=== PATIENT | male | born 1940 | race Caucasian/White ===

== ENCOUNTER 2022-11-09 10:54 | Outpatient (OUT) | payer MEDICARE, OTHER, SELFPAY ==
[2022-11-09 12:16] LABS: Prostate Specific Antigen Scrn 3.53 ng/mL (<=4.00)
== END 2022-11-09 10:55 | disposition home or self-care (01) ==
PROVIDERS: PCP Family Medicine; Visit Provider Family Medicine
DX: R97.20 Elevated prostate specific antigen [PSA] (principal); Z12.5 Encounter for screening for malignant neoplasm of prostate
CPT/HCPCS: 36415; G0103

== ENCOUNTER 2023-11-19 11:34 | Outpatient (OUT) | payer MEDICARE, OTHER, SELFPAY ==
[2023-11-19 12:33] LABS: Anion Gap 10.9; BUN Creatinine Ratio 21.4; Calcium 8.9 mg/dL (8.5-10.1); Carbon Dioxide 28.5 mmol/L (21.0-32.0); Chloride 104 mmol/L (98-107); Estimated GFR (African America >60 (>=60); Estimated GFR (Non-African Ame 55 (>=60); Glucose 99 mg/dL (74-106); Potassium 4.4 mmol/L (3.5-5.1); Sodium 139 mmol/L (136-145)
[2023-11-19 12:52] LABS: Prostate Specific Antigen Scrn 4.94 ng/mL (<=4.00)
== END 2023-11-19 11:35 | disposition home or self-care (01) ==
LOC: LAB 11:37
PROVIDERS: PCP Family Medicine; Visit Provider Family Medicine
DX: Z12.5 Encounter for screening for malignant neoplasm of prostate (principal); I10 Essential (primary) hypertension
CPT/HCPCS: 36415; 80048; G0103

== ENCOUNTER 2024-12-08 10:12 | Outpatient (OUT) | payer MEDICARE, OTHER, SELFPAY ==
--- OUTSIDE RECORDS SUMMARY | 2019-09-27 06:30 | XMS_ITS | Continuity of Care Document ---
Author Organization [facility] Address [address] [place] [address] Phone Care Team Providers Care Paper Control Clerk Name Role Phone Rohan Cross MD Unavailable [...] Procedure Date OCT Retina Offic/outpt E&m [facility] Advance Directives Directive Yes / No Effective Date File Name No Information Encounters Encounter Description Practice Location Reason(s) For Visit Diagnoses Date Provider Providers Copied on Encounter Offic/outpt E&m [facility], [address], [place], [place], [id number], [place] tel:[phone] [facility] blurry vision (chief complaint) Unspecified visual field defectsVisual discomfort, left eyePuckering of macula, right eyeBenign neoplasm of left choroid Tay Madrigal. [address], [place], [address], [place]. tel:[phone] Specialist: Aure Coy OD, [address] [place], [address]. tel:[phone] ring Provider: Rohan Ingram, [address], [place], [address]. tel:[phone] Family History Family Member Type Diagnosis Age At Onset Father Problem (finding) prostate cancer Payers Payer name Insurance type Covered republican ID James vernon(s) Medicare Marissa GARCIAS [id number] Medical [place] [id number] Social History Type Description Quantity Date Captured Comments Alcohol Use Details No Caffeine Use Details No Tobacco Use Status Current non-smoker 20 Smoking Status Never smoker Non-Smoking Tobacco Use Details : No Details Available : No Details Available Sex Male Vital Signs Date / Time: Height Weight [...]
--- OUTSIDE RECORDS SUMMARY | 2024-06-28 12:03 | XMS_ITS ---
Author Organization [facility] [place] Address [address] [place] [address] Care Team Providers Care Certified Registered Nurse Anesthetist Name Role Phone Raegan Walker Primary Care Provider Bladimir Fischer [phone] REASON FOR VISIT SALES REPRESENTATIVES-Appointment Referral Encounters Encounter Location Date Provider Diagnosis Pulmonary Medicine [address] [address] 06/28/2024 Bladimir Carrillo Plan Of Treatment No Information Progress Notes * Troy OLIVARES LDOB:[birth year] (84 yo M)Acc No.[id number]:06/28/2024 Patient: Ida AMINYuriyTroy :1940 A ge:84 Y S ex:Male Address:[address] [address] * true * Date: Generated for Deny pacheco/Zuleika/eTransmitting on: 0 12/08/2024 10:20 AM EDT
--- OUTSIDE RECORDS SUMMARY | 2024-07-12 06:00 | XMS_ITS ---
Author Organization [facility] [place] Address [address] [place] [address] Care Team Providers Care Supervisor Frame Sample And Pattern Name Role Phone Raegan Walker Primary Care Provider Bladimir Fischer Unavailable [phone] Allergies Allergen (clinical drug ingredient) Drug/Non Drug Allergy documented on EMR Reaction Allergy Type Onset Date Status Sulfacet-R unknown Drug Allergy Active indomethacin Indomethacin unknown Drug Allergy A ctive trimethoprim Trimethoprim unknown Drug Allergy A ctive REASON FOR VISIT MULTIPLE COIL WINDER-COUGH Medications Medication SIG (Take, Route, Frequency, Duration) Notes Start Date End Date Status Xarelto 20 MG TAKE 1 TABLET BY UMNA TH DAILY with supper Oral for 90 Days Active FeroSul 325 (65 Fe) MG TAKE 1 TABLET BY MOUTH DAILY with BREAKFAST Oral for 30 Days Active Furosemide 20 MG TAKE 1 TABLET BY MUNA TH DAILY Oral for 90 Days Active Atorvastatin Calcium 10 MG TAKE 1 TABLET BY MOUTH DAILY Oral for 30 Days Active Esomeprazole Magnesium 20 MG 1 capsule 1/2 to 1 hour before morning meal Orally Once a day Active Allopurinol 300 MG Oral for 90 Days Active Clotrimazole-Betamethason e 1-0.05 % APPLY topically TWICE DAILY FOR 7 DAYS External for 7 Days Not-Taking amLODIPine Besylate 2.5 MG Oral for 74 Days Active Latanoprost 0.005 % INSTILL 1 DROP IN [place] TH EYES once a day IN THE EVENING Ophthalmic for 75 Days Not-Taking Cephalexin 500 MG TAKE 1 CAPSULE BY MO UTH TWICE DAILY Oral for 5 Days Not-Taking Albuterol Sulfate (2.5 MG/3ML) 0.083% INHALE 2.5ml's EVERY 4 TO 6 HOURS NEEDED SHORTNESS OF BREATH or FOR WHEEZING Inhalation for 6 Days Not-Taking Albuterol Sulfate HFA 108 (90 Base) MCG/ACT Inhalation for 17 Days Not-Taking Social History Tobacco Use: Social History Observation Description Date Details (start date - stop date) Never Smoker NA - NA Tobacco Control (Standard) Question Answer Notes Tobacco use: Nonsmoker Problems Problem Type SNOMED Code ICD Code Onset Dates Problem Status W/U Status Risk Notes Problem Coronary artery disease (42309711) CAD (coronary artery disease) (I25.10) Active confirmed Problem Gastroesophageal reflux disease (579332833) GERD (gastroesophage al reflux disease) (K21.9) Active confirmed Problem Hiatal hernia (88475806) Hiatal hernia (K44.9) Active confirmed Problem Iron deficiency anemia (07161048) GUS (iron deficiency anemia) (D50.9) Active confirmed Problem Alvares's esophagus (772373027) Alvares's esophagus (K22.70) Active confirmed Problem Chronic atrial fibrillation (962583723) Chronic atrial fibrillation (I48.20) Active confirmed Vital Signs Weight 192.4 lbs 07/12/2024 Height 70 in 07/12/2024 Blood pressure systolic 114 mm Hg 07/13/19 25 Blood pressure diastolic 71 mm Hg 025 Temperature 96.9 degrees Fahrenheit 07/13/19 25 Heart Rate 59 /min 07/12/2024 Respiratory Rate 16 /min 07/12/2024 BMI 27.6 kg/m2 07/12/2024 Oximetry 97 % 07/12/2024 Encounters Encounter Location Date Provider Diagnosis [facility] [address] [place] [address] 07/12/2024 Bladimir Carrillo Chronic cough R05.3 ; Abnormal CXR (chest x-ray) R93.89 ; Hiatal hernia K44.9 ; Chronic atrial fibrillation I48.20 ; GUS (iron deficiency anemia) D50.9 and CAD (coronary artery disease) I25.10 Assessments Encounter Date Diagnosis (ICD Code) Assessment Notes Treatment Notes Treatment Clinical Notes Section Notes 07/12/2024 Chronic cough (ICD-10 - R05.3) Patient complains of a cough off & on for years, mainly during the winter months, which he believes it is exacerbated by sinus congestion and drainage. Has not seen ENT. No allergy testing. Only nasal spray used is saline - denies Flonase or other medications. Explained to patient that there are several possibilities to explain his cough - undiagnosed asthma, allergic rhinitis/upper airway cough syndrome, and GERD/LPR associated with hiatal hernia. I stated further w/up can be done at this point to evaluate for asthma (PFT). He refused this. I also suggested starting a maintenance nasal spray (recommend intranasal steroid such as Flonase), but he refused this too. I noted that allergy testing is another option, and this was refused as well. I brought up the abnormal CT abdomen & CXRs and recommended ordering a dedicated chest CT - this was refused as well. He asked about referral to ENT - I explained this can be done, but more likely than not, they are going to repeat what I said, with exception of additionally performing a nasolaryngoscopy. For now, he may return PRN. 07/12/2024 Abnormal CXR (chest x-ray) (ICD-10 - R93.89) CT abdomen/pelvis 07/12/2022 noted opacities in the RLL, with scarring on CXR 04/02/2024 & 06/23/2024. With chronic cough, recommended ordering a dedicated chest CT for further evaluation, but he refused. 07/12/2024 Hiatal hernia (ICD-10 - K44.9) Large hiatal hernia. GERD/LPR symptoms are controlled, per patient, with Nexium. 07/12/2024 Chronic atrial fibrillation (ICD-10 - I48.20) 07/12/2024 GUS (iron deficiency anemia) (ICD-10 - D50.9) 07/12/2024 CAD (coronary artery disease) (ICD-10 - I25.10) Plan Of Treatment Treatment Notes Assessment Notes Chronic cough Patient complains of a cough off & on for years, mainly during the winter months, which he believes it is exacerbated by sinus congestion and drainage. Has not seen ENT. No allergy testing. Only nasal spray used is saline - denies Flonase or other medications. Explained to patient that there are several possibilities to explain his cough - undiagnosed asthma, allergic rhinitis/upper airway cough syndrome, and GERD/LPR associated with hiatal hernia. I stated further w/up can be done at this point to evaluate for asthma (PFT). He refused this. I also suggested starting a maintenance nasal spray (recommend intranasal steroid such as Flonase), but he refused this too. I noted that allergy testing is another option, and this was refused as well. I brought up the abnormal CT abdomen & CXRs and recommended ordering a dedicated chest CT - this was refused as well. He asked about referral to ENT - I explained this can be done, but more likely than not, they are going to repeat what I said, with exception of additionally performing a nasolaryngoscopy. For now, he may return PRN. Abnormal CXR (chest x-ray) CT abdomen/pelvis 07/12/2022 noted opacities in the RLL, with scarring on CXR 04/02/2024 & 06/23/2024. With chronic cough, recommended ordering a dedicated chest CT for further evaluation, but he refused. Hiatal hernia Large hiatal hernia. GERD/LPR symptoms are controlled, per patient, with Nexium. Next Appt Details Follow Up: PRN, Reason: Progress Notes * Troy OLIVARES LDOB:[birth year] (84 yo M)Acc No.[id number]:07/12/2024 New Patient Patient: Troy LONG Provider: Sabina Carrillo DO :1940 A ge:84 Y S ex:Male Date:07/12/2024 Address:[address] [place], [place] [id number] Pcp:Raegan Walker Check In:09:44 AM ESTCheck O ut:10:22 AM EST Subjective: * Chief Complaints: * N P-COUGH * HPI: G eneral: NEW PATIENT 84yo male presents with history of cough. The referral we received was for a cough ongoing since 02/2024, but the patient states he has had a chronic cough for much longer. He admits to developing a cough about every winter, mostly associated with sinus congestion and postnasal drip.? It can be quite productive, filling up a small jar with sputum at times. He denies any dyspnea, chest tightness, or wheezing. He was prescribed Keflex and Medrol which has significantly helped. His secretions changed from greenish-brown to clear. He does not feel that he has any significant symptoms at this time. Reviewed his history. 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 Admits to having some increased symptoms when taking beans out of the storage bin - he believes it could have been the mold. Cannot recall any other exacerbating factors during his farming days. Never worked in a factory. No history. No pets, never had birds. Main hobby is woodworking. [place] dust particularly aggravates his symptoms - he wears a mask now which pretty much eliminates any symptoms around the dust. He denies ever having allergy testing. He is a lifelong non-smoker. No history of asthma or COPD. He has a large hiatal hernia. This used to aggravate him, but since starting Nexium, he denies any symptoms. He has had imaging in the past. CT abdomen/pelvis 07/12/2022 notes Airspace opacities in the right lower lung. C XR 04/29/2024 noted scarring in the right lung which remained unchanged on F/U CXR 06/23/2024. MA Intake Comments:. Patient is referred from Dr.Marcia Walker for a Cough.Patient reports having the cough for as long as he can remember. Patient states the cough was productive with green mucus. Patient reports the mucus to be clear now. Patient reports taking an ABX to clear up the green mucus. Patient believes this is related to his sinuses. Patient denies hemoptysis, fevers, chills, night sweats or SOB. Patient reports never being seen by Pulmonary in the past. Patient is a non-smoker but reports being a benitez his entire life. Patient is under the care of [facility]. * ROS: G eneral/Constitutional: Fever or sweats d enies. C hange of appetite d enies. C hills d enies. W eight Change d enies. H EENT: Dry mouth d enies. S ore throat d enies. O ral Ulcers d enies. P ost Nasal Drip N ot currently. C ongestion N ot currently. H oarseness D enies. C ardiovascular: Tachycardia d enies. E jing D enies. C hest pain d enies. P alpitations d enies. R espiratory: Chest tightness d enies. P leurisy D enies. D yspnea d enies. C ough F eels he has to clear his throat. H emoptysis d enies. W heezing d enies. G astrointestinal: Acid Reflux/GERD/Heartburn C ontrolled with Nexium. D ysphagia d enies. M usculoskeletal: Arthralgias/joint pain D enies. S kin: Easy bruising d enies. R laine d enies. ? N eurologic: Seizures d enies. T remor d enies. H ematology: Abnormal Bleeding d enies. P sychiatric: Anxiety d enies. * Active Problem List K21.9 GERD (gastroesophage al reflux disease) Modified On:07/12/2024U Status:confirmed I25.10 CAD (coronary artery disease) Modified On:07/12/2024U Status:confirmed K44.9 Hiatal hernia Modified On:07/12/2024U Status:confirmed D50.9 GUS (iron deficiency anemia) Modified On:07/12/2024U Status:confirmed K22.70 Alvares's esophagus Modified On:07/12/2024U Status:confirmed I48.20 Chronic atrial fibri llation Modified On:07/12/2024 Status:confirmed * Medical History: * Surgical History: L eft heart catheterization 4Right wrist 2022Finger 2018Bilateral shoulder arthroscopy 2010Right leg 1965Lumbar fusion 10/14/2020olonoscopy 2022Varicose vein sclerotherapy Tonsillectomy * Hospitalization/Major Diagno stic Procedure: D enies Past Hospitalization * Family History: B rupaler(s): Parkinsons. F ather: diagnosed with Prostate cancer. 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 D rugs/Alcohol: D rugs H ave you used drugs other than those for medical reasons in the past 12 months? N o D oes the Patient have a History of Drug Abuse in the Past? N o Caffeine I ntake: n one Do you drink alcohol?: No. Do you smoke marijuana?: Denies. * Medications: T akingAllopurinol 300 MG Tablet Oral amLODIPine Besylate 2.5 MG Tablet Oral Atorvastatin Calcium 10 MG Tablet TAKE 1 TABLET BY MOUTH DAILY Oral Esomeprazole Magnesium 20 MG Capsule Delayed Release 1 capsule 1/2 to 1 hour before morning meal Orally Once a day FeroSul(Ferrous Sulfate) 325 (65 Fe) MG Tablet TAKE 1 TABLET BY MOUTH DAILY with BREAKFAST Oral Furosemide 20 MG Tablet TAKE 1 TABLET BY MOUTH DAILY Oral Xarelto(Rivaroxaban) 20 MG Tablet TAKE 1 TABLET BY MOUTH DAILY with supper Oral Taking Allopurinol 300 MG Tablet Oral Taking amLODIPine Besylate 2.5 MG Tablet Oral Taking Atorvastatin Calcium 10 MG Tablet TAKE 1 TABLET BY MOUTH DAILY Oral Taking Esomeprazole Magnesium 20 MG Capsule Delayed Release 1 capsule 1/2 to 1 hour before morning meal Orally Once a day Taking FeroSul(Ferrous Sulfate) 325 (65 Fe) MG Tablet TAKE 1 TABLET BY MOUTH DAILY with BREAKFAST Oral Taking Furosemide 20 MG Tablet TAKE 1 TABLET BY MOUTH DAILY Oral Taking Xarelto(Rivaroxaban) 20 MG Tablet TAKE 1 TABLET BY MOUTH DAILY with supper Oral Not-Taking/PRNAlbuterol Sulfate (2.5 MG/3ML) 0.083% Nebulization Solution INHALE 2.5ml's EVERY 4 TO 6 HOURS NEEDED SHORTNESS OF BREATH or FOR WHEEZING Inhalation Albuterol Sulfate HFA 108 (90 Base) MCG/ACT Aerosol Solution Inhalation Cephalexin 500 MG Capsule TAKE 1 CAPSULE BY MOUTH TWICE DAILY Oral Clotrimazole-Betamethasone 1-0.05 % Cream APPLY topically TWICE DAILY FOR 7 DAYS External Latanoprost 0.005 % Solution INSTILL 1 DROP IN BOTH EYES once a day IN THE EVENING Ophthalmic Medication List reviewed and reconciled with the patientNot-Taking/PRN Albuterol Sulfate (2.5 MG/3ML) 0.083% Nebulization Solution INHALE 2.5ml's EVERY 4 TO 6 HOURS NEEDED SHORTNESS OF BREATH or FOR WHEEZING Inhalation Not-Taking/PRN Albuterol Sulfate HFA 108 (90 Base) MCG/ACT Aerosol Solution Inhalation Not-Taking/PRN Cephalexin 500 MG Capsule TAKE 1 CAPSULE BY MOUTH TWICE DAILY Oral Not-Taking/PRN Clotrimazole-Betamethasone 1-0.05 % Cream APPLY topically TWICE DAILY FOR 7 DAYS External Not-Taking/PRN Latanoprost 0.005 % Solution INSTILL 1 DROP IN BOTH EYES once a day IN THE EVENING Ophthalmic Medication List reviewed and reconciled with the patient * Allergies: I ndomethacin: unknown - AllergySulfacet-R: unknown - AllergyTrimethoprim: unknown - Allergyno[Allergies Verified] Objective: * Vitals: W t:192.4lbs, Ht:70in, BP:sittin/71mm Hg, Temp:Forehead:96.9F, HR:59/min, RR:16/min, BMI:27.6Index, Oxygen sat %:Room Air:97%, Ht-cm: 177.8 cm, Wt-k.27 kg. * Examination: E xam: GENERAL APPEARANCE: A ppears stated age. Skin N ormal. Mouth P ink and moist. Oropharynx M allampati Class III. Trachea M idline. Chest N ormal. Respiratory Normal M ovements, E ffort N ormal. Auscultation N o wheezes or rhonchi. Mildly scattered crackles in the right base - not classic dry crackles as heard in fibrosis. Cardiac I rregularly irregular. Gastrointestinal N ormal. Vascular N o edema. Musculoskeletal N ormal posture. Neurological F ocal, intact. Psychiatric A lert and oriented x3. Mentation/Cognition N ormal. Assessment: * Assessment: 1. C hronic cough - R05.3 (Primary) 2 . A bnormal CXR (chest x-ray) - R93.89 3 . H iatal hernia - K44.9 4 . C hronic atrial fibrillation - I48.20 5 . I DA (iron deficiency anemia) - D50.9 6 . C AD (coronary artery disease) - I25.10 Plan: * Treatment: 2. A bnormal CXR (chest x-ray) Notes: CT abdomen/pelvis 07/12/2022 noted opacities in the RLL, with scarring on CXR 04/02/2024 & 06/23/2024. With chronic cough, recommended ordering a dedicated chest CT for further evaluation, but he refused. 3. H iatal hernia Notes: Large hiatal hernia. GERD/LPR symptoms are controlled, per patient, with Nexium. * Procedure Codes: * Preventive Medicine: COVID Vaccination: H as patient had COVID Vaccination? COVID Vaccination Y es 01/04/2021 Immunization Status: P neumovacc p neumovacc -11/27/2015. I nfluenza 0 04/07/2024. Z ostivax 0 04/07/2024. B oostrix 1 . Screenings/Counseling: F ALL RISK SCREENING Fall Risk Assessment: N o falls in the past year Are you afraid of falling? N o T OBACCO ACTION PLAN Exclusion: M edical Reason Non Smoker Type of Medical Reason: N ot indicated B DE ACTION PLAN Above Normal BMI Follow-up D ietary management education, guidance, and counseling * Follow Up: P RN * * Sign off status: Completed Visit Status: C HK (Check Out) true * Provider: Sabina Carrillo DO Date: 0 07/12/2024 Generated for Deny pacheco/Zuleika/eTalmasmitting on: 0 12/08/2024 10:18 AM EDT History and Physical Notes * HPI (History of Present Illness) Category Sub-Category Detail Notes Category Not es General Patient is refe rred from Dr.Marcia Walker for a Cough.Patient reports having the cough for as long as he can remember. Patient states the cough was productive with green mucus. Patient reports the mucus to be clear now. Patient reports taking an ABX to clear up the green mucus. Patient believes this is related to his sinuses. Patient denies hemoptysis, fevers, chills, night sweats or SOB. Patient reports never being seen by Pulmonary in the past. Patient is a non-smoker but reports being a benitez his entire life. Patient is under the care of [facility] Cardiology. Examination Category Sub-Category Detail Notes Category Not es Exam GENERAL APPEARANCE: Appears stated age Skin Normal Mouth [place] and moist Trachea Midline Chest Normal Respiratory Normal Movements, Ef fort Normal Auscultation No wheezes or rhonch i. Mildly scattered crackles in the right base - not classic dry crackles as heard in fibrosis Cardiac Irregularly irregula r Gastrointestinal Normal Vascular No edema Musculoskeletal Normal posture Neurological Focal, intact Psychiatric Alert and oriented x 3 Mentation/Cognition Normal Oropharynx Mallampati Class III
--- OUTSIDE RECORDS SUMMARY | 2024-12-08 10:18 | XMS_ITS | Encounter Summary ---
Author Organization [facility] Address [address] [place] [address] Care Team Providers Care Zone Manager Name Role Phone Raegan Walker MD Primary Care Provider [phone] Source Comments In the event this information is protected by the Federal Confidentiality of Alcohol and Drug AbusePatient Records regulations: The Federal rules restrict any use of the information to criminally investigate or prosecute any alcohol or drug abuse patient.[facility] Encounter Details Date Type Department Care Team (Latest Contact Info) Description 06/26/2021 H&P External-NonCCF Provider, External, PA-C Do not enter address information under generic External Provider. Social History Tobacco Use Types Packs/Day Years Used Date Smoking Tobacco: Never Assessed Sex and Gender Information Value Date Recorded Sex Assigned at Not on file Legal Sex Male 12:50 PM EDT Gender Identity Not on file Sexual Orientation Not on file documented as of this encounter Plan of Treatment Not on file documented as of this encounter Visit Diagnoses Not on filedocumented in this encounter Care Teams Zone Manager Relationship Specialty Start Date End Date Raegan Walker MD [address] [place] [address] PCP - General Family Medicine 06/26/21 documented as of this encounter
--- OUTSIDE RECORDS SUMMARY | 2024-12-08 10:18 | XMS_ITS | Encounter Summary ---
Author Organization [facility] Address [address], [address] [place] [address] Care Team Providers Care Kennel Hand Name Role Phone Raegan Walker MD Primary Care Provider [phone] Encounter Details Date Type Department Care Team (Late st Contact Info) Description 02/16/2024 Orders Only [facility] UROLOGY Part of [address] [place] [address] Provider, MD Gerardo Social History Tobacco Use Types Packs/Day Years Used Date Smoking Tobacco: Never Smokeless Tobacco: Never Alcohol Use Standard Drinks/Week Comments No 0 (1 standard drink = 0.6 oz pur e alcohol) AUDIT-C Answer Date Recorded Q1: How often do you have a drink containing alcohol? Never 03/29/2023 Q2: How many drinks containi ng alcohol do you have on a typical day when you are drinking? Patient does not drink Q3: How often do you have si x or more drinks on one occasion? Never 03/29/2023 Interpersonal Safety Domain Source: IP Abuse Scr eening Answer Date Recorded Read-Only, Retired: Physical Abuse Denies 11/15/2022 Read-Only, Retired: Verbal Abuse Denies 11/15/2022 Read-Only, Retired: Emotional abuse Denies 11/15/2022 Read-Only, Retired: Financial Abuse Denies 11/15/2022 Read-Only, Retired: Sexual abuse Denies 11/15/2022 Sex and Gender Information Value Date Recorded Sex Assigned at Male 03/29/2023 12:10 PM EST Legal Sex Male 9:49 PM EST Gender Identity Male 03/29/2023 12:10 PM EST Sexual Orientation Straight 03/29/2023 12 :10 PM EST documented as of this encounter Plan of Treatment Upcoming Encounters Date Type Department Care Team (Late st Contact Info) Description 04/28/2025 9:30 AM EST Office Visit [facility] Patient Care Technician [address] [place] [address] Miesha Clark, DRUG ENFORCEMENT ADMINISTRATION AGENT - SEWING MACHINE OPERATOR PLASTIC ZIPPER [address] [place] [address] 1 year follow up labs ekg cxr 08/16/2025 10:00 AM EDT Office Visit [facility] UROLOGY Part of [address] [place] [address] Tuyet Obrien, DRUG ENFORCEMENT ADMINISTRATION AGENT - SEWING MACHINE OPERATOR PLASTIC ZIPPER [address] [place] [address] [address] [place] [address] 1 year PSA documented as of this encounter Procedures Procedure Name Priority Date/Time Associated Diagnosis Comments PSA SCREENING Routine 11/09/2022 2:21 PM EDT documented in this encounter Results * PSA Screening (11/09/2022 2:21 PM EDT) Blood BLOOD SPECIMEN / Unknown us Historical Provider CHEMISTRY ORDERABLES Liza l Result documented in this encounter Visit Diagnoses Not on filedocumented in this encounter Additional Health Concerns Assessment Noted Time A Body Mass Index follow-up plan has been documented for the patient 12/06/2021 1:41 PM EDT documented as of this encounter Care Teams Kennel Hand Relationship Specialty Start Date End Date Raegan Walker MD PCP - General Family Medicine 09/18/19 documented as of this encounter
--- OUTSIDE RECORDS SUMMARY | 2024-12-08 10:18 | XMS_ITS | Encounter Summary ---
Author Organization [facility] Address [address] [place], [place] [address] Care Team Providers Care Manager Office Name Role Phone Raegan Walker MD Primary Care Provider [phone] Source Comments In the event this information is protected by the Federal Confidentiality of Alcohol and Drug AbusePatient Records regulations: The Federal rules restrict any use of the information to criminally investigate or prosecute any alcohol or drug abuse patient.[facility] Encounter Details Date Type Department Care Team ([facility] st Contact Info) Description 06/27/2021 Abstract Hematology/Oncology [address] [place] [address] [place] [address] Ketan Manzanares MD [address] [place] [address] Social History Tobacco Use Types Packs/Day Years [...] on filedocumented in this encounter Care Teams Manager Office Relationship Specialty Start Date End Date Raegan Walker MD [address] [place] [address] PCP - General Family Medicine 06/26/21 documented as of this encounter
--- OUTSIDE RECORDS SUMMARY | 2024-12-08 10:18 | XMS_ITS | Encounter Summary ---
Author Organization [facility] Address [address], [address] [place] [address] Care Team Providers Care Entry Level Account Manager Name Role Phone Raegan Walker MD Primary Care Provider [phone] Reason for Referral * Imaging (Routine) - Closed Specialty Diagnoses / Procedures Referred By Contac t Referred To Contact Radiology Diagnoses Cervical pain Procedures MRI CERVICAL SPINE WO CONTRAST Norman Michelle MD [address] [place] [address] Phone: tel: fax: Referral ID Status Reason Start Date Expiration Date Visits Re quested Visits Authorized [id number] Closed 05/15/2023 05/14/2024 1 1 Encounter Details Date Type Department Care Team (Latest Contact Info) Description 05/15/2023 Transcribe Orders [facility] [address] [place], [place] [id number] Norman Michelle MD [address] [place] [address] Cervical pain (Primary Dx) Social History Tobacco Use Types Packs/Day Years [...] Description 04/28/2025 9:30 AM EST Office Visit [facility] Hip Hop Dance Instructor [address] [place] [address] Miesha Clark APRN - GROUP EXERCISE MANAGER [address] [place] [address] 1 year follow up labs ekg cxr 08/16/2025 10:00 AM EDT Office Visit [facility] Part of [address] [place] [address] Tuyet Obrien, WINE PASTEURIZER - GROUP EXERCISE MANAGER [address] [place] [address] [address] [place] [address] 1 year PSA documented as of this encounter Results * MRI CERVICAL SPINE WO CONTRAST (05/26/2023 3:16 PM EST) Anatomical Region Laterality Modality C-spine, T-spine, Neck Magnetic Resonance 05/26/2023 8:44 PM EST Impressions 05/26/2023 8:47 PM EST Multilevel degenerative changes worst at C6-C7. Narrative 05/26/2023 8:47 PM EST EXAMINATION: MRI OF THE CERVICAL SPINE WITHOUT CONTRAST 05/26/2023 3:16 pm TECHNIQUE: Multiplanar multisequence MRI of the cervical spine was performed without the administration of intravenous contrast. COMPARISON: None. HISTORY: ORDERING SYSTEM PROVIDED HISTORY: Cervical pain FINDINGS: BONES/ALIGNMENT: There is normal alignment of the spine. The vertebral body heights are maintained. The bone marrow signal appears unremarkable. Grade 1 retrolisthesis of C6 on C7. SPINAL CORD: No abnormal cord signal is seen. SOFT TISSUES: No paraspinal mass identified. C2-C3: There is no significant disc protrusion, spinal canal stenosis or neural foraminal narrowing. C3-C4: Small central protrusion. Right greater than left facet hypertrophy. Moderate right and mild to moderate left foraminal stenosis. C4-C5: Left greater than right facet hypertrophy. Mild bilateral foraminal stenosis. C5-C6: Eifyi-jybbbnx-lyfk-left facet hypertrophy. Disc osteophyte complex effacing the ventral thecal sac. Mild spinal canal stenosis. Moderate right greater than left foraminal stenosis. C6-C7: Complete loss of disc space height. Disc osteophyte complex flattening the ventral surface of the cord. Mild spinal canal stenosis. Moderate left greater than right foraminal stenosis. C7-T1: There is no significant disc protrusion, spinal canal stenosis or neural foraminal narrowing. Procedure Note Rigoberto Solorzano MD - 05/26/2023 EXAMINATION: MRI OF THE CERVICAL SPINE WITHOUT CONTRAST 05/26/2023 3:16 pm TECHNIQUE: Multiplanar multisequence MRI of the cervical spine was performed withoutthe administration of intravenous contrast. COMPARISON: None. HISTORY: ORDERING SYSTEM PROVIDED HISTORY: Cervical pain FINDINGS: BONES/ALIGNMENT: There is normal alignment of the spine. The vertebralbody heights are maintained. The bone marrow signal appears unremarkable.Grade 1 retrolisthesis of C6 on C7. SPINAL CORD: No abnormal cord signal is seen. SOFT TISSUES: No paraspinal mass identified. C2-C3: There is no significant disc protrusion, spinal canal stenosis or neural foraminal narrowing. C3-C4: Small central protrusion. Right greater than left facethypertrophy. Moderate right and mild to moderate left foraminal stenosis. C4-C5: Left greater than right facet hypertrophy. Mild bilateralforaminal stenosis. C5-C6: Jbftd-ofxhkzg-cpep-left facet hypertrophy. Disc osteophytecomplex effacing the ventral thecal sac. Mild spinal canal stenosis. Moderateright greater than left foraminal stenosis. C6-C7: Complete loss of disc space height. Disc osteophyte complex flattening the ventral surface of the cord. Mild spinal canal stenosis. Moderate left greater than right foraminal stenosis. C7-T1: There is no significant disc protrusion, spinal canal stenosis or neural foraminal narrowing. IMPRESSION: Multilevel degenerative changes worst at C6-C7. us Norman Michelle MD IMG MRI ORDERABLES Final Result documented in this encounter Visit Diagnoses Diagnosis Cervical pain- Primary Cervicalgia Cervical pain Cervicalgia documented in this encounter Additional Health Concerns Assessment Noted Time A Body Mass Index follow-up plan has been documented for the patient 12/06/2021 1:41 PM EDT documented as of this encounter Care Teams Entry Level Account Manager Relationship Specialty Start Date End Date Raegan Walker MD PCP - General Family Medicine 09/18/19 documented as of this encounter
--- OUTSIDE RECORDS SUMMARY | 2024-12-08 10:18 | XMS_ITS | Encounter Summary ---
Author Organization [facility] Address [address], [address] [place] [address] Care Team Providers Care Informatics Educator Name Role Phone Raegan Walker MD Primary Care Provider Encounter Details Date Type Department Care Team (Late st Contact Info) Description 11/24/2024 Telephone QA on Request Clinical Project Leader [address] [place] [address] Wing Miller MD [address] [id number] Social History Tobacco Use Types Packs/Day Years Used Date Smoking Tobacco: Never Smokeless Tobacco: Never Alcohol Use Standard Drinks/Week Comments No 0 (1 standard drink = 0.6 oz pur e alcohol) AUDIT-C Answer Date Recorded Q1: How often do you have a drink containing alcohol? Never 03/14/2024 Q2: How many drinks containi ng alcohol do you have on a typical day when you are drinking? Patient does not drink Q3: How often do you have si x or more drinks on one occasion? Never 03/14/2024 Interpersonal Safety Domain Source: IP Abuse Scr [...] Description 04/28/2025 9:30 AM EST Office Visit [facility] Clinical Project Leader [address] [place] [address] Miesha Clark, CARD TAPE CONVERTER OPERATOR - SERVICE TRAINER [address] [place] [address] 1 year follow up labs ekg cxr 08/16/2025 10:00 AM EDT Office Visit [facility] Part of [address] [place] [address] Tuyet Obrien, CARD TAPE CONVERTER OPERATOR - SERVICE TRAINER [address] [place] [address] [address] [place] [address] 1 year PSA documented as of this encounter Visit Diagnoses Not on filedocumented in this encounter Additional Health Concerns Assessment Noted Time A Body Mass Index follow-up plan has been documented for the patient 12/06/2021 1:41 PM EDT documented as of this encounter Care Teams Informatics Educator Relationship Specialty Start Date End Date Raegan Walker MD PCP - General Family Medicine 09/18/19 documented as of this encounter
--- OUTSIDE RECORDS SUMMARY | 2024-12-08 10:18 | XMS_ITS | Encounter Summary ---
Author Organization [facility] Address [address] [facility] [place] [address] Care Team Providers Care Nailing Machine Operator Automatic Name Role Phone Raegan Walker MD Primary Care Provider [phone] Raegan Walker MD Primary Care Provider [phone] Raegan Walker MD Primary Care Provider [phone] Encounter Details Date Type Department Care Team (Late st Contact Info) Description 10/18/2022 Abstract [facility] [address] [place] [address] Juan C Gusman DPM [address] [place] [address] Social History Tobacco Use Types Packs/Day Years Used Date Smoking Tobacco: Never Smokeless Tobacco: Never Alcohol Use Standard Drinks/Week Comments Never 0 (1 standard drink = 0.6 oz pur e alcohol) Sex and Gender Information Value Date Recorded Sex Assigned at Not on file Legal Sex Male 6:49 PM EDT Gender Identity Not on file Sexual Orientation Not on file documented as of this encounter Plan of Treatment Upcoming Encounters Date Type Department Care Team (Late st Contact Info) Description 01/27/2025 9:15 AM EDT Procedure Visit [facility] [address] [place] [address] Juan C Gusman DPM [address] [place] [address] 03/11/2025 7:50 AM EST Office Visit [facility] [address] [place] [address] Natalie Cox, PA [address] [facility] [address] [place] [address] documented as of this encounter Visit Diagnoses Not on filedocumented in this encounter Care Teams Nailing Machine Operator Automatic Relationship Specialty Start Date End Date Raegan Walker MD PCP - General Family Medicine 10/18/22 07/14/24 Raegan Walker MD PCP - General Family Medicine 07/15/24 07/28/24 Raegan Walker MD [address] [place] [address] PCP - General Family Medicine 07/29/24 documented as of this encounter
--- OUTSIDE RECORDS SUMMARY | 2024-12-08 10:18 | XMS_ITS | Clinical Summary ---
Author Organization [facility] Address [address] [place] [address] Care Team Providers Care Bending Roll Hand Name Role Phone Raegan Walker MD Primary Care Provider Allergies Active Allergy Reactions Criticality Noted Date Comments Sulfamethoxazole-Trimethoprim Unknown 2021 Indomethacin Unknown 06/27/2021 Medications rivaroxaban (XARELTO) 20 mg tablet Take 20 mg by mouth daily with dinner. Active allopurinol (ZYLOPRIM) 300 mg tablet Take 300 mg by mouth once daily. Active meloxicam (MOBIC) 15 mg tablet Take 15 mg by mouth once daily. Active furosemide (LASIX) 20 mg tablet Take 20 mg by mouth once daily. Active fluticasone/umec lidin/vilanter (TRELEGY ELLIPTA INHALATION) Inhale as instructed. Active ferrous sulfate 325 mg (65 mg iron) tablet Take 325 mg by mouth. 12/18/2020 Active Omeprazole Magnesium 20 mg tablet Take 20 mg by mouth. Active spironolactone (ALDACTONE) 25 mg tablet Take 1 tablet by mouth once daily. 12/14/2020 Active CALCIUM ORAL Take by mouth. Active esomeprazole (NEXIUM) 20 mg capsule Take 20 mg by mouth DAILY (6 AM). Active Social History Tobacco Use Types Packs/Day Years Used Date Smoking Tobacco: Never Smokeless Tobacco: Never Alcohol Use Standard Drinks/Week Comments Not Currently 0 (1 standard drink = 0.6 oz pur e alcohol) Sex and Gender Information Value Date Recorded Sex Assigned at Not on file Legal Sex Male 12:50 PM EDT Gender Identity Not on file Sexual Orientation Not on file Last Filed Vital Signs Vital Sign Reading Time Taken Comments Blood Pressure 134/64 07/02/2021 10:53 AM EDT Pulse 65 07/02/2021 10:53 AM EDT Temperature 36.2 C (97.2 F) 07/02/2021 10:53 AM EDT Respiratory Rate 16 07/02/2021 10:5 3 AM EDT Oxygen Saturation 99% 07/02/2021 10: 53 AM EDT Inhaled Oxygen Concentration - - Weight 94.7 kg (208 lb 12.8 oz) 022 10:53 AM EDT Height 190 cm (6' 2.8 ) 07/02/2021 10:5 3 AM EDT Body Mass Index 26.24 07/02/2021 10:53 AM EDT Plan of Treatment Health Maintenance Due Date Last Done Comments Anxiety Screening 1958 Depression Screening 1958 Pneumococcal Vaccine: 50+ (1 of 1 - PCV) 1991 Shingrix Vaccine (1 of 2) 1991 RSV Vaccine (1 - 1-dose 75+ series) 2016 Advance Directive Discussion 03/31/2024 Diabetes Screening 07/02/2024 07/02/2021, 0 12/14/2020, 10/20/2020, Additional history exists Influenza Vaccine (#1) 2024 DTaP,Tdap,Td Vaccine (2 - Td or Tdap) 12/29/2025 12/30/2015 Procedures Procedure Name Priority Date/Time Associated Diagnosis Comments COMPREHENSIVE METABOLIC PANEL Routine 07/02/2021 10:49 AM EDT Normocytic anemia from Last 3 Months or Most Recently Relevant to Health Maintenance Results * (ABNORMAL) COMP METABOLIC PANEL (07/02/2021 10:49 AM EDT) Protein, Total 7.6 6.3 - 8.0 g/dL 07/02/2021 11:27 AM EDT [facility] Albumin 4.5 3.9 - 4.9 g/dL 07/02/2021 11:27 AM EDT [facility] Calcium, Total 9.7 8.5 - 10.2 mg/dL 07/02/2021 11:27 AM EDT [facility] Bilirubin, Total 0.5 0.2 - 1.3 mg/dL 07/02/2021 11:27 AM [facility] Alkaline Phosphatase 130(H) 38 - 113 U/L 07/02/2021 11:27 AM [facility] AST 20 14 - 40 U/L 07/02/2021 11:27 AM [facility] ALT 13 10 - 54 U/L 07/02/2021 11:27 AM [facility] Glucose 107(H) 74 - 99 mg/dL 07/02/2021 11:27 AM [facility] Comment: The [place] Diabetes Association (ADA) provides guidance for cutoff values for fasting glucose and random glucose. The ADA defines fasting as no caloric intake for at least 8 hours. Fasting plasma glucose results between 100 to 125 mg/dL indicate increased risk for diabetes (prediabetes). Fasting plasma glucose results greater than or equal to 126 mg/dL meet the criteria for diagnosis of diabetes. In the absence of unequivocal hyperglycemia, results should be confirmed by repeat testing. In a patient with classic symptoms of hyperglycemia or hyperglycemic crisis, random plasma glucose results greater than or equal to 200 mg/dL meet the criteria for diagnosis of diabetes. Reference: Standards of Medical Care in Diabetes 2016, [place] Diabetes Association. Diabetes Care. 2016.39(Suppl 1). BUN 22 9 - 24 mg/dL 07/02/2021 11:27 AM [facility] Creatinine 1.17 0.73 - 1.22 mg/dL 07/02/2021 11:27 AM [facility] Sodium 138 136 - 144 mmol/L 07/02/2021 11:27 AM [facility] Potassium 4.1 3.7 - 5.1 mmol/L 07/02/2021 11:27 AM [facility] Chloride 102 97 - 105 mmol/L 07/02/2021 11:27 AM [facility] CO2 27 22 - 30 mmol/L 07/02/2021 11:27 AM [facility] Anion Gap 9 9 - 18 mmol/L 07/02/2021 11:27 AM EDT [facility] Estimated Glomerular Filtration Rate 63 >=60 mL/min/1. 73m 07/02/2021 11:27 AM EDT [facility] Comment:Estimated Glomerular Filtration Rate (eGFR) is calculated using the 2020 CKD-EPI creatinine equation. This equation utilizes serum creatinine, sex, and age as parameters. The creatinine assay has traceable calibration to isotope dilution- mass spectrometry. Refer to KDIGO guidelines for clinical interpretation. In patients with unstable renal function, e.g. those with acute kidney injury, the eGFR may not accurately reflect actual GFR. Blood BLOOD SPECIMEN / Unknown Venipuncture / Unknown 07/02/2021 10:49 AM EDT 07/02/2021 10:49 AM EDT Ketan Manzanares MD LABORATORY Final Result [facility] [address] [place] [phone] from Last 3 Months or Most Recently Relevant to Health Maintenance Insurance MEDICARE [id number] [place] [address] MEDICARE SUPPLEMENT Care Teams Bending Roll Hand Relationship Specialty Start Date End Date Raegan Walker MD [address] [place] [address] PCP - General Family Medicine 06/26/21
--- OUTSIDE RECORDS SUMMARY | 2024-12-08 10:19 | XMS_ITS | Encounter Summary ---
Author Organization [facility] Address [address] [place] [address] Care Team Providers Care Fur Sorter Name Role Phone Raegan Walker MD Primary Care Provider [phone] Encounter Details Date Type Department Care Team (Late st Contact Info) Description 01/23/2024 Prep for Surgery [facility] Provider Cardiology [address] [place] [address] Ginnylynsey, Srinivas Pelaez MD [address] [place] [address] Social History Tobacco Use Types Packs/Day Years Used Date Smoking Tobacco: Never Alcohol Use Standard Drinks/Week Comments No 0 (1 standard drink = 0.6 oz pur e alcohol) Sex and Gender Information Value Date Recorded Sex Assigned at Not on file Legal Sex Male 12:52 PM EDT Gender Identity Not on file Sexual Orientation Not on file documented as of this encounter Plan of Treatment Not on file documented as of this encounter Visit Diagnoses Not on filedocumented in this encounter Care Teams Fur Sorter Relationship Specialty Start Date End Date Raegan Walker MD [address] [place] [address] [place] [address] PCP - General Family Medicine 12/30/15 documented as of this encounter
--- OUTSIDE RECORDS SUMMARY | 2024-12-08 10:19 | XMS_ITS | Patient Health Record ---
Author Organization [facility] [place] Address [address] [place] [address] Care Team Providers Care Pari Mutuel Clerk Name Role Phone Raegan Walker Primary Care Provider Bladimir Fischer [phone] Allergies Allergen (clinical drug ingredient) Drug/Non Drug Allergy documented on EMR Reaction Allergy Type Onset Date Status Sulfacet-R unknown Drug Allergy Active indomethacin Indomethacin unknown Drug Allergy A ctive trimethoprim Trimethoprim unknown Drug Allergy A ctive Reason For Referral No Information Medications Medication SIG (Take, Route, Frequency, Duration) Notes Start Date End Date Status Xarelto 20 MG TAKE 1 TABLET BY MUNA TH DAILY with supper Oral for 90 Days Active Albuterol Sulfate (2.5 MG/3ML) 0.083% INHALE 2.5ml's EVERY 4 TO 6 HOURS NEEDED SHORTNESS OF BREATH or FOR WHEEZING Inhalation for 6 Days Not-Taking FeroSul 325 (65 Fe) MG TAKE 1 [...] THE EVENING Ophthalmic for 75 Days Not-Taking Albuterol Sulfate HFA 108 (90 Base) MCG/ACT Inhalation for 17 Days Not-Taking Cephalexin 500 MG TAKE 1 CAPSULE BY [facility] TWICE DAILY Oral for 5 Days Not-Taking Immunizations Vaccine Route Administration Date Status Comme nts Flu, Fluad (43851) 65 yrs + High Dose Seasonal (1651-0143) Unknown 04/07/2024 Administered Pneumococcal (Pneumovax 23) Unknown 11/27/2015 Administ ered SARS-COV-2 (COVID 19 Pfizer 30mcg/0.3mL) Unknown 01/04/2021 Administered Tdap (Boostrix) Unknown 12/30/2015 Administered ZOSTER (SHINGLES) VACCINE (HZV) Unknown 04/07/2024 Admi nistered Social History Tobacco Use: Social History Observation Description Date Details (start date - stop date) Never Smoker NA - NA Tobacco Control (Standard) Question Answer Notes Tobacco use: Nonsmoker Problems Problem Type SNOMED Code ICD Code Onset Dates Problem Status W/U Status Risk Notes Problem Gastroesophageal reflux disease (563512615) GERD (gastroesophage al reflux disease) (K21.9) Active confirmed Problem Coronary artery disease (58714428) CAD (coronary artery disease) (I25.10) Active confirmed Problem Hiatal hernia (04228804) Hiatal hernia (K44.9) Active confirmed Problem Iron deficiency anemia (12326212) GUS (iron deficiency anemia) (D50.9) Active confirmed Problem Alvares's esophagus (973380639) Alvares's esophagus (K22.70) Active confirmed Problem Chronic atrial fibrillation (723433297) Chronic atrial fibrillation (I48.20) Active confirmed Vital Signs Heart Rate 59 /min 07/12/2024 Temperature 96.9 degrees Fahrenheit 07/12/2024 Respiratory Rate 16 /min 07/12/2024 Oximetry 97 % 07/12/2024 Blood pressure diastolic 71 mm Hg 07/12/2024 Height 70 in 07/12/2024 Blood pressure systolic 114 mm Hg 07/12/2024 Weight 192.4 lbs 07/12/2024 BMI 27.6 kg/m2 07/12/2024 Encounters Encounter Location Date Provider Diagnosis [facility] [address] [place] [address] 07/12/2024 Bladimir Carrillo Chronic cough R05.3 ; Abnormal CXR (chest x-ray) R93.89 ; Hiatal hernia K44.9 ; Chronic atrial fibrillation I48.20 ; GUS (iron deficiency anemia) D50.9 and CAD (coronary artery disease) I25.10 [facility] [address] [place] [address] 06/28/2024 Bladimir Carrillo Assessments Encounter Date Diagnosis (ICD Code) Assessment [...] disease) (ICD-10 - I25.10) Plan Of Treatment No Information Insurance Providers Payer Name Payer Address Payer Phone Subscriber Number Group Number Insured Name Patient Relationship to Insured Coverage Start Date Coverage End Date MEDICARE [place] [address] [phone] [id number] MarelyTroy shaw Self - patient is the insured 7 MMO MEDICARE SUPPLEMENT [address] [place] [address] [id number] MarelyTroy shaw Self - patient is the insured Medical (General) History Medical History History ICD Code CAD (coronary artery disease) I25.10 Chronic atrial fibrillation I48.20 HTN (hypertension) I10 Alvares's esophagus K22.70 Hiatal hernia K44.9 GERD (gastroesophageal reflux disease) K 21.9 GUS (iron deficiency anemia) D50.9 Gout M10.9 Bilateral cataracts H26.9 History of skin cancer Z85.828 Surgical History Surgery Date(Month/Year) Left heart catheterization 01/23/2024 Right wrist 2022 Finger 2018 Bilateral shoulder arthroscopy 2009 Right leg 1965 Lumbar fusion 10/14/2020 Colonoscopy 2022 Varicose vein sclerotherapy Tonsillectomy
--- OUTSIDE RECORDS SUMMARY | 2024-12-08 10:19 | XMS_ITS | Clinical Summary ---
Author Organization [facility] Address [facility] [place] [address] Care Team Providers Care Fingerer Name Role Phone Raegan Walker MD Primary Care Provider [phone] Allergies No known active allergies Medications allopurinoL (ZYLOPRIM) 300 MG tablet Take 1 (one) tablet (300 mg total) by mouth daily . Active aspirin 81 mg chewable tablet Chew and Swallow 1 (one) tablet (81 mg total) daily . 01/01/2024 Active cholecalciferol , vitamin D3, 50 mcg (2,000 unit) cap Take 2.5 (two and a half) capsules by mouth daily . 10/23/2021 Active furosemide (LASIX) 20 MG tablet Take 1 (one) tablet (20 mg total) by mouth daily . 10/23/2021 Active omeprazole 20 mg TbEC Take 1 (one) tablet (20 mg total) by mouth daily . Active Xarelto 20 mg Tab Take 1 (one) tablet (20 mg total) by mouth daily with dinner . Active atorvastatin (LIPITOR) 10 MG tablet Take 1 (one) tablet (10 mg total) by mouth daily . 30 tablet 11 01/23/2024 Active amLODIPine (NORVASC) 5 MG tablet Take 0.5 (one-half) tablet (2.5 mg total) by mouth daily . 15 tablet 11 01/23/2024 Active Active Problems No known active problems Encounters Date Type Department Care Team Description 10/05/2024 2:30 PM EDT Clinical Support [facility] Audiology [address] [facility] Office Building, [address]th [place] [address] Lizet Aden AuD Sensorineural hearing loss, bilateral (Primary Dx) 10/05/2024 1:45 PM EDT Office Visit [facility] [address] [place] [address] [place] [address] Sreedhar Zayas MD Sensorineural hearing loss, bilateral (Primary Dx); Impaired auditory discrimination, bilateral 10/05/2024 Travel from Last 3 Months Social History Tobacco Use Types Packs/Day Years [...] Sign Reading Time Taken Comments Blood Pressure 130/66 01/23/2024 12:25 PM EDT Pulse 65 01/23/2024 12:25 PM EDT Temperature 36.7 C (98 F) 10/05/2024 2:04 PM EDT Respiratory Rate 14 01/23/2024 8:28 AM EDT Oxygen Saturation 97% 01/23/2024 11:54 AM EDT Inhaled Oxygen Concentration - - Weight 93 kg (205 lb) 10/05/2024 2:04 PM EDT Height 188 cm (6' 2 ) 01/23/2024 8:28 AM EDT Body Mass Index 26.32 01/23/2024 8:28 AM EDT Plan of Treatment Health Maintenance Due Date Last Done Comments Medicare Wellness Visit 1944 Depression Screening/Follow- Up (PHQ-2/9) 1953 Falls Risk Assessment 2006 Respiratory Syncytial Virus Immunization: Risk, 60-74 Risk, or 75+ (1 - 1-dose 75+ series) 2016 COVID-19 Vaccine (2024-2 6 season) 2024 01/04/2021, 05/25/2020, 05/04/2020 Influenza Vaccine (#1) 2024 , 01/31/2023, 02/04/2022, Additional history exists Tetanus: Every 10yrs 12/29/2025 12/30/2015, 02/02/20 13 Pneumococcal Vaccine: Age 50+ Completed , 02/14/2020, 02/08/2019, Additional history exists Zoster Vaccines Completed 08/02/2024, 04/07/2024 Insurance MEDICARE PART A & B PART A CLAIMS [address] [address] [place] [address] [facility] Advance Directives For more information, please contact: [phone] * Full Code (Latest Code Status on File) Date Activated Date Inactivated Comments 01/23/2024 8:15 AM 01/23/2024 10:43 AM Care Teams Fingerer Relationship Specialty Start Date End Date Raegan Walker MD [facility] [facility] [place] [place] [address] [place] [address] PCP - General Family Medicine 12/30/15
--- OUTSIDE RECORDS SUMMARY | 2024-12-08 10:19 | XMS_ITS | Clinical Summary ---
Author Organization [facility] Healthcare Address [address] [place] [address] Care Team Providers Care First Beater Name Role Phone Raegan Walker MD Primary Care Provider [phone] Allergies Active Allergy Reactions Criticality Noted Date Comments Indomethacin Other 06/27/2021 Other reaction(s): Unknown Sulfa Antibiotics Unknown 10/17/2022 Trimethoprim Other 01/28/2024 Medications allopurinol (Zyloprim) 300 MG tablet 1 (one) time each day at the same time Active furosemide (Lasix) 20 MG tablet 1 (one) time each day at the same time Active esomeprazole (NexIUM) [address] capsule 1 capsule 1 (one) time each day at the same time Active eplerenone (Inspra) 25 MG tablet Take 25 mg by mouth Daily Active latanoprost (Xalatan) 0.005 % ophthalmic solution 3 Active amLODIPine (Norvasc) 2.5 MG tablet Take 1 tablet by mouth Daily Active aspirin 81 MG chewable tablet Chew 81 mg in the morning. 4 Active atorvastatin (Lipitor) 10 MG tablet Take 10 mg by mouth 4 Active Omeprazole 20 MG tablet delayed-release Take 20 mg by mouth in the morning. Active hydrocortisone 2.5 % creamIndications :Other specified dermatitis Apply topically 2 (two) times a day as needed (Rash) Apply thin layer to affected areas on the face bid prn for flares 30 g 1 4 Active Xarelto 20 MG tablet Take 20 mg by mouth in the evening. 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 10/18 Chronic obstructive pulmonary disease, unspecifi ed 12/20/2020 Chronic atrial fibrillation 12/08/2020 Gout 02/24/2019 Encounters Date Type Department Care Team Description 11/18/2024 2:15 PM EDT Office Visit [facility] [address] [place] [phone] Juan C Gusman DPM Corns and callosities (Primary Dx); Idiopathic progressive polyneuropathy; Hammer toe of left foot; Hallux valgus of left foot; Pain of toe of left foot 11/18/2024 Bamboo flowsheet [facility] [address] [place] [address] Juan C Gusman DPM 11/18/2024 Travel 11/10/2024 10:50 AM EDT [facility] [address] [place] [address] Natalie Cox PA Actinic keratosis (Primary Dx); Inflamed seborrheic keratosis 11/10/2024 Bamboo flowsheet [facility] [address] [place] [address] Natalie Cox PA 11/10/2024 Travel 10/21/2024 Telephone [facility] [address] [place] [phone] Isaias Naranjo MA 10/14/2024 Telephone [facility] [address] [place] [phone] Isaias Naranjo MA 09/28/2024 [facility]phone [facility] [address] [place] [address] Jani Skinner DO 09/27/2024 2:00 PM EDT Procedure Visit [facility] [address] [place] [address] Juan C Gusman, EDILBERTO Idiopathic progressive polyneuropathy (Primary Dx); Onychomycosis 09/27/2024 Bamboo flowsheet [facility] [address] [place] [address] Juan C Gusman DPM 09/27/2024 Travel from Last 3 Months Immunizations Immunization Administration Dates Next Due Pneumococcal Polysaccharide PPSV23 01/29/2021 Tdap 12/30/2015 Family History Medical History Relation Name Comments Cancer Father Cancer Father's Brother Cancer Father's Sister Melanoma Neg Hx Relation Name Status Comments Father Father's Brother Father's Sister Mother Social History Tobacco Use Types Packs/Day Years Used Date Smoking Tobacco: Never Passive Smoke Exposure: Never Smokeless Tobacco: Never Alcohol Use Standard Drinks/Week Comments Never 0 (1 standard drink = 0.6 oz pur e alcohol) Sex and Gender Information Value Date Recorded Sex Assigned at Not on file Legal Sex Male 6:49 PM EDT Gender Identity Not on file Sexual Orientation Not on file Last Filed Vital Signs Vital Sign Reading Time Taken Comments Blood Pressure 104/57 11/18/2024 2:15 PM EDT Pulse 63 11/18/2024 2:15 PM EDT Temperature - - Respiratory Rate 18 07/29/2024 2:05 PM EDT Oxygen Saturation - - Inhaled Oxygen Concentration - - Weight 88.5 kg (195 lb) 11/18/2024 2:15 PM EDT Height 182.9 cm (6') 11/18/2024 2:15 PM EDT Body Mass Index 26.45 11/18/2024 2:15 PM EDT Plan of Treatment Upcoming Encounters Date Type Department Care Team (Late st Contact Info) Description 01/27/2025 9:15 AM EDT Procedure Visit [facility] [address] [facility] [place] [address] Juan C Gusman, DPSteffany [address] [facility] [place] [address] 03/11/2025 7:50 AM EST Office Visit [facility] [address] [place] [address] Natalie Cox PA [address] [place] [address] Health Maintenance Due Date Last Done Comments Pneumococcal Vaccine: 65+ Ye ars (2 of 2 - PCV) 01/29/2022 01/29/2021, 11/27/2015 Influenza Vaccine (#1) 2024 04/07/2024, 2022 Procedures Procedure Name Priority Date/Time Associated Diagnosis Comments CRYOTHERAPY SKIN LESION Routine 11/11/19 10:59 AM EDT Inflamed seborrheic keratosis CRYOTHERAPY SKIN LESION Routine 11/11/19 10:58 AM EDT Actinic keratosis from Last 3 Months Results * Cryotherapy, skin lesion (11/10/2024 10:59 AM EDT) Natalie RIOS DERM PROCEDURE ORDERABLES Fin al Result * Cryotherapy, skin lesion (11/10/2024 10:58 AM EDT) Natalie [facility]OS [facility]ERM PROCEDURE ORDERABLES Fin al Result from Last 3 Months Insurance [employer] Care Teams First Beater Relationship Specialty Start Date End Date Raegan Walker MD [address] [place] [address] PCP - General Family Medicine 07/29/24
--- OUTSIDE RECORDS SUMMARY | 2024-12-08 10:19 | XMS_ITS | Clinical Summary ---
Author Organization [facility] Address [address] [facility], [address] [place] [address] Care Team Providers Care Can Solderer Name Role Phone Raegan Walker MD Primary Care Provider [phone] Allergies Active Allergy Reactions Criticality Noted Date Comments Indomethacin 06/27/2021 Other reaction(s): Unknown Sulfa Antibiotics 12/21/2020 Other reaction(s): Unknown Medications Omeprazole 20 MG TBEC Take 1 tablet by mouth daily Active allopurinol (ZYLOPRIM) 300 MG tablet Take 1 tablet by mouth daily Active latanoprost (XALATAN) 0.005 % ophthalmic solution INSTILL 1 DROP IN BOTH EYES once DAILY IN THE EVENING 2 Active Cholecalciferol (VITAMIN D) 50 MCG (2000 UT) CAPS capsule Take 5,000 Units by mouth daily Active aspirin 81 MG EC tablet Take 1 tablet by mouth daily Active amLODIPine (NORVASC) 2.5 MG tablet Take 1 tablet by mouth daily Active atorvastatin (LIPITOR) 10 MG tablet Take 1 tablet by mouth daily 4 Active colchicine (COLCRYS) 0.6 MG tablet Take 1 tablet by mouth daily 30 tablet 3 4 Active Additional Information Patient not taking.Reported on 08/16/2024 ferrous sulfate (IRON 325) 325 (65 Fe) MG tabletIndicatio ns:Iron deficiency anemia, unspecified iron deficiency anemia type Take 1 tablet by mouth daily (with breakfast) 90 tablet 3 5 Active rivaroxaban (XARELTO) 20 MG TABS tablet Take 1 tablet by mouth Daily with supper 90 tablet 3 5 Active furosemide (LASIX) 20 MG tablet Take 1 tablet by mouth 2 times daily 60 tablet 11 5 Active furosemide (LASIX) 20 MG tablet TAKE 1 TABLET BY MOUTH DAILY 90 tablet 3 5 025 Discontin ued(REORD ER) Active Problems Problem Noted Date Diagnosed Date Chronic obstructive pulmonary disease, unspecifi ed 12/20/2020 Chronic atrial fibrillation 12/08/2020 Pulmonary nodule 12/21/2019 Anemia 02/24/2019 Gout 02/24/2019 Encounters Date Type Department Care Team Description 11/24/2024 Telephone [facility] Advertising Intern [address] [place] [phone] Wing Miller MD 11/06/2024 Refill [facility] Advertising Intern [address] [place] [address] Wing Miller MD Medication Refill 10/14/2024 Refill [facility] Advertising Intern [address] [place] [address] Wing Miller MD Medication Refill from Last 3 Months Immunizations Immunization Administration Dates Next Due TDaP, ADACEL (age 10y-64y), BOOSTRIX (age 10y+), IM, 0.5mL 12/30/2015 Social History Tobacco Use Types Packs/Day Years Used Date Smoking Tobacco: Never Smokeless Tobacco: Never Tobacco Cessation:Counseling Given: Not Answered Alcohol Use Standard Drinks/Week Comments No 0 [...] Orientation Straight 03/29/2023 12 :10 PM EST Last Filed Vital Signs Vital Sign Reading Time Taken Comments Blood Pressure 122/68 08/16/2024 10:15 AM EDT Pulse 73 04/29/2024 11:21 AM EST Temperature 36.5 C (97.7 F) 08/16/2024 10:15 AM EDT Respiratory Rate 16 04/29/2024 11:21 AM EST Oxygen Saturation 92% 04/29/2024 11:21 AM EST Inhaled Oxygen Concentration - - Weight 88.5 kg (195 lb) 08/16/2024 10:15 AM EDT Height 188 cm (6' 2 ) 08/16/2024 10:15 AM EDT Body Mass Index 25.04 08/16/2024 10:15 AM EDT Plan of Treatment Upcoming Encounters Date Type Department Care Team (Late st Contact Info) Description 04/28/2025 9:30 AM EST Office Visit [facility] Advertising Intern [address] [place] [phone] Miesha Clark MARKETING RESEARCH ANALYST - GEODESIST [address] [place] [address] 1 year follow up labs ekg cxr 08/16/2025 10:00 AM EDT Office Visit [facility] Part of [address] [place] [address] Tuyet Obrien, MARKETING RESEARCH ANALYST - GEODESIST [address] [place] [address] [address] [place] [address] 1 year PSA Health Maintenance Due Date Last Done Comments Depression Screen 1952 Respiratory Syncytial Virus (RSV) or age 60 yrs+ (1 - 1-dose 75+ series) 2016 Annual Wellness Visit (Medicare) 02/24/2023 Shingles vaccine (2 of 2) 06/02/2024 04/07/2024 Flu vaccine (#1) 10/29/2024 04/07/2024, 05/2022, 02/04/2022, Additional history exists COVID-19 Vaccine ( - season) 2024 01/04/2021, 05/25/2020, 05/04/2020 Lipids 04/26/2025 04/26/2024, 11/30, 08/27/2023, Additional history exists DTaP/Tdap/Td vaccine (2 - Td or Tdap) 12/29/2025 12/30/2015, 12/30/2015, 02/01/2013 Pneumococcal 50+ years Vaccine Completed 01/29/2021, 02/14/2020, 02/08/2019, Additional history exists Hepatitis A vaccine Aged Out No longe r eligible based on patient's age to complete this topic Hepatitis B vaccine Aged Out No longe r eligible based on patient's age to complete this topic Hib vaccine Aged Out No longer eligi ble based on patient's age to complete this topic Meningococcal (ACWY) vaccine Aged Out No longer eligible based on patient's age to complete this topic Meningococcal B vaccine Aged Out No l onger eligible based on patient's age to complete this topic Polio vaccine Aged Out No longer elig ible based on patient's age to complete this topic Procedures Procedure Name Priority Date/Time Associated Diagnosis Comments LIPID PANEL Routine 04/26/2024 10:30 AM EST Atrial flutter, unspecified type (HCC) Vitamin D deficiency Encounter for lipid screening for cardiovascular disease Aortic valve stenosis, etiology of cardiac valve disease unspecified from Last 3 Months or Most Recently Relevant to Health Maintenance Results * Lipid Panel (04/26/2024 10:30 AM EST) Cholesterol, Total 113 0 - 199 mg/dL 04/26/2024 10:30 AM EST [facility] Comment: Cholesterol Guidelines: <200 Desirable 200-240 Borderline >240 Undesirable HDL 48 >40 mg/dL 04/26/2024 10:30 AM EST [facility] Comment: HDL Guidelines: <40 Undesirable 40-59 Borderline >59 Desirable LDL Cholesterol 54 0 - 100 mg/dL 04/26/2024 10:30 AM EST [facility] Comment: LDL Guidelines: <100 Desirable 100-129 Near to/above Desirable 130-159 Borderline >159 Undesirable Direct (measured) LDL and calculated LDL are not interchangeable tests. Chol/HDL Ratio 2.4 04/26/2024 10:30 AM EST [facility] Triglycerides 53 <150 mg/dL 04/26/2024 10:30 AM EST [facility] Comment: Triglyceride Guidelines: <150 Desirable 150-199 Borderline 200-499 High >499 Very high Based on AHA Guidelines for fasting triglyceride, December 2011. VLDL 11 1 - 30 mg/dL 04/26/2024 10:30 AM EST [facility] Blood BLOOD SPECIMEN / Unknown 04/26/2024 10:30 AM EST 04/26/2024 10:31 AM EST Wing Miller MD CHEMISTRY ORDERABLES Final Res ult [facility] [address] [place] [address], [facility] [phone] [facility] [phone] [id number], [facility] [phone] from Last 3 Months or Most Recently Relevant to Health Maintenance Insurance [employer] Care Teams Can Solderer Relationship Specialty Start Date End Date Raegan Walker MD PCP - General Family Medicine 09/18/19
--- OUTSIDE RECORDS SUMMARY | 2024-12-08 10:19 | XMS_ITS | Clinical Summary ---
Author Organization [facility] Address [address] [place] [address] Care Team Providers Care Supervisor Braiding Name Role Phone Unavailable Primary Care Provider Unavailabl e Social History Tobacco Use Types Packs/Day Years Used Date Smoking Tobacco: Never Assessed [place] Safety & Environment Answer Date Rec orded Fear of Current or Ex-Partner Not on file Emotionally Abused Not on file 05/22/2023 Physically Abused Not on file 05/22/2023 Sexually Abused Not on file 05/22/2023 Physically or Sexually Abused Not on file Sex and Gender Information Value Date Recorded Sex Assigned at Not on file Legal Sex Male 12:44 AM EDT Gender Identity Not on file Sexual Orientation Not on file Last Filed Vital Signs Vital Sign Reading Time Taken Comments Blood Pressure - - Pulse - - Temperature - - Respiratory Rate - - Oxygen Saturation - - Inhaled Oxygen Concentration - - Weight 90.7 kg (200 lb) 10/10/2021 1:31 PM EDT Height 189.2 cm (6' 2.5 ) 10/10/2021 1:30 PM EDT Body Mass Index 25.33 10/10/2021 1:30 PM EDT Plan of Treatment Health Maintenance Due Date Last Done Comments Medicare Annual Wellness (AWV) 1940 Depression Screening 1952 Adult Tetanus 1963 Pneumococcal Vaccine: 50+ Ye ars (1 of 1 - PCV) 1991 Zoster Vaccines (1 of 2) 1991 Fall Risk Screening 2006 COVID-19 Vaccine (2023-2 5 season) 2024 Influenza Vaccine (#1) 2024 HIB Vaccines Aged Out No longer eligi ble based on patient's age to complete this topic HPV Vaccines Aged Out No longer eligi ble based on patient's age to complete this topic IPV Vaccines Aged Out No longer eligi ble based on patient's age to complete this topic Meningococcal B Vaccine Aged Out No l onger eligible based on patient's age to complete this topic Meningococcal Vaccine Aged Out No charity arlene eligible based on patient's age to complete this topic Rotavirus Vaccines Aged Out No longer eligible based on patient's age to complete this topic Insurance [employer] [place] MEDICARE [place] [id number]
--- OUTSIDE RECORDS SUMMARY | 2024-12-08 10:20 | XMS_ITS | Encounter Summary ---
Author Organization [facility] Address [address] [facility], [address] [place] [address] Care Team Providers Care Street Commissioner Name Role Phone Raegan Walker MD Primary Care Provider [phone] Reason for Referral * Imaging (Routine) - Closed Specialty Diagnoses / Procedures Referred By Contac t Referred To Contact Radiology Diagnoses Lumbar radiculopathy Procedures MRI lumbar spine without contrast Norman Michelle MD [address] [facility] [place] [address] Phone: tel: Referral ID Status Reason Start Date Expiration Date Visits Re quested Visits Authorized [id number] Closed 06/22/2020 06/22/2021 1 1 Encounter Details Date Type Department Care Team (Latest Contact Info) Description 06/22/2020 Transcribe Orders [facility] [address] [phone] Norman Michelle MD [address] [facility] [address] [place] [address] Lumbar radiculopathy (Primary Dx) Social History Tobacco Use Types [...] Description 04/28/2025 9:30 AM EST Office Visit [facility] E/M Engineer [address] [place] [address] Miesha Clark, SOIL CONSERVATION TEACHER - TOWEL SORTER [address] [place] [address] 1 year follow up labs ekg cxr 08/16/2025 10:00 AM EDT Office Visit [facility] Part of [address] [place] [address] Tuyet Obrien, SOIL CONSERVATION TEACHER - TOWEL SORTER [address] [place] [address] [address] [place] [address] 1 year PSA documented as of this encounter Procedures Procedure Name Priority Date/Time Associated Diagnosis Comments MRI LUMBAR SPINE WO CONTRAST Routine 06/28/2020 10:22 AM EDT Lumbar radiculopathy documented in this encounter Results * MRI lumbar spine without contrast (06/28/2020 10:22 AM EDT) Anatomical Region Laterality Modality T-spine, L-spine, Pelvis Magneti c Resonance 06/28/2020 10:2 6 AM EDT Impressions 06/28/2020 10:32 AM EDT Multilevel degenerative disc disease and multilevel degenerative facet/ligamentous hypertrophy with canal stenosis at L3-4 and L4-5. Bilateral foraminal narrowing throughout the lumbar spine as described above. Lateral recess narrowing at L2-3, L3-4, and L4-5. Narrative 06/28/2020 10:32 AM EDT EXAMINATION: MRI OF THE LUMBAR SPINE WITHOUT CONTRAST, 06/28/2020 10:05 am TECHNIQUE: Multiplanar multisequence MRI of the lumbar spine was performed without the administration of intravenous contrast. COMPARISON: None. HISTORY: ORDERING SYSTEM PROVIDED HISTORY: Lumbar radiculopathy FINDINGS: BONES/ALIGNMENT: There is a minimal dextrocurvature of the lumbar spine. The vertebral body heights are maintained. There is age-appropriate bone marrow signal. There is multilevel degenerative disc disease with loss of disc signal. There is mild disc space narrowing at the L3-4 level. There is no spondylolisthesis. SPINAL CORD: The conus medullaris is normal in caliber and signal and terminates at the T12 level. The cauda equina is unremarkable. SOFT TISSUES: The posterior paraspinal soft tissues are unremarkable. The visualized abdominal structures are unremarkable. L1-L2: There is a circumferential disc bulge with facet hypertrophy. There is no significant canal stenosis or right foraminal narrowing. There is mild left foraminal narrowing. L2-L3: There is a circumferential disc bulge with facet ligamentous hypertrophy. There is no significant canal stenosis or right foraminal narrowing. There is moderate left foraminal narrowing. There is narrowing of the lateral recesses. L3-L4: There is a circumferential disc bulge with facet and ligamentous hypertrophy. There is canal stenosis measuring 8 mm in AP dimension. There is mild bilateral foraminal narrowing. There is narrowing of the lateral recesses. L4-L5: There is a circumferential disc bulge facet and ligamentous hypertrophy. There is canal stenosis measuring 6 mm in AP dimension. There is mild left and severe right foraminal narrowing. There is narrowing of the lateral recesses. L5-S1: There is no disc bulge or herniation. There is no canal stenosis or left foraminal narrowing. There is moderate to severe right foraminal narrowing. Procedure Note Chente Marc MD - 06/28/2020 EXAMINATION: MRI OF THE LUMBAR SPINE WITHOUT CONTRAST, 06/28/2020 10:05 am TECHNIQUE: Multiplanar multisequence MRI of the lumbar spine was performed withoutthe administration of intravenous contrast. COMPARISON: None. HISTORY: ORDERING SYSTEM PROVIDED HISTORY: Lumbar radiculopathy FINDINGS: BONES/ALIGNMENT: There is a minimal dextrocurvature of the lumbar spine.The vertebral body heights are maintained. There is age-appropriate bonemarrow signal. There is multilevel degenerative disc disease with loss of disc signal. There is mild disc space narrowing at the L3-4 level. There isno spondylolisthesis. SPINAL CORD: The conus medullaris is normal in caliber and signal and terminates at the T12 level. The cauda equina is unremarkable. SOFT TISSUES: The posterior paraspinal soft tissues are unremarkable.The visualized abdominal structures are unremarkable. L1-L2: There is a circumferential disc bulge with facet hypertrophy.There is no significant canal stenosis or right foraminal narrowing. There ismild left foraminal narrowing. L2-L3: There is a circumferential disc bulge with facet ligamentous hypertrophy. There is no significant canal stenosis or right foraminal narrowing. There is moderate left foraminal narrowing. There isnarrowing of the lateral recesses. L3-L4: There is a circumferential disc bulge with facet and ligamentous hypertrophy. There is canal stenosis measuring 8 mm in AP dimension.There is mild bilateral foraminal narrowing. There is narrowing of thelateral recesses. L4-L5: There is a circumferential disc bulge facet and ligamentous hypertrophy. There is canal stenosis measuring 6 mm in AP dimension.There is mild left and severe right foraminal narrowing. There is narrowing ofthe lateral recesses. L5-S1: There is no disc bulge or herniation. There is no canal stenosisor left foraminal narrowing. There is moderate to severe right foraminal narrowing. IMPRESSION: Multilevel degenerative disc disease and multilevel degenerative facet/ligamentous hypertrophy with canal stenosis at L3-4 and L4-5. Bilateral foraminal narrowing throughout the lumbar spine as describedabove. Lateral recess narrowing at L2-3, L3-4, and L4-5. Norman Michelle MD [facility] MRI ORDERABLES Final Result documented in this encounter Visit Diagnoses Diagnosis Lumbar radiculopathy- Primary Thoracic or lumbosacral neuritis or radiculitis, unspecified documented in this encounter Additional Health Concerns Infection Onset Date Last Indicated Resolved Time COVID-19 (Rule Out) 08/11/2020 08/11/2020 08/12/19 21 10:42 AM EDT COVID-19 (Rule Out) 07/13/2021 07/13/2021 07/15/19 22 11:57 AM EDT COVID-19 (Rule Out) 12/06/2021 12/06/2021 12/07/19 22 2:01 PM EDT COVID-19 (Rule Out) 12/06/2021 12/06/2021 12/07/19 22 2:17 PM EDT documented as of this encounter Care Teams Street Commissioner Relationship Specialty Start Date End Date Raegan Walker MD PCP - General Family Medicine 09/18/19 documented as of this encounter
--- OUTSIDE RECORDS SUMMARY | 2024-12-08 10:20 | XMS_ITS | Encounter Summary ---
Author Organization [facility] Address [address] [facility], [address] [place] [address] Care Team Providers Care Forest Resource Specialist Name Role Phone Raegan Walker MD Primary Care Provider [phone] Encounter Details Date Type Department Care Team (Late st Contact Info) Description 02/19/2024 Orders Only [facility] Part of [address] [place] [address] Provider, MD Gerardo Social History [...] Description 04/28/2025 9:30 AM EST Office Visit [facility] Liquor Runner [address] [place] [address] Miesha Clark, CREATIVE PERFUMER - COMPLIANCE ENGINEER [address] [place] [address] 1 year follow up labs ekg cxr 08/16/2025 10:00 AM EDT Office Visit [facility] Part of [address] [place] [address] Tuyet Obrien, CREATIVE PERFUMER - COMPLIANCE ENGINEER [address] [place] [address] [address] [place] [address] 1 year PSA documented as of this encounter Procedures Procedure Name Priority Date/Time Associated Diagnosis Comments PSA SCREENING Routine 11/19/2023 8:54 AM EDT documented in this encounter Results * PSA Screening (11/19/2023 8:54 AM EDT) Blood BLOOD SPECIMEN / Unknown us Historical Provider CHEMISTRY ORDERABLES Liza l Result documented in this encounter Visit Diagnoses Not on filedocumented in this encounter Additional Health Concerns Assessment Noted Time A Body Mass Index follow-up plan has been documented for the patient 12/06/2021 1:41 PM EDT documented as of this encounter Care Teams Forest Resource Specialist Relationship Specialty Start Date End Date Raegan Walker MD PCP - General Family Medicine 09/18/19 documented as of this encounter
--- OUTSIDE RECORDS SUMMARY | 2024-12-08 10:22 | XMS_ITS | CCD ---
Author Organization [facility] Care Team Providers Care Filing And Polishing Supervisor Name Role Phone SANDY MURILLO Unavailable Unavailable NITA HERNANDEZ Admitting Unavailable FAIZAN BRAGG Primary Care Unavailable Faizan Bragg Primary Care Provider NITA HERNANDEZ Attending Unavailable NITA HERNANDEZ Referring Unavailable FAIZAN BRAGG Primary Care Unavailable Faizan Bragg Primary Care Provider Faizan Bragg Primary Care Provider Faizan Bragg Primary Care Provider Faizan Bragg Primary Care Provider Faizan Bragg MD Primary Care Provider [phone] Faizan Bragg MD Primary Care Provider [phone] Faizan Bragg MD Primary Care Provider Faizan Bragg MD Primary Care Provider Mik Amaya Unavailable Faizan Bragg MD Primary Care Provider [phone] MD Faizan Bragg Primary Care Provider [phone] MD Mik Amaya Attending Provider [phone] Isrrael Greene Admitting Unavailable FAIZAN BRAGG Referring Unavailable FAIZAN BRAGG Primary Care Unavailable Isrrael Greene Attending Unavailable Faizan Bragg Unavailable DR FAIZAN BRAGG Attending Unavailable KAY, DR NITA Prieto Consulting Unavailable YEMI, DR FAIZAN Hernandez Primary Care Unavailable DR FAIZAN BRAGG Admitting Unavailable DR FAIZAN BRAGG Consulting Unavailable YEMI, DR FAIZAN Hernandez Admitting Unavailable BRAGG, DR FAIZAN Hernandez Attending Unavailable BRAGG, DR FAIZAN Hernandez Consulting Unavailable BRAGG, DR FAIZAN Hernandez Primary Care Unavailable HEGG, ZE Consulting Unavailable BRAGG, DR FAIZAN Hernandez Admitting Unavailable BRAGG, DR FAIZAN Hernandez Attending Unavailable BRAGG, DR FAIZAN Hernandez Consulting Unavailable BARGG, DR FAIZAN Hernandez Primary Care Unavailable BRAGG, DR FAIZAN Hernandez Attending Unavailable ZIEBER, DR NITA Prieto Consulting Unavailable BRAGG, DR FAIZAN Hernandez Primary Care Unavailable BRAGG, DR FAIZAN Hernandez Admitting Unavailable BRAGG, DR FAIZAN Hernandez Consulting Unavailable Le, Arturo Consulting Unavailable BRAGG, DR FAIZAN Hernandez Attending Unavailable BRAGG, DR FAIZAN Hernandez Consulting Unavailable BRAGG, DR FAIZAN Hernandez Primary Care Unavailable BRAGG, DR FAIZAN Hernandez Admitting Unavailable Bragg , Faizan Primary Care Provider Yemi DE LA PAZ, Faizan Primary Care Provider [phone] FAIZAN BRAGG Primary Care Physician Yemi DE LA PAZ, Faizan Primary Care Provider TRES ÁLVAREZ Attending Unavailab le VIGESAA, TRES CLIFFORD Admitting Unavailab le BRAGGFAIZAN Primary Care Unavailable Bragg , Faizan Primary Care Provider BRAGG, FAIZAN Primary Care Unavailable BRAGG, FAIZAN Primary Care Unavailable SHAW, MIESHA S Referring Unavailable BRAGG, FAIZAN Primary Care Unavailable BRAGG, FAIZAN Primary Care Unavailable BRAGG, FAIZAN Primary Care Unavailable VIGESAA, WING S Referring Unavailable BRAGG, FAIZAN Primary Care Unavailable BRAGG, FAIZAN Primary Care Unavailable VIGESAA, WING S Referring Unavailable SHAW, MIESHA S Referring Unavailable BRAGG, FAIZAN Primary Care Unavailable BRAGG, FAIZAN Primary Care Unavailable BRAGG, FAIZAN Primary Care Unavailable BRAGG, FAIZAN Primary Care Unavailable BRAGG, FAIZAN Primary Care Unavailable BRAGG, FAIZAN Primary Care Unavailable BRAGG, FAIZAN Primary Care Unavailable BRAGG, FAIZAN Primary Care Unavailable BRAGG, FAIZAN Primary Care Unavailable BRAGG, FAIZAN Primary Care Unavailable VIGESAA, WING S Attending Unavailable VIGESAA, WING S Referring Unavailable BRAGG, FAIZAN Primary Care Unavailable VIGESAA, WING S Referring Unavailable BRAGG, FAIZAN Primary Care Unavailable VIGESAA, WING S Attending Unavailable VIGESAA, WING S Referring Unavailable BRAGG, FAIZAN Primary Care Unavailable VIGESAA, WING S Attending Unavailable VIGESAA, WING S Referring Unavailable BRAGG, FAIZAN Primary Care Unavailable BRAGG, FAIZAN Primary Care Unavailable BRAGG, FAIZAN Primary Care Unavailable BRAGG, FAIZAN Primary Care Unavailable BRAGG, FAIZAN Primary Care Unavailable BRAGG, FAIZAN Primary Care Unavailable RBAGG, FAIZAN Primary Care Unavailable BRAGG, FAIZAN Primary Care Unavailable BRAGG, FAIZAN Primary Care Unavailable BRAGG, FAIZAN Primary Care Unavailable BRAGG, FAIZAN Primary Care Unavailable BRAGG, FAIZAN Primary Care Unavailable BRAGG, FAIZAN Primary Care Unavailable BRAGG, FAIZAN Primary Care Unavailable BRAGG, FAIZAN Primary Care Unavailable BRAGG, FAIZAN Primary Care Unavailable BRAGG, FAIZAN Primary Care Unavailable VIGESAA, WING S Referring Unavailable BRAGG, FAIZAN Primary Care Unavailable BRAGG, FAIZAN Primary Care Unavailable BRAGG, FAIZAN Primary Care Unavailable BRAGG, FAIZAN Primary Care Unavailable BRAGG, FAIZAN Primary Care Unavailable VIGESAA, WING S Referring Unavailable BRAGG, FAIZAN Primary Care Unavailable VIGESAA, WING S Attending Unavailable VIGESAA, WING S Referring Unavailable BRAGG, FAIZAN Primary Care Unavailable VIGESAA, WING S Referring Unavailable BRAGG, FAIZAN Primary Care Unavailable BRAGG, FAIZAN Primary Care Unavailable VIGESAA, WING S Referring Unavailable BRAGG, FAIZAN Primary Care Unavailable VIGESAA, WING S Attending Unavailable VIGESAA, WING S Referring Unavailable BRAGG, FAIZAN Primary Care Unavailable VIGESAA, WING S Referring Unavailable BRAGG, FAIZAN Primary Care Unavailable BRAGG, FAIZAN Primary Care Unavailable BRAGG, FAIZAN Primary Care Unavailable BRAGG, FAIZAN Primary Care Unavailable WOLF MORRIS Attending Unavailable BRAGG, FAIZAN Primary Care Unavailable SHAW, MIESHA S Referring Unavailable BRAGG, FAIZAN Primary Care Unavailable BRAGG, FAIZAN Primary Care Unavailable SHAW, MIESHA S Referring Unavailable BRAGG, FAIZAN Primary Care Unavailable Yemi DE LA PAZ, Faizan Primary Care Provider Faizan Bragg MD Primary Care Provider [phone] Faizan Bragg MD Primary Care Provider [phone] SHAREE EVANS Referring Unavailable BRAGG, FAIZAN Primary Care Unavailable Faizan Bragg MD E Primary Care Provider BRAGG, FAIZAN E Primary Care Unavailable JEFF ZAYAS Attending Unavailable MECHELLE ADEN Attending Unavailable BRAGG, FAIZAN E Primary Care Unavailable CAROL GUSMAN Attending UnavailNATALIE Scott Attending Unavailable CAROL GUSMAN Attending Unavailabl e CAROL GUSMAN Attending Unavailabl e CAROL GUSMAN Attending UnavailNATALIE Scott Attending Unavailable CAROL GUSMAN Attending UnavailCAROL Horne Attending UnavailNATALIE Scott Attending Unavailable CAROL GUSMAN Attending UnavailDaniel Cantrell Referring Unavailable Daniel Hair Attending Unavailable Daniel Hair Admitting Unavailable Daniel Hair Referring Unavailable Daniel Hair Attending Unavailable Daniel Hair Admitting Unavailable FAIZAN BRAGG Referring Unavailable Daniel Hair Attending Unavailable Daniel Hair Admitting Unavailable Daniel Hair Attending Unavailable NONE, XXXX Referring Unavailable Daniel Hair Attending Unavailable FAIZAN BRAGG Referring Unavailable Daniel Hair Admitting Unavailable Daniel Hair Referring Unavailable Daniel Hair Attending Unavailable Allergies Allergy Classification Reported Allergen(s) Allergy Type Date of Onset Reaction(s) Facility (20 sources) Indomethacin Drug Allergy 06-05-19 14 Unknown, Other [facility] Comment on above: Onset Date: 06/05/19 14 (4 sources) Sulfamethoxazole / Trimethoprim Drug Allergy 06-28-19 22 Unknown [facility] (20 sources) Sulfonamides (Antibiotic) Propensity to adverse reactions to drug 12-22-19 21 Unknown [facility] (4 sources) Sulfamethoxazole / Trimethoprim Drug Allergy 02-10-20 13 Unknown [facility] Other (2 sources) patient allergy list reviewed by nurse or physicia Propensity to adverse reactions 07-28-19 19 Comment:Done [facility] Other (2 sources) Allergies Reconciled Propensity to adverse reactions Unknown [facility] Other (6 sources) Sulfamethoxazole Drug Allergy 11-19-19 24 Unknown Reaction [facility] [place] Comment on above: Onset Date: 02/10/20 13 (20 sources) Trimethoprim Drug Allergy 11-19-19 24 Other [facility] [place] Comment on above: Onset Date: 02/10/20 13 (1 source) No Known Medication Allergies; Translations: [No Known Medication Allergies] Propensity to adverse reactions (disorder) [facility] Medications Current Medications Medication Drug Class(es) Dates Sig (Normalized) Sig (Original) allopurinol 300 mg oral tablet (20 sources) Xanthine Oxidase Inhibitor Start: 06-05-2023 End: 05-07-2024 take 1 tablet by mouth once daily Allopurinol 300 mg tablet Active 300 MG PO Daily May 07, 2024 10:26am Start: 05-29-2023 End: 06-05-2023 take 1 tablet by mouth once daily Allopurinol 300 mg tablet Discontinued 0 .ROUTE .COMPLEX 90 May 29, 2023 3:21pm June 05, 2023 2:12pm TAKE 1 TABLET BY MOUTH DAILY Start: 05-29-2023 End: 06-05-2023 take 1 tablet by mouth once daily Allopurinol Discontinued 0 .ROUTE .COMPLEX 90 May 29, 2023 3:21pm June 05, 2023 2:12pm TAKE 1 TABLET BY MOUTH DAILY Start: 02-23-2019 End: 05-29-2023 take 1 tablet by mouth once daily Allopurinol 300 mg tablet Discontinued 300 MG PO Daily February 23, 2019 1:00am May 29, 2023 3:21pm Comment on above: Take 300 mg by mouth once daily. amitriptyline hydrochloride 25 mg oral tablet (3 sources) Tricyclic Antidepressant Start: take 0.5-1 tablets by mouth once daily at bedtime amitriptyline 25 mg Tab 0.5-1 tab(s), Oral, Once a day (at bedtime), # 30 tab(s), Refills(s) 1, Pharmacy: [facility] #[id number], 188, cm, 08/04/23 8:12:00 EDT, Height/Length Dosing, 88.5, kg, 07/03/23 14:37:00 EDT, Weight Dosing Start Date: 08/11/23 Status: Ordered amLODIPine 5 mg oral tablet (20 sources) Dihydropyridine Calcium Channel [place] Start: take 2.5 mg by mouth once daily Amlodipine 5 mg tablet Active 2.5 MG PO Daily January 28, 2024 12:00am Start: 01-28-2024 take 2.5 mg by mouth once osiel y Amlodipine Active 2.5 MG PO Daily January 28, 2024 12:00am Start: 01-23-2024 take 0.5 tablet by m outh once daily amLODIPine (NORVASC) 5 MG tablet Take 0.5 (one-half) tablet (2.5 mg total) by mouth daily . 15 tablet 11 01/23/2024 Active take 1 tablet by emily th once daily amLODIPine (Norvasc) 2.5 MG tablet Take 1 tablet by mouth Daily Active atorvastatin 10 mg oral tablet (20 sources) HMG-CoA Reductase Inhibitor Start: 01-23-2024 atorvastatin (Lipitor) 10 MG tablet Take 10 mg by mouth 01/23/2024 Active baclofen 5 mg oral tablet (1 source) gamma-Aminobutyric Acid-ergic Agonist Start: 01-22-2024 End: 02-21-2024 baclofen 5 mg oral tablet 5 mg = 1 tab(s), Oral, TID, take at night for first dose to assess response. Then take as needed for muscle spasms/pain, X 30 day(s), # 90 tab(s), Refills(s) 0, Pharmacy: [facility] #[id number], 188, cm, 01/22/24 10:40:00 EDT, Height/Length Dosing, 86.2, kg, 01/22/24 10:40:00 EDT, Weight Dosing Start Date: 01/22/24 Stop Date: 02/21/24 Status: Ordered betamethasone 0.5 mg/ml / clotrimazole 10 mg/ml topical cream (3 sources) Azole Antifungal, Corticosteroid Start: 04-30-2024 Clotrimazole-Beta methasone 1-0.05 % cream Active 1 APPLIC TOPICAL Twice daily 15 April 30, 2024 1:00am cefdinir 300 mg oral capsule (6 sources) Cephalosporin Antibacterial Start: 07-09-2022 Cefdinir 300 MG as directed Orally bid for 7 days Jun, Active cephalexin 500 mg oral capsule (4 sources) Cephalosporin Antibacterial Start: 07-15-2024 End: 07-22-2024 take 1 capsule by mouth in the morning cephalexin (Keflex) 500 MG capsule Indications: Ulcer of right heel and midfoot, limited to breakdown of skin (CMS/HCC) Take 1 capsule (500 mg) by mouth in the morning and 1 capsule (500 mg) before bedtime. Do all this for 7 days. 14 capsule 07/15/2024 07/22/2024 Active Start: 04-30-2024 End: 05-07-2024 take 1 capsule by mouth three times daily Cephalexin 500 mg capsule Discontinued 500 MG PO Three times daily 18 10April 30, 2024 1:00am May 07, 2024 10:06am cholecalciferol 0.05 mg oral capsule (20 sources) Vitamin D Start: 10-23-2021 cholecalcifero l, vitamin D3, 50 mcg (2,000 unit) cap Take 2.5 (two and a half) capsules by mouth daily . 10/23/2021 Active Start: 10-23-2021 take 1 tablet by emily th once daily Cholecalciferol (Vitamin D3) (Vitamin D3) 50 mcg (2,000 unit) Tablet Active 50 MCG PO Daily October 23, 2021 12:00am Cholecalciferol (VITAMIN D) 50 MCG (1999 UT) CAPS capsule Take 5,000 Units by mouth daily Active Cholecalciferol (VITAMIN D) 50 MCG (1999 UT) CAPS capsule Take by mouth Active take 1 capsule by mo uth once daily Cholecalciferol (VITAMIN D3) 50 MCG (2000 UT) CAPS Take 2,000 Units by mouth daily 0 Active colchicine 0.6 mg oral tablet (20 sources) Start: 03-14-2024 take 1 tablet by mouth once daily colchicine (COLCRYS) 0.6 MG tablet Take 1 tablet by mouth daily 30 tablet 3 03/14/2024 Active cyclobenzaprine hydrochloride 5 mg oral tablet (1 source) Muscle Relaxant Start: 12-17-2023 End: 01-16-2024 take 1 tablet by mouth three times daily cyclobenzaprine 5 mg Tab 5 mg = 1 tab(s), Oral, TID, X 30 day(s), # 90 tab(s), Refills(s) 0, Pharmacy: [facility] #[id number], 188, cm, 12/17/23 10:03:00 EDT, Height/Length Dosing, 90, kg, 12/17/23 10:03:00 EDT, Weight Dosing Start Date: 12/17/23 Stop Date: 01/16/24 Status: Ordered doxycycline monohydrate 100 mg oral capsule (1 source) Tetracycline-cl ass Drug Start: 12-06-2021 End: 12-13-2021 take 1 capsule by mouth twice daily doxycycline monohydrate (MONODOX) 100 MG capsule Indications: COPD exacerbation (HCC) Take 1 capsule by mouth 2 times daily for 7 days 14 capsule 0 12/06/2021 12/13/2021 Active esomeprazole 20 mg oral tablet (20 sources) Proton Pump Inhibitor Start: 07-03-2023 take 20 mg by mouth once daily esomeprazole 20 mg, Oral, Daily, Refills(s) 0 Start Date: 07/03/23 Status: Ordered esomeprazole (Ne xIUM) [address] capsule 1 capsule 1 (one) time each day at the same time Active Comment on above: Take 20 mg by mouth DAILY (6 AM). ferrous sulfate 325 mg oral tablet (20 sources) Start: 04-29-2024 take 1 tablet by mouth once daily at breakfast ferrous sulfate (IRON 325) 325 (65 Fe) MG tablet Indications: Iron deficiency anemia, unspecified iron deficiency anemia type Take 1 tablet by mouth daily (with breakfast) 90 tablet 3 04/29/2024 Active Start: 12-18-2020 End: 11-19-2023 take 1 tablet by mouth once daily Ferrous Sulfate (Ferosul) 325 mg (65 mg iron) tablet Discontinued 325 MG PO Daily October 23, 2021 12:00am November 19, 2023 10:51am take 1 tablet by emily th once daily Ferrous Sulfate 325 (65 Fe) MG 1 tablet Orally Once a day Active Comment on above: Take 325 mg by mouth . furosemide 20 mg oral tablet (20 sources) Loop Diuretic Start: 07-20-2021 take 1 tablet by mouth once daily furosemide (LASIX) 20 MG tablet Take 1 (one) tablet (20 mg total) by mouth daily . 10/23/2021 Active Start: 12-14-2020 take 1 tablet by emily th once daily furosemide (LASIX) 20 MG tablet Take 1 tablet by mouth daily 30 tablet 11 12/14/2020 Active Start: 10-20-2020 End: 11-04-2020 take 1 tablet by mouth once daily furosemide (LASIX) 20 MG tablet Take 1 tablet by mouth daily for 15 days 15 tablet 0 10/20/2020 11/04/2020 Active Comment on above: Take 20 mg by mouth once daily. hydrocortisone 25 mg/ml topical cream (20 sources) Corticosteroid Start: 03-08-2024 hydrocortisone 2.5 % cream Indications: Other specified dermatitis Apply topically 2 (two) times a day as needed (Rash) Apply thin layer to affected areas on the face bid prn for flares 30 g 1 03/08/2024 Active latanoprost 0.05 mg/ml ophthalmic solution (20 sources) Prostaglandin Analog Start: 03-16-2024 Latanoprost 0.005 % drops Active DROPS OPHTHALMIC March 16, 2024 1:00am Start: 02-13-2023 latanoprost (X alatan) 0.005 % ophthalmic solution 02/13/2023 Active Start: 09-27-2021 take 1 drop(s) into the eye(s) once daily in the evening latanoprost (XALATAN) 0.005 % ophthalmic solution INSTILL 1 DROP IN BOTH EYES once DAILY IN THE EVENING 09/27/2021 Active montelukast 10 mg oral tablet (20 sources) Leukotriene Receptor Antagonist Start: 12-24-2023 End: 03-16-2024 take 1 tablet by mouth once daily at bedtime Montelukast 10 mg tablet Discontinued 0 .ROUTE .COMPLEX December 24, 2023 1:33pm March 16, 2024 11:15am TAKE 1 TABLET BY MOUTH DAILY AT BEDTIME Start: 11-19-2023 End: 12-24-2023 montelukast (Singulair) 10 M G tablet 12/24/2023 Active Nebulizer Air Tube/Plugs - (11 sources) Start: 04-19-2022 Nebulizer Air Tube/Plugs - as directed qid for 30 days Pt has COVID - needs neb tubing, thank you Mar, Active omeprazole 20 mg delayed release oral capsule (20 sources) Proton Pump Inhibitor Start: 03-03-2024 take 1 capsule by mouth once daily omeprazole 20 mg Cap-DR 20 mg = 1 cap(s), Oral, Daily, Refills(s) 0 Start Date: 03/03/24 Status: Ordered Start: 02-23-2019 take 1 tablet by emily th once daily Omeprazole 20 mg Tablet,Delayed Release (Dr/Ec) Active 20 MG PO Daily October 23, 2021 12:00am take 1 capsule by mo mah every twenty-four hours Omeprazole 20 MG 1 capsule Orally Once a day Active Comment on above: Take 20 mg by mouth. predniSONE 20 mg oral tablet (17 sources) Start: 05-22-2022 take 2 tablets by mouth every twenty-four hours predniSONE 20 MG 2 tablets Orally Once a day for 5 days May, Active Start: 12-06-2021 End: 12-11-2021 take 2 tablets by mouth once daily predniSONE (DELTASONE) 20 MG tablet Indications: COPD exacerbation (HCC) Take 2 tablets by mouth daily for 5 days 10 tablet 0 12/06/2021 12/11/2021 Active Start: 12-14-2020 End: 01-18-2021 predniSONE (DELTASONE) 20 MG tablet Take 1 tablet by mouth See Admin Instructions 38 tablet 0 12/14/2020 01/18/2021 Active Start: 10-20-2020 End: 10-25-2020 take 2 tablets by mouth once daily predniSONE (DELTASONE) 20 MG tablet Take 2 tablets by mouth daily for 5 days 10 tablet 0 10/20/2020 10/25/2020 Active rivaroxaban 20 mg oral tablet (20 sources) Factor Xa Inhibitor Start: 08-18-2020 take 1 tablet by mouth at mealtime Xarelto 20 MG tablet Take 20 mg by mouth in the evening. Take with meals 12/30/2023 Active End: 07-29-2024 rivaroxaban (Xarelto) 2.5 MG tablet 07/29/2024 Discontinued (Duplicate order) Comment on above: Take 20 mg by mouth daily with dinner. spironolactone 25 mg oral tablet (12 sources) Aldosterone Antagonist Start: 12-15-19 take 1 tablet by mouth once daily spironolactone (ALDACTONE) 25 MG tablet Take 1 tablet by mouth daily 90 tablet 1 07/06/2021 Active Comment on above: Take 1 tablet by emily once daily. Vitamin D (7 sources) Start: 09-17-19 Vitamin D Refills(s) 0 Start Date: 09/17/23 Status: Ordered Vitamin D3 5000 intl units (125 mcg) oral tab (1 source) Start: 03-03-20 take 1 tablet by mouth once daily Vitamin D3 5000 intl units (125 mcg) oral tab 125 mcg = 1 tab(s), Oral, Daily, Refills(s) 0 Start Date: 03/03/24 Status: Ordered Completed/Discontinued Medications Medication Drug Class(es) Dates Sig (Normalized) Sig (Original) albuterol 0.83 mg/ml inhalation solution (20 sources) beta2-Adrenergic Agonist Start: 01-28-2024 End: 06-21-2024 take 2.5 mg by inhalation every four to six hours as needed for wheezing Albuterol Sulfate 2.5 mg /3 mL (0.083 %) solution for nebulization Discontinued 2.5 MG INHALATION EVERY 4-6 HOURS as needed for shortness of breath or wheezing January 28, 2024 12:00am June 21, 2024 3:01pm Start: 12-06-2021 End: 12-24-2023 take 2 puff(s) by inhalation every six hours as needed for wheezing albuterol sulfate HFA (PROVENTIL HFA) 108 (90 Base) MCG/ACT inhaler Indications: COPD exacerbation (HCC) Inhale 2 puffs into the lungs every 6 hours as needed for Wheezing 18 g 12/06/2021 12/24/2023 Discontinued (LIST CLEANUP) Albuterol Sulfat e (2.5 MG/3ML) 0.083% 3 mL as needed Inhalation every 6 hrs prn for 10 days Not-Taking/PRN Albuterol Sulfat e (2.5 MG/3ML) 0.083% 3 mL as needed Inhalation every 6 hrs prn for 10 days Not-Taking aspirin 81 mg delayed release oral tablet (20 sources) Platelet Aggregation Inhibitor, Nonsteroidal Anti-inflammatory Drug Start: 01-28-2024 End: 05-26-2024 take 1 tablet by mouth once daily Aspirin 81 mg tablet,delayed release (DR/EC) Discontinued 81 MG PO Daily January 28, 2024 12:00am May 26, 2024 12:26pm Start: 01-01-2024 aspirin 81 MG chewable tablet Chew 81 mg in the morning. 01/01/2024 Active azithromycin 250 mg oral tablet (20 sources) Macrolide Antimicrobial Start: 01-28-2024 End: 05-07-2024 Azithromycin 250 mg tablet Discontinued 0 PO daily 09 02March 16, 2024 1:00am May 07, 2024 10:05am Take 2 on day 1 and then take 1 for the next 4 days (days 2-5) Start: 01-28-2024 Azithromycin A ctive 0 PO daily 09 02January 28, 2024 12:00am Take 2 on day 1 and then take 1 for the next 4 days (days 2-5) Start: 06-05-2023 End: 11-19-2023 take 2 tablets by mouth once daily, then take 1 tablet by mouth once Azithromycin 250 mg tablet Discontinued 250 MG PO daily 6 June 05, 2023 1:00am November 19, 2023 10:51am Take 2 tablets today and then 1 for each additional day for 4 days Start: 07-01-2022 Azithromycin 2 50 MG as directed Orally 2 tabs po today, then 1 tab daily x 4 more days for 5 Jun, Active benzonatate 200 mg oral capsule (16 sources) Non-narcotic Antitussive Start: 01-28-2024 End: 05-07-2024 take 1 capsule by mouth three times daily as needed for cough Benzonatate 200 mg capsule Discontinued 200 MG PO Three times daily as needed for cough 27 01March 16, 2024 1:00am May 07, 2024 10:25am Start: 07-01-2022 take 1 capsule by mo [facility] every eight hours Benzonatate 200 MG 1 capsule Orally Three times a day for 10 day(s) Jun, Active Calcium (4 sources) Phosphate Binder, Calcium CALCIUM ORAL Take by mouth. 0 Active Comment on above: Take by mouth. calcium carbonate 1250 mg oral tablet (20 sources) Start: 10-23-2021 End: 11-19-2023 take 1 tablet by mouth once daily Calcium Carbonate (Calcium 500) 500 mg calcium (1,250 mg) Tablet Discontinued 500 MG PO Daily October 23, 2021 12:00am November 19, 2023 10:51am take 2 tablets by mo [facility] every twenty-four hours Calcium 600 MG 2 tablet with meals Orally Once a day Active take 2 tablets by mo [facility] every twenty-four hours Calcium 600 MG 2 tablet with meals Orally Once a day Active take 1 tablet by mouth once osiel y calcium carbonate (OSCAL) 500 MG TABS tablet Take 1 tablet by mouth daily 0 Active eplerenone 25 mg oral tablet (20 sources) Aldosterone Antagonist Start: 09-11-2021 End: 12-24-2023 take 1 tablet by mouth once daily Eplerenone 25 mg tablet Discontinued 25 MG PO Daily October 23, 2021 12:00am November 19, 2023 10:52am fluticasone/umecli din/vilanter (TRELEGY ELLIPTA INHALATION) (4 sources) fluticasone/umec lid in/vilanter (TRELEGY ELLIPTA INHALATION) Inhale as instructed. 0 Active Comment on above: Inhale as instructed . gadoterate meglumine (DOTAREM) injection 20 mL (1 source) Start: 11-03-2019 End: 11-03-2019 gadoterate meglumine (DOTAREM) injection 20 mL 24 hr isosorbide mononitrate 30 mg extended release oral tablet (20 sources) Nitrate Vasodilator Start: 05-07-2024 End: 05-26-2024 take 1 tablet by mouth once daily, then take 1 tablet by mouth every twenty-four hours Isosorbide Mononitrate 30 mg tablet extended release 24 hr Discontinued 30 MG PO Daily May 07, 2024 1:00am May 26, 2024 12:29pm Start: 12-25-2023 isosorbide mon onitrate ER (Imdur) 30 MG 24 hr tablet 12/25/2023 Active Start: 12-25-2023 isosorbide mon onitrate 30 mg ER Tab Refills(s) 0 Start Date: 12/25/23 Status: Ordered Start: 12-24-2023 take 0.5 tablet by m outh once daily isosorbide mononitrate (IMDUR) 30 MG extended release tablet Take 0.5 tablets by mouth daily 30 tablet 3 12/24/2023 Active meloxicam 15 mg oral tablet (4 sources) Nonsteroidal Anti-inflammatory Drug take 1 tablet by mouth once daily meloxicam (MOBIC) 15 mg tablet Take 15 mg by mouth once daily. 0 Active Comment on above: Take 15 mg by mouth once daily. methylPREDNISolone 4 mg oral tablet (10 sources) Corticosteroid Start : 05-26 End: 06-21 Methylprednisolone 4 mg tablets,dose pack Discontinued 0 PO per package directions May 26, 2024 1:00am June 21, 2024 2:59pm PO PER PKG DIR for 6 days Start: 07-01-2022 methylPREDNISo lone 4 MG as directed Orally for 6 days Jun, Active Start: 10-20-2020 End: 10-20-2020 methylPREDNISolone sodium (S HOMERO-MEDROL) injection 125 mg metoprolol tartrate 25 mg oral tablet (12 sources) beta-Adrenergic [place] Start: 05-07-2024 End: 05-26-2024 Metoprolol Tartrate 25 mg tablet Discontinued 12.5 MG PO Daily May 07, 2024 1:00am May 26, 2024 12:29pm Start: 12-25-2023 take 1 tablet by emily th once daily Lopressor 25 mg oral tablet 25 mg = 1 tab(s), Oral, Daily, Refills(s) 0 Start Date: 12/25/23 Status: Ordered Start: 12-24-2023 take 0.5 tablet by m outh twice daily metoprolol tartrate (LOPRESSOR) 25 MG tablet Take 0.5 tablets by mouth 2 times daily 60 tablet 12/24/2023 Active Omeprazole Magnesium (Prilosec Otc) 20 mg Tablet,Delayed Release (Dr/Ec) (7 sources) Start: 02-23-2019 End: 10-23-2021 take 1 tablet by mouth once daily Omeprazole Magnesium (Prilosec Otc) 20 mg Tablet,Delayed Release (Dr/Ec) Discontinued 1 TAB PO Daily February 23, 2019 12:00am October 23, 2021 10:45am Start: 02-23-2019 End: 10-23-2021 take 1 tablet by mouth once daily Omeprazole Magnesium (Prilosec Otc) 20 mg Tablet,Delayed Release (Dr/Ec) Discontinued 1 TAB PO Daily February 23, 2019 1:00am October 23, 2021 11:45am technetium sestamibi (CARDIOLITE) injection 10 millicurie (1 source) Start: 12-23-2023 End: 12-23-2023 take 1 dose intravenously once 10 millicurie, IntraVENous, IMG ONCE PRN, 1 dose, Starting on Fri12/23/23 at 0706, Until Fri12/23/23 at 0657, Other technetium sestamibi (CARDIOLITE) injection 30 millicurie (1 source) Start: 12-23-2023 End: 12-23-2023 take 1 dose intravenously once 30 millicurie, IntraVENous, IMG ONCE PRN, 1 dose, Starting on Fri12/23/23 at 0706, Until Fri12/23/23 at 0807, Other triamcinolone acetonide 1 mg/ml topical cream (8 sources) Corticosteroid Start: 02-23-2019 End: 10-23-2021 Triamcinolone Acetonide 0.1 % cream Discontinued 1 DOSE TOPICAL As Directed February 23, 2019 1:00am October 23, 2021 11:45am Start: 02-23-2019 End: 10-23-2021 Triamcinolone Acetonide Disc ontinued 1 DOSE TOPICAL As Directed February 23, 2019 1:00am October 23, 2021 11:45am Problems Active Problems Problem Classification Problem Date Documented Da te Episodic/Chronic Abdominal pain (6 sources) Lower abdominal pain, unspecified; Translations: [Generalized abdominal pain] Onset: 3 Episodic Acquired foot deformities (4 sources) Hammer toe; Translations: [Other hammer toe(s) (acquired), left foot] 11-21-2024 Chronic Allergic reactions (3 sources) Eczema; Translations: [Other specified dermatitis] 03-08-2024 Episodic Cardiac and circulatory congenital anomalies (4 sources) Atrioventricular septal defect and common atrioventricular junction; Translations: [Atrioventricular septal defect] Chronic Cardiac dysrhythmias (20 sources) Atrial flutter; Translations: [Unspecified atrial flutter] Onset: 1 Chronic Chronic obstructive pulmonary disease and bronchiectasis (20 sources) Chronic obstructive lung disease; Translations: [Chronic obstructive pulmonary disease, unspecified] Onset: 1 Chronic Chronic obstructive pulmonary disease and bronchiectasis (16 sources) Bronchitis, not specified as acute or chronic; Translations: [Bronchitis] Onset: 3 Episodic Chronic ulcer of skin (3 sources) Non-pressure chronic ulcer of right heel and midfoot limited to breakdown of skin; Translations: [Ulcer of heel and midfoot] 07-15-2024 Chronic Coronary atherosclerosis and other heart disease (2 sources) Angina pectoris, unspecified; Translations: [Angina pectoris, unspecified] Onset: 4 Chronic Deficiency and other anemia (1 source) Normocytic anemia; Translations: [Anemia, unspecified] Episodic Deficiency and other anemia (17 sources) Iron deficiency anemia; Translations: [Iron deficiency anemia, unspecified] 06-05-2023 Episodic Deficiency and other anemia (2 sources) Iron deficiency anemia, unspecified; Translations: [Iron deficiency anemia] Onset: 2 Resolved: 2 Episodic Esophageal disorders (20 sources) Gastroesophageal reflux disease; Translations: [Gastro-esophageal reflux disease without esophagitis] Onset: 2 Resolved: 2 Chronic Comment on above: Problem List clean-u p per request of Phys. EHR Cmte Essential hypertension (20 sources) Essential hypertension; Translations: [Essential (primary) hypertension] Onset: 3 Chronic Gastrointestinal hemorrhage (12 sources) Rectal hemorrhage; Translations: [Hemorrhage of anus and rectum] Episodic Gout and other crystal arthropathies (20 sources) Gout; Translations: [Gout, unspecified] Onset: 4 12-06-2021 Chronic Heart valve disorders (11 sources) Aortic valve stenosis; Translations: [Nonrheumatic aortic (valve) stenosis] Onset: 4 Chronic Immunizations and screening for infectious disease (3 sources) Suspected disease caused by 2019-nCoV; Translations: [Suspected COVID-19 virus infection] Episodic Inflammatory conditions of male genital organs (9 sources) Acute infective balanitis; Translations: [Balanitis] 04-30-2024 Chronic Malaise and fatigue (10 sources) Fatigue; Translations: [Other fatigue] Onset: 4 Episodic Neoplasms of unspecified nature or uncertain behavior (1 source) Monoclonal gammopathy of uncertain significance; Translations: [Monoclonal gammopathy] Chronic Neoplasms of unspecified nature or uncertain behavior (2 sources) Neoplastic disease; Translations: [Neoplasm of unspecified behavior of bone, soft tissue, and skin] 03-08-2024 Episodic Nonmalignant breast conditions (2 sources) Mastodynia; Translations: [Pain of breast] Episodic Nonspecific chest pain (4 sources) Chest pain; Translations: [Chest pain, unspecified] Onset: 4 06-23-2024 Episodic Nutritional deficiencies (12 sources) Vitamin D deficiency; Translations: [Vitamin D deficiency, unspecified] Onset: 4 Chronic Other aftercare (2 sources) Encounter for removal of sutures Episodic Other circulatory disease (1 source) Vasculitis; Translations: [Arteritis, unspecified] Chronic Other circulatory disease (1 source) Nasal discharge; Translations: [Other specified symptoms and signs involving the circulatory and respiratory systems] Episodic Other circulatory disease (1 source) Elevated blood-pressure reading, without diagnosis of hypertension; Translations: [Elevated blood-pressure reading, without diagnosis of hypertension] Episodic Other circulatory disease (1 source) Elevated blood-pressure reading without diagnosis of hypertension; Translations: [Elevated blood-pressure reading, without diagnosis of hypertension] Episodic Other connective tissue disease (12 sources) Trochanteric bursitis; Translations: [Trochanteric bursitis, unspecified hip] Episodic Other connective tissue disease (2 sources) Olecranon bursitis; Translations: [Olecranon bursitis, right elbow] Episodic Other connective tissue disease (2 sources) Trochanteric bursitis of right hip; Translations: [Trochanteric bursitis, right hip] Episodic Other connective tissue disease (2 sources) Pain of toe of left foot; Translations: [Pain in left toe(s)] 11-21-2024 Episodic Other diseases of veins and lymphatics (12 sources) Peripheral venous insufficiency; Translations: [Venous insufficiency (chronic) (peripheral)] Episodic Other ear and sense organ disorders (1 source) Infective otitis externa; Translations: [Unspecified infective otitis externa] Onset: 7 Chronic Other ear and sense organ disorders (4 sources) Sensorineural hearing loss, bilateral; Translations: [Sensorineural hearing loss, bilateral] Onset: 5 10-05-2024 Chronic Other ear and sense organ disorders (1 source) Sensorineural hearing loss, bilateral; Translations: [Sensorineural hearing loss, bilateral] Onset: 5 Chronic Other ear and sense organ disorders (1 source) Impaired auditory discrimination; Translations: [Other abnormal auditory perceptions, bilateral] 10-05-2024 Episodic Other eye disorders (1 source) Unspecified optic atrophy; 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 Other gastrointestinal disorders (4 sources) Constipation; Translations: [Outlet dysfunction constipation] Episodic Other injuries and conditions due to external causes (2 sources) Other injury of other extensor muscle, fascia and tendon at forearm level, right arm, initial encounter; Translations: [Other injury of other extensor muscle, fascia and tendon at forearm level, right arm, initial encounter] Episodic Other lower respiratory disease (1 source) Cough; Translations: [Cough] Episodic Other lower respiratory disease (10 sources) Dyspnea, unspecified; Translations: [Other respiratory abnormalities] Onset: 2 Episodic Other lower respiratory disease (1 source) Solitary pulmonary nodule; Translations: [Solitary pulmonary nodule] Episodic Other lower respiratory disease (1 source) Solitary nodule of lung; Translations: [Solitary pulmonary nodule] Episodic Other lower respiratory disease (7 sources) Dyspnea; Translations: [Shortness of breath] Onset: 5 12-12-2023 Episodic Other lower respiratory disease (2 sources) Shortness of breath; Translations: [Shortness of breath] Onset: 5 Episodic Other nervous system disorders (12 sources) Chronic pain; Translations: [Other chronic pain] Chronic Other nervous system disorders (20 sources) Neuropathy; Translations: [Idiopathic progressive neuropathy] Onset: 3 10-18-2022 Chronic Other nervous system disorders (7 sources) Idiopathic progressive polyneuropathy; Translations: [Idiopathic progressive neuropathy] 03-11-2024 Chronic Other non-traumatic joint disorders (12 sources) Hip pain; Translations: [Pain in unspecified hip] Episodic Other non-traumatic joint disorders (1 source) Pain in left knee Episodic Other non-traumatic joint disorders (2 sources) Arthralgia of the lower leg; Translations: [Pain in right knee] Episodic Other screening for suspected conditions (not mental disorders or infectious disease) (2 sources) Imaging result abnormal; Translations: [Abnormal findings on diagnostic imaging of other specified body structures] Chronic Other screening for suspected conditions (not mental disorders or infectious disease) (20 sources) Electrocardiogram abnormal; Translations: [Abnormal electrocardiogram [ECG] [EKG]] Onset: 3 Episodic Other skin disorders (1 source) Finding of color of limb; Translations: [Disorder of pigmentation, unspecified] Episodic Other skin disorders (1 source) Dyshidrosis [pompholyx]; Translations: [Dyshidrosis [pompholyx]] Episodic Other skin disorders (1 source) Vesicular eczema of hands and/or feet; Translations: [Dyshidrosis [pompholyx]] Episodic Other skin disorders (2 sources) Seborrheic keratosis; Translations: [Other seborrheic keratosis] 03-08-2024 Episodic Other skin disorders (5 sources) Actinic keratosis; Translations: [Actinic keratosis] 03-08-2024 Episodic Other skin disorders (2 sources) Inflamed seborrheic keratosis; Translations: [Inflamed seborrheic keratosis] 11-10-2024 Episodic Other skin disorders (2 sources) Callosity; Translations: [Corns and callosities] 11-21-2024 Episodic Other upper respiratory disease (4 sources) Nasal congestion; Translations: [Nasal congestion] 04-30-2024 Episodic Other upper respiratory disease (7 sources) Nasal congestion; Translations: [Other disease of nasal cavity and sinuses] 04-30-2024 Episodic Other upper respiratory infections (2 sources) Chronic sinusitis, unspecified; Translations: [Chronic sinusitis] Chronic Other upper respiratory infections (11 sources) Acute pharyngitis; Translations: [Acute pharyngitis, unspecified] Onset: 8 11-20-2023 Episodic Residual codes; unclassified (1 source) Peripheral edema; Translations: [Edema, unspecified] Episodic Residual codes; unclassified (1 source) Edema of lower extremity; Translations: [Localized edema] Episodic Residual codes; unclassified (1 source) Tobacco use; Translations: [Tobacco use] Episodic Residual codes; unclassified (2 sources) Localized edema; Translations: [Localized edema] Episodic Residual codes; unclassified (1 source) Tobacco user; Translations: [Tobacco use] Episodic Residual codes; unclassified (3 sources) Uncircumcised penis; Translations: [Other specified health status] 04-30-2024 Episodic Residual codes; unclassified (3 sources) Other specified health status; Translations: [Other specified conditions influencing health status] 04-30-2024 Episodic Skin and subcutaneous tissue infections (2 sources) Cellulitis of left finger; Translations: [Cellulitis of finger of left hand] Episodic Spondylosis; intervertebral disc disorders; other back problems (20 sources) Degeneration of lumbar intervertebral disc; Translations: [Other intervertebral disc degeneration, lumbar region] 06-05-2023 Chronic Spondylosis; intervertebral disc disorders; other back problems (4 sources) Sacrococcygeal disorders, not elsewhere classified; Translations: [Disorder of sacrum] Onset: 9 Episodic Sprains and strains (2 sources) Sprain of knee and leg; Translations: [Sprain and strain of other specified sites of knee and leg] Episodic Superficial injury; contusion (3 sources) Abrasion of foot, infected; Translations: [Abrasion, right foot, initial encounter] 07-18-2024 Episodic Unclassified (1 source) Compression fracture of thoracic vertebra; Translations: [Compression fracture of thoracic vertebra, initial encounter, unspecified thoracic vertebral level (HCC)] Unclassified (1 source) CONTACT W/AND (SUSP) EXPOS COVID-19; Translations: [CONTACT W/AND (SUSP) EXPOS COVID-19] Onset: 2 Unclassified (1 source) Unspecified infective otitis externa; Translations: [Unspecified infective otitis externa] Onset: 7 Unclassified (1 source) Need for prophylactic vaccination and inoculation, Influenza; Translations: [Need for prophylactic vaccination and inoculation, Influenza] Onset: 8 Unclassified (1 source) Body mass index 27.0-27.9, adult; Translations: [Body mass index 27.0-27.9, adult] Onset: 8 Unclassified (1 source) Bacterial infection, unspecified, in conditions classified elsewhere and of unspecified site; Translations: [Bacterial infection, unspecified, in conditions classified elsewhere and of unspecified site] Onset: 8 Unclassified (1 source) Pain in joint, pelvic region and thigh; Translations: [Pain in joint, pelvic region and thigh] Onset: 5 Unclassified (1 source) Special screening for malignant neoplasm of prostate; Translations: [Special screening for malignant neoplasm of prostate] Onset: 5 Varicose veins of lower extremity (12 sources) Venous stasis ulcer of leg; Translations: [Varicose veins of right lower extremity with ulcer of unspecified site] Episodic Past or Other Problems Problem Classification Problem Date Documented Date Episodic/Chronic Bacterial infection; unspecified site (1 source) Bacterial infectious disease; Translations: [Bacterial infection, unspecified, in conditions classified elsewhere and of unspecified site] Onset: 05-07-2017 Episodic Deficiency and other anemia (20 sources) Anemia; Translations: [Anemia, unspecified] Onset: 02-24-2019 12-06-2021 Episodic Mycoses (20 sources) Onychomycosis due to dermatophyte ; Translations: [Tinea unguium] Onset: 10-18-2022 10-18-2022 Episodic Other and unspecified benign neoplasm (2 sources) Benign neoplasm of colon; Translations: [Benign neoplasm of colon] Onset: 02-09-2013 Episodic Other connective tissue disease (1 source) Loss of height; Translations: [Loss of height] Onset: 10-26-2015 Episodic Other connective tissue disease (1 source) Decrease in height; Translations: [Loss of height] Onset: 10-26-2015 Episodic Other ear and sense organ disorders (2 sources) Acute otitis externa; Translations: [Acute swimmers' ear] Onset: 12-24-2016 Episodic Other injuries and conditions due to external causes (1 source) Closed injury of head; Translations: [Closed head injury, initial encounter] Episodic Other lower respiratory disease (20 sources) Nodule of lung; Translations: [Solitary pulmonary nodule] Onset: 12-21-2019 12-06-2021 Episodic Other lower respiratory disease (1 source) Other abnormalities of breathing; Translations: [OTHER ABNORMALITIES OF BREATHING] Onset: 08-24-2021 Episodic Other non-epithelial cancer of skin (20 sources) Basal cell carcinoma of face; Translations: [Basal cell carcinoma of skin of unspecified parts of face] Onset: 10-18-2022 10-18-2022 Episodic Other non-traumatic joint disorders (1 source) Arthralgia of the pelvic region and thigh; Translations: [Pain in joint, pelvic region and thigh] Onset: 09-08-2014 Episodic Other nutritional; endocrine; and metabolic disorders (1 source) Overweight; Translations: [Overweight] Onset: 05-07-2017 Episodic Other nutritional; endocrine; and metabolic disorders (1 source) Overweight; Translations: [Overweight] Onset: 05-07-2017 Episodic Other nutritional; endocrine; and metabolic disorders (1 source) Body mass index 25-29 - overweight; Translations: [Body mass index 27.0-27.9, adult] Onset: 05-07-2017 Episodic Residual codes; unclassified (1 source) Requires influenza virus vaccination; Translations: [Need for prophylactic vaccination and inoculation, Influenza] Onset: 01-26-2018 Episodic Unclassified (20 sources) Onset: 12-06-2021 12-06-2021 Viral infection (2 sources) Herpes zoster without complication; Translations: [Herpes zoster without mention of complication] Onset: 08-29-2014 Episodic Results Test Name Value Interpretation Reference Range Facility Main OR Intraoperative Recor don 12-03-2024 Main OR Intraoperative Record Main OR Intraoperative Record IntraOp Document Type FTPM Summary Primary Physician: Daniel Hair DO Finalized Date/Time: 12/03/24 12:18:41 Pt. Name: BRET YAP Josephine/Sex: 1940 Male Med Rec #: [id number] Physician: Daniel Hair DO Financial #: [id number] Pt. Type: P Room/Bed: / Admit/Disch: 12/03/24 10:52:36 - Institution: Case Times FTPM Entry 1 Patient Times In Room 12/03/24 12:02:00 Out Room 12/03/24 12:19:00 Procedure Times Start 12/03/24 12:05:00 Stop 12/03/24 12:18:00 Anesthesia Times Last Modified By: Pamela Carey RN 12/03/24 12:18:15 Case Attendance FTPM Entry 1 Entry 2 Entry 3 Case Attendee Daniel Hair DO, RN, Valentine Jacobs Role Performed Surgeon - Primary News Anchor - Primary Storage Management Architect Time In 12/03/24 12:02:00 12/03/24 12:02:00 12/03/24 12:02:00 Time Out 12/03/24 12:19:00 12/03/24 12:19:00 12/03/24 12:19:00 Procedure CERVICAL RADIO CERVICAL RADIO CERVICAL RADIO FREQUENCY FREQUENCY FREQUENCY ABLATION(Right) ABLATION(Right) ABLATION(Right) Comments Last Modified By: Pamela Carey RN, RN, Madison A Pritchard RN, Madison A 12/03/24 12:18:16 12/03/24 12:18:16 12/03/24 12:18:16 Entry 4 Case Attendee Anastasia Jose RN Role Performed Scrub - Primary Time In 12/03/24 12:02:00 Time Out 12/03/24 12:19:00 Procedure CERVICAL RADIO FREQUENCY ABLATION(Right) Comments Last Modified By: Pamela Carey RN 12/03/24 12:18:16 Perioperative Protocols FTPM Pre-Care Text: Implements protective measures prior to operative or invasive procedure, confirms identity before the operative or invasive procedure, verifies operative procedure, surgical site, and laterality Entry 1 Procedure(s) CERVICAL RADIO Patient Identity Birthday, ID Band FREQUENCY Verified (select at Check, Patient ABLATION(Right) least 2): Participation Consents / H and P H&P, Surgery/Procedure Operative Site Present Verified Consent Marking Verified Surgical Site Yes Laterality Verified Yes Verified Procedure Verified Yes Correct Patient Yes Position Verified Availability Equipment, Medication, Prep Dry Yes Verified (If X-ray Applicable) PreOp Antibiotic No Time Out Pamela Carey RN, Rebeca PERKINS, Reginaldo Pérez DO, Bradford A., Valentine Miller Time Out Complete 12/03/24 12:04:00 Outcomes Met? Yes Last Modified By: Pamela Carey RN 12/03/24 12:04:49 Post-Care Text: The patient is free from signs and symptoms of injury caused by extraneous objects Allergy Information FTPM Pre-Care Text: Verifies allergies Entry 1 Allergies Reviewed? Yes Allergies Reviewed Self/Patient With Outcomes Met? Yes Last Modified By: Pamela Carey RN 12/03/24 11:59:16 Post-Care Text: The patient received appropriate medication(s) safely administered during the perioperative period Surgical Procedures FTPM Entry 1 Procedure Description Procedure CERVICAL RADIO Modifiers Right FREQUENCY ABLATION Surgeon Description CERVICAL RFA FOR C5/6 AND C6/7 FACET W/FLUORO Primary Procedure Yes Primary Surgeon Daniel Hair DO Start 12/03/24 12:05:00 Stop 12/03/24 12:18:00 Anesthesia Type None Surgical Service Pain Management Wound Class 1 - Clean Last Modified By: Pamela Carey RN 12/03/24 12:18:17 General Case Data FTPM Pre-Care Text: Classifies surgical wound, implements aseptic technique, initiates traffic control Entry 1 Case Information OR Pain Proc Room Case Level Level 2 Wound Class 1 - Clean Specialty Pain Management Preop Diagnosis M47.812 Postop Same As Preop Yes Postop Diagnosis M47.812 Outcomes Met? Yes Last Modified By: Pamela Carey RN 12/03/24 12:04:58 Post-Care Text: The patient is free from signs and symptoms of infection Skin Assessment (Pre Procedure) FTPM Pre-Care Text: Implements protective measures to prevent skin/ tissue injury due to thermal or mechanical sources Evaluates for signs and symptoms of physical injury to skin and tissue Entry 1 Skin Integrity Intact, [place], Warm, & Skin Abnormality No Dry Outcomes Met? Yes Last Modified By: Cherry PERKINS, Pamela Rosenthal 12/03/24 11:59:23 Post-Care Text: The patient is free from signs and symptoms of injury caused by extraneous objects Patient Positioning FTPM Pre-Care Text: Identifies physical alterations that require additional precautions for procedure-specific positioning, verifies presence of prosthetics or corrective devices, positions the patient, evaluates the patient for signs and symptoms of injury as a result of positioning Entry 1 Procedure CERVICAL RADIO Body Position Prone FREQUENCY ABLATION(Right) Feet Uncrossed? Yes Left Arm Position Resting at Side Right Arm Position Resting at Side Left Leg Position Extended Right Leg Position Extended Positioning Device Pillow Under Head Large, Safety Strap, Pillow La (more content not included)... Normal [facility] No Panel Informationon 11-10 [facility] PSA, [employer] 08-06-2024 Prostate specific Ag [Mass/Vol] 3.37 ng/mL 0.00 - 4.00 ng/mL [facility] Comment on above: The [employer] ECLIA as say is used. Results obtained with different assay methods cannot be used interchangeably. [facility] Prostatic Spec. Ag 3.37 ng/mL Normal 0.00-4.00 [facility] Comment on above: Result Comment: The [employer] ECLIA assay is used. Results obtained with different assay methods cannot be used interchangeably. Performed By: #### P SAD #### [facility] [place] [address] Last Ironer: Wilian Calvillo MD XR CHEST (2 VW)on 06-23-2024 XR CHEST (2 VW) EXAM: XR CHEST (2 VW ) HISTORY: Chest pain, unspecified type COMPARISON: 04/29/2024. IMPRESSION: FINDINGS/IMPRESSION: 1. Hiatal hernia unchanged. 2. Mild stable cardiomegaly. 3. No mass or pneumonia. 4. Prominent interstitial markings in the lower lobes, stable. Interpreted by: Lopez Hough Jr., MD Signed by: Lopez Hough Jr., MD 06/23/24 Final result Normal [facility] XR Chest 2 Viewson FINDINGS/IMPRESSION: 1. Hiatal hernia unchanged. 2. Mild stable cardiomegaly. 3. No mass or pneumonia. 4. Prominent interstitial markings in the lower lobes, stable. [facility] RIS CONSOLIDATED EXAM: XR CHEST (2 VW ) HISTORY: Chest pain, unspecified type COMPARISON: 04/29/2024. [facility] RIS CONSOLIDATED Lopez Hough Jr., MD - 06/23/2024 EXAM: XR CHEST (2 VW) HISTORY: Chest pain, unspecified type COMPARISON: 04/29/2024. IMPRESSION: FINDINGS/IMPRESSION: 1. Hiatal hernia unchanged. 2. Mild stable cardiomegaly. 3. No mass or pneumonia. 4. Prominent interstitial markings in the lower lobes, stable. [facility] Radiology Study observation (narrative) [facility] XR Chest 2 ViewsOrdered By: Lopez Hough on 06-23-2024 [facility] Work Phone: Cryotherapy, skin lesionon 0 06-14-2024 [facility] XR CHEST (2 VW)on 04-29-2024 XR CHEST (2 VW) EXAM: XR CHEST (2 VW ) HISTORY: Shortness of breath COMPARISON: Chest 08/27/2023. Abdominal CT 07/12/2022, [place]. IMPRESSION: FINDINGS/IMPRESSION: 1. Scarring and chronic parenchymal densities at the right mid and lower lung field are not significant changed. 2. Moderate-sized hiatal hernia better seen on the CT. 3. Mild stable cardiomegaly. 4. No acute change. Interpreted by: Lopez Hough Jr., MD Signed by: Lopez Hough Jr., MD 04/29/24 Final result Normal [facility] XR Chest 2 Viewson FINDINGS/IMPRESSION: 1. Scarring and chronic parenchymal densities at the right mid and lower lung field are not significant changed. 2. Moderate-sized hiatal hernia better seen on the CT. 3. Mild stable cardiomegaly. 4. No acute change. [facility] RIS CONSOLIDATED EXAM: XR CHEST (2 VW ) HISTORY: Shortness of breath COMPARISON: Chest 08/27/2023. Abdominal CT 07/12/2022, [place]. PN RIS CONSOLIDATED Lopez Hough Jr., MD - 04/29/2024 EXAM: XR CHEST (2 VW) HISTORY: Shortness of breath COMPARISON: Chest 08/27/2023. Abdominal CT 07/12/2022, [place]. IMPRESSION: FINDINGS/IMPRESSION: 1. Scarring and chronic parenchymal densities at the right mid and lower lung field are not significant changed. 2. Moderate-sized hiatal hernia better seen on the CT. 3. Mild stable cardiomegaly. 4. No acute change. [facility] Radiology Study observation (narrative) [facility] 2 ViewsOrdered By: Lopez Hough on 04-29-2024 [facility] Work Phone: CBC with Auto Differentialon 04-26-2024 Basophils (Bld) [#/Vol] 0.04 10*3/uL [facility] Basophils/100 WBC (Bld) 1 % 0 - 2 % [facility] Eosinophils (Bld) [#/Vol] 0.14 10*3/uL [facility] Eosinophils/100 WBC (Bld) 2 % 0 - 5 % [facility] Erythrocyte distribution width (RBC) [Ratio] 14.8 % 12.1 - 15.2 % [facility] Hematocrit (Bld) [Volume fraction] 32.0 % Low 41.0 - 53.0 % [facility] Hemoglobin (Bld) [Mass/Vol] 10.0 g/dL Low 13.5 - 17.5 g/dL [facility] Immature granulocytes (Bld) [#/Vol] 0.01 10*3/uL [facility] Immature granulocytes/100 WBC (Bld) 0 % 0 - 5 % [facility] Interpretation and review of laboratory results Abnormal [facility] Lymphocytes/100 WBC (Bld) 16 % 13 - 44 % [facility] Lymphocytes/100 WBC (Bld) 0.91 % Low [facility] MCH (RBC) [Entitic mass] 28.7 pg 26.0 - 34.0 pg [facility] MCHC (RBC) [Mass/Vol] 31.3 g/dL 31.0 - 37.0 g/dL [facility] MCV (RBC) [Entitic vol] 92.0 fL 80.0 - 100.0 fL [facility] Monocytes/100 WBC (Bld) 15 % High 5 - 9 % [facility] Monocytes/100 WBC (Bld) 0.85 % [facility] Neutrophils/100 WBC (Bld) 66 % 39 - 75 % [facility] Platelet mean volume (Bld) [Entitic vol] 9.9 fL 6.0 - 12.0 fL [facility] Platelets (Bld) [#/Vol] 203 10*3/uL [facility] RBC (Bld) [#/Vol] 3.48 10*6/uL Low 4.50 - 5.9 0 m/uL [facility] Segmented neutrophils/100 WBC (Bld) 3.93 % [facility] WBC other (Bld) [#/Vol] 5.9 [facility] CBC with Diffon 04-26-2024 Abs. Basophil 0.04 k/uL Normal 0.00-0.20 [facility] Comment on above: Performed By: #### DELANO Haq CP, CDP #### [facility] [address] [place] [address] Last Ironer: William Iqbal MD #### AMAYA FRAIRE FT4 #### [facility] [employer] [address] [place], [place] [phone] Last Ironer: Wilian Calvillo MD Abs.Imm.Granulocyte 0.01 k/uL Normal 0.00-0.30 [facility] Comment on above: Performed By: #### LORENA HaqX CP, CDP #### [facility] [address] [place] [address] Last Ironer: William Iqbal MD #### AMAYA FRAIRE, FT4 #### [place] [id number] Last Ironer: Wilian Calvillo MD Abs.Neutrophil (Seg) 3.93 k/uL Normal 2.1-6.5 [facility] Comment on above: Performed By: #### Steffany Schmitt, DELANO, CP, CDP #### [facility] [address] [place] [phone] Last Ironer: William Iqbal MD #### VD25, LIPR, FT4 #### [address] [id number] Last Ironer: Wilian Calvillo MD Basophils/100 WBC (Bld) 1 % Normal 0-2 [facility] Comment on above: Performed By: #### Steffany Schmitt, DELANO, PRITESH, CDP #### [facility] [address] [place] [phone] Last Ironer: William Iqbal MD #### YEE, LIPR, FT4 #### [place] [address] Last Ironer: Wilian Calvillo MD Eosinophils (Bld) [#/Vol] 0.14 10*3/uL Normal 0.00-0.40 [facility] Comment on above: Performed By: #### Steffany Schmitt, TSHIvelisse, CP, CDP #### [facility] [address] [place] [phone] Last Ironer: William Iqbal MD #### YEE, LIPR, FT4 #### [place] [phone] Last Ironer: Wilian Calvillo MD Eosinophils/100 WBC (Bld) 2 % Normal 0-5 [facility] Comment on above: Performed By: #### Steffany Schmitt, TSHIvelisse, CP, CDP #### [facility] [address] [place] [phone] Last Ironer: William Iqbal MD #### YEE, LIPR, FT4 #### [address] [phone] Last Ironer: Wilian Calvillo MD Erythrocyte distribution width (RBC) [Ratio] 14.8 % Normal 12.1-15.2 [facility] Comment on above: Performed By: #### M G, TSHX, CP, CDP #### [facility] [address] [place], [place] [phone] Last Ironer: William Iqbal MD #### VD25, LIPR, FT4 #### [address] [id number] Last Ironer: Wilian Calvillo MD Hematocrit (Bld) [Volume fraction] 32.0 % Low 41.0-53.0 [facility] Comment on above: Performed By: #### M G, TSHX, CP, CDP #### [facility] [address] [place], [place] [phone] Last Ironer: William Iqbal MD #### VD25, LIPR, FT4 #### [address] [phone] Last Ironer: Wilian Calvillo MD Hemoglobin (Bld) [Mass/Vol] 10.0 g/dL Low 13.5-17.5 [facility] Comment on above: Performed By: #### M G, TSHX, CP, CDP #### [facility] [address] [place], [place] [phone] Last Ironer: William Iqbal MD #### VD25, LIPR, FT4 #### [address] [phone] Last Ironer: Wilian Calvillo MD Immature granulocytes/100 WBC (Bld) 0 % Normal 0-5 [facility] Comment on above: Performed By: #### M G, TSHX, CP, CDP #### [facility] [address] [place], [place] [phone] Last Ironer: William Iqbal MD #### VD25, LIPR, FT4 #### [address] [address] Last Ironer: Wilian Calvillo MD Lymphocytes (Bld) [#/Vol] 0.91 10*3/uL Low 1.00-4.80 [facility] Comment on above: Performed By: #### Steffany Schmitt, TSHX, CP, CDP #### [facility] [address] [place] [phone] Last Ironer: William Iqbal MD #### VD25, LIPR, FT4 #### [place] [phone] Last Ironer: Wilian Calvillo MD Lymphocytes/100 WBC (Bld) 16 % Normal 13-44 [facility] Comment on above: Performed By: #### Steffany Schmitt, TSHX, CP, CDP #### [facility] [address] [place] [phone] ( Last Ironer: William Iqbal MD #### YEE, LIPR, FT4 #### [place] [phone] Last Ironer: Wilian Calvillo MD MCH (RBC) [Entitic mass] 28.7 pg Normal 26.0-34.0 [facility] Comment on above: Performed By: #### Steffany Schmitt, TSHX, CP, CDP #### [facility] [address] [place] [address] Last Ironer: William Iqbal MD #### VD25, LIPR, FT4 #### [place] [phone] Last Ironer: Wilian Calvillo MD MCHC (RBC) [Mass/Vol] 31.3 g/dL Normal 31.0-37.0 [facility] Comment on above: Performed By: #### Steffany G, TSHX, CP, CDP #### [facility] [address] [place], [place] [phone] Last Ironer: William Iqbal MD #### VD25, LIPR, FT4 #### [address] [phone] Last Ironer: Wilian Calvillo MD MCV (RBC) [Entitic vol] 92.0 fL Normal 80.0-100.0 [facility] Comment on above: Performed By: #### M G, TSHX, CP, CDP #### [facility] [address] [place], [place] [phone] Last Ironer: William Iqbal MD #### VD25, LIPR, FT4 #### [address] [phone] Last Ironer: Wilian Calvillo MD Monocytes (Bld) [#/Vol] 0.85 10*3/uL Normal 0.00-1.00 [facility] Comment on above: Performed By: #### M G, TSHX, CP, CDP #### [facility] [address] [place], [place] [phone] Last Ironer: William Iqbal MD #### VD25, LIPR, FT4 #### [address] [phone] Last Ironer: Wilian Calvillo MD Monocytes/100 WBC (Bld) 15 % High 5-9 [facility] Comment on above: Performed By: #### M G, TSHX, CP, CDP #### [facility] [address] [place], [place] [phone] Last Ironer: William Iqbal MD #### VD25, LIPR, FT4 #### [address] [address] Last Ironer: Wilian Calvillo MD Neutrophil (Seg) 66 % Normal 39-75 [facility] Comment on above: Performed By: #### M G, TSHX, CP, CDP #### [facility] [address] [place] [address] Last Ironer: William Iqbal MD #### VD25, LIPR, FT4 #### [address] [address] Last Ironer: Wilian Calvillo MD Platelet mean volume (Bld) [Entitic vol] 9.9 fL Normal 6.0-12.0 [facility] Comment on above: Performed By: #### M G, TSHX, CP, CDP #### [facility] [address] [place] [address] Last Ironer: William Iqbal MD #### VD25, LIPR, FT4 #### [address] [address] Last Ironer: Wilian Calvillo MD Platelets (Bld) [#/Vol] 203 10*3/uL Normal 140-450 [facility] Comment on above: Performed By: #### Steffany G, TSHX, CP, CDP #### [facility] [address] [place] [address] Last Ironer: William Iqbal MD #### VD25, LIPR, FT4 #### [address] [address] Last Ironer: Wilian Calvillo MD RBC (Bld) [#/Vol] 3.48 10*6/uL Low 4.50-5.90 [facility] Comment on above: Performed By: #### M G, TSHX, CP, CDP #### [facility] [address] [place] [address] Last Ironer: William Iqbal MD #### VD25, LIPR, FT4 #### [address] [phone] Last Ironer: Wilian Calvillo MD WBC (Bld) [#/Vol] 5.9 10*3/uL Normal 3.5-11.0 [facility] Comment on above: Performed By: #### M G, TSHX, CP, CDP #### [facility] [address] [place] [address] Last Ironer: William Iqbal MD #### VD25, LIPR, FT4 #### [place] [address] [place] [address] Last Ironer: Wilian Calvillo MD Comp Metabolic Profon 2024 Albumin [Mass/Vol] 3.7 g/dL Normal 3.5-5.2 [facility] Comment on above: Performed By: #### M G, TSHX, CP, CDP #### [facility] [address] [place], [place] [phone] Last Ironer: William Iqbal MD #### VD25, LIPR, FT4 #### [address] [address] Last Ironer: Wilian Calvillo MD Alkaline Phos 155 U/L High 40-129 [facility] Comment on above: Performed By: #### M G, TSHX, CP, CDP #### [facility] [address] [place] [address] Last Ironer: William Iqbal MD #### VD25, LIPR, FT4 #### [place] [address] [place] [address] Last Ironer: Wilian Calvillo MD ALT [Catalytic activity/Vol] 15 U/L Normal 5-41 [facility] Comment on above: Performed By: #### M G, TSHX, CP, CDP #### [facility] [address] [place], [place] [phone] Last Ironer: William Iqbal MD #### VD25, LIPR, FT4 #### [place] [address] [place], [place] [phone] Last Ironer: Wilian Calvillo MD Anion gap [Moles/Vol] 4 mmol/L Low 9-17 [facility] Comment on above: Performed By: #### M G, TSHX, CP, CDP #### [facility] [address] [place], [place] [phone] Last Ironer: William Iqbal MD #### VD25, LIPR, FT4 #### [place] [address] [place], [place] [phone] Last Ironer: Wilian Calvillo MD AST [Catalytic activity/Vol] 21 U/L Normal <40 [facility] Comment on above: Performed By: #### M G, TSHX, CP, CDP #### [facility] [address] [place], [place] [phone] Last Ironer: William Iqbal MD #### VD25, LIPR, FT4 #### [address] [phone] Last Ironer: Wilian Calvillo MD Bilirubin [Mass/Vol] 0.5 mg/dL Normal 0.3-1.2 [facility] Comment on above: Performed By: #### M G, TSHX, CP, CDP #### [facility] [address] [place], [place] [phone] Last Ironer: William Iqbal MD #### VD25, LIPR, FT4 #### [address] [phone] Last Ironer: Wilian Calvillo MD BUN/CRE Ratio 20 Normal 9-20 [facility] Comment on above: Performed By: #### M G, TSHX, CP, CDP #### [facility] [address] [place], [place] [phone] Last Ironer: William Iqbal MD #### VD25, LIPR, FT4 #### [place] [address] [place], [place] [phone] Last Ironer: Wilian Calvillo MD Calcium [Mass/Vol] 8.7 mg/dL Normal 8.6-10.4 [facility] Comment on above: Performed By: #### M G, TSHX, CP, CDP #### [facility] [address] [place], [place] [phone] Last Ironer: William Iqbal MD #### VD25, LIPR, FT4 #### [address] [phone] Last Ironer: Wilian Calvillo MD Chloride [Moles/Vol] 104 mmol/L Normal 98-107 [facility] Comment on above: Performed By: #### M G, TSHX, CP, CDP #### [facility] [address] [place] [address] Last Ironer: William Iqbal MD #### VD25, LIPR, FT4 #### [place] [phone] Last Ironer: Wilian Calvillo MD CO2 [Moles/Vol] 30 mmol/L Normal 20-31 [facility] Comment on above: Performed By: #### M G, TSHX, CP, CDP #### [facility] [address] [place] [address] Last Ironer: William Iqbal MD #### VD25, LIPR, FT4 #### [address] [phone] Last Ironer: Wilian Calvillo MD Creatinine [Mass/Vol] 1.1 mg/dL Normal 0.7-1.2 [facility] Comment on above: Performed By: #### M G, TSHX, CP, CDP #### [facility] [address] [place] [address] Last Ironer: William Iqbal MD #### AMAYA FRAIRE FT4 #### [place] [address] [place] [address] Last Ironer: Wilian Calvillo MD GFR/1.73 sq M.predicted among non-blacks MDRD (S/P/Bld) [Vol rate/Area] 67 mL/min/{1.73_m2} Normal >60 [facility] Comment on above: Result Comment: These results are not intended for use in patients <18 years of age. eGFR results are calculated without a race factor using the 2020 CKD-EPI equation. Careful clinical correlation is recommended, particularly when comparing to results calculated using previous equations. The CKD-EPI equation is less accurate in patients with extremes of muscle mass, extra-renal metabolism of creatine, excessive creatine ingestion, or following therapy that affects renal tubular secretion. Performed By: #### Steffany Schmitt, TSHIvelisse, CP, CDP #### [facility] [address] [place] [address] Last Ironer: William Iqbal MD #### AMAYA FRAIRE FT4 #### [address] [address] Last Ironer: Wilian Calvillo MD Glucose [Mass/Vol] 84 mg/dL Normal 70-99 [facility] Comment on above: Performed By: #### Steffany Schmitt, TSHX, CP, CDP #### [facility] [address] [place] [address] Last Ironer: William Iqbal MD #### AMAYA FRAIRE, FT4 #### [address] [address] Last Ironer: Wilian Calvillo MD Potassium [Moles/Vol] 4.1 mmol/L Normal 3.7-5.3 [facility] Comment on above: Performed By: #### Steffany Schmitt, TSHX, CP, CDP #### [facility] [address] [place], [place] 2485590 Last Ironer: William Iqbal MD #### VD25, LIPR, FT4 #### [place] [address] [place], [place] [phone] Last Ironer: Wilian Calvillo MD Protein [Mass/Vol] 6.9 g/dL Normal 6.4-8.3 [facility] Comment on above: Performed By: #### M G, TSHX, CP, CDP #### [facility] [address] [place], [place] [phone] Last Ironer: William Iqbal MD #### YEE, LIPR, FT4 #### [address] [phone] Last Ironer: Wilian Calvillo MD Sodium [Moles/Vol] 138 mmol/L Normal 135-144 [facility] Comment on above: Performed By: #### Steffany Schmitt, TSHX, CP, CDP #### [facility] [address] [place], [place] [phone] Last Ironer: William Iqbal MD #### YEE, LIPR, FT4 #### [address] [phone] Last Ironer: Wilian Calvillo MD Urea nitrogen [Mass/Vol] 22 mg/dL Normal 8-23 [facility] Comment on above: Performed By: #### M Oskar, TSHX, CP, CDP #### [facility] [address] [place], [place] [phone] Last Ironer: William Iqbal MD #### VD25, LIPR, FT4 #### [address] [phone] Last Ironer: Wilian Calvillo MD Comprehensive Metabolic Pane [facility] 04-26-2024 Albumin [Mass/Vol] 3.7 g/dL 3.5 - 5.2 g/dL [facility] ALP [Catalytic activity/Vol] 155 U/L High 40 - 129 U/L [facility] ALT [Catalytic activity/Vol] 15 U/L 5 - 41 U/L [facility] Anion gap [Moles/Vol] 4 mmol/L Low 9 - 17 mmol/L [facility] AST [Catalytic activity/Vol] 21 U/L NINF - 40 U/L [facility] Bilirubin [Mass/Vol] 0.5 mg/dL 0.3 - 1 .2 mg/dL [facility] Calcium [Mass/Vol] 8.7 mg/dL 8.6 - 10. 4 mg/dL [facility] Chloride [Moles/Vol] 104 mmol/L 98 - 10 7 mmol/L [facility] CO2 [Moles/Vol] 30 mmol/L 20 - 31 mmol/L [facility] Creatinine [Mass/Vol] 1.1 mg/dL 0.7 - 1.2 mg/dL [facility] Est, Glom Filt Rate 67 - PINF [facility] Comment on above: These results are not intended for use in patients <18 years of age. eGFR results are calculated without a race factor using the 2020 CKD-EPI equation. Careful clinical correlation is recommended, particularly when comparing to results calculated using previous equations. The CKD-EPI equation is less accurate in patients with extremes of muscle mass, extra-renal metabolism of creatine, excessive creatine ingestion, or following therapy that affects renal tubular secretion. Glucose [Mass/Vol] 84 mg/dL 70 - 99 mg/dL [facility] Interpretation and review of laboratory results Abnormal [facility] Potassium [Moles/Vol] 4.1 mmol/L 3.7 - 5.3 mmol/L [facility] Protein [Mass/Vol] 6.9 g/dL 6.4 - 8.3 g/dL [facility] Sodium [Moles/Vol] 138 mmol/L 135 - 144 mmol/L [facility] Urea nitrogen [Mass/Vol] 22 mg/dL 8 - 23 mg/dL [facility] Urea nitrogen/Creatinine [Mass ratio] 20 mg/mg 9 - 20 [facility] Lipid Panelon 04-26-2024 Cholesterol [Mass/Vol] 113 mg/dL 0 - 1 99 mg/dL [facility] Comment on above: Cholesterol Guidelines: <200 Desirable 200-240 Borderline >240 Undesirable Cholesterol in HDL [Mass/Vol] 48 mg/dL 40 - PINF mg/dL [facility] Comment on above: HDL Guidelines: <40 Undesirable 40-59 Borderline >59 Desirable Cholesterol in LDL [Mass/Vol] 54 mg/dL 0 - 100 mg/dL [facility] Comment on above: LDL Guidelines: <100 Desirable 100-129 Near to/above Desirable 130-159 Borderline >159 Undesirable Direct (measured) LDL and calculated LDL are not interchangeable tests. Cholesterol in VLDL [Mass/Vol] 11 mg/dL 1 - 30 mg/dL [facility] Cholesterol.total/Chol esterol in HDL [Mass ratio] 2.4 {ratio} [facility] Triglyceride [Mass/Vol] 53 mg/dL NINF - 150 mg/dL [facility] Comment on above: Triglyceride Guidelines: <150 Desirable 150-199 Borderline 200-499 High >499 Very high Based on AHA Guidelines for fasting triglyceride, December 2011. [facility] Lipid Profileon 04-26-2024 Cholesterol [Mass/Vol] 113 mg/dL Normal 0-199 [facility] Comment on above: Result Comment: Cholesterol Guidelines: <200 Desirable 200-240 Borderline >240 Undesirable Performed By: #### M G, TSHX, CP, CDP #### [facility] [address] [place] [address] Last Ironer: William Iqbal MD #### VD25, LIPR, FT4 #### [facility] [employer] [address] [place] [address] Last Ironer: Wilian Calvillo MD Cholesterol in HDL [Mass/Vol] 48 mg/dL Normal >40 [facility] Comment on above: Result Comment: HDL Guidelines: <40 Undesirable 40-59 Borderline >59 Desirable Performed By: #### M G, TSHX, CP, CDP #### [facility] [address] [place] [address] Last Ironer: William Iqbal MD #### VD25, LIPR, FT4 #### [facility] [address] [place], [place] [id number] Last Ironer: Wilian Calvillo MD Cholesterol in LDL [Mass/Vol] 54 mg/dL Normal 0-100 [facility] Comment on above: Result Comment: LDL Guidelines: <100 Desirable 100-129 Near to/above Desirable 130-159 Borderline >159 Undesirable Direct (measured) LDL and calculated LDL are not interchangeable tests. Performed By: #### M G, TSHX, CP, CDP #### [facility] [address] [place], [place] [phone] Last Ironer: William Iqbal MD #### VD25, LIPR, FT4 #### [facility] [employer] [address] [place] [address] [phone] Last Ironer: Wilian Calvillo MD Cholesterol in VLDL [Mass/Vol] 11 mg/dL Normal 1-30 [facility] Comment on above: Performed By: #### M G, TSHX, CP, CDP #### [facility] [address] [place], [place] [phone] Last Ironer: William Iqbal MD #### VD25, LIPR, FT4 #### [facility] [employer] [facility] [place], [place] [id number] Last Ironer: Wilian Calvillo MD Cholesterol.total/Chol esterol in HDL [Mass ratio] 2.4 {ratio} Normal [facility] Comment on above: Performed By: #### M G, TSHX, CP, CDP #### [facility] [address] [place], [place] [phone] Last Ironer: William Iqbal MD #### VD25, LIPR, FT4 #### [facility] [employer] [address] [place], [place] [id number] Last Ironer: Wliian Calvillo MD Triglyceride [Mass/Vol] 53 mg/dL Normal <150 [facility] Comment on above: Result Comment: Triglyceride Guidelines: <150 Desirable 150-199 Borderline 200-499 High >499 Very high Based on AHA Guidelines for fasting triglyceride, December 2011. Performed By: #### Steffany Schmitt TSHX, CP, CDP #### [facility] [address] [place] [address] Last Ironer: William Iqbal MD #### VD25, LIPR, FT4 #### [facility] [employer] [address] [place] [address] [id number] Last Ironer: Wilian Calvillo MD Magnesiumon 04-26-2024 Magnesium [Mass/Vol] 2.1 mg/dL 1.6 - 2 .6 mg/dL [facility] Magnesium [Mass/Vol] 2.1 mg/dL Normal 1.6-2.6 [facility] Comment on above: Performed By: #### Steffany Schmitt TSHXPRITESH, CDP #### [facility] [address] [place] [address] Last Ironer: William Iqbal MD #### YEE, LIPR, FT4 #### [facility] [employer] [address] [place] [address] [phone] Last Ironer: Wilian Calvillo MD No Panel Informationon 04-26 [facility] T4, Freeon 04-26-2024 Free T4 [Mass/Vol] 1.2 ng/dL 0.9 - 1.7 ng/dL [facility] TSH w/reflex to FT4on 2024 Thyroid Stim. Horm. 6.05 uIU/mL High 0.30-5.00 [facility] Comment on above: Performed By: #### Steffany Schmitt TSHX, CP, CDP #### [facility] [address] [place] [address] Last Ironer: William Iqbal MD #### VD25, LIPR, FT4 #### [facility] [employer] [address] [place] [address] [phone] Last Ironer: Wilian Calvillo MD TSH with Reflexon 04-26-2024 Interpretation and review of laboratory results Abnormal [facility] TSH Qn 6.05 m[IU]/L High [facility] Thyroxine, Freeon 04-26-2024 Thyroxine, Free 1.2 ng/dL Normal 0.9-1.7 [facility] Comment on above: Performed By: #### M G, TSHX, CP, CDP #### [facility] [address] [place], [place] [phone] Last Ironer: William Iqbal MD #### VD25, LIPR, FT4 #### [employer] [address] [place], [place] [id number] Last Ironer: Wilian Calvillo MD Vitamin D 25 Hydroxyon 04-26 25-hydroxyvitamin D3 [Mass/Vol] 31.9 ng/mL 30.0 - 100.0 ng/mL [facility] Comment on above: Reference Range: Vitamin D status Range Deficiency <20 ng/mL Mild Deficiency 20-30 ng/mL Sufficiency 30-100 ng/mL Toxicity >100 ng/mL [facility] Vitamin D 25 OHon 04-26-2024 Vitamin D 25 OH 31.9 ng/mL Normal 30.0-100.0 [facility] Comment on above: Result Comment: Reference Range: Vitamin D status Range Deficiency <20 ng/mL Mild Deficiency 20-30 ng/mL Sufficiency 30-100 ng/mL Toxicity >100 ng/mL Performed By: #### M G, TSHX, CP, CDP #### [facility] [address] [place] [address] Last Ironer: William Iqbal MD #### VD25, LIPR, FT4 #### [employer] [address] [place] [address], [place] [id number] Last Ironer: Wilian Calvillo MD No Panel Informationon 03-08 Type of biopsy: tangential Informed consent: discussed and consent obtained Informed consent comment: The risks and benefits of the biopsy were discussed. Risks include but are not limited to bleeding, infection, scarring, pain, and nerve damage. An opportunity to ask questions prior to the procedure was permitted and all questions were answered. Patient was prepped and draped in usual sterile fashion: area cleansed with alcohol. Anesthesia: the lesion was anesthetized in a standard fashion Anesthetic: 1% lidocaine w/ epinephrine 1-100,000 buffered w/ 8.4% NaHCO3 Instrument used: DermaBlade Hemostasis achieved with: electrodesiccation Outcome: patient tolerated procedure well Outcome comment: The specimen was placed in a prelabeled formalin container to be sent for pathology Post-procedure details: sterile dressing applied and wound care instructions given Post-procedure details comment: Emphasized need to contact clinic for any signs of infection, uncontrollable bleeding, or complications. Dressing type: bandage Additional details: Photo taken Amount of lidocaine used: 1.0 cc [facility] [employer] [facility] [employer] [facility] [employer] Main OR Intraoperative Recor don 02-24-2024 Main OR Intraoperative Record Main OR Intraoperative Record IntraOp Document Type FTPM Summary Primary Physician: Daniel Hair DO Finalized Date/Time: 02/24/24 13:32:12 Pt. Name: BRET YAP Brian Burton/Sex: 1940 Male Med Rec #: [id number] Physician: Daniel Hair DO Financial #: [id number] Pt. Type: P Room/Bed: / Admit/Disch: 02/24/24 12:18:10 - Institution: Case Times FTPM Entry 1 Patient Times In Room 02/24/24 13:22:00 Out Room 02/24/24 13:30:00 Procedure Times Start 02/24/24 13:25:00 Stop 02/24/24 13:29:00 Anesthesia Times Last Modified By: Carol Whalen RN 02/24/24 13:30:57 Case Attendance FTPM Entry 1 Entry 2 Entry 3 Case Attendee Daniel Hair DO, RN, Carol Carey RN, [facility] Role Performed Surgeon - Primary News Anchor - Primary Scrub - Primary Time In 02/24/24 13:22:00 02/24/24 13:22:00 02/24/24 13:22:00 Time Out 02/24/24 13:30:00 02/24/24 13:30:00 02/24/24 13:30:00 Procedure MEDIAL BRANCH MEDIAL BRANCH MEDIAL BRANCH BLOCK(Right) BLOCK(Right) BLOCK(Right) Comments Last Modified By: Carol Whalen RN, RN, Carol Rosario RN 02/24/24 13:30:58 M 02/24/24 13:30:58 02/24/24 13:30:58 Entry 4 Case Attendee Mitra ANTHONY(R)Blanche Role Performed Storage Management Architect Time In 02/24/24 13:22:00 Time Out 02/24/24 13:30:00 Procedure MEDIAL BRANCH BLOCK(Right) Comments Last Modified By: Carol Whalen RN 02/24/24 13:30:58 Perioperative Protocols FTPM Pre-Care Text: Implements protective measures prior to operative or invasive procedure, confirms identity before the operative or invasive procedure, verifies operative procedure, surgical site, and laterality Entry 1 Procedure(s) MEDIAL BRANCH Patient Identity Birthday, ID Band BLOCK(Right) Verified (select at Check, Patient least 2): Participation Consents / H and P H&P, Surgery/Procedure Operative Site Present Verified Consent Marking Verified Surgical Site Yes Laterality Verified Yes Verified Procedure Verified Yes Correct Patient Yes Position Verified Availability Equipment, Medication, Prep Dry Yes Verified (If X-ray Applicable) PreOp Antibiotic No Time Out Carol Whalen RN, Pritchard RN, Reginaldo Henning DO, Bradford A., Christman RT(R)Blanche Time Out Complete 02/24/24 13:22:00 Outcomes Met? Yes Last Modified By: Carol Whalen RN 02/24/24 13:22:56 Post-Care Text: The patient is free from signs and symptoms of injury caused by extraneous objects Allergy Information FTPM Pre-Care Text: Verifies allergies Entry 1 Allergies Reviewed? Yes Allergies Reviewed Self/Patient With Outcomes Met? Yes Last Modified By: Carol Whalen RN 02/24/24 13:24:01 Post-Care Text: The patient received appropriate medication(s) safely administered during the perioperative period Surgical Procedures FTPM Entry 1 Procedure Description Procedure MEDIAL BRANCH BLOCK Modifiers Right Surgeon Description CERVICAL MBB FOR C5/6 + C6/7 FACETS W/FLUORO Primary Procedure Yes Primary Surgeon Daniel Hair DO Start 02/24/24 13:25:00 Stop 02/24/24 13:29:00 Anesthesia Type None Surgical Service Pain Management Wound Class 1 - Clean Last Modified By: Carol Whalen RN 02/24/24 13:30:59 General Case Data FTPM Pre-Care Text: Classifies surgical wound, implements aseptic technique, initiates traffic control Entry 1 Case Information OR Pain Proc Room Case Level Level 2 Wound Class 1 - Clean Specialty Pain Management Preop Diagnosis M47.812 Postop Same As Preop Yes Postop Diagnosis M47.812 Outcomes Met? Yes Last Modified By: Carol Whalen RN 02/24/24 13:24:22 Post-Care Text: The patient is free from signs and symptoms of infection Skin Assessment (Pre Procedure) FTPM Pre-Care Text: Implements protective measures to prevent skin/ tissue injury due to thermal or mechanical sources Evaluates for signs and symptoms of physical injury to skin and tissue Entry 1 Skin Integrity Intact, Quebrada, Warm, & Skin Abnormality No Dry Outcomes Met? Yes Last Modified By: Carol Whalen RN 02/24/24 13:18:33 Post-Care Text: The patient is free from signs and symptoms of injury caused by extraneous objects Patient Positioning FTPM Pre-Care Text: Identifies physical alterations that require additional precautions for procedure-specific positioning, verifies presence of prosthetics or corrective devices, positions the patient, evaluates the patient for signs and symptoms of injury as a result of positioning Entry 1 Procedure MEDIAL BRANCH Body Position Prone BLOCK(Right) Feet Uncrossed? Yes Left Arm Position Resting at Side Right Arm Position Resting at Side Left Leg Position Extended Right Leg Position Extended Positioning Device Pillow Under Head Large, Safety Strap, Pillow Large Under Knees Press Points Checked Yes By Angus (more content not included)... Normal [facility] Main OR Preoperative Recordo n 02-24-2024 Main OR Preoperative Record Main OR Preoperative Record Holding Area Document Type FTPM Summary Primary Physician: Daniel Hair DO Finalized Date/Time: 02/24/24 14:18:29 Pt. Name: BRET YAP D.O.B./Sex: 1940 Male Med Rec #: [id number] Physician: Daniel Hair DO Financial #: [id number] Pt. Type: P Room/Bed: / Admit/Disch: 02/24/24 12:18:10 - Institution: Case Times Holding FTPM Pre-Care Text: Verifies consent for planned procedure, identifies individual values and wishes concerning care, includes family members in perioperative teaching Secures patient's records' belongings, and valuables, maintains patient's dignity and privacy, and maintains patient confidentiality Entry 1 In Holding 02/24/24 12:28:00 Outcomes Met? Yes Last Modified By: Marilou Esparza RN 02/24/24 12:28:30 Post-Care Text: The patient participates in decisions affecting his or her perioperative plan of care The patient's right to privacy is maintained Surgery Checklist FTPM Entry 1 Patient Birthday, ID Band Procedure History and Physical, Identification: Check, Patient Verification: Surgical Consent, With Participation Patient NPO after Midnight: No Date/Time: 02/24/24 12:28:00 Results Reviewed 0700 shredded wheat Personal Items: Cataract Lens Implant, Comments: Dentures Personal Items Pt. has upper and lower Complaints of Pain: Yes Comment: dentures, and a history of bilateral cataract lens implants. Pain Comment: 11/07 neck pain Operative Site Yes Marking: Marked By: Dr. Hair Location: Right C5-C7 Availability Equipment, X-Ray Verified: Does Patient Smoke No Patient states Yes Comment - Adult -Kadi postop adult Supervision supervision available Case Cancelled in No Holding Area see comments below for reason Last Modified By: Marilou Esparza RN 02/24/24 14:18:27 Finalized By: Marilou Esparza RN Document Signatures Signed By: Marilou Esparza RN 02/24/24 12:32 Marilou Esparza RN 02/24/24 12:31 Marilou Esparza RN 02/24/24 14:18 Normal [facility] H AND Sean 01-23-2024 H AND P Faizan Bragg MD [address] [place] [address] RE: BRET YAP : [address] Bragg: CHIEF COMPLAINT: Shortness of breath with chest discomfort for the last 1-2 months. Abnormal Lexiscan Cardiolite stress test with decreased perfusion anterolaterally with an overall intermediate risk for coronary artery disease with normal LV function, EF is 55%. HISTORY OF PRESENT ILLNESS: I had the pleasure of seeing Bret Yap in our office on December 24, 2023. He is a very pleasant 83-year-old gentleman who has never had a myocardial infarction or cardiac catheterization. He does have a history of atrial flutter discovered on July 27, 2020, on a preoperative EKG for lumbar fusion surgery by Dr. Michelle in [place]. We placed him on Xarelto 20 mg daily, on which he has remained. On September 04, 2021, EKG showed atrial flutter with a controlled ventricular response. He was totally asymptomatic. An echocardiogram on August 08, 2020, showed EF of 55% with moderate to severely dilated left atrium and right atrium. I did not attempt to cardiovert and he has remained in chronic atrial fibrillation. He had been on Aldactone and I switched to Inspra, but he felt his gynecomastia was increasing. Therefore, we stopped Inspra. I last saw him on September 02, 2023. At that time, he was doing well. 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 For the last approximately a month, he has had marked increase in shortness of breath noted most when he is walking. If he walks up steps, he has to stop because of shortness of breath. Outside if he attempts to walk up a slight incline, he will become much more short of breath than he had previously. He has some chest pain, but it remains atypical. He denies any PND, orthopnea, or pedal edema. No syncope or near syncope. He cannot feel his atrial fibrillation. Again, he has never had a myocardial infarction or cardiac catheterization. Because of his increased shortness of breath, we did an echocardiogram on December 12, 2023, that showed an EF of 55% with moderate MR and TR and a PA pressure of 45 mmHg. We also did a Lexiscan stress test that showed anterolateral wall perfusion defect with an overall intermediate risk for coronary artery disease. CARDIAC RISK FACTORS: Hypertension: Negative. Peripheral vascular disease: Negative. Diabetes: Negative. Smoking: Negative. Other family members: Negative. MEDICATIONS: He is on Zyloprim 300 mg daily, aspirin 81 mg daily, vitamin D 2000 units daily, Lasix 20 mg daily, omeprazole 20 mg daily, and Xarelto 20 mg daily. PAST MEDICAL AND SURGICAL HISTORY: Bilateral shoulder arthroscopic surgery in 2010. Right leg surgery in 1965. Finger surgery in 2018. Lumbar disk surgery by Dr. Michelle on October 14, 2020, with a lumbar fusion. Paroxysmal atrial flutter, now in chronic atrial fibrillation, on Xarelto. Right wrist surgery by Dr. Michelle 1 year ago. Cardiac as above. FAMILY HISTORY: No significant heart disease in the family. SOCIAL HISTORY: He is 83 years old, retired [employer], [address] acres. Son, 52, is buying the farm. Grandson, 29, is and helping. Son also sells seeds. Grandson is also into the [employer] business. Mr. Yap also has a son who works at [employer] who is not interested in farming. Another grandson works at [employer]. He does not smoke or drink alcohol. Stays very active until recently when he has had shortness of breath with exertion. REVIEW OF SYSTEMS: Cardiac as above. Other systems reviewed including constitutional, eyes, ears, nose and throat, cardiovascular, respiratory, GI, , musculoskeletal, integumentary, neurologic, psychiatric, endocrine, hematologic and allergic/immunologic, which were all negative except for what is described above. No weight loss or weight gain. No change in bowel habits. No blood in stool. No fevers, sweats, or chills. PHYSICAL EXAMINATION: VITAL SIGNS: Blood pressure is 120/60 with a heart rate of 80 and irregular, respirations are 18, O2 saturation 96%, and weight 201 pounds. GENERAL: He is a very pleasant 83-year-old gentleman. Denies pain. He is oriented to person, place and time. Answers questions appropriately. SKIN: No unusual skin changes. HEENT: The pupils are equally round and reactive to light and accommodation. Extraocular movements are intact. Mucous membranes are dry. NECK: No JVD. Good carotid pulses. No carotid bruits. No lymphadenopathy or thyromegaly. CARDIOVASCULAR: S1 and S2 are normal. No S3 or S4. Soft systolic blowing-type murmur. No diastolic murmur. PMI is normal. No lift, thrust, or pericardial friction rub. LUNGS: Quite clear to auscultation and percussion. ABDOMEN: Soft and nontender. Good bowel sounds. The aorta is not enlarged. No hepatomegaly, splenomegaly. EXTREMITIES: Good femoral pulses. Good pedal pulses. No pedal edema. Skin is warm and dry. No calf tenderness. Nail (more content not included)... Normal [facility] LEFT HEART CATHon 01-23-2024 LEFT HEART CATH This is a summary report. The complete report is available in the patient's medical record. If you cannot access the medical record, please contact the sending organization for a detailed fax or copy. Impression: LV: EF 50% LAD: smooth 50% at LAD and diagonal bifurcation Cx: small with mild plaque disease. RCA: Very large and dominant with 65% proximal lesion. Recommendations: Continue medical therapy Cardiac rehab Coronary Findings Diagnostic Dominance: Right Left Main: Normal Left Anterior Descending: The LAD and Diagonal are large. At the bifurcation site there is a smooth 50% lesion on both the LAD and diagonal. Mid LAD lesion is 50% stenosed. First Diagonal Branch: 1st Diag lesion is 50% stenosed. Left Circumflex: The Cx is small with small OM which have mild plaque disease. Right Coronary Artery: The RCA is extremely large. In the proximal third there is an eccentric 65% lesion. The remainder of the vessel has mild plaque disease. Prox RCA lesion is 65% stenosed. Intervention No interventions have been documented. Left Ventricle Ejection Fraction: 50%%. Normal [facility] Main OR Intraoperative Recor don 01-20-2024 Main OR Intraoperative Record Main OR Intraoperative Record IntraOp Document Type FTPM Summary Primary Physician: Daniel Hair DO Finalized Date/Time: 01/20/24 10:19:15 Pt. Name: BRET YAP/Sex: 1940 Male Med Rec #: [id number] Physician: Daniel Hair DO Financial #: [id number] Pt. Type: P Room/Bed: / Admit/Disch: 01/20/24 09:02:09 - Institution: Case Times FTPM Entry 1 Patient Times In Room 01/20/24 10:10:00 Out Room 01/20/24 10:19:00 Procedure Times Start 01/20/24 10:13:00 Stop 01/20/24 10:18:00 Anesthesia Times Last Modified By: Cherry PERKINS, Pamela Rosenthal 01/20/24 10:19:13 Case Attendance FTPM Entry 1 Entry 2 Entry 3 Case Attendee Daniel Hair DO, RN, Pamela Amato RN, Ninfa Freitas Role Performed Surgeon - Primary News Anchor - Primary Scrub - Primary Time In 01/20/24 10:10:00 01/20/24 10:10:00 01/20/24 10:10:00 Time Out 01/20/24 10:18:00 01/20/24 10:18:00 01/20/24 10:18:00 Procedure MEDIAL BRANCH MEDIAL BRANCH MEDIAL BRANCH BLOCK(Right) BLOCK(Right) BLOCK(Right) Comments Last Modified By: Pamela Carey RN, RN, Madison A Pritchard RN, Madison A 01/20/24 10:18:36 01/20/24 10:18:36 01/20/24 10:18:36 Entry 4 Case Attendee Gina Schreiber Role Performed Storage Management Architect Time In 01/20/24 10:10:00 Time Out 01/20/24 10:18:00 Procedure MEDIAL BRANCH BLOCK(Right) Comments Last Modified By: Pamela Carey RN 01/20/24 10:18:36 Perioperative Protocols FTPM Pre-Care Text: Implements protective measures prior to operative or invasive procedure, confirms identity before the operative or invasive procedure, verifies operative procedure, surgical site, and laterality Entry 1 Procedure(s) MEDIAL BRANCH Patient Identity Birthday, ID Band BLOCK(Right) Verified (select at Check, Patient least 2): Participation Consents / H and P H&P, Surgery/Procedure Operative Site Present Verified Consent Marking Verified Surgical Site Yes Laterality Verified Yes Verified Procedure Verified Yes Correct Patient Yes Position Verified Availability Equipment, Medication, Prep Dry Yes Verified (If X-ray Applicable) PreOp Antibiotic No Time Out Pamela Carey RN, Roderick RN, Reginaldo Holguin DO, Bradford A., Daniel, Alissa M Time Out Complete 01/20/24 10:11:00 Outcomes Met? Yes Last Modified By: Pamela Carey RN 01/20/24 10:11:14 Post-Care Text: The patient is free from signs and symptoms of injury caused by extraneous objects Allergy Information FTPM Pre-Care Text: Verifies allergies Entry 1 Allergies Reviewed? Yes Allergies Reviewed Self/Patient With Outcomes Met? Yes Last Modified By: Pamela Carey RN 01/20/24 10:10:42 Post-Care Text: The patient received appropriate medication(s) safely administered during the perioperative period Surgical Procedures FTPM Entry 1 Procedure Description Procedure MEDIAL BRANCH BLOCK Modifiers Right Surgeon Description R CERVICAL MBB FOR C5/6 +C6/7 Primary Procedure Yes Primary Surgeon Daniel Hair DO Start 01/20/24 10:13:00 Stop 01/20/24 10:19:00 Anesthesia Type None Surgical Service Pain Management Wound Class 1 - Clean Last Modified By: Pamela Carey RN 01/20/24 10:18:37 General Case Data FTPM Pre-Care Text: Classifies surgical wound, implements aseptic technique, initiates traffic control Entry 1 Case Information OR Pain Proc Room Case Level Level 2 Wound Class 1 - Clean Specialty Pain Management Preop Diagnosis M47.812 Postop Same As Preop Yes Postop Diagnosis M47.812 Outcomes Met? Yes Last Modified By: Pamela Carey RN 01/20/24 10:11:40 Post-Care Text: The patient is free from signs and symptoms of infection Skin Assessment (Pre Procedure) FTPM Pre-Care Text: Implements protective measures to prevent skin/ tissue injury due to thermal or mechanical sources Evaluates for signs and symptoms of physical injury to skin and tissue Entry 1 Skin Integrity Intact, Quebrada, Warm, & Skin Abnormality No Dry Outcomes Met? Yes Last Modified By: Pamela Carey RN 01/20/24 10:10:49 Post-Care Text: The patient is free from signs and symptoms of injury caused by extraneous objects Patient Positioning FTPM Pre-Care Text: Identifies physical alterations that require additional precautions for procedure-specific positioning, verifies presence of prosthetics or corrective devices, positions the patient, evaluates the patient for signs and symptoms of injury as a result of positioning Entry 1 Procedure MEDIAL BRANCH Body Position Prone BLOCK(Right) Feet Uncrossed? Yes Left Arm Position Resting at Side Right Arm Position Resting at Side Left Leg Position Extended Right Leg Position Extended Positioning Device Pillow Under Head Large, Safety Strap, Pillow Large Under Knees Press Points Checked Yes By Pamela Carey RN Outcomes Met? Yes Last Mod (more content not included)... Normal [facility] Main OR Preoperative Recordo n 01-20-2024 Main OR Preoperative Record Main OR Preoperative Record Holding Area Document Type FTPM Summary Primary Physician: Daniel Hair DO Finalized Date/Time: 01/20/24 09:39:44 Pt. Name: BRET YAP /Sex: 1940 Male Med Rec #: [id number] Physician: Daniel Hair DO Financial #: [id number] Pt. Type: P Room/Bed: / Admit/Disch: 01/20/24 09:02:09 - Institution: Case Times Holding FTPM Pre-Care Text: Verifies consent for planned procedure, identifies individual values and wishes concerning care, includes family members in perioperative teaching Secures patient's records' belongings, and valuables, maintains patient's dignity and privacy, and maintains patient confidentiality Entry 1 In Holding 01/20/24 09:32:00 Outcomes Met? Yes Last Modified By: Jossie Ma RN 01/20/24 09:32:30 Post-Care Text: The patient participates in decisions affecting his or her perioperative plan of care The patient's right to privacy is maintained Surgery Checklist FTPM Entry 1 Patient Birthday, ID Band Procedure History and Physical, Identification: Check, Patient Verification: Surgical Consent, With Participation Patient NPO after Midnight: No Date/Time: 01/20/24 09:38:00 Results Reviewed 0800 bowl of cereal Personal Items: Cataract Lens Implant Comments: Personal Items Pt. has history of Complaints of Pain: Yes Comment: bialteral cataract lens implants. Pain Comment: 11/07 neck pain Operative Site Yes Marking: Marked By: Dr. Hair Location: right C5-C6 Availability Equipment, X-Ray Verified: Does Patient Smoke No Patient states Yes Comment - Adult -Kadi postop adult Supervision supervision available Case Cancelled in No Holding Area see comments below for reason Last Modified By: Jossie Ma RN 01/20/24 09:39:39 Finalized By: Jossie Ma RN Document Signatures Signed By: Jossie Ma RN 01/20/24 09:39 Normal [facility] No Panel InformationOrdered By: Darrell Jason on 12-23-2023 Nuc Stress EF 64 % BON [employer] Work Phone: Stress Target HR 138 bpm MARYAM SOLOMON Whitt[employer] Work Phone: TID 1.04 MARYAM IVAN Whittl Work Phone: MARYAM IVAN [employer] Work Phone: No Panel Informationon 12-22 Stress Combined Conclusion: The study cannot rule out a small degree of myocardial ischemia. Findings suggest a low risk of cardiac events. Stress Function: Left ventricular function post-stress is normal. Post-stress ejection fraction is 64%. The stress end diastolic cavity size is normal. Perfusion Comments: Prone images were obtained. Prone imaging was helpful in correcting soft tissue attenuation. LV perfusion is equivocal. Perfusion Defect: There is a mild severity left ventricular stress perfusion defect that is small to medium in size present in the inferior segment(s). This defect was visualized during the rest phase of imaging. The defect appears to be probable artifact caused by subdiaphragmatic activity. There is a mild severity left ventricular stress perfusion defect that is small in size present in the apical lateral segment(s). This defect was visualized during the stress phase of imaging. The defect appears to be probable artifact. The possibility of ischemia cannot be excluded. Perfusion Conclusion: There is no evidence of transient ischemic dilation (TID). TID ratio is 1.04. Stress Test: A pharmacological stress test was performed using regadenoson (Lexiscan). The patient reported no symptoms during the stress test. The patient reached the end of the protocol. Equivocal myocardial perfusion study, inferior wall artifact but with inferoapical defect consistent with artifact but cannot rule out a small degree of myocardial ischemia. Overall, these results are most consistent with a low to intermediate risk for significant ischemia. Depending on the patient symptoms and level of clinical suspicion, aggressive medical management vs. additional testing by coronary angiography may be indicated. The sensitivity for detecting ischemia on this test may have been reduced due the patient being on a beta [place] The results of this test were discussed with Dr. Álvarez on 12/23/2023 at 17:15 Stress Findings A pharmacological stress test was performed using regadenoson (Lexiscan). The patient reported no symptoms during the stress test. The patient reached the end of the protocol. Nuclear Study Quality Nuclear Cardiac SPECT rest then gated stress with tomographic imaging/tomography utilized for the myocardial perfusion procedure. Lexiscan was used as the stressing method and agent. (Lexiscan given via a 10 - 20 sec injection). One day myocardial perfusion study (12/23/2023). This Single Photon Emission Computer Tomography (SPECT) study utilized tomographic imaging/tomography for the tomographic myocardial perfusion imaging performed during this study. Perfusion Comments Prone images were obtained. Prone imaging was helpful in correcting soft tissue attenuation. LV perfusion is equivocal. Perfusion Defect There is a mild severity left ventricular stress perfusion defect that is small to medium in size present in the inferior segment(s). This defect was visualized during the rest phase of imaging. The defect appears to be probable artifact caused by subdiaphragmatic activity. There is a mild severity left ventricular stress perfusion defect that is small in size present in the apical lateral segment(s). This defect was visualized during the stress phase of imaging. The defect appears to be probable artifact. The possibility of ischemia cannot be excluded. Perfusion Defect Conclusion There is no evidence of transient ischemic dilation (TID). TID ratio is 1.04. Stress Function Comments Left ventricular function post-stress is normal. Post-stress ejection fraction is 64%. The stress end diastolic cavity size is normal. Stress Combined Conclusion The study cannot rule out a small degree of myocardial ischemia. Findings suggest a low risk of cardiac events. [facility] CV [facility] STRESS Radiology Study observation (narrative) [facility] [employer] CBC with Auto Differentialon 12-22-2023 Basophils (Bld) [#/Vol] 0.06 10*3/uL [email or web address] Basophils/100 WBC (Bld) 1 % 0 - 2 % [email or web address] Eosinophils (Bld) [#/Vol] 0.14 10*3/uL [facility]ALSavedPlus Inc [facility] [employer]otte Eosinophils/100 WBC (Bld) 3 % 0 - 5 % [facility]ITALWinView [facility] Erythrocyte distribution width (RBC) [Ratio] 13.0 % 12.1 - 15.2 % [facility]ITALWinView [facility] Hematocrit (Bld) [Volume fraction] 36.5 % Low 41.0 - 53.0 % [facility]ALSavedPlus Inc [facility] Hemoglobin (Bld) [Mass/Vol] 11.4 g/dL Low 13.5 - 17.5 g/dL [email or web address] Immature granulocytes (Bld) [#/Vol] 0.01 10*3/uL [facility] Immature granulocytes/100 WBC (Bld) 0 % 0 - 5 % [facility] Interpretation and review of laboratory results Abnormal [facility] Lymphocytes/100 WBC (Bld) 20 % 13 - 44 % [facility] Lymphocytes/100 WBC (Bld) 1.13 % [facility] MCH (RBC) [Entitic mass] 29.1 pg 26.0 - 34.0 pg [facility] MCHC (RBC) [Mass/Vol] 31.2 g/dL 31.0 - 37.0 g/dL [facility] MCV (RBC) [Entitic vol] 93.1 fL 80.0 - 100.0 fL [facility] Monocytes/100 WBC (Bld) 13 % High 5 - 9 % [facility] Monocytes/100 WBC (Bld) 0.72 % [facility] Neutrophils/100 WBC (Bld) 63 % 39 - 75 % [facility] Platelet mean volume (Bld) [Entitic vol] 9.6 fL 6.0 - 12.0 fL [facility] Platelets (Bld) [#/Vol] 206 10*3/uL [facility] RBC (Bld) [#/Vol] 3.92 10*6/uL Low 4.50 - 5.9 0 m/uL [facility] Segmented neutrophils/100 WBC (Bld) 3.57 % [facility] WBC other (Bld) [#/Vol] 5.6 [facility] CBC with Diffon 12-22-2023 Abs. Basophil 0.06 k/uL Normal 0.00-0.20 [facility] Comment on above: Performed By: #### C P, MG, TSHX, CDP ####[facility] [address] [place] [address] Lab Director: William Iqbal MD#### VD25, FT4, LIPR ####[facility] [address] [place] [address] Lab Director: Wilian Calvillo MD Abs.Imm.Granulocyte 0.01 k/uL Normal 0.00-0.30 [facility] Comment on above: Performed By: #### C P, MG, TSHX, CDP ####[facility] X[address] [place] [address] Lab Director: William Iqbal MD#### VD25, FT4, LIPR ####[place] [address] Lab Director: Wilian Calvillo MD Abs.Neutrophil (Seg) 3.57 k/uL Normal 2.1-6.5 [facility] Comment on above: Performed By: #### C P, MG, TSHX, CDP ####[facility] [address] [place], [place] [address])[phone] Director: William Iqbal MD#### VD25, FT4, LIPR ####[place] [address] Lab Director: Wilian Calvillo MD Basophils/100 WBC (Bld) 1 % Normal 0-2 [facility] Comment on above: Performed By: #### C P, MG, TSHX, CDP ####[facility] [address] [place], [place] [address])[phone] Director: William Iqbal MD#### VD25, FT4, LIPR ####[place] [address] Lab Director: Wilian Calvillo MD Eosinophils (Bld) [#/Vol] 0.14 10*3/uL Normal 0.00-0.40 [facility] Comment on above: Performed By: #### C P, MG, TSHX, CDP ####[facility] [address] [place] [address] Lab Director: William Iqbal MD#### VD25, FT4, LIPR ####[address] [place] [address] Lab Director: Wilian Calvillo MD Eosinophils/100 WBC (Bld) 3 % Normal 0-5 [facility] Comment on above: Performed By: #### C P, MG, TSHX, CDP ####[facility] [address] [place] [address] Lab Director: William Iqbal MD#### VD25, FT4, LIPR ####[facility] [address] [place] [address] Lab Director: Wilian Calvillo MD Erythrocyte distribution width (RBC) [Ratio] 13.0 % Normal 12.1-15.2 [facility] Comment on above: Performed By: #### C P, MG, TSHX, CDP ####[facility] Szg[address] [place] [address] Lab Director: William Iqbal MD#### VD25, FT4, LIPR ####[address] [address] Lab Director: Wilian Calvillo MD Hematocrit (Bld) [Volume fraction] 36.5 % Low 41.0-53.0 [facility] Comment on above: Performed By: #### C P, MG, TSHX, CDP ####[facility] [address] [place] [address] Lab Director: William Iqbal MD#### VD25, FT4, LIPR ####[address] [place] [address] Lab Director: Wilian Calvillo MD Hemoglobin (Bld) [Mass/Vol] 11.4 g/dL Low 13.5-17.5 [facility] Comment on above: Performed By: #### C P, MG, TSHX, CDP ####[facility] [address] [place], [place] [id number] Lab Director: William Iqbal MD#### VD25, FT4, LIPR ####[facility] [address] [place], [place] 6014208 Lab Director: Wilian Calvillo MD Immature granulocytes/100 WBC (Bld) 0 % Normal 0-5 [facility] Comment on above: Performed By: #### C P, MG, TSHX, CDP ####[facility] Qos[address] [place], [place] [address] Lab Director: William Iqbal MD#### VD25, FT4, LIPR ####[address] [place] [address] Lab Director: Wilian Calvillo MD Lymphocytes (Bld) [#/Vol] 1.13 10*3/uL Normal 1.00-4.80 [facility] Comment on above: Performed By: #### C P, MG, TSHX, CDP ####[facility] [address] [place], [place] [id number] Lab Director: William Iqbal MD#### VD25, FT4, LIPR ####[address] [address] Lab Director: Wilian Calvillo MD Lymphocytes/100 WBC (Bld) 20 % Normal 13-44 [facility] Comment on above: Performed By: #### C P, MG, TSHX, CDP ####[facility] [address] [place], [place] [phone] Lab Director: William Iqbal MD#### VD25, FT4, LIPR ####[address] [address] Lab Director: Wilian Calvillo MD MCH (RBC) [Entitic mass] 29.1 pg Normal 26.0-34.0 [facility] Comment on above: Performed By: #### C P, MG, TSHX, CDP ####[facility] Inq[address] [place] [address] Lab Director: William Iqbal MD#### VD25, FT4, LIPR ####[address] [address] Lab Director: Wilian Calvillo MD MCHC (RBC) [Mass/Vol] 31.2 g/dL Normal 31.0-37.0 [facility] Comment on above: Performed By: #### C P, MG, TSHX, CDP ####[facility] [address] [place], [place] [address])[phone] Director: William Iqbal MD#### VD25, FT4, LIPR ####[place] [address] Lab Director: Wilian Calvillo MD MCV (RBC) [Entitic vol] 93.1 fL Normal 80.0-100.0 [facility] Comment on above: Performed By: #### C P, MG, TSHX, CDP ####[facility] [address] [place], [place] [address])[phone] Director: William Iqbal MD#### VD25, FT4, LIPR ####[place] [address] Lab Director: Wilian Calvillo MD Monocytes (Bld) [#/Vol] 0.72 10*3/uL Normal 0.00-1.00 [facility] Comment on above: Performed By: #### C P, MG, TSHX, CDP ####[facility] Z[address] [place] [address] Lab Director: William Iqbal MD#### VD25, FT4, LIPR ####[address] [place] [address] Lab Director: Wilian Calvillo MD Monocytes/100 WBC (Bld) 13 % High 5-9 [facility] Comment on above: Performed By: #### C P, MG, TSHX, CDP ####[facility] G[address] [place] [address] Lab Director: William Iqbal MD#### VD25, FT4, LIPR ####[facility] [place], [place] 6861708 Lab Director: Wilian Calvillo MD Neutrophil (Seg) 63 % Normal 39-75 [facility] Comment on above: Performed By: #### C P, MG, TSHX, CDP ####[facility] [address] [place], [place] 7460390 Lab Director: William Iqbal MD#### VD25, FT4, LIPR ####[facility] [place] [address] Lab Director: Wilian Calvillo MD Platelet mean volume (Bld) [Entitic vol] 9.6 fL Normal 6.0-12.0 [facility] Comment on above: Performed By: #### C P, MG, TSHX, CDP ####[facility] [address] [place], [place] [id number] Lab Director: William Iqbal MD#### VD25, FT4, LIPR ####[facility] [place] [address] Lab Director: Wilian Calvillo MD Platelets (Bld) [#/Vol] 206 10*3/uL Normal 140-450 [facility] Comment on above: Performed By: #### C P, MG, TSHX, CDP ####[facility] [address] [place] [address] Lab Director: William Iqbal MD#### VD25, FT4, LIPR ####[facility] [address] [place] [address] Lab Director: Wilian Calvillo MD RBC (Bld) [#/Vol] 3.92 10*6/uL Low 4.50-5.90 [facility] Comment on above: Performed By: #### C P, MG, TSHX, CDP ####[facility] [address] [place], [place] [address])[phone] Director: William Iqbal MD#### VD25, FT4, LIPR ####[facility] [address] [place], [place] [address])[phone] Director: Wilian Calvillo MD WBC (Bld) [#/Vol] 5.6 10*3/uL Normal 3.5-11.0 [facility] Comment on above: Performed By: #### C P, MG, TSHX, CDP ####[facility] [address] [place], [place] [address])[phone] Director: William Iqbal MD#### VD25, FT4, LIPR ####[facility] [address] [place], [place] [address])[phone] Director: Wilian Calvillo MD Comp Metabolic Profon 2023 Albumin [Mass/Vol] 3.8 g/dL Normal 3.5-5.2 [facility] Comment on above: Performed By: #### C P, MG, TSHX, CDP ####[facility] [address] [place], [place] [phone])[phone] Director: William Iqbal MD#### VD25, FT4, LIPR ####[facility] [address] [place], [place] [phone] Director: Wilian Calvillo MD Alkaline Phos 130 U/L High 40-129 [facility] Comment on above: Performed By: #### C P, MG, TSHX, CDP ####[facility] Xpj1660 [place] [address] Lab Director: William Iqbal MD#### VD25, FT4, LIPR ####[facility] [address] [place] [address] Lab Director: Wilian Calvillo MD ALT [Catalytic activity/Vol] 14 U/L Normal 5-41 [facility] Comment on above: Performed By: #### C P, MG, TSHX, CDP ####[facility] Afm2777 [place] [address] Lab Director: William Iqbal MD#### VD25, FT4, LIPR ####[address] [place], [place] [id number] Lab Director: Wilian Calvillo MD Anion gap [Moles/Vol] 7 mmol/L Low 9-17 [facility] Comment on above: Performed By: #### C P, MG, TSHX, CDP ####[facility] [address]xa5074 [place] [address] Lab Director: William Iqbal MD#### VD25, FT4, LIPR ####[address] [place] [address] Lab Director: Wilian Calvillo MD AST [Catalytic activity/Vol] 20 U/L Normal <40 [facility] Comment on above: Performed By: #### C P, MG, TSHX, CDP ####[facility] Kjb4148 [facility], [place] [id number] Lab Director: William Iqbal MD#### VD25, FT4, LIPR ####[facility] [place], [place] 3405208 Lab Director: Wilian Calvillo MD Bilirubin [Mass/Vol] 0.5 mg/dL Normal 0.3-1.2 [facility] Comment on above: Performed By: #### C P, MG, TSHX, CDP ####[facility] [address] [place] [address] Lab Director: William Iqbal MD#### VD25, FT4, LIPR ####[address] [place], [place] [phone] Lab Director: Wilian Calvillo MD BUN/CRE Ratio 18 Normal 9-20 [facility] Comment on above: Performed By: #### C P, MG, TSHX, CDP ####[facility] Mvh[address]12 [place], [place] 7574090 Lab Director: William Iqbal MD#### VD25, FT4, LIPR ####[address] [phone] Lab Director: Wilian Calvillo MD Calcium [Mass/Vol] 9.3 mg/dL Normal 8.6-10.4 [facility] Comment on above: Performed By: #### C P, MG, TSHX, CDP ####[facility] [address] [place], [place] 9405690 Lab Director: William Iqbal MD#### VD25, FT4, LIPR ####[address] [address] Lab Director: Wilian Calvillo MD Chloride [Moles/Vol] 106 mmol/L Normal 98-107 [facility] Comment on above: Performed By: #### C P, MG, TSHX, CDP ####[facility] [address]fk[address] [place], [place] 4207790 Lab Director: William Iqbal MD#### VD25, FT4, LIPR ####[address] [place], [place] 6432008 Lab Director: Wilian Calvillo MD CO2 [Moles/Vol] 27 mmol/L Normal 20-31 [facility] Comment on above: Performed By: #### C P, MG, TSHX, CDP ####[facility] [address] [place] [address] Lab Director: William Iqbal MD#### VD25, FT4, LIPR ####[facility] [place], [place] 3511908 Lab Director: Wilian Calvillo MD Creatinine [Mass/Vol] 1.2 mg/dL Normal 0.7-1.2 [facility] Comment on above: Performed By: #### C P, MG, TSHX, CDP ####[facility] Aor[address] [place], [place] 6744090 Lab Director: William Iqbal MD#### VD25, FT4, LIPR ####[address] [phone] Lab Director: Wilian Calvillo MD GFR/1.73 sq M.predicted among non-blacks MDRD (S/P/Bld) [Vol rate/Area] 60 mL/min/{1.73_m2} Low >60 [facility] Comment on above: Result Comment: These results are not intended for use in patients <18 years of age. eGFR results are calculated without a race factor using the 2020 CKD-EPI equation. Careful clinical correlation is recommended, particularly when comparing to results calculated using previous equations. The CKD-EPI equation is less accurate in patients with extremes of muscle mass, extra-renal metabolism of creatine, excessive creatine ingestion, or following therapy that affects renal tubular secretion. Performed By: #### C P, MG, TSHX, CDP ####[facility] [address] [place], [place] 6887990 Lab Director: William Iqbal MD#### VD25, FT4, LIPR ####[facility] [place], [place] 3629208 Lab Director: Wilian Calvillo MD Glucose [Mass/Vol] 92 mg/dL Normal 70-99 [facility] Comment on above: Performed By: #### C P, MG, TSHX, CDP ####[facility] [address] [place] [address] Lab Director: William Iqbal MD#### VD25, FT4, LIPR ####[facility] [address] [place], [place] 1877008 Lab Director: Wilian Calvillo MD Potassium [Moles/Vol] 4.3 mmol/L Normal 3.7-5.3 [facility] Comment on above: Performed By: #### C P, MG, TSHX, CDP ####[facility] [address] [place] [address] Lab Director: William Iqbal MD#### VD25, FT4, LIPR ####[address] [address] Lab Director: Wilian Calvillo MD Protein [Mass/Vol] 7.4 g/dL Normal 6.4-8.3 [facility] Comment on above: Performed By: #### C P, MG, TSHX, CDP ####[facility] [address] [place] [address] Lab Director: William Iqbal MD#### VD25, FT4, LIPR ####[address] [place] [address] Lab Director: Wilian Calvillo MD Sodium [Moles/Vol] 140 mmol/L Normal 135-144 [facility] Comment on above: Performed By: #### C P, MG, TSHX, CDP ####[facility] [address] [place] [address] Lab Director: William Iqbal MD#### VD25, FT4, LIPR ####[address] [place] [address] Lab Director: Wilian Calvillo MD Urea nitrogen [Mass/Vol] 22 mg/dL Normal 11-20 [facility] Comment on above: Performed By: #### C P, MG, TSHX, CDP ####[facility] [address] [place] [address] Lab Director: William Iqbal MD#### VD25, FT4, LIPR ####[facility] [address] [place] [address] lab Director: Wilian Calvillo MD Comprehensive Metabolic Pane [facility] 12-22-2023 Albumin [Mass/Vol] 3.8 g/dL 3.5 - 5.2 g/dL [facility] ALP [Catalytic activity/Vol] 130 U/L High 40 - 129 U/L [facility] ALT [Catalytic activity/Vol] 14 U/L 5 - 41 U/L [facility] Anion gap [Moles/Vol] 7 mmol/L Low 9 - 17 mmol/L [facility] AST [Catalytic activity/Vol] 20 U/L NINF - 40 U/L [facility] Bilirubin [Mass/Vol] 0.5 mg/dL 0.3 - 1 .2 mg/dL [facility] Calcium [Mass/Vol] 9.3 mg/dL 8.6 - 10. 4 mg/dL [facility] Chloride [Moles/Vol] 106 mmol/L 98 - 10 7 mmol/L [facility] CO2 [Moles/Vol] 27 mmol/L 20 - 31 mmol/L [facility] Creatinine [Mass/Vol] 1.2 mg/dL 0.7 - 1.2 mg/dL [facility] Est, Glom Filt Rate 60 Low - PINF [facility] Comment on above: These results are not intended for use in patients <18 years of age. eGFR results are calculated without a race factor using the 2020 CKD-EPI equation. Careful clinical correlation is recommended, particularly when comparing to results calculated using previous equations. The CKD-EPI equation is less accurate in patients with extremes of muscle mass, extra-renal metabolism of creatine, excessive creatine ingestion, or following therapy that affects renal tubular secretion. Glucose [Mass/Vol] 92 mg/dL 70 - 99 mg/dL [facility]ALS[facility] [employer] Interpretation and review of laboratory results Abnormal [facility] Potassium [Moles/Vol] 4.3 mmol/L 3.7 - 5.3 mmol/L [facility] [employer] Protein [Mass/Vol] 7.4 g/dL 6.4 - 8.3 g/dL [facility]ALS[facility] [employer] Sodium [Moles/Vol] 140 mmol/L 135 - 144 mmol/L [facility] Urea nitrogen [Mass/Vol] 22 mg/dL 8 - 23 mg/dL [facility] HOSPITALMeaningo [employer] Urea nitrogen/Creatinine [Mass ratio] 18 mg/mg 9 - 20 [email or web address] Lipid Panelon 12-22-2023 Cholesterol [Mass/Vol] 155 mg/dL 0 - 1 99 mg/dL [email or web address] Comment on above: Cholesterol Guidelines: <200 Desirable 200-240 Borderline >240 Undesirable Cholesterol in HDL [Mass/Vol] 50 mg/dL 40 - PINF mg/dL [email or web address] Comment on above: HDL Guidelines: <40 Undesirable 40-59 Borderline >59 Desirable Cholesterol in LDL [Mass/Vol] 92 mg/dL 0 - 100 mg/dL [email or web address] Comment on above: LDL Guidelines: <100 Desirable 100-129 Near to/above Desirable 130-159 Borderline >159 Undesirable Direct (measured) LDL and calculated LDL are not interchangeable tests. Cholesterol in VLDL [Mass/Vol] 13 mg/dL [email or web address] Cholesterol.total/Chol esterol in HDL [Mass ratio] 3.0 {ratio} [email or web address] Triglyceride [Mass/Vol] 66 mg/dL NINF - 150 mg/dL [email or web address] Comment on above: Triglyceride Guidelines: <150 Desirable 150-199 Borderline 200-499 High >499 Very high Based on AHA Guidelines for fasting triglyceride, December 2011. [facility] [employer] Lipid Profileon 12-22-2023 Cholesterol [Mass/Vol] 155 mg/dL Normal 0-199 [facility] Comment on above: Result Comment: Cholesterol Guidelines: <200 Desirable 200-240 Borderline >240 Undesirable Performed By: #### M Oskar, TSHX, CP, CDP #### [facility] [address] [place], [place] 9937190 Last Ironer: William Iqbal MD #### VD25, LIPR, FT4 #### [facility] [employer] [address] [place], [place] 46524[address] Last Ironer: Wilian Calvillo MD Cholesterol in HDL [Mass/Vol] 50 mg/dL Normal >40 [facility] Comment on above: Result Comment: HDL Guidelines: <40 Undesirable 40-59 Borderline >59 Desirable Performed By: #### M Oskar, TSHX, CP, CDP #### [facility] [address] [place], [place] 6944190 Last Ironer: William Iqbal MD #### VD25, LIPR, FT4 #### [address] [id number] Last Ironer: Wilian Calvillo MD Cholesterol in LDL [Mass/Vol] 92 mg/dL Normal 0-100 [facility] Comment on above: Result Comment: LDL Guidelines: <100 Desirable 100-129 Near to/above Desirable 130-159 Borderline >159 Undesirable Direct (measured) LDL and calculated LDL are not interchangeable tests. Performed By: #### Steffany Schmitt, TSHX, CP, CDP #### [facility] [address] [place], [place] 9017290 Last Ironer: William Iqbal MD #### VD25, LIPR, FT4 #### [facility] [employer] [address] [place], [place] [id number] Last Ironer: Wilian Calvillo MD Cholesterol in VLDL [Mass/Vol] 13 mg/dL Normal [facility] Comment on above: Performed By: #### M G, TSHX, CP, CDP #### [facility] [address] [place], [place] [phone] Last Ironer: William Iqbal MD #### VD25, LIPR, FT4 #### [facility] [employer] [address] [place] [address] Last Ironer: Wilian Calvillo MD Cholesterol.total/Chol esterol in HDL [Mass ratio] 3.0 {ratio} Normal [facility] Comment on above: Performed By: #### M G, TSHX, CP, CDP #### [facility] [address] [place], [place] 7704390 Last Ironer: William Iqbal MD #### VD25, LIPR, FT4 #### [facility] [employer] [address] [place] [address] Last Ironer: Wilian Calvillo MD Triglyceride [Mass/Vol] 66 mg/dL Normal <150 [facility] Comment on above: Result Comment: Triglyceride Guidelines: <150 Desirable 150-199 Borderline 200-499 High >499 Very high Based on AHA Guidelines for fasting triglyceride, December 2011. Performed By: #### M G, TSHX, CP, CDP #### [facility] [address] [place], [place] [phone] Last Ironer: William Iqbal MD #### VD25, LIPR, FT4 #### [facility] [employer] [address] [place] [address] Last Ironer: Wilian Calvillo MD Magnesiumon 12-22-2023 Magnesium [Mass/Vol] 2.2 mg/dL 1.6 - 2 .6 mg/dL [facility] Magnesium [Mass/Vol] 2.2 mg/dL Normal 1.6-2.6 [facility] Comment on above: Performed By: #### C P, MG, TSHX, CDP ####[facility] [address] [place] [id number] Lab Director: William Iqbal MD#### VD25, FT4, LIPR ####[facility] [address] [place] [address] Lab Director: Wilian Calvillo MD No Panel Informationon 12-21 [facility] T4, Freeon 12-22-2023 Free T4 [Mass/Vol] 1.3 ng/dL 0.92 - 1. 68 ng/dL [facility] TSH w/reflex to FT4on 2023 Thyroid Stim. Horm. 5.85 uIU/mL High 0.30-5.00 [facility] Comment on above: Performed By: #### Steffany Schmitt, TSHX, CP, CDP #### [facility] [address] [place] [address] Last Ironer: William Iqbal MD #### VD25, LIPR, FT4 #### [employer] [address] [place] [address] Last Ironer: Wilian Calvillo MD TSH with Reflexon 12-22-2023 Interpretation and review of laboratory results Abnormal [facility] TSH Qn 5.85 m[IU]/L High [facility] Thyroxine, Freeon 12-22-2023 Thyroxine, Free 1.3 ng/dL Normal 0.92-1.68 [facility] Comment on above: Performed By: #### Steffany Schmitt, TSHX, CP, CDP #### [facility] Lab [address] [place] [address] Last Ironer: William Iqbal MD #### VDJovanny, LIPR, FT4 #### [employer] [address] [place] [address] Last Ironer: Wilian Calvillo MD Vitamin D 25 Hydroxyon 12-21 25-hydroxyvitamin D3 [Mass/Vol] 36.2 ng/mL 30.0 - 100.0 ng/mL [facility] Comment on above: Reference Range: Vitamin D status Range Deficiency <20 ng/mL Mild Deficiency 20-30 ng/mL Sufficiency 30-100 ng/mL Toxicity >100 ng/mL [facility] Vitamin D 25 OHon 12-22-2023 Vitamin D 25 OH 36.2 ng/mL Normal 30.0-100.0 [facility] Comment on above: Result Comment: Reference Range: Vitamin D status Range Deficiency <20 ng/mL Mild Deficiency 20-30 ng/mL Sufficiency 30-100 ng/mL Toxicity >100 ng/mL Performed By: #### M G, TSHX, CP, CDP #### [facility] [address] [place] [address] Last Ironer: William Iqbal MD #### VD25, LIPR, FT4 #### [employer] [address] [place], [place] [id number] Last Ironer: Wilian Calvillo MD Cardiac echo study Procedure on 12-14-2023 Aortic Root 3.2 cm [facility] Ascending Aorta 2.8 cm [facility] [employer] AV Area by Peak Velocity 3.1 cm2 [facility] AV Peak Gradient 5 mmHg [facility] [employer] [facility] AV Peak Velocity 1.1 m/s [facility] [employer] [facility] AV Velocity Ratio 0.73 [facility] E/E' Lateral 6.17 [facility] E/E' Ratio (Averaged) 6.45 [facility] [employer] [facility] E/E' Septal 6.73 [facility] [employer] [facility] EF Physician 55 % [facility] [employer] [facility] Est. RA Pressure 8 mmHg [facility] Fractional Shortening 2D 28 % 28 - 44 % [facility] IVSd 0.9 cm 0.6 - 1.0 cm [facility] LA Diameter 4.9 cm [facility] LA/AO Root Ratio 1.53 [facility] LV E' Lateral Velocity 12 cm/s [facility] LV E' Septal Velocity 11 cm/s [facility] LV Mass 2D 142.7 g 88 - 224 g [facility] LV RWT Ratio 0.38 [facility] LVIDd 4.7 cm 4.2 - 5.9 cm [facility] LVIDs 3.4 cm [facility] LVOT Area 4.5 cm2 [facility] LVOT Diameter 2.4 cm [facility] LVOT Mean Gradient 1 mmHg [facility] LVOT Peak Gradient 2 mmHg [facility] LVOT Peak Velocity 0.8 m/s [facility] LVOT SV 85.0 ml [facility] LVOT VTI 18.8 cm [facility] LVPWd 0.9 cm 0.6 - 1.0 cm [facility] MV A Velocity 0.01 m/s [facility]otte MV E Velocity 0.74 m/s [facility] MV E Wave Deceleration Time 268.6 ms [facility] Quotte MV E/A 74.00 [facility] Whittl PV Max Velocity 1.0 m/s [facility] PV Peak Gradient 4 mmHg [facility] Whitt[facility] RVIDd 4.2 cm [facility] Quotte RVSP 45 mmHg [facility] [employer] Quotte TR Max Velocity 3.06 m/s [facility] TR Peak Gradient 38 mmHg [facility] Whittl Left Ventricle: Normal left ventricular systolic function. EF by visual approximation is 55%. Left ventricle size is normal. Moderately increased wall thickness. Right Ventricle: Right ventricle is moderately dilated. Aortic Valve: Mildly thickened cusps. No aortic stenosis Mitral Valve: Mildly thickened leaflets. Moderate regurgitation. Tricuspid Valve: Valve structure is normal. Moderate regurgitation. The estimated RVSP is 45 mmHg. Left Atrium: Left atrium is severely dilated. Right Atrium: Right atrium is severely dilated. Image quality is fair. Normal LV function, EF 55% Moderate MR and TR Moderate pulmonary hypertension with PAP 45 mmHg Repeat echo in 1 year Left Ventricle Normal left ventricular systolic function. EF by visual approximation is 55%. Left ventricle size is normal. Moderately increased wall thickness. Right Ventricle Right ventricle is moderately dilated. Left Atrium Left atrium is severely dilated. Right Atrium Right atrium is severely dilated. Mitral Valve Mildly thickened leaflets. Moderate regurgitation. Tricuspid Valve Valve structure is normal. Moderate regurgitation. The estimated RVSP is 45 mmHg. Aortic Valve Mildly thickened cusps. No aortic stenosis Pulmonic Valve The pulmonic valve was not well visualized. Ascending Aorta Normal sized aorta. Pericardium No pericardial effusion. Study Details Image quality: fair. Color flow Doppler was performed and pulse wave and/or continuous wave Doppler was performed. No contrast was given. [facility] CV CPACS [facility] Cardiac echo study Procedure on 12-12-2023 Radiology Study observation (narrative) [facility] Estimated glomerular filtrat ion rate (GFR) non- Americanon 11-19-2023 GFR/1.73 sq M.predicted among non-blacks MDRD (S/P/Bld) [Vol rate/Area] 55 mL/min/{1.73_m2} Low >=60 [facility] Laboratory - Chemistry and C hemistry - challengeon 11-19-2023 Calcium [Mass/Vol] 8.9 mg/dL 8.5-10.1 [facility] Chloride [Moles/Vol] 104 mmol/L 98-107 [facility] CO2 [Moles/Vol] 28.5 mmol/L 21.0-32.0 [facility] Creatinine [Mass/Vol] 1.26 mg/dL 0.70-1.30 [facility] GFR/1.73 sq M.predicted MDRD (S/P/Bld) [Vol rate/Area] mL/min/{1.73_m2} >=60 [facility] Glucose [Mass/Vol] 99 mg/dL 74-106 [facility] Potassium [Moles/Vol] 4.4 mmol/L 3.5-5.1 [facility] Sodium [Moles/Vol] 139 mmol/L 136-145 [facility] Urea nitrogen [Mass/Vol] 27.0 mg/dL High 7.0-18.0 [facility] Urea nitrogen/Creatinine [Mass ratio] 21.4 mg/mg [facility] No Panel Informationon 11-18 Prostate Specific Antigen Screen 4.94 ng/mL High <=4.00 [facility] Serum or plasma anion gap de terminationon 11-19-2023 Anion gap [Moles/Vol] 10.9 mmol/L [facility] CBC with Diffon 08-27-2023 Abs. Basophil 0.03 k/uL Normal 0.00-0.20 [facility] Comment on above: Performed By: #### V D25, LIPR, FT4 #### [employer] [address] [place], [place] [id number] Last Ironer: Wilian Calvillo MD #### TSHX, CP, CDP, MG #### [facility] [address] [phone] Last Ironer: William Iqbal MD Abs.Imm.Granulocyte 0.01 k/uL Normal 0.00-0.30 [facility] Comment on above: Performed By: #### V D25, LIPR, FT4 #### [address] [id number] Last Ironer: Wilian Calvillo MD #### TSHX, CP, CDP, MG #### [facility] [address] [place] [address] Last Ironer: William Iqbal MD Abs.Neutrophil (Seg) 3.82 k/uL Normal 2.1-6.5 [facility] Comment on above: Performed By: #### V D25, LIPR, FT4 #### [place] [id number] Last Ironer: Wilian Calvillo MD #### TSHX, CP, CDP, MG #### [facility] [address] [phone] Last Ironer: William Iqbal MD Basophils/100 WBC (Bld) 1 % Normal 0-2 [facility] Comment on above: Performed By: #### V D25, LIPR, FT4 #### [address] [phone] Last Ironer: Wilian Calvillo MD #### TSHX, CP, CDP, MG #### [facility] [address] [phone] Last Ironer: William Iqbal MD Eosinophils (Bld) [#/Vol] 0.10 10*3/uL Normal 0.00-0.40 [facility] Comment on above: Performed By: #### V D25, LIPR, FT4 #### [facility] [place], [place] [id number] Last Ironer: Wilian Calvillo MD #### TSHX, CP, CDP, MG #### [facility] [address] [place], [place] [phone] Last Ironer: William Iqbal MD Eosinophils/100 WBC (Bld) 2 % Normal 0-5 [facility] Comment on above: Performed By: #### V D25, LIPR, FT4 #### [address] [phone] Last Ironer: Wilian Calvillo MD #### TSHX, CP, CDP, MG #### [facility] [address] [place], [place] [phone] Last Ironer: William Iqbal MD Erythrocyte distribution width (RBC) [Ratio] 13.5 % Normal 12.1-15.2 [facility] Comment on above: Performed By: #### V D25, LIPR, FT4 #### [address] [id number] Last Ironer: Wilian Calvillo MD #### TSHX, CP, CDP, MG #### [facility] [address] [place], [place] [phone] Last Ironer: William Iqbal MD Hematocrit (Bld) [Volume fraction] 36.5 % Low 41.0-53.0 [facility] Comment on above: Performed By: #### V D25, LIPR, FT4 #### [address] [id number] Last Ironer: Wilian Calvillo MD #### TSHX, CP, CDP, MG #### [facility] [address] [place], [place] [phone] Last Ironer: William Iqbal MD Hemoglobin (Bld) [Mass/Vol] 11.7 g/dL Low 13.5-17.5 [facility] Comment on above: Performed By: #### V D25, LIPR, FT4 #### [address] [phone] Last Ironer: Wilian Calvillo MD #### TSHX, CP, CDP, MG #### [facility] [address] [phone] Last Ironer: William Iqbal MD Immature granulocytes/100 WBC (Bld) 0 % Normal 0-5 [facility] Comment on above: Performed By: #### V D25, LIPR, FT4 #### [address] [phone] Last Ironer: Wilian Calvillo MD #### TSHX, CP, CDP, MG #### [facility] [address] [place] [phone] Last Ironer: William Iqbal MD Lymphocytes (Bld) [#/Vol] 1.06 10*3/uL Normal 1.00-4.80 [facility] Comment on above: Performed By: #### V D25, LIPR, FT4 #### [address] [id number] Last Ironer: Wilian Calvillo MD #### TSHX, CP, CDP, MG #### [facility] [address] [phone] Last Ironer: William Iqbal MD Lymphocytes/100 WBC (Bld) 19 % Normal 13-44 [facility] Comment on above: Performed By: #### V D25, LIPR, FT4 #### [address] [phone] Last Ironer: Wilian Calvillo MD #### TSHX, CP, CDP, MG #### [facility] [address] [phone] Last Ironer: William Iqbal MD MCH (RBC) [Entitic mass] 30.6 pg Normal 26.0-34.0 [facility] Comment on above: Performed By: #### V D25, LIPR, FT4 #### [address] [phone] Last Ironer: Wilian Calvillo MD #### TSHX, CP, CDP, MG #### [facility] [address] [place] [address] Last Ironer: William Iqbal MD MCHC (RBC) [Mass/Vol] 32.1 g/dL Normal 31.0-37.0 [facility] Comment on above: Performed By: #### V D25, LIPR, FT4 #### [place] [id number] Last Ironer: Wilian Calvillo MD #### TSHX, CP, CDP, MG #### [facility] [address] [place] [address] Last Ironer: William Iqbal MD MCV (RBC) [Entitic vol] 95.5 fL Normal 80.0-100.0 [facility] Comment on above: Performed By: #### V D25, LIPR, FT4 #### [place] [id number] Last Ironer: Wilian Calvillo MD #### TSHX, CP, CDP, MG #### [facility] [address] [place] [address] Last Ironer: William Iqbal MD Monocytes (Bld) [#/Vol] 0.66 10*3/uL Normal 0.00-1.00 [facility] Comment on above: Performed By: #### V D25, LIPR, FT4 #### [address] [phone] Last Ironer: Wilian Calvillo MD #### TSHX, CP, CDP, MG #### [facility] [address] [place] [address] Last Ironer: William Iqbal MD Monocytes/100 WBC (Bld) 12 % High 5-9 [facility] Comment on above: Performed By: #### V D25, LIPR, FT4 #### [address] [phone] Last Ironer: Wilian Calvillo MD #### TSHX, CP, CDP, MG #### [facility] [address] [place] [address] Last Ironer: William Iqbal MD Neutrophil (Seg) 66 % Normal 39-75 [facility] Comment on above: Performed By: #### V D25, LIPR, FT4 #### [address] [phone] Last Ironer: Wilian Calvillo MD #### TSHX, CP, CDP, MG #### [facility] [address] [place] [address] Last Ironer: William Iqbal MD Platelet mean volume (Bld) [Entitic vol] 9.3 fL Normal 6.0-12.0 [facility] Comment on above: Performed By: #### V D25, LIPR, FT4 #### [address] [phone] Last Ironer: Wilian Calvillo MD #### TSHX, CP, CDP, MG #### [facility] [address] [phone] Last Ironer: William Iqbal MD Platelets (Bld) [#/Vol] 195 10*3/uL Normal 140-450 [facility] Comment on above: Performed By: #### V D25, LIPR, FT4 #### [address] [place] [address] Last Ironer: Wilian Calvillo MD #### TSHX, CP, CDP, MG #### [facility] [address] [place], [place] [phone] Last Ironer: William Iqbal MD RBC (Bld) [#/Vol] 3.82 10*6/uL Low 4.50-5.90 [facility] Comment on above: Performed By: #### V D25, LIPR, FT4 #### [facility] [address] [place] [address] Last Ironer: Wilian Calvillo MD #### TSHX, CP, CDP, MG #### [facility] [address] [place], [place] [phone] Last Ironer: William Iqbal MD WBC (Bld) [#/Vol] 5.7 10*3/uL Normal 3.5-11.0 [facility] Comment on above: Performed By: #### V D25, LIPR, FT4 #### [address] [address] Last Ironer: Wilian Calvillo MD #### TSHX, CP, CDP, MG #### [facility] [address] [place], [place] [phone] Last Ironer: William Iqbal MD Comp Metabolic Profon 2023 Albumin [Mass/Vol] 3.9 g/dL Normal 3.5-5.2 [facility] Comment on above: Performed By: #### V D25, LIPR, FT4 ####[facility] [address] [place] [address] Lab Director: Wilian Calvillo MD#### TSHX, CP, CDP, MG ####[facility] [address] [place], [place] [id number] Lab Director: William Iqbal MD Alkaline Phos 135 U/L High 40-129 [facility] Comment on above: Performed By: #### V D25, LIPR, FT4 ####[facility] [address] [place] [address] Lab Director: Wilian Calvillo MD#### TSHX, CP, CDP, MG ####[facility] [address] [place] [address] Lab Director: William Iqbal MD ALT [Catalytic activity/Vol] 15 U/L Normal 5-41 [facility] Comment on above: Performed By: #### V D25, LIPR, FT4 ####[address] [place] [address] Lab Director: Wilian Calvillo MD#### TSHX, CP, CDP, MG ####[facility] [address] [place] [address] Lab Director: William Iqbal MD Anion gap [Moles/Vol] 9 mmol/L Normal 9-17 [facility] Comment on above: Performed By: #### V D25, LIPR, FT4 ####[address] [place] [address] Lab Director: Wilian Calvillo MD#### TSHX, CP, CDP, MG ####[facility] [address] [place] [address] Lab Director: William Iqbal MD AST [Catalytic activity/Vol] 20 U/L Normal <40 [facility] Comment on above: Performed By: #### V D25, LIPR, FT4 ####[address] [place] [address] Lab Director: Wilian Calvillo MD#### TSHX, CP, CDP, MG ####[facility] [address] [place] [phone] Director: William Iqbal MD Bilirubin [Mass/Vol] 0.6 mg/dL Normal 0.3-1.2 [facility] Comment on above: Performed By: #### V D25, LIPR, FT4 ####[facility] [address] [place] [address] Lab Director: Wilian Calvillo MD#### TSHX, CP, CDP, MG ####[facility] [address] [place], [place] [id number] lab Director: William Iqbal MD BUN/CRE Ratio 19 Normal 9-20 [facility] Comment on above: Performed By: #### V D25, LIPR, FT4 ####[address] [address] lab Director: Wilian Calvillo MD#### TSHX, CP, CDP, MG ####[facility] [address] [place] [address] lab Director: William Iqbal MD Calcium [Mass/Vol] 8.9 mg/dL Normal 8.6-10.4 [facility] Comment on above: Performed By: #### V D25, LIPR, FT4 ####[address] [address] Lab Director: Wilian Calvillo MD#### TSHX, CP, CDP, MG ####[facility] [address] [place] [address] lab Director: William Iqbal MD Chloride [Moles/Vol] 105 mmol/L Normal 98-107 [facility] Comment on above: Performed By: #### V D25, LIPR, FT4 ####[facility] [place] [address] Lab Director: Wilian Calvillo MD#### TSHX, CP, CDP, MG ####[facility] [address] [place], [place] [id number] lab Director: William Iqbal MD CO2 [Moles/Vol] 26 mmol/L Normal 20-31 [facility] Comment on above: Performed By: #### V D25, LIPR, FT4 ####[facility] [address] [place] [address] Lab Director: Wilian Calvillo MD#### TSHX, CP, CDP, MG ####[facility] [address] [place], [place] [id number] lab Director: William Iqbal MD Creatinine [Mass/Vol] 1.1 mg/dL Normal 0.7-1.2 [facility] Comment on above: Performed By: #### V D25, LIPR, FT4 ####[address] [place] [address] Lab Director: Wilian Calvillo MD#### TSHX, CP, CDP, MG ####[facility] [address] [place], [place] [id number] lab Director: William Iqbal MD GFR/1.73 sq M.predicted among non-blacks MDRD (S/P/Bld) [Vol rate/Area] 67 mL/min/{1.73_m2} Normal >60 [facility] Comment on above: Result Comment: These results are not intended for use in patients <18 years of age. eGFR results are calculated without a race factor using the 2020 CKD-EPI equation. Careful clinical correlation is recommended, particularly when comparing to results calculated using previous equations. The CKD-EPI equation is less accurate in patients with extremes of muscle mass, extra-renal metabolism of creatine, excessive creatine ingestion, or following therapy that affects renal tubular secretion. Performed By: #### V D25, LIPR, FT4 ####[facility] [address] [place], [place] [id number] Lab Director: Wilian Calvillo MD#### TSHX, CP, CDP, MG ####[facility] [address] [place] [address] Lab Director: William Iqbal MD Glucose [Mass/Vol] 96 mg/dL Normal 70-99 [facility] Comment on above: Performed By: #### V D25, LIPR, FT4 ####[facility] [address] [place] [address] Lab Director: Wilian Calvillo MD#### TSHX, CP, CDP, MG ####[facility] [address] [place] [address] Lab Director: William Iqbal MD Potassium [Moles/Vol] 4.6 mmol/L Normal 3.7-5.3 [facility] Comment on above: Performed By: #### V D25, LIPR, FT4 ####[address] [place] [address] Lab Director: Wilian Calvillo MD#### TSHX, CP, CDP, MG ####[facility] [address] [place] [address] Lab Director: William Iqbal MD Protein [Mass/Vol] 7.3 g/dL Normal 6.4-8.3 [facility] Comment on above: Performed By: #### V D25, LIPR, FT4 ####[facility] [address] [place] [address] Lab Director: Wilian Calvillo MD#### TSHX, CP, CDP, MG ####[facility] [address] [place] [address] Lab Director: William Iqbal MD Sodium [Moles/Vol] 140 mmol/L Normal 135-144 [facility] Comment on above: Performed By: #### V D25, LIPR, FT4 ####[facility] [address] [place] [address] Lab Director: Wilian Calvillo MD#### TSHX, CP, CDP, MG ####[facility] [address] [place] [address] lab Director: William Iqbal MD Urea nitrogen [Mass/Vol] 21 mg/dL Normal 8-23 [facility] Comment on above: Performed By: #### V D25, LIPR, FT4 ####[facility] [address] [place] [address] Lab Director: Wilian Calvillo MD#### TSHX, CP, CDP, MG ####[facility] [address] [place] [address] lab Director: William Iqbal MD Lipid Profileon 08-27-2023 Cholesterol [Mass/Vol] 163 mg/dL Normal 0-199 [facility] Comment on above: Result Comment: Cholesterol Guidelines: <200 Desirable 200-240 Borderline >240 Undesirable Performed By: #### V D25, LIPR, FT4 ####[address] [place] [address] Lab Director: Wilian Calvillo MD#### TSHX, CP, CDP, MG ####[facility] [address] [place] [address] Lab Director: William Iqbal MD Cholesterol in HDL [Mass/Vol] 52 mg/dL Normal >40 [facility] Comment on above: Result Comment: HDL Guidelines: <40 Undesirable 40-59 Borderline >59 Desirable Performed By: #### V D25, LIPR, FT4 ####[facility] [address] [place] [address] Lab Director: Wilian Calvillo MD#### TSHX, CP, CDP, MG ####[facility] [address] [place] [address] Lab Director: William Iqbal MD Cholesterol in LDL [Mass/Vol] 96 mg/dL Normal 0-100 [facility] Comment on above: Result Comment: LDL Guidelines: <100 Desirable 100-129 Near to/above Desirable 130-159 Borderline >159 Undesirable Direct (measured) LDL and calculated LDL are not interchangeable tests. Performed By: #### V D25, LIPR, FT4 ####[facility] [address] [place] [address] Lab Director: Wilian Calvillo MD#### TSHX, CP, CDP, MG ####[facility] [address] [place] [address] Lab Director: William Iqbal MD Cholesterol in VLDL [Mass/Vol] 16 mg/dL Normal [facility] Comment on above: Performed By: #### V D25, LIPR, FT4 ####[facility] [address] [place] [address] Lab Director: Wilian Calvillo MD#### TSHX, CP, CDP, MG ####[facility] [address] [place] [address] Lab Director: William Iqbal MD Cholesterol.total/Chol esterol in HDL [Mass ratio] 3.0 {ratio} Normal [facility] Comment on above: Performed By: #### V D25, LIPR, FT4 ####[facility] [address] [place] [address] Lab Director: Wilian Calvillo MD#### TSHX, CP, CDP, MG ####[facility] [address] [place], [place] [id number] Lab Director: William Iqbal MD Triglyceride [Mass/Vol] 78 mg/dL Normal <150 [facility] Comment on above: Result Comment: Triglyceride Guidelines: <150 Desirable 150-199 Borderline 200-499 High >499 Very high Based on AHA Guidelines for fasting triglyceride, December 2011. Performed By: #### V D25, LIPR, FT4 ####[address] [address] lab Director: Wilian Calvillo MD#### TSHX, CP, CDP, MG ####[facility] [address] [place] [address] lab Director: William Iqbal MD Magnesiumon 08-27-2023 Magnesium [Mass/Vol] 2.2 mg/dL Normal 1.6-2.6 [facility] Comment on above: Performed By: #### V D25, LIPR, FT4 ####[address] [address] Lab Director: Wilian Calvillo MD#### TSHX, CP, CDP, MG ####[facility] [address] [place] [address] lab Director: William Iqbal MD TSH w/reflex to FT4on 2023 Thyroid Stim. Horm. 6.58 uIU/mL High 0.30-5.00 [facility] [facility] Comment on above: Performed By: #### V D25, LIPR, FT4 ####[address] [address] Lab Director: Wilian Calvillo MD#### TSHX, CP, CDP, MG ####[facility] [id number] [place] [address] lab Director: William Iqbal MD Thyroxine, Freeon 08-27-2023 Thyroxine, Free 1.3 ng/dL Normal 0.92-1.68 [facility] Comment on above: Performed By: #### V D25, LIPR, FT4 ####[address] [address] Lab Director: Wilian Calvillo MD#### TSHX, CP, CDP, MG ####[facility] [address] [place] [address] lab Director: William Iqbal MD Vitamin D 25 OHon 08-27-2023 Vitamin D 25 [place] 16.3 ng/mL Low 30.0-100.0 [facility] Comment on above: Result Comment: Reference Range: Vitamin D status Range Deficiency <20 ng/mL Mild Deficiency 20-30 ng/mL Sufficiency 30-100 ng/mL Toxicity >100 ng/mL Performed By: #### V D25, LIPR, FT4 ####[facility] [address] [place], [place] [id number] lab Director: Wilian Calvillo MD#### TSHX, CP, CDP, MG ####[facility] [id number] [place] [address] lab Director: William Iqbal MD XR CHEST (2 VW)on 08-27-2023 XR CHEST (2 VW) EXAM: XR CHEST (2 VW ) HISTORY: Atrial flutter, unspecified type (HCC) COMPARISON: 08/30/2022 IMPRESSION: FINDINGS/IMPRESSION: 1. Mild stable cardiomegaly. 2. Scarring in the mid and inferior lung armendariz, bilaterally, without change. 3. No pulmonary edema or pneumonia. Interpreted by: Lopez Hough Jr., MD Signed by: Lopez Hough Jr., MD 08/27/23 Final result Normal [facility] CBC with Auto Differentialon 08-30-2022 Basophils (Bld) [#/Vol] 0.10 10*3/uL [facility] Basophils/100 WBC (Bld) 1 % 0 - 2 % [facility] Differential Type YES [facility] Eosinophils (Bld) [#/Vol] 0.20 10*3/uL [facility] Eosinophils/100 WBC (Bld) 4 % 0 - 5 % [facility] Erythrocyte distribution width (RBC) [Ratio] 14.8 % 12.1 - 15.2 % [facility] Hematocrit (Bld) [Volume fraction] 36.2 % Low 41 - 53 % [facility] Hemoglobin (Bld) [Mass/Vol] 12.1 g/dL Low 13.5 - 17.5 g/dL [facility] Interpretation and review of laboratory results Abnormal [facility] Lymphocytes/100 WBC (Bld) 21 % 13 - 44 % [facility] Lymphocytes/100 WBC (Bld) 1.20 % [facility] MCH (RBC) [Entitic mass] 31.1 pg 26 - 34 pg [facility] MCHC (RBC) [Mass/Vol] 33.4 g/dL 31 - 37 g/dL B ON [facility] MCV (RBC) [Entitic vol] 93.1 fL 80 - 100 fL [facility] Monocytes/100 WBC (Bld) 13 % High 5 - 9 % [facility] Monocytes/100 WBC (Bld) 0.70 % [facility] Neutrophils/100 WBC (Bld) 61 % 39 - 75 % [facility] Platelets (Bld) [#/Vol] 207 10*3/uL [facility] RBC (Bld) [#/Vol] 3.89 10*6/uL Low 4.5 - 5.9 m/uL [facility] Segmented neutrophils/100 WBC (Bld) 3.40 % [facility] WBC other (Bld) [#/Vol] 5.6 [facility] Comprehensive Met[facility] 08-30-2022 Albumin [Mass/Vol] 3.6 g/dL 3.5 - 5.2 g/dL [facility] ALP [Catalytic activity/Vol] 112 U/L 40 - 129 U/L [facility] ALT [Catalytic activity/Vol] 10 U/L 5 - 41 U/L [facility] Anion gap [Moles/Vol] 8 mmol/L Low 9 - 17 mmol/L [facility] AST [Catalytic activity/Vol] 16 U/L NINF - 40 U/L [facility] Bilirubin [Mass/Vol] 0.5 mg/dL 0.3 - 1 .2 mg/dL [facility] Calcium [Mass/Vol] 9.6 mg/dL 8.6 - 10. 4 mg/dL [facility] Chloride [Moles/Vol] 105 mmol/L 98 - 10 7 mmol/L [facility] CO2 [Moles/Vol] 26 mmol/L 20 - 31 mmol/L [facility] Creatinine [Mass/Vol] 1.1 mg/dL 0.70 - 1.20 mg/dL [facility] GFR/1.73 sq M.predicted MDRD (S/P/Bld) [Vol rate/Area] - PINF [facility] Comment on above: These results are not intended for use in patients <18 years of age. eGFR results are calculated without a race factor using the 2020 CKD-EPI equation. Careful clinical correlation is recommended, particularly when comparing to results calculated using previous equations. The CKD-EPI equation is less accurate in patients with extremes of muscle mass, extra-renal metabolism of creatine, excessive creatine ingestion, or following therapy that affects renal tubular secretion. Glucose [Mass/Vol] 89 mg/dL 70 - 99 mg/dL [facility] Interpretation and review of laboratory results Abnormal [facility] Potassium [Moles/Vol] 4.5 mmol/L 3.7 - 5.3 mmol/L [facility] Protein [Mass/Vol] 7.1 g/dL 6.4 - 8.3 g/dL [facility] Sodium [Moles/Vol] 139 mmol/L 135 - 144 mmol/L [facility] Urea nitrogen [Mass/Vol] 22 mg/dL 8 - 23 mg/dL [facility] Urea nitrogen/Creatinine [Mass ratio] 20 mg/mg 9 - 20 [facility] Lipid Panelon 08-30-2022 Cholesterol [Mass/Vol] 164 mg/dL NINF - 200 mg/dL [facility] Comment on above: Cholesterol Guidelines: <200 Desirable 200-240 Borderline >240 Undesirable Cholesterol in HDL [Mass/Vol] 48 mg/dL 40 - PINF mg/dL [facility] Comment on above: HDL Guidelines: <40 Undesirable 40-59 Borderline >59 Desirable Cholesterol in LDL [Mass/Vol] 105 mg/dL 0 - 130 mg/dL [facility] Comment on above: LDL Guidelines: <100 Desirable 100-129 Near to/above Desirable 130-159 Borderline >159 Undesirable Direct (measured) LDL and calculated LDL are not interchangeable tests. Cholesterol.total/Chol esterol in HDL [Mass ratio] 3.4 {ratio} NINF - 5 [facility] Triglyceride [Mass/Vol] 56 mg/dL NINF - 150 mg/dL [facility] Comment on above: Triglyceride Guidelines: <150 Desirable 150-199 Borderline 200-499 High >499 Very high Based on AHA Guidelines for fasting triglyceride, December 2011. [facility] Magnesiumon 08-30-2022 Magnesium [Mass/Vol] 2.1 mg/dL 1.6 - 2 .6 mg/dL [facility] No Panel Informationon 08-30 [facility] Patient Fasting?on Patient Fasting? YES [facility] T4, Freeon 08-30-2022 Free T4 [Mass/Vol] 1.3 ng/dL 0.9 - 1.7 ng/dL [facility] TSH with Reflexon 08-30-2022 Interpretation and review of laboratory results Abnormal [facility] TSH [Mass/Vol] 6.55 High [facility] Vitamin D 25 Hydroxyon 08-30 25-hydroxyvitamin D3 [Mass/Vol] 30.1 ng/mL 29.9 - PINF ng/mL [facility] Comment on above: Reference Range: Vitamin D status Range Deficiency <20 ng/mL Mild Deficiency 20-30 ng/mL Sufficiency 30-100 ng/mL Toxicity >100 ng/mL [facility] XR CHEST (2 VW)on 08-30-2022 FINDINGS/IMPRESSION: 1. Small amount of fluid in one of the major fissures on the lateral view. 2. Slight improvement in airspace opacities at the right lung base. 3. Mild stable cardiomegaly. 4. Chronic mild stranding left mid and lower lung zone. [facility] RIS CONSOLIDATED EXAM: XR CHEST (2 VW ) HISTORY: Reason for exam:->a fib COMPARISON: Chest, [place], 07/09/2022, 08/22/2021, CT abdomen and pelvis 07/12/2022 [facility] RIS CONSOLIDATED Lopez Hough Jr., MD - 08/30/2022 EXAM: XR CHEST (2 VW) HISTORY: Reason for exam:->a fib COMPARISON: Chest, [place], 07/09/2022, 08/22/2021, CT abdomen and pelvis 07/12/2022 IMPRESSION: FINDINGS/IMPRESSION: 1. Small amount of fluid in one of the major fissures on the lateral view. 2. Slight improvement in airspace opacities at the right lung base. 3. Mild stable cardiomegaly. 4. Chronic mild stranding left mid and lower lung zone. [facility] Phone: Radiology Study observation (narrative) [facility] Phone: XR CHEST (2 VW)Ordered By: Joana Hough on 08-30-2022 [facility] Phone: CT ABD/PELV W CONon 07-14-19 CT ABD/PELV W CON EXAM: CT scan of the abdomen and pelvis using 97 mL of IV iodinated contrast. Oral contrast. Dose reduction technique used: Automated exposure control and/or adjustment of the mA and/or kV according to patient size and/or use of iterative reconstruction technique. REASON FOR EXAM: Abdominal colic COMPARISON: CT scan dated 12/21/2019 FINDINGS: Suggestion of focal wall thickening in the mid descending colon with a caliber change in the colon at this level. Enlarged prostate. Small hepatic cyst. Large esophageal hiatal hernia. L2-L5 posterior ana and pedicle screw fusion with laminectomies, hardware is intact. Airspace opacities in the right lower lung. No evidence of appendicitis. No free intraperitoneal air. No free fluid in the abdomen or pelvis. No dilated loops of small bowel or colon. No hydronephrosis or obstructing renal or ureteral calculi. Liver, pancreas, spleen, bilateral kidneys, and bilateral adrenal glands are otherwise unremarkable. No lymphadenopathy in the abdomen or pelvis. Remainder unremarkable. IMPRESSION: 1. Possible focal descending colonic wall thickening and caliber change in the colon at this level, underlying colon cancer cannot be excluded. Consider follow-up evaluation with colonoscopy if not performed recently. 2. Large esophageal hiatal hernia. 3. Right lower lung airspace opacities may be due to scarring or atelectasis although some component of acute airspace opacities is difficult to exclude. Electronically authenticated by: ZE SOTO Date: 2022-07-13 06:59 Normal [facility] CBC AUTO DIFFon 07-11-2022 BASO # 0.1 103/ul Normal 0.0-0.1 [facility] Comment on above: Performed By: #### C BC #### [facility] [address] [address] [address] Carolina Nam Basophils/100 WBC (Bld) 0.4 % Normal 0.2-2.0 [facility] Comment on above: Performed By: #### C BC #### [facility] [address] [address] [address] Carolina Nam EO # 0.2 103/ul Normal 0.0-0.7 [facility] Comment on above: Performed By: #### C BC #### [facility] [address] [address] [address] Carolina Nam Eosinophils/100 WBC (Bld) 1.2 % Normal 0.9-7.0 [facility] Comment on above: Performed By: #### C BC #### [facility] [address] [address] [address] Carolina Nam Erythrocyte distribution width (RBC) [Ratio] 13.7 % Normal 11.0-15.0 [facility] Comment on above: Performed By: #### C BC #### [facility] [address] [address] [address] Carolina Nam Hematocrit (Bld) [Volume fraction] 36.7 % Critically low 42.0-54.0 [facility] Comment on above: Performed By: #### C BC #### [facility] [address] [address] [address] Carolina Nam Hemoglobin (Bld) [Mass/Vol] 11.6 g/dL Critically low 14.0-18.0 [facility] Comment on above: Performed By: #### C BC #### [facility] [address] [place] [address] Dr. Carolina Nam IG # 0.06 10e3/ul Critically high 0.00-0.03 [facility] [place] Comment on above: Performed By: #### C BC #### [facility] [address] [place] [address] Dr. Carolina Nam IG % 0.5 % Normal 0.0-0.5 [facility] Comment on above: Performed By: #### C BC #### [facility] [address] [address] [address] Carolina Nam LYMPH # 1.3 103/ul Normal 1.2-3.8 [facility] Comment on above: Performed By: #### C BC #### [facility] [address] [place] [address] Dr. Carolina Nam Lymphocytes/100 WBC (Bld) 10.8 % Critically low 20.5-60.0 [facility] Comment on above: Performed By: #### C BC #### [facility] [address] [place] [address] Dr. Carolina Nam MANUAL DIFF REQ NO Normal [facility] Comment on above: Performed By: #### C BC #### [facility] [address] [place] [address] Dr. Carolina Nam MCH (RBC) [Entitic mass] 29.9 pg Normal 25.9-34.0 [facility] Comment on above: Performed By: #### C BC #### [facility] [address] [place] [address] Dr. Carolina Nam MCHC (RBC) [Mass/Vol] 31.6 g/dL Normal 29.9-35.2 [facility] Comment on above: Performed By: #### C BC #### [facility] [address] [place] [address] Dr. Carolina Nam MCV (RBC) [Entitic vol] 94.6 fL Critically high 80.0-94.0 [facility] Comment on above: Performed By: #### C BC #### [facility] [address] [place] [address] Dr. Carolina Nam MONO # 1.3 103/ul Critically high 0.3-0.8 [facility] Comment on above: Performed By: #### C BC #### [facility] [address] [address] [address] Carolina Nam Monocytes/100 WBC (Bld) 10.4 % Normal 1.7-12.0 [facility] Comment on above: Performed By: #### C BC #### [facility] [address] [address] [address] Carolina Nam NEUT # 9.4 103/ul Critically high 1.4-6.5 [facility] Comment on above: Performed By: #### C BC #### [facility] [address] [address] [address] Carolina Nam Neutrophils/100 WBC (Bld) 76.7 % Critically high 43.0-75.0 [facility] Comment on above: Performed By: #### C BC #### [facility] [address] [address] [address] Carolina Nam Platelet mean volume (Bld) [Entitic vol] 9.2 fL Critically low 9.5-13.5 [facility] Comment on above: Performed By: #### C BC #### [facility] [address] [address] [address] Carolina Nam PLT 335 103/ul Normal 150-450 [facility] Comment on above: Performed By: #### C BC #### [facility] [address] [address] [address] Carolina Nam RBC 3.88 106/ul Critically low 4.70-6.10 [facility] Comment on above: Performed By: #### C BC #### [facility] [id number] Carolina Nam WBC 12.2 103/ul Critically high 4.0-11.0 [facility] Comment on above: Performed By: #### C BC #### [facility] [address] [address] [address] Carolina Nam PROF 14(COMP METB)on 023 Albumin [Mass/Vol] 2.5 g/dL Critically low 3.4-5.0 [facility] Comment on above: Performed By: #### C MP ####[facility] [address] [address] Marybethmichael Cyril Albumin/Globulin [Mass ratio] 0.5 {ratio} Normal [facility] Comment on above: Performed By: #### C MP ####[facility] [address] [address]Dr[address] Carolina Cyril ALP [Catalytic activity/Vol] 132 U/L Critically high 46-116 [facility] Comment on above: Performed By: #### C MP ####[facility] [address] [address]Dr[address] Carolina Cyril ALT [Catalytic activity/Vol] 29 U/L Normal 16-63 [facility] Comment on above: Performed By: #### C MP ####[facility] [address] [place], [place] [address]Dr. Carolina Nam Anion gap [Moles/Vol] 10.9 mmol/L Normal [facility] Comment on above: Performed By: #### C MP ####[facility] [address] [place], [place] [address]Dr. Carolina Cyril AST [Catalytic activity/Vol] 19 U/L Normal 15-37 [facility] Comment on above: Performed By: #### C MP ####[facility] [address] [place], [place] [address]Dr. Carolina Nam Bilirubin [Mass/Vol] 0.7 mg/dL Normal 0.2-1.0 [facility] Comment on above: Performed By: #### C MP ####[facility] [address] [address]Dr[address] Carolina Nam Calcium [Mass/Vol] 9.7 mg/dL Normal 8.5-10.1 [facility] Comment on above: Performed By: #### C MP ####[facility] [address] [address]Dr[address] Carolina Nam Chloride [Moles/Vol] 99 mmol/L Normal 98-107 [facility] Comment on above: Performed By: #### C MP ####[facility] [address] [id number] Carolina Nam CO2 [Moles/Vol] 28.6 mmol/L Normal 21.0-32.0 [facility] Comment on above: Performed By: #### C MP ####[facility] [address] [id number] Carolina Nam Creatinine [Mass/Vol] 1.34 mg/dL Critically high 0.70-1.30 [facility] Comment on above: Performed By: #### C MP ####[facility] [address] [id number] Carolina Nam EGFR-AF FINNISH >60 Normal >=60 [facility] Comment on above: Performed By: #### C MP ####[facility] [address] [address]Dr[address] Carolina Nam EGFR-NON AF FINNISH 51 mL/min/1.73m2 Critically low >=60 [facility] Comment on above: Performed By: #### C MP ####[facility] [address] [address]Dr. Carolina Nam Globulin (S) [Mass/Vol] 5.2 g/dL Normal [facility] Comment on above: Performed By: #### C MP ####[facility] [address] [address]Dr. Carolina Nam Glucose [Mass/Vol] 110 mg/dL Critically high 74-106 [facility] Comment on above: Performed By: #### C MP ####[facility] [address] [phone] Carolina Nam Potassium [Moles/Vol] 4.5 mmol/L Normal 3.5-5.1 [facility] Comment on above: Performed By: #### C MP ####[facility] [address] [id number] Carolina Nam Protein [Mass/Vol] 7.7 g/dL Normal 6.4-8.2 [facility] Comment on above: Performed By: #### C MP ####[facility] [address] [place], [place] [address]Ed. Carolina Nam Sodium [Moles/Vol] 134 mmol/L Critically low 136-145 [facility] Comment on above: Performed By: #### C MP ####[facility] [address] [place], [place] [address]Kh. Carolina Nam Urea nitrogen [Mass/Vol] 23.0 mg/dL Critically high 7.0-18.0 [facility] Comment on above: Performed By: #### C MP ####[facility] [address] [place], [place] [address]J[address] Carolina Nam Urea nitrogen/Creatinine [Mass ratio] 17.2 mg/mg Normal [facility] Comment on above: Performed By: #### C MP ####[facility] [address] [place], [place] [address]Ra. Carolina Nam XR KUB 1 VIEWon 07-10-2022 XR KUB 1 VIEW EXAMINATION: XR KUB 1 VIEW HISTORY: Lower abdominal pain for one week; recent constipation COMPARISON: CT abdomen 12/21/2019 FINDINGS: BOWEL GAS PATTERN: Air-filled markedly distended loops of bowel within abdomen suspected represent represent the distal colon, with sigmoid colon distended up to 10.1 cm. Large amount of stool within proximal and and mid colon. CALCIFICATIONS: None significant. OTHER: Mechanical fusion and posterior decompression of lumbar spine. IMPRESSION: 1. Markedly distended distal colon; distal obstruction versus chronic dilation. Consider CT abdomen and pelvis with IV and oral contrast for further evaluation. Study placed in the call folder for notification of provider. Electronically authenticated by: NITA VILLANUEVA Date: 2022-07-10 10:33 Normal [facility] XR CHEST 2 Von 07-09-2022 XR CHEST 2 V EXAM: XR CHEST 2 V HISTORY: Bronchitis COMPARISON: 08/22/21 TECHNIQUE: PA and lateral views of the chest. FINDINGS: The cardiomediastinal silhouette is enlarged. Patchy airspace disease. There is no pneumothorax. No pleural effusion is noted. The osseous structures are intact. IMPRESSION: Patchy airspace disease. Electronically authenticated by: ARTURO PETERSON Date: 2022-07-09 13:02 Normal [facility] CBC AUTO DIFFon 02-22-2023 BASO # 0.1 103/ul Normal 0.0-0.1 [facility] Comment on above: Performed By: #### C BC #### [facility] [address] [address] [address] Carolina Nam Basophils/100 WBC (Bld) 0.9 % Normal 0.2-2.0 [facility] Comment on above: Performed By: #### C BC #### [facility] [address] [address] [address] Carolina Nam EO # 0.1 103/ul Normal 0.0-0.7 [facility] Comment on above: Performed By: #### C BC #### [facility] [address] [place] [address] Dr. Carolina Nam Eosinophils/100 WBC (Bld) 1.9 % Normal 0.9-7.0 [facility] Comment on above: Performed By: #### C BC #### [facility] [address] [place] [address] Dr. Carolina Nam Erythrocyte distribution width (RBC) [Ratio] 13.6 % Normal 11.0-15.0 [facility] Comment on above: Performed By: #### C BC #### [facility] [address] [place] [address] Dr. Carolina Nam Hematocrit (Bld) [Volume fraction] 40.1 % Critically low 42.0-54.0 [facility] Comment on above: Performed By: #### C BC #### [facility] [address] [place] [address] Dr. Carolina Nam Hemoglobin (Bld) [Mass/Vol] 12.7 g/dL Critically low 14.0-18.0 [facility] Comment on above: Performed By: #### C BC #### [facility] [address] [place] [address] Dr. Carolina Nam IG # 0.02 10e3/ul Normal 0.00-0.03 [facility] Comment on above: Performed By: #### C BC #### [facility] [address] [place] [address] Dr. Carolina Nam IG % 0.4 % Normal 0.0-0.5 [facility] Comment on above: Performed By: #### C BC #### [facility] [address] [place] [address] Dr. Carolina Nam LYMPH # 1.2 103/ul Normal 1.2-3.8 [facility] Comment on above: Performed By: #### C BC #### [facility] [address] [place] [address] Dr. Carolina Nam Lymphocytes/100 WBC (Bld) 21.5 % Normal 20.5-60.0 [facility] Comment on above: Performed By: #### C BC #### [facility] [address] [place] [address] Dr. Carolina Nam MANUAL DIFF REQ NO Normal [facility] Comment on above: Performed By: #### C BC #### [facility] [address] [place] [address] Dr. Carolina Nam MCH (RBC) [Entitic mass] 30.0 pg Normal 25.9-34.0 [facility] Comment on above: Performed By: #### C BC #### [facility] [address] [place] [address] Dr. Carolina Nam MCHC (RBC) [Mass/Vol] 31.7 g/dL Normal 29.9-35.2 [facility] Comment on above: Performed By: #### C BC #### [facility] [address] [place] [address] Dr. Carolina Nam MCV (RBC) [Entitic vol] 94.6 fL Critically high 80.0-94.0 [facility] Comment on above: Performed By: #### C BC #### [facility] [address] [place] [address] Dr. Carolina Nam MONO # 0.6 103/ul Normal 0.3-0.8 [facility] Comment on above: Performed By: #### C BC #### [facility] [address] [place] [address] Dr. Carolina Nam Monocytes/100 WBC (Bld) 11.3 % Normal 1.7-12.0 [facility] Comment on above: Performed By: #### C BC #### [facility] [address] [place] [address] Dr. Carolina Nam NEUT # 3.6 103/ul Normal 1.4-6.5 [facility] Comment on above: Performed By: #### C BC #### [facility] [address] [place] [address] Dr. Carolina Nam Neutrophils/100 WBC (Bld) 64.0 % Normal 43.0-75.0 [facility] Comment on above: Performed By: #### C BC #### [facility] [address] [place] [address] Dr. Carolina Nam Platelet mean volume (Bld) [Entitic vol] 9.4 fL Critically low 9.5-13.5 [facility] Comment on above: Performed By: #### C BC #### [facility] [address] [place] [address] Dr. Carolina Nam PLT 234 103/ul Normal 150-450 [facility] Comment on above: Performed By: #### C BC #### [facility] [address] [place], [place] [address] Dr. Carolina Nam RBC 4.24 106/ul Critically low 4.70-6.10 [facility] Comment on above: Performed By: #### C BC #### [facility] [address] [place] [address] Dr. Carolina Nam WBC 5.7 103/ul Normal 4.0-11.0 [facility] Comment on above: Performed By: #### C BC #### [facility] [address] [place] [address] Dr. Carolina Nam LIPID PROFILEon 05-22-2022 CHOL-HDL RATIO NORM SEE BELOW Normal [facility] Comment on above: Result Comment: 3.3 - 4.4 LOW RISK 4.4 - 7.1 AVERAGE RISK 7.1 - 11.0 MODERATE RISK >11.0 HIGH RISK Performed By: #### L IPID, CMP #### [facility] [address] [address] [address] Carolina Nam Cholesterol [Mass/Vol] 193 mg/dL Normal <=200 [facility] Comment on above: Performed By: #### L IPID, CMP #### [facility] [address] [address] [address] Carolina Nam Cholesterol in HDL [Mass/Vol] 52 mg/dL Normal 40-60 [facility] Comment on above: Performed By: #### L IPID, CMP #### [facility] [address] [address] [address] Carolina Nam Cholesterol in LDL [Mass/Vol] 126.8 mg/dL Normal [facility] Comment on above: Performed By: #### L IPID, CMP #### [facility] [address] [address] [address] Carolina Nam Cholesterol.total/Chol esterol in HDL [Mass ratio] 3.7 {ratio} Normal [facility] Comment on above: Performed By: #### L IPID, CMP #### [facility] [address] [address] [address] Carolina Nam HDL NORMAL > or = 60 mg/dl - LO W CARDIOVASCULAR RISK <40 mg/dl - HIGH CARDIOVASCULAR RISK Normal [facility] Comment on above: Performed By: #### L IPID, CMP #### [facility] [address] [address] [address] Carolina Nam LDL CALC NORMAL SEE BELOW Normal [facility] Comment on above: Result Comment: <100 mg/dl OPTIMAL 100 - 129 mg/dl NEAR OR ABOVE OPTIMAL 130 - 159 mg/dl BORDERLINE HIGH 160 - 189 mg/dl HIGH >190 mg/dl VERY HIGH Performed By: #### L IPID, CMP #### [facility] [address] [address] [address] Carolina Nam Triglyceride [Mass/Vol] 71 mg/dL Normal <=150 [facility] Comment on above: Performed By: #### L IPID, CMP #### [facility] [address] [address] [address] Carolina Nam VLDL CALC 14.2 mg/dL Normal [facility] Comment on above: Performed By: #### L IPID, CMP #### [facility] [address] [address] [address] Carolina Nam PROF 14(COMP METB)on 023 Albumin [Mass/Vol] 3.6 g/dL Normal 3.4-5.0 [facility] Comment on above: Performed By: #### L IPID, CMP #### [facility] [address] [address] [address] Carolina Nam Albumin/Globulin [Mass ratio] 0.9 {ratio} Normal [facility] Comment on above: Performed By: #### L IPID, CMP #### [facility] [address] [place] [address] Dr. Carolina Nam ALP [Catalytic activity/Vol] 124 U/L Critically high 46-116 [facility] Comment on above: Performed By: #### L IPID, CMP #### [facility] [address] [place] [address] Dr. Carolina Nam ALT [Catalytic activity/Vol] 24 U/L Normal 16-63 [facility] Comment on above: Performed By: #### L IPID, CMP #### [facility] [address] [place] [address] Dr. Carolina Nam Anion gap [Moles/Vol] 9.5 mmol/L Normal [facility] Comment on above: Performed By: #### L IPID, CMP #### [facility] [address] [place] [address] Dr. Carolina Nam AST [Catalytic activity/Vol] 22 U/L Normal 15-37 [facility] Comment on above: Performed By: #### L IPID, CMP #### [facility] [address] [place] [address] Dr. Carolina Nam Bilirubin [Mass/Vol] 0.6 mg/dL Normal 0.2-1.0 [facility] Comment on above: Performed By: #### L IPID, CMP #### [facility] [address] [place] [address] Dr. Carolina Nam Calcium [Mass/Vol] 9.5 mg/dL Normal 8.5-10.1 [facility] Comment on above: Performed By: #### L IPID, CMP #### [facility] [address] [place] [address] Dr. Carolina Nam Chloride [Moles/Vol] 104 mmol/L Normal 98-107 [facility] Comment on above: Performed By: #### L IPID, CMP #### [facility] [address] [address] [address] Carolina Nam CO2 [Moles/Vol] 28.9 mmol/L Normal 21.0-32.0 [facility] Comment on above: Performed By: #### L IPID, CMP #### [facility] [address] [place] [address] Dr. Carolina Nam Creatinine [Mass/Vol] 1.17 mg/dL Normal 0.70-1.30 [facility] Comment on above: Performed By: #### L IPID, CMP #### [facility] [address] [place] [address] Dr. Carolina Nam EGFR-AF FINNISH >60 Normal >=60 [facility] Comment on above: Performed By: #### L IPID, CMP #### [facility] [address] [place] [address] Dr. Carolina Nam EGFR-NON AF FINNISH =60 Normal >=60 [facility] Comment on above: Performed By: #### L IPID, CMP #### [facility] [address] [place] [address] Dr. Carolina Nam Globulin (S) [Mass/Vol] 4.1 g/dL Normal [facility] Comment on above: Performed By: #### L IPID, CMP #### [facility] [address] [place] [address] Dr. Carolina Nam Glucose [Mass/Vol] 92 mg/dL Normal 74-106 [facility] Comment on above: Performed By: #### L IPID, CMP #### [facility] [address] [place] [address] Dr. Carolina Nam Potassium [Moles/Vol] 4.4 mmol/L Normal 3.5-5.1 [facility] Comment on above: Performed By: #### L IPID, CMP #### [facility] [address] [place] [address] Dr. Carolina Nam Protein [Mass/Vol] 7.7 g/dL Normal 6.4-8.2 [facility] Comment on above: Performed By: #### L IPID, CMP #### [facility] [address] [place] [address] Dr. Carolina Nam Sodium [Moles/Vol] 138 mmol/L Normal 136-145 [facility] Comment on above: Performed By: #### L IPID, CMP #### [facility] [address] [place] [address] Dr. Carolina Nam Urea nitrogen [Mass/Vol] 21.0 mg/dL Critically high 7.0-18.0 [facility] Comment on above: Performed By: #### L IPID, CMP #### [facility] [address] [place] [address] Dr. Carolina Nam Urea nitrogen/Creatinine [Mass ratio] 17.9 mg/mg Normal [facility] Comment on above: Performed By: #### L IPID, CMP #### [facility] [address] [place] [address] Dr. Carolina Nam COVID-19, Rapidon 12-06-2021 SARS-CoV-2 (COVID-19) RNA NAY+probe Ql (Unsp spec) Not detected Not Detected [facility] Comment on above: Rapid NAAT: The specimen is NEGATIVE for SARS-CoV-2, the novel coronavirus associated with COVID-19. The ID NOW COVID-19 assay is designed to detect the virus that causes COVID-19 in patients with signs and symptoms of infection who are suspected of COVID-19. An individual without symptoms of COVID-19 and who is not shedding SARS-CoV-2 virus would expect to have a negative (not detected) result in this assay. Negative results should be treated as presumptive and, if inconsistent with clinical signs and symptoms or necessary for patient management, should be tested with an alternative molecular assay. Negative results do not preclude SARS-CoV-2 infection and should not be used as the sole basis for patient management decisions. Fact sheet for Healthcare Providers: https://www.fda.gov/media/151984/download Fact sheet for Patients: https://www.fda.gov/media/084031/download Methodology: Isothermal Nucleic Acid Amplification Specimen Description .NASOPHARYNGEAL SWAB [facility] 10-23-2021 L - -------- Specimen: [id number] Received: 10/23/21 Status: MARIA FERNANDA Sebastian Num: [id number] Spec Type: Surgical Subm Dr: Mik Amaya MD Tissues: A Esophagus Biopsy (ESOPHAGUS) Procedures: HE Stain/2, Gross/Micro L4 -------- Age/ Patient Sex Location Account Attending Physician -------- Bret Yap 81/M [id number] Mik Amaya MD -------- SPEC NUM: [id number] RECD: 10/23/21 STATUS: NORIYuriy KNOWLES NUM: [id number] YEIMI: 10/23/[address] [facility] [address]: Mik Amaya MD ENTERED: 10/23/[address] 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 Entirely submitted in one cassette labeled A1. (LG/JS) Microscopic Description Two glass slides with H E stained material have been examined. The microscopic findings support the above pathologic diagnosis. [id number] -------- -------- Specimen: [id number] Received: 10/23/21 Status: MARIA FERNANDA Knowles Num: [id number] Spec Type: Surgical Subm Dr: Mik Amaya MD Tissues: A Esophagus Biopsy (ESOPHAGUS) Procedures: HE Stain/2, Gross/Micro L4 -------- Patient: Bret Yap [id number] (Continued) -------- Signed (signature on file) Va Daugherty MD 10/24/21 1708 Normal [facility] COVID-19 [facility] SARS-CoV-2 (COVID-19) RNA NAY+probe Ql (Unsp spec) Negative Normal Negative [facility] Comment on above: Order Comment: Healt hcare Worker?: N Result Comment: Testing for SARS-CoV-2 by RT-PCR This test was developed and its performance characteristics determined by [employer] ([facility] [place]) and validated at the [facility]. This test has not been FDA cleared or approved. This test has been authorized by FDA under an Emergency Use Authorization (EUA). This test has been validated in accordance with the FDA's Guidance Document (Policy for Diagnostics Testing in Laboratories Certified to Perform High Complexity Testing under CLIA prior to Emergency Use Authorization for Coronavirus Disease-2019 during the Public Health Emergency) issued on July 01, 2019. This test is only authorized for the duration of time the declaration that circumstances exist justifying the authorization of the emergency use of in vitro diagnostic tests for detection of SARS-CoV-2 virus and/or diagnosis of COVID-19 infection under section 564(b)(1) of the Act, 21 U.S.C. 360bbb-3(b)(1), unless the authorization is terminated or revoked sooner. PERFORMED BY: [address] [place] [id number] PATHOLOGIST PROGRESSIVE ASSEMBLER AND FITTER VA DAUGHERTY M.D. Performed By: #### C OVID 19 [facility] #### [place] [id number] [facility] COVID-19 Positive/NegativeOr dered By: Mik Amaya on 10-19-2021 SARS-CoV-2 (COVID-19) N gene NAY+probe Ql (Resp) Negative Negative [facility] Comment on above: Testing for SARS-CoV -2 by RT-PCR This test was developed and its performance characteristics determined by [employer] ([facility] [place]) and validated at the [facility]. This test has not been FDA cleared or approved. This test has been authorized by FDA under an Emergency Use Authorization (EUA). This test has been validated in accordance with the FDA's Guidance Document (Policy for Diagnostics Testing in Laboratories Certified to Perform High Complexity Testing under CLIA prior to Emergency Use Authorization for Coronavirus Disease-2019 during the Public Health Emergency) issued on July 01, 2019. This test is only authorized for the duration of time the declaration that circumstances exist justifying the authorization of the emergency use of in vitro diagnostic tests for detection of SARS-CoV-2 virus and/or diagnosis of COVID-19 infection under section 564(b)(1) of the Act, 21 U.S.C. 360bbb-3(b)(1), unless the authorization is terminated or revoked sooner. WRIST RIGHT 2 [facility] 10-11-19 22 WRIST RIGHT 2 [facility] Department of Radiology [address] [place] [id number] Patient Name: BRET YAP : 1940 Sex: M Age: Race: White Pt. Location: Patient Status: D Ordered Date: 10/10/2021 2:15:00 PM Completed Date: 10/10/2021 02:19 PM Requesting Provider: ISRRAEL GREENE Attending Provider: ISRRAEL GREENE Report Copy To: Signs & Symptoms: M25.531 Pain in right wrist I10 History: Comments: Evaluate Exam: WRIST RIGHT 2 VWS WRIST RIGHT 2 VWS 10/10/2021 2:19 PM CLINICAL INDICATIONS: M25.531 Pain in right wrist I10 TECHNOLOGIST COMMENTS: right wrist surgery 07/16/21 follow up QUESTION FOR THE RADIOLOGIST: Evaluate PROTOCOL: AP(PA) and Lateral views were obtained. COMPARISON: 08/29/2021 FINDINGS: 2 views of the right wrist. 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 Single screw is seen transfixing the distal radius and ulna with distal right ulnar osteotomy seen and early new bone formation seen at the defect medially. There is severe joint space narrowing in the radiocarpal right wrist joint. There is also degenerative joint space narrowing in the scaphoid/trapezium/tr apezoid joints. 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 Right distal ulnar osteotomy with early periosteal reaction medially and hardware fixation of the distal radioulnar joint. Electronically signed: Mil Thakur. Transcribed by: [email or web address], User Resident: Electronically Signed by: MIL THAUKR @ 10/13/2021 03:52 PM Normal [facility] Comment on above: Order Comment: Evalu ate WRIST RIGHT 2 VWSon 08-30-19 22 WRIST RIGHT 2 S [facility] Department of Radiology [address] [place] [address] Patient Name: BRET YAP : 1940 Sex: M Age: Race: White Pt. Location: Patient Status: D Ordered Date: 08/29/2021 4:10:00 PM Completed Date: 08/29/2021 04:09 PM Requesting Provider: ISRRAEL GREENE Attending Provider: ISRRAEL GREENE Report Copy To: Signs & Symptoms: M25.531 Pain in right wrist I10 History: Lucrecia Comments: Evaluate Exam: WRIST RIGHT 2 [facility] WRIST RIGHT 2 [facility] 08/29/2021 4:09 PM CLINICAL INDICATIONS: M25.531 Pain in right wrist I10 TECHNOLOGIST COMMENTS: Patient complains of right wrist swelling, post op six weeks ago. QUESTION FOR THE RADIOLOGIST: Evaluate PROTOCOL: AP(PA) and Lateral views were obtained. COMPARISON: 07/16/2021, 07/03/2021. FINDINGS: Postsurgical changes of Quinten Kapandji procedure including removal of a portion of distal ulna. Ulnoradial syndesmotic screw without periprosthetic fracture or loosening. Severe radiolunate joint space narrowing with sclerosis. Interval decrease in joint space between the hamate and capitate carpal bones comparison to 07/03/2021. IMPRESSION: Postsurgical changes ofSauve Kapandji procedure with satisfactory gross alignment and no gross hardware failure. There are severe degenerative changes at the radiocarpal joint. Approved by:Herb James08/31/2021 1:31 PM. I, Sally Reddy,have reviewed the image(s) and agree with the findings in this report. Electronically signed: Sally Reddy. Transcribed by: [email or web address], User Resident: SALLY GALLAGHER Electronically Signed by: SALLY REDDY @ 08/31/2021 04:36 PM I personally read this/these film(s) with this resident Normal [facility] Comment on above: Order Comment: Evalu ate Covid-19 PCR (CVDTBH)on 07-30 SARS-CoV-2 (COVID-19) RNA NAY+probe Ql (Unsp spec) Not detected Normal NOT DETECTED [facility] Comment on above: Result Comment: This test is not yet approved or cleared by the [place] FDA. When there are no FDA-approved or cleared tests available, and other criteria are met, FDA can make tests available under an emergency access mechanism called an Emergency Use Authorization (EUA). The EUA for this test is supported by the Food Taster of Health and Human Service's (HHS's) declaration that circumstances exist to justify the emergency use of in vitro diagnostics for the detection and/or diagnosis of the virus that causes COVID-19. This EUA will remain in effect (meaning this test can be used) for the duration of the COVID-19 declaration justifying emergency of IVDs, unless it is terminated or revoked by FDA (after which the test may no longer be used). When diagnostic testing is negative, the possibility of a false negative should be considered in the context of a patient's recent exposures and the presence of clinical signs and symptoms consistent with SARS-CoV-2. Performed By: #### C [facility] #### [facility] [address] [place] [address] Dr. Carolina Nam XR CHEST 2 Von 08-22-2021 XR CHEST 2 V EXAMINATION: XR CHES T 2 V HISTORY: Dyspnea , cough COMPARISON: XR chest 10/20/2020 FINDINGS: LUNGS: Mild haziness and stranding within right lung base. Small dense nodule within the right midlung favoring a chronic granuloma. VASCULATURE: No increased pulmonary vasculature. PLEURA: Blunting of right posterior lateral costophrenic angles. CARDIAC: No cardiomegaly or cardiac silhouette abnormality. MEDIASTINUM: No visible mass or adenopathy. BONES: No fracture or visible bone lesion. OTHER: Negative. IMPRESSION: 1. Suspect small right pleural effusion and mild basilar atelectasis versus infiltrates. Findings not significantly changed compared to 10/20/2020. Electronically authenticated by: NITA VILLANUEVA Date: 2021-08-22 12:35 Normal [facility] Operative Reporton 2 Operative Report MR#: [id number] [facility] Pt. Name: Bret Yap Room #: 0C Discharge Date: Birthdate: 1940 OPERATIVE REPORT DATE OF SURGERY: 07/16/2021 SURGEON: Isrrael Greene M.D. 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 POSTOPERATIVE DIAGNOSIS: 1. 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 2. Suspicious skin lesion, dorsal hand. PROCEDURE: 1. Quinten-Kapandji procedure, right distal radioulnar joint. 2. Tendon transfer of extensor indicis proprius to the extensors of the long, ring, and small fingers. ATTRACTION WORKER: Kush Mccartney M.D. ANESTHESIA: Regional. INDICATION FOR SURGERY: The patient is an 81-year-old gentleman who presented to our [facility] with inability to extend the ring and small fingers of his right hand. 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 I felt that he was a candidate for Quinten-Kapandji procedure to address DRUJ arthritis, and then at that point, I had planned on doing a [id number] transfer of the ring and small tendons over to the extensor of the long. He told me in the preoperative area the following day after we saw all, all of the sudden, he could not extend the long finger. I talked to him about this in the preoperative area, and told him that the way to treat that would be with a transfer of the extensor indicis to those 3 tendons. This would not really change the procedure much at all nor would if affect his recovery or rehabilitation at all. The risks and benefits were explained prior to surgery, and with good understanding, it is agreed to proceed. NARRATION: The patient was brought to the operating room and placed on the table in the supine position. An axillary block had been administered per the Anesthesia Service. A tourniquet was placed around the proximal right arm. He was given preoperative antibiotics, and the right upper extremity was prepped and draped out in a sterile fashion. To begin the procedure, after standard time-out, the arm was exsanguinated with an Esmarch bandage and the tourniquet was inflated to 250 mmHg. Using a #15 blade, I made a curvilinear incision starting on the midline on the dorsum of the hand and wrist and extending ulnarly over the dorsum of the ulnar head as I come across the wrist crease. At this point, we noticed the suspicious lesion on the dorsum of the hand. It looks as though it may be a squamous cell cancer. I thought about incorporating it into our incision and excising, but thought better of that. At the end of the procedure, I did remove this lesion in an elliptical fashion, and send it to pathology just to make sure that it is nothing that needs to be addressed. The skin flaps were sharply elevated up. We immediately saw the ruptured ends of the long and ring extensor tendons. As I came ulnarly, I found the extensor digiti minimi stump. The 2 tendons going to the index finger still looked absolutely normal. There was some synovitis on the extensors on the ulnar side of the wrist that was debrided and cleaned up. Before addressing the tendons, we went over and did the Quinten-Kapandji procedure. We used the ulnar aspect of our proximal skin incision and exposed through what was the fifth extensor compartment, but now without a tendon, the ulnar head and ulnar neck. The bone on the ulnar head is extremely sclerotic. With the rongeur, we removed the articular surface and got down to healthy cancellous bone. With a Hohmann retractor and a Darcy rake, we exposed the sigmoid notch, and the radius and with a 4 mm oval bur, decorticated that as much as we could. We used a small K-wire and made multiple holes in the surface to promote some bleeding there. Next, we went down to the neck of the ulna and exposed that with a couple of wide mini Hohmanns. With an oscillating saw, we resected about a centimeter of bone just below the head of the ulna. There was a lot of cancellous bone, so I took that on the back table and removed all the cancellous bone. We started a guide pin for a 4 mm partially threaded cannulated screw. Before going to cross the DRUJ, we packed our cancellous bone graft into the joint, reduced the joint, and then advanced our guide pin to the other side of the radius. This measured about 44 mm. There was still a gap in the distal radioulnar joint, so I elected to go with a 36 mm screw. I put another 0.062 K-wire across the distal radioulnar joint, just distal to where the screw is going to be to prevent the head from rotating while we put our cannulated screw in. The cannulated screw was advanced. Before seating it fully, I just used a K-wire d (more content not included)... Normal [facility] POC GLUCOSE LABon 07-16-2021 Glucose [Mass/Vol] 93 mg/dL Normal 70-100 [facility] Comment on above: Performed By: #### [id number] #### [facility] [address] [place] POC SARS COV2 IDon 2 SARS-CoV-2 (COVID-19) RNA NAY+probe Ql (Unsp spec) Negative Normal NEGATIVE [facility] Comment on above: Result Comment: ID N OW COVID-19 assay performed on the ID NOW Instrument is a rapid molecular in vitro diagnostic test utilizing an isothermal nucleic acid amplification technology intended for the qualitative detection of nucleic acid from the SARS-CoV-2 virus in direct anterior nasal (nasal), nasopharyngeal or throat swabs from individuals who are suspected of COVID-19 by their healthcare provider within the first seven days of the onset of symptoms. Testing is limited to laboratories certified under the Clinical Laboratory Improvement Amendments of 1988 (CLIA), 42 U.S.C. ???263a,that meet the requirements to perform high, moderate, or waived complexity tests. The ID NOW COVID-19 assay is also authorized for use at the Point of Care (POC), i.e., in patient care settings operating under a CLIA Certificate of Waiver, Certificate of Compliance, or Certificate of Accreditation. Performed By: #### 3 1921 #### [address] WRIST RIGHT 2 [facility] 07-17-19 22 WRIST RIGHT 2 [facility] Department of Radiology [address] [place] [id number] Patient Name: BRET YAP : 1940 Sex: M Age: Race: White Pt. Location: OUTP Patient Status: O Ordered Date: 07/16/2021 8:25:00 AM Completed Date: 07/16/2021 09:10 AM Requesting Provider: ISRRAEL GREENE Attending Provider: ISRRAEL GREENE Report Copy To: Signs & Symptoms: Intra-op fluoro. Right wrist suave kapundji procedure History: Intra-op fluoro. Right wrist suave kapundji procedure Comments: Intra-op fluoro. Right wrist suave kapundji procedure Exam: WRIST RIGHT 2 [facility] WRIST RIGHT 2 S 07/16/2021 9:10 AM CLINICAL INDICATIONS: Intra-op fluoro. Right wrist suave kapundji procedure TECHNOLOGIST COMMENTS: Intra-op fluoro. Right wrist suave kapundji procedure Dr. Greene used 8 seconds of fluoro time dose=0.07 mGy 3 images sent to PACS QUESTION FOR THE RADIOLOGIST: Intra-op fluoro. Right wrist suave kapundji procedure PROTOCOL: AP(PA) and Lateral views were obtained. IMPRESSION: 4 spot images were submitted from the procedure Images show localization of the wrist and distal forearm looks like osteotomy defect in the distal ulna and screws placed at the distal radial ulnar joint with chronic bone remodeling Please refer to the detailed surgical note Electronically signed: Kierra Rosales. Transcribed by: [email or web address], User Resident: Electronically Signed by: KIERRA ROSALES @ 07/16/2021 10:16 AM Normal [facility] Comment on above: Order Comment: Intra -op fluoro. Right wrist suave kapundji procedure Pankaj 07-13-2021 SHIRIN Telephone ([place]) BRET YAP ([id number]) 1940 M Date Time Provider Department 07/13/21 KETAN MANZANARES During your visit today, we recorded the following information about you: Sunshine Riddle RN 07/13/2021 3:16 PM Signed Pt calls and leaves a voicemail stating he isn't able to get in with a local GI doctor until late August and is asking if this is okay. Reviewed previous telephone encounter and Dr Manzanares is ok with this. Pt notified. Sunshine Riddle RN Allergies As of Date: 07/13/2021 Noted Allergy Reaction BACTRIM (SULFAMETHOXAZOLE-TRI METH*06/27/2021 16 - Unknown INDOCIN (INDOMETHACIN) 06/27/2021 16 - Unknown Date Reviewed: 07/02/2021 Reviewed by: Jennifer Tucker - Fully Assessed Reason for Visit: Care Coordination [8991] Cmt: appointment question Prescriptions as of 07/13/2021 - ferrous sulfate 325 mg (65 mg iron) tablet Take 325 mg by mouth. - Omeprazole Magnesium 20 mg tablet Take 20 mg by mouth. - spironolactone (ALDACTONE) 25 mg tablet Take 1 tablet by mouth once daily. - CALCIUM ORAL Take by mouth. - esomeprazole (NEXIUM) 20 mg capsule Take 20 mg by mouth DAILY (6 AM). - rivaroxaban (XARELTO) 20 mg tablet Take 20 mg by mouth daily with dinner. - allopurinol (ZYLOPRIM) 300 mg tablet Take 300 mg by mouth once daily. - meloxicam (MOBIC) 15 mg tablet Take 15 mg by mouth once daily. - furosemide (LASIX) 20 mg tablet Take 20 mg by mouth once daily. - fluticasone/umeclidin /vilanter (TRELEGY ELLIPTA INHALATION) Inhale as instructed. Problem List As Of Date: 07/13/2021 (None) Encounter Status:Closed by SUNSHINE RIDDLE on 07/13/21 [facility] Pankaj 07-06-2021 CNPN Telephone ([place]MASA) BRET YAP ([id number]) 1940 M Date Time Provider Department 07/06/21 RUBEN TELLEZ During your visit today, we recorded the following information about you: Ruben Tellez RN 07/06/2021 1:34 PM Signed Received message from pt wanting to know lab results and if colonoscopy was still needed. SJK: Any message for pt regarding lab results? Proceed with GI referral? GREGORIO Gomez MD 07/06/2021 2:05 PM Signed Please proceed with GI referral for scopes. His other labs for anemia were negative. He has MGUS as well that I discussed with him at last visit. Happy to talk to him again when he comes for a follow up on 07-17-21. Thanks, SJK Ruben Tellez RN 07/06/2021 2:51 PM Signed Returned call to pt. No answer. Left message informing pt of Dr Manzanares's response and to return call if any questions/concerns. GREGORIO Gomez RN 07/06/2021 4:29 PM Signed SJK: Pt is not able to get in to see GI until end august. He would like to know if that's ok or if he needs to try somewhere else. GREGORIO Gomez MD 07/06/2021 4:55 PM Signed August is fine. No worries. Thanks, SJK Ruben Tellez RN 07/09/2021 9:44 AM Signed Informed pt of Dr Manzanares's response. Pt verbalized understanding and states he is having hand surgery on 07/16 so he wants to cancel his f/u appt with SJK on 07/17 and reschedule at a later date. PSS: Please cancel pt's appt on 07/17. Pt will call back to reschedule after his surgery. Thank you. GREGORIO Gomez Sec 07/09/2021 9:46 AM Signed cxed patients appts Allergies As of Date: 07/06/2021 Noted Allergy Reaction BACTRIM (SULFAMETHOXAZOLE-TRI METH*06/27/2021 16 - Unknown INDOCIN (INDOMETHACIN) 06/27/2021 16 - Unknown Date Reviewed: 07/02/2021 Reviewed by: Jenniefr Tucker - Fully Assessed Reason for Visit: Results [95] Prescriptions as of 07/09/2021 - ferrous sulfate 325 mg (65 mg iron) tablet Take 325 mg by mouth. - Omeprazole Magnesium 20 mg tablet Take 20 mg by mouth. - spironolactone (ALDACTONE) 25 mg tablet Take 1 tablet by mouth once daily. - CALCIUM ORAL Take by mouth. - esomeprazole (NEXIUM) 20 mg capsule Take 20 mg by mouth DAILY (6 AM). - rivaroxaban (XARELTO) 20 mg tablet Take 20 mg by mouth daily with dinner. - allopurinol (ZYLOPRIM) 300 mg tablet Take 300 mg by mouth once daily. - meloxicam (MOBIC) 15 mg tablet Take 15 mg by mouth once daily. - furosemide (LASIX) 20 mg tablet Take 20 mg by mouth once daily. - fluticasone/umeclidin /vilanter (TRELEGY ELLIPTA INHALATION) Inhale as instructed. Problem List As Of Date: 07/06/2021 (None) Encounter Status:Closed by RUBEN TELLEZ on 07/06/21 Normal [facility] WRIST RIGHT 2 VWSon 07-04-19 22 WRIST RIGHT 2 V[facility] Department of Radiology [address] [place] [id number] Patient Name: BRET YAP : 1940 Sex: M Age: Race: White Pt. Location: 85 Patient Status: D Ordered Date: 07/03/2021 11:10:00 AM Completed Date: 07/03/2021 11:14 AM Requesting Provider: MELINA GRIGGS Attending Provider: TRES PAZ Report Copy To: SELF, REFERRED Signs & Symptoms: M25.531 Pain in right wrist I10 History: [place] Comments: Exam: WRIST RIGHT 2 S WRIST RIGHT 2 S 07/03/2021 11:14 AM CLINICAL INDICATIONS: M25.531 Pain in right wrist I10 TECHNOLOGIST COMMENTS: Patient states right wrist pain, and decreased range of motion in right fourth and fifth digits. Patient said he reached for staple gun two weeks ago and sudden pain and decreased rom. PROTOCOL: AP(PA) and Lateral views were obtained. COMPARISON: None FINDINGS: Chronic severe distal radioulnar joint space narrowing with chronic remodeling of the joint and impaction of the lateral aspect of distal ulna on the distal radius with surrounding sclerosis and associated slight lateral deviation of the distal ulna. Severe radial carpal joint space narrowing at the radial lunate joint with remodeling and flattening of the proximal lunate. Degenerative change of the triscaphe. No discrete fracture. 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 Electronically signed: Nestor Bonilla. Transcribed by: [email or web address], User Resident: Electronically Signed by: NESTOR BONILLA @ 07/05/2021 09:46 AM Normal [facility] CBC W Auto Differential pane l (Bld)on 07-02-2021 Basophils (Bld) [#/Vol] 0.07 10*3/uL Normal <0.11 [facility] Comment on above: Order Comment: Victorino khan Type: BLOOD SPECIMEN Ordering Facility: [facility] Address: [address] [place] [address] Performed By: #### 1 5061-5 #### [facility] CLIA [id number] [address] [place] [address] [place] Basophils/100 WBC (Bld) 1.0 % Normal [facility] Comment on above: Order Comment: Victorino khan Type: BLOOD SPECIMEN Ordering Facility: [facility] Address: [address] [place] [address] Performed By: #### 1 5061-5 #### [facility] CLIA [id number] [address] [place] [address] [place] Differential cell count method Nom (Bld) Auto Normal [facility] Comment on above: Order Comment: Bucki men Type: BLOOD SPECIMEN Ordering Facility: [facility] Address: [address] [place] [address] Performed By: #### 1 5061-5 #### [facility] CLIA [id number] [address] [place] [address] [place] Eosinophils (Bld) [#/Vol] 0.09 10*3/uL Normal <0.46 [facility] Comment on above: Order Comment: Speci men Type: BLOOD SPECIMEN Ordering Facility: [facility] Address: [address] [place], [place] [id number] Performed By: #### 1 5061-5 #### [facility] CLIA [id number] [address] [place] [address] [place] Eosinophils/100 WBC (Bld) 1.3 % Normal [facility] Comment on above: Order Comment: Speci men Type: BLOOD SPECIMEN Ordering Facility: [facility] Address: [address] [place], [place] [id number] Performed By: #### 1 5061-5 #### [facility] CLIA [id number] [address] [place] [address] [place] Erythrocyte distribution width (RBC) [Ratio] 13.7 % Normal 11.5-15.0 [facility] Comment on above: Order Comment: Speci men Type: BLOOD SPECIMEN Ordering Facility: [facility] Address: [address] [place], [place] [phone] Performed By: #### 1 5061-5 #### [facility] CLIA [id number] [address] [place] [address] [place] Hematocrit (Bld) [Volume fraction] 42.3 % Normal 39.0-51.0 [facility] Comment on above: Order Comment: Speci men Type: BLOOD SPECIMEN Ordering Facility: [facility] Address: [address] [place], [place] [id number] Performed By: #### 1 5061-5 #### [facility] CLIA [id number] [address] [place] [address] [place] Hemoglobin (Bld) [Mass/Vol] 13.1 g/dL Normal 13.0-17.0 [facility] Comment on above: Order Comment: Speci men Type: BLOOD SPECIMEN Ordering Facility: [facility] Address: [address] [place], [place] [id number] Performed By: #### 1 5061-5 #### [facility] CLIA [id number] [address] [place] [address] [place] IMMATURE GRAN % 0.3 % Normal [facility] Comment on above: Order Comment: Speci men Type: BLOOD SPECIMEN Ordering Facility: [facility] Address: [address] [place] [address] Performed By: #### 1 5061-5 #### [facility] CLIA [id number] [address] [place] [address] [place] [facility] IMMATURE GRAN ABS <0.03 Normal <0.10 [facility] Comment on above: Order Comment: Speci men Type: BLOOD SPECIMEN Ordering Facility: [facility] Address: [address] [place] [address] Performed By: #### 1 5061-5 #### [facility] CLIA [id number] [address] [place] [address] [place] Lymphocytes (Bld) [#/Vol] 1.39 10*3/uL Normal 1.00-4.00 [facility] Comment on above: Order Comment: Speci men Type: BLOOD SPECIMEN Ordering Facility: [facility] Address: [address] [place] [address] Performed By: #### 1 5061-5 #### [facility] CLIA [id number] [address] [place] [address] [place] Lymphocytes/100 WBC (Bld) 20.5 % Normal [facility] Comment on above: Order Comment: Speci men Type: BLOOD SPECIMEN Ordering Facility: [facility] Address: [address] [place] [address] Performed By: #### 1 5061-5 #### [facility] CLIA [id number] [address] [place] [address] [place] MCH (RBC) [Entitic mass] 29.8 pg Normal 26.0-34.0 [facility] Comment on above: Order Comment: Speci men Type: BLOOD SPECIMEN Ordering Facility: [facility] Address: [address] [place], [place] [phone] Performed By: #### 1 5061-5 #### [facility] CLIA [id number] [address] [place] [address] [place] MCHC (RBC) [Mass/Vol] 31.0 g/dL Normal 30.5-36.0 [facility] Comment on above: Order Comment: Speci men Type: BLOOD SPECIMEN Ordering Facility: [facility] Address: [address] [place], [place] [phone] Performed By: #### 1 5061-5 #### [facility] CLIA [id number] [address] [place] [address] [place] MCV (RBC) [Entitic vol] 96.4 fL Normal 80.0-100.0 [facility] Comment on above: Order Comment: Speci men Type: BLOOD SPECIMEN Ordering Facility: [facility] Address: [address] [place], [place] [phone] Performed By: #### 1 5061-5 #### [facility] CLIA [id number] [address] [place] [address] [place] Monocytes (Bld) [#/Vol] 0.97 10*3/uL High <0.87 [facility] Comment on above: Order Comment: Speci men Type: BLOOD SPECIMEN Ordering Facility: [facility] Address: [address] [place], [place] [phone] Performed By: #### 1 5061-5 #### [facility] CLIA [id number] [address] [place] [address] [place] Monocytes/100 WBC (Bld) 14.3 % Normal [facility] Comment on above: Order Comment: Speci men Type: BLOOD SPECIMEN Ordering Facility: [facility] Address: [address] [place], [place] [phone] Performed By: #### 1 5061-5 #### [facility] CLIA [id number] [address] [place] [address] [place] Neutrophils (Bld) [#/Vol] 4.23 10*3/uL Normal 1.45-7.50 [facility] Comment on above: Order Comment: Speci men Type: BLOOD SPECIMEN Ordering Facility: [facility] Address: [address] [place] [address] Performed By: #### 1 5061-5 #### [facility] CLIA [id number] [address] [place] [address] [place] Neutrophils/100 WBC (Bld) 62.6 % Normal [facility] Comment on above: Order Comment: Speci men Type: BLOOD SPECIMEN Ordering Facility: [facility] Address: [address] [place], [place] [id number] Performed By: #### 1 5061-5 #### [facility] CLIA [id number] [address] [place] [address] [place] Nucleated RBC (Bld) [#/Vol] 10*3/uL Normal <0.01 [facility] Comment on above: Order Comment: Speci men Type: BLOOD SPECIMEN Ordering Facility: [facility] Address: [address] [place] [address] Performed By: #### 1 5061-5 #### [facility] CLIA [id number] [address] [place] [address] [place] Nucleated RBC/100 WBC (Bld) [Ratio] 0.0 /100 WBC Normal [facility] Comment on above: Order Comment: Speci men Type: BLOOD SPECIMEN Ordering Facility: [facility] Address: [address] [place] [address] Performed By: #### 1 5061-5 #### [facility] CLIA [id number] [address] [place] [address] [place] Platelet mean volume (Bld) [Entitic vol] 9.4 fL Normal 9.0-12.7 [facility] Comment on above: Order Comment: Speci men Type: BLOOD SPECIMEN Ordering Facility: [facility] Address: [address] [place] [address] Performed By: #### 1 5061-5 #### [facility] CLIA [id number] [address] [place] [address] [place] Platelets (Bld) [#/Vol] 232 10*3/uL Normal 150-400 [facility] Comment on above: Order Comment: Speci men Type: BLOOD SPECIMEN Ordering Facility: [facility] Address: [address] [place] [address] Performed By: #### 1 5061-5 #### [facility] CLIA [id number] [address] [place] [address] [place] RBC (Bld) [#/Vol] 4.39 10*6/uL Normal 4.20-6.00 [facility] Comment on above: Order Comment: Speci men Type: BLOOD SPECIMEN Ordering Facility: [facility] Address: [address] [place], [place] [address] Performed By: #### 1 5061-5 #### [facility] CLIA [id number] [address] [place] [address] [place] WBC (Bld) [#/Vol] 6.77 10*3/uL Normal 3.70-11.00 [facility] Comment on above: Order Comment: Speci men Type: BLOOD SPECIMEN Ordering Facility: [facility] Address: [address] [place], [place] [address] Performed By: #### 1 5061-5 #### [facility] CLIA [id number] [address] [place] [address] [place] Abs Immature Gran <0.03 <0.10 k/uL [facility] Basophils (Bld) [#/Vol] 0.07 10*3/uL <0.11 k/uL [facility] Basophils/100 WBC (Bld) 1.0 % [facility] Differential cell count method Nom (Bld) Auto [facility] Eosinophils (Bld) [#/Vol] 0.09 10*3/uL <0.46 k/uL [facility] Eosinophils/100 WBC (Bld) 1.3 % [facility] Erythrocyte distribution width (RBC) [Ratio] 13.7 % 11.5 - 15.0 % [facility] Hematocrit (Bld) [Volume fraction] 42.3 % 39.0 - 51.0 % [facility] Hemoglobin (Bld) [Mass/Vol] 13.1 g/dL 13.0 - 17.0 g/dL [facility] Immature Gran % 0.3 % [facility] Lymphocytes (Bld) [#/Vol] 1.39 10*3/uL 1.00 - 4.00 k/uL [facility] Lymphocytes/100 WBC (Bld) 20.5 % [facility] MCH (RBC) [Entitic mass] 29.8 pg 26.0 - 34.0 pg [facility] MCHC (RBC) [Mass/Vol] 31.0 g/dL 30.5 - 36.0 g/dL [facility] MCV (RBC) [Entitic vol] 96.4 fL 80.0 - 100.0 fL [facility] Monocytes (Bld) [#/Vol] 0.97 10*3/uL High <0.87 k/uL [facility] Monocytes/100 WBC (Bld) 14.3 % [facility] Neutrophils (Bld) [#/Vol] 4.23 10*3/uL 1.45 - 7.50 k/uL [facility] Neutrophils/100 WBC (Bld) 62.6 % [facility] Nucleated RBC (Bld) [#/Vol] 10*3/uL <0.01 k/uL [facility] Nucleated RBC/100 WBC (Bld) [Ratio] 0.0 /100 WBC [facility] Platelet mean volume (Bld) [Entitic vol] 9.4 fL 9.0 - 12.7 fL [facility] Platelets (Bld) [#/Vol] 232 10*3/uL 150 - 400 k/uL [facility] RBC (Bld) [#/Vol] 4.39 10*6/uL 4.20 - 6.0 0 m/uL [facility] WBC (Bld) [#/Vol] 6.77 10*3/uL 3.70 - 11. 00 k/uL [facility] CNOVSPon 07-02-2021 CNOVSP Visit (SP) Office ([place]) BRET YAP ([id number]) 1940 M Date Time Provider Department 07/02/21 11:00 AM KETAN MANZANARES During your visit today, we recorded the following information about you: Temperature Pulse Respiration Blood pressure 97.2 degrees 65/minute 16/minute 134/64 Weight Height 94.7 kg 1.9 m Ketan Manzanares MD 07/02/2021 12:15 PM Signed HEMATOLOGY INITIAL CONSULTATION July 02, 2021 REFERRAL REQUESTED BY: Faizan Bragg PCP and other physicians involved in patient's care: Faizan Bragg (PCP) REASON FOR CONSULTATION: Anemia HEMATOLOGICAL HISTORY: ? No previous hematological evaluation. No previous transfusion history. Family history noncontributory. Previous colonoscopies in 2006, 2011 and 2016 with evidence of polyp that was removed. EGD in 2014 showed Alvares's esophagus. Pertinent medications of interest include meloxicam (historical; took in 2020) , allopurinol and rivaroxaban. ? September 2020, hemoglobin 10.1 g/dL with MCV 90. Ferritin in November 2020 was 40 with low iron saturation. Patient was started on oral iron with normalization of hemoglobin. ? 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 Overall, the patient feels well and is asymptomatic. He does not endorse any complaints today. He has been on oral iron for the last 6 months that was started for iron deficiency anemia . In September 2020, hemoglobin was 10.1 g/dL with normal WBC and platelets. MCV was 90. Nutritional work-up in November 2020 showed normal B12 and folate, ferritin 40, iron 48, TIBC 374, saturation 13%. Sometime around this time, patient was started on oral iron with improvement in hemoglobin. Patient does not recollect being symptomatic secondary to anemia. He denies any side effects with use of oral iron. He denies any evidence of debbie GI or bleeding. No reports of melena. He does have a history of Alvares's esophagus and occasional heartburn for which she takes a PPI. He previously used meloxicam for chronic low back pain in 2020 but cannot recollect when he stopped it. Last colonoscopy in 2016 and EGD in 2014. 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 Patient reports no fevers, chills, night sweats, weight loss or kidney issues. No pathological fractures. He had anemia which is resolving with oral iron supplementation. ROS is negative except that mentioned in HPI PAST MEDICAL SURGICAL FAMILY AND SOCIAL HISTORY: He has a medical history of ?Atrial fibrillation, on rivaroxaban ?Iron deficiency anemia ?Monoclonal gammopathy of undetermined significance ?Eczema ?Alvares's esophagus ?Gout ?Sciatica ?Right hip and right elbow bursitis ?Lung nodule Previous surgeries include right ankle repair, right shoulder repair, low back surgery, tonsillectomy and cataract extraction. Family history not contributory. No substance abuse. He lives with his in [place], [place] MEDICATIONS AND ALLERGIES: Reviewed PHYSICAL EXAM BP 134/64 Pulse 65 Temp 36.2 ?C (97.2 ?F) (Temporal) Resp 16 Ht 190 cm (6' 2.8 ) Wt 94.7 kg (208 lb 12.8 oz) SpO2 99% BMI 26.24 kg/m? Head atraumatic, no pallor, icterus or lymphadenopathy, lungs clear to auscultation, heart sounds regular, abdomen soft without distension or organomegaly, neuro grossly non-focal, skin without rash, extremities without swelling LABORATORY, IMAGING AND PATHOLOGY 10-20-20 CBC with WBC 7.1, hemoglobin 10.1, MCV 90, platelets 259 12-08-20 CBC with WBC 5.6, hemoglobin 10.4, MCV 94, platelets 208 Normal B12 and folate, ferritin 40, iron 48, TIBC 374, saturation 13% (Care Everywhere) IgG lambda MGUS, 0.24 g/dL (Care Everywhere) 05-21-21 CBC with WBC 6.9, hemoglobin 11.7, MCV 97, platelets 235 Creatinine 1.25, LFTs normal 06-12-21 CBC with WBC 5.9, hemoglobin 12.2, MCV 97, platelets 222 Ferritin 70, B12 559 ASSESSMENT AND RECOMMENDATIONS 81 male with iron deficiency anemia and MGUS ? Iron deficiency anemia: This was based on a hemoglobin of 10.1 g/dL in September 2020 and a ferritin of 40 in November 2020. Patient is on oral iron and CBC from today shows resolution of anemia. There is no evidence of debbie GI or bleeding. I recommend the patient to continue oral iron supplementation and see GI for scopes. Patient has a history of a colonic polyp and Alvares's esophagus that will need follow-up. Patient was also on meloxicam in 2020 for chronic low back pain that he does not take anymore. Other labs to complete the anemia work-up are in process. ? MGUS: This was based on IgG lambda clone of 0.24 g/dL notable in the serum from November 2020. No albuminuria. There is no evidence of creatinine elevation, bone pain or systemic symptoms. No clinical suspicion of monoclonal gammopathy of clin (more content not included)... Normal [facility] CNPNon 07-02-2021 CNPN Telephone ([facility]) BRET YAP ([id number]) 1940 M Date Time Provider Department 07/02/21 KETAN MANZANARES [facility] During your visit today, we recorded the following information about you: Jatinder Krause 07/02/2021 11:57 AM Signed See GI for scopes Patient would prefer to stay locally. Dominique/Ty: Can you please refer patient to [facility] Gasto? Thanks! Jatinder [facility] 07/02/2021 12:46 PM Signed Dominique: Information ready for you. Miranda [facility] Prabha [facility] 07/02/2021 1:06 PM Signed Records faxed. [facility] 07/04/2021 10:12 AM Signed Called Lili Swain spoke with Mary. She states she has not yet gone thru all of their faxes at this time and states for me to call back to check on status of this referral. [facility] 07/05/2021 2:13 PM Signed Called Lili Swain spoke with Mary. She states they have received referral and their logistics coordinator will be calling patient soon to schedule. [facility] 07/12/2021 1:49 PM Signed Called Lili Swain spoke with Whit. She states when they spoke with patient they are scheduling out to August and patient refused to schedule an appointment at this time. Whit states patient said he would call around to get in somewhere else. Per Whit their office will be calling patient back tomorrow regarding scheduling an appointment with their office. [facility] 07/16/2021 3:04 PM Signed Called Lili Swain spoke with Mary. She states they have patient scheduled with Dr Amaya on 10/04 @ 1:30. [facility] Allergies As of Date: 07/02/2021 Noted Allergy Reaction BACTRIM (SULFAMETHOXAZOLE-TRI METH*06/27/2021 16 - Unknown INDOCIN (INDOMETHACIN) 06/27/2021 16 - Unknown Date Reviewed: 07/02/2021 Reviewed by: Jennifer Tucker - Fully Assessed Reason for Visit: Referral Information [[id number]] Cmt: GI Prescriptions as of 07/18/2021 - ferrous sulfate 325 mg (65 mg iron) tablet Take 325 mg by mouth. - Omeprazole Magnesium 20 mg tablet Take 20 mg by mouth. - spironolactone (ALDACTONE) 25 mg tablet Take 1 tablet by mouth once daily. - CALCIUM ORAL Take by mouth. - esomeprazole (NEXIUM) 20 mg capsule Take 20 mg by mouth DAILY (6 AM). - rivaroxaban (XARELTO) 20 mg tablet Take 20 mg by mouth daily with dinner. - allopurinol (ZYLOPRIM) 300 mg tablet Take 300 mg by mouth once daily. - meloxicam (MOBIC) 15 mg tablet Take 15 mg by mouth once daily. - furosemide (LASIX) 20 mg tablet Take 20 mg by mouth once daily. - fluticasone/umeclidin /vilanter (TRELEGY ELLIPTA INHALATION) Inhale as instructed. Problem List As Of Date: 07/02/2021 (None) Encounter Status:Closed by JATINDER KRAUSE on 07/18/21 Normal [facility] CRP SerPl-mCncon 07-02-2021 CRP [Mass/Vol] 0.7 mg/dL Normal <0.9 [facility] Comment on above: Order Comment: Speci men Type: BLOOD SPECIMEN Ordering Facility: [facility] Address: [address] [place] [address] Performed By: #### 1 988-5, B12, 4542-7, 3016-3 #### [facility] CLIA [id number] [address] [place] [address] [place] Comprehensive metabolic 2000 panelon 07-02-2021 Albumin [Mass/Vol] 4.5 g/dL Normal 3.9-4.9 [facility] Comment on above: Order Comment: Speci men Type: BLOOD SPECIMEN Ordering Facility: [facility] Address: [address] [place] [address] Performed By: #### 1 5061-5 #### [facility] CLIA [id number] [address] [place] [address] [place] ALP [Catalytic activity/Vol] 130 U/L High 38-113 [facility] Comment on above: Order Comment: Speci men Type: BLOOD SPECIMEN Ordering Facility: [facility] Address: [address] [place], [place] [address] Performed By: #### 1 5061-5 #### [facility] CLIA [id number] [address] [place] [address] [place] ALT [Catalytic activity/Vol] 13 U/L Normal 10-54 [facility] Comment on above: Order Comment: Speci men Type: BLOOD SPECIMEN Ordering Facility: [facility] Address: [address] [place], [place] [address] Performed By: #### 1 5061-5 #### [facility] CLIA [id number] [address] [place] [address] [place] Anion gap [Moles/Vol] 9 mmol/L Normal 9-18 [facility] Comment on above: Order Comment: Speci men Type: BLOOD SPECIMEN Ordering Facility: [facility] Address: [address] [place], [place] [address] Performed By: #### 1 5061-5 #### [facility] CLIA [id number] [address] [place] [address] [place] AST [Catalytic activity/Vol] 20 U/L Normal 14-40 [facility] Comment on above: Order Comment: Speci men Type: BLOOD SPECIMEN Ordering Facility: [facility] Address: [address] [place], [place] [address] Performed By: #### 1 5061-5 #### [facility] CLIA [id number] [address] [place] [address] [place] Bilirubin [Mass/Vol] 0.5 mg/dL Normal 0.2-1.3 [facility] Comment on above: Order Comment: Speci men Type: BLOOD SPECIMEN Ordering Facility: [facility] Address: [address] [place], [place] [address] Performed By: #### 1 5061-5 #### [facility] CLIA [id number] [address] [place] [address] [place] Calcium [Mass/Vol] 9.7 mg/dL Normal 8.5-10.2 [facility] Comment on above: Order Comment: Speci men Type: BLOOD SPECIMEN Ordering Facility: [facility] Address: [address] [place], [place] [address] Performed By: #### 1 5061-5 #### [facility] CLIA [id number] [address] [place] [address] [place] Chloride [Moles/Vol] 102 mmol/L Normal 97-105 [facility] Comment on above: Order Comment: Speci men Type: BLOOD SPECIMEN Ordering Facility: [facility] Address: [address] [place] [address] Performed By: #### 1 5061-5 #### [facility] CLIA [id number] [address] [place] [address] [place] CO2 [Moles/Vol] 27 mmol/L Normal 22-30 [facility] Comment on above: Order Comment: Speci men Type: BLOOD SPECIMEN Ordering Facility: [facility] Address: [address] [place] [address] Performed By: #### 1 5061-5 #### [facility] CLIA [id number] [address] [place] [address] [place] Creatinine [Mass/Vol] 1.17 mg/dL Normal 0.73-1.22 [facility] Comment on above: Order Comment: Speci men Type: BLOOD SPECIMEN Ordering Facility: [facility] Address: [address] [place] [address] Performed By: #### 1 5061-5 #### [facility] CLIA [id number] [address] [place] [address] [place] ESTIMATED GLOMERULAR FILTRATION RATE 63 mL/min/1.73m??? Normal >=60 [facility] Comment on above: Order Comment: Speci men Type: BLOOD SPECIMEN Ordering Facility: [facility] Address: [address] [place] [address] Result Comment: Charlotte mated Glomerular Filtration Rate (eGFR) is calculated using the 2020 CKD-EPI creatinine equation. This equation utilizes serum creatinine, sex, and age as parameters. The creatinine assay has traceable calibration to isotope dilution-mass spectrometry. Refer to KDIGO guidelines for clinical interpretation. In patients with unstable renal function, e.g. those with acute kidney injury, the eGFR may not accurately reflect actual GFR. Performed By: #### 1 5061-5 #### [facility] CLIA [id number] [address] [place] [address] [place] Glucose [Mass/Vol] 107 mg/dL High 74-99 [facility] Comment on above: Order Comment: Victorino khan Type: BLOOD SPECIMEN Ordering Facility: [facility] Address: [address] [place] [address] Result Comment: The [place] Diabetes Association (ADA) provides guidance for cutoff [...] Standards of Medical Care in Diabetes 2016, [place] [employer]. Diabetes Care. 2016.39(Suppl 1). Performed By: #### 1 5061-5 #### [facility] CLIA [id number] [address] [place] [address] [place] Potassium [Moles/Vol] 4.1 mmol/L Normal 3.7-5.1 [facility] Comment on above: Order Comment: Speci men Type: BLOOD SPECIMEN Ordering Facility: [facility] Address: [address] [place] [address] Performed By: #### 1 5061-5 #### [facility] CLIA [id number] [address] [place] [address] [place] Protein [Mass/Vol] 7.6 g/dL Normal 6.3-8.0 [facility] Comment on above: Order Comment: Victorino khan Type: BLOOD SPECIMEN Ordering Facility: [facility] Address: [address] [place] [address] Performed By: #### 1 5061-5 #### [facility] CLIA [id number] [address] [place] [address] [place] Sodium [Moles/Vol] 138 mmol/L Normal 136-144 [facility] Comment on above: Order Comment: Speci men Type: BLOOD SPECIMEN Ordering Facility: [facility] Address: [address] [place] [address] Performed By: #### 1 5061-5 #### [facility] CLIA [id number] [address] [place] [address] [place] Urea nitrogen [Mass/Vol] 22 mg/dL Normal 9-24 [facility] Comment on above: Order Comment: Speci men Type: BLOOD SPECIMEN Ordering Facility: [facility] Address: [address] [place] [address] Performed By: #### 1 5061-5 #### [facility] CLIA [id number] [address] [place] [address] [place] Albumin [Mass/Vol] 4.5 g/dL 3.9 - 4.9 g/dL [facility] ALP [Catalytic activity/Vol] 130 U/L High 38 - 113 U/L [facility] ALT [Catalytic activity/Vol] 13 U/L 10 - 54 U/L [facility] Anion gap [Moles/Vol] 9 mmol/L 9 - 18 mmol/L [facility] AST [Catalytic activity/Vol] 20 U/L 14 - 40 U/L [facility] Bilirubin [Mass/Vol] 0.5 mg/dL 0.2 - 1 .3 mg/dL [facility] Calcium [Mass/Vol] 9.7 mg/dL 8.5 - 10. 2 mg/dL [facility] Chloride [Moles/Vol] 102 mmol/L 97 - 10 5 mmol/L [facility] CO2 [Moles/Vol] 27 mmol/L 22 - 30 mmol/L [facility] Creatinine [Mass/Vol] 1.17 mg/dL 0.73 - 1.22 mg/dL [facility] Estimated Glomerular Filtration Rate 63 mL/min/1.73m >=60 mL/min/1.73m [facility] Glucose [Mass/Vol] 107 mg/dL High 74 - 99 mg/dL [facility] Potassium [Moles/Vol] 4.1 mmol/L 3.7 - 5.1 mmol/L [facility] Protein [Mass/Vol] 7.6 g/dL 6.3 - 8.0 g/dL [facility] Sodium [Moles/Vol] 138 mmol/L 136 - 144 mmol/L [facility] Urea nitrogen [Mass/Vol] 22 mg/dL 9 - 24 mg/dL [facility] EPO SerPl-aCncon 07-02-2021 Erythropoietin (EPO) Qn 14.7 mIU/mL Normal 2.6-18.5 [facility] Comment on above: Order Comment: Speci men Type: BLOOD SPECIMEN Ordering Facility: [facility] Address: [address] [place] [address] Performed By: #### 1 5061-5 #### [facility] CLIA [id number] [address] [place] [address] [place] ESR Westergren method (Bld) [Velocity]on 07-02-2021 ESR (Bld) [Velocity] 29 mm/h High 0-15 [facility] Comment on above: Order Comment: Speci men Type: BLOOD SPECIMEN Ordering Facility: [facility] Address: [address] [place] [address] Performed By: #### 1 5061-5 #### [facility] CLIA [id number] [address] [place] [address] [place] Haptoglob SerPl-mCncon 07-02 Haptoglobin [Mass/Vol] 189 mg/dL Normal 31-238 [facility] Comment on above: Order Comment: Speci men Type: BLOOD SPECIMEN Ordering Facility: [facility] Address: [address] [place] [address] Performed By: #### 1 988-5, B12, 4542-7, 3016-3 #### [facility] CLIA [id number] [address] [place] [address] [place] IMMUNOFIXATION SCREEN, SERUM on 07-02-2021 INTERPRETATION (MPA) Atypical restricted bands are present in the IgG and lambda regions. Consistent with IgG lambda monoclonal gammopathy. Normal [facility] Comment on above: Order Comment: Speci men Type: BLOOD SPECIMEN Ordering Facility: [facility] Address: [address] [place] [address] Performed By: #### 2 885-2, [id number], IFESC #### [facility] CLIA [id number] [address] [place] [address] [place] MPA RESULT M protein is present. Abnormal No M p rotein is identified. [facility] Comment on above: Order Comment: Speci men Type: BLOOD SPECIMEN Ordering Facility: [facility] Address: [address] [place] [address] Performed By: #### 2 885-2, [id number], IFESC #### [facility] CLIA [id number] [address] [place] [address] [place] STAFF REVIEW (MPA) Reviewed by Stuart Cordoba MD, Ph.D ([id number]) Normal [facility] Comment on above: Order Comment: Speci men Type: BLOOD SPECIMEN Ordering Facility: [facility] Address: [address] [place] [address] Performed By: #### 2 885-2, [id number], IFESC #### [facility] CLIA [id number] [address] [place] [address] [place] IMMUNOGLOBULINS GAMon 2021 IgA [Mass/Vol] 213 mg/dL Normal 70-400 [facility] Comment on above: Order Comment: Speci men Type: BLOOD SPECIMEN Ordering Facility: [facility] Address: [address] [place] [address] Performed By: #### S ERIMM #### [facility] CLIA [id number] [address] [place] [address] [place] IgG [Mass/Vol] 1267 mg/dL Normal 700-1,600 [facility] Comment on above: Order Comment: Speci men Type: BLOOD SPECIMEN Ordering Facility: [facility] Address: [address] [place] [address] Performed By: #### S ERIMM #### [facility] CLIA [id number] [address] [place] [address] [place] IgM [Mass/Vol] 87 mg/dL Normal 40-230 [facility] Comment on above: Order Comment: Speci men Type: BLOOD SPECIMEN Ordering Facility: [facility] Address: [address] [place] [address] Performed By: #### S ERIMM #### [facility] CLIA [id number] [address] [place] [address] [place] KAPPA/WADDELL,FREE,SERon 2021 Immunoglobulin light chains.kappa.free (S) [Mass/Vol] 24.6 mg/L High 3.3-19.4 [facility] Comment on above: Order Comment: Speci men Type: BLOOD SPECIMEN Ordering Facility: [facility] Address: [address] [place] [address] Performed By: #### 1 5061-5 #### [facility] CLIA [id number] [address] [place] [address] [place] Immunoglobulin light chains.kappa/Immunoglo bulin light chains.lambda (S) [Mass ratio] 0.16 Low 0.26-1.65 [facility] Comment on above: Order Comment: Speci men Type: BLOOD SPECIMEN Ordering Facility: [facility] Address: [address] [place] [address] Performed By: #### 1 5061-5 #### [facility] CLIA [id number] [address] [place] [address] [place] Immunoglobulin light chains.lambda.free [Mass/Vol] 149.8 mg/L High 5.7-26.3 [facility] Comment on above: Order Comment: Speci men Type: BLOOD SPECIMEN Ordering Facility: [facility] Address: [address] [place] [address] Performed By: #### 1 5061-5 #### [facility] CLIA [id number] [address] [place] [address] [place] LD LACTATE DEHYDROon 022 LDH [Catalytic activity/Vol] 166 U/L 135 - 225 U/L [facility] LDH SerPl-cCncon 07-02-2021 LDH [Catalytic activity/Vol] 166 U/L Normal 135-225 [facility] Comment on above: Order Comment: Speci men Type: BLOOD SPECIMEN Ordering Facility: [facility] Address: [address] [place] [address] Performed By: #### 1 5061-5 #### [facility] CLIA [id number] [address] [place] [address] [place] PROTEIN ELECTROPHORESIS SERU M (P)on 07-02-2021 Albumin [Mass/Vol] 3.99 g/dL Normal 3.37-4.23 [facility] Comment on above: Order Comment: Speci men Type: BLOOD SPECIMEN Ordering Facility: [facility] Address: [address] [place] [address] Performed By: #### 2 885-2, [id number], IFESC #### [facility] CLIA [id number] [address] [place] [address] [place] Alpha 1 globulin Elph [Mass/Vol] 0.27 g/dL Normal 0.18-0.31 [facility] Comment on above: Order Comment: Speci men Type: BLOOD SPECIMEN Ordering Facility: [facility] Address: [address] [place] [address] Performed By: #### 2 885-2, [id number], IFESC #### [facility] CLIA [id number] [address] [place], [place] [address] [place] Alpha 2 globulin Elph [Mass/Vol] 0.79 g/dL Normal 0.52-0.97 [facility] Comment on above: Order Comment: Speci men Type: BLOOD SPECIMEN Ordering Facility: [facility] Address: [address] [place], [place] [address] Performed By: #### 2 885-2, [id number], IFESC #### [facility] CLIA [id number] [address] [place] [address] [place] Beta globulin Elph [Mass/Vol] 1.16 g/dL Normal 0.84-1.36 [facility] Comment on above: Order Comment: Speci men Type: BLOOD SPECIMEN Ordering Facility: [facility] Address: [address] [place] [address] Performed By: #### 2 885-2, [id number], IFESC #### [facility] CLIA [id number] [address] [place] [address] [place] Gamma globulin Elph (Body fld) [Mass fraction] 1.39 g/dL Normal 0.70-1.44 [facility] Comment on above: Order Comment: Speci men Type: BLOOD SPECIMEN Ordering Facility: [facility] Address: [address] [place], [place] [address] Performed By: #### 2 885-2, [id number], IFESC #### [facility] CLIA [id number] [address] [place], [place] [address] [place] INTERPRETATION COMMENT FOR PROTEIN ELECTROPHORESIS See separate immunofixation report for characterization of monoclonal gammopathy. Normal [facility] Comment on above: Order Comment: Speci men Type: BLOOD SPECIMEN Ordering Facility: [facility] Address: [address] [place], [place] [address] Performed By: #### 2 885-2, [id number], IFESC #### [facility] CLIA [id number] [address] [place] [address] [place] M-PROTEIN LOCATION Gamma Fraction 1 Normal [facility] Comment on above: Order Comment: Speci men Type: BLOOD SPECIMEN Ordering Facility: [facility] Address: [address] [place] [address] Performed By: #### 2 885-2, [id number], IFESC #### [facility] CLIA [id number] [address] [place] [address] [place] Protein Fractions [Interp] An M protein is identified on protein electrophoresis. Abnormal No definitive M protein is identified on protein electrophore sis. [facility] Comment on above: Order Comment: Speci men Type: BLOOD SPECIMEN Ordering Facility: [facility] Address: [address] [place] [address] Performed By: #### 2 885-2, [id number], IFESC #### [facility] CLIA [id number] [address] [place] [address] [place] Protein.monoclonal Elph [Mass/Vol] 0.66 g/dL High <=0.00 [facility] Comment on above: Order Comment: Speci men Type: BLOOD SPECIMEN Ordering Facility: [facility] Address: [address] [place], [place] [address] Performed By: #### 2 885-2, [id number], IFESC #### [facility] CLIA [id number] [address] [place] [address] [place] SPE STAFF REVIEW Reviewed by Stuart Cordoba MD, Ph.D ([id number]) Normal [facility] Comment on above: Order Comment: Speci men Type: BLOOD SPECIMEN Ordering Facility: [facility] Address: [address] [place], [place] [address] Performed By: #### 2 885-2, [id number], IFESC #### [facility] CLIA [id number] [address] [place] [address] [place] Prot SerPl-mCncon 07-02-2021 Protein [Mass/Vol] 7.0 g/dL Normal 6.3-8.0 [facility] Comment on above: Order Comment: Speci men Type: BLOOD SPECIMEN Ordering Facility: [facility] Address: [address] [place], [place] [address] [address] Performed By: #### 2 885-2, [id number], IFES #### [facility] CLIA [id number] [address] [place] [address] [place] RETIC COUNTon 07-02-2021 Reticulocytes (Bld) [#/Vol] 0.44838 10*3/uL 0.018 - 0.100 M/uL [facility] Retics #on 07-02-2021 Reticulocytes (Bld) [#/Vol] 0.51343 10*3/uL Normal 0.018-0.100 [facility] Comment on above: Order Comment: Speci men Type: BLOOD SPECIMEN Ordering Facility: [facility] Address: [address] [place], [place] [address]Joana F[address] Performed By: #### 5 7021-8, 13883-2 #### [facility] CLIA [id number] [address] [place] [address] Reticulocytes (Bld) [#/Vol]o n 07-02-2021 Reticulocytes/100 RBC (Bld) 0.8 % Normal 0.4-2.0 [facility] Comment on above: Order Comment: Speci men Type: BLOOD SPECIMEN Ordering Facility: [facility] Address: [address] [place], [place] [address] Performed By: #### 5 7021-8, 13698-5 #### [facility] CLIA [id number] [address] [place] [address] Reticulocytes/100 RBC (Bld) 0.8 % 0.4 - 2.0 % [facility] TSH SerPl-aCncon 07-02-2021 TSH Qn 6.160 m[IU]/L High 0.270-4.200 [facility] Comment on above: Order Comment: Speci men Type: BLOOD SPECIMEN Ordering Facility: [facility] Address: [address] [place] [address] Performed By: #### 1 988-5, B12, 4542-7, 3016-3 #### [facility] CLIA [id number] [address] [place] [address] [place] VITAMIN B12 BLOODon 07-03-19 Cobalamin (Vitamin B12) [Mass/Vol] 663 pg/mL Normal 232-1,245 [facility] Comment on above: Order Comment: Speci men Type: BLOOD SPECIMEN Ordering Facility: [facility] Address: [address] [place] [address] Performed By: #### 1 988-5, B12, 4542-7, 3016-3 #### [facility] CLIA [id number] [address] [place] [address] [place] C-Reactive ProteinOrdered By : Wing Álvarez on 12-14-2020 CRP [Mass/Vol] 7.8 mg/L High 0.0 - 5.0 mg/L [employer] Phone: Interpretation and review of laboratory results Abnormal [employer] Phone: C3 ComplementOrdered By: Lydia Álvarez on 12-14-2020 Complement C3 145 mg/dL 90 - 180 mg/dL [employer] Phone: C4 ComplementOrdered By: Lydia Álvarez on 12-14-2020 Complement C4 31 mg/dL 10 - 40 mg/dL [employer] Phone: Comprehensive Metabolic Pane lOrdered By: Wing Álvarez on 12-14-2020 Albumin [Mass/Vol] 3.8 g/dL 3.5 - 5.2 g/dL [employer] Phone: Albumin/Globulin Ratio NOT REPORTED [employer] Phone: ALP (Bld) [Catalytic activity/Vol] 117 U/L 40 - 129 U/L [employer] Phone: ALT [Catalytic activity/Vol] 12 U/L 5 - 41 U/L [employer] Phone: Anion gap [Moles/Vol] 9 mmol/L 9 - 17 mmol/L [employer] Phone: AST [Catalytic activity/Vol] 17 U/L <40 [employer] Phone: Bilirubin [Mass/Vol] 0.47 mg/dL 0.30 - 1.20 mg/dL [employer] Phone: Calcium [Mass/Vol] 9.3 mg/dL 8.6 - 10. 4 mg/dL [employer] Phone: Chloride [Moles/Vol] 102 mmol/L 98 - 10 7 mmol/L [employer] Phone: CO2 [Moles/Vol] 24 mmol/L 20 - 31 mmol/L [employer] Phone: Creatinine [Mass/Vol] 1.08 mg/dL 0.70 - 1.20 mg/dL [employer] Phone: Free PSA/Total PSA [Mass fraction] 7.0 g/dL 6.4 - 8.3 g/dL [employer] Phone: GFR >60 >60 mL/min [employer] Phone: GFR Non- >60 >60 mL/min [employer] Phone: GFR/1.73 sq M.predicted MDRD (S/P/Bld) [Vol rate/Area] [employer] Phone: Comment on above: Average GFR for 70 o r more years old: 75 mL/min/1.73sq m Chronic Kidney Disease: <60 mL/min/1.73sq m Kidney failure: <15 mL/min/1.73sq m eGFR calculated using average adult body mass. Additional eGFR calculator available at: http://www.[employer]/multiple_crcl_2012.htm GFR/1.73 sq M.predicted MDRD (S/P/Bld) [Vol rate/Area] NOT REPORTED [employer] Phone: Glucose [Mass/Vol] 114 mg/dL High 70 - 99 mg/dL [employer] Phone: Interpretation and review of laboratory results Abnormal [employer] Work Phone: Potassium [Moles/Vol] 3.8 mmol/L 3.7 - 5.3 mmol/L [employer] Phone: Sodium [Moles/Vol] 135 mmol/L 135 - 144 mmol/L [employer] Phone: Urea nitrogen (BldV) [Mass/Vol] 22 mg/dL 8 - 23 mg/dL [employer] Work Phone: Urea nitrogen/Creatinine (Bld) [Mass ratio] 20 [employer] Work Phone: [employer] Phone: FerritinOrdered By: Wing amaya on 12-14-2020 Ferritin 40 ug/L 30 - 400 ug/L [employer] Work Phone: Iron and TIBCOrdered By: Lydia Álvarez on 12-14-2020 Interpretation and review of laboratory results Abnormal [employer] Phone: Iron [Mass/Vol] 48 ug/dL Low 59 - 158 ug/dL [employer] Work Phone: Iron Saturation 13 % Low 20 - 55 % [facility] Work Phone: TIBC 374 ug/dL 250 - 450 ug/dL [employer] Work Phone: UIBC 326 ug/dL 112 - 347 ug/dL [employer] Work Phone: No Panel InformationOrdered By: Wing Álvarez on 12-14-2020 [employer] Work Phone: [facility] Phone: Protein / creatinine ratio, urineOrdered By: Wing Álvarez on 12-14-2020 Creatinine, Ur 22.0 mg/dL Low 39.0 - 259.0 mg/dL [facility] Phone: Interpretation and review of laboratory results Abnormal [facility] Work Phone: Total Protein, Urine <4 mg/dL [facility] Work Phone: Comment on above: No normal range esta blished. Urine Total Protein Creatinine Ratio CANNOT BE CALCULATED [facility] Work Phone: [facility] Work Phone: Sedimentation RateOrdered By : Wing Álvarez on 12-14-2020 Interpretation and review of laboratory results Abnormal [employer] Work Phone: Sed Rate 45 mm High 0 - 20 mm [employer] Work Phone: [facility] Work Phone: Urinalysis Reflex to Culture Ordered By: Wing Álvarez on 12-14-2020 Bilirubin Urine Negative NEGATIVE [facility] Work Phone: Color, UA YELLOW YELLOW [facility] Work Phone: Glucose, Ur Negative NEGATIVE [facility] Work Phone: Ketones Ql (U) Negative NEGATIVE [facility] Work Phone: Leukocyte esterase Test strip Ql (U) Negative NEGATIVE [employer] Work Phone: Nitrite, Urine Negative NEGATIVE [facility] Work Phone: pH, UA 5.0 [facility] Work Phone: Protein, UA Negative NEGATIVE [facility] Work Phone: Specific [place], UA 1.010 [facility] Work Phone: Turbidity UA CLEAR CLEAR [employer] Work Phone: Urinalysis Comments [facility] Work Phone: Urine Hgb Negative NEGATIVE [employer] Phone: Urobilinogen, Urine Normal Normal [employer] Phone: [facility] Work Phone: Vitamin B12 & FolateOrdered By: Wing Álvarez on 12-14-2020 Cobalamin (Vitamin B12) [Mass/Vol] 656 pg/mL 232 - 1245 pg/mL [facility] Work Phone: Folate 13.9 ng/mL >4.8 [facility] Work Phone: [employer] Phone: Brain Natriuretic PeptideOrd ered By: Pamela Montoya on 10-20-2020 BNP Interpretation Pro-BNP Reference Range: [employer] Phone: Comment on above: Rule Out: <300 [place] Zone: Age <50 300-450 Age 50-75 300-900 Age >75 300-1800 Usually represents mild to moderate HF but other cardiopulmonary causes cannot be ruled out. Rule In: Age <50 >450 Age 50-75 >900 Age >75 >1800 Natriuretic peptide B (Bld) [Mass/Vol] 3270 pg/mL High <300 [facility] Work Phone: Comment on above: Pro-BNP results sonya ot be compared to BNP results. CBC Auto DifferentialOrdered By: Pamela Montoya on 10-20-2020 Absolute Eos # 0.20 [facility] Work Phone: Absolute Immature Granulocyte NOT REPORTED [facility] Work Phone: Absolute Lymph # 1.20 [facility] Work Phone: [facility] Atkinson # 0.80 [facility] Work Phone: Basophils (Bld) [#/Vol] 0.00 10*3/uL [employer] Phone: Basophils/100 WBC (Bld) 1 % 0 - 2 % [employer] Phone: Differential Type YES [facility] Phone: Eosinophils/100 WBC (Bld) 3 % 0 - 5 % [employer] Phone: Hematocrit (Bld) [Volume fraction] 31.1 % Low 41 - 53 % [employer] Phone: Hemoglobin.gastrointes tinal spec 1 Ql (Stl) 10.1 g/dL Low 13.5 - 17.5 g/dL [employer] Phone: Immature Granulocytes NOT REPORTED 0 % [employer] Phone: Interpretation and review of laboratory results Abnormal [employer] Phone: Lymphocytes/100 WBC (Bld) 17 % 13 - 44 % [employer] Phone: MCH (RBC) [Entitic mass] 29.6 pg 26 - 34 pg [employer] Phone: MCHC (RBC) [Mass/Vol] 32.6 g/dL 31 - 37 g/dL [employer] Phone: MCV (RBC) [Entitic vol] 90.8 fL 80 - 100 fL [employer] Phone: Monocytes/100 WBC (Bld) 12 % High 5 - 9 % [employer] Phone: NRBC Automated NOT REPORTED per 100 WBC [facility] Phone: Platelet distribution width (Bld) [Ratio] 14.4 % 12.1 - 15.2 % [employer] Phone: Platelet Estimate NOT REPORTED [employer] Phone: Platelet mean volume (Bld) [Entitic vol] NOT REPORTED 6.0 - 12.0 fL [employer] Work Phone: Platelets (Bld) [#/Vol] 259 10*3/uL [employer] Phone: RBC (Bld) [#/Vol] 3.43 10*6/uL Low 4.5 - 5.9 m/uL [employer] Phone: RBC (Bld) [#/Vol] NOT REPORTED [employer] Phone: Segmented neutrophils/100 WBC (Bld) 67 % 39 - 75 % [facility] Work Phone: Segs Absolute 4.80 [employer] Work Phone: WBC (Bld) [#/Vol] 7.1 10*3/uL [employer] Phone: WBC (Bld) [#/Vol] NOT REPORTED [employer] Phone: [facility] Work Phone: Comprehensive Metabolic Pane l w/ Reflex to MGOrdered By: Pamela Montoya on 10-20-2020 Albumin [Mass/Vol] 3.6 g/dL 3.5 - 5.2 g/dL [employer] Phone: Albumin/Globulin Ratio NOT REPORTED [employer] Phone: ALP (Bld) [Catalytic activity/Vol] 131 U/L High 40 - 129 U/L [facility] Work Phone: ALT [Catalytic activity/Vol] 14 U/L 5 - 41 U/L [employer] Phone: Anion gap [Moles/Vol] 8 mmol/L Low 9 - 17 mmol/L [employer] Phone: AST [Catalytic activity/Vol] 19 U/L <40 [employer] Phone: Bilirubin [Mass/Vol] 0.31 mg/dL 0.30 - 1.20 mg/dL [employer] Phone: Calcium [Mass/Vol] 9.1 mg/dL 8.6 - 10. 4 mg/dL [employer] Phone: Chloride [Moles/Vol] 105 mmol/L 98 - 10 7 mmol/L [employer] Phone: CO2 [Moles/Vol] 23 mmol/L 20 - 31 mmol/L [employer] Phone: Creatinine [Mass/Vol] 0.88 mg/dL 0.70 - 1.20 mg/dL [employer] Phone: Free PSA/Total PSA [Mass fraction] 6.9 g/dL 6.4 - 8.3 g/dL [employer] Phone: GFR >60 >60 mL/min [employer] Phone: GFR Non- >60 >60 mL/min [employer] Phone: GFR/1.73 sq M.predicted MDRD (S/P/Bld) [Vol rate/Area] [employer] Phone: Comment on above: Average GFR for 70 o r more years old: 75 mL/min/1.73sq m Chronic Kidney Disease: <60 mL/min/1.73sq m Kidney failure: <15 mL/min/1.73sq m eGFR calculated using average adult body mass. Additional eGFR calculator available at: http://www.[employer]icher/multiple_crcl_2012.htm GFR/1.73 sq M.predicted MDRD (S/P/Bld) [Vol rate/Area] NOT REPORTED [employer] Phone: Glucose [Mass/Vol] 109 mg/dL High 70 - 99 mg/dL [employer] Phone: Potassium [Moles/Vol] 4.1 mmol/L 3.7 - 5.3 mmol/L [employer] Phone: Sodium [Moles/Vol] 136 mmol/L 135 - 144 mmol/L [employer] Phone: Urea nitrogen (BldV) [Mass/Vol] 21 mg/dL 8 - 23 mg/dL [employer] Phone: Urea nitrogen/Creatinine (Bld) [Mass ratio] 24 High [employer] Phone: No Panel InformationOrdered By: Pamela Montoya on 10-20-2020 Interpretation and review of laboratory results Abnormal [employer] Phone: [employer] Phone: Sedimentation RateOrdered By : Pamela Montoya on 10-20-2020 Interpretation and review of laboratory results Abnormal [employer] Phone: Sed Rate 45 mm High 0 - 20 mm [employer] Phone: [employer] Phone: TroponinOrdered By: Pamela Arias on 10-20-2020 Troponin Interp NOT REPORTED [employer] Work Phone: Troponin T NOT REPORTED <0.03 ng/mL [employer] Work Phone: Troponin, High Sensitivity 12 ng/L 0 - 22 ng/L [employer] Phone: Comment on above: High Sensitivity Troponin values cannot be compared with other Troponin methodologies. Patients with high levels of Biotin oral intake (i.e >5mg/day) may have falsely decreased Troponin levels. Samples collected within 8 hours of biotin intake may require additional information for diagnosis. XR CHEST (2 VW)Ordered By: Steffany Montoya on 10-20-2020 1. Borderline cardiomegaly. 2. Moderate hiatal hernia noted. 3. The lungs show chronic changes and findings of COPD. Minimal fluid and atelectasis noted in the lung bases. Mild fluid or atelectasis along the mid and superior aspect of the major fissure most likely on the left. [employer] Work Phone: EXAM: XR CHEST (2 VW ) HISTORY: Reason for exam:->vasculitis COMPARISON: Two-view chest from 07/27/2020. TECHNIQUE: Frontal and lateral films are done of the chest. FINDINGS: Trachea is midline. Mediastinum is not widened. Moderate hiatal hernia noted. Heart size is upper limits of normal. No nodule or pneumothorax is noted. The lungs show hyperaeration with chronic changes. There is minimal fluid and atelectasis suggested in the lung bases. The lateral film there appears to be mild atelectasis or fluid in one of the major fissures most likely in the left. Diaphragm and bony elements are intact. [employer] Phone: Gregorio, [facility] Incoming Radiant Results From [employer] - 10/20/2020 5:39 PM EDT EXAM: XR CHEST (2 VW) HISTORY: Reason for exam:->vasculitis COMPARISON: Two-view chest from 07/27/2020. TECHNIQUE: Frontal and lateral films are done of the chest. FINDINGS: Trachea is midline. Mediastinum is not widened. Moderate hiatal hernia noted. Heart size is upper limits of normal. No nodule or pneumothorax is noted. The lungs show hyperaeration with chronic changes. There is minimal fluid and atelectasis suggested in the lung bases. The lateral film there appears to be mild atelectasis or fluid in one of the major fissures most likely in the left. Diaphragm and bony elements are intact. IMPRESSION: 1. Borderline cardiomegaly. 2. Moderate hiatal hernia noted. 3. The lungs show chronic changes and findings of COPD. Minimal fluid and atelectasis noted in the lung bases. Mild fluid or atelectasis along the mid and superior aspect of the major fissure most likely on the left. [employer] Phone: [employer] Phone: Basic metabolic 2000 panelon 08-17-2020 Calcium [Mass/Vol] 8.9 mg/dL Normal 8.5-10.6 [facility] Chloride [Moles/Vol] 103 mmol/L Normal 98-107 [facility] CO2 [Moles/Vol] 25 mmol/L Normal 21-32 [facility] Creatinine [Mass/Vol] 0.92 mg/dL Normal 0.70-1.30 [facility] Glucose [Mass/Vol] 101 mg/dL High 70-99 [facility] Potassium [Moles/Vol] 3.9 mmol/L Normal 3.5-5.1 [facility] Sodium [Moles/Vol] 137 mmol/L Normal 136-145 [facility] Urea nitrogen (BldV) [Mass/Vol] 13 mg/dL Normal 7.0-18.0 [facility] Urea nitrogen/Creatinine [Mass ratio] 14 mg/mg Normal [facility] Magnesium Levelon 08-17-2020 Magnesium [Mass/Vol] 1.8 mg/dL Normal 1.8-2.4 [facility] Patient Summaryon 08-17-2020 Patient Summary PATIENT DISCHARGE INSTRUCTIONS If you are having an emergency and are not able to reach your physician, CALL 911 or go to the nearest emergency room and take this document with you. [facility] 08/17/20 13:08 [address] [place] [address] PATIENT INFORMATION Name: BRET YAP RONNELL Address: [address] [place] [id number] Age: 80 Years Phone: [phone] : 1940 12:00 MRN: [id number] Sex: Male Race: White Ethnicity: Not Hispan/Lat Admitted From: Clinic or [facility] Medical Service: Orthopedic Surgery Nurse Unit/Bed: (CO) 2N 0216-01 Admit Date: 08/14/2020 08:28 PCP: Yemi DE LA PAZ , Faizan Waite PHYSICIANS INVOLVED WITH CARE ------ Attending Physicians: Viviana DE LA PAZ , Norman Torres - Orthopaedic Surg Admitting Physician: Norman Michelle MD - Orthopaedic Surg Primary Care Physician:Yemi DE LA PAZ , Faizan Waite,[facility], - Consults: Logan DE LA PAZ , Abdifatah - Internal Medicine Kimmie DE LA PAZ , Kamran Ingram - Internal Medicine Josh DE LA PAZ , Torrey Hernandez - Internal Medicine GenLouis, TAMAR - Internal Medicine FOLLOW-UP APPOINTMENTS: Provider: Specialty: Address: Date: Faizan Bragg MD [facility] [address] [facility] [address] (1) Follow-up as needed Provider: Specialty: Address: Date: Norman Michelle MD Orthopaedic Surg [address] [place] [id number] (1) 2 to 3 weeks Comment: Please call to schedule your 2-3 week follow-up appointment. May call sooner with any questions or concerns. ALLERGIES: No Known Medication Allergies No Known Allergies MEASUREMENTS: Last Charted: Weight: 93.40 kg /205 lbs 15 oz ( 08/14/20 09:08:00 ) MEDICATIONS For: BRET YAP This is your list of medication(s). Keep it with you at all times. Your doctor may have changed doses, add, held or stopped some of your medications. Please share this information with your family doctor. Carry this list of medications with you in case of an emergency. Update it when medications are stopped, doses are changed, or new medications (including [id number] products) are added. Ask your doctor if you have any questions. THESE ARE THE MEDICATIONS YOU SHOULD BE TAKING allopurinol (allopurinol 300 mg oral tablet) 1 Tab(s) By Mouth once a day. am. calcium carbonate (OsCal 500) 2 Tab(s) By Mouth once a day. am. Freetext Medication Post-op script -Oxycodone. omeprazole (omeprazole 20 mg oral enteric coated capsule) 1 Capsule By Mouth once a day. am. rivaroxaban (Xarelto 20 mg oral tablet) 20 Milligram By Mouth once a day. MEDICATION CHANGE DETAILS (Not your Final Home Medication List) During the course of your visit, your home medication list was updated with the most current information. The details of those changes are shown below: NEW MEDICATIONS Other Medications Freetext Medication Post-op script -Oxycodone. Comment UPDATED MEDICATIONS None UNCHANGED MEDICATIONS Other Medications allopurinol (allopurinol 300 mg oral tablet) 1 Tab(s) By Mouth once a day. am. Comment calcium carbonate (OsCal 500) 2 Tab(s) By Mouth once a day. am. Comment omeprazole (omeprazole 20 mg oral enteric coated capsule) 1 Capsule By Mouth once a day. am. Comment rivaroxaban (Xarelto 20 mg oral tablet) 20 Milligram By Mouth once a day. Comment STOP TAKING THESE MEDICATIONS None DO NOT TAKE UNTIL YOU TALK TO YOUR DOCTOR None NON-MEDICATION PRESCRIPTION SCHEDULING PHONE NUMBER: SELECTED LAB RESULTS Lab Result Order Date Hemoglobin 11.0 gm/dL 08/16/2020 Hematocrit 33.1 % 08/16/2020 WBC Count 11.4 thou/mcL 08/16/2020 Platelet Count 183 thou/mcL 08/16/2020 Sodium Level 137 mMol/L 08/17/2020 Potassium Level 3.9 mMol/L 08/17/2020 Creatinine 0.92 mg/dL 08/17/2020 BUN 13 mg/dL 08/17/2020 Glucose Level 101 mg/dL 08/17/2020 ADVANCE DIRECTIVE/HEALTH CARE DECISIONS: Advance Directive/Health Care Decisions Executed by Patient: Yes Advance Directive/Health Care Decisions Type: Living Will, Medical Power of Cryptological Technician Copy of Advance Directive/Health Care Decisions on Chart: Patient/Family asked to provide copy SUICIDE HOTLINE: Your mental and emotional well-being are important. If you are in a mental health crisis, or having thoughts of suicide, please call the nationwide suicide hotline, anytime day or night, at 8-255-413-QGGJ. It's easy to sign up for [employer]: 1. Visit [email or web address] 2. Click on [place] for [employer] 3. Verify your identity by entering you (more content not included)... Normal [facility] XR Abdomen 1 Viewon 08-18-19 XR Abdomen Single view EXAMINATION TYPE: XR Abdomen 1 View DATE OF EXAM : 08/17/2020 7:45 AM HISTORY: Abdominal Distention, COMPARISON: August 15, 08/16/2020 FINDINGS: Supine imaging of the abdomen demonstrates relatively stable moderate colonic and mild small bowel gaseous distention. Cecum measures 8 to 9 cm. Gas is again noted in the rectosigmoid colon. No grossly apparent free air. Postoperative changes lumbar spine redemonstrated. IMPRESSION: Stable exam with moderate gaseous distention of bowel most compatible with a persistent ileus. [place] thanks you for the opportunity to care for your patient. Workstation ID: [id number] - [id number] FINAL REPORT Dictated By: Abdoul Hung MD 08/17/2020 07:46 Assigned Physician: Abdoul Hung MD Reviewed and Electronically Signed By: Abdoul Hung MD 08/17/2020 07:47 Transcribed by: SINDI 08/17/2020 07:46 Technologist: [place] Normal [facility] Basic metabolic 2000 panelon 08-16-2020 Calcium [Mass/Vol] 8.7 mg/dL Normal 8.5-10.6 [facility] Chloride [Moles/Vol] 104 mmol/L Normal 98-107 [facility] CO2 [Moles/Vol] 27 mmol/L Normal 21-32 [facility] Creatinine [Mass/Vol] 0.95 mg/dL Normal 0.70-1.30 [facility] Glucose [Mass/Vol] 100 mg/dL High 70-99 [facility] Potassium [Moles/Vol] 3.9 mmol/L Normal 3.5-5.1 [facility] Sodium [Moles/Vol] 138 mmol/L Normal 136-145 [facility] Urea nitrogen (BldV) [Mass/Vol] 21 mg/dL High 7.0-18.0 [facility] Urea nitrogen/Creatinine [Mass ratio] 22 mg/mg Normal [facility] CBC W Auto Differential pane l (Bld)on 08-16-2020 Basophils (Bld) [#/Vol] 0.1 thou/mcL Normal 0.0-0.2 [facility] Basophils/100 WBC (Bld) 0.4 % Normal 0-3 [facility] Differential cell count method Nom (Bld) AUTOMATED DIFFERENTIAL Normal [facility] Eosinophils (Bld) [#/Vol] 0.0 thou/mcL Normal 0.0-0.4 [facility] Eosinophils/100 WBC (Bld) 0.2 % Normal 0-7 [facility] Erythrocyte distribution width (RBC) [Entitic vol] 13.8 % Normal 11.7-15.0 [facility] Hematocrit (Bld) [Volume fraction] 33.1 % Low 34.0-50.0 [facility] Hemoglobin (Bld) [Mass/Vol] 11.0 g/dL Low 11.5-17.0 [facility] Lymphocytes (Bld) [#/Vol] 1.3 thou/mcL Normal 0.7-4.5 [facility] Lymphocytes/100 WBC (Bld) 11.6 % Low 14-46 [facility] MCH (RBC) [Entitic mass] 31.5 Picograms Normal 27.0-34.0 [facility] MCHC (RBC) [Mass/Vol] 33.3 g/dL Normal 32.0-36.0 [facility] MCV (RBC) [Entitic vol] 94.8 fL Normal 80-98 [facility] Monocytes (Bld) [#/Vol] 1.4 thou/mcL High 0.1-1.0 [facility] Monocytes/100 WBC (Bld) 12.3 % Normal 4-13 [facility] Neutrophils (Bld) [#/Vol] 8.6 thou/mcL High 1.5-7.8 [facility] Neutrophils/100 WBC (Bld) 75.5 % High 40-74 [facility] Platelet mean volume (Bld) [Entitic vol] 8.1 fL Normal 7.5-11.2 [facility] Platelets (Bld) [#/Vol] 183 thou/mcL Normal 140-415 [facility] RBC (Bld) [#/Vol] 3.50 x(10)6/mcL Low 3.80-5.[address] [facility] WBC (Bld) [#/Vol] 11.4 thou/mcL High 4.0-10.5 [facility] Magnesium Levelon 08-16-2020 Magnesium [Mass/Vol] 1.9 mg/dL Normal 1.8-2.4 [facility] XR Abdomen 1 Viewon 08-17-19 21 XR Abdomen Single view EXAMINATION TYPE: XR Abdomen 1 View DATE OF SERVICE: 08/16/2020 7:53 AM HISTORY: Abdominal Distention COMPARISON: 08/15/2020 FINDINGS: Gas is enlargement of the transverse colon to diameter 7.5 cm, 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 Cecal diameter is approximately 7 cm. A measurement of 6 cm is obtained from 08/15/2020 images. Gaseous enlargement descending colon has decreased. Greater than usual small bowel gas. Cutaneous mery overlie Abdomen. Fixation devices applied to lumbar spine. 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 [place] thanks you for the opportunity to care for your patient. Workstation ID: [id number] - [id number] FINAL REPORT Dictated By: Gary Calderón MD 08/16/2020 08:13 Assigned Physician: Gary Calderón MD Reviewed and Electronically Signed By: Gary Calderón MD 08/16/2020 08:16 Transcribed by: SINDI 08/16/2020 08:13 Technologist: [place] John [facility] Basic metabolic 2000 panelon 08-15-2020 Calcium [Mass/Vol] 8.9 mg/dL Normal 8.5-10.6 [facility] Chloride [Moles/Vol] 100 mmol/L Normal 98-107 [facility] CO2 [Moles/Vol] 23 mmol/L Normal 21-32 [facility] Creatinine [Mass/Vol] 1.01 mg/dL Normal 0.70-1.30 [facility] Glucose [Mass/Vol] 160 mg/dL High 70-99 [facility] Potassium [Moles/Vol] 4.7 mmol/L Normal 3.5-5.1 [facility] Sodium [Moles/Vol] 132 mmol/L Low 136-145 [facility] Urea nitrogen (BldV) [Mass/Vol] 21 mg/dL High 7.0-18.0 [facility] Urea nitrogen/Creatinine [Mass ratio] 21 mg/mg Normal [facility] CBC W Auto Differential pane l (Bld)on 08-15-2020 Basophils (Bld) [#/Vol] 0.0 thou/mcL Normal 0.0-0.2 [facility] Basophils/100 WBC (Bld) 0.4 % Normal 0-3 [facility] Differential cell count method Nom (Bld) AUTOMATED DIFFERENTIAL Normal [facility] Eosinophils (Bld) [#/Vol] 0.0 thou/mcL Normal 0.0-0.4 [facility] Eosinophils/100 WBC (Bld) 0.0 % Normal 0-7 [facility] Erythrocyte distribution width (RBC) [Entitic vol] 13.2 % Normal 11.7-15.0 [facility] Hematocrit (Bld) [Volume fraction] 37.2 % Normal 34.0-50.0 [facility] Hemoglobin (Bld) [Mass/Vol] 12.5 g/dL Normal 11.5-17.0 [facility] Lymphocytes (Bld) [#/Vol] 0.7 thou/mcL Normal 0.7-4.5 [facility] Lymphocytes/100 WBC (Bld) 6.4 % Low 14-46 [facility] MCH (RBC) [Entitic mass] 31.4 Picograms Normal 27.0-34.0 [facility] MCHC (RBC) [Mass/Vol] 33.5 g/dL Normal 32.0-36.0 [facility] MCV (RBC) [Entitic vol] 93.7 fL Normal 80-98 [facility] Monocytes (Bld) [#/Vol] 0.7 thou/mcL Normal 0.1-1.0 [facility] Monocytes/100 WBC (Bld) 6.6 % Normal 4-13 [facility] Neutrophils (Bld) [#/Vol] 9.8 thou/mcL High 1.5-7.8 [facility] Neutrophils/100 WBC (Bld) 86.6 % High 40-74 [facility] Platelet mean volume (Bld) [Entitic vol] 8.3 fL Normal 7.5-11.2 [facility] Platelets (Bld) [#/Vol] 220 thou/mcL Normal 140-415 [facility] RBC (Bld) [#/Vol] 3.97 x(10)6/mcL Normal 3.80-5.[address] [facility] WBC (Bld) [#/Vol] 11.3 thou/mcL High 4.0-10.5 [facility] OR Nursingon 08-15-2020 OR Nursing CO NA OR Nursing Record Summary Primary Physician: Norman Michelle MD Finalized Date/Time: 08/15/20 08:39:15 Pt. Name: BRET YAP/Sex: 1940 Male Med Rec #: [id number] Physician: Norman Michelle MD Financial #: [id number] Pt. Type: I Room/Bed: [address] [place] [address] Admit/Disch: 08/14/20 08:28:00 - Institution: CO NA OR Case Times Entry 1 Patient Times Patient In Room 08/14/20 11:15:00 Patient Out Room 08/14/20 14:02:00 Surgical Times Start Time 08/14/20 11:43:00 Stop Time 08/14/20 13:57:00 Last Modified By: Geraldo Edmond RN 08/14/20 14:02:12 CO NA OR Case Attendees Entry 1 Entry 2 Entry 3 Case Attendee Viviana DE LA PAZ , Norman Ferraro MD , Asher Tuttel Role Performed Primary Surgeon Anesthesiologist Physician Jewelry Bench Molder Time In 08/14/20 11:40:00 08/14/20 11:15:00 08/14/20 12:01:00 Time Out 08/14/20 13:40:00 08/14/20 14:02:00 08/14/20 14:02:00 Procedure Fusion Lumbar Fusion Lumbar Fusion Lumbar Posterior(Lumbar) Posterior(Lumbar) Posterior(Lumbar) Attendee Comment COVERAGE Relief Reason Last Modified By: Mayito PERKINS , Geraldo Edmond RN , Geraldo Lujan RN 08/14/20 14:02:15 08/14/20 14:02:15 08/14/20 14:02:15 Entry 4 Entry 5 Entry 6 Case Attendee Mayito PERKINS , Adilia Willson Zoran Role Performed armature balancer First Scrub Assistive Personnel Time In 08/14/20 11:15:00 08/14/20 11:15:00 08/14/20 11:15:00 Time Out 08/14/20 14:02:00 08/14/20 14:02:00 08/14/20 14:02:00 Procedure Fusion Lumbar Fusion Lumbar Fusion Lumbar Posterior(Lumbar) Posterior(Lumbar) Posterior(Lumbar) Attendee Comment Relief Reason Last Modified By: Mayito PERKINS , Geraldo Edmond RN , Geraldo Lujan RN 08/14/20 14:02:15 08/14/20 14:02:15 08/14/20 14:02:15 Entry 7 Entry 8 Case Attendee Ruddy Ritchie Melanie Role Performed Storage Management Architect Cell Saver Architectural Representative Time In 08/14/20 11:15:00 08/14/20 11:34:00 Time Out 08/14/20 14:02:00 08/14/20 14:02:00 Procedure Fusion Lumbar Fusion Lumbar Posterior(Lumbar) Posterior(Lumbar) Attendee Comment Relief Reason Last Modified By: Geraldo Edmond RN, RN, Andrew M 08/14/20 14:02:15 08/14/20 14:02:15 CO NA OR General Case Cigar Packer And Grader 1 OR CO NA 03 ASA Class 3 Case Wound Class Clean Specialty Orthopedic Surgery Case Level Spine Complex Diagnosis Preop Diagnosis M48.062 M54.16 Postop Same As Preop Yes Postop Diagnosis M48.062 M54.16 This is a down time No record. Last Modified By: Chema PERKINS , Emily Muhammad 08/15/20 08:37:45 CO NA OR Surgical Procedures Entry 1 Procedure Fusion Lumbar Posterior Primary Procedure Yes Modifiers Lumbar Procedure Wound Clean Class Primary Surgeon Norman Michelle MD Surgical Service Orthopedic Surgery Anesthesia Type General Procedure Performed L3-S1 posterior lumbar laminectomy and fusion with instrumentation Start 08/14/20 11:43:00 Stop 08/14/20 13:57:00 Last Modified By: Geraldo Edmond RN 08/14/20 13:59:42 CO NA OR Catheters, Drains, and Tubes Entry 1 Device Type TRAY OSULLIVAN W/BAG 16FR Present on Arrival? No 5ML BALLOON LUBRI-DIANE LF [id number] Location URETHRA / BLADDER Inserted By Geraldo Edmond RN, DC'joana at End of Case? No Last Modified By: Geraldo Edmond RN 08/14/20 11:46:46 CO NA OR Patient Positioning Entry 1 Abdomen Pre Soft Skin Condition Warm, Dry, Intact Procedure Before Body Position Prone Pressure Points Yes Assessed? Right Arm Position On armboard Left Arm Position On armboard Arm Secured Right, Left Positioning Device Foam, Pillows, Bed Specialty Right Leg Position Straight Left Leg Position Straight Safety Strap Applied Yes Safety Strap Thighs Location Positioned By Xavier Kilpatrick, Positioning Comment POSITIONED PRONE ON Geraldo Edmond RN, JACKSON TABLE WITH Jasmine DE LA PAZ , EARLENE Amato; PRONEVIEW Norman Michelle MD HEADREST WITH PADDING; ARMS ON ARMBOARD WITH FOAM ARM CRADLES; KNEES PADDED WITH FOAM; LEGS SLIGHTLY FLEXED WITH PILLOWS UNDER LOWER LEGS TO ELEVATE TOES Procedure Fusion Lumbar Posterior(Lumbar) Last Modified By: Geraldo Edmond RN 08/14/20 11:18:08 CO NA OR Antithrombolytic Devices Entry 1 IPC Intermittent Right, Left IPC Setting PRE SET Pneumatic Compression IPC Size Knee Bariatric No BARBIE Hose Foot Pump Last Modified By: Geraldo Edmond RN 08/14/20 11:18:16 CO NA OR Skin Prep Entry 1 Hair Removal Method None Skin Prep Prep Agents Chlorhexidine Gluconate Prep Site BACK 2% w Alcohol Prep by Geraldo Edmond RN Procedure Fusion Lumbar Posterior(Lumbar) Last Modified By: Geraldo Edmond RN 08/14/20 11:18:23 CO NA OR Fire Risk Assessment Entry 1 Alcohol Based Prep Yes Solution Dry Time >3 Minutes or According to Manufactures Instructions. No Pooling Observed. (No Alcohol Prep used Select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 nonspecific. Moderate size hiatal hernia. Calcified granulomas involving the mediastinum and right hilar region partially visualized. Right lung calcified granuloma. Trace pleural effusions. IMPRESSION: No acute fracture traumatic malalignment of the cervical spine. Minimal acute superior endplate compression fractures T3 and T5 and indeterminate compression fractures T1-T2 and T4. [place], [place] Vital Signs Date Time Vital Sign Value Performing Clinician Facility 11-18-2024 14:15-0400 Body height 182.9 cm Carol Gusman DPM Work Phone: [facility] 11-18-2024 14:15-0400 Body mass index (BMI) [Ratio] 26.45 kg/m2 Carol Gusman DPM Work Phone: [facility] 11-18-2024 14:15-0400 Body weight 88.45 kg Carol Gusman DPM Work Phone: [facility] 11-18-2024 14:15-0400 Diastolic blood pressure 57 mm[Hg] Carol Gusman DPM Work Phone: [facility] 11-18-2024 14:15-0400 Heart rate 63 /min Carol Gusman DPM Work Phone: [facility] 11-18-2024 14:15-0400 Systolic blood pressure 104 mm[Hg] Carol Gusman DPM Work Phone: [facility] 10-05-2024 14:04-0400 Body mass index (BMI) [Ratio] 26.32 kg/m2 Jeff Zayas MD Work Phone: [facility] 10-05-2024 14:04-0400 Body temperature 98.01 [degF] Jeff Zayas MD Work Phone: [facility] 10-05-2024 14:04-0400 Body weight 92.99 kg Jeff Zayas MD Work Phone: [facility] 09-27-2024 15:33-0400 Diastolic blood pressure 70 mm[Hg] Christopher Bohach DPM Work Phone: [facility] 09-27-2024 15:33-0400 Heart rate 70 /min Christopher Bohach DPM Work Phone: [facility] 09-27-2024 15:33-0400 Systolic blood pressure 131 mm[Hg] Christopher Bohach DPM Work Phone: [facility] 07-29-2024 14:05-0400 Body height 182.9 cm Christopher Bohach DPM Work Phone: [facility] 07-29-2024 14:05-0400 Body mass index (BMI) [Ratio] 26.45 kg/m2 Christopher Bohach DPM Work Phone: [facility] 07-29-2024 14:05-0400 Body weight 88.45 kg Christopher Bohach DPM Work Phone: [facility] 07-29-2024 14:05-0400 Diastolic blood pressure 59 mm[Hg] Christopher Bohach DPM Work Phone: [facility] 07-29-2024 14:05-0400 Heart rate 57 /min Christopher Bohach DPM Work Phone: [facility] 07-29-2024 14:05-0400 Respiratory rate 18 /min Christopher Bohach DPM Work Phone: [facility] 07-29-2024 14:05-0400 Systolic blood pressure 105 mm[Hg] Christopher Bohach DPM Work Phone: [facility] 07-15-2024 10:50-0400 Body height 182.9 cm Christopher Bohach DPM Work Phone: [facility] 07-15-2024 10:50-0400 Body mass index (BMI) [Ratio] 26.45 kg/m2 Christopher Bohach DPM Work Phone: [facility] 07-15-2024 10:50-0400 Body weight 88.45 kg Christopher Bohach DPM Work Phone: [facility] 07-15-2024 10:50-0400 Diastolic blood pressure 67 mm[Hg] Christopher Bohach DPM Work Phone: [facility] 07-15-2024 10:50-0400 Heart rate 77 /min Christopher Bohach DPM Work Phone: [facility] 07-15-2024 10:50-0400 Systolic blood pressure 107 mm[Hg] Christopher Bohach DPM Work Phone: [facility] 06-21-2024 14:43-0400 Body height 177.8 cm [facility] 06-21-2024 14:43-0400 Body mass index (BMI) [Ratio] 27.7 kg/m2 [facility] [place] 06-21-2024 14:43-0400 Body temperature 97.9 [degF] [facility] 06-21-2024 14:43-0400 Body weight 87.77 kg [facility] 06-21-2024 14:43-0400 Diastolic blood pressure 74 mm[Hg] [facility] [place] 06-21-2024 14:43-0400 Heart rate 84 /min [facility] 06-21-2024 14:43-0400 SaO2% (BldA) [Mass fraction] 98 % [facility] [place] 06-21-2024 14:43-0400 Systolic blood pressure 123 mm[Hg] [facility] 05-26-2024 11:20-0500 Body height 177.8 cm [facility] 05-26-2024 11:20-0500 Body mass index (BMI) [Ratio] 29.2 kg/m2 [facility] [place] 05-26-2024 11:20-0500 Body weight 92.53 kg [facility] 05-26-2024 11:20-0500 Diastolic blood pressure 65 mm[Hg] [facility] [place] 05-26-2024 11:20-0500 Heart rate 61 /min [facility] 05-26-2024 11:20-0500 SaO2% (BldA) [Mass fraction] 97 % [facility] [place] 05-26-2024 11:20-0500 Systolic blood pressure 113 mm[Hg] [facility] 05-13-2024 11:11-0500 Body height 182.9 cm Christbuzzer Bohach DPM Work Phone: [facility] 05-13-2024 11:11-0500 Body mass index (BMI) [Ratio] 26.45 kg/m2 Christopher Bohach DPM Work Phone: [facility] 05-13-2024 11:11-0500 Body weight 88.45 kg Christopher Bohach DPM Work Phone: [facility] 05-13-2024 11:11-0500 Diastolic blood pressure 76 mm[Hg] Christopher Bohach DPM Work Phone: [facility] 05-13-2024 11:11-0500 Heart rate 72 /min Christopher Bohach DPM Work Phone: [facility] 05-13-2024 11:11-0500 Systolic blood pressure 156 mm[Hg] Christopher Bohach DPM Work Phone: [facility] 05-07-2024 09:00-0500 Body height 177.8 cm [facility] 05-07-2024 09:00-0500 Body mass index (BMI) [Ratio] 29.1 kg/m2 [facility] [place] 05-07-2024 09:00-0500 Body weight 92.07 kg [facility] 05-07-2024 09:00-0500 Diastolic blood pressure 72 mm[Hg] [facility] [place] 05-07-2024 09:00-0500 Heart rate 73 /min [facility] 05-07-2024 09:00-0500 Systolic blood pressure 121 mm[Hg] [facility] [place] 04-30-2024 10:53-0500 Body height 177.8 cm [facility] 04-30-2024 10:53-0500 Body mass index (BMI) [Ratio] 29 kg/m2 [facility] [place] 04-30-2024 10:53-0500 Body weight 91.85 kg [facility] 04-30-2024 10:53-0500 Diastolic blood pressure 78 mm[Hg] [facility] [place] 04-30-2024 10:53-0500 Heart rate 71 /min [facility] 04-30-2024 10:53-0500 Respiratory rate 12 /min [facility] 04-30-2024 10:53-0500 Systolic blood pressure 133 mm[Hg] [facility] [place] 03-16-2024 10:09-0500 Body height 177.8 cm [facility] 03-16-2024 10:09-0500 Body mass index (BMI) [Ratio] 29.5 kg/m2 [facility] [place] 03-16-2024 10:09-0500 Body temperature 97.4 [degF] [facility] 03-16-2024 10:09-0500 Body weight 93.55 kg [facility] 03-16-2024 10:09-0500 Diastolic blood pressure 70 mm[Hg] [facility] [place] 03-16-2024 10:09-0500 Heart rate 84 /min [facility] 03-16-2024 10:09-0500 SaO2% (BldA) [Mass fraction] 96 % [facility] [place] 03-16-2024 10:09-0500 Systolic blood pressure 124 mm[Hg] [facility] 03-10-2024 11:46-0500 Body height 182.9 cm Carol Gusman DPM Work Phone: [facility] 03-10-2024 11:46-0500 Body mass index (BMI) [Ratio] 26.45 kg/m2 Christopher Bohach DPM Work Phone: [facility] 03-10-2024 11:46-0500 Body weight 88.45 kg Christopher Bohach DPM Work Phone: [facility] 03-10-2024 11:46-0500 Diastolic blood pressure 54 mm[Hg] Christopher Bohach DPM Work Phone: [facility] 03-10-2024 11:46-0500 Heart rate 74 /min Christopher Bohach DPM Work Phone: [facility] 03-10-2024 11:46-0500 Respiratory rate 18 /min Christopher Bohach DPM Work Phone: [facility] 03-10-2024 11:46-0500 Systolic blood pressure 81 mm[Hg] Christopher Bohach DPM Work Phone: [facility] 03-03-2024 13:35-0500 Diastolic blood pressure 69 mm[Hg] [facility] 03-03-2024 13:35-0500 Heart rate 58 /min [facility] 03-03-2024 13:35-0500 Mean blood pressure 86 mm[Hg] [facility] 03-03-2024 13:35-0500 Respiratory rate 14 /min [facility] 03-03-2024 13:35-0500 Systolic blood pressure 120 mm[Hg] [facility] 02-24-2024 13:33-0500 Heart rate 70 /min [facility] 02-24-2024 13:33-0500 SaO2% (BldA) [Mass fraction] 99 % [facility] 02-24-2024 13:33-0500 Diastolic blood pressure 76 mm[Hg] [facility] 02-24-2024 13:33-0500 Mean blood pressure 97 mm[Hg] [facility] 02-24-2024 13:33-0500 Systolic blood pressure 139 mm[Hg] [facility] 02-24-2024 13:32-0500 Respiratory rate 16 /min [facility] 02-24-2024 13:25-0500 Diastolic blood pressure 79 mm[Hg] [facility] 02-24-2024 13:25-0500 Heart rate 57 /min [facility] 02-24-2024 13:25-0500 Respiratory rate 16 /min [facility] 02-24-2024 13:25-0500 SaO2% (BldA) [Mass fraction] 98 % [facility] 02-24-2024 13:25-0500 Systolic blood pressure 131 mm[Hg] [facility] 02-24-2024 12:35-0500 Heart rate 61 /min [facility] 02-24-2024 12:35-0500 SaO2% (BldA) [Mass fraction] 99 % [facility] 02-24-2024 12:34-0500 Body temperature 97.34 [degF] [facility] 02-24-2024 12:32-0500 Diastolic blood pressure 65 mm[Hg] [facility] 02-24-2024 12:32-0500 Mean blood pressure 82 mm[Hg] [facility] 02-24-2024 12:32-0500 Systolic blood pressure 117 mm[Hg] [facility] 02-24-2024 12:28-0500 Respiratory rate 14 /min [facility] 01-28-2024 11:43-0400 Body height 179.07 cm [facility] 01-28-2024 11:43-0400 Body mass index (BMI) [Ratio] 28.4 kg/m2 [facility] [place] 01-28-2024 11:43-0400 Body temperature 98.1 [degF] [facility] 01-28-2024 11:43-0400 Body weight 91.17 kg [facility] 01-28-2024 11:43-0400 Diastolic blood pressure 72 mm[Hg] [facility] 01-28-2024 11:43-0400 Heart rate 68 /min [facility] 01-28-2024 11:43-0400 SaO2% (BldA) [Mass fraction] 94 % [facility] 01-28-2024 11:43-0400 Systolic blood pressure 124 mm[Hg] [facility] 01-22-2024 10:30-0400 Diastolic blood pressure 59 mm[Hg] [facility] 01-22-2024 10:30-0400 Heart rate 89 /min [facility] 01-22-2024 10:30-0400 Mean blood pressure 72 mm[Hg] [facility] 01-22-2024 10:30-0400 Respiratory rate 16 /min [facility] 01-22-2024 10:30-0400 Systolic blood pressure 97 mm[Hg] [facility] 01-20-2024 10:22-0400 Heart rate 51 /min [facility] 01-20-2024 10:22-0400 SaO2% (BldA) [Mass fraction] 99 % [facility] 01-20-2024 10:22-0400 Diastolic blood pressure 67 mm[Hg] [facility] 01-20-2024 10:22-0400 Mean blood pressure 85 mm[Hg] [facility] 01-20-2024 10:22-0400 Systolic blood pressure 123 mm[Hg] [facility] 01-20-2024 10:22-0400 Respiratory rate 16 /min [facility] 01-20-2024 10:13-0400 Diastolic blood pressure 66 mm[Hg] [facility] 01-20-2024 10:13-0400 Heart rate 51 /min [facility] 01-20-2024 10:13-0400 Respiratory rate 16 /min [facility] 01-20-2024 10:13-0400 SaO2% (BldA) [Mass fraction] 99 % [facility] 01-20-2024 10:13-0400 Systolic blood pressure 112 mm[Hg] [facility] 01-20-2024 09:43-0400 Heart rate 54 /min [facility] 01-20-2024 09:43-0400 SaO2% (BldA) [Mass fraction] 98 % [facility] 01-20-2024 09:42-0400 Diastolic blood pressure 66 mm[Hg] [facility] 01-20-2024 09:42-0400 Mean blood pressure 82 mm[Hg] [facility] 01-20-2024 09:42-0400 Systolic blood pressure 113 mm[Hg] [facility] 01-20-2024 09:42-0400 Body temperature 97.7 [degF] [facility] 01-20-2024 09:41-0400 Respiratory rate 16 /min [facility] 12-17-2023 09:52-0400 Diastolic blood pressure 68 mm[Hg] [facility] 12-17-2023 09:52-0400 Heart rate 58 /min [facility] 12-17-2023 09:52-0400 Mean blood pressure 85 mm[Hg] [facility] 12-17-2023 09:52-0400 Respiratory rate 20 /min [facility] 12-17-2023 09:52-0400 Systolic blood pressure 120 mm[Hg] [facility] 12-02-2023 10:13-0400 Body height 182.9 cm Carol Gusman DPM Work Phone: [facility] 12-02-2023 10:13-0400 Body mass index (BMI) [Ratio] 26.45 kg/m2 Carol Gusman DPM Work Phone: [facility] 12-02-2023 10:13-0400 Body weight 88.45 kg Carol Gusman DPM Work Phone: [facility] 12-02-2023 10:13-0400 Diastolic blood pressure 47 mm[Hg] Freddyer Bohach DPM Work Phone: [facility] 12-02-2023 10:13-0400 Heart rate 62 /min Christopher Bohach DPM Work Phone: [facility] 12-02-2023 10:13-0400 Systolic blood pressure 93 mm[Hg] Freddyer Bohach DPM Work Phone: [facility] 11-24-2023 14:22-0400 Heart rate 64 /min [facility] 11-24-2023 14:22-0400 SaO2% (BldA) [Mass fraction] 99 % [facility] 11-24-2023 14:22-0400 Diastolic blood pressure 77 mm[Hg] [facility] 11-24-2023 14:22-0400 Mean blood pressure 97 mm[Hg] [facility] 11-24-2023 14:22-0400 Systolic blood pressure 136 mm[Hg] [facility] 11-24-2023 14:22-0400 Respiratory rate 16 /min [facility] 11-24-2023 14:05-0400 Diastolic blood pressure 69 mm[Hg] [facility] 11-24-2023 14:05-0400 Heart rate 67 /min [facility] 11-24-2023 14:05-0400 Respiratory rate 16 /min [facility] 11-24-2023 14:05-0400 SaO2% (BldA) [Mass fraction] 98 % [facility] 11-24-2023 14:05-0400 Systolic blood pressure 128 mm[Hg] [facility] 11-24-2023 12:41-0400 Heart rate 64 /min [facility] 11-24-2023 12:41-0400 SaO2% (BldA) [Mass fraction] 98 % [facility] 11-24-2023 12:40-0400 Respiratory rate 14 /min [facility] 11-24-2023 12:40-0400 Diastolic blood pressure 71 mm[Hg] [facility] 11-24-2023 12:40-0400 Mean blood pressure 90 mm[Hg] [facility] 11-24-2023 12:40-0400 Systolic blood pressure 129 mm[Hg] [facility] 11-24-2023 12:40-0400 Body temperature 97.88 [degF] [facility] 11-19-2023 10:45-0400 Body height 179.07 cm [facility] 11-19-2023 10:45-0400 Body mass index (BMI) [Ratio] 29.1 kg/m2 [facility] [place] 11-19-2023 10:45-0400 Body weight 93.44 kg [facility] 11-19-2023 10:45-0400 Diastolic blood pressure 55 mm[Hg] [facility] 11-19-2023 10:45-0400 Heart rate 80 /min [facility] 11-19-2023 10:45-0400 Systolic blood pressure 115 mm[Hg] [facility] 10-28-2023 14:02-0400 Heart rate 71 /min [facility] 10-28-2023 14:02-0400 SaO2% (BldA) [Mass fraction] 99 % [facility] 10-28-2023 14:02-0400 Diastolic blood pressure 76 mm[Hg] [facility] 10-28-2023 14:02-0400 Mean blood pressure 96 mm[Hg] [facility] 10-28-2023 14:02-0400 Systolic blood pressure 135 mm[Hg] [facility] 10-28-2023 14:02-0400 Respiratory rate 16 /min [facility] 10-28-2023 13:48-0400 Diastolic blood pressure 73 mm[Hg] [facility] 10-28-2023 13:48-0400 Heart rate 59 /min [facility] 10-28-2023 13:48-0400 SaO2% (BldA) [Mass fraction] 98 % [facility] 10-28-2023 13:48-0400 Systolic blood pressure 115 mm[Hg] [facility] 10-28-2023 12:54-0400 Heart rate 64 /min [facility] 10-28-2023 12:54-0400 SaO2% (BldA) [Mass fraction] 98 % [facility] 10-28-2023 12:54-0400 Diastolic blood pressure 81 mm[Hg] [facility] 10-28-2023 12:54-0400 Mean blood pressure 99 mm[Hg] [facility] 10-28-2023 12:54-0400 Systolic blood pressure 135 mm[Hg] [facility] 10-28-2023 12:53-0400 Respiratory rate 14 /min [facility] 10-28-2023 12:53-0400 Body temperature 98.06 [degF] [facility] 09-17-2023 11:10-0400 Diastolic blood pressure 74 mm[Hg] [facility] 09-17-2023 11:10-0400 Heart rate 60 /min [facility] 09-17-2023 11:10-0400 Mean blood pressure 95 mm[Hg] [facility] 09-17-2023 11:10-0400 Respiratory rate 14 /min [facility] 09-17-2023 11:10-0400 Systolic blood pressure 136 mm[Hg] [facility] 09-08-2023 14:29-0400 Heart rate 55 /min [facility] 09-08-2023 14:29-0400 SaO2% (BldA) [Mass fraction] 100 % [facility] 09-08-2023 14:29-0400 Respiratory rate 16 /min [facility] 09-08-2023 14:28-0400 Diastolic blood pressure 71 mm[Hg] [facility] 09-08-2023 14:28-0400 Mean blood pressure 87 mm[Hg] [facility] 09-08-2023 14:28-0400 Systolic blood pressure 117 mm[Hg] [facility] 09-08-2023 14:12-0400 Diastolic blood pressure 70 mm[Hg] [facility] 09-08-2023 14:12-0400 Heart rate 74 /min [facility] 09-08-2023 14:12-0400 Respiratory rate 14 /min Daniel Hair [facility] 09-08-2023 14:12-0400 SaO2% (BldA) [Mass fraction] 97 % Daniel Hair [facility] 09-08-2023 14:12-0400 Systolic blood pressure 130 mm[Hg] Daniel Hair [facility] 09-08-2023 13:30-0400 Heart rate 76 /min Daniel Hair [facility] 09-08-2023 13:30-0400 SaO2% (BldA) [Mass fraction] 98 % Daniel Hair [facility] 09-08-2023 13:30-0400 Body temperature 97.88 [degF] Daniel Hair [facility] 09-08-2023 13:29-0400 Diastolic blood pressure 65 mm[Hg] Daniel Hair [facility] 09-08-2023 13:29-0400 Mean blood pressure 77 mm[Hg] Sanchez Reginaldo [facility] 09-08-2023 13:29-0400 Systolic blood pressure 101 mm[Hg] Daniel Hair [facility] 09-08-2023 13:24-0400 Respiratory rate 14 /min Daniel Reginaldo [facility] 08-11-2023 08:13-0400 Diastolic blood pressure 70 mm[Hg] Heavenly Mahoney [facility] 08-11-2023 08:13-0400 Heart rate 68 /min Heavenly Mahoney [facility] 08-11-2023 08:13-0400 Mean blood pressure 89 mm[Hg] Heavenly Mahoney [facility] 08-11-2023 08:13-0400 Respiratory rate 14 /min Heavenly Mahoney [facility] 08-11-2023 08:13-0400 Systolic blood pressure 128 mm[Hg] Heavenly Mahoney [facility] 08-04-2023 09:21-0400 Heart rate 53 /min Daniel aHir [facility] 08-04-2023 09:21-0400 SaO2% (BldA) [Mass fraction] 98 % Daniel Hair [facility] 08-04-2023 09:21-0400 Diastolic blood pressure 87 mm[Hg] Daniel Hair [facility] 08-04-2023 09:21-0400 Mean blood pressure 106 mm[Hg] Daniel Hair [facility] 08-04-2023 09:21-0400 Systolic blood pressure 144 mm[Hg] Daniel Hair [facility] 08-04-2023 09:21-0400 Respiratory rate 16 /min Daniel Hair [facility] 08-04-2023 09:07-0400 Diastolic blood pressure 72 mm[Hg] Daniel Hair [facility] 08-04-2023 09:07-0400 Heart rate 69 /min Daniel Hair [facility] 08-04-2023 09:07-0400 SaO2% (BldA) [Mass fraction] 98 % Daniel Hair [facility] 08-04-2023 09:07-0400 Systolic blood pressure 145 mm[Hg] Daniel Hair [facility] 08-04-2023 08:12-0400 Heart rate 56 /min Daniel Hair [facility] 08-04-2023 08:12-0400 SaO2% (BldA) [Mass fraction] 100 % Daniel Hair [facility] 08-04-2023 08:12-0400 Body temperature 97.34 [degF] Daniel Hair [facility] 08-04-2023 08:11-0400 Diastolic blood pressure 74 mm[Hg] Daniel Hair [facility] 08-04-2023 08:11-0400 Mean blood pressure 95 mm[Hg] Daniel Hair [facility] 08-04-2023 08:11-0400 Systolic blood pressure 138 mm[Hg] Daniel Hair [facility] 08-04-2023 08:11-0400 Respiratory rate 18 /min Daniel Hair [facility] 07-03-2023 14:08-0400 Diastolic blood pressure 65 mm[Hg] Daniel Hair [facility] 07-03-2023 14:08-0400 Heart rate 53 /min Daniel Hair [facility] 07-03-2023 14:08-0400 Mean blood pressure 84 mm[Hg] Daniel Hair [facility] 07-03-2023 14:08-0400 Respiratory rate 16 /min Daniel Hair [facility] 07-03-2023 14:08-0400 Systolic blood pressure 121 mm[Hg] Daniel Hair [facility] 04-08-2023 14:00-0500 Body height 179.07 cm Faizan Bragg Other [facility] Other 04-08-2023 14:00-0500 Body mass index (BMI) [Ratio] 29.14 kg/m2 Faizan Bragg Other [facility] Other 04-08-2023 14:00-0500 Body weight 93.44 kg Faizan Bragg Other [facility] Other 04-08-2023 14:00-0500 Diastolic blood pressure 67 mm[Hg] Faizan Bragg Other [facility] Other 04-08-2023 14:00-0500 Systolic blood pressure 116 mm[Hg] Faizan Bragg Other [facility] Other 07-09-2022 11:45-0400 Body height 179.07 cm Faizan Bragg Other [facility] Other 07-09-2022 11:45-0400 Body mass index (BMI) [Ratio] 28.15 kg/m2 Faizan Bragg Other [facility] Other 07-09-2022 11:45-0400 Body temperature 100.2 [degF] Faizan Bragg Other [facility] Other 07-09-2022 11:45-0400 Body weight 90.27 kg Faizan Bragg Other [facility] Other 07-09-2022 11:45-0400 Diastolic blood pressure 70 mm[Hg] Faizan Bragg Other [facility] Other 07-09-2022 11:45-0400 SaO2% (BldA) [Mass fraction] 96 % Faizan Bragg Other [facility] Other 07-09-2022 11:45-0400 Systolic blood pressure 124 mm[Hg] Faizan Bragg Other [facility] Other 05-22-2022 09:30-0500 Body height 179.07 cm Faizan Bragg Other [facility] Other 05-22-2022 09:30-0500 Body mass index (BMI) [Ratio] 28.15 kg/m2 Faizan Bragg Other [facility] Other 05-22-2022 09:30-0500 Body weight 90.27 kg Faizan Bragg Other [facility] Other 05-22-2022 09:30-0500 Diastolic blood pressure 62 mm[Hg] Faizan Bragg Other [facility] Other 05-22-2022 09:30-0500 SaO2% (BldA) [Mass fraction] 97 % Faizan Bragg Other [facility] Other 05-22-2022 09:30-0500 Systolic blood pressure 126 mm[Hg] Faizan Bragg Other [employer] Other 10-23-2021 13:35-0400 Diastolic blood pressure 53 mm[Hg] MD Faizan Bragg Work Phone: [facility] [place] 10-23-2021 13:35-0400 Heart rate 55 /min MD Faizan Bragg Work Phone: [facility] [place] 10-23-2021 13:35-0400 Respiratory rate 18 /min MD Faizan Bragg Work Phone: [facility] [place] 10-23-2021 13:35-0400 SaO2% (BldA) [Mass fraction] 98 % MD Faizan Bragg Work Phone: [facility] [place] 10-23-2021 13:35-0400 Systolic blood pressure 104 mm[Hg] MD Faizan Bragg Work Phone: [facility] [place] 10-23-2021 11:52-0400 Body height 187.96 cm MD Faizan Bragg Work Phone: [facility] [place] 10-23-2021 11:52-0400 Body weight 88.45 kg MD Faizan Bragg Work Phone: [facility] [place] 10-04-2021 14:30-0400 Body height Mik Chandlernaheed Other [facility] Other 10-04-2021 14:30-0400 Body mass index (BMI) [Ratio] 25.68 kg/m2 Mik Paulinadillonnaheed Other [facility] Other 10-04-2021 14:30-0400 Body weight 90.72 kg Mik Paulinadillonnaheed Other [facility] Other 10-04-2021 14:30-0400 Diastolic blood pressure 73 mm[Hg] Mik Paulinakhoi Other [facility] Other 10-04-2021 14:30-0400 Systolic blood pressure 110 mm[Hg] iMk Amaya Other [employer] Other 07-02-2021 10:53-0400 Body height 190 cm Ketan Manzanares MD Work Phone: [facility] 07-02-2021 10:53-0400 Body temperature 97.2 [degF] Ketan Manzanares MD Work Phone: [facility] 07-02-2021 10:53-0400 Body weight 94.71 kg Ketan Manzanares MD Work Phone: [facility] 07-02-2021 10:53-0400 Diastolic blood pressure 64 mm[Hg] Ketan Manzanares MD Work Phone: [facility] 07-02-2021 10:53-0400 Heart rate 65 /min Ketan Manzanares MD Work Phone: [facility] 07-02-2021 10:53-0400 Respiratory rate 16 /min Ketan Manzanares MD Work Phone: [facility] 07-02-2021 10:53-0400 SaO2% (BldA) [Mass fraction] 99 % Ketan Manzanares MD Work Phone: [facility] 07-02-2021 10:53-0400 Systolic blood pressure 134 mm[Hg] Ketan Manzanares MD Work Phone: [facility] 10-20-2020 16:11-0400 Body height 185.4 cm Pamela Montoya MD Work Phone: [employer] Work Phone: 10-20-2020 16:11-0400 Body mass index (BMI) [Ratio] 28.76 kg/m2 Pamela Montoya MD Work Phone: [employer] Work Phone: 10-20-2020 16:11-0400 Body temperature 98.71 [degF] Pamela Montoya MD Work Phone: [employer] Work Phone: 10-20-2020 16:11-0400 Body weight 98.88 kg Pamela Montoya MD Work Phone: [employer] Work Phone: 10-20-2020 16:11-0400 Diastolic blood pressure 74 mm[Hg] Pamela Montoya MD Work Phone: [employer] Work Phone: 10-20-2020 16:11-0400 Heart rate 99 /min Pamela Montoya MD Work Phone: [employer] Work Phone: 10-20-2020 16:11-0400 Respiratory rate 20 /min Pamela Montoya MD Work Phone: [employer] Work Phone: 10-20-2020 16:11-0400 SaO2% (BldA) [Mass fraction] 96 % Pamela Montoya MD Work Phone: [employer] Work Phone: 10-20-2020 16:11-0400 Systolic blood pressure 154 mm[Hg] Pamela Montoya MD Work Phone: [employer] Work Phone: 09-18-2019 17:43-0400 Body Temperature 98.4 [degF] [place] 09-18-2019 17:40-0400 BP Diastolic 99 mm[Hg] [place] [employer] [facility] 09-18-2019 17:40-0400 BP Systolic 146 mm[Hg] [place] [employer] [facility] 09-18-2019 17:40-0400 Pulse (Heart Rate) 89 /min Gurdeep Rev[facility] 09-18-2019 17:40-0400 Pulse Oximetry 97 % [employer] [employer] [place] 09-18-2019 17:40-0400 Respiratory Rate 18 /min [place] [employer] [facility] Encounters Encounter Date Encounter Type Care Provider Facility Start: 12-03-2024 End: 12-03-2024 ambulatory [place] [place]: 11-18-2024 End: 11-18-2024 Office outpatient visit 15 minutes Carol Gusman DPM Work Phone: [facility] Comment on above: Corns and callositie s (Primary Dx); Idiopathic progressive polyneuropathy; Hammer toe of left foot; Hallux valgus of left foot; Pain of toe of left foot Start: 11-18-2024 End: 11-18-2024 ambulatory CAROL GUSMAN Not Available Start: 11-18-2024 End: 11-18-2024 Bamboo flowsheet Carol Gusman DPM Work Phone: [facility] [place] [facility] Start: 11-18-2024 End: 11-18-2024 Bamboo flowsheet Carol Gusman DPM Work Phone: [facility] Start: 11-10-2024 End: 11-10-2024 Bamboo flowsheet Natalie Marks PA Work Phone: [facility] Start: 11-10-2024 End: 11-10-2024 Bamboo flowsheet Natalie Marks PA Work Phone: [facility] Start: 11-10-2024 End: 11-10-2024 Patient encounter procedure Natalie Marks PA Work Phone: [facility] Comment on above: Actinic keratosis (P rimary Dx); Inflamed seborrheic keratosis Start: 11-10-2024 End: 11-10-2024 ambulatory NATALIE MARKS Not Available Start: 10-05-2024 End: 10-05-2024 Clinical Support Mechelle Ferguson Work Phone: [facility] Comment on above: Sensorineural hearin g loss, bilateral (Primary Dx) Start: 10-05-2024 End: 10-05-2024 Office outpatient new 30 minutes Jeff Zayas MD Work Phone: [facility] Comment on above: Sensorineural hearin g loss, bilateral (Primary Dx); Impaired auditory discrimination, bilateral Start: 09-27-2024 End: 09-27-2024 Bamboo flowsheet Carol Gusman DPM Work Phone: [facility] Start: 09-27-2024 End: 09-27-2024 Bamboo flowsheet Carol Gusman DPM Work Phone: [facility] Start: 09-27-2024 End: 09-27-2024 Patient encounter procedure Carol Gusman DPM Work Phone: [facility] Comment on above: Idiopathic progressi ve polyneuropathy (Primary Dx); Onychomycosis Start: 09-27-2024 End: 09-27-2024 ambulatory CAROL GUSMAN Not Available Start: 08-06-2024 End: 08-06-2024 ambulatory SHAREE EVANS [facility] Start: 08-06-2024 End: 08-06-2024 Subsequent hospital visit by physician Faizan Bragg MD Work Phone: [facility] Comment on above: Elevated PSA Start: 07-29-2024 End: 07-29-2024 Office outpatient visit 15 minutes Carol Gusman DPM Work Phone: [facility] Comment on above: Ulcer of right heel and midfoot, limited to breakdown of skin (CMS/HCC) (Primary Dx); Abrasion of right heel with infection Start: 07-29-2024 End: 07-29-2024 ambulatory CAROL GUSMAN Not Available Start: 07-29-2024 End: 07-29-2024 Bamboo flowsheet Carol Gusman DPM Work Phone: [facility] Start: 07-29-2024 End: 07-29-2024 Bamboo flowsheet Carol Gusman DPM Work Phone: [facility] Start: 07-15-2024 End: 07-15-2024 Bamboo flowsheet Carol Gusman DPM Work Phone: [facility] Start: 07-15-2024 End: 07-15-2024 Bamboo flowsheet Carol Gusman DPM Work Phone: [facility] Start: 07-15-2024 End: 07-15-2024 Office outpatient visit 15 minutes Carol Gusman DPM Work Phone: [facility] Comment on above: Ulcer of right heel and midfoot, limited to breakdown of skin (CMS/HCC) (Primary Dx); Idiopathic progressive polyneuropathy; Onychomycosis; Abrasion of right heel with infection Start: 07-15-2024 End: 07-15-2024 ambulatory CAROL GUSMAN Not Available Start: 06-23-2024 End: 06-25-2024 ambulatory MIESHA CLARK [facility] Start: 06-23-2024 End: 06-25-2024 Subsequent hospital visit by physician [facility] Additional Xray At [facility] Comment on above: Chest pain, unspecif ied type; Shortness of breath; Atrial flutter, unspecified type ([facility]); Encounter for lipid screening for cardiovascular disease; Aortic valve stenosis, etiology of cardiac valve disease unspecified; Vitamin D deficiency disease; Other fatigue Start: 06-21-2024 End: 06-21-2024 ambulatory [facility] Work Phone: Start: 06-21-2024 End: 06-21-2024 Patient encounter procedure [facility] Work Phone: Start: 06-14-2024 End: 06-14-2024 Bamboo flowsheet Natalie Marks PA Work Phone: [facility] Start: 06-14-2024 End: 06-14-2024 Bamboo flowsheet Natalie Marks PA Work Phone: [facility] Start: 06-14-2024 End: 06-14-2024 Office outpatient visit 15 minutes Natalie Marks PA Work Phone: [facility] Comment on above: Other specified derm atitis (Primary Dx); Actinic keratosis Start: 06-14-2024 End: 06-14-2024 ambulatory NATALIE MARKS Not Available Start: 05-26-2024 End: 05-26-2024 [facility] Work Phone: Start: 05-26-2024 End: 05-26-2024 Patient encounter procedure [facility] Work Phone: Start: 05-13-2024 End: 05-13-2024 Bamboo flowsheet Carol Gusman DPM Work Phone: [facility] Start: 05-13-2024 End: 05-13-2024 Bamboo flowsheet Carol Gusman DPM Work Phone: [facility] Start: 05-13-2024 End: 05-13-2024 Patient encounter procedure Carol Gusman DPM Work Phone: [facility] Comment on above: Idiopathic progressi ve polyneuropathy (Primary Dx); Onychomycosis Start: 05-13-2024 End: 05-13-2024 ambulatory CAROL GUSMAN Not Available Start: 05-07-2024 End: 05-07-2024 ambulatory [facility] Work Phone: Start: 05-07-2024 End: 05-07-2024 Patient encounter procedure [facility] Work Phone: Start: 05-04-2024 End: 05-04-2024 ambulatory [facility] Start: 05-04-2024 End: 05-04-2024 Subsequent hospital visit by physician [facility] Card Rehab Therapist [facility] Comment on above: Arrived Start: 05-03-2024 End: 05-03-2024 ambulatory [facility] Start: 05-03-2024 End: 05-03-2024 Subsequent hospital visit by physician [facility] Card Rehab Therapist [facility] Comment on above: Arrived Start: 05-03-2024 ambulatory FAIZAN Heller [facility] Start: 04-30-2024 End: 04-30-2024 ambulatory [facility] Work Phone: Start: 04-30-2024 End: 04-30-2024 Patient encounter procedure [facility] Work Phone: Start: 04-29-2024 End: 05-01-2024 ambulatory MIESHA [facility] Start: 04-29-2024 End: 05-01-2024 Subsequent hospital visit by physician [facility] Card Rehab Therapist [facility] Comment on above: Arrived Shortness of breath Start: 04-27-2024 End: 04-27-2024 ambulatory [facility] Start: 04-27-2024 End: 04-27-2024 Subsequent hospital visit by physician [facility] Card Rehab Therapist [facility] Comment on above: Arrived Start: 04-26-2024 End: 04-26-2024 ambulatory [facility] Start: 04-26-2024 End: 04-26-2024 Subsequent hospital visit by physician Faizan Bragg MD Work Phone: [facility] Comment on above: Atrial flutter, unsp ecified type (HCC); Vitamin D deficiency; Encounter for lipid screening for cardiovascular disease; Aortic valve stenosis, etiology of cardiac valve disease unspecified; Fatigue, unspecified type Start: 04-26-2024 End: 04-26-2024 ambulatory [facility] Start: 04-26-2024 End: 04-26-2024 Subsequent hospital visit by physician [facility] Card Rehab Therapist [facility] Comment on above: Arrived Start: 04-22-2024 End: 04-22-2024 ambulatory [facility] Start: 04-22-2024 End: 04-22-2024 Subsequent hospital visit by physician [facility] Card Rehab Therapist [facility] Comment on above: Arrived Start: 04-20-2024 End: 04-20-2024 ambulatory [facility] Start: 04-20-2024 End: 04-20-2024 Subsequent hospital visit by physician [facility] Card Rehab Therapist [facility] Comment on above: Arrived Start: 04-19-2024 End: 04-19-2024 ambulatory [facility] Start: 04-19-2024 End: 04-19-2024 Subsequent hospital visit by physician [facility] Card Rehab Therapist [facility] Comment on above: Arrived Start: 04-15-2024 End: 04-15-2024 ambulatory [facility] Start: 04-15-2024 End: 04-15-2024 Subsequent hospital visit by physician [facility] Card Rehab Therapist [facility] Comment on above: Arrived Start: 04-13-2024 End: 04-13-2024 ambulatory [facility] Start: 04-13-2024 End: 04-13-2024 Subsequent hospital visit by physician [facility] Card Rehab Therapist [facility] Comment on above: Arrived Start: 04-12-2024 End: 04-12-2024 ambulatory [facility] Start: 04-12-2024 End: 04-12-2024 Subsequent hospital visit by physician [facility] Card Rehab Therapist [facility] Comment on above: Arrived Start: 04-08-2024 End: 04-08-2024 ambulatory [facility] Start: 04-08-2024 End: 04-08-2024 Subsequent hospital visit by physician [facility] Card Rehab Therapist [facility] Comment on above: Arrived Start: 04-06-2024 End: 04-06-2024 ambulatory [facility] Start: 04-06-2024 End: 04-06-2024 Subsequent hospital visit by physician [facility] Card Rehab Therapist [facility] Comment on above: Arrived Start: 04-05-2024 End: 04-05-2024 ambulatory [facility] Start: 04-05-2024 End: 04-05-2024 Subsequent hospital visit by physician [facility] Card Rehab Therapist [facility] Comment on above: Arrived Start: 04-01-2024 End: 04-01-2024 ambulatory [facility] Start: 04-01-2024 End: 04-01-2024 Subsequent hospital visit by physician [facility] Card Rehab Therapist [facility] Comment on above: Arrived Start: 04-01-2024 [facility] Start: 03-30-2024 End: 03-30-2024 ambulatory [facility] Start: 03-30-2024 End: 03-30-2024 Subsequent hospital visit by physician Mw Card Rehab Therapist [facility] Comment on above: Arrived Start: 03-29-2024 End: 03-29-2024 ambulatory [facility] Start: 03-29-2024 End: 03-29-2024 Subsequent hospital visit by physician Mw Card Rehab Therapist [facility] Comment on above: Arrived Start: 03-25-2024 End: 03-25-2024 ambulatory [facility] Start: 03-25-2024 End: 03-25-2024 Subsequent hospital visit by physician [facility] Card Rehab Therapist [facility] Comment on above: Arrived Start: 03-23-2024 End: 03-23-2024 ambulatory [facility] Start: 03-23-2024 End: 03-23-2024 Subsequent hospital visit by physician [facility] Card Rehab Therapist [facility] Comment on above: Arrived Start: 03-22-2024 End: 03-22-2024 ambulatory [facility] Start: 03-22-2024 End: 03-22-2024 Subsequent hospital visit by physician [facility] Card Rehab Therapist [facility] Comment on above: Arrived Start: 03-16-2024 End: 03-16-2024 Patient encounter procedure [facility] Work Phone: Start: 03-14-2024 End: 03-14-2024 [facility] Start: 03-11-[facility]24 End: 03-11-2024 ambulatory [facility] Start: 03-11-2024 End: 03-11-2024 Subsequent hospital visit by physician [facility] Card Rehab Therapist [facility] Comment on above: Arrived Start: 03-10-2024 End: 03-10-2024 Niralio silvano Gusman DPM Work Phone: [facility] Start: 03-10-2024 End: 03-10-2024 Bamboo flowslexis Gusman DPM Work Phone: [facility] Start: 03-10-2024 End: 03-10-2024 Patient encounter procedure [facility] Gusman DPM [facility] Comment on above: Idiopathic progressi ve polyneuropathy (Primary Dx); Onychomycosis Start: 03-10-2024 End: 03-10-2024 ambulatory CAROL GUSAMN Not Available Start: 03-09-2024 End: 03-09-2024 ambulatory [facility] Start: 03-09-2024 End: 03-09-2024 Subsequent hospital visit by physician [facility] Card Rehab Therapist [facility] Comment on above: Arrived Start: 03-08-2024 End: 03-08-2024 Bamboo flowsheet Natalie Marks PA Work Phone: [facility] Start: 03-08-2024 End: 03-08-2024 Bamboo flowsheet Natalie Marks PA Work Phone: [facility] Start: 03-08-2024 End: 03-08-2024 ambulatory NATALIE MARKS Not Available Start: 03-08-2024 End: 03-08-2024 Office outpatient visit 15 minutes Natalie Marks PA Work Phone: [facility] Comment on above: Other specified derm atitis (Primary Dx); History of basal cell carcinoma; Personal history of squamous cell carcinoma of skin; Seborrheic keratosis; Actinic keratosis; Neoplasm of unspecified behavior of bone, soft tissue, and skin Start: 03-08-2024 End: 03-08-2024 ambulatory [facility] Start: 03-08-2024 End: 03-08-2024 Subsequent hospital visit by physician [facility] Card Rehab Therapist [facility] Comment on above: Arrived Start: 03-04-2024 End: 03-04-2024 ambulatory [facility] Start: 03-04-2024 End: 03-04-2024 Subsequent hospital visit by physician [facility] Card Rehab Therapist [facility] Comment on above: Arrived Start: 03-03-2024 End: 03-03-2024 ambulatory [place] [place]: 03-03-2024 End: 03-03-2024 Patient encounter procedure Daniel Hair [facility] Start: 03-02-2024 End: 03-02-2024 ambulatory [facility] Start: 03-02-2024 End: 03-02-2024 Subsequent hospital visit by physician [facility] Card Rehab Therapist [facility] Comment on above: Arrived Start: 03-01-2024 End: 03-01-2024 ambulatory [facility] Start: 03-01-2024 End: 03-01-2024 Subsequent hospital visit by physician [facility] Card Rehab Therapist [facility] Comment on above: Arrived Start: 03-01-2024 ambulatory FAIZAN Heller [facility] Start: 02-24-2024 End: 02-24-2024 Pain Management Dnaiel Hair [facility] Start: 02-24-2024 End: 02-24-2024 ambulatory [facility] Start: 02-24-2024 End: 02-24-2024 Subsequent hospital visit by physician [facility] Card Rehab Therapist [facility] Comment on above: Arrived Start: 02-23-2024 End: 02-23-2024 ambulatory [facility] Start: 02-23-2024 End: 02-23-2024 Subsequent hospital visit by physician [facility] Card Rehab Therapist [facility] Comment on above: Arrived Start: 02-19-2024 End: 02-19-2024 ambulatory FAIZAN BRAGG [facility] Start: 02-19-2024 End: 02-19-2024 Subsequent hospital visit by physician [facility] Card Rehab Therapist [facility] Comment on above: Arrived Start: 02-16-2024 End: 02-16-2024 ambulatory [facility] Start: 02-16-2024 End: 02-16-2024 Subsequent hospital visit by physician [facility] Card Rehab Therapist [facility] Comment on above: Arrived Start: 02-12-2024 End: 02-12-2024 ambulatory [facility] [facility] Start: 02-12-2024 End: 02-12-2024 Subsequent hospital visit by physician Mw Card Rehab Therapist 4 [facility] Comment on above: Arrived Start: 02-10-2024 End: 02-10-2024 ambulatory [facility] Start: 02-10-2024 End: 02-10-2024 Subsequent hospital visit by physician Mw Card Rehab Therapist 4 [facility] Comment on above: Arrived Start: 02-09-2024 End: 02-09-2024 ambulatory [facility] Start: 02-09-2024 End: 02-09-2024 Subsequent hospital visit by physician Mw Card Rehab Therapist 3 [facility] Comment on above: Arrived Start: 02-05-2024 End: 02-05-2024 ambulatory [facility] Start: 02-05-2024 End: 02-05-2024 Subsequent hospital visit by physician Mw Card Rehab Therapist 3 [facility] Comment on above: Arrived Start: 02-03-2024 End: 02-03-2024 ambulatory [facility] Start: 02-03-2024 End: 02-03-2024 Subsequent hospital visit by physician [facility] Card Rehab Therapist 1 [facility] Comment on above: Arrived Start: 02-02-2024 End: 02-02-2024 ambulatory [facility] Start: 02-02-2024 End: 02-02-2024 Subsequent hospital visit by physician Mw Card Rehab Therapist 3 [facility] Comment on above: Arrived Start: 01-28-2024 End: 01-28-2024 ambulatory [facility] Work Phone: Start: 01-28-2024 End: 01-28-2024 Patient encounter procedure [facility] Physician [facility] Work Phone: Start: 01-23-2024 End: 01-23-2024 ambulatory TRES ÁLVAREZ [facility] Start: 01-22-2024 End: 01-22-2024 ambulatory Daniel Hair [place] Start: 01-22-2024 End: 01-22-2024 Patient encounter procedure Daniel Hair [facility] Start: 01-20-2024 End: 01-20-2024 ambulatory Daniel Hair [place] Start: 01-20-2024 End: 01-20-2024 Pain Management Daniel Hair [facility] Start: 12-24-2023 End: 12-24-2023 ambulatory FAIZAN BRAGG [facility] Start: 12-23-2023 End: 12-25-2023 Subsequent hospital visit by physician Wing Álvarez MD Work Phone: [facility] Comment on above: Arrived Start: 12-23-2023 End: 12-25-2023 [facility] Start: 12-22-2023 End: 12-22-2023 ambulatory [facility] Start: 12-22-2023 End: 12-22-2023 Subsequent hospital visit by physician Faizan Bragg MD Work Phone: [facility] Comment on above: Atrial flutter, unsp ecified type (HCC); Vitamin D deficiency; Encounter for lipid screening for cardiovascular disease; Fatigue, unspecified type Start: 12-17-2023 End: 12-17-2023 ambulatory Daniel Hair [place] Start: 12-17-2023 End: 12-17-2023 Patient encounter procedure Daniel Hair [facility] Start: 12-12-2023 End: 12-14-2023 ambulatory [facility] Start: 12-12-2023 End: 12-14-2023 Subsequent hospital visit by physician Wing Álvarez MD Work Phone: [facility] Cardiology Comment on above: Shortness of breath Start: 12-02-2023 End: 12-02-2023 Bamboo flowsheet Carol Gusman DPM Work Phone: [facility] Start: 12-02-2023 End: 12-02-2023 Bamboo flowsheet Carol Gusman DPM Work Phone: [facility] Start: 12-02-2023 End: 12-02-2023 Patient encounter procedure Carol Gusman DPM Work Phone: [facility] Comment on above: Idiopathic progressi ve polyneuropathy (Primary Dx); Onychomycosis Start: 12-02-2023 End: 12-02-2023 ambulatory CAROL GUSMAN Not Available Start: 11-24-2023 End: 11-24-2023 Pain Management Daniel Hair [facility] Start: 11-20-2023 Patient encounter procedure [facility] Start: 11-19-2023 End: 11-19-2023 ambulatory [facility] Work Phone: Start: 11-19-2023 End: 11-19-2023 Patient encounter procedure [facility] Work Phone: Start: 10-28-2023 End: 10-28-2023 Pain Management Daniel Hair [facility] Start: 09-17-2023 End: 09-17-2023 Pain Management Heavenly Mahoney [facility] Start: 09-08-2023 End: 09-08-2023 Pain Management Daniel Hair [facility] Start: 08-27-2023 End: 08-29-2023 ambulatory FAIZAN BRAGG [facility] Start: 08-11-2023 End: 08-11-2023 Pain Management Heavenly Denzel [facility] Start: 08-04-2023 End: 08-04-2023 Pain Management Daniel Hair [facility] Start: 07-03-2023 End: 07-03-2023 Patient encounter procedure Daniel Hair [facility] Start: 07-03-2023 End: 07-03-2023 Pain Management Daniel Hair [facility] Start: 04-11-2023 End: 04-11-2023 ambulatory Faizan Bragg Other [employer] Other Start: 04-11-2023 Patient encounter procedure Faizan Yemi [facility] Start: 04-08-2023 End: 04-08-2023 ambulatory Faizan Yemi Other [employer] Other Start: 04-08-2023 Office outpatient vi sit 15 minutes Faizan Bragg [facility] Start: 11-14-2022 End: 11-14-2022 ambulatory Faizan Bragg Other [employer] Other Start: 11-14-2022 Telephone encounter Faizan Yemi [facility] Start: 10-29-2022 End: 10-29-2022 ambulatory Faizan Bragg Other [employer] Other Start: 10-29-2022 Telephone encounter Faizan Yemi [facility] Start: 08-30-2022 End: 09-01-2022 Subsequent hospital visit by physician [facility] Additional [facility] RESPIRATORY THERAPY Comment on above: Atrial flutter, unsp ecified type (HCC); Vitamin D deficiency; Encounter for lipid screening for cardiovascular disease; Aortic valve stenosis, etiology of cardiac valve disease unspecified Atrial flutter, unsp ecified type (HCC); Vitamin D deficiency; Encounter for lipid screening for cardiovascular disease; Aortic valve stenosis, etiology of cardiac valve disease unspecified; Fatigue, unspecified type Atrial flutter, unsp ecified type (HCC); Vitamin D deficiency Start: 07-12-2022 End: 07-13-[address] FAIZAN BRAGG Facility:[facility] Start: 07-11-2022 End: 07-12-[address] FAIZAN BRAGG Facility:[facility] Start: 07-09-2022 Office outpatient vi sit 15 minutes Faizan Bragg [facility] Start: 07-09-2022 Telephone encounter Faizan Bragg [facility] Start: 07-09-2022 End: 07-10-[address] FAIZAN BRAGG [facility] [employer] Other Start: 07-01-2022 (Televisit) Televisit Faizan Bragg [facility] Start: 07-01-2022 End: 07-01-2022 ambulatory Faizan Bragg Other [employer] Other Start: 05-29-2022 End: 05-29-2022 ambulatory Faizan Bragg Other [employer] Other Start: 05-29-2022 Telephone encounter Faizan Bragg [facility] Start: 05-27-2022 End: 05-27-2022 ambulatory Faizan Bragg Other [employer] Other Start: 05-27-2022 Telephone encounter Faizan Bragg [facility] Start: 05-22-2022 Patient encounter procedure Faizan Bragg [facility] Start: 05-22-2022 End: 05-23-[address] FAIZAN BRAGG [facility] [employer] Other Start: 04-19-2022 End: 04-19-2022 ambulatory Faizan Bragg Other [facility] [employer] Other Start: 04-19-2022 Telephone encounter Faizan Bragg [facility] Start: 12-06-2021 End: 12-06-2021 Subsequent hospital visit by physician [facility] Covid19 Pat Screening Schedule [facility] Comment on above: Suspected COVID-19 v irus infection; Cough; Runny nose Start: 11-14-2021 End: 11-14-2021 Subsequent hospital visit by physician Irene BLACK Work Phone: [facility] Comment on above: Arrived Start: 11-12-2021 End: 11-12-2021 Subsequent hospital visit by physician Taya BLACK [facility] Comment on above: Arrived Start: 11-09-2021 End: 11-09-2021 Subsequent hospital visit by physician Nelly Trevizo OT [facility] Comment on above: Arrived Start: 11-07-2021 End: 11-07-2021 Subsequent hospital visit by physician Mary Brizuela OT [facility] Comment on above: Arrived Start: 11-05-2021 End: 11-05-2021 Subsequent hospital visit by physician Mary Brizuela OT [facility] Comment on above: Arrived Start: 11-02-2021 End: 11-02-2021 Subsequent hospital visit by physician Mary Brizuela OT [facility] Comment on above: Arrived Start: 10-30-2021 End: 10-30-2021 Subsequent hospital visit by physician Mary Brizuela OT [facility] Comment on above: Arrived Start: 10-29-2021 End: 10-29-2021 Subsequent hospital visit by physician Mary Brizuela OT [facility] Comment on above: Arrived Start: 10-24-2021 End: 10-24-2021 Subsequent hospital visit by physician Mary Brizuela OT [facility] Comment on above: Arrived Start: 10-23-2021 End: 10-23-2021 Admission to same day surgery center MD Faizan Bragg Work Phone: [facility] Start: 10-22-2021 End: 10-22-2021 Subsequent hospital visit by physician Taya BLACK [facility] Comment on above: Arrived Start: 10-19-2021 End: 10-19-2021 Patient encounter procedure MD Faizan Bragg Work Phone: [facility] Start: 10-19-2021 End: 10-19-2021 Subsequent hospital visit by physician Mary Brizuela OT [facility] Comment on above: Arrived Start: 10-17-2021 End: 10-17-2021 Subsequent hospital visit by physician Mary Brizuela OT [facility] Comment on above: Arrived Start: 10-16-2021 End: 10-16-2021 Subsequent hospital visit by physician Mary Brizuela OT [facility] Comment on above: Arrived Start: 10-12-2021 End: 10-12-2021 Subsequent hospital visit by physician Mary Brizuela OT [facility] Comment on above: Arrived Start: 10-08-2021 End: 10-08-2021 Subsequent hospital visit by physician Irene BLACK Work Phone: [facility] Comment on above: Arrived Start: 10-05-2021 End: 10-05-2021 Subsequent hospital visit by physician Mary Brizuela OT [facility] Comment on above: Arrived Start: 10-04-2021 End: 10-04-2021 ambulatory Mik Amaya Other [place] [employer] Other Start: 10-04-2021 [facility] visit new patient Mik Amaya [facility] Gastroenterology Start: 10-02-2021 End: 10-02-2021 Subsequent hospital visit by physician Mary Brizuela OT [facility] Comment on above: Arrived Start: 09-26-2021 End: 09-26-2021 Subsequent hospital visit by physician Mary Brizuela OT [facility] Comment on above: Arrived Start: 09-25-2021 End: 09-25-2021 Subsequent hospital visit by physician Mary Brizuela OT [facility] Comment on above: Arrived Start: 09-21-2021 End: 09-21-2021 Subsequent hospital visit by physician Mary Brizuela OT [facility] Comment on above: Arrived Start: 09-19-2021 End: 09-19-2021 Subsequent hospital visit by physician Mary Brizuela OT [facility] Comment on above: Arrived Start: 09-14-2021 End: 09-14-2021 Subsequent hospital visit by physician Irene BLACK Work Phone: [facility] Comment on above: Arrived Start: 09-12-2021 End: 09-12-2021 Subsequent hospital visit by physician Mary Brizuela OT [facility] Comment on above: Arrived Start: 09-10-2021 End: 09-10-2021 Subsequent hospital visit by physician Mary Brizuela OT [facility] Comment on above: Arrived Start: 09-07-2021 End: 09-07-2021 Subsequent hospital visit by physician Mary Brizuela OT [facility] Comment on above: Arrived Start: 09-05-2021 End: 09-05-2021 Subsequent hospital visit by physician Mary Brizuela OT [facility] Comment on above: Arrived Start: 09-04-2021 End: 09-04-2021 Subsequent hospital visit by physician Mary Brizuela OT [facility] Comment on above: Arrived Start: 09-03-2021 End: 09-03-2021 Subsequent hospital visit by physician Faizan rBagg MD Work Phone: [facility] Comment on above: Vitamin D deficiency ; Encounter for lipid screening for cardiovascular disease; Atrial flutter, unspecified type (HCC) Start: 08-22-2021 Adult health examination Mignon Bragg Other [employer] Other Start: 08-22-2021 End: 08-23-[address] FAIZAN BRAGG Facility: Start: 07-16-2021 End: 07-17-2021 [facility] Start: 07-13-2021 Telephone encounter Ketan Manzanares MD Work Phone: Hematology/Oncology Comment on above: Care Coordination (a ppointment question) Start: 07-06-2021 Telephone encounter Ruben Tellez RN Hematology/Oncology Comment on above: Results Start: 07-02-2021 Telephone encounter Ketan Manzanares MD Work Phone: [facility] Comment on above: Referral Information (GI) Start: 07-02-2021 End: 07-02-2021 ambulatory Ketan Manzanares MD Work Phone: Hematology/Oncology Comment on above: Normocytic anemia (P rimary Dx); MGUS (monoclonal gammopathy of unknown significance) Start: 07-02-2021 End: 07-02-2021 Patient encounter procedure Ketan Manzanares MD Work Phone: [facility] Start: 12-14-2020 End: 12-14-2020 Subsequent hospital visit by physician Faizan Bragg MD Work Phone: [facility] Comment on above: Fatigue, unspecified type; Leg edema; Discoloration of skin of lower leg Start: 12-14-2020 End: 12-14-2020 Subsequent hospital visit by physician Faizan Bragg MD Work Phone: [facility] Comment on above: Abnormal EKG Start: 10-23-2020 End: 10-23-2020 Subsequent hospital visit by physician Faizan Bragg MD Work Phone: [facility]PIRATORY [facility]ER[facility] Comment on above: Abnormal EKG Start: 10-23-2020 End: 10-23-2020 Subsequent hospital visit by physician Faizan Bragg MD Work Phone: [facility] Comment on above: Atrioventricular sep tammy defect (AVSD); Aortic valve stenosis, etiology of cardiac valve disease unspecified; Atrial flutter, unspecified type (HCC); Abnormal EKG; Encounter for lipid screening for cardiovascular disease; Vitamin D deficiency; Fatigue, unspecified type Start: 10-20-2020 End: 10-20-2020 Emergency department patient visit Pamela Montoya MD Work Phone: [facility] ED Comment on above: Vasculitis (HCC) (Pr imary Dx); Essential hypertension; Peripheral edema; Chronic obstructive pulmonary disease, unspecified COPD type (HCC) Start: 08-11-2020 End: 08-11-2020 Subsequent hospital visit by physician [facility] Covid19 Pat Screening Schedule [facility] PRE ADMIT Comment on above: Arrived Start: 08-08-2020 End: 08-08-2020 Subsequent hospital visit by physician [facility] Echo [facility] ECHO Comment on above: Atrioventricular sep tammy defect (AVSD); Aortic valve stenosis, etiology of cardiac valve disease unspecified Start: 07-27-2020 End: 07-29-2020 Preprocedural examination done [address] Radiology Start: 07-27-2020 End: 07-29-2020 Subsequent hospital visit by physician [place] [id number] [facility] RESPIRATORY THERAPY Comment on above: Atrioventricular sep tammy defect (AVSD); Aortic valve stenosis, etiology of cardiac valve disease unspecified; Atrial flutter, unspecified type (HCC); Abnormal EKG; Encounter for lipid screening for cardiovascular disease; Vitamin D deficiency Abnormal EKG; Pre-op evaluation; Encounter for lipid screening for cardiovascular disease; Fatigue, unspecified type Start: 06-28-2020 End: 06-30-2020 Subsequent hospital visit by physician [facility] M[facility] MRI Comment on above: Arrived Start: 04-25-2020 End: 04-25-2020 Orders Only Abdifatah Banuelos Work Phone: [facility] Start: 12-24-2019 End: 12-24-2019 Subsequent hospital visit by physician Maribel Villegas [facility] Start: 12-22-2019 End: 12-22-2019 Subsequent hospital visit by physician Kate Rivera [facility] Physical Therapy Comment on above: No Show Start: 12-21-2019 End: 12-21-2019 Subsequent hospital visit by physician Gary Mcnamara [facility] Physical Therapy Comment on above: Canceled (Error) Start: 12-16-2019 End: 12-16-2019 Subsequent hospital visit by physician Kate Rivera [facility] Physical Therapy Comment on above: Arrived Start: 12-15-2019 End: 12-15-2019 Subsequent hospital visit by physician Kate Rivera [facility] Physical Therapy Comment on above: Arrived Start: 12-13-2019 End: 12-13-2019 Subsequent hospital visit by physician Gary Mcnamara [facility] Physical Therapy Comment on above: Arrived Start: 12-10-2019 End: 12-10-2019 Subsequent hospital visit by physician [facility] Comment on above: Arrived Start: 12-08-2019 End: 12-08-2019 Subsequent hospital visit by physician Gary [facility] Comment on above: Arrived Start: 12-03-2019 End: 12-03-2019 Subsequent hospital visit by physician Gary [facility] Comment on above: Arrived Start: 12-01-2019 End: 12-01-2019 Subsequent hospital visit by physician Gary [facility] Comment on above: Arrived Start: 11-29-2019 End: 11-29-2019 Subsequent hospital visit by physician Kate [facility] Comment on above: Arrived Start: 11-03-2019 End: 11-04-2019 Patient encounter procedure NITA JEWELL HERNANDEZ [facility] Start: 11-03-2019 End: 11-03-2019 Subsequent hospital visit by physician Nita Hernandez Work Phone: [facility] MRI Comment on above: Bilateral optic atro phy Start: 10-18-2019 End: 10-22-2019 Patient encounter procedure NITA JEWELL HERNANDEZ [facility] Start: 09-18-2019 End: 09-18-2019 Emergency department patient visit Gurdeep Velasquez Work Phone: [facility] ED Comment on above: Compression fracture of thoracic vertebra, initial encounter, unspecified thoracic vertebral level (HCC) (Primary Dx); Closed head injury, initial encounter Start: 04-01-2017 Ambulatory SANDY MURILLO Fac ility:[facility] Procedures Date Procedure Procedure Detail Performing Clinician Start: 11-10-2024 End: 11-10-2024 CRYOTHERAPY SKIN LESION Natalie RIOS Work Phone: Start: 08-06-2024 Assay of prostate specific antigen total Sharee Evans MD Work Phone: Start: 06-23-2024 Radiologic exam chest 2 views Miesha albright SENIOR CLINICAL DATA MANAGER - CRUSHER Work Phone: Start: 06-14-2024 CRYOTHERAPY SKIN LESION Natalie RIOS Work Phone: Start: 04-29-2024 Radiologic exam chest 2 views Miesha albright SENIOR CLINICAL DATA MANAGER - CRUSHER Work Phone: Start: 04-26-2024 Comprehensive metabolic panel Wing amaya MD Work Phone: Start: 04-26-2024 Lipid panel Wing Álvarez MD Work Phone: Start: 03-08-2024 SKIN / NAIL BIOPSY Natalie RIOS Work Phone: Start: 03-08-2024 CRYOTHERAPY SKIN LESION Natalie RIOS Work Phone: Start: 02-24-2024 Injection into facet joint of cervical spine using fluoroscopic guidance Daniel Hair Start: 01-20-2024 Injection of facet joint using fluoroscopic guidance Daniel Hair Comment on above: C5-7 Start: 12-23-2023 Myocardial spect multiple studies Wing Álvarez MD Work Phone: Start: 12-22-2023 Comprehensive metabolic panel Wing amaya MD Work Phone: Start: 12-22-2023 Lipid panel Wing Álvarez MD Work Phone: Start: 12-12-2023 Echo tthrc r-t 2d w/wom-mode compl spec&colr d Wing Álvarez MD Work Phone: Start: 11-24-2023 Radiofrequency ablation of medial branch of cervical nerve using fluoroscopic guidance Daniel Hair Comment on above: 50% relief to current Start: 10-28-2023 Radiofrequency ablation of medial branch of cervical nerve using fluoroscopic guidance Daniel Hair Comment on above: 50% relief to current Start: 09-08-2023 Injection into facet joint of cervical spine using fluoroscopic guidance Heavenly Mahoney Comment on above: 80% relief Start: 08-04-2023 Injection into facet joint of cervical spine using fluoroscopic guidance Heavenly Mahoney Comment on above: 80% relief Start: 08-30-2022 Ecg routine ecg w/least 12 lds w/i&r Wing Álvarez MD Work Phone: Start: 08-30-2022 Radiologic exam chest 2 views Wing amaya MD Work Phone: Start: 08-30-2022 Comprehensive metabolic panel Wing amaya MD Work Phone: Start: 08-30-2022 Lipid panel Wing Álvarez MD Work Phone: Start: 08-30-2022 PATIENT FASTING? Wing Álvarez MD Work Phone: Start: 05-22-[address] FAIZAN BRAGG Comment on above: Performed By: #### [facility]ASC #### [facility] [address] [place] [address] Dr. Carolina Nam Start: 12-06-2021 COVID-19, RAPID Zenia Ida Bauman SENIOR CLINICAL DATA MANAGER - CRUSHER Work Phone: Start: 10-23-2021 Esophagogastroduodenoscopy MD Faizan banks Work Phone: Start: 09-03-2021 Ecg routine ecg w/least 12 lds w/i&r Wing Álvarez MD Work Phone: Start: 12-14-2020 Assay of ferritin Wing Álvarez MD Work Phone: Start: 12-14-2020 C-reactive protein Wing Álvarez MD Work Phone: Start: 12-14-2020 Urnls dip stick/tablet rgnt auto w/o microscopy Wing Álvarez MD Work Phone: Start: 12-14-2020 VITAMIN B12 & FOLATE Wing Álvarez MD Work Phone: Start: 12-14-2020 Ecg routine ecg w/least 12 lds w/i&r Wing Álvarez MD Work Phone: Start: 12-14-2020 Comprehensive metabolic panel Wing amaya MD Work Phone: Start: 10-23-2020 Ecg routine ecg w/least 12 lds w/i&r Wing Álvarez MD Work Phone: Start: 10-20-2020 Radiologic exam chest 2 views Pamela Arias MD Work Phone: Start: 10-20-2020 Ecg routine ecg w/least 12 lds w/i&r Pamela Montoya MD Work Phone: Start: 10-20-2020 Natriuretic peptide Pamela Montoya MD Work Phone: Start: 08-11-2020 COVID-19, RAPID Faizan Bragg MD Work Phone: Start: 07-27-2020 Ecg routine ecg w/least 12 lds w/i&r Wing Álvarez MD Work Phone: Start: 07-27-2020 Radiologic exam chest 2 views Wing amaya MD Work Phone: Start: 07-27-2020 Basic metabolic panel calcium total Torrey Griggs MD Work Phone: Start: 06-28-2020 Mri spinal canal lumbar w/o contrast material Norman Brian Michelle Work Phone: Start: 11-03-2019 Mri brain brain stem w/o w/contrast material iNta Hernandez Work Phone: Start: 09-18-2019 Ct thoracic spine w/o contrast material Gurdeep Ron Work Phone: Start: 09-18-2019 Ct cervical spine w/o contrast material Gurdeep Ron Work Phone: Start: 09-18-2019 Ct head/brain w/o contrast material Gurdeep Ron Work Phone: Start: 06-29-2014 History and physical examination, administrative Faizan Bragg Other Start: 06-29-2014 Screening for malignant neoplasm of prostate Faizan Bragg Other Screening for malign ant neoplasm of prostate Faizan Bragg Other Plan of Treatment Date Care Activity Detail Author Start: 12-29-2025 DTaP/Tdap/Td vaccine (2 - Td or Tdap) DTaP/Tdap/Td vaccine (2 - Td or Tdap) [facility] Start: 12-29-2025 DTaP/Tdap/Td vaccine (2 - Td) DTaP/Tdap/Td vaccine (2 - Td) [place], [place] Start: 12-29-2025 Tetanus vaccination Tetanus: Every 10yrs [facility] Start: 04-28-2025 End: 04-28-2025 Patient encounter procedure 04/28/2025 9:30 AM EST Office Visit [facility] [employer] Supervisor [address] [place] [id number] Miesha Clark, SENIOR CLINICAL DATA MANAGER - CRUSHER [address] [place] [address] 1 year follow up labs ekg cxr [facility] [employer] Supervisor Comment on above: 1 year follow up labs ekg cxr Start: 04-26-2025 Lipid panel Lipids [facility] Start: 03-11-2025 End: 03-11-2025 Patient encounter procedure 03/11/2025 11:30 AM EST Office Visit [facility] [address] [place] [phone] Natalie Marks, PA [address] [facility] [address] [place] [address] [facility] Start: 03-11-2025 End: 03-11-2025 Patient encounter procedure [facility] Start: 01-27-2025 End: 01-27-2025 Patient encounter procedure [facility] Start: 12-21-2024 Lipid panel Lipids [facility] Start: 11-29-2024 Influenza vaccination Influenza Vaccine (#1) [facility] Start: 11-18-2024 End: 11-18-2024 Patient encounter procedure 11/18/2024 2:15 PM EDT Office Visit [facility] [address] [place] [address] Carol Gusman, DPM [address] [facility] [place] [address] Arrived [facility] Comment on above: Arrived Start: 11-10-2024 End: 11-10-2024 Patient encounter procedure 11/10/2024 10:50 AM EDT Office Visit [facility] [address] [place] [id number] Natalie Marks, PA [address] [place] [address] [facility] Comment on above: Arrived Start: 09-27-2024 End: 09-27-2024 Patient encounter procedure [facility] Comment on above: Arrived Start: 08-31-2024 End: 08-31-2024 Patient encounter procedure [facility] [employer] Comment on above: 1 year follow up labs ekg cxr Start: 08-16-2024 End: 08-16-2024 Patient encounter procedure 08/16/2024 9:30 AM EDT Office Visit [address] [place] [id number] Sharee Evans MD [address] [place] [address], [address] [place] [address] 6 month psa [facility] Comment on above: 6 month psa Start: 07-29-2024 End: 07-29-2024 Patient encounter procedure [facility] Comment on above: Arrived Start: 07-15-2024 End: 07-15-2024 Patient encounter procedure [facility] Comment on above: Arrived Start: 07-02-2024 DIABETES SCREEN DIABETES SCREEN [facility] Start: 06-14-2024 End: 06-14-2024 Patient encounter procedure [facility] Comment on above: Arrived Start: 06-02-2024 Shingles vaccine (2 of 2) Shingles vaccine (2 of 2) [facility] Start: 05-17-2024 End: 05-17-2024 Patient encounter procedure 05/17/2024 9:00 AM EST Appointment [facility] [address] [place] [address] [facility] Start: 05-13-2024 End: 05-13-2024 Patient encounter procedure [facility] Comment on above: Arrived Start: 05-11-2024 End: 05-11-2024 Patient encounter procedure 05/11/2024 9:00 AM EST Appointment [facility] [address] [place] [address] [facility] Start: 05-10-2024 End: 05-10-2024 Patient encounter procedure 05/10/2024 9:00 AM EST Appointment [facility] [address] [place] [address] [facility] Start: 05-06-2024 End: 05-06-2024 Patient encounter procedure 05/06/2024 9:00 AM EST Appointment [facility] [address] [place] [address] [facility] Start: 05-04-2024 End: 05-04-2024 Patient encounter procedure 05/04/2024 9:00 AM EST Appointment [facility] [address] [place] [address] [facility] Start: 05-03-2024 End: 05-03-2024 Patient encounter procedure 05/03/2024 9:00 AM EST Appointment [facility] [address] [place] [address] [facility] Start: 04-29-2024 End: 04-29-2024 Patient encounter procedure [facility] [facility] Comment on above: 3 mth follow up labs Start: 04-27-2024 End: 04-27-2024 Patient encounter procedure 04/27/2024 9:00 AM EST Appointment [facility] [address] [place] [address] [facility] Start: 04-26-2024 End: 04-26-2024 Patient encounter procedure 04/26/2024 9:00 AM EST Appointment [facility] [address] [place] [address] [facility] Start: 04-22-2024 End: 04-22-2024 Patient encounter procedure 04/22/2024 9:00 AM EST Appointment [facility] [address] [place] [address] [facility] Start: 04-20-2024 End: 04-20-2024 Patient encounter procedure 04/20/2024 9:00 AM EST Appointment [facility] [address] [place] [address] [facility] Start: 04-19-2024 End: 04-19-2024 Patient encounter procedure 04/19/2024 9:00 AM EST Appointment [facility] [address] [place] [address] [facility] Start: 04-15-2024 End: 04-15-2024 Patient encounter procedure 04/15/2024 9:00 AM EST Appointment [facility] [address] [place] [address] [facility] Start: 04-13-2024 End: 04-13-2024 Patient encounter procedure 04/13/2024 9:00 AM EST Appointment [facility] [address] [place] [address] [facility] Start: 04-12-2024 End: 04-12-2024 Patient encounter procedure 04/12/2024 9:00 AM EST Appointment [facility] [address] [place] [address] [facility] Start: 04-08-2024 End: 04-08-2024 Patient encounter procedure 04/08/2024 9:00 AM EST Appointment [facility] [address] [place] [address] [facility] Start: 04-06-2024 End: 04-06-2024 Patient encounter procedure 04/06/2024 9:00 AM EST Appointment [facility] [address] [place] [address] [facility] Start: 04-05-2024 End: 04-05-2024 Patient encounter procedure 04/05/2024 9:00 AM EST Appointment [facility] [address] [place] [address] [facility] Start: 04-01-2024 End: 04-01-2024 Patient encounter procedure 04/01/2024 9:00 AM EST Appointment [facility] [address] [place] [address] [facility] Start: 03-30-2024 End: 03-30-2024 Patient encounter procedure 03/30/2024 9:00 AM EST Appointment [facility] [address] [place] [address] [facility] Start: 03-29-2024 End: 03-29-2024 Patient encounter procedure 03/29/2024 9:00 AM EST Appointment [facility] [address] [place] [address] [facility] Start: 03-25-2024 End: 03-25-2024 Patient encounter procedure 03/25/2024 9:00 AM EST Appointment [facility] [address] [place] [address] [facility] Start: 03-23-2024 End: 03-23-2024 Patient encounter procedure 03/23/2024 9:00 AM EST Appointment [facility] [address] [place] [address] [facility] Start: 03-22-2024 End: 03-22-2024 Patient encounter procedure 03/22/2024 9:00 AM EST Appointment [facility] [address] [place] [address] [facility] Start: 03-18-2024 End: 03-18-2024 Patient encounter procedure 03/18/2024 9:00 AM EST Appointment [facility] [address] [place] [address] [facility] Start: 03-16-2024 End: 03-16-2024 Patient encounter procedure 03/16/2024 9:00 AM EST Appointment [facility] [address] [place] [address] [facility] Start: 03-15-2024 End: 03-15-2024 Patient encounter procedure 03/15/2024 9:00 AM EST Appointment [facility] [address] [place] [address] [facility] Start: 03-11-2024 End: 03-11-2024 Patient encounter procedure 03/11/2024 9:00 AM EST Appointment [facility] [address] [place] [address] [facility] Start: 03-10-2024 End: 03-10-2024 Patient encounter procedure [facility] Comment on above: Arrived Start: 03-09-2024 End: 03-09-2024 Patient encounter procedure 03/09/2024 9:00 AM EST Appointment [facility] [address] [place] [address] [facility] Start: 03-08-2024 End: 03-08-2024 Patient encounter procedure [facility] Start: 03-04-2024 End: 03-04-2024 Patient encounter procedure 03/04/2024 9:00 AM EST Appointment [facility] [address] [place] [address] [facility] Start: 03-02-2024 End: 03-02-2024 Patient encounter procedure [facility] Start: 03-01-2024 End: 03-01-2024 Patient encounter procedure [facility] Start: 02-24-2024 End: 02-24-2024 Patient encounter procedure 02/24/2024 9:00 AM EST Appointment [facility] [address] [place] [address] [facility] Start: 02-23-2024 End: 02-23-2024 Patient encounter procedure 02/23/2024 9:00 AM EST Appointment [facility] [address] [place] [address] [facility] Start: 02-19-2024 End: 02-19-2024 Patient encounter procedure 02/19/2024 9:00 AM EST Appointment [facility] [address] [facility] [place] [address] [facility] Start: 02-17-2024 End: 02-17-2024 Patient encounter procedure 02/17/2024 9:00 AM EST Appointment [facility] [address] [facility] [place] [address] [facility] Start: 02-16-2024 End: 02-16-2024 Patient encounter procedure [facility] Comment on above: elevated psa Start: 02-12-2024 End: 02-12-2024 Patient encounter procedure 02/12/2024 9:00 AM EST Appointment [facility] [address] [facility] [place] [address] [facility] Start: 02-10-2024 End: 02-10-2024 Patient encounter procedure 02/10/2024 9:00 AM EST Appointment [facility] [address] [facility] [place] [address] [facility] Start: 02-09-2024 End: 02-09-2024 Patient encounter procedure 02/09/2024 9:00 AM EST Appointment [facility] [address] [facility] [place] [address] [facility] Start: 02-05-2024 End: 02-05-2024 Patient encounter procedure 02/05/2024 9:00 AM EST Appointment [facility] [address] [place] [address] [facility] Start: 01-23-2024 End: 01-23-2024 Patient encounter procedure 01/23/2024 10:00 AM EDT Procedure visit [facility] [employer] [facility] [address] [place] [address] Wing Álvarez MD [address] [facility] [place] [address] Left heart cath--Dr. Álvarez @ [facility]--Not scheduled with Kelli--No pre cert needed MEDICARE [facility] [employer] Comment on above: Left heart cath--Dr. Álvarez @ [facility]--Not scheduled with Kelli--No pre cert needed MEDICARE Start: 12-24-2023 End: 12-24-2023 Patient encounter procedure 12/24/2023 10:00 AM EDT Office Visit [facility] [facility] [address] [phone] Wing Álvarez MD [address] [phone] c/o sob this date per dr Heller [employer] Supervisor Comment on above: c/o sob this date per Start: 12-23-2023 Subsequent hospital visit by physician 12/23/2023 8:00 AM EDT Hospital Encounter [facility] Cardiology [address] [place] [address] Wing Álvarez MD [address] [place] [address] [facility] Start: 12-23-2023 End: 12-23-2023 Patient encounter procedure [facility] Nuclear Medicine Comment on above: EPIC // PATIENT Lexiscan....EPIC // PATIENT Start: 12-02-2023 End: 12-02-2023 Patient encounter procedure 12/02/2023 10:15 AM EDT Procedure Visit [facility] [address] [place] [phone] Carol Gusman DPM [address] [place] [address] Arrived [facility] Comment on above: Arrived Start: 11-30-2023 COVID-19 Vaccine () COVID-19 Vaccine () [facility] Start: 11-30-2023 COVID-19 Vaccine ( season) COVID-19 Vaccine ( season) [facility] Start: 11-30-2023 Influenza vaccination Influenza Vaccine (#1) [facility] Start: 10-30-2023 Influenza vaccination Flu vaccine (#1) [facility] Start: 02-24-2023 Annual Wellness Visit (Medicare) Annual Wellness Visit (Medicare) [facility] Start: 11-15-2022 End: 11-15-2022 Admission to same day surgery center 11/15/2022 Surgery IP Unit Janey Rivera I, [address] [place] [address] COLORECTAL CANCER SCREENING, HIGH RISK-DIAGNOSTIC [facility] Comment on above: COLORECTAL CANCER SCREENING, HIGH RISK-D IAGNOSTIC Start: 11-15-2022 End: 11-15-2022 Colonoscopy flx dx w/collj spec when pfrmd COLORECTAL CANCER SCREENING, HIGH RISK Colon wall thickening 11/15/2022 9:00 AM EDT [facility] Start: 11-15-2022 Subsequent hospital visit by physician 11/15/2022 Hospital Encounter IP Unit Janey Rivera I, [address] [place] [address] [facility] Start: 09-03-2022 End: 09-03-2022 Patient encounter procedure 09/03/2022 Office Visit Cardiology Wing Álvarez MD [address] [place] [address] [facility] [employer] Start: 01-29-2022 Pneumococcal 65+ years Vaccine (2 - PCV) Pneumococcal 65+ years Vaccine (2 - PCV) [facility] Start: 01-29-2022 Pneumococcal Vaccine: 65+ Years (2 of 2 - PCV) Pneumococcal Vaccine: 65+ Years (2 of 2 - PCV) [facility] Start: 12-14-2021 Creatinine measurement Creatinine monitoring [facility] Work Phone: Start: 12-14-2021 Potassium monitoring Potassium monitoring [facility] Work Phone: Start: 11-29-2021 Influenza vaccination [facility] Start: 11-22-2021 Subsequent hospital visit by physician 11/22/2021 Hospital Encounter Occupational Therapy Irene Cordero OTA [address] [place] [address] [facility] Start: 11-21-2021 End: 11-21-2021 Patient encounter procedure 11/21/2021 Appointment Occupational Therapy Irene Cordero OTA [address] [place] [address] [facility] Start: 11-19-2021 End: 11-19-2021 Patient encounter procedure 11/19/2021 Appointment Occupational Therapy Irene Cordero OTA [address] [place] [address] [facility] Start: 11-16-2021 End: 11-16-2021 Patient encounter procedure 11/16/2021 Appointment Occupational Therapy Mary Brizuela OT [facility] Start: 11-16-2021 Subsequent hospital visit by physician 11/16/2021 Hospital Encounter Occupational Therapy Irene Cordero OTA [address] [place] [address] [facility] Start: 11-14-2021 End: 11-14-2021 Patient encounter procedure [facility] Start: 11-12-2021 End: 11-12-2021 Patient encounter procedure [facility] Start: 11-09-2021 End: 11-09-2021 Patient encounter procedure 11/09/2021 Appointment Occupational Therapy Mary Brizuela OT [facility] Start: 11-09-2021 Subsequent hospital visit by physician 11/09/2021 Hospital Encounter Occupational Therapy Nelly Trevizo OT [facility] Start: 11-07-2021 End: 11-07-2021 Patient encounter procedure 11/07/2021 Appointment Occupational Therapy Mary Brizuela OT [facility] Start: 11-05-2021 End: 11-05-2021 Patient encounter procedure 11/05/2021 Appointment Occupational Therapy Mary Brizuela OT [facility] Start: 11-02-2021 End: 11-02-2021 Patient encounter procedure 11/02/2021 Appointment Occupational Therapy Mary Brizuela OT [facility] Start: 10-30-2021 End: 10-30-2021 Patient encounter procedure 10/30/2021 Appointment Occupational Therapy Mary Brizuela OT [facility] Start: 10-29-2021 End: 10-29-2021 Patient encounter procedure 10/29/2021 Appointment Occupational Therapy Mary Brizuela OT [facility] Start: 10-26-2021 End: 10-26-2021 Patient encounter procedure 10/26/2021 Appointment Occupational Therapy Irene Cordero OTA [address] [place] [address] [place] [address] [facility] Start: 10-24-2021 End: 10-24-2021 Patient encounter procedure 10/24/2021 Appointment Occupational Therapy Mary Brizuela OT [facility] Start: 10-23-2021 [facility] Work Phone: Start: 10-23-2021 End: 10-23-2021 Patient encounter procedure 10/23/2021 Appointment Occupational Therapy Taya Carnes OTA [facility] Start: 10-22-2021 End: 10-22-2021 Patient encounter procedure 10/22/2021 Appointment Occupational Therapy Taya Carnes OTA [facility] Start: 10-20-2021 Creatinine measurement Creatinine monitoring [facility] Work Phone: Start: 10-20-2021 Potassium monitoring Potassium monitoring [facility] Work Phone: Start: 10-19-2021 End: 10-19-2021 Patient encounter procedure 10/19/2021 Appointment Occupational Therapy Mary Brizuela OT [facility] Start: 10-17-2021 End: 10-17-2021 Patient encounter procedure 10/17/2021 Appointment Occupational Therapy Mary Brizuela OT [facility] Start: 10-16-2021 End: 10-16-2021 Patient encounter procedure 10/16/2021 Appointment Occupational Therapy Mary Brizuela OT [facility] Start: 10-12-2021 End: 10-12-2021 Patient encounter procedure 10/12/2021 Appointment Occupational Therapy Mary Brizuela OT [facility] Start: 10-09-2021 End: 10-09-2021 Patient encounter procedure 10/09/2021 Appointment Occupational Therapy Mary Brizuela OT [facility] Start: 10-08-2021 End: 10-08-2021 Patient encounter procedure 10/08/2021 Appointment Occupational Therapy Irene Cordero OTA [address] [place] [address] [facility] Start: 10-05-2021 End: 10-05-2021 Patient encounter procedure 10/05/2021 Appointment Occupational Therapy Mary Brizuela OT [facility] Start: 10-02-2021 End: 10-02-2021 Patient encounter procedure 10/02/2021 Appointment Occupational Therapy Mary Brizuela OT [facility] Start: 09-28-2021 End: 09-28-2021 Patient encounter procedure 09/28/2021 Appointment Occupational Therapy Irene Cordero OTA [address] [place] [address] [facility] Start: 09-26-2021 End: 09-26-2021 Patient encounter procedure 09/26/2021 Appointment Occupational Therapy Mary Brizuela OT [facility] Start: 09-25-2021 End: 09-25-2021 Patient encounter procedure 09/25/2021 Appointment Occupational Therapy Mary Brizuela OT [facility] Start: 09-21-2021 End: 09-21-2021 Patient encounter procedure 09/21/2021 Appointment Occupational Therapy Mary Brizuela OT [facility] Start: 09-19-2021 End: 09-19-2021 Patient encounter procedure 09/19/2021 Appointment Occupational Therapy Mary Brizuela OT [facility] Start: 09-18-2021 End: 09-18-2021 Patient encounter procedure 09/18/2021 Appointment Occupational Therapy Mary Brizuela OT [facility] Start: 09-14-2021 End: 09-14-2021 Patient encounter procedure [facility] Start: 09-12-2021 End: 09-12-2021 Patient encounter procedure 09/12/2021 Appointment Occupational Therapy Mary Brizuela OT [facility] Start: 09-10-2021 End: 09-10-2021 Patient encounter procedure 09/10/2021 Appointment Occupational Therapy Mary Brizuela OT [facility] Start: 09-07-2021 End: 09-07-2021 Patient encounter procedure 09/07/2021 Appointment Occupational Therapy Mary Brizuela OT [facility] Start: 09-05-2021 End: 09-05-2021 Patient encounter procedure 09/05/2021 Appointment Occupational Therapy Mary Brizuela OT [facility] Start: 09-04-2021 End: 09-04-2021 Patient encounter procedure [facility] Start: 07-02-2021 End: 07-02-2022 C reactive protein [Mass/volume] in Serum or Plasma [facility] Work Phone: Comment on above: Expected: 07/02/2021, Expires: Start: 07-02-2021 End: 07-02-2022 Erythrocyte sedimentation rate [facility] Work Phone: Comment on above: Expected: 07/02/2021, Expires: Start: 07-02-2021 End: 07-02-2022 Erythropoietin (EPO) [Units/volume] in Serum or Plasma [facility] Work Phone: Comment on above: Expected: 07/02/2021, Expires: Start: 07-02-2021 End: 07-02-2022 Haptoglobin [Mass/volume] in Serum or Plasma [facility] Work Phone: Comment on above: Expected: 07/02/2021, Expires: Start: 07-02-2021 End: 07-02-2022 MONOCLONAL PROTEIN, SERUM (BLOOD) [facility] Work Phone: Comment on above: Expected: 07/02/2021, Expires: 3 Start: 07-02-2021 End: 09-01-2021 PROTEIN ELECTROPHORESIS SERUM W/INTERP [facility] Work Phone: Comment on above: Expected: 07/02/2021, Expires: 2 Start: 07-02-2021 End: 09-01-2021 Thyrotropin [Units/volume] in Serum or Plasma [facility] Work Phone: Comment on above: Expected: 07/02/2021, Expires: 2 Start: 07-02-2021 End: 07-02-2022 VITAMIN B12 BLOOD [facility] Work Phone: Comment on above: Expected: 07/02/2021, Expires: 3 Start: 05-07-2021 COVID-19 Vaccine (4 - Booster for Pfizer series) COVID-19 Vaccine (4 - Booster for Pfizer series) [facility] Start: 03-31-2021 ADVANCE DIRECTIVE DISCUSSION ADVANCE DIRECTIVE DISCUSSION [facility] Start: 03-01-2021 COVID-19 Vaccine (4 - Booster for Pfizer series) COVID-19 Vaccine (4 - Booster for Pfizer series) [facility] Start: 02-14-2021 End: 02-14-2021 Patient encounter procedure 02/14/2021 Office Visit Cardiology Wing Álvarez MD [address] [place] [address] [facility] [facility] Start: 12-14-2020 End: 12-14-2020 Patient encounter procedure 12/14/2020 Office Visit Cardiology Wing Álvarez MD [address] [place] [address] [facility] [employer] Start: 11-29-2020 Influenza vaccination [facility] Work Phone: Start: 10-30-2020 End: 10-30-2020 Patient encounter procedure 10/30/2020 Office Visit Cardiology Wing Álvarez MD [address] [place] [address] [phone] [facility] Start: 12-24-2019 End: 12-24-2019 Appointment 12/24/2019 Appointment Physical Therapy Maribel Villegas [employer] [facility] Start: 12-22-2019 End: 12-22-2019 Appointment 12/22/2019 Appointment Physical Therapy Kate Rivera, PT [facility] Start: 12-21-2019 End: 12-21-2019 Appointment 12/21/2019 Appointment Physical Therapy 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 [facility] Start: 12-16-2019 End: 12-16-2019 Appointment 12/16/2019 Appointment Physical Therapy Kate Rivera, PT [facility] Start: 12-15-2019 End: 12-15-2019 Appointment 12/15/2019 Appointment Physical Therapy Kate Rivera PT [facility] Start: 12-13-2019 End: 12-13-2019 Appointment 12/13/2019 Appointment Physical Therapy 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 [facility] Start: 12-10-2019 End: 12-10-2019 Appointment 12/10/2019 Appointment Physical Therapy 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 [facility] Start: 12-08-2019 End: 12-08-2019 Appointment 12/08/2019 Appointment Physical Therapy 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 [facility] Start: 12-03-2019 End: 12-03-2019 Appointment 12/03/2019 Appointment Physical Therapy 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 [facility] Start: 12-01-2019 End: 12-01-2019 Appointment 12/01/2019 Appointment Physical Therapy 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 [facility] Start: 11-30-2019 Influenza vaccination [facility] [place] Start: 11-30-2019 Influenza vaccination given Sequential Influenza Vaccine (#1) [facility] Start: 09-18-2019 Annual Wellness Visit (AWV) Annual Wellness Visit (AWV) [facility] Start: 11-26-2016 Pneumococcal 65+ years Vaccine (2 - PCV) Pneumococcal 65+ years Vaccine (2 - PCV) [facility] Start: 2016 Respiratory Syncytial Virus (RSV) or age 60 yrs+ (1 - 1-dose 75+ series) Respiratory Syncytial Virus (RSV) or age 60 yrs+ (1 - 1-dose 75+ series) [facility] Start: 2016 Respiratory Syncytial Virus Immunization: Risk, 60-74 Risk, or 75+ (1 - 1-dose 75+ series) Respiratory Syncytial Virus Immunization: Risk, 60-74 Risk, or 75+ (1 - 1-dose 75+ series) [facility] Start: 2006 Fall risk assessment Falls Risk Assessment [facility] Start: 2006 Pneumococcal 65+ years Vaccine (1 of 1 - PPSV23) Pneumococcal 65+ years Vaccine (1 of 1 - PPSV23) [place], [place] Start: 2006 Pneumococcal vaccination Pneumococcal Vaccine Age 65+ (1 of 2 - PCV13) [facility] Start: 2006 PNEUMOVAX AGE 65 AND OVER WITH 5YR LOOKBACK (#1) PNEUMOVAX AGE 65 AND OVER WITH 5YR LOOKBACK (#1) [facility] Start: 2001 Respiratory Syncytial Virus (RSV) or age 60 yrs+ (1 - 1-dose 60+ series) Respiratory Syncytial Virus (RSV) or age 60 yrs+ (1 - 1-dose 60+ series) [facility] Start: 1991 Administration of herpes zoster vaccine Zoster Vaccines (1 of 2) [facility] Start: 1991 Shingles Vaccine (1 of 2) Shingles Vaccine (1 of 2) [facility] Start: 1991 SHINGRIX VACCINE (1 of 2) SHINGRIX VACCINE (1 of 2) [facility] Start: 1960 Urine microalbumin profile DTAP,TDAP,TD (1 - Tdap) [facility] Start: 1959 Hepatitis C antibody, confirmatory test Hepatitis C Screening [facility] Start: 1957 COVID-19 Vaccine (1 of 2) COVID-19 Vaccine (1 of 2) [facility] Start: 1953 Adolescent depression screening assessment [facility] Start: 1953 Depression Screen Depression Screen [facility] Start: 1953 Depression screening using PHQ-9 (Patient Health Questionnaire 9) score Depression Screening/Follow-Up (PHQ-2/9) [facility] Start: 1946 COVID-19 VACCINE (1) COVID-19 VACCINE (1) [facility] Start: 1944 History and physical examination, annual for health maintenance Wellness Visit [facility] Start: 1944 Medicare Wellness Visit Medicare Wellness Visit [facility] Start: 1941 Annual Wellness Visit (AWV) Annual Wellness Visit (AWV) [facility] Start: 1941 Fall risk assessment Falls Risk Assessment [facility] Start: 1941 Hepatitis C screening Hepatitis C screen [employer] Phone: End: 12-14-2020 [place] profile [facility] profile Lab Routine Fatigue, unspecified type Leg edema Discoloration of skin of lower leg 1 Occurrences starting 12/14/2020 until 12/14/2020 [employer] Phone: Comment on above: 1 Occurrences starting 12/14/2020 until 12/14/2020 [place] profile [place] profile Lab Routine Fatigue, unspecified type Leg edema Discoloration of skin of lower leg 12/14/2020 9:40 AM EDT [employer] Phone: End: 12-14-2020 Anti-Neutrophilic Cytoplasmic Antibody Anti-Neutrophilic Cytoplasmic Antibody Lab Routine Fatigue, unspecified type Leg edema Discoloration of skin of lower leg 1 Occurrences starting 12/14/2020 until 12/14/2020 [employer] Phone: Comment on above: 1 Occurrences starting 12/14/2020 until 12/14/2020 Anti-Neutrophilic Cytoplasmic Antibody Anti-Neutrophilic Cytoplasmic Antibody Lab Routine Fatigue, unspecified type Leg edema Discoloration of skin of lower leg 12/14/2020 9:40 AM EDT [employer] Phone: End: 10-20-2020 C-reactive protein C-reactive protein Lab Routine One Time for 1 Occurrences starting 10/20/2020 until 10/20/2020 [employer] Phone: Comment on above: One Time for 1 Occurrences starting 09/29 until 10/20/2020 C-reactive protein C-reactive pr otein Lab STAT 10/20/2020 4:43 PM EDT [employer] Phone: End: 02-02-2024 CARDIAC PHASE II CARDIAC PHASE II Card Rehab One Time for 1 Occurrences starting 02/02/2024 until 02/02/2024 Write[employer]my Comment on above: One Time for 1 Occurrences starting 06/2023 until 02/02/2024 End: 02-19-2024 CARDIAC PHASE II CARDIAC PHASE II Card Rehab One Time for 1 Occurrences starting 02/19/2024 until 02/19/2024 Write[employer] Comment on above: One Time for 1 Occurrences starting 01/30 until 02/19/2024 End: 03-04-2024 CARDIAC PHASE II CARDIAC PHASE II Card Rehab One Time for 1 Occurrences starting 03/04/2024 until 03/04/2024 Write.my Comment on above: One Time for 1 Occurrences starting 07/2023 until 03/04/2024 End: 03-23-2024 CARDIAC PHASE II CARDIAC PHASE II Card Rehab One Time for 1 Occurrences starting 03/23/2024 until 03/23/2024 Write.my Comment on above: One Time for 1 Occurrences starting 03/01 until 03/23/2024 End: 03-29-2024 CARDIAC PHASE II CARDIAC PHASE II Card Rehab One Time for 1 Occurrences starting 03/29/2024 until 03/29/2024 Write[employer]my Comment on above: One Time for 1 Occurrences starting 03/02 until 03/29/2024 End: 03-30-2024 CARDIAC PHASE II CARDIAC PHASE II Card Rehab One Time for 1 Occurrences starting 03/30/2024 until 03/30/2024 Write.my Comment on above: One Time for 1 Occurrences starting 03/02 until 03/30/2024 End: 04-08-2024 CARDIAC PHASE II CARDIAC PHASE II Card Rehab One Time for 1 Occurrences starting 04/08/2024 until 04/08/2024 Write[employer]my Comment on above: One Time for 1 Occurrences starting 11/2024 until 04/08/2024 End: 04-22-2024 CARDIAC PHASE II CARDIAC PHASE II Card Rehab One Time for 1 Occurrences starting 04/22/2024 until 04/22/2024 Write[employer]my Comment on above: One Time for 1 Occurrences starting 04/01 until 04/22/2024 Dermatopathology exam Dermatopat hology exam Pathology and Cytology Timed Neoplasm of unspecified behavior of bone, soft tissue, and skin Release Upon Ordering for 1 Occurrences starting 03/08/2024 [employer] Work Phone: Comment on above: Release Upon Ordering for 1 Occurrences starting 03/08/2024 End: 08-08-2020 ECHO Complete 2D W Doppler W Color ECHO Complete 2D W Doppler W Color Echocardiography Routine Atrioventricular septal defect (AVSD) Aortic valve stenosis, etiology of cardiac valve disease unspecified 1 Occurrences starting 08/08/2020 until 08/08/2020 [employer] Phone: Comment on above: 1 Occurrences starting 08/08/2020 until 08/08/2020 EKG 12 Lead [employer] Phone: EKG 12 Lead EKG 12 Lead ECG Routine Vitamin D deficiency Encounter for lipid screening for cardiovascular disease Atrial flutter, unspecified type (HCC) 09/03/2021 7:42 AM EDT [employer] Phone: EKG 12 Lead EKG 12 Lead ECG Routine Atrial flutter, unspecified type (HCC) Vitamin D deficiency Encounter for lipid screening for cardiovascular disease Aortic valve stenosis, etiology of cardiac valve disease unspecified 08/30/2022 9:39 AM EDT [employer] Phone: Electrophoresis Prot ein, Serum without Reflex to Immunofixation Electrophoresis Protein, Serum without Reflex to Immunofixation Lab Routine Fatigue, unspecified type Leg edema Discoloration of skin of lower leg 12/14/2020 9:40 AM EDT [employer] Phone: End: 08-08-2020 Holter monitor 48 hour Holter monitor 48 hour Cardiac Services Routine Atrioventricular septal defect (AVSD) Aortic valve stenosis, etiology of cardiac valve disease unspecified 1 Occurrences starting 08/08/2020 until 08/08/2020 [employer] Work Phone: Comment on above: 1 Occurrences starting 08/08/2020 until 08/08/2020 Patient Education Hiatal Hernia (DC) Alvares's Esophagus (DC) [facility] Work Phone: Protein Electrophore sis, Urine Protein Electrophoresis, Urine Lab Routine Fatigue, unspecified type Leg edema Discoloration of skin of lower leg 12/14/2020 9:40 AM EDT [employer] Work Phone: [facility] Immunizations Immunization Date Immunization Notes Care Provider Fa cility 04-07-2024 influenza virus vaccine, unspecified formulation Carol Gusman DPM Work Phone: [facility] 01-31-2023 influenza virus vaccine, unspecified formulation Carol Gusman DPM Work Phone: [facility] 01-29-2021 pneumococcal polysaccharide vaccine, 23 valent Carol Gusman DPM Work Phone: [facility] 01-04-2021 COVID-19 mRNA, Comirnaty (Pfizer) MD Faizan Bragg Work Phone: [facility] [place] 05-25-2020 COVID-19 mRNA, Comirnaty (Pfizer) MD Faizan Bragg Work Phone: [facility] [place] 05-04-2020 COVID-19 mRNA, Comirnaty (Pfizer) MD Faizan Bragg Work Phone: [facility] [place] 02-14-2020 pneumococcal polysaccharide vaccine, 23 valent Faizan Bragg Other [facility] [place] 12-29-2019 influenza virus vaccine, split virus (incl. purified surface antigen) Faizan Brgag Other [facility] [employer] Other 12-29-2019 influenza virus vaccine, unspecified formulation [facility] [place] 02-08-2019 influenza virus vaccine, split virus (incl. purified surface antigen) Faizan Bragg Other [facility] [employer] Other 02-08-2019 influenza virus vaccine, unspecified formulation [facility] [place] 02-08-2019 pneumococcal conjuga te vaccine, 13 valent Faizan Bragg Other [facility] [place] 01-26-2018 influenza virus vaccine, split virus (incl. purified surface antigen) Faizan Bragg Other [facility] [employer] Other 01-26-2018 influenza virus vaccine, unspecified formulation [facility] [place] 01-09-2017 influenza virus vaccine, split virus (incl. purified surface antigen) Faizan Bragg Other [facility] [employer] Other 01-09-2017 influenza virus vaccine, unspecified formulation [facility] 04-26-2016 influenza, seasonal, injectable Mik Didillony Other [facility] 12-30-2015 diphtheria, tetanus toxoids and acellular pertussis vaccine, unspecified formulation Faizan Bragg Other [facility] [place] 12-30-2015 tetanus toxoid, reduced diphtheria toxoid, and acellular pertussis vaccine, adsorbed Gurdeep Ron [facility] 11-27-2015 pneumococcal polysaccharide vaccine, 23 valent Mik Ditty Other [facility] [place] 02-01-2013 tetanus and diphther ia toxoids, adsorbed, preservative free, for adult use (5 Lf of tetanus toxoid and 2 Lf of diphtheria toxoid) Faizan Bragg Other [facility] NEGATED: Highlighted row has not occurred!11-27-2015 zoster vaccine, live Mik Ditty Other [facility] [employer] Other Payers Date Payer Category Payer Private Health Insurance [employer] [id number] 2021 Unknown [employer] [id number] 2021-Present [address] [place] [address] [id number]. [id number] 2019 Managed Care (unspecified) [employer] [facility] [id number]. [id number] 2019 Unknown [id number] 1.2.840.564546.1.13.385.2. 7.3.921593.315 2018 Unknown [id number] 1.2.840.061631.1.13.385.2. 7.3.240680.315 2006 Medicare [id number] 2006 Medicare xxxxxxxxxxx 1.2.840.107336.1.13.385.2. 7.3.111600.315 2006 Medicare [id number] 1.2.840.447441.1.13.385.2. 7.3.324382.315 2006 Medicare 1.2.840.174869. 1.13.693.2. 7.9.796452.741387.315 2006 Medicare [id number] 1.2.840.465983.1.13.239.2. 7.3.281143.315 1959 Medicare [id number] 1959 Unknown [id number] 1941 Unknown [id number] 2.16.840.1.377583.3.579.2. 900 1941 Unknown [id number] 2.16.840.1.675300.3.579.2. 900 1941 Unknown [id number] 2.16.840.1.131998.3.579.2. 647 1941 Unknown [id number] 2.16.840.1.021347.3.579.2. 593 1941 Unknown [id number] 2.16.840.1.324507.3.579.2. 593 1941 Unknown [id number] 2.16.840.1.344025.3.579.2. 593 1941 Unknown [id number] 2.16.840.1.678675.3.579.2. 593 1941 Unknown [id number] 2.16.840.1.392062.3.579.2. 593 1941 Unknown [id number] 2.16.840.1.644981.3.579.2. 903 1941 Unknown [id number] 2.16.840.1.322286.3.579.2. 174 1941 Unknown [id number] 2.16.840.1.471817.3.579.2. 174 1941 Unknown [id number] 2.16.840.1.715352.3.579.2. 174 1941 Unknown [id number] 2.16.840.1.906497.3.579.2. 174 1941 Unknown [id number] 2.16.840.1.441484.3.579.2. 174 1941 Unknown [id number] 2.16.840.1.835319.3.579.2. 174 1941 Unknown [id number] 2.16.840.1.471062.3.579.2. 174 1941 Unknown [id number] 2.16.840.1.911030.3.579.2. 174 1941 Unknown [id number] 2.16.840.1.516408.3.579.2. 174 1941 Unknown [id number] 2.16.840.1.096332.3.579.2. 174 1941 Unknown [id number] 2.16.840.1.501624.3.579.2. 174 1941 Unknown [id number] 2.16.840.1.224322.3.579.2. 174 1941 Unknown [id number] 2.16.840.1.208603.3.579.2. 174 1941 Unknown [id number] 2.16.840.1.252998.3.579.2. 174 1941 Unknown [id number] 2.16.840.1.835654.3.579.2. 174 1941 Unknown [id number] 2.16.840.1.318269.3.579.2. 174 1941 Unknown [id number] 2.16.840.1.216410.3.579.2. 174 1941 Unknown [id number] 2.16.840.1.648406.3.579.2. 174 1941 Unknown [id number] 2.16.840.1.220928.3.579.2. 174 1941 Unknown [id number] 2.16.840.1.650376.3.579.2. 174 1941 Unknown [id number] 2.16.840.1.513855.3.579.2. 174 1941 Unknown [id number] 2.16.840.1.055162.3.579.2. 174 1941 Unknown [id number] 2.16.840.1.666891.3.579.2. 174 1941 Unknown [id number] 2.16.840.1.419929.3.579.2. 174 1941 Unknown [id number] 2.16.840.1.484943.3.579.2. 174 1941 Unknown [id number] 2.16.840.1.511856.3.579.2. 174 1941 Unknown [id number] 2.16.840.1.470177.3.579.2. 174 1941 Unknown [id number] 2.16.840.1.508350.3.579.2. 174 1941 Unknown [id number] 2.16.840.1.903851.3.579.2. 174 1941 Unknown [id number] 2.16.840.1.309123.3.579.2. 174 1941 Unknown [id number] 2.16.840.1.725150.3.579.2. 174 1941 Unknown [id number] 2.16.840.1.951812.3.579.2. 174 1941 Unknown [id number] 2.16.840.1.301475.3.579.2. 174 1941 Unknown [id number] 2.16.840.1.500782.3.579.2. 174 1941 Unknown [id number] 2.16.840.1.312778.3.579.2. 174 1941 Unknown [id number] 2.16.840.1.400603.3.579.2. 174 1941 Unknown [id number] 2.16.840.1.139169.3.579.2. 174 1941 Unknown [id number] 2.16.840.1.161174.3.579.2. 174 1941 Unknown [id number] 2.16.840.1.962793.3.579.2. 174 1941 Unknown [id number] 2.16.840.1.070560.3.579.2. 174 1941 Unknown [id number] 2.16.840.1.018545.3.579.2. 174 1941 Unknown [id number] 2.16.840.1.044480.3.579.2. 174 1941 Unknown [id number] 2.16.840.1.270035.3.579.2. 174 1941 Unknown [id number] 2.16.840.1.356080.3.579.2. 174 1941 Unknown [id number] 2.16.840.1.833750.3.579.2. 174 1941 Unknown [id number] 2.16.840.1.845357.3.579.2. 174 1941 Unknown [id number] 2.16.840.1.592982.3.579.2. 174 1941 Unknown [id number] 2.16.840.1.661252.3.579.2. 174 1941 Unknown [id number] 2.16.840.1.916490.3.579.2. 174 1941 Unknown [id number] 2.16.840.1.033795.3.579.2. 174 1941 Unknown [id number] 2.16.840.1.871057.3.579.2. 174 1941 Unknown [id number] 2.16.840.1.331974.3.579.2. 174 1941 Unknown [id number] 2.16.840.1.405018.3.579.2. 174 1941 Unknown [id number] 2.16.840.1.015361.3.579.2. 174 1941 Unknown [id number] 2.16.840.1.648580.3.579.2. 174 1941 Unknown [id number] 2.16.840.1.638795.3.579.2. 174 1941 Unknown [id number] 2.16.840.1.500848.3.579.2. 173 1941 Unknown [id number] 2.16.840.1.824717.3.579.2. 1941 Unknown [id number] 2.16.840.1.900296.3.579.2. 90 1941 Unknown [id number] 2.16.840.1.177234.3.579.2. 1258 1941 Unknown [id number] 2.16.840.1.938985.3.579.2. 1258 1941 Unknown [id number] 2.16.840.1.189980.3.579.2. 1258 1941 Unknown [id number] 2.16.840.1.503382.3.579.2. 125 1941 Unknown [id number] 2.16.840.1.211648.3.579.2. 1258 1941 Unknown [id number] 2.16.840.1.923477.3.579.2. 125 1941 Unknown [id number] 2.16.840.1.108017.3.579.2. 125 1941 Unknown [id number] 2.16.840.1.023169.3.579.2. 125 1941 Unknown [id number] 2.16.840.1.861454.3.579.2. 1259 1941 Unknown [id number] 2.16.840.1.385009.3.579.2. 1259 1941 Unknown [id number] 2.16.840.1.141356.3.579.2. 727 1941 Unknown [id number] 2.16.840.1.921165.3.579.2. 727 1941 Unknown [id number] 2.16.840.1.651977.3.579.2. 727 1941 Unknown [id number] 2.16.840.1.411809.3.579.2. 727 1941 Unknown [id number] 2.16.840.1.079693.3.579.2. 727 1941 Unknown [id number] 2.16.840.1.299397.3.579.2. 727 Self-pay Self Pay [id number] [facility] Health Claims [id number] Social History Date Type Detail Facility Start: 12-30-2015 End: 03-06-2023 Tobacco smoking status WIIS Never smoker [facility] Start: 12-30-2015 End: 10-05-2024 Alcohol intake Current non-drinker of alcohol (finding) [facility] [place] Start: 1940 Sex Assigned At [facility] file [facility] [place] Start: 09-18-2019 End: 03-06-2023 Tobacco use and exposure Never used [facility] [place] Exposure to SARS-CoV-2 (event) Unable to assess [facility] [place] Start: 06-22-2021 End: 07-02-2021 Exposure to SARS-CoV-2 (event) Not sure [employer] Work Phone: Start: 07-02-2021 Alcohol intake Ex-drinker (finding) [facility] Start: 03-29-2023 End: 11-18-2024 Sex Assigned At [facility] Start: 1940 Sex Assigned At Male [facility] Tobacco smoking status No Smoking Status Entered [facility] Start: 03-29-2023 End: 11-18-2024 History of Social function RPO How often to you hav e a drink containing alcohol? Never RPO How many standard drinks containing alcohol do you have on a typical day? Patient does not drink [facility] Start: 03-29-2023 Gender identity Identifies as male gender (finding) [facility] Start: 03-29-2023 Sexual orientation Heterosexual (fin ding) [facility] Start: 12-02-2023 End: 11-18-2024 Alcoholic beverage intake Lifetime non-drinker (finding) [facility] Start: 05-10-2012 End: 04-30-2024 Sex Male (finding) [facility] NEGATED: Highlighted rowStart: NINF History of tobacco use Passive smoker [facility] Goals Date Patient Goal Desired Activity /State Functional Status Date Assessment Result Facility 03-03-2024 Functional Status N/A [facility] 02-24-2024 Functional Status N/A [facility] 01-22-2024 Functional Status N/A [facility] 01-20-2024 Functional Status N/A [facility] 12-17-2023 Functional Status N/A [facility] 11-24-2023 Functional Status N/A [facility] 10-28-2023 Functional Status N/A [facility] 09-17-2023 Functional Status N/A [facility] 09-08-2023 Functional Status N/A [facility] 08-11-2023 Functional Status N/A [facility] 08-04-2023 Functional Status N/A [facility] 07-03-2023 Functional Status N/A [facility] Clinical Notes 08-08-2020 to 12-03-2024 Carol Gusman DPM - 11/18/2024 2:15 PM GABRIEL Billings - 11/10/2024 10:50 AM Mechelle Martinez AuD - 10/05/2024 2:17 PM Jeff Vidal MD - 10/05/2024 2:11 PM EDT Note Date & Type Note Facility 12-03-2024 Note Operative Report Diagnosis: 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 Procedure: Right cervical medial branch radiofrequency ablation under fluoroscopic guidance, targeting the cervical medial branches that innervate the C5/6 and C6/7 facet joints Anesthesia: Local Complications: none After informed consent was obtained, the patient was brought to the procedure room and placed in the prone position. The neck area is prepped and draped in usual sterile fashion. Using fluoroscopic guidance skin and subcutaneous tissue overlying needle trajectories to the target sites were anesthetized with 2% lidocaine. 20-gauge radiofrequency needles were advanced under fluoroscopic guidance to the appropriate anatomic landmarks. Needle tip position was confirmed on fluoroscopy and AP and lateral views. Next, stimulation was carried out at 2.0 V with muscular contraction only felt and visualized in the cervical paraspinal musculature and no contraction in the upper extremity noted. Patient also confirmed feeling of sensation only in the cervical paraspinal musculature and nothing into the upper extremity shoulder or scapular region. Next, after negative aspiration, 0.5 mL of 2% lidocaine was injected through each needle tip and appropriate time for the anesthetic to set up was taken. Then, radiofrequency lesioning was carried out for 80 seconds at 80 degrees x 2 with rotation of the needle tips 90 degrees and confirmatory x-rays taken in between repositioning. Next, after negative aspiration, 3.33 mg dexamethasone was injected through each needle tip for a total of 10 mg dexamethasone. The needles were removed. The patient was then transferred to the recovery room in stable condition. Postprocedural evaluation revealed 5/5 bilateral upper extremity strength. Follow-up: The patient agrees to continue currently prescribed/recommended therapies. [facility] Comment on above: Result Comment: Elec tronically Signed By: Daniel Hair DO\Date and Time Signed: 12/03/24 12:19 EDT 11-18-2024 History of Present illness Narrative Bret Yap is a 84 y.o. male presents with chief complaint of Follow-up (Lt toenail pain) HPI: HPI Pt has Lt 2nd toe pain from thickened callus. Pt states its been an ongoing issue for years and seems to be worsening. Pt on his feet often. Little change in last 2 visits. Pads help. Interest in surgery Review of Systems General: Chillsdenies. Feverdenies. Musculoskeletal: muscle weaknessdenies. Bone/joint symptomsdenies. Peripheral Vascular: Edemadenies. Hx of blood clots in legsdenies. Raynaud'sdenies. Rest pain denies. Ulceration of feetdenies. Varicose veinsdenies. Skin: Hyperpigmentationdenies. Nail changesdenies. Rashdenies. Skin lesion(s)denies. Neurologic: Gait abnormalitydenies. Tingling/Numbnessdenies. SUBJECTIVE: MEDICATIONS: Current Outpatient Medications Medication Instructions allopurinol (Zyloprim) 300 MG tablet Every 24 hours amLODIPine (Norvasc) 2.5 MG tablet 1 tablet, Daily aspirin 81 mg, Daily RT atorvastatin (LIPITOR) 10 mg eplerenone (INSPRA) 25 mg, Daily esomeprazole (NexIUM) [address] capsule 1 capsule, Every 24 hours furosemide (Lasix) 20 MG tablet Every 24 hours hydrocortisone 2.5 % cream Topical, 2 times daily PRN, Apply thin layer to affected areas on the face bid prn for flares isosorbide mononitrate ER (Imdur) 30 MG 24 hr tablet latanoprost (Xalatan) 0.005 % ophthalmic solution montelukast (Singulair) 10 MG tablet Omeprazole 20 mg, Daily RT Xarelto 20 mg, Daily with evening meal ALLERGIES: Allergies Allergen Reactions Indomethacin Other Other reaction(s): Unknown Sulfa Antibiotics Unknown Trimethoprim Other REVIEW OF SYMPTOMS: Review of Systems OBJECTIVE: Visit Vitals BP 104/57 Pulse 63 Ht 6' Wt 195 lb BMI 26.45 kg/m Smoking Status Never BSA 2.12 m Physical Exam General Examination: alert, well hydrated, in no distress , awake, aware of surroundings. Dermatologic: NAIL PATHOLOGY:digits 1-5 bilateral are intact. atrophic skin with neg digital hair and hyperpigmentation-. HYPERKERATOSIS-left 2 DIPJ severe with large hemorrhagic center. Left med 1st MPJ minimal Nail Pathology: Left Foot: 1 (great toe)Long, Thick, Crumbly, Deformed, Discolored, Brittle, Dystrophic 5 mm. 2Long, Thick, Crumbly, Deformed, Discolored, Brittle, Dystrophic 5mm. 3Long, Thick, Crumbly, Deformed, Discolored, Brittle, Dystrophic 5 mm. 4Long, Thick, Crumbly, Deformed, Discolored, Brittle, Dystrophic, 3mm. 5Long, Thick, Crumbly, Deformed, Discolored, Brittle, [id number]. Nail Pathology: Right Foot: 1 (great toe)Long, Thick, Crumbly, Deformed, Discolored, Brittle, Dystrophic 5 mm. 2Long, Thick, Crumbly, Deformed, Discolored, Brittle, Dystrophic 4mm. 3Long, Thick, Crumbly, Deformed, Discolored, Brittle, Dystrophic, 4mm. 4Long, Thick, Crumbly, Deformed, Discolored, Brittle, Dystrophic,3mm. 5Long, Thick, Crumbly, Deformed, Discolored, Brittle, [id number]. Modifier: -Q9, Parastesias. Vascular: palp pulses bilat and good color and refill digits. minimal edema. Neurologic: Vibratory sensation, shapr/dull and light touch are decreased to the plantar foot bilateral, all toes involved. Ankle / Foot: Good strength and ROM bilat, no kari or legs tenderness. neg homans sign. 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 shoe changes reviewed including rx shoes. extra depth needed and will use pads until shoe fit improved.. surgical correction also reviewed Bunion/Bunionette: Deformity addressed for potential causes including hereditary and trauma and poor shoe choices. ice, poadding and better shoe fit discussed for conservative management. Surgery may be needed for correction to avaoid activity changes and prevent wounds Surgical correction sugg- olsen/HT 2 left Padding cont Will schedule surgery and visit preop with XRAY documented in this encounter [facility] 11-10-2024 History of Present illness Narrative Lesions: Location: ears, nose, arms Duration: months Quality: itchy Modifying factors: aggravated by picking Associated symptoms: peeling Treatments: none Established patient All pertinent medical history, medications, and allergies were reviewed. General Exam: alert, oriented to person, place, and time, normal affect, well appearing Unaccompanied A focused exam completed based on patient reported problems, see below: Skin Exam 1. ACTINIC KERATOSIS Left Dorsal Hand Erythematous scaly papules Patient was counseled regarding these sun-induced growths that can develop into squamous cell carcinoma if left untreated. Discussed treatment with cryotherapy. It was emphasized that any treated lesions that fail to resolve should be re-evaluated. Cryotherapy performed today; see procedure note Diagnosis: Actinic keratosis Indication: Precancerous Location: see skin exam Consent: Verbal consent was obtained and risks were discussed, including, but not limited to risks of scarring, darker or traffic court magistrate pigmentary changes, recurrence, incomplete removal and infection. Method: Liquid nitrogen was used to treat the lesion(s) with two 5-10 second freeze-thaw cycles. Number of lesions treated: 1 Post-procedure instructions: Instructions were given orally and in writing. The office will be contacted if the lesion fails to resolve despite treatment, or if a side effect develops such as abnormal crusting, scabbing, redness or tenderness Cryotherapy, skin lesion - Left Dorsal Hand 2. INFLAMED SEBORRHEIC KERATOSIS (12) Left Dorsal Hand, Left Forearm - Posterior, Left Hand - Posterior (2), Left Upper Arm - Posterior, Left Zygomatic Area, Mid Supratip of Nose, Right Forearm - Anterior, Right Mid [place], Right Superior [place] (2), Right Zygomatic Area Inflamed seborrheic keratoses: pink and brown stuck on verrucous scaly papule with surrounding erythema and bloody crust. The patient was informed that symptomatic seborrheic keratoses are benign growths that become inflamed, itchy, tender, traumatized, caught on clothing, or bleed. Symptomatic lesions can be treated with cryotherapy or curretage. Thicker lesions treated with cryotherapy may require more than one treatment. The patient was instructed to notify the office if abnormal redness or tenderness develops at the treatment site. Cryotherapy today, see procedure note. Diagnosis: Inflamed seborrheic keratosis Indication: Inflamed Consent: Verbal consent was obtained and risks were discussed, including, but not limited to risks of scarring, darker or traffic court magistrate pigmentary changes, recurrence, incomplete removal and infection. Method: Liquid nitrogen was used to treat the lesion(s) with two 5-10 second freeze-thaw cycles Number of lesions treated: 12 Post-procedure instructions: Instructions were given orally and in writing. The office will be contacted if the lesion fails to resolve despite treatment, or if a side effect develops such as abnormal crusting, scabbing, redness or tenderness Cryotherapy, skin lesion - Left Dorsal Hand, Left Forearm - Posterior, Left Hand - Posterior (2), Left Upper Arm - Posterior, Left Zygomatic Area, Mid Supratip of Nose, Right Forearm - Anterior, Right Mid [place], Right Superior [place] (2), Right Zygomatic Area Next Visit: 4 months documented in this encounter [facility] 10-05-2024 History of Present illness Narrative Images from the original note were not included. [facility] [address] [place] [address] 5th Floor [facility] [address] Name: Bret Yap : 1940 Date: 10/05/24 History & Purpose of Evaluation: Bret Yap was seen today for audiologic assessment at the request of Jeff Zayas MD. Mr Yap's chief auditory complaint was bilateral hearing loss. Onset was several years ago, with gradual progression. Mr Yap denied any sudden or rapid decline of hearing. History includes significant noise exposure. Mr Yap reported that when he is in high levels of noise, such as when he mows his yard, he removes his hearing aids and inserts cotton into his ears for hearing protection. Please see below for other pertinent case history information as reported by Mr Yap. Otologic Symptoms R L Noise Exposure Y N Medical Y N Hearing Loss [x] [x] Occupational-past [x] [] Hypertension [] [x] Tinnitus [] [] Recreational-has hearing protection, does not always use it [x] [] Diabetes [] [x] Otalgia [] [] [] [x] Hypercholesterolemia [] [x] Otorrhea [] [] Heart Disease [x] [] Aural Fullness [] [] Family History [x] [] Stroke [] [x] Meniere s Disease [] [] Cancer [] [x] Y N Sp./Lang. Skills Ear Surgery R L Vertigo [] [x] Appropriate [x] [] PE Tubes [] [] Dizziness [] [x] In Therapy [] [x] Mastoidectomy [] [] Imbalance [x] [] Social Acoustic Neuroma [] [] Vestibular Rehab [] [x] Depression [] [x] Tympanoplasty [] [] Hearing aids: binaural srhchryx-mf-mgn-canal hearing aids from an outside facility Other: Results: Otoscopy: Performed by Dr. Zayas prior to testing. Puretone Air & Bone Conduction Audiometry: Puretone audiometry suggested a bilateral sensorineural hearing loss, mild in the low frequencies through 1000 Hz, sloping to profound in the high frequencies. Hearing was worse in the left ear than the right ear at 2000 Hz and 3000 Hz. Speech Audiometry: Speech recognition thresholds were in good agreement with three-frequency puretone averages. Word recognition was fair (70% in the right ear and 76% in the left ear) when assessed at levels above normal conversational loudness using 50-word lists of recorded male voice. Immittance Audiometry: Tympanometry revealed normal ear canal volume, normal static compliance, and normal resting pressure (Jerger type A) in the left ear. Tympanometry in the right ear revealed normal ear canal volume, low static compliance, and normal resting pressure (Jerger type As). Ipsilateral acoustic reflexes were absent in each ear. Impression: Middle ear testing was consistent with a well-ventilated middle ear system in the left ear, and reduced tympanic membrane mobility in the right ear. Puretone audiometry was consistent with a bilateral sensorineural hearing loss, mild in the low frequencies, sloping to profound in the high frequencies. This hearing loss is expected to interfere with communication, especially in difficult listening situations. Recommendations: Medical follow up with Dr. Zayas. Further testing and/or re-evaluation at Dr. Zayas' discretion. Consistent use of hearing protection (earmuffs or earplugs specifically designed for hearing protection, rather than cotton) when in loud noise. Hearing protection was offered at today's visit but declined. Mr. Yap stated that, although he doesn't always use it, he does have hearing protection at home. Continued use of hearing aids with routine hearing aid care. Electronically Signed by: Phyllis Niño, [facility] 10/05/24 2:17 PM Audiogram: documented in this encounter [facility] 10-05-2024 Note [facility] [address] [place] [address] [place] (11) [facility] [address] [facility] [place] MEDICAL OFFICE [facility] [address] Dept: [phone] Loc: [phone] Jeff Zayas MD Bret Yap 84 y.o. male Patient presents with a chief complaint of Hearing Loss (EAR DRUM PERFORATION) Temp 98 degrees F (36.7 degrees C) (Oral) Wt 93 kg (205 lb) BMI 26.32 kg/m History of Presenting Illness: The patient/caregiver reports a history of complaint with the following features: He presents for evaluation after seeking adjustment of his right hearing aid. He feel that the sound is not adjusted in that aid. He reports women's voices seem distorted. There was noted to be a possible perforation of the right ear drum and medical evaluation was advised. He denies any known tympanic perforation, prior surgery, ear pain, or drainage. Review of systems covering 10 systems is reviewed and pertinent positives and negatives are noted as above. Past Medical History: Diagnosis Date GERD (gastroesophageal reflux disease) Gout Current Medications[1] Allergies[2] Past Surgical History: Procedure Laterality Date TX CATH PLMT L HRT & ARTS W/NJX & ANGIO IMG S&I N/A 01/23/2024 Procedure: Left Heart Cath; Surgeon: Tres Álvarez MD; Location: [facility]; Service: Cardiovascular TX CATH PLMT L HRT & ARTS W/NJX & ANGIO IMG S&I N/A 01/23/2024 Procedure: Coronary Angiogram; Surgeon: Tres Álvarez MD; Location: [facility]; Service: Cardiovascular TX L HRT CATH W/NJX L VENTRICULOGRAPHY IMG S&I N/A 01/23/2024 Procedure: Left Ventriculogram; Surgeon: Tres Álvarez MD; Location: [facility]; Service: Cardiovascular ROTATOR CUFF REPAIR TONSILLECTOMY VASCULAR SURGERY Social History [3] History reviewed. No pertinent family history. PHYSICAL EXAM: The patient was examined today 10/05/2024 with findings as follows: CONSTITUTIONAL: General Appearance: well-appearing, nontoxic, alert, no acute distress Communication: normal voicing, hearing intact to spoken voice HEAD/FACE: Head: atraumatic, normocephalic, no lesions Facial Inspection: no lesions, healthy skin Facial Strength: motor strength normal, symmetric strength, symmetric movement EYES: Pupils: PERRLA, extra-ocular movements intact, no nystagmus, sclera white, no redness of eyes, no watering of eyes EARS: Bilateral External Ears: no pits, no tags Right External Ear: normally formed, no lesions, no mastoid tenderness Left External Ear: normally formed, no lesions, no mastoid tenderness Right External Auditory Canal: normal, healthy skin, no obstructing cerumen, no discharge Left External Auditory Canal: normal, healthy skin, no obstructing cerumen, no discharge Right Tympanic Membrane: normal landmarks, translucent with anterior monomeric site Left Tympanic Membrane: normal landmarks, translucent Hearing: intact to spoken voice NECK: Neck: no masses, trachea midline, normal range of motion, no cysts or pits, no tenderness to palpation LYMPH NODES: Cervical: no palpable lymph node enlargement SKIN: General Appearance: no lesions, warm and dry, normal turgor, no bruising PSYCHIATRIC: Mood and affect: normal mood, normal affect Assessment and Plan: I see no perforation. He does have a monomeric site that my mimic a perforation with low lighting. Audiometric testing is performed today and independently reviewed and interpreted. This shows a steeply sloping profound sensorineural loss bilaterally with fair speech discrimination. Tympanometry shows normal compliance consistent with normally ventilated middle ear spaces. He may benefit from adjustment of the hearing aids with reduced high frequency output given his reported distortion. 1. Sensorineural hearing loss, bilateral Ambulatory referral to Audiology 2. Impaired auditory discrimination, bilateral Return if symptoms worsen or fail to improve. The patient and/or caregiver is to notify the office if no improvement or worsening of symptoms is noted prior to the scheduled follow-up for sooner evaluation. The patient and/or caregiver is able to state an understanding of these recommendations and is agreeable to the treatment plan. --Jeff Zayas MD on 10/05/2024 at 4:40 PM An electronic signature was used to authenticate this note. [1] Current Outpatient Medications: allopurinoL (ZYLOPRIM) 300 MG tablet, Take 1 (one) tablet (300 mg total) by mouth daily ., Disp: , Rfl: amLODIPine (NORVASC) 5 MG tablet, Take 0.5 (one-half) tablet (2.5 mg total) by mouth daily ., Disp: 15 tablet, Rfl: 11 atorvastatin (LIPITOR) 10 MG tablet, Take 1 (one) tablet (10 mg total) by mouth daily ., Disp: 30 tablet, Rfl: 11 cholecalciferol, vitamin D3, 50 mcg (2,000 unit) cap, Take 2.5 (two and a half) capsules by mouth daily ., Disp: , Rfl: furosemide (LASIX) 20 MG tablet, Take 1 (one) tablet (20 mg to (more content not included)... [facility] 10-05-2024 History of Present illness Narrative [facility] [address] [facility] ([address]) [facility] [address] [facility] MEDICAL OFFICE [facility] [address] Dept: [phone] Loc: [phone] Jeff Zayas MD [facility] 84 y.o. male Patient presents with a chief complaint of Hearing Loss (EAR DRUM PERFORATION) Temp 98 F (36.7 C) (Oral) Wt 93 kg (205 lb) BMI 26.32 kg/m History of Presenting Illness: The patient/caregiver reports a history of complaint with the following features: He presents for evaluation after seeking adjustment of his right hearing aid. He feel that the sound is not adjusted in that aid. He reports women's voices seem distorted. There was noted to be a possible perforation of the right ear drum and medical evaluation was advised. He denies any known tympanic perforation, prior surgery, ear pain, or drainage. Review of systems covering 10 systems is reviewed and pertinent positives and negatives are noted as above. Past Medical History: Diagnosis Date GERD (gastroesophageal reflux disease) Gout Current Medications[1] Allergies[2] Past Surgical History: Procedure Laterality Date TX CATH PLMT L HRT & ARTS W/NJX & ANGIO IMG S&I N/A 01/23/2024 Procedure: Left Heart Cath; Surgeon: Tres Álvarez MD; Location: [facility]; Service: Cardiovascular TX CATH PLMT L HRT & ARTS W/NJX & ANGIO IMG S&I N/A 01/23/2024 Procedure: Coronary Angiogram; Surgeon: Tres Álvarez MD; Location: [facility]; Service: Cardiovascular TX L HRT CATH W/NJX L VENTRICULOGRAPHY IMG S&I N/A 01/23/2024 Procedure: Left Ventriculogram; Surgeon: Tres Álvarez MD; Location: [facility]; Service: Cardiovascular ROTATOR CUFF REPAIR TONSILLECTOMY VASCULAR SURGERY Social History [3] History reviewed. No pertinent family history. PHYSICAL EXAM: The patient was examined today 10/05/2024 with findings as follows: CONSTITUTIONAL: General Appearance: well-appearing, nontoxic, alert, no acute distress Communication: normal voicing, hearing intact to spoken voice HEAD/FACE: Head: atraumatic, normocephalic, no lesions Facial Inspection: no lesions, healthy skin Facial Strength: motor strength normal, symmetric strength, symmetric movement EYES: Pupils: PERRLA, extra-ocular movements intact, no nystagmus, sclera white, no redness of eyes, no watering of eyes EARS: Bilateral External Ears: no pits, no tags Right External Ear: normally formed, no lesions, no mastoid tenderness Left External Ear: normally formed, no lesions, no mastoid tenderness Right External Auditory Canal: normal, healthy skin, no obstructing cerumen, no discharge Left External Auditory Canal: normal, healthy skin, no obstructing cerumen, no discharge Right Tympanic Membrane: normal landmarks, translucent with anterior monomeric site Left Tympanic Membrane: normal landmarks, translucent Hearing: intact to spoken voice NECK: Neck: no masses, trachea midline, normal range of motion, no cysts or pits, no tenderness to palpation LYMPH NODES: Cervical: no palpable lymph node enlargement SKIN: General Appearance: no lesions, warm and dry, normal turgor, no bruising PSYCHIATRIC: Mood and affect: normal mood, normal affect Assessment and Plan: I see no perforation. He does have a monomeric site that my mimic a perforation with low lighting. Audiometric testing is performed today and independently reviewed and interpreted. This shows a steeply sloping profound sensorineural loss bilaterally with fair speech discrimination. Tympanometry shows normal compliance consistent with normally ventilated middle ear spaces. He may benefit from adjustment of the hearing aids with reduced high frequency output given his reported distortion. 1. Sensorineural hearing loss, bilateral Ambulatory referral to Audiology 2. Impaired auditory discrimination, bilateral Return if symptoms worsen or fail to improve. The patient and/or caregiver is to notify the office if no improvement or worsening of symptoms is noted prior to the scheduled follow-up for sooner evaluation. The patient and/or caregiver is able to state an understanding of these recommendations and is agreeable to the treatment plan. --Jeff Zayas MD on 10/05/2024 at 4:40 PM An electronic signature was used to authenticate this note. [1] Current Outpatient Medications: allopurinoL (ZYLOPRIM) 300 MG tablet, Take 1 (one) tablet (300 mg total) by mouth daily ., Disp: , Rfl: amLODIPine (NORVASC) 5 MG tablet, Take 0.5 (one-half) tablet (2.5 mg total) by mouth daily ., Disp: 15 tablet, Rfl: 11 atorvastatin (LIPITOR) 10 MG tablet, Take 1 (one) tablet (10 mg total) by mouth daily ., Disp: 30 tablet, Rfl: 11 cholecalciferol, vitamin D3, 50 mcg (2,000 unit) cap, Take 2.5 (two and a half) capsules by mouth daily ., Disp: , Rfl: furosemide (LASIX) 20 MG tablet, Take 1 (one) tablet (20 mg total) by mouth daily ., Disp: , Rfl: omeprazole 20 mg TbEC, Take 1 (one) tablet (20 mg total) by mouth daily ., Disp: , Rfl: Xarelto 20 mg Tab, Take 1 (one) tablet (20 mg total) by mouth daily with dinner ., Disp: , Rfl: aspirin 81 mg chewable tablet, Chew and Swallow 1 (one) tablet (81 mg total) daily . (Patient not taking: Reported on 10/05/2024 .), Disp: , Rfl: [2] No Known Allergies [3] Social History Socioeconomic History Marital status: Tobacco Use Smoking status: Never Substance and Sexual Activity Alcohol use: No Drug use: No Review of Systems Constitutional: Negative. HENT: Positive for hearing loss. Eyes: Negative. Respiratory: Negative. Cardiovascular: Negative. Gastrointestinal: Negative. Endocrine: Negative. Genitourinary: Negative. Musculoskeletal: Positive for neck pain. Skin: Positive for wound (left knee cut - scabbed). Allergic/Immunologic: Negative. Neurological: Negative. Hematological: Bruises/bleeds easily. Psychiatric/Behavioral: Negative. documented in this encounter [facility] 09-27-2024 History of Present illness Narrative Subjective Patient ID: Bret Yap is a 84 y.o. male who presents for toenail care. Last seen date: 09/09/2024 Last seen diagnosing provider: Faizan Bragg MD Nail care Location nails on bilateral feet Severity of symptoms mild Onset gradual Status no change Context hard to trim, hard to reach Nails thickened, discolored, pain Relieved by debridement, filing down nails, clipping nails History of ulcers/wounds no Aggravated by shoe gear, pressure Callus left 2nd toe incr pain and darkness, thicker. Admits skechers may be old ROS General: Chillsdenies. Feverdenies. Musculoskeletal: muscle weaknessdenies. Bone/joint symptomsdenies. Peripheral Vascular: Edemadenies. Hx of blood clots in legsdenies. Raynaud'sdenies. Rest pain denies. Ulceration of feetdenies. Varicose veinsdenies. Skin: Hyperpigmentationdenies. Nail changesdenies. Rashdenies. Skin lesion(s)denies. Neurologic: Gait abnormalitydenies. Tingling/Numbnessdenies. Current Medications Current Outpatient Medications: allopurinol (Zyloprim) 300 MG tablet, 1 (one) time each day at the same time, Disp: , Rfl: amLODIPine (Norvasc) 2.5 MG tablet, Take 1 tablet by mouth Daily, Disp: , Rfl: aspirin 81 MG chewable tablet, Chew 81 mg in the morning., Disp: , Rfl: atorvastatin (Lipitor) 10 MG tablet, Take 10 mg by mouth, Disp: , Rfl: eplerenone (Inspra) 25 MG tablet, Take 25 mg by mouth Daily, Disp: , Rfl: esomeprazole (NexIUM) [address] capsule, 1 capsule 1 (one) time each day at the same time, Disp: , Rfl: furosemide (Lasix) 20 MG tablet, 1 (one) time each day at the same time, Disp: , Rfl: hydrocortisone 2.5 % cream, Apply topically 2 (two) times a day as needed (Rash) Apply thin layer to affected areas on the face bid prn for flares, Disp: 30 g, Rfl: 1 isosorbide mononitrate ER (Imdur) 30 MG 24 hr tablet, , Disp: , Rfl: latanoprost (Xalatan) 0.005 % ophthalmic solution, , Disp: , Rfl: montelukast (Singulair) 10 MG tablet, , Disp: , Rfl: Omeprazole 20 MG tablet delayed-release, Take 20 mg by mouth in the morning., Disp: , Rfl: Xarelto 20 MG tablet, Take 20 mg by mouth in the evening. Take with meals, Disp: , Rfl: Allergies Indomethacin, Sulfa antibiotics, and Trimethoprim Medical Histories Past Medical History: Diagnosis Date A-fib (HCC) Actinic keratosis Basal cell carcinoma chin GERD (gastroesophageal reflux disease) Gout HTN (hypertension) Squamous cell skin cancer left cheek, left arm Surgical Histories Past Surgical History: Procedure Laterality Date ARTHROSCOPY SHOULDER / OPEN SHOULDER Bilateral 2012 BACK SURGERY 2020 Dr Michelle LEG SURGERY Right vascular ORIF TIBIA & FIBULA FRACTURES Right TONSILLECTOMY Hospitalizations Family History Family History Problem Relation Name Age of Onset Cancer Father Cancer Father's Sister Cancer Father's Brother Melanoma Neg Hx Objective Foot Exam General Examination: alert, well hydrated, in no distress , awake, aware of surroundings. Dermatologic: NAIL PATHOLOGY:digits 1-5 bilateral are intact. atrophic skin with neg digital hair and hyperpigmentation-. HYPERKERATOSIS-left 2 DIPJ severe with large hemorrhagic center. Left med 1st MPJ minimal Nail Pathology: Left Foot: 1 (great toe)Long, Thick, Crumbly, Deformed, Discolored, Brittle, Dystrophic 5 mm. 2Long, Thick, Crumbly, Deformed, Discolored, Brittle, Dystrophic 5mm. 3Long, Thick, Crumbly, Deformed, Discolored, Brittle, Dystrophic 5 mm. 4Long, Thick, Crumbly, Deformed, Discolored, Brittle, Dystrophic, 3mm. 5Long, Thick, Crumbly, Deformed, Discolored, Brittle, [id number]. Nail Pathology: Right Foot: 1 (great toe)Long, Thick, Crumbly, Deformed, Discolored, Brittle, Dystrophic 5 mm. 2Long, Thick, Crumbly, Deformed, Discolored, Brittle, Dystrophic 4mm. 3Long, Thick, Crumbly, Deformed, Discolored, Brittle, Dystrophic, 4mm. 4Long, Thick, Crumbly, Deformed, Discolored, Brittle, Dystrophic,3mm. 5Long, Thick, Crumbly, Deformed, Discolored, Brittle, [id number]. Modifier: -Q9, Parastesias. Vascular: palp pulses bilat and good color and refill digits. minimal edema. Neurologic: Vibratory sensation, shapr/dull and light touch are decreased to the plantar foot bilateral, all toes involved. Ankle / Foot: Good strength and ROM bilat, no kari or legs tenderness. neg homans sign. 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 any new problems with appt sugg. pain can b treated with topical or oral measures, many were offered. pain can b managed with topcial or oral methods and offered today Lesion debrided left 2- padding applied and disp Shoes for improvement and xray with sx consult if slow progress documented in this encounter [facility] 07-29-2024 History of Present illness Narrative Subjective Patient ID: Bret Yap is a 84 y.o. male who presents for Foot Ulcer (R) and Follow-up (Rgt heel Ulcer). HPI Rgt Heel wound healed. Been closed 4-5 day. Denies pain. Unsure of complete healing, found shoes with protruding heel counter ROS General: Chillsdenies. Feverdenies. Musculoskeletal: muscle weaknessdenies. Bone/joint symptomsdenies. Peripheral Vascular: Edemadenies. Hx of blood clots in legsdenies. Raynaud'sdenies. Rest pain denies. Ulceration of feetdenies. Varicose veinsdenies. Skin: Hyperpigmentationdenies. Nail changesdenies. Rashdenies. Skin lesion(s)denies. Neurologic: Gait abnormalitydenies. Tingling/Numbnessdenies. Current Medications Current Outpatient Medications: allopurinol (Zyloprim) 300 MG tablet, 1 (one) time each day at the same time, Disp: , Rfl: amLODIPine (Norvasc) 2.5 MG tablet, Take 1 tablet by mouth Daily, Disp: , Rfl: aspirin 81 MG chewable tablet, Chew 81 mg in the morning., Disp: , Rfl: atorvastatin (Lipitor) 10 MG tablet, Take 10 mg by mouth, Disp: , Rfl: eplerenone (Inspra) 25 MG tablet, Take 25 mg by mouth Daily, Disp: , Rfl: esomeprazole (NexIUM) [address] capsule, 1 capsule 1 (one) time each day at the same time, Disp: , Rfl: furosemide (Lasix) 20 MG tablet, 1 (one) time each day at the same time, Disp: , Rfl: hydrocortisone 2.5 % cream, Apply topically 2 (two) times a day as needed (Rash) Apply thin layer to affected areas on the face bid prn for flares, Disp: 30 g, Rfl: 1 isosorbide mononitrate ER (Imdur) 30 MG 24 hr tablet, , Disp: , Rfl: latanoprost (Xalatan) 0.005 % ophthalmic solution, , Disp: , Rfl: montelukast (Singulair) 10 MG tablet, , Disp: , Rfl: Omeprazole 20 MG tablet delayed-release, Take 20 mg by mouth in the morning., Disp: , Rfl: Xarelto 20 MG tablet, Take 20 mg by mouth in the evening. Take with meals, Disp: , Rfl: Allergies Indomethacin, Sulfa antibiotics, and Trimethoprim Medical Histories Past Medical History: Diagnosis Date A-fib (CMS/HCC) Actinic keratosis Basal cell carcinoma chin GERD (gastroesophageal reflux disease) Gout HTN (hypertension) (CMS/HCC) Squamous cell skin cancer left cheek, left arm Surgical Histories Past Surgical History: Procedure Laterality Date ARTHROSCOPY SHOULDER / OPEN SHOULDER Bilateral 2011 [address] Michelle LEG SURGERY Right vascular ORIF TIBIA & FIBULA FRACTURES Right TONSILLECTOMY Hospitalizations Family History Family History Problem Relation Name Age of Onset Cancer Father Cancer Father's Sister Cancer Father's Brother Melanoma Neg Hx Objective Foot Exam General Examination: alert, well hydrated, in no distress , awake, aware of surroundings. Dermatologic: post heel 4mm eschar, dry , no redness NAIL PATHOLOGY:digits 1-5 bilateral are intact. atrophic skin with neg digital hair and hyperpigmentation-. HYPERKERATOSIS-left 2 DIPJ thick and dark. Left med 1st MPJ thick and cracking Nail Pathology: Left Foot: 1 (great toe)Long, Thick, Crumbly, Deformed, Discolored, Brittle, Dystrophic 5 mm. 2Long, Thick, Crumbly, Deformed, Discolored, Brittle, Dystrophic 6mm. 3Long, Thick, Crumbly, Deformed, Discolored, Brittle, Dystrophic 5 mm. 4Long, Thick, Crumbly, Deformed, Discolored, Brittle, Dystrophic, 4mm. 5Long, Thick, Crumbly, Deformed, Discolored, Brittle, [id number]. Nail Pathology: Right Foot: 1 (great toe)Long, Thick, Crumbly, Deformed, Discolored, Brittle, Dystrophic 5 mm. 2Long, Thick, Crumbly, Deformed, Discolored, Brittle, Dystrophic 5mm. 3Long, Thick, Crumbly, Deformed, Discolored, Brittle, Dystrophic, 4mm. 4Long, Thick, Crumbly, Deformed, Discolored, Brittle, Dystrophic,3mm. 5Long, Thick, Crumbly, Deformed, Discolored, Brittle, [id number]. Modifier: -Q9, Parastesias. Vascular: palp pulses bilat and good color and refill digits. minimal edema. Neurologic: Vibratory sensation, shapr/dull and light touch are decreased to the plantar foot bilateral, all toes involved. Ankle / Foot: Good strength and ROM bilat, no kari or legs tenderness. neg homans sign. 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 any new problems with appt sugg. pain can b treated with topical or oral measures, many were offered. pain can b managed with topcial or oral methods and offered today Daily cleanse and AB ointment planned every day x 1wk documented in this encounter [facility] 07-15-2024 History of Present illness Narrative Subjective Patient ID: Bret Yap is a 84 y.o. male who presents for Follow-up (Nailcare). Last seen date: 06-21-24 Last seen diagnosing provider: Faizan Bragg MD Nail care Location nails on bilateral feet Severity of symptoms mild Onset gradual Status no change Context hard to trim, hard to reach Nails thickened, discolored, pain Relieved by debridement, filing down nails, clipping nails History of ulcers/wounds no Aggravated by shoe gear, pressure Callus left sub1 minimal Red wound r post heel 1wk. Pain at times Dark left 2 corn ROS General: Chillsdenies. Feverdenies. Musculoskeletal: muscle weaknessdenies. Bone/joint symptomsdenies. Peripheral Vascular: Edemadenies. Hx of blood clots in legsdenies. Raynaud'sdenies. Rest pain denies. Ulceration of feetdenies. Varicose veinsdenies. Skin: Hyperpigmentationdenies. Nail changesdenies. Rashdenies. Skin lesion(s)denies. Neurologic: Gait abnormalitydenies. Tingling/Numbnessdenies. Current Medications Current Outpatient Medications: allopurinol (Zyloprim) 300 MG tablet, 1 (one) time each day at the same time, Disp: , Rfl: amLODIPine (Norvasc) 2.5 MG tablet, Take 1 tablet by mouth Daily, Disp: , Rfl: aspirin 81 MG chewable tablet, Chew 81 mg in the morning., Disp: , Rfl: atorvastatin (Lipitor) 10 MG tablet, Take 10 mg by mouth, Disp: , Rfl: eplerenone (Inspra) 25 MG tablet, Take 25 mg by mouth Daily, Disp: , Rfl: esomeprazole (NexIUM) [address] capsule, 1 capsule 1 (one) time each day at the same time, Disp: , Rfl: furosemide (Lasix) 20 MG tablet, 1 (one) time each day at the same time, Disp: , Rfl: hydrocortisone 2.5 % cream, Apply topically 2 (two) times a day as needed (Rash) Apply thin layer to affected areas on the face bid prn for flares, Disp: 30 g, Rfl: 1 isosorbide mononitrate ER (Imdur) 30 MG 24 hr tablet, , Disp: , Rfl: latanoprost (Xalatan) 0.005 % ophthalmic solution, , Disp: , Rfl: montelukast (Singulair) 10 MG tablet, , Disp: , Rfl: Omeprazole 20 MG tablet delayed-release, Take 20 mg by mouth in the morning., Disp: , Rfl: rivaroxaban (Xarelto) 2.5 MG tablet, , Disp: , Rfl: Xarelto 20 MG tablet, Take 20 mg by mouth in the evening. Take with meals, Disp: , Rfl: Allergies Indomethacin, Sulfa antibiotics, and Trimethoprim Medical Histories Past Medical History: Diagnosis Date A-fib (CMS/HCC) Actinic keratosis Basal cell carcinoma chin GERD (gastroesophageal reflux disease) Gout HTN (hypertension) (CMS/HCC) Squamous cell skin cancer left cheek, left arm Surgical Histories Past Surgical History: Procedure Laterality Date ARTHROSCOPY SHOULDER / OPEN SHOULDER Bilateral [address] Michelle LEG SURGERY Right vascular ORIF TIBIA & FIBULA FRACTURES Right TONSILLECTOMY Hospitalizations Family History Family History Problem Relation Name Age of Onset Cancer Father Cancer Father's Sister Cancer Father's Brother Melanoma Neg Hx Objective Foot Exam General Examination: alert, well hydrated, in no distress , awake, aware of surroundings. Dermatologic: post heel 1.5 cm superficial wound, red and mild serous fluid NAIL PATHOLOGY:digits 1-5 bilateral are intact. atrophic skin with neg digital hair and hyperpigmentation-. HYPERKERATOSIS-left 2 DIPJ hick and dark. Left med 1st MPJ thick and cracking Nail Pathology: Left Foot: 1 (great toe)Long, Thick, Crumbly, Deformed, Discolored, Brittle, Dystrophic 5 mm. 2Long, Thick, Crumbly, Deformed, Discolored, Brittle, Dystrophic 6mm. 3Long, Thick, Crumbly, Deformed, Discolored, Brittle, Dystrophic 5 mm. 4Long, Thick, Crumbly, Deformed, Discolored, Brittle, Dystrophic, 4mm. 5Long, Thick, Crumbly, Deformed, Discolored, Brittle, [id number]. Nail Pathology: Right Foot: 1 (great toe)Long, Thick, Crumbly, Deformed, Discolored, Brittle, Dystrophic 5 mm. 2Long, Thick, Crumbly, Deformed, Discolored, Brittle, Dystrophic 5mm. 3Long, Thick, Crumbly, Deformed, Discolored, Brittle, Dystrophic, 4mm. 4Long, Thick, Crumbly, Deformed, Discolored, Brittle, Dystrophic,3mm. 5Long, Thick, Crumbly, Deformed, Discolored, Brittle, [id number]. Modifier: -Q9, Parastesias. Vascular: palp pulses bilat and good color and refill digits. minimal edema. Neurologic: Vibratory sensation, shapr/dull and light touch are decreased to the plantar foot bilateral, all toes involved. Ankle / Foot: Good strength and ROM bilat, no kari or legs tenderness. neg homans sign. 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 New wound from old shoes post rt heel Nails: all thick and dystrophic nails debrided of all affected and loose material Neuropathy: caution for wounds and regular inspections. any new problems with appt sugg. pain can b treated with topical or oral measures, many were offered. pain can b managed with topcial or oral methods and offered today Lesion debrided left 2, Callus: all hyperkeratotic tissue debrided to all areas described above sharply with a #15 blade Daily cleanse and AB drsg planned. Call if any incr redness, swelling, pain or drainage. Risk of infection entering deep tissues or bone leading to amputation reviewed documented in this encounter [facility] 06-14-2024 History of Present illness Narrative Follow up Diagnosis: Eczematous Dermatitis Location: face Last visit: 3 months ago Symptoms: less scaly and dry on the forehead; has other spots on the temples Status: improved Current treatment: Hydrocortisone 2.5% cream; Recommend patient wash with Cetaphil soap All pertinent medical history, medications, and allergies were reviewed. General Exam: alert, oriented to person, place, and time, normal affect, well appearing A focused exam completed based on patient reported problems, see below: 1. Other specified dermatitis Head - Anterior (Face) Less scaly erythematous patches. Nearly clear, Improved today. At this time as patient is improved but not at treatment goal, plan to continue current treatment. Instructed patient to use the Hydrocortisone cream bid when flared and hold when clear. No refills needed today. Plan to follow up in as scheduled Related Medications hydrocortisone 2.5 % cream Apply topically 2 (two) times a day as needed (Rash) Apply thin layer to affected areas on the face bid prn for flares 2. Actinic keratosis (2) Left Zygomatic Area, Right Zygomatic Area Erythematous scaly papules Patient was counseled regarding these sun-induced growths that can develop into squamous cell carcinoma if left untreated. Discussed treatment with cryotherapy. It was emphasized that any treated lesions that fail to resolve should be re-evaluated. Cryotherapy performed today; see procedure note Diagnosis: Actinic keratosis Indication: Precancerous Location: see skin exam Consent: Verbal consent was obtained and risks were discussed, including, but not limited to risks of scarring, darker or traffic court magistrate pigmentary changes, recurrence, incomplete removal and infection. Method: Liquid nitrogen was used to treat the lesion(s) with two 5-10 second freeze-thaw cycles. Number of lesions treated: 2 Post-procedure instructions: Instructions were given orally and in writing. The office will be contacted if the lesion fails to resolve despite treatment, or if a side effect develops such as abnormal crusting, scabbing, redness or tenderness Cryotherapy, skin lesion - Left Zygomatic Area, Right Zygomatic Area Next Visit: as scheduled documented in this encounter [facility] 05-13-2024 History of Present illness Narrative Subjective Patient ID: Bret Yap is a 84 y.o. male who presents for Follow-up (Nailcare). Last seen date: 11-19-23 Last seen diagnosing provider: Faizan Bragg MD Nail care Location nails on bilateral feet Severity of symptoms mild Onset gradual Status no change Context hard to trim, hard to reach Nails thickened, discolored, pain Relieved by debridement, filing down nails, clipping nails History of ulcers/wounds no Aggravated by shoe gear, pressure Callus left sub1 minimal ROS General: Chillsdenies. Feverdenies. Musculoskeletal: muscle weaknessdenies. Bone/joint symptomsdenies. Peripheral Vascular: Edemadenies. Hx of blood clots in legsdenies. Raynaud'sdenies. Rest pain denies. Ulceration of feetdenies. Varicose veinsdenies. Skin: Hyperpigmentationdenies. Nail changesdenies. Rashdenies. Skin lesion(s)denies. Neurologic: Gait abnormalitydenies. Tingling/Numbnessdenies. Current Medications Current Outpatient Medications: allopurinol (Zyloprim) 300 MG tablet, 1 (one) time each day at the same time., Disp: , Rfl: amLODIPine (Norvasc) 2.5 MG tablet, Take 1 tablet by mouth Daily, Disp: , Rfl: aspirin 81 MG chewable tablet, Chew 81 mg in the morning., Disp: , Rfl: atorvastatin (Lipitor) 10 MG tablet, Take 10 mg by mouth, Disp: , Rfl: eplerenone (Inspra) 25 MG tablet, Take 25 mg by mouth in the morning., Disp: , Rfl: esomeprazole (NexIUM) [address] capsule, 1 capsule 1 (one) time each day at the same time., Disp: , Rfl: furosemide (Lasix) 20 MG tablet, 1 (one) time each day at the same time., Disp: , Rfl: hydrocortisone 2.5 % cream, Apply topically 2 (two) times a day as needed (Rash) Apply thin layer to affected areas on the face bid prn for flares, Disp: 30 g, Rfl: 1 isosorbide mononitrate ER (Imdur) 30 MG 24 hr tablet, Refills(s) 0, Disp: , Rfl: latanoprost (Xalatan) 0.005 % ophthalmic solution, instill 1 (ONE) drop IN BOTH EYES once daily in the evening, Disp: , Rfl: montelukast (Singulair) 10 MG tablet, .COMPLEX, Disp: , Rfl: Omeprazole 20 MG tablet delayed-release, Take 20 mg by mouth in the morning., Disp: , Rfl: rivaroxaban (Xarelto) 2.5 MG tablet, 1 tablet with food orally, Disp: , Rfl: Xarelto 20 MG tablet, Take 20 mg by mouth in the evening. Take with meals, Disp: , Rfl: Allergies Indomethacin, Sulfa antibiotics, and Trimethoprim Medical Histories Past Medical History: Diagnosis Date A-fib (CMS/HCC) Actinic keratosis Basal cell carcinoma chin GERD (gastroesophageal reflux disease) Gout HTN (hypertension) (CMS/HCC) Squamous cell skin cancer left cheek, left arm Surgical Histories Past Surgical History: Procedure Laterality Date ARTHROSCOPY SHOULDER / OPEN SHOULDER Bilateral [address] Michelle LEG SURGERY Right vascular ORIF TIBIA & FIBULA FRACTURES Right TONSILLECTOMY Hospitalizations Family History Family History Problem Relation Name Age of Onset Cancer Father Cancer Father's Sister Cancer Father's Brother Melanoma Neg Hx Objective Foot Exam General Examination: alert, well hydrated, in no distress , awake, aware of surroundings. Dermatologic: NAIL PATHOLOGY:digits 1-5 bilateral are intact. atrophic skin with neg digital hair and hyperpigmentation-. HYPERKERATOSIS-left 2 DIPJ minimal. Left med 1st MPJ minimal Nail Pathology: Left Foot: 1 (great toe)Long, Thick, Crumbly, Deformed, Discolored, Brittle, Dystrophic 5 mm. 2Long, Thick, Crumbly, Deformed, Discolored, Brittle, Dystrophic 6mm. 3Long, Thick, Crumbly, Deformed, Discolored, Brittle, Dystrophic 5 mm. 4Long, Thick, Crumbly, Deformed, Discolored, Brittle, Dystrophic, 4mm. 5Long, Thick, Crumbly, Deformed, Discolored, Brittle, [id number]. Nail Pathology: Right Foot: 1 (great toe)Long, Thick, Crumbly, Deformed, Discolored, Brittle, Dystrophic 5 mm. 2Long, Thick, Crumbly, Deformed, Discolored, Brittle, Dystrophic 5mm. 3Long, Thick, Crumbly, Deformed, Discolored, Brittle, Dystrophic, 4mm. 4Long, Thick, Crumbly, Deformed, Discolored, Brittle, Dystrophic,3mm. 5Long, Thick, Crumbly, Deformed, Discolored, Brittle, [id number]. Modifier: -Q9, Parastesias. Vascular: palp pulses bilat and good color and refill digits. minimal edema. Neurologic: Vibratory sensation, shapr/dull and light touch are decreased to the plantar foot bilateral, all toes involved. Ankle / Foot: Good strength and ROM bilat, no kari or legs tenderness. neg homans sign. 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 any new problems with appt sugg. pain can b treated with topical or oral measures, many were offered. pain can b managed with topcial or oral methods and offered today Lesion debrided left 2 documented in this encounter [facility] 05-04-2024 History of Present illness Narrative 05/04/24 1307 Treatment Diagnosis Treatment Diagnosis 1 Angina Angina Date 01/23/24 Referral Date 01/26/24 Significant Cardiovascular History Chronic atrial fibrillation Individual Treatment Plan ITP Visit Type Discharge, completed program Visit #/Total Visits 36/36 EF% 50 % Risk Stratification High Supplemental Oxygen Oxygen Use No Exercise Assessment Stages of Change Action Assisted Devices None Test Exercise tolerance test Data Measured Before Test Heart Rate 67 Resting Blood Pressure 118/50 O2 Device Room air Data Measured During Test Indicate Mode of RPE 6 minutes/submax Modality Treadmill Treadmill Speed 2.3 mph Treadmill Grade 12 % METS 6.4 Symptoms Fatigue Problems While Exercising NONE Blood Pressure 136/48 SpO2 96 % RPE 15 RPD 5 Data Measured at Peak Peak Heart Rate 120 Peak Blood Pressure 136/48 Peak RPE 15 SpO2 96 Data Measured at 5 Minutes After Test Heart Rate 64 Blood Pressure 118/72 Comments PT DENIES PAIN OR OTHER DIFFICULTY POST-TEST Exercise Intervention/Prescription Mode Treadmill;Bike;Stepper;Ergometer;Ro wer;Resistance training Frequency per week 3 D/WK Duration Per Session 40-60 MIN Intensity METS avg 5.1 mets RPE 12-16 Progression >0.5-1.0 METS / MONTH Symptoms with Exercise Shortness of breath Target Heart Rate 90-102 Resistance Training Yes Exercise Activity at Home Type WALKING Frequency >/= 3 DAYS / WK Duration 30-60 MIN. Resistance Training Yes Exercise Education Education Attended class (pt educated on exercise basics and home exercise) Exercise Goals Patient Target Goals Individual exercise RX;Maintain exercise and activity at a moderate intensity;Aerobic activity 30 + minutes/day 5 days/week Patient Treatment Goal Pt will be able to increase aerobic functional capacity >0.5 mets with less shortness of breath in the next 30 days. Goal Status Met Progress Towards Goal avg mets increased from 2.8 to 5.1 over the program Psychosocial Assessment Stages of Change Action (PHQ-6 SCORE 3 / PABLO-7 SCORE 0) Psychosocial Intervention Interventions No intervention indicated Stress Management Techniques Uses guided meditation;Practices deep breathing;Maintains physical exercise and healthy nutrition;Manages social media time;Connects with others Currently Taking Psychotropic Meds No Medication Changes No Psychosocial Education Education Relaxation techniques (pt educated on mind body connection and being stress sarmiento) Psychosocial Goals Patient Target Goals Assess presence or absence of depression using a valid screening tool (PHQ-9 INIITAL SCORE = 3) Patient Treatment Goal Pt will be able to learn diaphragmatic breathing & PMR and accurately demonstrate within the next 30 days Goal Status Met Progress Towards Goal completed and pt engaging Other Core Component - Tobacco Cessation History of Tobacco Use No Nutrition Assessment Stages of Change Action Nutrition Assessment Tool Other (comment) (REAPS NUTRITION SCORE=32 making many healthy choices ) Current Diet Pt report eating a healthy variety but could do better Barriers to Heart Healthy Diet NONE Alcohol No Height 1.88 m (6' 2 ) Weight 92.5 kg (204 lb) BMI 26.25 Waist Circumference (In) 44 Other Core Component - Weight Management BMI <18.5 or > 24.9, Managed as Core Component No Other Core Component - Diabetes Diabetes No Not Managed as a Core Component HgbA1c n/a Other Core Component - Lipid Management Lipids Managed as Core Component Yes Lipid Management Assessment Stages of Change Maintenance Date Lipids Drawn 04/26/24 Total 133 HDL 48 LDL 54 Triglycerides 53 Lipid Management Interventions Lipid Med(s) N/A Lipid Med Change(s) No Demonstrates Medication Compliance Yes Medication Schedule Provided Yes Lipid Management Education Resource Information Provided Yes Staff/Patient Discussion Yes Lipid Management Goals Patient Target Goals LDL-C less than 70 and non-HDL-C <100 for those with ASCVD;Triglycerides <150 Patient Treatment Goal Pt will maintain a mostly healthy lipid profile, except improve lowering LDL 10-20 pts at the next lipid drawn TBD. Goal Status Met Progress Towards Goal pt not only maintained a healthy lipid profile but actually exceeded in doing so. his total cho, LDL, and Trig. all lowered based on his last fasting labs and significantly improved throughout his program. Nutrition Intervention Dietitian Consult No Staff/Patient Discussion Yes Supplemental Nutrition N/A Diabetes Education Referral No Lipid Clinic Referral No Nutrition Education Resource Information Provided Yes Education (pt educated on reducing heart disease risk, healthy nutrition 1, advanced nutrition) Nutrition Goals Patient Target Goals LDL-C less than 70 and non-HDL-C <100 for those with ASCVD;Waist less than 40 inches males, 35 for females;Weight loss of 5-10% Patient Treatment Goal Patient will learn and implement the Mediterranean nutrition plan in the next 30 days. Goal Status Met Progress Towards Goal pt continuing to try to eat med. diet and make healtier choices altogether Education Learning Barrier Ready to learn Education Schedule Given Yes (CARDIAC KNOWLEDGE TEST SC. = 90%) Other Core Component - Hypertension Hypertension No Is BP WDL Yes Hypertension Managed as Core Component No Hypertension Management Assessment Stages of Change Action Resting BP 118/50 Post BP 118/72 Is BP WDL Yes Symptoms NONE REP'D Hypertension Management Interventions BP Medications METOPROLOL ONLY Demonstrates Medication Compliance Yes Recent Medication Changes No Patient Monitoring BP at Home No Physician Notified No Hypertension Management Education Resource Information Provided Yes Staff/Patient Discussion Yes Hypertension Management Goals Patient Target Goals Resting BP within ACC/AHA BP guidelines;Verbalize factors that can elevate BP;Medication Compliance;Understands importance of self-monitoring Patient Treatment Goal Pt will begin home BP self-monitoring QD and tracking within the next 30 days Goal Status Met Progress Towards Goal goal partially met, pt occ. checks Medications Resource Information Provided Yes Med(s) Change No BP Meds n/a DOUGLAS/ARB/ARNI Prescribed No BB Prescribed Yes BB Adherent Yes Antiplatelet/Anticoagulant Prescribed Yes Antiplatelet/Anticoagulant Adherent Yes Statins/Anti-hyperlipidemic Prescribed No Other Core Component - Medication Compliance Medication Compliance Managed as Core Component Yes Medication Compliance Assessment Stages of Change Maintenance Barriers to Medication Compliance none Medication Compliance Interventions Staff/Patient Discussion Yes Medications Reviewed with Patient Yes Medication Compliance Education Resource Information Provided Yes Education Program book Medication Compliance Goals Patient Target Goals Demonstrates medication compliance;Verbalizes correct medication method;Verbalizes understanding of medication purposes Patient Treatment Goal Patient will maintain 100% continued medication compliance the next 30 days. Goal Status Met Progress Towards Goal goal met / pt documented in this encounter [facility] 04-30-2024 Evaluation note Diagnosis Onset Date Resolution Acute balanitis due to infection acute April 30 10:38am Chronic nasal congestion acute April 30, 2024 10:38am Dyspnea acute April 30, 2024 10:38am Uncircumcised male acute Januar 2024 10:38am Acute balanitis due to infection acute May 07 8:52am Chronic nasal congestion acute May 07, 2024 8:52am Dyspnea acute May 07, 2024 8:52am Elevated PSA acute May 8:52am Chronic atrial fibrillation chronic May 07 8:52am Nasal congestion acute May 26, 2024 11:03am Post-nasal drip acute May 26, 2024 11:03am [facility] Work Phone: [phone]) 876-477101-27-2025 History of Present illness Narrative* Randi Gunn, PT - 04/26/2024 7:50 AM EST 04/26/24 0742 Treatment Diagnosis Treatment Diagnosis 1 Angina Angina Date 01/23/24 Referral Date 01/26/24 Significant Cardiovascular History Chronic atrial fibrillation Individual Treatment Plan ITP Visit Type Re-assessment ITP Next Review Date 05/24/24 Visit #/Total Visits 31/36 EF% 50 % Risk Stratification High Supplemental Oxygen Oxygen Use No Exercise Assessment Stages of Change Action Assisted Devices None Test Stress test Data Measured Before Test Heart Rate 59 Resting Blood Pressure 132/64 O2 Device Room air Data Measured During Test RPD 4 Data Measured at Peak Peak Heart Rate 107 Peak Blood Pressure 134/68 Peak RPE 13 Data Measured at 5 Minutes After Test Heart Rate 63 Blood Pressure 128/68 Comments PT DENIES PAIN OR OTHER DIFFICULTY POST-TEST Exercise Intervention/Prescription Mode Treadmill;Bike;Stepper;Ergometer;Rower;Resistance training Frequency per week 3 D/WK Duration Per Session 40-60 MIN Intensity METS 3.5-4.5 RPE 12-16 Progression >0.5-1.0 METS / MONTH Symptoms with Exercise Shortness of breath Target Heart Rate 90-102 Resistance Training Yes Exercise Activity at Home Type WALKING Frequency >/= 3 DAYS / WK Duration 30-60 MIN. Resistance Training Yes Exercise Education Education (pt educated on exercise basics and home exercise) Exercise Goals Patient Target Goals Individual exercise RX;Maintain exercise and activity at a moderate intensity;Aerobic activity 30 + minutes/day 5 days/week Patient Treatment Goal Pt will be able to increase aerobic functional capacity >0.5 mets with less shortness of breath in the next 30 days. Goal Status In progress Progress Towards Goal avg mets increased from 4.0 to 4.5 in the past 30 days, pt meeting goal and tolerating exercise well Psychosocial Assessment Stages of Change Action (PHQ-6 SCORE 3 / PABLO-7 SCORE 0) Psychosocial Intervention Interventions No intervention indicated Stress Management Techniques Uses guided meditation;Practices deep breathing;Maintains physical exercise and healthy nutrition;Manages social media time;Connects with others Currently Taking Psychotropic Meds No Medication Changes No Psychosocial Education Education Relaxation techniques (pt educated on mind body connection and being stress sarmiento) Psychosocial Goals Patient Target Goals Assess presence or absence of depression using a valid screening tool (PHQ-9 INIITAL SCORE = 3) Patient Treatment Goal Pt will be able to learn diaphragmatic breathing & PMR and accurately demonstrate within the next 30 days Goal Status Met Progress Towards Goal introduced and completed Other Core Component - Tobacco Cessation History of Tobacco Use No Nutrition Assessment Stages of Change Action Nutrition Assessment Tool Other (comment) (REAPS NUTRITION SCORE=32 making many healthy choices ) Current Diet Pt report eating a healthy variety but could do better Barriers to Heart Healthy Diet NONE Alcohol No Height 1.88 m (6' 2 ) Weight 92.5 kg (204 lb) BMI 26.25 Waist Circumference (In) 43 IN Other Core Component - Weight Management BMI <18.5 or > 24.9, Managed as Core Component No Other Core Component - Diabetes Diabetes No Not Managed as a Core Component HgbA1c n/a Other Core Component - Lipid Management Lipids Managed as Core Component Yes Lipid Management Assessment Stages of Change Action Date Lipids Drawn 12/22/23 Total 155 HDL 50 LDL 92 Triglycerides 66 Lipid Management Interventions Lipid Med(s) N/A Lipid Med Change(s) No Demonstrates Medication Compliance Yes Medication Schedule Provided Yes Lipid Management Education Resource Information Provided Yes Staff/Patient Discussion Yes Lipid Management Goals Patient Target Goals LDL-C less than 70 and non-HDL-C <100 for those with ASCVD;Triglycerides <150 Patient Treatment Goal Pt will maintain a mostly healthy lipid profile, except improve lowering [id number] pts at the next lipid drawn TBD. Goal Status In progress Progress Towards Goal pt continuing exrx, no new labs Nutrition Intervention Dietitian Consult No Staff/Patient Discussion Yes Supplemental Nutrition N/A Diabetes Education Referral No Lipid Clinic Referral No Nutrition Education Resource Information Provided Yes Education Signs/symptoms/treatment of hypo/hyperglycemia;Low saturated fat diet;Low sodium diet;Limit added sugars;Overall healthy eating pattern that emphasizes vegetables, fruits, wholegrains, healthy proteins and non-tropical oils;Reduced calorie/portion controlled diet (pt educated on reducing heart disease risk, healthy nutrition 1, advanced nutrition) Nutrition Goals Patient Target Goals LDL-C less than 70 and non-HDL-C <100 for those with ASCVD;Waist less than 40 inches males, 35 for females;Weight loss of 5-10% Patient Treatment Goal Patient will learn and implement the Mediterranean nutrition plan in the next 30 days. Goal Status In progress Progress Towards Goal pt continues regular exercise, no update / pt on med. diet being incorporated Education Learning Barrier Ready to learn Education Schedule Given Yes (CARDIAC KNOWLEDGE TEST SC. = 90%) Other Core Component - Hypertension Hypertension No Is BP WDL Yes Hypertension Managed as Core Component No Hypertension Management Assessment Stages of Change Action Resting BP 132/64 Post BP 128/68 Is BP WDL Yes Symptoms NONE REP'D Hypertension Management Interventions BP Medications METOPROLOL ONLY Demonstrates Medication Compliance Yes Recent Medication Changes No Patient Monitoring BP at Home No Physician Notified No Hypertension Management Education Resource Information Provided Yes Staff/Patient Discussion Yes Hypertension Management Goals Patient Target Goals Resting BP within ACC/AHA BP guidelines;Verbalize factors that can elevate BP;Medication Compliance;Understands importance of self-monitoring Patient Treatment Goal Pt will begin home BP self-monitoring QD and tracking within the next 30 days Goal Status In progress Progress Towards Goal pt occ checks Medications Resource Information Provided Yes Med(s) Change No BP Meds n/a DOUGLAS/ARB/ARNI Prescribed No BB Prescribed Yes BB Adherent Yes Antiplatelet/Anticoagulant Prescribed Yes Antiplatelet/Anticoagulant Adherent Yes Statins/Anti-hyperlipidemic Prescribed No Other Core Component - Medication Compliance Medication Compliance Managed as Core Component Yes Medication Compliance Assessment Stages of Change Action;Maintenance Barriers to Medication Compliance none Medication Compliance Interventions Staff/Patient Discussion Yes Medications Reviewed with Patient Yes Medication Compliance Education Resource Information Provided Yes Education Program book Medication Compliance Goals Patient Target Goals Demonstrates medication compliance;Verbalizes correct medication method;Verbalizes understanding of medication purposes Patient Treatment Goal Patient will maintain 100% continued medication compliance the next 30 days. Goal Status In progress Progress Towards Goal meeting / [facility] of Present illness Narrative* Andrew Hubbard, [facility] - 03/29/2024 10:18 AM EST 03/29/24 1013 Treatment Diagnosis Treatment Diagnosis 1 Angina Referral Date 01/26/24 Significant Cardiovascular History Chronic atrial fibrillation Individual Treatment Plan ITP Visit Type Re-assessment ITP Next Review Date 04/26/24 Visit #/Total Visits 20/ EF% 50 % Risk Stratification High Supplemental Oxygen Oxygen Use No Exercise Assessment Stages of Change Action Assisted Devices None Test Stress test Data Measured Before Test Heart Rate 64 Resting Blood Pressure 126/66 Data Measured During Test RPD 4 Data Measured at Peak Peak Heart Rate 106 Peak Blood Pressure 136/52 Peak RPE 13 Data Measured at 5 Minutes After Test Heart Rate 60 Blood Pressure 122/74 Comments PT DENIES PAIN OR OTHER DIFFICULTY POST-TEST Exercise Intervention/Prescription Mode Treadmill;Bike;Stepper;Ergometer;Rower;Resistance training Frequency per week 3 D/WK Duration Per Session 40-60 MIN Intensity METS 3.5-4.5 RPE 12-16 Progression >0.5-1.0 METS / MONTH Symptoms with Exercise Shortness of breath Target Heart Rate 90-102 Resistance Training Yes Exercise Activity at Home Type WALKING Frequency >/= 3 DAYS / WK Duration 30-60 MIN. Resistance Training Yes Exercise Education Education Self pulse;Exercise safety;Signs/symptoms to report;RPE scale;Equipment orientation;Warm up/cool down;Physically active Exercise Goals Patient Target Goals Individual exercise RX;Maintain exercise and activity at a moderate intensity;Aerobic activity 30 + minutes/day 5 days/week Patient Treatment Goal Pt will be able to increase aerobic functional capacity >0.5 mets with less shortness of breath in the next 30 days. Goal Status In progress Progress Towards Goal avg mets increased to approx 4.0 mets Psychosocial Assessment Stages of Change Action (PHQ-6 SCORE 3 / PABLO-7 SCORE 0) Psychosocial Intervention Interventions No intervention indicated Stress Management Techniques Uses guided meditation;Practices deep breathing;Maintains physical exercise and healthy nutrition;Manages social media time;Connects with others Currently Taking Psychotropic Meds No Medication Changes No Psychosocial Education Education Benefits of CPR completion;Cardiac meds;Coping techniques;Environmental triggers;Impact self care behaviors on health;Relaxation techniques;Signs/symptoms of depression;Stress management cla ss Psychosocial Goals Patient Target Goals Assess presence or absence of depression using a valid screening tool (PHQ-9 INIITAL SCORE = 3) Patient Treatment Goal Pt will be able to learn diaphragmatic breathing & PMR and accurately demonstrate within the next 30 days Goal Status Initial Progress Towards Goal class cycle has not reached mental health portion yet. to be completed Other Core Component - Tobacco Cessation History of Tobacco Use No Nutrition Assessment Stages of Change Preparation;Action Nutrition Assessment Tool Other (comment) (REAPS NUTRITION SCORE=32 making many healthy choices ) Current Diet Pt report eating a healthy variety but could do better Barriers to Heart Healthy Diet NONE Alcohol No Height 1.88 m (6' 2 ) Weight 91.4 kg (201 lb 6.4 oz) BMI 25.91 Waist Circumference (In) 43 IN Other Core Component - Weight Management BMI <18.5 or > 24.9, Managed as Core Component No Other Core Component - Diabetes Diabetes No Not Managed as a Core Component HgbA1c n/a Other Core Component - Lipid Management Lipids Managed as Core Component Yes Lipid Management Assessment Stages of Change Action Date Lipids Drawn 12/22/23 Total 155 HDL 50 LDL 92 Triglycerides 66 Lipid Management Interventions Lipid Med(s) N/A Lipid Med Change(s) No Demonstrates Medication Compliance Yes Medication Schedule Provided Yes Lipid Management Education Resource Information Provided Yes Staff/Patient Discussion Yes Lipid Management Goals Patient Target Goals LDL-C less than 70 and non-HDL-C <100 for those with ASCVD;Triglycerides <150 Patient Treatment Goal Pt will maintain a mostly healthy lipid profile, except improve lowering [id number] pts at the next lipid drawn TBD. Goal Status In progress Progress Towards Goal NO labs set to be drawn, pt exercising in rehab to help with lowering LDL Nutrition Intervention Dietitian Consult No Staff/Patient Discussion Yes Supplemental Nutrition N/A Diabetes Education Referral No Lipid Clinic Referral No Nutrition Education Resource Information Provided Yes Education Signs/symptoms/treatment of hypo/hyperglycemia;Low saturated fat diet;Low sodium diet;Limit added sugars;Overall healthy eating pattern that emphasizes vegetables, fruits, wholegrains, healthy proteins and non-tropical oils;Reduced calorie/portion controlled diet Nutrition Goals Patient Target Goals LDL-C less than 70 and non-HDL-C <100 for those with ASCVD;Waist less than 40 inches males, 35 for females;Weight loss of 5-10% Patient Treatment Goal Patient will learn and implement the Mediterranean nutrition plan in the next 30 days. Goal Status In progress Progress Towards Goal Pt participating in rehab to help lower measurements to achieve goals listed above Education Learning Barrier Ready to learn Education Schedule Given Yes (CARDIAC KNOWLEDGE TEST SC. = 90%) Other Core Component - Hypertension Hypertension No Is BP WDL Yes Hypertension Managed as Core Component No Hypertension Management Assessment Stages of Change Action Resting BP 126/66 Post BP 136/52 Is BP WDL Yes Symptoms NONE REP'D Hypertension Management Interventions BP Medications METOPROLOL ONLY Demonstrates Medication Compliance Yes Recent Medication Changes No Patient Monitoring BP at Home No Physician Notified No Hypertension Management Education Resource Information Provided Yes Staff/Patient Discussion Yes Hypertension Management Goals Patient Target Goals Resting BP within ACC/AHA BP guidelines;Verbalize factors that can elevate BP;Medication Compliance;Understands importance of self-monitoring Patient Treatment Goal Pt will begin home BP self-monitoring QD and tracking within the next 30 days Goal Status In progress Progress Towards Goal patient occasionally checks at home, not consistently Medications Resource Information Provided Yes Med(s) Change No BP Meds n/a DOUGLAS/ARB/ARNI Prescribed No BB Prescribed Yes BB Adherent Yes Antiplatelet/Anticoagulant Prescribed Yes Antiplatelet/Anticoagulant Adherent Yes Statins/Anti-hyperlipidemic Prescribed No Other Core Component - Medication Compliance Medication Compliance Managed as Core Component Yes Medication Compliance Assessment Stages of Change Action;Maintenance Barriers to Medication Compliance none Medication Compliance Interventions Staff/Patient Discussion Yes Medications Reviewed with Patient Yes Medication Compliance Education Resource Information Provided Yes Education Program book Medication Compliance Goals Patient Target Goals Demonstrates medication compliance;Verbalizes correct medication method;Verbalizes understanding of medication purposes Patient Treatment Goal Patient will maintain 100% continued medication compliance the next 30 days. Goal Status In progress Progress Towards Goal meeting per pt [facility]* Diagnosis Onset Date Resolution Status Admit Date Bronchitis acute March 16, 2024 10:05am [facility] Work Phone: 1(519) 933-791712-17-2024 Evaluation note* Diagnosis Onset Date Resolution Status Admit Date Bronchitis acute March 16, 2024 10:05am Acute balanitis due to infection acute April 30 10:38am Chronic nasal congestion acute April 30, 2024 10:38am Dyspnea acute April 30, 2024 10:38am Uncircumcised male acute Januar y 2024 10:38am Acute balanitis due to infection acute May 07 8:52am Chronic nasal congestion acute May 07, 2024 8:52am Dyspnea acute May 07, 2024 8:52am Elevated PSA acute May 8:52am Chronic atrial fibrillation chronic May 07, 2024 8:52am [facility] Work Phone: 1(791) 169-338712-11-2024 History of Present illness Narrative* Carol Gusman DPM - 03/10/2024 11:30 AM EST Subjective Patient ID: Bret Yap is a 83 y.o. male who presents for Toenail Care. Last seen date: 11-19-23 Last seen diagnosing provider: Faizan Bragg MD Nail care Location nails on bilateral feet Severity of symptoms mild Onset gradual Status no change Context hard to trim, hard to reach Nails thickened, discolored, pain Relieved by debridement, filing down nails, clipping nails History of ulcers/wounds no Aggravated by shoe gear, pressure Callus left sub1 minimal ROS General: Chillsdenies. Feverdenies. Musculoskeletal: muscle weaknessdenies. Bone/joint symptomsdenies. Peripheral Vascular: Edemadenies. Hx of blood clots in legsdenies. Raynaud'sdenies. Rest pain denies. Ulceration of feetdenies. Varicose veinsdenies. Skin: Hyperpigmentationdenies. Nail changesdenies. Rashdenies. Skin lesion(s)denies. Neurologic: Gait abnormalitydenies. Tingling/Numbnessdenies. Current Medications Current Outpatient Medications: allopurinol (Zyloprim) 300 MG tablet, 1 (one) time each day at the same time., Disp: , Rfl: amLODIPine (Norvasc) 2.5 MG tablet, Take 1 tablet by mouth Daily, Disp: , Rfl: aspirin 81 MG chewable tablet, Chew 81 mg in the morning., Disp: , Rfl: atorvastatin (Lipitor) 10 MG tablet, Take 10 mg by mouth, Disp: , Rfl: eplerenone (Inspra) 25 MG tablet, Take 25 mg by mouth in the morning., Disp: , Rfl: esomeprazole (NexIUM) [address] capsule, 1 capsule 1 (one) time each day at the same time., Disp: , Rfl: furosemide (Lasix) 20 MG tablet, 1 (one) time each day at the same time., Disp: , Rfl: hydrocortisone 2.5 % cream, Apply topically 2 (two) times a day as needed (Rash) Apply thin layer to affected areas on the face bid prn for flares, Disp: 30 g, Rfl: 1 latanoprost (Xalatan) 0.005 % ophthalmic solution, instill 1 (ONE) drop IN BOTH EYES once daily in the evening, Disp: , Rfl: Omeprazole 20 MG tablet delayed-release, Take 20 mg by mouth in the morning., Disp: , Rfl: rivaroxaban (Xarelto) 2.5 MG tablet, 1 tablet with food orally, Disp: , Rfl: Allergies Indomethacin, Sulfa antibiotics, and Trimethoprim Medical Histories Past Medical History: Diagnosis Date A-fib ([facility]/HCC) Actinic keratosis Basal cell carcinoma chin GERD (gastroesophageal reflux disease) Gout HTN (hypertension) (CMS/HCC) Squamous cell skin cancer left cheek, left arm Surgical Histories Past Surgical History: Procedure Laterality Date ARTHROSCOPY SHOULDER / OPEN SHOULDER Bilateral [address] Michelle LEG SURGERY Right vascular ORIF TIBIA & FIBULA FRACTURES Right TONSILLECTOMY Hospitalizations Family History Family History Problem Relation Name Age of Onset Cancer Father Cancer Father's Sister Cancer Father's Brother Melanoma Neg Hx Objective Foot Exam General Examination: alert, well hydrated, in no distress , awake, aware of surroundings. Dermatologic: NAIL PATHOLOGY:digits 1-5 bilateral are intact. atrophic skin with neg digital hair and hyperpigmentation-. HYPERKERATOSIS-left 2 DIPJ minimal. Left med 1st MPJ minimal Nail Pathology: Left Foot: 1 (great toe)Long, Thick, Crumbly, Deformed, Discolored, Brittle, Dystrophic 5 mm. 2Long, Thick, Crumbly, Deformed, Discolored, Brittle, Dystrophic 6mm. 3Long, Thick, Crumbly, Deformed, Discolored, Brittle, Dystrophic 5 mm. 4Long, Thick, Crumbly, Deformed, Discolored, Brittle, Dystrophic, 4mm. 5Long, Thick, Crumbly, Deformed, Discolored, Brittle, [id number]. Nail Pathology: Right Foot: 1 (great toe)Long, Thick, Crumbly, Deformed, Discolored, Brittle, Dystrophic 5 mm. 2Long, Thick, Crumbly, Deformed, Discolored, Brittle, Dystrophic 5mm. 3Long, Thick, Crumbly, Deformed, Discolored, Brittle, Dystrophic, 4mm. 4Long, Thick, Crumbly, Deformed, Discolored, Brittle, Dystrophic,3mm. 5Long, Thick, Crumbly, Deformed, Discolored, Brittle, [id number]. Modifier: -Q9, Parastesias. Vascular: palp pulses bilat and good color and refill digits. minimal edema. Neurologic: Vibratory sensation, shapr/dull and light touch are decreased to the plantar foot bilateral, all toes involved. Ankle / Foot: Good strength and ROM bilat, no kari or legs tenderness. neg homans sign. 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 any new problems with appt sugg. pain can b treated with topical or oral measures, many were offered. pain can b managed with topcial or oral methods and offered today documented in this encounterParkland Health [id number] History of Present illness Narrative* GABRIEL Ricketts - 03/08/2024 10:50 AM EST Images from the original note were not included. Skin Check Location: Patient requests a skin examination from the waist up Dermatologic history: history of Actinic Keratosis, history of Basal Cell Carcinoma (chin), historyof Squamous Cell Carcinoma (left cheek, left arm) Last visit: 1 year ago Lesions: Location: forehead, temples, cheeks Duration: months Quality: itchy Associated symptoms: red, dry, scaly Treatments: none Established patient of Anastasia Ritter MD All pertinent medical history, medications, and allergies were reviewed. General Exam: alert, oriented to person, place, and time, normal affect, well appearing A complete skin exam was offered, pt declined. Areas not examined despite medical recommendation: From the waist down Scalp, Examined Head, Face Examined Neck Examined Chest Examined Back Examined Abdomen Examined Right arm Examined Left arm Examined Hands Examined Digits,nails: Examined Lymphatics: Not examined 1. Other specified dermatitis Head - Anterior (Face) Scaly erythematous patches with dyspigmentation, lichenification, excoriations. Flaring today Discussed that atopic dermatitis is a chronic condition that can be controlled but not cured. StartHydrocortisone 2.5% cream bid prn when flared, hold if smooth/asymptomatic. Encouraged daily moisturizing and gentle cleansers to prevent flares. Recommend patient wash with Cetaphil soap rather than Dial soap. Sample given. hydrocortisone 2.5 % cream - Head - Anterior (Face) Apply topically 2 (two) times a day as needed (Rash) Apply thin layer to affected areas on the facebid prn for flares 2. History of basal cell carcinoma Chin No evidence of recurrence at BCC scar. The patient was counseled that scars from excisional sites of nonmelanoma skin cancers should be monitored closely for recurrence. The patient was instructed to contact the office for any new, changing, or symptomatic moles. The patient was also instructed to contact the office for any new lesions that develop within or around the previous surgery scar. 3. Personal history of squamous cell carcinoma of skin (2) Left Arm, Left Cheek No evidence of recurrence at SCC scar. The patient was counseled that scars from excisional sites of nonmelanoma skin cancers should be monitored closely for recurrence. The patient was instructed to contact the office for any new, changing, or symptomatic moles. The patient was also instructed to contact the office for any new lesions that develop within or around the previous surgery scar. 4. Seborrheic keratosis (4) Dorsum of Nose, Generalized, Left Arm, Right Arm Stuck on verrucous, variably pigmented papules and plaques. Patient was counseled regarding these benign growths. Removal is normally not necessary, but they may be removed if they are symptomatic or for cosmetic reasons. 5. Actinic keratosis (3) Right Dorsal Hand, Right Ear (2) Erythematous scaly papules Patient was counseled regarding these sun-induced growths that can develop into squamous cell carcinoma if left untreated. Discussed treatment with cryotherapy. It was emphasized that any treated lesions that fail to resolve should be re- evaluated. Cryotherapy performed today; see procedure note Diagnosis: Actinic keratosis Indication: Precancerous Location: see skin exam Consent: Verbal consent was obtained and risks were discussed, including, but not limited to risks of scarring, darker or traffic court magistrate pigmentary changes, recurrence, incomplete removal and infection. Method: Liquid nitrogen was used to treat the lesion(s) with two 5-10 second freeze-thaw cycles. Number of lesions treated: 3 Post-procedure instructions: Instructions were given orally and in writing. The office will be contacted if the lesion fails to resolve despite treatment, or if a side effect develops such as abnormal crusting, scabbing, redness or tenderness Cryotherapy, skin lesion - Right Dorsal Hand, Right Ear (2) 6. Neoplasm of unspecified behavior of bone, soft tissue, and skin Right Dorsal Hand Hyperkeratotic papule Lesion biopsy Type of biopsy: tangential Informed consent: discussed and consent obtained Informed consent comment: The risks and benefits of the biopsy were discussed. Risks include but are not limited to bleeding, infection, scarring, pain, and nerve damage. An opportunity to ask questions prior to the procedure was permitted and all questions were answered. Patient was prepped and draped in usual sterile fashion: area cleansed with alcohol. Anesthesia: the lesion was anesthetized in a standard fashion Anesthetic: 1% lidocaine w/ epinephrine 1-100,000 buffered w/ 8.4% NaHCO3 Instrument used: DermaBlade Hemostasis achieved with: electrodesiccation Outcome: patient tolerated procedure well Outcome comment: The specimen was placed in a prelabeled formalin container to be sent for pathology Post-procedure details: sterile dressing applied and wound care instructions given Post-procedure details comment: Emphasized need to contact clinic for any signs of infection, uncontrollable bleeding, or complications. Dressing type: bandage Additional details: Photo taken Amount of lidocaine used: 1.0 cc Specimen A - Dermatopathology exam Differential Diagnosis: SCC Check Margins: No Size of lesion: 1.1 x 1.0 cm Next Visit: 3 months eczema follow up; 1 year skin check documented in this encounterPark[facility] [id number] NoteConsultation Note Patient is presenting with complaints of persistent cervical spondyloarthropathy as well as myofascial pain. We have been treating his lower cervical facets. On 02/24/2024 he underwent right cervicalmedial branch block targeting the C5/6 and C6/7 for the second time. This provided 80% relief for about 6 hours. Unfortunately his pain was returned to the exact same nature and character as before. His pain is localized to the right side of his neck worse with twisting turning bending he has associated stiffness in the morning. He rates his pain a 0/10 as best but 10/10 at its worst. He also hassome stiffness in his neck with spasticity in the musculature. TON Score: 22% PHQ-2: 0 Patient denies any symptoms of progressively worsening upper/lower extremity weakness, progressively worsening gait abnormality, new onset bowel/bladder incontinence/ urinary retention, or saddle anesthesia. No new or worsening symptoms of fever, chills, night sweats. 14 Point Review of systems negative unless otherwise noted. General: No acute distress. Patient appears well-nourished. HEENT: Head is normocephalic and external ears are normal in appearance. Cardiovascular: No signs of poor perfusion and no peripheral edema Pulmonary: Nonlabored breathing, symmetric chest movement. GI: Abdomen nondistended Integumentary: No lesions Neurologic: Alert, oriented x3. 5/5 strength grossly in the bilateral upper extremities. Sensation intact to light touch in the bilateral upper extremities. 5/5 strength grossly in the bilateral lower extremities. Sensation intact to light touch in the bilateral lower extremities. MSK/Special Testing: Negative Inderjit sign bilaterally, cervical facet loading did reproduce cervical spine pain bilaterally. Tenderness palpation hypertonicity in the cervical paraspinal musculature. History, physical examination, and personal review of pertinent imaging results indicate a diagnosis of: -Cervical spondyloarthropathy -Myofascial pain Plan: -Will schedule patient for right cervical medial branch radiofrequency ablation targeting the C5/6 and C6-7 facet joints under fluoroscopic guidance -Follow-up 1 month post RFA Patient was counseled on the above diagnosis and treatment, all questions were answered and patientagrees to adhere to the plan above. Risk and benefits of appropriate procedures and medications were reviewed as well with patient, who voiced understanding and agreeance. Patient was counseled on appropriate use of opioids if prescribed or renewed today and naloxone was offered to patient if opioids were prescribed or maintained at this visit. PHQ-2 scoring reviewed with patient and discussed seeking treatment for depression or mood disorder as appropriate. Patient was counseled on smoking cessation and/or continuing to abstain from nicotine/tobacco products as appropriate based on history; as smoking/nicotine can contribute to increased pain overall and decreased wound healing. Patient counseled on maintaining a healthy BMI as part of the total treatment of their pain and to reduce stress/strain on joints. Patient invited to return or call with any questions or concerns that arise.[facility] CenterComment on above:Result Comment: Electronically Signed By: Daniel Hair DO\.br\Date and Time Signed: 03/03/24 14:13 [id number] Evaluation + Plan noteExtracted from: Title:Chronic pain Author:Daniel Hair DO Date:03/03/24 Patient is presenting with c omplaints of persistent cervical spondyloarthropathy as well as myofascial pain. We have been treating his lower cervical facets. On 02/24/2024 he underwent right cervical medial branch block targeting the C5/6 and C6/7 for the second time. This provided 80% relief for about 6 hours. Unfortunately his pain was returned to the exact same nature and character as before. His pain is localized to the right side of his neck worse with twisting turning bending he has associated stiffness in the morning. He rates his pain a 0/10 as best but 10/10 at its worst. He also has some stiffness in his neck with spasticity in the musculature. TON Score: 22% PHQ-2: 0 Patient denies any symptoms of progressively worsening upper/lower extremity weakness, progressively worsening gait abnormality, new onset bowel/bladder incontinence/ urinary retention, or saddle anesthesia. No new or worsening symptoms of fever, chills, night sweats. 14 Point Review of systems negative unless otherwise noted. General: No acute distress. Patient appears well-nourished. HEENT: Head is normocephalic and external ears are normal in appearance. Cardiovascular: No signs of poor perfusion and no peripheral edema Pulmonary: Nonlabored breathing, symmetric chest movement. GI: Abdomen nondistended Integumentary: No lesions Neurologic: Alert, oriented x3. 5/5 strength grossly in the bilateral upper extremities. Sensation intact to light touch in the bilateral upper extremities. 5/5 strength grossly in the bilateral lower extremities. Sensation intact to light touch in the bilateral lower extremities. MSK/Special Testing: Negative Inderjit sign bilaterally, cervical facet loading did reproduce cervical spine pain bilaterally. Tenderness palpation hypertonicity in the cervical paraspinal musculature. History, physical examination, and personal review of pertinent imaging results indicate a diagnosis of: -Cervical spondyloarthropathy -Myofascial pain Plan: -Will schedule patient for right cervical medial branch radiofrequency ablation targeting the C5/6 and C6-7 facet joints under fluoroscopic guidance -Follow-up 1 month post RFA Patient was counseled on the above diagnosis and treatment, all questions were answered and patient agrees to adhere to the plan above. Risk and benefits of appropriate procedures and medications were reviewed as well with patient, who voiced understanding and agreeance. Patient was counseled on appropriate use of opioids if prescribed or renewed today and naloxone was offered to patient if opioids were prescribed or maintained at this visit. PHQ-2 scoring reviewed with patient and discussed seeking treatment for depression or mood disorder as appropriate. Patient was counseled on smoking cessation and/or continuing to abstain from nicotine/tobacco products as appropriate based on history; as smoking/nicotine can contribute to increased pain overall and decreased wound healing. Patient counseled on maintaining a healthy BMI as part of the total treatment of their pain and to reduce stress/strain on joints. Patient invited to return or call with any questions or concerns that arise. [facility] 12-02-2024 History of Present illness Narrative* Stevie Fentressnaheed AvilaKierra, [place] - 03/01/2024 12:40 PM EST 03/01/24 0935 Treatment Diagnosis Treatment Diagnosis 1 Angina Angina Date 01/23/24 Referral Date 01/26/24 Significant Cardiovascular History Chronic atrial fibrillation Individual Treatment Plan ITP Visit Type Re-assessment ITP Next Review Date 03/01/24 Visit #/Total Visits EF% 50 % Risk Stratification High Supplemental Oxygen Oxygen Use No Exercise Assessment Stages of Change Action Assisted Devices None Test Stress test Data Measured Before Test Heart Rate 73 Resting Blood Pressure 116/74 Data Measured During Test RPD 4 Data Measured at Peak Peak Heart Rate 102 Peak Blood Pressure 134/62 Peak RPE 13 Data Measured at 5 Minutes After Test Heart Rate 69 Blood Pressure 136/74 Comments PT DENIES PAIN OR OTHER DIFFICULTY POST-TEST Exercise Intervention/Prescription Mode Treadmill;Bike;Stepper;Ergometer;Rower;Resistance training Frequency per week 3 D/WK Duration Per Session 40-60 MIN Intensity METS 3-4 METS RPE 12-16 Progression >0.5-1.0 METS / MONTH Symptoms with Exercise Shortness of breath Target Heart Rate 84-96 Resistance Training Yes Exercise Activity at Home Type WALKING Frequency >/= 3 DAYS / WK Duration 30-60 MIN. Resistance Training Yes Exercise Education Education Self pulse;Exercise safety;Signs/symptoms to report;RPE scale;Equipment orientation;Warm up/cool down;Physically active Exercise Goals Patient Target Goals Individual exercise RX;Maintain exercise and activity at a moderate intensity;Aerobic activity 30 + minutes/day 5 days/week Patient Treatment Goal Pt will be able to increase aerobic functional capacity >0.5 mets with less shortness of breath in the next 30 days. Goal Status In progress Progress Towards Goal Avg mets increased from 2.8-3.5-4.0 mets Psychosocial Assessment Stages of Change Action (PHQ-6 SCORE 3 / PABLO-7 SCORE 0) Psychosocial Intervention Interventions No intervention indicated Stress Management Techniques Uses guided meditation;Practices deep breathing;Maintains physical exercise and healthy nutrition;Manages social media time;Connects with others Currently Taking Psychotropic Meds No Medication Changes No Psychosocial Education Education Benefits of CPR completion;Cardiac meds;Coping techniques;Environmental triggers;Impact self care behaviors on health;Relaxation techniques;Signs/symptoms of depression;Stress management cla ss Psychosocial Goals Patient Target Goals Assess presence or absence of depression using a valid screening tool (PHQ-9 INIITAL SCORE = 3) Patient Treatment Goal Pt will be able to learn diaphragmatic breathing & PMR and accurately demonstrate within the next 30 days Goal Status Initial Progress Towards Goal class not yet completed Other Core Component - Tobacco Cessation History of Tobacco Use No Nutrition Assessment Stages of Change Preparation;Action Nutrition Assessment Tool Other (comment) (REAPS NUTRITION SCORE=32 making many healthy choices ) Current Diet Pt report eating a healthy variety but could do better Barriers to Heart Healthy Diet NONE Alcohol No Height 1.88 m (6' 2 ) Weight 92.1 kg (203 lb) BMI 26.12 Waist Circumference (In) 43 IN Other Core Component - Weight Management BMI <18.5 or > 24.9, Managed as Core Component No Other Core Component - Diabetes Diabetes No Not Managed as a Core Component HgbA1c n/a Other Core Component - Lipid Management Lipids Managed as Core Component Yes Lipid Management Assessment Stages of Change Action Date Lipids Drawn 12/22/23 Total 155 HDL 50 LDL 92 Triglycerides 66 Lipid Management Interventions Lipid Med(s) N/A Lipid Med Change(s) No Demonstrates Medication Compliance Yes Medication Schedule Provided Yes Lipid Management Education Resource Information Provided Yes Staff/Patient Discussion Yes Lipid Management Goals Patient Target Goals LDL-C less than 70 and non-HDL-C <100 for those with ASCVD;Triglycerides <150 Patient Treatment Goal Pt will maintain a mostly healthy lipid profile, except improve lowering [id number] pts at the next lipid drawn TBD. Goal Status In progress Progress Towards Goal NO labs set to be drawn, pt exercising in rehab to help with lowering LDL Nutrition Intervention Dietitian Consult No Staff/Patient Discussion Yes Supplemental Nutrition N/A Diabetes Education Referral No Lipid Clinic Referral No Nutrition Education Resource Information Provided Yes Education Signs/symptoms/treatment of hypo/hyperglycemia;Low saturated fat diet;Low sodium diet;Limit added sugars;Overall healthy eating pattern that emphasizes vegetables, fruits, wholegrains, healthy proteins and non-tropical oils;Reduced calorie/portion controlled diet Nutrition Goals Patient Target Goals LDL-C less than 70 and non-HDL-C <100 for those with ASCVD;Waist less than 40 inches males, 35 for females;Weight loss of 5-10% Patient Treatment Goal Patient will learn and implement the Mediterranean nutrition plan in the next 30 days. Goal Status In progress Progress Towards Goal Pt participating in rehab to help lower measurements to achieve goals listed above Education Learning Barrier Ready to learn Education Schedule Given Yes (CARDIAC KNOWLEDGE TEST SC. = 90%) Other Core Component - Hypertension Hypertension No Is BP WDL Yes Hypertension Managed as Core Component No Hypertension Management Assessment Stages of Change Action Resting BP 116/74 Post BP 136/74 Is BP WDL Yes Symptoms NONE REP'D Hypertension Management Interventions BP Medications METOPROLOL ONLY Demonstrates Medication Compliance Yes Recent Medication Changes No Patient Monitoring BP at Home No Physician Notified No Hypertension Management Education Resource Information Provided Yes Staff/Patient Discussion Yes Hypertension Management Goals Patient Target Goals Resting BP within ACC/AHA BP guidelines;Verbalize factors that can elevate BP;Medication Compliance;Understands importance of self-monitoring Patient Treatment Goal Pt will begin home BP self-monitoring QD and tracking within the next 30 days Medications Resource Information Provided Yes Med(s) Change No BP Meds n/a DOUGLAS/ARB/ARNI Prescribed No BB Prescribed Yes BB Adherent Yes Antiplatelet/Anticoagulant Prescribed Yes Antiplatelet/Anticoagulant Adherent Yes Statins/Anti-hyperlipidemic Prescribed No Other Core Component - Medication Compliance Medication Compliance Managed as Core Component Yes Medication Compliance Assessment Stages of Change Action;Maintenance Barriers to Medication Compliance none Medication Compliance Interventions Staff/Patient Discussion Yes Medications Reviewed with Patient Yes Medication Compliance Education Resource Information Provided Yes Education Program book Medication Compliance Goals Patient Target Goals Demonstrates medication compliance;Verbalizes correct medication method;Verbalizes understanding of medication purposes Patient Treatment Goal Patient will maintain 100% continued medication compliance the next 30 days. Goal Status In progress Progress Towards Goal meeting per pt discussion [facility] NoteOperative Report Diagnosis: 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 Procedure: Right diagnostic cervical medial branch blocks under fluoroscopic guidance, targeting the C5/6 and C6/7 facet joints Anesthesia: Local Complications: none After informed consent was obtained, the patient was brought to the procedure room and placed in the prone position. The neck area is prepped and draped in usual sterile fashion. Using fluoroscopic guidance skin and subcutaneous tissue overlying needle trajectories to the target sites were anesthetized with 2% lidocaine. 22-gauge needles were advanced under fluoroscopic guidance to the appropriate anatomic landmarks. Needle tip position was confirmed on both sides. Injection of small amount of contrast each needle tip revealed appropriate spread without vascular take. Subsequently, 0.3 mL of 0.5% bupivacaine was injected at each needle tip. The needles were removed. The patient was then márquez sferred to the recovery room in stable condition. Follow-up: Should the patient have pain relief, the patient may be a candidate for radiofrequency lesioning. The patient agrees to continue currently prescribed/recommended therapies.[facility] CenterComment on above: Result Comment: Electronically Signed By: Daniel Hair DO\.br\Date and Time Signed: 02/24/24 13:31 [id number] History of Present illness Narrative* Benigno Wallace, GREGORIO - 02/02/2024 9:00 AM EST Cardiac Rehab Initial History and Assessment Bret Yap 1940 [id number] 02/02/2024 Pre-cert Verification: STD MCR W/ MED. MUTUAL 2ND / PT VERBALIZES UNDERSTANDING & ACCEPTANCE OFOWN FINANCIAL RESPONSIBILITY FOR OOP NOT COVERED Primary Diagnosis: STABLE ANGINA Onset: 01/23/24 Living Will: [x] Yes [] No On File: [] Yes [x] No [] N/A Durable Power of Cryptological Technician: [x] Yes [] No Medical History Past Medical History: Diagnosis Date Atrial fibrillation (HCC) CAD (coronary artery disease) Complicated varicose veins COPD (chronic obstructive pulmonary disease) (HCC) GERD (gastroesophageal reflux disease) Gout Past Surgical History: Procedure Laterality Date COLONOSCOPY COLONOSCOPY N/A 11/15/2022 COLORECTAL CANCER SCREENING, HIGH RISK-DIAGNOSTIC performed by Janey Rivera DO at [facility] OR LEG SURGERY ROTATOR CUFF REPAIR Bilateral TONSILLECTOMY UPPER GASTROINTESTINAL ENDOSCOPY Family History PT DENIES FAM. HX OF HEART DISEASE Symptoms: 1. Angina [] None [x] Loss of Energy / Fatigue [] Tightness [x] Shortness of Breath [] Pressure [] Nausea [] Sharp, Stabbing [] Pallor [] Indigestion, Heartburn [] Sweaty Where was discomfort located? PT DENIES Precipitating Factors? S/S W/ WALKING Relieved by? MED. MGT 2. Arrhythmia [] None [] Heart Racing [] Irregular Beats (skips) [] Pacer [x] Atrial Fibrillation / FLUTTER-CHRONIC SINCE 2020 [] AICD On any Antiarrhythmia Medications? METOPROLOL 12.5 MG, BID 3. Congestive Heart Failure [] None [] Distended Abdomen [x] Pedal Edema [] Unusual weight gain [] SOB with mild exertion [] Fatigue [] Extra Pillows (Number?): 4. Vascular [x] None [] Carotid Narrowing [] R [] L [] Peripheral claudication [] R [] L 5. Musculoskeletal [] None [x] Back Pain Where?Limitations: CHRONIC-INTERMITTENT SEVERE LBP ACHE WHEN WALKING CHRONIC-CONSTANT NECK SORE (PAIN MGT RFAs) [] Joint discomfort Where? [] Other Where? 6. Limitations to Home or Work Activities: [x] Yes [] No If yes, what?:Limitations: CHRONIC-INTERMITTENT SEVERE LBP ACHE WHEN WALKING CHRONIC-CONSTANT NECK SORE (PAIN MGT RFAs Current Exercise [x] Yes - type/frequency/intensity/duration: SOME WALKING [] No 6. Neurological [] None [x] Numbness / Tingling Where? 1ST THREE DIGITS OF LEFT HAND R/T REMOTE LACERATIONS [] Peripheral Neuropathy Where? [] Stroke / TIA Deficit / Where? Nutrition Assessment Diet / Special Diet: HEART-HEALTHY Appetite: [] Too Good [x] Good [] Fair [] Poor Eating Out or Takeout 1 times/wk [] Dietary Supplement: [] Yes [x] No If yes, what? Diet Medications (if applicable) Willing to complete a food diary?: [] Yes [] No [x] Maybe Weight Loss / Gain: [x] Maintain Current Weight [] Loss [] Gain REAPS NUTRITION SURVEY: 32 Alcohol Consumption: [] Yes [x] No Caffeine: [] Yes [x] No Water / Other Fluids: [] Cups [] Glasses [x] Bottles /day DRINK A LOT OF WATER Vitamins/Natural herbal products: [] Yes [] No If so, what? VIT D & MELATONIN DIABETES / PREDIABETES: [] Yes [x] No Fall Risk Assessment: History of falls with or without injury [] Yes [x] No Use of ambulatory aid [] Yes [x] No Difficulty walking/impaired gait [] Yes [x] No Numbness in feet [] Yes [x] No Vision changes [] Yes [x] No Dizziness [] Yes [x] No Shortness of breath [x] Yes [] No Medications [x] Anticoagulant [x] Betablocker /DOUGLAS/ARB [] Antidepressant [] Seizure medication [] NA Risk of fall [x] Low (0 - 3 of above + Consider Recent Fall Hx to Determine Higher Risk) [] Medium (4 above + Consider Recent Fall Hx to Determine Higher Risk) [] High (5 or more above) Medication Compliance (stated): [x] 100% [] 75% [] 50% [] 25% [] 0% Tobacco Use Social History Tobacco Use Smoking Status Never Smokeless Tobacco Never Psychological [] Depression [] Tearful [] Fearful [x] Cheerful [] Anxious [x] Motivated [] Overwhelmed Treatment: N/A Stress Source: PT DENIES Relaxation techniques: NONE / PT Hobbies: NONE / PT Depression Screening: PHQ-9 SCORE: 3 PABLO-7 ANXIETY SCORE 0 Socio-Economic Marital Status: Family Concerns: PT DENIES Level of Education [] 8th Grade [] Associates [] Masters [x] High School [] Bachelor [] Other: Cardiovascular Knowledge Assessment Score: 90% Education Needs: STD CR CURRICULUM Physical Findings Weight:203 LB Height: 74 IN (3.53 M2) BMI: 26.1 Waist Circumference: 43.0 IN. Cardiovascular- No edema, S1-S2 and apically regular to auscultation, strong bilateral upper and lower extremity pulses at +2, no carotid bruits. Monitor rhythm-AFIB RATE-CONTROLLED VR- 67 TX- INDET. QRS- 0.06 QT- 0.42 Ejection Fraction- 50% Pulmonary- Clear to auscultation bilaterally through out. Neurological- CHRONIC NUMBNESS TIPS OF FIRST 3 DIGITS R/T REMOTE LACERATIONS Psycho-social- No deficit noted or reported. Peripheral Vascular- No deficit noted or reported. Muscular Skeletal- Limitations: CHRONIC-INTERMITTENT SEVERE LBP ACHE WHEN WALKING CHRONIC-CONSTANT NECK SORE (PAIN MGT RFAs Pain Assessment- Pain Level Tolerable <4+/10 on 10 point Likert scale Location/ radiation/ Frequency/ Duration- NECK / NO RADIATION / CONSTANT / SORE Endocrine- No deficit noted or reported. Gastrointestinal- No deficit noted or reported. Genitourinary- No deficit noted or reported. Physical limitations- only as per above Goals: Overall Personal Program Goal: TO IMPROVE MY SHORTNESS OF BREATH [x] Initial Goal [] Progressing to Goal [] Not Meeting--Needs Reinforcement [] Goal Met [] Goal Not Met To increase stamina, strength, and flexibility by exercising 31-50 total minutes by engaging in aerobic, resistance, and flexibility workout modalities with the goal of progressively achieving at least 0.5 to 1.0 metabolic equivalant improvement in the next 30 days as evidenced by daily session reports / [x] Initial Goal [] Progressing to Goal [] Not Meeting--Needs Reinforcement [] Goal Met [] Goal Not Met To achieve and progress prescribed exercise frequency, intensity, time, and type in the next 30 days based upon initial evaluation and submaximal graded exercise results as evidenced by the attainingand maintaining the prescribed target heart rate range, a [place] rating of perceived exertion [id number] and 16, duration of >30 - 50 minutes using multiple exercise modes for at least 3 - 5 days per week to accumulate a minimum total of 2.5 hours per week of moderate aerobic intensity exercise, as tolerated, evidenced by daily session reports and home workout log / [x] Initial Goal [] Progressing to Goal [] Not Meeting--Needs Reinforcement [] Goal Met [] Goal Not Met To gradually and progressively lose 2 - 4 lb of body weight in the next 30 days through moderating nutrional intake and performing regular aerobic and strength training exercises as prescribed with improvement evidenced by daily session report comparison / [x] Initial Goal [] Progressing to Goal []Not Meeting--Needs Reinforcement [] Goal Met [] Goal Not Met To decrease waist circumference by 5% by program completion if waist measurement is > or = 40 inches (male) / > or = 35 inches (female) as evidence by the Accomplishment Worksheet / [x] InitialGoal [] Progressing to Goal [] Not Meeting--Needs Reinforcement [] Goal Met [] Goal Not Met To introduce and progress 8-10 different bilateral UE and LE progressive resistance exercises focused on major muscle groups using 1-3 sets each per lift, on 2-3 non-consecutive days implementing free and machine weights and < therabands, as appropriate, with a resistance of 40-60% 1-repetition maximum or 10 -15 repetitions to progressive overload and increasing resistance once repetitions have progressed to 15 reps and feel fairly light on 2 prior occasions in the next 30 days / [x] InitialGoal [] Progressing to Goal [] Not Meeting--Needs Reinforcement [] Goal Met [] Goal Not Met To achieve and maintain an optimal average resting blood pressure of <130 / 80 mmHg, or as indicated by this patient's referring provider, in the next 30 days / [x] Initial Goal [] Progressing to Goal [] Not Meeting--Needs Reinforcement [] Goal Met [] Goal Not Met To strive for blood lipid optimization with an LDL-C of <100 mg/dL or LDL 70 mg/dL, an HDL-C of > or = 40 mg/dL for men and > or = 50 mg/dL for women, and a triglyceride level of <150 mg/dL via lifestyle education, behavioral modification, and medication compliance / [x] Initial Goal []Progressing to Goal [] Not Meeting--Needs Reinforcement [] Goal Met [] Goal Not Met -To develop regular home aerobic exercise program for 20 - 60 minutes at least 2 non-rehab days perweek, excluding 5 - 10 minutes warm-up and cool-down periods, within the next 30 days, being tracked on home workout log / [x] Initial Goal [] Progressing to Goal [] Not Meeting--Needs Reinforcement [] Goal Met [] Goal Not Met To MAINTAIN REDUCED self-reported psycho-social feelings of stress in the next 30 days as evidencedby pre- and post- surveys and by routine rounding with patient to ascertain subjective improvements/ [x] Initial Goal [] Progressing to Goal [] Not Meeting--Needs Reinforcement [] Goal Met [] Goal Not Met In the next 30-days, to eat on average at least 2 servings of fruit per day and 4-5 servings of vegetables per day as evidenced by pre- and post-program nutriton survey and routine rounding with patient to ascertain progression toward goal per patient's self report, food diary, and Mllk-pitw-Aarps screening survey / [x] Initial Goal [] Progressing to Goal [] Not Meeting--Needs Reinforcement [] Goal Met [] Goal Not Met To strive to eat < or = 30% of daily caloric intake of total fat and <10% of daily caloric saturated fat tracked by patient's self-report, food diary, and [id number] screening survey / [x]Initial Goal [] Progressing to Goal [] Not Meeting--Needs Reinforcement [] Goal Met [] Goal Not Met To have patient demonstrate knowledge about risk factor reduction, lifestyle modification, and heart health strategies with > / = 80% accuracy via pre- and post-program Test your Heart Health Knowledge screening tool / [x] Initial Goal [] Progressing to Goal [] Not Meeting--Needs Reinforcement [] Goal Met [] Goal Not Met * Benigno Wallace RN - 02/02/2024 9:00 AM EST Cardiac Rehabilitation Physician Order Form Bret Yap 1940 [id number] 02/02/2024 [x] Phase 2 ECG Monitored Cardiac Rehabilitation [] MS [] Percutaneous Coronary Intervention [] Other: [] CABG [] Heart Valve Repair/Replaced [x] Stable Angina [] Heart Failure: Onset Date: 01/23/24 Cardiac Education Goals: (see individualized treatment plan for specific goals, progression & compliance) [x] Hypertension [x] Physical Inactivity [x] Cardiac A&P [] Heart Failure [x] Medications [] Coping w/ Anxiety / Depression [] Diabetes [x] Weight Management [x] Angina [x] Hyperlipidemia [x] Home Exercise [x] Stress Reduction and Relaxation [x] Medications [] Smoking Cessation Prescribed Exercise Plan: Target Hr: 84-96 Duration: 31 - 60 Minutes Frequency: 3 Days per week Initial Met Level: 3.--4.0 METS Limitations: CHRONIC-INTERMITTENT SEVERE LBP ACHE WHEN WALKING CHRONIC-CONSTANT NECK SORE (PAIN MGT RFAs Modalities: [x]Treadmill [x] UBE [x] Seated Stepper [x] Rowing Machine [x] Weights/therabands [] Total Body Ergometer Aerobic exercise to total 31-60 minutes. Progressing by 1-2 minutes per week and/or 1-2 levels per week per patient tolerance using various modalities; according to [place] Scale 12-16 and THR Introduce 8-12 bilateral UE and LE progressive resistance exercises at 1-3 sets per lift, on 2-3 non-consecutive days using weights/ GREEN therabands AND WTS TO 8-24 # for 8-15 reps to progressive overload by increasing resistance once reps progressed to at least 15 reps on at least 2 occasions Per patient symptoms use: Appropriate ACLS Algorhythm for Cardiac Events. Nitroglycerine 0.4mg SLq 5mins X 3 for angina pain. 12 lead EKG for c/o chest pain or change in rhythm. Nasal O2 for SaO2 <90% or symptoms warranted. Blood sugar monitoring for Hyper/Hypoglycemia symptoms. [facility] Rehab [facility] + Plan noteExtracted from: Title:chronic pain Author:Daniel Hair DO. Date:01/22/24 Patient is presenting as a f ollow-up visit for cervical spondyloarthropathy as well as myofascial pain. On 01/20/2024 he underwent right sided cervical medial branch blocks to target the C5/6 and C6/7 facet joints under fluoroscopic guidance. He admits 85% relief for several hours. Unfortunately his pain returned in the exact same nature and character as before rated as an 8/10 severity localized to the right side lower portion of his cervical spine that is nonradiating in nature and worse with twisting turning and bending as well as knotting motions. He describes a dull ache that can be sharp/stabbing in nature when acutely exacerbated. He also has some muscle hypertonicity in this region we had prescribed him Flexeril at his last visit. Unfortunately Flexeril is provided minimal relief for his myofascial pain we discussed switching his muscle relaxant for this. He would like to proceed with the second cervical medial branch blocks on the right as he felt that the first 1 was very beneficial. TON Score: 9% PHQ-2: 0 Patient denies any symptoms of progressively worsening upper/lower extremity weakness, progressively worsening gait abnormality, new onset bowel/bladder incontinence/ urinary retention, or saddle anesthesia. No new or worsening symptoms of fever, chills, night sweats. 14 Point Review of systems negative unless otherwise noted. General: No acute distress. Patient appears well-nourished. HEENT: Head is normocephalic and external ears are normal in appearance. Cardiovascular: No signs of poor perfusion and no peripheral edema Pulmonary: Nonlabored breathing, symmetric chest movement. GI: Abdomen nondistended Integumentary: No lesions Neurologic: Alert, oriented x3. 5/5 strength grossly in the bilateral upper extremities. Sensation intact to light touch in the bilateral upper extremities. 5/5 strength grossly in the bilateral lower extremities. Sensation intact to light touch in the bilateral lower extremities. MSK/Special Testing: Tenderness palpation and hypertonicity in the cervical paraspinal muscular with cervical facet loading reproducing right-sided cervical pain only. Negative Inderjit sign bilaterally. History, physical examination, and personal review of pertinent imaging results indicate a diagnosis of: -Cervical spondyloarthropathy -Myofascial pain Plan: -Will schedule him for the second cervical medial branch block to target the right-sided C5/6 and C6/7 facet joints under fluoroscopic guidance in anticipation of radiofrequency ablation if effective -For his myofascial pain we will discontinue Flexeril and start baclofen 5 mg 3 times daily to be taken as needed, we instructed him to take the first dose at night to assess with his response and monitor her for side effects of this medication when taking -Follow-up as soon as able postinjection or sooner if any issues arise Patient was counseled on the above diagnosis and treatment, all questions were answered and patient agrees to adhere to the plan above. Risk and benefits of appropriate procedures and medications were reviewed as well with patient, who voiced understanding and agreeance. Patient was counseled on appropriate use of opioids if prescribed or renewed today and naloxone was offered to patient if opioids were prescribed or maintained at this visit. PHQ-2 scoring reviewed with patient and discussed seeking treatment for depression or mood disorder as appropriate. Patient was counseled on smoking cessation and/or continuing to abstain from nicotine/tobacco products as appropriate based on history; as smoking/nicotine can contribute to increased pain overall and decreased wound healing. Patient counseled on maintaining a healthy BMI as part of the total treatment of their pain and to reduce stress/strain on joints. Patient invited to return or call with any questions or concerns that arise. [facility] 10-24-2024 NoteConsultation Note Patient is presenting as a follow-up visit for cervical spondyloarthropathy as well as myofascial pain. On 01/20/2024 he underwent right sided cervical medial branch blocks to target the C5/6 and C6/7 facet joints under fluoroscopic guidance. He admits 85% relief for several hours. Unfortunately his pain returned in the exact same nature and character as before rated as an 8/10 severity localizedto the right side lower portion of his cervical spine that is nonradiating in nature and worse withtwisting turning and bending as well as knotting motions. He describes a dull ache that can be sharp/stabbing in nature when acutely exacerbated. He also has some muscle hypertonicity in this region w e had prescribed him Flexeril at his last visit. Unfortunately Flexeril is provided minimal relief for his myofascial pain we discussed switching his muscle relaxant for this. He would like to proceed with the second cervical medial branch blocks on the right as he felt that the first 1 was very cynthia eficial. TON Score: 9% PHQ-2: 0 Patient denies any symptoms of progressively worsening upper/lower extremity weakness, progressively worsening gait abnormality, new onset bowel/bladder incontinence/ urinary retention, or saddle anesthesia. No new or worsening symptoms of fever, chills, night sweats. 14 Point Review of systems negative unless otherwise noted. General: No acute distress. Patient appears well-nourished. HEENT: Head is normocephalic and external ears are normal in appearance. Cardiovascular: No signs of poor perfusion and no peripheral edema Pulmonary: Nonlabored breathing, symmetric chest movement. GI: Abdomen nondistended Integumentary: No lesions Neurologic: Alert, oriented x3. 5/5 strength grossly in the bilateral upper extremities. Sensation intact to light touch in the bilateral upper extremities. 5/5 strength grossly in the bilateral lower extremities. Sensation intact to light touch in the bilateral lower extremities. MSK/Special Testing: Tenderness palpation and hypertonicity in the cervical paraspinal muscular with cervical facet loading reproducing right-sided cervical pain only. Negative Inderjit sign bilaterally. History, physical examination, and personal review of pertinent imaging results indicate a diagnosis of: -Cervical spondyloarthropathy -Myofascial pain Plan: -Will schedule him for the second cervical medial branch block to target the right-sided C5/6 and C6/7 facet joints under fluoroscopic guidance in anticipation of radiofrequency ablation if effective -For his myofascial pain we will discontinue Flexeril and start baclofen 5 mg 3 times daily to be taken as needed, we instructed him to take the first dose at night to assess with his response and monitor her for side effects of this medication when taking -Follow-up as soon as able postinjection or sooner if any issues arise Patient was counseled on the above diagnosis and treatment, all questions were answered and patientagrees to adhere to the plan above. Risk and benefits of appropriate procedures and medications were reviewed as well with patient, who voiced understanding and agreeance. Patient was counseled on appropriate use of opioids if prescribed or renewed today and naloxone was offered to patient if opioids were prescribed or maintained at this visit. PHQ-2 scoring reviewed with patient and discussed seeking treatment for depression or mood disorder as appropriate. Patient was counseled on smoking cessation and/or continuing to abstain from nicotine/tobacco products as appropriate based on history; as smoking/nicotine can contribute to increased pain overall and decreased wound healing. Patient counseled on maintaining a healthy BMI as part of the total treatment of their pain and to reduce stress/strain on joints. Patient invited to return or call with any questions or concerns that arise.[facility] CenterComment [facility]:Result Comment: Electronically Signed By: Daniel Hair DO.sam\Date and Time Signed: 01/22/24 11:16 [id number] NoteOperative Report Diagnosis: 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 Procedure: Right diagnostic cervical medial branch blocks under fluoroscopic guidance, targeting the C5/6 and C6/7 facet joints Anesthesia: Local Complications: none After informed consent was obtained, the patient was brought to the procedure room and placed in the prone position. The neck area is prepped and draped in usual sterile fashion. Using fluoroscopic guidance skin and subcutaneous tissue overlying needle trajectories to the target sites were anesthetized with 2% lidocaine. 22-gauge needles were advanced under fluoroscopic guidance to the appropriate anatomic landmarks. Needle tip position was confirmed on both sides. Injection of small amount of contrast each needle tip revealed appropriate spread without vascular take. Subsequently, 0.3 mL of 0.5% bupivacaine was injected at each needle tip. The needles were removed. The patient was then márquez sferred to the recovery room in stable condition. Follow-up: Should the patient have pain relief, the patient may be a candidate for radiofrequency lesioning. The patient agrees to continue currently prescribed/recommended therapies.[facility] CenterComment on above: Result Comment: Electronically Signed By: Daniel Hair DO\.br\Date and Time Signed: 01/20/24 10:19 [id number] Evaluation + Plan noteExtracted from: Title:chronic pain Author:Daniel Hair DO Date:12/17/23 Patient is presenting with h istory of cervical spine stenosis, myofascial pain, lumbar postlaminectomy pain syndrome and cervical spondyloarthropathy. He underwent left then right cervical radiofrequency ablations to target the C3/4 and C4/5 facet joints he admits 50% relief to present and states that the pain in his upper neck is feeling better. Unfortunately he has right-sided pain and when he points to the region this appears to be slightly lower than the facets that were treated and this is an lower cervical facet region on the right. This is still worse with twisting turning and bending. He has 0 pain on his left side and he has this right sided pain that is 5/10 presently but an 8/10 with activity nonradiating in nature worse with twisting turning and bending. He also has associated muscle hypertonicity on the right side of his cervical paraspinals. We discussed that this is most likely coming from his lower cervical sets as it does have a referral pattern to the top of her shoulder that is similar nature and character but a slightly lower location to his previously treated facet mediated pain. TON Score: 22% PHQ-2: 0 Patient denies any symptoms of progressively worsening upper/lower extremity weakness, progressively worsening gait abnormality, new onset bowel/bladder incontinence/ urinary retention, or saddle anesthesia. No new or worsening symptoms of fever, chills, night sweats. 14 Point Review of systems negative unless otherwise noted. General: No acute distress. Patient appears well-nourished. HEENT: Head is normocephalic and external ears are normal in appearance. Cardiovascular: No signs of poor perfusion and no peripheral edema Pulmonary: Nonlabored breathing, symmetric chest movement. GI: Abdomen nondistended Integumentary: No lesions Neurologic: Alert, oriented x3. 5/5 strength grossly in the bilateral upper extremities. Sensation intact to light touch in the bilateral upper extremities. 5/5 strength grossly in the bilateral lower extremities. Sensation intact to light touch in the bilateral lower extremities. MSK/Special Testing: Negative Inderjit sign bilaterally, seated straight leg raise test not reproduce radicular symptoms bilaterally. Cervical facet loading did reproduce axial pain on the right only in the lower cervical facet region. History, physical examination, and personal review of pertinent imaging results indicate a diagnosis of: -Cervical spondyloarthropathy -Cervical spine stenosis, myofascial pain syndrome -Lumbar postlaminectomy pain syndrome Plan: -Will schedule the patient for right-sided cervical medial branch blocks to target the C5/6 and C6/7 facet joints under fluoroscopic guidance in anticipation of radiofrequency ablation if effective, we discussed that the lower facet joints appear to be symptomatic for him and the upper joints seem to be doing better after the ablation. -For the myofascial component of his pain we will prescribe him Flexeril 5 mg to 3 times daily to be taken as needed, we also encouraged him to evaluate whether a home traction device for his cervical pathology will be helpful -Will follow-up with him soon as able postinjection or sooner if any issues arise Patient was counseled on the above diagnosis and treatment, all questions were answered and patient agrees to adhere to the plan above. Risk and benefits of appropriate procedures and medications were reviewed as well with patient, who voiced understanding and agreeance. Patient was counseled on appropriate use of opioids if prescribed or renewed today and naloxone was offered to patient if opioids were prescribed or maintained at this visit. PHQ-2 scoring reviewed with patient and discussed seeking treatment for depression or mood disorder as appropriate. Patient was counseled on smoking cessation and/or continuing to abstain from nicotine/tobacco products as appropriate based on history; as smoking/nicotine can contribute to increased pain overall and decreased wound healing. Patient counseled on maintaining a healthy BMI as part of the total treatment of their pain and to reduce stress/strain on joints. Patient invited to return or call with any questions or concerns that arise. [facility] 09-18-2024 NoteConsultation Note Patient is presenting with history of cervical spine stenosis, myofascial pain, lumbar postlaminectomy pain syndrome and cervical spondyloarthropathy. He underwent left then right cervical radiofrequency ablations to target the C3/4 and C4/5 facet joints he admits 50% relief to present and states that the pain in his upper neck is feeling better. Unfortunately he has right-sided pain and when he points to the region this appears to be slightly lower than the facets that were treated and this isan lower cervical facet region on the right. This is still worse with twisting turning and bending.He has 0 pain on his left side and he has this right sided pain that is 5/10 presently but an 8/10 with activity nonradiating in nature worse with twisting turning and bending. He also has associatedmuscle hypertonicity on the right side of his cervical paraspinals. We discussed that this is most likely coming from his lower cervical sets as it does have a referral pattern to the top of her shoulder that is similar nature and character but a slightly lower location to his previously treated facet mediated pain. TON Score: 22% PHQ-2: 0 Patient denies any symptoms of progressively worsening upper/lower extremity weakness, progressively worsening gait abnormality, new onset bowel/bladder incontinence/ urinary retention, or saddle anesthesia. No new or worsening symptoms of fever, chills, night sweats. 14 Point Review of systems negative unless otherwise noted. General: No acute distress. Patient appears well-nourished. HEENT: Head is normocephalic and external ears are normal in appearance. Cardiovascular: No signs of poor perfusion and no peripheral edema Pulmonary: Nonlabored breathing, symmetric chest movement. GI: Abdomen nondistended Integumentary: No lesions Neurologic: Alert, oriented x3. 5/5 strength grossly in the bilateral upper extremities. Sensation intact to light touch in the bilateral upper extremities. 5/5 strength grossly in the bilateral lower extremities. Sensation intact to light touch in the bilateral lower extremities. MSK/Special Testing: Negative Inderjit sign bilaterally, seated straight leg raise test not reproduce radicular symptoms bilaterally. Cervical facet loading did reproduce axial pain on the right onlyin the lower cervical facet region. History, physical examination, and personal review of pertinent imaging results indicate a diagnosis of: -Cervical spondyloarthropathy -Cervical spine stenosis, myofascial pain syndrome -Lumbar postlaminectomy pain syndrome Plan: -Will schedule the patient for right-sided cervical medial branch blocks to target the C5/6 and C6/7 facet joints under fluoroscopic guidance in anticipation of radiofrequency ablation if effective, we discussed that the lower facet joints appear to be symptomatic for him and the upper joints seem to be doing better after the ablation. -For the myofascial component of his pain we will prescribe him Flexeril 5 mg to 3 times daily to be taken as needed, we also encouraged him to evaluate whether a home traction device for his cervical pathology will be helpful -Will follow-up with him soon as able postinjection or sooner if any issues arise Patient was counseled on the above diagnosis and treatment, all questions were answered and patientagrees to adhere to the plan above. Risk and benefits of appropriate procedures and medications were reviewed as well with patient, who voiced understanding and agreeance. Patient was counseled on appropriate use of opioids if prescribed or renewed today and naloxone was offered to patient if opioids were prescribed or maintained at this visit. PHQ-2 scoring reviewed with patient and discussed seeking treatment for depression or mood disorder as appropriate. Patient was counseled on smoking cessation and/or continuing to abstain from nicotine/tobacco products as appropriate based on history; as smoking/nicotine can contribute to increased pain overall and decreased wound healing. Patient counseled on maintaining a healthy BMI as part of the total treatment of their pain and to reduce stress/strain on joints. Patient invited to return or call with any questions or concerns that arise.[facility] CenterComment on above:Result Comment: Electronically Signed By: Daniel Hair DO.br\Date and Time Signed: 12/17/23 10:52 [id number] History of Present illness Narrative* Carol Gusman DPM - 12/02/2023 10:15 AM EDT Subjective Patient ID: Bret Yap is a 83 y.o. male who presents for Follow-up ([facility]). Last seen date: 11-19-23 Last seen diagnosing provider: Faizan Bragg [facility] Location nails on bilateral feet Severity of symptoms mild Onset gradual Status no change Context hard to trim, hard to reach Nails thickened, discolored, pain Relieved by debridement, filing down nails, clipping nails History of ulcers/wounds no Aggravated by shoe gear, pressure Callus left sub1 minimal ROS General: Chillsdenies. Feverdenies. Musculoskeletal: muscle weaknessdenies. Bone/joint symptomsdenies. Peripheral Vascular: Edemadenies. Hx of blood clots in legsdenies. Raynaud'sdenies. Rest pain denies. Ulceration of feetdenies. Varicose veinsdenies. Skin: Hyperpigmentationdenies. Nail changesdenies. Rashdenies. Skin lesion(s)denies. Neurologic: Gait abnormalitydenies. Tingling/Numbnessdenies. Current Medications Current Outpatient Medications: allopurinol (Zyloprim) 300 MG tablet, 1 (one) time each day at the same time., Disp: , Rfl: eplerenone (Inspra) 25 MG tablet, Take 25 mg by mouth in the morning., Disp: , Rfl: esomeprazole (NexIUM) [address] capsule, 1 capsule 1 (one) time each day at the same time., Disp: , Rfl: furosemide (Lasix) 20 MG tablet, 1 (one) time each day at the same time., Disp: , Rfl: latanoprost (Xalatan) 0.005 % ophthalmic solution, instill 1 (ONE) drop IN BOTH EYES once daily in the evening, Disp: , Rfl: rivaroxaban (Xarelto) 2.5 MG tablet, 1 tablet with food orally, Disp: , Rfl: Allergies Indomethacin and Sulfa antibiotics Medical Histories Past Medical History: Diagnosis Date A-fib ([facility]) GERD (gastroesophageal reflux disease) Gout HTN (hypertension) ([facility]) Surgical Histories Past Surgical History: Procedure Laterality Date ARTHROSCOPY SHOULDER / OPEN SHOULDER Bilateral [address] Michelle LEG SURGERY Right vascular ORIF TIBIA & FIBULA FRACTURES Right TONSILLECTOMY Hospitalizations Family History Family History Problem Relation Name Age of Onset Cancer Father Cancer Father's Sister Cancer Father's Brother Melanoma Neg Hx Objective Foot Exam General Examination: alert, well hydrated, in no distress , awake, aware of surroundings. Dermatologic: NAIL PATHOLOGY:digits 1-5 bilateral are intact. atrophic skin with neg digital hair and hyperpigmentation-. HYPERKERATOSIS-left 2 DIPJ minimal. Left med 1st MPJ minimal Nail Pathology: Left Foot: 1 (great toe)Long, Thick, Crumbly, Deformed, Discolored, Brittle, Dystrophic 5 mm. 2Long, Thick, Crumbly, Deformed, Discolored, Brittle, Dystrophic 6mm. 3Long, Thick, Crumbly, Deformed, Discolored, Brittle, Dystrophic 5 mm. 4Long, Thick, Crumbly, Deformed, Discolored, Brittle, Dystrophic, 4mm. 5Long, Thick, Crumbly, Deformed, Discolored, Brittle, [id number]. Nail Pathology: Right Foot: 1 (great toe)Long, Thick, Crumbly, Deformed, Discolored, Brittle, Dystrophic 5 mm. 2Long, Thick, Crumbly, Deformed, Discolored, Brittle, Dystrophic 5mm. 3Long, Thick, Crumbly, Deformed, Discolored, Brittle, Dystrophic, 4mm. 4Long, Thick, Crumbly, Deformed, Discolored, Brittle, Dystrophic,3mm. 5Long, Thick, Crumbly, Deformed, Discolored, Brittle, [id number]. Modifier: -Q9, Parastesias. Vascular: palp pulses bilat and good color and refill digits. minimal edema. Neurologic: Vibratory sensation, shapr/dull and light touch are decreased to the plantar foot bilateral, all toes involved. Ankle / Foot: Good strength and ROM bilat, no kari or legs tenderness. neg homans sign. 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 Date:11/24/23 Diagnosis: 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 Procedure: Left cervical medial branch radiofrequency ablation under fluoroscopic guidance, targeting the cervical medial branches that innervate the C3/4 and C4/5 facet joints Anesthesia: Local Complications: none After informed consent was obtained, the patient was brought to the procedure room and placed in the prone position. The neck area is prepped and draped in usual sterile fashion. Using fluoroscopic guidance skin and subcutaneous tissue overlying needle trajectories to the target sites were anesthetized with 2% lidocaine. 20- gauge radiofrequency needles were advanced under fluoroscopic guidance to the appropriate anatomic landmarks. Needle tip position was confirmed on fluoroscopy and AP and lateral views. Next, stimulation was carried out at 2.0 V with muscular contraction only felt and visualized in the cervical paraspinal musculature and no contraction in the upper extremity noted. Patient also confirmed feeling of sensation only in the cervical paraspinal musculature and nothing into the upper extremity shoulder or scapular region. Next, 0.5 mL of 2% lidocaine was injected through each needle tip and appropriate time for the anesthetic to set up was taken. Then, radiofrequency lesioning was carried out for 80 seconds at 80 degrees x 2 with rotation of the needle tips 90 degrees and confirmatory x-rays taken in between repositioning. The needles were removed. The patient was then transferred to the recovery room in stable condition. Postprocedural evaluation revealed 5/5 bilateral upper extremity strength. Follow-up: The patient agrees to continue currently prescribed/recommended therapies. Additionally, the patient has new onset right-sided pain that is the same character as previous to his right sided radiofrequency ablation. However, he states that this pain is lower and refers to the top of his shoulder and upper shoulder blade in this area. We discussed his imaging inclusive of his MRI report from his cervical spine and this does appear to be secondary to cervical spondyloarthropathy M47.812. We discussed that this is most likely coming from the lumbar facet joints of C5-7. If this pain persists at the office visit we can consider addressing this with medial branch blocks to target the specific region. Future Appointments Appointment Date:12/17/2023 09:45:00 AM Scheduled Provider:Daniel Hair DO Location:.[facility] Appointment Type:Pain Management - Follow Up (FT) [facility] 06-19-2024 Evaluation + Plan noteExtracted from: Title:Pain Managment Follow up Author:Heavenly Jimenez Date:09/17/23 Impression and Plan Patient is an 83-year-old male with a past medical history significant for significant for cervical spondylosis, neck pain and cervical stenosis. He presents today for follow-up after undergoing his second bilateral medial branch block. This is covering the C3-4 and C4-5 facet joints. It was done on 09/08/2023 and gave him 80% relief for at least 4 hours. He has overall been very pleased with how much relief the medial branch blocks have given him. At this time, based on his imaging findings, his pain pattern and the significant amount to get from the previous injections I recommended pursuing right-sided medial branch RFA covering the C3-5 facet joints followed by the left side being done 2 weeks after. Procedure was discussed previous and benefits were discussed. Patient will follow-up 3 weeks after both sides are done. He is requesting Valium for the procedure due to the uncomfortable nature. We will accommodate this. TON score: 31%. [facility]06-07-2024 Evaluation + Plan noteExtracted from: Title:Right cervical medial branch block to target the C5/6 and C6/7 facets #2 Author:Daniel Hair DO Date:02/24/24 Diagnosis: 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 Procedure: Right diagnostic cervical medial branch blocks under fluoroscopic guidance, targeting the C5/6 and C6/7 facet joints Anesthesia: Local Complications: none After informed consent was obtained, the patient was brought to the procedure room and placed in the prone position. The neck area is prepped and draped in usual sterile fashion. Using fluoroscopic guidance skin and subcutaneous tissue overlying needle trajectories to the target sites were anesthetized with 2% lidocaine. 22- gauge needles were advanced under fluoroscopic guidance to the appropriate anatomic landmarks. Needle tip position was confirmed on both sides. Injection of small amount of contrast each needle tip revealed appropriate spread without vascular take. Subsequently, 0.3 mL of 0.5% bupivacaine was injected at each needle tip. The needles were removed. The patient was then transferred to the recovery room in stable condition. Follow-up: Should the patient have pain relief, the patient may be a candidate for radiofrequency lesioning. The patient agrees to continue currently prescribed/recommended therapies. Future Appointments Appointment Date:03/03/2024 01:30:00 PM Scheduled Provider:Daniel Hair DO Location:.[facility] Appointment Type:Pain Management - Follow Up (FT) [facility] [id number] Evaluation + Plan noteExtracted from: Title:Pain Managment Follow up Author:Heavenly Jimenez Date:08/11/23 Impression and Plan Patient is an 83-year-old male with a past medical history significant for cervical spondylosis, neck pain and cervical stenosis. He underwent recent bilateral C3-4 and C4-5 medial branch block with significant relief. Since he did well with the medial branch block we discussed once again pursuing bilateral C3-4 and C4-5 medial branch block targeting the C3-4 and C4-5 facet joints once again for diagnostic purposes. This be done under fluoroscopy. If patient once again get significant short-term relief he may be future candidate for RFA. Procedure was discussed. Risk and benefits were discussed. Patient will follow-up within a week of the injection for reevaluation. Call clinic sooner if necessary. In the meantime, he never picked up the prescription last time for amitriptyline. I will send this to his pharmacy. He will take 12.5 to 25 mg nightly to see if we can also give him some relief as he does a lot of difficulty sleeping. Patient will follow-up as above-mentioned. OARRS reviewed TON score: 42& [facility]05-06-2024 Evaluation + Plan noteExtracted from: Title:Bilateral C3-5 medial branch block #1 Auth or:Daniel Hair DO Date:08/04/23 Diagnosis: 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 Procedure: Bilateral diagnostic cervical medial branch blocks under fluoroscopic guidance, targeting the C3, C4, and C5 medial branches that innervate the C3/4 and C4/5 facet joints Anesthesia: Local Complications: none After informed consent was obtained, the patient was brought to the procedure room and placed in the prone position. The neck area is prepped and draped in usual sterile fashion. Using fluoroscopic guidance skin and subcutaneous tissue overlying needle trajectories to the target sites were anesthetized with 2% lidocaine. 22- gauge needles were advanced under fluoroscopic guidance to the appropriate anatomic landmarks. Needle tip position was confirmed on both sides. Injection of small amount of Omnipaque contrast each needle tip revealed appropriate spread without vascular take. Subsequently, 0.2 mL of 0.5% bupivacaine was injected at each needle tip. The needles were removed. The patient was then transferred to the recovery room in stable condition. Follow-up: Should the patient have pain relief, the patient may be a candidate for radiofrequency lesioning. The patient agrees to continue currently prescribed/recommended therapies. Future Appointments Appointment Date:08/11/2023 08:00:00 AM Scheduled Provider:Heavenly Mahoney PA-C Location:FT.Pain [facility] Appointment Type:Pain Management - Follow Up (FT) [facility]05-06-2024 Evaluation + Plan noteExtracted from: Title:Right cervical medial branch to target the C5/6 and C6/7 facets #1 Author:Daniel Hair DO Date:01/20/24 Diagnosis: 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 Procedure: Right diagnostic cervical medial branch blocks under fluoroscopic guidance, targeting the C5/6 and C6/7 facet joints Anesthesia: Local Complications: none After informed consent was obtained, the patient was brought to the procedure room and placed in the prone position. The neck area is prepped and draped in usual sterile fashion. Using fluoroscopic guidance skin and subcutaneous tissue overlying needle trajectories to the target sites were anesthetized with 2% lidocaine. 22- gauge needles were advanced under fluoroscopic guidance to the appropriate anatomic landmarks. Needle tip position was confirmed on both sides. Injection of small amount of contrast each needle tip revealed appropriate spread without vascular take. Subsequently, 0.3 mL of 0.5% bupivacaine was injected at each needle tip. The needles were removed. The patient was then transferred to the recovery room in stable condition. Follow-up: Should the patient have pain relief, the patient may be a candidate for radiofrequency lesioning. The patient agrees to continue currently prescribed/recommended therapies. Future Appointments Appointment Date:01/22/2024 10:15:00 AM Scheduled Provider:Daniel Hair DO Location:FT.Pain [facility] Appointment Type:Pain Management - Follow Up (FT) [facility] 04-04-2024 Evaluation + Plan noteExtracted from: Title:chronic pain Author:Daniel Hair DO Date:07/03/23 Patient is presenting with c omplaints of axial neck pain worse on the right than left. This pain is a 1/10 at baseline described as a dull ache but can be a 10/10 particularly looking up and turning his head. He has not been radiating symptoms and he does not have any weakness or changes in strength in his bilateral upper extremities. We did review his cervical spine MRI and discussed that he has mild central canal stenosis at several levels as well as foraminal stenosis however he has a significant amount of degenerative changes as well. We did note that he has C6-7 retrolisthesis and we could further evaluate this with x-rays. Based on his symptoms it does appear that his pain is secondary to spondylarthritis in nature. He has had minimal relief from a full course of physical therapy with 30 visits or more he has not had any significant relief from acetaminophen, NSAIDs he is unable to take due to history of Xarelto. He is also seen a chiropractor in the past that did not provide significant lasting relief and they were hesitant to provide any further care due to the retrolisthesis at C6-7. This pain has been going on for months to years without any lasting relief from the above therapies. He would like to know what else we can do at this time. TON Score: 31% PHQ-2: 0 Patient denies any symptoms of progressively worsening upper/lower extremity weakness, progressively worsening gait abnormality, new onset bowel/bladder incontinence/ urinary retention, or saddle anesthesia. No new or worsening symptoms of fever, chills, night sweats. 14 Point Review of systems negative unless otherwise noted. General: No acute distress. Patient appears well-nourished. HEENT: Head is normocephalic and external ears are normal in appearance. Cardiovascular: No signs of poor perfusion and no peripheral edema Pulmonary: Nonlabored breathing, symmetric chest movement. GI: Abdomen nondistended Integumentary: No lesions Musculoskeletal: Tender to palpation cervical paraspinal musculature. Neurologic: Alert, oriented x3. 5/5 strength grossly in the bilateral upper extremities. Sensation intact to light touch in the bilateral upper extremities. 5/5 strength grossly in the bilateral lower extremities. Sensation intact to light touch in the bilateral lower extremities. Special Testing: Negative Inderjit sign bilaterally, Spurling's did not reproduce radicular symptoms bilaterally, cervical facet loading did reproduce axial pain only. 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 However he does not have any symptoms of radiculopathy or central canal stenosis this is purely spondyloarthrosis in nature -We will schedule him for bilateral C3-5 medial branch blocks to target the C3/4 and C4/5 facet joints under fluoroscopic guidance -Will start him on amitriptyline 12.5 to 25 mg at bedtime -Will order a cervical spine x-ray with flexion-extension views to further evaluate the retrolisthesis at C6-7 and ensure that this is not a unstable region -Will follow-up 1 to 2 weeks post medial branches or sooner if needed Patient was counseled on the above diagnosis and treatment, all questions were answered and patient agrees to adhere to the plan above. Risk and benefits of appropriate procedures and medications were reviewed as well with patient, who voiced understanding and agreeance. Patient was counseled on appropriate use of opioids if prescribed or renewed today and naloxone was offered to patient if opioids were prescribed or maintained at this visit. PHQ-2 scoring reviewed with patient and discussed seeking treatment for depression or mood disorder as appropriate. Patient was counseled on smoking cessation and/or continuing to abstain from nicotine/tobacco products as appropriate based on history; as smoking/nicotine can contribute to increased pain overall and decreased wound healing. Patient counseled on maintaining a healthy BMI as part of the total treatment of their pain and to reduce stress/strain on joints. Patient invited to return or call with any questions or concerns that arise. [facility]03-04-2024 Evaluation + Plan noteExtracted from: Title:Bilateral cervical med ial branch block for C3/4 and C4/5 facets #2 Author:Daniel Hair DO. Date:09/08/23 Diagnosis: 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 Procedure: Bilateral diagnostic cervical medial branch blocks under fluoroscopic guidance, targeting the C3, C4, and C5 medial branches that innervate the C3/4 and C4/5 facet joints Anesthesia: Local Complications: none After informed consent was obtained, the patient was brought to the procedure room and placed in the prone position. The neck area is prepped and draped in usual sterile fashion. Using fluoroscopic guidance skin and subcutaneous tissue overlying needle trajectories to the target sites were anesthetized with 2% lidocaine. 22- gauge needles were advanced under fluoroscopic guidance to the appropriate anatomic landmarks. Needle tip position was confirmed on both sides. Injection of small amount of Omnipaque contrast each needle tip revealed appropriate spread without vascular take. Subsequently, 0.2 mL of 0.5% bupivacaine was injected at each needle tip. The needles were removed. The patient was then transferred to the recovery room in stable condition. Follow-up: Should the patient have pain relief, the patient may be a candidate for radiofrequency lesioning. The patient agrees to continue currently prescribed/recommended therapies. Future Appointments Appointment Date:09/17/2023 11:00:00 AM Scheduled Provider:Heavenly Mahoney PA-C Location:.[facility] [place] Appointment Type:Pain Management - Follow Up (FT) [facility]03-04-2024 Evaluation + Plan noteExtracted from: Title:Right lumbar medial br anch RFA to target the C3/4 and C4/5 facets Author:Daniel Hair DO Date:10/28/23 Diagnosis: M47.812, cervical spondyloarthropathy, predominantly right-sided Procedure: Right cervical medial branch radiofrequency ablation to target the innervation of C3/4 and C4/5 facet joints Anesthesia: Local Complications: None After informed consent was obtained, the patient was brought to the procedure room and placed in the prone position. The back area is prepped and draped in usual sterile fashion. The patient was placed on monitors via the anesthesia team. Using fluoroscopic guidance skin and subcutaneous tissue overlying needle trajectories to the target sites were anesthetized with 2% lidocaine. 20-gauge radiofrequency needles were advanced under fluoroscopic guidance to the appropriate anatomic landmarks. Needle tip position was confirmed on both sides in both the AP and lateral views. Next, all levels were stimulated at 2Hz for motor stimulation at 2.0V with no upper extremity motor contractions. Next 0.5mL of 2.0% lidocaine was injected through each needle tip. Thereafter, radiofrequency lesioning was carried out at 80 degrees for 80 seconds twice. Next 0.5mL of 2.0% lidocaine was injected through each needle tip. Thereafter, radiofrequency lesioning was carried out at 80 degrees for 80 seconds twice. The needles were removed. The patient was then transferred to the recovery room in stable condition. Postprocedure upper and lower extremity strength 5/5 bilaterally. Follow-up: Discharge instructions provided. The patient agrees to continue currently prescribed/recommended therapies. [facility] 01-12-2024 Evaluation note* Encounter Date Diagnosis Assessment Notes Treatment Notes Treatment Clinical Notes Mar, Visit for suture removal (ICD-10 - Z48.02) no charge, remainder of sutures removed. area cleaned w H202 and steristrips reapplied. [facility] Other 01-09-2024 Evaluation note* Encounter Date Diagnosis Assessment Notes Treatment Notes Treatment Clinical Notes Mar, Visit for suture removal (ICD-10 - Z48.02) Removed 3/4 of sutures from L 2nd and 3rd fingers. Steristrips applied to encourage complete closure of lacerations. Pt will return on 04/11 for remainder of sutures removed. [facility] Other 08-01-2023 Evaluation note* Encounter Date Diagnosis Assessment Notes Treatment Notes Treatment Clinical Notes Oct, PSA elevation (ICD-10 - R97.20) [facility] Other 04-11-2023 Evaluation note* Encounter Date Diagnosis Assessment Notes Treatment Notes Treatment Clinical Notes Jun, Bronchitis (ICD-10 - J40) Do not hold in a cough that brings up mucus. This type of cough helps clear mucus from your bronchial tree. If you smoke, you should quit. It will help your bronchial tree heal faster. Jun, Lower abdominal pain (ICD-10 - R10.30) Assess degree of constipation with KUB. Patient states he has been told in the past to take laxative or prunes juice for improvement. [facility] Other 04-03-2023 Evaluation note* Encounter Date Diagnosis Assessment Notes Treatment Notes Treatment Clinical Notes Jun, Bronchitis (ICD-10 - J40) Take medications as directed. Rest and increase fluid intake. Take meds with food to prevent stomach upset. Discussed CXR if symptoms do not improve. [facility] Other 02-22-2023 Evaluation note* Encounter Date Diagnosis Assessment Notes Treatment Notes Treatment Clinical Notes May, Medicare annual wellness visit, subsequent (ICD-10 - Z00.00) Personalized health advice was given to the beneficiary including a written plan for screenings discussed and provided. Advanced care planning reviewed and/or information given as requested. Additional counseling was provided here today in regards to, [ ]. The above visit was performed by [ ], under direct supervision of [ ]. Document reviewed and amended by provider signed below. May, Left anterior knee pain (ICD-10 - M25.562) gave form for PT. He agrees to try steroids first May, Screening for prostate cancer (ICD-10 - Z12.5) requests screening blood test May, Essential (primary) hypertension (ICD-10 - I10) Due for labs on present meds. states he is fasting now. [facility] Other 08-17-2022 History of Present illness Narrative* SOFIA Calhoun - 11/14/2021 9:00 AM EDT Images from the original note were not included. [facility] Outpatient Occupational Therapy Daily Note Date: 11/14/2021 Patient Name: Bret Yap : 1940 Physician: Isrrael Greene MD Insurance: Medicare- 36 visits approved Diagnosis: Rupture of extensor tendon of R ring & little finger Onset Date: 09/04/2021 Next Appt: no further follow ups Visit# / total visits: Cancels/No Shows: 0 Subjective: Patient reports this date that he has seen an 85% improvement since the beginning of therapy. Continues to report difficulty with making a full fist and extending all digits. Reports he continues to wear compression glove all the time at home. Pre Treatment Pain: [] Yes [x] No Location: N/A Pain Rating: (0-10 scale) 0/10 Post Treatment Pain: [x] Yes [] No Location: ringer and middle finger on R hand Pain Rating: (0-10 scale) 1/10 Objective: Patient reports he was anticipating discharge from OT services at the start of today's session. Following today's session reports he would like to keep attending OT until he leaves for a trip on November 23. Continued with STM, PROM, resistive supervisor special education exercises, and FMC this sessionw/ good tolerance. Will continue to address goals and progress patient as able Modalities: Date Initiated Tx Modality [] Electrical Stim: x __ mins [] Biphasic [] [place] Ramp: [] 2.0 [] 1.5 [] 1.0 [] 0.5 Cont/Rest: [] Cont [] [] 01/27 [] 01/07 Location: [] Ultrasound: ___ W/cm2 x ___ mins Duty factor: [] 100% [] 50% [] 20% [] 10% MHz: __1mHz __3mHz Location: [] Paraffin: [x] Hot Pack: Applied to R wrist and hand [] Cold Pack: Exercises: EXERCISE REPS/ TIME WEIGHT/ LEVEL COMMENTS PROM R wrist and fingers Place and hold R hand FMC In hand manipulation w/ jacks Brown Gripper 2x10 2nd setting Pt education Wrist flex/ext stretches and blue therapy sponge Assessment: [x] Progressing toward goals [] No change [] Other [x] Patient would continue to benefit from skilled occupational therapy services in order to: improve R wrist and finger ROM Pt. Education: [x] Yes [] No [] Reviewed Prior HEP/Education Method of Education: [x] Verbal [] Demo [] Written Re: Stretches for wrist flexion and extension and blue resistive sponge exercises Comprehension of Education: [x] Verbalizes understanding [x] Demonstrates understanding [] Needs review [] Demonstrates/verbalizes HEP/education previously given Goals Short Term Goals Time Frame for Short term goals: STG=LTG Snf Goals Time Frame for computer terminal operator goals : 18 visits (11/30/21) Boardinghouse Keeper Goal 1: Pt to increase R wrist extension to 45 degrees or more in order to engage in functional self care tasks LTG 1 Current Status:: 38 degrees extension (improved 2 degrees) LTG Goal 1 Status:: In progress Boardinghouse Keeper Goal 2: Pt to increase R RD to 20 degrees or more to engage in functional self care tasks LTG 2 Current Status:: RD 0-20 LTG Goal 2 Status:: Met Snf Goal 3: Pt to increase index MCP to 75 degrees or more to engage in functional self care tasks LTG 3 Current Status:: Index MCP 75 LTG Goal 3 Status:: Met Snf Goal 4: Pt to touch all digits to DPC of R hand in order to make a fist LTG 4 Current Status:: unable to touch DPC (ring finger 2.4cm; middle finger 3cm; pinky 1cm & index 1cm from DPC) LTG Goal 4 Status:: In progress Snf Goal 5: Pt to reduce R handed MCP edema to 10cm or less in order to make fist LTG 5 Current Status:: 20.6 cm at MCPs LTG Goal 5 Status:: In progress Plan: [x] Continue per current plan of care [] Hold therapy due to: [] Specific Instructions for future sessions: [] Other: Time In: 904 Time Out: 949 Timed Coded Minutes: 40 Total Treatment Time: 45 HUGO Calhoun Date: 11/14/2021 documented in this encounterBON [facility]Mean[facility] [place] Phone: [phone] History of Present illness Narrative* SOFIA Byrne - 11/12/2021 9:00 AM EDT Images from the original note were not included. [facility] Outpatient Occupational Therapy Daily Note Date: 11/12/2021 Patient Name: Bret Yap : 1940 Physician: Isrrael Greene MD Insurance: Medicare- 36 visits approved Diagnosis: Rupture of extensor tendon of R ring & little finger Onset Date: 09/04/2021 Next Appt: no further follow ups Visit# / total visits: Cancels/No Shows: 0 Subjective: Pt reports ~75% improvement since beginning therapy but states I've noticed its kind of at a stand still the last week or so. Pre Treatment Pain: [] Yes [x] No Location: N/A Pain Rating: (0-10 scale) 0/10 Post Treatment Pain: [] Yes [x] No Location: N/A Pain Rating: (0-10 scale) 0/10 Objective: Modalities: Tx Modality [x] Electrical Stim: x 10 mins @ 45 int [] Biphasic [] [place] Ramp: [] 2.0 [] 1.5 [x] 1.0 [] 0.5 Cont/Rest: [] Cont [] [x] 30 [] 01/07 Location: 2 pads placed on dorsum of forearm (1st pad placed more laterally on forearm) [] Ultrasound: ___ W/cm2 x ___ mins Duty factor: [] 100% [] 50% [] 20% [] 10% MHz: __1mHz __3mHz Location: [x] Paraffin: wrapped in coban in fist x 5 min [] Hot Pack: [] Cold Pack: Exercises: EXERCISE REPS/ TIME WEIGHT/ LEVEL COMMENTS PROM R wrist and fingers Place and hold 3x10 sec R hand FMC In-hand manipulation with marbles Brown gripper 1x10 1st setting Increase resistance next session Blue/green Handmaster ball 2x10 R Wrist Extension 0-70: 0-24 R Wrist Radial Deviation 0-20: 0-14 R Index MCP 0-90: 0-70 Unable to touch DPC Edema: 21.6 cm at MCPs Assessment: Re-assessed goals this session with decrease noted in ROM and increase in edema. [x] Progressing toward goals [] No change [] Other [x] Patient would continue to benefit from skilled occupational therapy services in order to: improve active finger extension and ROM of R wrist and hand. Pt. 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 for computer terminal operator goals : 18 visits (11/30/21) Snf Goal 1: Pt to increase R wrist extension to 45 degrees or more in order to engage in functional self care tasks LTG 1 Current Status:: 38 degrees extension (improved 2 degrees) Boardinghouse Keeper Goal 2: Pt to increase R RD to 20 degrees or more to engage in functional self care tasks LTG 2 Current Status:: RD 0-20 LTG Goal 2 Status:: Met Boardinghouse Keeper Goal 3: Pt to increase index MCP to 75 degrees or more to engage in functional self care tasks LTG 3 Current Status:: Index MCP 75 LTG Goal 3 Status:: Met Snf Goal 4: Pt to touch all digits to DPC of R hand in order to make a fist LTG 4 Current Status:: unable to touch DPC (ring finger 2.4cm; middle finger 3cm; pinky 1cm & index 1cm from DPC) LTG Goal 4 Status:: In progress Boardinghouse Keeper Goal 5: Pt to reduce R handed MCP edema to 10cm or less in order to make fist LTG 5 Current Status:: 20.6 cm at MCPs Plan: [x] Continue per current plan of care [] Hold therapy due to: [x] Specific Instructions for future sessions: Pt wishes to continue OT x1 additional visit with OTR prior to d/c from OT services. [] Other: Time In: 904 Time Out: 954 Timed Coded Minutes: 45 Total Treatment Time: 50 HUGO Byrne Date: 11/12/2021 documented in this encounterBON [facility] [place] Phone: [phone]) [phone] History of Present illness Narrative* Nelly Trevizo OT - 11/09/2021 9:00 AM EDT Images from the original note were not included. [facility] Outpatient Occupational Therapy Daily Note Date: 11/09/2021 Patient Name: Bret Yap : 1940 Physician: Isrrael Greene MD Insurance: Medicare- 36 visits approved Diagnosis: Rupture of extensor tendon of R ring & little finger Onset Date: 09/04/2021 Next Appt: no further follow ups Visit# / total visits: Cancels/No Shows: 0 Subjective: Denied any new concerns/changes since the last OT session. Arrived to this session approximately 4 minutes late. Reported that the paraffin heat has been beneficial stating, I'm able to make a better fist. Pre Treatment Pain: [] Yes [x] No Location: N/A Pain Rating: (0-10 scale) 0/10 Post Treatment Pain: [] Yes [x] No Location: N/A Pain Rating: (0-10 scale) 0/10 Objective: Modalities: Tx Modality [x] Electrical Stim: x 10 mins @ 45 intensity [] Biphasic [x] [place] Ramp: [] 2.0 [] 1.5 [x] 1.0 [] 0.5 Cont/Rest: [] Cont [] [x] 1030 [] 1010 Location: 2 pads placed on dorsum of forearm (1st pad placed more laterally on forearm) [] Ultrasound: ___ W/cm2 x ___ mins Duty factor: [] 100% [] 50% [] 20% [] 10% MHz: __1mHz __3mHz Location: [x] Paraffin: wrapped in coban while in fist [] Hot Pack: [] Cold Pack: Exercises: EXERCISE REPS/ TIME WEIGHT/ LEVEL COMMENTS PROM of R wrist/digits Not completed Place & holds 1x10 Not completed Active finger extension (individual) 1x10 Not completed Extending all fingers simultaneously 1x10 Not completed Wrist jux 1x10 Completed to address right wrist extension and RD AROM - reported fatigue in wrist joint after completion Stanton pickling grader/hold/in-hand translation 3x10 Completed to address right index MCP flexion AROM and ability to touch all digits to right hand DPC - no drops Groove pegboard Not completed Velcro checkers (alternating fingers) 2 series (on/off) Initiated to address MCP/DIP/PIP flexion AROM in each right digit - good tolerance Assessment: [x] Progressing toward goals [] No change [] Other [x] Patient would continue to benefit from skilled occupational therapy services in order to: continue to improve active finger extension, ability to form tight fist to prevent dropping of small items & overall function of R hand. Pt. Education: [] Yes [x] No [] Reviewed Prior HEP/Education Method of Education: [] Verbal [] Demo [] Written Comprehension of Education: [] Verbalizes understanding [] Demonstrates understanding [] Needs review [] Demonstrates/verbalizes HEP/education previously given Goals: Short Term Goals Time Frame for Short term goals: STG=LTG Boardinghouse Keeper Goals Time Frame for FPC goals : 18 visits (11/30/21) Boardinghouse Keeper Goal 1: Pt to increase R wrist extension to 45 degrees or more in order to engage in functional self care tasks LTG 1 Current Status:: 38 degrees extension (improved 2 degrees) Boardinghouse Keeper Goal 2: Pt to increase R RD to 20 degrees or more to engage in functional self care tasks LTG 2 Current Status:: RD 0-20 LTG Goal 2 Status:: Met Boardinghouse Keeper Goal 3: Pt to increase index MCP to 75 degrees or more to engage in functional self care tasks LTG 3 Current Status:: Index MCP 75 LTG Goal 3 Status:: Met Boardinghouse Keeper Goal 4: Pt to touch all digits to DPC of R hand in order to make a fist LTG 4 Current Status:: unable to touch DPC (ring finger 2.4cm; middle finger 3cm; pinky 1cm & index 1cm from DPC) LTG Goal 4 Status:: In progress Snf Goal 5: Pt to reduce R handed MCP edema to 10cm or less in order to make fist LTG 5 Current Status:: 20.6 cm at MCPs Plan: [x] Continue per current plan of care [] Hold therapy due to: [] Specific Instructions for future sessions: Patient is agreeable to discharge next week. [] Other: Time In: 903 Time Out: 944 Timed Coded Minutes: 41 Total Treatment Time: 41 NAHUN Cruz/Brian Date: 11/09/2021 documented in this encounterBON [facility] [place] Work Phone: [phone] History of Present illness Narrative* Mary Brizuela OT - 11/07/2021 9:00 AM EDT Images from the original note were not included. [facility] Outpatient Occupational Therapy Daily Note Date: 11/07/2021 Patient Name: Bret Yap : 1940 Physician: Isrrael Greene MD Insurance: Medicare- 36 visits approved Diagnosis: Rupture of extensor tendon of R ring & little finger Onset Date: 09/04/2021 Next Appt: no further follow ups Visit# / total visits: Cancels/No Shows: 0 Subjective: Pt states It's going pretty good. It's getting better, theres's no doubt about it. Just going slowly for a fernie who's anxious about it. Pt relays that it is much easier to do things around the home now. Pre Treatment Pain: [] Yes [x] No Location: N/A Pain Rating: (0-10 scale) 0/10 Post Treatment Pain: [] Yes [x] No Location: N/A Pain Rating: (0-10 scale) 0/10 Objective: Modalities: Tx Modality [x] Electrical Stim: x 10 mins @ 39 intensity [] Biphasic [x] [place]ian Ramp: [] 2.0 [] 1.5 [x] 1.0 [] 0.5 Cont/Rest: [] Cont [] [x] 01/27 [] 01/07 Location: 2 pads placed on dorsum of forearm (1st pad placed more laterally on forearm) [] Ultrasound: ___ W/cm2 x ___ mins Duty factor: [] 100% [] 50% [] 20% [] 10% MHz: __1mHz __3mHz Location: [x] Paraffin: wrapped in coban while in fist [] Hot Pack: [] Cold Pack: Exercises: EXERCISE REPS/ TIME WEIGHT/ LEVEL COMMENTS PROM of R wrist/digits Place & holds 1x10 Improvement w/ holding ring finger & pinky to DPC but only for a few seconds Active finger extension (individual) 1x10 Only able to demo active extension for index finger. AA needed for remaining digits Extending all fingers simultaneously 1x10 AA needed to extend all at once Wrist jux 1x10 Stanton pickling grader X10 beads 3x 1 drop, 0 drops & 0 drops- noted improvement with holding beads in palm Groove pegboard Initiated this session Assessment: [x] Progressing toward goals [] No change [] Other [x] Patient would continue to benefit from skilled occupational therapy services in order to: continue to improve active finger extension, ability to form tight fist to prevent dropping of small items & overall function of R hand. spoke with pt regarding need for continued outpt OT for R hand. Pt & therapist feel that pt'smobility & functional use of R hand may have reached optimal function at this time. Discussed potential D/C OT next week with possibility of d/c sooner based on pt's preference. Pt. Education: [] Yes [x] No [] Reviewed Prior HEP/Education Method of Education: [] Verbal [] Demo [] Written Comprehension of Education: [] Verbalizes understanding [] Demonstrates understanding [] Needs review [] Demonstrates/verbalizes HEP/education previously given Goals Short Term Goals Time Frame for Short term goals: STG=LTG Boardinghouse Keeper Goals Time Frame for FPC goals : 18 visits (11/30/21) Snf Goal 1: Pt to increase R wrist extension to 45 degrees or more in order to engage in functional self care tasks LTG 1 Current Status:: 38 degrees extension (improved 2 degrees) Boardinghouse Keeper Goal 2: Pt to increase R RD to 20 degrees or more to engage in functional self care tasks LTG 2 Current Status:: RD 0-20 LTG Goal 2 Status:: Met Boardinghouse Keeper Goal 3: Pt to increase index MCP to 75 degrees or more to engage in functional self care tasks LTG 3 Current Status:: Index MCP 75 LTG Goal 3 Status:: Met Boardinghouse Keeper Goal 4: Pt to touch all digits to DPC of R hand in order to make a fist LTG 4 Current Status:: unable to touch DPC (ring finger 2.4cm; middle finger 3cm; pinky 1cm & index 1cm from DPC) LTG Goal 4 Status:: In progress Snf Goal 5: Pt to reduce R handed MCP edema to 10cm or less in order to make fist LTG 5 Current Status:: 20.6 cm at MCPs Plan: [x] Continue per current plan of care [] Hold therapy due to: [] Specific Instructions for future sessions: [] Other: Time In: 900 Time Out: 945 Timed Coded Minutes: 45 Total Treatment Time: 45 SUKHJINDER Randhawa, OTR/L Date: 11/07/2021 documented in this encounterBON [employer] Phone: [phone]) [phone] History of Present illness Narrative* Mary Brizuela OT - 11/05/2021 9:00 AM EDT Images from the original note were not included. [facility] Outpatient Occupational Therapy Daily Note Date: 11/05/2021 Patient: Bret Yap : 1940 Referring Provider (secondary): Isrrael Greene MD Diagnosis: Rupture of extensor tendon of R ring & little finger OT Insurance Information: Medicare- 36 visits approved; will just need an updated POC after [id number] visits completed. Total # of Visits Approved: 36 Per Physician Order Total # of Visits to Date: 24 Canceled Appointment: 0 Canceled Appointment: 0 Comments: strain of extensor muscle, fascia & tendon of R middle, ring & little finger at wrist & hand level- Per physician's order *Active passive ROM, edema control & modalities as appropriate* Pre-Treament Pain: 0 Subjective: Pt states he worked his hand out all weekend but forgot to wear the compression glove last night & states his hand seems more swollen & stiffer this morning. Objective R Wrist Extension 0-70: 0-38 R Wrist Radial Deviation 0-20: 0-20 R Index MCP 0-90: 0-75 Unable to touch DPC (ring finger 2.4cm; middle finger 3cm; pinky 1cm & index 1cm from DPC) Edema: 20.6 cm at MCPs Assessment Assessment: Re-assessed goals this date. Pt has made improvements & has met 2 LTGs this date. Continued w/ e-stim for muscle re-ed regarding active finger extension. Continued with AROM/PROM and dexterity activities with good tolerates. Noted improvement with ability to hold small items in palmwithout dropping (10 small sized marbles). Will continue to progress as pt tolerates. Prognosis: Fair Post Treatment Pain: 0 Goals Short Term Goals Time Frame for Short term goals: STG=LTG Boardinghouse Keeper Goals Time Frame for FPC goals : 18 visits (11/30/21) Boardinghouse Keeper Goal 1: Pt to increase R wrist extension to 45 degrees or more in order to engage in functional self care tasks LTG 1 Current Status:: 38 degrees extension (improved 2 degrees) LTG Goal 1 Status:: In progress Boardinghouse Keeper Goal 2: Pt to increase R RD to 20 degrees or more to engage in functional self care tasks LTG 2 Current Status:: RD 0-20 LTG Goal 2 Status:: Met Snf Goal 3: Pt to increase index MCP to 75 degrees or more to engage in functional self care tasks LTG 3 Current Status:: Index MCP 75 LTG Goal 3 Status:: Met Boardinghouse Keeper Goal 4: Pt to touch all digits to DPC of R hand in order to make a fist LTG 4 Current Status:: unable to touch DPC (ring finger 2.4cm; middle finger 3cm; pinky 1cm & index 1cm from DPC) LTG Goal 4 Status:: In progress Snf Goal 5: Pt to reduce R handed MCP edema to 10cm or less in order to make fist LTG 5 Current Status:: 20.6 cm at MCPs LTG Goal 5 Status:: In progress Time In: 900 Time Out: 945 Timed Coded Minutes: 45 Total Treatment Time: 45 SUKHJINDER Randhawa, OTR/L Date: 11/05/2021 documented in this encounterBON [facility] Phone: [phone]) [phone] History of Present illness Narrative* Mary Brizuela OT - 11/02/2021 9:15 AM EDT Images from the original note were not included. [facility] Outpatient Occupational Therapy Daily Note Date: 11/02/2021 Patient: Bret Yap : 1940 Referring Provider (secondary): Isrrael Greene MD Diagnosis: Rupture of extensor tendon of R ring & little finger Onset Date: 09/04/21 OT Insurance Information: Medicare- 36 visits approved; will just need an updated POC after [id number] visits completed. Total # of Visits Approved: 36 Per Physician Order Total # of Visits to Date: 23 No Show: 0 Canceled Appointment: 0 Canceled Appointment: 0 Pre-Treament Pain: 0 Subjective: Continues to report little to no pain in R hand. Notable improvements with swelling at dorsum of R hand at MCPs. Pt states he has also noticed an improvement with swelling Assessment Assessment: Continued w/ e-stim for muscle re-education. Noted improved extension contraction of RMF this date w/ wrist extension noted as well. Tolerates AROM/PROM and dexterity activities well. Denies pain at end of session but states forearm & hand feel quite fatigued. Will continue to progress as pt tolerates. Prognosis: Fair Post Treatment Pain: 0 Goals Short Term Goals Time Frame for Short term goals: STG=LTG Boardinghouse Keeper Goals Time Frame for FPC goals : 18 visits (11/30/21) Boardinghouse Keeper Goal 1: Pt to increase R wrist extension to 45 degrees or more in order to engage in functional self care tasks LTG 1 Current Status:: extension 36 degrees (improved 1 degree since 10.09.21) LTG Goal 1 Status:: In progress Snf Goal 2: Pt to increase R RD to 20 degrees or more to engage in functional self care tasks LTG 2 Current Status:: RD 0-10 LTG Goal 2 Status:: In progress Boardinghouse Keeper Goal 3: Pt to increase index MCP to 75 degrees or more to engage in functional self care tasks LTG 3 Current Status:: Index MCP 74 LTG Goal 3 Status:: In progress Boardinghouse Keeper Goal 4: Pt to touch all digits to DPC of R hand in order to make a fist LTG 4 Current Status:: unable to touch DPC LTG Goal 4 Status:: In progress Boardinghouse Keeper Goal 5: Pt to reduce R handed MCP edema to 10cm or less in order to make fist LTG 5 Current Status:: 21.5 cm at MCPs LTG Goal 5 Status:: In progress Time In: 915 Time Out: 1000 Timed Coded Minutes: 45 Total Treatment Time: 45 SUKHJINDER Randhawa, OTR/L Date: 11/02/2021 documented in this encounterBON [facility]ENTER[facility] Phone: 1(361) 519-118508-02-2022 History of Present illness Narrative* Mary Brizuela OT - 10/30/2021 9:45 AM EDT Images from the original note were not included. [facility] Outpatient Occupational Therapy Daily Note Date: 10/30/2021 Patient: Bret Yap : 1940 Onset Date: 09/04/21 OT Insurance Information: Medicare- 36 visits approved; will just need an updated POC after [id number] visits completed. Per Physician Order Total # of Visits to Date: 22 No Show: 0 Canceled Appointment: 0 Canceled Appointment: 0 Comments: strain of extensor muscle, fascia & tendon of R middle, ring & little finger at wrist & hand level- Per physician's order *Active passive ROM, edema control & modalities as appropriate* Pre-Treament Pain: 0 Subjective: Continues to report little to no pain in R hand, noted improvement with swelling as pt requests smaller compression glove. Pt given X-small glove this date. Assessment Assessment: Continued w/ e-stim to extensor muscles of R forearm, STM, paraffin & PROM/AROM exercises. Completed light strengthening tasks this date w/ good tolerance. Provided with x-small compression glove this date as pt states his current glove does not provide compression anymore. Noted improvements with AROM of digits to form full fist and ability to isolate index finger. C/o tiredness after session, no pain. Will continue to progress as pt tolerates. Prognosis: Fair Post Treatment Pain: 0 Goals Short Term Goals Time Frame for Short term goals: STG=LTG Snf Goals Time Frame for FPC goals : 18 visits (11/30/21) Boardinghouse Keeper Goal 1: Pt to increase R wrist extension to 45 degrees or more in order to engage in functional self care tasks LTG 1 Current Status:: extension 36 degrees (improved 1 degree since 10.09.21) LTG Goal 1 Status:: In progress Snf Goal 2: Pt to increase R RD to 20 degrees or more to engage in functional self care tasks LTG 2 Current Status:: RD 0-10 LTG Goal 2 Status:: In progress Boardinghouse Keeper Goal 3: Pt to increase index MCP to 75 degrees or more to engage in functional self care tasks LTG 3 Current Status:: Index MCP 74 LTG Goal 3 Status:: In progress Snf Goal 4: Pt to touch all digits to DPC of R hand in order to make a fist LTG 4 Current Status:: unable to touch DPC LTG Goal 4 Status:: In progress Snf Goal 5: Pt to reduce R handed MCP edema to 10cm or less in order to make fist LTG 5 Current Status:: 21.5 cm at MCPs LTG Goal 5 Status:: In progress Time In: 945 Time Out: 1030 Timed Coded Minutes: 45 Total Treatment Time: 45 SUKHJINDER Randhawa, OTR/L Date: 10/30/2021 documented in this encounterBON [facility] Phone: [phone] History of Present illness Narrative* Mary Brizuela OT - 10/29/2021 9:15 AM EDT Images from the original note were not included. [facility] Outpatient Occupational Therapy Daily Note Date: 10/29/2021 Patient: Bret Yap : 1940 Referring Provider (secondary): Isrrael Greene MD Diagnosis: Rupture of extensor tendon of R ring & little finger Onset Date: 09/04/21 OT Insurance Information: Medicare- 36 visits approved; will just need an updated POC after visits completed. Total # of Visits Approved: 36 Per Physician Order Canceled Appointment: 0 Canceled Appointment: 0 Comments: strain of extensor muscle, fascia & tendon of R middle, ring & little finger at wrist & hand level- Per physician's order *Active passive ROM, edema control & modalities as appropriate* Pre-Treament Pain: 0 Subjective: Pt states no new complaints. States that in the evenings he can almost touch digits to DPC with assist from L hand but in the mornings he states the digits are very stiff. Assessment Assessment: Continued w/ e-stim to extensor muscles of R forearm, STM, paraffin & PROM/AROM exercises. Continue to note extensor lag at MCPs. Completed light strengthening tasks this date w/ goodtolerance. Pt states no follow up with ortho anymore. Will continue to progress as pt tolerates. 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 terminal operator goals : 18 visits (11/30/21) Boardinghouse Keeper Goal 1: Pt to increase R wrist extension to 45 degrees or more in order to engage in functional self care tasks LTG 1 Current Status:: extension 36 degrees (improved 1 degree since 10.09.21) LTG Goal 1 Status:: In progress Snf Goal 2: Pt to increase R RD to 20 degrees or more to engage in functional self care tasks LTG 2 Current Status:: RD 0-10 LTG Goal 2 Status:: In progress Snf Goal 3: Pt to increase index MCP to 75 degrees or more to engage in functional self care tasks LTG 3 Current Status:: Index MCP 74 LTG Goal 3 Status:: In progress Snf Goal 4: Pt to touch all digits to DPC of R hand in order to make a fist LTG 4 Current Status:: unable to touch DPC LTG Goal 4 Status:: In progress Snf Goal 5: Pt to reduce R handed MCP edema to 10cm or less in order to make fist LTG 5 Current Status:: 21.5 cm at MCPs LTG Goal 5 Status:: In progress Time In: 915 Time Out: 1000 Timed Coded Minutes: 45 Total Treatment Time: 45 SUKHJINDER Randhawa, OTR/L Date: 10/29/2021 [facility] Work Phone: [phone]) 349-295507-27-2022 History of Present illness Narrative* Nelly Trevizo OT - 10/24/2021 2:30 PM EDT Images from the original note were not included. [facility] [facility] Daily Note Date: 10/24/2021 Patient: Bret Yap : 1940 Referring Provider (secondary): Isrrael Greene MD Diagnosis: Rupture of extensor tendon of R ring & little finger Onset Date: 09/04/21 Total # of Visits Approved: 36 Per Physician Order Total # of Visits to Date: 20 Canceled Appointment: 0 Canceled Appointment: 0 Pre-Treament Pain: 0/10 Subjective: Reported that he had an EGD done today. Denied any upcoming doctor appointments. Reported that he is able to hold onto the steering wheel better now with right hand. Exercises/Modalities: See DocFlow Sheet Assessment Assessment: Continued with e-stim and paraffin this date. Trialed different pad placements (2 vs. 4) and ramp settings (2.0 vs. 1.0) and had better success producing muscle contraction with lower ramp and less pads. Good tolerance with PROM to right wrist/digits with increased flexion noted in digits. Reviewed tendon glide exercises and instructed patient to complete HEP 3x/day. Will continue to progress patient as tolerated. 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 for FPC goals : 18 visits (11/30/21) Boardinghouse Keeper Goal 1: Pt to increase R wrist extension to 45 degrees or more in order to engage in functional self care tasks LTG 1 Current Status:: extension 36 degrees (improved 1 degree since 10.09.21) LTG Goal 1 Status:: In progress Snf Goal 2: Pt to increase R RD to 20 degrees or more to engage in functional self care tasks LTG 2 Current Status:: RD 0-10 LTG Goal 2 Status:: In progress Boardinghouse Keeper Goal 3: Pt to increase index MCP to 75 degrees or more to engage in functional self care tasks LTG 3 Current Status:: Index MCP 74 LTG Goal 3 Status:: In progress Snf Goal 4: Pt to touch all digits to DPC of R hand in order to make a fist LTG 4 Current Status:: unable to touch DPC LTG Goal 4 Status:: In progress Boardinghouse Keeper Goal 5: Pt to reduce R handed MCP edema to 10cm or less in order to make fist LTG 5 Current Status:: 21.5 cm at MCPs LTG Goal 5 Status:: In progress Time In: 1430 Time Out: 1515 Timed Coded Minutes: 45 Total Treatment Time: 45 NAHUN Cruz/L Date: 10/24/2021 documented in this encounterBON [facility] Phone: [phone] 570-130307-26-2022 [facility] [place] History of Present illness Narrative* Nelly Trevizo OT - 10/19/2021 9:15 AM EDT Images from the original note were not included. [facility] Daily Note Date: 10/19/2021 Patient: Bret Yap : 1940 Referring Provider (secondary): Isrrael Greene MD Diagnosis: Rupture of extensor tendon of R ring & little finger Onset Date: 09/04/21 OT Insurance Information: Medicare- 36 visits approved; will just need an updated POC after [id number] visits completed. Total # of Visits Approved: 18 Per Physician Order Total # of Visits to Date: 18 Canceled Appointment: 0 Canceled Appointment: 0 Comments: strain of extensor muscle, fascia & tendon of R middle, ring & little finger at wrist & hand level- Per physician's order *Active passive ROM, edema control & modalities as appropriate* Pre-Treament Pain: 0/10 Subjective: Patient denied any new concerns this date. R Wrist Extension 0-70: 0-36 (improved 1 degree since 10.09.21) R Wrist Radial Deviation 0-20: 0-10 (lost 5 degrees since 10.09.21) R Wrist Ulnar Deviation 0-45: 0-25 (increase of 5 degrees since 10.09.21) Right Hand AROM (degrees) R Index MCP 0-90: 0-74 (increase of 7 degrees since 10.09.21) Assessment Assessment: Reassessed goals this date. Completed paraffin to right hand to facilitate increased ROM. Tolerated increased intensity on E-stim this date, but was noted to experience increased fatigue after approximately 8 minutes. Tolerated PROM to right wrist/digits/forearm. Denied any pain at the end of session, but reported soreness. Will continue to progress patient as able. 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 for computer terminal operator goals : 4 visits 10/19/2021) Snf Goal 1: Pt to increase R wrist extension to 45 degrees or more in order to engage in functional self care tasks LTG 1 Current Status:: extension 36 degrees (improved 1 degree since 10.09.21) LTG Goal 1 Status:: Not Met Boardinghouse Keeper Goal 2: Pt to increase R RD to 20 degrees & R UD to 25 degrees or more to engage in functional self care tasks LTG 2 Current Status:: RD 0-10 and UD 0-25 (met UD goal) LTG Goal 2 Status:: Partially met Snf Goal 3: Pt to increase index MCP to 75 degrees or more to engage in functional self care tasks LTG 3 Current Status:: Index MCP 74 LTG Goal 3 Status:: Not Met Boardinghouse Keeper Goal 4: Pt to touch all digits to DPC of R hand in order to make a fist LTG 4 Current Status:: unable to touch DPC LTG Goal 4 Status:: Not Met Snf Goal 5: Pt to reduce R handed MCP edema to 10cm or less in order to make fist LTG 5 Current Status:: 21.5 cm at MCPs LTG Goal 5 Status:: Not Met Time In: 0915 Time Out: 1000 Timed Coded Minutes: 45 Total Treatment Time: 45 Nelly Trevizo OTR/L Date: 10/19/2021 documented in [facility] encounterB[facility] [place] [facility] Phone: [phone]) 549-699407-20-2022 History of Present illness Narrative* Nelly Trevizo OT - 10/17/2021 9:15 AM EDT Images from the original note were not included. [facility] Daily Note Date: 10/17/2021 Patient: Bret Yap : 1940 Referring Provider (secondary): Isrrael Greene MD Diagnosis: Rupture of extensor tendon of R ring & little finger Onset Date: 09/04/21 OT Insurance Information: Medicare- 36 visits approved; will just need an updated POC after visits completed. Total # of Visits Approved: 18 Per Physician Order Total # of Visits to Date: 17 No Show: 0 Canceled Appointment: 0 Canceled Appointment: 0 Comments: strain of extensor muscle, fascia & tendon of R middle, ring & little finger at wrist & hand level- Per physician's order *Active passive ROM, edema control & modalities as appropriate* Pre-Treament Pain: 0/10 Subjective: Reported that he has been wearing his right compression glove as instructed. Denied anypain post activity, but reported soreness in right wrist. Exercises/Modalities: See DocFlow Sheet Assessment Assessment: Completed E-stim, paraffin, STM and PROM to right digits/wrist. 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 Discussed edema reduction strategies such as elevating right hand above heart level and completing hand pumping exercises as able. Will continue to progress patient as able. Prognosis: Fair Post Treatment Pain: 0/10 Goals Short Term Goals Time Frame for Short term goals: STG=LTG LTG 2 Current Status:: RD 0-15 & UD 0-20(lost 4 degrees of UD in 2 weeks) LTG Goal 2 Status:: Updated LTG 3 Current Status:: Index MCP 67 LTG Goal 3 Status:: Updated Boardinghouse Keeper Goals Time Frame for computer terminal operator goals : 4 visits 10/19/2021) Snf Goal 1: Pt to increase R wrist extension to 45 degrees or more in order to engage in functional self care tasks LTG 1 Current Status:: extension 35 degrees LTG Goal 1 Status:: Updated Boardinghouse Keeper Goal 2: Pt to increase R RD to 20 degrees & R UD to 25 degrees or more to engage in functional self care tasks LTG 2 Current Status:: RD 0-15 & UD 0-20(lost 4 degrees of UD in 2 weeks) LTG Goal 2 Status:: Updated Boardinghouse Keeper Goal 3: Pt to increase index MCP to 75 degrees or more to engage in functional self care tasks LTG 3 Current Status:: Index MCP 67 LTG Goal 3 Status:: Updated Snf Goal 4: Pt to touch all digits to DPC of R hand in order to make a fist LTG 4 Current Status:: unable to touch DPC LTG Goal 4 Status:: Updated Snf Goal 5: Pt to reduce R handed MCP edema to 10cm or less in order to make fist LTG 5 Current Status:: 21.2cm at MCPs LTG Goal 5 Status:: Updated Time In: 914 Time Out: 1000 Timed Coded Minutes: 45 Total Treatment Time: 45 NAHUN Cruz/Brian Date: 10/17/2021 documented in this encounterBON [facility] [employer] [place] Phone: [phone] History of Present illness Narrative* Mary Brizuela OT - 10/16/2021 9:45 AM EDT Images from the original note were not included. [facility] Daily Note Date: 10/16/2021 Patient: Bret Yap : 1940 Referring Provider (secondary): Isrrael Greene MD Diagnosis: Rupture of extensor tendon of R ring & little finger Onset Date: 09/04/21 OT Insurance Information: Medicare- 36 visits approved; will just need an updated POC after [id number] visits completed. Total # of Visits Approved: 18 Per Physician Order Total # of Visits to Date: 16 Canceled Appointment: 0 Comments: strain of extensor muscle, fascia & tendon of R middle, ring & little finger at wrist & hand level- Per physician's order *Active passive ROM, edema control & modalities as appropriate* Pre-Treament Pain: 0 Subjective: Pt states he continues to use R hand in daily tasks. States nothing new to report Assessment Assessment: Continued w/ current treatment regimen w/ good tolerance. Pt continues to demo slow progression of extension of fingers at MCPs. Pt's POC expires 10/19/2021 w/ pt using 18/18 initial prescribed sessions using 18/36 approved visits for year. Plan to update POC for 12 additional visits, will determine whether or not to continue with last 6 approved visits at that time pending pt's progress. Provided pt w/ size small compression glove this date as he states the medium glove no longer provides adequate compression to relieve swelling. Post Treatment Pain: 0 states no pain, just fatigue in hand Goals Short Term Goals Time Frame for Short term goals: STG=LTG Snf Goals Time Frame for computer terminal operator goals : 4 visits 10/19/2021) Boardinghouse Keeper Goal 1: Pt to increase R wrist extension to 45 degrees or more in order to engage in functional self care tasks LTG 1 Current Status:: extension 35 degrees LTG Goal 1 Status:: Updated Snf Goal 2: Pt to increase R RD to 20 degrees & R UD to 25 degrees or more to engage in functional self care tasks LTG 2 Current Status:: RD 0-15 & UD 0-20(lost 4 degrees of UD in 2 weeks) LTG Goal 2 Status:: Updated Boardinghouse Keeper Goal 3: Pt to increase index MCP to 75 degrees or more to engage in functional self care tasks LTG 3 Current Status:: Index MCP 67 LTG Goal 3 Status:: Updated Snf Goal 4: Pt to touch all digits to DPC of R hand in order to make a fist LTG 4 Current Status:: unable to touch DPC LTG Goal 4 Status:: Updated Boardinghouse Keeper Goal 5: Pt to reduce R handed MCP edema to 10cm or less in order to make fist LTG 5 Current Status:: 21.2cm at MCPs LTG Goal 5 Status:: Updated Time In: 945 Time Out: 1030 Timed Coded Minutes: 45 Total Treatment Time: 45 SUKHJINDER Randhawa, OTR/l Date: 10/16/2021 documented in this encounterB[facility] [place] [facility] Phone: [phone] 994-303507-15-2022 History of Present illness Narrative* Mary Brizuela OT - 10/12/2021 9:15 AM EDT Images from the original note were not included. [facility] Daily Note Date: 10/12/2021 Patient: Bret Yap : 1940 Referring Provider (secondary): Isrrael Greene MD Diagnosis: Rupture of extensor tendon of R ring & little finger OT Insurance Information: Medicare- 36 visits approved; will just need an updated POC after [id number] visits completed. Total # of Visits Approved: 18 Per Physician Order Total # of Visits to Date: 15 No Show: 0 Canceled Appointment: 0 Canceled Appointment: 0 Comments: strain of extensor muscle, fascia & tendon of R middle, ring & little finger at wrist & hand level- Per physician's order *Active passive ROM, edema control & modalities as appropriate* Pre-Treament Pain: 0 Subjective: Pt reports that physician states he has no restrictions at this time & that we are to continue per POC. Per pt, physician states not to worry much about wrist ROM Assessment Assessment: Continued w/ e-stim to extensor muscles of R forearm, STM, paraffin & PROM/AROM exercises. Continue to note extensor lag at MCPs. Pt states he is unable to isolate index finger to point at something. Plan to introduce slight strengthening activities in future sessions once AROM improves. Pt encouraged to continue to complete HEP and to use hand as much as possible at home. Pt V/U. Will continue per POC as pt tolerates. Post Treatment Pain: 0 Goals Short Term Goals Time Frame for Short term goals: STG=LTG Boardinghouse Keeper Goals Time Frame for computer terminal operator goals : 4 visits 10/19/2021) Boardinghouse Keeper Goal 1: Pt to increase R wrist extension to 45 degrees or more in order to engage in functional self care tasks LTG 1 Current Status:: extension 35 degrees LTG Goal 1 Status:: Updated Boardinghouse Keeper Goal 2: Pt to increase R RD to 20 degrees & R UD to 25 degrees or more to engage in functional self care tasks LTG 2 Current Status:: RD 0-15 & UD 0-20(lost 4 degrees of UD in 2 weeks) LTG Goal 2 Status:: Updated Snf Goal 3: Pt to increase index MCP to 75 degrees or more to engage in functional self care tasks LTG 3 Current Status:: Index MCP 67 LTG Goal 3 Status:: Updated Boardinghouse Keeper Goal 4: Pt to touch all digits to DPC of R hand in order to make a fist LTG 4 Current Status:: unable to touch DPC LTG Goal 4 Status:: Updated Snf Goal 5: Pt to reduce R handed MCP edema to 10cm or less in order to make fist LTG 5 Current Status:: 21.2cm at MCPs LTG Goal 5 Status:: Updated Time In: 918 Time Out: 1000 Timed Coded Minutes: 42 Total Treatment Time: 42 Mary Brizuela MOT, OTR/L documented in this encounterBON [facility] [place] [employer] Phone: [phone] History of Present illness Narrative* Mary Brizuela OT - 10/05/2021 3:00 PM EDT Images from the original note were not included. [facility] Daily Note Date: 10/05/2021 Patient: Bret Yap : 1940 Referring Provider (secondary): Isrrael Greene MD Diagnosis: Rupture of extensor tendon of R ring & little finger Onset Date: 09/04/21 OT Insurance Information: Medicare- 36 visits approved; will just need an updated POC after [id number] visits completed. Total # of Visits Approved: 18 Per Physician Order Total # of Visits to Date: 12 No Show: 0 Canceled Appointment: 0 Comments: strain of extensor muscle, fascia & tendon of R middle, ring & little finger at wrist & hand level- Per physician's order *Active passive ROM, edema control & modalities as appropriate* Pre-Treament Pain: 0 Subjective: Pt continues to c/o stiffness in wrist & fingers Assessment Assessment: Tolerates STM/scar massage, ROM, paraffin & e-stim to extensors of forearm. Plan toreassess goals within the next two sessions prior to pt's ortho follow up on the .Continue per POC as pt tolerates Prognosis: Fair Post Treatment Pain: 0 Goals Short Term Goals Time Frame for Short term goals: 3 weeks Short Term Goal 1: Pt to be compliant w/ compression glove wear schedule STG Goal 1 Status:: Met Short Term Goal 2: Pt to be independent with HEP STG Goal 2 Status:: Met Short Term Goal 3: Pt to reduce R handed MCP edema to 10cm or less in order to make fist STG Goal 3 Status:: In progress Short Term Goal 4: Pt to touch all digits to DPC of R hand in order to make a fist STG Goal 4 Status:: Not Met Snf Goals Time Frame for computer terminal operator goals : 6 weeks (10/09/2021) Snf Goal 1: Pt to increase R wrist flexion to 25 degrees or more & R wrist extension to 45 degrees or more in order to engage in functional self care tasks LTG 1 Current Status:: flexion 0-28 & extenion 0-30- flexion met LTG Goal 1 Status:: Partially met Boardinghouse Keeper Goal 2: Pt to increase R RD to 20 degrees & R UD to 25 degrees or more to engage in functional self care tasks LTG 2 Current Status:: RD 0-15 & UD 0-24 LTG Goal 2 Status:: In progress Boardinghouse Keeper Goal 3: Pt to increase R supination to 70 degrees or more & pronation to 75 degrees or more to engage in functional self care tasks LTG 3 Current Status:: sup 0-85 & pronation 0-90 LTG Goal 3 Status:: Met Snf Goal 4: Pt to increase index MCP to 75 degrees or more; middle MCP to 65 degrees or more;Ring MCP to 45 degrees or more; & pinky MCP to 45 degrees or more to engage in functional self care tasks LTG 4 Current Status:: index MCP 65; middle MCP 60; ring MCP 55; pinky MCP 50- ring & pinky MCP met LTG Goal 4 Status:: Partially met Boardinghouse Keeper Goal 5: Pt to increase index PIP to 65 degrees or more; middle PIP to 60 degrees or more;ring PIP to 70 degrees or more & pinky PIP to 55 degrees or more to engage in functional self care tasks LTG 5 Current Status:: index PIP 80; middle PIP 70; ring PIP 65; pinky PIP 60- all met except ring PIP LTG Goal 5 Status:: Partially met Snf Goal 6: Pt to increase index DIP to 30 degrees or more; middle DIP to 35 degrees or more;ring DIP to 35 degrees or more & pinky DIP to 35 degrees or more to engage in functional self care tasks Snf Goal 7: Pt to complete R hand 9 hole peg test in 30 seconds or less to engage in functional fine motor tasks Time In: 1505 Time Out: 1545 Timed Coded Minutes: 40 Total Treatment Time: 40 SUKHJINDER Randhawa, Date: 10/05/2021 documented in this encounterBON [facility] Phone: [phone] Evaluation note* Encounter Date Diagnosis Assessment Notes Treatment Notes Treatment Clinical Notes Sep, Iron deficiency anemia (ICD-10 - D50.9) Sep, Barretts esophagus (ICD-10 - K22.70) Sep, GERD (gastroesophageal reflux disease) (ICD-10 - K21.9) [facility] Other 07-05-2022 History of Present illness Narrative* Mary Brizuela OT - 10/02/2021 2:45 PM EDT Images from the original note were not included. [facility] Daily Note Date: 10/02/2021 Patient: Bret Yap : 1940 Referring Provider (secondary): Isrrael Greene MD Diagnosis: Rupture of extensor tendon of R ring & little finger Onset Date: 09/04/21 OT Insurance Information: Medicare- 36 visits approved; will just need an updated POC after [id number] visits completed. Total # of Visits Approved: 18 Per Physician Order Total # of Visits to Date: 11 No Show: 0 Canceled Appointment: 0 Comments: strain of extensor muscle, fascia & tendon of R middle, ring & little finger at wrist & hand level- Per physician's order *Active passive ROM, edema control & modalities as appropriate* Pre-Treament Pain: 0 Subjective: Pt states his hand was stiff this date. Assessment Assessment: Pt not wearing compression glove this date. States he thinks his swelling has improved but this morning his hand was sore & stiff. Tolerates STM/scar massage, ROM, paraffin & e-stim to extensors of forearm. Tolerates e- stim well but pt states he doesnt see the extension this date that he saw last session. Pt has follow up with ortho on October 10. Will reassess goals within thenext few sessions. Plan to continue per POC as pt tolerates Prognosis: Fair Post Treatment Pain: 0 Goals Short Term Goals Time Frame for Short term goals: 3 weeks Short Term Goal 1: Pt to be compliant w/ compression glove wear schedule STG Goal 1 Status:: Met Short Term Goal 2: Pt to be independent with HEP STG Goal 2 Status:: MET Short Term Goal 3: Pt to reduce R handed MCP edema to 10cm or less in order to make fist STG Goal 3 Status:: Not Met Short Term Goal 4: Pt to touch all digits to DPC of R hand in order to make a fist STG Goal 4 Status:: Not Met Snf Goals Time Frame for FPC goals : 6 weeks (10/09/2021) Boardinghouse Keeper Goal 1: Pt to increase R wrist flexion to 25 degrees or more & R wrist extension to 45 degrees or more in order to engage in functional self care tasks LTG 1 Current Status:: flexion 0-28 & extenion 0-30- flexion met LTG Goal 1 Status:: Partially met Boardinghouse Keeper Goal 2: Pt to increase R RD to 20 degrees & R UD to 25 degrees or more to engage in functional self care tasks LTG 2 Current Status:: RD 0-15 & UD 0-24 LTG Goal 2 Status:: In progress Snf Goal 3: Pt to increase R supination to 70 degrees or more & pronation to 75 degrees or more to engage in functional self care tasks LTG 3 Current Status:: sup 0-85 & pronation 0-90 LTG Goal 3 Status:: Met Snf Goal 4: Pt to increase index MCP to 75 degrees or more; middle MCP to 65 degrees or more;Ring MCP to 45 degrees or more; & pinky MCP to 45 degrees or more to engage in functional self care tasks LTG 4 Current Status:: index MCP 65; middle MCP 60; ring MCP 55; pinky MCP 50- ring & pinky MCP met LTG Goal 4 Status:: Partially met Boardinghouse Keeper Goal 5: Pt to increase index PIP to 65 degrees or more; middle PIP to 60 degrees or more;ring PIP to 70 degrees or more & pinky PIP to 55 degrees or more to engage in functional self care tasks LTG 5 Current Status:: index PIP 80; middle PIP 70; ring PIP 65; pinky PIP 60- all met except ring PIP LTG Goal 5 Status:: Partially met Boardinghouse Keeper Goal 6: Pt to increase index DIP to 30 degrees or more; middle DIP to 35 degrees or more;ring DIP to 35 degrees or more & pinky DIP to 35 degrees or more to engage in functional self care tasks Time In: 1450 Time Out: 1530 Timed Coded Minutes: 40 Total Treatment Time: 40 SUKHJINDER Randhawa, OTR/L Date: 10/02/2021 documented in this encounterBON [facility] Phone: [phone]) [phone] History of Present illness Narrative* Mary Brizuela OT - 09/26/2021 2:45 PM EDT Images from the original note were not included. [facility] Daily Note Date: 09/26/2021 Patient: Bret Yap : 1940 Referring Provider (secondary): Isrrael Greene MD Diagnosis: Rupture of extensor tendon of R ring & little finger Onset Date: 09/04/21 OT Insurance Information: Medicare- 36 visits approved; will just need an updated POC after [id number] visits completed. Total # of Visits Approved: 18 Per Physician Order Canceled Appointment: 0 Comments: strain of extensor muscle, fascia & tendon of R middle, ring & little finger at wrist & hand level- Per physician's order *Active passive ROM, edema control & modalities as appropriate* Pre-Treament Pain: 0 Subjective: Pt states he worked his hand pretty good today. 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 Assessment Assessment: Continued w/ paraffin/STM/scar massage, and all ROM exercises. Initiated e-stim to extensors of forearm this date to stimulate active contraction of extensors for active finger extension as pt currently unable to lift fingers off table d/t extension lag. Tolerates well. Will continue per POC as pt tolerates. Prognosis: Fair Post Treatment Pain: 0 Goals Short Term Goals Time Frame for Short term goals: 3 weeks Short Term Goal 1: Pt to be compliant w/ compression glove wear schedule STG Goal 1 Status:: Met Short Term Goal 2: Pt to be independent with HEP LTG 2 Current Status:: RD 0-15 & UD 0-24 LTG Goal 2 Status:: In progress Short Term Goal 3: Pt to reduce R handed MCP edema to 10cm or less in order to make fist LTG 3 Current Status:: sup 0-85 & pronation 0-90 LTG Goal 3 Status:: Met Short Term Goal 4: Pt to touch all digits to DPC of R hand in order to make a fist STG Goal 4 Status:: Not Met Snf Goals Time Frame for FPC goals : 6 weeks (10/09/2021) Snf Goal 1: Pt to increase R wrist flexion to 25 degrees or more & R wrist extension to 45 degrees or more in order to engage in functional self care tasks LTG 1 Current Status:: flexion 0-28 & extenion 0-30- flexion met LTG Goal 1 Status:: Partially met Boardinghouse Keeper Goal 2: Pt to increase R RD to 20 degrees & R UD to 25 degrees or more to engage in functional self care tasks LTG 2 Current Status:: RD 0-15 & UD 0-24 LTG Goal 2 Status:: In progress Snf Goal 3: Pt to increase R supination to 70 degrees or more & pronation to 75 degrees or more to engage in functional self care tasks LTG 3 Current Status:: sup 0-85 & pronation 0-90 LTG Goal 3 Status:: Met LTG 4 Current Status:: index MCP 65; middle MCP 60; ring MCP 55; pinky MCP 50- ring & pinky MCP met LTG Goal 4 Status:: Partially met Boardinghouse Keeper Goal 5: Pt to increase index PIP to 65 degrees or more; middle PIP to 60 degrees or more;ring PIP to 70 degrees or more & pinky PIP to 55 degrees or more to engage in functional self care tasks LTG 5 Current Status:: index PIP 80; middle PIP 70; ring PIP 65; pinky PIP 60- all met except ring PIP LTG Goal 5 Status:: Partially met Boardinghouse Keeper Goal 6: Pt to increase index DIP to 30 degrees or more; middle DIP to 35 degrees or more;ring DIP to 35 degrees or more & pinky DIP to 35 degrees or more to engage in functional self care tasks Boardinghouse Keeper Goal 7: Pt to complete R hand 9 hole peg test in 30 seconds or less to engage in functional fine motor tasks Time In: 1445 Time Out: 1530 Timed Coded Minutes: 45 Total Treatment Time: 45 SUKHJINDER Randhawa, OTR/L Date: 09/26/2021 documented in this encounterBON [facility]ENTERMeaningo [place] Phone: [phone] History of Present illness Narrative* Mary Brizuela OT - 09/25/2021 9:15 AM EDT Images from the original note were not included. [facility] Outpatient Occupational Therapy Daily Note Date: 09/25/2021 Patient: Bret Yap : 1940 Referring Provider (secondary): Isrrael Greene MD Diagnosis: Rupture of extensor tendon of R ring & little finger Onset Date: 09/04/21 OT Insurance Information: Medicare- 36 visits approved; will just need an updated POC after [id number] visits completed. Total # of Visits Approved: 18 Per Physician Order Total # of Visits to Date: 8 Canceled Appointment: 0 Comments: strain of extensor muscle, fascia & tendon of R middle, ring & little finger at wrist & hand level- Per physician's order *Active passive ROM, edema control & modalities as appropriate* Pre-Treament Pain: 0 Objective Fine Motor Skills Right 9 Hole Peg Test Time (secs): 29.3seconds RUE AROM (degrees) R Forearm Pron 0-90: 0-90 R Forearm Supination 0-90: 0-85 R Wrist Flexion 0-80: 0-28 R Wrist Extension 0-70: 0-30 R Wrist Radial Deviation 0-20: 0-15 R Wrist Ulnar Deviation 0-45: 0-24 Right Hand AROM (degrees) R Index MCP 0-90: 0-65 R Index PIP 0-100: 0-80 R Index DIP 0-70: 0-40 R Long MCP 0-90: 0-60 R Long PIP 0-100: 0-70 R Long DIP 0-70: 0-35 R Ring MCP 0-90: 0-55 R Ring PIP 0-100: 0-65 R Ring DIP 0-70: 0-35 R Little MCP 0-90: 0-50 R Little PIP 0-100: 0-60 R Little DIP 0-70: 0-40 Assessment Assessment: Continued w/ paraffin/STM/scar massage, and all ROM exercises. Reassessed goals this date as indicated above. Pt making good progress with ROM of digits. Will continue per POC as pt tolerates. Prognosis: Fair Post Treatment Pain: 0 Goals Short Term Goals Time Frame for Short term goals: 3 weeks Short Term Goal 1: Pt to be compliant w/ compression glove wear schedule STG Goal 1 Status:: Met Short Term Goal 2: Pt to be independent with HEP STG Goal 2 Status:: Met Short Term Goal 3: Pt to reduce R handed MCP edema to 10cm or less in order to make fist STG Goal 3 Status:: Not Met Short Term Goal 4: Pt to touch all digits to DPC of R hand in order to make a fist STG Goal 4 Status:: Not Met Boardinghouse Keeper Goals Time Frame for FPC goals : 6 weeks (10/09/2021) Snf Goal 1: Pt to increase R wrist flexion to 25 degrees or more & R wrist extension to 45 degrees or more in order to engage in functional self care tasks LTG 1 Current Status:: flexion 0-28 & extenion 0-30- flexion met LTG Goal 1 Status:: Partially met Boardinghouse Keeper Goal 2: Pt to increase R RD to 20 degrees & R UD to 25 degrees or more to engage in functional self care tasks LTG 2 Current Status:: RD 0-15 & UD 0-24 LTG Goal 2 Status:: In progress Boardinghouse Keeper Goal 3: Pt to increase R supination to 70 degrees or more & pronation to 75 degrees or more to engage in functional self care tasks LTG 3 Current Status:: sup 0-85 & pronation 0-90 LTG Goal 3 Status:: Met Boardinghouse Keeper Goal 4: Pt to increase index MCP to 75 degrees or more; middle MCP to 65 degrees or more;Ring MCP to 45 degrees or more; & pinky MCP to 45 degrees or more to engage in functional self care tasks LTG 4 Current Status:: index MCP 65; middle MCP 60; ring MCP 55; pinky MCP 50- ring & pinky MCP met LTG Goal 4 Status:: Partially met Boardinghouse Keeper Goal 5: Pt to increase index PIP to 65 degrees or more; middle PIP to 60 degrees or more;ring PIP to 70 degrees or more & pinky PIP to 55 degrees or more to engage in functional self care tasks LTG 5 Current Status:: index PIP 80; middle PIP 70; ring PIP 65; pinky PIP 60- all met except ring PIP LTG Goal 5 Status:: Partially met Snf Goal 6: Pt to increase index DIP to 30 degrees or more; middle DIP to 35 degrees or more;ring DIP to 35 degrees or more & pinky DIP to 35 degrees or more to engage in functional self care tasks Boardinghouse Keeper Goal 7: Pt to complete R hand 9 hole peg test in 30 seconds or less to engage in functional fine motor tasks Time In: 920 Time Out: 1000 Timed Coded Minutes: 40 Total Treatment Time: 40 SUKHJINDER Randhawa, OTR/L Date: 09/25/2021 documented in this encounterBON [facility]ENTERMean[facility] [place] Phone: [phone] History of Present illness Narrative* Mary Brizuela OT - 09/21/2021 8:30 AM EDT Images from the original note were not included. [facility] Outpatient Occupational Therapy Daily Note Date: 09/21/2021 Patient: Bret Yap : 1940 Referring Provider (secondary): Isrrael Greene MD Diagnosis: Rupture of extensor tendon of R ring & little finger Onset Date: 09/04/21 OT Insurance Information: Medicare- 36 visits approved; will just need an updated POC after [id number] visits completed. Total # of Visits Approved: 18 Per Physician Order Canceled Appointment: 0 Comments: strain of extensor muscle, fascia & tendon of R middle, ring & little finger at wrist & hand level- Per physician's order *Active passive ROM, edema control & modalities as appropriate* Pre-Treament Pain:0 Subjective: Pt states he feels the hand is making progress regarding making a fist but states he still continues to struggle with active extension of middle finger through pinky. Assessment Assessment: Continued w/ paraffin/STM/scar massage, and all ROM exercises. Plan to reassess ROM goals next week. Will continue to address goals and progress patient as tolerated. Prognosis: Fair Post Treatment Pain: 1 Goals Short Term Goals Time Frame for Short term goals: 3 weeks Short Term Goal 1: Pt to be compliant w/ compression glove wear schedule STG Goal 1 Status:: Met Short Term Goal 2: Pt to be independent with HEP Short Term Goal 3: Pt to reduce R handed MCP edema to 10cm or less in order to make fist Short Term Goal 4: Pt to touch all digits to DPC of R hand in order to make a fist STG Goal 4 Status:: In progress Boardinghouse Keeper Goals Time Frame for computer terminal operator goals : 6 weeks (10/09/2021) Boardinghouse Keeper Goal 1: Pt to increase R wrist flexion to 25 degrees or more & R wrist extension to 45 degrees or more in order to engage in functional self care tasks Boardinghouse Keeper Goal 2: Pt to increase R RD to 20 degrees & R UD to 25 degrees or more to engage in functional self care tasks Snf Goal 3: Pt to increase R supination to 70 degrees or more & pronation to 75 degrees or more to engage in functional self care tasks Boardinghouse Keeper Goal 4: Pt to increase index MCP to 75 degrees or more; middle MCP to 65 degrees or more;Ring MCP to 45 degrees or more; & pinky MCP to 45 degrees or more to engage in functional self care tasks Boardinghouse Keeper Goal 5: Pt to increase index PIP to 65 degrees or more; middle PIP to 60 degrees or more;ring PIP to 70 degrees or more & pinky PIP to 55 degrees or more to engage in functional self care tasks Boardinghouse Keeper Goal 6: Pt to increase index DIP to 30 degrees or more; middle DIP to 35 degrees or more;ring DIP to 35 degrees or more & pinky DIP to 35 degrees or more to engage in functional self care tasks Boardinghouse Keeper Goal 7: Pt to complete R hand 9 hole peg test in 30 seconds or less to engage in functional fine motor tasks Time In: 835 Time Out: 915 Timed Coded Minutes: 40 Total Treatment Time: 40 SUKHJINDER Randhawa, OTR/L Date: 09/21/2021 documented in this encounterBON [facility] ESTRELLA MEDICAL CENTERAlea Phone: [phone] History of Present illness Narrative* Mary Brizuela OT - 09/19/2021 9:00 AM EDT Images from the original note were not included. [facility] Outpatient Occupational Therapy Daily Note Date: 09/19/2021 Patient: Bret Yap : 1940 Onset Date: 09/04/21 Total # of Visits Approved: 18 Per Physician Order Total # of Visits to Date: 6 No Show: 0 Canceled Appointment: 0 Pre-Treament Pain: 0 Subjective: Pt states he can now brush his teeth & eat better with his R hand. States he has follow up w/ doctor on October 10 Assessment Assessment: Initiated paraffin bath this date & continued w/ STM/scar massage, and all ROM exercises well. Continues to tolerate A/PROM exercises well. Assessed edema at MCPs, pt currently at 20.8cm of edema which is a decrease from initial evaluation. Will continue to address goals and progress patient as tolerated. Prognosis: Fair Post Treatment Pain: 0 Goals Short Term Goals Time Frame for Short term goals: 3 weeks Short Term Goal 1: Pt to be compliant w/ compression glove wear schedule Short Term Goal 2: Pt to be independent with HEP Short Term Goal 3: Pt to reduce R handed MCP edema to 10cm or less in order to make fist Short Term Goal 4: Pt to touch all digits to DPC of R hand in order to make a fist STG Goal 4 Status:: In progress Snf Goals Time Frame for FPC goals : 6 weeks (10/09/2021) Snf Goal 1: Pt to increase R wrist flexion to 25 degrees or more & R wrist extension to 45 degrees or more in order to engage in functional self care tasks Snf Goal 2: Pt to increase R RD to 20 degrees & R UD to 25 degrees or more to engage in functional self care tasks Boardinghouse Keeper Goal 3: Pt to increase R supination to 70 degrees or more & pronation to 75 degrees or more to engage in functional self care tasks Snf Goal 4: Pt to increase index MCP to 75 degrees or more; middle MCP to 65 degrees or more;Ring MCP to 45 degrees or more; & pinky MCP to 45 degrees or more to engage in functional self care tasks Snf Goal 5: Pt to increase index PIP to 65 degrees or more; middle PIP to 60 degrees or more;ring PIP to 70 degrees or more & pinky PIP to 55 degrees or more to engage in functional self care tasks Snf Goal 6: Pt to increase index DIP to 30 degrees or more; middle DIP to 35 degrees or more;ring DIP to 35 degrees or more & pinky DIP to 35 degrees or more to engage in functional self care tasks Boardinghouse Keeper Goal 7: Pt to complete R hand 9 hole peg test in 30 seconds or less to engage in functional fine motor tasks Time In: 900 Time Out: 945 Timed Coded Minutes: 45 Total Treatment Time: 45 SUKHJINDER Randhawa, OTR/L Date: 09/19/2021 documented in this encounterB[facility] [place] Phone: [phone] History of Present illness Narrative* Mary Brizuela OT - 09/12/2021 2:00 PM EDT Images from the original note were not included. [facility] Outpatient Occupational Therapy Daily Note Date: 09/12/2021 Patient: Bret Yap : 1940 Referring Provider (secondary): Isrrael Greene MD Diagnosis: Rupture of extensor tendon of R ring & little finger Onset Date: 09/04/21 OT Insurance Information: Medicare- 36 visits approved; will just need an updated POC after visits completed. Total # of Visits Approved: 18 Per Physician Order Canceled Appointment: 0 Comments: strain of extensor muscle, fascia & tendon of R middle, ring & little finger at wrist & hand level- Per physician's order *Active passive ROM, edema control & modalities as appropriate* Pre-Treament Pain: 0 Subjective: Pt states he continues to do HEP but states I dont know if I'm gaining anything . Pt states he thinks he returns to see his ortho on October 04. Assessment Assessment: Tolerates heat, STM/scar massage & ROM exercises well. Note that pt unable to actively extend fingers to lift off table surface. Requires AAROM to complete exercise. Will continue to address this in future sessions. Plan to continue per POC as pt tolerates. Post Treatment Pain: 0-states it feels tired Goals Short Term Goals Time Frame for Short term goals: 3 weeks (09/18/2021) Short Term Goal 1: Pt to be compliant w/ compression glove wear schedule STG Goal 1 Status:: Met Short Term Goal 2: Pt to be independent with HEP STG Goal 2 Status:: Met Short Term Goal 3: Pt to reduce R handed MCP edema to 10cm or less in order to make fist STG Goal 3 Status:: Met Short Term Goal 4: Pt to touch all digits to DPC of R hand in order to make a fist STG Goal 4 Status:: In progress Snf Goals Time Frame for FPC goals : 6 weeks (10/09/2021) Snf Goal 1: Pt to increase R wrist flexion to 25 degrees or more & R wrist extension to 45 degrees or more in order to engage in functional self care tasks Snf Goal 2: Pt to increase R RD to 20 degrees & R UD to 25 degrees or more to engage in functional self care tasks Boardinghouse Keeper Goal 3: Pt to increase R supination to 70 degrees or more & pronation to 75 degrees or more to engage in functional self care tasks Boardinghouse Keeper Goal 4: Pt to increase index MCP to 75 degrees or more; middle MCP to 65 degrees or more;Ring MCP to 45 degrees or more; & pinky MCP to 45 degrees or more to engage in functional self care tasks Snf Goal 5: Pt to increase index PIP to 65 degrees or more; middle PIP to 60 degrees or more;ring PIP to 70 degrees or more & pinky PIP to 55 degrees or more to engage in functional self care tasks Boardinghouse Keeper Goal 6: Pt to increase index DIP to 30 degrees or more; middle DIP to 35 degrees or more;ring DIP to 35 degrees or more & pinky DIP to 35 degrees or more to engage in functional self care tasks Snf Goal 7: Pt to complete R hand 9 hole peg test in 30 seconds or less to engage in functional fine motor tasks Time In: 1400 Time Out: 1445 Timed Coded Minutes: 40 Total Treatment Time: 45 SUKHJINDER Randhawa, OTR/L Date: 09/12/2021 documented in this encounterBON [facility]RELL[facility] CENTERSaved[facility] [place] Phone: [phone] History of Present illness Narrative* Mary Brizuela OT - 09/10/2021 9:15 AM EDT Images from the original note were not included. [facility] Outpatient Occupational Therapy Daily Note Date: 09/10/2021 Patient: Bret Yap : 1940 Referring Provider (secondary): Isrrael Greene MD Diagnosis: Rupture of extensor tendon of R ring & little finger OT Insurance Information: Medicare- 36 visits approved; will just need an updated POC after [id number] visits completed. Total # of Visits Approved: 18 Per Physician Order Total # of Visits to Date: 4 No Show: 0 Canceled Appointment: 0 Comments: strain of extensor muscle, fascia & tendon of R middle, ring & little finger at wrist & hand level- Per physician's order *Active passive ROM, edema control & modalities as appropriate* Pre-Treament Pain: 0 Subjective: Pt states if he doesn't move the hand it feels fine. Also states he feels it is gettingbetter. Assessment Assessment: Tolerates heat, STM/scar massage & PROM to R wrist & digits this date. States his HEP is going well. Plan to continue per POC as pt tolerates. Prognosis: Fair 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 for FPC goals : 6 weeks (10/09/2021) Boardinghouse Keeper Goal 1: Pt to increase R wrist flexion to 25 degrees or more & R wrist extension to 45 degrees or more in order to engage in functional self care tasks Snf Goal 2: Pt to increase R RD to 20 degrees & R UD to 25 degrees or more to engage in functional self care tasks Boardinghouse Keeper Goal 3: Pt to increase R supination to 70 degrees or more & pronation to 75 degrees or more to engage in functional self care tasks Snf Goal 4: Pt to increase index MCP to 75 degrees or more; middle MCP to 65 degrees or more;Ring MCP to 45 degrees or more; & pinky MCP to 45 degrees or more to engage in functional self care tasks Boardinghouse Keeper Goal 5: Pt to increase index PIP to 65 degrees or more; middle PIP to 60 degrees or more;ring PIP to 70 degrees or more & pinky PIP to 55 degrees or more to engage in functional self care tasks Snf Goal 6: Pt to increase index DIP to 30 degrees or more; middle DIP to 35 degrees or more;ring DIP to 35 degrees or more & pinky DIP to 35 degrees or more to engage in functional self care tasks Snf Goal 7: Pt to complete R hand 9 hole peg test in 30 seconds or less to engage in functional fine motor tasks Time In: 915 Time Out: 1000 Timed Coded Minutes: 40 Total Treatment Time: 45 SUKHJINDER Randhawa, OTR/L Date: 09/10/2021 documented in this encounterBON BANNER ESTRELLA MEDICAL CENTERAlea Phone: [phone] History of Present illness Narrative* Mary Brizuela OT - 09/05/2021 10:15 AM EDT Images from the original note were not included. [facility] Outpatient Occupational Therapy Daily Note Date: 09/05/2021 Patient: Bret Yap : 1940 Referring Provider (secondary): Isrrael Greene MD Diagnosis: Rupture of extensor tendon of R ring & little finger Onset Date: 09/04/21 OT Insurance Information: Medicare- 36 visits approved; will just need an updated POC after visits completed. Total # of Visits Approved: 18 Per Physician Order Total # of Visits to Date: 2 No Show: 0 Canceled Appointment: 0 Pre-Treament Pain: 0 Subjective: Pt states the hand feels comfortable and the compression glove is fitting well. Assessment Assessment: Initiated heat, STM/scar massage & PROM to R wrist & digits this date. Pt tolerated well. Provided pt with HEP for reduction of edema & improvement of ROM at digits & wrist. Plan to continue per POC as pt tolerates. 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 for computer terminal operator goals : 6 weeks (10/09/2021) Snf Goal 1: Pt to increase R wrist flexion to 25 degrees or more & R wrist extension to 45 degrees or more in order to engage in functional self care tasks Snf Goal 2: Pt to increase R RD to 20 degrees & R UD to 25 degrees or more to engage in functional self care tasks Boardinghouse Keeper Goal 3: Pt to increase R supination to 70 degrees or more & pronation to 75 degrees or more to engage in functional self care tasks Boardinghouse Keeper Goal 4: Pt to increase index MCP to 75 degrees or more; middle MCP to 65 degrees or more;Ring MCP to 45 degrees or more; & pinky MCP to 45 degrees or more to engage in functional self care tasks Snf Goal 5: Pt to increase index PIP to 65 degrees or more; middle PIP to 60 degrees or more;ring PIP to 70 degrees or more & pinky PIP to 55 degrees or more to engage in functional self care tasks Snf Goal 6: Pt to increase index DIP to 30 degrees or more; middle DIP to 35 degrees or more;ring DIP to 35 degrees or more & pinky DIP to 35 degrees or more to engage in functional self care tasks Snf Goal 7: Pt to complete R hand 9 hole peg test in 30 seconds or less to engage in functional fine motor tasks Time In: 1015 Time Out: 1100 Timed Coded Minutes: 40 Total Treatment Time: 45 SUKHJINDER Randhawa, OTR/L Date: 09/05/2021 documented in this encounterBON [facility] Phone: [phone] History of Present illness Narrative* Mary Brizuela OT - 09/04/2021 9:30 AM EDT Images from the original note were not included. [facility] Outpatient Occupational Therapy Evaluation Date: 09/04/2021 Patient: Bret Yap : 1940 Referring Provider (secondary): Isrrael Greene MD Diagnosis: Rupture of extensor tendon of R ring & little finger Additional Pertinent Hx: Pt had rupture of extensor tendon of R middle, ring & little finger. Pt had surgery to fix ruptured tendons of R hand, approx 7 weeks ago. Pt states now he has a lot of swelling and stiffness at wrist & digits of R hand. States surgeon took a tendon from R index finger and reattached it to RMF. States priro to surgery he was unable to raise/extend RMF, RRF, & RLF. Treatment Diagnosis: Tendon repair surgery of R middle, ring & pinky finger Onset Date: 09/04/21 OT Insurance Information: Medicare- 36 visits approved; will just need an updated POC after visits completed. Total # of Visits Approved: 18 Per Physician Order Total # of Visits to Date: 1 No Show: 0 Canceled Appointment: 0 Subjective Hand Dominance: Right Comments: strain of extensor muscle, fascia & tendon of R middle, ring & little finger at wrist & hand level- Per physician's order *Active passive ROM, edema control & modalities as appropriate* Pain Assessment Pain Level: 0 Patient's Stated Pain Goal: 0 - No pain Pain Location: Wrist Pain Orientation: Right Learning Does the patient/guardian have any barriers to learning?: No barriers Will there be a co-learner?: No What is the preferred language of the patient/guardian?: [place] Is an export traffic department manager required?: No How does the patient/guardian prefer to learn new concepts?: Listening,Demonstration Objective Fine Motor Skills Left 9-Hole Peg Test: Functional Left 9 Hole Peg Test Time (secs): 30.1 Right 9 Hole Peg Test Time (secs): 38.9 LUE Edema - Circumference (cm) LUE Edema Present?: Yes Metacarpals: 21.7 cm of edema at MCPs RUE Edema - Circumference (cm) RUE Edema Present?: Yes (21.7cm at MCPs) LUE AROM (degrees) L Forearm Pron 0-90: WFL L Forearm Supination 0-90: WFL L Wrist Flexion 0-80: 0-55 L Wrist Extension 0-70: 0-65 L Wrist Radial Deviation 0-20: 0-20 L Wrist Ulnar Deviation 0-45: 0-35 Left Hand AROM (degrees) Left Hand General AROM: Pt can make complete fist with all digits touching DPC; can complete thumb opposition to all digits L Index MCP 0-90: 0-75 L Index PIP 0-100: 0-90 L Index DIP 0-70: 0-30 L Long MCP 0-90: 0-85 L Long PIP 0-100: 0-85 L Long DIP 0-70: 0-55 L Ring MCP 0-90: 0-90 L Ring PIP 0-100: 0-87 L Ring DIP 0-70: 0-45 L Little MCP 0-90: 0-85 L Little PIP 0-100: 0-85 L Little DIP 0-70: 0-50 RUE AROM (degrees) R Forearm Pron 0-90: 0-65 R Forearm Supination 0-90: 0-60 R Wrist Flexion 0-80: 0-15 (pain w/ mvmt) R Wrist Extension 0-70: 0-30 (pain w/ mvmt) R Wrist Radial Deviation 0-20: 0-10 (pain w/ mvmt) R Wrist Ulnar Deviation 0-45: 0-10 (pain with mvmt) Right Hand AROM (degrees) Right Hand General AROM: all digits approx 6cm from touching DPC (unable to make full fist); can complete thumb opposition to all digits R Index MCP 0-90: 0-60 R Index PIP 0-100: 0-55 R Index DIP 0-70: 0-15 R Long MCP 0-90: 0-55 R Long PIP 0-100: 0-50 R Long DIP 0-70: 0-25 R Ring MCP 0-90: 0-35 R Ring PIP 0-100: 0-60 R Ring DIP 0-70: 0-25 R Little MCP 0-90: 0-35 R Little PIP 0-100: 0-45 R Little DIP 0-70: 0-23 Left Hand Strength - Single End Sewer (lbs) Handle Setting 2: 53, 54, 59= 55.3lbs average L lateral pinch: 18.17lbs L esparza pinch: 15.83lbs L tip pinch: 13.67lbs ADL Feeding: Increased time to complete,Setup UE Bathing: Setup UE Bathing Skilled Clinical Factors: uses L hand more frequently than R hand now UE Dressing: Independent LE Dressing: Independent Toileting: Independent Assessment Performance deficits / Impairments: Decreased functional mobility ,Decreased coordination,DecreasedROM,Decreased strength,Decreased high-level IADLs,Decreased fine motor control Assessment: Pt referred to outpt OT s/p tendon repair surgery on R middle, ring & pinky fingers. Pt presents with significant edema at MCPs of R hand & substantial ROM deficits at digits & wrist of R hand. Pt provided w/ compression glove to manage edema. Pt would benefit from OT intervention to address the above mentioned deficits. 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 terminal operator goals : 6 weeks (10/09/2021) Boardinghouse Keeper Goal 1: Pt to increase R wrist flexion to 25 degrees or more & R wrist extension to 45 degrees or more in order to engage in functional self care tasks Snf Goal 2: Pt to increase R RD to 20 degrees & R UD to 25 degrees or more to engage in functional self care tasks Boardinghouse Keeper Goal 3: Pt to increase R supination to 70 degrees or more & pronation to 75 degrees or more to engage in functional self care tasks Snf Goal 4: Pt to increase index MCP to 75 degrees or more; middle MCP to 65 degrees or more;Ring MCP to 45 degrees or more; & pinky MCP to 45 degrees or more to engage in functional self care tasks Snf Goal 5: Pt to increase index PIP to 65 degrees or more; middle PIP to 60 degrees or more;ring PIP to 70 degrees or more & pinky PIP to 55 degrees or more to engage in functional self care tasks Snf Goal 6: Pt to increase index DIP to 30 degrees or more; middle DIP to 35 degrees or more;ring DIP to 35 degrees or more & pinky DIP to 35 degrees or more to engage in functional self care tasks Boardinghouse Keeper Goal 7: Pt to complete R hand 9 hole peg test in 30 seconds or less to engage in functional fine motor tasks Time In: 937 Time Out: 1037 Timed Coded Minutes: 0 Total Treatment Time: 60 SUKHJINDER Randhawa, OTR/Brian 09/04/2021 documented in this encounterBON BAN[facility] CENTERAlea Phone: [phone] 330-115804-18-2022 Miscellaneous Notes* Telephone Encounter - Miranda Holland Pss - 07/16/2021 3:03 PM EDT Called Lili Swain spoke with Mary. She states they have patient scheduled with Dr Amaya on 10/04 @1:30. Miranda Holland Pss * Telephone Encounter - Miranda Holland Pss - 07/12/2021 1:38 PM EDT Called Lili Swain spoke with Whit. She states when they spoke with patient they are scheduling out to August and patient refused to schedule an appointment at this time. Whit states patient said he would call around to get in somewhere else. Per Whit their office will be calling patient back tomorrow regarding scheduling an appointment with their office. Miranda Carson * Telephone Encounter - Miranda Carson - 07/05/2021 2:12 PM EDT Called Lili Swain spoke with Mary. She states they have received referral and their logistics coordinator will be calling patient soon to schedule. Miranda Carson * Telephone Encounter - Miranda Carson - 07/04/2021 10:11 AM EDT Called Lili Swain spoke with Mary. She states she has not yet gone thru all of their faxes at this time and states for me to call back to check on status of this referral. Miranda Carson * Telephone Encounter - Prabha [facility] - 07/02/2021 1:06 PM EDT Records faxed. * Telephone Encounter - Miranda Holland [facility] - 07/02/2021 12:46 PM EDT Dominique: Information ready for you. Miranda Carson * Telephone Encounter - Jatinder Krause - 07/02/2021 11:55 AM EDT See GI for scopes Patient would prefer to stay locally. Dominique/Ty: Can you please refer patient to [facility]? Thanks! Jatinder Krause documented in this encounterProtestant Hospital04-15-2022 Miscellaneous Notes* Telephone Encounter - Sunshine Riddle RN - 07/13/2021 3:12 PM EDT Pt calls and leaves a voicemail stating he isn't able to get in with a local GI doctor until late August and is asking if this is okay. Reviewed previous telephone encounter and Dr Manzanares is ok with this. Pt notified. Sunshine Riddle RN documented in this encounterProtestant Hospital04-08-2022 Miscellaneous Notes* Telephone Encounter - Ketan Manzanares MD - 07/06/2021 4:55 PM EDT End of August is fine. No worries. JESSICA Saha * Telephone Encounter - Ruben Tellez RN - 07/06/2021 4:28 PM EDT SJK: Pt is not able to get in to see GI until end of August. He would like to know if that's ok or ifhe needs to try somewhere else. Ruben Tellez RN * Telephone Encounter - Ruben Tellez RN - 07/06/2021 2:49 PM EDT Returned call to pt. No answer. Left message informing pt of Dr Manzanares's response and to return callif any questions/concerns. Ruben Tellez RN * Telephone Encounter - Ketan Manzanares MD - 07/06/2021 2:05 PM EDT Please proceed with GI referral for scopes. His other labs for anemia were negative. He has MGUS aswell that I discussed with him at last visit. Happy to talk to him again when he comes for a followup on 07-17-21. Thanks, LIORK * Telephone Encounter - Ruben Tellez RN - 07/06/2021 1:33 PM EDT Received message from pt wanting to know lab results and if colonoscopy was still needed. SJK: Any message for pt regarding lab results? Proceed with GI referral? Ruben Tellez RN documented in this encounterProtestant Hospital04-04-2022 NoteHNO ID: [id number] Author: Ketan Manzanares MD Service: ? Author Type: Physician Type: Progress Notes Filed: 07/02/2021 12:15 PM Note Text: HEMATOLOGY INITIAL CONSULTATION July 02, 2021 REFERRAL REQUESTED BY: Faizan Bragg PCP and other physicians involved in patient's care: Faizan Bragg (PCP) REASON FOR CONSULTATION: Anemia HEMATOLOGICAL HISTORY: ? No previous hematological evaluation. No previous transfusion history. Family history noncontributory. Previous colonoscopies in 2006, 2011 and 2016 with evidence of polyp that was removed. EGD in 2014 showed Alvares's esophagus. Pertinent medications of interest include meloxicam (historical; took in 2020) , allopurinol and rivaroxaban. ? September 2020, hemoglobin 10.1 g/dL with MCV 90. Ferritin in November 2020 was 40 with low iron saturation. Patient was started on oral iron with normalization of hemoglobin. ? 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 Overall, the patient feels well and is asymptomatic. He does not endorse any complaints today. He has been on oral iron for the last 6 months that was started for iron deficiency anemia . In September 2020, hemoglobin was 10.1 g/dL with normal WBC and platelets. MCV was 90. Nutritional work-up in November 2020 showed normal B12 and folate, ferritin 40, iron 48, TIBC 374, saturation 13%. Sometime around this time, patient was started on oral iron with improvement in hemoglobin. Patient does not recollect being symptomatic secondary to anemia. He denies any side effects with use of oral iron. He denies any evidence of debbie GI or bleeding. No reports of melena. He does have a history of Alvares's esophagus and occasional heartburn for which she takes a PPI. He previously used meloxicam for chronic low back pain in 2020 but cannot recollect when he stopped it. Last colonoscopy in 2016 and EGD in 2014. 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 Patient reports no fevers, chills, night sweats, weight loss or kidney issues. No pathological fractures. He had anemia which is resolving with oral iron supplementation. ROS is negative except that mentioned in HPI PAST MEDICAL SURGICAL FAMILY AND SOCIAL HISTORY: He has a medical history of ?Atrial fibrillation, on rivaroxaban ?Iron deficiency anemia ?Monoclonal gammopathy of undetermined significance ?Eczema ?Alvares's esophagus ?Gout ?Sciatica ?Right hip and right elbow bursitis ?Lung nodule Previous surgeries include right ankle repair, right shoulder repair, low back surgery, tonsillectomy and cataract extraction. Family history not contributory. No substance abuse. He lives with his in [place], [place] MEDICATIONS AND ALLERGIES: Reviewed PHYSICAL EXAM BP 134/64 Pulse 65 Temp 36.2 ?C (97.2 ?F) (Temporal) Resp 16 Ht 190 cm (6' 2.8 ) Wt 94.7 kg (208 lb 12.8 oz) SpO2 99% BMI 26.24 kg/m? Head atraumatic, no pallor, icterus or lymphadenopathy, lungs clear to auscultation, heart sounds regular, abdomen soft without distension or organomegaly, neuro grossly non-focal, skin without rash, extremities without swelling LABORATORY, IMAGING AND PATHOLOGY 10-20-20 CBC with WBC 7.1, hemoglobin 10.1, MCV 90, platelets 259 12-08-20 CBC with WBC 5.6, hemoglobin 10.4, MCV 94, platelets 208 Normal B12 and folate, ferritin 40, iron 48, TIBC 374, saturation 13% (Care Everywhere) IgG lambda MGUS, 0.24 g/dL (Care Everywhere) 05-21-21 CBC with WBC 6.9, hemoglobin 11.7, MCV 97, platelets 235 Creatinine 1.25, LFTs normal 06-12-21 CBC with WBC 5.9, hemoglobin 12.2, MCV 97, platelets 222 Ferritin 70, B12 559 ASSESSMENT AND RECOMMENDATIONS 81 male with iron deficiency anemia and MGUS ? Iron deficiency anemia: This was based on a hemoglobin of 10.1 g/dL in September 2020 and a ferritin of 40 in November 2020. Patient is on oral iron and CBC from today shows resolution of anemia. There is no evidence of debbie GI or bleeding. I recommend the patient to continue oral iron supplementation and see GI for scopes. Patient has a history of a colonic polyp and Alvares's esophagus that will need follow-up. Patient was also on meloxicam in 2020 for chronic low back pain that he does not take anymore. Other labs to complete the anemia work-up are in process. ? MGUS: This was based on IgG lambda clone of 0.24 g/dL notable in the serum from November 2020. No albuminuria. There is no evidence of creatinine elevation, bone pain or systemic symptoms. No clinical suspicion of monoclonal gammopathy of clinical significance. I will repeat check SPEP and SIFE today. Further recommendations will be dependent on the results. Hold off on bone marrow biopsy for now. Ketan Manzanares MD I spent a total of 65 minutes on the date of the service which included preparing to see the patient, [id number] patient care, co (more content not included)...[facility]04-04-2022 History of Present illness Narrative* Ketan Manzanares MD - 07/02/2021 11:00 AM EDT HEMATOLOGY INITIAL CONSULTATION July 02, 2021 REFERRAL REQUESTED BY: Faizan Bragg PCP and other physicians involved in patient's care: Faizan Bragg (PCP) REASON FOR CONSULTATION: Anemia HEMATOLOGICAL HISTORY: No previous hematological evaluation. No previous transfusion history. Family history noncontributory. Previous colonoscopies in 2007, 2011 and 2016 with evidence of polyp that was removed. EGD in 2014 showed Alvares's esophagus. Pertinent medications of interest include meloxicam (historical; tookin 2020) , allopurinol and rivaroxaban. September 2020, hemoglobin 10.1 g/dL with MCV 90. Ferritin in November 2020 was 40 with low iron saturation. Patient was started on oral iron with normalization of hemoglobin. 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 Overall, the patient feels well and is asymptomatic. He does not endorse any complaints today. He has been on oral iron for the last 6 months that was started for iron deficiency anemia . In September 2020, hemoglobin was 10.1 g/dL with normal WBC and platelets. MCV was 90. Nutritional work-up in November 2020 showed normal B12 and folate, ferritin 40, iron 48, TIBC 374, saturation 13%. Sometime around this time, patient was started on oral iron with improvement in hemoglobin. Patient does not recollect being symptomatic secondary to anemia. He denies any side effects with use of oral iron.He denies any evidence of debbie GI or bleeding. No reports of melena. He does have a history of Alvares's esophagus and occasional heartburn for which she takes a PPI. He previously used meloxicamfor chronic low back pain in 2020 but cannot recollect when he stopped it. Last colonoscopy in 2016and EGD in 2014. 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 Patient reports no fevers, chills, night sweats, weight loss or kidney issues. No pathological fractures. He had anemia which is resolving with oral iron supplementation. ROS is negative except that mentioned in HPI PAST MEDICAL SURGICAL FAMILY AND SOCIAL HISTORY: He has a medical history of Atrial fibrillation, on rivaroxaban Iron deficiency anemia Monoclonal gammopathy of undetermined significance Eczema Alvares's esophagus Gout Sciatica Right hip and right elbow bursitis Lung nodule Previous surgeries include right ankle repair, right shoulder repair, low back surgery, tonsillectomy and cataract extraction. Family history not contributory. No substance abuse. He lives with his in [place], [place] MEDICATIONS AND ALLERGIES: Reviewed PHYSICAL EXAM BP 134/64 Pulse 65 Temp 36.2 C (97.2 F) (Temporal) Resp 16 Ht 190 cm (6' 2.8 ) Wt 94.7 kg(208 lb 12.8 oz) SpO2 99% BMI 26.24 kg/m Head atraumatic, no pallor, icterus or lymphadenopathy, lungs clear to auscultation, heart sounds regular, abdomen soft without distension or organomegaly, neuro grossly non-focal, skin without rash, extremities without swelling LABORATORY, IMAGING AND PATHOLOGY 10-20-20 CBC with WBC 7.1, hemoglobin 10.1, MCV 90, platelets 259 12-08-20 CBC with WBC 5.6, hemoglobin 10.4, MCV 94, platelets 208 Normal B12 and folate, ferritin 40, iron 48, TIBC 374, saturation 13% (Care Everywhere) IgG lambda MGUS, 0.24 g/dL (Care Everywhere) 05-21-21 CBC with WBC 6.9, hemoglobin 11.7, MCV 97, platelets 235 Creatinine 1.25, LFTs normal 06-12-21 CBC with WBC 5.9, hemoglobin 12.2, MCV 97, platelets 222 Ferritin 70, B12 559 ASSESSMENT AND RECOMMENDATIONS 81 male with iron deficiency anemia and MGUS Iron deficiency anemia: This was based on a hemoglobin of 10.1 g/dL in September 2020 and a ferritin of 40 in November 2020. Patient is on oral iron and CBC from today shows resolution of anemia. There is no evidence of debbie GI or bleeding. I recommend the patient to continue oral iron supplementation and see GI for scopes. Patient has a history of a colonic polyp and Alvares's esophagus that will need follow-up. Patient was also on meloxicam in 2020 for chronic low back pain that he does not take anymore. Other labs to complete the anemia work- up are in process. MGUS: This was based on IgG lambda clone of 0.24 g/dL notable in the serum from November 2020. No albuminuria. There is no evidence of creatinine elevation, bone pain or systemic symptoms. No clinical suspicion of monoclonal gammopathy of clinical significance. I will repeat check SPEP and SIFE today. Further recommendations will be dependent on the results. Hold off on bone marrow biopsy for now. Ketan Manzanares MD I spent a total of 65 minutes on the date of the service which included preparing to see the patient, [id number] patient care, completing clinical documentation, obtaining and/or reviewing separately obtained history, performing a medically appropriate examination, counseling and educating the pat ient/family/caregiver, ordering medications, tests, or procedures, independently interpreting results (not separately reported) and communicating results to the patient/family/caregiver. documented in this encounterProtestant Hospital05-20-2021 Physician Hospital Discharge summaryCLINICAL SUMMARY Please take this summary document to your follow up appointments. [facility] 08/17/20 13:08 [address] [place]. [address] PATIENT INFORMATION Name: BRET YAP Address: [address] [address] Age: 80 Years Phone: [phone] : 1940 12:[birth year] MRN: [id number] Sex: Male Race: White Ethnicity: Not Hispan/Lat Admitted From: Clinic or [facility] Medical Service: Orthopedic Surgery Nurse Unit/Bed: (CT) 2N 0216-01 Admit Date: 08/14/2020 08:28 PCP: Yemi DE LA PAZ , Faizan Waite PHYSICIANS INVOLVED WITH CARE Attending Physicians: Norman Michelle MD - Orthopaedic Surg Admitting Physician: Norman Michelle MD Orthopaedic Surg Primary Care Physician:Yemi DE LA PAZ , Fiazan Watie,[facility], - Consults: Logan DE LA PAZ , Abdifatah - Internal Medicine Kimmie DE LA PAZ , Kamran S - Internal Medicine Josh DE LA PAZ , Torrey E - Internal Medicine [facility], [facility] - Internal Medicine Problems Active Gout GERD - Gastro-esophageal reflux disease Abnormal EKG Allergies No Known Medication Allergies NKA Procedures Primary posterior fusion of lumbar spine (08/14/2020) MEASUREMENTS: Last Charted: Weight: 93.40 kg /205 lbs 15 oz ( 08/14/20 09:08:00 ) VITAL SIGNS: Last Charted: Pulse Rate: 92 BPM (08/17 08:28) Blood Pressure: 121/75 mm Hg (08/17 08:28) Pain Score: 0(08/17 11:36) CODE STATUS: Full Resuscitation Comment: Provide all therapy to prevent/treat cardiac or respiratory arrest. Last Bowel Movement: Date/Time: 08/17 11:37 Formed Stool X: 1 MENTAL STATUS: Level of Conciousness: Alert (08/17 11:30) Orientation: Oriented x 4 (08/17 11:30) MEDICATIONS ORDERED / RECOMMENDED TO BE CONTINUED for: BRET YAP allopurinol (allopurinol 300 mg oral tablet) 1 Tab(s) By Mouth once a day. am. calcium carbonate (OsCal 500) 2 Tab(s) By Mouth once a day. am. Freetext Medication Post-op script -Oxycodone. omeprazole (omeprazole 20 mg oral enteric coated capsule) 1 Capsule By Mouth once a day. am. rivaroxaban (Xarelto 20 mg oral tablet) 20 Milligram By Mouth once a day. MEDICATION CHANGE DETAILS NEW MEDICATIONS Other Medications Freetext Medication Post-op script -Oxycodone. Comment UPDATED MEDICATIONS None UNCHANGED MEDICATIONS Other Medications allopurinol (allopurinol 300 mg oral tablet) 1 Tab(s) By Mouth once a day. am. Comment calcium carbonate (OsCal 500) 2 Tab(s) By Mouth once a day. am. Comment omeprazole (omeprazole 20 mg oral enteric coated capsule) 1 Capsule By Mouth once a day. am. Comment rivaroxaban (Xarelto 20 mg oral tablet) 20 Milligram By Mouth once a day. Comment STOP TAKING THESE MEDICATIONS None DO NOT TAKE UNTIL YOU TALK TO YOUR DOCTOR None Inpatient Medication History (active at the time of summary): Do not administer these medications until re-evaluated by a provider at the next level of care. Rivaroxaban 10 mg Tab (Xarelto GEq) (Xarelto) 20 mg = 2 Tab, PO, Tab, w/dinner, x 30 Day(s), 08/16/20 17:00:00 EDT, Atrial Fibrillation Last Dose: 08/16/20 17:37:00 COMMENTS and SPECIAL INSTRUCTIONS: Initial dose should be taken at least 6 to 10 hours after surgery once hemostasis has been established. An epidural catheter should not be removed earlier than 18 hours after the last administration. The next dose is not to be administered earlier than 6 hours after the removal of the catheter. If traumatic puncture occurs, the administration is to be delayed for 24 hours. Rivaroxaban is not recommended while a patient is receiving neuraxial anesthesia. Stop rivaroxaban 3 days prior to epidural catheter insertion, 4 days if CRCL less than 30 ml/min. Wait 6 hours [24 hrs for traumatic puncture] after catheter removal to administer rivaroxaban. Bisacodyl 10 mg Suppos (Dulcolax GEq) (Dulcolax) 10 mg = 1 Suppos, Rectal, Suppos, Q12h,, x 30 Day(s), 08/15/20 16:01:00 EDT Last Dose: 08/17/20 09:16:00 Neostigmine 1 mg/mL Vial 10 mL (Prostigmin GEq) (neostigmine) 0.5 mg = 0.5 mL, Subcut, Inject, Q6h, x 30 Day(s), 08/15/20 16:01:00 EDT Last Dose: 08/17/20 11:23:00 Allopurinol 100 mg Tab (Zyloprim GEq) (allopurinol) 300 mg = 3 Tab, PO, Tab, Daily,, x 30 Day(s), 08/14/20 14:39:00 EDT Last Dose: 08/17/20 09:16:00 Pantoprazole 40 mg Tab EC (Protonix GEq) (pantoprazole) 40 mg = 1 Tab, PO, Tab EC, ac bkfst,, x 30 Day(s), 08/14/20 14:39:00 EDT Last Dose: 08/17/20 06:00:00 COMMENTS and SPECIAL INSTRUCTIONS: Do Not Chew, Crush Or Cut Tablet Docusate/Senna 50 mg/8.6 mg Tab (Senokot-S (more content not included)...[facility]05-20-2021 Hospital Progress notePatient: BRET YAP MRN: [id number] Age: 80 years Sex: Male : 1940 Associated Diagnoses: None Author: Kamran Burks MD Assessment Assessment Diagnosis: DDD (degenerative disc disease), lumbar ([id number] M51.36, Working, Medical). Plan DDD, s/p PLIF L3-S1 DVT prophylaxis per primary surgical SVC, Encourage Venous return exercises Home medications have been reviewed and continued post surgery. Pain Control - reports reasonably controlled at this point. States he is try to stay away some from use of oxycodone. States he last hadhis oxycodone yesterday. Continues on Tylenol. Continue current postop protocol BMI 28. Patient noted to be low risk for sleep apnea based upon sleep apnea assessment. Wean off oxygen as tolerated, stable respiratory status since surgery GERD - (K21.9) Chronic condition and present on admission. Controlled with home prescription medications, which have been reordered. Continue PPI/or H2 [place]. Denies any heartburn this morning. Osteopenia - (M61.0) -diagnosed via previous bone scan. On no specific pharmacologic medication. May resume calcium vitamin D upon discharge from hospital Cardiac arrhythmia. More recent diagnosis of atrial flutter. Underwent recent cardiology evaluation. Prior use of Xarelto which was held 5 days prior to surgery. Cardiology notation reviewed on paperchart record. Resume Xarelto post surgery when okay from the surgical standpoint. Again reviewed monitor overnight remains in sinus rhythm. Gout (M10.9) - Chronic condition and controlled on home prescription medications which have been reordered, Clinically quiescent. No recent flares reported. No acute symptoms reported Acute Blood loss with surgery - 750 EBL reported at the time of surgery. Acute Post Hemorrhagic Anemia (D62) on 07/2018. No labs today. Consistent with acute blood loss at the time of surgery based on review of current Hgb, preoperative Hgb, and surgical EBL. Tolerating well. No dizziness. Hemodynamically stable. No indication for transfusion. .Abdominal distention/ileus. Clinically still has not had bowel movement as of early this morning. Does have some bowel sounds but still little temp and headache. Continue with current regime including Dulcolax, neostigmine and full liquid diet. Yesterday had reported significant amount of gas but overnight states he is not had much. Denies abdominal pain this morning. Abdominal exam seems to be a little more distended this morning. KUB pending. Discussed with patient on ways of improving go motility including mobility such as walking as well as using oral chewing gum that may help improve gastric and GI motility. Discharge on hold until ileus resolves. Supervising Physician Comments Documentation By: Consulting Physician. Chief Complaint Postoperative Medical Care Postoperative Information Postoperative Follow Up Postoperative Follow Up: Day 3. Anesthesia Sheet Reviewed - Gen EBL -750 mL Dexamethasone given -10 mg noted Health Status Allergies Allergic Reactions (Selected) NKA No Known Medication Allergies Subjective Patient is resting in bed in NAD. Reports pain is reasonable today No c/o CP, SOB. Reports abdominal distention but states has not passed much in the way of gas overnight. Still no BM reported Denies N/V, otherwise, ROS has been reviewed and is stated below. Rates pain mild currently rating 3-4 Flatus: Some but not as much as yesterday morning Voiding: -Yes Family -none Ambulation -again 300 feet yesterday Review of Systems Constitutional: denies fever, chills no further dizziness Head/Neck: denies headache, neck pain Eye: denies eye pain, diplopia Ear/Nose/Mouth/Throat: denies sore throat, hearing issues Neurologic: no focal, denies new weakness Cardiovascular: denies chest pain, palpitations Respiratory: denies dyspnea, or cough Gastrointestinal: denies Nausea/Vomiting, reports abdomen little distended Genitourinary: denies Dysuria, frequency Skin: denies itching or rash. Objective Last Charted Vital Signs Temperature: 98.6 (08/17 05:38) Pulse: 93 (08/17 05:38) Respiration: 16 (08/17 05:38) BP: 101/65 (08/17 05:38) Activity: Awake (08/17 05:38) Pulse Ox: 95 (08/17 05:38) Oxygen Delivery: Nasal cannula (08/17 05:38) O2 Device Flow: 2 L/min Pain Score: 3 (08/17 02:20) EXAM: General - No Apparent Distress Skin - No Rash, Normal Turgor Eyes - Pupils Equal, No Scleral Icterus ENT - External Ears Normal, Oropharynx Clear Neck - Trachea Midline, No Goiter Cardiovascular - Regular Rate and Rhythm, No Peripheral Edema Respiratory - Clear to Auscultation, Normal Respiratory Effort GI appears little more distended today. Has somewhat higher pitched and phonetic bowel sounds but few normal bowel sounds intermixed. No tenderness to palpation. Musculoskeletal - No Cyanosis or Digital Clubbing No Calf Tenderness Neuro/Psych - A (more content not included)...[facility] 08-17-2020 Hospital Progress notePatient: BRET YAP MRN: (COL)- [id number] Age: 80 years Sex: Male : 1940 Associated Diagnoses: None Author: Kamran Burks MD Comments Was contacted by nursing staff that patient's spouse was in the room and would like to discuss situation. Upon arrival patient had just gotten back from the bathroom and according to the staff and patient he had a large formed bowel movement in addition to passing a large amount of gas. I had the opportunity to review the situation with patient and spouse at bedside. He did develop an ileus aftersurgery that has now responded to the appropriate treatment. He is feeling much better at this timeand denies any nausea vomiting or abdominal discomfort. Abdominal exam now appears to be soft without distention. Belly is doughy soft and he has now normal active sounding bowel sounds. Discussed with nurse at bedside as well and will advance his diet to regular. He should be able to be dischargedlittle later on today.. Patient states he is taking very little in the way of pain medication at this time. Last took oxycodone yesterday and would like to stick with Tylenol for now. He ambulated very well this morning on the hallway on a couple of occasions.[facility]05-19-2021 Hospital Progress notePatient: BRET YAP MRN: (COL)-[id number] Age: 80 years Sex: Male : 1940 Associated Diagnoses: None Author: Burks MD , Kamran S Comments Reviewed KUB from today. Does have findings suggestive of ileus with cecal diameter 7.5 cm however.Interestingly today's radiologist read no different compared to yesterday's KUB. However yesterday's KUB interpreted by the radiologist showed interpreted as severe colonic dilatation. However clinically patient is making headway passing large amount of flatus this morning with pretty benign abdominal exam with much less distention. We will continue on neostigmine, suppositories and clear liquid diet until actual formed [facility]05-19-2021 Hospital Progress notePatient: BRET YAP MRN: ([id number] Age: 80 years Sex: Male : 1940 Associated Diagnoses: None Author: Kamran Burks MD Assessment Assessment Diagnosis: DDD (degenerative disc disease), lumbar ([id number] M51.36, Working, Medical). Plan DDD, s/p PLIF L3-S1 DVT prophylaxis per primary surgical SVC, Encourage Venous return exercises Home medications have been reviewed and continued post surgery. Pain Control - continues to improve.Reports reasonable pain control this morning. BMI 28. Patient noted to be low risk for sleep apnea based upon sleep apnea assessment. Wean off O2this morning GERD - (K21.9) Chronic condition and present on admission. Controlled with home prescription medications, which have been reordered. Continue PPI/or H2 mad[place]. Denies reflux symptoms. Osteopenia - (M61.0) -diagnosed via previous bone scan. On no specific pharmacologic medication. May resume calcium vitamin D upon discharge from hospital Cardiac arrhythmia. More recent diagnosis of atrial flutter. Underwent recent cardiology evaluation. Prior use of Xarelto which was held 5 days prior to surgery. Resume post procedure when okay from the surgical standpoint. Cardiology notation reviewed on paper chart record. Resume Xarelto post surgery when okay from the surgical standpoint. Monitor reviewed overnight remains in sinus rhythm. Gout (M10.9) - Chronic condition and controlled on home prescription medications which have been reordered, Clinically quiescent. No recent flares reported. Postoperatively and will monitor while in hospital. Acute Blood loss with surgery - 750 EBL reported -tolerating okay this morning. Did have some issues with dizziness day of surgery with first PT.- Will follow clinically with supportive IV fluids andmonitor BP and u/o for now and monitor HBG serial as needed hemoglobin this morning is 11 postop day 2. Did receive 540 of Cell Saver and return Acute Post Hemorrhagic Anemia (D62) -hemoglobin 11 today. Consistent with acute blood loss at the time of surgery based on review of current Hgb, preoperative Hgb, and surgical EBL. Patient currentlywithout indications for transfusion but will require ongoing management while hospitalized including lab monitoring, intravenous fluids, and pulse oximetry with supplemental oxygen for RASaO2 less than 90%. .Abdominal distention postop day 1. KUB ordered findings consistent with ileus. Patient was placed on Dulcolax, neostigmine and clear liquid diet.. Patient reports significantly improving after passing lots of gas overnight. Denies abdominal pain this morning. Abdominal exam somewhat less distended, appears benign improved bowel sounds we will check follow-up KUB. Have added magnesium to labs Hold discharge for now due to ileus Supervising Physician Comments Documentation By: Consulting Physician. Chief Complaint Postoperative Medical Care Postoperative Information Postoperative Follow Up Postoperative Follow Up: Day 2. Anesthesia Sheet Reviewed - Gen EBL -750 mL Dexamethasone given -10 mg noted Health Status Allergies Allergic Reactions (Selected) NKA No Known Medication Allergies Subjective Patient is resting in bed in NAD. Reports pain is being controlled. No c/o CP, SOB. Reports abdominal distention improved this morning. I am passing a lot of gas Denies N/V, otherwise, ROS has been reviewed and is stated below. Rates pain -v rates 4 Flatus: yes Voiding: -Yes Family -none Ambulation - did well yesterday 300 feet Review of Systems Constitutional: denies fever, chills no further dizziness Head/Neck: denies headache, neck pain Eye: denies eye pain, diplopia Ear/Nose/Mouth/Throat: denies sore throat, hearing issues Neurologic: no focal, denies new weakness Cardiovascular: denies chest pain, palpitations Respiratory: denies dyspnea, or cough Gastrointestinal: denies Nausea/Vomiting, Genitourinary: denies Dysuria, frequency Skin: denies itching or rash. Objective Last Charted Vital Signs Temperature: 97.8 (08/16 05:41) Pulse: 88 (08/16 05:41) Respiration: 12 (08/16 05:41) BP: 109/69 (08/16 05:41) Activity: Awake (08/16 05:41) Pulse Ox: 98 (08/16 05:41) Oxygen Delivery: Room air (08/16 03:37) Pain Score: 3 (08/16 03:37) EXAM: General - No Apparent Distress, conversant looks great Skin - No Rash, Normal Turgor Eyes - Pupils Equal, No Scleral Icterus ENT - External Ears Normal, Oropharynx Clear Neck - Trachea Midline, No Goiter Cardiovascular - Regular Rate and Rhythm, No Peripheral Edema Respiratory - Clear to Auscultation, Normal Respiratory Effort GI -less distention, soft Nontender, fairly decent bowel sounds are present throughout. Musculoskeletal - No Cyanosis or Digital Clubbing No Calf Tenderness Neuro/Psych - A and Ox3, Appropriate mood and Affect Intake and Output (Previous 24Hrs) I and O Summary Begin date: 08/15 06:47 (more content not included)...[facility]05-18-2021 [facility] Progress notePatient: BRET YAP MRN: ([facility])-[id number] Age: 80 years Sex: Male : 1940 Associated Diagnoses: None Author: Kamran Burks MD Comments Notified by nursing staff the patient is somewhat of a firm distended abdomen and still reported noflatus. He did have a suppository and MOM and senna earlier. He refused MiraLAX as previously ordered day of surgery last evening. Will check KUB and [facility] Progress notePatient: BRET YAP MRN: ([facility])-[id number] Age: 80 years Sex: Male : 1940 Associated Diagnoses: None Author: Kamran Burks MD Assessment Assessment Diagnosis: DDD (degenerative disc disease), lumbar ([id number] M51.36, Working, Medical). Plan DDD, s/p PLIF L3-S1 DVT prophylaxis per primary surgical SVC, Encourage Venous return exercises Home medications have been reviewed and continued post surgery. Pain Control - reasonable and controlled on Meds Continue postop protocol. BMI 28. Patient noted to be low risk for sleep apnea based upon sleep apnea assessment. Wean off O2this morning GERD - (K21.9) Chronic condition and present on admission. Controlled with home prescription medications, which have been reordered. Continue PPI/or H2 [place]. Denies GI signs or symptoms this morning Osteopenia - (M61.0) -diagnosed via previous bone scan. On no specific pharmacologic medication. May resume calcium vitamin D upon discharge from hospital Cardiac arrhythmia. More recent diagnosis of atrial flutter. Underwent recent cardiology evaluation. Prior use of Xarelto which was held 5 days prior to surgery. Resume post procedure when okay from the surgical standpoint. Cardiology notation reviewed on paper chart record. Resume Xarelto post surgery when okay from the surgical standpoint. Stable on monitor overnight. Gout (M10.9) - Chronic condition and controlled on home prescription medications which have been reordered, Clinically quiescent. This patient is at risk for development of acute flare postoperatively and will monitor while in hospital. Acute Blood loss with surgery - 750 EBL reported -tolerating okay this morning. Did have some issues with dizziness day of surgery with first PT.- Will follow clinically with supportive IV fluids andmonitor BP and u/o for now and monitor HBG serial as needed hemoglobin this morning is 12 Did receive 540 of Cell Saver and return Disposition per primary surgical service. Possible discharge today if criteria met. Supervising Physician Comments Documentation By: Consulting Physician. Chief Complaint Postoperative Medical Care Postoperative Information Postoperative Follow Up Postoperative Follow Up: Day 1. Anesthesia Sheet Reviewed - Gen EBL -750 mL Dexamethasone given -10 mg noted Health Status Allergies Allergic Reactions (Selected) NKA No Known Medication Allergies Subjective Patient is resting in bed in NAD. Reports pain is being controlled. No c/o CP, SOB. Denies N/V, or abdominal pain, otherwise, ROS has been reviewed and is stated below. Rates pain -very mild currently rating to Flatus: yes Voiding: -Osullivan in place adequate urine output noted Family -none Ambulation -30 feet but had issues with dizziness day of surgery Review of Systems Constitutional: denies fever, chills Head/Neck: denies headache, neck pain Eye: denies eye pain, diplopia Ear/Nose/Mouth/Throat: denies sore throat, hearing issues Neurologic: no focal, denies new weakness Cardiovascular: denies chest pain, palpitations Respiratory: denies dyspnea, or cough Gastrointestinal: denies Nausea/Vomiting, abdominal pain. Genitourinary: denies Dysuria, frequency Skin: denies itching or rash. Objective Last Charted Vital Signs Temperature: 97.2 (08/15 04:33) Pulse: 77 (08/15 04:33) Respiration: 16 (08/15 04:33) BP: 127/77 (08/15 04:33) Activity: Awake (08/15 04:33) Pulse Ox: 99 (08/15 04:33) Oxygen Delivery: Nasal cannula (08/16 03:33) O2 Device Flow: 2 L/min Pain Score: 7 (08/16 03:17) EXAM: General - No Apparent Distress Skin - No Rash, Normal Turgor Eyes - Pupils Equal, No Scleral Icterus ENT - External Ears Normal, Oropharynx Clear Neck - Trachea Midline, No Goiter Cardiovascular - Regular Rate and Rhythm, No Peripheral Edema Respiratory - Clear to Auscultation, Normal Respiratory Effort GI - Soft Nontender, + BS, No Masses Palpated Musculoskeletal - No Cyanosis or Digital Clubbing No Calf Tenderness Neuro/Psych - A and Ox3, Appropriate mood and Affect Intake and Output (Previous 24Hrs) I and O Summary Begin date: 08/14 06:32 End date: 08/15 06:32 24 Hour Intake: 781.67 Output: 2515.00 Balance: -1733.33 Last BM: No BM Charted Results Review DATA SECTION Hbg: Labs - Last 36 hours (Max 2 / lab test) CHEMISTRY Sodium 132 (08/15 04:30) 139 (08/14 09:42) Potassium 4.7 (08/15 04:30) 4.2 (08/14 09:42) Chloride 100 (08/15 04:30) 104 (08/14 09:42) CO2 23 (08/15 04:30) 26 (08/14 09:42) Glucose 160 (08/15 04:30) 87 (08/14 09:42) Glucose POCT No result BUN 21 (08/15 04:30) 24 (08/14 09:42) Creatinine 1.01 (08/15 04:30) 1.03 (08/14 09:42) Calcium Total 8.9 (08/15 04:30) 9.7 (08/14 09:42) Magnesium No result HEMATOLOGY (more content not included)...[facility]05-17-2021 Hospital Progress notePatient: BRET YAP MRN: ([id number] Age: 80 years Sex: Male : 1940 Associated Diagnoses: None Author: Kimmie DE LA PAZ , Kamran Ingram Assessment Assessment Diagnosis: DDD (degenerative disc disease), lumbar (IAM19-SE M51.36, Working, Medical). Plan DDD, s/p PLIF L3-S1 DVT prophylaxis per primary surgical SVC, Encourage Venous return exercises Home medications have been reviewed and continued post surgery. Pain Control - reasonable and controlled on multimodality therapy including parenteral opioids. Continue postop protocol. BMI 28. Patient noted to be low risk for sleep apnea based upon sleep apnea assessment. GERD - (K21.9) Chronic condition and present on admission. Controlled with home prescription medications, which have been reordered. Continuation of PPI/or H2 madison to reduce risk of aspiration related complications. Osteopenia - (M61.0) -diagnosed via previous bone scan. On no specific pharmacologic medication. May resume calcium vitamin D upon discharge from hospital Cardiac arrhythmia. More recent diagnosis of atrial flutter. Underwent recent cardiology evaluation. Prior use of Xarelto which was held 5 days prior to surgery. Resume post procedure when okay from the surgical standpoint. Will monitor on telemetry post procedure. Cardiology notation reviewed on paper chart record. Resume Xarelto post surgery when okay from the surgical standpoint. Gout (M10.9) - Chronic condition and controlled on home prescription medications which have been reordered, Clinically quiescent. This patient is at risk for development of acute flare postoperatively and will monitor while in hospital. Acute Blood loss with surgery - 750 EBL reported - tolerating well early PACU - Will follow clinically with supportive IV fluids and monitor BP and u/o for now and monitor HBG serial as needed Did receive 540 of Cell Saver and return Supervising Physician Comments Documentation By: Consulting Physician. Chief Complaint Postoperative Medical Care Postoperative Information Postoperative Follow Up Postoperative Follow Up: Day 0. Anesthesia Sheet Reviewed - Gen SBP to upper 70s IVF -3 L U/O-Osullivan -250 mL EBL -750 mL Dexamethasone given -10 mg noted Telemetry in PACU - SR Discussed with BRIAR CUTTER Health Status Allergies Allergic Reactions (Selected) NKA No Known Medication Allergies Subjective Patient denies nausea, vomiting or abdominal pain. Denies Chest pain or sob in pacu. ROS negative otherwise as below Rates pain -9/10 high early PACU Flatus: N/A Voiding: Osullivan in place urine output noted Family - None, seen in PACU Ambulation - N/A seen in PACU Review of Systems Limited d/t GETT/pain medications- seen in PACU Neurologic: denies new focal weakness. Cardiovascular: denies chest pain. Respiratory: denies dyspnea. Gastrointestinal: denies abdominal pain. Objective Last Charted Vital Signs Temperature: 97.6 (08/14 09:00) Pulse: 67 (08/14 09:00) Respiration: 16 (08/14 09:00) BP: 123/66 (08/14 09:00) Pulse Ox: 98 (08/14 09:00) Oxygen Delivery: Room air (08/14 09:00) Pain Score: 6 (08/14 14:26) General - No Apparent Distress, appears uncomfortable, somnolent but arouses easily Skin - No Rash, Normal Turgor Eyes - Pupils Equal, Conjunctiva Clear ENT - External Ears Normal, Hearing Normal Neck - Trachea Midline, No TMG Cardiovascular - Regular Rate and Rhythm, No Murmurs, Gallops, or Rubs, No Peripheral Edema Respiratory - CTA, Normal Resp. Effort GI - Soft Nontender, Hypoactive early bowel Sounds, No Hepatosplenomegaly Musculoskeletal - Good DF/PF Bilaterally, No Calf Tenderness Neuro/Psych - Somnolent but arouses easily, and follows simple commands, Appropriate Mood and Affect Intake and Output (Previous 24Hrs) I and O Summary Begin date: 08/13 14:35 End date: 08/14 14:35 24 Hour Intake: 590.00 Output: 950.00 Balance: -360.00 Last BM: No BM Charted Results Review DATA SECTION Hbg: Labs - Last 36 hours (Max 2 / lab test) CHEMISTRY Sodium 139 (08/14 09:42) Potassium 4.2 (08/14 09:42) Chloride 104 (08/14 09:42) CO2 26 (08/14 09:42) Glucose 87 (08/14 09:42) Glucose POCT No result BUN 24 (08/14 09:42) Creatinine 1.03 (08/14 09:42) Calcium Total 9.7 (08/14 09:42) Magnesium No result HEMATOLOGY WBC No result RBC No result Hb No result Hematocrit No result Platelets No result MCV No result MCH No result RDW No result MCHC No result Neutrophil Ab No result Monocyte Ab No result Eosinophil Ab No result Basophil Ab No result Lymphocyte Ab No result OTHER LABS Est CrCl IBW (mL/min)-RX 67.61 mL/min (08/14 09:42) (more content not included)...[facility]05-17-2021 Anesthesiology Preoperative evaluation and management notePatient: BRET YAP MRN: (COL)- [id number] Age: 80 years Sex: Male : 1940 Associated Diagnoses: None Author: Jasmine DE LA PAZ , Chente Duque Comments no GI or cardiopulmonary sx. has been off xarelto for instructed period of time. Aflutter - sinus rhythm today. echo reviewed/cardiac clearance reviewed. labs/ekg reviewed. PONV risk factors: 1. Female ( ) 2. Hx of PONV ( ) 3. Hx of motion sickness ( ) 4. Non smoker ( x) 5. Opioids for post op pain ( x ) Preoperative Information Active Diagnosis Encounter for other preprocedural examination Planned Procedure L3-S1 posterior lumbar laminectomy and fusion with instrumentation Histories Past Medical History: Past Medical Hx No active or resolved past medical history items have been selected or recorded., Active Abnormal EKG - sent to Dr Vergara in [place], [place]. doctor told patient he is ok for surgery GERD - Gastro-esophageal reflux disease Gout , Cardiovascular, Respiratory, Renal, Endocrine, Neurological, Musculoskeletal, Gastrointestinal, Hematology Social History: Smoking Status: Never smoked How Often Do You Drink ..: Never (0) E-Cig/Vaped Last 90 Day..: No Surgical/Procedure History: Surgical/Procedure Hx No procedure history items have been selected or recorded. Anesthesia History: No previous anesthetic complications Review of Systems Ear/Nose/Mouth/Throat Respiratory: Negative. Cardiovascular: Negative. Gastrointestinal: Negative. Hematology/Lymphatics Endocrine Musculoskeletal Neurologic: Alert and oriented X4, lumbar back pain with intermittent pain radiating down right leginto right foot with occasional numbness of foot and crampy pain. Medications Allergies No Known Medication Allergies NKA All Medications Admission Med Reconciliation: Complete 08/11/20 06:24:04 by Prudencio PERKINS , Sarai Jeter Home Medications: omeprazole 20 mg = 1 Cap, PO, Daily,, am,, Each Last Dose: 08/14/20 05:30 Still taking, as prescribed calcium carbonate 2 Tab, PO, Daily,, am,, Each Last Dose: 08/13/20 00:00 Still taking, as prescribed allopurinol 300 mg = 1 Tab, PO, Daily,, Last Dose: 08/13/20 00:00 Still taking, as prescribed Inpatient Medications: Lidocaine 1% Inj 2 mL PF (Xylocaine GEq) 2 mg = 0.2 mL, IntraDermal, Inject, Pre-Procedure x 30 Day(s) , Comment: For IV Insertion Last Dose: Not Given Current IV Orders: Tranexamic Acid 100 mg/mL Vial 10 mL (Cyklokapron GEq) 1,000 mg = 10 mL, IV Push, Inject, Pre-Procedure x 30 Day(s) Last Dose: Not Given Comment: Anesthesia to administer upon induction if patient not able to receive oral dose CeFAZolin (RTU) 2 Gm, IVPB, Pre-Procedure x 30 Day(s) Last Dose: Not Given Lactated Ringers 1,000 mL 1,000 mL, 1,000 mL, 20 mL/hr, IV, Infusion, 90.88 kg, 2.17, m2 Last Dose: 08/14/20 09:51:00 Comment: Run at KVO Rate Physical Examination VS/Measurements: Last Charted Vital Signs Temperature: 97.6 (08/14 09:00) Pulse: 67 (08/14 09:00) Respiration: 16 (08/14 09:00) BP: 123/66 (08/14 09:00) Pulse Ox: 98 (08/14 09:00) Oxygen Delivery: Room air (08/14 09:00) Pain Score: 0 (08/14 09:32) , Measurements Height: 187.96 cm /74.00 in (Pt reported) (08/14/2020 09:08:00) Weight: 93.4 kg/ 205 lbs 14.6 oz (Actual) (08/14/2020 09:08:00) Body Surface Area: 2.21 m2 Body Mass Index: 26.44 . Mouth/Airway: Dental (from Forms) No dental information charted . Mallampati: Class 2. Dental status: partial upper. Neck: Full range of movement. Mouth: Mouth opening unrestricted. Jaw: Normal jaw. Respiratory: Right lung: Clear to auscultation. Left lung: Clear to auscultation. Cardiovascular: Rhythm: Regular. Results Review General results Laboratory Last 90 Days Chemistry 08/14/20 09:42, Sodium = 139 mMol/L 08/14/20 09:42, Potassium = 4.2 mMol/L 08/14/20 09:42, Chloride = 104 mMol/L 08/14/20 09:42, CO2 = 26 mMol/L 08/14/20 09:42, Glucose = 87 mg/dL 08/14/20 09:42, BUN = 24 mg/dL H 08/14/20 09:42, Creatinine = 1.03 mg/dL 08/14/20 09:42, Calcium Total = 9.7 mg/dL Hematology 07/25/20 11:29, WBC = 6.8 thou/mcL 07/25/20 11:29, RBC = 4.16 X(10)6/mcL 07/25/20 11:29, Hb = 13.2 gm/dL 07/25/20 11:29, Hematocrit = 39.5 % 07/25/20 11:29, Platelets = 261 thou/mcL 07/25/20 11:29, MCV = 94.8 FL 07/25/20 11:29, MCH = 31.6 Picograms 07/25/20 11:29, RDW = 13.9 % 07/25/20 11:29, MCHC = 33.3 gm/dL 07/25/20 11:29, Neutrophil Ab = 4.6 thou/mcL 07/25/20 11:29, Monocyte Ab = 0.8 thou/mcL 07/25/20 11:29, Eosinophil Ab = 0.1 thou/mcL 07/25/20 11:29, Basophil Ab = 0.1 thou/mcL 07/25/20 11:29, Lymphocyte Ab = 1.2 thou/mcL Other Labs 07/25/20 11:29, Diff Method = AUTOMATED DIFFERENTIAL 07/25/20 11:29, Neutrophil Percent = 67.6 % 07/25/20 11:29, Lymphocyte Percent = 17.6 % 07/25/20 11:29, Monocyte Percent = 12.4 % 07/25/20 11:29, Eosinophil Percent = 1.3 % 07/25/20 11:29, Basophil (more content not included)...[facility]05-11-2021 History of Present illness Narrative* Divina Garcia, [facility] - 08/08/2020 9:30 AM EDT The patient was educated on the use of a holter monitor. The patient's comprehension was high. The patient was able to verbalize recall. The patient was instructed on how and when to return the monitor. documented in this encounter[employer] Phone: evaluation note* Diagnosis Atrioventricular septal defect (AVSD) Ventricular septal defect Aortic valve stenosis, etiology of cardiac valve disease unspecified Atrial flutter, unspecified type (HCC) Abnormal EKG Nonspecific abnormal electrocardiogram (ECG) (EKG) Encounter for lipid screening for cardiovascular disease Vitamin D deficiency Unspecified vitamin D deficiency documented in this encounter [employer] Phone: evaluation note* Diagnosis Abnormal EKG Nonspecific abnormal electrocardiogram (ECG) (EKG) Pre-op evaluation Preoperative examination, unspecified Encounter for lipid screening for cardiovascular disease Fatigue, unspecified type documented in this encounter [employer] Phone: evaluation note* Diagnosis Atrioventricular septal defect (AVSD) Ventricular septal defect Aortic valve stenosis, etiology of cardiac valve disease unspecified documented in this encounter [employer] Phone: evaluation note* Diagnosis Vasculitis (HCC)- Primary Arteritis, unspecified Essential hypertension Unspecified essential hypertension Peripheral edema Edema Chronic obstructive pulmonary disease, unspecified COPD type (HCC) documented in this encounter [employer] Phone: evaluation note* Diagnosis Atrioventricular septal defect (AVSD) Ventricular septal defect Aortic valve stenosis, etiology of cardiac valve disease unspecified Atrial flutter, unspecified type (HCC) Abnormal EKG Nonspecific abnormal electrocardiogram (ECG) (EKG) Encounter for lipid screening for cardiovascular disease Vitamin D deficiency Unspecified vitamin D deficiency Fatigue, unspecified type documented in this encounter [employer] Phone: evaluation note* Diagnosis Abnormal EKG Nonspecific abnormal electrocardiogram (ECG) (EKG) documented in this encounter [employer] Phone: evaluation note* Diagnosis Abnormal EKG Nonspecific abnormal electrocardiogram (ECG) (EKG) documented in this encounter [employer] Phone: evaluation note* Diagnosis Fatigue, unspecified type Leg edema Edema Discoloration of skin of lower leg Other symptoms involving skin and integumentary tissues documented in this encounter [employer] Phone: [email or web address] note* Diagnosis Normocytic anemia- Primary Anemia, unspecified MGUS (monoclonal gammopathy of unknown significance) Monoclonal paraproteinemia [facility] Vitamin D deficiency Unspecified vitamin D deficiency Encounter for lipid screening for cardiovascular disease Atrial flutter, unspecified type (HCC) documented in this encounter [facility] [employer] Work Phone: evaluation noteNo assessment information [facility] Work Phone: Evaluation note* Diagnosis Suspected COVID-19 virus infection Cough Runny nose Other diseases of nasal cavity and sinuses documented in this encounter [facility] [employer] Work Phone: [email or web address] noteNo InformationN[facility] [employer] Other Evaluation note* Diagnosis Atrial flutter, unspecified type (HCC) Vitamin D deficiency Unspecified vitamin D deficiency Encounter for lipid screening for cardiovascular disease Aortic valve stenosis, etiology of cardiac valve disease unspecified Colon wall thickening Other specified disorder of intestines documented in this encounter [employer] Work Phone: [email or web address] note* Diagnosis Atrial flutter, unspecified type (HCC) Vitamin D deficiency Unspecified vitamin D deficiency Encounter for lipid screening for cardiovascular disease Aortic valve stenosis, etiology of cardiac valve disease unspecified Fatigue, unspecified type Colon wall thickening Other specified disorder of intestines documented in this encounter [facility] [employer] Work Phone: [email or web address] note* Diagnosis Atrial flutter, unspecified type (HCC) Vitamin D deficiency Unspecified vitamin D deficiency Colon wall thickening Other specified disorder of intestines documented in this encounter [facility] [employer] Work Phone: [email or web address] note* Diagnosis Onset Date Resolution Status Essential (primary) hypertension acute Screening PSA (prostate specific antigen) [facility] Work Phone: Evaluation note* Diagnosis Shortness of breath documented in this encounter [facility]* Diagnosis Atrial flutter, unspecified type (HCC) Vitamin D deficiency Unspecified vitamin D deficiency Encounter for lipid screening for cardiovascular disease Fatigue, unspecified type documented in this encounter [facility] [employer] HEALTHEvaluation note* Diagnosis Onset Date Resolution Status Essential (primary) hypertension acute Medicare annual wellness visit, subsequent acute Post-nasal drip acute Screening PSA (prostate specific antigen) acute Bronchitis acute [facility] Work Phone: Evaluation note* Diagnosis Other specified dermatitis- Primary History of basal cell carcinoma Personal history of other malignant neoplasm of skin Personal history of squamous cell carcinoma of skin Personal history of other malignant neoplasm of skin Seborrheic keratosis Actinic keratosis Neoplasm of unspecified behavior of bone, soft tissue, and skin documented [facility]* Diagnosis Idiopathic progressive polyneuropathy- Primary Onychomycosis Dermatophytosis of nail documented in this encounter [facility]* Diagnosis Idiopathic progressive polyneuropathy- Primary Onychomycosis Dermatophytosis of nail documented in this encounter [facility] note* Diagnosis Atrial flutter, unspecified type ([facility]) Vitamin D deficiency Unspecified vitamin D deficiency Encounter for lipid screening for cardiovascular disease Aortic valve stenosis, etiology of cardiac valve disease unspecified Fatigue, unspecified type [facility]* Diagnosis Shortness of breath [facility]* Diagnosis Other specified dermatitis- Primary Actinic keratosis documented in this encounter [facility] note* Diagnosis Chest pain, unspecified type Shortness of breath Atrial flutter, unspecified type ([facility]) Encounter for lipid screening for cardiovascular disease Aortic valve stenosis, etiology of cardiac valve disease unspecified Vitamin D deficiency disease Unspecified vitamin D deficiency Other fatigue [facility]* Diagnosis Ulcer of right heel and midfoot, limited to breakdown of skin (CMS/HCC)- Primary Idiopathic progressive polyneuropathy Onychomycosis Dermatophytosis of nail Abrasion of right heel with infection documented in this encounter [facility]* Diagnosis Ulcer of right heel and midfoot, limited to breakdown of skin (CMS/HCC)- Primary Abrasion of right heel with infection documented in this encounter [facility]* Diagnosis Elevated PSA Elevated prostate specific antigen (PSA) documented [facility]* Diagnosis Idiopathic progressive polyneuropathy- Primary Onychomycosis Dermatophytosis of nail documented in this encounter [facility] note* Diagnosis Sensorineural hearing loss, bilateral- Primary [facility] Diagnosis Sensorineural hearing loss, bilateral- Primary Impaired auditory discrimination, bilateral [facility] Diagnosis Actinic keratosis- Primary Inflamed seborrheic keratosis documented in this encounter [facility]* Diagnosis Corns and callosities- Primary Idiopathic progressive polyneuropathy Hammer toe of left foot Hallux valgus of left foot Pain of toe of left foot documented in this encounter [facility] HealthcareHistory and physical note Author Mik Amaya [facility] October 23, 2021 12:49pm Note Date/Time October 23, 2021 12:4 9pm [facility] [address] [place] [address] Gastroenterology H&P Signed Patient: Bret Yap MR#: [id number] : 1940 Acct:[id number] Age/Sex: 81 / M Adm Date: 2 Loc: Room: Type: PSYCHIATRIC Attending Dr: Mik Amaya MD Copies to: MD Faizan Orr MD~ Date of Service: 10/23/2021 HISTORY & PHYSICAL: Patient's history with special attention to the cardiovascular, pulmonary systems and the current problem was reviewed with the patient immediately prior to the procedure. Present medications and doses reviewed in the EMR. Allergies and pertinent laboratory tests were also reviewed at this time in the EMR. The physical examination, as below, was then performed. Indication, assessment and HPI: 81-year-old male presents for EGD to evaluate history of Alvares's esophagus, iron deficiency anemia Family history of GI malignancy? No PHYSICAL EXAMINATION Mouth and Pharynx : Moist mucus membranes, normal dentition Cardiac: Regular rate, regular rhythm Pulmonary: Clear to auscultation bilaterally, no wheezing Neurological: Alert and oriented x3, no focal deficits noted Abdomen: Abdomen soft, non-tender REVIEW OF SYSTEMS Constitutional: Denies malaise, fevers Cardiovascular: Denies chest pain, palpitations Respiratory: Denies shortness of breath, wheezing Gastrointestinal: Per HPI Genitourinary: Denies dysuria, polyuria Musculoskeletal: Denies joint swelling, joint stiffness Neurological: Denies numbness, tingling Integumentary: Denies rashes, skin lesions Endocrine: Denies fatigue, weight loss Written informed consent obtained from the patient. Risks (including but not limited to perforation, infection, bloating, bleeding, need for emergent surgeryand loss of life), benefits and alternatives explained and questions answered. The patient verbalized understanding. Based on history patient is an appropriate candidate for the procedure. Mik Amaya MD Documented By: Mik Amaya MD 10/23/21 1248 Signed By: <Electronically signed by Mik Amaya MD> 10/23/21 1249 [facility] Work Phone: History general Narrative - Reported* Type Description Date Medical History venous insufficiency Surgical History rotator cuff tear repair bilate ral Surgical History vein stripping and SEPS procedu re Surgical History EVLT Left LE 2006 Surgical History Sclerotherapy Bilat LE 2007 Surgical History Sclerotherapy Right LE 03/2010 Surgical History Sclerotherapy Right LE 03/2010 Surgical History EVLT right leg 01/05/2016 Surgical History EVLT-LT LE 05/24/2016 Hospitalization History [facility] Other [facility]otjn general Narrative - Reported* Type Description Date Medical History venous insufficiency Surgical History rotator cuff tear repair bilate ral Surgical History vein stripping and SEPS procedu re Surgical History EVLT Left LE 2007 Surgical History Sclerotherapy Bilat LE 2008 Surgical History Sclerotherapy Right LE 03/2010 Surgical History Sclerotherapy Right LE 03/2010 Surgical History EVLT right leg 01/05/2016 Surgical History EVLT-LT LE 05/24/2016 Surgical History Right hand surgery tendon repai r 07/2021 Hospitalization History see [facility] Other Hospital course Narrative No data available for this section [facility] Attachments The following attachments cannot be sent through Care Everywhere. * Edema: Leg and Ankle (Egyptian) * Vasculitis: General Info (Egyptian) * Hypertension: General Info (Egyptian) * COPD: General Info (Egyptian) documented in this [facility] Work Phone: Hospital Discharge instructions No data available for this section [facility] No data available for this section [facility] HospitalReason for visit NarrativePATIENT HERE AT THE REQUEST OF DR SEVILLA FOR EVALUATION & TREATMENT OF NORMOCYTIC ANEMIALittle [facility] [employer] Other Reason for visit Narrative* (Routine) - Open Specialty Diagnoses / Procedures Referred By Contac t Referred To Contact Diagnoses Chest pain, unspecified type Procedures Nuclear stress test with myocardial perfusion Wing Álvarez MD [address] [place] [id number] Referral ID Status Reason Start Date Expiration Date Visits Re quested Visits Authorized [id number] Open 12/09/2023 12/08/2024 3 3 [facility] Summary Purpose Family History No Family History Records Found Relationship Condition Age at Onset Recorded Date/T loraine father Malignant neoplasm Unknown Not Specified Perforation of intestine Unknown brother Parkinson's disease Unknown Relationship Condition Age at Onset Recorded Date/T loraine father Malignant neoplasm Unknown mother Perforation of intestine Unknown brother Parkinson's disease Unknown brother Unknown Parkinson's disease Unknown father Unknown mother Unknown Advance Directives No Advanced Directives Records FoundDocuments on File Type Date Recorded 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 Advance Directives and Livin g Will 11/03/2019 8:51 AM Documents on File Type Date Recorded 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 ACP-Advance Directive ACP-Power of Cryptological Technician Documents on File Type Date Recorded 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 Advance Directives and Livin g Will 11/03/2019 8:51 AM Documents on File Type Date Recorded 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 Advance Directives and Living Will Power of Cryptological Technician Documents on File Type Date Recorded 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 ACP-Advance Directive ACP-Power of Cryptological Technician Advance Directive Response Recorded Date/ Time Advance Directives No January 11:35am Advance Directive Response Recorded Date/ Time Advance Directives No January 10:35am Date Activated Date Inactivated Comments 01/23/2024 8:15 AM 01/23/2024 10:43 AM Date Activated Date Inactivated Comments 01/23/2024 8:15 AM 01/23/2024 10:43 AM Reason for Referral Status Reason Specialty Diagnoses / Procedures Referre d By Contact Referred To Contact Closed Radiology Diagnoses Bilateral optic atrophy Procedures MR Brain/Orbit With And Without Contrast Nita Hernandez MD [address] [facility] [address] [place] [address] Status Reason Specialty Diagnoses / Procedures Re ferred By Contact Referred To Contact Pending Review Cardiology Diagnoses Atrioventricular septal defect (AVSD) Aortic valve stenosis, etiology of cardiac valve disease unspecified Atrial flutter, unspecified type (HCC) Abnormal EKG Encounter for lipid screening for cardiovascular disease Vitamin D deficiency Procedures EKG 12 Lead Wing Álvarez MD [address] [place] [id number] Status Reason Specialty Diagnoses / Procedures Referre d By Contact Referred To Contact Closed Cardiology Diagnoses Atrioventricular septal defect (AVSD) Aortic valve stenosis, etiology of cardiac valve disease unspecified Procedures ECHO Complete 2D W Doppler W Color Wing Álvarez MD [address] [place] [phone] Status Reason Specialty Diagnoses / Procedures Referre d By Contact Referred To Contact Closed Diagnoses Atrioventricular septal defect (AVSD) Aortic valve stenosis, etiology of cardiac valve disease unspecified Procedures Holter monitor 48 hour Wing Álvarez MD [address] [place] [phone] Status Reason Specialty Diagnoses / Procedures Referre d By Contact Referred To Contact Open Cardiology Diagnoses Abnormal EKG Procedures EKG 12 Lead Wing Álvarez MD [address] [place] [phone] Specialty Diagnoses / Procedures Referred By Contac t Referred To Contact Gastroenterology Diagnoses Normocytic anemia Procedures CONSULT TO GASTROENTEROLOGY OFFICE/OUTPATIENT [facility] 60-74 MINUTES Ketan Manzanares MD [address] [place] [address] [place] [address] Referral ID Status Reason Start Date Expiration Date Visits Requested Visits Authorized [id number] Pending Review PCP Requested Referral 07/02/2021 07/02/2022 1 1 Specialty Diagnoses / Procedures Referred By Contac t Referred To Contact Cardiology Diagnoses Vitamin D deficiency Encounter for lipid screening for cardiovascular disease Atrial flutter, unspecified type (HCC) Procedures EKG 12 Lead Wing Álvarez MD [address] [place] [phone] Referral ID Status Reason Start Date Expiration Date Visits Re quested Visits Authorized [id number] Open 08/14/2021 08/14/2022 1 1 Specialty Diagnoses / Procedures Referred By Contac t Referred To Contact Cardiology Diagnoses Atrial flutter, unspecified type (HCC) Vitamin D deficiency Encounter for lipid screening for cardiovascular disease Aortic valve stenosis, etiology of cardiac valve disease unspecified Procedures EKG 12 Lead Wing Álvarez MD [address] [place] [phone] Referral ID Status Reason Start Date Expiration Date Visits Re quested Visits Authorized [id number] Open 09/04/2022 09/04/2023 1 1 Specialty Diagnoses / Procedures Referred By Contac t Referred To Contact Diagnoses Shortness of breath Procedures Echo (TTE) complete (PRN contrast/bubble/strain/3D) TX ECHO TTHRC R-T 2D W/WOM-MODE COMPL SPEC&COLR D TX TTE W OR WO FOL WCON,DOPPLER Wing Álvarez MD [address] [place] [phone] Referral ID Status Reason Start Date Expiration Date V isits Requested Visits Authorized [id number] Not Required - RTA 12/09/2023 12/08/2024 1 1 Assessments Diagnosis Bilateral optic atrophy Unspecified optic atrophy Diagnosis Compression fracture of thoracic vertebra, initial encounter, unspecified thoracic vertebral level (HCC) Closed head injury, initial encounter History of Present Illness * Kate Rivera, PT - 11/29/2019 2:00 PM EDT [facility] Outpatient Physical Therapy Evaluation Date: 11/29/2019 Patient: Bret Yap : 1940 Referring Practitioner: Dr. Asher Wilde Referral Date : 11/22/19 Diagnosis: M16.11; Right hip primary osteoarthritis Treatment Diagnosis: Back Pain Onset Date: 11/22/19(Referral) PT Insurance Information: [facility], [place] Total # of Visits Approved: 12 Per Physician Order Total # of Visits to Date: 1 Subjective Additional Pertinent Hx: Patient c/o pain that is intermittent in right low back and radiating to right buttock. Main c/o pain with standing and walking are limited by severe pain. Sitting and layingreleive pain. 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 Hx- Right leg fx twice with plate screwed into tibia, Bilateral shld rotator cuff surgery, fx L humerus, gout. Meds- Meloxicam. Had lumbar injection inpast, but it doesn't last. Xray of hips- negative. 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 Type of occupation: [employer] Objective Spine Lumbar: forward flexion limited 50%, Bilateral rotation limited 25% Joint Mobility Spine: decrease mobility throughout spine Strength RLE Strength RLE: WFL AROM RLE (degrees) RLE AROM: WFL Strength LLE Strength LLE: WFL AROM LLE (degrees) LLE AROM : WFL AROM RLE (degrees) RLE AROM: WFL AROM LLE (degrees) LLE AROM : WFL PROM LLE (degrees) LLE PROM: WFL PROM RLE (degrees) RLE PROM: WFL Additional Measures Special Tests: SLR negative Ambulation 1 Quality of Gait: antalgic with intermittent limp, limited distance by pain Assessment Body structures, Functions, Activity limitations: Decreased functional mobility , Increased pain, Decreased posture Assessment: Patient present with symptoms of right lumbar stenosis. Completed therex and manual therapy per Doc Flow. Educated patient on and issued HEP handout and G t-band. Plan for therex, manual therapy, education on HEP and back education. Prognosis: Good Decision Making: Low Complexity History: as above Exam: Oswestry score 12/45 Clinical Presentation: Evolving The Following Comorbities will impact the patient s progression and Plan of Care: Previous Orthopedic Injury/Surgery Education: On POC and HEP Goals Short term goals Time Frame for Short term goals: 6 Short term goal 1: Patient to be independent with HEP for core strengthening exercises Short term goal 2: Patient to demonstrate correct body mechanics with lifting following education FPC goals Time Frame for FPC goals : 12 computer terminal operator goal 1: Decrease pain right buttock 2/10 at worst x 3days FPC goal 2: Patient to walk and stand for 30 minutes or longer without pain interfering computer terminal operator goal 3: Improve functional activities with Oswestry score <8/45 Patient's Goal: Be able to stand and walk without right buttock pain interfering Timed Code Treatment Minutes: 15 Minutes Total Treatment Time: 45 Time In: 14:05 Time Out: 14:50 Kate Rivera, PT Date: 11/29/2019 documented in this encounter* Gary Mcnamara, EAR[employer]MOVING PLANT OPERATOR - 12/08/2019 8:00 AM EDT [facility] Outpatient Physical Therapy Daily Note Date: 12/08/2019 Patient Name: Bret Yap : 1940 (79 y.o.) Referring Practitioner: Dr. Asher Wilde Referral Date : 11/22/19 Diagnosis: M16.11; Right hip primary osteoarthritis Treatment Diagnosis: Back Pain Onset Date: 11/22/19(Referral) PT Insurance Information: [facility], [place] Total # of Visits Approved: 12 Per Physician Order Total # of Visits to Date: 4 Plan of Care/Certification Expiration Date: 12/29/19 Pre-Treatment Pain: 0/10 Assessment Assessment: Patient reports he isn't having pain at the moment, but notes when holding his great granddaughter over the weekend he had a little bit of pain. Since beginning therapy patient has noticed sme improvement regarding pain when he stands or walks for longer periods of time. Added resisted hip ext exercise this morning for glut strength. Concluded session with manual and afterwards patient reports some soreness, but notes it usually goes away within 1-2 hours after leaving. Chart Reviewed: Yes Plan Plan: Continue with current plan Exercises/Modalities/Manual: See DocFlow Sheet Education: Goals (Total # of Visits to Date: 4) Short Term Goals - Time Frame for Short term goals: 6 Short term goal 1: Patient to be independent with HEP for core strengthening exercises - MET Short term goal 2: Patient to demonstrate correct body mechanics with lifting following education -MET Boardinghouse Keeper Goals - Time Frame for FPC goals : 12 computer terminal operator goal 1: Decrease pain right buttock 2/10 at worst x 3days FPC goal 2: Patient to walk and stand for 30 minutes or longer without pain interfering computer terminal operator goal 3: Improve functional activities with Oswestry score <8/45 Post Treatment Pain: 04/09 Time In: 0800 Time Out : 0836 Timed Code Treatment Minutes: 36 Minutes Total Treatment Time: 36 Minutes Gary Mcnamara PTA Date: 12/08/2019 documented in this encounter* Gary Mcnamara PTA - 12/10/2019 8:15 AM EDT [facility] Outpatient Physical Therapy Daily Note Date: 12/10/2019 Patient Name: Bret Yap : 1940 (79 y.o.) Referring Practitioner: Dr. Asher Wilde Referral Date : 11/22/19 Diagnosis: M16.11; Right hip primary osteoarthritis Treatment Diagnosis: Back Pain Onset Date: 11/22/19(Referral) PT Insurance Information: [facility], [employer] Total # of Visits Approved: 12 Per Physician Order Total # of Visits to Date: 5 Plan of Care/Certification Expiration Date: 12/29/19 Pre-Treatment Pain: 0/10 Assessment Assessment: Patient denies pain this morning. He notes he is gradually improving as he is able to stand/walk for approx. 20-25 mintues whereas it was only 5-10 before. Completed exercises and manual as outlined with good tolerance from patient. Following session patient reports no pain. Chart Reviewed: Yes Plan Plan: Continue with current plan Exercises/Modalities/Manual: See DocFlow Sheet Education: Goals (Total # of Visits to Date: 5) Short Term Goals - Time Frame for Short term goals: 6 Short term goal 1: Patient to be independent with HEP for core strengthening exercises - MET Short term goal 2: Patient to demonstrate correct body mechanics with lifting following education -MET Snf Goals - Time Frame for FPC goals : 12 FPC goal 1: Decrease pain right buttock 2/10 at worst x 3days FPC goal 2: Patient to walk and stand for 30 minutes or longer without pain interfering computer terminal operator goal 3: Improve functional activities with Oswestry score <8/45 Post Treatment Pain: 0/10 Time In: 0817 Time Out : 0857 Timed Code Treatment Minutes: 40 Minutes Total Treatment Time: 40 Minutes Gary Mcnamara PTA Date: 12/10/2019 documented in this encounter* Gayr Mcnamara PTA - 12/13/2019 8:45 AM EDT [facility] Outpatient Physical Therapy Daily Note Date: 12/13/2019 Patient Name: Bret Yap : 1940 (79 y.o.) Referring Practitioner: Dr. Asher Wilde Referral Date : 11/22/19 Diagnosis: M16.11; Right hip primary osteoarthritis Treatment Diagnosis: Back Pain Onset Date: 11/22/19(Referral) PT Insurance Information: [facility], [place] Total # of Visits Approved: 12 Per Physician Order Total # of Visits to Date: 6 Plan of Care/Certification Expiration Date: 12/29/19 Pre-Treatment Pain: 0/10 Assessment Assessment: Patient denies back pain this morning. He states he was able to test out his back a little bit over the weekend as he did a little more walking. He states after about 15-20 mintues beforehe started noticing some discomfort. He notes this discomfort was no where near as painful as it was prior to therapy. Continued with exercises and manual as outlined with good tolerance from patient. Following session patient denies pain. Since beginning therapy patient has noticed a 60% improvement in symptoms. Chart Reviewed: Yes Plan Plan: Continue with current plan Exercises/Modalities/Manual: See DocFlow Sheet Education: Goals (Total # of Visits to Date: 6) Short Term Goals - Time Frame for Short term goals: 6 Short term goal 1: Patient to be independent with HEP for core strengthening exercises - MET Short term goal 2: Patient to demonstrate correct body mechanics with lifting following education -MET Boardinghouse Keeper Goals - Time Frame for computer terminal operator goals : 12 FPC goal 1: Decrease pain right buttock 2/10 at worst x 3days computer terminal operator goal 2: Patient to walk and stand for 30 minutes or longer without pain interfering FPC goal 3: Improve functional activities with Oswestry score <8/45 Post Treatment Pain: 0/10 Time In: 0845 Time Out : 0925 Timed Code Treatment Minutes: 40 Minutes Total Treatment Time: 40 Minutes Gary Mcnamara PTA Date: 12/13/2019 documented in this encounter* Kate Rivera, PT - 12/16/2019 1:45 PM EDT [facility] Outpatient Physical Therapy Daily Note Date: 12/16/2019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 PERTAINING TO PATIENTS WHO ARE OR HAVE BEEN ENROLLED IN A CHEMICAL DEPENDENCY/SUBSTANCEABUSE PROGRAM, SOME INFORMATION MAY BE OMITTED. This clinical summary was aggregated from multiple sources. Caution should be exercised in using it in the provision of clinical care. This summary normalizes information from multiple sources, and as a consequence, information in this document may materially change the coding, format and clinical context of patient data. In addition, data may be omitted in some cases. CLINICAL DECISIONS SHOULD BE BASED ON THE PRIMARY CLINICAL RECORDS. [facility] [employer] [facility]. provides no warranty or guarantee of the accuracy or completeness of information in this document.
[2024-12-08 10:52] LABS: Hematocrit 35.3 % (42.0-54.0); Hemoglobin 11.5 g/dL (14.0-18.0); Immature Granulocytes Abs Auto 0.01 10^3/uL (0.00-0.03); Immature Granulocytes Pct Auto 0.2 % (0.0-0.5); Lymphocytes Absolute Auto 0.9 10^3/uL (1.2-3.8); Mean Corpuscular HGB Conc 32.6 g/dL (29.9-35.2); Mean Corpuscular Hemoglobin 31.8 pg (25.9-34.0); Mean Corpuscular Volume 97.5 fL (80.0-94.0); Platelet Count 215 10^3/uL (150-450); Red Blood Count 3.62 10^6/uL (4.70-6.10); White Blood Count 5.8 10^3/uL (4.0-11.0)
[2024-12-08 11:14] LABS: Alanine Aminotransferase 28 U/L (16-63); Albumin Globulin Ratio 0.9; Albumin Level 3.4 g/dL (3.4-5.0); Alkaline Phosphatase 124 U/L (46-116); Anion Gap 9.9; Aspartate Amino Transferase 21 U/L (15-37); Blood Urea Nitrogen 22.0 mg/dL (7.0-18.0); Calcium 8.7 mg/dL (8.5-10.1); Carbon Dioxide 29.5 mmol/L (21.0-32.0); Chloride 103 mmol/L (98-107); Cholesterol 117 mg/dL (<=200); Estimated GFR (African America >60 (>=60 mL/min/1.73m^2); Estimated GFR (Non-African Ame 55 (>=60 mL/min/1.73m^2); Globulin 4.0 g/dL; Glucose 91 mg/dL (74-106); HDL Cholesterol 58 mg/dL (40-60); Potassium 4.4 mmol/L (3.5-5.1); Sodium 138 mmol/L (136-145); Total Protein 7.4 g/dL (6.4-8.2); Triglycerides 31 mg/dL (<=150); Uric Acid 5.5 mg/dL (3.5-7.2); VLDL CHOLESTEROL 6.2 mg/dL
[2024-12-08 11:37] LABS: Ferritin 98.0 ng/mL (26.0-388.0)
== END 2024-12-08 10:13 | disposition home or self-care (01) ==
LOC: LAB 10:13
PROVIDERS: PCP Family Medicine; Visit Provider Family Medicine
DX: E78.5 Hyperlipidemia, unspecified (principal); D50.9 Iron deficiency anemia, unspecified; I10 Essential (primary) hypertension
CPT/HCPCS: 36415; 80053; 80061; 82043; 82570; 82728; 84550; 85025

== ENCOUNTER 2025-02-08 13:48 | Outpatient (OUT) | payer MEDICARE, OTHER, SELFPAY ==
--- OUTSIDE RECORDS SUMMARY | 2019-09-27 05:30 | XMS_ITS | Continuity of Care Document ---
Author Organization [facility] Address [address] [place] [address] Phone Care Team Providers Care Machine Engineer Name Role Phone Rohan Cross MD Unavailable Unavailable Allergies, Adverse Reactions, Alerts Substance Reaction Status Criticality No Known Allergies Active No Inform ation Medications Medication Instructions Dosage Effective Dates (start - stop) Status Comments Prilosec OTC 20 mg tablet,delayed release - Active allopurinol 100 mg tablet - Active Prilosec OTC 20 mg tablet,delayed release take 2 tablet by oral route every day 2 tablet - No Longer Active Procedures Procedure Date OCT Retina Offic/outpt E&m [facility] Advance Directives Directive Yes / No Effective Date File Name No Information Encounters Encounter Description Practice Location Reason(s) For Visit Diagnoses Date Provider Providers Copied on Encounter Offic/outpt E&m [facility], [address], [place], [place], [id number], [place] tel:[phone] [facility] blurry vision (chief complaint) Unspecified visual field defectsVisual discomfort, left eyePuckering of macula, right eyeBenign neoplasm of left choroid Tay Madrigal. [address], [place], [address], [place]. tel:[phone] Specialist: Aure Coy OD, [address] [place], [address]. tel:[phone] ring Provider: Rohan Ingram, [address], [place], [address]. tel:[phone] Family History Family Member Type Diagnosis Age At Onset Father Problem (finding) prostate cancer Payers Payer name Insurance type Covered republican ID James vernon(s) Medicare Marissa GARCIAS [id number] Medical [place] [id number] Social History Type Description Quantity Date Captured Comments Alcohol Use Details No Caffeine Use Details No Tobacco Use Status Current non-smoker 20 Smoking Status Never smoker Non-Smoking Tobacco Use Details : No Details Available : No Details Available [id number] SexMale Vital Signs Date / Time: Height Weight BMI Pulse Rate Blood Pressure Temperature Respiratory Rate Body Surface Area Head Circumference Head Circ. Percentile Wt./[place]. Percentile BMI percentile Pulse Ox Inhaled Ox 10:48 AM 72 /min 139/83 mm[Hg] Chief Complaint And Reason For Visit From encounter dated '09/27/2019 10:30'. blurry vision (chief complaint). Description: Patient is here for a new patient visit. Patient states that his right eye has been experience some blurry vision since his cataract surgery in September 2018. States that in bright light he sees a spot in his right eye where things are kind of clear centrally but around it is like looking through a dirty window . States that artifical tears does not make it any better. It gets better when there is less light. States that his side visionis also blurry. Denies flashes, floaters, and eye pain.The 79 years old male presents for evaluation of blurry vision in the right > left. The onset was gradual onset. It affects OD >OS. The symptom is constant. It occurs with no pattern. The condition is not any better. The condition is described as blurring. Reason For Referral Reason For Referral No Information Plan Of Treatment Date Type Action Status Patient Education Prilosec OTC 20 mg tabl et,delayed rel~ completed History Of Present Illness Encounter Date Complaint History Of Prese nt Illness blurry vision Patient is here for a new patient visit. Patient states that his right eye has been experience some blurry vision since his cataract surgery in September 2018. States that in bright light he sees a spot in his right eye where things are kind of clear centrally but around it is like looking through a dirty window . States that artifical tears does not make it any better. It gets better when there is less light. States that his side vision is also blurry. Denies flashes, floaters, and eye pain.The 79 years old male presents for evaluation of blurry vision in the right > left. The onset was gradual onset. It affects OD > OS. The symptom is constant. It occurs with no pattern. The condition is not any better. The condition is described as blurring. Functional Status Date Functional Assessmen t No Information Medications Administered Medication Instructions Dosage Effective Dates (start - stop) Status Comments Prilosec OTC 20 mg tablet,delayed release take 2 tablet by oral route every day 2 tablet - No Longer Active Instructions Date Instruction Additional Infor shelbyesteban - Discussed the puck er is very mild and this is not causing his problems. On exam the retina looks unremarkable and healthy. His symptoms are not related to the macular pucker. He needs to be checked when he is not dilated. Discussed this could be related to the pupil size and the artificial lens. Should have a visual field test and if has loss then should see neuro-ophthalmology. Call if VA worsens. Related to Visual field lossVisual discomfort of left eyeEpiretinal membrane, right eyeChoroidal nevus, left eye - Return in PRN Related to Visua l field lossVisual discomfort of left eyeEpiretinal membrane, right eyeChoroidal nevus, left eye Assessments Type Assessment Date assessment Visual field loss assessment Visual discomfort of left eye Ju n assessment Epiretinal membrane, right eye J assessment Choroidal nevus, left eye Patient Care Teams Name Effective Dates (start - stop) Status Members No Information
--- OUTSIDE RECORDS SUMMARY | 2025-01-26 08:30 | XMS_ITS | Encounter Summary ---
Author Organization [facility] 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 2 months, right is the worst. History of varicose veins with sclerotherapy on right leg. Possible vein stripping in left leg. Wears co mpression. * Eval and Treat (Routine) - ClosedSpecialtyDiagnoses / ProceduresReferred By ContactReferred To ContactVascular Medicine / Vascular Surgery Diagnoses Edema of right lower leg Acute right ankle pain Miesha Clark APRN - OPER[employer] MANAGER [address] [place] [address] Phone: tel: fax: [facility] Part [address] [place] [address] Phone: tel: fax: Referral IDStatJessica DateExpiration DateVisits RequestedVisits [id number] Specialty Services Required Encounter Details DateTypeDepartmentCare Team (Latest Contact Info)Wjulupmjfpg47/29/2025 9:30 AM EDTOffice Visit [facility] Part [address] [place] [address] Agapito Felder MD [address] [place] [address] [address] [place] [address] 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) (Primary Dx); Varicose veins of bilateral lower extremities with pain Social History Tobacco UseTypesPacks/DayYears UsedDateSmoking Tobacco: NeverSmokeless Tobacco: NeverAlcohol UseStandard Drinks/WeekCommentsNo0 (1 standard drink = 0.6 oz pure alcohol)AUDIT-CAnswerDate RecordedQ1: How often do you have a drink containing alcohol?Never03/14/2024Q2: How many drinks containing alcohol do you have on a typical day when you are drinking?Patient does not drink03/14/2024Q3: How often do you have six or more drinks on one occasion?Never03/14/2024Interpersonal Safety Domain Source: IP Abuse ScreeningAnswerDate RecordedRead-Only, Retired: Physical DlucwPzufjm16/18/2023Read-Only, Retired: Verbal EhxgdWupqph93/18/2023 Read-Only, Retired: Emotional ddnuzNfkkxz28/18/2023Read-Only, Retired: Financial QraagAwulpz18/18/2023Read-Only, Retired: Sexual igdyoUyiejr56/18/2023Sex and Gender InformationValueDate RecordedSex Assigned at LeldkGrzo65/30/2023 12:10 PM ESTLegal FlhNxlw6605/10/2012 9:49 PM ESTGender OuwwlpjuRxur35/30/2023 12:10 PM EST Sexual UpyebopuovzYbwidkpf41/30/2023 12:10 PM ESTdocumented as of this encounter Last Filed Vital Signs Vital SignReadingTime TakenCommentsBlood Eoosznrv241/5501/26/2025 9:31 AM EDT Fhwzn923001/26/2025 9:31 AM VMIVntcparrbva73.7 ??C (96.2 ??F)01/26/2025 9:31 AM EDTRespiratory Nmws8045 9:31 AM EDTOxygen Saturation--Inhaled Oxygen Concentration--Qfsnpk75.4 kg (201 lb 8 oz)01/26/2025 9:31 AM QFYPzogyv546 cm (6' 2 )01/26/2025 9:31 AM EDTBody Mass Index25.8701/26/2025 9:31 AM EDTdocumented in this encounter Patient Instructions * Patient Instructions* Shima Mercedes MA - 01/26/2025 9:27 AM EDT SURVEY: Thank you for allowing us to care for you today. You may be receiving a survey from [facility] regarding your visit today- electronically or via mail. Please help us by completing the survey as this will provide the needed feedback to ensure we are providing the very best care for you and your family. If you cannot score us a very good on any question, please call the office to discuss how we could have made your experience a very good one. Thank you. HEALTH INFORMATION SPECIALIST STAFF: Elly Gray, Roseann GARCIA CLINICAL STAFF: Fidelina MENDOZA, Prabha GARCIA, Shima GARCIA, Michell MENDOZA documented in this encounter Progress Notes * Agapito Felder MD - 01/26/2025 9:40 AM EDT Troy Yap was seen on 01/26/2025 for Chief Complaint Patient presents with Leg Pain Patient reports bilateral lower leg pain and swelling for approx. 2 months, right is the worst. History of varicose veins with sclerotherapy on right leg. Possible vein stripping in left leg. Wears compression. .01/26/25 1st [facility] Vascular visit. About 30 yrs ago had vein stripping, which he thinks was on the left. Then he had ulcer left medial ankle that looked like hamburger . Treated veins with sclerotherapy injection. Ulcer healed and pain went away. Went [place] this summer afterwhich both legs swelled up. Right below knee, left ankle and foot. Both painful. Lasix helped with swelling but pain has persisted. Even before the cruise he had moderately severe pain right lower leg, worsened with standing. Left not as bad. Walking seems worse. No calf claudication. Cramps when dehydrated. Interferes with sleep. 01/19/25 DUS [place] neg for DVT, SVT. Right leg vv with edema. No hx of blood clot. Son has varicose veins. 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 Has worn compression.continuously Cr 1.5 gfr 46 AF on Xarelto. Follows with Dr Miller. Echo 01/17/25 ef 47, RVSP 64 Mod-severe TR, Severe NIESHA. Metal plate right lower leg volleyball injury. 6'2 63 years Social History Socioeconomic History Marital status: Spouse name: Not on file Number of children: Not on file Years of education: Not on file Highest education level: Not on file Occupational History Not on file Tobacco Use Smoking status: Never Smokeless tobacco: Never Vaping Use Vaping status: Never Used Substance and Sexual Activity Alcohol use: No Drug use: No Sexual activity: Not on file Other Topics Concern Not on file Social History Narrative Not on file Social Drivers of Health Financial Resource Strain: Not on file Food Insecurity: Not on file Transportation Needs: Not on file Physical Activity: Not on file Stress: Not on file Social Connections: Not on file Intimate Partner Violence: Unknown (05/22/2023) Received from [facility] Safety & Environment Fear of Current or Ex-Partner: Not on file Emotionally Abused: Not on file Physically Abused: Not on file Sexually Abused: Not on file Physically or Sexually Abused: Not on file Housing Stability: Not on file Family History Problem Relation Age of Onset Cancer Mother Other (Varicose veins) Son Past Medical History: Diagnosis Date Atrial fibrillation (HCC) CAD (coronary artery disease) Complicated varicose veins COPD (chronic obstructive pulmonary disease) ([facility]) GERD (gastroesophageal reflux disease) Glaucoma Gout Current Outpatient Medications Medication Sig Dispense Refill furosemide (LASIX) 20 MG tablet Take 1 tablet by mouth daily 30 tablet 11 eplerenone (INSPRA) 25 MG tablet Take 1 tablet by mouth daily 30 tablet 3 atorvastatin (LIPITOR) 10 MG tablet Take 1 tablet by mouth daily 90 tablet 3 rivaroxaban (XARELTO) 20 MG TABS tablet Take 1 tablet by mouth Daily with supper 90 tablet 3 ferrous sulfate (IRON 325) 325 (65 Fe) MG tablet Take 1 tablet by mouth daily (with breakfast) 90 tablet 3 amLODIPine (NORVASC) 2.5 MG tablet Take 1 tablet by mouth daily Cholecalciferol (VITAMIN D) 50 MCG (2000 UT) CAPS capsule Take 5,000 Units by mouth daily latanoprost (XALATAN) 0.005 % ophthalmic solution INSTILL 1 DROP IN BOTH EYES once DAILY IN THE EVENING Omeprazole 20 MG TBEC Take 1 tablet by mouth daily allopurinol (ZYLOPRIM) 300 MG tablet Take 1 tablet by mouth daily colchicine (COLCRYS) 0.6 MG tablet Take 1 tablet by mouth daily (Patient not taking: Reported on 01/26/2025) 30 tablet 3 aspirin 81 MG EC tablet Take 1 tablet by mouth daily (Patient not taking: Reported on 01/26/2025) No current facility-administered medications for this visit. Physical findings: General- no acute distress, oriented HEENT - no xanthelasma, external ears normal Neck- Supple, no thyromegaly. Prominent V wave Carotids - no carotid bruits Lungs - Clear to auscultation. CV- Regular rate, no murmurs rubs or gallops Abdomen - Non tender, non distended, no bruits Skin- warm, dry, no skin breakdown or gangrene Extremities - edema brawny both legs, stemmers + bilat, early tissue breakdown right lateral ankle,threatened skin both medial ankles, ropey varicose veins left medial thigh Pulses Right - Posterior tibial: 2+ Dorsalis pedis: 2+ Pulses Left - Posterior tibial: 2+ Dorsalis pedis: 2+ Assessment: 1. 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 * Shima Mercedes MA - 01/26/2025 9:39 AM EDT Troy Yap was seen on 01/26/2025 for Chief Complaint Patient presents with Leg Pain Patient reports bilateral lower leg pain and swelling for approx. 2 months, right is the worst. History of varicose veins with sclerotherapy on right leg. Possible vein stripping in left leg. Wears compression. . REVIEW OF SYSTEMS Constitutional Weight: absent, A, Fatigue: absent Fever: absent HEENT Ears: normal,Visual disturbance: absent Sore throat: absent, Respiratory Shortness of breath: absent, Cough: absent;, Snoring: absent Cardivascular Chest pain: absent, Leg pain: present,Leg swelling:present, Non- healing wound:absent GI Diarrhea: absent, Abdominal Pain: absent Urinary frequency: absent, Urinary incontinence: absent Musculoskeletal Neck pain: absent, Back pain: absent, Restless Leg:absent Dermatological Hair loss: absent, Skin changes: present Neurological Sudden Loss of Vision in one eye:absent, Slurred Speech:absent, Weakness on one side of body: absent,Headache: absent Psychiatric Anxiety: absent, Depression: absent Hematologic Abnormal bleeding: absent, documented in this encounter Plan of Treatment DateTypeDepartmentCare Team (Latest Contact Info)Facwmancnus98/29/2026 9:30 AM ESTOffice Visit [facility] [address] [place] [phone] Miesha Clark, POTAT[employer] SPOTTER - OPER[employer]CHO[employer] MANAGER [address] [place] [address] 1 year follow up labs ekg cxr08/03/2025 9:30 AM EDTOffice Visit [facility] Part of [address] [place] [address] Agapito Felder MD [address] [place] [address] [address] [place] [id number] 6 mth f/u008/16/2025 10:00 AM EDTOffice Visit [facility] Part of [address] [place] [address] Chente Lyons, PAEdwinaC [address] [place] [address] [address] [place] [address] 1 year PSAdocumented as of this encounter Results * Vascular duplex reflux venous insufficiency study bilateral (01/27/2025 2:27 PM EDT)ComponentValueRef RangeTest MethodAnalysis TimePerformed AtPathologist SignatureRight GSV Junc Diam5.5mmBSMH CV CPACSLeft GSV Junc Diam4.9mmBSMH CV CPACSRight GSV Junc Rfx0.0sBSMH CV CPACSRight SSV Prox Diam1.90mmBSMH CV CPACS Right SSV Prox Rfx2.4sBSMH CV CPACSRight SSV Mid Diam2.00mmBSMH CV CPACSRight SSV Mid Rfx3.2sBSMH CV CPACSRight CFV Rfx1.2sBSMH CV CPACSRight FV Prox reflux 3.9sBSMH CV CPACSRight FV Mid reflux3.7sBSMH CV CPACSRight Pop Rfx2.5sBSMH CV CPACSRight AASV proximal diameter2.30mmBSMH CV CPACSRight AASV Prox reflux0.0s BSMH CV CPACSLeft GSV Junc Rfx3.4sBSMH CV CPACSLeft SSV Prox Diam2.48mmBSMH CV CPACSLeft SSV Prox Rfx2.3sBSMH CV CPACSLeft SSV Mid Diam2.40mmBSMH CV CPACS Left SSV Mid Rfx4.8sBSMH CV CPACSLeft FV Mid reflux1.8sBSMH CV CPACSLeft Pop Rfx1.2sBSMH CV CPACSAnatomical RegionLateralityModalityVascular Ultrasound Specimen (Source)Anatomical Location / LateralityCollection Method / Volume Collection TimeReceived Time Narrative 01/27/2025 4:44 PM EDT Deep venous insufficiency (>1.0 sec) noted in the right common femoral, femoral and popliteal veins. Superficial venous insufficiency (>0.5 sec) noted in the right small saphenous vein. Deep venous insufficiency (>1.0 sec) noted in the left femoral and popliteal veins. Superficial venous insufficiency (>0.5 sec) noted in the left small saphenous and saphenofemoral junction veins. ?No evidence of acute deep vein thrombosis in the right lower extremity. Vessels demonstrate normal compressibility, color filling, and phasic and spontaneous flow. ?No evidence of acute deep vein thrombosis in the left lower extremity. Vessels demonstrate normal compressibility, color filling, and phasic and spontaneous flow. Right Lower Venous No evidence of acute deep vein thrombosis. The common femoral, saphenofemoral junction, profunda femoral, femoral, and popliteal veins were imaged in the transverse view and showed normal compressibility. The common femoral, popliteal, and middle femoral veins were imaged in the longitudinal view and showed normal color filling and normal phasic and spontaneous flow. Greater Saphenous Vein: Thigh not visualized, calf not visualized and ankle not visualized. Reflux study patient position: reverse Trendelenburg. Deep venous insufficiency (>1.0 sec) notedin the common femoral, femoral and popliteal veins. Superficial venous insufficiency (>0.5 sec) noted in the small saphenous vein. Anterior accessory and saphenofemoral junction veins are competent. The GSV is not visualized, patient reports history of prior vein stripping. There is a varicose vein of unknown origin noted in the proximal calf with no reflux noted. The patient has three ulcers on his ankle, one in the medial aspect and two located on the lateral aspect of the bottom foot under the ankle bone. Varicose veins of unknown origin are noted surrounding these ulcers, some with reflux noted. Measurements are as follows: Medial Ankle proximal to ulcer: 1.1 mm, 0 seconds Medial Ankle distal to ulcer: 0.9 mm, 2.89 seconds Medial Ankle lateral to ulcer: 1.8 mm, 0 seconds Lateral Ulcer under ankle closest to heel: 1.9 mm, 0 seconds Between Ulcers: 1.7 mm, 0 seconds Left Lower Venous No evidence of acute deep vein thrombosis. The common femoral, saphenofemoral junction, profunda femoral, femoral, and popliteal veins were imaged in the transverse view and showed normal compressibility. The common femoral, popliteal, and middle femoral veins were imaged in the longitudinal view and showed normal color filling and normal phasic and spontaneous flow. Greater Saphenous Vein: Thigh not visualized, calf not visualized and ankle not visualized. Reflux study patient position: reverse Trendelenburg. Deep venous insufficiency (>1.0 sec) notedin the femoral and popliteal veins. Superficial venous insufficiency (>0.5 sec) noted in the small saphenous and saphenofemoral junction veins. Common femoral vein are competent. The GSV is not visualized, patient reports history of prior vein stripping. There are multiple varicose veins of unknown origin noted in the groin, unable to adequately identify the GSV or AASV. There is a varicose vein of unknown origin noted in the proximal thigh, this vein can be followed to the distal anterior calf with reflux noted. Measurements are as follows: Proximal thigh: 3.4 mm, 3.51 seconds Mid thigh: 3.0 mm, 5.81 seconds Distal thigh: 2.7 mm, 3.56 seconds Proximal anterior calf: 1.8 mm, 6.46 seconds Mid anterior calf: 2.4 mm, 2.19 seconds Distal anterior calf: 2.3 mm, 0 seconds There is a patent searcher noted in the distal calf with no reflux noted. 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
--- OUTSIDE RECORDS SUMMARY | 2025-01-27 08:15 | XMS_ITS | Encounter Summary ---
Author Organization [facility] Address [address] [place] [address] Care Team Providers Care Bed Rubber Name Role Phone Raegan Walker MD Primary Care Provider [phone] Reason for Visit * ReasonCommentsToenail Care Encounter Details DateTypeDepartmentCare Team (Latest Contact Info)Vlhljkezbyn22/30/2025 9:15 AM EDTProcedure Visit [facility] [address] [place] [address] Juan C Gusman, DPM [address] [place] [address] Idiopathic progressive polyneuropathy (Primary Dx); Onychomycosis; Pain of toe of left foot; Hammer toe of left foot; Ulcer of left foot, limited to breakdown of skin (HCC) Social History Tobacco UseTypesPacks/DayYears UsedDateSmoking Tobacco: NeverPassive Smoke Exposure: NeverSmokeless Tobacco: NeverAlcohol UseStandard Drinks/WeekComments Never0 (1 standard drink = 0.6 oz pure alcohol)Sex and Gender InformationValue Date RecordedSex Assigned at BirthNot on fileLegal DecGyzw4706/12/2022 6:49 PM EDT Gender IdentityNot on fileSexual OrientationNot on filedocumented as of this encounter Last Filed Vital Signs Vital SignReadingTime TakenCommentsBlood Hrxookqz614/6010 8:53 AM EDT Vvjet7156 8:53 AM EDTTemperature--Respiratory Rate--Oxygen Saturation-- Inhaled Oxygen Concentration--Tdywnp60.5 kg (195 lb)01/27/2025 8:53 AM EDTHeight 182.9 cm (6')01/27/2025 8:53 AM EDTBody Mass Index26.451 8:53 AM EDT documented in this encounter Progress Notes * Juan C Gusman, EDILBERTO - 01/27/2025 9:15 AM EDT Images from the original note were not included. Troy Yap is a 84 y.o. male presents with chief complaint of Toenail Care HPI: HPI SUBJECTIVE: Diabetic/Routine Nail Care: Location: nails on bilateral feet. Severity of symptoms: mild numb/tingle. Onset:gradual. Status:no change. Context: hard to trim, hard to reach. NAILS-thickened, discolored, pain. Relieved by debridement, filing down nails, clipping nails. History of ulcers/wounds: no. PCP Dr Raegan Walker Date of Last visit 09-09-24 Aggravated by shoe gear, pressure Admits left 2 pain, but not as much as rt leg- veinous sx planned next mo per Dr Felder MEDICATIONS: Current Outpatient Medications Medication Instructions allopurinol [...] 20 mg, Daily with evening meal ALLERGIES: Allergies[1] REVIEW OF SYMPTOMS: Review of Systems Constitutional: Negative for chills and fever. Respiratory: Negative for shortness of breath. Cardiovascular: Negative for chest pain. Gastrointestinal: Negative for abdominal pain. Neurological: Negative for dizziness. Psychiatric/Behavioral: Negative for confusion. OBJECTIVE: Visit Vitals BP 126/60 Pulse 62 Ht 6' Wt 195 lb BMI 26.45 kg/m?? Smoking Status Never BSA 2.12 m?? Physical Exam General Examination: alert, well hydrated, in no distress , awake, aware of surroundings. Dermatologic: NAIL PATHOLOGY:digits 1-5 bilateral are intact. atrophic skin with neg digital hair and hyperpigmentation-. HYPERKERATOSIS-left 2 DIPJ severe with large hemorrhagic center.dried blood, 3mm partial thickness wound, no redness or odor. Minimal serous fluid Left med 1st MPJ minimal Nail Pathology: Left Foot: 1 (great toe)Long, Thick, Crumbly, Deformed, Discolored, Brittle, Dystrophic 5 mm. 2Long, Thick, Crumbly, Deformed, Discolored, Brittle, Dystrophic 5mm. 3Long, Thick, Crumbly, Deformed, Discolored, Brittle, Dystrophic 5 mm. 4Long, Thick, Crumbly, Deformed, Discolored, Brittle, Dystrophic, 3mm. 5Long, Thick, Crumbly, Deformed, Discolored, Brittle, Medafugnok5ht. Nail Pathology: Right Foot: 1 (great toe)Long, Thick, Crumbly, Deformed, Discolored, Brittle, Dystrophic 5 mm. 2Long, Thick, Crumbly, Deformed, Discolored, Brittle, Dystrophic 4mm. 3Long, Thick, Crumbly, Deformed, Discolored, Brittle, Dystrophic, 4mm. 4Long, Thick, Crumbly, Deformed, Discolored, Brittle, Dystrophic,3mm. 5Long, Thick, Crumbly, Deformed, Discolored, Brittle, Vxfmluebim3vb. Modifier: -Q9, Parastesias. Vascular: palp pulses bilat [...] right #2 semi-reducible - med DIPJ 2 ulceration and lack of frontal plane stability ASSESSMENT AND PLAN: Assessment/Plan Neuropathy, mycotic nails bilat. HT 2-5 bilat with ulcer left 2 Nails: all thick and dystrophic nails debrided of all affected and loose material Wound Debride: Sterile sharp debridement of wound including loose and necrotic tissue down to healthy viable tissue was performed. Topical lidocaine was used for pain mngmt. Hemostasis was maintainedby pressure and the wound was cleansed and DSD applied. Procedure was tolerated well Daily cleanse and AB drsg planned. Call if any incr redness, swelling, pain or drainage. Risk of infection entering deep tissues or bone leading to amputation reviewed Left 2 correction sugg and to be planned after rt leg sx [1] Allergies Allergen Reactions Indomethacin Other Other reaction(s): Unknown Sulfa Antibiotics Unknown Trimethoprim Other documented in this encounter Plan of Treatment DateTypeDepartmentCare Team (Latest Contact Info)Prcsolmrbwq06/01/2025 10:30 AM ESTOffice Visit [facility] [address] [place] [address] Juan C Gusman DPM [address] [place] [address] 03/11/2025 7:50 AM ESTOffice Visit [facility] [address] [place] [address] Natalie Cox, GABRIEL [address] [place] [address] 04/04/2025 9:45 AM ESTProcedure Visit [facility] [address] [place] [address] Juan C Gusman DPM [address] [place] [address] documented as of this encounter Visit Diagnoses Diagnosis Idiopathic progressive polyneuropathy- Primary Onychomycosis Dermatophytosis of nail Pain of toe of left foot Hammer toe of left foot Ulcer of left foot, limited to breakdown of skin (HCC) documented in this encounter Care Teams Team MemberRelationshipSpecialtyStart DateEnd Date Raegan Walker MD [address] [place] [address] PCP - GeneralFamily Medicine07/29/24documented as of this encounter
--- OUTSIDE RECORDS SUMMARY | 2025-01-27 11:43 | XMS_ITS | Encounter Summary ---
Author Organization [facility] 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) Varicose veins of bilateral lower extremities with pain Procedures Vascular duplex reflux venous insufficiency study bilateral Agapito Felder MD [address] [place] [address] Phone: tel: fax: Referral IDStatusReasonStart DateExpiration DateVisits RequestedVisits [id number] Required - RTA Reason for Visit * Other (Routine) - Not Required - RTASpecialtyDiagnoses / ProceduresReferred By ContactReferred To ContactCardiology Diagnoses 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) Varicose veins of bilateral lower extremities with pain Procedures Vascular duplex reflux venous insufficiency study bilateral Agapito Felder MD [address] [place] [address] Phone: tel: fax: Referral IDStatusReasonStart DateExpiration DateVisits RequestedVisits [id number] Required - RTA51 Encounter Details DateTypeDepartmentCare Team (Latest Contact Info)Xhbzwsszead80/30/2025 12:43 PM EDT - 01/29/2025 11:59 PM EDTHospital Encounter [facility] [address] [place] [address] Agapito Felder MD [address] [place] [address] 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); Varicose veins of bilateral lower extremities with pain Discharge Disposition: Home or Self Care Social History Tobacco UseTypesPacks/DayYears UsedDateSmoking Tobacco: NeverSmokeless [...] Source: IP Abuse ScreeningAnswerDate RecordedRead-Only, Retired: Physical FgfttZbqxzo49/18/2023Read-Only, Retired: Verbal KtnlmLpmupr95/18/2023 Read-Only, Retired: Emotional jksobQqromn33/18/2023Read-Only, Retired: Financial LmcrtVibxlm91/18/2023Read-Only, Retired: Sexual wflsaAzqwrq74/18/2023Sex and Gender InformationValueDate RecordedSex Assigned at TslwvBxer41/30/2023 12:10 PM ESTLegal QycCzxj6205/10/2012 9:49 PM ESTGender CyiuflqfNocu59/30/2023 12:10 PM EST Sexual XecmnletmuaOqepjpuq54/30/2023 12:10 PM ESTdocumented as of this encounter Medications at Time of Discharge MedicationSigDispense QuantityRefillsLast FilledStart DateEnd Date furosemide (LASIX) 20 MG tablet Indications:Shortness of breath,Edema of right lower leg,Edema of left footTake 1 tablet by mouth daily 30 tablet eplerenone (INSPRA) 25 MG tablet Indications:Shortness of breath,Edema of right lower leg,Edema of left footTake 1 tablet by mouth daily 30 tablet atorvastatin (LIPITOR) 10 MG tablet Take 1 tablet by mouth daily 90 tablet rivaroxaban (XARELTO) 20 MG TABS tablet Take 1 tablet by mouth Daily with supper 90 tablet colchicine (COLCRYS) 0.6 MG tablet Take 1 tablet by mouth daily 30 tablet amLODIPine (NORVASC) 2.5 MG tablet Take 1 tablet by mouth daily aspirin 81 MG EC tablet Take 1 tablet by mouth daily Cholecalciferol (VITAMIN D) 50 MCG (2000 UT) CAPS capsule Take 5,000 Units by mouth daily latanoprost (XALATAN) 0.005 % ophthalmic solution INSTILL 1 DROP IN BOTH EYES once DAILY IN THE QPVXQFN8609/27/2021 Omeprazole 20 MG TBEC Take 1 tablet by mouth daily allopurinol (ZYLOPRIM) 300 MG tablet Take 1 tablet by mouth daily ferrous sulfate (IRON 325) 325 (65 Fe) MG tablet Indications:Iron deficiency anemia, unspecified iron deficiency anemia typeTake 1 tablet by mouth daily (with breakfast) 90 tablet documented as of this encounter Plan of Treatment DateTypeDepartmentCare Team (Latest Contact Info)Acsuulfjgao32/29/2026 9:30 AM ESTOffice Visit [facility] Cell [facility] [address] [place] [phone] Miesha Clark, HONEY PROCESSOR - RISK INVESTIGATOR [address] [place] [address] 1 year follow up labs ekg cxr08/03/2025 9:30 AM EDTOffice Visit [facility] VASCULAR Part of [address] [place] [address] Agapito Felder MD [address] [place] [address] [address] [place] [address] 6 mth f/u008/16/2025 10:00 AM EDTOffice Visit [facility] UROLOG[facility] Part of [address] [facility] [place] [address] Chente Lyons PAEdwinaC [address] [place] [address] 1 year PSAdocumented as of this encounter Procedures Procedure NamePriorityDate/TimeAssociated DiagnosisCommentsVAS REFLUX VENOUS INSUFFICIENCY STUDY LPBEQIQIXFxaobst59/30/2025 2:27 PM EDT 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
--- OUTSIDE RECORDS SUMMARY | 2025-02-02 15:00 | XMS_ITS | Encounter Summary ---
Author Organization [facility] 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 Non-[facility]/Non-Partner Specialty My clinical question is: Right ankle ulcer with pain Comments The patient can be scheduled with any member of the group, including the provider with the first available appointments. ____ Vascular studies completed Reason for Visit * ReasonCommentsLeg PainPatient reports increased leg pain and oozing from ulcer. Continued swelling in bilateral lower legs. Completed reflux study. 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) (Primary Dx) Social History Tobacco UseTypesPacks/DayYears UsedDateSmoking Tobacco: NeverSmokeless [...] Source: IP Abuse ScreeningAnswerDate RecordedRead-Only, Retired: Physical XlclbHjkwnn97/18/2023Read-Only, Retired: Verbal QyfvfYhtqzh89/18/2023 Read-Only, Retired: Emotional tekdpOgnmkb70/18/2023Read-Only, Retired: Financial ZpgebEhuwpw75/18/2023Read-Only, Retired: Sexual bnbyaKkrspd30/18/2023Sex and Gender InformationValueDate RecordedSex Assigned at UaajzHydb03/30/2023 12:10 PM ESTLegal AxjGpug2305/10/2012 9:49 PM ESTGender QdjsfnaeIeil48/30/2023 12:10 PM EST Sexual CapdypualuaKnmlhwhw83/30/2023 12:10 PM ESTdocumented as of this encounter Last Filed Vital Signs Vital SignReadingTime TakenCommentsBlood Yxmlatji465/7011 3:04 PM EST Mxvjj212902/02/2025 3:04 PM HXJYopultcoxru80.9 ??C (96.7 ??F)02/02/2025 3:04 PM ESTRespiratory Segg8161 3:04 PM ESTOxygen Saturation--Inhaled Oxygen Concentration--Poltnx88.2 kg (201 lb)02/02/2025 3:04 PM GLHJdufqo540 cm (6' 2 ) 02/02/2025 3:04 PM ESTBody Mass Index25.8102/02/2025 3:04 PM ESTdocumented in this encounter Patient Instructions * Patient Instructions* Shima Mercedes MA - 02/02/2025 2:47 PM EST SURVEY: Thank you for allowing us to care for you today. You may be receiving a survey from [facility] regarding your visit today- electronically or [...] experience a very good one. Thank you. OFFICE SPEC STAFF: Elly Gray, Roseann GARCIA CLINICAL STAFF: Fidelina MENDOZA, Prabha GARCIA, Shima GARCIA, Michell MENDOZA documented in this encounter Progress Notes * Shima Mercedes MA - 02/02/2025 4:[address] Felder requested for us to find the closest wound care clinic since Dr. Fernando is retiring andno longer accepting new patients. Patient requested [place] location. I found a wound care clinic in [place] and spoke with the office, staff stated they are accepting new patients and see head to toe wounds. She did provide information on additional wound care offices as well, depending on wherepatient wound prefer, stated [facility] also have wound care. I spoke with patient'sheilafe and she requested [facility]. I placed the wound care referral for Dr. Felder and faxed it to their office with clinical information. I provided with the office number for [place]. I advised her to have patient call us if any questions. * Agapito Felder MD - 02/02/2025 3:07 PM EST Troy Yap was seen on 02/02/2025 for Chief Complaint Patient presents with Leg Pain Patient reports increased leg pain and oozing from ulcer. Continued swelling in bilateral lower legs. Completed reflux study. . 01/26/25 1st [facility] Vascular visit. About 30 yrs ago had vein stripping, which he thinks was on the left. Then he had ulcer left medial ankle that looked like hamburger . Treated veins with sclerotherapy injection. Ulcer healed and pain went away. Went on a [place] [employer] [place] cruise this summer after which both legs swelled up. Right below knee, left ankle and foot. Both painful. Lasix helped with swelling but pain has persisted. Even before the cruise he had moderately severe pain right lower leg, worsened with standing. Left not as bad. Walking seems worse. No calf claudication. Cramps when dehydrated. Interferes with sleep. 01/19/25 [facility] [place] neg for DVT, SVT. Right leg vv with edema. No hx of blood clot. Son has varicose veins. 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 Has worn compression.continuously Cr 1.5 gfr 46 AF on Xarelto. Follows with Dr Miller. Echo 01/17/25 ef 47, RVSP 64 Mod-severe TR, Severe NIESHA. Metal plate right lower leg volleyball injury. 6'2 63 years UPDATE 02/02/25 He has been having severe pain in the right medial ankle where he now has skin breakdown. Two scabbed areas lateral ankle also very painful but not oozing. His compression is 15-20. Higher compression makes it hurt more. Reflux study only showed < 1 mm refluxing vein with 2.9 sec reflux. He has right fem, pop reflux. Left also has deep reflux. Social History Socioeconomic History Marital status: Spouse [...] Partner Violence: Unknown (05/22/2023) [facility] from [facility] Environment Fear of Current [...] pulmonary disease) (HCC) GERD (gastroesophageal reflux disease) Glaucoma Gout Current Outpatient Medications Medication Sig Dispense Refill FEROSUL 325 (65 Fe) MG tablet TAKE 1 TABLET BY MOUTH DAILY with BREAKFAST 90 tablet 3 furosemide (LASIX) 20 MG tablet Take 1 tablet by mouth daily 30 tablet 11 eplerenone (INSPRA) 25 MG tablet Take 1 tablet by mouth daily 30 tablet 3 atorvastatin (LIPITOR) 10 MG tablet Take 1 tablet by mouth daily 90 tablet 3 rivaroxaban (XARELTO) 20 MG TABS tablet Take 1 tablet by mouth Daily with supper 90 tablet 3 amLODIPine (NORVASC) 2.5 MG tablet Take 1 tablet by mouth daily Cholecalciferol (VITAMIN D) 50 MCG (1999 UT) [...] mouth daily (Patient not taking: Reported on 02/02/2025) 30 tablet 3 aspirin 81 MG EC tablet Take 1 tablet by mouth daily (Patient not taking: Reported on 02/02/2025) No current facility-administered medications for this visit. Physical findings: General- no acute distress, oriented HEENT - no xanthelasma, external ears normal Neck- Supple, no thyromegaly Carotids - no carotid bruits Lungs - Clear to auscultation. CV- Regular rate and rythym, no murmurs rubs or gallops Abdomen - Non tender, non distended, no bruits Skin- warm, dry, no skin breakdown or gangrene Extremities - no edema. Now has medial skin breakdown right ankle. Pulses Right - Posterior tibial: 2+ Pulses Left -Posterior tibial: 2+ Assessment: 1. 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 Troy Yap was seen on 02/02/2025 for Chief Complaint Patient presents with Leg Pain Patient reports increased leg pain and oozing from ulcer. Continued swelling in bilateral lower legs. Completed reflux study. REVIEW OF SYSTEMS Constitutional Weight: absent, A, Fatigue: absent Fever: absent HEENT Ears: normal,Visual disturbance: absent Sore throat: absent, Respiratory Shortness of breath: absent, Cough: absent;, Snoring: absent Cardivascular Chest pain: absent, Leg pain: present,Leg swelling:present, Non- healing wound:present GI Diarrhea: absent, Abdominal Pain: absent Urinary [...] Plan of Treatment DateTypeDepartmentCare Team (Latest Contact Info)Bxhvowbnhcn40/29/2026 9:30 AM ESTOffice Visit [facility] Escalator Installer [address] [place] [address] Miesha Clark, PIPE BOWLS PAINT TRIMMER - WIDE AREA NETWORK ENGINEER [address] [place] [address] 1 year follow up labs ekg cxr08/03/2025 9:30 AM EDTOffice Visit [facility] VASCULAR Part of [address] [place] [address] Agapito Felder MD [address] [place] [address] [address] [place] [address] 6 mth f/u008/16/2025 10:00 AM EDTOffice Visit [facility] UROLOGY Part of [address] [place] [address] Chente Lyons PA-C [address] [place] [address] [address] [place] [address] 1 year PSANameTypePriorityAssociated DiagnosesOrder ScheduleExternal Referral To Wound ClinicOutpatient ReferralRoutine 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
--- OUTSIDE RECORDS SUMMARY | 2025-02-07 10:41 | XMS_ITS | Continuity of Care Document ---
Author Organization [facility] Address [address] [place] [address] Phone Care Team Providers Care Milling Machinist Name Role Phone Raegan Walker MD Primary Care Provider Raegan Walker MD Attending Provider [phone] Prabha Marmolejo APRN Attending Provider Rigoberto Mckinney MD Attending Provider [phone] Care Teams Patient Care Team Team Status: Active Member Role/Relationship Status Dates Raegan Walker MD Primary Care Provider Active Visit Care Team Team Status: Inactive Member Role/Relationship Status Dates Raegan Walker MD Primary Care Provider Active Start: December 08, 2024 End: December 08, 2024Robert Goins ProviderActiveStart: December 08, 2024 End: December 08, 2024 Visit Care Team Team Status: Inactive Member Role/Relationship Status Dates Raegan Walker MD Primary Care Provider Active Start: December 22, 2024 End: December 22, 2024Prabha Marmolejo APRN BUFFING WHEEL INSPECTOR-CAttending ProviderActive Start: December 22, 2024 End: December 22, 2024 Patient Care Team Team Status: Inactive Member Role/Relationship Status Dates Raegan Walker MD Primary Care Provider Active Start: February 07, 2025 End: February 07, 2025Yusef Boyerending ProviderActiveStart: February 07, 2025 End: February 07, 2025 Chief Complaint and Reason for Visit Chief Complaint Admit Date Wellness December 08, 2024 9:25am Right foot pain December 22, 2024 10:27am Reason for Visit Admit Date Dyslipidemia December 08, 2024 9:25am Encounter for immunization November 9:25am Essential (primary) hypertension Septemb 2024 9:25am Iron deficiency anemia December 08 9:25am Medicare annual wellness visit, subseque nt December 08, 2024 9:25am Chronic atrial fibrillation December 082024 9:25am Cellulitis of right foot December 22, 2024 10:27am Ulcer of extremity due to chronic venous insufficiency February 07, 2025 2:12pm Allergies, Adverse Reactions, Alerts Allergen Type Severity Reaction Last Updated Verified Status Comments indomethacin Allergy Unknown Unknown Reaction February 07, 2025 2:23pm Yes Active Onset Date: 06/04/2013 sulfamethoxazole Allergy Unknown Unknown Reaction February 07, 2025 2:23pm Yes Active Onset Date: 02/09/2013 trimethoprim Allergy Unknown Unknown Reaction February 07, 2025 2:23pm Yes Active Onset Date: 02/09/2013 Social History Smoking Status Status Start Date End Date Date of Observa tion Never smoked tobacco (finding) June 05, 2023 1:06pm Observation Status Observation Response Date of Response Legal Sex Male (finding) [facility] 1940 Family History Relationship Condition Age at Onset Recorded Date/T loraine father Malignant neoplasm Unknown motherPerforation of intestineUnknownbrotherParkinson's diseaseUnknownbrother DeceasedUnknownParkinson's diseaseUnknownfatherDeceasedUnknownmotherDeceased Unknown Problems Active Problems Problem Diagnosis/Recorded Date Onset Date Status C omments Elevated PSA January 20, 2024 9:13am Unknown Active Medicare annual wellness visit, subsequentAugust 2023 8:50amUnknownActive Ulcer of extremity due to chronic venous insufficiencyFebruary 07, 2025 3:26pm UnknownActiveScreening PSA (prostate specific antigen)November 19, 2023 10:26am UnknownActiveEncounter for immunizationSeptember 2024 9:47amUnknownActive Perforation of right tympanic membraneJune 2024 9:16amUnknownActiveAnkle woundNovember 2024 8:39amUnknownActivePost-nasal dripAugust 2023 8:53amUnknownActiveDyslipidemiaSeptember 2024 8:59amUnknownActive Uncircumcised maleJanuary 2024 11:36amUnknownActiveDyspneaJanuary 2024 11:37amUnknownActiveDegenerative disc disease, lumbarMarch 2023 7:26am UnknownActiveEssential (primary) hypertensionMarch 2023 7:26amUnknownActive Chronic atrial fibrillationFebruary 2024 10:24amUnknownActiveIron deficiency anemiaMar 2023 7:26amUnknownActiveChronic nasal congestion April 30, 2024 11:37amUnknownActiveAcute balanitis due to infectionJanuary 2024 11:36amUnknownActiveBarretts esophagusMar 2023 7:26amUnknown ActiveBronchitisMarch 2023 1:31pmUnknownActiveCellulitis of right foot December 22, 2024 9:48amUnknownActiveInactive/Resolved Problems Problem Diagnosis/Recorded Date Onset Date Status C omments Chronic cough June 23, 2024 11:58am Unknown [facility] 20[facility] 1:13pmUnknownResolvedBarretts esophagusNovember 2018 7:33amUnknownResolvedProblem List clean-up per request of Phys. EHR Cmte Medications Medication Status Dose Units Route Directions Qty Days Refills S tart Date Stop Date End Date Reason(s) Instructions Adherence Allopurinol 300 mg tablet Discontinued 0 .ROUTE.NOTSYGZ185Udwrxupa 2023 2:21pmMarch 2023 1:12pmTAKE 1 TABLET BY MOUTH DAILYMontelukast 10 mg tabletDiscontinued0.ROUTE.RRUUCOW778Xrawxiwad 2023 12:33pmDecember 2023 10:15amTAKE 1 TABLET BY MOUTH DAILY AT BEDTIMECephalexin 500 mg tskpyalTfkzlylcnxod669PCTXIoytz lqrly284Dhgpc 2024 11:00pmSept2024 8:28amAllopurinol 300 mg xldptlJjmmuhahgnwx508OGHH Tnram886Acf 2024 1:03pmAugust 2024 8:33amAllopurinol 300 mg tablet Zlyxztcwjkfn849RGDZMkpge382Pvtaiu 11th, 2025 8:33amNovember 2024 4:31pm Allopurinol 300 mg zxswjyTdkzws229EZIWVojci170Nvbmcajn 3rd, 2025 4:31pmComplies with drug therapyTriamcinolone Acetonide 0.1 % mkicmGgbwnyrgrzaz8HLWEMHRGKTCJz [facility] 2018 12:00amJuly 2021 10:45amAllopurinol 300 mg letfxnIcuradvglwso958NGGNPftvtBwkkzrti 26th, 2019 12:00amFebruary 2023 2:21pmOmeprazole Magnesium (Prilosec Otc) 20 mg Tablet,Delayed Release (Dr/Ec) Nyhyocmzxisp7QRLVGErusiWirbiizu 26th, 2019 12:00amJuly 2021 10:45amCalcium Carbonate (Calcium 500) 500 mg calcium (1,250 mg) WfcxpnQuixbsgdgbhj250EKBEZtmqt El[place] 2021 11:00pmAugust 2023 9:51amFerrous Sulfate (Ferosul) 325 mg (65 mg iron) ppntzhFpdznbdgifei045JBMJHttkaJlwg 25th, 2022 11:00pmAugust 2023 9:51amFurosemide 20 mg eoojrfNlbkbp35IXLWYlbmeFlur 2021 11:00pm Complies with drug therapyEplerenone 25 mg tsmegyGidtoudcdrbx80YMIAYwtriOqga 25th, 2022 11:00pmAugust 2023 9:52amOmeprazole 20 mg Tablet,Delayed Release (Dr/Ec)Cihtavfvityu61CCNCGsfebKrkt 2021 11:00pmSept2024 8:33amCholecalciferol (Vitamin D3) (Vitamin D3) 50 mcg (2,000 unit) Tablet Zaihlj72BLLUQBbaaqBztx 2021 11:00pmComplies with drug therapyRivaroxaban (Xarelto) 20 mg MehijlFizycoumghip14RHPAKtjhkGlqq 2021 11:00pmSeptember 2024 9:34ammust administer with evening mealRivaroxaban (Xarelto) 20 mg nrrvugPkgipc35WYYPDrzfnIvwdgspsf 2024 9:33ammust administer with evening mealComplies with drug therapyAllopurinol 300 mg kceavyNwugqcouizda916MXBDRHVAWZ DailySamaritan Hospital 2023 1:12pmFebruary 2024 9:26amAzithromycin 250 mg tablet Lxctugbtajrb999CBSEyifhk843Ekqik 2023 12:00amAugust 2023 9:51am Bronchitis Bronchitis, not specified as acute or chronicTake 2 tablets today and then 1 for each additional day for 4 daysMontelukast (Singulair) 10 mg mbnhzvSmycnpuwdgcg14 MGPODaily at ioyccuk850Iuxtcy 2023 11:00pmSeptember 2023 12:33pm Cephalexin 500 mg fdtnzybMcqunhxtsvke636URITRgvth times heseg7528Tmwjwir 2024 12:00amFebruary 2024 9:06amClotrimazole-Betamethasone 1-0.05 % cream Ojhlhpdpxhlu9FBJUNIHJOBZXTBwfpu xuugk6608Tvbojug 2024 12:00amSeptember 2024 8:29amCephalexin 500 mg yzfbzorVfqfzmawzzoa775QAMTIhfki times daily30 100March 2024 2:03pmSeptember 2024 8:28amAlbuterol Sulfate 90 mcg/actuation HFA aerosol qjqdyndKtgrhcimiacn4VNQAVYCMUVGHBZLEYRM 4-6 HOURS as needed for bronchospasm8.50March 2024 11:00pmSeptember 2024 8:33am Cephalexin 500 mg oxvngndIdiuqhgwxnpo871MJDMQcwug ldqqf73981Kygkykjfv 2024 11:00pmNovember 2024 2:24pmCellulitis of right foot Cellulitis of right lower limbAmlodipine 5 mg tabletActive2.5MGPODailyOct2023 11:00pmComplies with drug therapyAspirin 81 mg tablet,delayed release (DR/EC)Vgrlpnomrarf76RSZFMegjuRogxppa 29th, 2024 11:00pmFebruary 2024 11:26amAtorvastatin 10 mg ipcgwgKweoua73LMWHYoqawPfxojyn 29th, 2024 11:00pm Complies with drug therapyAzithromycin 250 mg hffarcTtfvefcnhcln2ROgpntx045 January 27, 2024 11:00pmDeceer 2023 10:14amBronchitis Bronchitis, not specified as acute or chronicTake 2 on day 1 and then take 1 for the next 4 days (days 2-5)Benzonatate 200 mg mjgnzznSvzxvhrhfszd549WOEYMuywf times daily as needed for klofw29627Yqsaahs 29th, 2024 11:00pmDecember 2023 10:14amBronchitis Bronchitis, not specified as acute or chronicAlbuterol Sulfate 2.5 mg /3 mL (0.083 %) solution for nebulizationDiscontinued2.5MGINHALATIONEVERY 4-6 HOURS as needed for shortness of breath or ckamvpzl517Jeqxsws 2023 11:00pmMarch 2024 2:01pmBronchitis Bronchitis, not specified as acute or chronicLatanoprost 0.005 % drops DiscontinuedDROPSOPHTHALMICAdventist Health [facility]2023 12:00amSeptember 2024 8:33amBenzonatate 200 mg tkmhejcLfnlarnoolld208GDEQUxlsh times daily as needed for orblv70342Nhxbfbvh 17th, 2024 12:00amFebruary 2024 9:25amBronchitis Bronchitis, not specified as acute or chronicAzithromycin 250 mg tablet Xkttvmfdhnvx0BBbrwii981Dnotsfcq 17th, 2024 12:00amFebruary 2024 9:05am Bronchitis Bronchitis, not specified as acute or chronicTake 2 on day 1 and then take 1 for the next 4 days (days 2-5)Allopurinol 300 mg vtxisuKtvjaspvrobv255ICTSEjxsj May 07, 2024 9:26amMay 2024 1:03pmMetoprolol Tartrate 25 mg tablet Sczlpmpquvsd07.5MGPODailyFebruary 2024 12:00amFebruary 2024 11:29am Isosorbide Mononitrate 30 mg tablet extended release 24 zjClixxjaixaeu78HJYT DailyFebruary 2024 12:00amFebruary 2024 11:29amMethylprednisolone 4 mg tablets,dose amdwEjnfeapfmnet7BPyfo package kmyfyfaxnj304Egqffycw 2024 12:00amMarch 2024 1:59pmPO PER PKG DIR for 6 daysFerrous Sulfate (Ferosul) 325 mg (65 mg iron) srlzljKvcsbi440GNAXBpwhcRejrwtlha 2024 11:00pmComplies with drug therapyEsomeprazole Magnesium 40 mg capsule,delayed release(DR/EC) Erroyq91GIAJOhykdKlsglcxbj 2024 11:00pmComplies with drug therapy Immunizations Immunization Event Date Not Given Reason Dose Number 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[employer] Processing Lot Number Reason(s) Given Vaccine Information Statement (VIS) Detail Administration Location COVID-19 mRNA, [facility] May 04, 2020 COVID-19 mRNA, [facility]May 25OVID-19 mRNA [facility] ([place])January 04Tap, unspecifiedOctober 2015Fluzone TIV High-Dose 65YR+December 08, [id number] [facility] HospitalFl[facility] TIV High-Dose 65YR+April 07, [id number] QIV High-Dose 65YR+February 09, 2021 CM191RGFcitjht QIV High-Dose 65YR+February 04, 2022UJ919AAFluzone QIV High-Dose 65YR+January 31, [id number], trivalentOctober [id number] influenza, unspecified formulationOctober 2016influenza, unspecified formulationOctober 2017influenza, unspecified formulationNovember 2018influenza, unspecified formulationSeptember 2019Pneumococcal Conjugate Vaccine, 13 valentNovember 2018Pneumococcal Polysacc. Vaccine, 23 valent November 27, 2015Pneumococcal Polysacc. Vaccine, 23 valentNovember 2019 Zoster Vaccine Recombinant, AdjuvantedJanuary [id number] Vaccine Recombinant, AdjuvantedMay [id number], Diphtheria adult, 5 Lf pres free absNovember 2012Tetanus, Diphtheria, Pertussis (Tdap)December 30, 2015 [id number] Influenza VaccineJanuary 2016 Relevant Diagnostic Tests and/or Laboratory Data Laboratory Results Test Collection Date/Time Result Date/Time Result Interpretation Reference Range Result Comment Performing Site Ferritin December 08, 2024 9:42am December 08 9:42am 98.0 ng/mL 26.0-388.0Cholesterol/HDL RatioSept2024 9:42amSept2024 9:42am2.03.3 - 4.4 LOW RISK4.4 - 7.1 AVERAGE RISK7.1 - 11.0 MODERATE RISK>11.0 HIGH RISKUric AcidSept2024 9:42amSept2024 9:42am5.5 mg/dL3.5-7.2Anion GapSept2024 9:42amSept2024 9:42am9.9 Basophils # (Auto)December 08, 2024 9:42amSept2024 9:42am0.1 10 3/uL0.0-0.1Urine Random CreatinineSept2024 9:45amSept2024 9:45am<13.00 mg/dLBelow low .00-300.00Cholesterol LevelSept2024 9:42amSept2024 9:44ez184 mg/dL<=200Albumin/Globulin Ratio December 08, 2024 9:42amSept2024 9:42am0.9Basophils (%) (Auto) December 08, 2024 9:42amSept2024 9:42am1.0 %0.2-2.0Urine Random MicroalbuminSept2024 9:45amSept2024 9:45am<1.3 mg/dL <=30.0HDL CholesterolSept2024 9:42amSept2024 9:42am58 mg/dL40-60> or =60 mg/dl - LOW CARDIOVASCULAR RISK<40 mg/dl - HIGH CARDIOVASCULAR RISKAlbuminSept2024 9:42amSept2024 9:42am 3.4 g/dL3.4-5.0Eosinophils # (Auto)December 08, 2024 9:42amSept2024 9:42am0.1 10 3/uL0.0-0.7LDL Cholesterol, CalculatedSept2024 9:42amSept2024 9:42am52.8 mg/dL<100 mg/dl LDGRXDW295-946 mg/dl NEAR OR ABOVE YVZEHPW309-142 mg/dl BORDERLINE XJBA941-002 mg/dl HIGH>190 mg/dl VERY HIGHAlkaline PhosphataseSept2024 9:42amSept2024 9:42am 124 U/LAbove high wigqaf65-968Sqeepvdoacz (%) (Auto)December 08, 2024 9:42am December 08, 2024 9:42am1.9 %0.9-7.0Triglycerides LevelSept2024 9:42amSept2024 9:42am31 mg/dL<=150Alanine Aminotransferase (ALT/SGPT)December 08, 2024 9:42amSept2024 9:42am28 U/L16-63 HematocritSept2024 9:42amSept2024 9:42am35.3 %Below low ggmoyn82.0-54.0VLDL CholesterolSept2024 9:42amSept2024 9:42am6.2 mg/dLAspartate Amino Transf (AST/SGOT)December 08, 2024 9:42am December 08, 2024 9:42am21 U/G42-55SomplpmriaQktudgjmx 10th, 2025 9:42am December 08, 2024 9:42am11.5 g/dLBelow low soqsra52.0-18.0BUN/Creatinine RatioS2024 9:42amSept2024 9:42am17.5Immature Granulocyte # (Auto)December 08, 2024 9:42amSept2024 9:42am0.01 10 3/uL0.00-0.03Blood Urea NitrogenSept2024 9:42amSept2024 9:42am22.0 mg/dLAbove high normal7.0-18.0Immature Granulocyte % (Auto) December 08, 2024 9:42amSept2024 9:42am0.2 %0.0-0.5Calcium Level December 08, 2024 9:42amSept2024 9:42am8.7 mg/dL8.5-10.1 Lymphocytes # (Auto)December 08, 2024 9:42amSept2024 9:42am0.9 10 3/uLBelow low normal1.2-3.8Chloride LevelSept2024 9:42amSept2024 9:97md891 mmol/A41-028Jcvozowxkav (%) (Auto)December 08, 2024 9:42amSept2024 9:42am15.8 %Below low jfejou54.5-60.0Carbon Dioxide LevelSept2024 9:42amSept2024 9:42am29.5 mmol/L21.0-32.0 Mean Corpuscular HemoglobinSept2024 9:42amSept2024 9:42am31.8 pg25.9-34.0CreatinineSept2024 9:42amSept2024 9:42am1.26 mg/dL0.70-1.30Mean Corpuscular Hemoglobin ConcentSept2024 9:42amSept2024 9:42am32.6 g/dL29.9-35.2Estimated GFR ()December 08, 2024 9:42amSept2024 9:42am>60>=60 mL/min/1.73m 2Mean Corpuscular VolumeSept2024 9:42amSept2024 9:42am97.5 fLAbove high lyqtsq29.0-94.0Estimated GFR (Non- December 08, 2024 9:42amSept2024 9:22sa88Etayf low normal>=60 mL/min/1.73m 2Monocytes # (Auto)December 08, 2024 9:42amSept2024 9:42am0.8 10 3/uL0.3-0.8GlobulinSept2024 9:42amSept2024 9:42am4.0 g/dLMonocytes (%) (Auto)December 08, 2024 9:42amSept2024 9:42am13.7 %Above high normal1.7-12.0Glucose LevelSept2024 9:42amSept2024 9:42am91 mg/jI78-671Erng Platelet VolumeS2024 9:42amSept2024 9:42am9.5 fL9.5-13.5Potassium Level December 08, 2024 9:42amSept2024 9:42am4.4 mmol/L3.5-5.1 Neutrophils # (Auto)December 08, 2024 9:42amSept2024 9:42am3.9 10 3/uL1.4-6.5Sodium LevelSept2024 9:42amSept2024 9:15xi816 mmol/O349-972Tejbjivmwfq (%) (Auto)December 08, 2024 9:42amSept2024 9:42am67.4 %43.0-75.0Total BilirubinSept2024 9:42amSept2024 9:42am1.1 mg/dLAbove high normal0.2-1.0Platelet CountS2024 9:42amSept2024 9:17on110 10 3/lF885-671Cagnc ProteinSept2024 9:42amSept2024 9:42am7.4 g/dL6.4-8.2Red Blood Count December 08, 2024 9:42amSept2024 9:42am3.62 10 6/uLBelow low normal4.70-6.10Red Cell Distribution WidthSept2024 9:42amSept2024 9:42am13.4 %11.0-15.0Corrected White Blood CountSept2024 9:42amSept2024 9:42am5.8 10 3/uL4.0-11.0 Vital Signs Vital Reading Result Reference Range Collection Date/Time Height 70 [in_i] December 08, 2024 8:63rkRdzrrk64.64 kgSept2024 8:28amHeart Rate61 /wtu62-777IqzhtkoilDecember 08, 2024 8:28amRespiratory rate12 /guw19-99Hbvkjuurf2024 8:28amOxygen saturation by Pulse vrfqxuck74 %95-2024 8:28amBP Nhozkwqw385 mm[Hg]100-140December 08, 2024 8:28amBP Ehoolciqi72 mm[Hg]60-100December 08, 2024 8:28amBMI (Body Mass Index)29.2 kg/h8Avghnmonj2024 8:69azKhsnie08 [in_i]December 22, 2024 9:09ukFdypat39.53 kg December 22, 2024 9:28amBody Uigklhbuyxm03.5 [degF]97.6-99.0December 22, 2024 9:28amHeart Rate71 /pnm54-358VwjuqrrzzDecember 22, 2024 9:28amOxygen saturation by Pulse %95-100December 22, 2024 9:28amBP Xmjqplae659 mm[Hg] 100-140December 22, 2024 9:28amBP Qeqzfzskj04 mm[Hg]60-100December 22, 2024 9:28amBMI (Body Mass Index)29.2 kg/a6Nufiitidg2024 9:92joGiqaki12 [in_i]February 07, 2025 3:58toEhsjvq780.80 kgFebruary 07, 2025 3:01pmBody Warvzskxlxx49.3 [degF]97.6-99.0February 07, 2025 3:01pmHeart Rate76 /aml37-657 February 07, 2025 3:01pmOxygen saturation by Pulse ucuyrfpk79 %95-100February 07, 2025 3:01pmBP Rrwlwyjd567 mm[Hg]100-140February 07, 2025 3:01pmBP Ijfudntmj77 mm[Hg]60-100February 07, 2025 3:01pmBMI (Body Mass Index)37.8 kg/g2EtnrnbpwFebruary 07, 2025 3:01pm Advance Directives Advance Directive Response Recorded Date/ Time Advance Directives No January 10:35am Insurance Providers Guarantor Troy Yap Address [address] [facility] [address]Sxpaupw Info.Home Phone: Coverage Status Update:2024 Payer Group Member ID Coverage Type Subscriber Relationship to Subscriber Effective Date Expiration Date MMO Id: [id number] L Reichert Id: [id number] [address] Home Phone: Email: [email or web address] Medical Centeredicare [id number] L Reichert Id: [id number] [facility] [address] Home Phone: Email: [email or web address] Health Claims [id number] L Reichert Id: [id number] [facility] [address] [facility] [address] Home Phone: Email: [email or web address] Encounter Location(s) Arrival/Admit Date Discharge/Departure Date Discharge/Departure Disposition Provider(s) Departed Physician/ Provider Office Visit -[facility] December 08, 2024 9:25am December 08, 2024 10:40am Discharged to home care or self care (routine discharge) Raegan Walker MD Departed Physician/ Provider Office Visit -[facility] December 22, 2024 10:27am December 22, 2024 10:53am Discharged to home care or self care (routine discharge) Prabha Marmolejo APRN INFORMATION SECURITY MANAGER Departed Physician/ Provider Office Visit -[facility] [place] February 07, 2025 2:12pm February 07, 2025 3:40pm Discharged to home care or self care (routine discharge) Rigoberto Mckinney MD Recent Diagnosis Onset Date Admit Date Dyslipidemia Unknown December 08, 2024 9:25am Encounter for immunization Unknown 2024 9:25am Essential (primary) hypertension Unknown December 08, 2024 9:25am Iron deficiency anemia Unknown December 08, 2024 9:25am Medicare annual wellness visit, subsequent Unkno wn December 08, 2024 9:25am Chronic atrial fibrillation Unknown Nov 9:25am Cellulitis of right foot Unknown er 2024 10:27am Ulcer of extremity due to ch ronic venous insufficiency Unknown February 07, 2025 2:12pm Assessments Diagnosis Onset Date Resolution Status Admit Date Dyslipidemia acuteSe2024 9:25amEncounter for immunizationacuteDecember 08, 2024 9:25amEssential (primary) hypertensionacuteDecember 08, 2024 9:25amIron deficiency anemiaacuteSe2024 9:25amMedicare annual wellness visit, subsequentacuteSe2024 9:25amChronic atrial fibrillationchronic December 08, 2024 9:25amCellulitis of right footacuteSept2024 10:27amUlcer of extremity due to chronic venous insufficiencyacuteNov2024 2:12pm Plan of Treatment Author Prabha Marmolejo [facility]September [facility] 1:29pm Take antibiotic as directed, and complete full course even if symptoms are no longer present. Take ibuprofen/Tylenol as needed for pain and discomfort. Encouraged patient to use moist warm compresses on area to help facilitate draining. Wash area with warm soapy water twice daily, and pat dry. Cover area with bandage if potential exposure to dirty environment and while working. May leave area open to air when at home. Patient instructed to monitor symptoms closely. Patient should follow up with PCP or return to [facility] if symptoms persist or worsen despite treatment, or if pt begins to develop fluctuant abscess that may need I&D. Patient verbalized understanding and agreement with treatment plan. Author Rigoberto Mckinney [facility] HospitalAutredNov2024 3:27pmIt has been several years since he has been to see us and he has now a recurrent venous ulcer. We will proceed with a full functional venous duplex examination to look for targets for potential intervention. I advised him to begin using his graded compression stocking again and to treat the small open area with Aquaphor covered with some Telfa. I will see him back once his ultrasound is complete and we will assess the findings together. If there are no areas of reflux for intervention he may benefit from sclerotherapy under the wound bed. Author [facility] 9:47amReviewed notes from Dr. Vergara. His LE have resolved w the furosemide. Continue present meds and check renal function. stable - continue lipitor, check labs. check ferritin w CBC. Personalized health advice was given to the beneficiary to health education of preventative counseling services or programs aimed at reducing identified risk factors and improving self-management or community-based lifestyle interventions to reduce health risks and promote self-management and wellness, including physical activity and nutrition. Continue present medications and followup w Dr. Vergara. Future Tests Future scheduled test information is unavailable Pending Tests Test Name Ordered Date Scheduled Date US venous duplex LE RT February 07, 2025 3:37p m Comprehensive Metabolic PanelSept2024 8:57am Future Visits Future appointment information is unavailable Future Procedures Procedure Name Ordered Date Scheduled Date Uric Acid December 08, 2024 8:57am Future Medications Future medication information is unavailable Patient Instructions Patient instructions are unavailable
--- OUTSIDE RECORDS SUMMARY | 2025-02-08 13:52 | XMS_ITS | Encounter Summary ---
Author Organization [facility] Address [address], [address] [place] [address] Care Team Providers Care Terminal Superintendent Name Role Phone Raegan Walker MD Primary Care Provider Reason for Visit * ReasonCommentsMedication Refill Encounter Details DateTypeDepartmentCare Team (Latest Contact Info)Ddprvifxkch33/03/2025Refill [facility] [address] [place] [address] Miesha Clark, COOPERATIVE EXTENSION AGENT - HIGH PRESSURE CLEANER [address] [place] [id number] Medication Refill Social History Tobacco UseTypesPacks/DayYears UsedDateSmoking Tobacco: NeverSmokeless [...] Source: IP Abuse ScreeningAnswerDate RecordedRead-Only, Retired: Physical TkwgxXxdqep03/18/2023Read-Only, Retired: Verbal KpcptZewpta83/18/2023 Read-Only, Retired: Emotional wvbvkBkjiyg59/18/2023Read-Only, Retired: Financial EqfncEfwwyh73/18/2023Read-Only, Retired: Sexual nuywmSavwbt49/18/2023Sex and Gender InformationValueDate RecordedSex Assigned at QilxpKaqn12/30/2023 12:10 PM ESTLegal NnuWxqc1105/10/2012 9:49 PM ESTGender LrefdepfFfeu82/30/2023 12:10 PM EST Sexual VugtzgzcupuSolnfidu63/30/2023 12:10 PM ESTdocumented as of this encounter Plan of Treatment DateTypeDepartmentCare Team (Latest Contact Info)Wzshzrxwcys65/29/2026 9:30 AM ESTOffice Visit [facility] [address] [place] [phone] Miesha Clark, COOPERATIVE EXTENSION AGENT - HIGH PRESSURE CLEANER [address] [place] [address] 1 year follow up labs ekg cxr08/03/2025 9:30 AM EDTOffice Visit [facility] VASCULAR Part of [address] [place] [address] Agapito Felder MD [address] [place] [address] [address] [place] [address] 6 mth f/u008/16/2025 10:00 AM EDTOffice Visit [facility] UROLOGY Part of [address] [place] [address] Chente Lyons PA-C [address] [place] [address] [address] [place] [address] 1 year PSAdocumented as of this encounter Visit Diagnoses Diagnosis Iron deficiency anemia, unspecified iron deficiency anemia type documented in this encounter Additional Health Concerns AssessmentNoted TimeA fall risk assessment has been completed for the patient 01/26/2025 9:38 AM EDTA Body Mass Index follow-up plan has been documented for the ditjgje5412/06/2021 1:41 PM EDTdocumented as of this encounter Care Teams Team MemberRelationshipSpecialtyStart DateEnd Date Raegan Walker MD PCP - GeneralFamily Medicine09/18/19documented as of this encounter
--- OUTSIDE RECORDS SUMMARY | 2025-02-08 13:52 | XMS_ITS | Encounter Summary ---
Author Organization [facility] Address [address] [place] [address] Care Team Providers Care Manager Terminal Name Role Phone Raegan Walker MD Primary Care Provider [phone] Encounter Details DateTypeDepartmentCare Team (Latest Contact Info)Nuotajpgemz79/30/2025amboo flowsheet [facility] [address] [place] [address] Juan C Gusman, DPM [address] [place] [address] Social History Tobacco UseTypesPacks/DayYears UsedDateSmoking Tobacco: NeverPassive Smoke Exposure: NeverSmokeless Tobacco: NeverAlcohol UseStandard Drinks/WeekComments Never0 (1 standard drink = 0.6 oz pure alcohol)Sex and Gender InformationValue Date RecordedSex Assigned at BirthNot on fileLegal SnkFlzv2306/12/2022 6:49 PM EDT Gender IdentityNot on fileSexual OrientationNot on filedocumented as of this encounter Plan of Treatment DateTypeDepartmentCare Team (Latest Contact Info)Kpvogbyneqs51/01/2025 10:30 AM ESTOffice Visit [facility] [address] [place] [address] Juan C Gusman, DPM [address] [place] [address] 03/11/2025 7:50 AM ESTOffice Visit [facility] [address] [place] [address] Natalie Cox, GABRIEL [address] [place] [address] 04/04/2025 9:45 AM ESTProcedure Visit [facility] [address] [place] [address] Juan C Gusman DPSteffany [address] [place], [place] [phone] documented as of this encounter Visit Diagnoses Not on filedocumented in this encounter Care Teams Team MemberRelationshipSpecialtyStart DateEnd Date Raegan Walker MD [address] [facility] [place] [address] PCP - GeneralFamily Medicine07/29/24documented as of this encounter
--- OUTSIDE RECORDS SUMMARY | 2025-02-08 13:52 | XMS_ITS | Clinical Summary ---
Author Organization [facility] Address [facility] [place] [address] Care Team Providers Care Casino Games Dealer Name Role Phone Raegan Walker MD Primary Care Provider [phone] Allergies No known active allergies Medications MedicationSigDispense QuantityRefillsLast FilledStart DateEnd DateStatus allopurinoL (ZYLOPRIM) 300 MG tablet Take 1 (one) tablet (300 mg total) by mouth daily .Active aspirin 81 mg chewable tablet Chew and Swallow 1 (one) tablet (81 mg total) daily .01/01/2024ctive cholecalciferol, vitamin D3, 50 mcg (2,000 unit) cap Take 2.5 (two and a half) capsules by mouth daily .10/23/2021ctive furosemide (LASIX) 20 MG tablet Take 1 (one) tablet (20 mg total) by mouth daily .10/23/2021ctive omeprazole 20 mg TbEC Take 1 (one) tablet (20 mg total) by mouth daily .Active Xarelto 20 mg Tab Take 1 (one) tablet (20 mg total) by mouth daily with dinner .Active atorvastatin (LIPITOR) 10 MG tablet Take 1 (one) tablet (10 mg total) by mouth daily . 30 tablet ctive amLODIPine (NORVASC) 5 MG tablet Take 0.5 (one-half) tablet (2.5 mg total) by mouth daily . 15 tablet ctive Active Problems No known active problems Social History Tobacco UseTypesPacks/DayYears UsedDateSmoking Tobacco: NeverAlcohol UseStandard Drinks/WeekCommentsNo0 (1 standard drink = 0.6 oz pure alcohol)Sex and Gender InformationValueDate RecordedSex Assigned at BirthNot on fileLegal SexMale 12/30/2015 12:52 PM EDTGender IdentityNot on fileSexual OrientationNot on file Last Filed Vital Signs Vital SignReadingTime TakenCommentsBlood Goixfmsb982/6601/23/2024 12:25 PM EDT Daxkx061201/23/2024 12:25 PM CLKUcgkbjytavp74.7 ??C (98 ??F)10/05/2024 2:04 PM EDT Respiratory Jbyz8167 8:28 AM EDTOxygen Vbyjmozwcj05%01/23/2024 11:54 AM EDTInhaled Oxygen Concentration--Liqzbj21 kg (205 lb)10/05/2024 2:04 PM EDT Iqxzun046 cm (6' 2 )01/23/2024 8:28 AM EDTBody Mass Index26.321 8:28 AM EDT Plan of Treatment Health MaintenanceDue DateLast DoneCommentsMedicare Wellness Visit1944 Depression Screening/Follow-Up (PHQ-2/9)1953Falls Risk Assessment 2006RSV Vaccines (1 - 1-dose 75+ series)2016COVID-19 Vaccine ( season), 05/25/2020, 05/04/2020Influenza Vaccine (#1)5004/07/2024, 01/31/2023, 02/04/2022, Additional history exists Tetanus/Diphtheria/Pertussis (3 - Td or Tdap)61, 12/30/2015, 02/01/2013Pneumococcal Vaccine: 50+ UsjmpXkkzduuge11/01/2021, 02/14/2020, 02/08/2019, Additional history existsZoster XisvabqqGgjmtqcik91/05/2025, 04/07/2024HIB VaccinesAged OutNo longer eligible based on patient's age to complete this topicHPV VaccinesAged OutNo longer eligible based on patient's age to complete this topicHepatitis A VaccinesAged OutNo longer eligible based on patient's age to complete this topicHepatitis B VaccinesAged OutNo longer eligible based on patient's age to complete this topicIPV VaccinesAged OutNo longer eligible based on patient's age to complete this topicMeningococcal ACWY VaccineAged OutNo longer eligible based on patient's age to complete this topic Meningococcal B VaccineAged OutNo longer eligible based on patient's age to complete this topicRotavirus VaccinesAged OutNo longer eligible based on patient's age to complete this topic Insurance * Guarantor: Troy YapAccount TypeRelation to PatientDate of BirthPhone Billing AddressPersonal/VfztleYbdv87/[birth year][address] [address] Advance Directives For more information, please contact: [phone] * Full Code (Latest Code Status on File) Date ActivatedDate TvdbdbkqxdaNiblaujf39/25/2024 8:15 AM01/23/2024 10:43 AM Care Teams Team MemberRelationshipSpecialtyStart DateEnd Date Raegan Walker MD [address] [place] [address] [place] [address] PCP - GeneralFamily Awzjbuvl04/1/16
--- OUTSIDE RECORDS SUMMARY | 2025-02-08 13:52 | XMS_ITS | Patient Health Record ---
Author Organization [facility] [place] Address [address] [place] [address] Care Team Providers Care Truck Trailer Mechanic Name Role Phone Raegan Walker Primary Care Provider Bladimir Fischer [phone] Allergies Allergen (clinical drug ingredient) Drug/Non Drug Allergy documented on EMR Reaction Allergy Type Onset Date Status Sulfacet-RunknownDrug AllergyActiveindomethacinIndomethacinunknownDrug Allergy ActivetrimethoprimTrimethoprimunknownDrug AllergyActive Reason For Referral No Information Medications Medication SIG (Take, Route, Frequency, Duration) Notes Start Date End Date Status Xarelto 20 MG TAKE 1 TABLET BY MOUTH DAILY wit h supper Oral; Duration: 90 Days ActiveAlbuterol Sulfate (2.5 MG/3ML) 0.083%INHALE 2.5ml's EVERY 4 TO 6 HOURS NEEDED SHORTNESS OF BREATH or FOR WHEEZING Inhalation; Duration: 6 Days Not-TakingFeroSul 325 (65 Fe) MGTAKE 1 TABLET BY MOUTH DAILY with BREAKFAST Oral; Duration: 30 DaysActiveFurosemide 20 MGTAKE 1 TABLET BY MOUTH DAILY Oral; Duration: 90 DaysActiveAtorvastatin Calcium 10 MGTAKE 1 TABLET BY MOUTH DAILY Oral; Duration: 30 DaysActiveEsomeprazole Magnesium 20 MG1 capsule 1/2 to 1 hour before morning meal Orally Once a dayActiveAllopurinol 300 MGOral; Duration: 90 DaysActiveClotrimazole-Betamethasone 1-0.05 %APPLY topically TWICE DAILY FOR 7 DAYS External; Duration: 7 DaysNot-TakingamLODIPine Besylate 2.5 MGOral; Duration: 74 DaysActiveLatanoprost 0.005 %INSTILL 1 DROP IN BOTH EYES once a day IN THE EVENING Ophthalmic; Duration: 75 DaysNot-TakingAlbuterol Sulfate HFA 108 (90 Base) MCG/ACTInhalation; Duration: 17 DaysNot-TakingCephalexin 500 MGTAKE 1 CAPSULE BY MOUTH TWICE DAILY Oral; Duration: 5 DaysNot-Taking Immunizations Vaccine Route Administration Date Status Comme nts Flu, Fluad (64358) 65 yrs + High Dose Seasonal (9033-5437) Unknown 04/07/2024 Administered Pneumococcal (Pneumovax 23)Obxbrvw2911/27/20154828DubduwtnnubqQXIU-TTB-1 (COVID 19 Pfizer 30mcg/0.3mL)Tkgxere5901/04/2021dministeredTdap (Boostrix)Voxeltm0112/30/2015 AdministeredZOSTER (SHINGLES) VACCINE (HZV)Cuacbdm2404/07/2024dministered Social History Tobacco Use: Social History Observation Description Date Details (start date - stop date) Never Smoker NA - NA Tobacco Control (Standard) Question Answer Notes Tobacco use: Nonsmoker Problems Problem Type SNOMED Code ICD Code Onset Dates Problem Status W/U Status Risk Notes Problem Gastroesophageal ref lux disease (990406992) GERD (gastroesophageal reflux disease) (K21.9) ActiveconfirmedProblemCoronary artery disease (77901981)CAD (coronary artery disease) (I25.10)ActiveconfirmedProblemHiatal hernia (27409521)Hiatal hernia (K44.9)ActiveconfirmedProblemIron deficiency anemia (91648658)GUS (iron deficiency anemia) (D50.9)ActiveconfirmedProblemBarrett's esophagus (046896585) Alvares's esophagus (K22.70)ActiveconfirmedProblemChronic atrial fibrillation (946735365)Chronic atrial fibrillation (I48.20)Activeconfirmed Vital Signs Heart Rate 59 /min 07/12/2024 Qqjrthrpbyk92.9 degrees Mgjfohbtdv57/14/2025Respiratory Rate16 /min07/12/2024 Blood pressure mm Hg07/12/20249649Yjmbaerc88 %07/12/20248539Qcfasi68 in 07/12/2024lood pressure eassxhsd700 mm Hg07/12/20247041Lxrabm040.4 lbs07/12/2024MI 27.6 kg/m207/12/2024 Encounters Encounter Location Date Provider Diagnosis [facility] [address] [place] [address] 07/12/2024 Bladimir Carrillo Chronic cough R05.3 ; Abnormal CXR (chest x-ray) R93.89 ; Hiatal hernia K44.9 ; Chronic atrial fibrillation I48.20 ; GUS (iron deficiency anemia) D50.9 and CAD (coronary artery disease) I25.10 [facility] [address] [place] [address] 06/28/2024 Bladimir Carrillo Assessments Encounter Date Diagnosis (ICD Code) Assessment Notes Treatment Notes Treatment Clinical Notes Section Notes 07/12/2024 Abnormal CXR (chest x-ray) (ICD- 10 - R93.89) CT abdomen/pelvis 07/12/2022 noted opacities in the RLL, with scarring on CXR 04/02/2024 & 06/23/2024. With chronic cough, recommended ordering a dedicated chest CT for further evaluation, but he refused. 07/12/2024hronic cough (ICD-10 - R05.3) Patient complains of [...] and this was refused as well. I broughtup the abnormal CT abdomen & CXRs and recommended ordering a dedicated chest CT - this was refused as well. He asked about referral to ENT - I explained this can be done, but more likely than not, they are going to repeat what I said, with exception of additionally performing a nasolaryngoscopy. For now, he may return PRN. 07/12/2024Hiatal hernia (ICD-10 - K44.9) Large hiatal hernia. GERD/LPR symptoms are controlled, per patient, with Nexium. 5Chronic atrial fibrillation (ICD-10 - I48.20)07/12/2024IDA (iron deficiency anemia) (ICD-10 - D50.9)5CAD (coronary artery disease) (ICD- 10 - I25.10) Plan Of Treatment No Information Insurance Providers Payer Name Payer Address Payer Phone Subscriber Number Group Number Insured Name Patient Relationship to Insured Coverage Start Date Coverage End Date [place]IC[place] [address] [place] [address] [id number] Ant Yapf - patient is the [id number] 2006MMO MEDICARE SUPPLEMENT [address] [place] [id number], [place] Self - patient is the insured Medical (General) History Medical History History ICD Code CAD (coronary artery disease) I25.10 Chronic atrial fibrillation I48.20 HTN (hypertension) I10 Alvares's esophagus K22.70 Hiatal hernia K44.9 GERD (gastroesophageal reflux disease) K 21.9 GUS (iron deficiency anemia) D50.9 Gout M10.9 Bilateral cataracts H26.9 History of skin cancer Z85.828 Surgical History Surgery Date(Month/Year) Tonsillectomy Varicose vein xkfdfbyfajqznHngcnorrgrn7135Mbmyrg fusion1Right fsj7551 Bilateral shoulder nwcswsmiacn3584Sdasmv8061Blrpj nwshq9840Fspd heart hfikmitritrghrp45/25/2024
--- OUTSIDE RECORDS SUMMARY | 2025-02-08 13:52 | XMS_ITS | Clinical Summary ---
Author Organization [facility] Address [address] [place] [address] Care Team Providers Care Flask Pusher Name Role Phone Unavailable Primary Care Provider Unavailabl e Social History Tobacco UseTypesPacks/DayYears UsedDateSmoking Tobacco: Never AssessedUT Safety & EnvironmentAnswerDate RecordedFear of Current or Ex-PartnerNot on file 05/22/2023Emotionally AbusedNot on file05/22/2023hysically AbusedNot on file 05/22/2023Sexually AbusedNot on file05/22/2023hysically or Sexually AbusedNot on file05/22/2023Sex and Gender InformationValueDate RecordedSex Assigned at BirthNot on fileLegal EplZtvk4809/27/2021 12:44 AM EDTGender IdentityNot on file Sexual OrientationNot on file Last Filed Vital Signs Vital SignReadingTime TakenCommentsBlood Pressure--Pulse--Temperature-- Respiratory Rate--Oxygen Saturation--Inhaled Oxygen Concentration--Gbphol66.7 kg (200 lb)10/10/2021 1:31 PM HUXEbuptc975.2 cm (6' 2.5 )10/10/2021 1:30 PM EDTBody Mass Index25.3307 1:30 PM EDT Plan of Treatment Health MaintenanceDue DateLast DoneCommentsMedicare Annual Wellness (AWV) 2Depression Ywbubyhdr87[birth year]09/1953Adult Vdcvshv6405/09/1963Pneumococcal Vaccine: 50+ Years (1 of 1 - PCV)1991Zoster Vaccines (1 of 2)1991 Fall Risk Wvcnumzyh43/09/2007COVID-19 Vaccine (1 - 2024- season)2024 Influenza Vaccine (#1)2024HIB VaccinesAged OutNo longer eligible based on patient's age to complete this topicHPV VaccinesAged OutNo longer eligible based on patient's age to complete this topicIPV VaccinesAged OutNo longer eligible based on patient's age to complete this topicMeningococcal B VaccineAged OutNo longer eligible based on patient's age to complete this topicMeningococcal VaccineAged OutNo longer eligible based on patient's age to complete this topic Rotavirus VaccinesAged OutNo longer eligible based on patient's age to complete this topic Insurance * Guarantor: Troy YapAccokalpana TypeRelation to PatientDate of BirthPhone Billing AddressPersonal/GtiwqvAavm39/[birth year][id number] [address]
--- OUTSIDE RECORDS SUMMARY | 2025-02-08 13:52 | XMS_ITS | Encounter Summary ---
Author [facility] Address [address], [address] [place] [address] Care Team Providers Care Certified Corporate Travel Executive Name Role Phone Raegan Walker MD Primary Care Provider [phone] Reason for Visit * ReasonOnset DateCommentsincreased pain01/31/2025 Encounter Details DateTypeDepartmentCare Team (Latest Contact Info)Trqhdjntpud42/03/2025Telephone [facility] VASCULAR Part of [address] [place] [address] Agapito Felder MD [address] [place] [address] [address] [place] [address] increased pain Social History Tobacco UseTypesPacks/DayYears UsedDateSmoking Tobacco: [...] Source: IP Abuse ScreeningAnswerDate RecordedRead-Only, Retired: Physical HxlmdEagqlp84/18/2023Read-Only, Retired: Verbal SkacuSjlfse22/18/2023 Read-Only, Retired: Emotional pwkxxVmxuds10/18/2023Read-Only, Retired: Financial DnjrqAfsemk86/18/2023Read-Only, Retired: Sexual ayrndJewoyo81/18/2023Sex and Gender InformationValueDate RecordedSex Assigned at RfdhbAfoq01/30/2023 12:10 PM ESTLegal BbvBfhx7705/10/2012 9:49 PM ESTGender TzandqmjWyax12/30/2023 12:10 PM EST Sexual HcrguwqccopUjefvrmo93/30/2023 12:10 PM ESTdocumented as of this encounter Plan of Treatment DateTypeDepartmentCare Team (Latest Contact Info)Breymxntrnb70/29/2026 9:30 AM ESTOffice [facility] [address] [place] [address] Miesha Clark, DRIER HELPER - METHODS SPECIALIST ENGINEER [address] [place] [address] 1 year follow up labs ekg cxr08/03/2025 9:30 AM EDTOffice Visit [facility] VASCULAR Part of [address] [place] [address] Agapito Felder MD [address] [place] [address] [address] [place] [address] 6 mth f/u008/16/2025 10:00 AM EDTOffice Visit [facility] UROLOGY Part of [address] [place] [address] Chente Lyons PAEdwinaC [address] [place] [address] [address] [place] [address] 1 year PSAdocumented as of this encounter Visit Diagnoses Not on filedocumented in this encounter Additional Health Concerns AssessmentNoted TimeA fall risk assessment has been completed for the patient 01/26/2025 9:38 AM EDTA Body Mass Index follow-up plan has been documented for the alxmrdl91/10/2021 1:41 PM EDTdocumented as of this encounter Care Teams Team MemberRelationshipSpecialtyStart DateEnd Date Raegan Walker MD PCP - GeneralFamily Medicine09/18/19documented as of this encounter
--- OUTSIDE RECORDS SUMMARY | 2025-02-08 13:52 | XMS_ITS | Clinical Summary ---
Author Organization [facility] Address [address] [place] [address] Care Team Providers Care Signal Person Name Role Phone Raegan Walker MD Primary Care Provider [phone] Allergies Active AllergyReactionsCriticalityNoted DateComments Sulfamethoxazole-QatnoedfuvkfHojwayr46/30/1854RzajqztmzvcaBptsdih90/30/2022 Medications MedicationSigDispense QuantityRefillsLast FilledStart DateEnd DateStatus rivaroxaban (XARELTO) 20 mg tablet Take 20 mg by mouth daily with dinner.Active allopurinol (ZYLOPRIM) 300 mg tablet Take 300 mg by mouth once daily.Active meloxicam (MOBIC) 15 mg tablet Take 15 mg by mouth once daily.Active furosemide (LASIX) 20 mg tablet Take 20 mg by mouth once daily.Active fluticasone/umeclidin/vilanter (TRELEGY ELLIPTA INHALATION) Inhale as instructed.Active ferrous sulfate 325 mg (65 mg iron) tablet Take 325 mg by mouth.12/18/2020ctive Omeprazole Magnesium 20 mg tablet Take 20 mg by mouth.Active spironolactone (ALDACTONE) 25 mg tablet Take 1 tablet by mouth once daily.12/14/2020ctive CALCIUM ORAL Take by mouth.Active esomeprazole (NEXIUM) 20 mg capsule Take 20 mg by mouth DAILY (6 AM).Active Social History Tobacco UseTypesPacks/DayYears UsedDateSmoking Tobacco: NeverSmokeless Tobacco: NeverAlcohol UseStandard Drinks/WeekCommentsNot Currently0 (1 standard drink = 0.6 oz pure alcohol)Sex and Gender InformationValueDate RecordedSex Assigned at BirthNot on fileLegal OjxWiby7806/26/2021 12:50 PM EDTGender IdentityNot on file Sexual OrientationNot on file Last Filed Vital Signs Vital SignReadingTime TakenCommentsBlood Qlzizleg713/6404 10:53 AM EDT Touzn765407/02/2021 10:53 AM KJXKvtixrdpymm56.2 ??C (97.2 ??F)07/02/2021 10:53 AM EDTRespiratory Ypaq174307/02/2021 10:53 AM EDTOxygen Fdhrkwurvr91%07/02/2021 10:53 AM EDTInhaled Oxygen Concentration--Prhmnv01.7 kg (208 lb 12.8 oz)07/02/2021 10:53 AM CRGJmijvi687 cm (6' 2.8 )07/02/2021 10:53 AM EDTBody Mass Index26.24 07/02/2021 10:53 AM EDT Plan of Treatment Health MaintenanceDue DateLast DoneCommentsAnxiety Znmnjtrra49/09/1960Depression Qrgyfcgrp22/09/1960Pneumococcal Vaccine: 50+ (1 of 1 - PCV)1991Shingrix Vaccine (1 of 2)1991RSV Vaccine (1 - 1-dose 75+ series)2016Advance Directive Ccnsqbxyxb02/01/2025Diabetes Uwchqvcre90/04/676591/06/2021, 12/14/2020, 10/20/2020, Additional history existsCovid-19 Vaccine (1 - 2024- season)2024Influenza Vaccine (#1)2024DTaP,Tdap,Td Vaccine (2 - Td or Tdap)/03/2015 Procedures Procedure NamePriorityDate/TimeAssociated DiagnosisCommentsCOMPREHENSIVE METABOLIC WWEZYImklafg65/04/2022 10:49 AM EDT Normocytic anemia from Last 3 Months or Most Recently Relevant to Health Maintenance Results * (ABNORMAL) COMP METABOLIC PANEL (07/02/2021 10:49 AM EDT)ComponentValueRef RangeTest MethodAnalysis TimePerformed AtPathologist SignatureProtein, Total 7.66.3 - 8.0 g/dL07/02/2021 11:27 AM [facility] Albumin4.53.9 - 4.9 g/dL07/02/2021 11:27 AM [facility] LABCalcium, Total9.78.5 - 10.2 mg/dL07/02/2021 11:27 AM [facility] LABBilirubin, Total0.50.2 - 1.3 mg/dL07/02/2021 11:27 AM [facility] LABAlkaline Sjwacyeflwv165(H)38 - 113 U/L07/02/2021 11:27 AM [facility] PRQESN7108 - 40 U/L07/02/2021 11:27 AM [facility] JHQPEY8956 - 54 U/L07/02/2021 11:27 AM [facility] SHUKwyihxh964(H)74 - 99 mg/dL07/02/2021 11:27 AM [facility] LABComment: The [place] Diabetes Association (ADA) provides guidance for cutoff values for fasting glucose andrandom glucose. The ADA defines fasting as no [...] Standards of Medical Care in Diabetes 2016, [place] [employer]. Diabetes Care. 2016.39(Suppl 1). HDR611 - 24 mg/dL07/02/2021 11:27 AM [facility] Creatinine1.170.73 - 1.22 mg/dL07/02/2021 11:27 AM [facility] VKCHbyvum196642 - 144 mmol/L07/02/2021 11:27 AM [facility] LABPotassium4.13.7 - 5.1 mmol/L07/02/2021 11:27 AM [facility] NXIBermzzhj29854 - 105 mmol/L07/02/2021 11:27 AM EDT [facility] OOWEA24766 - 30 mmol/L07/02/2021 11:27 AM EDT [facility] LABAnion Gap99 - 18 mmol/L07/02/2021 11:27 AM [facility] LABEstimated Glomerular Filtration Rate63 >=60 mL/min/1.73m 07/02/2021 11:27 AM [facility] LABComment:Estimated Glomerular Filtration Rate (eGFR) is calculated using the 2020 CKD-EPI creatinine equation. This equation utilizes serum creatinine, sex, and age as parameters. The creatinine assay has traceable calibration to isotope dilution- mass spectrometry. Refer to KDIGO guidelines for clinical interpretation. In patients with unstable renal function, e.g. those with acute kidney injury, the eGFRmay not accurately reflect actual GFR.Specimen (Source)Anatomical Location / LateralityCollection Method / VolumeCollection TimeReceived TimeBloodBLOOD SPECIMEN / UnknownVenipuncture / Cadzpxw2107/02/2021 10:49 AM EDT07/02/2021 10:49 AM EDT Narrative Authorizing ProviderResult TypeResult StatusSiddxiomy Manzanares MDLABORATORYFinal ResultPerforming OrganizationAddressCity/State/ZIP CodePhone Number [facility] [address] [place] [address] from Last 3 Months or Most Recently Relevant to Health Maintenance Insurance Care Teams Team MemberRelationshipSpecialtyStart DateEnd Date Raegan Walker MD [address] [place] [phone] PCP - GeneralFamily Medicine06/26/21
--- OUTSIDE RECORDS SUMMARY | 2025-02-08 13:52 | XMS_ITS | Clinical Summary ---
Author Organization [facility] Address [address] [facility] [place] [address] Care Team Providers Care Healthcare Advisory Services Manager Name Role Phone Raegan Walker MD Primary Care Provider [phone] Allergies Active AllergyReactionsCriticalityNoted KwnbJguadoupCmxiwctdnizdXrxbc48/30/2022 Other reaction(s): Unknown Sulfa HokbnsgunoiQlwpllq27/20/1337PkfcnabvamzrGnhmn85/30/2024 Medications MedicationSigDispense QuantityRefillsLast FilledStart DateEnd DateStatus allopurinol (Zyloprim) 300 MG tablet 1 (one) time each day at the same timeActive furosemide (Lasix) 20 MG tablet 1 (one) time each day at the same timeActive esomeprazole (NexIUM) [address] capsule 1 capsule 1 (one) time each day at the same timeActive eplerenone (Inspra) 25 MG tablet Take 25 mg by mouth DailyActive latanoprost (Xalatan) 0.005 % ophthalmic solution 02/13/2023ctive amLODIPine (Norvasc) 2.5 MG tablet Take 1 tablet by mouth DailyActive aspirin 81 MG chewable tablet Chew 81 mg in the morning.01/01/2024ctive atorvastatin (Lipitor) 10 MG tablet Take 10 mg by mouth01/23/2024ctive Omeprazole 20 MG tablet delayed-release Take 20 mg by mouth in the morning.Active hydrocortisone 2.5 % cream Indications:Other specified dermatitisApply topically 2 (two) times a day as needed (Rash) Apply thin layer to affected areas on the facebid prn for flares 30 g ctive Xarelto 20 MG tablet Take 20 mg by mouth in the evening. Take with meals12/30/2023ctive montelukast (Singulair) 10 MG tablet 12/24/2023ctive isosorbide mononitrate ER (Imdur) 30 MG 24 hr tablet 12/25/2023ctive Active Problems ProblemNoted DateDiagnosed DateBasal cell carcinoma of face10/18/2022Idiopathic progressive fbzplccamb80/21/2023Onychomycosis due to xhtpconnzcka23/21/2023 Squamous cell cancer of skin of left cheek10/18/2022hronic obstructive pulmonary disease, unrpmiebtyd92/22/2021hronic atrial qyteuhfeqdfu61/10/2021 Gout02/24/2019 Encounters DateTypeDepartmentCare KqnrIjbhixftles48/30/2025 9:15 AM EDTProcedure Visit [facility] [address] [place] [phone] Juan C Gusman DPM Idiopathic progressive polyneuropathy (Primary Dx); Onychomycosis; Pain of toe of left foot; Hammer toe of left foot; Ulcer of left foot, limited to breakdown of skin (HCC)01/27/2025amb flowsheet [facility] [address] [place] [phone] Juan C Gusman DPM 01/27/20255815Mzfpbl69/21/2025 2:15 PM EDTOffice Visit [facility] [address] [place] [phone] Juan C Gusman DPM Corns and callosities (Primary Dx); Idiopathic progressive polyneuropathy; Hammer toe of left foot; Hallux valgus of left foot; Pain of toe of left foot11/18/2024amb flowsheet [facility] [address] [place] [phone] Juan C Gusman DPM 11/18/20240301Bpfsfs93/13/2025 10:50 AM EDTOffice Visit [facility] [address] [place] [address] Natalie Cox PA Actinic keratosis (Primary Dx); Inflamed seborrheic efkdacxvk12/13/2025amboo flowsheet [facility] [address] [place] [phone] Natalie Cox PA 11/10/2024Travelfrom Last 3 Months Immunizations ImmunizationAdministration DatesNext DuePneumococcal Polysaccharide PPSV23 01/29/2021Tdap1 Family History Medical HistoryRelationNameCommentsCancerFatherCancerFather's BrotherCancer Father's SisterMelanomaNeg HxRelationNameStatusCommentsFatherDeceasedFather's BrotherFather's SisterMotherDeceased Social History Tobacco UseTypesPacks/DayYears UsedDateSmoking Tobacco: NeverPassive Smoke Exposure: NeverSmokeless Tobacco: NeverAlcohol UseStandard Drinks/WeekComments Never0 (1 standard drink = 0.6 oz pure alcohol)Sex and Gender InformationValue Date RecordedSex Assigned at BirthNot on fileLegal BitMpag0706/12/2022 6:49 PM EDT Gender IdentityNot on fileSexual OrientationNot on file Last Filed Vital Signs Vital SignReadingTime TakenCommentsBlood Dfnfnsuo121/6010 8:53 AM EDT Engxj647901/27/2025 8:53 AM EDTTemperature--Respiratory Ysld596307/29/2024 2:05 PM EDTOxygen Saturation--Inhaled Oxygen Concentration--Vtsngl56.5 kg (195 lb) 01/27/2025 8:53 AM KAKBhjhix329.9 cm (6')01/27/2025 8:53 AM EDTBody Mass Index 26.451 8:53 AM EDT Plan of Treatment DateTypeDepartmentCare Team (Latest Contact Info)Exycuuinvjm85/01/2025 10:30 AM ESTOffice Visit [facility] [address] [place] [address] Juan C Gusman, DPSteffany [address] [place] [address] 03/11/2025 7:50 AM ESTOffice Visit [facility] [address] [place] [phone] Natalie Cox, GABRIEL [address] [place] [address] 04/04/2025 9:45 AM ESTProcedure Visit [facility] [address] [place] [address] Juan C Gusman, DPSteffany [address] [place] [address] Health MaintenanceDue DateLast DoneCommentsCOVID-19 Vaccine ( season) 51, 05/25/2020, 1Pneumococcal Vaccine: 65+ Years Fplzesjhi71/01/2021, 02/14/2020, 02/08/2019, Additional history existsInfluenza DosqrqyPfielnfda95/10/2025, 04/07/2024, 01/31/2023, Additional history exists Procedures Procedure NamePriorityDate/TimeAssociated DiagnosisCommentsCRYOTHERAPY SKIN PKPZSBGbdcyqj49/13/2025 10:59 AM EDT Inflamed seborrheic keratosis CRYOTHERAPY SKIN SRBEVCWyrfryq53/13/2025 10:58 AM EDT Actinic keratosis from Last 3 Months Results * Cryotherapy, skin lesion (11/10/2024 10:59 AM EDT) Narrative Authorizing ProviderResult TypeResult StatusAlison L Brooke PADERM PROCEDURE ORDERABLESFinal Result * Cryotherapy, skin lesion (11/10/2024 10:58 AM EDT) Narrative Authorizing ProviderResult TypeResult StatusAlison L Brooke PADERM PROCEDURE ORDERABLESFinal Result from Last 3 Months Insurance * Guarantor: Troy Yap TypeRelation to PatientDate of PhoneBilling AddressPersonal/IghabsAnfw93/09/[address] [phone] Care Teams Team MemberRelationshipSpecialtyStart DateEnd Raegan Hernández MD [address] [facility] [place] [phone] PCP - GeneralFamily Medicine07/29/24
--- OUTSIDE RECORDS SUMMARY | 2025-02-08 13:52 | XMS_ITS | Encounter Summary ---
Author Organization [facility] Address [address] [place] [address] Care Team Providers Care Resin Mixer Name Role Phone Raegan Walker MD Primary Care Provider [phone] Encounter Details DateTypeDepartmentCare Team (Latest Contact Info)Utygztyaawp59/30/2025Travel Social History Tobacco UseTypesPacks/DayYears UsedDateSmoking Tobacco: NeverPassive Smoke Exposure: NeverSmokeless Tobacco: NeverAlcohol UseStandard Drinks/WeekComments Never0 (1 standard drink = 0.6 oz pure alcohol)Sex and Gender InformationValue Date RecordedSex Assigned at BirthNot on fileLegal SalWjav1406/12/2022 6:49 PM EDT Gender IdentityNot on fileSexual OrientationNot on filedocumented as of this encounter Plan of Treatment DateTypeDepartmentCare Team (Latest Contact Info)Jhazhhipscn27/01/2025 10:30 AM ESTOffice Visit [facility] [address] [place] [address] Juan C Gusman DPSteffany [address] [place] [address] 03/11/2025 7:50 AM ESTOffice Visit [facility] [address] [place] [address] Natalie Cox, PA [address] [facility] [address] [place] [address] 04/04/2025 9:45 AM ESTProcedure Visit [facility] [address] [place] [address] Juan C Gusman, DPM [address] [place] [address] documented as of this encounter Visit Diagnoses Not on filedocumented in this encounter Care Teams Team MemberRelationshipSpecialtyStart DateEnd Date Raegan Walker MD [address] [place] [phone] PCP - GeneralFamily Medicine07/29/24documented as of this encounter
--- OUTSIDE RECORDS SUMMARY | 2025-02-08 13:52 | XMS_ITS | Clinical Summary ---
Author Organization [facility] Address [address], [address] [place] [address] Care Team Providers Care Sales Performance Manager Name Role Phone Raegan Walker MD Primary Care Provider [phone] Allergies Active AllergyReactionsCriticalityNoted WalbZiqityhgAikwqcjpcxsf25/30/2022 Other reaction(s): Unknown Sulfa Ifzzkeouxme80/23/2021 Other reaction(s): Unknown TrimethoprimOther (See Comments)11/19/2023 Onset Date: 02/09/2013 Medications MedicationSigDispense QuantityRefillsLast FilledStart DateEnd DateStatus Omeprazole 20 MG TBEC Take 1 tablet by mouth dailyActive allopurinol (ZYLOPRIM) 300 MG tablet Take 1 tablet by mouth dailyActive latanoprost (XALATAN) 0.005 % ophthalmic solution INSTILL 1 DROP IN BOTH EYES once DAILY IN THE QWCJYAU5609/27/2021ctive Cholecalciferol (VITAMIN D) 50 MCG (1999) CAPS capsule Take 5,000 Units by mouth dailyActive aspirin 81 MG EC tablet Take 1 tablet by mouth dailyActive amLODIPine (NORVASC) 2.5 MG tablet Take 1 tablet by mouth dailyActive colchicine (COLCRYS) 0.6 MG tablet Take 1 tablet by mouth daily 30 tablet 4Active Additional Information Patient not taking.Reported on 02/02/2025 rivaroxaban (XARELTO) 20 MG TABS tablet Take 1 tablet by mouth Daily with supper 90 tablet 5Active eplerenone (INSPRA) 25 MG tablet Indications:Shortness of breath,Edema of right lower leg,Edema of left footTake 1 tablet by mouth daily 30 tablet 310/5Active atorvastatin (LIPITOR) 10 MG tablet Take 1 tablet by mouth daily 90 tablet 3105Active furosemide (LASIX) 20 MG tablet Indications:Shortness of breath,Edema of right lower leg,Edema of left footTake 1 tablet by mouth daily 30 tablet 1110/5Active FEROSUL 325 (65 Fe) MG tablet Indications:Iron deficiency anemia, unspecified iron deficiency anemia typeTAKE 1 TABLET BY MOUTH DAILY with BREAKFAST 90 tablet 3115Active atorvastatin (LIPITOR) 10 MG tablet Take 1 tablet by mouth daily01/22//Discontinued(REORDER) ferrous sulfate (IRON 325) 325 (65 Fe) MG tablet Indications:Iron deficiency anemia, unspecified iron deficiency anemia typeTake 1 tablet by mouth daily (with breakfast) 90 tablet 301//844891/05/2024Discontinued furosemide (LASIX) 20 MG tablet Take 1 tablet by mouth 2 times daily 60 tablet 11011/25/499256/Discontinued(DOSE ADJUSTMENT) furosemide (LASIX) 20 MG tablet Take 1 tablet by mouth daily 60 tablet 1110/720969/Discontinued Active Problems ProblemNoted DateDiagnosed DateChronic obstructive pulmonary disease, ddopgumbagu08/22/2021hronic atrial lznpemksysmz97/10/2021ulmonary nodule 12/21/20193482Ioxlwp54/27/9635Rkgl12/27/2019 Encounters DateTypeDepartmentCare QkzfGdyixuiprwa50/05/2025 3:00 PM ESTOffice Visit [facility] Part [address] [place] [address] Agapito Felder MD 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) (Primary Dx) 01/31/2025Telephone [facility] Part [address] [place] [address] Agapito Felder MD increased pain01/31/2025Refill [facility] Stock Raiser [address] [place] [address] [place] [address] Miesha Clark, BANK NOTE DESIGNER - COTTON CLEANER Medication Tybjpi5401/27/2025 12:43 PM EDT - 01/29/2025 11:59 PM EDTHospital Encounter [facility] [address] [place] [address] Agapito Felder MD 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); Varicose veins of bilateral lower extremities with pain Discharge Disposition: Home or Self Care01/26/2025 9:30 AM EDTOffice Visit [facility] Part of [address] [place] [address] Agapito Felder MD 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) (Primary Dx); Varicose veins of bilateral lower extremities with pain01/20/2025Results Follow-Up [facility] Stock Raiser [address] [place] [address] Miesha Clark, BANK NOTE DESIGNER - COTTON CLEANER 01/19/2025 2:43 PM EDT - 01/21/2025 11:59 PM EDTHospital Encounter [facility] [address] [place] [address] Shortness of breath; Edema of right lower leg; Edema of left foot Discharge Disposition: Home or Self Care01/19/2025 2:35 PM EDT - 01/19/2025 2:42 PM EDTHospital Encounter [facility] [address] [place] [address] Shortness of breath; Edema of right lower leg; Edema of left foot Discharge Disposition: Home or Self Care01/19/2025 9:00 AM EDTOffice Visit [facility] Stock [facility]aiser [address] [place] [address] Miesha Clark, BANK NOTE DESIGNER - COTTON CLEANER Edema of right lower leg (Primary Dx); Acute right ankle pain; Edema of left foot; Shortness of ectceb5001/19/2025Telephone [facility] Stock [facility]aiser [address] [place] [address] Miesha Clark, BANK NOTE DESIGNER - COTTON CLEANER Discuss Qufagwunpto84/21/2025Results Follow-Up [facility]aiser [address] [place] [address] Miesha Clark APRN - CNP 01/17/2025 2:52 PM EDT - 01/19/2025 11:59 PM EDTHospital Encounter [facility]iology [address] [place] [address] Chronic atrial fibrillation (HCC) Discharge Disposition: Home or Self Care01/05/2025Orders Only [facility] Stock [facility]aiser [address] [place] [address] Miesha Clark APRN - CNP Chronic atrial fibrillation (HCC) (Primary Dx)01/05/2025Telephone [facility]aiser [address] [facility] [place] [address] Wing Miller MD Leg Zcypqybu67/27/2025Telephone [facility] [address] [facility] [place] [address] Wing Miller MD from Last 3 Months Immunizations ImmunizationAdministration DatesNext DueTDaP, ADACEL (age 10y-64y), BOOSTRIX (age 10y+), IM, 0.5mL12/30/2015 Family History Medical HistoryRelationNameCommentsCancerMotherVaricose veinsSonRelationName StatusCommentsMotherSonAlive Social History Tobacco UseTypesPacks/DayYears UsedDateSmoking Tobacco: NeverSmokeless Tobacco: Never Tobacco Cessation:Counseling Given: Not Answered Alcohol UseStandard Drinks/WeekCommentsNo0 (1 standard drink = 0.6 oz pure alcohol)AUDIT-CAnswerDate RecordedQ1: How often do you have a drink containing alcohol?Never03/14/2024Q2: How many drinks containing alcohol do you have on a typical day when you are drinking?Patient does not drink03/14/2024Q3: How often do you have six or more drinks on one occasion?Never03/14/2024Interpersonal Safety Domain Source: IP Abuse ScreeningAnswerDate RecordedRead-Only, Retired: Physical BjnomVrjmiu58/18/2023Read-Only, Retired: Verbal BpdyjSiwtoq33/18/2023 Read-Only, Retired: Emotional bglkgFxjpbs58/18/2023Read-Only, Retired: Financial JgaydZllbnr75/18/2023Read-Only, Retired: Sexual rueleAodrec66/18/2023Sex and Gender InformationValueDate RecordedSex Assigned at OnxleJlkj76/30/2023 12:10 PM ESTLegal CaxActx2705/10/2012 9:49 PM ESTGender GuyfhgbqIfdc76/30/2023 12:10 PM EST Sexual HiqnzvceiccMslrqrdr23/30/2023 12:10 PM EST Last Filed Vital Signs Vital SignReadingTime TakenCommentsBlood Mhymejtk764/7002/02/2025 3:04 PM EST Wqagu852802/02/2025 3:04 PM ZWSRxdlshqzdwm89.9 ??C (96.7 ??F)02/02/2025 3:04 PM ESTRespiratory Rzaq617604/04/2024 3:04 PM ESTOxygen Ixbpbkmfgk42%01/19/2025 8:58 AM EDTInhaled Oxygen Concentration--Nkwaip30.2 kg (201 lb)02/02/2025 3:04 PM EST Zvbgcv415 cm (6' 2 )02/02/2025 3:04 PM ESTBody Mass Index25.8102/02/2025 3:04 PM EST Plan of Treatment DateTypeDepartmentCare Team (Latest Contact Info)Xayxkscnvdg50/29/2026 9:30 AM ESTOffice Visit [facility] [address] [place] [phone] Miesha Clark, BANK NOTE DESIGNER - COTTON CLEANER [address] [place] [address] 1 year follow up labs ekg cxr08/03/2025 9:30 AM EDTOffice Visit [facility] Part of [address] [place] [address] Agapito Felder MD [address] [place] [address] [address] [place] [address] 6 mth f/u008/16/2025 10:00 AM EDTOffice Visit [facility] Part of [address] [place] [address] Chente Lyons PA-C [address] [place] [address] 1 year PSAHealth MaintenanceDue DateLast DoneCommentsDepression Qazkvq3205/09/1953 Respiratory Syncytial Virus (RSV) or age 60 yrs+ (1 - 1-dose 75+ series)2016Annual Wellness Visit (Medicare)02/24/2023OVID-19 Vaccine (2024- season), 05/25/2020, 3812Zlfntn77/27/2026 04/26/2024, 12/22/2023, 08/27/2023, Additional history existsDTaP/Tdap/Td vaccine (2 - Td or Tdap)61, 12/30/2015, 02/01/2013Pneumococcal 50+ years GzeiqmaRiaajxcty65/01/2021, 02/14/2020, 02/08/2019, Additional history existsShingles ogwmbvhTthogerlr35/05/2025, 04/07/2024Flu vaccineCompleted 12/08/2024, 04/07/2024, 01/31/2023, Additional history existsHepatitis A vaccine Aged OutNo longer eligible based on patient's age to complete this topic Hepatitis B vaccineAged OutNo longer eligible based on patient's age to complete this topicHib vaccineAged OutNo longer eligible based on patient's age to complete this topicMeningococcal (ACWY) vaccineAged OutNo longer eligible based on patient's age to complete this topicMeningococcal B vaccineAged OutNo longer eligible based on patient's age to complete this topicPolio vaccineAged OutNo longer eligible based on patient's age to complete this topic Procedures Procedure NamePriorityDate/TimeAssociated DiagnosisCommentsVAS REFLUX VENOUS INSUFFICIENCY STUDY AZOKBRYATCkblbru32/30/2025 2:27 PM EDT 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) Varicose veins of bilateral lower extremities with pain VAS DUP LOWER EXTREMITY VENOUS JJHXKKSVTUPJQ80/22/2025 3:33 PM EDT Shortness of breath Edema of right lower leg Edema of left foot BASIC METABOLIC ZIKNVYqgqibz27/22/2025 2:49 PM EDT Shortness of breath Edema of right lower leg Edema of left foot ECHO (TTE) COMPLETE W/ GPBKFIOCKygfnhc23/20/2025 4:18 PM EDT Chronic atrial fibrillation (HCC) LIPID RMSFDDfxmult60/27/2025 10:30 AM EST Atrial flutter, unspecified type (HCC) Vitamin D deficiency Encounter for lipid screening for cardiovascular disease Aortic valve stenosis, etiology of cardiac valve disease unspecified from Last 3 Months or Most Recently Relevant to Health Maintenance Results * Vascular duplex reflux venous insufficiency [...] 2.3 mm, 0 seconds There is a openstack developer noted in the distal calf with no reflux noted. Authorizing ProviderResult TypeResult StatusMark W Bradford [facility] ORDERABLESFinal Result * Vascular duplex lower extremity venous bilateral (01/19/2025 3:33 PM EDT) Anatomical RegionLateralityModalityVascular UltrasoundSpecimen (Source) Anatomical Location / LateralityCollection Method / VolumeCollection Time Received Time01/19/2025 3:33 PM EDT Impressions 01/19/2025 5:09 PM EDT Negative for right lower extremity DVT/SVT. There are a few visualized varices the right lower extremity and subcutaneous edema. Narrative 01/19/2025 5:09 PM EDT EXAM: VAS DUP LOWER EXTREMITY VENOUS BILATERAL HISTORY: Edema right calf COMPARISON: None. TECHNIQUE: Grayscale, color Doppler and spectral waveform analysis of the right lower extremity venous vasculature FINDINGS: Segmentally visualized right lower extremity venous vasculature is patent on grayscale imaging with normal compressibility and flow on color Doppler imaging. There is normal augmentation during spectral waveform analysis. There are a few superficial varices visualized and lower extremity subcutaneous edema. Left external iliac vein and common femoral vein are patent. Right Lower Venous No evidence of acute deep vein or superficial vein thrombosis. The common femoral, saphenofemoral junction, profunda femoral, femoral, popliteal, greater saphenous, and small saphenous veins were imaged in the transverse view and showed normal compressibility. The common femoral, popliteal, and middle femoral veins were imaged in the longitudinal view and showed normal color filling and normal phasic and spontaneous flow. Posterior Tibial Vein: Patent, compressible. Peroneal Vein: Patent, compressible. Left Lower Venous No evidence of acute deep vein or superficial vein thrombosis. The common femoral, saphenofemoral junction, profunda femoral, femoral, popliteal, greater saphenous, and small saphenous veins were imaged in the transverse view and showed normal compressibility. The common femoral, popliteal, and middle femoral veins were imaged in the longitudinal view and showed normal color filling and normal phasic and spontaneous flow. Posterior Tibial Vein: Patent, compressible. Peroneal Vein: Patent, compressible. House Wirer Helper Details A wright scale, color Doppler imaging and spectral Doppler analysis ultrasound was performed. During the study longitudinal and transverse views were obtained. Pulsed wave doppler was performed. Overall the study quality was good. Procedure Note Albert Burnham DO - 01/19/2025 EXAM: VAS DUP LOWER EXTREMITY VENOUS BILATERAL HISTORY: Edema right calf COMPARISON: None. TECHNIQUE: Grayscale, color Doppler and spectral waveform analysis of theright lower extremity venous vasculature FINDINGS: Segmentally visualized right lower extremity venous vasculature is patenton grayscale imaging with normal compressibility and flow on color Doppler imaging. There is normal augmentation during spectral waveform analysis.There are a few superficial varices visualized and lower extremity subcutaneous edema. Left external iliac vein and common femoral vein are patent. IMPRESSION: Negative for right lower extremity DVT/SVT. There are a few visualized varices the right lower extremity andsubcutaneous edema. Authorizing ProviderResult TypeResult StatusParobert Clark BANK NOTE DESIGNER - CNPCV VASCULAR ORDERABLESFinal Result * (ABNORMAL) Basic Metabolic Panel (01/19/2025 2:49 PM EDT)ComponentValueRef RangeTest MethodAnalysis TimePerformed AtPathologist OxciwxugiUrjevt394828 - 144 mmol/L1 2:49 PM EDIPexpert MANNY LABPotassium3.73.7 - 5.3 mmol/L1 2:49 PM EDIPexpert MANNY ZZGRgeohqpj37669 - 107 mmol/L 01/19/2025 2:49 PM EDIPexpert MANNY PFNAM37115 - 31 mmol/L1 2:49 PM EDIPexpert MANNY LABAnion Gap7(L)9 - 17 mmol/L1 2:49 PM EDIPexpert MANNY VJZLpopjmf942(H)70 - 99 mg/dL01/19/2025 2:49 PM EDT [employer] MANNY RBMNMH54(H)8 - 23 mg/dL01/19/2025 2:49 PM EDIPexpert MANNY LABCreatinine1.5(H)0.7 - 1.2 mg/dL01/19/2025 2:49 PM EDIPexpert MANNY LABEst, Glom Filt Rate46(L)>60 mL/min/1.63c33401/19/2025 2:49 PM EDT [employer] MANNY LABComment: ? These results are not intended for use in patients <18 years of age. ? eGFR results are calculated without a race factor using the 2020 CKD-EPI equation. Careful clinical correlation is recommended, particularly when comparing to results calculated using previous equations. The CKD-EPI equation is less accurate in patients with extremes of muscle mass, extra-renal metabolism of creatine, excessive creatine ingestion, or following therapy that affects renal tubular secretion. Calcium9.78.6 - 10.4 mg/dL01/19/2025 2:49 PM EDFOST[facility] MANNY LABSpecimen (Source)Anatomical Location / LateralityCollection Method / VolumeCollection TimeReceived TimeBloodBLOOD SPECIMEN / Kckdfiw3701/19/2025 2:49 PM EDT1 2:50 PM EDT Narrative Authorizing ProviderResult TypeResult StatusParobert Clark BANK NOTE DESIGNER - CNPCHEMISTRY ORDERABLESFinal ResultPerforming OrganizationAddressCity/State/ZIP CodePhone Number [facility] MANNY LAB [address] [place] [address], [facility] [phone] * (ABNORMAL) ECHO (TTE) COMPLETE W/ CONTRAST (01/17/2025 4:18 PM EDT)Component ValueRef RangeTest MethodAnalysis TimePerformed AtPathologist SignatureIVSd0.8 0.6 - 1.0 cmBSMH CV CPACSLVIDd4.74.2 - 5.9 cmBSMH CV CPACSLVIDs3.5cmBSMH CV CPACSLVOT Diameter2.0cmBSMH CV CPACSLVPWd0.90.6 - 1.0 cmBSMH CV CPACSEF BP44 (A)55 - 100 %BS[facility] CV CPACSLV Ejection Fraction A2C47%[facility] CV CPACSLV Ejection Fraction A4C46%[facility] CV CPACSLV EDV K3I968zMMVSH CV CPACSLV EDV O1W701rERJLD CV CPACSLV EDV PP16863 - 155 mLBSMH CV CPACSLV ESV H4O07oMAOWU CV CPACSLV ESV A4C 64mLBSMH CV CPACSLV ESV BP67(A)22 - 58 mLBSMH CV CPACSLVOT Peak Bdcsrqyw9pmPe BSMH CV CPACSLVOT Mean Flobtsla4qvQrOCCH CV CPACSLVOT SV63.4mlBSMH CV CPACS LVOT Peak Velocity1.0m/sBSMH CV CPACSLVOT VTI20.2cmBSMH CV CPACSRV Mid Dimension3.5cmBSMH CV CPACSRV Basal Dimension4.5cmBSMH CV CPACSGlobal longitudinal strain-18.5%[facility] CV CPACSTAPSE1.1(A)>=1.7 cmBSMH CV CPACSLA Diameter4.8cmBSMH CV CPACSLA Volume A/Z002mULXJF CV CPACSLA Volume A-L A4C89 (A)18 - 58 mLBSMH CV CPACSLA Volume A-L M5R111(A)18 - 58 mLBSMH CV CPACSLA Volume MOD A2C89(A)18 - 58 mLBSMH CV CPACSLA Volume MOD L5R646(A)18 - 58 mL BSMH CV CPACSLA Volume BP104(A)18 - 58 mLBSMH CV CPACSRA Hetsyd117jvRKNP CV CPACSAV Area by Peak Velocity2.4oi3FTNA CV CPACSAV Area by VTI2.7mr3PDDB CV CPACSAV Peak Xbeqtosk5mpWbCYBD CV CPACSAV Mean Dydfzpdp6rjMtDZXM CV CPACSAV Peak Velocity1.3m/sBSMH CV CPACSAV Mean Velocity0.9m/sBSMH CV CPACSAV VTI30.0 cmBSMH CV CPACSMV A Velocity0.26m/sBSMH CV CPACSMV E Wave Deceleration Time 197.7msBSMH CV CPACSMV E Velocity0.72m/sBSMH CV CPACSLV E' Lateral Velocity 6.59cm/sBSMH CV CPACSLV E' Septal Velocity5.78cm/sBSMH CV CPACSPulmonary Artery JGT79lvNlOJYZ CV CPACSPR Max Velocity1.6m/sBSMH CV CPACSPV Peak Hcptdwqh8kuStSOMC CV CPACSPV Max Velocity1.0m/sBSMH CV CPACSTR Peak Pkjdgjrk71 mmHgBSMH CV CPACSTR Max Velocity3.49m/sBSMH CV CPACSAscending Aorta3.3cmBSMH CV CPACSAortic Root3.4cmBSMH CV CPACSFractional Shortening 2J3841 - 44 %BSMH CV CPACSLV RWT Ratio0.38BSMH CV CPACSLV Mass 2D132.388 - 224 gBSMH CV CPACSMV E/A2.77BSMH CV CPACSE/E' Ratio (Averaged)11.69BSMH CV CPACSE/E' Uwmqggh75.93 B[facility] CV CPACSE/E' Tkyfgv98.46BSMH CV CPACSLVOT Area3.2ft3BSOH CV CPACSLA/AO Root Ratio1.41BSMH CV CPACSAV Velocity Ratio0.77BSMH CV CPACSLVOT:AV VTI Index 0.67BSMH CV CPACSEst. RA Nbblbqvc34xuHvJVOM CV YEPAXTGSN23pwVhDTSN CV CPACSLV ESV Index BP31mL/m2BSMH CV CPACSLV EDV Index BP55mL/m2BSMH CV CPACSLV ESV Index Q8Z73fD/m2BSMH CV CPACSLV EDV Index Q7H35jE/m2BS[facility] CV CPACSLV ESV Index W7R67gG/m2BS[facility] CV CPACSLV EDV Index Z3E12xM/m2BS[facility] CV CPACSLVIDd Index2.19 cm/m2BS[facility] CV CPACSLVIDs Index1.63cm/m2BS[facility] CV CPACSLV Mass 2D Index61.549 - 115 g/m2BSMH CV CPACSLA Volume Index KX5377 - 34 ml/m2BS[facility] CV CPACSLA Volume Index A/L5016 - 34 mL/m2[facility] CV CPACSLVOT Stroke Volume Index29.5mL/m2BS[facility] CV CPACSLA Volume Index A-L L8Z8682 - 34 mL/m2[facility] CV CPACSLA Volume Index A-L L9F6326 - 34 mL/m2[facility] CV CPACSLA Volume Index MOD Q6K5619 - 34 ml/m2BS[facility] CV CPACSLA Volume Index MOD R2V0796 - 34 ml/m2[facility] CV CPACSLA Size Index2.23cm/m2 [facility] CV CPACSRA Volume Index X5F04kP/m2BSMH CV CPACSAo Root Index1.58cm/m2BS[facility] CV CPACSAscending Aorta Index1.53cm/m2[facility] CV CPACSAVA/BSA VTI1.0cm2/m2[facility] CV CPACSAVA/BSA Peak Velocity1.1cm2/m2[facility] CV CPACSEF Vjxznqbpp98%BS[facility] CV CPACS Anatomical RegionLateralityModalityEchocardiographySpecimen (Source)Anatomical Location / LateralityCollection Method / VolumeCollection TimeReceived Time Narrative 01/18/2025 8:01 AM EDT Left Ventricle: Mildly reduced left ventricular systolic function. EF by visual approximation is 47%. EF by 2D Simpsons Biplane is 44%. Left ventricle size is normal. Normal wall thickness. Ventricular mass is normal. Global hypokinesis present. ?Right??Ventricle: Right ventricle is mildly dilated. ??RV Mid Dimension is 3.5 cm. Moderately reduced systolic function. TAPSE is abnormal. RV free wall strain is abnormal. ?Aortic??Valve: Mild sclerosis of the aortic valve cusps. ?Mitral??Valve: Mild regurgitation. ?Tricuspid??Valve: Moderate to severe regurgitation with an eccentrically directed jet and may underestimate severity. Moderately elevated RVSP, consistent with moderate pulmonary hypertension. ??RVSP is 64 mmHg. ?Left??Atrium: Left atrium is moderately dilated. Left atrial volume index is moderately increased (42-48 mL/m2) mL/m2. ?Right??Atrium: Right atrium is severely dilated. ?Image quality is fair. Contrast used: Lumason. Technically difficult study. Mild left ventricular systolic function with estimate ejection fraction 45-50% Mild to moderate RV hypokinesis Mild mitral regurgitation Moderate to severe tricuspid regurgitation Moderately elevated RVSP for age at 64 mmHg consistent with moderate pulm hypertension Moderate left atrial enlargement Severe right atrial enlargement Left Ventricle Mildly reduced left ventricular systolic function. EF by visual approximation is 47%. EF by 2D Simpsons Biplane is 44%. Left ventricle size is normal. Normal wall thickness. Ventricular mass is normal. Global hypokinesis present. Diastolic function indeterminate in the setting of atrial fibrillation. Right Ventricle Right ventricle is mildly dilated. RV Mid Dimension is 3.5 cm. Moderately reduced systolic function. TAPSE is abnormal. RV free wall strain is abnormal. Left Atrium Left atrium is moderately dilated. Left atrial volume index is moderately increased (42-48 mL/m2) mL/m2. Right Atrium Right atrium is severely dilated. IVC/SVC IVC diameter is dilated and decreases less than 50% during inspiration; therefore the estimated right atrial pressure is elevated (~15 mmHg). Mitral Valve Valve structure is normal. Mild regurgitation. No stenosis noted. Tricuspid Valve Valve structure is normal. Moderate to severe regurgitation with an eccentrically directed jet and may underestimate severity. No stenosis noted. Moderately elevated RVSP, consistent with moderate pulmonary hypertension. RVSP is 64 mmHg. Aortic Valve Mild sclerosis of the aortic valve cusps. No regurgitation. No stenosis. Pulmonic Valve The pulmonic valve visualization is suboptimal but appears to be functioning normally. Mild regurgitation. No stenosis noted. Ascending Aorta Normal sized aortic root and ascending aorta. Pericardium No pericardial effusion. Septum No interatrial shunt visualized with color Doppler. Study Details Image quality: fair. Technically difficult study, color flow Doppler was performed and pulse wave and/or continuous wave Doppler was performed. Lumason contrast was given to enhance imaging. Authorizing ProviderResult TypeResult StatusRemykailash Clark BANK NOTE DESIGNER - CNPCV ECHO ORDERABLESFinal Result * Lipid Panel (04/26/2024 10:30 AM EST)ComponentValueRef RangeTest Method Analysis TimePerformed AtPathologist SignatureCholesterol, Bfkgl1860 - 199 mg/dL04/26/2024 10:30 AM ESTArradiance LABORATORIESComment: Cholesterol Guidelines: <200 Desirable 200-240 ??Borderline >240 Undesirable HDL48>40 mg/dL04/26/2024 10:30 AM [facility] LABORATORIESComment: HDL Guidelines: <40 Undesirable 40-59 ?Borderline >59 Desirable LDL Ycukdqnvcit312 - 100 mg/dL04/26/2024 10:30 AM ESTArradiance LABORATORIESComment: LDL Guidelines: <100 Desirable 100-129 ?? Near to/above Desirable 130-159 ?? Borderline >159 Undesirable Direct (measured) LDL and calculated LDL are not interchangeable tests. Chol/HDL Ratio2. 10:30 AM ESTArradiance VARTCHJZPITKIsbckqytcyriv53<150 mg/dL04/26/2024 10:30 AM [facility] LABORATORIESComment: Triglyceride Guidelines: <150 Desirable 150-199 ??Borderline 200-499 ??High >499 Very high Based on AHA Guidelines for fasting triglyceride, December 2011. CJLW633 - 30 mg/dL04/26/2024 10:30 AM [facility] LABORATORIESSpecimen (Source) Anatomical Location / LateralityCollection Method / VolumeCollection Time Received TimeBloodBLOOD SPECIMEN / Xnliogd2804/26/2024 10:30 AM EST04/26/2024 10:31 AM EST Narrative Authorizing ProviderResult TypeResult StatusWing Miller MDCHEMISTRY ORDERABLESFinal ResultPerforming OrganizationAddressCity/State/ZIP CodePhone Number [facility] [address] [place] [address], [facility] [phone] [employer] [address] [id number], [facility] [phone] from Last 3 Months or Most Recently Relevant to Health Maintenance Insurance Care Teams Team MemberRelationshipSpecialtyStart DateEnd Date Raegan Walker MD PCP - GeneralFamily Medicine09/18/19
--- OUTSIDE RECORDS SUMMARY | 2025-02-08 14:04 | XMS_ITS | CCD ---
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 Inspector Name Role Phone SANDY MURILLO Unavailable Unavailable NITA HERNANDEZ Admitting Unavailable FAIZAN BRAGG Primary Care Unavailable Faizan Bragg Primary Care Provider [phone] NITA HERNANDEZ Attending Unavailable NITA HERNANDEZ Referring Unavailable FAIZAN BRAGG Primary Care Unavailable Faizan Bragg Primary Care Provider Faizan Bargg Primary Care Provider Faizan Bragg Primary Care Provider Faizan Bragg Primary Care Provider [phone] Faizan Bragg MD Primary Care Provider Faizan Bragg MD Primary Care Provider Faizan Bragg MD Primary Care Provider Aaron DE LA PAZ, Faizan Primary Care Provider Mik Amaya Unavailable Faizan Bragg MD Primary Care Provider MD Faizan Bragg Primary Care Provider MD Mik Amaya Attending Provider Isrrael Greene Admitting Unavailable FAIZAN BRAGG Referring Unavailable FAIZAN BRAGG Primary Care Unavailable Isrrael Greene Attending Unavailable Faizan Bragg Unavailable DR FAIZAN BRAGG Attending Unavailable KAY, DR NITA Prieto Consulting Unavailable AARON, DR FAIZAN Hernandez Primary Care Unavailable AARON, DR FAIZAN Hernandez Admitting Unavailable AARON, DR FAIZAN Hernandez Consulting Unavailable AARON, DR FAIZAN Hernandez Admitting Unavailable BRAGG, DR FAIZAN Hernandez Attending Unavailable AARON, DR FAIZAN Hernandez Consulting Unavailable AARON, DR FAIZAN Hernandez Primary Care Unavailable ZE SOTO Consulting Unavailable AARON, DR FAIZAN Hernandez Admitting Unavailable BRAGG, DR FAIZAN Hernandez Attending Unavailable BRAGG, DR FAIZAN Hernandez Consulting Unavailable BRAGG, DR FAIZAN Hernandez Primary Care Unavailable BRAGG, DR FAIZAN Hernandez Attending Unavailable ZICHET, DR NITA Prieto Consulting Unavailable BRAGG, DR FAIZAN Hernandez Primary Care Unavailable BRAGG, DR FAIZAN Hernandez Admitting Unavailable BRAGG, DR FAIZAN Hernandez Consulting Unavailable Le, Arturo Consulting Unavailable BRAGG, DR FAIZAN Hernandez Attending Unavailable BRAGG, DR FAIZAN Hernandez Consulting Unavailable BRAGG, DR FAIZAN Hernandez Primary Care Unavailable BRAGG, DR FAIZAN Hernandez Admitting Unavailable Faizan Bragg MD Primary Care Provider Faizan Bragg MD Primary Care Provider FAIZAN BRAGG Primary Care Physician Aaron DE LA PAZ, Faizan Primary Care Provider TRES ÁLVAREZ Attending Unavailab TRES Cool Admitting Unavailab le FAIZAN BRAGG Primary Care Unavailable Faizan Bragg MD Primary Care Provider Faizan Bragg MD Primary Care Provider Faizan Bragg MD Primary Care Provider Faizan Bragg MD Primary Care Provider Faizan Bragg MD Primary Care Provider FAIZAN BRAGG Primary Care Unavailable SREEDHAR ZAYAS Attending Unavailable MECHELLE ADEN Attending Unavailable FAIZAN BRAGG Primary Care Unavailable Faizan Bragg MD Primary Care Provider Faizan Bragg MD Attending Provider Faizan Bragg MD Primary Care Provider Faizan Bragg MD Attending Provider Prabha Marmolejo APRN Attending Provider Daniel Hair Attending Unavailable Daniel Hair Referring Unavailable Daniel Hair Attending Unavailable Daniel Hair Referring Unavailable Daniel Hair Admitting Unavailable Daniel Hair Attending Unavailable FAIZAN BRAGG Referring Unavailable Daniel Hair Admitting Unavailable FAIZAN BRAGG Referring Unavailable Daniel Hair Attending Unavailable Daniel Hair Admitting Unavailable NONE, XXXX Referring Unavailable Daniel Hair Attending Unavailable Daniel Hair Admitting Unavailable Daniel Hair Attending Unavailable Daniel Hair Referring Unavailable BRAGG, FAIZAN Primary Care Unavailable [...] Referring Unavailable BRAGG, FAIZAN Primary Care Unavailable SHAW, MIESHA S Referring Unavailable BRAGG, FAIZAN Primary Care Unavailable SHAW, [...] Attending Unavailable BRAGG, FAIZAN Primary Care Unavailable BRAGG, FAIZAN Primary Care Unavailable BRAGG, FAIZAN Primary Care Unavailable SHAW, MIESHA S Referring Unavailable BRAGG, FAIZAN Primary Care Unavailable SHAW, MIESHA S Referring Unavailable BRAGG, FAIZAN Primary Care Unavailable BRAGG, FAIZAN Primary Care Unavailable BRAGG, FAIZAN Primary Care Unavailable Bragg , Faizan Primary Care Provider CAROL GUSMAN Attending Unavailabl frankie GUSMAN, CAROL Freitas Attending Unavailabl CAROL Campa Attending Unavailabl e CAROL GUSMAN Attending CAROL Joyner Attending CAROL Joyner Attending UnavailNATALIE Scott Attending Unavailable CAROL GUSMAN Attending NATALIE Adamson Attending Unavailable ANTALIE MARKS Attending Unavailable SHAREE EVANS Referring Unavailable FAIZAN BRAGG Primary Care Unavailable ARTURO PALMA Attending Unavailable ARTURO PALMA Referring Unavailable FAIZAN BRAGG Primary Care Unavailable Allergies Allergy ClassificationReported Allergen(s)Allergy TypeDate of OnsetReaction(s) Facility (20 sources)IndomethacinDrug Lnqganb80-03-5039Klgjcsw, [facility] Comment on above:Onset Date: 06/04/2013 (4 sources)Sulfamethoxazole / TrimethoprimDrug Cvelrxa12-92-6862JfjeidqShaenemgm Clinic (20 sources)Sulfonamides (Antibiotic)Propensity to adverse reactions to drug 30-83-1918FojeunpBAWInova [facility] Hospital (4 sources)Sulfamethoxazole / TrimethoprimDrug Bbnlhwg31-30-6914UxaxuqkDlenaFXTrip Other (2 sources)patient allergy list reviewed by nurse or physiciaPropensity to adverse wsqacgdht56-05-9932Foilzod:[facility] Other (2 sources)Allergies ReconciledPropensity to adverse reactionsOilAndGasRecruiter Other (9 sources)SulfamethoxazoleDrug Lehsrtq83-29-6946YioljvtUniversity Hospitals Lake West Medical CenterComment on above:Onset Date: 02/09/2013 (20 sources)TrimethoprimDrug Sswxzys23-16-0059Vbdyo, Other (See Comments) [facility]:Onset Date: 02/09/2013 (1 source)No Known Medication Allergies; Translations: [No Known Medication Allergies]Propensity to adverse reactions (disorder)[facility] Medications Current Medications MedicationDrug Class(es)DatesSig (Normalized)Sig (Original)amitriptyline hydrochloride 25 mg oral tablet (3 sources)Tricyclic AntidepressantStart: 24-86-2248eqop 0.5-1 tablets by mouth once daily at bedtimeamitriptyline 25 mg Tab 0.5-1 tab(s), Oral, Once a day (at bedtime), # 30 tab(s), Refills(s) 1, Pharmacy: [id number], 188, cm, 08/04/23 8:12:00 EDT, Height/Length Dosing, 88.5, kg, 07/03/23 14:37:00 EDT, Weight Dosing Start Date: 08/11/23 Status: OrderedamLODIPine 5 mg oral tablet (20 sources)Dihydropyridine Calcium Channel BlockerStart: 97-25-6198xhkx 2.5 mg by mouth once dailyAmlodipine 5 mg tablet Active 2.5 MG PO Daily January 28, 2024 12:00am Complies with drug therapyStart: 40-97-5628exxa 2.5 mg by mouth once dailyAmlodipine Active 2.5 MG PO Daily January 28, 2024 12:00amStart: 41-80-7328kifw 0.5 tablet by mouth once dailyamLODIPine (NORVASC) 5 MG tablet Take 0.5 (one-half) tablet (2.5 mg total) by mouth daily . 15 tablet 11 01/23/2024 Activetake 1 tablet by mouth once dailyamLODIPine (NORVASC) 2.5 MG tablet Take 1 tablet by mouth daily Activeatorvastatin 10 mg oral tablet (20 sources)HMG-CoA Reductase InhibitorStart: 01-23-2024 End: 62-08-2346ypny 1 tablet by mouth once dailyatorvastatin (LIPITOR) 10 MG tablet Take 1 tablet by mouth daily 90 tablet 3 01/19/2025 Activebaclofen 5 mg oral tablet (1 source)gamma-Aminobutyric Acid-ergic AgonistStart: 01-22-2024 End: 49-55-1006lxlwuujn 5 mg oral tablet 5 mg = 1 tab(s), Oral, TID, take at night for first dose to assess response. Then take as needed for muscle spasms/pain, X 30 day(s), # 90 tab(s), Refills(s) 0, Pharmacy: [id number], 188, cm, 01/22/24 10:40:00 EDT, Height/Length Dosing, 86.2, kg, 01/22/24 10:40:00 EDT, Weight Dosing Start Date: 01/22/24 Stop Date: 02/21/24 Status: Orderedcefdinir 300 mg oral capsule (6 sources)Cephalosporin AntibacterialStart: 39-11-4905Dntbhlok 300 MG as directed Orally bid for 7 days Jun, Activecephalexin 500 mg oral capsule (14 sources)Cephalosporin AntibacterialStart: 21-93-2036neet 1 capsule by mouth twice dailyCephalexin 500 mg capsule Active 500 MG PO Twice daily 17 01December 22, 2024 12:00am Complies with drug therapyStart: 07-02-2024 End: 93-87-5477rmke 1 capsule by mouth twice dailyCephalexin 500 mg capsule Discontinued 500 MG PO Twice daily July 02, 2024 12:00am December 08, 2024 9:28amStart: 06-21-2024 End: 34-70-7878rmrj 1 capsule by mouth three times dailyCephalexin 500 mg capsule Discontinued 500 MG PO Three times daily 27 01June 21, 2024 3:03pm December 08, 2024 9:28amStart: 04-30-2024 End: 64-55-8511zbvq 1 capsule by mouth three times dailyCephalexin 500 mg capsule Discontinued 500 MG PO Three times daily 18 10April 30, 2024 1:00am May 07, 2024 10:06amcholecalciferol 0.05 mg oral capsule (20 sources)Vitamin DStart: 18-29-5976zkvvwxcjmfwzoev, vitamin D3, 50 mcg (2,000 unit) cap Take 2.5 (two and a half) capsules by mouth daily . 10/23/2021 Active Start: 81-57-9578krtw 1 tablet by mouth once dailyCholecalciferol (Vitamin D3) (Vitamin D3) 50 mcg (2,000 unit) Tablet Active 50 MCG PO Daily October 23, 2021 12:00am Complies with drug therapyCholecalciferol (VITAMIN D) 50 MCG (2000 UT) CAPS capsule Take 5,000 Units by mouth daily ActiveCholecalciferol (VITAMIN D) 50 MCG (2000 UT) CAPS capsule Take by mouth Activetake 1 capsule by mouth once dailyCholecalciferol (VITAMIN D3) 50 MCG (2000 UT) CAPS Take 2,000 Units by mouth daily 0 Activecolchicine 0.6 mg oral tablet (20 sources)Start: 03-18-0339uglu 1 tablet by mouth once dailycolchicine (COLCRYS) 0.6 MG tablet Take 1 tablet by mouth daily 30 tablet 3 03/14/2024 Activecyclobenzaprine hydrochloride 5 mg oral tablet (1 source)Muscle RelaxantStart: 12-17-2023 End: 21-19-5333nuzi 1 tablet by mouth three times dailycyclobenzaprine 5 mg Tab 5 mg = 1 tab(s), Oral, TID, X 30 day(s), # 90 tab(s), Refills(s) 0, Pharmacy: [id number], 188, cm, 12/17/23 10:03:00 EDT, Height/Length Dosing, 90, kg, 12/17/23 10:03:00 EDT, Weight Dosing Start Date: 12/17/23 Stop Date: 01/16/24 Status: Ordereddoxycycline monohydrate 100 mg oral capsule (1 source)Tetracycline-class DrugStart: 12-06-2021 End: 66-33-3247pfft 1 capsule by mouth twice dailydoxycycline monohydrate (MONODOX) 100 MG capsule Indications: COPD exacerbation (HCC) Take 1 capsule by mouth 2 times daily for 7 days 14 capsule 0 12/06/2021 12/13/2021 Active eplerenone 25 mg oral tablet (20 sources)Aldosterone AntagonistStart: 64-98-8622gune 1 tablet by mouth once dailyeplerenone (INSPRA) 25 MG tablet Indications: Shortness of breath , Edema of right lower leg , Edema of left foot Take 1 tablet by mouth daily 30 tablet 3 01/19/2025 ActiveStart: 09-11-2021 End: 51-60-8129rbqm 1 tablet by mouth once dailyEplerenone 25 mg tablet Discontinued 25 MG PO Daily October 23, 2021 12:00am November 19, 2023 10:52am esomeprazole 40 mg delayed release oral capsule (20 sources)Proton Pump InhibitorStart: 79-10-0201dehc 1 capsule by mouth once dailyEsomeprazole Magnesium 40 mg capsule,delayed release(DR/EC) Active 40 MG PO Daily December 08, 2024 12:00am Complies with drug therapyStart: 07-03-2023 take 20 mg by mouth once dailyesomeprazole 20 mg, Oral, Daily, Refills(s) 0 Start Date: 07/03/23 Status: Orderedesomeprazole (NexIUM) [address] capsule 1 capsule 1 (one) time each day at the same time ActiveComment on above:Take 20 mg by mouth DAILY (6 AM).ferrous sulfate 325 mg oral tablet (20 sources)Start: 74-25-7362nfxd 1 tablet by mouth once daily at breakfast ferrous sulfate (IRON 325) 325 (65 Fe) MG tablet Indications: Iron deficiency anemia, unspecified iron deficiency anemia type Take 1 tablet by mouth daily (with breakfast) 90 tablet 3 04/29/2024 ActiveStart: 12-18-2020 End: 19-15-7224pjpp 1 tablet by mouth once dailyFerrous Sulfate (Ferosul) 325 mg (65 mg iron) tablet Discontinued 325 MG PO Daily October 23, 2021 12:00am November 19, 2023 10:51amtake 1 tablet by mouth once dailyFerrous Sulfate 325 (65 Fe) MG 1 tablet Orally Once a day ActiveComment on above:Take 325 mg by mouth. furosemide 20 mg oral tablet (20 sources)Loop DiureticStart: 94-45-2353hedu 1 tablet by mouth once daily furosemide (LASIX) 20 MG tablet Indications: Shortness of breath , Edema of right lower leg , Edemaof left foot Take 1 tablet by mouth daily 30 tablet 11 01/20/2025 ActiveStart: 24-47-0913lfkk 1 tablet by mouth twice dailyfurosemide (LASIX) 20 MG tablet Take 1 tablet by mouth 2 times daily 60 tablet 11 11/25/2024 ActiveStart: 75-75-2139qnvi 1 tablet by mouth once dailyFurosemide 20 mg tablet Active 20 MG PO Daily October 23, 2021 12:00am Complies with drug therapyStart: 03-83-5591krqi 1 tablet by mouth once dailyfurosemide (LASIX) 20 MG tablet Take 1 tablet by mouth daily 30 tablet 11 12/14/2020 ActiveStart: 10-20-2020 End: 99-88-3809mntg 1 tablet by mouth once dailyfurosemide (LASIX) 20 MG tablet Take 1 tablet by mouth daily for 15 days 15 tablet 0 10/20/2020 11/04/2020 ActiveComment on above:Take 20 mg by mouth once daily.hydrocortisone 25 mg/ml topical cream (20 sources)CorticosteroidStart: 90-31-2295qeztjtzjkjfpba 2.5 % cream Indications: Other specified dermatitis Apply topically 2 (two) times a day as needed (Rash) Apply thin layer to affected areas on the face bid prn for flares 30 g 1 03/08/2024 Activemontelukast 10 mg oral tablet (20 sources)Leukotriene Receptor AntagonistStart: 12-24-2023 End: 73-34-5037fwip 1 tablet by mouth once daily at bedtimeMontelukast 10 mg tablet Discontinued 0 .ROUTE .COMPLEX December 24, 2023 1:33pm March 16, 2024 11:15am TAKE 1 TABLET BY MOUTH DAILY AT BEDTIMEStart: 11-19-2023 End: 62-22-6265bbggrnohqml (Singulair) 10 MG tablet 12/24/2023 ActiveNebulizer Air Tube/Plugs - (11 sources)Start: 14-66-9934Qffmkmboe Air Tube/Plugs - as directed qid for 30 days Pt has COVID - needs neb tubing, thank you Mar, Activeomeprazole 20 mg delayed release oral capsule (20 sources)Proton Pump InhibitorStart: 61-73-8585jnwv 1 capsule by mouth once dailyomeprazole 20 mg Cap-DR 20 mg = 1 cap(s), Oral, Daily, Refills(s) 0 Start Date: 03/03/24 Status: OrderedStart: 02-23-2019 End: 15-67-3352rrlg 1 tablet by mouth once dailyOmeprazole 20 mg Tablet,Delayed Release (Dr/Ec) Discontinued 20 MG PO Daily October 23, 2021 12:00amSept2024 9:33amtake 1 capsule by mouth every twenty-four hoursOmeprazole 20 MG 1 capsule Orally Once a day ActiveComment on above:Take 20 mg by mouth. predniSONE 20 mg oral tablet (17 sources)Start: 55-27-9943pdzy 2 tablets by mouth every twenty-four hours predniSONE 20 MG 2 tablets Orally Once a day for 5 days May, Active Start: 12-06-2021 End: 00-71-6202hryr 2 tablets by mouth once dailypredniSONE (DELTASONE) 20 MG tablet Indications: COPD exacerbation (HCC) Take 2 tablets by mouth daily for 5 days 10 tablet 0 12/06/2021 12/11/2021 ActiveStart: 12-14-2020 End: 98-84-9577tgqzceGWMK (DELTASONE) 20 MG tablet Take 1 tablet by mouth See Admin Instructions 38 tablet 0 12/14/2020 01/18/2021 ActiveStart: 10-20-2020 End: 40-99-8229rtns 2 tablets by mouth once dailypredniSONE (DELTASONE) 20 MG tablet Take 2 tablets by mouth daily for 5 days 10 tablet 0 Activerivaroxaban 20 mg oral tablet (20 sources)Factor Xa InhibitorStart: 36-08-6996tdaj 2 tablets by mouth once daily at dinnerRivaroxaban (Xarelto) 20 mg tablet Active 40 MG PO Daily December 22, 2024 10:33am must administer with evening meal Complies with drug therapyStart: 08-18-2020 End: 42-54-5453uuik 1 tablet by mouth once dailyrivaroxaban (XARELTO) 20 MG TABS tablet Take 1 tablet by mouth Daily with supper 90 tablet 3 10/14/2024 Active End: 08-48-2712tevvekrtpqn (Xarelto) 2.5 MG tablet 07/29/2024 Discontinued (Duplicate order)Comment on above:Take 20 mg by mouth daily with dinner. spironolactone 25 mg oral tablet (12 sources)Aldosterone AntagonistStart: 78-67-2504qnzv 1 tablet by mouth once dailyspironolactone (ALDACTONE) 25 MG tablet Take 1 tablet by mouth daily 90 tablet 1 07/06/2021 ActiveComment on above:Take 1 tablet by mouth once daily. Vitamin D (7 sources)Start: 93-28-0587Oathqlo D Refills(s) 0 Start Date: 09/17/23 Status: OrderedVitamin D3 5000 intl units (125 mcg) oral tab (1 source)Start: 10-71-0535mwhb 1 tablet by mouth once dailyVitamin D3 5000 intl units (125 mcg) oral tab 125 mcg = 1 tab(s), Oral, Daily, Refills(s) 0 Start Da te: 03/03/24 Status: Ordered Completed/Discontinued Medications MedicationDrug Class(es)DatesSig (Normalized)Sig (Original)[id number] 200 actuat albuterol 0.09 mg/actuat metered dose inhaler (20 sources)beta2-Adrenergic AgonistStart: 06-21-2024 End: 25-41-1852erqq 1 puff(s) by inhalation every four to six hours as needed Albuterol Sulfate 90 mcg/actuation HFA aerosol inhaler Discontinued 2 PUFF INHALATION EVERY 4-6 HOURS as needed for bronchospasm 8.5 June 21, 2024 12:00am December 08, 2024 9:33amStart: 01-28-2024 End: 74-49-5193crzl 2.5 mg by inhalation every four to six hours as needed for wheezingAlbuterol Sulfate 2.5 mg /3 mL (0.083 %) solution for nebulization Discontinued 2.5 MG INHALATION EVERY 4-6 HOURS as needed for shortness of breath or wheezing January 28, 2024 12:00am June 21, 2024 3:01pmStart: 12-06-2021 End: 20-40-7620kpbj 2 puff(s) by inhalation every six hours as needed for wheezingalbuterol sulfate HFA (PROVENTIL HFA) 108 (90 Base) MCG/ACT inhaler Indications: COPD exacerbation (HCC) Inhale 2 puffs into the lungs every 6 hours as needed for Wheezing 18 g 12/06/2021 12/24/2023 Discontinued (LIST CLEANUP) Albuterol Sulfate (2.5 MG/3ML) 0.083% 3 mL as needed Inhalation every 6 hrs prn for 10 days Not-Taking/PRNAlbuterol Sulfate (2.5 MG/3ML) 0.083% 3 mL as needed Inhalation every 6 hrs prn for 10 days Not-Takingallopurinol 300 mg oral tablet (20 sources)Xanthine Oxidase InhibitorStart: 06-05-2023 End: 58-62-2382asni 1 tablet by mouth once dailyAllopurinol 300 mg tablet Discontinued 300 MG PO Daily May 07, 2024 10:26am August 12, 2024 2:03pm Start: 05-29-2023 End: 25-70-3664gcqd 1 tablet by mouth once dailyAllopurinol 300 mg tablet Discontinued 0 .ROUTE .COMPLEX 90 May 29, 2023 3:21pm June 05, 2023 2:12pm TAKE 1 TABLET BY MOUTH DAILYStart: 05-29-2023 End: 13-02-2711daii 1 tablet by mouth once dailyAllopurinol Discontinued 0 .ROUTE .COMPLEX 90 May 29, 2023 3:21pm June 05, 2023 2:12pm TAKE 1 TABLET BY MOUTH DAILYStart: 02-23-2019 End: 24-77-6334ciyg 1 tablet by mouth once dailyAllopurinol 300 mg tablet Discontinued 300 MG PO Daily February 23, 2019 1:00am May 29, 2023 3:21pmComment on above:Take 300 mg by mouth once daily.aspirin 81 mg delayed release oral tablet (20 sources)Platelet Aggregation Inhibitor, Nonsteroidal Anti-inflammatory Drug Start: 01-28-2024 End: 84-63-8812kldo 1 tablet by mouth once dailyAspirin 81 mg tablet,delayed release (DR/EC) Discontinued 81 MG PO Daily January 28, 2024 12:00amFebruary 2024 12:26pmStart: 21-86-4401zgjyqed 81 MG chewable tablet Chew 81 mg in the morning. 01/01/2024 Activeazithromycin 250 mg oral tablet (20 sources)Macrolide AntimicrobialStart: 01-28-2024 End: 63-28-1021Hcuuklrhknya 250 mg tablet Discontinued 0 PO daily 09 02March 16, 2024 1:00am May 07, 2024 10:05am Take 2 on day 1 and then take 1 for the next 4 days (days 2-5)Start: 79-57-6373Wedphxesbart Active 0 PO daily 09 02January 28, 2024 12:00am Take 2 on day 1 and then take 1 for the next 4 days (days 2-5)Start: 06-05-2023 End: 89-91-6655qmyu 2 tablets by mouth once daily, then take 1 tablet by mouth onceAzithromycin 250 mg tablet Discontinued 250 MG PO daily 09 02June 05, 2023 1:00am November 19, 2023 10:51am Take 2 tablets today and then 1 for each additional day for 4 daysStart: 24-68-7390Cnzdrswuobip 250 MG as directed Orally 2 tabs po today, then 1 tab daily x 4 more days for 5 Jun, Active benzonatate 200 mg oral capsule (20 sources)Non-narcotic AntitussiveStart: 01-28-2024 End: 08-65-4508gkba 1 capsule by mouth three times daily as needed for cough Benzonatate 200 mg capsule Discontinued 200 MG PO Three times daily as needed for cough 30 March 16, 2024 1:00am May 07, 2024 10:25amStart: 55-98-2622hlpc 1 capsule by mouth every eight hoursBenzonatate 200 MG 1 capsule Orally Three times a day for 10 day(s) Jun, Activebetamethasone 0.5 mg/ml / clotrimazole 10 mg/ml topical cream (6 sources)Azole Antifungal, CorticosteroidStart: 04-30-2024 End: 10-29-6856Cljdehbkkhoo-Betamethasone 1-0.05 % cream Discontinued 1 APPLIC TOPICAL Twice daily 15 April 30, 2024 1:00am December 08, 2024 9:29am Calcium (4 sources)Phosphate Binder, CalciumCALCIUM ORAL Take by mouth. 0 ActiveComment on above:Take by mouth.calcium carbonate 1250 mg oral tablet (20 sources)Start: 10-23-2021 End: 07-76-2031vkay 1 tablet by mouth once dailyCalcium Carbonate (Calcium 500) 500 mg calcium (1,250 mg) Tablet Discontinued 500 MG PO Daily October 23, 2021 12:00am November 19, 2023 10:51amtake 2 tablets by mouth every twenty-four hours Calcium 600 MG 2 tablet with meals Orally Once a day Activetake 2 tablets by mouth every twenty-four hoursCalcium 600 MG 2 tablet with meals Orally Once a day Activetake 1 tablet by mouth once dailycalcium carbonate (OSCAL) 500 MG TABS tablet Take 1 tablet by mouth daily 0 Activefluticasone/umeclidin/vilanter (TRELEGY ELLIPTA INHALATION) (4 sources)fluticasone/umeclidin/vilanter (TRELEGY ELLIPTA INHALATION) Inhale as instructed. 0 ActiveComment on above:Inhale as instructed.gadoterate meglumine (DOTAREM) injection 20 mL (1 source)Start: 11-03-2019 End: 83-36-9843hzdwmycbqd meglumine (DOTAREM) injection 20 mL24 hr isosorbide mononitrate 30 mg extended release oral tablet (20 sources)Nitrate VasodilatorStart: 05-07-2024 End: 05-28-6989cwfz 1 tablet by mouth once daily, then take 1 tablet by mouth every twenty-four hoursIsosorbide Mononitrate 30 mg tablet extended release 24 hr Discontinued 30 MG PO Daily May 07, 2024 1:00am May 26, 2024 12:29pmStart: 96-98-9255tpasmbixem mononitrate ER (Imdur) 30 MG 24 hr tablet 12/25/2023 ActiveStart: 03-43-3128fdpbguoqnh mononitrate 30 mg ER Tab Refills(s) 0 Start Date: 12/25/23 Status: OrderedStart: 78-43-0057denq 0.5 tablet by mouth once dailyisosorbide mononitrate (IMDUR) 30 MG extended release tablet Take 0.5 tablets by mouth daily 30 tablet 3 12/24/2023 Activelatanoprost 0.05 mg/ml ophthalmic solution (20 sources)Prostaglandin AnalogStart: 03-16-2024 End: 09-12-8728Fuknzudoybe 0.005 % drops Discontinued DROPS OPHTHALMIC March 16, 2024 1:00am December 08, 2024 9:33amStart: 55-49-8782cuhpuddrzwo (Xalatan) 0.005 % ophthalmic solution 02/13/2023 ActiveStart: 95-07-2967smar 1 drop(s) into the eye(s) once daily in the eveninglatanoprost (XALATAN) 0.005 % ophthalmic solution INSTILL 1 DROP IN BOTH EYES once DAILY IN THE EVENING 09/27/2021 Activemeloxicam 15 mg oral tablet (4 sources)Nonsteroidal Anti-inflammatory Drugtake 1 tablet by mouth once daily meloxicam (MOBIC) 15 mg tablet Take 15 mg by mouth once daily. 0 ActiveComment on above:Take 15 mg by mouth once daily.methylPREDNISolone 4 mg oral tablet (13 sources)CorticosteroidStart: 05-26-2024 End: 01-30-1448Bclvcmaudfmjbojkwn 4 mg tablets,dose pack Discontinued 0 PO per package directions May 26, 2024 1:00am June 21, 2024 2:59pm PO PER PKG DIR for 6 daysStart: 40-33-0420zcqyiiGSCCJLHtqqma 4 MG as directed Orally for 6 days Jun, ActiveStart: 10-20-2020 End: 73-10-3241qybfpuAMWRTROaofcp sodium (SOLU-MEDROL) injection 125 mg metoprolol tartrate 25 mg oral tablet (15 sources)beta-Adrenergic BlockerStart: 05-07-2024 End: 55-32-5946Txnogemnid Tartrate 25 mg tablet Discontinued 12.5 MG PO Daily May 07, 2024 1:00am May 26, 2024 12:29pmStart: 71-90-1104sqau 1 tablet by mouth once dailyLopressor 25 mg oral tablet 25 mg = 1 tab(s), Oral, Daily, Refills(s) 0 Start Date: 12/25/23 Status:OrderedStart: 45-11-4356buie 0.5 tablet by mouth twice dailymetoprolol tartrate (LOPRESSOR) 25 MG tablet Take 0.5 tablets by mouth 2 times daily 60 tablet 12/24/2023 ActiveOmeprazole Magnesium (Prilosec Otc) 20 mg Tablet,Delayed Release (Dr/Ec) (7 sources)Start: 02-23-2019 End: 56-65-9472hnyc 1 tablet by mouth once dailyOmeprazole Magnesium (Prilosec Otc) 20 mg Tablet,Delayed Release (Dr/Ec) Discontinued 1 TAB PO Daily February 23, 2019 12:00am October 23, 2021 10:45amStart: 02-23-2019 End: 35-80-2238srwx 1 tablet by mouth once dailyOmeprazole Magnesium (Prilosec Otc) 20 mg Tablet,Delayed Release (Dr/Ec) Discontinued 1 TAB PO Daily February 23, 2019 1:00am October 23, 2021 11:45amsulfur hexafluoride microspheres (LUMASON) 60.7-25 MG injection 2 mL (1 source)Start: 01-17-2025 End: 50-63-0080qnjo 1 dose intravenously once2 mL, IntraVENous, IMG ONCE PRN, 1 dose, Starting on 01/17/25 at 1602, Until Fri01/17/25 at 1602, Other technetium sestamibi (CARDIOLITE) injection 10 millicurie (1 source)Start: 12-23-2023 End: 18-55-2399kgaj 1 dose intravenously once10 millicurie, IntraVENous, IMG ONCE PRN, 1 dose, Starting on Fri12/23/23 at 0706, Until Fri12/23/23 at 0657, Othertechnetium sestamibi (CARDIOLITE) injection 30 millicurie (1 source)Start: 12-23-2023 End: 22-87-4027uofn 1 dose intravenously once30 millicurie, IntraVENous, IMG ONCE PRN, 1 dose, Starting on Fri12/23/23 at 0706, Until Fri12/23/23 at 0807, Othertriamcinolone acetonide 1 mg/ml topical cream (11 sources)CorticosteroidStart: 02-23-2019 End: 73-96-1940Kpvboibjahhye Acetonide 0.1 % cream Discontinued 1 DOSE TOPICAL As Directed February 23, 2019 1:00am October 23, 2021 11:45amStart: 02-23-2019 End: 56-92-7812Xymbcmuomnkxm Acetonide Discontinued 1 DOSE TOPICAL As Directed February 23, 2019 1:00am October 23, 2021 11:45am Problems Active Problems Problem ClassificationProblemDateDocumented DateEpisodic/ChronicAbdominal pain (6 sources)Lower abdominal pain, unspecified; Translations: [Generalized abdominal pain]Onset: 69-41-3403NbzkalncAjycicdr foot deformities (5 sources)Hammer toe; Translations: [Other hammer toe(s) (acquired), left foot] 38-79-2027TnochtvIcqxpkuf reactions (3 sources)Eczema; Translations: [Other specified dermatitis]24-77-6776Frdlwrwu Cardiac and circulatory congenital anomalies (4 sources)Atrioventricular septal defect and common atrioventricular junction; Translations: [Atrioventricular septal defect]ChronicCardiac dysrhythmias (20 sources)Atrial flutter; Translations: [Unspecified atrial flutter]Onset: 56-23-5606NvqmwqqIzbejgv obstructive pulmonary disease and bronchiectasis (20 sources)Chronic obstructive lung disease; Translations: [Chronic obstructive pulmonary disease, unspecified]Onset: 11-51-7350TbhtsuuVbpspkl obstructive pulmonary disease and bronchiectasis (19 sources)Bronchitis, not specified as acute or chronic; Translations: [Bronchitis]Onset: 76-02-8373NhixtjivVphxuqg ulcer of skin (4 sources)Non-pressure chronic ulcer of right heel and midfoot limited to breakdown of skin; Translations: [Ulcer of heel and midfoot]68-53-1964Hluodyl Coronary atherosclerosis and other heart disease (2 sources)Angina pectoris, unspecified; Translations: [Angina pectoris, unspecified]Onset: 41-03-3019KpkwhzsFnictxwfsc and other anemia (1 source)Normocytic anemia; Translations: [Anemia, unspecified]Episodic Deficiency and other anemia (20 sources)Iron deficiency anemia; Translations: [Iron deficiency anemia, unspecified]77-71-6192TvmelocaLrpaptfzyg and other anemia (2 sources)Iron deficiency anemia, unspecified; Translations: [Iron deficiency anemia]Onset: 10-04-2021 Resolved: 64-66-8632ImpmtjeaGuvqebecc of lipid metabolism (6 sources)Dyslipidemia; Translations: [Hyperlipidemia, unspecified]12-08-2024 ChronicEsophageal disorders (20 sources)Gastroesophageal reflux disease; Translations: [Gastro-esophageal reflux disease without esophagitis]Onset: 10-04-2021 Resolved: 23-82-8960XrnohgiOevguam on above:Problem List clean-up per request of Phys. EHR CmteEssential hypertension (20 sources)Essential hypertension; Translations: [Essential (primary) hypertension]Onset: 11-83-7111EkgcjzeGuifnwfojegxoeep hemorrhage (12 sources)Rectal hemorrhage; Translations: [Hemorrhage of anus and rectum] EpisodicGout and other crystal arthropathies (20 sources)Gout; Translations: [Gout, unspecified]Onset: ChronicHeart valve disorders (11 sources)Aortic valve stenosis; Translations: [Nonrheumatic aortic (valve) stenosis]Onset: 08-91-9290JbyioooCatjxmbmwlwbz and screening for infectious disease (5 sources)Suspected disease caused by 2019-nCoV; Translations: [Suspected COVID-19 virus infection]EpisodicInflammatory conditions of male genital organs (12 sources)Acute infective balanitis; Translations: [Balanitis]04-30-2024 ChronicMycoses (20 sources)Onychomycosis due to dermatophyte ; Translations: [Tinea unguium] Onset: 243218-95-7237LyovwvyrEanqnccze of unspecified nature or uncertain behavior (1 source)Monoclonal gammopathy of uncertain significance; Translations: [Monoclonal gammopathy]ChronicNeoplasms of unspecified nature or uncertain behavior (2 sources)Neoplastic disease; Translations: [Neoplasm of unspecified behavior of bone, soft tissue, and skin]22-93-8409EuzhrcjeSwsmczmsgrmi breast conditions (2 sources)Mastodynia; Translations: [Pain of breast]EpisodicNutritional deficiencies (12 sources)Vitamin D deficiency; Translations: [Vitamin D deficiency, unspecified]Onset: 65-46-2514PsqqjbyLawyl aftercare (2 sources)Encounter for removal of suturesEpisodicOther circulatory disease (1 source)Vasculitis; Translations: [Arteritis, unspecified]ChronicOther circulatory disease (1 source)Nasal discharge; Translations: [Other specified symptoms and signs involving the circulatory and respiratory systems]EpisodicOther circulatory disease (1 source)Elevated blood-pressure reading, without diagnosis of hypertension; Translations: [Elevated blood-pressure reading, without diagnosis of hypertension]EpisodicOther circulatory disease (1 source)Elevated blood-pressure reading without diagnosis of hypertension; Translations: [Elevated blood-pressure reading, without diagnosis of hypertension]EpisodicOther connective tissue disease (12 sources)Trochanteric bursitis; Translations: [Trochanteric bursitis, unspecified hip]EpisodicOther connective tissue disease (2 sources)Olecranon bursitis; Translations: [Olecranon bursitis, right elbow] EpisodicOther connective tissue disease (2 sources)Trochanteric bursitis of right hip; Translations: [Trochanteric bursitis, right hip]EpisodicOther connective tissue disease (3 sources)Pain of toe of left foot; Translations: [Pain in left toe(s)] 85-20-2795DspehylvRohph diseases of veins and lymphatics (12 sources)Peripheral venous insufficiency; Translations: [Venous insufficiency (chronic) (peripheral)]EpisodicOther ear and sense organ disorders (1 source)Infective otitis externa; Translations: [Unspecified infective otitis externa]Onset: 72-75-7280RbfadbxJhcpb ear and sense organ disorders (4 sources)Sensorineural hearing loss, bilateral; Translations: [Sensorineural hearing loss, bilateral]Onset: 378624-49-0142FdvjxxuEfqdg ear and sense organ disorders (1 source)Sensorineural hearing loss, bilateral; Translations: [Sensorineural hearing loss, bilateral]Onset: 05-06-2980WaqcgtsYxswx ear and sense organ disorders (1 source)Impaired auditory discrimination; Translations: [Other abnormal auditory perceptions, bilateral]80-13-2518CxlmgumyTfjax eye disorders (1 source)Unspecified optic atrophy; 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Other gastrointestinal disorders (4 sources)Constipation; Translations: [Outlet dysfunction constipation]Episodic Other injuries and conditions due to external causes (2 sources)Other injury of other extensor muscle, fascia and tendon at forearm level, right arm, initial encounter; Translations: [Other injury of other extensor muscle, fascia and tendon at forearm level, right arm, initial encounter]EpisodicOther lower respiratory disease (1 source)Cough; Translations: [Cough]EpisodicOther lower respiratory disease (10 sources)Dyspnea, unspecified; Translations: [Other respiratory abnormalities]Onset: 65-70-3758OxlfmnmfNzpsr lower respiratory disease (1 source)Solitary pulmonary nodule; Translations: [Solitary pulmonary nodule] EpisodicOther lower respiratory disease (1 source)Solitary nodule of lung; Translations: [Solitary pulmonary nodule] EpisodicOther lower respiratory disease (3 sources)Chronic cough; Translations: [Chronic cough]28-42-5881EfkysfvsPrufq lower respiratory disease (2 sources)Shortness of breath; Translations: [Shortness of breath]Onset: 65-03-3262GdeyqanfUhlkx nervous system disorders (12 sources)Chronic pain; Translations: [Other chronic pain]ChronicOther nervous system disorders (20 sources)Neuropathy; Translations: [Idiopathic progressive neuropathy]Onset: 515174-05-4184YtnpwsoUvjnf nervous system disorders (8 sources)Idiopathic progressive polyneuropathy; Translations: [Idiopathic progressive neuropathy]35-82-3964SbdosfkPgfzw non-traumatic joint disorders (12 sources)Hip pain; Translations: [Pain in unspecified hip]EpisodicOther non- traumatic joint disorders (1 source)Pain in left kneeEpisodicOther non-traumatic joint disorders (2 sources)Arthralgia of the lower leg; Translations: [Pain in right knee] EpisodicOther screening for suspected conditions (not mental disorders or infectious disease) (2 sources)Imaging result abnormal; Translations: [Abnormal findings on diagnostic imaging of other specified body structures]ChronicOther skin disorders (1 source)Finding of color of limb; Translations: [Disorder of pigmentation, unspecified]EpisodicOther skin disorders (1 source)Dyshidrosis [pompholyx]; Translations: [Dyshidrosis [pompholyx]] EpisodicOther skin disorders (1 source)Vesicular eczema of hands and/or feet; Translations: [Dyshidrosis [pompholyx]]EpisodicOther skin disorders (2 sources)Seborrheic keratosis; Translations: [Other seborrheic keratosis] 64-91-9383QlaoilbwFusom skin disorders (5 sources)Actinic keratosis; Translations: [Actinic keratosis]03-08-2024 EpisodicOther skin disorders (2 sources)Inflamed seborrheic keratosis; Translations: [Inflamed seborrheic keratosis]51-71-7168KcbrddbkFskny skin disorders (2 sources)Callosity; Translations: [Corns and callosities]26-25-2024Fpufrwzz Other upper respiratory disease (10 sources)Nasal congestion; Translations: [Nasal congestion]73-70-0530Qnrwqqsl Other upper respiratory disease (7 sources)Nasal congestion; Translations: [Other disease of nasal cavity and sinuses]31-65-5576EarlrxqaDappe upper respiratory infections (2 sources)Chronic sinusitis, unspecified; Translations: [Chronic sinusitis] ChronicOther upper respiratory infections (14 sources)Acute pharyngitis; Translations: [Acute pharyngitis, unspecified] Onset: 169598-39-1746ScnkygwxDrvthp media and related conditions (5 sources)Perforation of right tympanic membrane; Translations: [Unspecified perforation of tympanic membrane, right ear]62-13-2131RnpvspcrEfsmtbgp codes; unclassified (1 source)Peripheral edema; Translations: [Edema, unspecified]EpisodicResidual codes; unclassified (1 source)Edema of lower extremity; Translations: [Localized edema]Episodic Residual codes; unclassified (1 source)Tobacco use; Translations: [Tobacco use]EpisodicResidual codes; unclassified (3 sources)Localized edema; Translations: [Localized edema]Onset: 01-19-2025 EpisodicResidual codes; unclassified (1 source)Tobacco user; Translations: [Tobacco use]EpisodicResidual codes; unclassified (6 sources)Uncircumcised penis; Translations: [Other specified health status] 07-09-2703RhljkoeySoxvnewf codes; unclassified (3 sources)Other specified health status; Translations: [Other specified conditions influencing health status]81-84-8249RgzvkijwYiyzyioj codes; unclassified (3 sources)Edema of right lower leg; Translations: [Localized edema]01-19-2025 EpisodicResidual codes; unclassified (3 sources)Edema of foot; Translations: [Localized edema]39-13-0824LhsogasyZogr and subcutaneous tissue infections (4 sources)Cellulitis of left finger; Translations: [Cellulitis of finger of left hand]08-09-4927TzuogunqAawrjbrponv; intervertebral disc disorders; other back problems (20 sources)Degeneration of lumbar intervertebral disc; Translations: [Other intervertebral disc degeneration, lumbar region]91-17-1502SamqzshObekexyhdfy; intervertebral disc disorders; other back problems (4 sources)Sacrococcygeal disorders, not elsewhere classified; Translations: [Disorder of sacrum]Onset: 90-18-9980DzwvdyorZrljfgg and strains (2 sources)Sprain of knee and leg; Translations: [Sprain and strain of other specified sites of knee and leg]EpisodicSuperficial injury; contusion (3 sources)Abrasion of foot, infected; Translations: [Abrasion, right foot, initial encounter]88-04-1847QmnpuzusApkcksufynbq (1 source)Compression fracture of thoracic vertebra; Translations: [Compression fracture of thoracic vertebra, initial encounter, unspecified thoracic vertebral level (HCC)]Unclassified (1 source)CONTACT W/AND (SUSP) EXPOS COVID-19; Translations: [CONTACT W/AND (SUSP) EXPOS COVID-19]Onset: 57-79-0525Zlhbcgmaayhf (1 source)Unspecified infective otitis externa; Translations: [Unspecified infective otitis externa]Onset: 92-37-3905Uwqozrbvrncq (1 source)Need for prophylactic vaccination and inoculation, Influenza; Translations: [Need for prophylactic vaccination and inoculation, Influenza] Onset: 56-70-2312Wijishicqfuu (1 source)Body mass index 27.0-27.9, adult; Translations: [Body mass index 27.0- 27.9, adult]Onset: 01-81-8663Iqqzocjrjezy (1 source)Bacterial infection, unspecified, in conditions classified elsewhere and of unspecified site; Translations: [Bacterial infection, unspecified, in conditions classified elsewhere and of unspecified site]Onset: 05-07-2017 Unclassified (1 source)Pain in joint, pelvic region and thigh; Translations: [Pain in joint, pelvic region and thigh]Onset: 79-81-2043Idlnagenpjwm (1 source)Special screening for malignant neoplasm of prostate; Translations: [Special screening for malignant neoplasm of prostate]Onset: 06-29-2014 Unclassified (1 source)Chronic atrial fibrillation, unspecified; Translations: [Chronic atrial fibrillation, unspecified (HCC)]Onset: 51-61-7333Egolandr veins of lower extremity (18 sources)Venous stasis ulcer of leg; Translations: [Varicose veins of right lower extremity with ulcer of unspecified site]Onset: Episodic Past or Other Problems Problem ClassificationProblemDateDocumented DateEpisodic/ChronicBacterial infection; unspecified site (1 source)Bacterial infectious disease; Translations: [Bacterial infection, unspecified, in conditions classified elsewhere and of unspecified site]Onset: 35-13-0642BjkfiqnwCmnrugzppy and other anemia (20 sources)Anemia; Translations: [Anemia, unspecified]Onset: 02-24-2019 77-48-2992PgsspoqeFypiifg and fatigue (10 sources)Fatigue; Translations: [Other fatigue]Onset: 22-85-2230Hgmzjhwo Nonspecific chest pain (4 sources)Chest pain; Translations: [Chest pain, unspecified]Onset: 06-23-2024 84-62-2755GfjyohqlMcpuv and unspecified benign neoplasm (2 sources)Benign neoplasm of colon; Translations: [Benign neoplasm of colon] Onset: 02-33-4673RgfbfewuFowmc connective tissue disease (1 source)Loss of height; Translations: [Loss of height]Onset: 10-26-2015 EpisodicOther connective tissue disease (1 source)Decrease in height; Translations: [Loss of height]Onset: 10-26-2015 EpisodicOther ear and sense organ disorders (2 sources)Acute otitis externa; Translations: [Acute swimmers' ear]Onset: 49-26-7174IigdgxhdHnhos injuries and conditions due to external causes (1 source)Closed injury of head; Translations: [Closed head injury, initial encounter]EpisodicOther lower respiratory disease (20 sources)Nodule of lung; Translations: [Solitary pulmonary nodule]Onset: 106253-64-3874YzpvzchrUidrf lower respiratory disease (1 source)Other abnormalities of breathing; Translations: [OTHER ABNORMALITIES OF BREATHING]Onset: 36-35-0528KlugtpqtLthfi lower respiratory disease (13 sources)Dyspnea; Translations: [Shortness of breath]Onset: 04-29-2024 96-16-9935GkeuazvxSasrv non-epithelial cancer of skin (20 sources)Basal cell carcinoma of face; Translations: [Basal cell carcinoma of skin of unspecified parts of face]Onset: 098447-34-1113KcpymqpxZbwel non- traumatic joint disorders (1 source)Arthralgia of the pelvic region and thigh; Translations: [Pain in joint, pelvic region and thigh]Onset: 16-29-1970BnfhwiahHfxfr nutritional; endocrine; and metabolic disorders (1 source)Overweight; Translations: [Overweight]Onset: 20-10-7762SnsapyyyBhfgv nutritional; endocrine; and metabolic disorders (1 source)Overweight; Translations: [Overweight]Onset: 33-60-8376PzilcbrbFhjin nutritional; endocrine; and metabolic disorders (1 source)Body mass index 25-29 - overweight; Translations: [Body mass index 27.0-27.9, adult]Onset: 23-96-3195YohjlmuhMkhth screening for suspected conditions (not mental disorders or infectious disease) (20 sources)Electrocardiogram abnormal; Translations: [Abnormal electrocardiogram [ECG] [EKG]]Onset: 92-45-6516KdjrxqemZimisdan codes; unclassified (1 source)Requires influenza virus vaccination; Translations: [Need for prophylactic vaccination and inoculation, Influenza]Onset: 87-53-2664Wfiblpvv Unclassified (20 sources)Onset: 12-06-2021 Resolved: Viral infection (2 sources)Herpes zoster without complication; Translations: [Herpes zoster without mention of complication]Onset: 88-98-7777Wjcryzfg Results Test NameValueInterpretationReference RangeFacilityVascular duplex reflux venous insufficiency study bilateralOrdered By: William Heath on 71-32-3884Phfj FV Mid reflux1.8 sBon [facility] Work Phone: Left GSV Junc Diam4.9 mmBon [employer] Work Phone: Left GSV Junc Rfx3.4 sBon [employer] Work Phone: Left Pop Rfx1.2 sBon [employer] Work Phone: Left SSV Mid Diam2.40 mmBon [facility] Work Phone: Left SSV Mid Rfx4.8 sBon [employer] Work Phone: Left SSV Prox Diam2.48 mmBon [employer] Work Phone: Left SSV Prox Rfx2.3 sBon [employer] Work Phone: Right AASV Prox reflux0.0 sBon [facility] Work Phone: Right AASV proximal diameter2.30 mmBon [facility] Work Phone: Right CFV Rfx1.2 sBon [employer] Work Phone: Right FV Mid reflux3.7 sBon [facility] Work Phone: Right FV Prox reflux3.9 sBon [facility] Work Phone: Right GSV Junc Diam5.5 mmBon [employer] Work Phone: Right GSV Junc Rfx0.0 sBon [facility] Work Phone: Right Pop Rfx2.5 sBon [employer] Work Phone: Right SSV Mid Diam2.00 mmBon [employer] Work Phone: Right SSV Mid Rfx3.2 sBon [employer] Work Phone: Right SSV Prox Diam1.90 mmBon [employer] Work Phone: Right SSV Prox Rfx2.4 sBon [employer] Work Phone: [phone] [employer] Work Phone: Vascular duplex reflux venous insufficiency study bilateralon 93-69-5390Ilny venous insufficiency (>1.0 sec) noted in the right common femoral, femoral and popliteal veins. Superficial venous insufficiency (>0.5 sec) noted in the right small saphenous vein. Deep venous insufficiency (>1.0 sec) noted in the left femoral and popliteal veins. Superficial venous insufficiency (>0.5 sec) noted in the left small saphenous and saphenofemoral junction veins. No evidence of acute deep vein thrombosis in the right lower extremity. Vessels demonstrate normal compressibility, color filling, and phasic and spontaneous flow. No evidence of acute deep vein thrombosis in [...] 2.3 mm, 0 seconds There is a testing machine operator noted in the distal calf with no reflux noted.[facility] CV CPACSRadiology Study observation (narrative)Bon [facility] Av[facility]aleCollabRx [facility] CenterBasic Metabolic Panelon 80-68-3116Fwhnu gap [Moles/Vol]7 mmol/LLow9 - 17 mmol/LBon [facility] HealthCalcium [Mass/Vol]9.7 mg/dL8.6 - 10.4 mg/dLBon [facility] HospitalChloride [Moles/Vol]103 mmol/L98 - 107 mmol/LBon [facility] HospitalCO2 [Moles/Vol]29 mmol/L20 - 31 mmol/LBon [facility] HospitalCreatinine [Mass/Vol] 1.5 mg/dLHigh0.7 - 1.2 mg/dLBon [facility]itan HospitalEst, Glom Filt Gsdw04Lfb- PINFBon Good Samaritan HospitalComment on above: These results are not intended [...] therapy that affects renal tubular secretion. Glucose [Mass/Vol]100 mg/sQKydv94 - 99 mg/dLBon [facility] Interpretation and review of laboratory resultsAbnormalStonesprings Hospital Center Potassium [Moles/Vol]3.7 mmol/L3.7 - 5.3 mmol/LBon [facility] HospitalSodium [Moles/Vol]139 mmol/L135 - 144 mmol/LBon [facility] HospitalUrea nitrogen [Mass/Vol]30 mg/dLHigh8 - 23 mg/dLBon [facility] CenterBasic Metabolic Profon 28-64-4305Hqmna gap [Moles/Vol]7 mmol/LLow9-17Paul[facility] County HospitalComment on above:Performed By: #### BMP #### [facility] [address] [place] [address] Tooth Clerk: KIMANI Sawyeralcium [Mass/Vol]9.7 mg/dLNormal8.6-10.4Paul[facility] County HospitalComwalter p. [facility] on above:Performed By: #### BMP #### [facility] [address] [place] [address] Tooth Clerk: KIMANI Sawyerhloride [Moles/Vol]103 mmol/HSiznpc52-342UlvkePaulding County HospitalComment on above:Performed By: #### BMP #### [facility] [address] [place] [address] Tooth Clerk: KIMANI SawyerO2 [Moles/Vol]29 mmol/UGnolmu24-84TdhccPaulding County HospitalComment on above:Performed By: #### BMP #### [facility] [address] [id number] Tooth Clerk: KIMANI Sawyerreatinine [Mass/Vol]1.5 mg/dLHigh0.7-1.2MCleveland Clinic Lutheran HospitalComment on above:Performed By: #### BMP #### [facility] [address] [place] [address] Tooth Clerk: William Iqbal MDGFR/1.73 sq M.predicted among non-blacks MDRD (S/P/Bld) [Vol rate/Area]46 mL/min/{1.73_m2}Low>60Paulding County HospitalComment on above:Result Comment: These results are not intended for [...] or following therapy that affects renal tubular secretion.Performed By: #### BMP #### [facility] [address] [place] [address] Tooth Clerk: William Iqbal MDGlucose [Mass/Vol]100 mg/sEMyfx45-50QmjcdCleveland Clinic Lutheran HospitalComment on above:Performed By: #### BMP #### [facility] [address] [place] [address] Tooth Clerk: VALENTINO Sawyerotassium [Moles/Vol]3.7 mmol/LNormal3.7-5.3[facility] River GulfportComment on above:Performed By: #### BMP #### [facility] [address] [place], [place] [id number] Tooth Clerk: BRICE Sawyerodium [Moles/Vol]139 mmol/NJkmtlt728-678ZksbnPaulding County HospitalComment on above:Performed By: #### BMP #### [facility] [address] [place], [place] [id number] Tooth Clerk: William Iqbal MDUrea nitrogen [Mass/Vol]30 mg/dLHigh8-23Paulding County HospitalComment on above:Performed By: #### BMP #### [facility] [address] [place] [address] Tooth Clerk: William Iqbal MDVascular duplex lower extremity venous bilateralon 01-19-2025 Negative for right lower extremity DVT/SVT. There are a few visualized varices the right lower extremity and subcutaneous edema. [facility] RIS CONSOLIDATEDEXAM: VAS DUP LOWER EXTREMITY VENOUS BILATERAL HISTORY: [...] Vein: Patent, compressible. Peroneal Vein: Patent, compressible. Kaitara Taraka Details A wright scale, color Doppler imaging and spectral Doppler analysis ultrasound was performed. During the study longitudinal and transverse views were obtained. Pulsed wave doppler was performed. Overall the study quality was good.[facility] Albert Jefferson, DO - 01/19/2025 EXAM: VAS DUP LOWER [...] the right lower extremity and subcutaneous edema. [facility]CareRadiology Study observation (narrative)[facility] duplex lower extremity venous bilateralOrdered By: Albert Burnham on 04-98-7388[facility] [employer] Phone: Cardiac echo study ProcedureOrdered By: Asher Ugarte on 28-02-6141Ul Root Index1.58 cm/m2[facility] Phone: Aortic Root3.4 cmSt. [facility]'S Hospital [facility] Phone: Ascending Aorta3.3 cmBon [employer] Phone: Ascending Aorta Index1.53 cm/m2[facility] Phone: AV Area by Peak Velocity2.[address] Phone: AV Area by VTI2.2 cm2Bon [employer] Phone: AV Mean Vgxlensg2ycNdBgd [employer] Work Phone: [phone] Mean Velocity0.9 m/sBon [facility] Work Phone: [phone] Peak Wglzxksi5vuFnFvj [employer] Work Phone: [phone] Peak Velocity1.3 m/sBon [facility] Work Phone: [phone] Velocity Ratio0.77[facility] Work Phone: [phone] VTI30.0 cmBon [employer] Work Phone: [phone]/BSA Peak Velocity1.1 cm2/m2Bon [employer] Work Phone: [phone]/BSA VTI1.0 cm2/m2Bon [employer] Work Phone: [phone]/E' Aamzfme81.93Bon [employer] Work Phone: [phone]/E' Ratio (Averaged)11.69Bon [employer] Work Phone: [phone]/E' Wcovyf07.46Bon [employer] Work Phone: [phone] BP44 %Vtrpdlzb26 - 100 %[facility] Work Phone: [phone] Ykcejbigw48 %[facility] Work Phone: [phone]. RA Todutppx90riYpVjy [employer] Work Phone: [phone] Shortening 2D26 %28 - 44 %[facility] Work Phone: [phone] longitudinal strain-18.5 %[facility] Work Phone: [phone] and review of laboratory results AbnormalBon [employer] Work Phone: [phone] cm0.6 - 1.0 cmBon [employer] Work Phone: [phone] Diameter4.8 cmBon [employer] Work Phone: LA Size Index2.23 cm/m2Bon [facility] Work Phone: [phone] Volume A-L A4C89 xNYghmasit24 - 58 mLBon [facility] Work Phone: [phone] Volume A-L E3M099 sRXlqyajwm08 - 58 mLBon [employer] Work Phone: [phone] Volume A/L107 mLBon [employer] Work Phone: LA Volume BP104 xGZwmnzkye93 - 58 mLBon [employer] Work Phone: [phone] Volume Index A-L A2C41 mL/m216 - 34 mL/m2Bon [facility] Work Phone: LA Volume Index A-L A4C57 mL/m216 - 34 mL/m2Bon [employer] Work Phone: LA Volume Index A/L50 mL/m216 - 34 mL/m2Bon [employer] Work Phone: [phone] Volume Index BP48 ml/m216 - 34 ml/m2Bon [employer] Work Phone: LA Volume Index MOD A2C41 ml/m216 - 34 ml/m2Bon [employer] Work Phone: LA Volume Index MOD A4C55 ml/m216 - 34 ml/m2Bon [employer] Work Phone: LA Volume MOD A2C89 tPSoyzigji30 - 58 mLBon [facility] Work Phone: [phone] Volume MOD F5E936 jXUhxrwebf85 - 58 mLBon [facility] Work Phone: LA/AO Root Ratio1.41Bon [facility] Work Phone: LV E' Lateral Velocity6.59 cm/sBon [facility] Work Phone: [phone] E' Septal Velocity5.78 cm/sBon [facility] Work Phone: [phone] EDV Q8R959 mLBon [employer] Work Phone: [phone] EDV X3K864 mLPinnacleCare Work Phone: [phone] EDV BP119 mL67 - 155 mLBon [facility] Work Phone: [phone] EDV Index A2C56 mL/m2Bon [facility] Work Phone: [phone] EDV Index A4C54 mL/m2Bon [employer] Work Phone: [phone] EDV Index BP55 mL/m2Bon [employer] Work Phone: [phone] Ejection Fraction A2C47 %[facility] Work Phone: [phone] Ejection Fraction A4C46 %[facility] Work Phone: [phone] ESV A2C64 mLPinnacleCare Work Phone: [phone] ESV A4C64 mLPinnacle[facility] Work Phone: [phone] ESV BP67 kGQdycjwqq95 - 58 mLPinnacleCare Work Phone: [phone] ESV Index A2C30 mL/m2Bon [employer] Work Phone: [phone] ESV Index A4C30 mL/m2Bon [employer] Work Phone: [phone] ESV Index BP31 mL/m2Bon [employer] Work Phone: [phone] Mass 2D132.3 g88 - 224 gBon [facility] Work Phone: LV Mass 2D Index61.5 g/m249 - 115 g/m2Bon [employer] Work Phone: LV RWT Ratio0.38Bon [employer] Work Phone: [phone] cm4.2 - 5.9 cmBon [employer] Work Phone: [phone] Index2.19 cm/m2Bon [employer] Work Phone: [phone] cmBon [facility] Work Phone: LVIDs Index1.63 cm/m2Bon [facility] Work Phone: [phone] Area3.1 cm2Bon [employer] Work Phone: [phone] Diameter2.0 cmBon [employer] Work Phone: [phone] Mean Ucenxqmu6dpRcYloPinnacleCare Work Phone: LVOT Peak Egpizzif4pwZmCdrPinnacleCare Work Phone: [phone] Peak Velocity1.0 m/sBon [employer] Work Phone: [phone] Stroke Volume Index29.5 mL/m2Bon [employer] Work Phone: LVOT SV63.4 mlBon [employer] Work Phone: [phone] VTI20.2 cmPinnacleCare Work Phone: [phone]:AV VTI Index0.67Bon [employer] Work Phone: [phone] cm0.6 - 1.0 cmPinnacleCare Work Phone: [phone] A Velocity0.26 m/sBon [employer] Work Phone: [phone] E Velocity0.72 m/sBon [employer] Work Phone: [phone] E Wave Deceleration Jvyu113.7 msPinnacleCare Work Phone: [phone] E/A2.77Bon [employer] Work Phone: [phone] Max Velocity1.6 m/sBon [facility] Work Phone: [phone] Artery PLN68xiQyAsd [facility] Phone: PV Max Velocity1.0 m/sBon [employer] Phone: [phone] Peak Sdrnoowl3vpJfNeh [employer] Phone: [phone] Lkppqq998 mlBon [employer] Phone: [phone] Volume Index A4C67 mL/m2Bon [employer] Phone: [phone] Basal Dimension4.5 cmBon [employer] Phone: [phone] Mid Dimension3.5 cmBon [employer] Phone: [phone] [employer] Phone: IVFUA5.1 cmAbnormal1.7 cmBon [employer] Phone: [phone] Max Velocity3.49 m/sBon [employer] Phone: [phone] Peak Njrxjjxw55isWiMbr [employer] Phone: Bon [employer] Phone: Cardiac echo study Procedureon 09-64-9928Bvpf Ventricle: Mildly reduced left ventricular systolic function. EF by visual approximation is 47%. EF by 2D Simpsons Biplane is 44%. Left ventricle size is normal. Normal wall thickness. Ventricular mass is normal. Global hypokinesis present. Right Ventricle: Right ventricle is mildly dilated. RV Mid Dimension is 3.5 cm. Moderately reduced systolic function. TAPSE is abnormal. RV free wall strain is abnormal. Aortic Valve: Mild sclerosis of the aortic valve cusps. Mitral Valve: Mild regurgitation. Tricuspid Valve: Moderate to severe regurgitation with an eccentrically directed jet and may underestimate severity. Moderately elevated RVSP, consistent with moderate pulmonary hypertension. RVSP is 64 mmHg. Left Atrium: Left atrium is moderately dilated. Left atrial volume index is moderately increased (42-48 mL/m2) mL/m2. Right Atrium: Right atrium is severely dilated. Image quality is fair. Contrast used: Lumason. Technically [...] performed. Lumason contrast was given to enhance imaging.[facility] CV CPACSCardiac echo study Procedure on 41-63-1148Onqwzmjxa Study observation (narrative)[facility] Basophils Auto (Bld) [#/Vol]Ordered By: Faizan Bragg on 93-80-0628Ycnbycniw (Bld) [#/Vol]0.1 10 3/uL0.0-0.1FGrand Lake Joint Township District Memorial HospitalBasophils/100 WBC Auto (Bld)Ordered By: Faizan Bragg on 08-23-7521Inohipcvm/100 WBC (Bld)1.0 % 0.2-2.0[facility] HospitalCholesterol in LDL Calc [Mass/Vol] Ordered By: Faizan Bragg on 65-94-8099Gmfncwbpxdm in LDL [Mass/Vol]52.8 mg/dL [facility] HospitalComment on above:<100 mg/dl LCVWLCB178-254 mg/dl NEAR OR ABOVE ANOTLBW591-914 mg/dl BORDERLINE YWTO028-804 mg/dl HIGH>190 mg/dl VERY HIGHCholesterol in VLDL Calc [Mass/Vol]Ordered By: Faizan Bragg on 10-86-4720Furrncgvcbb in VLDL [Mass/Vol]6.2 mg/dLMiddletown HospitalEosinophils/100 WBC Auto (Bld)Ordered By: Faizan Bragg on 12-08-2024 Eosinophils/100 WBC (Bld)1.9 %0.9-7.0[facility] Erythrocyte distribution width Auto (RBC) [Ratio]Ordered By: Faizan Bragg on 83-37-4114Jvglpwnqyfe distribution width (RBC) [Ratio]13.4 %11.0-15.0[facility] HospitalGlobulin Calc (S) [Mass/Vol]Ordered By: Faizan Bragg on 06-60-2477Riwxympu (S) [Mass/Vol]4.0 g/dLMiddletown Hospital Glomerular filtration rate (GFR) estimation in non- AmericanOrdered By: Faizan Bragg on 96-18-4819LAE/1.73 sq M.predicted among non-blacks MDRD (S/P/Bld) [Vol rate/Area]55 mL/min/{1.73_m2}Low>=60 mL/min/1.73m 2FGrand Lake Joint Township District Memorial HospitalHematocrit Auto (Bld) [Volume fraction]Ordered By: Faizan Bragg on 05-30-6905Ykkcuwazpj (Bld) [Volume fraction]35.3 %Low42.0-54.0[facility] HospitalHemoglobin [Mass/volume] in BloodOrdered By: Faizan Bragg on 66-06-4445Cernizsirm (Bld) [Mass/Vol]11.5 g/dLLow14.0-18.0[facility] HospitalLaboratory - Chemistry and Chemistry - challengeOrdered By: Faizan Bragg on 57-08-7605Pypwrbt [Mass/Vol]3.4 g/dL3.4-5.0[facility] HospitalALP [Catalytic activity/Vol]124 U/SShoj57-744YdzesfriuMiddletown HospitalALT [Catalytic activity/Vol]28 U/V74-27RojtbfdlhMiddletown HospitalAST [Catalytic activity/Vol]21 U/T58-80XdsjafhjaMiddletown Hospital Bilirubin [Mass/Vol]1.1 mg/dLHigh0.2-1.0[facility] HospitalCalcium [Mass/Vol]8.7 mg/dL8.5-10.1FGrand Lake Joint Township District Memorial HospitalChloride [Moles/Vol]103 mmol/D87-536XueiniwyuMiddletown HospitalCholesterol [Mass/Vol]117 mg/dL<=200M[facility] HospitalCholesterol in HDL [Mass/Vol]58 mg/pO76-99PrsxsqzgmMiddletown HospitalComment on above:> or =60 mg/dl - LOW CARDIOVASCULAR RISK<40 mg/dl - HIGH CARDIOVASCULAR RISKCO2 [Moles/Vol]29.5 mmol/L21.0-32.0[facility] HospitalCreatinine [Mass/Vol]1.26 mg/dL0.70-1.30M[facility] HospitalFerritin [Mass/Vol]98.0 ng/mL26.0-388.0[facility] HospitalGFR/1.73 sq M.predicted MDRD (S/P/Bld) [Vol rate/Area]mL/min/{1.73_m2}>=60 mL/min/1.73m 2 [facility] HospitalGlucose [Mass/Vol]91 mg/aS83-383KmmnuoitoMiddletown HospitalPotassium [Moles/Vol]4.4 mmol/L3.5-5.1FGrand Lake Joint Township District Memorial HospitalProtein [Mass/Vol]7.4 g/dL6.4-8.2FGrand Lake Joint Township District Memorial Hospital Sodium [Moles/Vol]138 mmol/J844-790EjiginqsmMiddletown HospitalTriglyceride [Mass/Vol]31 mg/dL<=150M[facility] HospitalUrate [Mass/Vol]5.5 mg/dL3.5-7.2FGrand Lake Joint Township District Memorial HospitalUrea nitrogen [Mass/Vol]22.0 mg/dL High7.0-18.0[facility] HospitalUrea nitrogen/Creatinine [Mass ratio]17.5 mg/mgMiddletown HospitalLaboratory - Hematology and Cell countsOrdered By: Faizan Bragg on 69-92-3078Xcjgjxbi granulocytes/100 WBC (Bld)0.2 %0.0-0.5FGrand Lake Joint Township District Memorial HospitalLeukocytes [#/volume] corrected for nucleated erythrocytes in Blood by Automated counOrdered By: Faizan Bragg on 19-95-3931DCB corrected for nucl RBC Auto (Bld) [#/Vol]5.8 10 3/uL4.0-11.0[facility] HospitalLymphocytes Auto (Bld) [#/Vol] Ordered By: Faizan Bragg on 34-44-3530Hxsipbhymkp (Bld) [#/Vol]0.9 10 3/uLLow 1.2-3.8M[facility] HospitalLymphocytes/100 WBC Auto (Bld)Ordered By: Faizan Bragg on 52-82-7803Kkpsamslsav/100 WBC (Bld)15.8 %Low20.5-60.0 [facility] Auto (RBC) [Entitic mass]Ordered By: Faizan Bragg on 99-71-3559NPG (RBC) [Entitic mass]31.8 pg25.9-34.0[facility] HospitalHC Auto (RBC) [Mass/Vol]Ordered By: Faizan Bragg on 12-08-2024 MCHC (RBC) [Mass/Vol]32.6 g/dL29.9-35.2FGrand Lake Joint Township District Memorial HospitalMCV Auto (RBC) [Entitic vol]Ordered By: Faizan Bragg on 48-49-2888OTZ (RBC) [Entitic vol]97.5 yDCspp28.0-94.0[facility] HospitalMicroalbumin [Mass/volume] in UrineOrdered By: Faizan Bragg on 51-14-6712Gwszvdd DL <= 20 mg/L (U) [Mass/Vol]mg/dL<=30.0M[facility] HospitalMonocytes Auto (Bld) [#/Vol]Ordered By: Faizan Bragg on 44-35-6490Phosyxfvx (Bld) [#/Vol]0.8 10 3/uL0.3-0.8[facility] HospitalMonocytes/100 WBC Auto (Bld)Ordered By: Faizan Bragg on 53-96-6835Mvrvwotbt/100 WBC (Bld)13.7 %High1.7-12.0 [facility] HospitalNeutrophils Auto (Bld) [#/Vol]Ordered By: Faizan Bragg on 88-30-2169Zdmiloldukm (Bld) [#/Vol]3.9 10 3/uL1.4-6.5FGrand Lake Joint Township District Memorial HospitalNeutrophils/100 WBC Auto (Bld)Ordered By: Faizan Bragg on 22-74-2161Zvikdcckzjz/100 WBC (Bld)67.4 %43.0-75.0[facility] HospitalNo Panel InformationOrdered By: Faizan Bragg on 59-22-0807Rxyzb Random Creatinine<13.00 mg/dLLow20.00-300.00[facility] Eosinophils # (Auto)0.1 10 3/uL0.0-0.7FGrand Lake Joint Township District Memorial HospitalImmature Granulocyte # (Auto)0.01 10 3/uL0.00-0.03[facility] Platelet mean volume Auto (Bld) [Entitic vol]Ordered By: Faizan Bragg on 30-58-9055Oyttjvpd mean volume (Bld) [Entitic vol]9.5 fL9.5-13.5FGrand Lake Joint Township District Memorial HospitalPlatelets Auto (Bld) [#/Vol]Ordered By: Faizan Bragg on 81-82-4878Htciytkxi (Bld) [#/Vol]215 10 3/vN660-645GomdznnetMiddletown HospitalRBC Auto (Bld) [#/Vol]Ordered By: Faizan Bragg on 93-32-6459HUN (Bld) [#/Vol]3.62 10 6/uLLow4.70-6.10[facility] Medical Centererum or plasma albumin/globulin mass ratioOrdered By: Faizan Bragg on 12-08-2024 Albumin/Globulin [Mass ratio]0.9 {ratio}[facility] Medical Centererum or plasma anion gap determinationOrdered By: Faizan Bragg on 37-44-8145Xopnr gap [Moles/Vol]9.9 mmol/LFWilson Street Hospitalerum or plasma total cholesterol/high density lipoprotein (HDL) cholesterol mass ratOrdered By: Faizan Bragg on 47-54-3393Aadfcdxgpdw.total/Cholesterol in HDL [Mass ratio]2.0 {ratio}[facility] HospitalComment on above:3.3 - 4.4 LOW RISK4.4 - 7.1 AVERAGE RISK7.1 - 11.0 MODERATE RISK>11.0 HIGH RISKMain OR Intraoperative Recordon 29-01-1656Gbzm OR Intraoperative RecordMain OR Intraoperative Record IntraOp Document Type FTPM Summary Primary Physician: Daniel Hair DO Finalized Date/Time: 12/03/24 12:18:41 Pt. Name: BRET YAP Brian Burton/Sex: 1940 Male Med Rec #: [id number] Physician: Daniel Hair DO Financial #: [id number] Pt. Type: P Room/Bed: / Admit/Disch: 12/03/24 [...] Valentine Jacobs Role Performed Surgeon - Primary Antique Clocks Repairer - Primary Bagging Machine Operator Time In 12/03/24 12:02:00 12/03/24 12:02:00 12/03/24 12:02:00 Time Out 12/03/24 12:19:00 12/03/24 12:19:00 12/03/24 12:19:00 Procedure CERVICAL RADIO CERVICAL RADIO CERVICAL RADIO FREQUENCY FREQUENCY FREQUENCY ABLATION(Right) ABLATION(Right) ABLATION(Right) Comments Last Modified By: Cherry PERKINS, Pameal A Cherry Pamela PERKINS RN, Madison A 12/03/24 12:18:16 12/03/24 12:18:16 [...] Antibiotic No Time Out Pamela Carey RN, Myers RN, Emily C, Jones DO, Bradford A., Valentine Miller Time Out [...] and tissue Entry 1 Skin Integrity Intact, [place], Warm, & Skin Abnormality No Dry Outcomes Met? Yes Last Modified By: Pamela Carey RN 12/03/24 11:59:23 Post-Care Text: The patient is [...] Safety Strap, Pillow La (more content not included)...NormalUnc Health Blue Ridge - Morgantoner [facility] CenterNo Panel Informationon 79-30-8856FNVIAgnesian HealthCarePSA, Diagnosticon 11-53-9099Ydsumsuo specific Ag [Mass/Vol]3.37 ng/mL0.00 - 4.00 ng/mLBon [facility] on above:The Placido ECLIA assay is used. Results obtained with different assay methods cannot be used interchangeably. Bon [facility]itan HospitalProstatic Spec. Ag3.37 ng/mLNormal0.00-4.00[facility] on above:Result Comment: The Placido ECLIA assay is used. Results obtained with different assay methods cannot be used interchangeably.Performed By: #### PSAD #### [employer] [address] [id number] Tooth Clerk: Wilian Calvillo, MDXR CHEST (2 VW)on 83-15-1420PF CHEST (2 VW)EXAM: XR CHEST (2 VW) HISTORY: Chest pain, unspecified type COMPARISON: 04/29/2024. IMPRESSION: FINDINGS/IMPRESSION: 1. Hiatal hernia unchanged. 2. Mild stable cardiomegaly. 3. No mass or pneumonia. 4. Prominent interstitial markings in the lower lobes, stable. Interpreted by: Lopez Hough Jr., MD Signed by: Lopez Hough Jr., MD 06/23/24 Final resultNoAultman HospitalXR Chest 2 Viewson 06-23-2024 FINDINGS/IMPRESSION: 1. Hiatal hernia unchanged. 2. Mild stable cardiomegaly. 3. No mass or pneumonia. 4. Prominent interstitial markings in the lower lobes, stable. PN RIS CONSOLIDATEDEXAM: XR CHEST (2 VW) HISTORY: Chest pain, unspecified type COMPARISON: 04/29/2024. MHPN RIS CONSOLIDATEDTraLopez prabhakar Jr., MD - 06/23/2024 EXAM: XR CHEST (2 VW) HISTORY: Chest pain, unspecified type COMPARISON: 04/29/2024. IMPRESSION: FINDINGS/IMPRESSION: 1. Hiatal hernia unchanged. 2. Mild stable cardiomegaly. 3. No mass or pneumonia. 4. Prominent interstitial markings in the lower lobes, stable. [facility] CenterRadiology Study observation (narrative)[facility] CenterXR Chest 2 ViewsOrdered By: Lopez Hough on 21-57-4703G[facility] Work Phone: Cryotherapy, skin lesionon 26-30-5725IYYT HealthcareXR CHEST (2 VW)on 14-92-9831GL CHEST (2 VW)EXAM: XR CHEST (2 VW) HISTORY: Shortness of [...] by: Lopez Hough Jr., MD 04/29/24 Final resultNoAultman HospitalXR Chest 2 Viewson 04-29-2024 FINDINGS/IMPRESSION: 1. Scarring and chronic parenchymal densities at the right mid and lower lung field are not significant changed. 2. Moderate-sized hiatal hernia better seen on the CT. 3. Mild stable cardiomegaly. 4. No acute change. [facility] RIS CONSOLIDATEDEXAM: XR CHEST (2 VW) HISTORY: Shortness of breath COMPARISON: Chest 08/27/2023. Abdominal CT 07/12/2022, [place]. [facility] Lopez Desai Jr., MD - 04/29/2024 EXAM: XR CHEST (2 VW) HISTORY: Shortness of breath COMPARISON: Chest 08/27/2023. Abdominal CT 07/12/2022, [place]. IMPRESSION: FINDINGS/IMPRESSION: 1. Scarring and chronic parenchymal densities at the right mid and lower lung field are not significant changed. 2. Moderate-sized hiatal hernia better seen on the CT. 3. Mild stable cardiomegaly. 4. No acute change. [facility] CenterRadiology Study observation (narrative)[facility] [employer] [facility] CenterXR Chest 2 ViewsOrdered By: Lopez Hough on 54-88-8590[facility] HospitalThe [employer] Work Phone: cbc with Auto Differentialon 83-03-0104Vpckdlybo (Bld) [#/Vol]0.04 10*3/uLBon [facility]itan HospitalBasophils/100 WBC (Bld)1 %0 - 2 %[facility] CenterEosinophils (Bld) [#/Vol]0.14 10*3/uLBon [facility] Hospital Of AvondaleInstagram [facility]itt[facility] Medical CenterEosinophils/100 WBC (Bld)2 %0 - 5 %[facility] FrugalMechanicErythrocyte distribution width (RBC) [Ratio]14.8 %12.1 - 15.2 %[facility] [employer] Hematocrit (Bld) [Volume fraction]32.0 %Low41.0 - 53.0 %[facility] Hemoglobin (Bld) [Mass/Vol]10.0 g/dLLow13.5 - 17.5 g/dLBon [facility] Immature granulocytes (Bld) [#/Vol]0.01 10*3/uLBon [facility]itan HospitalImmature granulocytes/100 WBC (Bld)0 %0 - 5 %[facility] CenterInterpretation and review of laboratory resultsAbnormalBon [facility]aritan HospitalLymphocytes/100 WBC (Bld)16 %13 - 44 %[facility] CenterLymphocytes/100 WBC (Bld)0.91 %LowBon Genesis HospitalH (RBC) [Entitic mass]28.7 pg26.0 - 34.0 pgBon Genesis HospitalHC (RBC) [Mass/Vol]31.3 g/dL31.0 - 37.0 g/dLBon Genesis HospitalV (RBC) [Entitic vol]92.0 fL80.0 - 100.0 fLStonesprings Hospital Center Monocytes/100 WBC (Bld)15 %High5 - 9 %[facility] CenterMonocytes/100 WBC (Bld)0.85 %[facility] CenterNeutrophils/100 WBC (Bld)66 %39 - 75 %[facility] CenterPlatelet mean volume (Bld) [Entitic vol]9.9 fL6.0 - 12.0 fL [facility] CenterPlatelets (Bld) [#/Vol]203 10*3/uLBon [facility] Samaritan HospitalRBC (Bld) [#/Vol]3.48 10*6/uLLow4.50 - 5.90 m/uLStonesprings Hospital Center Segmented neutrophils/100 WBC (Bld)3.93 %[facility] CenterWBC other (Bld) [#/Vol]5.9Bon SecGundersen Lutheran Medical CenterCBC with Diffon 74-96-1085Vbz. Basophil0.04 k/uLNormal0.00-0.20Paulding County HospitalComment on above:Performed By: #### CDP, CP, MG, TSHX #### [facility] [address] [id number] Tooth Clerk: William Iqbal MD #### LIPR, VD25, FT4 #### [address] [id number] Tooth Clerk: Sumanth Ng.Imm.Granulocyte0.01 k/uLNormal0.00-0.30[facility] on above:Performed By: #### CDP, CP, MG, TSHX #### [facility] [address] [phone] Tooth Clerk: William Iqbal MD #### AMAYA, VD25, FT4 #### [address] [id number] Tooth Clerk: Sumanth Ng.Neutrophil (Seg)3.93 k/uLNormal2.1-6.5Paul[facility] County HospitalComment on above:Performed By: #### CDP, CP, MG, TSHX #### [facility] [address] [place] [address] Tooth Clerk: William Iqbal MD #### AMAYA, VD25, FT4 #### [place] [address] Tooth Clerk: Wilian Calvillo MDBasophils/100 WBC (Bld)1 %Normal0-2MCleveland Clinic Lutheran HospitalComment on above:Performed By: #### CDP, CP, MG, TSHX #### [facility] [address] [phone] Tooth Clerk: William Iqbal MD #### AMAYA, VD25, FT4 #### [place] [address] Tooth Clerk: Wilian Calvillo MDEosinophils (Bld) [#/Vol]0.14 10*3/uLNormal 0.00-0.40[facility] on above:Performed By: #### CDP, CP, MG, TSHX #### [facility] [address] [phone] Tooth Clerk: William Iqbal MD #### LIPR, VD25, FT4 #### [address] [id number] Tooth Clerk: Wilian Calvillo MDEosinophils/100 WBC (Bld)2 %Normal0-5[facility] on above:Performed By: #### CDP, CP, MG, TSHX #### [facility] [address] [phone] Tooth Clerk: William Iqbal MD #### LIPR, VD25, FT4 #### [address] [id number] Tooth Clerk: Wilian Calvillo MDErythrocyte distribution width (RBC) [Ratio]14.8 %Asstdj02.1-15.2MRegency Hospital Cleveland West on above:Performed By: #### CDP, CP, MG, TSHX #### [facility] [address] [phone] Tooth Clerk: William Iqbal MD #### LIPIda, VD25, FT4 #### [address] [id number] Tooth Clerk: Wilian Calvillo MDHematocrit (Bld) [Volume fraction]32.0 %Low 41.0-53.0[facility] on above:Performed By: #### CDP, CP, MG, TSHX #### [facility] [address] [place] [address] Tooth Clerk: William Iqbal MD #### LIPR, VD25, FT4 #### [address] [id number] Tooth Clerk: Wilian Calvillo MDHemoglobin (Bld) [Mass/Vol]10.0 g/dLLow13.5-17.5 [facility] on above:Performed By: #### CDP, CP, MG, TSHX #### [facility] [address] [phone] Tooth Clerk: William Iqbal MD #### LIPR, VD25, FT4 #### [address] [id number] Tooth Clerk: Wilian Calvillo MDImmature granulocytes/100 WBC (Bld)0 %Normal0-5 [facility] on above:Performed By: #### CDP, CP, MG, TSHX #### [facility] [address] [place] [address] Tooth Clerk: William Iqbal MD #### LIPR, VD25, FT4 #### [place] [address] Tooth Clerk: Wilian Calvillo MDLymphocytes (Bld) [#/Vol]0.91 10*3/uLLow 1.00-4.80[facility] on above:Performed By: #### CDP, CP, MG, TSHX #### [facility] [address] [phone] Tooth Clerk: William Iqbal MD #### LIPR, VD25, FT4 #### [address] [id number] Tooth Clerk: Wilian Calvillo MDLymphocytes/100 WBC (Bld)16 %Fcheid68-90EmogkSumma Health Wadsworth - Rittman Medical Center on above:Performed By: #### CDP, CP, MG, TSHX #### [facility] [address] [phone] Tooth Clerk: William Iqbal MD #### LIPR, VD25, FT4 #### [facility] [address] [place] [address] [id number] Tooth Clerk: SANTA NgCH (RBC) [Entitic mass]28.7 bvVkrpdo42.0-34.0 [facility]:Performed By: #### CDP, CP, MG, TSHX #### [facility] [address] [id number] Tooth Clerk: William Iqbal MD #### LIPR, VD25, FT4 #### [address] [id number] Tooth Clerk: CORBY NgC (RBC) [Mass/Vol]31.3 g/gZBpatlf90.0-37.0 [facility]:Performed By: #### CDP, CP, MG, TSHX #### [facility] [address] [id number] Tooth Clerk: William Iqbal MD #### LIPR, VD25, FT4 #### [place] [address] Tooth Clerk: DIGNA Ng (RBC) [Entitic vol]92.0 sMUcmjcs35.0-100.0 [facility]:Performed By: #### CDP, CP, MG, TSHX #### [facility] [address] [id number] Tooth Clerk: William Iqbal MD #### LIPR, VD25, FT4 #### [address] [id number] Tooth Clerk: SANTA Ngonocytes (Bld) [#/Vol]0.85 10*3/uLNormal 0.00-1.00[facility] HospitalComment on above:Performed By: #### CDP, CP, MG, TSHX #### [facility] [address] [place], [place] [id number] Tooth Clerk: William Iqbal MD #### LIPR, VD25, FT4 #### [address] [id number] Tooth Clerk: SANTA Ngonocytes/100 WBC (Bld)15 %High5-9[facility] on above:Performed By: #### CDP, CP, MG, TSHX #### [facility] [address] [place], [place] [id number] Tooth Clerk: William Iqbal MD #### LIPIda, VD25, FT4 #### [address] [id number] Tooth Clerk: Wilian Calvillo MDNeutrophil (Seg)66 %Thetpe71-44YzlcqSumma Health [facility] on above:Performed By: #### CDP, CP, MG, TSHX #### [facility] [facility] [address] [place], [place] [id number] Tooth Clerk: William Iqbal MD #### LIPIda, VD25, FT4 #### [address] [phone] Tooth Clerk: Gino Ngtefrancine mean volume (Bld) [Entitic vol]9.9 fL Normal6.0-12.0[facility] on above:Performed By: #### CDP, CP, MG, TSHX #### [facility] [address] [place], [place] [phone] Tooth Clerk: William Iqbal MD #### LIPR, VD25, FT4 #### [address] [id number] Tooth Clerk: Gino Ngtelets (Bld) [#/Vol]203 10*3/pJXqbchg051-683 [facility] on above:Performed By: #### CDP, CP, MG, TSHX #### [facility] [address] [place] [address] Tooth Clerk: William Iqbal MD #### LIPR, VD25, FT4 #### [address] [phone] Tooth Clerk: Wilian Calvillo [facility] (Bld) [#/Vol]3.48 10*6/uLLow4.50-5.90Paulding County HospitalComment on above:Performed By: #### CDP, CP, MG, TSHX #### [facility] [address] [place] [address] Tooth Clerk: William Iqbal MD #### LIPR, VD25, FT4 #### [place] [address] Tooth Clerk: Wilian Calvillo MDSTONY [facility] (d) [#/Vol]5.9 10*3/uLNormal3.5-11.0[facility] on above:Performed By: #### CDP, CP, MG, TSHX #### [facility] [address] [place] [address] Tooth Clerk: William Iqbal MD #### LIPR, VD25, FT4 #### [place] [address] Tooth Clerk: Wilian Calvillo [facility] Metabolic Profon [id number] [Mass/Vol]3.7 g/dLNormal3.5-5.2MC[facility] Luther[facility] HospitalComwal[facility] p[facility] on above:Performed By: #### CDP, CP, MG, TSHX #### [facility] [address] [place] [phone] Tooth Clerk: William Iqbal MD #### LIPR, VD25, FT4 #### [facility] [address] [place] [address] [phone] Tooth Clerk: Amaury Ng Tqeh852 U/TCyow90-666ZvvbaSumma Health W[facility] - [facility] on above:Performed By: #### CDP, CP, MG, TSHX #### [facility] [address] [place], [place] [phone] Tooth Clerk: William Iqbal MD #### LIPR, VD25, FT4 #### [facility] [address] [place] [address] [phone] Tooth Clerk: Wilian Calvillo MDALT [Catalytic activity/Vol]15 U/LNormal5-41 [facility] on above:Performed By: #### CDP, CP, MG, TSHX #### [facility] [address] [place] [address] Tooth Clerk: William Iqbal MD #### LIPR, VD25, FT4 #### [address] [phone] Tooth Clerk: José Luis Ng gap [Moles/Vol]4 mmol/LLow9-17[facility] on above:Performed By: #### CDP, CP, MG, TSHX #### [facility] [address] [place] [phone] Tooth Clerk: William Iqbal MD #### LIPR, VD25, FT4 #### [address] [phone] Tooth Clerk: Wilian Calvillo MDAST [Catalytic activity/Vol]21 U/LNormal<40[facility] on above:Performed By: #### CDP, CP, MG, TSHX #### [facility] [address] [place] [address] Tooth Clerk: William Iqbal MD #### LIPR, VD25, FT4 #### [place] [id number] Tooth Clerk: Wilian Calvillo MDBilirubin [Mass/Vol]0.5 mg/dLNormal0.3-1.2MCleveland Clinic Lutheran HospitalComment on above:Performed By: #### CDP, CP, MG, TSHX #### [facility] [address] [place] [address] Tooth Clerk: William Iqbal MD #### LIPR, VD25, FT4 #### [place] [id number] Tooth Clerk: Wilian Calvillo MDBUN/CRE Huzor86Xbjgfy2-49Szgdo [facility] Comment on above:Performed By: #### CDP, CP, MG, TSHX #### [facility] [address] [place] [address] Tooth Clerk: William Iqbal MD #### LIPR, VD25, FT4 #### [place] [id number] Tooth Clerk: KIMANI Ngalcium [Mass/Vol]8.7 mg/dLNormal8.6-10.4Paulding County HospitalComment on above:Performed By: #### CDP, CP, MG, TSHX #### [facility] [address] [place] [address] Tooth Clerk: William Iqbal MD #### LIPR, VD25, FT4 #### [place] [id number] Tooth Clerk: KIMANI Nghloride [Moles/Vol]104 mmol/ABgetaq43-661EtotlPaulding County HospitalComment on above:Performed By: #### CDP, CP, MG, TSHX #### [facility] [address] [place] [address] Tooth Clerk: William Iqbal MD #### LIPIda, VD25, FT4 #### [address] [phone] Tooth Clerk: KIMANI NgO2 [Moles/Vol]30 mmol/TGqpubj31-44PpjopPaulding County HospitalComment on above:Performed By: #### CDP, CP, MG, TSHX #### [facility] [address] [place], [place] [phone] Tooth Clerk: William Iqbal MD #### AMAYA VD25, FT4 #### [address] [phone] Tooth Clerk: KIMANI Ngreatinine [Mass/Vol]1.1 mg/dLNormal0.7-1.2MCleveland Clinic Lutheran HospitalComment on above:Performed By: #### CDP, CP, MG, TSHX #### [facility] [address] [place] [address] Tooth Clerk: William Iqbal MD #### AMAYA VD25, FT4 #### [address] [phone] Tooth Clerk: Wilian Calvillo MDGFR/1.73 sq M.predicted among non-blacks MDRD (S/P/Bld) [Vol rate/Area]67 mL/min/{1.73_m2}Normal>60[facility] Comment on above:Result Comment: These results are not intended for [...] or following therapy that affects renal tubular secretion.Performed By: #### CDP, CP, MG, TSHX #### [facility] [address] [place], [place] 1074590 Tooth Clerk: William Iqbal MD #### LIPIda, VD25, FT4 #### [address] [phone] Tooth Clerk: Wilian Calvillo MDGlucose [Mass/Vol]84 mg/yLFzaaem17-20QwqitCleveland Clinic Lutheran HospitalComment on above:Performed By: #### CDP, CP, MG, TSHX #### [facility] [address] [place] [phone] Tooth Clerk: William Iqbal MD #### AMAYA VD25, FT4 #### [place] [id number] Tooth Clerk: Wilian Calvillo MDPotassium [Moles/Vol]4.1 mmol/LNormal3.7-5.3 [facility] County HospitalComment on above:Performed By: #### CDP, CP, MG, TSHX #### [facility] [address] [place] [phone] Tooth Clerk: William Iqbal MD #### AMAYA VD25, FT4 #### [address] [phone] Tooth Clerk: Wilian Calvillo MDProtein [Mass/Vol]6.9 g/dLNormal6.4-8.3MCleveland Clinic Lutheran HospitalComment on above:Performed By: #### CDP, CP, MG, TSHX #### [facility] [address] [place] [address] Tooth Clerk: William Iqbal MD #### AMAYA, VD25, FT4 #### [address] [phone] Tooth Clerk: Wilian Calvillo MDSodium [Moles/Vol]138 mmol/RIeyidl799-962NtjyxPaulding County HospitalComment on above:Performed By: #### CDP, CP, MG, TSHX #### [facility] [address] [place] [address] Tooth Clerk: William Iqbal MD #### LIPR, VD25, FT4 #### [facility] [address] [place], [place] [phone] Tooth Clerk: Wilian Calvillo MDUrea nitrogen [Mass/Vol]22 mg/dLNormal8-23Paulding County HospitalComment on above:Performed By: #### CDP, CP, MG, TSHX #### [facility] [address] [place] [address] Tooth Clerk: William Iqbal MD #### LIPR, VD25, FT4 #### [facility] [address] [place] [address] Tooth Clerk: KIMANI Ngomprehensive Metabolic Panelon 04-26-2024 Albumin [Mass/Vol]3.7 g/dL3.5 - 5.2 g/dLBon [facility] HealthALP [Catalytic activity/Vol]155 U/LHigh40 - 129 U/LBon SecSt. Bernard Parish Hospital HealthALT [Catalytic activity/Vol]15 U/L5 - 41 U/LBon Sec[facility] HealthAnion gap [Moles/Vol]4 mmol/LLow9 - 17 mmol/LBon SecSt. Bernard Parish Hospital HealthAST [Catalytic activity/Vol]21 U/L NINF - 40 U/LBon [facility]ours [facility] HealthBilirubin [Mass/Vol]0.5 mg/dL0.3 - 1.2 mg/dLBon [facility] HealthCalcium [Mass/Vol]8.7 mg/dL8.6 - 10.4 mg/dLBon [facility] HealthChloride [Moles/Vol]104 mmol/L98 - 107 mmol/LBon [facility] HealthCO2 [Moles/Vol]30 mmol/L20 - 31 mmol/LBon [facility] Health Creatinine [Mass/Vol]1.1 mg/dL0.7 - 1.2 mg/dLBon [facility] Hospital Of AvondaleGinxEstJem Rate67- PINFBon Cle[facility] Hospital Of AvondaleGinxComment on above: These results are not intended [...] therapy that affects renal tubular secretion. Glucose [Mass/Vol]84 mg/dL70 - 99 mg/dLBon Lekiosque.frInterpretation and review of laboratory resultsAbnormalSentara Obici HospitalGinxPotassium [Moles/Vol]4.1 mmol/L3.7 - 5.3 mmol/LBon [facility] Of AvondaleGinxProtein [Mass/Vol] 6.9 g/dL6.4 - 8.3 g/dLBon [facility] Of AvondaleGinxSodium [Moles/Vol]138 mmol/L135 - 144 mmol/LBon [facility] Of AvondaleGinxUrea nitrogen [Mass/Vol]22 mg/dL8 - 23 mg/dL [facility] Ob[facility] HospitalGinxUrea nitrogen/Creatinine [Mass ratio]20 mg/mg9 - 20Bon Lekiosque.frLipid Panelon [id number] [Mass/Vol]113 mg/dL0 - 199 mg/dLBon Lekiosque.frComment on above: Cholesterol Guidelines: <200 Desirable 200-240 Borderline >240 Undesirable Cholesterol in HDL [Mass/Vol]48 mg/dL40 - PINF mg/dLBon Lekiosque.fr Comment on above: HDL Guidelines: <40 Undesirable 40-59 Borderline >59 Desirable Cholesterol in LDL [Mass/Vol]54 mg/dL0 - 100 mg/dLBon [facility].fr Comment on above: LDL Guidelines: <100 Desirable 100-129 Near to/above Desirable 130-159 Borderline >159 Undesirable Direct (measured) LDL and calculated LDL are not interchangeable tests. Cholesterol in VLDL [Mass/Vol]11 mg/dL1 - 30 mg/dLBon Lekiosque.fr Cholesterol.total/Cholesterol in HDL [Mass ratio]2.4 {ratio}[facility] Lekiosque.frTriglyceride [Mass/Vol]53 mg/dLNINF - 150 mg/dLBon [facility] Comment on above: Triglyceride Guidelines: <150 Desirable 150-199 Borderline 200-499 High >499 Very high Based on AHA Guidelines for fasting triglyceride, December 2011. [facility] Samaritan HospitalLipid Profileon [id number] [Mass/Vol]113 mg/dLNormal0-199[facility] on above:Result Comment: Cholesterol Guidelines: <200 Desirable 200-240 Borderline >240 UndesirablePerformed By: #### CDP, CP, MG, TSHX #### [facility] [address] [place], [place] [phone] Tooth Clerk: William Iqbal MD #### LIPR, VD25, FT4 #### [facility] [address] [place] [address] [phone] Tooth Clerk: KIMANI Ngholesterol in HDL [Mass/Vol]48 mg/dLNormal>40 [facility] on above:Result Comment: HDL Guidelines: <40 Undesirable 40-59 Borderline >59 DesirablePerformed By: #### CDP, CP, MG, TSHX #### [facility] [address] [place], [place] [phone] Tooth Clerk: William Iqbal MD #### LIPR, VD25, FT4 #### [facility] [address] [place] [address] Tooth Clerk: KIMANI Ngholesterol in LDL [Mass/Vol]54 mg/dLNormal0-100 [facility] on above:Result Comment: LDL Guidelines: <100 Desirable 100-129 Near to/above Desirable 130-159 Borderline >159 Undesirable Direct (measured) LDL and calculated LDL are not interchangeable tests.Performed By: #### CDP, CP, MG, TSHX #### [facility] [address] [place], [place] [phone] Tooth Clerk: William Iqbal MD #### LIPR, VD25, FT4 #### [employer] [address] [place] [address] Tooth Clerk: KIMANI Ngholesterol in VLDL [Mass/Vol]11 mg/dLNormal1-30 [facility] on above:Performed By: #### CDP, CP, MG, TSHX #### [facility] [address] [place], [place] [phone] Tooth Clerk: William Iqbal MD #### LIPR, VD25, FT4 #### [facility] [address] [place] [address] [phone] Tooth Clerk: KIMANI Ngholesterol.total/Cholesterol in HDL [Mass ratio]2.4 {ratio}NormalSumma Health [facility] on above:Performed By: #### CDP, CP, MG, TSHX #### [facility] [address] [place], [place] [phone] Tooth Clerk: William Iqbal MD #### AMAYA, VD25, FT4 #### [facility] [address] [place] [address] [phone] Tooth Clerk: Wilian Calvillo MDTriglyceride [Mass/Vol]53 mg/dLNormal<150[facility] on above:Result Comment: Triglyceride Guidelines: <150 Desirable 150-199 Borderline 200-499 High >499 Very high Based on AHA Guidelines for fasting triglyceride, December 2011.Performed By: #### CDP, CP, MG, TSHX #### [facility] [address] [place] [phone] Tooth Clerk: William Iqbal MD #### LIPR, VD25, FT4 #### [facility] [address] [place] [address] Tooth Clerk: Wilian Calvillo MDMagnesiumon [id number] [Mass/Vol]2.1 mg/dL1.6 - 2.6 mg/dLBon SecBlanchard Valley Health System Bluffton HospitalMagnesium [Mass/Vol]2.1 mg/dLNormal 1.6-2.6MCleveland Clinic Lutheran HospitalComment on above:Performed By: #### CDP, CP, MG, TSHX #### [facility] [address] [place] [address] Tooth Clerk: William Iqbal MD #### LIPR, VD25, FT4 #### [facility] [address] [place] [address] Tooth Clerk: Wilian Calvillo MDNo Panel Informationon [id number] Good Samaritan HospitalT4, Freeon [id number] T4 [Mass/Vol]1.2 ng/dL0.9 - 1.7 ng/dLBon [facility] w/reflex to FT4on 04-26-2024 Thyroid Stim. Horm.6.05 uIU/mLHigh0.30-5.00Paulding County HospitalComment on above:Performed By: #### CDP, CP, MG, TSHX #### [facility] [address] [place] [phone] Tooth Clerk: William Iqbal MD #### AMAYA, VD25, FT4 #### [facility] [address] [place] [address] Tooth Clerk: Wilian Calvillo MDMADIGAN ARMY MEDICAL CENTER with Reflexon [id number] and review of laboratory resultsAbnormalRetreat Doctors' Hospital Qn6.05 m[IU]/L HighBon [facility]deen Medical CenterThyroxine, Freeon 04-26-2024 Thyroxine, Free1.2 ng/dLNormal0.9-1.7Paul[facility] County HospitalComwalter p. reuther psychiatric hospital on above: Performed By: #### CDP, CP, MG, TSHX #### [facility] [address] [place] [address] Tooth Clerk: William Iqbal MD #### LIPR, VD25, FT4 #### [facility] [address] [place], [place] [phone] Tooth Clerk: Wilian Calvillo MDVitamin D 25 Hydroxyon [id number]- hydroxyvitamin D3 [Mass/Vol]31.9 ng/mL30.0 - 100.0 ng/mLBon [facility] Comment on above: Reference Range: Vitamin D status Range Deficiency <20 ng/mL Mild Deficiency 20-30 ng/mL Sufficiency 30-100 ng/mL Toxicity >100 ng/mL Bon [facility] Samaritan HospitalVitamin D 25 OHon [id number] D 25 OH31.9 ng/mL Denxpr41.0-100.0Paulding County HospitalComment on above:Result Comment: Reference Range: Vitamin D status Range Deficiency <20 ng/mL Mild Deficiency 20-30 ng/mL Sufficiency 30-100 ng/mL Toxicity >100 ng/mLPerformed By: #### CDP, CP, MG, TSHX #### [facility] [address] [place] [address] Tooth Clerk: William Iqbal MD #### LIPR, VD25, FT4 #### [facility] [address] [place], [place] [phone] Tooth Clerk: Wilian Calvillo MDNo Panel Informationon [id number] of biopsy: tangential Informed consent: discussed and [...] Photo taken Amount of lidocaine used: 1.0 [facility] Main OR Intraoperative Recordon [id number] OR Intraoperative RecordMain OR Intraoperative Record IntraOp Document Type FTPM Summary Primary Physician: Daniel Hair DO Finalized Date/Time: 02/24/24 13:32:12 Pt. Name: BRET YAP Brian Burton/Sex: 1940 Male Med Rec #: [id number] Physician: Daniel Hair DO Financial #: [id number] Pt. Type: P Room/Bed: / Admit/Disch: 02/24/24 12:18:10 - Institution: Case Times FTPM Entry 1 Patient Times In Room 02/24/24 13:22:00 Out Room 02/24/24 13:30:00 Procedure Times Start 02/24/24 13:25:00 Stop 02/24/24 13:29:00 Anesthesia Times Last Modified By: Carol Whalen RN 02/24/24 13:30:57 Case Attendance FTPM Entry 1 Entry 2 Entry 3 Case Attendee Daniel Hair DO, RN, Carol Carey RN, Pamela Rosenthal Role Performed Surgeon - Primary Antique Clocks Repairer - Primary Scrub - Primary Time In 02/24/24 13:22:00 02/24/24 13:22:00 02/24/24 13:22:00 Time Out 02/24/24 13:30:00 02/24/24 13:30:00 02/24/24 13:30:00 Procedure MEDIAL BRANCH MEDIAL BRANCH MEDIAL BRANCH BLOCK(Right) BLOCK(Right) BLOCK(Right) Comments Last Modified By: Koby PERKINS, Carol Whalen RN, Carol Rosario RN 02/24/24 13:30:58 M 02/24/24 13:30:58 M 02/24/24 13:30:58 Entry 4 Case Attendee Blanche Centeno (R) Role Performed Bagging Machine Operator Time In 02/24/24 13:22:00 Time Out 02/24/24 [...] Antibiotic No Time Out Carol Whalen RN, Cherry PERKINS, Reginaldo Henning DO, Bradford A., Mitra RT(R), Blanche Time Out Complete 02/24/24 13:22:00 Outcomes Met? [...] and tissue Entry 1 Skin Integrity Intact, [place], Warm, & Skin Abnormality No Dry Outcomes [...] Checked Yes By Angus (more content not included)...[facility] Preoperative Recordon [id number] OR Preoperative RecordMain OR Preoperative Record Holding Area Document Type FTPM Summary Primary Physician: Daniel Hair DO Finalized Date/Time: 02/24/24 14:18:29 Pt. Name: BRET YAP/Sex: 1940 Male Med Rec #: [id number] Physician: Daniel Hair DO Financial #: [id number] Pt. Type: P Room/Bed: / Admit/Disch: 02/24/24 [...] or her perioperative plan of care The patient'sright to privacy is maintained Surgery Checklist FTPM [...] RN 02/24/24 12:31 Marilou Esparza RN 02/24/[address] [facility] 01-23-2024H AND Demetra Bragg MD [address] [place] [phone] RE: BRET YAP Brian : [address] Bragg: CHIEF COMPLAINT: [...] lumbar fusion surgery by Dr. Michelle in [place]. 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 Grandson is also into the [employer] business. Mr. Yap also has a son who works at [employer] who is not interested in farming. Another grandson works at [employer]. He does not smoke or drink alcohol. [...] No calf tenderness. Nail (more content not included)...Normal [facility] HEART CATHon [id number] HEART CATHThis is a summary report. The complete report [...] have been documented. Left Ventricle Ejection Fraction: 50%%.[facility]Main OR Intraoperative Recordon [address]Ieiu OR Intraoperative RecordMain OR Intraoperative Record IntraOp Document Type FTPM Summary Primary Physician: Daniel Hair DO Finalized Date/Time: 01/20/24 10:19:15 Pt. Name: BRET YAP Brian Garzon./Sex: 1940 Male Med Rec #: [id number] Physician: Daniel Hair DO Financial #: [id number] Pt. Type: P Room/Bed: / Admit/Disch: 01/20/24 09:02:09 - Institution: Case Times FTPM Entry 1 Patient Times In Room 01/20/24 10:10:00 Out Room 01/20/24 10:19:00 Procedure Times Start 01/20/24 10:13:00 Stop 01/20/24 10:18:00 Anesthesia Times Last Modified By: Pamela Carey RN 01/20/24 10:19:13 Case Attendance FTPM Entry 1 Entry 2 Entry 3 Case Attendee Daniel Hair DO, RN, Pamela Amato RN, Ninfa Freitas Role Performed Surgeon - Primary Antique Clocks Repairer - Primary Scrub - Primary Time In 01/20/24 10:10:00 01/20/24 10:10:00 01/20/24 10:10:00 Time Out 01/20/24 10:18:00 01/20/24 10:18:00 01/20/24 10:18:00 Procedure MEDIAL BRANCH MEDIAL BRANCH MEDIAL BRANCH BLOCK(Right) BLOCK(Right) BLOCK(Right) Comments Last Modified By: Cherry PERKINS, Pamela Carey RN, Pamela Torres RN 01/20/24 10:18:36 01/20/24 10:18:36 01/20/24 10:18:36 Entry 4 Case Attendee Gina Schreiber Role Performed Bagging Machine Operator Time In 01/20/24 10:10:00 Time Out 01/20/24 [...] Roderick RN, Reginaldo Holguin DO, Bradford A., Gina Schreiber Time Out Complete 01/20/24 10:11:00 Outcomes Met? [...] and tissue Entry 1 Skin Integrity Intact, [place], Warm, & Skin Abnormality No Dry Outcomes [...] Met? Yes Last Mod (more content not included)...[facility] OR Preoperative Recordon [id number] OR Preoperative RecordMain OR Preoperative Record Holding Area Document Type FTPM Summary Primary Physician: Daniel Hair DO Finalized Date/Time: 01/20/24 09:39:44 Pt. Name: BRET YAP/Sex: 1940 Male Med Rec #: [id number] Physician: Daniel Hair DO Financial #: [id number] Pt. Type: P Room/Bed: / Admit/Disch: 01/20/24 [...] or her perioperative plan of care The patient'sright to privacy is maintained Surgery Checklist FTPM [...] Signatures Signed By: Jossie Ma RN 01/20/24 09:39NoSelect Medical Specialty Hospital - TrumbullNo Panel InformationOrdered By: Darrell Jason on [id number] Stress EF64 %BON Bountii Phone: Stress Target [id number] Bountii Phone: TID1.04BON Bountii Phone: BON Bountii Phone: No Panel Informationon [id number] Combined Conclusion: The study cannot rule out [...] Findings suggest a low risk of cardiac events.[facility] STRESSRadiology Study observation (narrative)[facility] SECADVI[facility] TRIHEALTHCBC with Auto Differentialon [id number] (Bld) [#/Vol]0.06 10*3/uLBON [facility] HEALTH Basophils/100 WBC (Bld)1 %0 - 2 %[facility] HEALTHEosinophils (Bld) [#/Vol]0.14 10*3/uLBON SECOURS MERCY HEALTHEosinophils/100 WBC (Bld)3 %0 - 5 % [facility] HEALTHErythrocyte distribution width (RBC) [Ratio]13.0 %12.1 - 15.2 %[facility] HEALTHHematocrit (Bld) [Volume fraction]36.5 %Low41.0 - 53.0 %[facility] HEALTHHemoglobin (Bld) [Mass/Vol]11.4 g/dLLow13.5 - 17.5 g/dLBON SECOURS MERCY TRIHEALTHImmature granulocytes (Bld) [#/Vol]0.01 10*3/uLBON SECOURS MERCY HEALTHImmature granulocytes/100 WBC (Bld)0 %0 - 5 %[facility] HEALTHInterpretation and review of laboratory resultsAbnormalBON SECOU[facility] MERCY HEALTHLymphocytes/100 WBC (Bld)20 %13 - 44 %[facility]ALTH Lymphocytes/100 WBC (Bld)1.13 %[facility]OSPITALH (RBC) [Entitic mass] 29.1 pg26.0 - 34.0 pgBON SECOURS MARY RUTAN HOSPITALY CHERRINGTON HOSPITALHC (RBC) [Mass/Vol]31.2 g/dL31.0 - 37.0 g/dLBON SECUNIVERSAL HEALTH SERVICESY HEALTHMCV (RBC) [Entitic vol]93.1 fL80.0 - 100.0 fL [facility]ITALY HEALTHMonocytes/100 WBC (Bld)13 %High5 - 9 %[facility]ITALY HEALTHMonocytes/100 WBC (Bld)0.72 %[facility] HEALTHNeutrophils/100 WBC (Bld)63 %39 - 75 %[facility]OSPITALY HEALTHPlatelet mean volume (Bld) [Entitic vol]9.6 fL6.0 - 12.0 fLBON SECOURS MARY RUTAN HOSPITALY HEALTHPlatelets (Bld) [#/Vol]206 10*3/uLBON SECOURS MARY RUTAN HOSPITALY HEALTHRBC (Bld) [#/Vol]3.92 10*6/uLLow4.50 - 5.90 m/uL [facility] HEALTHSegmented neutrophils/100 WBC (Bld)3.57 %[facility] HEALTHWBC other (Bld) [#/Vol]5.6B[facility] HEALTHB[facility] HEALTHComprehensive Metabolic Panelon [id number] [Mass/Vol]3.8 g/dL3.5 - 5.2 g/dLBON SECOURS MARY RUTAN HOSPITALY HEALTHALP [Catalytic activity/Vol]130 U/LHigh40 - 129 U/LBON [facility] M[facility]UT[facility] HOSPITALY HEALTHALT [Catalytic activity/Vol]14 U/L5 - 41 U/LBON [facility] M[facility]OSPITALY HEALTHAnion gap [Moles/Vol]7 mmol/LLow9 - 17 mmol/LBON SEC[facility]RS M[facility] RUT[facility] HOSPITALY HEALTHAST [Catalytic activity/Vol]20 U/LNINF - 40 U/LBON [facility]ITALY HEALTHBilirubin [Mass/Vol]0.5 mg/dL0.3 - 1.2 mg/dLBON SECOURS M[facility]UT[facility]OS[facility]ITALY HEALTH Calcium [Mass/Vol]9.3 mg/dL8.6 - 10.4 mg/dLBON SECOURS MERCY HEALTHChloride [Moles/Vol]106 mmol/L98 - 107 mmol/LBON SECOURS MARY RUTAN HOSPITALY HEALTHCO2 [Moles/Vol]27 mmol/L20 - 31 mmol/LBON SECOURS MARY RUT[facility] HOSPITALY HEALTHCreatinine [Mass/Vol]1.2 mg/dL0.7 - 1.2 mg/dLBON HDmessagingEst, Glom Filt Xctj59Pzg- PINFBON [facility]ATION [facility] PHOENIXYlopoComment on above: These results are not intended [...] therapy that affects renal tubular secretion. Glucose [Mass/Vol]92 mg/dL70 - 99 mg/dLBON HDmessagingInterpretation and review of laboratory resultsAbnormalBON [facility] PHOENIXYlopoPotassium [Moles/Vol]4.3 mmol/L3.7 - 5.3 mmol/LBON [facility] PHOENIXYlopoProtein [Mass/Vol] 7.4 g/dL6.4 - 8.3 g/dLBON [facility] PHOENIXYlopoSodium [Moles/Vol]140 mmol/L135 - 144 mmol/LBON [facility]ALTH [facility]ATION [facility] PHOENIXYlopoUrea nitrogen [Mass/Vol]22 mg/dL8 - 23 mg/dL [facility] HOSPITALYlopoUrea nitrogen/Creatinine [Mass ratio]18 mg/mg9 - 20BON HDmessagingLipid Panelon [id number] [Mass/Vol]155 mg/dL0 - 199 mg/dLBON HDmessagingComment on above: Cholesterol Guidelines: <200 Desirable 200-240 Borderline >240 Undesirable Cholesterol in HDL [Mass/Vol]50 mg/dL40 - PINF mg/dLBON HDmessaging Comment on above: HDL Guidelines: <40 Undesirable 40-59 Borderline >59 Desirable Cholesterol in LDL [Mass/Vol]92 mg/dL0 - 100 mg/dLBON HDmessaging Comment on above: LDL Guidelines: <100 Desirable 100-129 Near to/above Desirable 130-159 Borderline >159 Undesirable Direct (measured) LDL and calculated LDL are not interchangeable tests. Cholesterol in VLDL [Mass/Vol]13 mg/dLBON HDmessaging Cholesterol.total/Cholesterol in HDL [Mass ratio]3.0 {ratio}BON HDmessagingTriglyceride [Mass/Vol]66 mg/dLNINF - 150 mg/dLBON HDmessaging Comment on above: Triglyceride Guidelines: <150 Desirable 150-199 Borderline 200-499 High >499 Very high Based on AHA Guidelines for fasting triglyceride, December 2011. [facility] [employer] HEALTHMagnesiumon 97-00-1708Kxkeoshsw [Mass/Vol]2.2 mg/dL1.6 - 2.6 mg/dLBON [facility] PHOENIXADVIZE HEALTHNo Panel Informationon [id number] [facility] PHOENIXYlopoT4, Freeon 68-61-9701Gahz T4 [Mass/Vol]1.3 ng/dL0.92 - 1.68 ng/dLBON [facility] PHOENIXYlopoSYMMES HOSPITALADVIZE TRIHEALTHTSH with Reflexon 12-22-2023 Interpretation and review of laboratory resultsAbnormalBON [facility] PHOENIXYlopo TSH Qn5.85 m[IU]/LHighBON [facility] PHOENIXYlopoSYMMES HOSPITALYlopoVitamin D 25 Hydroxyon [id number]-qkmsfsrjffhvlg D3 [Mass/Vol]36.2 ng/mL30.0 - 100.0 ng/mLTUCSON HEART H[facility]PITAL HDmessagingComment on above: Reference Range: Vitamin D status Range Deficiency <20 ng/mL Mild Deficiency 20-30 ng/mL Sufficiency 30-100 ng/mL Toxicity >100 ng/mL Hatsize HEALTHCardiac echo study Procedureon [id number] Root3.2 cmBON SECOURS ethorityY HEALTHAscending Aorta2.8 cmBON SECOURS ethorityY HEALTHAV Area by Peak Velocity3.1 cm2BON [facility] ethorityY HEALTHAV Peak Yhhpxkfp0fiOpLYU SECOURS ethorityY HEALTHAV Peak Velocity1.1 m/sBON SECOURS ethorityY HEALTHAV Velocity Ratio0.73 [facility]ALTHE/E' Lateral6.17[facility]ALTHE/E' Ratio (Averaged)6.45[facility]ALTHE/E' Septal6.73[facility] ethorityY HEALTHEF Pkjmjrhok73 %[facility] ethorityY HEALTHEst. RA Ucduagdt5ipKfZGN SECOURS ethorityY HEALTHFractional Shortening 2D28 %28 - 44 %[facility] ethorityY HEALTHIVSd0.9 cm0.6 - 1.0 cmBON SECOURS MERCY HEALTHLA Diameter4.9 cmBON SECOURS MERCY HEALTHLA/AO Root Ratio1.53[facility] HEALTHLV E' Lateral Uqqdpihl84 cm/sBON SECOURS MERCY HEALTHLV E' Septal Ktgikfmi46 cm/sBON SECOURS MERCY HEALTHLV Mass 2D142.7 g88 - 224 gBON SECOURS MERCY HEALTHLV RWT Ratio0.38[facility] HEALTHLVIDd 4.7 cm4.2 - 5.9 cmBON SECOURS MERCY HEALTHLVIDs3.4 cmB[facility]RS [facility] HEALTH LVOT Area4.5 cm2BON [facility] HEALTHLVOT Diameter2.4 cmBON SECOURS MERCY HEALTHLVOT Mean Dpwpufwj3dnNcTMD SECOURS MERCY HEALTHLVOT Peak Daontccy4xbIlWIP [facility] HEALTHLVOT Peak Velocity0.8 m/sBON SECOURS MERCY HEALTHLVOT SV85.0 mlBON SECOURS MERCY HEALTHLVOT VTI18.8 cmBON SECMARIKA MERCY HEALTHLVPWd0.9 cm0.6 - 1.0 cmBON SECOURS MERCY HEALTHMV A Velocity0.01 m/sBON [facility]RS MERCY HEALTHMV E Velocity0.74 m/sBON [facility]RS MERCY HEALTHMV E Wave Deceleration Lxcy159.6 ms [facility] HEALTHMV E/A74.00[facility] HEALTHPV Max Velocity1.0 m/sBON [facility]RS MERCY HEALTHPV Peak Dliimorl3jtHfRQU SECOURS [facility]CY HEALTHRVIDd4.2 cmBON SECOURS MERCY OYWCAJEALT71awQmOPR SECOURS MERCY HEALTHTR Max Velocity3.06 m/sBON SECOURS MERCY HEALTHTR Peak Uafkonsl56rlRyLOC [facility] HEALTHLeft Ventricle: Normal left ventricular systolic function. EF [...] performed and pulse wave and/or continuous wave Dopplerwas performed. No contrast was given.[facility] CV CPACSBON POMERENE HOSPITALCardiac echo study Procedureon [id number] Study observation (narrative)[facility]ICAL CENTEREstimated glomerular filtration rate (GFR) non- Americanon 07-37-1947XPS/1.73 sq M.predicted among non- blacks MDRD (S/P/Bld) [Vol rate/Area]55 mL/min/{1.73_m2}Low>=60[facility] HospitalLaboratory - Chemistry and Chemistry - challengeon 34-86-4115Ksewciq [Mass/Vol]8.9 mg/dL8.5-10.1FGrand Lake Joint Township District Memorial Hospital Chloride [Moles/Vol]104 mmol/N13-691LfrbcxxhuMiddletown HospitalCO2 [Moles/Vol]28.5 mmol/L21.0-32.0[facility] HospitalCreatinine [Mass/Vol]1.26 mg/dL0.70-1.30M[facility] HospitalGFR/1.73 sq M.predicted MDRD (S/P/Bld) [Vol rate/Area]mL/min/{1.73_m2}>=60M[facility] HospitalGlucose [Mass/Vol]99 mg/vR10-436VgppwjhvtMiddletown Hospital Potassium [Moles/Vol]4.4 mmol/L3.5-5.1FWilson [address] Hospitalodium [Moles/Vol]139 mmol/T216-001EkiueqstqMiddletown HospitalUrea nitrogen [Mass/Vol]27.0 mg/dLHigh7.0-18.0M[place] HospitalUrea nitrogen/Creatinine [Mass ratio]21.4 mg/mgMiddletown HospitalNo Panel Informationon [id number] Specific Antigen Screen4.94 ng/mLHigh <=4.00[facility] Medical Centererum or plasma anion gap determinationon 17-56-1364Ahpnh gap [Moles/Vol]10.9 mmol/LFGrand Lake Joint Township District Memorial HospitalCBC with Auto Differentialon 31-18-6960Qxtenuxay (Bld) [#/Vol]0.10 10*3/uLBON SECOURS [facility]SW[facility] HOSPITALBasophils/100 WBC (Bld)1 %0 - 2 %[facility] HEALTH Differential TypeYESBON SECOURS WADSWORTH-RITTMAN HOSPITALEosinophils (Bld) [#/Vol]0.20 10*3/uLBON SECOURS WADSWORTH-RITTMAN HOSPITALEosinophils/100 WBC (Bld)4 %0 - 5 %BON SEC[facility]UTAN HOSPITALY HEALTHErythrocyte distribution width (RBC) [Ratio]14.8 %12.1 - 15.2 %BON SECGLENBEIGH HOSPITALHematocrit (Bld) [Volume fraction]36.2 %Low41 - 53 %BON SEC[facility]RS M[facility]AN HOSPITALY TRIHEALTHHemoglobin (Bld) [Mass/Vol]12.1 g/dLLow13.5 - 17.5 g/dLBON [facility]AC[facility] HEALTHInterpretation and review of laboratory resultsAbnormalBON SECOURS M[facility] HOSPITALY HEALTHLymphocytes/100 WBC (Bld)21 %13 - 44 %B[facility]SW[facility]-RITTMAN HOSPITALLymphocytes/100 WBC (Bld)1.20 %BON SECFLOWER HOSPITALH (RBC) [Entitic mass]31.1 pg26 - [address] ANTHONY[facility] HOSPITALHC (RBC) [Mass/Vol]33.4 g/dL31 - 37 g/dLBON SECFLOWER HOSPITALV (RBC) [Entitic vol]93.1 fL80 - 100 fLBON SECOURS MERCY HEALTHMonocytes/100 WBC (Bld)13 %High5 - 9 %B[facility]OSPITALY HEALTHMonocytes/100 WBC (Bld)0.70 %[facility]-RITTM[facility] HOSPITALNeutrophils/100 WBC (Bld)61 %39 - 75 %[facility] HEALTHPlatelets (Bld) [#/Vol]207 10*3/uLBON POMERENE HOSPITALRBC (Bld) [#/Vol]3.89 10*6/uLLow4.5 - 5.9 m/uLBON POMERENE HOSPITALSegmented neutrophils/100 WBC (Bld)3.40 %BON POMERENE HOSPITALWBC other (Bld) [#/Vol]5.6BON SECGLENBEIGH HOSPITALBON [facility] Comprehensive Metabolic Panelon 10-35-2409Tunhdur [Mass/Vol]3.6 g/dL3.5 - 5.2 g/dLBON POMERENE HOSPITALALP [Catalytic activity/Vol]112 U/L40 - 129 U/LBON [facility] HEALTHALT [Catalytic activity/Vol]10 U/L5 - 41 U/LBON POMERENE HOSPITALAnion gap [Moles/Vol]8 mmol/LLow9 - 17 mmol/LBON POMERENE HOSPITALAST [Catalytic activity/Vol]16 U/LNINF - 40 U/LB[facility] Bilirubin [Mass/Vol]0.5 mg/dL0.3 - 1.2 mg/dLBON POMERENE HOSPITALCalcium [Mass/Vol]9.6 mg/dL8.6 - 10.4 mg/dLBON POMERENE HOSPITALChloride [Moles/Vol] 105 mmol/L98 - 107 mmol/LBON POMERENE HOSPITALCO2 [Moles/Vol]26 mmol/L20 - 31 mmol/LBON POMERENE HOSPITALCreatinine [Mass/Vol]1.1 mg/dL0.70 - 1.20 mg/dL [facility]ICAL CENTERGFR/1.73 sq M.predicted MDRD (S/P/Bld) [Vol rate/Area]- PINFBON POMERENE HOSPITALComment on above: These results are not intended [...] therapy that affects renal tubular secretion. Glucose [Mass/Vol]89 mg/dL70 - 99 mg/dLBON [facility] PHOENIXYlopoInterpretation and review of laboratory resultsAbnormalBON [facility] PHOENIXYlopoPotassium [Moles/Vol]4.5 mmol/L3.7 - 5.3 mmol/LBON [facility] SAN FRANCISCOBritely TRIHEALTHProtein [Mass/Vol] 7.1 g/dL6.4 - 8.3 g/dLBON ALMSHOUSE SAN FRANCISCOBritely TRIHEALTHSodium [Moles/Vol]139 mmol/L135 - 144 mmol/LBON ALMSHOUSE SAN FRANCISCOSkylabsUrea nitrogen [Mass/Vol]22 mg/dL8 - 23 mg/dL [facility] iBioUrea nitrogen/Creatinine [Mass ratio]20 mg/mg9 - 20B[facility] PHOENIXYlopoLipid Panelon [id number] [Mass/Vol]164 mg/dLNINF - 200 mg/dLBON [facility] PHOENIXYlopoComment on above: Cholesterol Guidelines: <200 Desirable 200-240 Borderline >240 Undesirable Cholesterol in HDL [Mass/Vol]48 mg/dL40 - PINF mg/dLBCANNON MEMORIAL HOSPITALYlopo Comment on above: HDL Guidelines: <40 Undesirable 40-59 Borderline >59 Desirable Cholesterol in LDL [Mass/Vol]105 mg/dL0 - 130 mg/dLBON [facility] PHOENIXYlopo Comment on above: LDL Guidelines: <100 Desirable 100-129 Near to/above Desirable 130-159 Borderline >159 Undesirable Direct (measured) LDL and calculated LDL are not interchangeable tests. Cholesterol.total/Cholesterol in HDL [Mass ratio]3.4 {ratio}NINF - 5BON [facility]MSHOU[facility] SAN FRANCISCOSkylabsTriglyceride [Mass/Vol]56 mg/dLNINF - 150 mg/dLBON [facility] PHOENIXYlopoComment on above: Triglyceride Guidelines: <150 Desirable 150-199 Borderline 200-499 High >499 Very high Based on AHA Guidelines for fasting triglyceride, December 2011. BON HDmessagingMagnesiumon 73-80-7684Iedxsvcyf [Mass/Vol]2.1 mg/dL1.6 - 2.6 mg/dLBON [facility] PHOENIXYlopoNo Panel Informationon [id number] [facility] PHOENIXYlopoPatient Fasting?on 26-99-1788Especgb Fasting?YESBON POMERENE HOSPITALBON [facility] PHOENIXIsothermal Systems Research M[facility]UTAN HOSPITALBritely TRIHEALTHT4, Freeon 78-80-9107Pgvh T4 [Mass/Vol]1.3 ng/dL 0.9 - 1.7 ng/dLBON [facility] HEALTHTS with Reflexon 77-31-1471Ahccvljkgnuxvi and review of laboratory resultsAbnormalNORTON COMMUNITY [facility]ITAL [Mass/Vol]6.55HighSENTARA PRINCESS ANNE HOSPITALVitamin D 25 Hydroxyon [id number]-patiywxzkoyumd D3 [Mass/Vol]30.1 ng/mL 29.9 - PINF ng/mLSENTARA WILLIAMSBURG REGIONAL MEDICAL CENTERComment on above: Reference Range: Vitamin D status Range Deficiency <20 ng/mL Mild Deficiency 20-30 ng/mL Sufficiency 30-100 ng/mL Toxicity >100 ng/mL [facility] iBioXR CHEST (2 VW)on [id number]/IMPRESSION: 1. Small amount of fluid in one of the major fissures on the lateral view. 2. Slight improvement in airspace opacities at the right lung base. 3. Mild stable cardiomegaly. 4. Chronic mild stranding left mid and lower lung zone. [facility] RIS CONSOLIDATEDEXAM: XR CHEST (2 VW) HISTORY: Reason for exam:->a fib COMPARISON: Chest, [place], 07/09/2022, 08/22/2021, CT abdomen and pelvis 07/12/2022 [facility] RIS CONSOLIDATEDTrago, Lopez Vega Jr., MD - 08/30/2022 EXAM: XR CHEST [...] stranding left mid and lower lung zone. [facility]MMES HOSPITALYlopo Work Phone: radiology Study observation (narrative)[facility] Bountii Phone: XR CHEST (2 VW)Ordered By: Lopez Hough on 08-30-2022 MARYAM IVAN [employer] Work Phone: ct ABD/PELV W CONon [id number] ABD/PELV W CONEXAM: CT scan of the abdomen and pelvis [...] Electronically authenticated by: ZE SOTO Date: 2022-07-13 06:59NoMercy Health Springfield Regional Medical CenterCB AUTO DIFFon [id number] #0.1 103/ulNormal0.0-0.1The Metrohealth SystemComment on above:Performed By: #### CBC #### [facility] [address] [address] [address] Carolina Rosassophils/100 WBC (Bld)0.4 %Normal0.2-2.0The [facility] Comment on above:Performed By: #### CBC #### [facility] [address] [address] [address] Carolina Zhou #0.2 103/ulNormal0.0-0.7The [facility] CenterComment on above: Performed By: #### CBC #### [facility] [address] [place] [address] Dr. Carolina Robleroosinophils/100 WBC (Bld)1.2 %Normal0.9-7.0The [facility] Comment on above:Performed By: #### CBC #### [facility] [address] [place] [address] Dr. Carolina Roblerorythrocyte distribution width (RBC) [Ratio]13.7 %Gyzyql68.0-15.0 The [facility] CenterComment on above:Performed By: #### CBC #### [facility] [address] [place] [address] Dr. Carolina NamHematocrit (Bld) [Volume fraction]36.7 %Critically low42.0-54.0 The [facility] CenterComment on above:Performed By: #### CBC #### [facility] [address] [place] [address] Dr. Carolina NamHemoglobin (Bld) [Mass/Vol]11.6 g/dLCritically low14.0-18.0The [facility] SystemComment on above:Performed By: #### CBC #### [facility] [address] [place] [address] Dr. Carolina Og #0.06 10e3/ulCritically high0.00-0.03The [facility] Comment on above:Performed By: #### CBC #### [facility] [address] [place] [address] Dr. Carolina Og %0.5 %Normal0.0-0.5The [facility] CenterComment on above: Performed By: #### CBC #### [facility] [address] [place] [address] Dr. Carolina Aguilar #1.3 103/ulNormal1.2-3.8The [facility] CenterComment on above:Performed By: #### CBC #### [facility] [address] [address] [address] Carolina Valentinmphocytes/100 WBC (Bld)10.8 %Critically low20.5-60.0The [facility] CenterComment on above:Performed By: #### CBC #### [facility] [address] [place] [address] Dr. Carolina Lopez DIFF REQNONormalThe [facility] CenterComment on above: Performed By: #### CBC #### [facility] [address] [place] [address] Dr. Carolina Martinez (RBC) [Entitic mass]29.9 roGchkrr93.9-34.0The [facility] CenterComment on above:Performed By: #### CBC #### [facility] [address] [place] [address] Dr. Carolina Martinez (RBC) [Mass/Vol]31.6 g/xVFegzbm30.9-35.2The [facility] CenterComment on above:Performed By: #### CBC #### [facility] [address] [place] [address] Dr. Carolina Martinez (RBC) [Entitic vol]94.6 fLCritically high80.0-94.0The [facility]health SystemComment on above:Performed By: #### CBC #### [facility] [address] [place] [address] Dr. Carolina Joya #1.3 103/ulCritically high0.3-0.8ThChillicothe VA Medical Center Comment on above:Performed By: #### CBC #### [facility] [address] [place] [address] Dr. Carolina Roseocytes/100 WBC (Bld)10.4 %Normal1.7-12.0The [facility] Comment on above:Performed By: #### CBC #### [facility] [address] [place] [address] Dr. Carolina De #9.4 103/ulCritically high1.4-6.5ThChillicothe VA Medical Center Comment on above:Performed By: #### CBC #### [facility] [address] [address] [address] Carolina NamNeutrophils/100 WBC (Bld)76.7 %Critically high43.0-75.0The [facility] CenterComment on above:Performed By: #### CBC #### [facility] [address] [address] [address] Carolina NamPlatelet mean volume (Bld) [Entitic vol]9.2 fLCritically low 9.5-13.5The [facility] CenterComment on above:Performed By: #### CBC #### [facility] [address] [address] [address] Carolina NamPLT335 103/oySekjba990-556Jbk [facility] CenterComment on above: Performed By: #### CBC #### [facility] [address] [address] [address] Carolina NamRBC3.88 106/ulCritically low4.70-6.10The [facility] CenterComment on above:Performed By: #### CBC #### [facility] [address] [address] [address] Carolina NamWBC12.2 103/ulCritically high4.0-11.0The [facility] CenterComment on above:Performed By: #### CBC #### [facility] [address] [address] [address] Carolina NamPROF 14(COMP METB)on 72-40-3011Ermgmig [Mass/Vol]2.5 g/dL Critically low3.4-5.0The [facility] CenterComment on above:Performed By: #### CMP ####[facility] [address] [address]Dr. Caorlina NamAlbumin/Globulin [Mass ratio]0.5 {ratio}NormalThe [facility] Comment on above:Performed By: #### CMP ####[facility] [address] [address]Dr.Yilan NamALP [Catalytic activity/Vol] 132 U/LCritically ggoc86-747Ieh [facility] CenterComment on above:Performed By: #### CMP ####[facility] [address] [address]Dr.Yilan ChangALT [Catalytic activity/Vol]29 U/QSjxztg07-43Mep [facility] CenterComment on above:Performed By: #### CMP ####[facility] [address] [address]Dr.Yilan ChangAnion gap [Moles/Vol]10.9 mmol/LNormalThe [facility] CenterComment on above:Performed By: #### CMP ####[facility] [address] [place], [place] [address]Dr.Yilan ChangAST [Catalytic activity/Vol]19 U/IMxyjqb72-56Ddv [facility] CenterComment on above:Performed By: #### CMP ####[facility] Ludjunbdea[address] [place], [place] [address]Dr.Yilan ChangBilirubin [Mass/Vol]0.7 mg/dLNormal0.2-1.0The [facility] CenterComment on above:Performed By: #### CMP ####[facility] Geaizszyxp[address] [place], [place] [address]Dr.Yilan ChangCalcium [Mass/Vol]9.7 mg/dLNormal8.5-10.1The [facility] CenterComment on above:Performed By: #### CMP ####[facility] Segnwmqaml[address] [place], [place] [address]Dr.Yilan ChangChloride [Moles/Vol]99 mmol/EVfftiv97-006Jfo [facility] CenterComment on above:Performed By: #### CMP ####[facility] Z[address]isw[address] [place], [place] [address]Dr.Yilan ChangCO2 [Moles/Vol]28.6 mmol/ISbiylm86.0-32.0The [facility] CenterComment on above:Performed By: #### CMP ####[facility] [address] [place], [place] [address]Dr.Yilan ChangCreatinine [Mass/Vol]1.34 mg/dLCritically high0.70-1.30The [facility] CenterComment on above:Performed By: #### CMP ####[facility] Cxubivslzt[address] [place], [place] [address]Dr.Yilan ChangEGFR-AF GREEK>60Normal>=60The [facility] CenterComment on above:Performed By: #### CMP ####[facility] [address] [place], [place] [address]Dr.Yilan ChangEGFR-NON AF PNJVYKBQ70 mL/min/1.28i2Dvjhtzbcwf low>=60The [facility] CenterComment on above: Performed By: #### CMP ####[facility] [address]xkmwpbyjv[address] [place], [place] [address]Dr.Carolina NamGlobulin (S) [Mass/Vol]5.2 g/dLNormalThe [facility] CenterComwalter [facility] on above:Performed By: #### CMP ####[facility] X[address] [place], [place] [address]Dr.Carolina CyrilGlucose [Mass/Vol]110 mg/dLCritically dzrc55-520Lqs [facility] CenterComment on above: Performed By: #### CMP ####[facility] [address]laa[address] [place], [place] [address]Dr.Carolina NamPotassium [Moles/Vol]4.5 mmol/LNormal 3.5-5.1The [facility] CenterComwalter p. [facility]uther [facility] on above:Performed By: #### CMP ####[facility] Pnltjcmcar[address] [place], [place] [address]Dr.Marybethmichael Nam Protein [Mass/Vol]7.7 g/dLNormal6.4-8.2The [facility] CenterComment on above: Performed By: #### CMP ####[facility] Z[address]ibzwf[address] [place], [place] [address]Dr.Marybethmichael CyrilSodium [Moles/Vol]134 mmol/LCritically fwy760-426Ojp [facility] CenterComment on above:Performed By: #### CMP ####[facility] Xxcwpchogm[address] [place], [place] [address]Dr. Carolina NamUrea nitrogen [Mass/Vol]23.0 mg/dLCritically high7.0-18.0The [facility] CenterComment on above:Performed By: #### CMP ####[facility] [address] [place], [place] [address]DnDr.Yilan NamUrea nitrogen/Creatinine [Mass ratio]17.2 mg/mgNoMercy Health Springfield Regional Medical CenterComment on above:Performed By: #### CMP ####[facility] [address] [place], [place] [address]DxDr.Yilan NamXR KUB 1 VIEWon 90-90-5524YC KUB 1 VIEW EXAMINATION: XR KUB 1 [...] Electronically authenticated by: NITA VILLANUEVA Date: 2022-07-10 10:33[facility] CenterXR CHEST 2 Von [id number] CHEST 2 VEXAM: XR CHEST 2 V HISTORY: Bronchitis COMPARISON: 08/22/21 TECHNIQUE: PA and lateral views of the chest. FINDINGS: The cardiomediastinal silhouette is enlarged. Patchy airspace disease. There is no pneumothorax. No pleural effusion is noted. The osseous structures are intact. IMPRESSION: Patchy airspace disease. Electronically authenticated by: ARTURO PETERSON Date: 2022-07-09 13:02[facility] Medical CenterCB AUTO DIFFon 10-08-4550NVUY #0.1 103/ulNormal0.0-0.1The [facility] CenterComment on above:Performed By: #### CBC #### [facility] [address] [place], [place] [address] Dr. Carolina NamBasophils/100 WBC (Bld)0.9 %Normal0.2-2.0The [facility] Comment on above:Performed By: #### CBC #### [facility] [address] [place] [address] Dr. Carolina Zhou #0.1 103/ulNormal0.0-0.7The [facility] Mary Hospitalment on above: Performed By: #### CBC #### [facility] [address] [place] [address] Dr. Carolina Robleroosinophils/100 WBC (Bld)1.9 %Normal0.9-7.0The [facility] Comment on above:Performed By: #### CBC #### [facility] [address] [place] [address] Dr. Carolina Roblerorythrocyte distribution width (RBC) [Ratio]13.6 %Wezkpo52.0-15.[address] [facility] Hospitalment on above:Performed By: #### CBC #### [facility] [address] [place] [address] Dr. Carolina NamHematocrit (Bld) [Volume fraction]40.1 %Critically low42.0-54.0 The [facility] SystemComment on above:Performed By: #### CBC #### [facility] [address] [place] [address] Dr. Carolina NamHemoglobin (Bld) [Mass/Vol]12.7 g/dLCritically low14.0-18.0The [facility] Hospitalment on above:Performed By: #### CBC #### [facility] [address] [place] [address] Dr. Carolina Og #0.02 10e3/ulNormal0.00-0.03The [facility] CenterComment on above:Performed By: #### CBC #### [facility] [address] [place] [address] Dr. Carolina Og %0.4 %Normal0.0-0.5The [facility] on above: Performed By: #### CBC #### [facility] [address] [place] [address] Dr. Carolina Aguilar #1.2 103/ulNormal1.2-3.8[facility] HospitalComment on above:Performed By: #### CBC #### [facility] [address] [address] [address] Carolina Valentinmphocytes/100 WBC (Bld)21.5 %Ncphld13.5-60.0The [facility] CenterComment on above:Performed By: #### CBC #### [facility] Laboratory [address] [place] [address] Dr. Carolina Lopez DIFF REQNONormalThe Syracuse HospitalComment on above: Performed By: #### CBC #### [facility] [address] [place] [address] Dr. Carolina Martinez (RBC) [Entitic mass]30.0 pcHojhxw43.9-34.0The [facility] CenterComment on above:Performed By: #### CBC #### [facility] Laboratory [address] [place] [address] Dr. Carolina Martinez (RBC) [Mass/Vol]31.7 g/yFVbwbji78.9-35.2The [facility] CenterComment on above:Performed By: #### CBC #### [facility] Laboratory [address] [place] [address] Dr. Carolina Yip (RBC) [Entitic vol]94.6 fLCritically high80.0-94.0The [facility] CenterComment on above:Performed By: #### CBC #### [facility] Laboratory [address] [place] [address] Dr. Carolina Joya #0.6 103/ulNormal0.3-0.8The [facility] CenterComment on above:Performed By: #### CBC #### [facility] Laboratory [address] [place] [address] Dr. Carolina Roseocytes/100 WBC (Bld)11.3 %Normal1.7-12.0The [facility] Comment on above:Performed By: #### CBC #### [facility] Laboratory [address] [place] [address] Dr. Carolina De #3.6 103/ulNormal1.4-6.5The [facility] CenterComment on above:Performed By: #### CBC #### [facility] Laboratory [address] [place] [address] Dr. Carolina Priceutrophils/100 WBC (Bld)64.0 %Gmtpjp76.0-75.0The [facility] CenterComment on above:Performed By: #### CBC #### [facility] Laboratory [address] [place] [address] Dr. Carolina NamPlatelet mean volume (Bld) [Entitic vol]9.4 fLCritically low 9.5-13.5The [facility] CenterComment on above:Performed By: #### CBC #### [facility] Laboratory [address] [place] [address] Dr. Carolina NamPLT234 103/xfOuuprp153-612Gfa [facility] CenterComment on above: Performed By: #### CBC #### [facility] Laboratory [address] [place] [address] Dr. Carolina NamRBC4.24 106/ulCritically low4.70-6.10The [facility] CenterComment on above:Performed By: #### CBC #### [facility] Laboratory [address] [place] [address] Dr. Carolina NamWBC5.7 103/ulNormal4.0-11.0The Metrohealth SystemComment on above: Performed By: #### CBC #### [facility] Laboratory [address] [place] [address] Dr. Carolina NamLIPID PROFILEon 90-75-7221QVIO-HDL RATIO [facility] HospitalComment on above:Result Comment: 3.3 - 4.4 LOW RISK 4.4 - 7.1 AVERAGE RISK 7.1 - 11.0 MODERATE RISK >11.0 HIGH RISKPerformed By: #### LIPID, CMP #### [facility] Laboratory [address] [place] [address] Dr. Carolina NamCholesterol [Mass/Vol]193 mg/dLNormal<=200The [facility] Comment on above:Performed By: #### LIPID, CMP #### [facility] Laboratory [address] [address] [address] Carolina NamCholesterol in HDL [Mass/Vol]52 mg/xZJpbzap68-48Qcp [facility] on above:Performed By: #### LIPID, CMP #### [facility] [address] [address] [address] Carolina NamCholesterol in LDL [Mass/Vol]126.8 mg/dLNoMercy Health Springfield Regional Medical CenterComment on above:Performed By: #### LIPID, CMP #### [facility] [address] [address] [address] Carolina Oliviaesterlawrence.total/Cholesterol in HDL [Mass ratio]3.7 {ratio} NormalThe [facility] CenterComment on above:Performed By: #### LIPID, CMP #### [facility] Laboratory [address] [place] [address] Dr. Carolina Montero NORMAL> or = 60 mg/dl - LOW CARDIOVASCULAR RISK <40 mg/dl - HIGH CARDIOVASCULAR RISKNoMercy Health Springfield Regional Medical CenterComment on above:Performed By: #### LIPID, CMP #### [facility] [address] [address] [address] Carolina Jenkins CALC NORMALSEE BELOWUniversity Hospitals Geauga Medical CenterComment on above:Result Comment: <100 mg/dl OPTIMAL 100 - 129 mg/dl NEAR OR ABOVE OPTIMAL 130 - 159 mg/dl BORDERLINE HIGH 160 - 189 mg/dl HIGH >190 mg/dl VERY HIGH Performed By: #### LIPID, CMP #### [facility] [address] [place] [address] Dr. Carolina NamTriglyceride [Mass/Vol]71 mg/dLNormal<=150The [facility] Comment on above:Performed By: #### LIPID, CMP #### [facility] Laboratory [address] [place] [address] Dr. Carolina BoyleLDL CALC14.2 mg/dLNoMercy Health Springfield Regional Medical CenterComment on above: Performed By: #### LIPID, CMP #### [facility] [address] [place] [address] Dr. Carolina Beckford 14(COMP METB)on 05-12-3327Vtilweo [Mass/Vol]3.6 g/dLNormal 3.4-5.0The [facility] CenterComment on above:Performed By: #### LIPID, CMP #### [facility] [address] [address] [address] Carolina NamAlbumin/Globulin [Mass ratio]0.9 {ratio}NormalThe [facility] CenterComment on above:Performed By: #### LIPID, CMP #### [facility] [address] [address] [address] Carolina BunnP [Catalytic activity/Vol]124 U/LCritically zgtz70-236Bad [facility] CenterComment on above:Performed By: #### LIPID, CMP #### [facility] [address] [address] [address] Carolina BunnT [Catalytic activity/Vol]24 U/HHumbhv24-46Sza [facility] CenterComment on above:Performed By: #### LIPID, CMP #### [facility] [address] [address] [address] Carolina Hicks gap [Moles/Vol]9.5 mmol/LNormalThe [facility] CenterComment on above:Performed By: #### LIPID, CMP #### [facility] [address] [address] [address] Carolina NamAST [Catalytic activity/Vol]22 U/UHviyrm93-16Rmt [facility] CenterComment on above:Performed By: #### LIPID, CMP #### [facility] Laboratory [address] [place] [address] Dr. Carolina NamBilirubin [Mass/Vol]0.6 mg/dLNormal0.2-1.0The [facility] Comment on above:Performed By: #### LIPID, CMP #### [facility] Laboratory [address] [address] [address] Carolina NamCalcium [Mass/Vol]9.5 mg/dLNormal8.5-10.1The [facility] Comment on above:Performed By: #### LIPID, CMP #### [facility] Laboratory [address] [address] [address] Carolina NamChloride [Moles/Vol]104 mmol/UArwfyp05-939Ssd [facility] Comment on above:Performed By: #### LIPID, CMP #### [facility] [address] [address] [address] Carolina NamCO2 [Moles/Vol]28.9 mmol/EZygqzu03.0-32.0The [facility] Comment on above:Performed By: #### LIPID, CMP #### [facility] [address] [address] [address] Carolina NamCreatinine [Mass/Vol]1.17 mg/dLNormal0.70-1.30The [facility] CenterComment on above:Performed By: #### LIPID, CMP #### [facility] Laboratory [address] [place] [address] Dr. Figueroa ChangEGFR-AF GREEK>60Normal>=60The [facility] CenterComment on above:Performed By: #### LIPID, CMP #### [facility] [address] [address] [address] Carolina RobleroGFR-NON AF GREEK=60Normal>=60The [facility] CenterComment on above:Performed By: #### LIPID, CMP #### [facility] [address] [address] [address] Carolina NamGlobulin (S) [Mass/Vol]4.1 g/dLNormalThe [facility] CenterComment on above:Performed By: #### LIPID, CMP #### [facility] [address] [address] [address] Carolina NamGlucose [Mass/Vol]92 mg/hIYfzioa36-465XrsThe [facility] Comment on above:Performed By: #### LIPID, CMP #### [facility] Laboratory [address] [address] [address] Carolina NamPotassium [Moles/Vol]4.4 mmol/LNormal3.5-5.1The [facility] Comment on above:Performed By: #### LIPID, CMP #### [facility] [address] [address] [address] Carolina NamProtein [Mass/Vol]7.7 g/dLNormal6.4-8.2The [facility] Comment on above:Performed By: #### LIPID, CMP #### [facility] [address] [address] [address] Carolina NamSodium [Moles/Vol]138 mmol/PDatzcv907-039Dlf [facility] Comment on above:Performed By: #### LIPID, CMP #### [facility] [address] [address] [address] Carolina NamUrea nitrogen [Mass/Vol]21.0 mg/dLCritically high7.0-18.0The [facility] CenterComment on above:Performed By: #### LIPID, CMP #### [facility] Laboratory [address] [place] [address] Dr. Carolina Delong nitrogen/Creatinine [Mass ratio]17.9 mg/mgNormalThe [facility] CenterComment on above:Performed By: #### LIPID, CMP #### [facility] Laboratory [address] [place] [address] Dr. Carolina Quesada-19, Rapidon 96-63-8803QTZH-CoV-2 (COVID-19) RNA NAY+probe Ql (Unsp spec)Not detectedNot [facility] Memorial HospitalComment on above: Rapid NAAT: The specimen is [...] management decisions. Fact sheet for Healthcare Providers: https://www.fda.gov/media/468832/download Fact sheet for Patients: https://www.fda.gov/media/994926/download Methodology: Isothermal Nucleic Acid Amplification Specimen Description.NASOPHARYNGEAL SWABBON SECMARIKA MARY RUTAN HOSPITALNaheed TRIHEALTHBON MARZENA CRAVENradha 10-23-2021 Specimen: [id number] Received: 10/23/21 Status: MARIA FERNANDA Piersonclint Num: [id number] Spec Type: Surgical Subm Dr: Mik Amaya MD Tissues: A Esophagus Biopsy (ESOPHAGUS) Procedures: HE Stain/2, Gross/Micro L4 Age/ Patient Sex Location Account Attending Physician Bret Yap 81/M [id number] Mik Amaya MD SPEC NUM: [id number] RECD: 10/23/21 STATUS: MARIA FERNANDA KNOWLES NUM: [id number] YEIMI: 10/23/[address] [facility] [address]: Mik Amaya MD ENTERED: 10/23/21 [facility] [address]: SPEC TYPE: Surgical DEPT: S ENTERED BY: [id number] RECV BY: [id number] ORDERED: HE Stain/2, Gross/Micro L4 ORDERED: HE [...] microscopic findings support the above pathologic diagnosis. [id number] Specimen: [id number] Received: 10/23/21 Status: MARIA FERNANDA Piersonclint Num: [id number] Spec Type: Surgical Subm Dr: Mik Amaya MD Tissues: A Esophagus Biopsy (ESOPHAGUS) Procedures: HE Stain/2, Gross/Micro L4 Patient: Bret Yap [id number] (Continued) Signed (signature on file) Va Daugherty MD 10/24/21 1708 [facility] HospitalCOVID-19 [facility]EEon 26-35-2382UNSI-CoV-2 (COVID-19) RNA NAY+probe Ql (Unsp spec)NegativeNormalNegativeMiddletown HospitalComment on above:Order Comment: Healthcare Worker?: NResult Comment: Testing for SARS-CoV-2 by RT-PCR This test was developed and its performance characteristics determined by [employer]) and validated at the [facility]. This test has not been FDA cleared [...] is terminated or revoked sooner. PERFORMED BY: [facility] [address] [place] [address] PATHOLOGIST CLIENT PROGRAM MANAGER VA DAUGHERTY M.D.Performed By: #### COVID 19 [facility] #### [facility] [address] [facility] [place] [place] [address] USACOVID-19 Positive/NegativeOrdered By: Mik Amaya on 21-05-5280TCMU-CoV-2 (COVID-19) N gene NAY+probe Ql (Resp)NegativeNegative [facility]own HospitalComment on above:Testing for SARS-CoV-2 by RT-PCR This test was developed and its performance characteristics determined by [employer] ([employer]) and validated at the [facility]. This test has not been FDA cleared [...] unless the authorization is terminated or revoked sooner.WRIST RIGHT 2 VWSon [id number] RIGHT 2 VWSUniversity of [facility] Department of Radiology [address] [place] [address] Patient Name: BRET YAP : 1940 Sex: M Age: Race: White Pt. Location: 84 Patient Status: D Ordered Date: 10/10/2021 2:15:00 [...] also degenerative joint space narrowing in the scaphoid/trapezium/trapezoid joints. 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 Right distal ulnar osteotomy with early periosteal reaction medially and hardware fixation of the distal radioulnar joint. Electronically signed: Sofia Thakur. Transcribed by: [email or web address], User Resident: Electronically Signed by: SOFIA THAKUR @ 10/13/2021 03:52 [facility] HospitalComment on above:Order Comment: EvaluateWRIST RIGHT 2 Son [id number] RIGHT 2 SUniSuburban [facility] & [facility] Department of Radiology [address] [place], [place] [address] Patient Name: BRET YAP : 1940 Sex: M Age: Race: White Pt. Location: Patient Status: D Ordered Date: 08/29/2021 4:10:00 PM Completed Date: 08/29/2021 04:09 PM Requesting Provider: ISRRAEL GREENE Attending Provider: ISRRAEL GREENE Report Copy To: Signs & Symptoms: M25.531 Pain in right wrist I10 History: Lucrecia Comments: Evaluate Exam: WRIST RIGHT 2 VWS WRIST RIGHT 2 VWS 08/29/2021 4:09 PM CLINICAL INDICATIONS: M25.531 Pain [...] changes at the radiocarpal joint. Approved by:Herb James6/05/2021 1:31 PM. I, Sally Reddy,have reviewed the image(s) and agree with the findings in this report. Electronically signed: Sally Reddy. Transcribed by: [email or web address], User Resident: SALLY GALLAGHER Electronically Signed by: SALLY REDDY @ 08/31/2021 04:36 PM I personally read this/these film(s) with this residentAvita Health System Ontario HospitalComment on above:Order Comment: EvaluateCovid-19 PCR (CVDTBH)on 72-81-2107FSVW-CoV-2 (COVID-19) RNA NAY+probe Ql (Unsp spec)Not detectedNormalNOT DETECTEDThe [facility] CenterComment on above:Result Comment: This test is not yet approved or cleared by the [place] FDA. When there are no FDA-approved or cleared tests available, and other criteria are met, FDA can make tests available under an emergency access mechanism called an Emergency Use Authorization (EUA). The EUA for this test is supported by the Setup Technician of Health and Human Service's (HHS's) declaration [...] of clinical signs and symptoms consistent with SARS-CoV-2.Performed By: #### CVDTBH #### [facility] Laboratory [address] [place] [address] Dr. Carolina NamXR CHEST 2 Von [id number] CHEST 2 VEXAMINATION: XR CHEST 2 V HISTORY: Dyspnea , cough COMPARISON: [...] Electronically authenticated by: NITA VILLANUEVA Date: 2021-08-22 12:35[facility] Medical CenterOperative Reporton [id number] ReportMR#: [id number] S [facility] Pt. Name: Bret Yap Room #: 0C [...] of the long, ring, and small fingers. BEACH EXPERT: Kush Mccartney M.D. ANESTHESIA: Regional. INDICATION FOR [...] point, I had planned on doing a rlwt-ht-peiz transfer of the ring and small tendons [...] used a K-wire d (more content not included)...NormalThe [facility] GLUCOSE LABon 20-80-4721Ianxsqa [Mass/Vol]93 mg/kBYonpnb64-277 The [facility] - DublinComment on above:Performed By: #### [id number] #### [facility] [address] [place] [address], [facility] SARS COV2 IDon 95-46-3752IXXG-CoV-2 (COVID-19) RNA NAY+probe Ql (Unsp spec)NegativeNormalNEGATIVEThe [facility] - DublinComment on above:Result Comment: ID NOW COVID-19 assay performed on the ID NOW [...] Waiver, Certificate of Compliance, or Certificate of Accreditation.Performed By: #### [id number] #### [address] [place] [address], USAWRIST RIGHT 2 [facility] [id number] RIGHT 2 [facility]Sub[facility] Department of Radiology [address] [place] [phone] Patient Name: BRET YAP : 1940 [...] suave kapundji procedure Exam: WRIST RIGHT 2 S WRIST RIGHT 2 S 07/16/2021 9:10 AM [...] note Electronically signed: Kierra Rosales. Transcribed by: [email or web address], User Resident: Electronically Signed by: KIERRA ROSALES @ 07/16/2021 10:16 [facility] HospitalComment on above:Order Comment: Intra-op fluoro. Right wrist suave kapundji procedureCNPNon 86-19-8763QKFGXxanewzrv (HEMASA) BRET YAP ([id number]) 1940 M Date Time Provider Department 07/13/21 KETAN MANZANARES During your visit today, we recorded the following information about you: Aure Riddle RN 07/13/2021 3:16 PM Signed Pt calls and leaves a voicemail stating he isn't able to get in with a local GI doctor until late August and is asking if this is okay. Reviewed previous telephone encounter and Dr Manzanares is ok with this. Pt notified. Aure Riddle RN Allergies As of Date: 07/13/2021 Noted Allergy Reaction BACTRIM (SULFAMETHOXAZOLE-TRIMETH*06/27/2021 16 - Unknown INDOCIN (INDOMETHACIN) 06/27/2021 16 - Unknown Date Reviewed: 07/02/2021 Reviewed by: Jennifer Tucker - Fully Assessed Reason for Visit: Care Coordination [9961] Cmt: appointment question Prescriptions as of 07/13/2021 [...] 20 mg by mouth once daily. - fluticasone/umeclidin/vilanter (TRELEGY ELLIPTA INHALATION) Inhale as instructed. Problem List As Of Date: 07/13/2021 (None) Encounter Status:Closed by AURE RIDDLE on 07/13/21NoMorrow County HospitalMo 92-08-2475IYXOUizttgvdd (HEMASA) BRET YAP ([id number]) 1940 M Date Time Provider Department 07/06/21 [...] of Date: 07/06/2021 Noted Allergy Reaction BACTRIM (SULFAMETHOXAZOLE-TRIMETH*06/27/2021 16 - Unknown INDOCIN (INDOMETHACIN) 06/27/2021 16 - Unknown Date Reviewed: 07/02/2021 Reviewed by: Jennifer Tuckre - Fully Assessed Reason for Visit: Results [...] 20 mg by mouth once daily. - fluticasone/umeclidin/vilanter (TRELEGY ELLIPTA INHALATION) Inhale as instructed. Problem List As Of Date: 07/06/2021 (None) Encounter Status:Closed by RUBEN TELLEZ on 07/06/21Sal[facility] HospitalWRIST RIGHT 2 VWSon [id number] RIGHT 2 [facility]Un[facility]Sub[facility] Department of Radiology [address] [place] [id number] Patient Name: BRET YAP : 1940 Sex: M Age: Race: White Pt. Location: Patient Status: D Ordered Date: 07/03/2021 11:10:00 AM Completed Date: 07/03/2021 11:14 AM Requesting Provider: MELINA GRIGGS Attending Provider: TRES PAZ Report Copy To: SELF, REFERRED Signs & Symptoms: M25.531 Pain in right wrist I10 History: Lucrecia Comments: Exam: WRIST RIGHT 2 VWS WRIST RIGHT 2 VWS 07/03/2021 11:14 AM CLINICAL INDICATIONS: M25.531 Pain [...] above. Electronically signed: Nestor Bonilla. Transcribed by: [email or web address], User Resident: Electronically Signed by: NESTOR BONILLA @ 07/05/2021 09:46 AMNormalLima City Hospital W Auto Differential panel (Bld)on 24-43-6114Xdgpfxdsl (Bld) [#/Vol]0.07 10*3/uLNormal<0.11CK[facility]tering Health Hamilton on above:Order Comment: Specimen Type: BLOOD SPECIMEN [facility] Address: [address] [place], [place] [address]Performed By: #### 55585-2 #### [facility] CLIA [id number] [address] [place] [address] [place] OF AMERICABasophils/100 WBC (Bld)1.0 % NormalCleveland Clinic [facility] on above:Order Comment: Specimen Type: BLOOD SPECIMEN [facility] Address: [address] [place], [place] [address]Performed By: #### 09370-1 #### [facility] CLIA [id number] [address] [place] [address] [place] AMERICADifferential cell count method Nom (Bld)AutoNormalCKettering Health Hamilton on above:Order Comment: Specimen Type: BLOOD SPECIMEN [facility] Address: [address] [place], [place] [address]Performed By: #### 48634-9 #### [facility] CLIA [id number] [address] [place] [address] [place] AMERICAEosinophils (Bld) [#/Vol] 0.09 10*3/uLNormal<0.46[facility] on above:Order Comment: Specimen Type: BLOOD SPECIMEN [facility] Address: [address] [place], [place] [address]Performed By: #### 38780-2 #### [facility] CLIA [id number] [address] [place] [address] [place] AMERICAEosinophils/100 WBC (Bld)1.3 %NormalCleveland Clinic Marymount Hospital on above:Order Comment: Specimen Type: BLOOD SPECIMEN [facility] Address: [address] [place], [place] [address]Performed By: #### 60161-4 #### [facility] CLIA [id number] [address] [place] [address] [place] OF AMERICAErythrocyte distribution width (RBC) [Ratio]13.7 %Yegoxa39.5-15.0[facility] on above:Order Comment: Specimen Type: BLOOD SPECIMEN [facility] Address: [address] [place], [place] [address]Performed By: #### 83937-7 #### [facility] CLIA [id number] [address] [place] [address] [place] OF AMERICAHematocrit (Bld) [Volume fraction]42.3 %Ybwpoq22.0-51.0[facility] on above:Order Comment: Specimen Type: BLOOD SPECIMEN [facility] Address: [address] [place], [place] [address]Performed By: #### 97318-6 #### [facility] CLIA [id number] [address] [place] [address] [place] AMERICAHemoglobin (Bld) [Mass/Vol] 13.1 g/nFJcyxof61.0-17.0[facility] on above:Order Comment: Specimen Type: BLOOD SPECIMEN [facility] Address: [address] [place] [address], [place] [address]Blwprjgbr By: #### 87167-5 #### [facility] CLIA [id number] [address] [place], [place] [id number] [place] OF AMERICAIMMATURE GRAN %0.3 %Normal [facility] on above:Order Comment: Specimen Type: BLOOD SPECIMEN [facility] Address: [address] [place] [address]Performed By: #### 86544-5 #### [facility] CLIA [id number] [address] [place] [address] [place] AMERICAIMMATURE GRAN ABS<0.03Normal <0.10[facility] on above:Order Comment: Specimen Type: BLOOD SPECIMEN [facility] Address: [address] [place], [place] [address]Performed By: #### 31985-0 #### [facility] CLIA [id number] [address] [place] [address] [place] OF AMERICALymphocytes (Bld) [#/Vol] 1.39 10*3/uLNormal1.00-4.00[facility] on above:Order Comment: Specimen Type: BLOOD SPECIMEN [facility] Address: [address] [place] [address]Ktxhmpiuu By: #### 79914-1 #### [facility] CLIA [id number] [address] [place], [place] [id number] [place] OF AMERICALymphocytes/100 WBC (Bld) 20.5 %NormalCleveland Clinic Marymount Hospital on above:Order Comment: Specimen Type: BLOOD SPECIMEN [facility] Address: [address] [place] [address]Performed By: #### 36205-9 #### [facility] CLIA [id number] [address] (RBC) [Entitic mass]29.8 pcLtbnid95.0-34.0[facility] on above:Order Comment: Specimen Type: BLOOD SPECIMEN [facility] Address: [address] [place], [place] [address]Performed By: #### 63796-1 #### [facility] CLIA [id number] [address] [place] [address] (RBC) [Mass/Vol]31.0 g/zGKtoxph43.5-36.0[facility] on above:Order Comment: Specimen Type: BLOOD SPECIMEN [facility] Address: [address] [place], [place] [address]Performed By: #### 21422-5 #### [facility] CLIA [id number] [address] [place] [address] (RBC) [Entitic vol]96.4 cGAjpywf90.0-100.0[facility] on above:Order Comment: Specimen Type: BLOOD SPECIMEN [facility] Address: [address] [place], [place] [address]Performed By: #### 19954-1 #### [facility] CLIA [id number] [address] [place] [address] [place] AMERICAMonocytes (Bld) [#/Vol]0.97 10*3/uLHigh<0.87[facility] on above:Order Comment: Specimen Type: BLOOD SPECIMEN [facility] Address: [address] [place], [place] [address]Performed By: #### 03704-0 #### [facility] CLIA [id number] [address] [place] [address] [place] AMERICAMonocytes/100 WBC (Bld)14.3 %NormalCleveland Clinic Marymount Hospital on above:Order Comment: Specimen Type: BLOOD SPECIMEN [facility] Address: [address] [place], [place] [address]Performed By: #### 24947-8 #### [facility] CLIA [id number] [address] [place] [address] [place] AMERICANeutrophils (Bld) [#/Vol] 4.23 10*3/uLNormal1.45-7.50[facility] on above:Order Comment: Specimen Type: BLOOD SPECIMEN [facility] Address: [address] [place], [place] [address]Performed By: #### 73034-0 #### [facility] CLIA [id number] [address] [place] [address] [place] AMERICANeutrophils/100 WBC (Bld) 62.6 %NormalCleveland Clinic Marymount Hospital on above:Order Comment: Specimen Type: BLOOD SPECIMEN [facility] Address: [address] [place], [place] [address]Performed By: #### 51747-7 #### [facility] CLIA [id number] [address] [place] [address] [place] AMERICANucleated RBC (Bld) [#/Vol] 10*3/uLNormal<0.01[facility] on above:Order Comment: Specimen Type: BLOOD SPECIMEN [facility] Address: [address] [place], [place] [address]Performed By: #### 71624-7 #### [facility] CLIA [id number] [address] [place] [address] [place] AMERICANucleated RBC/100 WBC (Bld) [Ratio]0.0 /100 WBCNormalCKettering Health Hamilton on above:Order Comment: Specimen Type: BLOOD SPECIMEN [facility] Address: [address] [place] [address]Performed By: #### 24752-2 #### [facility] CLIA [id number] [address] [place], [place] [address] [place] AMERICAPlatelet mean volume (Bld) [Entitic vol]9.4 fLNormal9.0-12.7CKettering Health Hamilton on above: Order Comment: Specimen Type: BLOOD SPECIMEN [facility] Address: [address] [place], [place] [address]Performed By: #### 29797-7 #### [facility] CLIA [id number] [address] [place], [place] [address] [place] AMERICAPlatelets (Bld) [#/Vol]232 10*3/qCAslvtz304-888YrkvjurnzCleveland Clinic [facility] on above:Order Comment: Specimen Type: BLOOD SPECIMEN [facility] Address: [address] [place] [address]Performed By: #### 04887-8 #### [facility] CLIA [id number] [address] [place], [place] [address] [place] AMERICARBC (Bld) [#/Vol]4.39 10*6/uLNormal4.20-6.00[facility] on above:Order Comment: Specimen Type: BLOOD SPECIMEN [facility] Address: [address] [place] [phone] By: #### 97903-2 #### [facility] CLIA [id number] [address] [place] [address] [place] AMERICAWBC (Bld) [#/Vol]6.77 10*3/uLNormal3.70-11.00[facility] on above:Order Comment: Specimen Type: BLOOD SPECIMEN [facility] Address: [address] [place] [phone] By: #### 75712-8 #### [facility] CLIA [id number] [address] [place] [id number] [place] AMERICAAbs Immature Gran<0.03<0.10 k/uLGlenbeigh HospitalBasophils (Bld) [#/Vol]0.07 10*3/uL<0.11 k/uLGlenbeigh HospitalBasophils/100 WBC (Bld)1.0 %Glenbeigh HospitalDifferential cell count method Nom (Bld)AutoCleveland ClinicEosinophils (Bld) [#/Vol]0.09 10*3/uL<0.46 k/uL [facility]beigh HospitalEosinophils/100 WBC (Bld)1.3 %[facility]beigh HospitalErythrocyte distribution width (RBC) [Ratio]13.7 %11.5 - 15.0 %[facility]beigh HospitalHematocrit (Bld) [Volume fraction]42.3 %39.0 - 51.0 %[facility]igh HospitalHemoglobin (Bld) [Mass/Vol]13.1 g/dL13.0 - 17.0 g/dLGlenbeigh HospitalImmature Gran %0.3 %[facility]beigh HospitalLymphocytes (Bld) [#/Vol]1.39 10*3/uL1.00 - 4.00 k/uLGlenbeigh Hospital Lymphocytes/100 WBC (Bld)20.5 %[facility] HospitalH (RBC) [Entitic mass]29.8 pg 26.0 - 34.0 pgClevelMercy Hospital of Coon RapidsHC (RBC) [Mass/Vol]31.0 g/dL30.5 - 36.0 g/dL [facility] HospitalV (RBC) [Entitic vol]96.4 fL80.0 - 100.0 fLCBerger Hospital Monocytes (Bld) [#/Vol]0.97 10*3/uLHigh<0.87 k/uLGlenbeigh HospitalMonocytes/100 WBC (Bld)14.3 %[facility]beigh HospitalNeutrophils (Bld) [#/Vol]4.23 10*3/uL1.45 - 7.50 k/uLGlenbeigh HospitalNeutrophils/100 WBC (Bld)62.6 %[facility]lenbeigh HospitalNucleated RBC (Bld) [#/Vol]10*3/uL<0.01 k/uLGlenbeigh HospitalNucleated RBC/100 WBC (Bld) [Ratio]0.0 /100 WBCHart ClinicPlatelet mean volume (Bld) [Entitic vol]9.4 fL9.0 - 12.7 fLCtrumbull regional medical center ClinicPlatelets (Bld) [#/Vol]232 10*3/uL150 - 400 k/uL [facility]beigh HospitalRBC (Bld) [#/Vol]4.39 10*6/uL4.20 - 6.00 m/[facility] HospitalWBC (Bld) [#/Vol]6.77 10*3/uL3.70 - 11.00 k/[facility] HospitalCNOVSPon 07-02-2021 CNOVSPVisit (SP) Office ([facility]MAS[facility]) BRET YAP ([id number]) 1940 M Date Time Provider Department 07/02/21 [...] substance abuse. He lives with his in [place], [place] MEDICATIONS AND ALLERGIES: Reviewed PHYSICAL EXAM [...] monoclonal gammopathy of clin (more content not included)...NormalUniversity Hospitals Parma Medical CenterCNPNon [id number] ([facility]) BRET YAP ([id number]) 1940 M Date Time Provider Department 07/02/21 [facility]AN [facility]ARES [facility] During your visit today, we recorded the following information about you: Jatinder Krause 07/02/2021 11:57 AM Signed See GI for scopes Patient would prefer to stay locally. Dominique/Ty: Can you please refer patient to [facility] Gasto? Thanks! Jatinder [facility] 07/02/2021 12:46 PM Signed Dominique: Information ready for you. Miranda [facility] Prabha L Harsha [facility] 07/02/2021 1:06 PM Signed Records faxed. Miranda [facility] 07/04/2021 10:12 AM Signed Called [employer] spoke with Mary. She states she has not yet gone thru all of their faxes at this time and states for me to call back to check on status of this referral. [facility] 07/05/2021 2:13 PM Signed Called [facility] spoke with Mary. She states they have received referral and their event promotions coordinator will be calling patient soon to schedule. [facility] 07/12/2021 1:49 PM Signed Called [...] scheduling an appointment with their office. [facility] 07/16/2021 3:04 PM Signed Called [facility] spoke with Mary. She states they have patient scheduled with Dr Amaya on 10/04 @ 1:30. [facility] Allergies As of Date: 07/02/2021 Noted Allergy Reaction BACTRIM (SULFAMETHOXAZOLE-TRIMETH*06/27/2021 16 - Unknown INDOCIN (INDOMETHACIN) 06/27/2021 16 - Unknown Date Reviewed: 07/02/2021 Reviewed by: Jennifer Tucker - Fully Assessed Reason for Visit: Referral Information [3698] Cmt: GI Prescriptions as of 07/18/2021 - [...] 20 mg by mouth once daily. - fluticasone/umeclidin/vilanter (TRELEGY ELLIPTA INHALATION) Inhale as instructed. Problem List As Of Date: 07/02/2021 (None) Encounter Status:Closed by JATINDER KRAUSE on 07/18/21NormalCSt. Charles Hospital SerPl-mCncon 72-85-3865QZI [Mass/Vol]0.7 mg/dLNormal<0.9ClevelTuscarawas Hospital on above:Order Comment: Specimen Type: BLOOD SPECIMEN [facility] Address: [address] [place], [place] [address]Performed By: #### 1988-5, B12, 4542-7, 3016-3 #### [facility] CLIA [id number] [address] [place] [address] [place] AMERICAComprehensive metabolic 2000 panelon 75-19-8449Jfkygea [Mass/Vol]4.5 g/dLNormal3.9-4.9CKettering Health Hamilton on above:Order Comment: Specimen Type: BLOOD SPECIMEN [facility] Address: [address] [place], [place] [address]Performed By: #### 51165-5 #### [facility] CLIA [id number] [address] [place] [address] [place] AMERICAALP [Catalytic activity/Vol] 130 U/DMzxp39-257LlzkvwmjvCleveland Clinic [facility] on above:Order Comment: Specimen Type: BLOOD SPECIMEN [facility] Address: [address] [place], [place] [address]Performed By: #### 25067-0 #### [facility] CLIA [id number] [address] [place] [address] [place] AMERICAALT [Catalytic activity/Vol] 13 U/IKbfvwb63-81YtztfyszvCleveland Clinic [facility] Hospital on above:Order Comment: Specimen Type: BLOOD SPECIMEN [facility] Address: [address] [place], [place] [address]Performed By: #### 72113-5 #### [facility] CLIA [id number] [address] [place] [address] [place] AMERICAAnion gap [Moles/Vol]9 mmol/LNormal9-18[facility] on above:Order Comment: Specimen Type: BLOOD SPECIMEN [facility] Address: [address] [place], [place] [address]Performed By: #### 99787-8 #### [facility] CLIA [id number] [address] [place] [address] [place] AMERICAAST [Catalytic activity/Vol] 20 U/YSlqllz21-33HnqsuiucyCleveland Clinic [facility] Hospital on above:Order Comment: Specimen Type: BLOOD SPECIMEN [facility] Address: [address] [place], [place] [address]Performed By: #### 06407-4 #### [facility] CLIA [id number] [address] [place] [address] [place] AMERICABilirubin [Mass/Vol]0.5 mg/dLNormal0.2-1.3CKettering Health Hamilton on above:Order Comment: Specimen Type: BLOOD SPECIMEN [facility] Address: [address] [place] [address]Performed By: #### 20695-2 #### [facility] CLIA [id number] [address] [place] [address] [place] AMERICACalcium [Mass/Vol]9.7 mg/dL Normal8.5-10.2CKettering Health Hamilton on above:Order Comment: Specimen Type: BLOOD SPECIMEN [facility] Address: [address] [place] [address]Performed By: #### 47580-7 #### [facility] CLIA [id number] [address] [place], [place] [address] [place] AMERICAChloride [Moles/Vol]102 mmol/YAafvfk88-843HjwplslzxCleveland Clinic [facility] Hospital on above:Order Comment: Specimen Type: BLOOD SPECIMEN [facility] Address: [address] [place], [place] [address]Performed By: #### 46207-3 #### [facility] CLIA [id number] [address] [place] [address] [place] AMERICACO2 [Moles/Vol]27 mmol/L Tjjzcc38-80YtjgexkyoC[facility] Clinic [facility] Hospital on above:Order Comment: Specimen Type: BLOOD SPECIMEN [facility] Address: [address] [place] [phone] By: #### 93881-4 #### [facility] CLIA [id number] [address] [place] [address] [place] AMERICACreatinine [Mass/Vol]1.17 mg/dLNormal0.73-1.22[facility] on above:Order Comment: Specimen Type: BLOOD SPECIMEN [facility] Address: [address] [place] [phone] By: #### 48615-3 #### [facility] CLIA [id number] [address] [place], [place] [address] [place] AMERICAESTIMATED GLOMERULAR FILTRATION RATE63 mL/min/1.73m???Normal>=60[facility] on above:Order Comment: Specimen Type: BLOOD SPECIMEN [facility] Address: [address] [place] [phone] Comment: Estimated Glomerular Filtration Rate (eGFR) is calculated using the 2020 CKD-EPI cre atinine equation. This equation utilizes serum creatinine, sex, and age as parameters. The creatinine assay has traceable calibration to isotope dilution- mass spectrometry. Refer to KDIGO guidelines for clinical interpretation. In patients with unstable renal function, e.g. those with acute kidney injury, the eGFR may not accurately reflect actual GFR.Performed By: #### 40737-5 #### [facility] [place] [id number] [address] [place] [address] [place] AMERICAGlucose [Mass/Vol]107 mg/dL Jzri76-27LvmpbegluCleveland Clinic Marymount Hospital on above:Order Comment: Specimen Type: BLOOD SPECIMEN [facility] Address: [address] [place] [address]Result Comment: The [place] Diabetes Association (ADA) provides guidance for cutoff [...] Standards of Medical Care in Diabetes 2016, [place] [employer]. Diabetes Care. 2016.39(Suppl 1).Performed By: #### 22732-0 #### [facility] [place] [id number] [address] [place] [address] [place] AMERICAPotassium [Moles/Vol]4.1 mmol/LNormal3.7-5.1CKettering Health Hamilton on above:Order Comment: Specimen Type: BLOOD SPECIMEN [facility] Address: [address] [place], [place] [address]Performed By: #### 01878-3 #### [facility] [place] [id number] [address] [place] [address] [place] AMERICAProtein [Mass/Vol]7.6 g/dL Normal6.3-8.0[facility] on above:Order Comment: Specimen Type: BLOOD SPECIMEN [facility] Address: [address] [place], [place] [address]Performed By: #### 03107-9 #### [facility] CLIA [id number] [address] [place] [address] [place] AMERICASodium [Moles/Vol]138 mmol/L Kcatux340-018IzbgttntaCleveland Clinic [facility]mount Hospital on above:Order Comment: Specimen Type: BLOOD SPECIMEN [facility] Address: [address] [place], [place] [address]Performed By: #### 35698-9 #### [facility] CLIA [id number] [address] [place] [address] [place] AMERICAUrea nitrogen [Mass/Vol]22 mg/dLNormal9-24[facility] on above:Order Comment: Specimen Type: BLOOD SPECIMEN [facility] Address: [address] [place], [place] [address]Performed By: #### 98221-0 #### [facility] CLIA [id number] [address] [place] [address] [place] AMERICAAlbumin [Mass/Vol]4.5 g/dL 3.9 - 4.9 g/dLHart ClinicALP [Catalytic activity/Vol]130 U/LHigh38 - 113 U/LCleveland ClinicALT [Catalytic activity/Vol]13 U/L10 - 54 U/LC[facility] Clinic Anion gap [Moles/Vol]9 mmol/L9 - 18 mmol/LCleveland ClinicAST [Catalytic activity/Vol]20 U/L14 - 40 U/LCleveland ClinicBilirubin [Mass/Vol]0.5 mg/dL0.2 - 1.3 mg/dLHart ClinicCalcium [Mass/Vol]9.7 mg/dL8.5 - 10.2 mg/dLGlenbeigh HospitalChloride [Moles/Vol]102 mmol/L97 - 105 mmol/LCleveland ClinicCO2 [Moles/Vol]27 mmol/L22 - 30 mmol/LCleveland [facility]msted Medical CenterCreatinine [Mass/Vol]1.17 mg/dL0.73 - 1.22 mg/dLGlenbeigh HospitalEstimated Glomerular Filtration Rate63 mL/min/1.73m>=60 mL/min/1.73mCleveland Olmsted Medical CenterGlucose [Mass/Vol]107 mg/wLFwcw77 - 99 mg/dLGlenbeigh HospitalPotassium [Moles/Vol]4.1 mmol/L3.7 - 5.1 mmol/L Glenbeigh HospitalProtein [Mass/Vol]7.6 g/dL6.3 - 8.0 g/dLWright-Patterson Medical Centerodium [Moles/Vol]138 mmol/L136 - 144 mmol/LCleveland Olmsted Medical CenterUrea nitrogen [Mass/Vol]22 mg/dL9 - 24 mg/dLGlenbeigh HospitalEPO SerPl-aCncon 35-70-5788Qrlnnbmiasokby (EPO) Qn14.7 mIU/mLNormal2.6-18.5CKettering Health Hamilton on above:Order Comment: Specimen Type: BLOOD SPECIMEN [facility] Address: [address] [place], [place] [address]Performed By: #### 59949-0 #### [facility] CLIA [id number] [address] [place] [address] [place] AMERICAESR Westergren method (Bld) [Velocity]on 45-47-1874LYO (Bld) [Velocity]29 mm/hHigh0-15[facility] on above:Order Comment: Specimen Type: BLOOD SPECIMEN [facility] Address: [address] [place], [place] [address]Performed By: #### 64688-9 #### [facility] CLIA [id number] [address] [place] [address] [place] AMERICAHaptoglob SerPl-mCncon 09-81-9934Pgukjfzgeju [Mass/Vol]189 mg/yPRuglar78-540Rbblwbimj [facility] Comment on above:Order Comment: Specimen Type: BLOOD SPECIMEN [facility] Address: [address] [place], [place] [address]Performed By: #### 1988-5, B12, 4542-7, 3016-3 #### [facility] CLIA [id number] [address] [place] [address] [place] AMERICAIMMUNOFIXATION SCREEN, SERUM on 18-51-9914TICYFWBAZSCXQL (MPA)Atypical restricted bands are present in the IgG and lambda regions. Consistent with IgG lambda monoclonal gammopathy.Normal [facility] on above:Order Comment: Specimen Type: BLOOD SPECIMEN [facility] Address: [address] [place], [place] [address]Performed By: #### 2885-2, [id number], IFESC #### [facility] CLIA [id number] [address] [place] [address] [place] AMERICAMPA RESULTM protein is present.AbnormalNo M protein is identified.[facility] on above:Order Comment: Specimen Type: BLOOD SPECIMEN [facility] Address: [address] [place], [place] [address]Performed By: #### 2885-2, [id number], IFESC #### [facility] CLIA [id number] [address] [place] [address] [place] AMERICASTAFF REVIEW (MPA)Reviewed by Stuart Cordoba MD, Ph.D ([id number])NormalC[facility] Clinic [facility] on above:Order Comment: Specimen Type: BLOOD SPECIMEN [facility] Address: [address] [place], [place] [address]Performed By: #### 2885-2, [id number], IFESC #### [facility] CLIA [id number] [address] [place] [address] [place] AMERICAIMMUNOGLOBULINS GAMon 64-10-6138XrF [Mass/Vol]213 mg/pQQzqmwp71-639LggoheubzC[facility] Clinic [facility] on above:Order Comment: Specimen Type: BLOOD SPECIMEN [facility] Address: [address] [place], [place] [address]Performed By: #### SERIMM #### [facility] CLIA [id number] [address] [place] [address] [place] AMERICAIgG [Mass/Vol]1267 mg/dL Ctrocr999-8,600[facility] on above:Order Comment: Specimen Type: BLOOD SPECIMEN [facility] Address: [address] [place], [place] [address]Performed By: #### SERIMM #### [facility] CLIA [id number] [address] [place] [address] [place] AMERICAIgM [Mass/Vol]87 mg/dLNormal 40-230[facility] on above:Order Comment: Specimen Type: BLOOD SPECIMEN [facility] Address: [address] [place], [place] [address]Performed By: #### SERIMM #### [facility] CLIA [id number] [address] [place] [address] [place] AMERICAKAPPA/WADDELL,FREE,SERon 59-04-7157Oricngxaqtrmzc light chains.kappa.free (S) [Mass/Vol]24.6 mg/LHigh 3.3-19.4CKettering Health Hamilton on above:Order Comment: Specimen Type: BLOOD SPECIMEN [facility] Address: [address] [place], [place] [address]Performed By: #### 96474-5 #### [facility] CLIA [id number] [address] [place] [address] [place] AMERICAImmunoglobulin light chains.kappa/Immunoglobulin light chains.lambda (S) [Mass ratio]0.16Low0.26-1.65 [facility] on above:Order Comment: Specimen Type: BLOOD SPECIMEN [facility] Address: [address] [place], [place] [address]Performed By: #### 14477-2 #### [facility] CLIA [id number] [address] [place] [address] [place] AMERICAImmunoglobulin light chains.lambda.free [Mass/Vol]149.8 mg/LHigh5.7-26.3CSal[facility] Comment on above:Order Comment: Specimen Type: BLOOD SPECIMEN [facility] Address: [address] [place], [place] [address]Performed By: #### 82371-1 #### [facility] CLIA [id number] [address] [place] [address] [place] OF AMERICALD LACTATE DEHYDROon 87-91-1022WRG [Catalytic activity/Vol]166 U/L135 - 225 U/LCleveland ClinicLDH SerPl-cCncon 66-13-0630AYR [Catalytic activity/Vol]166 U/LQubkgo858-113DjzmyvtweC[facility] Clinic [facility] on above:Order Comment: Specimen Type: BLOOD SPECIMEN [facility] Address: [address] [place], [place] [address]Performed By: #### 17972-7 #### [facility] CLIA [id number] [address] [place] [address] [place] AMERICAPROTEIN ELECTROPHORESIS SERUM (P)on 72-34-0685Zizyqkc [Mass/Vol]3.99 g/dLNormal3.37-4.23[facility] on above:Order Comment: Specimen Type: BLOOD SPECIMEN [facility] Address: [address] [place], [place] [address]Performed By: #### 2885-2, [id number], IFESC #### [facility] CLIA [id number] [address] [place] [address] [place] AMERICAAlpha 1 globulin Elph [Mass/Vol]0.27 g/dLNormal0.18-0.31[facility] on above: Order Comment: Specimen Type: BLOOD SPECIMEN [facility] Address: [address] [place], [place] [address]Performed By: #### 2885-2, [id number], IFESC #### [facility] CLIA [id number] [address] [place] [address] [place] AMERICAAlpha 2 globulin Elph [Mass/Vol]0.79 g/dLNormal0.52-0.97[facility] on above: Order Comment: Specimen Type: BLOOD SPECIMEN [facility] Address: [address] [place], [place] [address]Performed By: #### 2885-2, [id number], IFESC #### [facility] CLIA [id number] [address] [place] [address] [place] AMERICABeta globulin Elph [Mass/Vol]1.16 g/dLNormal0.84-1.36[facility] on above: Order Comment: Specimen Type: BLOOD SPECIMEN [facility] Address: [address] [place], [place] [address]Performed By: #### 2885-2, [id number], IFESC #### [facility] CLIA [id number] [address] [place] [address] [place] AMERICAGamma globulin Elph (Body fld) [Mass fraction]1.39 g/dLNormal0.70-1.44[facility] on above:Order Comment: Specimen Type: BLOOD SPECIMEN [facility] Address: [address] [place], [place] [address]Performed By: #### 2885-2, [id number], IFESC #### [facility] CLIA [id number] [address] [place] [address] [place] AMERICAINTERPRETATION COMMENT FOR PROTEIN ELECTROPHORESISSee separate immunofixation report for characterization of monoclonal gammopathy.NormalCleveland Clinic Marymount Hospital on above:Order Comment: Specimen Type: BLOOD SPECIMEN [facility] Address: [address] [place] [address]Performed By: #### 2885-2, [id number], IFESC #### [facility] CLIA [id number] [address] [place] [address] [place] AMERICAM-PROTEIN LOCATIONGamma Fraction 1NormalCleveland Clinic [facility] on above:Order Comment: Specimen Type: BLOOD SPECIMEN [facility] Address: [address] [place], [place] [address]Performed By: #### 2885-2, [id number], IFESC #### [facility] CLIA [id number] [address] [place] [address] [place] AMERICAProtein Fractions [Interp]An M protein is identified on protein electrophoresis.AbnormalNo definitive M protein is identified on protein electrophoresis.[facility] Comment on above:Order Comment: Specimen Type: BLOOD SPECIMEN [facility] Address: [address] [place], [place] [address]Performed By: #### 2885-2, [id number], IFESC #### [facility] CLIA [id number] [address] [place] [address] [place] AMERICAProtein.monoclonal Elph [Mass/Vol]0.66 g/dLHigh<=0.00[facility] on above:Order Comment: Specimen Type: BLOOD SPECIMEN Ordering Facility: [facility] Address: [address] [place] [address]Performed By: #### 2885-2, [id number], IFESC #### [facility] CLIA [id number] [address] [place] [address] [place] OF AMERICASPE STAFF REVIEWReviewed by Stuart Cordoba MD, Ph.D ([id number])[facility] on above:Order Comment: Specimen Type: BLOOD SPECIMEN [facility] Address: [address] [place], [place] [address]Performed By: #### 2885-2, [id number], IFESC #### [facility] CLIA [id number] [address] [place] [address] [place] OF AMERICAProt SerPl-mCncon 07-02-2021 Protein [Mass/Vol]7.0 g/dLNormal6.3-8.0[facility] on above:Order Comment: Specimen Type: BLOOD SPECIMEN [facility] Address: [address] [place], [place] [address]Performed By: #### 2885-2, [id number], IFESC #### [facility] CLIA [id number] [address] [place] [address] STATES OF AMERICARETIC COUNTon 07-02-2021 Reticulocytes (Bld) [#/Vol]0.07190 10*3/uL0.018 - 0.100 M/uLGlenbeigh Hospital Retics #on 70-43-2663Hnvioepclavzy (Bld) [#/Vol]0.53499 10*3/uLNormal0.018-0.100 [facility] on above:Order Comment: Specimen Type: BLOOD SPECIMEN [facility] Address: [address] [place], [place] [address]Performed By: #### 34148-7, 81975-1 #### [facility] CLIA [id number] [address] [place] [address] 21919Yroestigzbizk (Bld) [#/Vol]on 88-60-4375Augryvoseylbf/100 RBC (Bld)0.8 %Normal0.4-2.0[facility] on above:Order Comment: Specimen Type: BLOOD SPECIMEN [facility] Address: [address] [place] [address] [place] [id number] By: #### 29171-6, 12999-6 #### [facility] CLIA [id number] [address] [place] [address] 37846Cgyzcxxdgrred/100 RBC (Bld)0.8 %0.4 - 2.0 %[place] SerPl-aCncon 79-60-0450RPN Qn6.160 m[IU]/LHigh0.270-4.200[facility] on above:Order Comment: Specimen Type: BLOOD SPECIMEN [facility] Address: [address] [place], [place] [address]Performed By: #### 1987-5, B12, 4542-7, 3016-3 #### [facility] CLIA [id number] [address] [place] [address] [place] OF AMERICAVITAMIN B12 BLOODon 22-27-8543Bzrvpphnw (Vitamin B12) [Mass/Vol]663 pg/wDPzqhkz171-5,245[facility] on above:Order Comment: Specimen Type: BLOOD SPECIMEN [facility] Address: [address] [place], [place] [address] [address]Performed By: #### 1986-, B12, 45427, 3016-3 #### [facility] CLIA [id number] [address] [place] [address] [place] OF AMERICAC-Reactive ProteinOrdered By: Wing Álvarez on 29-88-4473TWE [Mass/Vol]7.8 mg/LHigh0.0 - 5.0 mg/LMercy [employer] Work Phone: Interpretation and review of laboratory results AbnormalDelaware County HospitalSmartLink Radio Networks Work Phone: c3 ComplementOrdered By: Wing Álvarez on 12-14-2020 Complement C3145 mg/dL90 - 180 mg/dLDelaware County HospitalSmartLink Radio Networks Work Phone: c4 ComplementOrdered By: Wing Álvarez on 12-14-2020 Complement C431 mg/dL10 - 40 mg/dLDelaware County HospitalSmartLink Radio Networks Work Phone: comprehensive Metabolic PanelOrdered By: Wing Álvarez on 60-15-4063Vltovyx [Mass/Vol]3.8 g/dL3.5 - 5.2 g/dLMagruder Hospital [employer] Work Phone: Slbumin/Globulin RatioNOT REPORTEDMer [employer] Work Phone: OLP (Bld) [Catalytic activity/Vol]117 U/L40 - 129 U/L [facility] [employer] Work Phone: OLT [Catalytic activity/Vol]12 U/L5 - 41 U/LMaultman alliance community hospital [employer] Work Phone: Inion gap [Moles/Vol]9 mmol/L9 - 17 mmol/LMselect medical ohiohealth rehabilitation hospitaly [employer] Work Phone: DST [Catalytic activity/Vol]17 U/L<40Mer [employer] Work Phone: Pilirubin [Mass/Vol]0.47 mg/dL0.30 - 1.20 mg/dLMagruder Hospital [employer] Work Phone: calcium [Mass/Vol]9.3 mg/dL8.6 - 10.4 mg/dLDelaware County HospitalEventup Phone: Chloride [Moles/Vol]102 mmol/L98 - 107 mmol/LMercy [employer] Work Phone: KO2 [Moles/Vol]24 mmol/L20 - 31 mmol/LMercy [employer] Work Phone: Zreatinine [Mass/Vol]1.08 mg/dL0.70 - 1.20 mg/dLDelaware County HospitalSmartLink Radio Networks Work Phone: Free PSA/Total PSA [Mass fraction]7.0 g/dL6.4 - 8.3 g/dLMagruder Hospital [employer] Work Phone: GFR >60>60 mL/minDelaware County HospitalSmartLink Radio Networks Work Phone: GFR Non->60>60 mL/minDelaware County HospitalEventup Phone: GFR/1.73 sq M.predicted MDRD (S/P/Bld) [Vol rate/Area] Here@ Networks Phone: comment on above:Average GFR for 70 or more years old: 75 mL/min/1.73sq m Chronic Kidney Disease: <60 mL/min/1.73sq m Kidney failure: <15 mL/min/1.73sq m eGFR calculated using average adult body mass. Additional eGFR calculator available at: http://www.Climeworks/multiple_crcl_2012.htm GFR/1.73 sq M.predicted MDRD (S/P/Bld) [Vol rate/Area]NOT REPORTEDDelaware County HospitalEventup Phone: Glucose [Mass/Vol]114 mg/ySVjdb45 - 99 mg/dLDelaware County HospitalEventup Phone: Interpretation and review of laboratory results AbnormalDelaware County HospitalEventup Phone: potassium [Moles/Vol]3.8 mmol/L3.7 - 5.3 mmol/LMselect medical ohiohealth rehabilitation hospitaly [employer] Phone: sodium [Moles/Vol]135 mmol/L135 - 144 mmol/LMselect medical ohiohealth rehabilitation hospitaly [employer] Phone: Urea nitrogen (BldV) [Mass/Vol]22 mg/dL8 - 23 mg/dL [facility] HospitalGlobaTrek Phone: Urea nitrogen/Creatinine (Bld) [Mass ratio]20Del[facility] HospitalEventup Phone: [facility] HospitalEventup Phone: FerritinOrdered By: Wing Álvarez on 22-10-7104Vhuzdsxv 40 ug/L30 - 400 ug/LMOYE! Phone: Iron and TIBCOrdered By: Wing Álvarez on 12-14-2020 Interpretation and review of laboratory resultsAbnormalDelaware County HospitalEventup Phone: Iron [Mass/Vol]48 ug/dLLow59 - 158 ug/dLMagruder Hospital [facility].[employer] Phone: Iron Zefsrybbms01 %Low20 - 55 %[facility] [employer] Work Phone: TIBC374 ug/dL250 - 450 ug/dLMagruder Hospital [employer] Work Phone: UIBC326 ug/dL112 - 347 ug/dLMagruder Hospital [employer] Work Phone: No Panel InformationOrdered By: Wing Álvarez on 05-77-1161Qsokb [facility] Phone: [facility] Phone: protein / creatinine ratio, urineOrdered By: Wing Álvarez on 17-41-2572Uommenmwzy, Ur22.0 mg/dLLow39.0 - 259.0 mg/dLMagruder Hospital [employer] Phone: Interpretation and review of laboratory results AbnormalMagruder Hospital [employer] Phone: Total Protein, Urine<4mg/dLMagruder Hospital [employer] Phone: comment on above:No normal range established.Urine Total Protein Creatinine RatioCANNOT BE CALCULATEDDelaware County HospitalEventup Phone: [facility] Phone: sedimentation RateOrdered By: Wing Álvarez on 59-66-5552Gkjphpozyplkfk and review of laboratory resultsAbnormalMagruder Hospital [employer] Phone: sed Rate45 mmHigh0 - 20 mmMagruder Hospital [facility] Phone: [facility] Phone: Urinalysis Reflex to CultureOrdered By: Wing Álvarez on 90-60-7469Jizltbbto UrineNegativeNEGATIVEDelaware County HospitalEventup Phone: color, UAYELLOWYELLOWMagruder Hospital Well.[employer] Phone: Glucose, UrNegativeNEGATIVEMagruder Hospital Health Work Phone: Ketones Ql (U)NegativeNEGATIVEMagruder Hospital Health Work Phone: leukocyte esterase Test strip Ql (U)NegativeNEGATIVE [facility] [employer] Work Phone: Nitrite, UrineNegativeNEGATIVEMagruder Hospital Health Work Phone: pH, UA5.0[facility] Work Phone: protein, UANegativeNEGATIVEMagruder Hospital Health Work Phone: specific [place], UA1.010[facility] Work Phone: Turbidity UACLEARCLEARMer Health Work Phone: Urinalysis CommentsMagruder Hospital Health Work Phone: Urine HgbNegativeNEGATIVEMagruder Hospital Health Work Phone: Urobilinogen, UrineNormalNormalMagruder Hospital [facility] Work Phone: [facility] Work Phone: Vitamin B12 & FolateOrdered By: Wing Álvarez on 30-39-3383Awhavrhlk (Vitamin B12) [Mass/Vol]656 pg/mL232 - 1245 pg/mLMagruder Hospital [employer] Work Phone: Folate13.9 ng/mL>4.8[facility] Work Phone: [facility] Work Phone: brain Natriuretic PeptideOrdered By: Pamela Montoya on 78-23-7367WLV InterpretationPro-BNP Reference Range:[facility] [employer] Work Phone: comment on above: Rule Out: <300 [place] Zone: Age <50 300-450 Age 50-75 300-900 Age >75 300-1800 Usually represents mild to moderate HF but other cardiopulmonary causes cannot be ruled out. Rule In: Age <50 >450 Age 50-75 >900 Age >75 >1800 Natriuretic peptide B (Bld) [Mass/Vol]3270 pg/mLHigh<300Del[facility] HospitalEventup Phone: comment on above:Pro-BNP results cannot be compared to BNP results.CBC Auto DifferentialOrdered By: Pamela Montoya on 15-60-3476Sgzzsltk Eos #0.20[facility] HospitalEvent[facility] Phone: absolute Immature GranulocyteNOT REPORTEDDelaware County HospitalEventup Phone: absolute Lymph #1.20[facility] HospitalEvent[facility] Phone: absolute [place] #0.80[facility] HospitalEvent[facility] Phone: basophils (Bld) [#/Vol]0.00 10*3/uLDelaware County HospitalEventup Phone: basophils/100 WBC (Bld)1 %0 - 2 %Here@ Networks Phone: differential TypeYESMercGlobaTrek Phone: eosinophils/100 WBC (Bld)3 %0 - 5 %Here@ Networks Phone: Hematocrit (Bld) [Volume fraction]31.1 %Low41 - 53 % Here@ Networks Phone: Hemoglobin.gastrointestinal spec 1 Ql (Stl)10.1 g/dL Low13.5 - 17.5 g/dLDelaware County HospitalEventup Phone: Immature GranulocytesNOT REPORTED0 %Here@ Networks Phone: Interpretation and review of laboratory results AbnormalDelaware County HospitalEventup Phone: lymphocytes/100 WBC (Bld)17 %13 - 44 %Here@ Networks Phone: MCH (RBC) [Entitic mass]29.6 pg26 - 34 pgDelaware County HospitalEventup Phone: MCHC (RBC) [Mass/Vol]32.6 g/dL31 - 37 g/dLDelaware County HospitalEventup Phone: MCV (RBC) [Entitic vol]90.8 fL80 - 100 [employer] Phone: Monocytes/100 WBC (Bld)12 %High5 - 9 %Here@ Networks Phone: NRBC AutomatedNOT REPORTEDper 100 WBCHere@ Networks Phone: platelet distribution width (Bld) [Ratio]14.4 %12.1 - 15.2 %Here@ Networks Phone: platelet EstimateNOT REPORTEDHere@ Networks Phone: platelet mean volume (Bld) [Entitic vol]NOT REPORTED 6.0 - 12.0 [employer] Phone: Platelets (Bld) [#/Vol]259 10*3/[employer] Phone: RBC (Bld) [#/Vol]3.43 10*6/uLLow4.5 - 5.9 m/[employer] Phone: RBC (Bld) [#/Vol]NOT REPORTEDDelaware County HospitalEventup Phone: segmented neutrophils/100 WBC (Bld)67 %39 - 75 %Here@ Networks Phone: segs Absolute4.80Del[facility] HospitalEventup Phone: WBC (Bld) [#/Vol]7.1 10*3/[employer] Phone: WBC (Bld) [#/Vol]NOT REPORTEDDelaware County HospitalEventup Phone: [facility] HospitalEventup Phone: comprehensive Metabolic Panel w/ Reflex to MGOrdered By: Pamela Montoya on 21-79-7307Zvohlhj [Mass/Vol]3.6 g/dL3.5 - 5.2 g/dLHere@ Networks Phone: Albumin/Globulin RatioNOT REPORTEDMerSmartLink Radio Networks Work Phone: FLP (Bld) [Catalytic activity/Vol]131 U/LHigh40 - 129 U/LMeNeura Therapeuticsy [employer] Work Phone: OLT [Catalytic activity/Vol]14 U/L5 - 41 U/LMeNeura Therapeuticsy [employer] Work Phone: Gnion gap [Moles/Vol]8 mmol/LLow9 - 17 mmol/LMeNeura Therapeuticsy [employer] Work Phone: TST [Catalytic activity/Vol]19 U/L<40[facility] HospitalEvent[facility] Phone: Zilirubin [Mass/Vol]0.31 mg/dL0.30 - 1.20 mg/dLDelaware County HospitalEventup Phone: Dalcium [Mass/Vol]9.1 mg/dL8.6 - 10.4 mg/dLDelaware County HospitalEventup Phone: Vhloride [Moles/Vol]105 mmol/L98 - 107 mmol/LMeNeura Therapeuticsy [employer] Work Phone: EO2 [Moles/Vol]23 mmol/L20 - 31 mmol/LMeNeura Therapeuticsy [employer] Work Phone: creatinine [Mass/Vol]0.88 mg/dL0.70 - 1.20 mg/dLDelaware County HospitalEventup Phone: Free PSA/Total PSA [Mass fraction]6.9 g/dL6.4 - 8.3 g/dLDelaware County HospitalEventup Phone: GFR >60>60 mL/minDelaware County HospitalEventup Phone: GFR Non->60>60 mL/minDelaware County HospitalEventup Phone: GFR/1.73 sq M.predicted MDRD (S/P/Bld) [Vol rate/Area] [facility] HospitalGlobaTrek Phone: comment on above:Average GFR for 70 or more years old: 75 mL/min/1.73sq m Chronic Kidney Disease: <60 mL/min/1.73sq m Kidney failure: <15 mL/min/1.73sq m eGFR calculated using average adult body mass. Additional eGFR calculator available at: http://www.Climeworks/multiple_crcl_2012.htm GFR/1.73 sq M.predicted MDRD (S/P/Bld) [Vol rate/Area]NOT REPORTEDMagruder Hospital Well.ca Phone: Glucose [Mass/Vol]109 mg/xZYhel48 - 99 mg/dLMagruder Hospital [facility] Phone: potassium [Moles/Vol]4.1 mmol/L3.7 - 5.3 mmol/LMaultman alliance community hospital [employer] Work Phone: sodium [Moles/Vol]136 mmol/L135 - 144 mmol/LMselect medical ohiohealth rehabilitation hospitaly [employer] Phone: Urea nitrogen (BldV) [Mass/Vol]21 mg/dL8 - 23 mg/dL [facility] [employer] Work Phone: Urea nitrogen/Creatinine (Bld) [Mass ratio]24HighMagruder Hospital Well.[employer] Phone: No Panel InformationOrdered By: Pamela Montoya on 75-86-4784Pggdqfyypiaasf and review of laboratory resultsAbnoSelect Specialty Hospital Well.[employer] Phone: [facility] Phone: sedimentation RateOrdered By: Pamela Montoya on 64-23-3182Kfuznbznkameux and review of laboratory resultsAbnormAtrium Health University City Well.ca Phone: sed Rate45 mmHigh0 - 20 mmMagruder Hospital Well.ca Phone: [facility] Phone: TroponinOrdered By: Pamela Montoya on 96-90-4121Rkyujjev InterpNOT REPORTEDMagruder Hospital [employer] Work Phone: Troponin TNOT REPORTED<0.03 ng/mLMerEventup Phone: Troponin, High Jprofcazifn14 ng/L0 - 22 ng/LMaultman alliance community hospital Well.ca Phone: comment on above: High Sensitivity Troponin values cannot be compared with other Troponin methodologies. Patients with high levels of Biotin oral intake (i.e >5mg/day) may have falsely decreased Troponin levels. Samples collected within 8 hours of biotin intake may require additional information for diagnosis. XR CHEST (2 VW)Ordered By: Pamela Montoya on . Borderline cardiomegaly. 2. Moderate hiatal hernia noted. 3. The lungs show chronic changes and findings of COPD. Minimal fluid and atelectasis noted in the lung bases. Mild fluid or atelectasis along the mid and superior aspect of the major fissure most likely on the left.Here@ Networks Phone: eXAM: XR CHEST (2 VW) HISTORY: Reason for exam:- >vasculitis COMPARISON: Two-view chest from 07/27/2020. TECHNIQUE: Frontal [...] the left. Diaphragm and bony elements are inta ct.Here@ Networks Phone: edi, [facility] Incoming Radiant Results From [employer] - 10/20/2020 5:39 PM EDT EXAM: XR [...] major fissure most likely on the left. [employer] Work Phone: [facility] HospitalEvent[facility] Phone: basic metabolic 2000 panelon 06-91-5040Apjtdkq [Mass/Vol]8.9 mg/dLNormal8.5-10.6Mount [facility] CenterChloride [Moles/Vol] 103 mmol/SVonjam51-320Dcjog [facility] CenterCO2 [Moles/Vol]25 mmol/LNormal 21-32Mount [facility] CenterCreatinine [Mass/Vol]0.92 mg/dLNormal0.70-1.30 [facility] HospitalGlucose [Mass/Vol]101 mg/oKNvia40-53Rioen [facility] CenterPotassium [Moles/Vol]3.9 mmol/LNormal3.5-5.1[facility] Foundationodium [Moles/Vol]137 mmol/UWvrqmr229-593Zrsrc [facility] CenterUrea nitrogen (BldV) [Mass/Vol]13 mg/dLNormal7.0-18.0Mount [facility] CenterUrea nitrogen/Creatinine [Mass ratio]14 mg/mgNormalMount [facility] Magnesium Levelon 94-28-4469Qgdoueotn [Mass/Vol]1.8 mg/dLNormal1.8-2.4Mount [facility] CenterPatient Summaryon 15-61-1640Dcjcfaj SummaryPATIENT DISCHARGE INSTRUCTIONS If you are having an emergency and are not able to reach your physician, CALL 911 or go to the nearest emergency room and take this document with you. [facility] 08/17/20 13:08 [address] [place]. [address] PATIENT INFORMATION Name: MARELY, BRET REYNAGA Address: [address] [address] Age: 80 Years Phone: [phone] : 1940 12:00 MRN: [facility])-[id number] Sex: Male Race: White Ethnicity: Not Hispan/Lat Admitted From: Clinic or [facility] Medical Service: Orthopedic Surgery Nurse Unit/Bed: (CO) 2N 0216-01 Admit Date: 08/14/2020 08:28 PCP: Aaron DE LA PAZ , Faizan Waite PHYSICIANS INVOLVED WITH CARE Attending Physicians: Norman Michelle MD - Orthopaedic Surg Admitting Physician: Norman Michelle MD - Orthopaedic Surg Primary Care Physician:Aaron DE LA PAZ , Faizan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 effusions.[facility], Lakshmi, leslee Incoming Radiant Results From pickrset/Tagstr - 09/18/2019 6:42 PM EDT EXAMINATION: CT [...] and indeterminate compression fractures T1-T2 and T4. [place], [place] Vital Signs Date TimeVital SignValuePerforming YqzfesuhjFhnryqgx80-42-7462 08:53-0400Body kvvvaj759.9 cmChriststeffanie Gusman DPM Work Phone: [phone] CenterFhctnylhhm26-11-3149 08:53-0400Body mass index (BMI) [Ratio]26.45 kg/q8Mwkexhhofwi Bohach DPM Work Phone: [phone] CenterPngrsqsqje43-71-2247 08:53-0400Body icvqmx28.45 kgChristopher Gusmna DPM Work Phone: [phone]-[facility] ClinicsK[facility] Medical CenterRachpowvmb47-22-4823 08:53-0400Diastolic blood mdaxaxko03 mm[Hg]Carol Gusman DPM Work Phone: [phone] CenterAzetlicvzx80-02-4528 08:53-0400Heart rate62 /min Carol Gusman DPM Work Phone: [facility] CenterJoucrzyuff90-05-3758 08:53-0400Systolic blood tbofwqaj873 mm[Hg]Carol Gusman DPM Work Phone: [phone] [place], [place] [address]Bkjkrxdsjd14-87-1070 16:34-0400Body liglcg877 cm [address]10-20-2025 16:34-0400Body mass index (BMI) [Ratio] 25.04 kg/m[address]10-20-2025 16:34-0400Body .45 kg [address]09-24-2025 10:28-0400Body sygtpq615.8 cmFaizan Bragg MD Work Phone: [phone]09-24-2025 10:28-0400 Body mass index (BMI) [Ratio]29.2 kg/p8PbdlefFaizan Bragg MD Work Phone: [phone]09-24-2025 10:28-0400 Body yasrtlixbms80.5 [degF]Faizan Bragg MD Work Phone: [phone]09-24-2025 10:28-0400 Body awylfh55.53 kgFaizan Bragg MD Work Phone: [phone]09-24-2025 10:28-0400 Diastolic blood kisqottx47 mm[Hg]Faizan Bragg MD Work Phone: [phone]09-24-2025 10:28-0400 Heart rate71 /minFaizan Bragg MD Work Phone: [phone]09-24-2025 10:28-0400 SaO2% (BldA) [Mass fraction]94 %Faizan Bragg MD Work Phone: [phone] [place], [place] 2586509-24-2025 10:28-0400 Systolic blood ojhgyvzj590 mm[Hg]Faizan Bragg MD Work Phone: [phone]09-10-2025 09:28-0400 Body .8 cmFaizan Bragg MD Work Phone: [phone]09-10-2025 09:28-0400 Body mass index (BMI) [Ratio]29.2 kg/a5XjlornFaizan Bragg MD Work Phone: [facility]09-10-2025 09:28-0400 Body xduzlf93.64 kgFaizan Bragg MD Work Phone: [facility]09-10-2025 09:28-0400 Diastolic blood mfqoqhlk60 mm[Hg]Faizan Bragg MD Work Phone: [phone] [place], [place] 2586509-10-2025 09:28-0400 Heart rate61 /Isabela Bragg MD Work Phone: [phone]09-10-2025 09:28-0400 Respiratory rate12 /Isabela Bragg MD Work Phone: [phone]09-10-2025 09:28-0400 SaO2% (BldA) [Mass fraction]97 %Faizan Bragg MD Work Phone: [phone]09-10-2025 09:28-0400 Systolic blood yydhytvz104 mm[Hg]Faizan Bragg MD Work Phone: [phone]08-21-2025 14:15-0400 Body cjbjuv832.9 cmChriststeffanie Gusman DPM Work Phone: [facility] CenterYazpuivvln64-88-6425 14:15-0400Body mass index (BMI) [Ratio]26.45 kg/h2Xoopvjwymis Clausach DPM Work Phone: [facility] CenterIbembskaje71-68-3434 14:15-0400Body vrolqw57.45 kgChtravis Gusman DPM Work Phone: [place] [address]Wweqjwkscx23-38-7016 14:15-0400Diastolic blood mm[Hg]Carol Gusman DPM Work Phone: [facility] CenterNdkrlmnakp95-90-5067 14:15-0400Heart rate63 /min Carol Gusman DPM Work Phone: [facility] CenterHccwgjjjln99-67-2593 14:15-0400Systolic blood qzktfebo271 mm[Hg]Carol Gusman DPM Work Phone: [facility] CenterEkvdtieauv27-49-3819 14:04-0400Body mass index (BMI) [Ratio]26.32 kg/m2Sreedhar Zayas MD Work Phone: [phone]vjpyk74-70-1857 14:04-0400Body xkgfmckituz62.01 [degF]Sreedhar Zayas MD Work Phone: [phone]jhjqj67-10-2982 14:04-0400Body vdaima64.99 kgSreedhar Zayas MD Work Phone: [phone]) [phone]disdd80-12-9088 15:33-0400Diastolic blood klotrpik70 mm[Hg]Carol Gusman DPM Work Phone: [facility] CenterYgkyrdjntn99-67-8678 15:33-0400Heart rate70 /min Carol Gusman DPM Work Phone: [facility] CenterPqvtqfdvsm38-65-4522 15:33-0400Systolic blood clstxerp379 mm[Hg]Carol Gusman DPM Work Phone: [facility] CenterOowyijvjsq46-41-6938 09:54-0400Body .8 cmFaizan Bragg MD Work Phone: [facility]06-12-2025 09:54-0400 Body mass index (BMI) [Ratio]28.2 kg/y5YihafjFaizan Bragg MD Work Phone: [facility]06-12-2025 09:54-0400 Body .13 kgFaizan Bragg MD Work Phone: [phone]06-12-2025 09:54-0400 Diastolic blood gfqroqnw56 mm[Hg]Faizan Bragg MD Work Phone: [phone]06-12-2025 09:54-0400 Heart rate53 /minFaizan Bragg MD Work Phone: [facility]06-12-2025 09:54-0400 Systolic blood spxrofuo006 mm[Hg]Faizan Bragg MD Work Phone: [facility]05-01-2025 14:05-0400 Body khojtd234.9 cmChristopher Bohach DPM Work Phone: [phone]-[facility] CenterPvmqdffrso78-25-7466 14:05-0400Body mass index (BMI) [Ratio]26.45 kg/s6Ighcfcemexb Bohach DPM Work Phone: [phone])537-[address] [place], [place] [address]Zkwmgmlvak50-57-9579 14:05-0400Body kkmyxn08.45 kgChristopher Bohach DPM Work Phone: [phone])[address]05-01-2025 14:05-0400Diastolic blood htfvoako18 mm[Hg]Christsteffanie Gusman DPM Work Phone: [phone])601-[address] [place], [place] [address]Cqbwsomgxy44-52-1125 14:05-0400Heart rate57 /min Mohsenophana Gusman DPM Work Phone: [phone] [place], [place] 2293105-01-2025 14:05-0400Respiratory rate18 /minChristop Bohach DPM Work Phone: [phone] [place], [place] [address]Rnjgnbeigr38-10-1324 14:05-0400Systolic blood mm[Hg]Carol Gusman DPM Work Phone: [phone]-[facility] CenterBhpwmkwrnb84-52-5366 10:50-0400Body wcygky011.9 Cariistophana Bohach DPM Work Phone: 1(395)3-[address] [place], [place] [address]Daojynxogl31-14-3583 10:50-0400Body mass index (BMI) [Ratio]26.45 kg/t9Ltxxavqlrim Bohach DPM Work Phone: [phone])770-[address] [place] [address]-17-2025 10:50-0400Body lihflr27.45 kgChristopher Bohach DPM Work Phone: [phone])238-[facility] CenterYsvkeajnew20-07-8650 10:50-0400Diastolic blood ekhspfzw26 mm[Hg]Carol Gusman DPM Work Phone: [facility] CenterEpjgbzqwlf99-85-8760 10:50-0400Heart rate77 /min Mohsensteffanie Naseem DPM Work Phone: [facility] CenterCycupzqdxp69-92-4645 10:50-0400Systolic blood zmocybyx803 mm[Hg]Mohsensteffanie Naesem DPM Work Phone: [facility] CenterWjklpdstsy60-58-9299 14:43-0400Body jokvyt188.8 [facility]03[facility]-20[facility] 14:43-0400Body mass index (BMI) [Ratio]27.7 kg/j4XetjcatshMiddletown Hospital03-24-2025 14:43-0400Body dpelzmqmpyo31.9 [degF][facility]03-24-2025 14:43-0400Body dcwmio08.77 kgM[facility]03-24-2025 14:43-0400Diastolic blood tlshouxo34 mm[Hg][facility]03-24-2025 14:43-0400 Heart rate84 /[facility]03-24-2025 14:43-6727BeN7% (BldA) [Mass fraction]98 %[facility]03-24-2025 14:43-0400 Systolic blood qmudpusa798 mm[Hg][facility]02-26-2025 11:20-0500Body pwtpbe459.8 cmM[facility]02-26-2025 11:20-0500Body mass index (BMI) [Ratio]29.2 kg/c0SkxltuhdeMiddletown Hospital02-26-2025 11:20-0500Body spbuvz39.53 kgM[facility] 05-26-2024 11:20-0500Diastolic blood ndpuwpuq24 mm[Hg][facility]02-26-2025 11:20-0500Heart rate61 /[facility] 05-26-2024 11:20-7206IvJ7% (BldA) [Mass fraction]97 %[facility]02-26-2025 11:20-0500Systolic blood dnqqwoom234 mm[Hg][facility]02-13-2025 11:11-0500Body craiyh668.9 cmChrnishsteffanie Gusman DPM Work Phone: 1([phone])268-[address] [place], [place] [address]Ydeptrnnsv95-83-5549 11:11-0500Body mass index (BMI) [Ratio]26.45 kg/s6Fmmertfnsqmtravis Gusman DPM Work Phone: [facility] CenterEdnfkybqzt52-07-8288 11:11-0500Body skesxs63.45 kgChtravis Gusman DPM Work Phone: 1(683)028-[address] [place], [place] [address]Gbqlwntchs16-57-4979 11:11-0500Diastolic blood jnevkvzu84 mm[Hg]Carol Gusman DPM Work Phone: 1(143)1-[address] [place], [place] [address]Ryqphjatat14-70-2686 11:11-0500Heart rate72 /min Carol Gusman DPM Work Phone: 1(888)203-[address] [place], [place] [address]Dydsdgblax59-39-9340 11:11-0500Systolic blood bntmukte769 mm[Hg]Mohsensteffanie Gusman DPM Work Phone: [phone])216-[address] [place], [place] [address]Veaamcskmg63-27-6056 09:00-0500Body .8 cmM[facility]02-07-2025 09:00-0500Body mass index (BMI) [Ratio]29.1 kg/j7MlfpezyccMiddletown Hospital02-07-2025 09:00-0500Body omkfgo05.07 [facility]02-07-2025 09:00-0500Diastolic blood ufcuazzw06 mm[Hg][facility]02-07-2025 09:00-0500 Heart rate73 /minM[facility]letown Hospital02-07-2025 09:00-0500Systolic blood nezkapvq681 mm[Hg][facility]01-31-2025 10:53-0500 Body fapnkn413.8 cmMiddletown Hospital01-31-2025 10:53-0500Body mass index (BMI) [Ratio]29 kg/n1GlbmhggklMiddletown Hospital01-31-2025 10:53-0500Body .85 kgMiddletown Hospital01-31-2025 10:53-0500Diastolic blood ebrkoolr96 mm[Hg][facility] 04-30-2024 10:53-0500Heart rate71 /[facility] 04-30-2024 10:53-0500Respiratory rate12 /[facility] 04-30-2024 10:53-0500Systolic blood mhcjcses112 mm[Hg][facility]12-17-2024 10:09-0500Body oafttt827.8 cmM[facility] 03-16-2024 10:09-0500Body mass index (BMI) [Ratio]29.5 kg/z3WdwgsyistMiddletown Hospital12-17-2024 10:09-0500Body abrrzcjrfpc03.4 [degF][facility]12-17-2024 10:09-0500Body .55 kgMiddletown Hospital12-17-2024 10:09-0500Diastolic blood mm[Hg][facility]12-17-2024 10:09-0500Heart rate84 /[facility]12-17-2024 10:09-2736WoM2% (BldA) [Mass fraction]96 %[facility]12-17-2024 10:09-0500Systolic blood fohxxpbc512 mm[Hg] [facility]12-11-2024 11:46-0500Body .9 cm Carol Gusman DPM Work Phone: [facility] CenterBgsjbdufdw11-45-7077 11:46-0500Body mass index (BMI) [Ratio]26.45 kg/o2Omxxklzfdup Bohach DPM Work Phone: [facility] CenterZurbjrkyhy28-00-1418 11:46-0500Body yzlgys83.45 kgChkoffitopher Devlinach DPM Work Phone: [facility] CenterWsrdyhkmiv48-79-8165 11:46-0500Diastolic blood riecbxwd55 mm[Hg]Carol Gusman DPM Work Phone: [facility] CenterKwcshaairr36-46-5332 11:46-0500Heart rate74 /min Carol Gusman DPM Work Phone: [facility] CenterCdgmmngnrc42-51-1652 11:46-0500Respiratory rate18 /minChristopher Devlinglo DPM Work Phone: [facility] CenterTeyxluaeqp84-58-8725 11:46-0500Systolic blood tpnazuvs31 mm[Hg]Mohsenbuzzana Devlinglo DPM Work Phone: [facility] CenterNkxsgjljag38-13-5611 13:35-0500Diastolic blood xkesyirs92 mm[Hg]Daniel Hair [facility]12-04-2024 13:35-0500Heart rate58 /minDaniel Hair [facility]12-04-2024 13:35-0500Mean blood mm[Hg]Daniel Hair [facility]12-04-2024 13:35-0500 Respiratory rate14 /minBrapatricia Hair [address] [place], [place] [address]12-04-2024 13:35-0500 Systolic blood xnzakpwe809 mm[Hg]Daniel Hair [facility]11-26-2024 13:33-0500Heart rate70 /minDaniel Hair [address] [place], [place] [address]11-26-2024 13:33-5659MoA5% (BldA) [Mass fraction]99 %Daniel Hair [facility]11-26-2024 13:33-0500 Diastolic blood gszgdcba66 mm[Hg]Daniel Hair [facility]11-26-2024 13:33-0500Mean blood sizguptr74 mm[Hg]Daniel Hair [facility]11-26-2024 13:33-0500 Systolic blood ozrmgmwx137 mm[Hg]Daniel Hair [address] [place], [place] [address]11-26-2024 13:32-0500 Respiratory rate16 /minBrapatricia Reginaldo [facility]11-26-2024 13:25-0500 Diastolic blood iduixebf16 mm[Hg]Daniel Hair [facility]11-26-2024 13:25-0500Heart rate57 /minBrapatricia Hair [facility]11-26-2024 13:25-0500 Respiratory rate16 /minBradfmando Reginaldo [address] [place], [place] [address]11-26-2024 13:25-0065KdU3% (BldA) [Mass fraction]98 %Daniel Hair [facility]11-26-2024 13:25-0500 Systolic blood cbpayrfk954 mm[Hg]Daniel Hair [facility]11-26-2024 12:35-0500Heart rate61 /minBrapatricia Hair [address] [place], [place] [address]11-26-2024 12:35-2352FgQ6% (BldA) [Mass fraction]99 %Daniel Hair [address] [place], [place] [address]11-26-2024 12:34-0500Body qcepyopmwcg78.34 [degF]Daniel Hair [address] [place], [place] [address]11-26-2024 12:32-0500 Diastolic blood tkvuvqax15 mm[Hg]Daniel Hair [facility]11-26-2024 12:32-0500Mean blood kmuzsbsk80 mm[Hg]Daniel Hair [facility]11-26-2024 12:32-0500 Systolic blood nedjxbho096 mm[Hg]Daniel Hair [facility]11-26-2024 12:28-0500 Respiratory rate14 /minBrapatricia Hair [facility]10-30-2024 11:43-0400Body mpcsdy330.07 cmM[facility]10-30-2024 11:43-0400Body mass index (BMI) [Ratio]28.4 kg/u4LhyziubziMiddletown Hospital10-30-2024 11:43-0400Body gboqboqscle61.1 [degF][facility]10-30-2024 11:43-0400Body ekqhyd63.17 kgMiddletown Hospital10-30-2024 11:43-0400Diastolic blood oyzreqqg43 mm[Hg][facility] 01-28-2024 11:43-0400Heart rate68 /minM[facility] 01-28-2024 11:43-4804VmF7% (BldA) [Mass fraction]94 %[facility]10-30-2024 11:43-0400Systolic blood qrrrifge120 mm[Hg][facility]10-24-2024 10:30-0400Diastolic blood dkccyuqo31 mm[Hg]Daniel Hair [facility]10-24-2024 10:30-0400Heart rate89 /minBrapatricia Hair [facility]10-24-2024 10:30-0400Mean blood gmhdtoqc01 mm[Hg]Daniel Hair [facility]10-24-2024 10:30-0400 Respiratory rate16 /minBrapatricia Hair [facility]10-24-2024 10:30-0400 Systolic blood pkqtnheo74 mm[Hg]Daniel Hair [facility]10-22-2024 10:22-0400Heart rate51 /minBrapatricia Hair [facility]10-22-2024 10:22-4528KqC7% (BldA) [Mass fraction]99 %Daniel Hair [facility]10-22-2024 10:22-0400 Diastolic blood mgsltlde97 mm[Hg]Daniel Hair [facility]10-22-2024 10:22-0400Mean blood pqulamff03 mm[Hg]Daniel Hair [facility]10-22-2024 10:22-0400 Systolic blood mm[Hg]Daniel Hair [facility]10-22-2024 10:22-0400 Respiratory rate16 /minBradford Reginaldo [facility]10-22-2024 10:13-0400 Diastolic blood mm[Hg]Daniel Hair [facility]10-22-2024 10:13-0400Heart rate51 /minBradford Reginaldo [facility]10-22-2024 10:13-0400 Respiratory rate16 /minBradfmando Reginaldo [facility]10-22-2024 10:13-4588BlK7% (BldA) [Mass fraction]99 %Daniel Hair [facility]10-22-2024 10:13-0400 Systolic blood rdmoylse056 mm[Hg]Daniel Hair [facility]10-22-2024 09:43-0400Heart rate54 /minBradford Reginaldo [facility]10-22-2024 09:43-7885OzI9% (BldA) [Mass fraction]98 %Daniel Reginaldo [facility]10-22-2024 09:42-0400 Diastolic blood zfnqpkne62 mm[Hg]Daniel Hair [facility]10-22-2024 09:42-0400Mean blood winrudkw64 mm[Hg]Daniel Hair [facility]10-22-2024 09:42-0400 Systolic blood jffglhzo602 mm[Hg]Daniel Hair [facility]10-22-2024 09:42-0400Body rlrjfsaxaaj76.7 [degF]Daniel Hair [facility]10-22-2024 09:41-0400 Respiratory rate16 /minBradfmando Reginaldo [facility]09-18-2024 09:52-0400 Diastolic blood sbaqqviw38 mm[Hg]Daniel Hair [facility]09-18-2024 09:52-0400Heart rate58 /minBrapatricia Reginaldo [facility]09-18-2024 09:52-0400Mean blood mm[Hg]Daniel Hair [facility]09-18-2024 09:52-0400 Respiratory rate20 /minBradfmando Reginaldo [facility]09-18-2024 09:52-0400 Systolic blood bidiftrz104 mm[Hg]Daniel Hair [facility]09-03-2024 10:13-0400Body bopgte399.9 Vasyl Gusman DPM Work Phone: [facility] CenterRhecjinmyp84-51-2435 10:13-0400Body mass index (BMI) [Ratio]26.45 kg/h7Dwlwxzqcagrtravis Gusman DPM Work Phone: noN[facility] NetworkKvqygcdoug38-27-4961 10:130400Body lqmlyv18.45 kgChtravis Gusman DPM Work Phone: [facility] CenterFiwwcnzkqy90-10-6942 10:13-0400Diastolic blood tujhapzo14 mm[Hg]Carol Gusman DPM Work Phone: [facility] CenterIcredurnmq65-73-1159 10:13-0400Heart rate62 /min Carol Gusman DPM Work Phone: [facility] CenterMzjjqcguhw68-55-4863 10:13-0400Systolic blood anysawxt86 mm[Hg]Carol Gusman DPM Work Phone: noN[facility] NetworkEnfktvddex20-52-2407 14:22-0400Heart rate64 /min Sanchez Reginaldo [facility]08-26-2024 14:22-7543BkF7% (BldA) [Mass fraction]99 %Daniel Hair [facility]08-26-2024 14:22-0400 Diastolic blood mm[Hg]Daniel Hair [facility]08-26-2024 14:22-0400Mean blood ozkbjvxf85 mm[Hg]Daniel Reginaldo [facility]08-26-2024 14:22-0400 Systolic blood dvlnwvki788 mm[Hg]Daniel Hair [facility]08-26-2024 14:22-0400 Respiratory rate16 /minBrapatricia Hair [facility]08-26-2024 14:05-0400 Diastolic blood uozbfrrg16 mm[Hg]Daniel Hair [facility]08-26-2024 14:05-0400Heart rate67 /minBrapatricia Hair [facility]08-26-2024 14:05-0400 Respiratory rate16 /minBrapatricia Hair [facility]08-26-2024 14:05-5562JqZ6% (BldA) [Mass fraction]98 %Daniel Hair [facility]08-26-2024 14:05-0400 Systolic blood ogdcasab446 mm[Hg]Daniel Reginaldo [facility]08-26-2024 12:41-0400Heart rate64 /minBrapatricia Reginaldo [facility]08-26-2024 12:41-8825FhX3% (BldA) [Mass fraction]98 %Daniel Reginaldo [facility]08-26-2024 12:40-0400 Respiratory rate14 /minBrapatricia Reginaldo [facility]08-26-2024 12:40-0400 Diastolic blood xczoduvf44 mm[Hg]Daniel Hair [facility]08-26-2024 12:40-0400Mean blood mtjxfryt72 mm[Hg]Daniel Hair [facility]08-26-2024 12:40-0400 Systolic blood aqrvsuhn467 mm[Hg]Daniel Reginaldo [facility]08-26-2024 12:40-0400Body ahzmcydccse51.88 [degF]Daniel Reginaldo [facility]08-21-2024 10:45-0400Body jzorat505.07 cmM[facility]08-21-2024 10:45-0400Body mass index (BMI) [Ratio]29.1 kg/j3XkoftfgvwMiddletown Hospital08-21-2024 10:45-0400Body ilcpfo82.44 kgMiddletown Hospital08-21-2024 10:45-0400Diastolic blood pmuswbfo04 mm[Hg][facility] 11-19-2023 10:45-0400Heart rate80 /minM[facility]letown Hospital 11-19-2023 10:45-0400Systolic blood eauwxaam052 mm[Hg][facility]07-30-2024 14:02-0400Heart rate71 /minDaniel Hair [facility]07-30-2024 14:02-6917PuC0% (BldA) [Mass fraction]99 %Daniel Hair [facility]07-30-2024 14:02-0400 Diastolic blood dvulabqu46 mm[Hg]Daniel Hair [facility]07-30-2024 14:02-0400Mean blood ncrojszb54 mm[Hg]Daniel Hair [facility]07-30-2024 14:02-0400 Systolic blood htrsjikw710 mm[Hg]Daniel Hair [facility]07-30-2024 14:02-0400 Respiratory rate16 /minDaniel Reginaldo [facility]07-30-2024 13:48-0400 Diastolic blood ubgkxvlq32 mm[Hg]Daniel Hair [facility]07-30-2024 13:48-0400Heart rate59 /minDaniel Reginaldo [facility]07-30-2024 13:48-8485GcB0% (BldA) [Mass fraction]98 %Daniel Hair [facility]07-30-2024 13:48-0400 Systolic blood gjbshbov244 mm[Hg]Daniel Hair [facility]07-30-2024 12:54-0400Heart rate64 /minDaniel Hair [facility]07-30-2024 12:54-6699CqV6% (BldA) [Mass fraction]98 %Sanchez Reginaldo [facility]07-30-2024 12:54-0400 Diastolic blood bscpqtyi82 mm[Hg]Daniel Hair [address] [place], [place] 0808507-30-2024 12:54-0400Mean blood gajjxaab76 mm[Hg]Daniel Hair [facility]07-30-2024 12:54-0400 Systolic blood afervddu109 mm[Hg]Daniel Hair [facility]07-30-2024 12:53-0400 Respiratory rate14 /minBrapatricia Hair [facility]07-30-2024 12:53-0400Body hssxwxhhmfy99.06 [degF]Daniel Hair [facility]06-19-2024 11:10-0400 Diastolic blood xydjgtet84 mm[Hg]Heavenly Mahoney [facility]06-19-2024 11:10-0400Heart rate60 /minAmanda Mahoney [facility]06-19-2024 11:10-0400Mean blood mm[Hg]Heavenly Mahoney [facility]06-19-2024 11:10-0400 Respiratory rate14 /minAmanda Mahoney [facility]06-19-2024 11:10-0400 Systolic blood clidqksm277 mm[Hg]Heavenly Mahoney [facility]06-10-2024 14:29-0400Heart rate55 /minBradfmando Hair [facility]06-10-2024 14:29-2946VuK9% (BldA) [Mass fraction]100 %Daniel Hair [facility]06-10-2024 14:29-0400 Respiratory rate16 /minBrapatricia Hair [facility]06-10-2024 14:28-0400 Diastolic blood vaiadyin26 mm[Hg]Daniel Hair [facility]06-10-2024 14:28-0400Mean blood habchjet51 mm[Hg]Daniel Hair [facility]06-10-2024 14:28-0400 Systolic blood kbwkirgu457 mm[Hg]Daniel Hair [facility]06-10-2024 14:12-0400 Diastolic blood lbjetjkf17 mm[Hg]Daniel Hair [facility]06-10-2024 14:12-0400Heart rate74 /minBradford Reginaldo [facility]06-10-2024 14:12-0400 Respiratory rate14 /minBradford Reginaldo [facility]06-10-2024 14:12-7903NaH1% (BldA) [Mass fraction]97 %Daniel Hair [facility]06-10-2024 14:12-0400 Systolic blood lbtaebug995 mm[Hg]Daniel Hair [facility]06-10-2024 13:30-0400Heart rate76 /minBradford Reginaldo [facility]06-10-2024 13:30-4042ZwX7% (BldA) [Mass fraction]98 %Sanchez Reginaldo [facility]06-10-2024 13:30-0400Body fwtbrkpxvef39.88 [degF]Daniel Hair [facility]06-10-2024 13:29-0400 Diastolic blood zbyrqfdi31 mm[Hg]Daniel Hair [facility]06-10-2024 13:29-0400Mean blood vikacntc42 mm[Hg]Daniel Hair [facility]06-10-2024 13:29-0400 Systolic blood asxtrdhn602 mm[Hg]Daniel Hair [facility]06-10-2024 13:24-0400 Respiratory rate14 /minBrapatricia Hair [facility]05-13-2024 08:13-0400 Diastolic blood ptubytmb64 mm[Hg]Heavenly Mahoney [address] [place], [place] 0808505-13-2024 08:13-0400Heart rate68 /minAmanda Mahoney [facility]05-13-2024 08:13-0400Mean blood jvfigtfa55 mm[Hg]Heavenly Mahoney [address] [place], [place] 0808505-13-2024 08:13-0400 Respiratory rate14 /minAmanda Mahoney [facility]05-13-2024 08:13-0400 Systolic blood yglcjbbp885 mm[Hg]Heavenly Mahoney [address] [place], [place] 0808505-06-2024 09:21-0400Heart rate53 /minBrapatricia Reginaldo [address] [place], [place] 0808505-06-2024 09:21-8152SqN4% (BldA) [Mass fraction]98 %Daniel Hair [facility]05-06-2024 09:21-0400 Diastolic blood lkkxaenj03 mm[Hg]Daniel Hair [facility]05-06-2024 09:21-0400Mean blood enqsrfgw654 mm[Hg]Daniel Hair [facility]05-06-2024 09:21-0400 Systolic blood paxmidqn509 mm[Hg]Daniel Hair [facility]05-06-2024 09:21-0400 Respiratory rate16 /minBrapatricia Hair [address]05-06-2024 09:07-0400 Diastolic blood eddcqwku78 mm[Hg]Daniel Hair [address] [place], [place] 0808505-06-2024 09:07-0400Heart rate69 /minBrapatricia Hair [address] [place], [place] 0808505-06-2024 09:07-0544YfO5% (BldA) [Mass fraction]98 %Daniel Hair [address] [place], [place] 0808505-06-2024 09:07-0400 Systolic blood cqtrezri966 mm[Hg]Daniel Hair [address]05-06-2024 08:12-0400Heart rate56 /minBrapatricia Hair [address] [place], [place] 0808505-06-2024 08:12-7497MsD4% (BldA) [Mass fraction]100 %Daniel Hair [address] [place], [place] 0808505-06-2024 08:12-0400Body lbhrijlgygb37.34 [degF]Daniel Hair [address]05-06-2024 08:11-0400 Diastolic blood uzqnalcp53 mm[Hg]Daniel Hair [address] [place], [place] 0808505-06-2024 08:11-0400Mean blood dojfibgn76 mm[Hg]Daniel Hair [address] [place], [place] 0808505-06-2024 08:11-0400 Systolic blood ajmkugbs151 mm[Hg]Daniel aHir [address] [place], [place] 0808505-06-2024 08:11-0400 Respiratory rate18 /minBrapatricia Hair [address] [place], [place] 4535604-04-2024 14:08-0400 Diastolic blood mm[Hg]Daniel Hair [address] [place], [place] 0808504-04-2024 14:08-0400Heart rate53 /minBradford Hair [facility]04-04-2024 14:08-0400Mean blood hqjyysen92 mm[Hg]Daniel Hair [facility]04-04-2024 14:08-0400 Respiratory rate16 /minDaniel Hair [facility]04-04-2024 14:08-0400 Systolic blood oggqichf603 mm[Hg]Daniel Hair [facility]01-09-2024 14:00-0500Body cigrdz067.07 cmFaizan Bragg Other [employer] Other 01-09-2024 14:00-0500Body mass index (BMI) [Ratio] 29.14 kg/q2PamgtcFaizan Bragg Other [employer] Other 01-09-2024 14:00-0500Body fquoeh55.44 kgFaizan Bragg Other [employer] Other 01-09-2024 14:00-0500Diastolic blood zjnavggp34 mm[Hg] Faizan Bragg Other [employer] Other 01-09-2024 14:00-0500Systolic blood lixfscmd789 mm[Hg] Faizan Bragg Other [employer] Other 04-11-2023 11:45-0400Body bifymo852.07 cmFaizan Bragg Other [employer] Other 04-11-2023 11:45-0400Body mass index (BMI) [Ratio] 28.15 kg/a3JwczjtFaizan Bragg Other [employer] Other 04-11-2023 11:45-0400Body qjkxffibtwa968.2 [degF] Faizan Bragg Other [employer] Other 04-11-2023 11:45-0400Body .27 kgMignongalo Bragg Other [employer] Other 04-11-2023 11:45-0400Diastolic blood nmodbtrg14 mm[Hg] Faizan Bragg Other [employer] Other 04-11-2023 11:45-3826YyH9% (BldA) [Mass fraction]96 % Faizan Bragg Other [employer] Other 04-11-2023 11:45-0400Systolic blood ijdiijks305 mm[Hg] Faizan Bragg Other [employer] Other 02-22-2023 09:30-0500Body lywoyq609.07 cmFaizan rBagg Other [employer] Other 02-22-2023 09:30-0500Body mass index (BMI) [Ratio] 28.15 kg/u7VaxrjpFaizan Bragg Other [employer] Other 02-22-2023 09:30-0500Body yrqimz58.27 kgFaizan Bragg Other [employer] Other 02-22-2023 09:30-0500Diastolic blood sqgknfgo29 mm[Hg] Faizan Bragg Other [employer] Other 02-22-2023 09:30-6485UeA6% (BldA) [Mass fraction]97 % Faizan Bragg Other [employer] Other 02-22-2023 09:30-0500Systolic blood mm[Hg] Faizan Bragg Other [facility] Other 07-26-2022 13:35-0400Diastolic blood jaucwwfr80 mm[Hg] MD Faizan Bragg Work Phone: [facility]07-26-2022 13:35-0400 Heart rate55 /minMD Faizan Bragg Work Phone: [facility]07-26-2022 13:35-0400 Respiratory rate18 /minMD Faizan Bragg Work Phone: [facility]07-26-2022 13:35-0400 SaO2% (BldA) [Mass fraction]98 %MD Faizan Bragg Work Phone: [facility]07-26-2022 13:35-0400 Systolic blood ahclcuag081 mm[Hg]MD Faizan Bragg Work Phone: [facility]07-26-2022 11:52-0400 Body jpjvuk287.96 cmMD Faizan Bragg Work Phone: [facility]07-26-2022 11:52-0400 Body gdxxye68.45 kgMD Faizan Bragg Work Phone: [facility]07-07-2022 14:30-0400 Body heightCameroradha Geraldinenaheed Other [facility] Other 07-07-2022 14:30-0400Body mass index (BMI) [Ratio] 25.68 kg/f0Vkmztcq Jose Luis Other [facility] Other 07-07-2022 14:30-0400Body butdid78.72 kgCameroradha GallardoCrowdSYNCy Other [facility] Other 07-07-2022 14:30-0400Diastolic blood mm[Hg] Mik Amaya Other [facility] Other 07-07-2022 14:30-0400Systolic blood gzaasckj775 mm[Hg] [facility] 04-04-2022 10:53-0400Body ruycsb937 cmSkaterine Manzanares MD Work Phone: [facility]04-04-2022 10:53-0400Body temperature 97.2 [degF]Ketan Manzanares MD Work Phone: [facility]04-04-2022 10:53-0400Body fptoqv29.71 kgSitaylor Manzanares MD Work Phone: [facility]04-04-2022 10:53-0400Diastolic blood upljazyp97 mm[Hg]Ketan Manzanares MD Work Phone: [facility]04-04-2022 10:53-0400Heart rate65 /min Ketan Manzanares MD Work Phone: [facility]04-04-2022 10:53-0400Respiratory rate 16 /minSkaterine Manzanares MD Work Phone: [facility]04-04-2022 10:53-7244LxA6% (BldA) [Mass fraction]99 %Ketan Manzanares MD Work Phone: [facility]04-04-2022 10:53-0400Systolic blood pwkrvboy783 mm[Hg]Ketan Manzanares MD Work Phone: [facility]07-23-2021 16:11-0400Body zncakw380.4 cmPamela Montoya MD Work Phone: [facility] Work Phone: 1(448) 514-686307-23-2021 16:11-0400Body mass index (BMI) [Ratio] 28.76 kg/a3KxdgqPamela Montoya MD Work Phone: [employer] Work Phone: [phone] 16:11-0400Body nonfzamfwvg61.71 [degF]Pamela Montoya MD Work Phone: [phone] Work Phone: 1(852) [phone] 16:11-0400Body .88 kgPamela Montoya MD Work Phone: [facility] [employer] Work Phone: 1(127) [phone] 16:11-0400Diastolic blood muhbkcuo96 mm[Hg] Pamela Montoya MD Work Phone: [phone] Work Phone: 1(279) [phone] 16:11-0400Heart rate99 /Don Montoya MD Work Phone: [facility] [employer] Work Phone: 1(449) 295-460907-23-2021 16:11-0400Respiratory rate20 /Don Montoya MD Work Phone: [facility] [employer] Work Phone: 1(148) [phone] 16:11-9673HkY0% (BldA) [Mass fraction]96 % Pamela Montoya MD Work Phone: [facility] [employer] Work Phone: 1([phone]) [phone] 16:11-0400Systolic blood nfambaqq644 mm[Hg] Pamela Montoya MD Work Phone: [phone] Work Phone: 1([phone]) 372-265406-20-2020 17:43-0400Body Zlvzucdolqr06.4 [degF][place] LumetricsSelect [facility], [facility], [id number] 17:40-0400BP Upgzaflsm35 mm[Hg][place] RonThe [facility], AS65-65-1346 17:40-0400BP Ytpwarir363 mm[Hg][facility], ZQ28-25-7080 17:40-0400Pulse (Heart Rate)89 /minGurdeep [facility], WR31-03-0684 17:40-0400Pulse Vlirjypv74 %Gurdeep [facility], MN78-00-0420 17:40-0400Respiratory Rate18 /minTyler [facility], [place] Encounters Encounter DateEncounter TypeCare ProviderFacilityStart: 01-27-2025 End: 84-69-0104Pvepun flowsGregg Gusman DPM Work Phone: noms Manny PodiatryStart: 01-27-2025 End: 76-30-7821Devwnn Brittney Gusman DPM Work Phone: noms Manny PodiatryStart: 01-27-2025 End: 63-53-3055prqjskkqlxDGMELeila Paez [facility] HospitalStart: 01-27-2025 End: 39-12-9892Xiltxewsbo hospital visit by physicianArturo Palma MD Work Phone: 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); Varicose veins of bilateral lower extremities with painStart: 01-27-2025 End: 89-64-7341Cecwpz outpatient visit 15 minutesChtravis HOUSTONM Work Phone: noms Manny PodiatryComment on above:Idiopathic progressive polyneuropathy (Primary Dx); Onychomycosis; Pain of toe of left foot; Hammer toe of left foot; Ulcer of left foot, limited to breakdown of skin (HCC)Start: 01-27-2025 End: 41-22-3563udwaokimmgYUUMERYCUBX J BOHACHNot AvailableStart: 01-19-2025 End: 95-67-6346sxetfxuptvBUXUFF [facility] HospitalStart: 01-19-2025 End: 53-70-6485Earnhzrtoz hospital visit by physicianKaren Laboratory Schedule MWHZ LaboratoryComment on above:Shortness of breath; Edema of right lower leg; Edema of left footStart: 01-17-2025 End: 16-82-6278rfdqgtgegnGGNBCB BRAUNOhiohealth [facility]ady [facility] Hospital HospitalStart: 01-17-2025 End: 62-99-1907Yvekdwasji hospital visit by physician[address] Non-Invasive CardiologyComment on above:Chronic atrial fibrillation (HCC)Start: 01-06-2025 End: 25-56-8693wdsewvttwcQerpuveu A. JonesFacility:FTMCStart: 12-22-2024 End: 10-01-0582kzguddkbxwArfqnq E Braun MD Work Phone: [facility] Work Phone: Start: 12-22-2024 End: 75-07-5993Frwvnyf encounter Anne Marmolejo APRN [facility] Work Phone: Start: 12-08-2024 End: 35-80-7712fuphmbodkfUtfvdw E Braun MD Work Phone: [facility] Work Phone: Start: 12-08-2024 End: 74-05-5971Khjmtxp encounter procedureFaizan Bragg MD-[facility] Work Phone: Start: 12-03-2024 End: 64-80-2310idfntbsgqnPmkwlwee A. JonesFacility:FTMCStart: 11-18-2024 End: 32-56-8014Rewqsw outpatient visit 15 minutesChtravis Gusman DPSteffany Work Phone: noParadise Valley Hospital PodiatryComment on above:Corns and callosities (Primary Dx); Idiopathic progressive polyneuropathy; Hammer toe of left foot; Hallux valgus of left foot; Pain of toe of left footStart: 11-18-2024 End: 55-68-6371tuaffvmoupGOSJIYRFMWV J BOHACHNot AvailableStart: 11-18-2024 End: 00-91-6330Ydxngu flowsheetChtravis Gusman DPM Work Phone: noms Erin PodiatryStart: 11-18-2024 End: 38-13-6245Xydjdv flowsheetChristopher J Bohach DPM Work Phone: noms Manny PodiatryStart: 11-10-2024 End: 17-63-4200Kuolcj flowsheetAlison Brian Marks PA Work Phone: noms [facility] DermatologyStart: 11-10-2024 End: 77-29-9145Ekcgwx flowsheetAlison L Brooke PA Work Phone: noms [facility] DermatologyStart: 11-10-2024 End: 10-32-2889Lwhldkj encounter procedureAlison Brian Marks PA Work Phone: noms [facility] DermatologyComment on above:Actinic keratosis (Primary Dx); Inflamed seborrheic keratosisStart: 11-10-2024 End: 93-76-8364hhlrplblcdJOFYIU Brian MARKSNot AvailableStart: 10-05-2024 End: 07-70-3858Faclakkb SupportMechelle Ferguson Work Phone: [facility] AudiologyComment on above: Sensorineural hearing loss, bilateral (Primary Dx)Start: 10-05-2024 End: 11-80-8697Tnrplm outpatient new 30 minutesEric Joaquin Zayas MD Work Phone: [facility] Ear, Nose and Throat PhysiciansComment on above:Sensorineural hearing loss, bilateral (Primary Dx); Impaired auditory discrimination, bilateralStart: 09-27-2024 End: 56-45-5173Kmmteo flowsheetChristopher J Bohglo DPM Work Phone: noms WWW PODIATRYStart: 09-27-2024 End: 91-39-4304Hqmmby flowsheetChristopher J Bohach DPM Work Phone: noms WWW PODIATRYStart: 09-27-2024 End: 33-01-2229Oxsifgx encounter procedureChristopher J Bohach DPM Work Phone: noms WWW PODIATRYComment on above:Idiopathic progressive polyneuropathy (Primary Dx); OnychomycosisStart: 09-27-2024 End: 31-62-2804tsqzoydzxxGDZZRDSOHJC J BOHACHNot AvailableStart: 09-09-2024 End: 11-07-1641Cdzojie encounter procedureFaizan Bragg [facility] Work Phone: Start: 08-06-2024 End: 54-80-9733ttdvrjkdqsIJRTOA [facility] HospitalStart: 08-06-2024 End: 57-51-1449Quxemjuxpx hospital visit by physicianFaizan Bragg MD Work Phone: [facility] LABComment on above:Elevated PSA Start: 07-29-2024 End: 09-20-9936Uejmzg outpatient visit 15 minutesChristopher Fortino Gusman DPM Work Phone: noms WWW PODIATRYComment on above:Ulcer of right heel and midfoot, limited to breakdown of skin (CMS/HCC) (Primary Dx); Abrasion of right heel with infectionStart: 07-29-2024 End: 53-11-9465opdtrrxfslMWKPJHZSOKI J BOHACHNot AvailableStart: 07-29-2024 End: 50-26-7846Kbzbom flowsheetChristopher Fortino Devlinach DPM Work Phone: noms WWW PODIATRYStart: 07-29-2024 End: 69-55-8370Kqeaey flowsheetChristopher Freitas Bohach DPM Work Phone: noms WWW PODIATRYStart: 07-15-2024 End: 73-70-8110Epyziy flowsheetChristopher J Bohach DPM Work Phone: noms WWW PODIATRYStart: 07-15-2024 End: 84-71-2389Yiueiq flowsheetChristopher Freitas Bohach DPM Work Phone: noms WWW PODIATRYStart: 07-15-2024 End: 54-50-3592Oaxjiu outpatient visit 15 minutesChristopher Fortino Gusman DPM Work Phone: noms [employer] PODIATRYComment on above:Ulcer of right heel and midfoot, limited to breakdown of skin (CMS/HCC) (Primary Dx); Idiopathic progressive polyneuropathy; Onychomycosis; Abrasion of right heel with infectionStart: 07-15-2024 End: 97-57-2648cipdlxjcvhPCPDCXXRWKI J BOHACHNot AvailableStart: 06-23-2024 End: 20-12-2730qzltxhizmsDWUGJH BRAUNTogus VA Medical Centertart: 06-23-2024 End: 75-27-4098Yyppqbfibo hospital visit by physicianMwh Additional X[facility] At [facility] RadiologyComment on above:Chest pain, unspecified type; Shortness of breath; Atrial flutter, unspecified type (HCC); Encounter for lipid screening for cardiovascular disease; Aortic valve stenosis, etiology of cardiac valve disease unspecified; Vitamin D deficiency disease; Other fatigueStart: 06-21-2024 End: 22-43-9352iffrlwleezNatetsjevMercy Health St. [facility] Work Phone: Start: 06-21-2024 End: 00-27-7822Wyqvkin encounter procedureUnc Health [facility] Work Phone: Start: 06-14-2024 End: 29-45-9881Fuypbv flowsheetAlison Brian Marks PA Work Phone: noms TSR DERMStart: 06-14-2024 End: 45-73-8679Wojivb flowsheetAlison L Brooke PA Work Phone: noms TSR DERMStart: 06-14-2024 End: 76-85-9469Hkzhjw outpatient visit 15 minutesAlison Brian Marks PA Work Phone: noms TSR DERMComment on above:Other specified dermatitis (Primary Dx); Actinic keratosisStart: 06-14-2024 End: 99-89-6981azkvkhziygVEERXI Brian Garcia AvailableStart: 05-26-2024 End: 22-17-4104nmblhsbwhcEqygjnqsmMercy Health St. [facility] Hospital Work Phone: Start: 05-26-2024 End: 54-31-5789Xjkjbex encounter procedureYosef Physician GroupCleveland Clinic [facility] Work Phone: Start: 05-13-2024 End: 69-09-0926Xvzanb flowsGregg Gusman DPM Work Phone: noms WWW PODIATRYStart: 05-13-2024 End: 58-56-1476Qleigk flowsheetChtravis Gusman DPM Work Phone: noms WWW PODIATRYStart: 05-13-2024 End: 51-58-9422Fceaohv encounter procedureChtravis Gusman DPM Work Phone: noms WWW PODIATRYComment on above:Idiopathic progressive polyneuropathy (Primary Dx); OnychomycosisStart: 05-13-2024 End: 89-78-6914sllsrqohzjTEWOXSTVVYQ J BOHACHNot AvailableStart: 05-07-2024 End: 10-37-3814ayxrxgghxmAnpmwfmpjCleveland Clinic [facility] Work Phone: Start: 05-07-2024 End: 88-52-3828Yxlhxtc encounter procedureYosef Physician GroupCleveland Clinic [facility] Work Phone: Start: 05-04-2024 End: 89-45-2715dlybyanbwsCARGVEMercy Health Clermont Hospitaltart: 05-04-2024 End: 65-40-1569Novmoyzrbc hospital [facility] by physician[facility] Therapist 4 M[facility]Z CARDIAC REHABComment on above:ArrivedStart: 05-03-2024 End: 00-13-9633huddsvwoepSFJJGLMercy Health Clermont Hospitaltart: 05-03-2024 End: 89-05-8988Ptmotuybop hospital visit by physicianUnited [facility] Card Rehab Therapist 4 M[facility]Z CARDIAC REHABComment on above:ArrivedStart: 11-88-3007muidcirhrfTAYBTSMercy Health Clermont Hospitaltart: 04-30-2024 End: 36-67-9702hwvvribverWjpuoeejwCleveland Clinic [facility] Hospital Work Phone: Start: 04-30-2024 End: 96-68-2714Earohxy encounter procedureUnc Health Wayne Physician GroupCleveland Clinic [facility] Work Phone: Start: 04-29-2024 End: 44-85-9155xzramfihnbWZXXZX BRAUNMercy Erin HospitalStart: 04-29-2024 End: 85-30-8777Fsldtjsxsj hospital visit by physicianUnited [facility] Card Rehab Therapist 4 M[facility]Z CARDIAC REHABComment on above:ArrivedShortness of breathStart: 04-27-2024 End: 94-69-3096adkahqexxrKFCOZA [facility] HospitalStart: 04-27-2024 End: 48-98-2135Xwiprvrwvv hospital visit by physicianUnited [facility] Card Rehab Therapist 4 MWHZ CARDIAC REHABComment on above:ArrivedStart: 04-26-2024 End: 17-95-8650xechgygxrqJPOTRK [facility] Valleyroger Erin HospitalStart: 04-26-2024 End: 24-58-2781Kgxbshnofj hospital visit by Bernardo Bragg MD Work Phone: mWHZ LaboratoryComment on above:Atrial flutter, unspecified type (HCC); Vitamin D deficiency; Encounter for lipid screening for cardiovascular disease; Aortic valve stenosis, etiology of cardiac valve disease unspecified; Fatigue, unspecified typeStart: 04-26-2024 End: 17-52-4584orkympzelhJGENSX BRAUNMercy Erin HospitalStart: 04-26-2024 End: 05-63-5761Dnrqxpujax hospital visit by physicianUnited [facility] Card Rehab Therapist 4 MWHZ CARDIAC REHABComment on above:ArrivedStart: 04-22-2024 End: 28-11-0473nbyjmkbpvzWFDFFR BRAUNMercy Erin HospitalStart: 04-22-2024 End: 53-49-6969Agtmdtbwzf hospital visit by physicianUnited [facility] Card Rehab Therapist 4 MWHZ CARDIAC REHABComment on above:ArrivedStart: 04-20-2024 End: 87-71-3223ixergicxxfPNWUEZ BRAUNMercy Erin HospitalStart: 04-20-2024 End: 80-83-4294Xjodotmrel hospital visit by physicianUnited [facility] Card Rehab Therapist 4 MWHZ CARDIAC REHABComment on above:ArrivedStart: 04-19-2024 End: 22-80-1276jkfsmbmhnkJVCFXE BRAUNDelaware County Hospitalroger Erin HospitalStart: 04-19-2024 End: 27-16-3523Xoasnstslv hospital visit by physicianUnited [facility] Card Rehab Therapist 4 MWHZ CARDIAC REHABComment on above:ArrivedStart: 04-15-2024 End: 80-57-3990mbpcpxbbvtURTXPF BRAUNMercy Willard HospitalStart: 04-15-2024 End: 32-20-2559Ynrikwseqc hospital visit by physician[facility] Card Rehab Therapist 4 M[facility]Z CARDIAC REHABComment on above:ArrivedStart: 04-13-2024 End: 02-72-6188blvmegloeiQDWELB BRAUNMercy Willard HospitalStart: 04-13-2024 End: 43-69-1331Bnkrqlnqbb hospital visit by physicianUnited [facility] Card Re[facility] Therapist 4 M[facility]Z CARDIAC REHABComment on above:ArrivedStart: 04-12-2024 End: 32-13-4399dwtivsunmpJUPHHY [facility] HospitalStart: 04-12-2024 End: 65-85-6517Rqaiofdmmv hospital visit by physician[facility] Card Rehab Therapist 4 MWHZ CARDIAC REHABComment on above:ArrivedStart: 04-08-2024 End: 01-51-0811smxbxaqhjxYYAPNQ BRAUNMercy Willard HospitalStart: 04-08-2024 End: 71-41-4634Onuwsqzjjy hospital visit by physician[facility] Card Rehab Therapist 4 MWHZ CARDIAC REHABComment on above:ArrivedStart: 04-06-2024 End: 06-38-8264sxbowapdvhSVKEMX BRAUNMercy Willard HospitalStart: 04-06-2024 End: 35-24-2908Mscqymvicg hospital visit by physicianUnited [facility] Card Rehab Therapist 4 MWHZ CARDIAC REHABComment on above:ArrivedStart: 04-05-2024 End: 33-94-2342pszssqzilwUQGOZG BRAUNMercy Willard HospitalStart: 04-05-2024 End: 38-44-7587Ehzgiswomg hospital visit by physicianwh Card Rehab Therapist 4 MWHZ CARDIAC REHABComment on above:ArrivedStart: 04-01-2024 End: 20-06-8133coyelfvkzqRVZIUXCommunity Hospital [facility] HospitalStart: 04-01-2024 End: 57-36-3404Jwvrpbzepf hospital visit by physicianUnited [facility] Card Rehab Therapist 4 M[facility]Z CARDIAC REHABComment on above:ArrivedStart: 90-80-3766vzvlksctnhCKFULISt. [facility] Rehabilitation Hospital/[facility] HospitalStart: 03-30-2024 End: 91-10-6482vpapuhewueEMEFJYSt. John Rehabilitation Hospital/[facility] HospitalStart: 03-30-2024 End: 10-27-4006Bbqwinypky hospital visit by physicianUnited [facility] Card Rehab Therapist 4 M[facility]Z CARDIAC REHABComment on above:ArrivedStart: 03-29-2024 End: 11-95-0960czixwnrkzkAXZLCMMercy Health Clermont Hospitaltart: 03-29-2024 End: 39-84-4897Larlxxissm hospital visit by physicianUnited [facility] Card Rehab Therapist 4 M[facility]Z CARDIAC REHABComment on above:ArrivedStart: 03-25-2024 End: 83-96-6861sfsnpnmemcFLABWGMercy Health Clermont Hospitaltart: 03-25-2024 End: 86-90-3918Bbeoffodpx hospital visit by physicianUnited [facility] Card Rehab Therapist 3 M[facility]Z CARDIAC REHABComment on above:ArrivedStart: 03-23-2024 End: 25-29-0863jykjbbrmiqWNASWHSt. John Rehabilitation Hospital/[facility] HospitalStart: 03-23-2024 End: 00-28-4117Bsoybrwash hospital visit by physicianUnited [facility] Card Rehab Therapist 4 M[facility]Z CARDIAC REHABComment on above:ArrivedStart: 03-22-2024 End: 66-56-1466scolycwtxlXXWGHYClinton Memorial Hospitaltart: 03-22-2024 End: 12-89-6860Akuoyqsyub hospital visit by physicianUnited [facility] Card Rehab Therapist 4 M[facility]Z CARDIAC REHABComment on above:ArrivedStart: 03-16-2024 End: 65-02-1396Khjangy encounter procedureFirelands Physician Group-[facility] Work Phone: Start: 03-14-2024 End: 63-30-2108Zytlbsurp department patient visitArkansas State Psychiatric Hospital HospitalStart: 03-11-2024 End: 85-31-5186rothmtbgyfRZLSPTMercy Health Clermont Hospitaltart: 03-11-2024 End: 70-88-6266Dmhbqnvhxz hospital visit by physicianUnited [facility] Card Rehab Therapist 4 M[facility]Z CARDIAC REHABComment on above:ArrivedStart: 03-10-2024 End: 14-87-1755Miwenf flowsheetChristopher Fortino Gusman DPM Work Phone: noms WWW PODIATRYStart: 03-10-2024 End: 74-70-2755Rxvvnl flowsheetChristopher Fortino Gusman DPM Work Phone: noms WWW PODIATRYStart: 03-10-2024 End: 83-99-9146Bfwjinj encounter procedureChrisjarrod Gusman DPM Work Phone: noms WWW PODIATRYComment on above:Idiopathic progressive polyneuropathy (Primary Dx); OnychomycosisStart: 03-10-2024 End: 56-81-9457lhxadnxzksNEVSSQKUOUP J BOHACHNot AvailableStart: 03-09-2024 End: 26-03-9209gkijhvzdwhKBUTDNMercy Health Clermont Hospitaltart: 03-09-2024 End: 97-01-0546Lvxlyjuwfn hospital visit by physicianUnited [facility] Card Rehab Therapist 4 M[facility]Z CARDIAC REHABComment on above:ArrivedStart: 03-08-2024 End: 72-83-9683Zatfkw flowsheetAlison Brian RIOS Work Phone: noMS TSR DERMStart: 03-08-2024 End: 33-30-9948Attiug flowsheetAlison L Brooke RIOS Work Phone: noms TSR DERMStart: 03-08-2024 End: 69-34-7421vwzhypgviaVGNOHX Brian Garcia AvailableStart: 03-08-2024 End: 05-47-1800Fugsid outpatient visit 15 minutesNatalie RIOS Work Phone: NOMP TSR DERMComment on above:Other specified dermatitis (Primary Dx); History of basal cell carcinoma; Personal history of squamous cell carcinoma of skin; Seborrheic keratosis; Actinic keratosis; Neoplasm of unspecified behavior of bone, soft tissue, and skinStart: 03-08-2024 End: 45-08-3723vogliowltgDXUBXHSt. John Rehabilitation Hospital/[facility] HospitalStart: 03-08-2024 End: 70-06-3407Epymkjrcxe hospital visit by physicianUnited [facility] Card Rehab Therapist 4 M[facility]Z CARDIAC REHABComment on above:ArrivedStart: 03-04-2024 End: 14-17-6493hrfzdgnxymTAHEZLMercy Health Clermont Hospitaltart: 03-04-2024 End: 10-58-9860Gkkajjnaue hospital visit by physicianUnited [facility] Card Rehab Therapist 4 M[facility]Z CARDIAC REHABComment on above:ArrivedStart: 03-03-2024 End: 06-29-4752yhirolneupIkjtmpml A. JonesFacility:FTMCStart: 03-03-2024 End: 07-05-8290Dgsekxt encounter procedureDaniel Hair [facility] Start: 03-02-2024 End: 67-40-6079xcfolbvicsJZHYKQ [facility] Administrationtart: 03-02-2024 End: 50-10-3078Hagbmwzaoz hospital visit by physicianUnited [facility] Card Rehab Therapist 4 M[facility]Z CARDIAC REHABComment on above:ArrivedStart: 03-01-2024 End: 88-43-3318ptfawtxelnKTAIXOMercy Health Clermont Hospitaltart: 03-01-2024 End: 57-46-0725Lqmjzfpdlv hospital visit by physicianUnited [facility] Card Rehab Therapist 4 M[facility]Z CARDIAC REHABComment on above:ArrivedStart: 74-89-9183kgxueuvpacDIAOFCMercy Health Clermont Hospitaltart: 02-24-2024 End: 91-05-5595Ipyn Maria Fernanda Hair [facility] Start: 02-24-2024 End: 16-60-2901kdrxbqixicHzqgktha A. JonesFacility:FTMCStart: 02-24-2024 End: 07-93-8007Pjygkxdidw hospital visit by physicianMwh Card Rehab Therapist 4 M[facility]Z CARDIAC REHABComment on above:ArrivedStart: 02-23-2024 End: 43-30-9017qsxdrdjtxfIHQTYG BRAUNMercy Willard HospitalStart: 02-23-2024 End: 31-07-0690Hfbkeubnak hospital visit by physicianMwh Card Rehab Therapist 4 M[facility]Z CARDIAC REHABComment on above:ArrivedStart: 02-19-2024 End: 13-04-1001detjjrnnzxNFPPGSSt. John Rehabilitation Hospital/[facility] HospitalStart: 02-19-2024 End: 13-48-1520Nkaccatrwp hospital visit by physicianMwh Card Rehab Therapist 4 M[facility]Z CARDIAC REHABComment on above:ArrivedStart: 02-16-2024 End: 43-08-9503znrewkacuoHHGHSGSt. John Rehabilitation Hospital/[facility] HospitalStart: 02-16-2024 End: 66-87-7147Zqzmgukoww hospital visit by physicianMwh Card Rehab Therapist 4 M[facility]Z CARDIAC REHABComment on above:ArrivedStart: 02-12-2024 End: 24-60-2311twiryxwqgrEKLYWF BRAUNMercy Willard HospitalStart: 02-12-2024 End: 36-43-4286Ozhhdbeqls hospital visit by physicianMwh Card Rehab Therapist 4 M[facility]Z CARDIAC REHABComment on above:ArrivedStart: 02-10-2024 End: 09-04-2614jsyuonkpnlUYMPWV BRAUNMercy Willard HospitalStart: 02-10-2024 End: 30-94-0539Pmbpskhmly hospital visit by physicianMwh Card Rehab Therapist 4 M[facility]Z CARDIAC REHABComment on above:ArrivedStart: 02-09-2024 End: 45-18-4458wouqdvoegmSEXHMNSt. John Rehabilitation Hospital/[facility] HospitalStart: 02-09-2024 End: 33-44-5731Anyvuxsavc hospital visit by physicianMwh Card Rehab Therapist 3 M[facility]Z CARDIAC REHABComment on above:ArrivedStart: 02-05-2024 End: 53-15-5062xdvowxomtvEBADHWSt. John Rehabilitation [facility] HospitalStart: 02-05-2024 End: 97-49-9466Dgklhzblsq hospital visit by physicianM Card Rehab Therapist 3 M[facility]Z CARDIAC REHABComment on above:ArrivedStart: 02-03-2024 End: 03-20-4741ygmlmociitSPWMGESt. John Rehabilitation Hospital/[facility] HospitalStart: 02-03-2024 End: 94-00-9306Zvnnlgonjm hospital visit by physicianUnited [facility] Card Rehab Therapist 1 M[facility]Z CARDIAC REHABComment on above:ArrivedStart: 02-02-2024 End: 44-74-8257mnxvfunkegTADSYGSt. John Rehabilitation Hospital/[facility] HospitalStart: 02-02-2024 End: 18-20-5437Ydpnibntyg hospital visit by physicianUnited [facility] Card Rehab Therapist 3 M[facility]Z CARDIAC REHABComment on above:ArrivedStart: 01-28-2024 End: 73-64-0603kbburssrgbIwkzatwolCleveland Clinic [facility]cre[facility] Hospital Work Phone: Start: 01-28-2024 End: 42-23-4765Jviavyp encounter procedureUnc Health Wayne Physician GroupC[facility] Work Phone: Start: 01-23-2024 End: 32-79-5457tseinrxsuiSZMVJVATrumbull Memorial Hospitaltart: 01-22-2024 End: 73-80-4390bpmvqhgyjgClvcbkcn A. JonesFacility:FTMCStart: 01-22-2024 End: 11-34-3961Dmkalur encounter procedureDaniel Hair [facility] Start: 01-20-2024 End: 58-40-4595gjibqljgisZlleexyq A. JonesFacility:FTMCStart: 01-20-2024 End: 65-37-9525Rcgk ManagementDaniel Hair [facility] Start: 12-23-2023 End: 82-33-2720Ggwdoullkv hospital visit by physicianWing Álvarez MD Work Phone: [facility] Nuclear MedicineComment on above: ArrivedStart: 12-22-2023 End: 30-22-9188Znvaouflrg hospital visit by Bernardo Bragg MD Work Phone: mwhz LaboratoryComment on above:Atrial flutter, unspecified type (HCC); Vitamin D deficiency; Encounter for lipid screening for cardiovascular disease; Fatigue, unspecified typeStart: 12-17-2023 End: 55-61-7443Ilvpyul encounter procedureBrapatricia Hair [facility] Start: 12-12-2023 End: 21-95-8051Elsuggqnma hospital visit by physicianWing Álvarez MD Work Phone: [facility] Non-Invasive CardiologyComment on above:Shortness of breathStart: 12-02-2023 End: 17-30-3133Cqbzkj flowsheetChristopher Fortino Gusman DPM Work Phone: noms WWW PODIATRYStart: 12-02-2023 End: 01-57-1465Cvmtqi flowsheetChristopher J Bohach DPM Work Phone: noMS WWW PODIATRYStart: 12-02-2023 End: 69-16-8259Oxgmczg encounter procedureChristopher J Bohach DPM Work Phone: noms WWW PODIATRYComment on above:Idiopathic progressive polyneuropathy (Primary Dx); OnychomycosisStart: 11-24-2023 End: 83-29-1286Hwym ManagementDaniel Hair [facility] Start: 28-49-3673Tyfonzi encounter procedureMetroHealth Main Campus Medical Centertart: 11-19-2023 End: 55-69-7823wjaemxgpkeVgxabobqiCleveland Clinic Hill[facility] Hospital Work Phone: Start: 11-19-2023 End: 52-20-0992Ueuunvt encounter procedureUnc Health Wayne Physician GroupCleveland Clinic [facility] Work Phone: Start: 10-28-2023 End: 20-52-2114Fwmh ManagementDaniel Hair [facility] Start: 09-17-2023 End: 15-63-1575Btoz ManagementHeavenly Mahoney [facility] Start: 09-08-2023 End: 58-02-5586Knva ManagementDaniel Hair [facility] Start: 08-11-2023 End: 18-24-8268Lifv ManagementHeavenly Mahoney [facility] Start: 08-04-2023 End: 33-86-0433Bcoe ManagementDaniel Hair [facility] Start: 07-03-2023 End: 13-92-2767Quzxwuk encounter Whit Hair [facility] Start: 07-03-2023 End: 03-56-9061Ahdu ManagementDaniel Hair [facility] Start: 04-11-2023 End: 98-25-4219ejugpjhwllUkmrmh Braun Other [place] [employer] Other Start: 59-56-3460Fiyzzzk encounter procedureFaizan [facility] ClinicStart: 04-08-2023 End: 36-86-3947apecyfoiehLorxjz Bragg Other [employer] Other Start: 76-14-9569Sqkcqg outpatient visit 15 minutes Faizan [facility] ClinicStart: 11-14-2022 End: 05-41-7629hgmvekndfcQdrtbi Bragg Other [employer] Other Start: 18-22-1723Oalfkkcsd encounterMarnancy [facility] ClinicStart: 10-29-2022 End: 22-87-5337dwvbakypxyQdgvnd Bragg Other [employer] Other Start: 41-15-0439Nsqnhivls encounterMarnancy [facility] ClinicStart: 08-30-2022 End: 20-09-2610Drhrccgaks hospital visit by physicianMwh Additional Xray At Mw MWHZ RESPIRATORY THERAPYComment on above:Atrial flutter, unspecified type (HCC); Vitamin D deficiency; Encounter for lipid screening for cardiovascular disease; Aortic valve stenosis, etiology of cardiac valve disease unspecifiedAtrial flutter, unspecified type (HCC); Vitamin D deficiency; Encounter for lipid screening for cardiovascular disease; Aortic valve stenosis, etiology of cardiac valve disease unspecified; Fatigue, unspecified typeAtrial flutter, unspecified type (HCC); Vitamin D deficiencyStart: 07-12-2022 End: 44-45-4910bufjsnraotDHTamia BRAGGFacility:T0Xvhkp: 07-11-2022 End: 50-54-9409bpjgqlhwycPCTamia Sandracility:X4Vuoxy: 12-01-8510Pxfzhh outpatient visit 15 minutesMarnancy [facility] ClinicStart: 07-09-2022 Telephone encounterMarnancy [facility] ClinicStart: 07-09-2022 End: 68-37-2052twcalbqbizUS FAIZAN E [employer] Other Start: 07-01-2022(Televisit) TelevisitMarcigalo BraggTUBA CITY REG[facility] Ted [facility] Hospitaltart: 07-01-2022 End: 48-17-8148dhzgyszminHtvgxd Bragg Other [employer] Other Start: 05-29-2022 End: 39-00-2640pealhnbkjbHrgcsj Bragg Other [employer] Other Start: 05-48-9664Stzaxbcad encounterMarcia [facility] Ted [facility]art: 05-27-2022 End: 31-22-5120ojlqtdzyslRlksrq Bragg Other [employer] Other Start: 01-84-4899Ormogxkff encounterMarcia [facility] ClinicStart: 50-73-3261Nrsmrgu encounter procedureMarcia [facility] Centertart: 05-22-2022 End: 26-70-8867llvdaxgyqnKE MARCIA E [employer] Other Start: 04-19-2022 End: 54-15-3046futllznmdfEfboos Bragg Other [employer] Other Start: 95-22-7306Ctemrigeu encounterMarcia [facility] ClinicStart: 12-06-2021 End: 33-51-4363Xfdhcnbwrr hospital visit by physicianMshahid Covid19 Pat Screening ScheduleMWHZ PRE ADMITComment on above:Suspected COVID-19 virus infection; Cough; Runny noseStart: 11-14-2021 End: 42-24-4149Xsxmawvgoj hospital visit by Dominic BLACK Work Phone: mWHZ Occupational TherapyComment on above:Arrived Start: 11-12-2021 End: 75-45-7247Obggwekvfs hospital visit by Joann BRODY Occupational TherapyComment on above:ArrivedStart: 11-09-2021 End: 01-44-2597Blhfmwzwur hospital visit by Raya OTERO Occupational TherapyComment on above:ArrivedStart: 11-07-2021 End: 93-34-0546Erdppfzzxw hospital visit by Shara OTERO Occupational TherapyComment on above:ArrivedStart: 11-05-2021 End: 88-78-0553Srhccnfubg hospital visit by Shara OTERO Occupational TherapyComment on above:ArrivedStart: 11-02-2021 End: 70-13-4864Ncqmqtsjvg hospital visit by Shara OTERO Occupational TherapyComment on above:ArrivedStart: 10-30-2021 End: 88-94-9248Zrdrupmgpj hospital visit by Shara OTERO Occupational TherapyComment on above:ArrivedStart: 10-29-2021 End: 41-17-8109Secpfzkuge hospital visit by Shara OTERO Occupational TherapyComment on above:ArrivedStart: 10-24-2021 End: 87-12-4848Ztmlsfqbpf hospital visit by Shara OTERO Occupational TherapyComment on above:ArrivedStart: 10-23-2021 End: 85-88-4317Phkiimboq to same day surgery centerMD Faizan Bragg Work Phone: [facility] Ctr-Digestive HealthStart: 10-22-2021 End: 01-77-4765Qsjpcgsaua hospital visit by Joann BRODY Occupational TherapyComment on above:ArrivedStart: 10-19-2021 End: 75-94-5776Kwarefh encounter procedureMD Faizan Bragg Work Phone: [facility] Emj-Mif-Jiwiwdrm Testing Start: 10-19-2021 End: 49-46-7154Rsciwmxwxv hospital visit by Shara OTERO Occupational TherapyComment on above:ArrivedStart: 10-17-2021 End: 43-10-0028Jjhcnrieuw hospital visit by Shara OTERO Occupational TherapyComment on above:ArrivedStart: 10-16-2021 End: 39-50-5315Gxtxprvrks hospital visit by Shara OTERO Occupational TherapyComment on above:ArrivedStart: 10-12-2021 End: 49-46-1844Hxmtylnkaa hospital visit by Shara OTERO Occupational TherapyComment on above:ArrivedStart: 10-08-2021 End: 38-42-2240Dmsdhxfugi hospital visit by Dominic BLACK Work Phone: mWHZ Occupational TherapyComment on above:Arrived Start: 10-05-2021 End: 76-99-9711Iwubscgnlj hospital visit by Shara OTERO Occupational TherapyComment on above:ArrivedStart: 10-04-2021 End: 67-85-2638nqinemhdeqTawgvgt Ditty Other [employer] Other Start: 58-43-3478VHYL visit new patientRealmelba Amaya [facility] GastroenterologyStart: 10-02-2021 End: 43-29-2852Pnwzqmtmjv hospital visit by Shara OTERO Occupational TherapyComment on above:ArrivedStart: 09-26-2021 End: 98-04-6878Qnlfqmdrdo hospital visit by Shara OTERO Occupational TherapyComment on above:ArrivedStart: 09-25-2021 End: 49-59-2899Vbqunvslpw hospital visit by Shara OTERO Occupational TherapyComment on above:ArrivedStart: 09-21-2021 End: 89-14-8580Fhkuyaahgf hospital visit by Shara OTERO Occupational TherapyComment on above:ArrivedStart: 09-19-2021 End: 27-20-1612Bwwzwrqgoo hospital visit by Shara OTERO Occupational TherapyComment on above:ArrivedStart: 09-14-2021 End: 74-66-7311Ppjlcoqjan hospital visit by Dominic BLACK Work Phone: mwhz Occupational TherapyComment on above:Arrived Start: 09-12-2021 End: 74-01-7582Dsanmugzon hospital visit by Shara Brizuela [facility]ITALL[facility]orio Occupational TherapyComment on above:ArrivedStart: 09-10-2021 End: 38-39-6568Zggcyhzzyg hospital visit by Shara Brizuela [facility] Occupational TherapyComment on above:ArrivedStart: 09-07-2021 End: 16-62-4993Ebioofraza hospital visit by Shara Brizuela [facility] Occupational TherapyComment on above:ArrivedStart: 09-05-2021 End: 70-45-1451Wgjniltebu hospital visit by Shara Brizuela [facility]ITALLiborio Occupational TherapyComment on above:ArrivedStart: 09-04-2021 End: 27-54-2351Ufypxoucay hospital visit by Shara Brizuela [facility]IT[facility]iborio Occupational TherapyComment on above:ArrivedStart: 09-03-2021 End: 82-72-3686Sdzpzhlljb hospital visit by Bernardo Bragg MD Work Phone: mwhz RESPIRATORY THERAPYComment on above:Vitamin D deficiency; Encounter for lipid screening for cardiovascular disease; Atrial flutter, unspecified type (HCC)Start: 10-40-0258Zimno health examination Faizan Bragg Other [employer] Other Start: 08-22-2021 End: 05-40-2266hdjluiiwmyNR FAIZAN BRAGGFacility:G1Iqdfb: 07-16-2021 End: 68-24-6847uuuhhhtpbiQcmfdo SkieFacility:UTMCStart: 93-74-9557Jvliuhooc Dhara Manzanares MD Work Phone: Hematology/OncologyComment on above:Care Coordination (appointment question)Start: 02-03-8512Szmjvqxej Gita Tellez RN Hematology/OncologyComment on above:ResultsStart: 91-06-5913Yqhrjpfxh encounter Ketan Manzanares MD Work Phone: Cancer Appts MCComment on above:Referral Information (GI)Start: 07-02-2021 End: 75-33-6314ppcndvtepqAnwkxsdhy Kunte MD Work Phone: Hematology/OncologyComment on above:Normocytic anemia (Primary Dx); MGUS (monoclonal gammopathy of unknown significance)Start: 07-02-2021 End: 00-55-6112Wqghwmx encounter procedureSkaterine Manzanares MD Work Phone: SANDUSKYStart: 12-14-2020 End: 42-85-9827Cxkzpxjzcl hospital visit by Bernardo Bragg MD Work Phone: mwhz LaboratoryComment on above:Fatigue, unspecified type; Leg edema; Discoloration of skin of lower legStart: 12-14-2020 End: 46-49-6081Nspihgnaqt hospital visit by Bernardo Bragg MD Work Phone: mwhz LaboratoryComment on above:Abnormal EKGStart: 10-23-2020 End: 89-31-8191Ukzpsifpky hospital visit by Bernardo Bragg MD Work Phone: mwhz RESPIRATORY THERAPYComment on above:Abnormal EKG Start: 10-23-2020 End: 73-16-4209Oqwgjfnoav hospital visit by Bernardo Bragg MD Work Phone: mwhz LaboratoryComment on above:Atrioventricular septal defect (AVSD); Aortic valve stenosis, etiology of cardiac valve disease unspecified; Atrial flutter, unspecified type (HCC); Abnormal EKG; Encounter for lipid screening for cardiovascular disease; Vitamin D deficiency; Fatigue, unspecified typeStart: 10-20-2020 End: 06-38-7628Lavxwkyos department patient visitPamela Montoya MD Work Phone: [facility] EDComment on above:Vasculitis (HCC) (Primary Dx); Essential hypertension; Peripheral edema; Chronic obstructive pulmonary disease, unspecified COPD type (HCC)Start: 08-11-2020 End: 50-56-2154Oxkhfzeklr hospital visit by physicianZulma Medina19 Pat Screening ScheduleMZ PRE ADMITComment on above:ArrivedStart: 08-08-2020 End: 71-70-1829Ppleniboxz hospital visit by physicianshahid [facility]naheed [facility] M[facility]Z ECHOComment on above:Atrioventricular septal defect (AVSD); Aortic valve stenosis, etiology of cardiac valve disease unspecifiedStart: 07-27-2020 End: 67-30-3743Kssyxplepdyoz examination done[address] Radiology Start: 07-27-2020 End: 30-84-8890Kokkuufnzy hospital visit by physicianshahid Zimmerman 1MWHZ RESPIRATORY THERAPYComment on above:Atrioventricular septal defect (AVSD); Aortic valve stenosis, etiology of cardiac valve disease unspecified; Atrial flutter, unspecified type (HCC); Abnormal EKG; Encounter for lipid screening for cardiovascular disease; Vitamin D deficiencyAbnormal EKG; Pre-op evaluation; Encounter for lipid screening for cardiovascular disease; Fatigue, unspecified typeStart: 06-28-2020 End: 60-76-4163Pslaalyrsv hospital visit by [facility] MRIComment on above:ArrivedStart: 04-25-2020 End: 97-78-8835JgmnijChidi Banuelos Work Phone: [facility] JUSTIN [facility] Start: 12-24-2019 End: 48-34-1727Ufpmtmdjdg hospital visit by Soniya Fisher Physical TherapyStart: 12-22-2019 End: 94-08-7478Hdywqgimrn hospital visit by Kathleen Choi Physical TherapyComment on above:No ShowStart: 12-21-2019 End: 74-07-0576Vseroambvq hospital visit by Wero North Physical TherapyComment on above:Canceled (Error)Start: 12-16-2019 End: 11-53-2066Yconxyccma hospital visit by Kathleen Choi Physical TherapyComment on above:ArrivedStart: 12-15-2019 End: 68-67-5335Rwuhlyidac hospital visit by Kathleen Choi Physical TherapyComment on above:ArrivedStart: 12-13-2019 End: 33-28-0863Cyeygyriww hospital visit by Wero North Physical TherapyComment on above:ArrivedStart: 12-10-2019 End: 02-87-9047Jfwqivomxs hospital visit by physicianGary North Physical TherapyComment on above:ArrivedStart: 12-08-2019 End: 39-46-4978Djxrjpzkdd hospital visit by physicianGary North Physical TherapyComment on above:ArrivedStart: 12-03-2019 End: 71-94-0453Gpxahtwwno hospital visit by physicianGary North Physical TherapyComment on above:ArrivedStart: 12-01-2019 End: 60-87-1407Nsrdrmppsh hospital visit by Wero North Physical TherapyComment on above:ArrivedStart: 11-29-2019 End: 51-86-1579Grrktjifxg hospital visit by Kathleen Choi Physical TherapyComment on above:ArrivedStart: 11-03-2019 End: 97-22-5674Mzrqftc encounter procedureSMERCY [facility] MATI Arizmendi [facility] HospitalStart: 11-03-2019 End: 64-29-7711Mztcsmoleg hospital visit by Tato Hernandez Work Phone: [facility] MRIComment on above: Bilateral optic atrophyStart: 10-18-2019 End: 34-88-4487Gnisplz encounter procedureSMERCY HEALTH [facility] MATI Garcia [facility] HospitalStart: 09-18-2019 End: 93-74-9879Tjktchzoc department patient visitGurdeep Ron Work Phone: [facility] EDComment on above:Compression fracture of thoracic vertebra, initial encounter, unspecified thoracic vertebral level (HCC) (Primary Dx); Closed head injury, initial encounterStart: 33-84-7715AfogrgjrxaCOLXXREbony MCFARLANDTFacility:[facility] Procedures DateProcedureProcedure DetailPerforming ClinicianStart: 15-92-5027Scd-scan xtr veins complete bilateral studyArturo Palma MD Work Phone: start: 76-99-9357Gww-scan xtr veins complete bilateral studyMiesha Clark NURSE LIAISON - WEB SITE MANAGER Work Phone: Start: 77-10-9792Loqej metabolic panel calcium total Miesha Clark NURSE LIAISON - WEB SITE MANAGER Work Phone: Start: 91-58-7461QKZ w or wo fol wcon,DopplerMiesha Clark NURSE LIAISON - WEB SITE MANAGER Work Phone: Start: 11-10-2024 End: 22-51-0608WGVFZZXSAUD SKIN LESIONAlison L Brooke PA Work Phone: Start: 06-27-6363Ixfkt of prostate specific antigen totalThomas Nathan DE LA PAZ Work Phone: Start: 44-06-9429Ggyivtqdzy exam chest 2 viewsMiesha Clark NURSE LIAISON - WEB SITE MANAGER Work Phone: Start: 02-53-7729ECUDANIQGDY SKIN LESIONAlison L Brooke PA Work Phone: Start: 61-67-8653Znhqtjpjxm exam chest 2 Paul Clark NURSE LIAISON - WEB SITE MANAGER Work Phone: Start: 27-78-5764Cwzyavquzrdgn metabolic panelGreg Juan Jose Álvarez MD Work Phone: Start: 54-28-2066Gcocv panelGreg Juan Jose Álvarez MD Work Phone: Start: 81-40-1476FNZJ / NAIL BIOPSYAlison L Brooke PA Work Phone: Start: 38-74-0193JDKXSUXLBKP SKIN LESIONAlison L Brooke PA Work Phone: Start: 30-45-5731Zxaqpkbnh into facet joint of cervical spine using fluoroscopic guidanceDaniel Hair start: 97-59-5165Zkxuhiffb of facet joint using fluoroscopic guidanceDaniel Hair comment on above:C5-7Start: 27-77-8216Mecdmurtop spect multiple studiesGreg Juan Jose Álvarez MD Work Phone: Start: 14-46-4223Ayvcdvqotxuxm metabolic panelGreg Juan Jose Álvarez MD Work Phone: Start: 89-03-1947Clofn panelGreg Juan Jose Álvarez MD Work Phone: Start: 76-74-9876Qjrw tthrc r-t 2d w/wom-mode compl spec&colr dGreg Juan Jose Álvarez MD Work Phone: Start: 43-31-5543Kbipcodptfqawy ablation of medial branch of cervical nerve using fluoroscopic guidanceDaniel Hair comment on above:50% relief to currentStart: 10-28-2023 Radiofrequency ablation of medial branch of cervical nerve using fluoroscopic guidanceDaniel Hair comment on above:50% relief to currentStart: 09-08-2023 Injection into facet joint of cervical spine using fluoroscopic guidanceInspira Medical Center VinelandForward Health Group comment on above:80% reliefStart: 39-98-9405Mdeqgmqxs into facet joint of cervical spine using fluoroscopic guidanceInspira Medical Center VinelandForward Health Group comment on above:80% reliefStart: 63-72-8478Ese routine ecg w/least 12 lds w/i&rGreg Juan Jose Álvarez MD Work Phone: Start: 62-42-9989Oriaxgtwuv exam chest 2 viewsGreg Juan Jose Álvarez MD Work Phone: Start: 59-34-2697Mioyaomnfrrkc metabolic panelGreg Juan Jose Álvarez MD Work Phone: Start: 08-50-0854Imptr panelGreg Juan Jose Álvarez MD Work Phone: Start: 06-66-5400ICVQJJD FASTING?Wing Juan Jose Álvarez MD Work Phone: Start: 68-40-8870NWY screeningDR FAIZAN BRAGGComment on above:Performed By: #### PSASC #### [facility] [address] [place] [address] Dr. Carolina NamStart: 16-89-6489PMMKN-19, Samanta Bauman NURSE LIAISON - WEB SITE MANAGER Work Phone: Start: 55-85-1993LworutymhyzgsdrevgujdchogjHT Faizan Bragg Work Phone: Start: 51-95-4983Gbk routine ecg w/least 12 lds w/i&r Wing Álvarez MD Work Phone: Start: 30-92-1454Oqwqq of ferritinGreg Juan Jose Álvarez MD Work Phone: Start: 54-01-7914E-reactive proteinGreg Juan Jose Álvarez MD Work Phone: Start: 82-86-9048Ateln dip stick/tablet rgnt auto w/o microscopyGreg Juan Jose Álvarez MD Work Phone: Start: 32-46-1791INMYDKP B12 & FOLATEGreg Juan Jose Álvarez MD Work Phone: Start: 97-76-2884Xwb routine ecg w/least 12 lds w/i&r Wing Álvarez MD Work Phone: Start: 17-53-2427Dmhezohpnedum metabolic panelWing Álvarez MD Work Phone: Start: 99-79-6774Upq routine ecg w/least 12 lds w/i&r Wing Álvarez MD Work Phone: Start: 83-08-8780Yexaqglzqd exam chest 2 Percy Montoya MD Work Phone: Start: 25-48-3371Csa routine ecg w/least 12 lds w/i&r Pamela Montoya MD Work Phone: Start: 84-26-7865Dyahwhuntza peptidePamela Montoya MD Work Phone: Start: 43-86-0154ENOEN-19, RAPIDFaizan Bragg MD Work Phone: Start: 80-81-1851Kol routine ecg w/least 12 lds w/i&r Wing Álvarez MD Work Phone: Start: 69-02-6051Zvcxpnybni exam chest 2 viewsWing Álvarez MD Work Phone: Start: 53-59-0967Pnyyo metabolic panel calcium total Torrey Griggs MD Work Phone: Start: 32-05-9560Jwc spinal canal lumbar w/o contrast materialDerek L [place] Work Phone: start: 91-43-8561Jkf brain brain stem w/o w/contrast materialSteven Mati Hernandez Work Phone: start: 17-93-8039Qd thoracic spine w/o contrast materialTyler Ron Work Phone: Start: 12-50-5315Ea cervical spine w/o contrast materialTyler Ron Work Phone: Start: 64-37-2845Mt head/brain w/o contrast material Gurdeep Ron Work Phone: Start: 90-31-1485Yharppb and physical examination, administrativeGillianlawandaa Aaron Other Start: 52-54-7689Bnzqejduq for malignant neoplasm of prostateMarcia Aaron Other Screening for malignant neoplasm of prostateGilliancia Aaron Other Plan of Treatment DateCare ActivityDetailAuthorStart: 47-63-7677VTnC/Tdap/Td vaccine (2 - Td or Tdap)DTaP/Tdap/Td vaccine (2 - Td or Tdap)[facility]Start: 58-46-5880FQtP/Tdap/Td vaccine (2 - Td)DTaP/Tdap/Td vaccine (2 - Td)[place], [place]Start: 50-96-6839Oahaeeh vaccinationTetanus: Every 10yrsOhioHealth Start: 08-16-2025 End: 75-95-8566Wwgiaro encounter /19/2026 10:00 AM EDT Office Visit [facility] UROLOGY Part [facility] [address] [facility] [place] [address] Chente Lyons PAEdwinaC [address] [facility] [address] [place] [address] 1 year [facility] UR[facility] Part [facility] CenterComment on above:1 year PSAStart: 04-28-2025 End: 29-69-3544Yrienvn encounter xevclodck56/29/2026 9:30 AM EST Office Visit [facility] Cost Estim[facility] [address] [place] [address] Miesha Clark, NURSE LIAISON - WEB SITE MANAGER [address] [place] [address] 1 year follow up labs ekg cxrMercy Cardiology SpecialistComment on above:1 year follow up labs ekg cxrStart: 73-37-8739Wdqya panelLipidsBon Secours [facility]itt[facility] Medical CenterStart: 04-04-2025 End: 99-00-5494Pgxeorn encounter tbolqxaeq96/05/2026 9:45 AM EST Procedure Visit [facility] [address] [place] [address] Carol Gusman DPM [address] [place] [address] [facility] PodiatryStart: 03-11-2025 End: 11-88-3711Xqnbhzt encounter expszebuk53/12/2025 11:30 AM EST Office Visit [facility] [address] [place] [address] Natalie Marks PA [address] [facility] [address] [place] [address] FOUZIA TSR DERMStart: 03-11-2025 End: 56-61-3528Rxpvlsu encounter procedureNO TSR DERMStart: 02-28-2025 End: 06-82-3400Coleyvd encounter dxafbabxu52/01/2025 10:30 AM EST Office Visit [facility] [address] [place] [address] Carol Gusman, DPM [address] [place] [address] NOMJuan Jose Bryant PodiatryStart: 02-16-2025 End: 98-85-3609Whyeptj encounter gqbxaceva69/19/2025 1:45 PM EST Office Visit [address] [place] [address] Arturo Palma MD [address] [place] [address] [address] [place] [address] 3 week follow up after Vascular studyUniversity Hospitals Lake West Medical CenterComment on above:3 week follow up after Vascular studyStart: 02-09-2025 End: 76-63-8632Hbkjmle encounter jjhbyuasr86/12/2025 9:45 AM EST Office Visit [address] [place] [address] Arturo Palma MD [address] [place] [address] [address] [place] [address] Edema of right lower legUniversity Hospitals Lake West Medical CenterComment on above:Edema of right lower legStart: 02-02-2025 End: 21-95-3548Egmmpqe encounter luqsgazwj77/05/2025 10:30 AM EST Office Visit [facility] Cost Estimator [address] [place] [address] Miesha Clark, NURSE LIAISON - WEB SITE MANAGER [address] [place] [address] 2 week follow up bmpMercy Cardiology SpecialistComment on above:2 week follow up bmpStart: 01-27-2025 End: 39-56-0802Gcqexvf encounter procedureNOMS WWW PODIATRYComment on above: ArrivedStart: 90-14-0197Xmcoh panelLipidsBon [facility]itan HospitalStart: 84-81-8843VCEFD-19 Vaccine ( season)COVID-19 Vaccine ( season)[facility] HospitalStart: 61-68-9210Nfnsmiqhp vaccinationInfluenza Vaccine (#1)[facility]achusettsHealthStart: 11-18-2024 End: 63-07-2764Mqjcijb encounter kkrdlktyd94/21/2025 2:15 PM EDT Office Visit [facility] [address] [place] [address] Carol Gusman, DPSteffany [address] [place] [address] ArrivedFOUZIA Bryant PodiatryComment on above:Arrived Start: 11-10-2024 End: 34-66-8739Ltmldqp encounter jztzfgeqr14/13/2025 10:50 AM EDT Office Visit [facility] [address] [place] [address] Natalie Marks, GABRIEL [address] [facility] [address] [place] [address] Dale Umaña DermatologyComment on above:ArrivedStart: 09-27-2024 End: 69-90-9834Rxybwiu encounter procedureNOMS WWW PODIATRYComment on above: ArrivedStart: 08-31-2024 End: 33-77-8657Krtruyk encounter procedureMer Cardiology SpecialistComment on above:1 year follow up labs ekg cxrStart: 08-16-2024 End: 22-42-8608Oobzyws encounter cvdcqfxxo77/19/2025 9:30 AM EDT Office Visit [facility] UROLOGY Part of [facility] [address] [place] [address] Sharee Evans MD [address] [place] [address] [facility] UROLOGY Part [facility] CenterComment on above:6 month psaStart: 07-29-2024 End: 96-16-2117Noisnsj encounter procedureNOMS WWW PODIATRYComment on above: ArrivedStart: 07-15-2024 End: 62-30-7106Tpgsjvm encounter procedureNOMS WWW PODIATRYComment on above: ArrivedStart: 54-22-4415YSSPASUZ SCREENDIABETES SCREENHart ClinicStart: 06-14-2024 End: 14-78-9136Taufslv encounter procedureNOMS TSR DERMComment on above:Arrived Start: 41-79-6284Tftjemix vaccine (2 of 2)Shingles vaccine (2 of 2)[facility] CenterStart: 05-17-2024 End: 22-49-3492Fwkvwzo encounter ynkketfsa27/17/2025 9:00 AM EST Appointment [facility] [address] [place] [address] BPVM CARDIAC REHABStart: 05-13-2024 End: 91-65-1625Kgchdol encounter procedureMWHZ CARDIAC REHABComment on above: ArrivedStart: 05-11-2024 End: 08-47-5868Qqrlrye encounter aixsovktw90/11/2025 9:00 AM EST Appointment [facility] [address] [place] [address] WDYA CARDIAC REHABStart: 05-10-2024 End: 31-97-7255Aegsiri encounter sunvheiil65/10/2025 9:00 AM EST Appointment [facility] [address] [place] [address] DFEV CARDIAC REHABStart: 05-06-2024 End: 88-58-0741Zmuywyh encounter fsqdeybls67/06/2025 9:00 AM EST Appointment [facility] [address] [place] [address] WLJJ CARDIAC REHABStart: 05-04-2024 End: 96-96-0628Asidsnq encounter siawppdek95/04/2025 9:00 AM EST Appointment [facility] [address] [place] [address] GRKI CARDIAC REHABStart: 05-03-2024 End: 20-90-9925Srthbxr encounter yrjuzyrul22/03/2025 9:00 AM EST Appointment [facility] [address] [place] [address] CWHD CARDIAC REHABStart: 04-29-2024 End: 53-74-7894Bjbgoya encounter procedureMagruder Hospital Cardiology SpecialistComment on above:3 mth follow up labsStart: 04-27-2024 End: 82-95-5809Ozjlhpk encounter fitukosjp60/28/2025 9:00 AM EST Appointment [facility] [address] [place] [address] VUUL CARDIAC REHABStart: 04-26-2024 End: 12-69-4063Rmyfkrs encounter /27/2025 9:00 AM EST Appointment [facility] [address] [place] [address] XEYK CARDIAC REHABStart: 04-22-2024 End: 80-11-5615Fkaarkh encounter dybwiwlni15/23/2025 9:00 AM EST Appointment [facility] [address] ErinSAND [place] [address] JYPG CARDIAC REHABStart: 04-20-2024 End: 23-78-9128Witnudt encounter ssejnktgn82/21/2025 9:00 AM EST Appointment [facility] [address] [place] [address] MMOY CARDIAC REHABStart: 04-19-2024 End: 53-49-2017Zkpuemi encounter txlnmplby27/20/2025 9:00 AM EST Appointment [facility] [address] [place] [address] DYQT CARDIAC REHABStart: 04-15-2024 End: 34-25-7703Fmbugqe encounter cevqbnztr82/16/2025 9:00 AM EST Appointment [facility] [address] [facility] [place] [address] TYWP CARDIAC REHABStart: 04-13-2024 End: 78-69-8799Qhlmpkh encounter aytwbllhg84/14/2025 9:00 AM EST Appointment [facility] [address] [facility] [place] [address] IBQP CARDIAC REHABStart: 04-12-2024 End: 28-95-8165Lmlnunt encounter vpapqgotr66/13/2025 9:00 AM EST Appointment [facility] [address] [facility] [place] [address] DLRU CARDIAC REHABStart: 04-08-2024 End: 82-71-4018Hutmzud encounter kvtvibqtc96/09/2025 9:00 AM EST Appointment [facility] [address] [facility] [place] [address] FRJB CARDIAC REHABStart: 04-06-2024 End: 35-38-9961Pdcgdie encounter ripukowxg39/07/2025 9:00 AM EST Appointment [facility] [address] [facility] [place] [address] VWZL CARDIAC REHABStart: 04-05-2024 End: 96-23-0367Vfvsvzj encounter cvwfxfsny49/06/2025 9:00 AM EST Appointment [facility] [address] [facility] [place] [address] MBCY CARDIAC REHABStart: 04-01-2024 End: 34-33-4214Jnsmzdo encounter whgxgiqhw77/02/2025 9:00 AM EST Appointment [facility] [address] [facility] [place] [address] PECA CARDIAC REHABStart: 03-30-2024 End: 57-96-0663Yztospx encounter xcnhcwoph73/31/2024 9:00 AM EST Appointment [facility] [address] [facility] [place] [address] DEEG CARDIAC REHABStart: 03-29-2024 End: 52-78-7745Ynogais encounter /30/2024 9:00 AM EST Appointment [facility] [address] [place] [address] LDSF CARDIAC REHABStart: 03-25-2024 End: 00-51-1992Jraztcf encounter aljcbphzi38/26/2024 9:00 AM EST Appointment [facility] [address] [place] [address] UUQS CARDIAC REHABStart: 03-23-2024 End: 97-91-6709Peheehr encounter ubhaelxaf86/24/2024 9:00 AM EST Appointment [facility] [address] [address] ENJG CARDIAC REHABStart: 03-22-2024 End: 11-72-1438Kjhtdxt encounter /23/2024 9:00 AM EST Appointment [facility] [address] [place] [address] JAVE CARDIAC REHABStart: 03-18-2024 End: 13-99-8571Fgdiqsq encounter daqpdtons88/19/2024 9:00 AM EST Appointment [facility] [address] [address] YFQI CARDIAC REHABStart: 03-16-2024 End: 28-20-2298Kscruwy encounter iivwwwfan72/17/2024 9:00 AM EST Appointment [facility] [address] [place] [address] ZLNJ CARDIAC REHABStart: 03-15-2024 End: 00-43-2325Wsxdrfo encounter /16/2024 9:00 AM EST Appointment [facility] [address] [facility] [place] [address] ZVJO CARDIAC REHABStart: 03-11-2024 End: 67-84-6056Cznupzc encounter bniknkevx33/12/2024 9:00 AM EST Appointment [facility] [address] [facility] [place] [address] KXSP CARDIAC REHABStart: 03-10-2024 End: 03-62-2751Tzylxwu encounter procedureNOMS [facility] PODIATRYComment on above: ArrivedStart: 03-09-2024 End: 26-56-6017Lihuphn encounter pqelclwew11/10/2024 9:00 AM EST Appointment [facility] [address] [facility] [place] [address] ONGZ CARDIAC REHABStart: 03-08-2024 End: 24-51-6081Liggvqm encounter procedureMWHZ CARDIAC REHABStart: 03-04-2024 End: 08-83-7275Wvecrvk encounter wytfknsqq31/05/2024 9:00 AM EST Appointment [facility] [address] [facility] [place] [address] BGNG CARDIAC REHABStart: 03-02-2024 End: 77-24-9986Ckpoflm encounter procedureMWHLiborio CARDIAC REHABStart: 03-01-2024 End: 80-87-6760Qgrjrez encounter procedureMWHZ CARDIAC REHABStart: 02-24-2024 End: 56-96-3428Petbwhu encounter iampakygg03/26/2024 9:00 AM EST Appointment MW [facility] [address] [facility] [place] [address] JJLP CARDIAC REHABStart: 02-23-2024 End: 35-62-9518Kwghafn encounter yzowtihpy79/25/2024 9:00 AM EST Appointment [facility] [address] [facility] [place] [address] QOTK CARDIAC REHABStart: 02-19-2024 End: 91-03-9626Nmlhayg encounter ybcguzuin42/21/2024 9:00 AM EST Appointment [facility] [address] [facility] [place] [address] RYBZ CARDIAC REHABStart: 02-17-2024 End: 94-68-8102Bgnnmzz encounter bjisuyauk08/19/2024 9:00 AM EST Appointment [facility] [address] [facility] [place] [address] QEIU CARDIAC REHABStart: 02-16-2024 End: 22-35-0922Khsuuba encounter procedureUNIV[facility]OLOG[facility] Part of Waterbury HospitalComment on above:elevated psaStart: 02-12-2024 End: 29-98-5741Bmfrhdz encounter dysenlhhm38/14/2024 9:00 AM EST Appointment [facility] [address] [place] [address] DECA CARDIAC REHABStart: 02-10-2024 End: 35-50-5563Uafpzhg encounter tzhshisuu59/12/2024 9:00 AM EST Appointment [facility] [address] [place] [address] DHUI CARDIAC REHABStart: 02-09-2024 End: 85-54-4716Idvjrnh encounter ecuatiths04/11/2024 9:00 AM EST Appointment [facility] [address] [facility] [place] [address] LKRH CARDIAC REHABStart: 02-05-2024 End: 47-13-3521Vhqgdwb encounter wivwfnlvd98/07/2024 9:00 AM EST Appointment [facility] [address] [place] [address] CGNN CARDIAC REHABStart: 01-23-2024 End: 93-97-8395Pkldmzh encounter jemarbliq21/25/2024 10:00 AM EDT [facility] [address] [facility] [place] [address] Wing Álvarez MD [address] [place] [address] Left heart cath--Dr. Álvarez @ [facility]--Not scheduled with Kelli--No pre cert needed MEDICAREMagruder Hospital Cardiology SpecialistComment on above:Left heart cath--Dr. Álvarez @ [facility]--Not scheduled with Kelli--No pre cert needed MEDICAREStart: 12-24-2023 End: 81-12-9162Ucuepdn encounter mbvgkytad06/25/2024 10:00 AM EDT Office Visit [facility] Acquisition Cost Estimator [address] [facility] [place] [address] Wing Álvarez MD [address] [place] [address] c/o sob this date per [facility] Cardiology SpecialistComment on above:c/o sob this date per drStart: 88-60-9411Rlrjxtbjvx hospital visit by xcpuyltbt08/24/2024 8:00 AM EDT Hospital Encounter [facility] Non-Invasive Cardiology [address] [place] [address] Wing Álvarez MD [address] [place] [address] [facility] Non-Invasive CardiologyStart: 12-23-2023 End: 01-55-2189Zqbjinf encounter [facility]Ge[facility] Comment on above:EPIC // PATIENTLexiscan....EPIC // PATIENTStart: 12-02-2023 End: 88-24-4245Njtislv encounter nmwwxdvoy11/03/2024 10:15 AM EDT Procedure Visit [facility] [address] [place] [address] Carol Gusman DPSteffany [address] [place] [address] ArrivedNOMS WWW PODIATRYComment on above: ArrivedStart: 09-26-0624YHBRL-19 Vaccine ( season)COVID-19 Vaccine ( season)[facility]Start: 15-22-5300INEIS-19 Vaccine ( season)COVID-19 Vaccine ( season)[facility] Start: 76-42-1317Bjokfacyi vaccinationInfluenza Vaccine (#1)[facility] Start: 30-77-2975Tksiikqnl vaccinationFlu vaccine (#1)[facility] Start: 33-96-6304Zcsjxd Wellness Visit (Medicare)Annual Wellness Visit (Medicare)[facility]Start: 11-15-2022 End: 23-10-4122Fkwveuzxe to same day surgery checkx7811/15/2022 Surgery IP Unit Nazemi, Janey I, DO [address] [facility] [address] [place] [address] COLORECTAL CANCER SCREENING, HIGH RISK-DIAGNOSTICSCHZ ORComment on above:COLORECTAL CANCER SCREENING, HIGH RISK-DIAGNOSTICStart: 11-15-2022 End: 82-13-0034Dsrplrxowsg flx dx w/collj spec when pfrmdCOLORECTAL CANCER SCREENING, HIGH RISK Colon wall thickening 11/15/2022 9:00 [facility]: 59-01-9100Xzuacizeqy hospital visit by zshyvyvjk13/18/2023 Hospital Encounter IP Unit Janey Rivera I, DO [address] [facility] [address] [place] [address] MTHZ ORStart: 09-03-2022 End: 68-88-8852Rbguqyh encounter eoqfdsxnd34/06/2023 Office Visit Cardiology Wing Álvarez MD [address] [place] [address] [facility] Cardiology SpecialistStart: 51-92-4691Tafxdotpbaox 65+ years Vaccine (2 - PCV)Pneumococcal 65+ years Vaccine (2 - PCV)[facility]Start: 23-20-4930Fnoguijbiolu Vaccine: 65+ Years (2 of 2 - PCV) Pneumococcal Vaccine: 65+ Years (2 of 2 - PCV)[facility] HealthcareStart: 12-14-2021 Creatinine measurementCreatinine monitoringMercy Health Work Phone: start: 11-87-5632Dfqmliuyb monitoringPotassium monitoringMercy Health Work Phone: start: 53-74-7114Cisdirevj vaccinationGlenbeigh Hospital Start: 03-39-1323Xrxoysvfkl hospital visit by kymsbgjny79/25/2022 Hospital Encounter Occupational Therapy Irene Cordero OTA [address] [facility] [place], [facility] [address] [facility] Occupational TherapyStart: 11-21-2021 End: 00-82-9090Zodmogh encounter xxkeuokpg39/24/2022 Appointment Occupational Therapy Irene Cordero OTA [address] [place] [address] MW Occupational TherapyStart: 11-19-2021 End: 55-78-0684Fwrmumm encounter /22/2022 Appointment Occupational Therapy Irene Cordero OTA [address] [place] [address] MW Occupational TherapyStart: 11-16-2021 End: 96-91-1099Mppdukq encounter sdflvawir15/19/2022 Appointment Occupational Therapy Mary Brizuela OTMWHZ Occupational TherapyStart: 11-16-2021 Subsequent hospital visit by rjauiokrl68/19/2022 Hospital Encounter Occupational Therapy Irene Cordero OTA [address] [place] [address] MW Occupational TherapyStart: 11-14-2021 End: 07-10-1751Xcupioi encounter procedureMBHARAT Occupational TherapyStart: 11-12-2021 End: 73-56-2851Chkwmeh encounter procedureMBHARAT Occupational TherapyStart: 11-09-2021 End: 15-36-1834Vngfhxq encounter /12/2022 Appointment Occupational Therapy Mary Brizuela OTMWHZ Occupational TherapyStart: 11-09-2021 Subsequent hospital visit by /12/2022 Hospital Encounter Occupational Therapy Nelly Trevizo OTMWHZ Occupational TherapyStart: 11-07-2021 End: 54-50-4971Cppnoxv encounter mxzfbonfh91/10/2022 Appointment Occupational Therapy Mary Brizuela OTMWHZ Occupational TherapyStart: 11-05-2021 End: 44-66-3116Qizxwmu encounter lesiglarw27/08/2022 Appointment Occupational Therapy Mary Brizuela OTMWHZ Occupational TherapyStart: 11-02-2021 End: 14-76-0057Elubqek encounter larpfafjn29/05/2022 Appointment Occupational Therapy Mary Brizuela OTMWHZ Occupational TherapyStart: 10-30-2021 End: 86-41-4550Wtukbuz encounter bufnsdecv13/02/2022 Appointment Occupational Therapy Mary Brizuela OTMWHZ Occupational TherapyStart: 10-29-2021 End: 40-22-9916Stfheyu encounter iddoqwjli36/01/2022 Appointment Occupational Therapy Mary Brizuela OTMWHZ Occupational TherapyStart: 10-26-2021 End: 49-20-6819Aczskyp encounter gngemneov54/29/2022 Appointment Occupational Therapy Irene Cordero OTA [address] [place] [address] [facility] Occupational TherapyStart: 10-24-2021 End: 21-38-3980Vlshblz encounter uabnrkguj95/27/2022 Appointment Occupational Therapy Mary Brizuela OTMWHZ Occupational TherapyStart: 51-47-1761BpxcdypfrThe Surgical Hospital At [facility] Work Phone: Start: 10-23-2021 End: 11-58-5092Fkfezbh encounter irooyxhpa90/26/2022 Appointment Occupational Therapy Taya Carnes OTAMWHZ Occupational TherapyStart: 10-22-2021 End: 79-34-6661Ekfhwad encounter froresixw17/25/2022 Appointment Occupational Therapy Taya Carnes OTAMWHZ Occupational TherapyStart: 10-20-2021 Creatinine measurementCreatinine monitoringMercy Health Work Phone: start: 87-76-8124Jeyimnbal monitoringPotassium monitoringMercy Health Work Phone: start: 10-19-2021 End: 23-67-7664Atsgwpn encounter /22/2022 Appointment Occupational Therapy Mary Brizuela OTMWHZ Occupational TherapyStart: 10-17-2021 End: 74-50-5547Avhrhbu encounter epwojnaed59/20/2022 Appointment Occupational Therapy Mary Brizuela OTMWHZ Occupational TherapyStart: 10-16-2021 End: 13-06-0066Jmfnqqu encounter abvtdznsy09/19/2022 Appointment Occupational Therapy Mary Brizuela OTMWHZ Occupational TherapyStart: 10-12-2021 End: 26-75-1174Pisazrp encounter znfayrpio84/15/2022 Appointment Occupational Therapy Mary Brizuela OTMWHZ Occupational TherapyStart: 10-09-2021 End: 58-00-6779Ckxqqfa encounter egqrjjspp49/12/2022 Appointment Occupational Therapy Mary Brizuela OTMWHZ Occupational TherapyStart: 10-08-2021 End: 23-47-6551Ksqrgqy encounter ipkbkrsxs42/11/2022 Appointment Occupational Therapy Irene Cordero OTA [address] [place] [address] [facility] Occupational TherapyStart: 10-05-2021 End: 47-97-5704Ntwartc encounter /08/2022 Appointment Occupational Therapy Mary Brizuela OTMWHZ Occupational TherapyStart: 10-02-2021 End: 15-96-0546Liffadr encounter hyyyxkobt79/05/2022 Appointment Occupational Therapy Mary Brizuela OTMWHZ Occupational TherapyStart: 09-28-2021 End: 53-83-4210Mczbskx encounter /01/2022 Appointment Occupational Therapy Irene Cordero OTA [address] [place] [address] [facility] Occupational TherapyStart: 09-26-2021 End: 61-40-2805Oqugbrh encounter pxslvdidz96/29/2022 Appointment Occupational Therapy Mary Brizuela OTMWHZ Occupational TherapyStart: 09-25-2021 End: 80-54-1266Naypdty encounter jyoqkvfws10/28/2022 Appointment Occupational Therapy Mary Brizuela OTMWHZ Occupational TherapyStart: 09-21-2021 End: 90-22-4264Sdbshzm encounter /24/2022 Appointment Occupational Therapy Mary Brizuela OTMWHZ Occupational TherapyStart: 09-19-2021 End: 04-37-2863Esgbfsw encounter obbpuhldw99/22/2022 Appointment Occupational Therapy Mary Brizuela OTMWHZ Occupational TherapyStart: 09-18-2021 End: 57-51-1473Tbsmgap encounter /21/2022 Appointment Occupational Therapy Mary Brizuela OTMWHZ Occupational TherapyStart: 09-14-2021 End: 47-44-5431Xvoazkv encounter procedureMLiborio Occupational TherapyStart: 09-12-2021 End: 37-99-6265Vrmabge encounter mzfyrwapf07/15/2022 Appointment Occupational Therapy Mary Brizuela OTMWHZ Occupational TherapyStart: 09-10-2021 End: 32-44-2415Hvfxevi encounter acinuvekh44/13/2022 Appointment Occupational Therapy Mary Brizuela OTMWHZ Occupational TherapyStart: 09-07-2021 End: 35-45-3950Avazgao encounter issybbiuf12/10/2022 Appointment Occupational Therapy Mary Brizuela OTMWHZ Occupational TherapyStart: 09-05-2021 End: 47-70-9584Zogmmbr encounter unkgnyvgi29/08/2022 Appointment Occupational Therapy Mary Brizuela OTMWHZ Occupational TherapyStart: 09-04-2021 End: 26-36-4412Gcugkuf encounter procedureMercy Cardiology SpecialistStart: 07-02-2021 End: 07-02-2022 reactive protein [Mass/volume] in Serum or PlasmaAvita Health [facility] Work Phone: Comment on above:Expected: 07/02/2021, Expires: 07/02/2022Start: 07-02-2021 End: 81-05-4299Dmxrnfbzsys sedimentation rateAvita Health System [facility] Hospital Work Phone: Comment on above:Expected: 07/02/2021, Expires: 07/02/2022Start: 07-02-2021 End: 20-98-7756Gboqsuwjqioqow (EPO) [Units/volume] in Serum or PlasmaAvita Health System [facility] Work Phone: Comment on above:Expected: 07/02/2021, Expires: 07/02/2022Start: 07-02-2021 End: 20-33-5676Awlchopbqpc [Mass/volume] in Serum or PlasmaAvita Health System [facility] Work Phone: Comment on above:Expected: 07/02/2021, Expires: 07/02/2022Start: 07-02-2021 End: 92-07-1197GJAPPMAVBC PROTEIN, SERUM (BLOOD)[facility] Work Phone: Comment on above:Expected: 07/02/2021, Expires: 07/02/2022Start: 07-02-2021 End: 18-74-8881UYMFTDE ELECTROPHORESIS SERUM W/INTERPCOhioHealth [facility] Work Phone: Comment on above:Expected: 07/02/2021, Expires: 09/01/2021tart: 07-02-2021 End: 25-05-7434Mgrfuekfydt [Units/volume] in Serum or PlasmaAvita Health System [facility] Work Phone: Comment on above:Expected: 07/02/2021, Expires: 09/01/2021tart: 07-02-2021 End: 46-10-7969BEXRFTQ B12 BLOODAvita Health System [facility] Hospital Work Phone: Comment on above:Expected: 07/02/2021, Expires: 07/02/2022Start: 96-56-7820KNSQU-19 Vaccine (4 - Booster for Pfizer series) COVID-19 Vaccine (4 - Booster for Pfizer series)[facility]ENTERStart: 36-22-1598KQOMYJN DIRECTIVE DISCUSSIONADVANCE DIRECTIVE [facility] Centertart: 24-89-3180ZGBYM-19 Vaccine (4 - Booster for Pfizer series)COVID-19 Vaccine (4 - Booster for Pfizer series)[facility]ENTERStart: 02-14-2021 End: 97-25-7110Agldhse encounter iujjgocie73/17/2021 Office Visit Cardiology Wing Álvarez MD [address] [place] [address] [facility] Cardiology SpecialistStart: 12-14-2020 End: 26-61-4816Qawnxeb encounter wyqnzzufv67/16/2021 Office Visit Cardiology Wing Álvarez MD [address] [place] [address] [facility] Cardiology SpecialistStart: 30-12-0493AkbjfoyygFlorida Medical Center [employer] Work Phone: start: 10-30-2020 End: 47-77-9995Fipeukv encounter ljmabbwuy75/02/2021 Office Visit Cardiology Wing Álvarez MD [address] [place], [place] [address] [phone] [facility] Cardiology SpecialistStart: 12-24-2019 End: 04-21-6786Knvgteafgaj11/25/2020 Appointment Physical Therapy Maribel Villegas PTAMWHZ Physical TherapyStart: 12-22-2019 End: 59-79-3839Nnocykqanuw72/23/2020 Appointment Physical Therapy Kate Rivera PTMWHZ Physical TherapyStart: 12-21-2019 End: 29-87-6458Knbwmyiysem43/22/2020 Appointment Physical Therapy Gary Mcnamara PTAMWHZ Physical TherapyStart: 12-16-2019 End: 05-72-5763Ldkvkeljklf72/17/2020 Appointment Physical Therapy Kate Rivera PTMWHZ Physical TherapyStart: 12-15-2019 End: 49-49-0441Ndlehefpsiq66/16/2020 Appointment Physical Therapy Kate Rivera PTMWHZ Physical TherapyStart: 12-13-2019 End: 91-78-0087Ykvsdsvhpil14/14/2020 Appointment Physical Therapy Gary Mcnamara PTAMWHZ Physical TherapyStart: 12-10-2019 End: 49-60-3047Rnljyzxvtzn91/11/2020 Appointment Physical Therapy Gary Mcnamara PTAMWHZ Physical TherapyStart: 12-08-2019 End: 10-48-3385Oxqcvmgvtjk62/09/2020 Appointment Physical Therapy Gary Mcnamara PTAMWHZ Physical TherapyStart: 12-03-2019 End: 30-08-8056Ovvuojjnmro12/04/2020 Appointment Physical Therapy Gary Mcnamara PTAMWHZ Physical TherapyStart: 12-01-2019 End: 55-53-2793Zjtvulldpqc98/02/2020 Appointment Physical Therapy Gary Mcnamara PTAMWHZ Physical TherapyStart: 56-26-4736[facility]becgbkL[facility], [facility]: 07-52-7245Oknhpkvgc vaccination givenSequential Influenza Vaccine (#1) [facility] Hospital[facility]: 61-88-4570Foqrhe Wellness Visit (AWV)Annual Wellness Visit (AWV)[facility]: 36-05-3583Ubrnlcklwrun 65+ years Vaccine (2 - PCV)Pneumococcal 65+ years Vaccine (2 - PCV)[facility]: 08-51-3414Yawvmhrgzrk Syncytial Virus (RSV) or age 60 yrs+ (1 - 1-dose 75+ series)Respiratory Syncytial Virus (RSV) or age 60 yrs+ (1 - 1-dose 75+ series)[facility]: 93-69-7356Evwzgnqormv Syncytial Virus Immunization: Risk, 60-74 Risk, or 75+ (1 - 1-dose 75+ series) Respiratory Syncytial Virus Immunization: Risk, 60-74 Risk, or 75+ (1 - 1-dose 75+ series)[facility] HospitalSt[facility]: 81-94-9275CIxA/Tdap/Td Vaccines (2 - Td or Tdap)DTaP/Tdap/Td Vaccines (2 - Td or Tdap)[facility] HealthcareStart: 88-19-7457Hqxb risk assessmentFalls Risk AssessmentIdioHealthStart: 72-87-3898Hxruskzxsbkr 65+ years Vaccine (1 of 1 - PPSV23)Pneumococcal 65+ years Vaccine (1 of 1 - PPSV23) [facility]: 03-03-5790Rxjqneisdamg vaccinationPneumococcal Vaccine Age 65+ (1 of 2 - PCV13)[facility] HospitalStart: 48-78-3232HNFWBYJMY AGE 65 AND OVER WITH 5YR LOOKBACK (#1)PNEUMOVAX AGE 65 AND OVER WITH 5YR LOOKBACK (#1) [facility]: 94-41-5309Joykkcoiwbn Syncytial Virus (RSV) or age 60 yrs+ (1 - 1-dose 60+ series)Respiratory Syncytial Virus (RSV) or age 60 yrs+ (1 - 1-dose 60+ series)[facility]: 1991 Administration of herpes zoster vaccineZoster Vaccines (1 of 2)[facility] HospitalStart: 98-69-6451Vducthab Vaccine (1 of 2)Shingles Vaccine (1 of 2)[facility]: 58-05-5193PAUDMTNX VACCINE (1 of 2)SHINGRIX VACCINE (1 of 2) [facility] Centertart: 81-21-4348Slgda microalbumin profileDTAP,TDAP,TD (1 - Tdap)[facility] Cent[facility]art: 33-41-6363Bqcqufyoo C antibody, confirmatory test Hepatitis C ScreeningOhioHealthStart: 24-90-8605IZZDI-19 Vaccine (1 of 2)COVID- 19 Vaccine (1 of 2)[facility] HospitalStart: 71-23-6261Qatpfzyokg depression screening assessmentKeenan Private Hospitalrt: 43-19-8141Epbhmkbjmq ScreenDepression ScreenBON [facility] Hospitalart: 07-14-8895Nnlkhrnmmu screening using PHQ-9 (Patient Health Questionnaire 9) scoreDepression Screening/Follow-Up (PHQ-2/9)[facility] Start: 08-39-2385UDWFX-19 VACCINE (1)COVID-19 VACCINE (1)[facility]art: 11-96-3989Rlweafy and physical examination, annual for health maintenance Wellness VisitOhioHealthStart: 02-09-1945Medicare Wellness VisitMedicare Wellness VisitOhioHealthStart: 27-60-9328Oqnoib Wellness Visit (AWV)Annual Wellness Visit (AWV)[facility] Hospitalart: 22-21-6536Iaxr risk assessmentFalls Risk AssessmentOhHealthStart: 62-83-5031Adltadzpj C screening Hepatitis C screenMagruder Hospital Well.ca Phone: End: 19-93-2682QKW profileANA profile Lab Routine Fatigue, unspecified type Leg edema Discoloration of skin of lower leg 1 Occurrences starting 12/14/2020 until 12/14/2020[facility] Phone: comment on above:1 Occurrences starting 12/14/2020 until 12/14/2020NA profileANA profile Lab Routine Fatigue, unspecified type Leg edema Discoloration of skin of lower leg 12/14/2020 9:40 AM EDTMOYE! Phone: End: 34-84-8139Bigd-Neutrophilic Cytoplasmic AntibodyAnti-Neutrophilic Cytoplasmic Antibody Lab Routine Fatigue, unspecified type Leg edema Discoloration of skin of lower leg 1 Occurrences starting 12/14/2020 until 12/14/2020Here@ [employer] Phone: comment on above:1 Occurrences starting 12/14/2020 until 12/14/2020nti-Neutrophilic Cytoplasmic AntibodyAnti-Neutrophilic Cytoplasmic Antibody Lab Routine Fatigue, unspecified type Leg edema Discoloration of skin of lower leg 12/14/2020 9:40 AM [employer] Phone: End: 83-45-2449Q-reactive proteinC-reactive protein Lab Routine One Time for 1 Occurrences starting 10/20/2020 until 10/20/2020Here@ [employer] Phone: comment on above:One Time for 1 Occurrences starting 10/20/2020 until 1C-reactive proteinC-reactive protein Lab STAT 10/20/2020 4:43 PM [employer] Phone: End: [phone] PHASE IICARDIAC PHASE II Card Rehab One Time for 1 Occurrences starting 02/02/2024 until 02/02/2024[facility]:One Time for 1 Occurrences starting 02/02/2024 until 02/02/2024 End: [id number] PHASE IICARDIAC PHASE II Card Rehab One Time for 1 Occurrences starting 02/19/2024 until 02/19/2024[facility] above:One Time for 1 Occurrences starting 02/19/2024 until 02/19/2024 End: [id number] PHASE IICARDIAC PHASE II Card Rehab One Time for 1 Occurrences starting 03/04/2024 until 03/04/2024[facility] above:One Time for 1 Occurrences starting 03/04/2024 until 03/04/2024 End: [id number] PHASE IICARDIAC PHASE II Card Rehab One Time for 1 Occurrences starting 03/23/2024 until 03/23/2024on [facility] HealthComment on above:One Time for 1 Occurrences starting 03/23/2024 until 03/23/2024 End: 87-82-8214YCDYRWE PHASE IICARDIAC PHASE II Card Rehab One Time for 1 Occurrences starting 03/29/2024 until 03/29/2024on SecInstagram Mercy HealthComment on above:One Time for 1 Occurrences starting 03/29/2024 until 03/29/2024 End: 94-85-2548WQSSUSP PHASE IICARDIAC PHASE II Card Rehab One Time for 1 Occurrences starting 03/30/2024 until 03/30/2024on Secours Mercy HealthComment on above:One Time for 1 Occurrences starting 03/30/2024 until 03/30/2024 End: 19-90-2391IZYGLUD PHASE IICARDIAC PHASE II Card Rehab One Time for 1 Occurrences starting 04/08/2024 until 04/08/2024on SecInstagram [facility]cy HealthComment on above:One Time for 1 Occurrences starting 04/08/2024 until 04/08/2024 End: 19-49-7530XBJMTAN PHASE IICARDIAC PHASE II Card Rehab One Time for 1 Occurrences starting 04/22/2024 until 04/22/2024on SecInstagram [facility]cy HealthComment on above:One Time for 1 Occurrences starting 04/22/2024 until 04/22/2024 Comprehensive metabolic 2000 panel - Serum or PlasmaMiddletown HospitalDermatopathology examDermatopathology exam Pathology and Cytology Timed Neoplasm of unspecified behavior of bone, soft tissue, and skin Release Upon Ordering for 1 Occurrences starting 03/08/2024[facility] Work Phone: comment on above:Release Upon Ordering for 1 Occurrences starting 03/08/2024 End: 07-50-3771EEUZ Complete 2D W Doppler W ColorECHO Complete 2D W Doppler W Color Echocardiography Routine Atrioventricular septal defect (AVSD) Aortic valve stenosis, etiology of cardiac valve disease unspecified 1 Occurrences starting 08/08/2020 until 08/08/2020[facility] Work Phone: comment on above:1 Occurrences starting 08/08/2020 until 08/08/2020KG 12 [employer] Work Phone: ekg 12 LeadEKG 12 Lead ECG Routine Vitamin D deficiency Encounter for lipid screening for cardiovascular disease Atrial flutter, unspecified type (HCC) 09/03/2021 7:42 AM [employer] Work Phone: ekg 12 LeadEKG 12 Lead ECG Routine Atrial flutter, unspecified type (HCC) Vitamin D deficiency Encounter for lipid screening for cardiovascular disease Aortic valve stenosis, etiology of cardiac valve disease unspecified 08/30/2022 9:39 AM [employer] Work Phone: electrophoresis Protein, Serum without Reflex to ImmunofixationElectrophoresis Protein, Serum without Reflex to Immunofixation Lab Routine Fatigue, unspecified type Leg edema Discoloration of skin of lower leg 12/14/2020 9:40 AM [employer] Work Phone: End: 89-16-6501Nwavik monitor 48 hourHolter monitor 48 hour Cardiac Services Routine Atrioventricular septal defect (AVSD) Aortic valve stenosis, etiology of cardiac valve disease unspecified 1 Occurrences starting 08/08/2020 until 08/08[facility] Work Phone: comment on above:1 Occurrences starting 08/08/2020 until 08/08/2020atient EducationHiatal Hernia (DC) Alvares's Esophagus (DC) [facility] Work Phone: Protein Electrophoresis, UrineProtein Electrophoresis, Urine Lab Routine Fatigue, unspecified type Leg edema Discoloration of skin of lower leg 12/14/2020 9:40 AM [employer] Work Phone: [facility] Immunizations Immunization DateImmunizationNotesCare GzdfxfckGpxiwrwx71-35-0794fvazroovt, high dose seasonal, preservative-freeFaizan Bragg MD Work Phone: [facility]05-05-2025zoster vaccine recombinantFaizan Bragg MD Work Phone: [facility]01-08-2025influenza, high dose seasonal, preservative-freeFaizan Bragg MD Work Phone: [facility]01-08-2025zoster vaccine recombinantFaizan Bragg MD Work Phone: [phone]01-08-2025influenza virus vaccine, unspecified formulationChristopher Bohach DPM Work Phone: [facility] CenterLkbccehfxs02-89-7179Kikkwou QIV High-Dose 65YR+ Faizan Bragg MD Work Phone: [facility]11-03-2023influenza virus vaccine, unspecified formulationChristopher Bohach DPM Work Phone: [facility] CenterAkdeydisne50-77-2930Kuvymfq QIV High-Dose 65YR+ Faizan Bragg MD Work Phone: [facility]11-12-2021Fluzone QIV High-Dose 65YR+Faizan Bragg MD Work Phone: [facility]11-01-2021 pneumococcal polysaccharide vaccine, 23 valentChristopher Bohach DPM Work Phone: [facility] CenterSplhtypufb38-01-7080LJQZJ-40 mRNA, Comirnaty (Pfizer)MD Faizan Bragg Work Phone: [facility]02-25-2021COVID-19 mRNA, Comirnatnaheed (Pfizer)MD Faizan Bragg Work Phone: [facility]02-04-2021COVID-19 mRNA, Comirnatnaheed (Pfizer)MD Faizan Bragg Work Phone: [facility]11-16-2020 pneumococcal polysaccharide vaccine, 23 valentGilliancia Bragg Other [facility]09-30-2020influenza virus vaccine, split virus (incl. purified surface antigen)Faizan Bragg Other [place] [employer] Other [id number] virus vaccine, unspecified formulationMiddletown Hospital11-11-2019influenza virus vaccine, split virus (incl. purified surface antigen)Faizan Bragg Other [employer] Other 292738-41-6903ipnlgctvr virus vaccine, unspecified formulationMiddletown Hospital11-11-2019pneumococcal conjugate vaccine, 13 valentMarcia Aaron Other [facility]10-29-2018influenza virus vaccine, split virus (incl. purified surface antigen)Faizan Bragg Other [facility] Other 671105-87-6165tbclkqsqm virus vaccine, unspecified formulationMiddletown Hospital10-29-2018Seasonal trivalent influenza vaccine, adjuvanted, preservative freeFaizan Bragg MD Work Phone: [facility]10-12-2017influenza virus vaccine, split virus (incl. purified surface antigen)Faizan Bragg Other [employer] Other 586404-23-6575gutfwnfil virus vaccine, unspecified formulationM[facility]let[facility] Hospital01-27-2017influenza, seasonal, injectableCameron Ditty Other [facility]10-01-2016diphtheria, tetanus toxoids and acellular pertussis vaccine, unspecified formulationFaizan Bragg Other [facility]10-01-2016tetanus toxoid, reduced diphtheria toxoid, and acellular pertussis vaccine, adsorbed [facility]08-29-2016pneumococcal polysaccharide vaccine, 23 valentCameron Ditty Other [facility]11-04-2013tetanus and diphtheria toxoids, adsorbed, preservative free, for adult use (5 Lf of tetanus toxoid and 2 Lf of diphtheria toxoid)Faizan Aaron Other [facility] HospitalNEGATED: Highlighted row has not occurred!92-09-2307sbjpqi vaccine, liveCameron Geraldiney Other [facility] Other Payers DatePayer CategoryPayerPolicy [id number] Health InsuranceMEDICAL MUTUAL [id number] [employer] [id number] 2021-Present [address] [place] [address].2.840.199367.1.13.693.2.7.3.534810.08765-65-7282Kdbdwar Care (unspecified)[facility]ICAL [facility] 1.2.840.384130.1.13.385.2.7.9.095677.485.59305-21-7236Ukvqvudgyngoimv2257 1.2.840.682143.1.13.385.2.7.3.382547.55200-56-4626Wivbnxxykmyahhlzjgs 1.2.840.332760.1.13.385.2.7.3.581966.315 [id number] Medicarexxxxxxxxxxx 1.2.840.286535.1.13.385.2.7.3.900603.315 2007Medicare [id number] 1.2.840.617487.1.13.385.2.7.3.989141.315 2007Medicare 1.2.840.904683.1.13.693.2.7.9.315611.567695.315 [id number] 1.2.840.444044.1.13.239.2.7.3.290655.315 [id number] 1960 [id number] 2.16.840.1.328636.3.[id number] 2..840.1.965130.3.579.2.87979-78-7232Ikhjqey77411541 2.16.840.1.296817.3.579.2.71867-87-4822Rspwraq5122722 2.16.840.1.895429.3.579.2.55036-42-5739Nbprhvg7045102 2.16.840.1.587594.3.579.2.08627-88-4028Aizayyp6945798 2.16.840.1.944550.3.579.2.04455-45-7322Ztkckyu1647945 2.16.840.1.023983.3.579.2.27292-51-4622Dumazxg4341917 2.16.840.1.105102.3.579.2.35118-20-4452Axinugw491023084 2.16.840.1.721902.3.579.2.89085-93-6252Nfovihu229816661 2.16.840.1.113430.3.579.2.88560-70-7229Ddiduth209544020 2.16.840.1.163733.3.579.2.46967-79-7847Xnruhpk91461878 2.16.840.1.130587.3.579.2.87771-37-6400Ewjaamg39041173 2.16840.1.680556.3.579.2.95190-12-9246Vnpjeof48512623 2.16840.1.963616.3.579.2.59489-54-9501Amhbngl58454838 2.16840.1.102827.3.579.2.19572-24-1074Qawstgt19033740 2.16840.1.178879.3.579.2.55644-42-0071Blrzrld41987258 2.16840.1.980496.3.579.2.25829-11-7855Eguvhnb15121684 2.16840.1.634413.3.579.2.17855-77-5300Gvzmovy51985994 2.16840.1.671942.3.579.2.17835-48-5286Ovtepgm25910632 2.16840.1.898739.3.579.2.48795-61-1331Scdcarz55440254 2.16.840.1.773814.3.579.2.55634-62-7467Emysiur56265008 2.16840.1.145204.3.579.2.03248-63-8954Xnwbrke17538637 2.16.840.1.389045.3.579.2.42824-20-7993Uneuhlb51926151 2.16.840.1.495248.3.579.2.22025-59-9297Omajdhc73289009 2..840.1.728421.3.579.2.32201-93-5068Atofwuj81672750 2.16.840.1.571534.3.579.2.95734-48-9153Gcajegp58560857 2.840.1.887094.3.579.2.32880-29-2455Cpugnti10118361 2.840.1.880428.3.579.2.94518-50-7877Ecjophy93355555 2.840.1.337566.3.579.2.71196-39-2297Idzjcal16285231 2.840.1.661367.3.579.2.10344-41-5113Gscutib86863703 2.840.1.883384.3.579.2.83365-25-4835Ghomica74018210 2.840.1.839344.3.579.2.00138-37-4745Ztzqynn98517692 2.840.1.323687.3.579.2.95812-14-2317Cnksmdf16827730 2.840.1.939426.3.579.2.54349-88-2737Poeteaz16984232 2.840.1.996692.3.579.2.52839-01-4653Oalcmoa17955744 2.840.1.171500.3.579.2.86621-57-0671Ophthgb25525917 2.16.840.1.976204.3.579.2.51764-22-2005Kbueass83833095 2.16.840.1.635493.3.579.2.49112-06-1147Iqmexuq09896685 2.16.840.1.770838.3.579.2.09160-47-7871Kxtoxdl41867963 2.16.840.1.917029.3.579.2.69676-97-1105Nuyxspm60094790 2.16.840.1.303765.3.579.2.40481-86-1906Yptmzxa03354324 2.16.840.1.502456.3.579.2.38480-86-6394Gcomutu50747628 2.16.840.1.318975.3.579.2.35258-20-7258Dipnnos81279644 2.16.840.1.133999.3.579.2.51743-61-3147Uiwexof12311436 2.16.840.1.892586.3.579.2.84331-37-3478Imfxhus65089443 2.16.840.1.123306.3.579.2.66911-87-4003Csdotcu00965270 2.16.840.1.276433.3.579.2.17530-42-1714Iweelpb03775533 2.16.840.1.816868.3.579.2.66657-84-9839Nmthbfc02274867 2.16.840.1.125446.3.579.2.97530-42-9417Xktrhrs84764829 2.16.840.1.920751.3.579.2.04249-09-6765Wpzkubz33946389 2.16.840.1.265663.3.579.2.11673-07-9507Kvfpvwv69050563 2.16.840.1.062745.3.579.2.58211-85-4026Rccsktu49666126 2.16.840.1.755890.3.579.2.98396-15-1438Afeenay58236719 2..840.1.373402.3.579.2.46201-03-4746Wqogmfe78654375 2.16.840.1.877111.3.579.2.11898-94-5567Fjainxe01910133 2..840.1.391835.3.579.2.76876-25-8084Ojasuui52019439 2.0.1.540609.3.579.2.88058-42-1902Wyexasj30104942 2.840.1.791873.3.579.2.90101-27-8286Opzgryb42495790 2..840.1.706447.3.579.2.64221-50-4834Puiprcs52348597 2..840.1.387941.3.579.2.74155-94-2945Vlsulwb29118698 2.840.1.628096.3.579.2.20950-37-7304Rvumsbk60579289 2.840.1.374443.3.579.2.73079-57-9878Pxppgnk41201589 2..840.1.237701.3.579.2.25359-70-6106Tcscwqw63431618 2..840.1.918008.3.579.2.52898-39-4868Ioaxsve74724867 2.840.1.879521.3.579.2.15082-41-4156Vorurve69868199 2.16.840.1.423442.3.579.2.801686-74-7093Kvukxmb58556686 2.16.840.1.496370.3.579.2.187998-99-1834Mcsmrhr11401893 2.16.840.1.047116.3.579.2.538856-40-0033Tokuvfy24293873 2.16.840.1.498320.3.579.2.889010-31-5789Agnmrvt9037605 2.16.840.1.747911.3.579.2.014276-18-8953Lcayxkz2592892 2.16.840.1.119052.3.579.2.723451-91-3448Tvcavjp3625438 2..840.1.695714.3.579.2.049034-89-2708Yfipaqg3793255 2.16.840.1.640919.3.579.2.399164-04-3246Vtktgpy2800480 2.16.840.1.156471.3.579.2.401454-70-8280Vgxhnzf4175694 2.16.840.1.515327.3.579.2.843884-07-9747Pnwtdpq50471225 2.0.1.400480.3.579.2.91947-72-5253Mhrvuix96843930 2.16.840.1.909646.3.579.2.173Self-paySelf Pay [id number] Health [id number] Social History DateTypeDetailFacilityStart: 12-30-2015 End: 56-50-8208Zfzaskm smoking status NHISNever smokerWright-Patterson Medical Centertart: 12-30-2015 End: 05-52-8664Yiumqsz intakeCurrent non-drinker of alcohol (finding)[place], [place]Start: 43-91-7369Dyh Assigned At [facility] DurhamNot on fileTriHealth Bethesda North Hospital, [place]Start: 09-18-2019 End: 24-11-7639Sgtnfzm use and exposureNever usedFrank[place], KYExposure to SARS-CoV-2 (event)Unable to assessFrank[place], [place]Start: 06-22-2021 End: 56-53-6331Aauxhtoe to SARS-CoV-2 (event)Not sureMagruder Hospital [employer] Work Phone: start: 57-62-3200Rqnppvt intakeEx-drinker (finding) [facility] Centertart: 11-15-2022 End: 36-80-6166Bzx Assigned At [facility] Centertart: 21-85-2533Kgj Assigned At [facility] HospitalTobacco smoking statusNo Smoking Status [facility] Hospitaltart: 11-15-2022 End: 52-63-5543Ktnbnyt of Social functionSYMMES HOSPITALIsothermal Systems Research [facility] HOSPITALHow often to you have a drink containing alcohol?NeverBON POMERENE HOSPITALStart: 96-79-7422Ygy many standard drinks containing alcohol do you have on a typical day?Patient does not drinkBON VETERANS HEALTH [facility] PHOENIXIsothermal Systems Research [facility]OSPITALStart: 25-38-7047Bfkfro identityIdentifies as male gender (finding)[facility]MM[facility] HOSPITALIsothermal Systems Research [facility]OSPITALStart: 88-01-0023Jvtuul orientationHeterosexual (finding)SYMMES HOSPITALIsothermal Systems Research [facility]OSPITALStart: 12-02-2023 End: 34-06-6978Iwtrqixgm beverage intakeLifetime non-drinker (finding)[facility] CenterStart: 05-10-2012 End: 10-73-9528EzdKrit (finding)[facility] HospitalNEGATED: Highlighted rowStart: NINFHistory of tobacco usePassive smokerNOMS Healthcare Goals DatePatient GoalDesired Activity/State Functional Status GvhcWjbscxgtefTgikxiJfboqrgy04-08-5937Hmtwmadpce StatusN/[facility]11-26-2024Functional StatusN/[facility]10-24-2024 Functional StatusN/[facility]10-22-2024Functional StatusN/[facility]09-18-2024Functional StatusN/[facility]08-26-2024Functional StatusN/[facility] 87-88-9472Qmvgksavbm StatusN/[facility]06-19-2024Functional StatusN/[facility]06-10-2024Functional StatusN/[facility]05-13-2024Functional StatusN/[facility] 98-79-8800Rnigyjtfpr StatusN/[facility]04-04-2024Functional StatusN/[facility] Clinical Notes 08-08-2020 to 01-27-2025 Note Date & YvotRdzkLjukpkpx56-50-4895 History of Present illness Narrative* Carol Gusman DPM - 01/27/2025 9:15 AM EDT Images from the original note were not included. Bret Yap is a 84 y.o. male presents with chief complaint of Toenail Care HPI: HPI SUBJECTIVE: Diabetic/Routine Nail Care: Location: nails on bilateral feet. Severity of symptoms: mild numb/tingle. Onset:gradual. Status:no change. Context: hard to trim, hard to reach. NAILS-thickened, discolored, pain. Relieved by debridement, filing down nails, clipping nails. History of ulcers/wounds: no. PCP Dr Faizan Bragg Date of Last visit 09-09-24 Aggravated by shoe gear, pressure Admits left 2 pain, but not as much as rt leg- veinous sx planned next mo per Dr Palma MEDICATIONS: Current Outpatient Medications Medication Instructions allopurinol [...] 3mm. 5Long, Thick, Crumbly, Deformed, Discolored, Brittle, Wdaeapgyxx7pg. Nail Pathology: Right Foot: 1 (great toe)Long, Thick, Crumbly, Deformed, Discolored, Brittle, Dystrophic 5 mm. 2Long, Thick, Crumbly, Deformed, Discolored, Brittle, Dystrophic 4mm. 3Long, Thick, Crumbly, Deformed, Discolored, Brittle, Dystrophic, 4mm. 4Long, Thick, Crumbly, Deformed, Discolored, Brittle, Dystrophic,3mm. 5Long, Thick, Crumbly, Deformed, Discolored, Brittle, Davrmjwalc5zw. Modifier: -Q9, Parastesias. Vascular: palp pulses bilat [...] Antibiotics Unknown Trimethoprim Other documented in this encounterKansas City [facility] Medical CenterOxkhwcodoo60-39-7053 NoteConsultation Note Patient is presenting with complaints of persistent cervical spondyloarthropathy as well as myofascial pain. We have been treating his lower cervical facets. On 12/03/2024 he underwent right cervical medial branch radiofrequency ablation targeting C5/6 and C6/7 facet joints under fluoroscopic guidance. He admits 90% improvement. He states he has 0/10 pain today. He only has right-sided stiffness inthe muscular region without any significant pain. He feels that this is a significant improvement and he is doing well. TON Score: 6% PHQ-2: 0 Patient denies any symptoms of [...] lower extremities. MSK/Special Testing: Negative Inderjit sign bilaterally. History, physical examination, and personal review of pertinent imaging results indicate a diagnosis of: -Cervical spondyloarthropathy -Myofascial pain Plan: - As needed right C5/6 and C6/7 facet joints under fluoroscopic guidance - 1 year follow-up Patient was counseled on the above diagnosis [...] call with any questions or concerns that arise.[facility] HospitalComment on above:Result Comment: Electronically Signed By: Daniel Hair DO.sam\Date and Time Signed: 01/06/25 08:36 [id number] Evaluation note* Diagnosis Onset Date Resolution Status Admit Date Dyslipidemia acuteSeptember 2024 9:25amEncounter for immunizationacuteSeptember 2024 9:25amEssential (primary) hypertensionacuteSeptember 2024 9:25amIron deficiency anemiaacuteSept2024 9:25amMedicare annual wellness visit, subsequentacuteDecember 08, 2024 9:25amChronic atrial fibrillationchronic December 08, 2024 9:25amCellulitis of right footacuteSept2024 10:27am [facility] Work Phone: 1(625) 153-804309-05-2025 NoteOperative Report Diagnosis: 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 Procedure: [...] radiofrequency needles were advanced under fluoroscopic guidance tothe appropriate anatomic landmarks. Needle tip position was [...] transferred to the recovery room in stable c ondition. Postprocedural evaluation revealed 5/5 bilateral upper extremity strength. Follow-up: The patient agrees to continue currently prescribed/recommended therapies.[facility] HospitalComment on above:Result Comment: Electronically Signed By: Daniel Hair DO\Date and Time Signed: 12/03/24 12:19 HBY07-03-6423 History of Present illness Narrative* CELSO EscamillaM - 11/18/2024 2:15 PM EDT Bret Yap is a 84 y.o. male presents with chief complaint of Follow-up (Lt toenail pain) HPI: HPI Pt has Lt 2nd toe pain from thickened callus. Pt states its been an ongoing issue for years andseems to be worsening. Pt on his feet often. Little change in last 2 visits. Pads help. Interest insurgery Review of Systems General: Chillsdenies. Feverdenies. Musculoskeletal: [...] 3mm. 5Long, Thick, Crumbly, Deformed, Discolored, Brittle, Slnbgmcpjo4ek. Nail Pathology: Right Foot: 1 (great toe)Long, Thick, Crumbly, Deformed, Discolored, Brittle, Dystrophic 5 mm. 2Long, Thick, Crumbly, Deformed, Discolored, Brittle, Dystrophic 4mm. 3Long, Thick, Crumbly, Deformed, Discolored, Brittle, Dystrophic, 4mm. 4Long, Thick, Crumbly, Deformed, Discolored, Brittle, Dystrophic,3mm. 5Long, Thick, Crumbly, Deformed, Discolored, Brittle, Uetvbjlafx1xm. Modifier: -Q9, Parastesias. 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 [...] Nose, Right Forearm - Anterior, Right Mid [place], Right SuperiorHelix (2), Right Zygomatic Area Inflamed seborrheic keratoses: [...] office if abnormal redness or tenderness develops atthe treatment site. Cryotherapy today, see procedure note. 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 [...] Nose, Right Forearm - Anterior, Right Mid [place], Right Superior [place] (2), Right Zygomatic Area Next Visit: 4 months documented in this encounterKansas City VA Medical CenterMamazyhiqv04-78-1602 History of Present illness Narrative* Mechelle Aden AuD - 10/05/2024 2:17 PM EDT Images from the original note were not included. [facility] [address] [place] [address] 5th Floor [facility] [address] Name: Bret Yap : 1940 Date: 10/05/24 History & Purpose of Evaluation: Bret Yap was seen today for audiologic assessment at the request of Sreedhar Zayas MD. Mr Yap's chief auditory complaint [...] [x] Tympanoplasty [] [] Hearing aids: binaural umzuevvg-sl-yyg-canal hearing aids from an outside facility Other: [...] to interfere with communication, especially in difficult listeningsituations. Recommendations: Medical follow up with Dr. Zayas. Further testing and/or re-evaluation at Dr. Zayas' discretion. Consistent use of hearing protection (earmuffs or earplugs specifically designed for hearing protection, rather than cotton) when in loud noise. Hearing protection was offered at today's visit but declined. Mr. Yap stated that, although he doesn't always use it, he does have hearing protectionat home. Continued use of hearing aids with routine hearing aid care. Electronically Signed by: Phyllis Niño [facility] 10/05/24 2:17 PM Audiogram: documented in this qrmpspxdkSnukBxtslo53-75-4137 NoteOPG [address] [facility] () [facility] [address] [facility] MEDICAL OFFICE [facility] [address] Dept: [phone] Loc: [phone] Sreedhar Zayas MD Bret Yap 84 y.o. male [...] Allergies[2] Past Surgical History: Procedure Laterality Date NV CATH PLMT L HRT & ARTS W/NJX & ANGIO IMG S&I N/A 01/23/2024 Procedure: Left Heart Cath; Surgeon: Tres Álvarez MD; Location: [facility]; Service: Cardiovascular NV CATH PLMT L HRT & ARTS W/NJX & ANGIO IMG S&I N/A 01/23/2024 Procedure: Coronary Angiogram; Surgeon: Tres Álvarez MD; Location: [facility]; Service: Cardiovascular NV L HRT CATH W/NJX L VENTRICULOGRAPHY IMG S&I N/A 01/23/2024 Procedure: Left Ventriculogram; Surgeon: Tres Álvarez MD; Location: [facility]; Service: Cardiovascular ROTATOR CUFF REPAIR TONSILLECTOMY VASCULAR [...] and is agreeable to the treatment plan. --Sreedhar Zayas MD on 10/05/2024 at 4:40 PM [...] tablet (20 mg to (more content not included)...[facility] Zbgigzpnkc87-77-5079 History of Present illness Narrative* Sreedhar Zayas MD - 10/05/2024 2:11 PM EDT [facility] [address] [facility] (11) [facility] [address] [facility] MEDICAL OFFICE [facility] [id number] Dept: [phone] Loc: [phone] Sreedhar Zayas MD Bret Carringtonert 84 y.o. male Patient presents with a [...] Allergies[2] Past Surgical History: Procedure Laterality Date NV CATH PLMT L HRT & ARTS W/NJX & ANGIO IMG S&I N/A 01/23/2024 Procedure: Left Heart Cath; Surgeon: Tres Álvarez MD; Location: [facility]; Service: Cardiovascular NV CATH PLMT L HRT & ARTS W/NJX & ANGIO IMG S&I N/A 01/23/2024 Procedure: Coronary Angiogram; Surgeon: Tres Álvarez MD; Location: [facility]; Service: Cardiovascular NV L HRT CATH W/NJX L VENTRICULOGRAPHY IMG S&I N/A 01/23/2024 Procedure: Left Ventriculogram; Surgeon: Tres Álvarez MD; Location: [facility]; Service: Cardiovascular ROTATOR CUFF REPAIR TONSILLECTOMY VASCULAR [...] and is agreeable to the treatment plan. --Sreedhar Zayas MD on 10/05/2024 at 4:40 PM An electronic signature was used to authenticate this note. [1] Current Outpatient Medications: allopurinoL (ZYLOPRIM) 300 MG tablet, Take 1 (one) tablet (300 mg total) by mouth daily ., Disp: , Rfl: amLODIPine (NORVASC) 5 MG tablet, Take 0.5 (one-half) tablet (2.5 mg total) by mouth daily ., Disp:15 tablet, Rfl: 11 atorvastatin (LIPITOR) 10 MG [...] Activity Alcohol use: No Drug use: No * Domenica Prince, GREGORIO - 10/05/2024 2:02 PM EDT Review of Systems Constitutional: Negative. HENT: Positive for hearing loss. Eyes: Negative. Respiratory: Negative. Cardiovascular: Negative. Gastrointestinal: Negative. Endocrine: Negative. Genitourinary: Negative. Musculoskeletal: Positive for neck pain. Skin: Positive for wound (left knee cut - scabbed). Allergic/Immunologic: Negative. Neurological: Negative. Hematological: Bruises/bleeds easily. Psychiatric/Behavioral: Negative. documented in this [id number] History of Present illness Narrative* Carol Gusman DPM - 09/27/2024 2:00 PM EDT Subjective Patient ID: Bret Yap is [...] 3mm. 5Long, Thick, Crumbly, Deformed, Discolored, Brittle, [id number]. Nail Pathology: Right Foot: 1 (great toe)Long, Thick, Crumbly, Deformed, Discolored, Brittle, Dystrophic 5 mm. 2Long, Thick, Crumbly, Deformed, Discolored, Brittle, Dystrophic 4mm. 3Long, Thick, Crumbly, Deformed, Discolored, Brittle, Dystrophic, 4mm. 4Long, Thick, Crumbly, Deformed, Discolored, Brittle, Dystrophic,3mm. 5Long, Thick, Crumbly, Deformed, Discolored, Brittle, [id number]. Modifier: -Q9, Parastesias. Vascular: palp pulses bilat [...] consult if slow progress documented in this encounterKansas City VA Medical CenterRcuctwtekw92-08-3811 Chief complaint+Reason for visit Narrative* Chief Complaint Admit Date ear concerns, ENT referral? September 09 9:47am Wellness December 08, 2024 9:25am Reason for Visit Admit Date Perforation of right tympanic membrane J une 2024 9:47am Dyslipidemia December 08, 2024 9:25am Essential (primary) hypertension Septemb er 2024 9:25am Iron deficiency anemia December 08 9:25am [facility] Work Phone: 1(817) 958-612106-12-2025 Evaluation note* Diagnosis Onset Date Resolution Status Admit Date Perforation of right tympanic membrane acuteJune 2024 9:47amDyslipidemiaacuteSept2024 9:25amEssential (primary) hypertensionacuteSept2024 9:25amIron deficiency anemia acuteSept2024 9:25am [facility] Work Phone: 1(218) 515-586005-01-2025 History of Present illness Narrative* Carol Gusman DPM - 07/29/2024 2:15 PM EDT Subjective Patient ID: Bret Yap is a 84 y.o. male who presents for Foot Ulcer (R) and Follow-up (Rgtheel Ulcer). HPI Rgt Heel wound healed. Been [...] 4mm. 5Long, Thick, Crumbly, Deformed, Discolored, Brittle, [id number]. Nail Pathology: Right Foot: 1 (great toe)Long, Thick, Crumbly, Deformed, Discolored, Brittle, Dystrophic 5 mm. 2Long, Thick, Crumbly, Deformed, Discolored, Brittle, Dystrophic 5mm. 3Long, Thick, Crumbly, Deformed, Discolored, Brittle, Dystrophic, 4mm. 4Long, Thick, Crumbly, Deformed, Discolored, Brittle, Dystrophic,3mm. 5Long, Thick, Crumbly, Deformed, Discolored, Brittle, [id number]. Modifier: -Q9, Parastesias. Vascular: palp pulses bilat [...] every day x 1wk documented in this encounterKansas City VA Medical CenterEnfrhjwpaa36-21-6786 History of Present illness Narrative* Carol Gusman DPM - 07/15/2024 11:00 AM EDT Subjective Patient ID: Bret Yap [...] 4mm. 5Long, Thick, Crumbly, Deformed, Discolored, Brittle, [id number]. Nail Pathology: Right Foot: 1 (great toe)Long, Thick, Crumbly, Deformed, Discolored, Brittle, Dystrophic 5 mm. 2Long, Thick, Crumbly, Deformed, Discolored, Brittle, Dystrophic 5mm. 3Long, Thick, Crumbly, Deformed, Discolored, Brittle, Dystrophic, 4mm. 4Long, Thick, Crumbly, Deformed, Discolored, Brittle, Dystrophic,3mm. 5Long, Thick, Crumbly, Deformed, Discolored, Brittle, [id number]. Modifier: -Q9, Parastesias. Vascular: palp pulses bilat [...] leading to amputation reviewed documented in this encounterKansas City VA Medical CenterXynkgjmezc77-54-2290 History of Present illness Narrative* GABRIEL Ricketts - 06/14/2024 10:20 AM EDT Follow up Diagnosis: Eczematous Dermatitis Location: face [...] on the facebid prn for flares 2. 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 [...] Next Visit: as scheduled documented in this encounterKansas City VA Medical CenterFitwlpxcjt63-48-2805 History of Present illness Narrative* Carol Gusman, DPM - 05/13/2024 11:15 AM EST Subjective Patient ID: Bret Yap [...] 4mm. 5Long, Thick, Crumbly, Deformed, Discolored, Brittle, [id number]. Nail Pathology: Right Foot: 1 (great toe)Long, Thick, Crumbly, Deformed, Discolored, Brittle, Dystrophic 5 mm. 2Long, Thick, Crumbly, Deformed, Discolored, Brittle, Dystrophic 5mm. 3Long, Thick, Crumbly, Deformed, Discolored, Brittle, Dystrophic, 4mm. 4Long, Thick, Crumbly, Deformed, Discolored, Brittle, Dystrophic,3mm. 5Long, Thick, Crumbly, Deformed, Discolored, Brittle, [id number]. Modifier: -Q9, Parastesias. Vascular: palp pulses bilat [...] Lesion debrided left 2 documented in this encounterKansas City VA Medical CenterTxdahuqjll94-51-5844 History of Present illness Narrative* Randi Gunn, PT - 05/04/2024 1:18 PM EST 05/04/24 1307 Treatment Diagnosis Treatment Diagnosis 1 [...] mostly healthy lipid profile, except improve lowering SPD61-40 pts at the next lipid drawn TBD. Goal Status Met Progress Towards Goal pt not only maintained a healthy lipid profile but actually exceeded in doingso. his total cho, LDL, and Trig. all [...] goal met / pt documented in this encounterBon [facility]* Diagnosis Onset Date Resolution Status Admit Date Acute balanitis due to infection acuteJanuary 2024 10:38amChronic nasal congestionacuteJanuary 2024 10:38amDyspneaacuteJanuary 2024 10:38amUncircumcised maleacuteJanuary 2024 10:38amAcute balanitis due to infectionacuteFebruary 2024 8:52am Chronic nasal congestionacuteFebruary 2024 8:52amDyspneaacuteFebruary 2024 8:52amElevated PSAacuteFebruary 2024 8:52amChronic atrial fibrillation chronicFebruary 2024 8:52amNasal congestionacuteFebruary 2024 11:03am Post-nasal dripacuteFebruary 2024 11:03am [facility] Work Phone: 1(896) 594-400601-27-2025 History of Present illness Narrative* Randi Gunn, [...] mostly healthy lipid profile, except improve lowering SFQ09-96 pts at the next lipid drawn TBD. [...] meeting / pt documented in this encounterBon [facility]12-30-2024 History of Present illness Narrative* Andrew Hubbard RCP - 03/29/2024 10:18 AM EST 03/29/24 1013 Treatment Diagnosis Treatment Diagnosis 1 Angina Referral Date 01/26/24 Significant Cardiovascular History Chronic atrial fibrillation Individual Treatment Plan ITP Visit Type Re-assessment ITP Next Review Date 04/26/24 Visit #/Total Visits 20/36 EF% 50 % Risk Stratification High Supplemental [...] mostly healthy lipid profile, except improve lowering ARL01-30 pts at the next lipid drawn TBD. [...] meeting per pt documented in this encounterBon [facility]12-17-2024 Evaluation note* Diagnosis Onset Date Resolution Status Admit Date Bronchitis acuteDeceer 2023 10:05am [facility] Work Phone: [phone]) 167-109312-17-2024 Evaluation note* Diagnosis Onset Date Resolution Status Admit Date Bronchitis acuteDeceer 2023 10:05amAcute balanitis due to infectionacuteJanuary 2024 10:38amChronic nasal congestionacuteJanuary 2024 10:38amDyspnea acuteJanuary 2024 10:38amUncircumcised maleacuteJanuary 2024 10:38am Acute balanitis due to infectionacuteFebruary 2024 8:52amChronic nasal congestionacuteFebruary 2024 8:52amDyspneaacuteFebruary 2024 8:52am Elevated PSAacuteFebruary 2024 8:52amChronic atrial fibrillationchronic May 07, 2024 8:52am [facility] Work Phone: [phone]) 677-181912-11-2024 History of Present illness Narrative* Carol Gusman [...] 4mm. 5Long, Thick, Crumbly, Deformed, Discolored, Brittle, [id number]. Nail Pathology: Right Foot: 1 (great toe)Long, Thick, Crumbly, Deformed, Discolored, Brittle, Dystrophic 5 mm. 2Long, Thick, Crumbly, Deformed, Discolored, Brittle, Dystrophic 5mm. 3Long, Thick, Crumbly, Deformed, Discolored, Brittle, Dystrophic, 4mm. 4Long, Thick, Crumbly, Deformed, Discolored, Brittle, Dystrophic,3mm. 5Long, Thick, Crumbly, Deformed, Discolored, Brittle, [id number]. Modifier: -Q9, Parastesias. 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 [...] 1 year skin check documented in this encounterKansas City [facility] Medical CenterCsslxlvetj54-06-5235 NoteConsultation Note Patient is presenting with complaints [...] call with any questions or concerns that arise.[facility] HospitalComment on above:Result Comment: Electronically Signed By: Daniel Hair DO.sam\Date and Time Signed: 03/03/24 14:13 [id number] Evaluation + Plan noteExtracted from:Title:Chronic painAuthor:Daniel Hair DO.Date: 03/03/24 Patient is presenting with c omplaints of [...] questions or concerns that arise.[facility] 12-02-2024 History of Present illness Narrative* Andrew Hubbard RCP - 03/01/2024 12:40 PM EST 03/01/24 0935 [...] mostly healthy lipid profile, except improve lowering RMW62-01 pts at the next lipid drawn TBD. 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 MUTUAL 2ND / PT VERBALIZES UNDERSTANDING & ACCEPTANCE OFOWN FINANCIAL RESPONSIBILITY FOR OOP NOT COVERED Primary Diagnosis: STABLE ANGINA Onset: 01/23/24 Living Will: [x] Yes [] No On File: [] Yes [x] No [] N/A Durable Power of Clinical Psychologist: [x] Yes [] No Medical History Past Medical History: Diagnosis Date Atrial fibrillation (HCC) CAD (coronary artery disease) Complicated varicose veins COPD (chronic obstructive pulmonary disease) (HCC) GERD (gastroesophageal reflux disease) Gout Past Surgical History: Procedure Laterality Date COLONOSCOPY COLONOSCOPY N/A 11/15/2022 COLORECTAL CANCER SCREENING, HIGH RISK-DIAGNOSTIC performed by Janey Rivera DO at [facility] OR LEG SURGERY ROTATOR CUFF REPAIR Bilateral [...] carotid bruits. Monitor rhythm-AFIB RATE-CONTROLLED VR- 67 NV- INDET. QRS- 0.06 QT- 0.42 Ejection Fraction- [...] range, a [place] rating of perceived exertion and 16, duration of >30 - 50 [...] per patient's self report, food diary, and Aplb-ssrs-Ochmj screening survey / [x] Initial Goal [] Progressing to Goal [] Not Meeting--Needs Reinforcement [] Goal Met [] Goal Not Met To strive to eat < or = 30% of daily caloric intake of total fat and <10% of daily caloric saturated fat tracked by patient's self-report, food diary, and Tvpx-enqu-Nesod screening survey / [x]Initial Goal [] Progressing [...] Rehabilitation Physician Order Form Bret Yap 1940 [id number] 02/02/2024 [x] Phase 2 ECG Monitored Cardiac Rehabilitation [] PR [] Percutaneous Coronary Intervention [] Other: [] [...] Cardiac Rehab Staff documented in this encounterBon [facility]10-24-2024 Evaluation + Plan noteExtracted from:Title:chronic painAuthor:Daniel Hair DO.Date:01/22/24 Patient is presenting as a f ollow-up [...] questions or concerns that arise.[facility] 10-24-2024 NoteConsultation Note Patient is presenting as [...] call with any questions or concerns that arise.[facility] HospitalComment on above:Result Comment: Electronically Signed By: Daniel Hair DO.sam\Date and Time Signed: 01/22/24 11:16 [id number] NoteOperative Report Diagnosis: 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 Procedure: [...] The patient agrees to continue currently prescribed/recommended therapies.[facility] HospitalComment on above: Result Comment: Electronically Signed By: Daniel Hair DO\.br\Date and Time Signed: 01/20/24 10:19 [id number] Evaluation + Plan noteExtracted from: Title:chronic painAuthor:Daniel Hair DODate:12/17/23 Patient is presenting with h istory of [...] questions or concerns that arise.[facility] 09-03-2024 History of Present illness Narrative* Mohsensteffanie Fortino Gusman, DPM - 12/02/2023 10:15 AM EDT Subjective [...] Past Medical History: Diagnosis Date A-fib (CMS/HCC) GERD (gastroesophageal reflux disease) Gout HTN (hypertension) (CMS/HCC) Surgical Histories Past Surgical History: Procedure Laterality [...] 4mm. 5Long, Thick, Crumbly, Deformed, Discolored, Brittle, [id number]. Nail Pathology: Right Foot: 1 (great toe)Long, Thick, Crumbly, Deformed, Discolored, Brittle, Dystrophic 5 mm. 2Long, Thick, Crumbly, Deformed, Discolored, Brittle, Dystrophic 5mm. 3Long, Thick, Crumbly, Deformed, Discolored, Brittle, Dystrophic, 4mm. 4Long, Thick, Crumbly, Deformed, Discolored, Brittle, Dystrophic,3mm. 5Long, Thick, Crumbly, Deformed, Discolored, Brittle, [id number]. Modifier: -Q9, Parastesias. 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 Needle tip position was [...] Date:12/17/2023 09:45:00 AM Scheduled Provider:Daniel Hair DO Location:.[facility] Appointment Type:Pain Management - Follow Up (FT) [facility] [id number] Evaluation + Plan noteExtracted from:Title: Pain Managment Follow upAuthor:Denzel PACKER, AmandaDate:09/17/23 Impression and Plan Patient is an 83-year-old male with a past medical history significant for significant for cervicalspondylosis, neck pain and cervical stenosis. He presents [...] get from the previous injections I recommended pursuingright-sided medial branch RFA covering the C3-5 facet joints followed by the left side being done 2 weeks after. Procedure was discussed previous and benefits were discussed. Patient will follow-up 3weeks after both sides are done. He is requesting Valium for the procedure due to the uncomfortablenature. We will accommodate this. 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 Patient will follow- up within a week of the injection for reevaluation. Call clinic sooner if nec essary. In the meantime, he never picked up the prescription last time for amitriptyline. I will send this to his pharmacy. He will take 12.5 to 25 mg nightly to see if we can also give him some relief as hedoes a lot of difficulty sleeping. Patient will follow-up as above-mentioned. 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 Procedure: Bilateral diagnostic [...] Date:08/11/2023 08:00:00 AM Scheduled Provider:Heavenly Mahoney PA-C Location[facility] Appointment Type:Pain Management - Follow Up (FT) [facility]05-06-2024 Evaluation + Plan noteExtracted from: Title:Right cervical medial branch to target the C5/6 and C6/7 facets #1Author: Daniel Hair DODate:01/20/24 Diagnosis: 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 Procedure: Right diagnostic [...] Date:01/22/2024 10:15:00 AM Scheduled Provider:Daniel Hair DO Location:.[facility] Appointment Type:Pain Management - Follow Up (FT) [facility] 04-04-2024 Evaluation + Plan noteExtracted from:Title: chronic painAuthor:Daniel Hair DODate:07/03/23 Patient is presenting with c omplaints of [...] pain is purely axial in nature and isrelated to his cervical spondyloarthropathy, he has multilevel [...] questions or concerns that arise.[facility]03-04-2024 Evaluation + Plan noteExtracted from:Title:Bilateral cervical medial branch block for C3/4 and C4/5 facets #2Author:Daniel Hair DODate:09/08/23 Diagnosis: 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 Next, all levels werestimulated at 2Hz for motor stimulation at 2.0V with no upper extremity motor contractions. Next 0.5mL of 2.0% lidocaine was injected through each needle tip. Thereafter, radiofrequency lesioning wascarried out at 80 degrees for 80 seconds [...] to continue currently prescribed/recommended therapies.[facility] 01-12-2024 Evaluation note* Encounter Date Diagnosis Assessment Notes Treatment Notes Treatment Clinical Notes Mar, Visit for suture removal (ICD-10 - Z48.02) no charge, remainder of sutures removed. area cleaned w H202 and steristrips reapplied. [facility] Other 01-09-2024 Evaluation note* Encounter Date Diagnosis Assessment Notes Treatment Notes Treatment Clinical Notes Mar, Visit for suture removal (ICD-10 - Z48.02) Removed 3/4 of sutures from L 2nd and 3rd fingers. Steristrips applied to encourage complete closure of lacerations. Pt will return on 04/11 for remainder of sutures removed. [facility] Other 08-01-2023 Evaluation note* Encounter Date Diagnosis Assessment Notes Treatment Notes Treatment Clinical Notes Oct, PSA elevation (ICD-10 - R97.20) [facility] Other 04-11-2023 Evaluation note* Encounter Date Diagnosis Assessment Notes Treatment Notes Treatment Clinical Notes Jun, Bronchitis (ICD-10 - J40) Do not hold in a cough that brings up mucus. This type of cough helps clear mucus from your bronchial tree. If you smoke, you should quit. It will help your bronchial tree heal faster. Jun,Lower abdominal pain (ICD-10 - R10.30)Assess degree of constipation with KUB. Patient states he has been told in the past to take laxative or prunes juice for improvement. [facility] Other 04-03-2023 Evaluation note* Encounter Date Diagnosis Assessment Notes Treatment Notes Treatment Clinical Notes Jun, Bronchitis (ICD-10 - J40) Take medications as directed. Rest and increase fluid intake. Take meds with food to prevent stomach upset. Discussed CXR if symptoms do not improve. [facility] Other 02-22-2023 Evaluation note* Encounter Date Diagnosis [...] reviewed and amended by provider signed below. May,Left anterior knee pain (ICD-10 - M25.562)gave form for PT. He agrees to try steroids first May,Screening for prostate cancer (ICD-10 - Z12.5)requests screening blood test May,Essential (primary) hypertension (ICD-10 - I10)Due for labs on present meds. states he is fasting now. [facility] Other 08-17-2022 History of Present illness Narrative* SOFIA Calhoun - 11/14/2021 9:00 AM EDT Images from the original note were not included. [facility] Outpatient Occupational Therapy Daily Note Date: 11/14/2021 [...] on R hand Pain Rating: (0-10 scale) 110 Objective: Patient reports he was anticipating discharge from OT services at the start of today's session. Following today's session reports he would like to keep attending OT until he leaves for a trip on November 23. 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 Will continue to address goals and progress patient as able Modalities: Date Initiated Tx Modality [] Electrical Stim: x __ mins [] Biphasic [] Liberian Ramp: [] 2.0 [] 1.5 [] 1.0 [...] Time Frame for Short term goals: STG=LTG [employer]er Goals Time Frame for salvage determiner goals : 18 visits (11/30/21) Longterm Goal 1: Pt to increase R wrist extension to 45 degrees or more in order to engage in functional self care tasks LTG 1 Current Status:: 38 degrees extension (improved 2 degrees) LTG Goal 1 Status:: In progress [employer] As[employer]er Goal 2: Pt to increase R RD to 20 degrees or more to engage in functional self care tasks LTG 2 Current Status:: RD 0-20 LTG Goal 2 Status:: Met [employer] Goal 3: Pt to increase index MCP to 75 degrees or more to engage in functional self care tasks LTG 3 Current Status:: Index MCP 75 LTG Goal 3 Status:: Met [employer] Goal 4: Pt to touch all digits to DPC of R hand in order to make a fist LTG 4 Current Status:: unable to touch DPC (ring finger 2.4cm; middle finger 3cm; pinky 1cm & index 1cm from DPC) LTG Goal 4 Status:: In progress Longterm Goal 5: Pt to reduce R handed [...] Calhoun Date: 11/14/2021 documented in this encounterBON [place] Phone: 1(698) 906-892508-15-2022 History of Present illness Narrative* SOFIA Byrne - 11/12/2021 9:00 AM EDT Images from the original note were not included. [facility] Outpatient Occupational Therapy Daily Note Date: 11/12/2021 [...] mins @ 45 int [] Biphasic [] Liberian Ramp: [] 2.0 [] 1.5 [x] 1.0 [] 0.5 Cont/Rest: [] Cont [] 10/50 [x] 10/30 [] 10/10 Location: 2 pads placed on dorsum of [...] Time Frame for Short term goals: STG=LTG [employer] Goals Time Frame for correction goals : 18 visits (11/30/21) Longterm Goal 1: Pt to increase R wrist extension to 45 degrees or more in order to engage in functional self care tasks LTG 1 Current Status:: 38 degrees extension (improved 2 degrees) [employer]er Goal 2: Pt to increase R RD to 20 degrees or more to engage in functional self care tasks LTG 2 Current Status:: RD 0-20 LTG Goal 2 Status:: Met [employer]er Goal 3: Pt to increase index MCP to 75 degrees or more to engage in functional self care tasks LTG 3 Current Status:: Index MCP 75 LTG Goal 3 Status:: Met [employer] Goal 4: Pt to touch all digits to DPC of R hand in order to make a fist LTG 4 Current Status:: unable to touch DPC (ring finger 2.4cm; middle finger 3cm; pinky 1cm & index 1cm from DPC) LTG Goal 4 Status:: In progress Longterm Goal 5: Pt to reduce R handed [...] Byrne Date: 11/12/2021 documented in this encounterBON [facility] Work Phone: 1(523) 792-559708-12-2022 History of Present illness Narrative* Nelly Trevizo, OT - 11/09/2021 9:00 AM EDT Images from the original note were not included. 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 3x10 Completed to address right index [...] Time Frame for Short term goals: STG=LTG Longterm Goals Time Frame for correction goals : 18 visits (11/30/21) Longterm Goal 1: Pt to increase R wrist extension to 45 degrees or more in order to engage in functional self care tasks LTG 1 Current Status:: 38 degrees extension (improved 2 degrees) [employer] Goal 2: Pt to increase R RD to 20 degrees or more to engage in functional self care tasks LTG 2 Current Status:: RD 0-20 LTG Goal 2 Status:: Met [employer] Goal 3: Pt to increase index MCP to 75 degrees or more to engage in functional self care tasks LTG 3 Current Status:: Index MCP 75 LTG Goal 3 Status:: Met Longterm Goal 4: Pt to touch all digits to DPC of R hand in order to make a fist LTG 4 Current Status:: unable to touch DPC (ring finger 2.4cm; middle finger 3cm; pinky 1cm & index 1cm from DPC) LTG Goal 4 Status:: In progress [employer] Goal 5: Pt to reduce R handed [...] Cruz/Brian Date: 11/09/2021 documented in this [facility] Phone: [phone] 841-846608-10-2022 History of Present illness Narrative* Mary Brizuela OT - 11/07/2021 9:00 AM EDT Images from the original note were not included. 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 X10 beads 3x 1 drop, 0 drops [...] Time Frame for Short term goals: STG=LTG [employer] Goals Time Frame for salvage determiner goals : 18 visits (11/30/21) Longterm Goal 1: Pt to increase R wrist extension to 45 degrees or more in order to engage in functional self care tasks LTG 1 Current Status:: 38 degrees extension (improved 2 degrees) [employer] Goal 2: Pt to increase R RD to 20 degrees or more to engage in functional self care tasks LTG 2 Current Status:: RD 0-20 LTG Goal 2 Status:: Met [employer] Goal 3: Pt to increase index MCP to 75 degrees or more to engage in functional self care tasks LTG 3 Current Status:: Index MCP 75 LTG Goal 3 Status:: Met [employer] Goal 4: Pt to touch all digits to DPC of R hand in order to make a fist LTG 4 Current Status:: unable to touch DPC (ring finger 2.4cm; middle finger 3cm; pinky 1cm & index 1cm from DPC) LTG Goal 4 Status:: In progress Longterm Goal 5: Pt to reduce R handed [...] OTR/L Date: 11/07/2021 documented in this encounterBON [facility] Phone: [phone] History of Present illness Narrative* Mary Brizuela OT - 11/05/2021 9:00 AM EDT Images from the original note were not included. [facility] Outpatient Occupational Therapy Daily Note Date: 11/05/2021 Patient: Bret Yap : 1940 Referring Provider (secondary): Isrrael Greene MD Diagnosis: Rupture of extensor tendon of R ring & little finger OT Insurance Information: Medicare- 36 visits approved; will just need an updated POC after [id number] visits completed. Total # of Visits Approved: [...] Time Frame for Short term goals: STG=LTG Longterm Goals Time Frame for correction goals : 18 visits (11/30/21) Longterm Goal 1: Pt to increase R wrist extension to 45 degrees or more in order to engage in functional self care tasks LTG 1 Current Status:: 38 degrees extension (improved 2 degrees) LTG Goal 1 Status:: In progress Longterm Goal 2: Pt to increase R RD to 20 degrees or more to engage in functional self care tasks LTG 2 Current Status:: RD 0-20 LTG Goal 2 Status:: Met Longterm Goal 3: Pt to increase index MCP to 75 degrees or more to engage in functional self care tasks LTG 3 Current Status:: Index MCP 75 LTG Goal 3 Status:: Met [employer] Goal 4: Pt to touch all digits to DPC of R hand in order to make a fist LTG 4 Current Status:: unable to touch DPC (ring finger 2.4cm; middle finger 3cm; pinky 1cm & index 1cm from DPC) LTG Goal 4 Status:: In progress Longterm Goal 5: Pt to reduce R handed MCP edema to 10cm or less in order to make fist LTG 5 Current Status:: 20.6 cm at MCPs LTG Goal 5 Status:: In progress Time In: 900 Time Out: 945 Timed Coded Minutes: 45 Total Treatment Time: 45 SUKHJINDER Randhawa, OTR/L Date: 11/05/2021 [facility] Phone: [phone] History of Present illness Narrative* Mary Brizuela, OT - 11/02/2021 9:15 AM EDT Images from the original note were not included. [facility] Occupational Therapy Daily Note Date: 11/02/2021 Patient: Bret Yap : 1940 Referring Provider (secondary): Isrrael Greene MD Diagnosis: Rupture of extensor tendon of R ring & little finger Onset Date: 09/04/21 OT Insurance Information: Medicare- 36 visits approved; will just need an updated POC after [id number] visits completed. Total # of Visits Approved: [...] Time Frame for Short term goals: STG=LTG [employer] Goals Time Frame for correction goals : 18 visits (11/30/21) Longterm Goal 1: Pt to increase R wrist extension to 45 degrees or more in order to engage in functional self care tasks LTG 1 Current Status:: extension 36 degrees (improved 1 degree since 10.09.21) LTG Goal 1 Status:: In progress [employer] Goal 2: Pt to increase R RD to 20 degrees or more to engage in functional self care tasks LTG 2 Current Status:: RD 0-10 LTG Goal 2 Status:: In progress Longterm Goal 3: Pt to increase index MCP to 75 degrees or more to engage in functional self care tasks LTG 3 Current Status:: Index MCP 74 LTG Goal 3 Status:: In progress [employer] Goal 4: Pt to touch all digits to DPC of R hand in order to make a fist LTG 4 Current Status:: unable to touch DPC LTG Goal 4 Status:: In progress Longterm Goal 5: Pt to reduce R handed MCP edema to 10cm or less in order to make fist LTG 5 Current Status:: 21.5 cm at MCPs LTG Goal 5 Status:: In progress Time In: 915 Time Out: 1000 Timed Coded Minutes: 45 Total Treatment Time: 45 SUKHJINDER Randhawa, OTR/L Date: 11/02/2021 [facility] [employer] Phone: [phone] 311-290108-02-2022 History of Present illness Narrative* Mary Brizuela OT - 10/30/2021 9:45 AM EDT Images from the original note were not included. [facility] Outpatient Occupational Therapy Daily Note Date: 10/30/2021 Patient: Bret Yap : 1940 Onset Date: 09/04/21 OT Insurance Information: Medicare- 36 visits approved; will just need an updated POC after [id number] visits completed. Per Physician Order Total # [...] Time Frame for Short term goals: STG=LTG Longterm Goals Time Frame for salvage determiner goals : 18 visits (11/30/21) [employer] Goal 1: Pt to increase R wrist extension to 45 degrees or more in order to engage in functional self care tasks LTG 1 Current Status:: extension 36 degrees (improved 1 degree since 10.09.21) LTG Goal 1 Status:: In progress Longterm Goal 2: Pt to increase R RD to 20 degrees or more to engage in functional self care tasks LTG 2 Current Status:: RD 0-10 LTG Goal 2 Status:: In progress Longterm Goal 3: Pt to increase index MCP to 75 degrees or more to engage in functional self care tasks LTG 3 Current Status:: Index MCP 74 LTG Goal 3 Status:: In progress Longterm Goal 4: Pt to touch all digits to DPC of R hand in order to make a fist LTG 4 Current Status:: unable to touch DPC LTG Goal 4 Status:: In progress [employer] Goal 5: Pt to reduce R handed MCP edema to 10cm or less in order to make fist LTG 5 Current Status:: 21.5 cm at MCPs LTG Goal 5 Status:: In progress Time In: 945 Time Out: 1030 Timed Coded Minutes: 45 Total Treatment Time: 45 SUKHJINDER Randhawa, OTR/L Date: 10/30/2021 documented in [facility] [employer] Phone: [phone] History of Present illness Narrative* Mary Brizuela OT - 10/29/2021 9:15 AM EDT Images from the original note were not included. [facility] Occupational Therapy Daily Note Date: 10/29/2021 [...] Pain: 0 Goals Short Term Goals STG=LTG Longterm Goals Time Frame for correction goals : 18 visits (11/30/21) Longterm Goal 1: Pt to increase R wrist extension to 45 degrees or more in order to engage in functional self care tasks LTG 1 Current Status:: extension 36 degrees (improved 1 degree since 10.09.21) LTG Goal 1 Status:: In progress [employer] Goal 2: Pt to increase R RD to 20 degrees or more to engage in functional self care tasks LTG 2 Current Status:: RD 0-10 LTG Goal 2 Status:: In progress [employer] Goal 3: Pt to increase index MCP to 75 degrees or more to engage in functional self care tasks LTG 3 Current Status:: Index MCP 74 LTG Goal 3 Status:: In progress Longterm Goal 4: Pt to touch all digits to DPC of R hand in order to make a fist LTG 4 Current Status:: unable to touch DPC LTG Goal 4 Status:: In progress [employer] Goal 5: Pt to reduce R handed MCP edema to 10cm or less in order to make fist LTG 5 Current Status:: 21.5 cm at MCPs LTG Goal 5 Status:: In progress Time In: 915 Time Out: 1000 Timed Coded Minutes: 45 Total Treatment Time: 45 SUKHJINDER Randhawa, OTR/L Date: 10/29/2021 documented in this encounterBON [facility] Phone: [phone] History of Present illness Narrative* Nelly Trevizo OT - 10/24/2021 2:30 PM EDT Images from the original note were not included. [facility] Out[facility] Occupational Therapy Daily Note Date: 10/24/2021 [...] Time Frame for Short term goals: STG=LTG Longterm Goals Time Frame for salvage determiner goals : 18 visits (11/30/21) [employer] Goal 1: Pt to increase R wrist extension to 45 degrees or more in order to engage in functional self care tasks LTG 1 Current Status:: extension 36 degrees (improved 1 degree since 10.09.21) LTG Goal 1 Status:: In progress Longterm Goal 2: Pt to increase R RD to 20 degrees or more to engage in functional self care tasks LTG 2 Current Status:: RD 0-10 LTG Goal 2 Status:: In progress [employer] Goal 3: Pt to increase index MCP to 75 degrees or more to engage in functional self care tasks LTG 3 Current Status:: Index MCP 74 LTG Goal 3 Status:: In progress Longterm Goal 4: Pt to touch all digits to DPC of R hand in order to make a fist LTG 4 Current Status:: unable to touch DPC LTG Goal 4 Status:: In progress [employer] Goal 5: Pt to reduce R handed MCP edema to 10cm or less in order to make fist LTG 5 Current Status:: 21.5 cm at MCPs LTG Goal 5 Status:: In progress Time In: 1430 Time Out: 1515 Timed Coded Minutes: 45 Total Treatment Time: 45 NAHUN Cruz/Brian Date: 10/24/2021 documented in this encounterBON [facility] Phone: [phone] [facility] History of Present illness Narrative* Nelly Trevizo OT - 10/19/2021 9:15 AM EDT Images from the original note were not included. [facility] Outpatient Occupational Therapy Daily Note Date: 10/19/2021 Patient: Bret Yap : 1940 Referring Provider (secondary): Isrrael Greene MD Diagnosis: Rupture of extensor tendon of R ring & little finger Onset Date: 09/04/21 OT Insurance Information: Medicare- 36 visits approved; will just need an updated POC after [id number] visits completed. Total # of Visits Approved: [...] Time Frame for Short term goals: STG=LTG Longterm Goals Time Frame for correction goals : 4 visits 10/19/2021) [employer] Goal 1: Pt to increase R wrist extension to 45 degrees or more in order to engage in functional self care tasks LTG 1 Current Status:: extension 36 degrees (improved 1 degree since 10.09.21) LTG Goal 1 Status:: Not Met [employer] Goal 2: Pt to increase R RD to 20 degrees & R UD to 25 degrees or more to engage in functional self care tasks LTG 2 Current Status:: RD 0-10 and UD 0-25 (met UD goal) LTG Goal 2 Status:: Partially met Longterm Goal 3: Pt to increase index MCP to 75 degrees or more to engage in functional self care tasks LTG 3 Current Status:: Index MCP 74 LTG Goal 3 Status:: Not Met [employer] Goal 4: Pt to touch all digits to DPC of R hand in order to make a fist LTG 4 Current Status:: unable to touch DPC LTG Goal 4 Status:: Not Met [employer] Goal 5: Pt to reduce R handed MCP edema to 10cm or less in order to make fist LTG 5 Current Status:: 21.5 cm at MCPs LTG Goal 5 Status:: Not Met Time In: 914 Time Out: 1000 Timed Coded Minutes: 45 Total Treatment Time: 45 NAHUN Cruz/Brian Date: 10/19/2021 documented in this encounterBON [facility] Phone: [phone] History of Present illness Narrative* Nelly Trevizo OT - 10/17/2021 9:15 AM EDT Images from the original note were not included. [facility] Occupational Therapy Daily Note Date: 10/17/2021 Patient: Bret Yap : 1940 Referring Provider (secondary): Isrrael Greene MD Diagnosis: Rupture of extensor tendon of R ring & little finger Onset Date: 09/04/21 OT Insurance Information: Medicare- 36 visits approved; will just need an updated POC after [id number] visits completed. Total # of Visits Approved: [...] PROM to right digits/wrist. 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 and was able [...] MCP 67 LTG Goal 3 Status:: Updated [employer] Goals Time Frame for salvage determiner goals : 4 visits 10/19/2021) Longterm Goal 1: Pt to increase R wrist extension to 45 degrees or more in order to engage in functional self care tasks LTG 1 Current Status:: extension 35 degrees LTG Goal 1 Status:: Updated Longterm Goal 2: Pt to increase R RD to 20 degrees & R UD to 25 degrees or more to engage in functional self care tasks LTG 2 Current Status:: RD 0-15 & UD 0-20(lost 4 degrees of UD in 2 weeks) LTG Goal 2 Status:: Updated [employer] Goal 3: Pt to increase index MCP to 75 degrees or more to engage in functional self care tasks LTG 3 Current Status:: Index MCP 67 LTG Goal 3 Status:: Updated Longterm Goal 4: Pt to touch all digits to DPC of R hand in order to make a fist LTG 4 Current Status:: unable to touch DPC LTG Goal 4 Status:: Updated [employer] Goal 5: Pt to reduce R handed MCP edema to 10cm or less in order to make fist LTG 5 Current Status:: 21.2cm at MCPs LTG Goal 5 Status:: Updated Time In: 914 Time Out: 1000 Timed Coded Minutes: 45 Total Treatment Time: 45 NAHUN Cruz/Brian Date: 10/17/2021 [facility] Work Phone: [phone] History of Present illness Narrative* Mary Brizuela OT - 10/16/2021 9:45 AM EDT Images from the original note were not included. [facility] Occupational Therapy Daily Note Date: 10/16/2021 Patient: Bret Yap : 1940 Referring Provider (secondary): Isrrael Greene MD Diagnosis: Rupture of extensor tendon of R ring & little finger Onset Date: 09/04/21 OT Insurance Information: Medicare- 36 visits approved; will just need an updated POC after [id number] visits completed. Total # of Visits Approved: [...] pt using 18/18 initial prescribed sessions using [id number] approved visits for year. Plan to update [...] Time Frame for Short term goals: STG=LTG [employer] Goals Time Frame for correction goals : 4 visits 10/19/2021) Longterm Goal 1: Pt to increase R wrist extension to 45 degrees or more in order to engage in functional self care tasks LTG 1 Current Status:: extension 35 degrees LTG Goal 1 Status:: Updated Longterm Goal 2: Pt to increase R RD to 20 degrees & R UD to 25 degrees or more to engage in functional self care tasks LTG 2 Current Status:: RD 0-15 & UD 0-20(lost 4 degrees of UD in 2 weeks) LTG Goal 2 Status:: Updated Longterm Goal 3: Pt to increase index MCP to 75 degrees or more to engage in functional self care tasks LTG 3 Current Status:: Index MCP 67 LTG Goal 3 Status:: Updated Longterm Goal 4: Pt to touch all digits to DPC of R hand in order to make a fist LTG 4 Current Status:: unable to touch DPC LTG Goal 4 Status:: Updated Longterm Goal 5: Pt to reduce R handed MCP edema to 10cm or less in order to make fist LTG 5 Current Status:: 21.2cm at MCPs LTG Goal 5 Status:: Updated Time In: 945 Time Out: 1030 Timed Coded Minutes: 45 Total Treatment Time: 45 SUKHJINDER Randhawa, OTR/l Date: 10/16/2021 documented in this encounterBON [facility] [employer] Phone: [phone] History of Present illness Narrative* Mary Brizuela OT - 10/12/2021 9:15 AM EDT Images from the original note were not included. [facility] Out[facility] Occupational Therapy Daily Note Date: 10/12/2021 Patient: Bret Yap : 1940 Referring Provider (secondary): Isrrael Greene MD Diagnosis: Rupture of extensor tendon of R ring & little finger OT Insurance Information: Medicare- 36 visits approved; will just need an updated POC after [id number] visits completed. Total # of Visits Approved: [...] Time Frame for Short term goals: STG=LTG [employer] Goals Time Frame for salvage determiner goals : 4 visits 10/19/2021) [employer] Goal 1: Pt to increase R wrist extension to 45 degrees or more in order to engage in functional self care tasks LTG 1 Current Status:: extension 35 degrees LTG Goal 1 Status:: Updated Longterm Goal 2: Pt to increase R RD to 20 degrees & R UD to 25 degrees or more to engage in functional self care tasks LTG 2 Current Status:: RD 0-15 & UD 0-20(lost 4 degrees of UD in 2 weeks) LTG Goal 2 Status:: Updated [employer] Goal 3: Pt to increase index MCP to 75 degrees or more to engage in functional self care tasks LTG 3 Current Status:: Index MCP 67 LTG Goal 3 Status:: Updated Longterm Goal 4: Pt to touch all digits to DPC of R hand in order to make a fist LTG 4 Current Status:: unable to touch DPC LTG Goal 4 Status:: Updated Longterm Goal 5: Pt to reduce R handed MCP edema to 10cm or less in order to make fist LTG 5 Current Status:: 21.2cm at MCPs LTG Goal 5 Status:: Updated Time In: 918 Time Out: 1000 Timed Coded Minutes: 42 Total Treatment Time: 42 SUKHJINDER Kirkpatrick, OTR/L documented [facility] [employer] Phone: [phone] History of Present illness Narrative* Mary Brizuela OT - 10/05/2021 3:00 PM EDT Images from the original note were not included. [facility] Occupational Therapy Daily Note Date: 10/05/2021 [...] fist STG Goal 4 Status:: Not Met [employer] Goals Time Frame for correction goals : 6 weeks (10/09/2021) Longterm Goal 1: Pt to increase R wrist flexion to 25 degrees or more & R wrist extension to 45 degrees or more in order to engage in functional self care tasks LTG 1 Current Status:: flexion 0-28 & extenion 0-30- flexion met LTG Goal 1 Status:: Partially met Longterm Goal 2: Pt to increase R RD to 20 degrees & R UD to 25 degrees or more to engage in functional self care tasks LTG 2 Current Status:: RD 0-15 & UD 0-24 LTG Goal 2 Status:: In progress [employer] Goal 3: Pt to increase R supination to 70 degrees or more & pronation to 75 degrees or more to engage in functional self care tasks LTG 3 Current Status:: sup 0-85 & pronation 0-90 LTG Goal 3 Status:: Met [employer] Goal 4: Pt to increase index MCP [...] met LTG Goal 4 Status:: Partially met Longterm Goal 5: Pt to increase index PIP [...] PIP LTG Goal 5 Status:: Partially met [employer] Goal 6: Pt to increase index DIP to 30 degrees or more; middle DIP to 35 degrees or more;ring DIP to 35 degrees or more & pinky DIP to 35 degrees or more to engage in functional self care tasks Longterm Goal 7: Pt to complete R hand 9 hole peg test in 30 seconds or less to engage in functional fine motor tasks Time In: 1505 Time Out: 1545 Timed Coded Minutes: 40 Total Treatment Time: 40 SUKHJINDER Randhawa, Date: 10/05/2021 documented in [facility] [employer] Phone: [phone] Evaluation note* Encounter Date Diagnosis Assessment Notes Treatment Notes Treatment Clinical Notes Sep, Iron deficiency anemia (ICD-10 - D50.9) Sep,arretts esophagus (ICD-10 - K22.70) Sep,GERD (gastroesophageal reflux disease) (ICD-10 - K21.9) [employer] Other 07-05-2022 History of Present illness Narrative* Mary Brizuela OT - 10/02/2021 2:45 PM EDT Images from the original note were not included. [facility] Occupational Therapy Daily Note Date: 10/02/2021 [...] fist STG Goal 4 Status:: Not Met Longterm Goals Time Frame for salvage determiner goals : 6 weeks (10/09/2021) Longterm Goal 1: Pt to increase R wrist flexion to 25 degrees or more & R wrist extension to 45 degrees or more in order to engage in functional self care tasks LTG 1 Current Status:: flexion 0-28 & extenion 0-30- flexion met LTG Goal 1 Status:: Partially met [employer] Goal 2: Pt to increase R RD to 20 degrees & R UD to 25 degrees or more to engage in functional self care tasks LTG 2 Current Status:: RD 0-15 & UD 0-24 LTG Goal 2 Status:: In progress Longterm Goal 3: Pt to increase R supination to 70 degrees or more & pronation to 75 degrees or more to engage in functional self care tasks LTG 3 Current Status:: sup 0-85 & pronation 0-90 LTG Goal 3 Status:: Met [employer] Goal 4: Pt to increase index MCP [...] met LTG Goal 4 Status:: Partially met [employer] Goal 5: Pt to increase index PIP [...] PIP LTG Goal 5 Status:: Partially met Longterm Goal 6: Pt to increase index DIP to 30 degrees or more; middle DIP to 35 degrees or more;ring DIP to 35 degrees or more & pinky DIP to 35 degrees or more to engage in functional self care tasks Time In: 1450 Time Out: 1530 Timed Coded Minutes: 40 Total Treatment Time: 40 SUKHJINDER Randhawa, OTR/L Date: 10/02/2021 documented [facility] [employer] Phone: [phone] History of Present illness Narrative* Mary Brizuela OT - 09/26/2021 2:45 PM EDT Images from the original note were not included. 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 Assessment Assessment: Continued w/ paraffin/STM/scar [...] fist STG Goal 4 Status:: Not Met Longterm Goals Time Frame for salvage determiner goals : 6 weeks (10/09/2021) Longterm Goal 1: Pt to increase R wrist flexion to 25 degrees or more & R wrist extension to 45 degrees or more in order to engage in functional self care tasks LTG 1 Current Status:: flexion 0-28 & extenion 0-30- flexion met LTG Goal 1 Status:: Partially met [employer] Goal 2: Pt to increase R RD to 20 degrees & R UD to 25 degrees or more to engage in functional self care tasks LTG 2 Current Status:: RD 0-15 & UD 0-24 LTG Goal 2 Status:: In progress [employer] Goal 3: Pt to increase R supination [...] met LTG Goal 4 Status:: Partially met [employer] Goal 5: Pt to increase index PIP [...] PIP LTG Goal 5 Status:: Partially met Longterm Goal 6: Pt to increase index DIP to 30 degrees or more; middle DIP to 35 degrees or more;ring DIP to 35 degrees or more & pinky DIP to 35 degrees or more to engage in functional self care tasks Longterm Goal 7: Pt to complete R hand 9 hole peg test in 30 seconds or less to engage in functional fine motor tasks Time In: 1445 Time Out: 1530 Timed Coded Minutes: 45 Total Treatment Time: 45 SUKHJINDER Randhawa, OTR/L Date: 09/26/2021 documented [facility] [employer] Phone: [phone] History of Present illness Narrative* Mary Brizuela OT - 09/25/2021 9:15 AM EDT Images from the original note were not included. [facility]ational Therapy Daily Note Date: 09/25/2021 Patient: Bret Yap : 1940 Referring Provider (secondary): Isrrael Greene MD Diagnosis: Rupture of extensor tendon of R ring & little finger Onset Date: 09/04/21 OT Insurance Information: Medicare- 36 visits approved; will just need an updated POC after [id number] visits completed. Total # of Visits Approved: [...] fist STG Goal 4 Status:: Not Met Longterm Goals Time Frame for salvage determiner goals : 6 weeks (10/09/2021) Longterm Goal 1: Pt to increase R wrist flexion to 25 degrees or more & R wrist extension to 45 degrees or more in order to engage in functional self care tasks LTG 1 Current Status:: flexion 0-28 & extenion 0-30- flexion met LTG Goal 1 Status:: Partially met Longterm Goal 2: Pt to increase R RD to 20 degrees & R UD to 25 degrees or more to engage in functional self care tasks LTG 2 Current Status:: RD 0-15 & UD 0-24 LTG Goal 2 Status:: In progress [employer] Goal 3: Pt to increase R supination to 70 degrees or more & pronation to 75 degrees or more to engage in functional self care tasks LTG 3 Current Status:: sup 0-85 & pronation 0-90 LTG Goal 3 Status:: Met [employer] Goal 4: Pt to increase index MCP [...] met LTG Goal 4 Status:: Partially met [employer] Goal 5: Pt to increase index PIP [...] PIP LTG Goal 5 Status:: Partially met Longterm Goal 6: Pt to increase index DIP to 30 degrees or more; middle DIP to 35 degrees or more;ring DIP to 35 degrees or more & pinky DIP to 35 degrees or more to engage in functional self care tasks Longterm Goal 7: Pt to complete R hand 9 hole peg test in 30 seconds or less to engage in functional fine motor tasks Time In: 920 Time Out: 1000 Timed Coded Minutes: 40 Total Treatment Time: 40 SUKHJINDER Randhawa, OTR/L Date: 09/25/2021 documented in [facility] [employer] Work Phone: [phone]) 253-786306-24-2022 History of Present illness Narrative* Mary Brizuela, OT - 09/21/2021 8:30 AM EDT Images from the original note were not included. [facility] Outpatient Occupational Therapy Daily Note Date: 09/21/2021 Patient: Bret Yap : 1940 Referring Provider (secondary): Isrrael Greene MD Diagnosis: Rupture of extensor tendon of R ring & little finger Onset Date: 09/04/21 OT Insurance Information: Medicare- 36 visits approved; will just need an updated POC after [id number] visits completed. Total # of Visits Approved: [...] fist STG Goal 4 Status:: In progress Longterm Goals Time Frame for salvage determiner goals : 6 weeks (10/09/2021) [employer] Goal 1: Pt to increase R wrist flexion to 25 degrees or more & R wrist extension to 45 degrees or more in order to engage in functional self care tasks Longterm Goal 2: Pt to increase R RD to 20 degrees & R UD to 25 degrees or more to engage in functional self care tasks [employer] Goal 3: Pt to increase R supination to 70 degrees or more & pronation to 75 degrees or more to engage in functional self care tasks [employer] Goal 4: Pt to increase index MCP to 75 degrees or more; middle MCP to 65 degrees or more;Ring MCP to 45 degrees or more; & pinky MCP to 45 degrees or more to engage in functional self care tasks [employer] Goal 5: Pt to increase index PIP to 65 degrees or more; middle PIP to 60 degrees or more;ring PIP to 70 degrees or more & pinky PIP to 55 degrees or more to engage in functional self care tasks Longterm Goal 6: Pt to increase index DIP to 30 degrees or more; middle DIP to 35 degrees or more;ring DIP to 35 degrees or more & pinky DIP to 35 degrees or more to engage in functional self care tasks Longterm Goal 7: Pt to complete R hand 9 hole peg test in 30 seconds or less to engage in functional fine motor tasks Time In: 835 Time Out: 915 Timed Coded Minutes: 40 Total Treatment Time: 40 SUKHJINDER Randhawa, OTR/L Date: 09/21/2021 [facility] [employer] Phone: [phone]) 532-584906-22-2022 History of Present illness Narrative* Mary Brizuela OT - 09/19/2021 9:00 AM EDT Images from the original note were not included. [facility] Outpatient Occupational Therapy Daily Note Date: 09/19/2021 [...] fist STG Goal 4 Status:: In progress [employer] Goals Time Frame for salvage determiner goals : 6 weeks (10/09/2021) Longterm Goal 1: Pt to increase R wrist flexion to 25 degrees or more & R wrist extension to 45 degrees or more in order to engage in functional self care tasks Longterm Goal 2: Pt to increase R RD to 20 degrees & R UD to 25 degrees or more to engage in functional self care tasks [employer] Goal 3: Pt to increase R supination to 70 degrees or more & pronation to 75 degrees or more to engage in functional self care tasks [employer] Goal 4: Pt to increase index MCP to 75 degrees or more; middle MCP to 65 degrees or more;Ring MCP to 45 degrees or more; & pinky MCP to 45 degrees or more to engage in functional self care tasks [employer] Goal 5: Pt to increase index PIP to 65 degrees or more; middle PIP to 60 degrees or more;ring PIP to 70 degrees or more & pinky PIP to 55 degrees or more to engage in functional self care tasks Longterm Goal 6: Pt to increase index DIP to 30 degrees or more; middle DIP to 35 degrees or more;ring DIP to 35 degrees or more & pinky DIP to 35 degrees or more to engage in functional self care tasks Longterm Goal 7: Pt to complete R hand 9 hole peg test in 30 seconds or less to engage in functional fine motor tasks Time In: 900 Time Out: 945 Timed Coded Minutes: 45 Total Treatment Time: 45 SUKHJINDER Randhawa, OTR/L Date: 09/19/2021 documented in this encounterB[facility] Phone: [phone] History of Present illness Narrative* Mary Brizuela OT - 09/12/2021 2:00 PM EDT Images from the original note were not included. [facility] Outpatient Occupational Therapy Daily Note Date: 09/12/2021 [...] fist STG Goal 4 Status:: In progress [employer] Goals Time Frame for correction goals : 6 weeks (10/09/2021) Longterm Goal 1: Pt to increase R wrist flexion to 25 degrees or more & R wrist extension to 45 degrees or more in order to engage in functional self care tasks [employer] Goal 2: Pt to increase R RD to 20 degrees & R UD to 25 degrees or more to engage in functional self care tasks [employer] Goal 3: Pt to increase R supination to 70 degrees or more & pronation to 75 degrees or more to engage in functional self care tasks [employer] Goal 4: Pt to increase index MCP to 75 degrees or more; middle MCP to 65 degrees or more;Ring MCP to 45 degrees or more; & pinky MCP to 45 degrees or more to engage in functional self care tasks [employer] Goal 5: Pt to increase index PIP to 65 degrees or more; middle PIP to 60 degrees or more;ring PIP to 70 degrees or more & pinky PIP to 55 degrees or more to engage in functional self care tasks Longterm Goal 6: Pt to increase index DIP to 30 degrees or more; middle DIP to 35 degrees or more;ring DIP to 35 degrees or more & pinky DIP to 35 degrees or more to engage in functional self care tasks Longterm Goal 7: Pt to complete R hand 9 hole peg test in 30 seconds or less to engage in functional fine motor tasks Time In: 1400 Time Out: 1445 Timed Coded Minutes: 40 Total Treatment Time: 45 SUKHJINDER Randhawa, OTR/L Date: 09/12/2021 documented in [facility] [employer] Phone: [phone] 747-911906-13-2022 History of Present illness Narrative* Mary Brizuela OT - 09/10/2021 9:15 AM EDT Images from the original note were not included. [facility] Outpatient Occupational Therapy Daily Note Date: 09/10/2021 Patient: Bret Yap : 1940 Referring Provider (secondary): Isrrael Greene MD Diagnosis: Rupture of extensor tendon of R ring & little finger OT Insurance Information: Medicare- 36 visits approved; will just need an updated POC after [id number] visits completed. 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 : 6 weeks (10/09/2021) [employer] Goal 1: Pt to increase R wrist flexion to 25 degrees or more & R wrist extension to 45 degrees or more in order to engage in functional self care tasks [employer] Goal 2: Pt to increase R RD to 20 degrees & R UD to 25 degrees or more to engage in functional self care tasks [employer] Goal 3: Pt to increase R supination to 70 degrees or more & pronation to 75 degrees or more to engage in functional self care tasks [employer] Goal 4: Pt to increase index MCP to 75 degrees or more; middle MCP to 65 degrees or more;Ring MCP to 45 degrees or more; & pinky MCP to 45 degrees or more to engage in functional self care tasks Longterm Goal 5: Pt to increase index PIP to 65 degrees or more; middle PIP to 60 degrees or more;ring PIP to 70 degrees or more & pinky PIP to 55 degrees or more to engage in functional self care tasks Longterm Goal 6: Pt to increase index DIP to 30 degrees or more; middle DIP to 35 degrees or more;ring DIP to 35 degrees or more & pinky DIP to 35 degrees or more to engage in functional self care tasks [employer] Goal 7: Pt to complete R hand 9 hole peg test in 30 seconds or less to engage in functional fine motor tasks Time In: 915 Time Out: 1000 Timed Coded Minutes: 40 Total Treatment Time: 45 SUKHJINDER Randhawa, OTR/L Date: 09/10/2021 documented [facility] [employer] Phone: [phone] 587-288306-08-2022 History of Present illness Narrative* Mary Brizuela OT - 09/05/2021 10:15 AM EDT Images from the original note were not included. [facility] Outpatient Occupational Therapy Daily Note Date: 09/05/2021 Patient: Bret Yap : 1940 Referring Provider (secondary): Isrrael Greene MD Diagnosis: Rupture of extensor tendon of R ring & little finger Onset Date: 09/04/21 OT Insurance Information: Medicare- 36 visits approved; will just need an updated POC after [id number] visits completed. 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 : 6 weeks (10/09/2021) Longterm Goal 1: Pt to increase R wrist flexion to 25 degrees or more & R wrist extension to 45 degrees or more in order to engage in functional self care tasks [employer] Goal 2: Pt to increase R RD to 20 degrees & R UD to 25 degrees or more to engage in functional self care tasks Longterm Goal 3: Pt to increase R supination to 70 degrees or more & pronation to 75 degrees or more to engage in functional self care tasks [employer] Goal 4: Pt to increase index MCP to 75 degrees or more; middle MCP to 65 degrees or more;Ring MCP to 45 degrees or more; & pinky MCP to 45 degrees or more to engage in functional self care tasks Longterm Goal 5: Pt to increase index PIP to 65 degrees or more; middle PIP to 60 degrees or more;ring PIP to 70 degrees or more & pinky PIP to 55 degrees or more to engage in functional self care tasks [employer] Goal 6: Pt to increase index DIP to 30 degrees or more; middle DIP to 35 degrees or more;ring DIP to 35 degrees or more & pinky DIP to 35 degrees or more to engage in functional self care tasks Longterm Goal 7: Pt to complete R hand 9 hole peg test in 30 seconds or less to engage in functional fine motor tasks Time In: 1015 Time Out: 1100 Timed Coded Minutes: 40 Total Treatment Time: 45 SUKHJINDER Randhawa, OTR/L Date: 09/05/2021 documented [facility] [employer] [facility] Phone: [phone] History of Present illness Narrative* Mary Brizuela OT - 09/04/2021 9:30 AM EDT Images from the original note were not included. 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 How does the patient/guardian prefer [...] DIP 0-70: 0-23 Left Hand Strength - Cap Parts Cutter (lbs) Handle Setting 2: 53, 54, 59= [...] hand in order to make a fist [employer] Goals Time Frame for correction goals : 6 weeks (10/09/2021) [employer] Goal 1: Pt to increase R wrist flexion to 25 degrees or more & R wrist extension to 45 degrees or more in order to engage in functional self care tasks Longterm Goal 2: Pt to increase R RD to 20 degrees & R UD to 25 degrees or more to engage in functional self care tasks Longterm Goal 3: Pt to increase R supination to 70 degrees or more & pronation to 75 degrees or more to engage in functional self care tasks Longterm Goal 4: Pt to increase index MCP to 75 degrees or more; middle MCP to 65 degrees or more;Ring MCP to 45 degrees or more; & pinky MCP to 45 degrees or more to engage in functional self care tasks [employer] Goal 5: Pt to increase index PIP to 65 degrees or more; middle PIP to 60 degrees or more;ring PIP to 70 degrees or more & pinky PIP to 55 degrees or more to engage in functional self care tasks Longterm Goal 6: Pt to increase index DIP to 30 degrees or more; middle DIP to 35 degrees or more;ring DIP to 35 degrees or more & pinky DIP to 35 degrees or more to engage in functional self care tasks Longterm Goal 7: Pt to complete R hand 9 hole peg test in 30 seconds or less to engage in functional fine motor tasks Time In: 937 Time Out: 1037 Timed Coded Minutes: 0 Total Treatment Time: 60 SUKHJINDER Randhawa, OTR/L 09/04/2021 documented in this encounterB[facility] Phone: [phone] Miscellaneous Notes* Telephone Encounter - Miranda Holland [...] scheduling an appointment with their office. Miranda Holland Pss * Telephone Encounter - Miranda Holland Pss - 07/05/2021 2:12 PM EDT Called [facility]ain spoke with Mary. She states they have received referral and their event promotions coordinator will be calling patient soon to schedule. Miranda Holland Pss * Telephone Encounter - Miranda Holland Pss - 07/04/2021 10:11 AM EDT Called [facility]ili Swain spoke with Mary. She states she has not yet gone thru all of their faxes at this time and states for me to call back to check on status of this referral. Miranda Holland Pss * Telephone Encounter - Prabha [facility] - 07/02/2021 1:06 PM EDT Records faxed. * Telephone Encounter - Miranda Amalia Pss - 07/02/2021 12:46 PM EDT Dominique: Information ready for you. Miranda Holland Pss * Telephone Encounter - Jatinder Nelida - 07/02/2021 11:55 AM EDT See GI for scopes Patient would prefer to stay locally. Dominique/Ty: Can you please refer patient to [facility]? Thanks! Jatinder Krause documented in [facility] encounterG[facility]04-[facility]22 Miscellaneous Notes* Telephone Encounter - Aure Riddle RN - 07/13/2021 3:12 PM EDT Pt calls and leaves a voicemail stating he isn't able to get in with a local GI doctor until late August and is asking if this is okay. Reviewed previous telephone encounter and Dr Manzanares is ok with this. Pt notified. Aure Riddle RN documented in this encounterGlen[facility]igh Hospital04-08-2022 Miscellaneous Notes* Telephone Encounter - Ketan Manzanares MD - 07/06/2021 4:55 PM EDT End of August is fine. No worries. Thanks, JESSICA * Telephone Encounter - Ruben Tellez RN - 07/06/2021 4:28 PM EDT JESSICA: Pt is not able to get in [...] he comes for a followup on 07-17-21. ThanksJESSICA * Telephone Encounter - Ruben Tellez RN - 07/06/2021 1:33 PM EDT Received message from pt wanting to know lab results and if colonoscopy was still needed. SJK: Any message for pt regarding lab results? Proceed with GI referral? Ruben Tellez RN documented in this encounterGlenbeigh Hospital04-04-2022 NoteHNO ID: [id number] Author: Ketan Manzanares MD Service: ? Author [...] substance abuse. He lives with his in [place], [place] MEDICATIONS AND ALLERGIES: Reviewed PHYSICAL EXAM [...] which included preparing to see the patient, [id number] patient care, co (more content not included)...[facility]04-04-2022 History of Present illness Narrative* Ketan Manzanares [...] substance abuse. He lives with his in [place], [place] MEDICATIONS AND ALLERGIES: Reviewed PHYSICAL EXAM [...] which included preparing to see the patient, [id number] patient care, completing clinical documentation, obtaining and/or reviewing separately obtained history, performing a medically appropriate examination, counseling and educating the pat ient/family/caregiver, ordering medications, tests, or procedures, independently interpreting results (not separately reported) and communicating results to the patient/family/caregiver. documented in this encounterGlenbeigh Hospital05-20-2021 Physician Hospital Discharge summaryCLINICAL SUMMARY Please take this summary document to your follow up appointments. [facility] 08/17/20 13:08 [address] [place]. [address] PATIENT INFORMATION Name: BRET YAP Address: [address] [address] Age: 80 Years Phone: [phone] : 1940 12:00 MRN: [id number] Sex: Male Race: White Ethnicity: Not Hispan/Lat Admitted From: Clinic or [facility] Medical Service: Orthopedic Surgery Nurse Unit/Bed: (CO) 2NAN 0216-01 Admit Date: 08/14/2020 08:28 PCP: Faizan Bragg MD PHYSICIANS INVOLVED WITH CARE Attending Physicians: Norman Michelle MD Orthopaedic Surg Admitting Physician: Viviana DE LA PAZ , Norman Torres - Orthopaedic Surg Primary Care Physician:Aaron DE LA PAZ , Faizan Waite,[facility], - Consults: Logan DE LA PAZ , Abdifatah - Internal Medicine Kimmie DE LA PAZ , Kamran Ingram - Internal Medicine Josh DE LA PAZ , Torrey E - Internal Medicine GenLouis, [facility] - Internal Medicine Problems Active Gout GERD [...] mg/8.6 mg Tab (Senokot-S (more content not included)...[facility]05-20-2021 Hospital Progress notePatient: BRET YAP MRN: ([id number] Age: 80 years Sex: Male : 1940 Associated Diagnoses: None Author: Kamran Burks MD Assessment Assessment Diagnosis: DDD (degenerative disc disease), lumbar ([id number] M51.36, Working, Medical). Plan DDD, s/p PLIF [...] Tenderness Neuro/Psych - A (more content not included)...[facility] 08-17-2020 Hospital Progress notePatient: BRET YAP MRN: ([id number])- [id number] Age: 80 years Sex: Male : 1940 [...] on the hallway on a couple of occasions.[facility]05-19-2021 [facility] Progress notePatient: BRET YAP MRN: [id number] Age: 80 years Sex: Male : 1940 Associated Diagnoses: None Author: Kamran Burks MD Comments Reviewed KUB from today. Does have [...] and clear liquid diet until actual formed [facility]05-19-2021 [facility] Progress notePatient: BRET YAP MRN: ([id number] Age: 80 years Sex: Male : 1940 Associated Diagnoses: None Author: Kamran Burks MD Assessment Assessment Diagnosis: DDD (degenerative disc disease), lumbar ([id number] M51.36, Working, Medical). Plan DDD, s/p PLIF [...] Begin date: 08/15 06:47 (more content not included)...[facility]05-18-[facility] Hospital Progress notePatient: BRET YAP MRN: ([id number] Age: 80 years Sex: Male : 1940 Associated Diagnoses: None Author: Kimmie DE LA PAZ , Kamran Ingram Comments Notified by nursing staff the patient is somewhat of a firm distended abdomen and still reported noflatus. He did have a suppository and MOM and senna earlier. He refused MiraLAX as previously ordered day of surgery last evening. Will check KUB and initiate neostigmineMount [facility] Progress notePatient: BRET YAP Age: 80 years Sex: Male : 1940 Associated Diagnoses: None Author: Kamran Burks MD Assessment Assessment Diagnosis: DDD (degenerative disc disease), lumbar ([id number] M51.36, Working, Medical). Plan DDD, s/p PLIF [...] 2 L/min Pain Score: 7 (08/15 04:17) EXAM: General - No Apparent Distress Skin [...] Magnesium No result HEMATOLOGY (more content not included)...[facility]05-17-[facility] Hospital Progress notePatient: BRET YAP MRN: ([id number] Age: 80 years Sex: Male : 1940 Associated Diagnoses: None Author: Kimmie DE LA PAZ , Kamran Ingram Assessment Assessment Diagnosis: DDD (degenerative disc disease), lumbar ([id number] M51.36, Working, Medical). Plan DDD, s/p PLIF [...] Telemetry in PACU - SR Discussed with TIRE BUILDER Health Status Allergies Allergic Reactions (Selected) NKA [...] 67.61 mL/min (08/14 09:42) (more content not included)...[facility]05-17-2021 Anesthesiology Preoperative evaluation and management notePatient: BRET YAP MRN: [id number] Age: 80 years Sex: Male : 1940 [...] EKG - sent to Dr Vergara in [place], [place]. doctor told patient he is ok [...] % 07/25/20 11:29, Basophil (more content not included)...[facility]05-11-2021 History of Present illness Narrative* Divina Garcia RCP - 08/08/2020 9:30 AM EDT The patient was educated on the use of a holter monitor. The patient's comprehension was high. The patient was able to verbalize recall. The patient was instructed on how and when to return the monitor. documented in this encounterHere@ Networks Phone: [email or web address] note* Diagnosis Atrioventricular septal defect (AVSD) Ventricular septal defect Aortic valve stenosis, etiology of cardiac valve disease unspecified Atrial flutter, unspecified type (HCC) Abnormal EKG Nonspecific abnormal electrocardiogram (ECG) (EKG) Encounter for lipid screening for cardiovascular disease Vitamin D deficiency Unspecified vitamin D deficiency documented in this encounter [employer] Phone: [email or web address] note* Diagnosis Abnormal EKG Nonspecific abnormal electrocardiogram (ECG) (EKG) Pre-op evaluation Preoperative examination, unspecified Encounter for lipid screening for cardiovascular disease Fatigue, unspecified type documented in this encounter [employer] Phone: evaluation note* Diagnosis Atrioventricular septal defect (AVSD) Ventricular septal defect Aortic valve stenosis, etiology of cardiac valve disease unspecified documented in this encounter [employer] Phone: [email or web address] note* Diagnosis Vasculitis (HCC)- Primary Arteritis, unspecified Essential hypertension Unspecified essential hypertension Peripheral edema Edema Chronic obstructive pulmonary disease, unspecified COPD type (HCC) documented in this encounter [employer] Phone: [email or web address] note* Diagnosis Atrioventricular septal defect (AVSD) Ventricular septal defect Aortic valve stenosis, etiology of cardiac valve disease unspecified Atrial flutter, unspecified type (HCC) Abnormal EKG Nonspecific abnormal electrocardiogram (ECG) (EKG) Encounter for lipid screening for cardiovascular disease Vitamin D deficiency Unspecified vitamin D deficiency Fatigue, unspecified type documented in this encounter [employer] Phone: [email or web address] note* Diagnosis Abnormal EKG Nonspecific abnormal electrocardiogram (ECG) (EKG) documented in this encounter [employer] Phone: [email or web address] note* Diagnosis Abnormal EKG Nonspecific abnormal electrocardiogram (ECG) (EKG) documented in this encounter [employer] Phone: [email or web address] note* Diagnosis Fatigue, unspecified type Leg edema Edema Discoloration of skin of lower leg Other symptoms involving skin and integumentary tissues documented in this encounter [employer] Phone: [email or web address] note* Diagnosis Normocytic anemia- Primary Anemia, unspecified MGUS (monoclonal gammopathy of unknown significance) Monoclonal paraproteinemia documented [facility] encounter [facility]* Diagnosis Vitamin D deficiency Unspecified vitamin D deficiency Encounter for lipid screening for cardiovascular disease Atrial flutter, unspecified type (HCC) documented in this encounter [employer] Phone: [email or web address] noteNo assessment information [facility] Work Phone: Evaluation note* Diagnosis Suspected COVID-19 virus infection Cough Runny nose Other diseases of nasal cavity and sinuses documented in this encounter [employer] Phone: [email or web address] noteNo InformationNoCoatesville [facility] Md[facility] Other Evaluation note* Diagnosis Atrial flutter, unspecified type (HCC) Vitamin D deficiency Unspecified vitamin D deficiency Encounter for lipid screening for cardiovascular disease Aortic valve stenosis, etiology of cardiac valve disease unspecified Colon wall thickening Other specified disorder of intestines documented in this encounter [employer] Phone: evaluation note* Diagnosis Atrial flutter, unspecified type (HCC) Vitamin D deficiency Unspecified vitamin D deficiency Encounter for lipid screening for cardiovascular disease Aortic valve stenosis, etiology of cardiac valve disease unspecified Fatigue, unspecified type Colon wall thickening Other specified disorder of intestines documented in this encounter [employer] Phone: evaluation note* Diagnosis Atrial flutter, unspecified type (HCC) Vitamin D deficiency Unspecified vitamin D deficiency Colon wall thickening Other specified disorder of intestines documented in this encounter [employer] Phone: evaluation note* Diagnosis Onset Date Resolution Status Essential (primary) hypertension acuteScreening PSA (prostate specific antigen)acute [facility] Work Phone: Evaluation note* Diagnosis Shortness of breath documented in this encounter [employer]* Diagnosis Atrial flutter, unspecified type (HCC) Vitamin D deficiency Unspecified vitamin D deficiency Encounter for lipid screening for cardiovascular disease Fatigue, unspecified type documented in this encounter [employer] [facility]* Diagnosis Onset Date Resolution Status Essential (primary) hypertension acuteMedicare annual wellness visit, subsequentacutePost-nasal dripacute Screening PSA (prostate specific antigen)acuteBronchitisacute [facility] Work Phone: Evaluation note* Diagnosis Other specified dermatitis- Primary History of basal cell carcinoma Personal history of other malignant neoplasm of skin Personal history of squamous cell carcinoma of skin Personal history of other malignant neoplasm of skin Seborrheic keratosis Actinic keratosis Neoplasm of unspecified behavior of bone, soft tissue, and skin documented in this encounter [facility]Evaluation [facility]* Diagnosis Idiopathic progressive polyneuropathy- Primary Onychomycosis Dermatophytosis of nail documented in this encounter [facility]* Diagnosis Idiopathic progressive polyneuropathy- Primary Onychomycosis Dermatophytosis of nail documented in this encounter [facility] HealthcareEvaluation note* Diagnosis Atrial flutter, unspecified type (HCC) Vitamin D deficiency Unspecified vitamin D deficiency Encounter for lipid screening for cardiovascular disease Aortic valve stenosis, etiology of cardiac valve disease unspecified Fatigue, unspecified type documented in this encounter [employer] [facility]* Diagnosis Shortness of breath [facility]* Diagnosis Other specified dermatitis- Primary Actinic keratosis documented in this encounter [facility] HealthcareEvaluation note* Diagnosis Chest pain, unspecified type Shortness of breath Atrial flutter, unspecified type ([facility]) Encounter for lipid screening for cardiovascular disease Aortic valve stenosis, etiology of cardiac valve disease unspecified Vitamin D deficiency disease Unspecified vitamin D deficiency Other fatigue documented in this encounter [facility] HealthEvaluation note* Diagnosis Ulcer of right heel and midfoot, limited to breakdown of skin ([facility]/HCC)- Primary Idiopathic progressive polyneuropathy Onychomycosis Dermatophytosis of nail Abrasion of right heel with infection documented in this encounter [facility] HealthcareEvaluation note* Diagnosis Ulcer of right heel and midfoot, limited to breakdown of skin ([facility])- Primary Abrasion of right heel with infection documented in this encounter [facility] HealthcareEvaluation note* Diagnosis Elevated PSA Elevated prostate specific antigen (PSA) documented in this encounter [facility]Evaluation note* Diagnosis Idiopathic progressive polyneuropathy- Primary Onychomycosis Dermatophytosis of nail documented in this encounter [facility] HealthcareEvaluation note* Diagnosis Sensorineural hearing loss, bilateral- Primary [facility] Diagnosis Sensorineural hearing loss, bilateral- Primary Impaired auditory discrimination, bilateral [facility]* Diagnosis Actinic keratosis- Primary Inflamed seborrheic keratosis documented in this encounter [facility] HealthcareEvaluation note* Diagnosis Corns and callosities- Primary Idiopathic progressive polyneuropathy Hammer toe of left foot Hallux valgus of left foot Pain of toe of left foot documented in this encounter [facility] HealthcareEvaluation note* Diagnosis Shortness of breath Edema of right lower leg Edema of left foot documented in this encounter [facility] HealthEvaluation note* Diagnosis Chronic atrial fibrillation (HCC) Atrial fibrillation documented in this encounter [facility] HealthEvaluation note* Diagnosis Shortness of breath Edema of right lower leg Edema of left foot documented in this encounter [facility] HealthEvaluation note* Diagnosis Idiopathic progressive polyneuropathy- Primary Onychomycosis Dermatophytosis of nail Pain of toe of left foot Hammer toe of left foot Ulcer of left foot, limited to breakdown of skin ([facility]) documented in this encounter [facility] HealthcareEvaluation note* Diagnosis 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) Varicose veins of bilateral lower extremities with pain documented in this encounter [facility]am [facility]ccon[facility] HealthHistory and physical note Author Mik Amaya [facility] October 23, 2021 12:49pmNote Date/TimeJuly 2021 12:[place] [address] Gastroenterology H&P Signed Patient: Bret Yap MR#: [id number] : 1940 Acct:[id number] Age/Sex: 81 / M Adm Date: 2 Loc: Room: Type: [facility] Attending Dr: Mik Amaya MD Copies to: [...] signed by Mik Amaya MD> 10/23/21 1249 [facility] Work Phone: History general Narrative - Reported* Type Description Date Medical History venous insufficiency Surgical Historyrotator cuff tear repair bilateralSurgical Historyvein stripping and SEPS procedureSurgical HistoryEVLT Left [id number] HistorySclerotherapy Bilat [id number] HistorySclerotherapy Right LE/2010Surgical History Sclerotherapy Right LE03/2010Surgical HistoryEVLT right leg01/05/2016Surgical HistoryEVLT-LT LE05/24/2016Hospitalization [employer] Other Hisltfg general Narrative - Reported* Type Description Date Medical History venous insufficiency Surgical Historyrotator cuff tear repair bilateralSurgical Historyvein stripping and SEPS procedureSurgical HistoryEVLT Left [id number] HistorySclerotherapy Bilat [id number] HistorySclerotherapy Right LE/2010Surgical History Sclerotherapy Right LE/2010Surgical HistoryEVLT right leg01/05/2016Surgical HistoryEVLT-LT LE05/24/2016Surgical HistoryRight hand surgery tendon repair 07/2021Hospitalization [facility] Other Hospital course Narrative No data available for this section [facility]* Attachments The following attachments cannot be sent through Care Everywhere. * Edema: Leg and Ankle (Greenlandic) * Vasculitis: General Info (Greenlandic) * Hypertension: General Info (Greenlandic) * COPD: General Info ([place]ic) documented in this [facility] Work Phone: Hospital Discharge instructions No data available for this section [facility] No data available for this section [facility] CenterReason for referral (narrative)No reason for referral information availableZ[facility] Work Phone: Reason for visit NarrativePATIENT HERE AT THE REQUEST OF DR SEVILLA FOR EVALUATION & TREATMENT OF NORMOCYTIC ANEMIABay [facility] Other reason for visit Narrative* (Routine) - OpenSpecialty Diagnoses / ProceduresReferred By ContactReferred To Contact Diagnoses Chest pain, unspecified type Procedures Nuclear stress test with myocardial perfusion Wing Álvarez MD [address] [place] [address] Referral IDStatusReasonStknoxville DateExpiration DateVisits RequestedVisits [id number]/10/20249/ [facility] for visit Narrative* Cardiology (Routine) - Not Required - RTASpecialtyDiagnoses / ProceduresReferred By ContactReferred To ContactCardiology Diagnoses Chronic atrial fibrillation (HCC) Procedures Echo (TTE) complete (PRN contrast/bubble/strain/3D) NV ECHO TTHRC R-T 2D W/WOM-MODE COMPL SPEC&COLR D NV TTE W OR WO FOL WCON,DOPPLER Miesha Clark APRN - LIYA [address] [place] [address] Phone: tel: fax: Referral IDStatusKennaasonStknoxville DateExpiration DateVisits RequestedVisits [id number] Required - RTA [facility] for visit Narrative* Imaging (Emergency) - Not Required - RTASpecialtyDiagnoses / ProceduresReferred By ContactReferred To ContactCardiology Diagnoses Shortness of breath Edema of right lower leg Edema of left foot Procedures Vascular duplex lower extremity venous bilateral Vascular duplex lower extremity venous bilateral Miesha Clark APRN - CNP [address] [place] [id number] Phone: tel: fax: Referral IDStatusKennaasonStart DateExpiration DateVisits RequestedVisits [id number] Required - RTA [facility] Center[facility] Narrative* Other (Routine) - Not Required - RTASpecialtyDiagnoses / ProceduresReferred By ContactReferred To ContactCardiology Diagnoses 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) Varicose veins of bilateral lower extremities with pain Procedures Vascular duplex reflux venous insufficiency study bilateral Arturo Palma MD [address] [place] [address] [address] [place] [address] Phone: tel: fax: Referral IDStatusReasonStart DateExpiration DateVisits RequestedVisits [id number] Required - RTA [facility] Summary Purpose Family History No Family History Records Found Relationship Condition Age at Onset Recorded Date/T loraine father Malignant neoplasm Unknown Not SpecifiedPerforation of intestineUnknownbrotherParkinson's diseaseUnknown Relationship Condition Age at Onset Recorded Date/T loraine father Malignant neoplasm Unknown motherPerforation of intestineUnknownbrotherParkinson's diseaseUnknownbrother DeceasedUnknownParkinson's diseaseUnknownfatherDeceasedUnknownmotherDeceased Unknown Advance Directives No Advanced Directives Records FoundDocuments on File TypeDate RecordedPatient RepresentativeExplanationAdvance Directives and Living Will11/03/2019 8:51 AMTypeDate RecordedPatient RepresentativeExplanationACP- Advance DirectiveACP-Power of AttorneyTypeDate RecordedPatient Ed Educational Aide ExplanationAdvance Directives and Living Will11/03/2019 8:51 AMTypeDate Recorded Patient RepresentativeExplanationAdvance Directives and Living WillPower of AttorneyTypeDate RecordedPatient RepresentativeExplanationACP-Advance Directive ACP-Power of Clinical Psychologist Advance Directive Response Recorded Date/ Time Advance Directives No January 11:35am Advance Directive Response Recorded Date/ Time Advance Directives No January 10:35am Date ActivatedDate CymwyexbraxEaxoelnf57/25/2024 8:15 AM01/23/2024 10:43 AMDate ActivatedDate YpbgheuvmulVqdxmxog19/25/2024 8:15 AM10/ 10:43 AM Reason for Referral StatusReasonSpecialtyDiagnoses / ProceduresReferred By ContactReferred To ContactClosedRadiology Diagnoses Bilateral optic atrophy Procedures MR Brain/Orbit With And Without Contrast Nita Hernandez MD [address] [facility] [address] [place] [address] StatusReasonSpecialtyDiagnoses / ProceduresReferred By ContactReferred To ContactPending ReviewCardiology Diagnoses Atrioventricular septal defect (AVSD) Aortic valve stenosis, etiology of cardiac valve disease unspecified Atrial flutter, unspecified type (HCC) Abnormal EKG Encounter for lipid screening for cardiovascular disease Vitamin D deficiency Procedures EKG 12 Lead Wing Álvarez MD [address] [place] [address] StatusReasonSpecialtyDiagnoses / ProceduresReferred By ContactReferred To ContactClosedCardiology Diagnoses Atrioventricular septal defect (AVSD) Aortic valve stenosis, etiology of cardiac valve disease unspecified Procedures ECHO Complete 2D W Doppler W Color Wing Álvarez MD [address] [place] [address] StatusReasonSpecialtyDiagnoses / ProceduresReferred By ContactReferred To ContactClosed Diagnoses Atrioventricular septal defect (AVSD) Aortic valve stenosis, etiology of cardiac valve disease unspecified Procedures Holter monitor 48 hour Wing Álvarez MD [address] [place] [address] StatusReasonSpecialtyDiagnoses / ProceduresReferred By ContactReferred To ContactOpenCardiology Diagnoses Abnormal EKG Procedures EKG 12 Lead Wing Álvarez MD [address] [place] [address] SpecialtyDiagnoses / ProceduresReferred By ContactReferred To Contact Gastroenterology Diagnoses Normocytic anemia Procedures CONSULT TO GASTROENTEROLOGY OFFICE/OUTPATIENT [facility] 60-74 MINUTES Ketan Manzanares MD [address] [place], [place] [address] Referral IDStatusReasonStart DateExpiration DateVisits RequestedVisits [id number] Review PCP Requested Referral /[id number] / ProceduresReferred By ContactReferred To ContactCardiology Diagnoses Vitamin D deficiency Encounter for lipid screening for cardiovascular disease Atrial flutter, unspecified type (HCC) Procedures EKG 12 Lead Wing Álvarez MD [address] [place] [address] Referral IDStatusReasonStart DateExpiration DateVisits RequestedVisits [id number]/17/20225/[id number] / Procedures Referred By ContactReferred To ContactCardiology Diagnoses Atrial flutter, unspecified type (HCC) Vitamin D deficiency Encounter for lipid screening for cardiovascular disease Aortic valve stenosis, etiology of cardiac valve disease unspecified Procedures EKG 12 Lead Wing Álvarez MD [address] [place] [address] Referral IDStatusReasonStart DateExpiration DateVisits RequestedVisits [id number]/7/[id number] / ProceduresReferred By ContactReferred To Contact Diagnoses Shortness of breath Procedures Echo (TTE) complete (PRN contrast/bubble/strain/3D) NV ECHO TTHRC R-T 2D W/WOM-MODE COMPL SPEC&COLR D NV TTE W OR WO FOL WCON,DOPPLER Wing Álvarez MD [address] [place] [address] Referral IDStatusReasonStknoxville DateExpiration DateVisits RequestedVisits [id number] Required - RTA9// Assessments Diagnosis Bilateral optic atrophy Unspecified optic atrophy Diagnosis Compression fracture of thoracic vertebra, initial encounter, unspecified thoracic vertebral level (HCC) Closed head injury, initial encounter History of Present Illness * Georgeana Kate Brian, PT - 11/29/2019 2:00 PM EDT [facility] Evaluation Date: 11/29/2019 Patient: Bret Yap : 1940 Referring Practitioner: Dr. Asher Wilde Referral Date : 11/22/19 Diagnosis: M16.11; Right hip primary osteoarthritis Treatment Diagnosis: Back Pain Onset Date: 11/22/19(Referral) PT Insurance Information: [employer], [place] Total # of Visits Approved: 12 Per Physician Order Total # of Visits to Date: 1 Subjective Additional Pertinent Hx: Patient c/o pain that is intermittent in right low back and radiating to right buttock. Main c/o pain with standing and walking are limited by severe pain. Sitting and layingreleive pain. 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 Objective Spine Lumbar: forward flexion limited 50%, [...] correct body mechanics with lifting following education correction goals Time Frame for correction goals : 12 salvage determiner goal 1: Decrease pain right buttock 2/10 at worst x 3days salvage determiner goal 2: Patient to walk and stand for 30 minutes or longer without pain interfering correction goal 3: Improve functional activities with Oswestry score <8/45 Patient's Goal: Be able to stand and walk without right buttock pain interfering Timed Code Treatment Minutes: 15 Minutes Total Treatment Time: 45 Time In: 14:05 Time Out: 14:50 Kate Rivera, WARD Date: 11/29/2019 documented in this encounter* Gary Mcnamara PTA - 12/08/2019 8:00 AM EDT [facility] Daily Note Date: 12/08/2019 Patient Name: Bret Yap : 1940 (79 y.o.) Referring Practitioner: Dr. 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 Goals - Time Frame for salvage determiner goals : 12 salvage determiner goal 1: Decrease pain right buttock 2/10 at worst x 3days salvage determiner goal 2: Patient to walk and stand for 30 minutes or longer without pain interfering salvage determiner goal 3: Improve functional activities with Oswestry score <8/45 Post Treatment Pain: 1/10 Time In: 0800 Time Out : 0836 Timed Code Treatment Minutes: 36 Minutes Total Treatment Time: 36 Minutes Gary Mcnamara PTA Date: 12/08/2019 documented in this encounter* Gary Mcnamara PTA - 12/10/2019 8:15 AM EDT [facility] Daily Note Date: 12/10/2019 Patient Name: Bret Yap : 1940 (79 y.o.) Referring Practitioner: Dr. 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 Goals - Time Frame for salvage determiner goals : 12 salvage determiner goal 1: Decrease pain right buttock 2/10 at worst x 3days correction goal 2: Patient to walk and stand for 30 minutes or longer without pain interfering correction goal 3: Improve functional activities with Oswestry score <8/45 Post Treatment Pain: 0/10 Time In: 0817 Time Out : 0857 Timed Code Treatment Minutes: 40 Minutes Total Treatment Time: 40 Minutes Gary Mcnamara PTA Date: 12/10/2019 documented in this encounter* Gary Mcnamara PTA - 12/13/2019 8:45 AM EDT [facility] Daily Note Date: 12/13/2019 Patient Name: Bret Yap : 1940 (79 y.o.) Referring Practitioner: Dr. 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 Goals - Time Frame for salvage determiner goals : 12 salvage determiner goal 1: Decrease pain right buttock 2/10 at worst x 3days salvage determiner goal 2: Patient to walk and stand for 30 minutes or longer without pain interfering salvage determiner goal 3: Improve functional activities with Oswestry score <8/45 Post Treatment Pain: 0/10 Time In: 0845 Time Out : 0925 Timed Code Treatment Minutes: 40 Minutes Total Treatment Time: 40 Minutes Gary Mcnamara PTA Date: 12/13/2019 documented in this encounter* Kate Rivera, PT - 12/16/2019 1:45 PM EDT [facility] Daily Note Date: 12/16/2019 Patient Name: Bret Yap : 1940 (79 y.o.) Referring Practitioner: Dr. Asher Wilde Referral Date : 11/22/19 Diagnosis: M16.11; Right hip primary osteoarthritis Treatment Diagnosis: Back Pain Onset Date: 11/22/19(Referral) PT Insurance Information: [employer], [employer] Total # of Visits Approved: 12 Per [...] body mechanics with lifting following education -MET Longterm Goals - Time Frame for correction goals : 12 correction goal 1: Decrease pain right buttock 2/10 at worst x 3days salvage determiner goal 2: Patient to walk and stand for 30 minutes or longer without pain interfering salvage determiner goal 3: Improve functional activities with Oswestry score <8/45 Post Treatment Pain: 2/10 Time In: 13:45 Time Out : 14:30 Timed Code Treatment Minutes: 45 Minutes Total Treatment Time: 45 Minutes Kate Rivera, PT Date: 12/16/2019 documented in this encounter* Altagracia Cohen - 12/22/2019 1:00 PM EDT [facility] Date: 12/22/2019 Patient Name: Bret Yap : 1940 Pt Cancelled Appt due to pain, patient states he just went to chiropractor and wants to see how treatment from chiropractor does before continuing therapy. Altagracia Cohen Date: 12/22/2019 documented in this encounter* Kate Rivera PT - 12/15/2019 8:00 AM EDT [facility] Daily Note Date: 12/15/2019 Patient Name: Bret Yap : 1940 (79 y.o.) Referring Practitioner: Dr. Asher Wilde Referral Date : 11/22/19 Diagnosis: M16.11; Right hip primary osteoarthritis Treatment Diagnosis: Back Pain Onset Date: 11/22/19(Referral) PT Insurance Information: [facility], [place] Total # of Visits Approved: 12 Per [...] body mechanics with lifting following education -MET Longterm Goals - Time Frame for salvage determiner goals : 12 salvage determiner goal 1: Decrease pain right buttock 2/10 at worst x 3days correction goal 2: Patient to walk and stand for 30 minutes or longer without pain interfering salvage determiner goal 3: Improve functional activities with Oswestry score <8/45 Post Treatment Pain: 2/10 Time In: 8:00 Time Out : 8:45 Timed Code Treatment Minutes: 45 Minutes Total Treatment Time: 45 Minutes Kate Rivera, PT Date: 12/15/2019 documented in this encounter Discharge Instructions * Attachments The following attachments cannot be sent through Care Everywhere. * Compression Fracture: Spine (Greenlandic) * Head Injury: Closed: General Info (Greenlandic) documented in this encounter Procedure Findings Note Patient: BRET YAP MRN: [id number] Age: 80 years Sex: Male : 1940 Associated Diagnoses: None Author: Chente Ferraro MD Supervising Physician Comments Documentation By: Consulting Physician. [...] (prostate specific antigen) Chief Complaint Medicare wellness Cough/FlemReason for VisitEssential (primary) hypertension Medicare annual wellness visit, subsequent [...] 1 0:38am Acute balanitis due to infection ua2024 8:52am Chronic nasal congestion May 07 8:52am [...] 11:03am Post-nasal drip May 26, 2024 11:03am Chief Complaint Admit Date Wellness December 08, [...] of right foot December 22, 2024 10:27am Additional Source Comments (unrecognized sect ion and content) No Status Records FoundNo Status Records FoundNo Status Records FoundNo Status Records FoundNo Status Records FoundNo Status Records FoundNo Status Records FoundNo Status Records FoundNo Status Records FoundNo Status Records FoundNo Status Records FoundNo Status Records FoundNo Status Records FoundNo Status Records Found INFORMATION SOURCE (unrecogn ized section and content) DATE CREATED AUTHOR 09/23/2017 [facility] DATE CREATED AUTHOR AUTHOR'S ORGANIZ ATION 10/23/2019 [facility] DATE CREATED AUTHOR AUTHOR'S ORGANIZ ATION 11/04/2019 [facility] DATE CREATED AUTHOR AUTHOR'S ORGANIZ ATION 08/21/2020 [facility] DATE CREATED AUTHOR AUTHOR'S ORGANIZ ATION 07/20/2021 [facility] DATE CREATED AUTHOR AUTHOR'S ORGANIZ ATION 10/20/2021 [facility] DATE CREATED AUTHOR AUTHOR'S ORGANIZ ATION 10/27/2021 [facility] DATE CREATED AUTHOR AUTHOR'S ORGANIZ ATION 07/26/2022 [facility] DATE CREATED AUTHOR AUTHOR'S ORGANIZ ATION 01/24/2024 [facility] DATE CREATED AUTHOR AUTHOR'S ORGANIZ ATION 10/09/2024 [facility] DATE CREATED AUTHOR AUTHOR'S ORGANIZ ATION 01/12/2025 [facility] DATE CREATED AUTHOR AUTHOR'S ORGANIZ ATION 01/23/2025 [facility] DATE CREATED AUTHOR AUTHOR'S ORGANIZ ATION 01/28/2025 [facility] DATE CREATED AUTHOR AUTHOR'S ORGANIZ ATION 01/30/2025 [facility] Reason for Visit (unrecogniz ed section and content) StatusReasonSpecialtyDiagnoses / ProceduresReferred By ContactReferred To ContactClosedRadiology Diagnoses Bilateral optic atrophy Procedures MR Brain/Orbit With And Without Contrast Nita Hernandez MD [address] [place] [address] ReasonCommentsHead Injurypt drove lawn tractor in a whole hitting head on knobs on control panel, abrasion on headNeck PainStatusReasonSpecialtyDiagnoses / ProceduresReferred By ContactReferred To ContactClosedRadiology Diagnoses Lumbar radiculopathy Procedures MRI lumbar spine without contrast Norman Michelle MD [address] [place] [address] StatusReasonSpecialtyDiagnoses / ProceduresReferred By ContactReferred To ContactClosedCardiology Diagnoses Atrioventricular septal defect (AVSD) Aortic valve stenosis, etiology of cardiac valve disease unspecified Procedures ECHO Complete 2D W Doppler W Color Wing Álvarez MD [address] [place] [address] StatusReasonSpecialtyDiagnoses / ProceduresReferred By ContactReferred To ContactClosed Diagnoses Atrioventricular septal defect (AVSD) Aortic valve stenosis, etiology of cardiac valve disease unspecified Procedures Holter monitor 48 hour Wing Álvarez MD [address] [place] [address] ReasonCommentsLeg SwellingStates has swelling to both feet and red spots. States left is worse than right.ReasonCommentsAnemianew patient consultationReason CommentsResultsReasonCommentsCare Coordinationappointment questionReasonComments Referral InformationGISpecialtyDiagnoses / ProceduresReferred By ContactReferred To ContactOccupational Therapy Diagnoses Extensor Tendon Repair Procedures Eval and treat Isrrael Greene MD [address] [place] [phone] [facility] [address] [place] [address] Referral IDStatusReasonStart DateExpiration DateVisits RequestedVisits [id number] / ProceduresReferred By ContactReferred To Contact Diagnoses Shortness of breath Procedures Echo (TTE) complete (PRN contrast/bubble/strain/3D) NV ECHO TTHRC R-T 2D W/WOM-MODE COMPL SPEC&COLR D NV TTE W OR WO FOL WCON,DOPPLER Wing Álvarez MD [address] [place] [address] Referral IDStatusReasonStart DateExpiration DateVisits RequestedVisits [id number] Required - [id number] Check ReasonCommentsToenail SomdIgzuloLxvaypflFpzacy-uzDrzkucztVhmyciWmdnffeoMdifra-he ReasonCommentsFoot UlcerRFollow-upRgt heel UlcerReasonCommentsHearing LossEAR DRUM PERFORATIONReasonCommentsSuspicious Skin LesionReasonCommentsFollow-upLt toenail pain Ordered Prescriptions (unrec ognized section and content) PrescriptionSigDispensedRefillsStart DateEnd Date furosemide (LASIX) 20 MG tablet Take 1 tablet by mouth daily for 15 days 15 tablet //09/2020 predniSONE (DELTASONE) 20 MG tablet Take 2 tablets by mouth daily for 5 days 10 tablet // Scheduled Active and Recently Administ ered Medications (unrecognized section and content) Medication Order10/18//// methylPREDNISolone sodium (SOLU-MEDROL) injection 125 mg (COMPLETED) 125 mg, Intravenous, ONCE, On Fri10/20/20 at 1715, For 1 dose * 1714 (Given - Provider: Marjan Nina RN) Source Comments (unrecognize d section and content) In the event this informatio n is protected by the Federal Confidentiality of Alcohol and Drug Abuse Patient Records regulations: The Federal rules restrict any use of the information to criminally investigate or prosecute any alcohol or drug abuse patient.[facility] HospitalIn the event this information is protected by the Federal Confidentiality of Alcohol and Drug Abuse Patient Records regulations: The Federal rules restrict any use of the information to criminally investigate or prosecute any alcohol or drug abuse patient.[facility] HospitalIn the event this information is protected by the Federal Confidentiality of Alcohol and Drug Abuse Patient Records regulations: The Federal rules restrict any use of the information to criminally investigate or prosecute any alcohol or drug abuse patient.[facility] HospitalIn the event this information is protected by the Federal Confidentiality of Alcohol and Drug Abuse Patient Records regulations: The Federal rules restrict any use of the information to criminally investigate or prosecute any alcohol or drug abuse patient.[facility] Care Teams (unrecognized sec tion and content) Team Status: Active Member Role Status Dates Faizan Bragg MD Primary Care Provider Active Team Status: Inactive Member Role Status Dates Faizan Bragg MD Primary Care Provide r, Attending Provider Active Start: November 19, 2023 End: November 19, 2023Team MemberRelationshipSpecialtyStart DateEnd Date Faizan Bragg MD [address] [place] [address] PCP - GeneralFamily Practice06/26/21Team MemberRelationshipSpecialtyStart DateEnd Date Faizan Bragg MD [address] [place] [address] PCP - GeneralFamily Practice06/26/21Team MemberRelationshipSpecialtyStart DateEnd Date Faizan Bragg MD [address] [place] [address] PCP - GeneralFamily Practice06/26/21Team MemberRelationshipSpecialtyStart DateEnd Date Faizan Bragg MD PCP - GeneralFamily Medicine09/18/19Team MemberRelationshipSpecialtyStart DateEnd Date Faizan Bragg MD PCP - GeneralFamily Medicine09/18/19Team MemberRelationshipSpecialtyStart DateEnd Date Faizan Bragg MD PCP - GeneralFamily Medicine09/18/19Team MemberRelationshipSpecialtyStart DateEnd Date Faizan Bragg MD PCP - GeneralFamily Medicine09/18/19Team MemberRelationshipSpecialtyStart DateEnd Date Faizan Bragg MD PCP - GeneralFamily Medicine09/18/19Team MemberRelationshipSpecialtyStart DateEnd Date Faizan Bragg MD PCP - GeneralFamily Medicine09/18/19Team MemberRelationshipSpecialtyStart DateEnd Date Faizan Bragg MD PCP - GeneralFamily Medicine09/18/19Team MemberRelationshipSpecialtyStart DateEnd Date Faizan Bragg MD PCP - GeneralFamily Medicine09/18/19Team MemberRelationshipSpecialtyStart DateEnd Date Faizan Bragg MD PCP - GeneralFamily Medicine09/18/19 Team Status: Inactive Member Role Status Dates Faizan Bragg MD Primary Care Provider Active [facility] ProviderActiveTeam MemberRelationshipSpecialty Start DateEnd Date Faizan Bragg MD PCP - GeneralFamily Medicine09/18/19Team MemberRelationshipSpecialtyStart DateEnd Date Faizan Bragg MD PCP - GeneralFamily Medicine09/18/19Team MemberRelationshipSpecialtyStart DateEnd Date Faizan Bragg MD PCP - GeneralFamily Medicine09/18/19Team MemberRelationshipSpecialtyStart DateEnd Date Faizan Bragg MD PCP - GeneralFamily Medicine09/18/19Team MemberRelationshipSpecialtyStart DateEnd Date Faizan Bragg MD PCP - GeneralFamily Medicine09/18/19Team MemberRelationshipSpecialtyStart DateEnd Date Faizan Bragg MD PCP - GeneralFamily Medicine09/18/19Team MemberRelationshipSpecialtyStart DateEnd Date Faizan Bragg MD PCP - GeneralFamily Medicine09/18/19Team MemberRelationshipSpecialtyStart DateEnd Date Faizan Bragg MD PCP - GeneralFamily Medicine09/18/19Team MemberRelationshipSpecialtyStart DateEnd Date Faizan Bragg MD PCP - GeneralFamily Medicine09/18/19Team MemberRelationshipSpecialtyStart DateEnd Date Faizan Bragg MD PCP - GeneralFamily Medicine09/18/19 Team Status: Inactive Member Role Status Dates Faizan Bragg MD Primary Care Provider Active Start: January 28, 2024 End: January 28, 2024Prabha Marmolejo APRN AEROBICS TEACHER-CAttending ProviderActive Start: January 28, 2024 End: January 28, 2024Team MemberRelationshipSpecialtyStart DateEnd Date Faizan Bragg MD PCP - [facility] Medicine09/18/19Team MemberRelationshipSpecialtyStart DateEnd Date Faizan Bragg MD PCP - [facility] Medicine09/18/19Team MemberRelationshipSpecialtyStart DateEnd Date Faizan Bragg MD PCP - [facility]09/18/19Team MemberRelationshipSpecialtyStart DateEnd Date Faizan Bragg MD PCP - [facility] Medicine09/18/19Team MemberRelationshipSpecialtyStart DateEnd Date Faizan Bragg MD PCP - [facility] Medicine09/18/19Team MemberRelationshipSpecialtyStart DateEnd Date Faizan Bragg MD PCP - [facility] Medicine09/18/19Team MemberRelationshipSpecialtyStart DateEnd Date Faizan Bragg [facility]/19Team MemberRelationshipSpecialtyStart DateEnd Date Faizan Bragg MD [facility]/18/19Team MemberRelationshipSpecialtyStart DateEnd Date Faizan Bragg MD PCP - GeneralFamily Medicine6Team MemberRelationshipSpecialtyStart DateEnd Date Faizan Bragg MD PCP - GeneralFamily Medicine09/18/19Team MemberRelationshipSpecialtyStart DateEnd Date Faizan Bragg MD PCP - GeneralFamily Medicine09/18/19Team MemberRelationshipSpecialtyStart DateEnd Date Faizan Bragg MD [address] [place] [facility] [address] PCP - GeneralFamily Medicine10/18/22Team MemberRelationshipSpecialtyStart DateEnd Date Faizan Bragg MD [address] [place] [facility] [phone] PCP - GeneralFamily Medicine10/18/22Team MemberRelationshipSpecialtyStart DateEnd Date Faizan Bragg MD PCP - GeneralFamily Medicine09/18/19Team MemberRelationshipSpecialtyStart DateEnd Date Faizan Bragg MD PCP - GeneralFamily Medicine09/18/19Team MemberRelationshipSpecialtyStart DateEnd Date Faizan Bragg MD [address] [place] [facility] [place] [phone] PCP - GeneralFamily Medicine10/18/22Team MemberRelationshipSpecialtyStart DateEnd Date Faizan Bragg MD [address] [place] [facility] [place] [address] PCP - GeneralFamily Medicine10/18/22Team MemberRelationshipSpecialtyStart DateEnd Date aFizan Bragg MD PCP - GeneralFamily Medicine09/18/19Team MemberRelationshipSpecialtyStart DateEnd Date Faizan Bragg MD [address] [place] [facility] [place] [address] PCP - GeneralFamily Medicine10/18/22Team MemberRelationshipSpecialtyStart DateEnd Date Faizan Bragg MD [address] [place] [facility] [place] [address] PCP - GeneralFamily Medicine10/18/22Team MemberRelationshipSpecialtyStart DateEnd Date Faizan Bragg MD PCP - GeneralFamily Medicine09/18/19Team MemberRelationshipSpecialtyStart DateEnd Date Faizan Bragg MD PCP - GeneralFamily Medicine09/18/19Team MemberRelationshipSpecialtyStart DateEnd Date Faizan Bragg MD PCP - GeneralFamily Medicine09/18/19Team MemberRelationshipSpecialtyStart DateEnd Date Faizan Bragg MD PCP - GeneralFamily Medicine09/18/19Team MemberRelationshipSpecialtyStart DateEnd Date Faizan Bragg MD PCP - GeneralFamily Medicine09/18/19Team MemberRelationshipSpecialtyStart DateEnd Date Faizan Bragg MD PCP - GeneralFamily Medicine09/18/19Team MemberRelationshipSpecialtyStart DateEnd Date Faizan Bragg MD PCP - GeneralFamily Medicine09/18/19Team MemberRelationshipSpecialtyStart DateEnd Date Faizan Bragg MD PCP - GeneralFamily Medicine09/18/19Team MemberRelationshipSpecialtyStart DateEnd Date Faizan Bragg MD PCP - GeneralFamily Medicine09/18/19Team MemberRelationshipSpecialtyStart DateEnd Date Faizan Bragg MD PCP - GeneralFamily Medicine09/18/19Team MemberRelationshipSpecialtyStart DateEnd Date Faizan Bragg MD PCP - GeneralFamily Medicine09/18/19Team MemberRelationshipSpecialtyStart DateEnd Date Faizan Bragg MD PCP - GeneralFamily Medicine09/18/19Team MemberRelationshipSpecialtyStart DateEnd Date Faizan Bragg MD PCP - GeneralFamily Medicine6/20/20Team MemberRelationshipSpecialtyStart DateEnd Date Faizan Bragg MD PCP - [facility]09/18/19Team MemberRelationshipSpecialtyStart DateEnd Date Faizan Bragg MD PCP - [facility]09/18/19 Team Status: Inactive Member Role Status Dates Faizan Bragg MD Primary Care Provider Active Start: March 16, 2024 End: March 16, 2024Prabha Marmolejo APRN AEROBICS TEACHER-CAttending ProviderActive Start: March 16, 2024 End: March 16, 2024 Team Status: Inactive Member Role Status Dates Faizan Bragg MD Primary Care Provider Active Start: April 30, 2024 End: April 30Solomon Rosales ProviderActiveStart: April 30, 2024 End: April 30, 2024 Team Status: Inactive Member Role Status Dates Faizan Bragg MD Primary Care Provide r, Attending Provider Active Start: May 07, 2024 End: May 07, 2024Team MemberRelationshipSpecialtyStart DateEnd Date Faizan Bragg MD [address] [place] [phone] PCP - [facility]10/18/22 Team Status: Inactive Member Role Status Dates Faizan Bragg MD Primary Care Provide r, Attending Provider Active Start: May 26, 2024 End: May 26, 2024 Team Status: Inactive Member Role Status Dates Faizan Bragg MD Primary Care Provide r, Attending Provider Active Start: June 21, 2024 End: June 21, 2024Team MemberRelationshipSpecialtyStart DateEnd Date Faizan Bragg MD PCP - [facility]09/18/19Team MemberRelationshipSpecialtyStart DateEnd Date Faizan Bragg MD [address] [place] [address] PCP - GeneralFamily Medicine07/15/24Team MemberRelationshipSpecialtyStart DateEnd Date Faizan Bragg MD [address] [place] [address] PCP - GeneralFamily Medicine07/15/24Team MemberRelationshipSpecialtyStart DateEnd Date Faizan Bragg MD PCP - GeneralFamily Medicine07/15/24Team MemberRelationshipSpecialtyStart DateEnd Date Faizan Bragg MD [address] [place] [facility] [place] [phone] PCP - GeneralFamily Medicine07/29/24Team MemberRelationshipSpecialtyStart DateEnd Date Faizan Bragg MD [address] [place] [facility] [place] [phone] PCP - GeneralFamily Medicine07/29/24Team MemberRelationshipSpecialtyStart DateEnd Date Faizan Bragg MD [address] [place] [facility] [place] [address] PCP - GeneralFamily Medicine07/29/24Team MemberRelationshipSpecialtyStart DateEnd Date Faizan Bragg MD [address] [facility] [place] [address] PCP - GeneralFamily Octahadv99/1/16Team MemberRelationshipSpecialtyStart DateEnd Date Faizan Bragg MD [address] [facility] [place] [address] PCP - GeneralFamily Kcftvezg29/1/16Team MemberRelationshipSpecialtyStart DateEnd Date Faizan Bragg MD [address] [place] [facility] [place] [phone] [facility] - [facility]07/29/24Team MemberRelationshipSpecialtyStart DateEnd Date Faizan Bragg MD [address] [place] [facility] [address] [facility]07/29/24 Team Status: Inactive Member Role Status Dates Faizan Bragg MD Primary Care Provider Active Start: September 09, 2024 End: September 09, 2024Robert Goins ProviderActiveStart: September 09, 2024 End: September 09, 2024 Team Status: Inactive Member Role Status Dates Faizan Bragg MD Primary Care Provider Active Start: December 08, 2024 End: December 08, 2024Robert Goins ProviderActiveStart: December 08, 2024 End: December 08, 2024 Team Status: Inactive Member Role Status Dates Faizan Bragg MD Primary Care Provider Active Start: December 22, 2024 End: December 22, 2024Prabha Marmolejo APRN AEROBICS TEACHER-CAttending ProviderActive Start: December 22, 2024 End: December 22, 2024Team MemberRelationshipSpecialtyStart DateEnd Date Faizan Bragg MD PCP - [facility]09/18/19Team MemberRelationshipSpecialtyStart DateEnd Date Faizan Bragg MD [facility] - [facility]/18/19Team MemberRelationshipSpecialtyStart DateEnd Date Faizan Bragg MD [address] [place] [facility] [place] [address] [facility] - [facility]07/29/24Team MemberRelationshipSpecialtyStart DateEnd Date Faizan Bragg MD [address] [place] [facility] [address] [facility]/24Team MemberRelationshipSpecialtyStart DateEnd Date Faizan Bragg MD [facility] - [facility]09/18/19 Goals (unrecognized section and content) Goals may [...] BE BASED ON THE PRIMARY CLINICAL RECORDS. [facility] [employer] [facility]. provides no warranty or guarantee of the accuracy or completeness of information in this document.
== END 2025-02-08 13:49 | disposition home or self-care (01) ==
LOC: WC 13:50
PROVIDERS: PCP Family Medicine; Visit Provider Physician Assistant
DX: I87.311 Chronic venous hypertension (idiopathic) with ulcer of right lower extremity (principal); L97.312 Non-pressure chronic ulcer of right ankle with fat layer exposed
CPT/HCPCS: G0463

== ENCOUNTER 2025-03-09 09:45 | Outpatient (OUT) | payer MEDICARE, OTHER, SELFPAY ==
--- OUTSIDE RECORDS SUMMARY | 2025-03-08 20:02 | XMS_ITS | Continuity of Care Document ---
Author Organization [facility] Address [address] [place] [address] Phone Care Team Providers Care Residential Nurse Name Role Phone Ragean Walker MD Primary Care Provider Prabha Marmolejo APRN Attending Provider Rigoberto Mckinney MD Attending Provider [phone] Raegan Walker MD Attending Provider [phone] Oanh Babcock CMA Attending Provider Unav[facility] Care Teams Patient Care Team Team Status: Active Member Role/Relationship Status Dates Raegan Walker MD Primary Care Provider Active Visit Care Team Team Status: Inactive Member Role/Relationship Status Dates Raegan Walker MD Primary Care Provider Active Start: December 22, 2024 End: December 22, 2024Prabha Marmolejo APRN SECURITY COMPLIANCE SPECIALIST-CAttending ProviderActive Start: December 22, 2024 End: December 22, 2024 Visit Care Team Team Status: Inactive Member Role/Relationship Status Dates Raegan Walker MD Primary Care Provider Active Start: February 07, 2025 End: February 07, 2025Robert Boyer ProviderActiveStart: February 07, 2025 End: February 07, 2025 Visit Care Team Team Status: Inactive Member Role/Relationship Status Dates Raegan Walker MD Primary Care Provider Active Start: February 09, 2025 End: February 09, 2025Yusef Goinsending ProviderActiveStart: February 09, 2025 End: February 09, 2025 Visit Care Team Team Status: Inactive Member Role/Relationship Status Dates Raegan Walker MD Primary Care Provider Active Start: February 14, 2025 End: February 14, 2025Robert Goins ProviderActiveStart: February 14, 2025 End: February 14, 2025 Visit Care Team Team Status: Active Member Role/Relationship Status Dates Raegan Walker MD Primary Care Provider Active Start: March 07, 2025 Oanh RADHA BabcockAttluh ProviderActiveStart: March 07, 2025 Visit Care Team Team Status: Inactive Member Role/Relationship Status Dates Raegan Walker MD Primary Care Provider Active Start: March 08, 2025 End: March 08, 2025Robert Boyer ProviderActiveStart: March 08, 2025 End: March 08, 2025 Visit Care Team Team Status: Inactive Member Role/Relationship Status Dates Raegan Walker MD Primary Care Provider Active Start: March 08, 2025 End: March 08, 2025Robert Boyer ProviderActiveStart: March 08, 2025 End: March 08, 2025 Chief Complaint and Reason for Visit Chief Complaint Admit Date Right foot pain December 22, 2024 10:27am Cough/Cold February 09, 2025 10:25am hamstring still hurts February 14 10:40am Amb Documentation March 07, 2025 1 0:34am go over rt leg ff March 08, 2025 1 1:22am L98.499 I87.2 I83.811 March 08, 2025 11:23am Reason for Visit Admit Date Cellulitis of right foot December 22, 2024 10:27am Ulcer of extremity due to chronic venous insufficiency February 07, 2025 2:12pm Left hamstring injury February 09 10:25am Sinusitis, acute maxillary January 10:25am Left hamstring injury February 14 10:40am Ulcer of extremity due to chronic venous insufficiency March 08, 2025 11:22am Allergies, Adverse Reactions, Alerts Allergen Type Severity Reaction Last Updated Verified Status Comments indomethacin Allergy Unknown Unknown Reaction March 08, 2025 12:11pm Yes Active Onset Date: 06/04/2013 sulfamethoxazole Allergy Unknown Unknown Reaction March 08, 2025 12:11pm Yes Active Onset Date: 02/09/2013 trimethoprim Allergy Unknown Unknown Reaction March 08, 2025 12:11pm Yes Active Onset Date: 02/09/2013 Social History Smoking Status Status Start Date End Date Date of Observa tion Never smoked tobacco (finding) June 05, 2023 1:06pm Observation Status Observation Response Date of Response Legal Sex [facility] (finding) [facility] 1940 Family History Relationship Condition Age at Onset Recorded Date/T loraine father Malignant neoplasm Unknown motherPerforation of intestineUnknownbrotherParkinson's diseaseUnknownbrother DeceasedUnknownParkinson's diseaseUnknownfatherDeceasedUnknownmotherDeceased Unknown Problems Active Problems Problem Diagnosis/Recorded Date Onset Date Status C omments Elevated PSA January 20, 2024 9:13am Unknown Active Medicare annual wellness visit, subsequentAugust 2023 8:50amUnknownActive Ulcer of extremity due to chronic venous insufficiencyNovember 2024 3:26pm UnknownActiveScreening PSA (prostate specific antigen)November 19, 2023 10:26am UnknownActiveEncounter for immunizationSeptember 2024 9:47amUnknownActive Perforation of right tympanic membraneJune 2024 9:16amUnknownActiveAnkle woundNovember 2024 8:39amUnknownActiveSinusitis, acute maxillaryJanember 2024 3:27pmUnknownActivePost-nasal dripAugust 2023 8:53amUnknown ActiveDyslipidemiaSeptember 2024 8:59amUnknownActiveUncircumcised male April 30, 2024 11:36amUnknownActiveLeft hamstring injuryNovember 2024 11:26amUnknownActiveDyspneaJanuary 2024 11:37amUnknownActiveDegenerative disc disease, lumbarMarch 2023 7:26amUnknownActiveEssential (primary) hypertensionMarch 2023 7:26amUnknownActiveChronic atrial fibrillation May 07, 2024 10:24amUnknownActiveIron deficiency anemiaMarch 2023 7:26amUnknownActiveChronic nasal congestionJanuary 2024 11:37amUnknown ActiveAcute balanitis due to infectionJanuary 2024 11:36amUnknownActive Barretts esophagusMarch 2023 7:26amUnknownActiveBronchitisMarch 2023 1:31pmUnknownActiveCellulitis of right footSeptember 2024 9:48amUnknown ActiveInactive/Resolved Problems Problem Diagnosis/Recorded Date Onset Date Status C omments Chronic cough June 23, 2024 11:58am Unknown Resolved Nasal congestionMarch 2024 1:13pmUnknownResolvedBarretts esophagusNovember 2018 7:33amUnknownResolvedProblem List clean-up per request of Phys. EHR Cmte Medications Medication Status Dose Units Route Directions Qty Days Refills S tart Date Stop Date End Date Reason(s) Instructions Adherence Allopurinol 300 mg tablet Discontinued 0 .ROUTE.WJFYCSC626Yanmvmnf 2023 2:21pmMarch 2023 1:12pmTAKE 1 TABLET BY MOUTH DAILYMontelukast 10 mg tabletDiscontinued0.ROUTE.ACMDNHR977Cdybfpwnu 2023 12:33pmDecember 2023 10:15amTAKE 1 TABLET BY MOUTH DAILY AT BEDTIMECephalexin 500 mg gfsvzypCxbrioprwwst903QJAKCbzot nlcxx385Anxxr 2024 11:00pmSeptember 2024 8:28amAllopurinol 300 mg axwmmkTxghrwraxzwc306TYCG Rdodd820Ihx 2024 1:03pmAugust 2024 8:33amAllopurinol 300 mg tablet Jkvcfmmptpxz387ATGZTsqyf833Qweixn 2024 8:33amNovember 2024 4:31pm Allopurinol 300 mg eenxavZrjhcx440EBTIMkcrw593Ajxvppqp 2024 4:31pmUnknown Triamcinolone Acetonide 0.1 % xfxoqGrvyvtuzdkyw1HOHLMBLWZSKDe DirectedAtrium Health Stanly2018 12:00amJuly 2021 10:45amAllopurinol 300 mg tabletDiscontinued 300MGPODailyUofl Health - [facility] 2018 12:00amFebruary 2023 2:21pmOmeprazole Magnesium (Prilosec Otc) 20 mg Tablet,Delayed Release (Dr/Ec)Skgvsntonted4TIFVL DailyFebruary 23, 2019 12:00amJuly 2021 10:45amCalcium Carbonate (Calcium 500) 500 mg calcium (1,250 mg) CoiqegWifatvtuxxdp840JMOFJrflsApiv 2021 11:00pmAugust 2023 9:51amFerrous Sulfate (Ferosul) 325 mg (65 mg iron) zpcctqRrbmhhabbrcy396XWFSFwqhoXpuq 2021 11:00pmAugust 2023 9:51amFurosemide 20 mg fnyfbsGqprqc50PWKLSlzxdWjdy 2021 11:00pmUnknown Eplerenone 25 mg yfmrisTriqjwlqiywi16XOIKYyfcpYnpr 2021 11:00pmAugust 2023 9:52amOmeprazole 20 mg Tablet,Delayed Release (Dr/Ec)Jdntknczkdrn49KJ PODailyJuly 2021 11:00pmSept2024 8:33amCholecalciferol (Vitamin D3) (Vitamin D3) 50 mcg (2,000 unit) AjxtqbAltfkl43PVFYXAprscMlge 2021 11:00pmUnknownRivaroxaban (Xarelto) 20 mg XcumrxBctqhqyayaps17AACBAligdLlwd 2021 11:00pmSeptember 2024 9:34ammust administer with evening meal Rivaroxaban (Xarelto) 20 mg caxupvHeilss92DMSOOwzdmAasegocbk 24th, 2025 9:33am must administer with evening mealUnknownAllopurinol 300 mg vlalveHazicewwydyi053 MGFEEDTUBEDailyMagruder Hospital 2023 1:12pmFebruary 2024 9:26amAzithromycin 250 mg bzzvrzAmcrsqtnfyky342GUTNmkgfc841Jhwwj 2023 12:00amAugust 2023 9:51amBronchitis Bronchitis, not specified as acute or chronicTake 2 tablets today and then 1 for each additional day for 4 daysMontelukast (Singulair) 10 mg nofcqiFgwexydrxhgq46 MGPODaily at hqrvjjg704Ewflrt 2023 11:00pmSeptember 2023 12:33pm Cephalexin 500 mg tzfzfiyTkuwssmikrur285JYLQQdnwz times amhgl2593Wnpgxkb 2024 12:00amFebruary 2024 9:06amClotrimazole-Betamethasone 1-0.05 % cream Npgjttdfdxtv6AGQVUUZPTANOTYttox sjtii2820Nyqjgew 2024 12:00amSeptember 2024 8:29amCephalexin 500 mg ckijoyvAgvncmvzgryt801OECZOgiwo times daily30 100March 2024 2:03pmSeptember 2024 8:28amAlbuterol Sulfate 90 mcg/actuation HFA aerosol xtonjrkOryrsgpttlpw7DPPAQBKCGUMUMLMAHLY 4-6 HOURS as needed for bronchospasm8.50March 2024 11:00pmSeptember 2024 8:33am Cephalexin 500 mg silzfzrAlijryrdvqjc384UTEEDtswv sshag16119Eqmqynvew 2024 11:00pmNovphoenix children's hospital 2024 2:24pmCellulitis of right foot Cellulitis of right lower limbEplerenone 25 mg brkxseQjguet39UFCYGarljUudkluia 12th, 2025 12:00amUnknownCefdinir 300 mg telhmssKdmhpq705MFLETqjqb gwzxa148 February 09, 2025 12:00amUnknownAmlodipine 5 mg tabletActive2.5MGPODaily January 27, 2024 11:00pmUnknownAspirin 81 mg tablet,delayed release (DR/EC) Nyeqrfpwllkv65FGDFUgbmpEmbqmkm 2023 11:00pmFebruary 2024 11:26am Atorvastatin 10 mg kswcfxEzhisn73HPRHQjhzxTmudizj 2023 11:00pmUnknown Azithromycin 250 mg odxmbgLywbhnvhozal8DFpxqzc906Ztecukd 2023 11:00pm March 16, 2024 10:14amBronchitis Bronchitis, not specified as acute or chronicTake 2 on day 1 and then take 1 for the next 4 days (days 2-5)Benzonatate 200 mg wkxljlgRxwhnislartg040WGZQSkycz times daily as needed for fsaqj10147Zfxrntl 2023 11:00pmDecember 2023 10:14amBronchitis Bronchitis, not specified as acute or chronicAlbuterol Sulfate 2.5 mg /3 mL (0.083 %) solution for nebulizationDiscontinued2.5MGINHALATIONEVERY 4-6 HOURS as needed for shortness of breath or bkhzpvaq549Khbilsc 2023 11:00pmMarch 2024 2:01pmBronchitis Bronchitis, not specified as acute or chronicLatanoprost 0.005 % drops DiscontinuedDROPSOPHTHALMICJefferson Abington Hospital 2023 12:00amSeptember 2024 8:33amBenzonatate 200 mg hyyphvoFyfounqbvzwx160PEHOXyufp times daily as needed for loktf83094Rdkevwlg 2023 12:00amFebruary 2024 9:25amBronchitis Bronchitis, not specified as acute or chronicAzithromycin 250 mg tablet Xccrynpugwqp8TCklixj812Hpmefjsm 2023 12:00amFebruary 2024 9:05am Bronchitis Bronchitis, not specified as acute or chronicTake 2 on day 1 and then take 1 for the next 4 days (days 2-5)Allopurinol 300 mg jehgzfXtyqwxwyoewk307XNPGRkrxh May 07, 2024 9:26amMay 2024 1:03pmMetoprolol Tartrate 25 mg tablet Njbviiwsgyti66.5MGPODailyFebruary 2024 12:00amFebruary 2024 11:29am Isosorbide Mononitrate 30 mg tablet extended release 24 ilMcmgelyqgroy95SRPV DailyFebruary 2024 12:00amFebruary 2024 11:29amMethylprednisolone 4 mg tablets,dose inizKnrzhttzpdqf7ZUqyj package alpcpthczv906Xaaxqpwq 2024 12:00amMarch 2024 1:59pmPO PER PKG DIR for 6 daysFerrous Sulfate (Ferosul) 325 mg (65 mg iron) nnoqwbUhzbeu157PCXGZhqmxThztvudla 9th, 2025 11:00pmUnknown Esomeprazole Magnesium 40 mg capsule,delayed release(DR/EC)Zkztcp23DIBBIctag December 07, 2024 11:00pmUnknownTramadol 50 mg ijycnwRvobfk64HLHXUqqbl 8 hours as needed for dibk6111Ltiurhxt 2024 12:00amLeft hamstring injuryUnknown Immunizations Immunization Event Date Not Given Reason Dose Number Auto Design Checker Lot Number Reason(s) Given Vaccine Information Statement (VIS) Detail Administration Location COVID-19 mRNA, Comirnaty ([employer]) May 04, 2020 COVID-19 mRNA, Comirnaty ([employer])May 25OVID-19 mRNA, Comirnaty ([employer])January 04Tap, unspecifiedOct2015Fluzone TIV High-Dose 65YR+December 08, [id number] [facility] HospitalFluzone TIV High-Dose 65YR+April 07, [id number] QIV High-Dose 65YR+February 09, 2021 UY606ANJnnnarp QIV High-Dose 65YR+February 04, 2022UJ919AAFluzone QIV High-Dose 65YR+January 31, [id number], trivalentOctober [id number] influenza, unspecified formulationOctober 2016influenza, unspecified formulationOctober 2017influenza, unspecified formulationNovember 2018influenza, unspecified formulationSept2019Pneumococcal Conjugate Vaccine, 13 valentNov2018Pneumococcal Polysacc. Vaccine, 23 valent November 27, 2015Pneumococcal Polysacc. Vaccine, 23 valentNovember 2019 Zoster Vaccine Recombinant, AdjuvantedJanuary [id number] Vaccine Recombinant, AdjuvantedMay 9878R4EP4Ndkruiw, Diphtheria adult, 5 Lf pres free absNovember 2012Tetanus, Diphtheria, Pertussis (Tdap)December 30, 2015 L1CY4Bvmzxopkk Influenza VaccineJanuary 2016 Procedures Procedure Date Performed Status US venous duplex LE RT March 08, 2025 11:40a m completed Relevant Diagnostic Tests and/or Laboratory Data Diagnostic Imaging Reports Author Rigoberto Mckinney [facility] HospitalReport Date/TimeDecember 2024 12:27pm [facility] [address] [place] [address] Ultrasound Report Signed Patient: Troy Olivares MR#: [id number] : 1940 Acct:[id number] Age/Sex: 84 / M ADM Date: 5 Loc: [facility] Room: Type: [facility] Attending Dr: Rigoberto Mckinney MD Ordering Provider: Rigoberto Mckinney MD Date of Service: 03/08/25 US/US venous duplex LE RT: L98.499 - Non-pressure chronic ulcer of skin of other sit... Copies to: Rigoberto Mckinney MD~ Right lower extremity full functional venous duplex examination Indication for study: Venous ulceration PROCEDURE: Color-flow duplex scanning is used to interrogate the venous anatomy of the right leg. There is no evidence for deep vein thrombosis. The right common femoral vein, femoral vein, and popliteal vein show good compressibility,color-flow, and augmentation. At the right common femoral vein there is greaterthan 5 seconds of reflux. The greater saphenous vein is been successfully ablated. Atthe right popliteal vein 5 seconds of reflux is noted in the lessersaphenous veins been successfully ablated. There are minimal varicosities arising from the saphenous vein but there are varicositiesthat are 2 mm arisingfrom the lesser saphenous vein. Scattered varicosities are also noted at the wound that level up to 3 mm in diameter. US/US venous duplex LE RT IMPRESSION: No evidence for deep vein thrombosis in the right leg. Successful closure both the greater and lesser saphenous veins. There are secondary varicosities and varicosities are noted around and beneath the ulcer bed. Impression dictated by: Rigoberto Mckinney M.D. 03/08/2025 12:27 PM Dictation Location: [place] [address] Tech: Randi Quinteros Transcribed By: ADAN 03/08/25 1227 Dictated By: Rigoberto Mckinney MD 03/08/25 1225 Signed By: <Electronically signed by MD Rigoberto Mckinney in OV> 03/08/25 1227 Vital Signs Vital Reading Result Reference Range Collection Date/Time Height 70 [in_i] December 22, 2024 9:78uzDkybcj95.53 kgSept2024 9:28amBody Fufmulpevum40.5 [degF]97.6-99.0Sept2024 9:28amHeart Rate71 /min 60-100December 22, 2024 9:28amOxygen saturation by Pulse irayuqai44 %95-100 December 22, 2024 9:28amBP Tdjgwifi803 mm[Hg]100-140Sept2024 9:28amBP Wzwtqmpdf57 mm[Hg]60-100Sept2024 9:28amBMI (Body Mass Index)29.2 kg/r4Ikfjalqbh2024 9:99ivUwlcmw24 [in_i]February 07, 2025 3:09rhIwsxez117.80 kgFebruary 07, 2025 3:01pmBody Vfodgkhdxkh93.3 [degF] 97.6-99.0February 07, 2025 3:01pmHeart Rate76 /uwk72-832OebaulueFebruary 07, 2025 3:01pmOxygen saturation by Pulse cnebbsdr79 %95-100February 07, 2025 3:01pmBP Asvlaqhy228 mm[Hg]100-140February 07, 2025 3:01pmBP Tpyarimje55 mm[Hg]60-100 February 07, 2025 3:01pmBMI (Body Mass Index)37.8 kg/w4XxlhdfnxFebruary 07, 2025 3:55dgHsbocg17 [in_i]February 09, 2025 10:15otJsxeoe52.07 kgFebruary 09, 2025 10:31amBody Ztzkwntaqtn52.1 [degF]97.6-99.0February 09, 2025 10:31amHeart Rate70 /hov82-286Rstgbsfy 12th, 2025 10:31amOxygen saturation by Pulse oximetry 95 %95-100February 09, 2025 10:31amBP Kxbomzoy033 mm[Hg]100-140February 09, 2025 10:31amBP Opgjjwjco34 mm[Hg]60-100Nov2024 10:31amBMI (Body Mass Index)26.0 kg/p1IfwaaisiFebruary 09, 2025 10:29voRpqugf94 [in_i]February 14, 2025 10:94tnMlqbza32.07 kgFebruary 14, 2025 10:55amHeart Rate69 /ial01-161UxriuhdlFebruary 14, 2025 10:55amBP Emzkfgtw576 mm[Hg]100-140February 14, 2025 10:55amBP Kceuwljwi85 mm[Hg]60-100February 14, 2025 10:55amBMI (Body Mass Index)26.0 kg/r5HinzpwphFebruary 14, 2025 10:82vzQcplnz39 [in_i]March 08, 2025 12:12pmWeight 91.62 kgDecember 2024 12:12pmBody Iyyekytycbk93.8 [degF]97.6-99.0December 2024 12:12pmHeart Rate64 /ytr56-536Lazlgkcb 9th, 2025 12:12pmRespiratory rate16 /non23-06Xdjwbonh 2024 12:12pmOxygen saturation by Pulse %95-100Decemb2024 12:12pmBP Zyynimkq268 mm[Hg]100-140December 2024 12:12pmBP Nviybkvwb26 mm[Hg]60-100December 2024 12:12pmBMI (Body Mass Index)25.2 kg/t8Fhmwsrjw 2024 12:12pm Advance Directives Advance Directive Response Recorded Date/ Time Advance Directives No January 10:35am Insurance Providers Guarantor Troy Olivares Address [address] [address] Info.Home Phone: Coverage Status Update:2024 Payer Group Member ID Coverage Type Subscriber Relationship to Subscriber Effective Date Expiration Date MMO Id: [id number] L Reichert Id: [id number] [address] Home Phone: Email: [email or web address] L Reichert Id: [id number] [address] [address] Home Phone: Email: [email or web address] Encounter Location(s) Arrival/Admit Date Discharge/Departure Date Discharge/Departure Disposition Provider(s) Departed Physician/ Provider Office Visit -[facility] December 22, 2024 10:27am December 22, 2024 10:53am Discharged to home care or self care (routine discharge) Prabha Marmolejo APRN CNP Departed Physician/ Provider Office Visit -[facility] Vascular Surgery [place] February 07, 2025 2:12pm February 07, 2025 3:40pm Discharged to home care or self care (routine discharge) Rigoberto Mckinney MD Departed Physician/ Provider Office Visit -[facility] February 09, 2025 10:25am February 09, 2025 10:55am Discharged to home care or self care (routine discharge) Raegan Walker MD Departed Physician/ Provider Office Visit -[facility] February 14, 2025 10:40am February 14, 2025 11:34am Discharged to home care or self care (routine discharge) Raegan Walker MD Non-patient / Non-visit -[facility] Dece2024 10:34am Oanh Babcock CMADeparted Physician/Provider [facility]:22[facility] 2024 12:31pmDischarged to home care or self care (routine discharge)JAE Bermudezeparted Clinical-[facility]am[facility] 20[facility] 11:24amDischarged to home care or self care (routine discharge)Rigoberto Mckinney MD Recent Diagnosis Onset Date Admit Date Cellulitis of right foot Unknown er 2024 10:27am Ulcer of extremity due to ch ronic venous insufficiency Unknown February 07, 2025 2:12pm Left hamstring injury Unknown January 292024 10:25am Sinusitis, acute maxillary Unknown 2024 10:25am Left hamstring injury Unknown January 292024 10:40am Ulcer of extremity due to ch ronic venous insufficiency Unknown March 08, 2025 11:22am Assessments Diagnosis Onset Date Resolution Status Admit Date Cellulitis of right foot acuteSeptember 2024 10:27amUlcer of extremity due to chronic venous insufficiencyacuteNovember 2024 2:12pmLeft hamstring injuryacuteNovember 2024 10:25amSinusitis, acute maxillaryacuteNovember 2024 10:25amLeft hamstring injuryacuteNovember 2024 10:40amUlcer of extremity due to chronic venous insufficiencyacuteDeceer 2024 11:22am Plan of Treatment Author Prabha Marmolejo [facility]AutSchool[facility] Hospitalptember 2024 1:29pm Take antibiotic as directed, and [...] follow up with PCP or return to if symptoms persist or worsen despite treatment, or if pt begins to develop fluctuant abscess that may need I&D. Patient verbalized understanding and agreement with treatment plan. Author Rigoberto Mckinney [facility] 2024 3:27pmIt has been several years since he [...] under the wound bed. Author Raegan Walker [facility] 2024 3:28pmDiscussed diagnosis with patient. Instructed to take ATB as directed and complete entire course even if asymptomatic. OTC Tylenol or ibuprofen for discomfort. Saline nasal spray prn congestion. Flonase nasal spray prn congestion. OTC cough medication prn cough. Push fluids and rest. Cool mist humidifier. Immediate evaluation if worsening symptoms. Patient to notify office should symptoms persist or not improve. Pt verbalizes understanding and agrees with tx plan. Reassurance provided. Is on xarelto. Use heat and elevate leg. Author Rigoberto Mckinney [facility] 2024 12:33pmHe is making fairly good progress although he is disappointed it is not healed to date. Given the tissue quality in the wound bed I think this is as expected. On ultrasound examination he has successful closure of both the greater and lesser saphenous veins. He does have varicose vein targets that we could inject arising primarily from the lesser saphenous vein and also some in the area of the wound bed itself. For now given the very shallow and small nature of the wound and its forward progress I think we should hold off on any additional intervention. He will go on to complete closure in the near future. I will see him back in a month and reassess him. If he has not made expected progress we will go ahead with additional sclerotherapy. Author Raegan Walker [facility] 2024 11:47amCalled [facility] ortho and left a message. MRI order faxed to [facility]. Tramadol prescribed for short term use. OARRS reviewed. Has history of DVT. Recently saw Vascular and is on Xarelto. Future Tests Future scheduled test information is unavailable Pending Tests Test Name Ordered Date Scheduled Date MR lower leg LT wo con February 14, 2025 11:24 am Future Visits Future appointment information is unavailable Future Procedures Future procedure information is unavailable Future Medications Future medication information is unavailable Patient Instructions Patient instructions are unavailable
--- OUTSIDE RECORDS SUMMARY | 2025-03-09 10:01 | XMS_ITS | CCD ---
Author Organization [facility] CliniSywa Care Team Providers Care Medical Affairs Leader Name Role Phone SANDY MURILLO Unavailable Unavailable NITA HERNANDEZ Admitting Unavailable FAIZAN BRAGG Primary Care Unavailable Faizan Bragg Primary Care Provider NITA HERNANDEZ Attending Unavailable NITA HERNANDEZ Referring Unavailable FAIZAN BRAGG Primary Care Unavailable Faizan Bragg Primary Care Provider Faizan Bragg Primary Care Provider Faizan Bragg Primary Care Provider Faizan Bragg Primary Care Provider Faizan Bragg MD Primary Care Provider [phone] Faizan Bragg MD Primary Care Provider [phone] Faizan Bragg MD Primary Care Provider [phone] Aaron DE LA PAZ, Faizan Primary Care Provider Mik Amaya Unavailable Faizan Bragg MD Primary Care Provider MD Faizan Bragg Primary Care Provider MD Mik Amaya Attending Provider [phone] Isrrael Greene Admitting Unavailable FAIZAN BRAGG Referring Unavailable FAIZAN BRAGG Primary Care Unavailable Isrrael Greene Attending Unavailable Faizan Bragg Unavailable DR FAIZAN BRAGG Attending Unavailable KAY, DR NITA Prieto Consulting Unavailable AARON, DR FAIZAN Hernandez Primary Care Unavailable AARON, DR FAIZAN Hernandez Admitting Unavailable AARON, DR FAIZAN Hernandez Consulting Unavailable AARON, DR FAIZAN Hernandez Admitting Unavailable AARON, DR FAIZAN Hernandez Attending Unavailable AARON, DR FAIZAN Hernandez Consulting Unavailable BRAGG, DR FAIZAN Hernandez Primary Care Unavailable ZE [...] Care Provider FAIZAN BRAGG Primary Care Physician [phone] Aaron DE LA PAZ, Faizan Primary Care Provider TRES ÁLVAREZ Attending Unavailab TRES Cool Admitting Unavailab le FAIZAN BRAGG Primary Care Unavailable Faizan Bragg MD Primary Care Provider Faizan Bragg MD Primary Care Provider Faizan Bragg MD Primary Care Provider Faizan Bragg MD Primary Care Provider [phone] Faizan Bragg MD Primary Care Provider FAIZAN [...] Unavailable BRAGG, FAIZAN Primary Care Unavailable Bragg Faizan DE LA PAZ Primary Care Provider CAROL GUSMAN Attending Unavailabl e NASEEM, CAROL Freitas Attending Unavailabl e CAROL GUSMAN Attending Unavailabl e NASEEM, CAROL Freitas Attending UnavailCAROL Horne Attending Unavailbraden e NASEEM, CAROL Freitas Attending Unavailabl e NATALIE MARKS Attending Unavailable NASEEM, CAROL Freitas Attending UnavailNATALIE Scott Attending Unavailable NATALIE MARKS Attending Unavailable SHAREE EVANS Referring Unavailable FAIZAN BRAGG Primary Care Unavailable ARTURO PALMA Attending Unavailable ARTURO PALMA Referring Unavailable FAIZAN BRAGG Primary Care Unavailable Aaron DE LA PAZ, Faizan Hernandez Primary Care Provider Faizan Bragg MD Attending Provider Prabha Marmolejo APRN Attending Provider Rigoberto Mckinney MD Attending Provider Allergies Allergy ClassificationReported Allergen(s)Allergy TypeDate of OnsetReaction(s) Facility (20 sources)IndomethacinDrug Wiyvzze00-98-0908Wmpcmif, [facility] Comment on above:Onset Date: 06/04/2013 (4 sources)Sulfamethoxazole / TrimethoprimDrug Vpsrdio41-07-4994YwbzerwIrkspyots Clinic (20 sources)Sulfonamides (Antibiotic)Propensity to adverse reactions to drug 44-47-2878HuagelkDBZSentara Princess [facility] (4 sources)Sulfamethoxazole / TrimethoprimDrug Wfpacpb23-42-3852LthfkiwDiokpRenRen [employer] Other (2 sources)patient allergy list reviewed by nurse or physiciaPropensity to adverse jiucnaprm18-12-5584Cnglyhj:[employer] Other (2 sources)Allergies ReconciledPropensity to adverse reactionsSt. Vincent Pediatric Rehabilitation CenterRenRen [facility] Other (10 sources)SulfamethoxazoleDrug Wyebirb79-24-6249Nnkoxur ReactionOhiohealth Mansfield HospitalComment on above:Onset Date: 02/09/2013 (20 sources)TrimethoprimDrug Weplrkw04-28-6004Mclwz, Other (See Comments) [facility] HospitalComment on above:Onset Date: 02/09/2013 (1 source)No Known Medication Allergies; Translations: [No Known Medication Allergies]Propensity to adverse reactions (disorder)[facility] Medications Current Medications MedicationDrug Class(es)DatesSig (Normalized)Sig (Original)amitriptyline hydrochloride 25 mg oral tablet (3 sources)Tricyclic AntidepressantStart: 39-22-5198pqfk 0.5-1 tablets by mouth once daily at bedtimeamitriptyline 25 mg Tab 0.5-1 tab(s), Oral, Once a day (at bedtime), # 30 tab(s), Refills(s) 1, Pharmacy: [id number], 188, cm, 08/04/23 8:12:00 EDT, Height/Length Dosing, 88.5, kg, 07/03/23 14:37:00 EDT, Weight Dosing Start Date: 08/11/23 Status: OrderedamLODIPine 5 mg oral tablet (20 sources)Dihydropyridine Calcium Channel BlockerStart: 98-34-6081dzfp 2.5 mg by mouth once dailyAmlodipine 5 mg tablet Active 2.5 MG PO Daily January 27, 2024 11:00pm Complies with drug therapyStart: 48-08-0343vroh 2.5 mg by mouth once dailyAmlodipine Active 2.5 MG PO Daily January 28, 2024 12:00amStart: 86-77-1908qlkl 0.5 tablet by mouth once dailyamLODIPine (NORVASC) 5 MG tablet Take 0.5 (one-half) tablet (2.5 mg total) by mouth daily . 15 tablet 11 01/23/2024 Activetake 1 tablet by mouth once dailyamLODIPine (NORVASC) 2.5 MG tablet Take 1 tablet by mouth daily Activeatorvastatin 10 mg oral tablet (20 sources)HMG-CoA Reductase InhibitorStart: 01-23-2024 End: 10-34-8932iqhh 1 tablet by mouth once dailyAtorvastatin 10 mg tablet Active 10 MG PO Daily January 27, 2024 11:00pm Complies with drug therapybaclofen 5 mg oral tablet (1 source)gamma-Aminobutyric Acid-ergic AgonistStart: 01-22-2024 End: 96-41-5356covstrcm 5 mg oral tablet 5 mg = 1 tab(s), Oral, TID, take at night for first dose to assess response. Then take as needed for muscle spasms/pain, X 30 day(s), # 90 tab(s), Refills(s) 0, Pharmacy: [id number], 188, cm, 01/22/24 10:40:00 EDT, Height/Length Dosing, 86.2, kg, 01/22/24 10:40:00 EDT, Weight Dosing Start Date: 01/22/24 Stop Date: 02/21/24 Status: Orderedcefdinir 300 mg oral capsule (6 sources)Cephalosporin AntibacterialStart: 59-92-0572Dsukmete 300 MG as directed Orally bid for 7 days Jun, Activecholecalciferol 0.05 mg oral capsule (20 sources)Vitamin DStart: 34-27-4860glbjkggyohilfwb, vitamin D3, 50 mcg (2,000 unit) cap Take 2.5 (two and a half) capsules by mouth daily . 10/23/2021 Active Start: 66-53-3851bqir 1 tablet by mouth once dailyCholecalciferol (Vitamin D3) (Vitamin D3) 50 mcg (2,000 unit) Tablet Active 50 MCG PO Daily October 22, 2021 11:00pm Complies with drug therapyCholecalciferol (VITAMIN D) 50 MCG (2000 UT) CAPS capsule Take 5,000 Units by mouth daily ActiveCholecalciferol (VITAMIN D) 50 MCG (2000 UT) CAPS capsule Take by mouth Activetake 1 capsule by mouth once dailyCholecalciferol (VITAMIN D3) 50 MCG (2000 UT) CAPS Take 2,000 Units by mouth daily 0 Activecolchicine 0.6 mg oral tablet (20 sources)Start: 27-23-4246xpmc 1 tablet by mouth once dailycolchicine (COLCRYS) 0.6 MG tablet Take 1 tablet by mouth daily 30 tablet 3 03/14/2024 Activecyclobenzaprine hydrochloride 5 mg oral tablet (1 source)Muscle RelaxantStart: 12-17-2023 End: 14-33-2430wfcm 1 tablet by mouth three times dailycyclobenzaprine 5 mg Tab 5 mg = 1 tab(s), Oral, TID, X 30 day(s), # 90 tab(s), Refills(s) 0, Pharmacy: [id number], 188, cm, 12/17/23 10:03:00 EDT, Height/Length Dosing, 90, kg, 12/17/23 10:03:00 EDT, Weight Dosing Start Date: 12/17/23 Stop Date: 01/16/24 Status: Ordereddoxycycline monohydrate 100 mg oral capsule (1 source)Tetracycline-class DrugStart: 12-06-2021 End: 41-91-0870hagb 1 capsule by mouth twice dailydoxycycline monohydrate (MONODOX) 100 MG capsule Indications: COPD exacerbation (HCC) Take 1 capsule by mouth 2 times daily for 7 days 14 capsule 0 12/06/2021 12/13/2021 Active eplerenone 25 mg oral tablet (20 sources)Aldosterone AntagonistStart: 72-07-2468wdbo 1 tablet by mouth once dailyeplerenone (INSPRA) 25 MG tablet Indications: Shortness of breath , Edema of right lower leg , Edema of left foot Take 1 tablet by mouth daily 30 tablet 3 01/19/2025 ActiveStart: 09-11-2021 End: 73-49-7657wywi 1 tablet by mouth once dailyEplerenone 25 mg tablet Discontinued 25 MG PO Daily October 22, 2021 11:00pm November 19, 2023 9:52am esomeprazole 40 mg delayed release oral capsule (20 sources)Proton Pump InhibitorStart: 47-33-7584zldg 1 capsule by mouth once dailyEsomeprazole Magnesium 40 mg capsule,delayed release(DR/EC) Active 40 MG PO Daily December 07, 2024 11:00pm Complies with drug therapyStart: 07-03-2023 take 20 mg by mouth once dailyesomeprazole 20 mg, Oral, Daily, Refills(s) 0 Start Date: 07/03/23 Status: Orderedesomeprazole (NexIUM) [address] capsule 1 capsule 1 (one) time each day at the same time ActiveComment on above:Take 20 mg by mouth DAILY (6 AM).ferrous sulfate 325 mg oral tablet (20 sources)Start: 71-76-8321gqir 1 tablet by mouth once dailyFerrous Sulfate (Ferosul) 325 mg (65 mg iron) tablet Active 325 MG PO Daily December 07, 2024 11:00pm Complies with drug therapyStart: 12-18-2020 End: 56-53-1332vvee 1 tablet by mouth once dailyFerrous Sulfate (Ferosul) 325 mg (65 mg iron) tablet Discontinued 325 MG PO Daily October 22, 2021 11:00pm November 19, 2023 9:51amtake 1 tablet by mouth once dailyFerrous Sulfate 325 (65 Fe) MG 1 tablet Orally Once a day ActiveComment on above:Take 325 mg by mouth. furosemide 20 mg oral tablet (20 sources)Loop DiureticStart: 80-81-3110mmjy 1 tablet by mouth twice daily furosemide (LASIX) 20 MG tablet Take 1 tablet by mouth 2 times daily 60 tablet 11 11/25/2024 ActiveStart: 88-24-9491rpxs 1 tablet by mouth once dailyfurosemide (LASIX) 20 MG tablet Indications: Shortness of breath , Edema of right lower leg , Edemaof left foot Take 1 tablet by mouth daily 30 tablet 11 01/20/2025 Active Start: 89-29-1596uodt 1 tablet by mouth once dailyfurosemide (LASIX) 20 MG tablet Take 1 tablet by mouth daily 30 tablet 11 12/14/2020 ActiveStart: 10-20-2020 End: 59-58-5839azmr 1 tablet by mouth once dailyfurosemide (LASIX) 20 MG tablet Take 1 tablet by mouth daily for 15 days 15 tablet 0 10/20/2020 11/04/2020 ActiveComment on above:Take 20 mg by mouth once daily.hydrocortisone 25 mg/ml topical cream (20 sources)CorticosteroidStart: 05-43-4117usemflwvstgcyt 2.5 % cream Indications: Other specified dermatitis Apply topically 2 (two) times a day as needed (Rash) Apply thin layer to affected areas on the face bid prn for flares 30 g 1 03/08/2024 ActiveNebulizer Air Tube/Plugs - (11 sources)Start: 22-51-5073Fustfklcq Air Tube/Plugs - as directed qid for 30 days Pt has COVID - needs neb tubing, thank you Mar, Activeomeprazole 20 mg delayed release oral capsule (20 sources)Proton Pump InhibitorStart: 66-35-9640axqs 1 capsule by mouth once dailyomeprazole 20 mg Cap-DR 20 mg = 1 cap(s), Oral, Daily, Refills(s) 0 Start Date: 03/03/24 Status: OrderedStart: 02-23-2019 End: 78-35-9261vqpd 1 tablet by mouth once dailyOmeprazole 20 mg Tablet,Delayed Release (Dr/Ec) Discontinued 20 MG PO Daily October 22, 2021 11:00pmSept2024 8:33amtake 1 capsule by mouth every twenty-four hoursOmeprazole 20 MG 1 capsule Orally Once a day ActiveComment on above:Take 20 mg by mouth. predniSONE 20 mg oral tablet (17 sources)Start: 82-14-2301lzuc 2 tablets by mouth every twenty-four hours predniSONE 20 MG 2 tablets Orally Once a day for 5 days May, Active Start: 12-06-2021 End: 61-26-1043ajoa 2 tablets by mouth once dailypredniSONE (DELTASONE) 20 MG tablet Indications: COPD exacerbation (HCC) Take 2 tablets by mouth daily for 5 days 10 tablet 0 12/06/2021 12/11/2021 ActiveStart: 12-14-2020 End: 18-61-5966teavaqTIRY (DELTASONE) 20 MG tablet Take 1 tablet by mouth See Admin Instructions 38 tablet 0 12/14/2020 01/18/2021 ActiveStart: 10-20-2020 End: 25-88-5062jblb 2 tablets by mouth once dailypredniSONE (DELTASONE) 20 MG tablet Take 2 tablets by mouth daily for 5 days 10 tablet 0 Activerivaroxaban 20 mg oral tablet (20 sources)Factor Xa InhibitorStart: 15-18-6353ekfo 2 tablets by mouth once daily at dinnerRivaroxaban (Xarelto) 20 mg tablet Active 40 MG PO Daily December 22, 2024 9:33am must administer with evening meal Complies with drug therapyStart: 08-18-2020 End: 01-46-1931epbf 1 tablet by mouth once daily at dinnerRivaroxaban (Xarelto) 20 mg Tablet Discontinued 20 MG PO Daily October 22, 2021 11:00pm December 22, 2024 9:34am must administer with evening meal End: 06-25-9160bnxwczqffib (Xarelto) 2.5 MG tablet 07/29/2024 Discontinued (Duplicate order)Comment on above:Take 20 mg by mouth daily with dinner. spironolactone 25 mg oral tablet (12 sources)Aldosterone AntagonistStart: 89-77-6302klzo 1 tablet by mouth once dailyspironolactone (ALDACTONE) 25 MG tablet Take 1 tablet by mouth daily 90 tablet 1 07/06/2021 ActiveComment on above:Take 1 tablet by mouth once daily. Vitamin D (7 sources)Start: 00-69-3861Fkmftvq D Refills(s) 0 Start Date: 09/17/23 Status: OrderedVitamin D3 5000 intl units (125 mcg) oral tab (1 source)Start: 83-58-6707qpcx 1 tablet by mouth once dailyVitamin D3 5000 intl units (125 mcg) oral tab 125 mcg = 1 tab(s), Oral, Daily, Refills(s) 0 Start Da te: 03/03/24 Status: Ordered Completed/Discontinued Medications MedicationDrug Class(es)DatesSig (Normalized)Sig (Original)[id number] 200 actuat albuterol 0.09 mg/actuat metered dose inhaler (20 sources)beta2-Adrenergic AgonistStart: 06-21-2024 End: 60-27-3117gvxx 1 puff(s) by inhalation every four to six hours as needed Albuterol Sulfate 90 mcg/actuation HFA aerosol inhaler Discontinued 2 PUFF INHALATION EVERY 4-6 HOURS as needed for bronchospasm 8.5 0 June 20, 2024 11:00pm December 08, 2024 8:33amStart: 01-28-2024 End: 99-71-4635gvhc 2.5 mg by inhalation every four to six hours as needed for wheezingAlbuterol Sulfate 2.5 mg /3 mL (0.083 %) solution for nebulization Discontinued 2.5 MG INHALATION EVERY 4-6 HOURS as needed for shortness of breath or wheezing 90 0 January 27, 2024 11:00pm June 21, 2024 2:01pm Bronchitis Bronchitis, not specified as acute or chronicStart: 12-06-2021 End: 35-05-1097bhqj 2 puff(s) by inhalation every six hours [...] tablet (20 sources)Xanthine Oxidase InhibitorStart: 06-05-2023 End: 07-57-7017lkss 1 tablet by mouth once dailyAllopurinol 300 mg tablet Discontinued 300 MG PO Daily May 07, 2024 9:26am August 12, 2024 1:03pm Start: 05-29-2023 End: 45-19-4759frkl 1 tablet by mouth once dailyAllopurinol 300 mg tablet Discontinued 0 .ROUTE .COMPLEX 90 3 May 29, 2023 2:21pm May 1:12pm TAKE 1 TABLET BY MOUTH DAILYStart: 05-29-2023 End: 34-99-3740cqgb 1 tablet by mouth once dailyAllopurinol Discontinued 0 .ROUTE .COMPLEX 90 May 29, 2023 3:21pm June 05, 2023 2:12pm TAKE 1 TABLET BY MOUTH DAILYStart: 02-23-2019 End: 13-22-3464wije 1 tablet by mouth once dailyAllopurinol 300 mg tablet Discontinued 300 MG PO Daily February 23, 2019 12:00am May 29, 2023 2:21pmComment on above:Take 300 mg by mouth once daily.aspirin 81 mg delayed release oral tablet (20 sources)Platelet Aggregation Inhibitor, Nonsteroidal Anti-inflammatory Drug Start: 01-28-2024 End: 25-08-2629cllg 1 tablet by mouth once dailyAspirin 81 mg tablet,delayed release (DR/EC) Discontinued 81 MG PO Daily January 27, 2024 11:00pmFebruary 2024 11:26amStart: 15-46-2532cgqfkpm 81 MG chewable tablet Chew 81 mg in the morning. 01/01/2024 Activeazithromycin 250 mg oral tablet (20 sources)Macrolide AntimicrobialStart: 01-28-2024 End: 05-19-9739Tdchvjqkdmed 250 mg tablet Discontinued 0 PO daily 6 5 0 Nabor 17th, 2024 12:00am May 07, 2024 9:05am Bronchitis Bronchitis, not specified as acute or chronic Take 2 on day 1 and then take 1for the next 4 days (days 2-5)Start: 40-44-8916Rdarfttaxqmg Active 0 PO daily 6 5 January 28, 2024 12:00am Take 2 on day 1 and then take 1 for the next 4 days (days 2-5)Start: 06-05-2023 End: 32-92-7415iwqm 2 tablets by mouth once daily, then take 1 tablet by mouth onceAzithromycin 250 mg tablet Discontinued 250 MG PO daily 6 5 June 05, 2023 12:00am November 19, 2023 9:51am Bronchitis Bronchitis, not specified as acute or chronic Take 2 tablets today and then 1for each additional day for 4 daysStart: 79-30-9857Ggatpgmulcwe 250 MG as directed Orally 2 tabs po today, then 1 tab daily x 4 more days for 5 Jun, Activebenzonatate 200 mg oral capsule (20 sources)Non-narcotic AntitussiveStart: 01-28-2024 End: 66-41-8923izdp 1 capsule by mouth three times daily as needed for cough Benzonatate 200 mg capsule Discontinued 200 MG PO Three times daily as needed for cough 30 10 March 16, 2024 12:00am May 07, 2024 9:25am Bronchitis Bronchitis, not specified as acute or chronicStart: 30-16-8747tymv 1 capsule by mouth every eight hoursBenzonatate 200 MG 1 capsule Orally Three times a day for 10 day(s) Jun, Activebetamethasone 0.5 mg/ml / clotrimazole 10 mg/ml topical cream (7 sources)Azole Antifungal, CorticosteroidStart: 04-30-2024 End: 59-40-6680Xyvckdyiaibs-Betamethasone 1-0.05 % cream Discontinued 1 APPLIC TOPICAL Twice daily 15 7 April 30, 2024 12:00am December 08, 2024 8:29amCalcium (4 sources)Phosphate Binder, CalciumCALCIUM ORAL Take by mouth. 0 ActiveComment on above:Take by mouth.calcium carbonate 1250 mg oral tablet (20 sources)Start: 10-23-2021 End: 79-92-5224ngrl 1 tablet by mouth once dailyCalcium Carbonate (Calcium 500) 500 mg calcium (1,250 mg) Tablet Discontinued 500 MG PO Daily October 22, 2021 11:00pm November 19, 2023 9:51amtake 2 tablets by mouth every twenty-four hours Calcium 600 MG 2 tablet with meals Orally Once a day Activetake 2 tablets by mouth every twenty-four hoursCalcium 600 MG 2 tablet with meals Orally Once a day Activetake 1 tablet by mouth once dailycalcium carbonate (OSCAL) 500 MG TABS tablet Take 1 tablet by mouth daily 0 Activecephalexin 500 mg oral capsule (18 sources)Cephalosporin AntibacterialStart: 12-22-2024 End: 06-95-0944vwim 1 capsule by mouth twice dailyCephalexin 500 mg capsule Discontinued 500 MG PO Twice daily 20 10 0 December 21, 2024 11:00pm February 07, 2025 2:24pm Cellulitis of right foot Cellulitis of right lower limbStart: 07-02-2024 End: 53-95-0343dzjc 1 capsule by mouth twice dailyCephalexin 500 mg capsule Discontinued 500 MG PO Twice daily 10 July 01, 2024 11:00pm 2024 8:28amStart: 06-21-2024 End: 59-24-8690xssk 1 capsule by mouth three times dailyCephalexin 500 mg capsule Discontinued 500 MG PO Three times daily 30 10 June 21, 2024 2:03pm December 08, 2024 8:28amStart: 04-30-2024 End: 16-88-0958nbul 1 capsule by mouth three times dailyCephalexin 500 mg capsule Discontinued 500 MG PO Three times daily 7 0 April 30, 2024 12:00am May 07, 2024 9:06amfluticasone/umeclidin/vilanter (TRELEGY ELLIPTA INHALATION) (4 sources)fluticasone/umeclidin/vilanter (TRELEGY ELLIPTA INHALATION) Inhale as instructed. 0 ActiveComment on above:Inhale as instructed.gadoterate meglumine (DOTAREM) injection 20 mL (1 source)Start: 11-03-2019 End: 56-59-6100clpnxaaiww meglumine (DOTAREM) injection 20 mL24 hr isosorbide mononitrate 30 mg extended release oral tablet (20 sources)Nitrate VasodilatorStart: 05-07-2024 End: 38-33-0587heli 1 tablet by mouth once daily, then take 1 tablet by mouth every twenty-four hoursIsosorbide Mononitrate 30 mg tablet extended release 24 hr Discontinued 30 MG PO Daily May 07, 2024 12:00am May 26, 2024 11:29amStart: 15-51-4327ujeycmmmoy mononitrate ER (Imdur) 30 MG 24 hr tablet 12/25/2023 ActiveStart: 07-73-3185jxywfdqylx mononitrate 30 mg ER Tab Refills(s) 0 Start Date: 12/25/23 Status: OrderedStart: 51-88-2922trlq 0.5 tablet by mouth once dailyisosorbide mononitrate (IMDUR) 30 MG extended release tablet Take 0.5 tablets by mouth daily 30 tablet 3 12/24/2023 Activelatanoprost 0.05 mg/ml ophthalmic solution (20 sources)Prostaglandin AnalogStart: 03-16-2024 End: 89-06-5302Wybkpwxxpqy 0.005 % drops Discontinued DROPS OPHTHALMIC March 16, 2024 12:00am November 8:33amStart: 85-62-2710avhpqfbtzdi (Xalatan) 0.005 % ophthalmic solution 02/13/2023 ActiveStart: 60-81-6677agiv 1 drop(s) into the eye(s) once daily [...] mouth once daily.methylPREDNISolone 4 mg oral tablet (14 sources)CorticosteroidStart: 05-26-2024 End: 59-27-1994Royzowqincukiicrwe 4 mg tablets,dose pack Discontinued 0 PO per package directions 21 0 May 26, 2024 12:00am June 21, 2024 1:59pm PO PER PKG DIR for 6 daysStart: 12-18-5932blddndWKFSASHhwevg 4 MG as directed Orally for 6 days Jun, ActiveStart: 10-20-2020 End: 08-61-0069xfvfrmQAACOZVudkza sodium (SOLU-MEDROL) injection 125 mg metoprolol tartrate 25 mg oral tablet (16 sources)beta-Adrenergic BlockerStart: 05-07-2024 End: 36-54-0235Cniajesjul Tartrate 25 mg tablet Discontinued 12.5 MG PO Daily May 07, 2024 12:00am May 26, 2024 11:29amStart: 04-01-9531jjcr 1 tablet by mouth once dailyLopressor 25 mg oral tablet 25 mg = 1 tab(s), Oral, Daily, Refills(s) 0 Start Date: 12/25/23 Status:OrderedStart: 19-92-8683eguk 0.5 tablet by mouth twice dailymetoprolol tartrate (LOPRESSOR) 25 MG tablet Take 0.5 tablets by mouth 2 times daily 60 tablet 12/24/2023 Activemontelukast 10 mg oral tablet (20 sources)Leukotriene Receptor AntagonistStart: 12-24-2023 End: 40-14-1750nftx 1 tablet by mouth once daily at bedtimeMontelukast 10 mg tablet Discontinued 0 .ROUTE .COMPLEX 30 0 December 24, 2023 12:33pm March 16, 2024 10:15am TAKE 1 TABLET BY MOUTH DAILY AT BEDTIMEStart: 11-19-2023 End: 07-31-8589czzk 1 tablet by mouth once daily at bedtimeMontelukast (Singulair) 10 mg tablet Discontinued 10 MG PO Daily at bedtime 30 0 November 18, 2023 11:00pm December 24, 2023 12:33pmOmeprazole Magnesium (Prilosec Otc) 20 mg Tablet,Delayed Release (Dr/Ec) (7 sources)Start: 02-23-2019 End: 24-52-0792jzkq 1 tablet by mouth once dailyOmeprazole Magnesium (Prilosec Otc) 20 mg Tablet,Delayed Release (Dr/Ec) Discontinued 1 TAB PO Daily February 23, 2019 12:00am October 23, 2021 10:45amStart: 02-23-2019 End: 61-54-7472ipkh 1 tablet by mouth once dailyOmeprazole Magnesium (Prilosec Otc) 20 mg Tablet,Delayed Release (Dr/Ec) Discontinued 1 TAB PO Daily February 23, 2019 1:00am October 23, 2021 11:45amsulfur hexafluoride microspheres (LUMASON) 60.7-25 MG injection 2 mL (1 source)Start: 01-17-2025 End: 89-29-9884jokj 1 dose intravenously once2 mL, IntraVENous, IMG ONCE PRN, 1 dose, Starting on Fri01/17/25 at 1602, Until Fri01/17/25 at 1602, Other technetium sestamibi (CARDIOLITE) injection 10 millicurie (1 source)Start: 12-23-2023 End: 68-53-5417akpo 1 dose intravenously once10 millicurie, IntraVENous, IMG ONCE PRN, 1 dose, Starting on Fri12/23/23 at 0706, Until Fri12/23/23 at 0657, Othertechnetium sestamibi (CARDIOLITE) injection 30 millicurie (1 source)Start: 12-23-2023 End: 97-71-3500tvre 1 dose intravenously once30 millicurie, IntraVENous, IMG ONCE PRN, 1 dose, Starting on Fri12/23/23 at 0706, Until Fri12/23/23 at 0807, Othertriamcinolone acetonide 1 mg/ml topical cream (12 sources)CorticosteroidStart: 02-23-2019 End: 67-74-3906Swdohherzrcdw Acetonide 0.1 % cream Discontinued 1 DOSE TOPICAL As Directed February 23, 2019 12:00am October 23, 2021 10:45amStart: 02-23-2019 End: 93-73-4222Khdpjqihltxqr Acetonide Discontinued 1 DOSE TOPICAL As Directed February 23, 2019 1:00am October 23, 2021 11:45am Problems Active Problems Problem ClassificationProblemDateDocumented DateEpisodic/ChronicAbdominal pain (6 sources)Lower abdominal pain, unspecified; Translations: [Generalized abdominal pain]Onset: 19-24-9294DpaefeihGdmqrtst foot deformities (5 sources)Hammer toe; Translations: [Other hammer toe(s) (acquired), left foot] 89-40-0752TyqzhizCppmpgkb reactions (3 sources)Eczema; Translations: [Other specified dermatitis]67-74-6522Njlufpas Cardiac and circulatory congenital anomalies (4 sources)Atrioventricular septal defect and common atrioventricular junction; Translations: [Atrioventricular septal defect]ChronicCardiac dysrhythmias (20 sources)Atrial flutter; Translations: [Unspecified atrial flutter]Onset: 37-36-9094YdcczyeXizdgdk obstructive pulmonary disease and bronchiectasis (20 sources)Chronic obstructive lung disease; Translations: [Chronic obstructive pulmonary disease, unspecified]Onset: 17-37-5791HhfwuxuStjgwna obstructive pulmonary disease and bronchiectasis (20 sources)Bronchitis, not specified as acute or chronic; Translations: [Bronchitis]Onset: 19-28-8192JxuwxbvlPugthah ulcer of skin (6 sources)Non-pressure chronic ulcer of right heel and midfoot limited to breakdown of skin; Translations: [Ulcer of heel and midfoot]08-14-3480Wfydcma Coronary atherosclerosis and other heart disease (2 sources)Angina pectoris, unspecified; Translations: [Angina pectoris, unspecified]Onset: 20-64-1815DanvnpuBwravevwom and other anemia (1 source)Normocytic anemia; Translations: [Anemia, unspecified]Episodic Deficiency and other anemia (20 sources)Iron deficiency anemia; Translations: [Iron deficiency anemia, unspecified]13-32-5057OnfowundCknekqwwkl and other anemia (2 sources)Iron deficiency anemia, unspecified; Translations: [Iron deficiency anemia]Onset: 10-04-2021 Resolved: 86-21-0005GwfdverjOfilguuew of lipid metabolism (8 sources)Dyslipidemia; Translations: [Hyperlipidemia, unspecified]12-08-2024 ChronicEsophageal disorders (20 sources)Gastroesophageal reflux disease; Translations: [Gastro-esophageal reflux disease without esophagitis]Onset: 10-04-2021 Resolved: 40-09-6344AmsynpiObsuoqm on above:Problem List clean-up per request of Phys. EHR CmteEssential hypertension (20 sources)Essential hypertension; Translations: [Essential (primary) hypertension]Onset: 61-04-8159BsowbwfJjycfowutiiftuyz hemorrhage (12 sources)Rectal hemorrhage; Translations: [Hemorrhage of anus and rectum] EpisodicGout and other crystal arthropathies (20 sources)Gout; Translations: [Gout, unspecified]Onset: ChronicHeart valve disorders (11 sources)Aortic valve stenosis; Translations: [Nonrheumatic aortic (valve) stenosis]Onset: 26-90-2986WljwdazXikckdnkfcobn and screening for infectious disease (7 sources)Suspected disease caused by 2019-nCoV; Translations: [Suspected COVID-19 virus infection]EpisodicInflammatory conditions of male genital organs (13 sources)Acute infective balanitis; Translations: [Balanitis]04-30-2024 ChronicMycoses (20 sources)Onychomycosis due to dermatophyte ; Translations: [Tinea unguium] Onset: 739127-84-0142RecdnjauSgmesfdnz of unspecified nature or uncertain behavior (1 source)Monoclonal gammopathy of uncertain significance; Translations: [Monoclonal gammopathy]ChronicNeoplasms of unspecified nature or uncertain behavior (2 sources)Neoplastic disease; Translations: [Neoplasm of unspecified behavior of bone, soft tissue, and skin]96-30-5249UhyvpuyoCvksqcwtmwwj breast conditions (2 sources)Mastodynia; Translations: [Pain of breast]EpisodicNutritional deficiencies (12 sources)Vitamin D deficiency; Translations: [Vitamin D deficiency, unspecified]Onset: 31-15-8219JxfaghfSpvy wounds of extremities (1 source)Injury of ankle; Translations: [Unspecified open wound, unspecified ankle, initial encounter]60-61-7526BdivbjivEcvjc aftercare (2 sources)Encounter for removal of suturesEpisodicOther [...] left foot; Translations: [Pain in left toe(s)] 06-09-4681VrtwregiKtdzz diseases of veins and lymphatics (12 sources)Peripheral venous insufficiency; Translations: [Venous insufficiency (chronic) (peripheral)]EpisodicOther ear and sense organ disorders (1 source)Infective otitis externa; Translations: [Unspecified infective otitis externa]Onset: 97-05-1989OgqzxdiHagxu ear and sense organ disorders (4 sources)Sensorineural hearing loss, bilateral; Translations: [Sensorineural hearing loss, bilateral]Onset: 570383-22-1026IlnyrvjLrtlc ear and sense organ disorders (1 source)Sensorineural hearing loss, bilateral; Translations: [Sensorineural hearing loss, bilateral]Onset: 12-77-2900WiedtenAdaya ear and sense organ disorders (1 source)Impaired auditory discrimination; Translations: [Other abnormal auditory perceptions, bilateral]56-13-1850BbmqfgpuWlkxr eye disorders (1 source)Unspecified optic atrophy; Translations: [...] (10 sources)Dyspnea, unspecified; Translations: [Other respiratory abnormalities]Onset: 96-60-8853GehxjpzoMvfkg lower respiratory disease (1 source)Solitary pulmonary nodule; Translations: [Solitary pulmonary nodule] EpisodicOther lower respiratory disease (1 source)Solitary nodule of lung; Translations: [Solitary pulmonary nodule] EpisodicOther lower respiratory disease (14 sources)Dyspnea; Translations: [Shortness of breath]Onset: 04-29-2024 15-99-9437VosnwkptBakih lower respiratory disease (4 sources)Chronic cough; Translations: [Chronic cough]27-50-4653CkrtojzgSdqfn lower respiratory disease (2 sources)Shortness of breath; Translations: [Shortness of breath]Onset: 86-19-4524BdjngqypPzcdy nervous system disorders (12 sources)Chronic pain; Translations: [Other chronic pain]ChronicOther nervous system disorders (20 sources)Neuropathy; Translations: [Idiopathic progressive neuropathy]Onset: 356482-05-1992RfolvgkYqjbc nervous system disorders (8 sources)Idiopathic progressive polyneuropathy; Translations: [Idiopathic progressive neuropathy]67-08-6137JndtexhZpbuk non-traumatic joint disorders (12 sources)Hip pain; Translations: [Pain in unspecified hip]EpisodicOther non- traumatic joint disorders (1 source)Pain in left kneeEpisodicOther non-traumatic joint disorders (2 sources)Arthralgia of the lower leg; Translations: [Pain in right knee] EpisodicOther screening for suspected conditions (not mental disorders or infectious disease) (2 sources)Imaging result abnormal; Translations: [Abnormal findings on diagnostic imaging of other specified body structures]ChronicOther screening for suspected conditions (not mental disorders or infectious disease) (20 sources)Electrocardiogram abnormal; Translations: [Abnormal electrocardiogram [ECG] [EKG]]Onset: 46-22-5212VlobpwdcColbn skin disorders (1 source)Finding of color of limb; Translations: [Disorder of pigmentation, unspecified]EpisodicOther skin disorders (1 source)Dyshidrosis [pompholyx]; Translations: [Dyshidrosis [pompholyx]] EpisodicOther skin disorders (1 source)Vesicular eczema of hands and/or feet; Translations: [Dyshidrosis [pompholyx]]EpisodicOther skin disorders (2 sources)Seborrheic keratosis; Translations: [Other seborrheic keratosis] 98-84-5183YfkxezmvNtctq skin disorders (5 sources)Actinic keratosis; Translations: [Actinic keratosis]03-08-2024 EpisodicOther skin disorders (2 sources)Inflamed seborrheic keratosis; Translations: [Inflamed seborrheic keratosis]26-56-3401VlmozvgeRxuzh skin disorders (2 sources)Callosity; Translations: [Corns and callosities]98-02-8764Qwpmlmeh Other upper respiratory disease (12 sources)Nasal congestion; Translations: [Nasal congestion]35-27-2810Leyjjexr Other upper respiratory disease (7 sources)Nasal congestion; Translations: [Other disease of nasal cavity and sinuses]93-31-2281VkjdjqizJaagp upper respiratory infections (2 sources)Chronic sinusitis, unspecified; Translations: [Chronic sinusitis] ChronicOther upper respiratory infections (15 sources)Acute pharyngitis; Translations: [Acute pharyngitis, unspecified] Onset: 096868-16-5977LksnjafnBdsqvf media and related conditions (6 sources)Perforation of right tympanic membrane; Translations: [Unspecified perforation of tympanic membrane, right ear]13-18-2510WqndfujcHrowzmno codes; unclassified (1 source)Peripheral edema; Translations: [Edema, unspecified]EpisodicResidual codes; unclassified (1 source)Edema of lower extremity; Translations: [Localized edema]Episodic Residual codes; unclassified (1 source)Tobacco use; Translations: [Tobacco use]EpisodicResidual codes; unclassified (3 sources)Localized edema; Translations: [Localized edema]Onset: 01-19-2025 EpisodicResidual codes; unclassified (1 source)Tobacco user; Translations: [Tobacco use]EpisodicResidual codes; unclassified (7 sources)Uncircumcised penis; Translations: [Other specified health status] 22-37-6937PbmclsluPthmlsag codes; unclassified (3 sources)Other specified health status; Translations: [Other specified conditions influencing health status]83-14-2497GsdmblcbUatyxwzo codes; unclassified (3 sources)Edema of right lower leg; Translations: [Localized edema]01-19-2025 EpisodicResidual codes; unclassified (3 sources)Edema of foot; Translations: [Localized edema]68-33-0218CjnuscctDpco and subcutaneous tissue infections (6 sources)Cellulitis of left finger; Translations: [Cellulitis of finger of left hand]86-43-6327BhjtiyuaDuzglmhsdkr; intervertebral disc disorders; other back problems (20 sources)Degeneration of lumbar intervertebral disc; Translations: [Other intervertebral disc degeneration, lumbar region]11-43-5407EtlwjodQupeaopnfov; intervertebral disc disorders; other back problems (4 sources)Sacrococcygeal disorders, not elsewhere classified; Translations: [Disorder of sacrum]Onset: 75-36-5716TxhdbwamPbcmhzj and strains (2 sources)Sprain of knee and leg; Translations: [Sprain and strain of other specified sites of knee and leg]EpisodicSuperficial injury; contusion (3 sources)Abrasion of foot, infected; Translations: [Abrasion, right foot, initial encounter]00-48-0234AdxwyuztMjcanifuxcti (1 source)Compression fracture of thoracic vertebra; Translations: [Compression fracture of thoracic vertebra, initial encounter, unspecified thoracic vertebral level (HCC)]Unclassified (1 source)CONTACT W/AND (SUSP) EXPOS COVID-19; Translations: [CONTACT W/AND (SUSP) EXPOS COVID-19]Onset: 91-81-6764Tsaklgmtcdag (1 source)Unspecified infective otitis externa; Translations: [Unspecified infective otitis externa]Onset: 59-41-1230Ehtrmkboxqbi (1 source)Need for prophylactic vaccination and inoculation, Influenza; Translations: [Need for prophylactic vaccination and inoculation, Influenza] Onset: 64-67-0509Zwrwkywvbvrg (1 source)Body mass index 27.0-27.9, adult; Translations: [Body mass index 27.0- 27.9, adult]Onset: 21-37-6406Fxkvflflznus (1 source)Bacterial infection, unspecified, in conditions classified elsewhere and of unspecified site; Translations: [Bacterial infection, unspecified, in conditions classified elsewhere and of unspecified site]Onset: 05-07-2017 Unclassified (1 source)Pain in joint, pelvic region and thigh; Translations: [Pain in joint, pelvic region and thigh]Onset: 89-68-6827Dlixxefcrzef (1 source)Special screening for malignant neoplasm of prostate; Translations: [Special screening for malignant neoplasm of prostate]Onset: 06-29-2014 Unclassified (1 source)Chronic atrial fibrillation, unspecified; Translations: [Chronic atrial fibrillation, unspecified (HCC)]Onset: 65-91-3819Beqhkpdu veins of lower extremity (18 sources)Venous stasis ulcer of leg; Translations: [Varicose veins of right lower extremity with ulcer of unspecified site]Onset: Episodic Past or Other Problems Problem ClassificationProblemDateDocumented DateEpisodic/ChronicBacterial infection; unspecified site (1 source)Bacterial infectious disease; Translations: [Bacterial infection, unspecified, in conditions classified elsewhere and of unspecified site]Onset: 22-19-8181DztfvlxbYrjsqckmrx and other anemia (20 sources)Anemia; Translations: [Anemia, unspecified]Onset: 02-24-2019 07-04-1611ZirivvqtDkebtgi and fatigue (10 sources)Fatigue; Translations: [Other fatigue]Onset: 13-05-2857Ggnhmumu Nonspecific chest pain (4 sources)Chest pain; Translations: [Chest pain, unspecified]Onset: 06-23-2024 09-47-2813MbxmzbwlAhtsz and unspecified benign neoplasm (2 sources)Benign neoplasm of colon; Translations: [Benign neoplasm of colon] Onset: 17-51-8610NbvzcskkZnggx connective tissue disease (1 source)Loss of height; Translations: [Loss of height]Onset: 10-26-2015 EpisodicOther connective tissue disease (1 source)Decrease in height; Translations: [Loss of height]Onset: 10-26-2015 EpisodicOther ear and sense organ disorders (2 sources)Acute otitis externa; Translations: [Acute swimmers' ear]Onset: 45-51-5167RjfwnszrFlugy injuries and conditions due to external causes (1 source)Closed injury of head; Translations: [Closed head injury, initial encounter]EpisodicOther lower respiratory disease (20 sources)Nodule of lung; Translations: [Solitary pulmonary nodule]Onset: 379623-04-5846MgpggziwWiwsi lower respiratory disease (1 source)Other abnormalities of breathing; Translations: [OTHER ABNORMALITIES OF BREATHING]Onset: 81-26-0307SeqovgmsVgtsv non-epithelial cancer of skin (20 sources)Basal cell carcinoma of face; Translations: [Basal cell carcinoma of skin of unspecified parts of face]Onset: 975225-43-0434GismbpajQozab non- traumatic joint disorders (1 source)Arthralgia of the pelvic region and thigh; Translations: [Pain in joint, pelvic region and thigh]Onset: 35-89-2425SiappjfcVvgbr nutritional; endocrine; and metabolic disorders (1 source)Overweight; Translations: [Overweight]Onset: 49-17-1168XusfgfzrKbrgj nutritional; endocrine; and metabolic disorders (1 source)Overweight; Translations: [Overweight]Onset: 52-21-5130SbmlltrlQkrmg nutritional; endocrine; and metabolic disorders (1 source)Body mass index 25-29 - overweight; Translations: [Body mass index 27.0-27.9, adult]Onset: 76-96-6915SusosxpiVwtlxgjo codes; unclassified (1 source)Requires influenza virus vaccination; Translations: [Need for prophylactic vaccination and inoculation, Influenza]Onset: 29-36-3037Mwfktmgs Unclassified (20 sources)Onset: 12-06-2021 Resolved: Viral infection (2 sources)Herpes zoster without complication; Translations: [Herpes zoster without mention of complication]Onset: 85-03-8815Gjzeodts Results Test NameValueInterpretationReference RangeFacilityVascular duplex reflux venous insufficiency study bilateralOrdered By: William Heath on 76-98-2321Soti FV Mid reflux1.8 s[address] Work Phone: [phone] GSV Junc Diam4.9 mmBon [address] Work Phone: [phone] GSV Junc Rfx3.4 s[address] Work Phone: Left Pop Rfx1.2 s[address] Work Phone: Left SSV Mid Diam2.40 mmBon [employer] Work Phone: Left SSV Mid Rfx4.8 s[address] Work Phone: [phone] SSV Prox Diam2.48 mmBon [address] Work Phone: [phone] SSV Prox Rfx2.3 s[address] Work Phone: Right AASV Prox reflux0.0 s[address] Work Phone: Right AASV proximal diameter2.30 mmBon [employer] Work Phone: Right CFV Rfx1.2 s[address] Work Phone: Right FV Mid reflux3.7 s[address] Work Phone: Right FV Prox reflux3.9 s[address] Work Phone: Right GSV Junc Diam5.5 mmBon [employer] Work Phone: Right GSV Junc Rfx0.0 s[address] Work Phone: Right Pop Rfx2.5 s[address] Work Phone: Right SSV Mid Diam2.00 mmBon [address] Work Phone: Right SSV Mid Rfx3.2 s[address] Work Phone: Right SSV Prox Diam1.90 mmBon [address] Work Phone: Right SSV Prox Rfx2.4 s[address] Work Phone: [address] Work Phone: [phone] duplex reflux venous insufficiency study bilateralon 22-89-1478Ipfy venous insufficiency (>1.0 sec) noted in the [...] 2.3 mm, 0 seconds There is a underwriting service representative noted in the distal calf with no reflux noted.[facility] CV CPACSRadiology Study observation (narrative)Bon [address] DavisBasic Metabolic Panelon 87-16-5881Ovipd gap [Moles/Vol]7 mmol/LLow9 - 17 mmol/LBon [facility] HospitalServioCalcium [Mass/Vol]9.7 mg/dL8.6 - 10.4 mg/dLBon [facility] HospitalServioChloride [Moles/Vol]103 mmol/L98 - 107 mmol/LBon [facility] HospitalServioCO2 [Moles/Vol]29 mmol/L20 - 31 mmol/LBon [facility] HospitalServioCreatinine [Mass/Vol] 1.5 mg/dLHigh0.7 - 1.2 mg/dLBon [address]Est, Glom Filt Ufcv67Sbl- PINFBon [facility] HospitalServioComment on above: These results are not intended [...] that affects renal tubular secretion. Glucose [Mass/Vol]100 mg/mVQptt36 - 99 mg/dLBon [address] Interpretation and review of laboratory resultsAbnormalBon [facility] HospitalServio Potassium [Moles/Vol]3.7 mmol/L3.7 - 5.3 mmol/LBon [facility] HospitalServioSodium [Moles/Vol]139 mmol/L135 - 144 mmol/LBon [facility] HospitalServioUrea nitrogen [Mass/Vol]30 mg/dLHigh8 - 23 mg/dLBon [facility]Bon [facility] CenterBasic Metabolic Profon 23-68-9425Mogfb gap [Moles/Vol]7 mmol/LLow9-17[facility] HospitalComment on above:Performed By: #### BMP #### [facility] [address] [id number] Senior Network Administrator: KIMANI Sawyeralcium [Mass/Vol]9.7 mg/dLNormal8.6-10.4[facility] HospitalComment on above:Performed By: #### BMP #### [facility] [address] [place] [address] Senior Network Administrator: KIMANI Sawyerhloride [Moles/Vol]103 mmol/BHtdpgf48-319CadnrWvumedicine Barnesville HospitalComment on above:Performed By: #### BMP #### [facility] [address] [place] [address] Senior Network Administrator: KIMANI SawyerO2 [Moles/Vol]29 mmol/GPcbjsx44-19HdhjiWvumedicine Barnesville HospitalComment on above:Performed By: #### BMP #### [facility] [address] [id number] Senior Network Administrator: KIMANI Sawyerreatinine [Mass/Vol]1.5 mg/dLHigh0.7-1.2MNationwide Children's HospitalComment on above:Performed By: #### BMP #### [facility] [address] [id number] Senior Network Administrator: William Iqbal MDGFR/1.73 sq M.predicted among non-blacks MDRD (S/P/Bld) [Vol rate/Area]46 mL/min/{1.73_m2}Low>60[facility] HospitalComment on above:Result Comment: These results are [...] renal tubular secretion.Performed By: #### BMP #### [facility] [address] [place] [address] Senior Network Administrator: William Iqbal MDGlucose [Mass/Vol]100 mg/oEOwkt70-67Cghiu [facility] HospitalComment on above:Performed By: #### BMP #### [facility] [address] [place] [address] Senior Network Administrator: VALENTINO Sawyerotassium [Moles/Vol]3.7 mmol/LNormal3.7-5.3Mmansfield hospitaly [facility] HospitalComment on above:Performed By: #### BMP #### [facility] [address] [place] [address] Senior Network Administrator: BRICE Sawyerodium [Moles/Vol]139 mmol/STqcsvc333-914EdxxuWvumedicine Barnesville HospitalComment on above:Performed By: #### BMP #### [facility] [address] [place] [address] Senior Network Administrator: William Iqbal MDUrea nitrogen [Mass/Vol]30 mg/dLHigh8-23[facility] HospitalComment on above:Performed By: #### BMP #### [facility] [address] [place] [address] Senior Network Administrator: William Iqbal MDVascular duplex lower extremity venous [...] Vein: Patent, compressible. Peroneal Vein: Patent, compressible. Supervisor Estimator And Drafter Details A wright scale, color Doppler imaging and spectral Doppler analysis ultrasound was performed. During the study longitudinal and transverse views were obtained. Pulsed wave doppler was performed. Overall the study quality was good.[facility] Albert Jefferson, - 01/19/2025 EXAM: VAS DUP LOWER EXTREMITY [...] the right lower extremity and subcutaneous edema. [facility] CenterRadiology Study observation (narrative)[facility] CenterVascular duplex lower extremity venous bilateralOrdered By: Albert Burnham on 44-47-6247[facility] [employer] Work Phone: Cardiac echo study ProcedureOrdered By: Asher Ugarte on 23-48-2726Py Root Index1.58 cm/m2Bon [employer] Work Phone: [phone] Root3.4 cmBon [employer] Work Phone: [phone] Aorta3.3 cmBon [employer] Work Phone: [phone] Aorta Index1.53 cm/m2Bon [employer] Work Phone: AV Area by Peak Velocity2.4 cm2Bon [employer] Work Phone: [phone] Area by VTI2.2 cm2[address] Work Phone: [phone] Mean Hsfdpzgw6szChMcp [employer] Work Phone: [phone] Mean Velocity0.9 m/sBon [employer] Work Phone: [phone] Peak Dxzaztet5naTsMks [employer] Work Phone: AV Peak Velocity1.3 m/sBon [employer] Work Phone: [phone] Velocity Ratio0.77Bon [employer] Work Phone: AV VTI30.0 cmBon [employer] Work Phone: AVA/BSA Peak Velocity1.1 cm2/m2Bon [employer] Work Phone: [phone]/BSA VTI1.0 cm2/m2Bon [employer] Work Phone: E/E' Otarbrt59.93Bon [employer] Work Phone: E/E' Ratio (Averaged)11.69Bon [employer] Work Phone: E/E' Egsrll74.46Bon [employer] Work Phone: [phone] BP44 %Yiijxkvl27 - 100 %[employer] Work Phone: [phone] Dnofoyaku81 %[employer] Work Phone: Est. RA Dfdzotvl76cfUeXci [address] Work Phone: Fractional Shortening 2D26 %28 - 44 %[employer] Work Phone: Global longitudinal strain-18.5 %[employer] Phone: Interpretation and review of laboratory results AbnormalRe[employer]Tech [place] [employer] Phone: MLTi0.8 cm0.6 - 1.0 cmRe[employer] [place] [employer] Phone: [phone] Diameter4.8 cmRe[employer] [place] [employer] Phone: LA Size Index2.23 cm/m2[employer] Phone: LA Volume A-L A4C89 qLNxvtsbdv92 - 58 mLData[employer] Work Phone: LA Volume A-L W2P900 eBSqeqaopj73 - 58 [employer] Work Phone: LA Volume A/L107 [employer] Work Phone: LA Volume BP104 qSZpwogvow74 - 58 mLRe[employer] [place] [employer] Phone: [phone] Volume Index A-L A2C41 mL/m216 - 34 mL/m2[employer] Work Phone: LA Volume Index A-L A4C57 mL/m216 - 34 mL/m2[employer] Work Phone: LA Volume Index A/L50 mL/m216 - 34 mL/m2[employer] Work Phone: LA Volume Index BP48 ml/m216 - 34 ml/m2[employer] Work Phone: [phone] Volume Index MOD A2C41 ml/m216 - 34 ml/m2[employer] Work Phone: [phone] Volume Index MOD A4C55 ml/m216 - 34 ml/m2Bon [facility] Work Phone: [phone] Volume MOD A2C89 dYCmfattjw69 - 58 mLBon [facility] Work Phone: LA Volume MOD S4B481 mYGiuylswn64 - 58 mLBon [facility] Work Phone: [phone]/AO Root Ratio1.41Bon [employer] Work Phone: [phone] E' Lateral Velocity6.59 cm/sBon [employer] Work Phone: [phone] E' Septal Velocity5.78 cm/sBon [employer] Work Phone: [phone] EDV A4A857 [employer] Work Phone: [phone] EDV L7B426 [employer] Work Phone: [phone] EDV BP119 mL67 - 155 [employer] Work Phone: [phone] EDV Index A2C56 mL/m2Bon [employer] Work Phone: [phone] EDV Index A4C54 mL/m2[employer] Work Phone: [phone] EDV Index BP55 mL/m2Bon [employer] Work Phone: [phone] Ejection Fraction A2C47 %[employer] Work Phone: [phone] Ejection Fraction A4C46 %[employer] Work Phone: [phone] ESV A2C64 [employer] Work Phone: [phone] ESV A4C64 [employer] Work Phone: [phone] ESV BP67 zPBimxwdox60 - 58 [employer] Work Phone: LV ESV Index A2C30 mL/m2Bon [address] Work Phone: LV ESV Index A4C30 mL/m2Bon [employer] Work Phone: LV ESV Index BP31 mL/m2Bon [employer] Work Phone: [phone] Mass 2D132.3 g88 - 224 gBon [employer] Work Phone: [phone] Mass 2D Index61.5 g/m249 - 115 g/m2Bon [employer] Work Phone: [phone] RWT Ratio0.38Bon [employer] Work Phone: [phone] cm4.2 - 5.9 cmBon [employer] Work Phone: [phone] Index2.19 cm/m2Bon [address] Work Phone: [phone] cmBon [employer] Work Phone: LVIDs Index1.63 cm/m2Bon [address] Work Phone: [phone] Area3.1 cm2Bon [address] Work Phone: [phone] Diameter2.0 cmBon [address] Work Phone: [phone] Mean Kfybzshs4hjVbUxw [address] Work Phone: LVOT Peak Vztbgbok9nlLdPal [address] Work Phone: LVOT Peak Velocity1.0 m/sBon [employer] Work Phone: LVOT Stroke Volume Index29.5 mL/m2Bon [employer] Work Phone: [phone] SV63.4 mlBon [address] Work Phone: LVOT VTI20.2 cmBon [employer] Work Phone: [phone]:AV VTI Index0.67[address] Work Phone: [phone] cm0.6 - 1.0 cmBon [employer] Phone: MV A Velocity0.26 m/sBon [address] Work Phone: MV E Velocity0.72 m/sBon [address] Work Phone: MV E Wave Deceleration Ujqr875.7 msBon [employer] Phone: [phone] E/A2.77Bon [employer] Phone: [phone] Max Velocity1.6 m/sBon [address] Work Phone: [phone] Artery OMK44frJhPfbReformTech [place] [employer] Phone: [phone] Max Velocity1.0 m/sBon [employer] Phone: [phone] Peak Jnjmjygu7lwOqRpwRe[employer]Tech [place] [employer] Phone: [phone] Vtzyoy901 mlBon [employer] Phone: [phone] Volume Index A4C67 mL/m2Bon [employer] Phone: [phone] Basal Dimension4.5 cmRe[employer] [place] [employer] Phone: [phone] Mid Dimension3.5 cmRe[employer] [place] [employer] Phone: [phone] [place] [employer] Phone: [phone] cmAbnormal1.7 cmRe[employer] [place] [employer] Phone: [phone] Max Velocity3.49 m/sBon [employer] Phone: [phone] Peak Ppnkresj50wkOdHcyReformTech [place] [employer] Phone: [phone] [employer] Phone: [phone] echo study Procedureon 50-38-1816Ybnn Ventricle: Mildly reduced left ventricular systolic function. [...] performed. Lumason contrast was given to enhance imaging.[facility] CV CPACSCardiac echo study Procedure on 00-52-3760Awcmzptjg Study observation (narrative)[facility] Basophils Auto (Bld) [#/Vol]Ordered By: Faizan Bragg on 23-23-5903Bvgznkwkz (Bld) [#/Vol]0.1 10 3/uL0.0-0.1FThe Jewish HospitalBasophils/100 WBC Auto (Bld)Ordered By: Faizan Bragg on 48-72-8816Qjueimsze/100 WBC (Bld)1.0 % 0.2-2.0[facility] HospitalCholesterol in LDL Calc [Mass/Vol] Ordered By: Faizan Bragg on 63-11-0884Gxcaeufqtea in LDL [Mass/Vol]52.8 mg/dL [facility] HospitalComment on above:<100 mg/dl NNABZSS375-624 mg/dl NEAR OR ABOVE GDZVDSK844-966 mg/dl BORDERLINE BXBN147-659 mg/dl HIGH>190 mg/dl VERY HIGHCholesterol in VLDL Calc [Mass/Vol]Ordered By: Faizan Bragg on 54-21-4992Qsocsjgavyt in VLDL [Mass/Vol]6.2 mg/dLOhiohealth Mansfield HospitalEosinophils/100 WBC Auto (Bld)Ordered By: Faizan Bragg on 12-08-2024 Eosinophils/100 WBC (Bld)1.9 %0.9-7.0[facility] Erythrocyte distribution width Auto (RBC) [Ratio]Ordered By: Faizan Bragg on 81-17-2676Oigbboxygzd distribution width (RBC) [Ratio]13.4 %11.0-15.0[facility] HospitalGlobulin Calc (S) [Mass/Vol]Ordered By: Faizan Bragg on 91-87-9966Amsjgeor (S) [Mass/Vol]4.0 g/dLOhiohealth Mansfield Hospital Glomerular filtration rate (GFR) estimation in non- AmericanOrdered By: Faizan Bragg on 44-97-4056DAW/1.73 sq M.predicted among non-blacks MDRD (S/P/Bld) [Vol rate/Area]55 mL/min/{1.73_m2}Low>=60 mL/min/1.73m 2FThe Jewish HospitalHematocrit Auto (Bld) [Volume fraction]Ordered By: Faizan Bragg on 05-40-2107Pablyrpbgk (Bld) [Volume fraction]35.3 %Low42.0-54.0[facility] HospitalHemoglobin [Mass/volume] in BloodOrdered By: Faizan Bragg on 55-14-3945Edjisbkflz (Bld) [Mass/Vol]11.5 g/dLLow14.0-18.0[facility] HospitalLaboratory - Chemistry and Chemistry - challengeOrdered By: Faizan Bragg on 84-44-5406Vriylev [Mass/Vol]3.4 g/dL3.4-5.0[facility] HospitalALP [Catalytic activity/Vol]124 U/HCkhz92-298UiqabpxobOhiohealth Mansfield HospitalALT [Catalytic activity/Vol]28 U/T50-94VkbuiimzcOhiohealth Mansfield HospitalAST [Catalytic activity/Vol]21 U/Y43-62VjovpspbvOhiohealth Mansfield Hospital Bilirubin [Mass/Vol]1.1 mg/dLHigh0.2-1.0[facility] HospitalCalcium [Mass/Vol]8.7 mg/dL8.5-10.1FThe Jewish HospitalChloride [Moles/Vol]103 mmol/E41-772DbrxooilcOhiohealth Mansfield HospitalCholesterol [Mass/Vol]117 mg/dL<=200Ohio[facility] HospitalCholesterol in HDL [Mass/Vol]58 mg/cI12-93UwxwrnwwsOhiohealth Mansfield HospitalComment on above:> or =60 mg/dl - LOW CARDIOVASCULAR RISK<40 mg/dl - HIGH CARDIOVASCULAR RISKCO2 [Moles/Vol]29.5 mmol/L21.0-32.0[facility] HospitalCreatinine [Mass/Vol]1.26 mg/dL0.70-1.30[facility] HospitalFerritin [Mass/Vol]98.0 ng/mL26.0-388.0[facility] HospitalGFR/1.73 sq M.predicted MDRD (S/P/Bld) [Vol rate/Area]mL/min/{1.73_m2}>=60 mL/min/1.73m 2 [facility] HospitalGlucose [Mass/Vol]91 mg/zE67-280TwnnjiqwbOhiohealth Mansfield HospitalPotassium [Moles/Vol]4.4 mmol/L3.5-5.1FThe Jewish HospitalProtein [Mass/Vol]7.4 g/dL6.4-8.2FThe Jewish Hospital Sodium [Moles/Vol]138 mmol/G178-473LnytymtwkOhiohealth Mansfield HospitalTriglyceride [Mass/Vol]31 mg/dL<=150Ohio[facility] HospitalUrate [Mass/Vol]5.5 mg/dL3.5-7.2FThe Jewish HospitalUrea nitrogen [Mass/Vol]22.0 mg/dL High7.0-18.0[facility] HospitalUrea nitrogen/Creatinine [Mass ratio]17.5 mg/mgOhiohealth Mansfield HospitalLaboratory - Hematology and Cell countsOrdered By: Faizan Bragg on 46-58-9831Jvrmmdpa granulocytes/100 WBC (Bld)0.2 %0.0-0.5FThe Jewish HospitalLeukocytes [#/volume] corrected for nucleated erythrocytes in Blood by Automated counOrdered By: Faizan Bragg on 23-78-7604QTH corrected for nucl RBC Auto (Bld) [#/Vol]5.8 10 3/uL4.0-11.0[facility] HospitalLymphocytes Auto (Bld) [#/Vol] Ordered By: Faizan Bragg on 87-39-5891Takkecisrqo (Bld) [#/Vol]0.9 10 3/uLLow 1.2-3.8[facility] HospitalLymphocytes/100 WBC Auto (Bld)Ordered By: Faizan Bragg on 60-31-0439Zlstsrnkvij/100 WBC (Bld)15.8 %Low20.5-60.0 [facility] HospitalMCH Auto (RBC) [Entitic mass]Ordered By: Faizan Bragg on 32-67-1186GZB (RBC) [Entitic mass]31.8 pg25.9-34.0[facility] HospitalMCHC Auto (RBC) [Mass/Vol]Ordered By: Faizan Bragg on 12-08-2024 MCHC (RBC) [Mass/Vol]32.6 g/dL29.9-35.2FThe Jewish HospitalMCV Auto (RBC) [Entitic vol]Ordered By: Faizan Bragg on 45-54-9932YAY (RBC) [Entitic vol]97.5 zEYxcb89.0-94.0[facility] HospitalMicroalbumin [Mass/volume] in UrineOrdered By: Faizan Bragg on 24-96-7295Xgvxmst DL <= 20 mg/L (U) [Mass/Vol]mg/dL<=30.0[facility] HospitalMonocytes Auto (Bld) [#/Vol]Ordered By: Faizan Bragg on 91-40-2478Buassysob (Bld) [#/Vol]0.8 10 3/uL0.3-0.8[facility] HospitalMonocytes/100 WBC Auto (Bld)Ordered By: Faizan Bragg on 88-18-8962Zeasbcolg/100 WBC (Bld)13.7 %High1.7-12.0 [facility] HospitalNeutrophils Auto (Bld) [#/Vol]Ordered By: Faizan Bragg on 63-63-5012Felbjkeavsl (Bld) [#/Vol]3.9 10 3/uL1.4-6.5FThe Jewish HospitalNeutrophils/100 WBC Auto (Bld)Ordered By: Faizan Bragg on 03-80-8373Dsmkkyxwqrl/100 WBC (Bld)67.4 %43.0-75.0[facility] HospitalNo Panel InformationOrdered By: Faizan Bragg on 27-62-2839Edfzg Random Creatinine<13.00 mg/dLLow20.00-300.00[facility] Eosinophils # (Auto)0.1 10 3/uL0.0-0.7FThe Jewish HospitalImmature Granulocyte # (Auto)0.01 10 3/uL0.00-0.03[facility] Platelet mean volume Auto (Bld) [Entitic vol]Ordered By: Faizan Brgag on 02-79-3578Rcghqsot mean volume (Bld) [Entitic vol]9.5 fL9.5-13.5FThe Jewish HospitalPlatelets Auto (Bld) [#/Vol]Ordered By: Faizan Bragg on 92-95-7331Brjflqcvv (Bld) [#/Vol]215 10 3/mL051-251PdtldynodOhiohealth Mansfield HospitalRBC Auto (Bld) [#/Vol]Ordered By: Faizan Bragg on 45-69-8554XJP (Bld) [#/Vol]3.62 10 6/uLLow4.70-6.10[facility] Northerum or plasma albumin/globulin mass ratioOrdered By: Faizan Bragg on 12-08-2024 Albumin/Globulin [Mass ratio]0.9 {ratio}[facility] Northerum or plasma anion gap determinationOrdered By: Faizan Bragg on 59-79-0005Bvqqy gap [Moles/Vol]9.9 mmol/LFKettering Health Hamiltonerum or plasma total cholesterol/high density lipoprotein (HDL) cholesterol mass ratOrdered By: Faizan Bragg on 74-12-2057Bgergpwvvwz.total/Cholesterol in HDL [Mass ratio]2.0 {ratio}[facility] HospitalComment on above:3.3 - 4.4 LOW RISK4.4 - 7.1 AVERAGE RISK7.1 - 11.0 MODERATE RISK>11.0 HIGH RISKMain OR Intraoperative Recordon [id number] OR Intraoperative RecordMain OR Intraoperative Record IntraOp Document Type FTPM Summary Primary Physician: Daniel Hair DO Finalized Date/Time: 12/03/24 12:18:41 Pt. Name: BRET YAP/Sex: 1940 Male Med Rec #: [id number] Physician: Daniel Hair DO Financial #: [id number] Pt. Type: P Room/Bed: / Admit/Disch: 12/03/24 [...] Valentine Jacobs Role Performed Surgeon - Primary Bus Inspector - Primary Accountant Tax Time In 12/03/24 12:02:00 12/03/24 12:02:00 12/03/24 [...] RN, Emily C, Jones DO, Bradford A., Ott, Amy Time Out Complete 12/03/24 12:04:00 Outcomes Met? [...] and tissue Entry 1 Skin Integrity Intact, [place], Warm, & Skin Abnormality No Dry Outcomes [...] Safety Strap, Pillow La (more content not included)...[facility] HospitalNo Panel Informationon [id number] Health Johnston ClaytonPSA, Diagnosticon [id number] specific Ag [Mass/Vol]3.37 ng/mL0.00 - 4.00 ng/mLCumberland Hospital on above:The Placido ECLIA assay is used. Results obtained with different assay methods cannot be used interchangeably. [facility] CenterProstatic Spec. Ag3.37 ng/mLNormal0.00-4.00[facility] on above:Result Comment: The Plaicdo ECLIA assay is used. Results obtained with different assay methods cannot be used interchangeably.Performed By: #### PSAD #### [facility] [place] [address] Senior Network Administrator: Wilian Calvillo MDXR CHEST (2 VW)on 33-39-1271HX CHEST (2 VW)EXAM: XR CHEST (2 VW) HISTORY: Chest pain, unspecified type COMPARISON: 04/29/2024. IMPRESSION: FINDINGS/IMPRESSION: 1. Hiatal hernia unchanged. 2. Mild stable cardiomegaly. 3. No mass or pneumonia. 4. Prominent interstitial markings in the lower lobes, stable. Interpreted by: Lopez Hough Jr., MD Signed by: Lopez Hough Jr., MD 06/23/24 Final resultNormalWvumedicine Barnesville HospitalXR Chest 2 Viewson 06-23-2024 FINDINGS/IMPRESSION: 1. Hiatal hernia unchanged. 2. Mild stable cardiomegaly. 3. No mass or pneumonia. 4. Prominent interstitial markings in the lower lobes, stable. [facility] RIS CONSOLIDATEDEXAM: XR CHEST (2 VW) HISTORY: Chest pain, unspecified type COMPARISON: 04/29/2024. [facility] RIS Lopez Burns Jr., MD - 06/23/2024 EXAM: XR CHEST (2 VW) HISTORY: Chest pain, unspecified type COMPARISON: 04/29/2024. IMPRESSION: FINDINGS/IMPRESSION: 1. Hiatal hernia unchanged. 2. Mild stable cardiomegaly. 3. No mass or pneumonia. 4. Prominent interstitial markings in the lower lobes, stable. [facility] CenterRadiology Study observation (narrative)[facility] HospitalXR Chest 2 ViewsOrdered By: Lopez Hough on 75-59-2069Aaa [address] Work Phone: Cryotherapy, skin lesionon [id number] University Medical CenterXR CHEST (2 VW)on [id number] CHEST (2 VW)EXAM: XR CHEST (2 VW) [...] by: Lopez Hough Jr., MD 04/29/24 Final resultNoUC Medical CenterXR Chest 2 Viewson 04-29-2024 FINDINGS/IMPRESSION: 1. Scarring and chronic parenchymal densities at the right mid and lower lung field are not significant changed. 2. Moderate-sized hiatal hernia better seen on the CT. 3. Mild stable cardiomegaly. 4. No acute change. [facility] RIS CONSOLIDATEDEXAM: XR CHEST (2 VW) HISTORY: Shortness of breath COMPARISON: Chest 08/27/2023. Abdominal CT 07/12/2022, [place]. [facility] RIS CONSOLIDATEDTraLopez prabhakar Jr., MD - 04/29/2024 EXAM: XR CHEST (2 VW) HISTORY: Shortness of breath COMPARISON: Chest 08/27/2023. Abdominal CT 07/12/2022, [place]. IMPRESSION: FINDINGS/IMPRESSION: 1. Scarring and chronic parenchymal densities at the right mid and lower lung field are not significant changed. 2. Moderate-sized hiatal hernia better seen on the CT. 3. Mild stable cardiomegaly. 4. No acute change. [facility] CenterRadiology Study observation (narrative)[facility] HospitalHexago [facility] HospitalThe Author Hub Cher[facility] HospitalXR Chest 2 ViewsOrdered By: Lopez Hough on 96-21-2866Tqd [facility] HospitalCool Earth Solar Phone: CBC with Auto Differentialon [id number] (Bld) [#/Vol]0.04 10*3/uLBon Secours Keenan Private HospitalBasophils/100 WBC (Bld)1 %0 - 2 %[facility] SecSt. Elizabeth HospitalEosinophils (Bld) [#/Vol]0.14 10*3/uLBon Secours Keenan Private HospitalEosinophils/100 WBC (Bld)2 %0 - 5 %[facility] SecSt. Elizabeth HospitalErythrocyte distribution width (RBC) [Ratio]14.8 %12.1 - 15.2 %[facility] Hematocrit (Bld) [Volume fraction]32.0 %Low41.0 - 53.0 %[facility] Hemoglobin (Bld) [Mass/Vol]10.0 g/dLLow13.5 - 17.5 g/dLBon SecSt. Elizabeth Hospital Immature granulocytes (Bld) [#/Vol]0.01 10*3/uLBon Secours Keenan Private HospitalImmature granulocytes/100 WBC (Bld)0 %0 - 5 %[facility] CenterInterpretation and review of laboratory resultsAbnormalBon SecSt. Elizabeth HospitalLymphocytes/100 WBC (Bld)16 %13 - 44 %[facility] SecSt. Elizabeth HospitalLymphocytes/100 WBC (Bld)0.91 %LowBon SecKettering Health Washington TownshipH (RBC) [Entitic mass]28.7 pg26.0 - 34.0 pgBon Secours Trinity Health System West CampusHC (RBC) [Mass/Vol]31.3 g/dL31.0 - 37.0 g/dLBon SecKettering Health Washington TownshipV (RBC) [Entitic vol]92.0 fL80.0 - 100.0 fLBon SecSt. Elizabeth Hospital Monocytes/100 WBC (Bld)15 %High5 - 9 %[facility] SecSt. Elizabeth HospitalMonocytes/100 WBC (Bld)0.85 %[facility] SecSt. Elizabeth HospitalNeutrophils/100 WBC (Bld)66 %39 - 75 %Bon SecSt. Elizabeth HospitalPlatelet mean volume (Bld) [Entitic vol]9.9 fL6.0 - 12.0 fL [facility] SecOur Lady of the Sea Hospital HealthPlatelets (Bld) [#/Vol]203 10*3/uLBon [facility]ner Medical CenterRBC (Bld) [#/Vol]3.48 10*6/uLLow4.50 - 5.90 m/[facility] Segmented neutrophils/100 WBC (Bld)3.93 %Bon [facility] Medical CenterWBC other (Bld) [#/Vol]5.9Bon [facility] CenterCB with Diffon [id number]. Basophil0.04 k/uLNormal0.00-0.20[facility]ville HospitalComment on above:Performed By: #### CDP, CP, MG, TSHX #### [facility] [address] [place] [address] Senior Network Administrator: William Iqbal MD #### BENITEZ25, FT4 #### [facility] Bill.Forward [address] [place], [place] [phone] Senior Network Administrator: Sumanth Ng.Imm.Granulocyte0.01 k/uLNormal0.00-0.30[facility] Barnesville HospitalComment on above:Performed By: #### CDP, CP, MG, TSHX #### [facility] [address] [place] [address] Senior Network Administrator: William Iqbal MD #### BENITEZ25, FT4 #### [facility] [employer] [address] [place] [address] Senior Network Administrator: Sumanth Ng.Neutrophil (Seg)3.93 k/uLNormal2.1-6.5Wvumedicine Barnesville HospitalComment on above:Performed By: #### CDP, CP, MG, TSHX #### [facility] [address] [place] [phone] Senior Network Administrator: William Iqbal MD #### AMAYA, VD25, FT4 #### [facility] [employer] [address] [place], [place] [phone] Senior Network Administrator: Wilian Calvillo MDBasophils/100 WBC (Bld)1 %Normal0-2MNationwide Children's HospitalCommemorial healthcare on above:Performed By: #### CDP, CP, MG, TSHX #### [facility] [address] [place], [place] [phone] Senior Network Administrator: William Iqbal MD #### LIPR, VD25, FT4 #### [address] [phone] Senior Network Administrator: Wilian Calvillo MDEosinophils (Bld) [#/Vol]0.14 10*3/uLNormal 0.00-0.40[facility] on above:Performed By: #### CDP, CP, MG, TSHX #### [facility] [address] [place] [phone] Senior Network Administrator: William Iqbal MD #### LIPIda, VD25, FT4 #### [place] [phone] Senior Network Administrator: Wilian Calvillo MDEosinophils/100 WBC (Bld)2 %Normal0-5[facility] on above:Performed By: #### CDP, CP, MG, TSHX #### [facility] [address] [place] [phone] Senior Network Administrator: William Iqbal MD #### LIPIda, VD25, FT4 #### [place] [phone] Senior Network Administrator: Wilian Calvillo MDErythrocyte distribution width (RBC) [Ratio]14.8 %Wxojjn63.1-15.2MNationwide Children's HospitalCommemorial healthcare on above:Performed By: #### CDP, CP, MG, TSHX #### [facility] [address] [place] [phone] Senior Network Administrator: William Iqbal MD #### LIPR, VD25, FT4 #### [place] [phone] Senior Network Administrator: Wilian Calvillo MDHematocrit (Bld) [Volume fraction]32.0 %Low 41.0-53.0[facility] on above:Performed By: #### CDP, CP, MG, TSHX #### [facility] [address] [place] [address] Senior Network Administrator: William Iqbal MD #### LIPR, VD25, FT4 #### [place] [address] Senior Network Administrator: Wilian Calvillo MDHemoglobin (Bld) [Mass/Vol]10.0 g/dLLow13.5-17.5 [facility] on above:Performed By: #### CDP, CP, MG, TSHX #### [facility] [address] [place] [phone] Senior Network Administrator: William Iqbal MD #### AMAYA, VD25, FT4 #### [place] [address] Senior Network Administrator: Wilian Calvillo MDImmature granulocytes/100 WBC (Bld)0 %Normal0-5 [facility] on above:Performed By: #### CDP, CP, MG, TSHX #### [facility] [address] [place] [phone] Senior Network Administrator: William Iqbal MD #### LIPR, VD25, FT4 #### [place] [address] Senior Network Administrator: Wilian Calvillo MDLymphocytes (Bld) [#/Vol]0.91 10*3/uLLow 1.00-4.80[facility] on above:Performed By: #### CDP, CP, MG, TSHX #### [facility] [address] [place], [place] [phone] Senior Network Administrator: William Iqbal MD #### LIPR, VD25, FT4 #### [address] [phone] Senior Network Administrator: Wilian Calvillo MDLymphocytes/100 WBC (Bld)16 %Zvwlcm09-12GbdqeAultman Hospital on above:Performed By: #### CDP, CP, MG, TSHX #### [facility] [address] [place] [address] Senior Network Administrator: William Iqbal MD #### LIPR, VD25, FT4 #### [address] [phone] Senior Network Administrator: CORBY Ng (RBC) [Entitic mass]28.7 ssHyvgjf24.0-34.0 [facility] on above:Performed By: #### CDP, CP, MG, TSHX #### [facility] [address] [place], [place] [phone] Senior Network Administrator: William Iqbal MD #### LIPR, VD25, FT4 #### [address] [phone] Senior Network Administrator: CORBY NgC (RBC) [Mass/Vol]31.3 g/tHAshwrq04.0-37.0 [facility] on above:Performed By: #### CDP, CP, MG, TSHX #### [facility] [address] [place] [address] Senior Network Administrator: William Iqbal MD #### LIPR, VD25, FT4 #### [address] [phone] Senior Network Administrator: DIGNA Ng (RBC) [Entitic vol]92.0 zJKbodbr61.0-100.0 [facility] HospitalCommemorial healthcare on above:Performed By: #### CDP, CP, MG, TSHX #### [facility] [address] [place] [address] Senior Network Administrator: William Iqbal MD #### LIPR, VD25, FT4 #### [address] [phone] Senior Network Administrator: Wilian Calvillo, MDMonocytes (Bld) [#/Vol]0.85 10*3/uLNormal 0.00-1.00[facility] HospitalComment on above:Performed By: #### CDP, CP, MG, TSHX #### [facility] [address] [place] [address] Senior Network Administrator: William Iqbal MD #### LIPR, VD25, FT4 #### [address] [address] Senior Network Administrator: iWlian Calvillo, MDMonocytes/100 WBC (Bld)15 %High5-9[facility] HospitalComment on above:Performed By: #### CDP, CP, MG, TSHX #### [facility] [address] [place] [address] Senior Network Administrator: William Iqbal MD #### LIPR, VD25, FT4 #### [address] [address] Senior Network Administrator: Wilian Calvillo MDNeutrophil (Seg)66 %Cacjsg77-92HpgamWvumedicine Barnesville HospitalComment on above:Performed By: #### CDP, CP, MG, TSHX #### [facility] [address] [place] [address] Senior Network Administrator: William Iqbal MD #### LIPR, VD25, FT4 #### [address] [phone] Senior Network Administrator: Ana Ng mean volume (Bld) [Entitic vol]9.9 fL Normal6.0-12.0[facility] HospitalComment on above:Performed By: #### CDP, CP, MG, TSHX #### [facility] [address] [place], [place] [phone] Senior Network Administrator: William Iqbal MD #### LIPR, VD25, FT4 #### [facility] [place], [place] [phone] Senior Network Administrator: Yuly Ng (Bld) [#/Vol]203 10*3/uHLggmgv388-270 [facility] HospitalComment on above:Performed By: #### CDP, CP, MG, TSHX #### [facility] [address] [place] [phone] Senior Network Administrator: William Iqbal MD #### LIPR, VD25, FT4 #### [address] [address] Senior Network Administrator: KRISH Ng (Bld) [#/Vol]3.48 10*6/uLLow4.50-5.90[facility] HospitalComment on above:Performed By: #### CDP, CP, MG, TSHX #### [facility] [address] [place], [place] [phone] Senior Network Administrator: William Iqbal MD #### LIPR, VD25, FT4 #### [address] [address] Senior Network Administrator: ERIC Ng (Bld) [#/Vol]5.9 10*3/uLNormal3.5-11.0[facility] HospitalComment on above:Performed By: #### CDP, CP, MG, TSHX #### [facility] [address] [place], [place] [phone] Senior Network Administrator: William Iqbal MD #### LIPR, VD25, FT4 #### [address] [phone] Senior Network Administrator: KIMANI Ngomp Metabolic Profon 38-95-8387Rbrqwfl [Mass/Vol]3.7 g/dLNormal3.5-5.2Mmansfield hospitaly [facility] on above:Performed By: #### CDP, CP, MG, TSHX #### [facility] [address] [place] [address] Senior Network Administrator: William Iqbal MD #### AMAYA, VD25, FT4 #### [address] [phone] Senior Network Administrator: Amaury Ng Xkmt335 U/UFlbl93-572NteitAultman Hospital on above:Performed By: #### CDP, CP, MG, TSHX #### [facility] [address] [place] [address] Senior Network Administrator: William Iqbal MD #### AMAYA, VD25, FT4 #### [address] [phone] Senior Network Administrator: Wilian Calvillo MDALT [Catalytic activity/Vol]15 U/LNormal5-41 [facility] on above:Performed By: #### CDP, CP, MG, TSHX #### [facility] [address] [place] [address] Senior Network Administrator: William Iqbal MD #### LIPIda, VD25, FT4 #### [address] [phone] Senior Network Administrator: José Luis Ng gap [Moles/Vol]4 mmol/LLow9-17[facility] HospitalComment on above:Performed By: #### CDP, CP, MG, TSHX #### [facility] [address] [place], [place] [phone] Senior Network Administrator: William Iqbal MD #### LIPR, VD25, FT4 #### [address] [phone] Senior Network Administrator: Wilian Calvillo MDAST [Catalytic activity/Vol]21 U/LNormal<40[facility] HospitalComment on above:Performed By: #### CDP, CP, MG, TSHX #### [facility] [address] [place] [phone] Senior Network Administrator: William Iqbal MD #### LIPR, VD25, FT4 #### [address] [phone] Senior Network Administrator: Wilian Calvillo MDBilirubin [Mass/Vol]0.5 mg/dLNormal0.3-1.2MNationwide Children's HospitalComment on above:Performed By: #### CDP, CP, MG, TSHX #### [facility] [address] [place] [phone] Senior Network Administrator: William Iqbal MD #### LIPR, VD25, FT4 #### [address] [phone] Senior Network Administrator: Wilian Calvillo MDBUN/CRE Vpfcy28Omiqtj2-92Ffgnb [facility] Comment on above:Performed By: #### CDP, CP, MG, TSHX #### [facility] [address] [place] [phone] Senior Network Administrator: William Iqbal MD #### LIPR, VD25, FT4 #### [address] [phone] Senior Network Administrator: KIMANI Ngalcium [Mass/Vol]8.7 mg/dLNormal8.6-10.4[facility] HospitalComment on above:Performed By: #### CDP, CP, MG, TSHX #### [facility] [address] [place] [address] Senior Network Administrator: William Iqbal MD #### LIPR, VD25, FT4 #### [place] [phone] Senior Network Administrator: KIMANI Nghloride [Moles/Vol]104 mmol/DCpuzbf32-974MycjnWvumedicine Barnesville HospitalComment on above:Performed By: #### CDP, CP, MG, TSHX #### [facility] [address] [place] [address] Senior Network Administrator: William Iqbal MD #### LIPR, VD25, FT4 #### [place] [phone] Senior Network Administrator: KIMANI NgO2 [Moles/Vol]30 mmol/UCyoodm79-65ArehjWvumedicine Barnesville HospitalComment on above:Performed By: #### CDP, CP, MG, TSHX #### [facility] [address] [place] [address] Senior Network Administrator: William Iqbal MD #### LIPR, VD25, FT4 #### [place] [phone] Senior Network Administrator: KIMANI Ngreatinine [Mass/Vol]1.1 mg/dLNormal0.7-1.2MNationwide Children's HospitalComment on above:Performed By: #### CDP, CP, MG, TSHX #### [facility] [address] [place] [phone] Senior Network Administrator: William Iqbal MD #### LIPR, VD25, FT4 #### [place] [phone] Senior Network Administrator: Wiilan Calvillo MDGFR/1.73 sq M.predicted among non-blacks MDRD (S/P/Bld) [Vol rate/Area]67 mL/min/{1.73_m2}Normal>60[facility] Comment on above:Result Comment: These results [...] By: #### CDP, CP, MG, TSHX #### [facility] [address] [place] [address] Senior Network Administrator: William Iqbal MD #### AMAYA VD25, FT4 #### [address] [phone] Senior Network Administrator: Wilian Calvillo MDGlucose [Mass/Vol]84 mg/rSMcudhd59-43BtthjNationwide Children's HospitalComment on above:Performed By: #### CDP, CP, MG, TSHX #### [facility] [address] [place] [address] Senior Network Administrator: William Iqbal MD #### AMAYA VD25, FT4 #### [address] [phone] Senior Network Administrator: VALENTINO Ngotassium [Moles/Vol]4.1 mmol/LNormal3.7-5.3 [facility] HospitalComment on above:Performed By: #### CDP, CP, MG, TSHX #### [facility] [address] [place] [address] Senior Network Administrator: William Iqbal MD #### AMAYA VD25, FT4 #### [address] [phone] Senior Network Administrator: Wilian Calvillo MDProtein [Mass/Vol]6.9 g/dLNormal6.4-8.3MNationwide Children's HospitalCommemorial healthcare on above:Performed By: #### CDP, CP, MG, TSHX #### [facility] [address] [place], [place] [phone] Senior Network Administrator: William Iqbal MD #### LIPIda, VD25, FT4 #### [facility] [place], [place] [phone] Senior Network Administrator: BRICE Ngodium [Moles/Vol]138 mmol/BJldxfp744-101AnfvrWvumedicine Barnesville HospitalComment on above:Performed By: #### CDP, CP, MG, TSHX #### [facility] [address] [place], [place] [phone] Senior Network Administrator: William Iqbal MD #### YEE CONDE, FT4 #### [address] [phone] Senior Network Administrator: Wilian Calvillo MDUrea nitrogen [Mass/Vol]22 mg/dLNormal8-23[facility] HospitalComment on above:Performed By: #### CDP, CP, MG, TSHX #### [facility] [address] [place], [place] [phone] Senior Network Administrator: William Iqbal MD #### BENITEZ25, FT4 #### [address] [phone] Senior Network Administrator: KIMANI Ngomprehensive Metabolic Panelon 04-26-2024 Albumin [Mass/Vol]3.7 g/dL3.5 - 5.2 g/dLBon [facility] HealthALP [Catalytic activity/Vol]155 U/LHigh40 - 129 U/LBon [facility] CenterALT [Catalytic activity/Vol]15 U/L5 - 41 U/LBon [facility] CenterAnion gap [Moles/Vol]4 mmol/LLow9 - 17 mmol/LBon [facility] HealthAST [Catalytic activity/Vol]21 U/L NINF - 40 U/LBon SecOur [facility] HealthBilirubin [Mass/Vol]0.5 mg/dL0.3 - 1.2 mg/dLBon SecOur Lady of the Sea [facility] HealthCalcium [Mass/Vol]8.7 mg/dL8.6 - 10.4 mg/dLBon [facility] HealthChloride [Moles/Vol]104 mmol/L98 - 107 mmol/LBon [facility] HealthCO2 [Moles/Vol]30 mmol/L20 - 31 mmol/LBon [facility] Health Creatinine [Mass/Vol]1.1 mg/dL0.7 - 1.2 mg/dLBon [facility] CenterEst, Glom Filt Rate67- PINFBon [facility] CenterComment on above: These results are not intended [...] secretion. Glucose [Mass/Vol]84 mg/dL70 - 99 mg/dLBon [facility] CenterInterpretation and review of laboratory resultsAbnormalBon [facility] HealthPotassium [Moles/Vol]4.1 mmol/L3.7 - 5.3 mmol/LBon [facility] HealthProtein [Mass/Vol] 6.9 g/dL6.4 - 8.3 g/dLBon [facility] CenterSodium [Moles/Vol]138 mmol/L135 - 144 mmol/LBon [facility] HealthUrea nitrogen [Mass/Vol]22 mg/dL8 - 23 mg/dL [facility] CenterUrea nitrogen/Creatinine [Mass ratio]20 mg/mg9 - 20Bon [facility] CenterLipid Panelon [id number] [Mass/Vol]113 mg/dL0 - 199 mg/dLBon [facility] CenterComment on above: Cholesterol Guidelines: <200 Desirable 200-240 Borderline >240 Undesirable Cholesterol in HDL [Mass/Vol]48 mg/dL40 - PINF mg/dLBon [facility] Comment on above: HDL Guidelines: <40 Undesirable 40-59 Borderline >59 Desirable Cholesterol in LDL [Mass/Vol]54 mg/dL0 - 100 mg/dLBon [facility] Comment on above: LDL Guidelines: <100 Desirable 100-129 Near to/above Desirable 130-159 Borderline >159 Undesirable Direct (measured) LDL and calculated LDL are not interchangeable tests. Cholesterol in VLDL [Mass/Vol]11 mg/dL1 - 30 mg/dLBon [facility] Cholesterol.total/Cholesterol in HDL [Mass ratio]2.4 {ratio}[facility] CenterTriglyceride [Mass/Vol]53 mg/dLNINF - 150 mg/dLBon [facility] Comment on above: Triglyceride Guidelines: <150 Desirable 150-199 Borderline 200-499 High >499 Very high Based on AHA Guidelines for fasting triglyceride, December 2011. [facility] CenterLipid Profileon [id number] [Mass/Vol]113 mg/dLNormal0-199[facility]ville HospitalComment on above:Result Comment: Cholesterol Guidelines: <200 Desirable 200-240 Borderline >240 UndesirablePerformed By: #### CDP, CP, MG, TSHX #### [facility] [address] [place] [address] Senior Network Administrator: William Iqbal MD #### AMAYA VD25, FT4 #### [facility] HospitalInge Watertechnologies [address] [place] [phone] Senior Network Administrator: KIMANI Ngholesterol in HDL [Mass/Vol]48 mg/dLNormal>40 [facility] HospitalComment on above:Result Comment: HDL Guidelines: <40 Undesirable 40-59 Borderline >59 DesirablePerformed By: #### CDP, CP, MG, TSHX #### [facility] [address] [place], [place] [phone] Senior Network Administrator: William Iqbal MD #### LIPR, VD25, FT4 #### [facility] [employer] [address] [place] [address] [phone] Senior Network Administrator: KIMANI Ngholesterol in LDL [Mass/Vol]54 mg/dLNormal0-100 [facility] on above:Result Comment: LDL Guidelines: <100 Desirable 100-129 Near to/above Desirable 130-159 Borderline >159 Undesirable Direct (measured) LDL and calculated LDL are not interchangeable tests.Performed By: #### CDP, CP, MG, TSHX #### [facility] [address] [place], [place] [phone] Senior Network Administrator: William Iqbal MD #### LIPR, VD25, FT4 #### [facility] [employer] [address] [place] [address] [phone] Senior Network Administrator: KIMANI Ngholesterol in VLDL [Mass/Vol]11 mg/dLNormal1-30 [facility] on above:Performed By: #### CDP, CP, MG, TSHX #### [facility] [address] [place], [place] [phone] Senior Network Administrator: William Iqbal MD #### LIPIda, VD25, FT4 #### [facility] [employer] [address] [place] [address] [phone] Senior Network Administrator: KIMANI Ngholesterobrian.total/Cholesterol in HDL [Mass ratio]2.4 {ratio}NormalAultman Hospital on above:Performed By: #### CDP, CP, MG, TSHX #### [facility] [address] [place], [place] [phone] Senior Network Administrator: William Iqbal MD #### LIPR, VD25, FT4 #### [facility] [employer] [address] [place] [address] [phone] Senior Network Administrator: Wilian Calvillo MDTriglyceride [Mass/Vol]53 mg/dLNormal<150[facility] on above:Result Comment: Triglyceride Guidelines: <150 Desirable 150-199 Borderline 200-499 High >499 Very high Based on AHA Guidelines for fasting triglyceride, December 2011.Performed By: #### CDP, CP, MG, TSHX #### [facility] [address] [place] [address] Senior Network Administrator: William Iqbal MD #### LIPR, VD25, FT4 #### [facility] [employer] [address] [place] [phone] Senior Network Administrator: Severino Nggnesiumon [id number] [Mass/Vol]2.1 mg/dL1.6 - 2.6 mg/dLBon [facility] Medical CenterMagnesium [Mass/Vol]2.1 mg/dLNormal 1.6-2.6[facility]oving[facility] County HospitalComment on above:Performed By: #### BRITTANY, CP, MG, TSHX #### [facility] [address] [place] [address] Senior Network Administrator: William Iqbal MD #### AMAYA, VD25, FT4 #### [facility] [employer] [address] [place] [phone] Senior Network Administrator: Wilian Calvillo MDNo Panel Informationon [id number] [facility] CenterT4, Freeon [id number] T4 [Mass/Vol]1.2 ng/dL0.9 - 1.7 ng/dLBon [facility] CenterBon [facility] CenterTS w/reflex to FT4on 04-26-2024 Thyroid Stim. Horm.6.05 uIU/mLHigh0.30-5.00[facility] HospitalComment on above:Performed By: #### CDP, CP, MG, TSHX #### [facility] [address] [place] [address] Senior Network Administrator: William Iqbal MD #### LIPR, VD25, FT4 #### [facility] [employer] [address] [place] [phone] Senior Network Administrator: Wilian Calvillo MDPEACEHEALTH UNITED GENERAL [facility] with Reflexon [id number] and review of laboratory resultsAbnormalWinchester Medical CenterTS Qn6.05 m[IU]/L HighValley HealthThyroxine, Freeon 04-26-2024 Thyroxine, Free1.2 ng/dLNormal0.9-1.7[facility] HospitalComment on above: Performed By: #### CDP, CP, MG, TSHX #### [facility] [address] [place] [address] Senior Network Administrator: William Iqbal MD #### LIPR, VD25, FT4 #### [employer] [facility] [place] [address] Senior Network Administrator: Wilian Calvillo MDVitamin D 25 Hydroxyon [id number]- hydroxyvitamin D3 [Mass/Vol]31.9 ng/mL30.0 - 100.0 ng/mLW[facility]ster Medical Center Comment on above: Reference Range: Vitamin D status Range Deficiency <20 ng/mL Mild Deficiency 20-30 ng/mL Sufficiency 30-100 ng/mL Toxicity >100 ng/mL [facility] Medical CenterVitamin D 25 OHon 12-42-0595Xpsundt D 25 OH31.9 ng/mL Uvwlmx15.0-100.0[facility] HospitalComment on above:Result Comment: Reference Range: Vitamin D status Range Deficiency <20 ng/mL Mild Deficiency 20-30 ng/mL Sufficiency 30-100 ng/mL Toxicity >100 ng/mLPerformed By: #### CDP, CP, MG, TSHX #### [facility] [address] [place] [address] Senior Network Administrator: William Iqbal MD #### LIPR, VD25, FT4 #### [employer] [address] [place] [phone] Senior Network Administrator: Wilian Calvillo MDNo Panel Informationon [id number] of biopsy: tangential Informed consent: discussed and [...] Photo taken Amount of lidocaine used: 1.0 [facility] Main OR Intraoperative Recordon [id number] OR Intraoperative RecordMain OR Intraoperative Record IntraOp Document Type FTPM Summary Primary Physician: Daniel Hair DO Finalized Date/Time: 02/24/24 13:32:12 Pt. Name: MARELY BRET Burton/Sex: 1940 Male Med Rec #: [id number] Physician: Daniel Hair DO Financial #: [id number] Pt. Type: P Room/Bed: / Admit/Disch: 02/24/24 12:18:10 - Institution: Case Times FTPM Entry 1 Patient Times In Room 02/24/24 13:22:00 Out Room 02/24/24 13:30:00 Procedure Times Start 02/24/24 13:25:00 Stop 02/24/24 13:29:00 Anesthesia Times Last Modified By: Carol Whalen RN 02/24/24 13:30:57 Case Attendance FTPM Entry 1 Entry 2 Entry 3 Case Attendee Daniel Hair DO, RN, Carol Carey RN, [facility] Role Performed Surgeon - Primary Bus Inspector - Primary Scrub - Primary Time In 02/24/24 13:22:00 02/24/24 13:22:00 02/24/24 13:22:00 Time Out 02/24/24 13:30:00 02/24/24 13:30:00 02/24/24 13:30:00 Procedure MEDIAL BRANCH MEDIAL BRANCH MEDIAL BRANCH BLOCK(Right) BLOCK(Right) BLOCK(Right) Comments Last Modified By: Carol Whalen RN, RN, Christopher Harvey RN, Christopher M 02/24/24 13:30:58 M 02/24/24 13:30:58 02/24/24 13:30:58 Entry 4 Case Attendee Mitra ANTHONY(Ida)Blanche Role Performed Accountant Tax Time In 02/24/24 13:22:00 Time Out 02/24/24 [...] RN, Reginaldo Henning DO, Bradford A., Christman RT, Carrie (R) Time Out Complete 02/24/24 13:22:00 Outcomes Met? [...] and tissue Entry 1 Skin Integrity Intact, [place], Warm, & Skin Abnormality No Dry Outcomes [...] Checked Yes By Angus (more content not included)...[facility] Preoperative Recordon [id number] OR Preoperative RecordMain OR Preoperative Record Holding Area Document Type FTPM Summary Primary Physician: Daniel Hair DO Finalized Date/Time: 02/24/24 14:18:29 Pt. Name: BRET YAP/Sex: 1940 Male Med Rec #: [id number] Physician: Daniel Hair DO Financial #: [id number] Pt. Type: P Room/Bed: / Admit/Disch: 02/24/24 [...] RN 02/24/24 12:31 Marilou Esparza RN 02/24/24 14:18[facility] 01-23-2024 AND Demetra Bragg MD [address] [place] [address] RE: BRET YAP : [address] [...] lumbar fusion surgery by Dr. Michelle in [place]. 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 Mr. Yap also has a son who works at [employer] who is not interested in farming. Another grandson works at [employer]. He does not smoke or drink alcohol. [...] calf tenderness. Nail (more content not included)...Normal [facility] HEART CATHon [id number] HEART CATHThis is a summary report. The [...] have been documented. Left Ventricle Ejection Fraction: 50%%.[facility] HospitalMain OR Intraoperative Recordon [id number] OR Intraoperative RecordMain OR Intraoperative Record IntraOp Document Type FT Summary Primary Physician: Daniel Hair DO Finalized Date/Time: 01/20/24 10:19:15 Pt. Name: BRET YAP/Sex: 1940 Male Med Rec #: [id number] Physician: Daniel Hair DO Financial #: [id number] Pt. Type: P Room/Bed: / Admit/Disch: 01/20/24 09:02:09 - Institution: Case Times FTPM Entry 1 Patient Times In Room 01/20/24 10:10:00 Out Room 01/20/24 10:19:00 Procedure Times Start 01/20/24 10:13:00 Stop 01/20/24 10:18:00 Anesthesia Times Last Modified By: Pamela Carey RN 01/20/24 10:19:13 Case Attendance FTPM Entry 1 Entry 2 Entry 3 Case Attendee Reginaldo DOS SANTOS, Daniel Carey RN, Pamela Amato RN, Ninfa Freitas Role Performed Surgeon - Primary Bus Inspector - Primary Scrub - Primary Time In 01/20/24 10:10:00 01/20/24 10:10:00 01/20/24 10:10:00 Time Out 01/20/24 10:18:00 01/20/24 10:18:00 01/20/24 10:18:00 Procedure MEDIAL BRANCH MEDIAL BRANCH MEDIAL BRANCH BLOCK(Right) BLOCK(Right) BLOCK(Right) Comments Last Modified By: Cherry PERKINS, Pamela Carey RN, Pamela Torres RN 01/20/24 10:18:36 01/20/24 10:18:36 01/20/24 10:18:36 Entry 4 Case Attendee Gina Schreiber Role Performed Accountant Tax Time In 01/20/24 10:10:00 Time Out 01/20/24 [...] Time Out Pamela Carey RN, Roderick RN, Ninfa Freitas, Daniel Hair DO, Daniel, Alissa M Time Out Complete 01/20/24 [...] and tissue Entry 1 Skin Integrity Intact, [place], Warm, & Skin Abnormality No Dry Outcomes [...] Met? Yes Last Mod (more content not included)...NormalFisher Appling Medical CenterMain OR Preoperative Recordon [id number] OR Preoperative RecordMain OR Preoperative Record Holding Area Document Type FTPM Summary Primary Physician: Daniel Hair DO Finalized Date/Time: 01/20/24 09:39:44 Pt. Name: BRET YAP /Sex: 1940 Male Med Rec #: [id number] Physician: Daniel Hair DO Financial #: [id number] Pt. Type: P Room/Bed: / Admit/Disch: 01/20/24 [...] Signatures Signed By: Jossie Ma RN 01/20/24 09:39NoBlanchard Valley Health System Bl[facility] Valley HospitalNo Panel InformationOrdered By: Darrell Jason on 33-53-0116Wcv Stress EF64 %BON [employer] Phone: Stress Target [id number] [employer] Work Phone: TID1.04BON [employer] Work Phone: BON [employer] Work Phone: No Panel Informationon [id number] Combined Conclusion: The study cannot rule out [...] Findings suggest a low risk of cardiac events.[facility] CV RPACS STRESSRadiology Study observation (narrative)LinekongCBC with Auto Differentialon [id number] (Bld) [#/Vol]0.06 10*3/uLBON WikiYou Basophils/100 WBC (Bld)1 %0 - 2 %Sazze SECAicent HEALTHEosinophils (Bld) [#/Vol]0.14 10*3/uLBON SECOURS AvubaEosinophils/100 WBC (Bld)3 %0 - 5 % LinekongErythrocyte distribution width (RBC) [Ratio]13.0 %12.1 - 15.2 %LinekongHematocrit (Bld) [Volume fraction]36.5 %Low41.0 - 53.0 %LinekongHemoglobin (Bld) [Mass/Vol]11.4 g/dLLow13.5 - 17.5 g/dLBON SECBASTROP REHABILITATION HOSPITAL HEALTHImmature granulocytes (Bld) [#/Vol]0.01 10*3/uLBON SECOURS MAIN CAMPUS MEDICAL CENTERImmature granulocytes/100 WBC (Bld)0 %0 - 5 %[facility]APPAHANNOCK [facility] HEALTHInterpretation and review of laboratory resultsAbnormalBON SECFIRELANDS REGIONAL MEDICAL CENTERLymphocytes/100 WBC (Bld)20 %13 - 44 %[facility]APPAHANNOCK [facility] HEALTH Lymphocytes/100 WBC (Bld)1.13 %BON [facility]ST HOSPITALH (RBC) [Entitic mass] 29.1 pg26.0 - 34.0 pgBON THE CHRIST HOSPITALHC (RBC) [Mass/Vol]31.2 g/dL31.0 - 37.0 g/dLBON SECKETTERING HEALTH MIAMISBURGV (RBC) [Entitic vol]93.1 fL80.0 - 100.0 fL [facility] SECBASTROP REHABILITATION HOSPITAL HEALTHMonocytes/100 WBC (Bld)13 %High5 - 9 %RAPPAHANNOCK [facility] HEALTHMonocytes/100 WBC (Bld)0.72 %[facility]ICAL CENTERNeutrophils/100 WBC (Bld)63 %39 - 75 %[facility] MEDICAL CENTERPlatelet mean volume (Bld) [Entitic vol]9.6 fL6.0 - 12.0 fLBON [facility] HEALTHPlatelets (Bld) [#/Vol]206 10*3/uLBON SECBASTROP REHABILITATION HOSPITAL HEALTHRBC (Bld) [#/Vol]3.92 10*6/uLLow4.50 - 5.90 m/uL [facility] MEDICAL CENTERSegmented neutrophils/100 WBC (Bld)3.57 %[facility] MEDICAL CENTERWBC other (Bld) [#/Vol]5.6BON SECPRESENTATION MEDICAL CENTER HEALTHComprehensive Metabolic Panelon [id number] [Mass/Vol]3.8 g/dL3.5 - 5.2 g/dLBON SECBASTROP REHABILITATION HOSPITAL HEALTHALP [Catalytic activity/Vol]130 U/LHigh40 - 129 U/LBON [facility]OURS [facility] HEALTHALT [Catalytic activity/Vol]14 U/L5 - 41 U/LBON WHITE HOSPITALAnion gap [Moles/Vol]7 mmol/LLow9 - 17 mmol/LBON [facility]OURS [facility] HEALTHAST [Catalytic activity/Vol]20 U/LNINF - 40 U/LBON [facility] HEALTHBilirubin [Mass/Vol]0.5 mg/dL0.3 - 1.2 mg/dLBON [facility] HEALTH Calcium [Mass/Vol]9.3 mg/dL8.6 - 10.4 mg/dLBON [facility] HEALTHChloride [Moles/Vol]106 mmol/L98 - 107 mmol/LBON [facility] HEALTHCO2 [Moles/Vol]27 mmol/L20 - 31 mmol/LBON [facility] HEALTHCreatinine [Mass/Vol]1.2 mg/dL0.7 - 1.2 mg/dLBON WHITE HOSPITALEst, Glom Filt Wndy61Zfs- PINFBON WHITE HOSPITALComment on above: These results are not [...] secretion. Glucose [Mass/Vol]92 mg/dL70 - 99 mg/dLBON WHITE HOSPITALInterpretation and review of laboratory resultsAbnormalBON [facility] HEALTHPotassium [Moles/Vol]4.3 mmol/L3.7 - 5.3 mmol/LBON [facility] HEALTHProtein [Mass/Vol] 7.4 g/dL6.4 - 8.3 g/dLBON WHITE HOSPITALSodium [Moles/Vol]140 mmol/L135 - 144 mmol/LBON [facility] HEALTHUrea nitrogen [Mass/Vol]22 mg/dL8 - 23 mg/dL BON WHITE HOSPITALUrea nitrogen/Creatinine [Mass ratio]18 mg/mg9 - 20BON [facility] HEALTHLipid Panelon [id number] [Mass/Vol]155 mg/dL0 - 199 mg/dLBON WHITE HOSPITALComment on above: Cholesterol Guidelines: <200 Desirable 200-240 Borderline >240 Undesirable Cholesterol in HDL [Mass/Vol]50 mg/dL40 - PINF mg/dLBON [facility] [employer] Comment on above: HDL Guidelines: <40 Undesirable 40-59 Borderline >59 Desirable Cholesterol in LDL [Mass/Vol]92 mg/dL0 - 100 mg/dLBON [facility] [employer] Comment on above: LDL Guidelines: <100 Desirable 100-129 Near to/above Desirable 130-159 Borderline >159 Undesirable Direct (measured) LDL and calculated LDL are not interchangeable tests. Cholesterol in VLDL [Mass/Vol]13 mg/dLBON [facility] [employer] Cholesterol.total/Cholesterol in HDL [Mass ratio]3.0 {ratio}[facility] Interface21 [employer] BrandsTriglyceride [Mass/Vol]66 mg/dLNINF - 150 mg/dLBON [facility] [employer] Comment on above: Triglyceride Guidelines: <150 Desirable 150-199 Borderline 200-499 High >499 Very high Based on AHA Guidelines for fasting triglyceride, December 2011. [facility] CENTERMagnesiumon [id number] [Mass/Vol]2.2 mg/dL1.6 - 2.6 mg/dLBON WHITE HOSPITALNo Panel Informationon [id number] WHITE HOSPITALT4, Freeon [id number] T4 [Mass/Vol]1.3 ng/dL0.92 - 1.68 ng/dLBON AV[facility] W[facility] MEDICAL CENTERTS with Reflexon 12-22-2023 Interpretation and review of laboratory resultsAbnormalCLINCH VALLEY [facility]ICAL [facility]ENTER TSH Qn5.85 m[IU]/LHighSHENANDOAH MEMORIAL HOSPITALVitamin D 25 Hydroxyon [id number] D3 [Mass/Vol]36.2 ng/mL30.0 - 100.0 ng/mLChildren[facility] on above: Reference Range: Vitamin D status Range Deficiency <20 ng/mL Mild Deficiency 20-30 ng/mL Sufficiency 30-100 ng/mL Toxicity >100 ng/mL [facility] BABIESPrintToPeer Island Club BrandsCardiac echo study Procedureon [id number] Root3.2 cmBOSTON NURSERY FOR BLIND BABIESEnovex MERCY HEALTHAscending Aorta2.8 cmBON SECOURS MERCY HEALTHAV Area by Peak Velocity3.1 cm2BON SECOURS MERCY HEALTHAV Peak Xqzorgyi5qdYwFXX SECOURS MERCY HEALTHAV Peak Velocity1.1 m/sBON SECOURS MERCY HEALTHAV Velocity Ratio0.73 [facility] HEALTHE/E' Lateral6.17B[facility] HEALTHE/E' Ratio (Averaged)6.45B[facility] HEALTHE/E' Septal6.73B[facility] MERCY HEALTHEF Yutywxmkz65 %[facility] HEALTHEst. RA Vpmvucgq4cxHxQHY SECOURS [facility]CY HEALTHFractional Shortening 2D28 %28 - 44 %[facility] HEALTHIVSd0.9 cm0.6 - 1.0 cmBON SECOURS MERCY HEALTHLA Diameter4.9 cmBON SECOURS MERCY HEALTHLA/AO Root Ratio1.53B[facility] MERCY HEALTHLV E' Lateral Jeqojsyn60 cm/sBON SECOURS MERCY HEALTHLV E' Septal Qskekutz00 cm/sBON SECOURS MERCY HEALTHLV Mass 2D142.7 g88 - 224 gBON SECOURS MERCY HEALTHLV RWT Ratio0.38B[facility] HEALTHLVIDd 4.7 cm4.2 - 5.9 cmBON SECOURS MERCY HEALTHLVIDs3.4 cmBON [facility]RS MERCY HEALTH LVOT Area4.5 cm2BON SEC[facility]RS MERCY HEALTHLVOT Diameter2.4 cmBON SECOURS MERCY HEALTHLVOT Mean Owxyinrw0oeLnLYX SECOURS MERCY HEALTHLVOT Peak Khrygchv1xnGdDCI SEC[facility]RS MERCY HEALTHLVOT Peak Velocity0.8 m/sBON SECOURS MERCY HEALTHLVOT SV85.0 mlBON SECOURS MERCY HEALTHLVOT VTI18.8 cmBON SEC[facility]RS MERCY HEALTHLVPWd0.9 cm0.6 - 1.0 cmBON SECOURS MERCY HEALTHMV A Velocity0.01 m/sBON SECOURS MERCY HEALTHMV E Velocity0.74 m/sBON SECOURS MERCY HEALTHMV E Wave Deceleration Czco085.6 ms B[facility] MERCY HEALTHMV E/A74.00BON [facility] MERCY HEALTHPV Max Velocity1.0 m/sBON SECOURS MERCY HEALTHPV Peak Lzprgwaq4odCdXZW SECOURS MERCY HEALTHRVIDd4.2 cmBON SECOURS MERCY YYIVUGIVNG20obByWWWCLINCH VALLEY MEDICAL CENTERTR Max Velocity3.06 m/sBON WHITE HOSPITALTR Peak Vkuugbry30keBiKBPCLINCH VALLEY MEDICAL CENTERLeft Ventricle: Normal left ventricular systolic function. EF [...] continuous wave Dopplerwas performed. No contrast was given.[facility] CV CPACSCLINCH VALLEY MEDICAL CENTERCardiac echo study Procedureon [id number] Study observation (narrative)[facility] MEDICAL CENTEREstimated glomerular filtration rate (GFR) non- Americanon [id number]/1.73 sq M.predicted among non- blacks MDRD (S/P/Bld) [Vol rate/Area]55 mL/min/{1.73_m2}Low>=60Ohio[facility] HospitalLaboratory - Chemistry and Chemistry - challengeon [id number] [Mass/Vol]8.9 mg/dL8.5-10.1FThe [facility] Hospital Chloride [Moles/Vol]104 mmol/K88-722NglbxyqtnOhiohealth Mansfield HospitalCO2 [Moles/Vol]28.5 mmol/L21.0-32.0Ohio[facility] HospitalCreatinine [Mass/Vol]1.26 mg/dL0.70-1.30Ohio[facility] Mansfield HospitalGFR/1.73 sq M.predicted MDRD (S/P/Bld) [Vol rate/Area]mL/min/{1.73_m2}>=60[facility] HospitalGlucose [Mass/Vol]99 mg/iH34-412RuujbwvndOhiohealth Mansfield Hospital Potassium [Moles/Vol]4.4 mmol/L3.5-5.1FKettering Health Hamiltonodium [Moles/Vol]139 mmol/C011-306OojpjztcwOhiohealth Mansfield HospitalUrea nitrogen [Mass/Vol]27.0 mg/dLHigh7.0-18.0Ohio[facility] Mansfield HospitalUrea nitrogen/Creatinine [Mass ratio]21.4 mg/mgOhiohealth Mansfield HospitalNo Panel Informationon [id number] Specific Antigen Screen4.94 ng/mLHigh <=4.00[facility] Northerum or plasma anion gap determinationon 99-69-3659Hrszi gap [Moles/Vol]10.9 mmol/LFThe Jewish HospitalCBC with Auto Differentialon [id number] (Bld) [#/Vol]0.10 10*3/uLBON SECOURS MERCY HEALTHBasophils/100 WBC (Bld)1 %0 - 2 %[facility] Differential TypeYESBON SECOURS MERCY HEALTHEosinophils (Bld) [#/Vol]0.20 10*3/uLBON SECOURS MERCY HEALTHEosinophils/100 WBC (Bld)4 %0 - 5 %[facility] HEALTHErythrocyte distribution width (RBC) [Ratio]14.8 %12.1 - 15.2 %[facility] HEALTHHematocrit (Bld) [Volume fraction]36.2 %Low41 - 53 %[facility] HEALTHHemoglobin (Bld) [Mass/Vol]12.1 g/dLLow13.5 - 17.5 g/dLBON SECOURS MERCY HEALTHInterpretation and review of laboratory resultsAbnormalBON SECOURS MERCY HEALTHLymphocytes/100 WBC (Bld)21 %13 - 44 %[facility] HEALTHLymphocytes/100 WBC (Bld)1.20 %[facility] (RBC) [Entitic mass]31.1 pg26 - 34 pgBON SECOURS [facility]ITALHC (RBC) [Mass/Vol]33.4 g/dL31 - 37 g/dLBON SECKETTERING HEALTH MIAMISBURGV (RBC) [Entitic vol]93.1 fL80 - 100 fLBON SECOURS [facility] HEALTHMonocytes/100 WBC (Bld)13 %High5 - 9 %[facility] HEALTHMonocytes/100 WBC (Bld)0.70 %[facility] CENTERNeutrophils/100 WBC (Bld)61 %39 - 75 %[facility] HEALTHPlatelets (Bld) [#/Vol]207 10*3/uLBON SECOURS [facility] HEALTHRBC (Bld) [#/Vol]3.89 10*6/uLLow4.5 - 5.9 m/uLBON SECFIRELANDS REGIONAL MEDICAL CENTERSegmented neutrophils/100 WBC (Bld)3.40 %[facility] SECFIRELANDS REGIONAL MEDICAL CENTERWBC other (Bld) [#/Vol]5.6[facility] Comprehensive Metabolic Panelon [id number] [Mass/Vol]3.6 g/dL3.5 - 5.2 g/dLBON SECBASTROP REHABILITATION HOSPITAL HEALTHALP [Catalytic activity/Vol]112 U/L40 - 129 U/LBON SECBASTR[facility] HEALTHALT [Catalytic activity/Vol]10 U/L5 - 41 U/LBON [facility]RS [facility] HEALTHAnion gap [Moles/Vol]8 mmol/LLow9 - 17 mmol/LB[facility] HEALTHAST [Catalytic activity/Vol]16 U/LNINF - 40 U/LB[facility] HEALTH Bilirubin [Mass/Vol]0.5 mg/dL0.3 - 1.2 mg/dLBON SECBASTROP [facility] HEALTHCalcium [Mass/Vol]9.6 mg/dL8.6 - 10.4 mg/dLBON SECBASTROP [facility]IL[facility] HEALTHChloride [Moles/Vol] 105 mmol/L98 - 107 mmol/LBON [facility] HEALTHCO2 [Moles/Vol]26 mmol/L20 - 31 mmol/LBON ABRA[facility]OTT[facility]ALE CAMPUSBadSeedCreatinine [Mass/Vol]1.1 mg/dL0.70 - 1.20 mg/dL [facility] FOR BLIND BABIESBadSeedGFR/1.73 sq M.predicted MDRD (S/P/Bld) [Vol rate/Area]- PINFBON ABRAZO SCOTTSDALE CAMPUSPrintToPeerAdams County Regional Medical Centerment on above: These results are not intended [...] secretion. Glucose [Mass/Vol]89 mg/dL70 - 99 mg/dLBON ABRA[facility]OTT[facility] CAMPUSBadSeedInterpretation and review of laboratory resultsAbnormalBON ABRAZO SCOTTSDALE CAMPUSAicent [facility] HOSPITALPotassium [Moles/Vol]4.5 mmol/L3.7 - 5.3 mmol/LBON [facility]OTTSD[facility] CAMPUSAicent J.[facility] RU[facility] MEMORIAL HOSPITALProtein [Mass/Vol] 7.1 g/dL6.4 - 8.3 g/dLBON ABRAZO SCOTTSDALE CAMPUSAicent J.W. RUBY MEMORIAL HOSPITALSodium [Moles/Vol]139 mmol/L135 - 144 mmol/LBON [facility]AMPUSBadSeedUrea nitrogen [Mass/Vol]22 mg/dL8 - 23 mg/dL [facility]IESBadSeedUrea nitrogen/Creatinine [Mass ratio]20 mg/mg9 - 20BON [facility] CAMPUSBadSeedLipid Panelon [id number] [Mass/Vol]164 mg/dLNINF - 200 mg/dLBON ABRAZO SCOTTSDALE CAMPUSBadSeedComment on above: Cholesterol Guidelines: <200 Desirable 200-240 Borderline >240 Undesirable Cholesterol in HDL [Mass/Vol]48 mg/dL40 - PINF mg/dLBON ABRA[facility] SCOTTSDALE CAMPUSBadSeed Comment on above: HDL Guidelines: <40 Undesirable 40-59 Borderline >59 Desirable Cholesterol in LDL [Mass/Vol]105 mg/dL0 - 130 mg/dLBON WikiYou Comment on above: LDL Guidelines: <100 Desirable 100-129 Near to/above Desirable 130-159 Borderline >159 Undesirable Direct (measured) LDL and calculated LDL are not interchangeable tests. Cholesterol.total/Cholesterol in HDL [Mass ratio]3.4 {ratio}NINF - 5BON WHITE HOSPITALTriglyceride [Mass/Vol]56 mg/dLNINF - 150 mg/dLBON WHITE HOSPITALComment on above: Triglyceride Guidelines: <150 Desirable 150-199 Borderline 200-499 High >499 Very high Based on AHA Guidelines for fasting triglyceride, December 2011. [facility] CENTERMagnesiumon [id number] [Mass/Vol]2.1 mg/dL1.6 - 2.6 mg/dLBON WHITE HOSPITALNo Panel Informationon [id number] WHITE HOSPITALPatient Fasting?on 95-19-4910Vwlzzpr Fasting?YESBON AVER[facility] WES[facility] MEM[facility] MEDICAL CENTERT4, Freeon [id number] T4 [Mass/Vol]1.3 ng/dL 0.9 - 1.7 ng/dLBON [facility] with Reflexon [id number] and review of laboratory resultsAbnormalBON [facility]ICAL CENTERH [Mass/Vol]6.55HighBON AVERA WESKOTA MEMORIAL MEDICAL CENTERVitamin D 25 Hydroxyon [id number]-kjfamjebagjzyi D3 [Mass/Vol]30.1 ng/mL 29.9 - PINF ng/mLInova Fair Oaks Hospitalment on above: Reference Range: Vitamin D status Range Deficiency <20 ng/mL Mild Deficiency 20-30 ng/mL Sufficiency 30-100 ng/mL Toxicity >100 ng/mL [facility] CENTERXR CHEST (2 VW)on [id number]/IMPRESSION: 1. Small amount of fluid in one of the major fissures on the lateral view. 2. Slight improvement in airspace opacities at the right lung base. 3. Mild stable cardiomegaly. 4. Chronic mild stranding left mid and lower lung zone. MHPN RIS CONSOLIDATEDEXAM: XR CHEST (2 VW) HISTORY: Reason for exam:->a fib COMPARISON: Chest, Stambaugh, 07/09/2022, 08/22/2021, CT abdomen and pelvis 07/12/2022 MHPN RIS CONSOLIDATEDTrago, Lopez Vega Jr., MD - 08/30/2022 EXAM: XR CHEST (2 VW) HISTORY: Reason for exam:->a fib COMPARISON: Chest, Stambaugh, 07/09/2022, 08/22/2021, CT abdomen and pelvis 07/12/2022 IMPRESSION: FINDINGS/IMPRESSION: 1. Small amount of fluid in one of the major fissures on the lateral view. 2. Slight improvement in airspace opacities at the right lung base. 3. Mild stable cardiomegaly. 4. Chronic mild stranding left mid and lower lung zone. [employer] Phone: radiology Study observation (narrative)[employer] Phone: XR CHEST (2 VW)Ordered By: Lopez Hough on 08-30-2022 [employer] Phone: ct ABD/PELV W CONon [id number] ABD/PELV W CONEXAM: CT scan of the [...] Electronically authenticated by: ZE SOTO Date: 2022-07-13 06:59NormalThMagruder Hospital AUTO DIFFon [id number] #0.1 103/ulNormal0.0-0.1Memorial HospitalComment on above:Performed By: #### CBC #### [facility] [address] [place] [address] Dr. Carloina NamBasophils/100 WBC (Bld)0.4 %Normal0.2-2.0[facility] Comment on above:Performed By: #### CBC #### [facility] [address] [place] [address] Dr. Carolina Zhou #0.2 103/ulNormal0.0-0.7The [facility] HospitalComment on above: Performed By: #### CBC #### [facility] [address] [place] [address] Dr. Carolina Robleroosinophils/100 WBC (Bld)1.2 %Normal0.9-7.0[facility] Comment on above:Performed By: #### CBC #### [facility] [address] [place] [address] Dr. Carolina Roblerorythrocyte distribution width (RBC) [Ratio]13.7 %Gffyxe17.0-15.0 Memorial HospitalComment on above:Performed By: #### CBC #### [facility] [address] [place] [address] Dr. Carolina NamHematocrit (Bld) [Volume fraction]36.7 %Critically low42.0-54.0 Memorial HospitalComment on above:Performed By: #### CBC #### [facility] [address] [place] [address] Dr. Carolina NamHemoglobin (Bld) [Mass/Vol]11.6 g/dLCritically low14.0-18.0Memorial HospitalComment on above:Performed By: #### CBC #### [facility] [address] [place], [place] [id number] Dr. Carolina Og #0.06 10e3/ulCritically high0.00-0.03The [facility] Comment on above:Performed By: #### CBC #### [facility] [address] [place] [address] Dr. Carolina Og %0.5 %Normal0.0-0.5The [facility] HospitalComment on above: Performed By: #### CBC #### [facility] [address] [place] [address] Dr. Carolina Aguilar #1.3 103/ulNormal1.2-3.8The [facility] HospitalComment on above:Performed By: #### CBC #### [facility] [address] [place] [address] Dr. Carolina Barryhocytes/100 WBC (Bld)10.8 %Critically low20.5-60.0The [facility] HospitalComment on above:Performed By: #### CBC #### [facility] [address] [place] [address] Dr. Carolina CaliUAL DIFF REQNONormalThe [facility] HospitalComment on above: Performed By: #### CBC #### [facility] [address] [place] [address] Dr. Carolina Martinez (RBC) [Entitic mass]29.9 ukHjchuu04.9-34.0The [facility] HospitalComment on above:Performed By: #### CBC #### [facility] [address] [place] [address] Dr. Carolina Martinez (RBC) [Mass/Vol]31.6 g/nGPjpbjx50.9-35.2The [facility] HospitalComment on above:Performed By: #### CBC #### [facility] [address] [place] [address] Dr. Carolina Martinez (RBC) [Entitic vol]94.6 fLCritically high80.0-94.0The [facility] HospitalComment on above:Performed By: #### CBC #### [facility] [address] [address] [address] Carolina Joya #1.3 103/ulCritically high0.3-0.8The [facility] Comment on above:Performed By: #### CBC #### [facility] [address] [address] [address] Carolina Roseocytes/100 WBC (Bld)10.4 %Normal1.7-12.0[facility] Comment on above:Performed By: #### CBC #### [facility] [address] [place] [address] Dr. Carolina De #9.4 103/ulCritically high1.4-6.5The [facility] Comment on above:Performed By: #### CBC #### [facility] [address] [place] [address] Dr. Carolina Priceutrophils/100 WBC (Bld)76.7 %Critically high43.0-75.0The [facility] HospitalComment on above:Performed By: #### CBC #### [facility] [address] [place] [address] Dr. Carolina Gilbertlet mean volume (Bld) [Entitic vol]9.2 fLCritically low 9.5-13.5The [facility] HospitalComment on above:Performed By: #### CBC #### [facility] [address] [place] [address] Dr. Carolina NamPLT335 103/zjAjwfzm883-303Mnl [facility] HospitalComment on above: Performed By: #### CBC #### [facility] [address] [place] [address] Dr. Carolina NamRBC3.88 106/ulCritically low4.70-6.10The [facility] HospitalComment on above:Performed By: #### CBC #### [facility] [address] [place] [address] Dr. Carolina NamWBC12.2 103/ulCritically high4.0-11.0The [facility] HospitalComment on above:Performed By: #### CBC #### [facility] [address] [place] [address] Dr. Carolina Beckford 14(COMP METB)on 69-28-9338Kwfzxyk [Mass/Vol]2.5 g/dL Critically low3.4-5.0The [facility] HospitalComment on above:Performed By: #### CMP ####[facility] [address] [address]Dr. Carolina ChangAlbumin/Globulin [Mass ratio]0.5 {ratio}NormalThe [facility] Comment on above:Performed By: #### CMP ####[facility] O[address]ob[address] [place], [place] [address]Dr.Carolina ChangALP [Catalytic activity/Vol] 132 U/LCritically yxhs90-804Cov [facility] HospitalComment on above:Performed By: #### CMP ####[facility] [address] [address]Dr.Carolina ChangALT [Catalytic activity/Vol]29 U/VFaesdt47-29Vuu [facility] HospitalComment on above:Performed By: #### CMP ####[facility] M[address] [place], [place] [address]Dr.Carolina ChangAnion gap [Moles/Vol]10.9 mmol/LNormalThe [facility] HospitalComment on above:Performed By: #### CMP ####[facility] E[address] [place], [place] [address]Dr.Carolina ChangAST [Catalytic activity/Vol]19 U/HBflhwq45-34Qpu [facility] HospitalComment on above:Performed By: #### CMP ####[facility] [address] [place], [place] [address]Dr.Carolina ChangBilirubin [Mass/Vol]0.7 mg/dLNormal0.2-1.0The [facility] HospitalComment on above:Performed By: #### CMP ####[facility] Z[address] [place], [place] [address]Dr.Carolina ChangCalcium [Mass/Vol]9.7 mg/dLNormal8.5-10.1The [facility] HospitalComment on above:Performed By: #### CMP ####[facility] [address] [address]Dr.Yilan ChangChloride [Moles/Vol]99 mmol/ZXfqoxy35-624Zrn [facility] HospitalCommemorial healthcare on above:Performed By: #### CMP ####[facility] [address]hrxxcputv[address] [place], [place] [address]Dr.Yilan ChangCO2 [Moles/Vol]28.6 mmol/MVjylui90.0-32.0The [facility] HospitalComment on above:Performed By: #### CMP ####[facility] Lrsvjcrbg[address] [place], [place] [address]Dr.Yilan ChangCreatinine [Mass/Vol]1.34 mg/dLCritically high0.70-1.30The [facility] HospitalCommemorial healthcare on above:Performed By: #### CMP ####[facility] Cyavwiqf[address] [place], [place] [address]Dr.Yilan ChangEGFR-AF CYMRO>60Normal>=60The [facility] on above:Performed By: #### CMP ####[facility] Ntdluqpk[address] [place], [place] [address]Dr.Yilan ChangEGFR-NON AF EGOCEDWS65 mL/min/1.28k4Pymaezvynp low>=60The [facility] on above: Performed By: #### CMP ####[facility] [address]zel[address] [place], [place] [address]Dr.Yilan ChangGlobulin (S) [Mass/Vol]5.2 g/dLNormalThe [facility] HospitalComment on above:Performed By: #### CMP ####[facility] [address] [place], [place] [address]Dr.Yilan ChangGlucose [Mass/Vol]110 mg/dLCritically ueqs19-515Knd [facility] on above: Performed By: #### CMP ####[facility] [address]px[address] [place], [place] [address]Dr.Yilan ChangPotassium [Moles/Vol]4.5 mmol/LNormal 3.5-5.1The [facility] HospitalComment on above:Performed By: #### CMP ####[facility] [address] [place], [place] [address]Ji.Carolina Nam Protein [Mass/Vol]7.7 g/dLNormal6.4-8.2The [facility] on above: Performed By: #### CMP ####[facility] [address] [place], [place] [address]Ga.Yilan ChangSodium [Moles/Vol]134 mmol/LCritically xdy189-893Tnt [facility] on above:Performed By: #### CMP ####[facility] [address] [place], [place] [address]Nl. Yilan ChangUrea nitrogen [Mass/Vol]23.0 mg/dLCritically high7.0-18.0The [facility] on above:Performed By: #### CMP ####[facility] [address] [place], [place] [address]Ux.Yilan ChangUrea nitrogen/Creatinine [Mass ratio]17.2 mg/mgNoOhioHealth O'Bleness HospitalCommemorial healthcare on above:Performed By: #### CMP ####[facility] [address] [place], [place] [address]Hu.Yilan ChangXR KUB 1 VIEWon 18-30-0066PM KUB 1 VIEW EXAMINATION: XR KUB 1 [...] Electronically authenticated by: NITA VILLANUEVA Date: 2022-07-10 10:33NoOhioHealth O'Bleness HospitalXR CHEST 2 Von [id number] CHEST 2 VEXAM: XR CHEST 2 V HISTORY: Bronchitis COMPARISON: 08/22/21 TECHNIQUE: PA and lateral views of the chest. FINDINGS: The cardiomediastinal silhouette is enlarged. Patchy airspace disease. There is no pneumothorax. No pleural effusion is noted. The osseous structures are intact. IMPRESSION: Patchy airspace disease. Electronically authenticated by: ARTURO PETERSON Date: 2022-07-09 13:02[facility] AUTO DIFFon [id number] #0.1 103/ulNormal0.0-0.1The [facility] HospitalComment on above:Performed By: #### CBC #### [facility] [address] [address] [address] Carolina NamBasophils/100 WBC (Bld)0.9 %Normal0.2-2.0[facility] Comment on above:Performed By: #### CBC #### [facility] [address] [address] [address] Carolina Zhou #0.1 103/ulNormal0.0-0.7The [facility] HospitalComment on above: Performed By: #### CBC #### [facility] [address] [address] [address] Carolina Robleroosinophils/100 WBC (Bld)1.9 %Normal0.9-7.0The [facility] Comment on above:Performed By: #### CBC #### [facility] [address] [address] [address] Carolina Roblerorythrocyte distribution width (RBC) [Ratio]13.6 %Gtwajn80.0-15.0 Memorial HospitalComment on above:Performed By: #### CBC #### [facility] [address] [address] [address] Carolina NamHematocrit (Bld) [Volume fraction]40.1 %Critically low42.0-54.0 Memorial HospitalComment on above:Performed By: #### CBC #### [facility] [address] [address] [address] Carolina NamHemoglobin (Bld) [Mass/Vol]12.7 g/dLCritically low14.0-18.0The [facility] Hospitalment on above:Performed By: #### CBC #### [facility] [address] [address] [address] Carolina Og #0.02 10e3/ulNormal0.00-0.03The [facility] HospitalComment on above:Performed By: #### CBC #### [facility] [address] [place] [address] Dr. Carolina Og %0.4 %Normal0.0-0.5The [facility] HospitalCommemorial healthcare on above: Performed By: #### CBC #### [facility] [address] [place] [address] Dr. Carolina Aguilar #1.2 103/ulNormal1.2-3.8The [facility] HospitalCommemorial healthcare on above:Performed By: #### CBC #### [facility] [address] [place] [address] Dr. Carolina Barryhocytes/100 WBC (Bld)21.5 %Tputzv82.5-60.0The [facility] on above:Performed By: #### CBC #### [facility] [address] [place] [address] Dr. Carolina CaliUAL DIFF REQNONormalThe [facility] on above: Performed By: #### CBC #### [facility] [address] [place] [address] Dr. Carolina Martinez (RBC) [Entitic mass]30.0 sgGvgnxn89.9-34.0The [facility] Memorial Hospitalment on above:Performed By: #### CBC #### [facility] [address] [place] [address] Dr. Carolina Martinez (RBC) [Mass/Vol]31.7 g/oRZyicry04.9-35.2The [facility] on above:Performed By: #### CBC #### [facility] [address] [place] [address] Dr. Carolina Martinez (RBC) [Entitic vol]94.6 fLCritically high80.0-94.0The [facility] HospitalComment on above:Performed By: #### CBC #### [facility] [address] [address] [address] Carolina Joya #0.6 103/ulNormal0.3-0.8The [facility] HospitalComment on above:Performed By: #### CBC #### [facility] [address] [address] [address] Carolina Roseocytes/100 WBC (Bld)11.3 %Normal1.7-12.0The [facility] Comment on above:Performed By: #### CBC #### [facility] [address] [place] [address] Dr. Carolina De #3.6 103/ulNormal1.4-6.5The [facility] HospitalComment on above:Performed By: #### CBC #### [facility] [address] [place] [address] Dr. Carolina Priceutrophils/100 WBC (Bld)64.0 %Qstibn19.0-75.0The [facility] HospitalComment on above:Performed By: #### CBC #### [facility] [address] [place] [address] Dr. Carolina Gruber mean volume (Bld) [Entitic vol]9.4 fLCritically low 9.5-13.5The [facility] HospitalComment on above:Performed By: #### CBC #### [facility] [address] [place] [address] Dr. Carolina NamPLT234 103/azIazjek889-517Bza [facility] HospitalComment on above: Performed By: #### CBC #### [facility] [address] [place] [address] Dr. Carolina NamRBC4.24 106/ulCritically low4.70-6.10The [facility] HospitalComment on above:Performed By: #### CBC #### [facility] [address] [place] [address] Dr. Carolina NamWBC5.7 103/ulNormal4.0-11.0The [facility] HospitalComment on above: Performed By: #### CBC #### [facility] [address] [address] [address] Carolina BurtonID PROFILEon [id number]-HDL RATIO NORMSMercy Health St. Anne HospitalComment on above:Result Comment: 3.3 - 4.4 LOW RISK 4.4 - 7.1 AVERAGE RISK 7.1 - 11.0 MODERATE RISK >11.0 HIGH RISKPerformed By: #### LIPID, CMP #### [facility] [address] [address] [address] Carolina NamCholesterol [Mass/Vol]193 mg/dLNormal<=200The [facility] Comment on above:Performed By: #### LIPID, CMP #### [facility] [address] [address] [address] Carolina NamCholesterol in HDL [Mass/Vol]52 mg/dQXqxula34-32Cez [facility] HospitalComment on above:Performed By: #### LIPID, CMP #### [facility] [address] [address] [address] Carolina NamCholesterol in LDL [Mass/Vol]126.8 mg/dLMercy Health Defiance HospitalCommemorial healthcare on above:Performed By: #### LIPID, CMP #### [facility] [address] [address] [address] Carolina NamCholesterlawrence.total/Cholesterol in HDL [Mass ratio]3.7 {ratio} NormalMemorial HospitalComment on above:Performed By: #### LIPID, CMP #### [facility] [address] [address] [address] Carolina NamHDL NORMAL> or = 60 mg/dl - LOW CARDIOVASCULAR RISK <40 mg/dl - HIGH CARDIOVASCULAR RISKMercy Health Defiance HospitalCommemorial healthcare on above:Performed By: #### LIPID, CMP #### [facility] [address] [address] [address] Carolina NamLDL CALC NORMALSEE [facility] HospitalComment on above:Result Comment: <100 mg/dl OPTIMAL 100 - 129 mg/dl NEAR OR ABOVE OPTIMAL 130 - 159 mg/dl BORDERLINE HIGH 160 - 189 mg/dl HIGH >190 mg/dl VERY HIGH Performed By: #### LIPID, CMP #### [facility] [address] [place] [address] Dr. Carolina NamTriglyceride [Mass/Vol]71 mg/dLNormal<=150The [facility] Comment on above:Performed By: #### LIPID, CMP #### [facility] [address] [place] [address] Dr. Carolina NamVLDL CALC14.2 mg/dLNormalThe [facility] HospitalComment on above: Performed By: #### LIPID, CMP #### [facility] [address] [place] [address] Dr. Carolina NamPROF 14(COMP METB)on 99-78-6912Fcfchuq [Mass/Vol]3.6 g/dLNormal 3.4-5.0The [facility] HospitalComment on above:Performed By: #### LIPID, CMP #### [facility] [address] [place] [address] Dr. Carolina NamAlbumin/Globulin [Mass ratio]0.9 {ratio}NormalThe [facility] HospitalComment on above:Performed By: #### LIPID, CMP #### [facility] [address] [place] [address] Dr. Carolina Awan [Catalytic activity/Vol]124 U/LCritically qlsp27-959Ayx [facility] HospitalComment on above:Performed By: #### LIPID, CMP #### [facility] [address] [place] [address] Dr. Carolina Velazquez [Catalytic activity/Vol]24 U/BQmzwqt26-23Qnd [facility] HospitalComment on above:Performed By: #### LIPID, CMP #### [facility] [address] [place] [address] Dr. Carolina Hicks gap [Moles/Vol]9.5 mmol/LNormalThe [facility] HospitalComment on above:Performed By: #### LIPID, CMP #### [facility] [address] [place] [address] Dr. Carolina NamAST [Catalytic activity/Vol]22 U/CYgqxxb72-41Jbo [facility] Memorial Hospitalment on above:Performed By: #### LIPID, CMP #### [facility] [address] [address] [address] Carolina NamBilirubin [Mass/Vol]0.6 mg/dLNormal0.2-1.0The [facility] Comment on above:Performed By: #### LIPID, CMP #### [facility] [address] [address] [address] Carolina NamCalcium [Mass/Vol]9.5 mg/dLNormal8.5-10.1The [facility] Comment on above:Performed By: #### LIPID, CMP #### [facility] [facility] [address] [place] [address] Dr. Carolina NamChloride [Moles/Vol]104 mmol/KRwqpio94-125Wts [facility] Comment on above:Performed By: #### LIPID, CMP #### [facility] [address] [place] [address] Dr. Carolina NamCO2 [Moles/Vol]28.9 mmol/YZdghuj92.0-32.0The [facility] Comment on above:Performed By: #### LIPID, CMP #### [facility] [address] [place] [address] Dr. Carolina NamCreatinine [Mass/Vol]1.17 mg/dLNormal0.70-1.30The [facility] HospitalComment on above:Performed By: #### LIPID, CMP #### [facility] [address] [place] [address] Dr. Carolina RobleroGFR-AF CYMRO>60Normal>=60The [facility] HospitalComment on above:Performed By: #### LIPID, CMP #### [facility] [address] [place] [address] Dr. Carolina RobleroGFR-NON AF CYMRO=60Normal>=60The [facility] HospitalComment on above:Performed By: #### LIPID, CMP #### [facility] [address] [place] [address] Dr. Carolina NamGlobulin (S) [Mass/Vol]4.1 g/dLNormAdena Fayette Medical CenterComment on above:Performed By: #### LIPID, CMP #### [facility] [address] [address] [address] Carolina NamGlucose [Mass/Vol]92 mg/cYEscqyt32-870[facility] Comment on above:Performed By: #### LIPID, CMP #### [facility] [address] [address] [address] Carolina NamPotassium [Moles/Vol]4.4 mmol/LNormal3.5-5.1The [facility] Comment on above:Performed By: #### LIPID, CMP #### [facility] [address] [address] [address] Carolina NamProtein [Mass/Vol]7.7 g/dLNormal6.4-8.2The [facility] Comment on above:Performed By: #### LIPID, CMP #### [facility] [address] [address] [address] Carolina NamSodium [Moles/Vol]138 mmol/AAnmffo515-890[facility]yc[facility] Comment on above:Performed By: #### LIPID, CMP #### [facility] [address] [address] [address] Carolina NamUrea nitrogen [Mass/Vol]21.0 mg/dLCritically high7.0-18.0The [facility] HospitalComment on above:Performed By: #### LIPID, CMP #### [facility] [address] [place] [address] Dr. Carolina NamUrea nitrogen/Creatinine [Mass ratio]17.9 mg/mgNoOhioHealth O'Bleness HospitalComment on above:Performed By: #### LIPID, CMP #### [facility] [address] [place] [address] Dr. Carolina NamCOVID-19, Rapidon 73-05-7912BYTN-CoV-2 (COVID-19) RNA NAY+probe Ql (Unsp spec)Not detectedNot [facility] on above: Rapid NAAT: The specimen is [...] management decisions. Fact sheet for Healthcare Providers: https://www.fda.gov/media/893143/download Fact sheet for Patients: https://www.fda.gov/media/123834/download Methodology: Isothermal Nucleic Acid Amplification Specimen Description.NASOPHARYNGEAL SWABRivers[facility] Specimen: [id number] Received: 10/23/21 Status: MARIA FERNANDA Cortes Num: [id number] Spec Type: Surgical Subm Dr: Mik Amaya MD Tissues: A Esophagus Biopsy (ESOPHAGUS) Procedures: HE Stain/2, Gross/Micro L4 Age/ Patient Sex Location Account Attending Physician Bret Yap 81/M [id number] Mik Amaya MD SPEC NUM: [id number] RECD: 10/23/21 STATUS: MARIA FERNANDA ELENI NUM: [id number] YEIMI: 10/23/[address] [facility] [address]: Mik Amaya MD ENTERED: 10/23/[address] [facility] DR: TIA TYPE: Surgical DEPT: S ENTERED BY: [id number] RECV BY: [id number] ORDERED: HE Stain/2, Gross/Micro L4 ORDERED: HE [...] microscopic findings support the above pathologic diagnosis. [id number] Specimen: [id number] Received: 10/23/21 Status: MARIA FERNANDA Cortes Num: [id number] Spec Type: Surgical Subm Dr: Mik Amaya MD Tissues: A Esophagus Biopsy (ESOPHAGUS) Procedures: HE Stain/2, Gross/Micro L4 Patient: Bret Yap [id number] (Continued) Signed (signature on file) Va Daugherty MD 10/24/21 7138 [facility] HealthCOVID[facility]19 [facility]MANon [id number]-CoV-2 (COVID-19) RNA NAY+probe Ql (Unsp spec)NegativeNormalNegativeOhiohealth Mansfield HospitalComment on above:Order Comment: Healthcare Worker?: NResult Comment: Testing for SARS-CoV-2 by RT-PCR This test was developed and its performance characteristics determined by [employer] ([place]) and validated at the [facility]. This test has not been FDA [...] is terminated or revoked sooner. PERFORMED BY: [place] [address] PATHOLOGIST CRITICAL CARE NURSE VA DAUGHERTY M.D.Performed By: #### COVID 19 [facility] #### [place] [address] USACOVID-19 Positive/NegativeOrdered By: Mik Amaya on 87-58-0037KNWD-CoV-2 (COVID-19) N gene NAY+probe Ql (Resp)NegativeNegative [facility] HospitalComment on above:Testing for SARS-CoV-2 by RT-PCR This test was developed and its performance characteristics determined by [employer] ([employer]) and validated at the [facility]. This test has not been FDA [...] terminated or revoked sooner.WRIST RIGHT 2 VWSon [id number] RIGHT 2 VWSUniversBrown Memorial Hospital Department of Radiology [address] [place] [address] Patient Name: BRET YAP : [...] joint. Electronically signed: Sofia Thakur. Transcribed by: [email or web address], User Resident: Electronically Signed by: SOFIA THAKUR @ 10/13/2021 03:52 [facility] Hospital - YoungstownComment on above:Order Comment: EvaluateWRIST RIGHT 2 VWSon [id number] RIGHT 2 SUniMount Carmel Health System Department of Radiology [address] [place] [address] Patient Name: BRET YAP : 1940 [...] report. Electronically signed: Sally Reddy. Transcribed by: [email or web address], User Resident: SALLY GALLAGHER Electronically Signed by: SALLY REDDY @ 08/31/2021 04:36 PM I personally read this/these film(s) with this [facility] Memorial HospitalComment on above:Order Comment: EvaluateCovid-19 PCR (CVDTB)on 53-75-5831MEXQ-CoV-2 (COVID-19) RNA NAY+probe Ql (Unsp spec)Not detectedNormalNOT DETECTEDThe [facility] HospitalComment on above:Result Comment: This test is not yet approved or cleared by the [place] FDA. When there are no FDA-approved or cleared tests available, and other criteria are met, FDA can make tests available under an emergency access mechanism called an Emergency Use Authorization (EUA). The EUA for this test is supported by the Head Of Acquisitions of Health and Human Service's (HHS's) declaration [...] consistent with SARS-CoV-2.Performed By: #### CVDTBH #### [facility] [id number] Carolina NamXR CHEST 2 Von 55-83-3023NG CHEST 2 VEXAMINATION: XR CHEST 2 V [...] Electronically authenticated by: NITA VILLANUEVA Date: 2021-08-22 12:35[facility] HospitalOperative Reporton [id number] ReportMR#: [id number] S [facility] Pt. Name: Bret Yap Room #: [...] of the long, ring, and small fingers. CAUSTIC PREPARER: Kush Mccartney M.D. ANESTHESIA: Regional. INDICATION FOR [...] point, I had planned on doing a tvwj-re-cpdk transfer of the ring and small tendons [...] a K-wire d (more content not included)...NormalThe [facility] GLUCOSE LABon 16-33-7978Txjqsih [Mass/Vol]93 mg/zCMqbwvm83-746 The [facility] Regional HospitalComment on above:Performed By: #### [id number] #### [facility] [address] [place] [address], [facility] SARS COV2 IDon [id number]-CoV-2 (COVID-19) RNA NAY+probe Ql (Unsp spec)NegativeNormalNEGATIVEThe [facility] HospitalComment on above:Result Comment: MANFRED NOW COVID-19 assay performed on the ID [...] Compliance, or Certificate of Accreditation.Performed By: #### [id number] #### [address] [place] [address], [facility] TREATMENT CENTERWRIST RIGHT 2 [facility] [id number] RIGHT 2 SUniversBrown Memorial Hospital Department of Radiology [address] [place] [address] Patient Name: BRET YAP : 1940 [...] suave kapundji procedure Exam: WRIST RIGHT 2 VWS WRIST RIGHT 2 VWS 07/16/2021 9:10 AM CLINICAL INDICATIONS: Intra-op fluoro. [...] note Electronically signed: Kierra Rosales. Transcribed by: [email or web address], User Resident: Electronically Signed by: KIERRA ROSALES @ 07/16/2021 10:16 [facility] HospitalComment on above:Order Comment: Intra-op fluoro. Right wrist suave kapundji procedureCNPNon 63-12-3530XRFUHnstzjpqt (HEMASA) BRET YAP ([id number]) 1940 M Date Time Provider Department 07/13/21 [...] Fully Assessed Reason for Visit: Care Coordination [7667] Cmt: appointment question Prescriptions as of 07/13/2021 [...] (None) Encounter Status:Closed by AURE RIDDLE on 07/13/21Corey HospitalPankaj [id number] ([place]MASA) BRET YAP ([id number]) 1940 M Date Time Provider Department 07/06/21 RUBEN TELLEZ During your visit today, we recorded the following information about you: Ruben Tellez RN 07/06/2021 1:34 PM Signed Received message from pt wanting to know lab results and if colonoscopy was still needed. LIORK: Any message for pt regarding lab results? Proceed with GI referral? GREGORIO Gomez MD 07/06/2021 2:05 PM Signed Please proceed with GI referral for scopes. His other labs for anemia were negative. He has MGUS as well that I discussed with him at last visit. Happy to talk to him again when he comes for a follow up on 07-17-21. Thanks, JESSICA Tellez RN 07/06/2021 2:51 PM Signed Returned [...] GREGORIO Gomez MD 07/06/2021 4:55 PM Signed End of August is fine. No worries. Thanks, JESSICA Tellez RN 07/09/2021 9:44 AM Signed Informed [...] (None) Encounter Status:Closed by RUBEN TELLEZ on 07/06/21Corey HospitalWRIST RIGHT 2 Son [id number] RIGHT 2 [facility] Department of Radiology [address] [place] [phone] Patient Name: BRET YAP : 1940 [...] above. Electronically signed: Nestor Bonilla. Transcribed by: [email or web address], User Resident: Electronically Signed by: NESTOR BONILLA @ 07/05/2021 09:[address] Auto Differential panel (Bld)on 72-57-6743Yjqgogtwx (Bld) [#/Vol]0.07 10*3/uLNormal<0.11CBethesda North Hospital on above:Order Comment: Specimen Type: BLOOD SPECIMEN Ordering Facility: [facility] Address: [address] [place], [place] [address]Performed By: #### 38699-5 #### [facility] CLIA [id number] [address] [place] [address] [place] [address] [place] OF AMERICABasophils/100 WBC (Bld)1.0 % NormalCherrington Hospital on above:Order Comment: Specimen Type: BLOOD SPECIMEN Ordering Facility: [facility] Address: [address] [place], [place] [address]Performed By: #### 60162-0 #### [facility] CLIA [id number] [address] [place] [address] [place] OF AMERICADifferential cell count method Nom (Bld)AutoNormalCBethesda North Hospital on above:Order Comment: Specimen Type: BLOOD SPECIMEN Ordering Facility: [facility] Address: [address] [place], [place] [address]Performed By: #### 00687-4 #### [facility] CLIA [id number] [address] [place] [address] [place] OF AMERICAEosinophils (Bld) [#/Vol] 0.09 10*3/uLNormal<0.46[facility] on above:Order Comment: Specimen Type: BLOOD SPECIMEN Ordering Facility: [facility] Address: [address] [place], [place] [address]Performed By: #### 22954-5 #### [facility] [place] [id number] [address] [place] [address] [place] OF AMERICAEosinophils/100 WBC (Bld)1.3 %NormalCherrington Hospital on above:Order Comment: Specimen Type: BLOOD SPECIMEN Ordering Facility: [facility] Address: [address] [place], [place] [address]Performed By: #### 60758-5 #### [facility] [place] [id number] [address] [place] [address] [place] OF AMERICAErythrocyte distribution width (RBC) [Ratio]13.7 %Yqhvtf20.5-15.0[facility] on above:Order Comment: Specimen Type: BLOOD SPECIMEN Ordering Facility: [facility] Address: [address] [place], [place] [address]Performed By: #### 24468-5 #### [facility] [place] [id number] [address] [place] [address] [place] OF AMERICAHematocrit (Bld) [Volume fraction]42.3 %Wgletu37.0-51.0[facility] on above:Order Comment: Specimen Type: BLOOD SPECIMEN Ordering Facility: [facility] Address: [address] [place], [place] [address]Performed By: #### 64471-4 #### [facility] CLIA [id number] [address] [place] [address] [place] OF AMERICAHemoglobin (Bld) [Mass/Vol] 13.1 g/yKQzogzx30.0-17.0[facility] on above:Order Comment: Specimen Type: BLOOD SPECIMEN Ordering Facility: [facility] Address: [address] [place], [place] [address]Performed By: #### 90183-5 #### [facility] CLIA [id number] [address] [place] [address] [place] OF AMERICAIMMATURE GRAN %0.3 %Normal [facility] on above:Order Comment: Specimen Type: BLOOD SPECIMEN Ordering Facility: [facility] Address: [address] [place], [place] [address]Performed By: #### 82604-6 #### [facility] CLIA [id number] [address] [place] [address] [place] OF AMERICAIMMATURE GRAN ABS<0.03Normal <0.10[facility] on above:Order Comment: Specimen Type: BLOOD SPECIMEN Ordering Facility: [facility] Address: [address] [place], [place] [address]Performed By: #### 41555-7 #### [facility] CLIA [id number] [address] [place] [address] [place] OF AMERICALymphocytes (Bld) [#/Vol] 1.39 10*3/uLNormal1.00-4.00[facility] on above:Order Comment: Specimen Type: BLOOD SPECIMEN Ordering Facility: [facility] Address: [address] [place], [place] [address]Performed By: #### 48350-2 #### [facility] CLIA [id number] [address] [place] [address] [place] [facility] MEDICAL CENTERLymphocytes/100 WBC (Bld) 20.5 %NormalCherrington Hospital on above:Order Comment: Specimen Type: BLOOD SPECIMEN Ordering Facility: [facility] Address: [address] [place], [place] [address]Performed By: #### 89776-3 #### [facility] CLIA [id number] [address] [place] [address] STATES [facility] (RBC) [Entitic mass]29.8 zlNocgwd95.0-34.0[facility] on above:Order Comment: Specimen Type: BLOOD SPECIMEN Ordering Facility: [facility] Address: [address] [place], [place] [address]Performed By: #### 40671-9 #### [facility] CLIA [id number] [address] [place] [address] [place] [facility] CENTERHC (RBC) [Mass/Vol]31.0 g/lLMhuppb52.5-36.0[facility] on above:Order Comment: Specimen Type: BLOOD SPECIMEN Ordering Facility: [facility] Address: [address] [place] [address]Performed By: #### 92797-4 #### [facility] CLIA [id number] [address] [place] [address] [place] [facility] (RBC) [Entitic vol]96.4 jHFifolr17.0-100.0[facility] on above:Order Comment: Specimen Type: BLOOD SPECIMEN Ordering Facility: [facility] Address: [address] [place] [address]Performed By: #### 08293-8 #### [facility] CLIA [id number] [address] [place] [address] [place] OF AMERICAMonocytes (Bld) [#/Vol]0.97 10*3/uLHigh<0.87[facility] on above:Order Comment: Specimen Type: BLOOD SPECIMEN Ordering Facility: [facility] Address: [address] [place], [place] [address]Performed By: #### 98873-4 #### [facility] CLIA [id number] [address] [place] [address] [place] AMERICAMonocytes/100 WBC (Bld)14.3 %NormalCherrington Hospital on above:Order Comment: Specimen Type: BLOOD SPECIMEN Ordering Facility: [facility] Address: [address] [place], [place] [address]Performed By: #### 90009-0 #### [facility] CLIA [id number] [address] [place] [address] [place] OF AMERICANeutrophils (Bld) [#/Vol] 4.23 10*3/uLNormal1.45-7.50[facility] on above:Order Comment: Specimen Type: BLOOD SPECIMEN Ordering Facility: [facility] Address: [address] [place], [place] [address]Performed By: #### 96319-8 #### [facility] CLIA [id number] [address] [place] [address] [place] OF AMERICANeutrophils/100 WBC (Bld) 62.6 %NormalCherrington Hospital on above:Order Comment: Specimen Type: BLOOD SPECIMEN Ordering Facility: [facility] Address: [address] [place], [place] [address]Performed By: #### 11129-3 #### [facility] CLIA [id number] [address] [place] [address] [place] OF AMERICANucleated RBC (Bld) [#/Vol] 10*3/uLNormal<0.01[facility] on above:Order Comment: Specimen Type: BLOOD SPECIMEN Ordering Facility: [facility] Address: [address] [place] [phone] By: #### 19910-1 #### [facility] CLIA [id number] [address] [place] [address] [place] OF AMERICANucleated RBC/100 WBC (Bld) [Ratio]0.0 /100 WBCNormalCBethesda North Hospital on above:Order Comment: Specimen Type: BLOOD SPECIMEN Ordering Facility: [facility] Address: [address] [place], [place] [address]Performed By: #### 11347-1 #### [facility] CLIA [id number] [address] [place] [address] [place] OF AMERICAPlatelet mean volume (Bld) [Entitic vol]9.4 fLNormal9.0-12.7CBethesda North Hospital on above: Order Comment: Specimen Type: BLOOD SPECIMEN Ordering Facility: [facility] Address: [address] [place] [phone] By: #### 06362-7 #### [facility] CLIA [id number] [address] [place] [address] [place] OF AMERICAPlatelets (Bld) [#/Vol]232 10*3/wVNthavz276-357MockgqpohCherrington Hospital on above:Order Comment: Specimen Type: BLOOD SPECIMEN Ordering Facility: [facility] Address: [address] [place] [phone] By: #### 84996-1 #### [facility] CLIA [id number] [address] [place], [place] [address] [place] OF AMERICARBC (Bld) [#/Vol]4.39 10*6/uLNormal4.20-6.00[facility] on above:Order Comment: Specimen Type: BLOOD SPECIMEN Ordering Facility: [facility] Address: [address] [place], [place] [address]Performed By: #### 57225-1 #### [facility] CLIA [id number] [address] [place] [address] STATES OF AMERICAWBC (Bld) [#/Vol]6.77 10*3/uLNormal3.70-11.00St. Charles HospitalvelandComment on above:Order Comment: Specimen Type: BLOOD SPECIMEN Ordering Facility: [facility] Address: [address] [place], [place] [address]Performed By: #### 14355-0 #### [facility] CLIA [id number] [address] [place] [address] STATES OF AMERICAAbs Immature Gran<0.03<0.10 k/uLWood County HospitalBasophils (Bld) [#/Vol]0.07 10*3/uL<0.11 k/uLWood County HospitalBasophils/100 WBC (Bld)1.0 %[facility] County HospitalDifferential cell count method Nom (Bld)AutoCleveland ClinicEosinophils (Bld) [#/Vol]0.09 10*3/uL<0.46 k/uL [facility] HospitalEosinophils/100 WBC (Bld)1.3 %[facility] County HospitalErythrocyte distribution width (RBC) [Ratio]13.7 %11.5 - 15.0 %[facility] County HospitalHematocrit (Bld) [Volume fraction]42.3 %39.0 - 51.0 %[facility] County HospitalHemoglobin (Bld) [Mass/Vol]13.1 g/dL13.0 - 17.0 g/dLWood County HospitalImmature Gran %0.3 %[facility] County HospitalLymphocytes (Bld) [#/Vol]1.39 10*3/uL1.00 - 4.00 k/uLWood County Hospital Lymphocytes/100 WBC (Bld)20.5 %[facility] NorthH (RBC) [Entitic mass]29.8 pg 26.0 - 34.0 pgCleveland Ely-Bloomenson Community HospitalMCHC (RBC) [Mass/Vol]31.0 g/dL30.5 - 36.0 g/dL [facility] County HospitalMCV (RBC) [Entitic vol]96.4 fL80.0 - 100.0 fLCSycamore Medical Center Monocytes (Bld) [#/Vol]0.97 10*3/uLHigh<0.87 k/uLWood County HospitalMonocytes/100 WBC (Bld)14.3 %[facility] County HospitalNeutrophils (Bld) [#/Vol]4.23 10*3/uL1.45 - 7.50 k/uLWood County HospitalNeutrophils/100 WBC (Bld)62.6 %[facility] County HospitalNucleated RBC (Bld) [#/Vol]10*3/uL<0.01 k/uLWood County HospitalNucleated RBC/100 WBC (Bld) [Ratio]0.0 /100 WBCWood County HospitalPlatelet mean volume (Bld) [Entitic vol]9.4 fL9.0 - 12.7 fLCmercy health ClinicPlatelets (Bld) [#/Vol]232 10*3/uL150 - 400 k/uL [facility] County HospitalRBC (Bld) [#/Vol]4.39 10*6/uL4.20 - 6.00 m/[facility] HospitalWBC (Bld) [#/Vol]6.77 10*3/uL3.70 - 11.00 k/[facility] HospitalCNOVSPon 07-02-2021 CNOVSPVisit (SP) Office (HEMAS[place]) BRET YAP ([id number]) 1940 M Date Time Provider Department 07/02/21 [...] substance abuse. He lives with his in [place], [place] MEDICATIONS AND ALLERGIES: Reviewed PHYSICAL EXAM [...] monoclonal gammopathy of clin (more content not included)...NormalAvita Health SystemCNPNon 69-67-1156RKXXZggjbttss ([facility]) MARELYBRET ([id number]) 1940 M Date Time Provider Department 07/02/21 KETAN MANZANARES [facility] During your visit today, we recorded the following information about you: Jatinder Krause 07/02/2021 11:57 AM Signed See GI for scopes Patient would prefer to stay locally. Dominique/Ty: Can you please refer patient to [facility]? Thanks! Jatinder [facility] 07/02/2021 12:46 PM Signed Dominique: Information ready for you. Miranda [facility] Prabha [facility] 07/02/2021 1:06 PM Signed Records faxed. Miranda Holland [facility] 07/04/2021 10:12 AM Signed Called Lili Swain spoke with Mary. She states she has not yet gone thru all of their faxes at this time and states for me to call back to check on status of this referral. Miranda [facility] Miranda Holland [facility] 07/05/2021 2:13 PM Signed Called Lili Swain spoke with Mary. She states they have received referral and their community service officer coordinator will be calling patient soon to schedule. Miranda [facility] Miranda Holland [facility] 07/12/2021 1:49 PM Signed Called Lili Swain [...] an appointment with their office. Miranda Holland [facility] Miranda Holland [facility] 07/16/2021 3:04 PM Signed Called Lili Swain spoke with Mary. She states they have patient scheduled with Dr Amaya on 10/04 @ 1:30. Miranda Holland [facility] Allergies As of Date: 07/02/2021 Noted Allergy Reaction BACTRIM (SULFAMETHOXAZOLE-TRIMETH*06/27/2021 16 - Unknown INDOCIN (INDOMETHACIN) 06/27/2021 16 - Unknown Date Reviewed: 07/02/2021 Reviewed by: Jennifer Tucker - Fully Assessed Reason for Visit: Referral Information [4104] Cmt: GI Prescriptions as of 07/18/2021 - [...] (None) Encounter Status:Closed by JATINDER KRAUSE on 07/18/21NormalCHolzer Health SystemCR SerPl-mCncon 51-68-2757PFV [Mass/Vol]0.7 mg/dLNormal<0.9CBethesda North Hospital on above:Order Comment: Specimen Type: BLOOD SPECIMEN Ordering Facility: [facility] Address: [address] [place], [place] [address]Performed By: #### 1988-5, B12, 4542-7, 3016-3 #### [facility] CLIA [id number] [address] [place] [address] [place] [address] [place] OF AMERICAComprehensive metabolic 2000 panelon 06-97-8789Gosooxz [Mass/Vol]4.5 g/dLNormal3.9-4.9CBethesda North Hospital on above:Order Comment: Specimen Type: BLOOD SPECIMEN Ordering Facility: [facility] Address: [address] [place], [place] [address]Performed By: #### 55286-7 #### [facility] CLIA [id number] [address] [place], [place] [address] [place] OF AMERICAALP [Catalytic activity/Vol] 130 U/VHwyy14-173YccgtqxehCherrington Hospital on above:Order Comment: Specimen Type: BLOOD SPECIMEN Ordering Facility: [facility] Address: [address] [place], [place] [address]Performed By: #### 77224-4 #### [facility] CLIA [id number] [address] [place], [place] [address] [place] OF AMERICAALT [Catalytic activity/Vol] 13 U/XMywjvv81-49XludukgbeCherrington Hospital on above:Order Comment: Specimen Type: BLOOD SPECIMEN Ordering Facility: [facility] Address: [address] [place] [phone] By: #### 95907-7 #### [facility] CLIA [id number] [address] [place], [place] [address] [place] OF AMERICAAnion gap [Moles/Vol]9 mmol/LNormal9-18[facility] on above:Order Comment: Specimen Type: BLOOD SPECIMEN Ordering Facility: [facility] Address: [address] [place] [phone] By: #### 56703-2 #### [facility] CLIA [id number] [address] [place], [place] [address] [place] OF AMERICAAST [Catalytic activity/Vol] 20 U/NYfabaq02-40QhihdfpsdCherrington Hospital on above:Order Comment: Specimen Type: BLOOD SPECIMEN Ordering Facility: [facility] Address: [address] [place] [address]Performed By: #### 71336-1 #### [facility] CLIA [id number] [address] [place] [address] [place] AMERICABilirubin [Mass/Vol]0.5 mg/dLNormal0.2-1.3CBethesda North Hospital on above:Order Comment: Specimen Type: BLOOD SPECIMEN Ordering Facility: [facility] Address: [address] [place] [address]Performed By: #### 73739-1 #### [facility] CLIA [id number] [address] [place] [address] [place] AMERICACalcium [Mass/Vol]9.7 mg/dL Normal8.5-10.2CBethesda North Hospital on above:Order Comment: Specimen Type: BLOOD SPECIMEN Ordering Facility: [facility] Address: [address] [place] [address]Performed By: #### 90603-6 #### [facility] CLIA [id number] [address] [place] [address] [place] AMERICAChloride [Moles/Vol]102 mmol/PFvwkht10-527EvbpbrxqkCherrington Hospital on above:Order Comment: Specimen Type: BLOOD SPECIMEN Ordering Facility: [facility] Address: [address] [place] [phone] By: #### 45963-3 #### [facility] CLIA [id number] [address] [place], [place] [address] [place] OF AMERICACO2 [Moles/Vol]27 mmol/L Gtxkez83-70AwvplpkuwCherrington Hospital on above:Order Comment: Specimen Type: BLOOD SPECIMEN Ordering Facility: [facility] Address: [address] [place] [phone] By: #### 85650-9 #### [facility] CLIA [id number] [address] [place] [address] [place] AMERICACreatinine [Mass/Vol]1.17 mg/dLNormal0.73-1.22[facility] on above:Order Comment: Specimen Type: BLOOD SPECIMEN Ordering Facility: [facility] Address: [address] [place], [place] [address]Performed By: #### 51004-7 #### [facility] CLIA [id number] [address] [place] [address] [place] AMERICAESTIMATED GLOMERULAR FILTRATION RATE63 mL/min/1.73m???Normal>=60[facility] on above:Order Comment: Specimen Type: BLOOD SPECIMEN Ordering Facility: [facility] Address: [address] [place] [address]Result Comment: Estimated Glomerular Filtration Rate (eGFR) is [...] not accurately reflect actual GFR.Performed By: #### 90943-4 #### [facility] CLIA [id number] [address] [place] [address] [place] AMERICAGlucose [Mass/Vol]107 mg/dL Ludm43-69NgyispmcpCherrington Hospital on above:Order Comment: Specimen Type: BLOOD SPECIMEN Ordering Facility: [facility] Address: [address] [place], [place] [address]Result Comment: The [place] Diabetes Association (ADA) provides guidance for cutoff [...] Standards of Medical Care in Diabetes 2016, [place] [employer]. Diabetes Care. 2016.39(Suppl 1).Performed By: #### 08984-4 #### [facility] CLIA [id number] [address] [place] [address] [place] AMERICAPotassium [Moles/Vol]4.1 mmol/LNormal3.7-5.1CBethesda North Hospital on above:Order Comment: Specimen Type: BLOOD SPECIMEN Ordering Facility: [facility] Address: [address] [place], [place] [address]Performed By: #### 18507-5 #### [facility] CLIA [id number] [address] [place] [address] [place] AMERICAProtein [Mass/Vol]7.6 g/dL Normal6.3-8.0[facility] on above:Order Comment: Specimen Type: BLOOD SPECIMEN Ordering Facility: [facility] Address: [address] [place], [place] [address]Performed By: #### 79737-0 #### [facility] CLIA [id number] [address] [place] [address] [place] AMERICASodium [Moles/Vol]138 mmol/L Lwcotz482-032FrnrcqwpcCherrington Hospital on above:Order Comment: Specimen Type: BLOOD SPECIMEN Ordering Facility: [facility] Address: [address] [place], [place] [address]Performed By: #### 38955-7 #### [facility] CLIA [id number] [address] [place] [address] [place] AMERICAUrea nitrogen [Mass/Vol]22 mg/dLNormal9-24[facility] on above:Order Comment: Specimen Type: BLOOD SPECIMEN Ordering Facility: [facility] Address: [address] [place], [place] [address]Performed By: #### 48049-3 #### [facility] CLIA [id number] [address] [place] [address] STATES OF [facility] HOSPITALAlbumin [Mass/Vol]4.5 g/dL 3.9 - 4.9 g/dLWorthington ClinicALP [Catalytic activity/Vol]130 U/LHigh38 - 113 U/LCleveland ClinicALT [Catalytic activity/Vol]13 U/L10 - 54 U/LCleveland Clinic Anion gap [Moles/Vol]9 mmol/L9 - 18 mmol/LCleveland ClinicAST [Catalytic activity/Vol]20 U/L14 - 40 U/LCleveland ClinicBilirubin [Mass/Vol]0.5 mg/dL0.2 - 1.3 mg/dLWorthington ClinicCalcium [Mass/Vol]9.7 mg/dL8.5 - 10.2 mg/dLWorthington ClinicChloride [Moles/Vol]102 mmol/L97 - 105 mmol/LCleveland ClinicCO2 [Moles/Vol]27 mmol/L22 - 30 mmol/LCleveland Ely-Bloomenson Community HospitalCreatinine [Mass/Vol]1.17 mg/dL0.73 - 1.22 mg/dLWood County HospitalEstimated Glomerular Filtration Rate63 mL/min/1.73m>=60 mL/min/1.73mCleveland ClinicGlucose [Mass/Vol]107 mg/qOFrmk32 - 99 mg/dLWood County HospitalPotassium [Moles/Vol]4.1 mmol/L3.7 - 5.1 mmol/L Worthington ClinicProtein [Mass/Vol]7.6 g/dL6.3 - 8.0 g/dLWorthington ClinicSodium [Moles/Vol]138 mmol/L136 - 144 mmol/LCleveland Ely-Bloomenson Community HospitalUrea nitrogen [Mass/Vol]22 mg/dL9 - 24 mg/dLWood County HospitalEPO SerPl-aCncon 05-65-6904Xiggjpswkcsqyj (EPO) Qn14.7 mIU/mLNormal2.6-18.5C[facility] Critical Access HospitalComment on above:Order Comment: Specimen Type: BLOOD SPECIMEN Ordering Facility: [facility] Address: [address] [place], [place] [phone] By: #### 50508-1 #### [facility] CLIA [id number] [address] [place] [address] [place] AMERICAESR Westergren method (Bld) [Velocity]on 01-79-8122RKA (Bld) [Velocity]29 mm/hHigh0-15[facility] on above:Order Comment: Specimen Type: BLOOD SPECIMEN Ordering Facility: [facility] Address: [address] [place], [place] [address]Performed By: #### 09005-5 #### [facility] CLIA [id number] [address] [place] [address] [place] AMERICAHaptoglob SerPl-mCncon 29-73-7903Lsdchhxeakv [Mass/Vol]189 mg/nTClhllk21-407ZbiobzigtAvita Health System Comment on above:Order Comment: Specimen Type: BLOOD SPECIMEN Ordering Facility: [facility] Address: [address] [place], [place] [address]Performed By: #### 1988-5, B12, 4542-7, 3016-3 #### [facility] CLIA [id number] [address] [place] [address] [place] AMERICAIMMUNOFIXATION SCREEN, SERUM on 32-74-3482BGDRSCSRDJMSDA (MPA)Atypical restricted bands are present in the IgG and lambda regions. Consistent with IgG lambda monoclonal gammopathy.Normal [facility] on above:Order Comment: Specimen Type: BLOOD SPECIMEN Ordering Facility: [facility] Address: [address] [place], [place] [address]Performed By: #### 2885-2, [id number], IFESC #### [facility] CLIA [id number] [address] [place] [address] [place] AMERICAMPA RESULTM protein is present.AbnormalNo M protein is identified.[facility] on above:Order Comment: Specimen Type: BLOOD SPECIMEN Ordering Facility: [facility] Address: [address] [place], [place] [address]Performed By: #### 2885-2, [id number], IFESC #### [facility] CLIA [id number] [address] [facility] [address] [address] [place] OF AMERICASTAFF REVIEW ([facility])Reviewed by Stuart Cordoba MD, Ph.D ([id number])[facility] on above:Order Comment: Specimen Type: BLOOD SPECIMEN Ordering Facility: [facility] Address: [address] [place] [address]Performed By: #### 2885-2, [id number], IFMISSION [facility]ER[facility] #### [facility] CLIA [id number] [address] [place] [id number] [place] OF AMERICAIMMUNOGLOBULINS GAMon 55-29-6505JmI [Mass/Vol]213 mg/aYQludws63-909KusmdsrneCherrington Hospital on above:Order Comment: Specimen Type: BLOOD SPECIMEN Ordering Facility: [facility] Address: [address] [place] [address]Performed By: #### SERIMM #### [facility] CLIA [id number] [address] [place] [address] [place] OF AMERICAIgG [Mass/Vol]1267 mg/dL Cjfpxv754-2,600[facility] on above:Order Comment: Specimen Type: BLOOD SPECIMEN Ordering Facility: [facility] Address: [address] [place] [phone] By: #### SERIMM #### [facility] CLIA [id number] [address] [address] [place] OF AMERICAIgM [Mass/Vol]87 mg/dLNormal 40-230[facility] on above:Order Comment: Specimen Type: BLOOD SPECIMEN Ordering Facility: [facility] Address: [address] [place] [address]Performed By: #### SERIMM #### [facility] CLIA [id number] [address] [place] [address] [place] OF AMERICAKAPPA/WADDELL,FREE,SERon 66-71-8435Zyytkuzjfcgedr light chains.kappa.free (S) [Mass/Vol]24.6 mg/LHigh 3.3-19.4CHolzer Health SystemComment on above:Order Comment: Specimen Type: BLOOD SPECIMEN Ordering Facility: [facility] Address: [address] [place], [place] [address]Performed By: #### 27342-0 #### [facility] CLIA [id number] [address] [place] [address] [place] AMERICAImmunoglobulin light chains.kappa/Immunoglobulin light chains.lambda (S) [Mass ratio]0.16Low0.26-1.65 [facility] on above:Order Comment: Specimen Type: BLOOD SPECIMEN Ordering Facility: [facility] Address: [address] [place], [place] [address]Performed By: #### 97101-3 #### [facility] CLIA [id number] [address] [place] [address] [place] AMERICAImmunoglobulin light chains.lambda.free [Mass/Vol]149.8 mg/LHigh5.7-26.3CHolzer Health System Comment on above:Order Comment: Specimen Type: BLOOD SPECIMEN Ordering Facility: [facility] Address: [address] [place], [place] [address]Performed By: #### 03863-3 #### [facility] CLIA [id number] [address] [place] [address] [place] AMERICALD LACTATE DEHYDROon 86-12-6212OKX [Catalytic activity/Vol]166 U/L135 - 225 U/LCSycamore Medical CenterLD SerPl-cCncon 56-04-2209AUC [Catalytic activity/Vol]166 U/KLkuyzt811-007JzyyffwisAvita Health SystemCommemorial healthcare on above:Order Comment: Specimen Type: BLOOD SPECIMEN Ordering Facility: [facility] Address: [address] [place], [place] [address]Performed By: #### 15599-7 #### [facility] CLIA [id number] [address] [place] [address] UNITED [facility] OF AMERICAPROTEIN ELECTROPHORESIS SERUM (P)on 35-10-1613Ihlbwqq [Mass/Vol]3.99 g/dLNormal3.37-4.23[facility] on above:Order Comment: Specimen Type: BLOOD SPECIMEN Ordering Facility: [facility] Address: [address] [place], [place] [address]Performed By: #### 2885-2, [id number], IFESC #### [facility] CLIA [id number] [address] [place] [address] STATES OF AMERICAAlpha 1 globulin Elph [Mass/Vol]0.27 g/dLNormal0.18-0.31[facility] on above: Order Comment: Specimen Type: BLOOD SPECIMEN Ordering Facility: [facility] Address: [address] [place], [place] [address]Performed By: #### 2885-2, [id number], IFES #### [facility] CLIA [id number] [address] [place] [address] STATES OF AMERICAAlpha 2 globulin Elph [Mass/Vol]0.79 g/dLNormal0.52-0.97[facility] on above: Order Comment: Specimen Type: BLOOD SPECIMEN Ordering Facility: [facility] Address: [address] [place] [address]Performed By: #### 2885-2, [id number], IFES #### [facility] CLIA [id number] [address] [place] [address] [place] AMERICABeta globulin Elph [Mass/Vol]1.16 g/dLNormal0.84-1.36[facility] on above: Order Comment: Specimen Type: BLOOD SPECIMEN Ordering Facility: [facility] Address: [address] [place], [place] [address]Performed By: #### 2885-2, [id number], IFESC #### [facility] CLIA [id number] [address] [place] [address] [place] AMERICAGamma globulin Elph (Body fld) [Mass fraction]1.39 g/dLNormal0.70-1.44Avita Health SystemComment on above:Order Comment: Specimen Type: BLOOD SPECIMEN Ordering Facility: [facility] Address: [address] [place], [place] [address]Performed By: #### 2885-2, [id number], IFESC #### [facility] CLIA [id number] [address] [place] [address] [place] AMERICAINTERPRETATION COMMENT FOR PROTEIN ELECTROPHORESISSee separate immunofixation report for characterization of monoclonal gammopathy.NormalAvita Health SystemComment on above:Order Comment: Specimen Type: BLOOD SPECIMEN Ordering Facility: [facility] Address: [address] [place], [place] [address]Performed By: #### 2885-2, [id number], IFESC #### [facility] CLIA [id number] [address] [place] [address] [place] AMERICAM-PROTEIN LOCATIONGamma Fraction 1NormalAvita Health SystemCommemorial healthcare on above:Order Comment: Specimen Type: BLOOD SPECIMEN Ordering Facility: [facility] Address: [address] [place], [place] [address]Performed By: #### 2885-2, [id number], IFESC #### [facility] CLIA [id number] [address] [place] [address] [place] AMERICAProtein Fractions [Interp]An M protein is identified on protein electrophoresis.AbnormalNo definitive M protein is identified on protein electrophoresis.[facility] Comment on above:Order Comment: Specimen Type: BLOOD SPECIMEN Ordering Facility: [facility] Address: [address] [place], [place] [address]Performed By: #### 2885-2, [id number], IFESC #### [facility] CLIA [id number] [address] [place] [address] [place] AMERICAProtein.monoclonal Elph [Mass/Vol]0.66 g/dLHigh<=0.00[facility] on above:Order Comment: Specimen Type: BLOOD SPECIMEN Ordering Facility: [facility] Address: [address] [place], [place] [address]Performed By: #### 2885-2, [id number], IFESC #### [facility] CLIA [id number] [address] [place] [address] OF PARKWOOD HOSPITALSPE STAFF REVIEWReviewed by Stuart Cordoba MD, Ph.D ([id number])NormalCherrington Hospital on above:Order Comment: Specimen Type: BLOOD SPECIMEN Ordering Facility: [facility] Address: [address] [place], [place] [address]Performed By: #### 2885-2, [id number], IFESC #### [facility] CLIA [id number] [address] [place] [address] STATES OF AMERICAProt SerPl-mCncon 07-02-2021 Protein [Mass/Vol]7.0 g/dLNormal6.3-8.0[facility] on above:Order Comment: Specimen Type: BLOOD SPECIMEN Ordering Facility: [facility] Address: [address] [place] [address]Performed By: #### 2885-2, [id number], IFESC #### [facility] CLIA [id number] [address] [place] [address] [place] OF AMERICARETIC COUNTon 07-02-2021 Reticulocytes (Bld) [#/Vol]0.64241 10*3/uL0.018 - 0.100 M/uLWood County Hospital Retics #on 02-98-1456Vjuaguocqczhn (Bld) [#/Vol]0.08933 10*3/uLNormal0.018-0.100 [facility] on above:Order Comment: Specimen Type: BLOOD SPECIMEN Ordering Facility: [facility] Address: [address] [place], [place] [address]Performed By: #### 96740-3, 03327-8 #### [facility] CLIA [id number] [address] [place] [address]Fmnzeghckqdwl (Bld) [#/Vol]on 94-00-3661Xokcelpljnbfl/100 RBC (Bld)0.8 %Normal0.4-2.0[facility] on above:Order Comment: Specimen Type: BLOOD SPECIMEN Ordering Facility: [facility] Address: [address] [place], [place] [address]Performed By: #### 54840-9, 24893-1 #### [facility] CLIA [id number] [address] [place] [address]Jqmdeucakuzjn/100 RBC (Bld)0.8 %0.4 - 2.0 %[facility] SerPl-aCncon 51-83-3229AKR Qn6.160 m[IU]/LHigh0.270-4.200[facility] on above:Order Comment: Specimen Type: BLOOD SPECIMEN Ordering Facility: [facility] Address: [address] [place], [place] [address]Performed By: #### 1987-07, B12, 4541-09, 3 #### [facility] CLIA [id number] [address] [place] [address] [place] [address] [place] AMERICAVITAMIN B12 BLOODon 93-56-2684Ejqfvapsv (Vitamin B12) [Mass/Vol]663 pg/eDRpdgwi318-0,245[facility] on above:Order Comment: Specimen Type: BLOOD SPECIMEN Ordering Facility: [facility] Address: [address] [place], [place] [address]Performed By: #### 1987-07, B12, 4541-09, 3 #### [facility] CLIA [id number] [address] [place] [address] [place] PARKWOOD HOSPITALC-Reactive ProteinOrdered By: Wing Álvarez on 74-35-8130KKZ [Mass/Vol]7.8 mg/LHigh0.0 - 5.0 mg/LMercy Health Work Phone: Interpretation and review of laboratory results AbnormalMerDealised Work Phone: c3 ComplementOrdered By: Wing Álvarez on 12-14-2020 Complement C3145 mg/dL90 - 180 mg/dLMerDealised Work Phone: c4 ComplementOrdered By: Wing Álvarez on 12-14-2020 Complement C431 mg/dL10 - 40 mg/dLThe Bellevue HospitalDealised Work Phone: comprehensive Metabolic PanelOrdered By: Wing Álvarez on 38-17-4059Axiqfry [Mass/Vol]3.8 g/dL3.5 - 5.2 g/dLThe Bellevue HospitalDealised Work Phone: albumin/Globulin RatioNOT REPORTEDMerDealised Work Phone: aLP (Bld) [Catalytic activity/Vol]117 U/L40 - 129 U/L [facility] [employer] Work Phone: aLT [Catalytic activity/Vol]12 U/L5 - 41 U/LMercy Health Work Phone: anion gap [Moles/Vol]9 mmol/L9 - 17 mmol/LMercy Health Work Phone: aST [Catalytic activity/Vol]17 U/L<40MerDealised Work Phone: bilirubin [Mass/Vol]0.47 mg/dL0.30 - 1.20 mg/dLThe Bellevue HospitalDealised Work Phone: calcium [Mass/Vol]9.3 mg/dL8.6 - 10.4 mg/dLThe Bellevue HospitalDealised Work Phone: chloride [Moles/Vol]102 mmol/L98 - 107 mmol/LMercy [employer] Work Phone: cO2 [Moles/Vol]24 mmol/L20 - 31 mmol/LMmansfield hospitaly [employer] Work Phone: creatinine [Mass/Vol]1.08 mg/dL0.70 - 1.20 mg/dLThe Bellevue HospitalMir Tesen Phone: Free PSA/Total PSA [Mass fraction]7.0 g/dL6.4 - 8.3 g/dLThe Bellevue HospitalMir Tesen Phone: GFR >60>60 mL/minThe Bellevue HospitalMir Tesen Phone: GFR Non->60>60 mL/minThe Bellevue HospitalMir Tesen Phone: GFR/1.73 sq M.predicted MDRD (S/P/Bld) [Vol rate/Area] [facility] [employer] Work Phone: comment on above:Average GFR for 70 or more years old: 75 mL/min/1.73sq m Chronic Kidney Disease: <60 mL/min/1.73sq m Kidney failure: <15 mL/min/1.73sq m eGFR calculated using average adult body mass. Additional eGFR calculator available at: http://www.MiName.IndianRoots/multiple_crcl_2012.htm GFR/1.73 sq M.predicted MDRD (S/P/Bld) [Vol rate/Area]NOT REPORTEDThe Bellevue HospitalMir Tesen Phone: Glucose [Mass/Vol]114 mg/xWBuak61 - 99 mg/dLThe Bellevue HospitalMir Tesen Phone: Interpretation and review of laboratory results AbnormalThe Bellevue HospitalMir Tesen Phone: potassium [Moles/Vol]3.8 mmol/L3.7 - 5.3 mmol/LMmansfield hospitaly [employer] Work Phone: sodium [Moles/Vol]135 mmol/L135 - 144 mmol/LMercy [employer] Work Phone: Urea nitrogen (BldV) [Mass/Vol]22 mg/dL8 - 23 mg/dL [facility] HospitalPeople Operating Technology Phone: Urea nitrogen/Creatinine (Bld) [Mass ratio]20The [facility] HospitalMir Tesen Phone: The [facility] HospitalMir Tesen Phone: FerritinOrdered By: Wing Álvarez on 33-60-7226Havyjoug 40 ug/L30 - 400 ug/LMmansfield hospitaly [employer] Work Phone: Iron and TIBCOrdered By: Wing Álvarez on 12-14-2020 Interpretation and review of laboratory resultsAbnormalThe [facility]vue HospitalMir Tesen Phone: Iron [Mass/Vol]48 ug/dLLow59 - 158 ug/dLThe Bellevue HospitalMir Tesen Phone: Iron Qblmgeuisy57 %Low20 - 55 %[facility] HospitalmyContactCard Work Phone: TIBC374 ug/dL250 - 450 ug/dLThe Bellevue HospitalMir Tesen Phone: UIBC326 ug/dL112 - 347 ug/dLThe Bellevue HospitalMir Tesen Phone: No Panel InformationOrdered By: Wing Álvarez on 30-36-0301[facility] Work Phone: [facility] HospitalMir Tesen Phone: protein / creatinine ratio, urineOrdered By: Wing Álvarez on 36-54-2861Utdiiztbrv, Ur22.0 mg/dLLow39.0 - 259.0 mg/dLThe Bellevue HospitalMir Tesen Phone: Interpretation and review of laboratory results AbnormalThe [facility]vue HospitalMir Tesen Phone: Total Protein, Urine<4mg/dLThe Bellevue HospitalMir Tesen Phone: comment on above:No normal range established.Urine Total Protein Creatinine RatioCANNOT BE CALCULATEDThe Bellevue HospitalMir Tesen Phone: [facility] Work Phone: sedimentation RateOrdered By: Wing Álvarez on 27-68-3163Etrmfqdtnehlvx and review of laboratory resultsAbnormalMercy Health Work Phone: sed Rate45 mmHigh0 - 20 mmMercy Health Work Phone: [facility] Work Phone: Urinalysis Reflex to CultureOrdered By: Wing Álvarez on 58-28-3214Qxhgalcfw UrineNegativeNEGATIVEMercy Health Work Phone: color, UAYELLOWYELLOWMercy Health Work Phone: Glucose, UrNegativeNEGATIVEMercy Health Work Phone: Ketones Ql (U)NegativeNEGATIVEMer Health Work Phone: leukocyte esterase Test strip Ql (U)NegativeNEGATIVE [facility] Work Phone: Nitrite, UrineNegativeNEGATIVEMercy Health Work Phone: pH, UA5.0[facility] Work Phone: protein, UANegativeNEGATIVEMercy Health Work Phone: specific [place], UA1.010[facility] Work Phone: Turbidity UACLEARCLEARMercy Health Work Phone: Urinalysis CommentsMercy Health Work Phone: Urine HgbNegativeNEGATIVEMercy Health Work Phone: Urobilinogen, UrineNormalNormalMercy Health Work Phone: [facility] Work Phone: Vitamin B12 & FolateOrdered By: Wing Álvarez on [id number] (Vitamin B12) [Mass/Vol]656 pg/mL232 - 1245 pg/mLMercy Health Work Phone: Folate13.9 ng/mL>4.8[facility] Phone: [facility] Phone: brain Natriuretic PeptideOrdered By: Pamela Montoya on 84-76-8811NIO InterpretationPro-BNP Reference Range:Peer5 Phone: comment on above: Rule Out: <300 [place] Zone: Age <50 300-450 Age 50-75 300-900 Age >75 300-1800 Usually represents mild to moderate HF but other cardiopulmonary causes cannot be ruled out. Rule In: Age <50 >450 Age 50-75 >900 Age >75 >1800 Natriuretic peptide B (Bld) [Mass/Vol]3270 pg/mLHigh<300The [facility] Phone: comment on above:Pro-BNP results cannot be compared to BNP results.CBC Auto DifferentialOrdered By: Pamela Montoya on 10-27-9756Ljydboxl Eos #0.20[facility] Phone: absolute Immature GranulocyteNOT REPORTEDThe [facility] HospitalMir [facility] Phone: absolute Lymph #1.20[facility] Phone: absolute Thayer #0.80[facility] Phone: basophils (Bld) [#/Vol]0.00 10*3/uLThe [facility]Mir [facility] Phone: basophils/100 WBC (Bld)1 %0 - 2 %Peer5 Phone: differential TypeYESMercPeople Operating Technology Phone: eosinophils/100 WBC (Bld)3 %0 - 5 %Peer5 Phone: Hematocrit (Bld) [Volume fraction]31.1 %Low41 - 53 % Peer5 Phone: Hemoglobin.gastrointestinal spec 1 Ql (Stl)10.1 g/dL Low13.5 - 17.5 g/dLThe [facility] HospitalMir [facility] Phone: Immature GranulocytesNOT REPORTED0 %Peer5 Phone: Interpretation and review of laboratory results AbnormalThe [facility]Mir [facility] Phone: lymphocytes/100 WBC (Bld)17 %13 - 44 %Peer5 Phone: MCH (RBC) [Entitic mass]29.6 pg26 - 34 pgThe Bellevue HospitalMir [facility]en Phone: MCHC (RBC) [Mass/Vol]32.6 g/dL31 - 37 g/dLThe [facility]Mir [facility] Phone: MCV (RBC) [Entitic vol]90.8 fL80 - 100 Pre[employer]Me Phone: Monocytes/100 WBC (Bld)12 %High5 - 9 %Peer5 Phone: NRBC AutomatedNOT REPORTEDper 100 WBCThe [facility]vue HospitalMir [facility] Phone: platelet distribution width (Bld) [Ratio]14.4 %12.1 - 15.2 %Peer5 Phone: platelet EstimateNOT REPORTEDThe [facility] Phone: platelet mean volume (Bld) [Entitic vol]NOT REPORTED 6.0 - 12.0 fLThe Bellevue HospitalMir [facility]en Phone: Tlatelets (Bld) [#/Vol]259 10*3/uLPeer5 Phone: RBC (Bld) [#/Vol]3.43 10*6/uLLow4.5 - 5.9 m/Feedsky Phone: RBC (Bld) [#/Vol]NOT REPORTEDThe [facility]Mir [facility] Phone: segmented neutrophils/100 WBC (Bld)67 %39 - 75 %Peer5 Phone: Iegs Absolute4.80[facility]al[facility] Work Phone: WBC (Bld) [#/Vol]7.1 10*3/uLThe [facility] HospitalDealised Work Phone: WBC (Bld) [#/Vol]NOT REPORTEDThe [facility] HospitalDealised Work Phone: [facility] Work Phone: comprehensive Metabolic Panel w/ Reflex to MGOrdered By: Pamela Montoya on 82-92-0747Easplvy [Mass/Vol]3.6 g/dL3.5 - 5.2 g/dLThe [facility] HospitalDealised Work Phone: Slbumin/Globulin RatioNOT REPORTEDMerDealised Work Phone: KLP (Bld) [Catalytic activity/Vol]131 U/LHigh40 - 129 U/LMercy [employer] Work Phone: PLT [Catalytic activity/Vol]14 U/L5 - 41 U/LMercy [employer] Work Phone: Knion gap [Moles/Vol]8 mmol/LLow9 - 17 mmol/LMercy [employer] Work Phone: AST [Catalytic activity/Vol]19 U/L<40Mer [employer] Work Phone: Hilirubin [Mass/Vol]0.31 mg/dL0.30 - 1.20 mg/dLThe [facility] HospitalDealised Work Phone: Jalcium [Mass/Vol]9.1 mg/dL8.6 - 10.4 mg/dLThe [facility] HospitalDeal[facility] Work Phone: Phloride [Moles/Vol]105 mmol/L98 - 107 mmol/LMercy [employer] Work Phone: ZO2 [Moles/Vol]23 mmol/L20 - 31 mmol/LMercy Health Work Phone: Mreatinine [Mass/Vol]0.88 mg/dL0.70 - 1.20 mg/dLPeer5 Phone: Free PSA/Total PSA [Mass fraction]6.9 g/dL6.4 - 8.3 g/dLThe [facility]Mir [facility] Phone: GFR >60>60 mL/minThe [facility]vue HospitalMir [facility] Phone: GFR Non->60>60 mL/minThe [facility]vue HospitalMir [facility] Phone: GFR/1.73 sq M.predicted MDRD (S/P/Bld) [Vol rate/Area] Peer5 Phone: comment on above:Average GFR for 70 or more years old: 75 mL/min/1.73sq m Chronic Kidney Disease: <60 mL/min/1.73sq m Kidney failure: <15 mL/min/1.73sq m eGFR calculated using average adult body mass. Additional eGFR calculator available at: http://www.[employer] [place]/Quoteroller_crcl_2012.htm GFR/1.73 sq M.predicted MDRD (S/P/Bld) [Vol rate/Area]NOT REPORTEDThe [facility] Phone: Glucose [Mass/Vol]109 mg/xAOjwk33 - 99 mg/dLThe [facility] HospitalMir [facility] Phone: potassium [Moles/Vol]4.1 mmol/L3.7 - 5.3 mmol/LMRock Control Phone: sodium [Moles/Vol]136 mmol/L135 - 144 mmol/LMGonnaBey writewith Phone: Urea nitrogen (BldV) [Mass/Vol]21 mg/dL8 - 23 mg/dL Peer5 Phone: Urea nitrogen/Creatinine (Bld) [Mass ratio]24HighThe [facility] HospitalMir [facility]en Phone: No Panel InformationOrdered By: Pamela Montoya on 90-16-8618Uliikqhabjkxhy and review of laboratory resultsAbnormalThe [facility] HospitalMir [facility] Phone: [facility] Phone: sedimentation RateOrdered By: Pamela Lindsay on 19-82-9269Yrondugssrfqas and review of laboratory resultsAbnormalThe [facility] HospitalMir [facility] Phone: sed Rate45 mmHigh0 - 20 mmThe [facility]vue HospitalMir [facility]en Phone: [facility] Phone: TroponinOrdered By: Pamela Montoya on 05-13-8769Sigqygza InterpNOT REPORTEDThe [facility]Mir [facility] Phone: Troponin TNOT REPORTED<0.03 ng/mLThe [facility] HospitalMir [facility] Phone: Troponin, High Kbbuzdnemas12 ng/L0 - 22 ng/LMthe [facility] hospital [facility] writewith Phone: comment on above: High Sensitivity Troponin [...] the major fissure most likely on the left.Peer5 Phone: eXAM: XR CHEST (2 VW) HISTORY: [...] left. Diaphragm and bony elements are inta ct.Peer5 Phone: edi, Mhpn Incoming Radiant Results From [employer] - 10/20/2020 5:39 PM EDT EXAM: XR [...] major fissure most likely on the left. Peer5 Phone: [facility] Phone: basic metabolic 2000 panelon 14-25-8402Bfretgs [Mass/Vol]8.9 mg/dLNormal8.5-10.6[facility] CampusChloride [Moles/Vol] 103 mmol/IOyejam05-098Lbfcw [facility] CampusCO2 [Moles/Vol]25 mmol/LNormal 21-32[facility] CampusCreatinine [Mass/Vol]0.92 mg/dLNormal0.70-1.30 [facility] CenterGlucose [Mass/Vol]101 mg/mBWyte31-34Zssic [facility] CampusPotassium [Moles/Vol]3.9 mmol/LNormal3.5-5.1[facility] Ohioodium [Moles/Vol]137 mmol/EHmlzsx571-503Ljdnp [facility] CampusUrea nitrogen (BldV) [Mass/Vol]13 mg/dLNormal7.0-18.0[facility] CampusUrea nitrogen/Creatinine [Mass ratio]14 mg/mgNormalMount [facility] Magnesium Levelon 07-83-1899Bxwpzcbtv [Mass/Vol]1.8 mg/dLNormal1.8-2.4Mount [facility] CampusPatient Summaryon 57-91-6156Mteciya SummaryPATIENT DISCHARGE INSTRUCTIONS If you are having an emergency and are not able to reach your physician, CALL 911 or go to the nearest emergency room and take this document with you. [facility] 08/17/20 13:08 [address] [place]. [address] PATIENT INFORMATION Name: BRET YAP Address: [address] [place] [id number] Age: 80 Years Phone: [phone] : 1940 12:00 MRN: [facility][id number] Sex: Male Race: White Ethnicity: Not Hispan/Lat Admitted From: Clinic or [facility] Medical Service: Orthopedic Surgery Nurse Unit/Bed: ([place]) 2N 0216-01 Admit Date: 08/14/2020 08:28 PCP: Aaron DE LA PAZ , Faizan Waite PHYSICIANS INVOLVED WITH CARE Attending Physicians: Norman Michelle MD - Orthopaedic Surg Admitting Physician: Norman Michelle MD - Orthopaedic Surg Primary Care Physician:Aaron DE LA PAZ , Faizan Waite,[facility], - Consults: Logan DE LA PAZ , Abdifatah - Internal Medicine Kimmie DE LA PAZ , Kamran Ingram - Internal Medicine Josh DE LA PAZ , Torrey Hernandez - Internal Medicine TAMAR Marin - Internal Medicine FOLLOW-UP APPOINTMENTS: Provider: Specialty: Address: Date: Faizan Bragg MD Family Practice [address] [facility] [address] (1) Follow-up as needed Provider: Specialty: Address: Date: Norman Michelle MD Orthopaedic Surg [address] [facility] [address] (1) 2 to 3 weeks Comment: [...] doses are changed, or new medications (including nkyq-acp-rgbzvbm products) are added. Ask your doctor if [...] Decisions Type: Living Will, Medical Power of Hotel Front Desk Agent Copy of Advance Directive/Health Care Decisions on Chart: Patient/Family asked to provide copy SUICIDE HOTLINE: Your mental and emotional well-being are important. If you are in a mental health crisis, or havingthoughts of suicide, please call the nationwide suicide hotline, anytime day or night, at 1-642-073-ARGH. It's easy to sign up for myHealth: 1. Visit [email or web address] 2. Click on [place] for myHealth 3. Verify your identity by entering you (more content not included)...Normal [facility] CenterXR Abdomen 1 Viewon 00-80-3704AC Abdomen Single view EXAMINATION TYPE: XR Abdomen [...] bowel most compatible with a persistent ileus. [place] thanks you for the opportunity to care for your patient. Workstation ID: [id number] - [id number] FINAL REPORT Dictated By: Abdoul Hung MD 08/17/2020 07:46 Assigned Physician: Abdoul Hung MD Reviewed and Electronically Signed By: Abdoul Hung MD 08/17/2020 07:47 Transcribed by: SINDI 08/17/2020 07:46 Technologist: Carmelo [facility] CampusBasic metabolic 2000 panelon 35-50-2089Igaveok [Mass/Vol]8.7 mg/dLNormal8.5-10.6[facility] Chloride [Moles/Vol]104 mmol/OExfeko91-602Mccus [facility] CampusCO2 [Moles/Vol]27 mmol/DKftqrs96-12Taxok [facility] CampusCreatinine [Mass/Vol] 0.95 mg/dLNormal0.70-1.30[facility] CampusGlucose [Mass/Vol]100 mg/dL Kuyw98-45Topxz [facility] CampusPotassium [Moles/Vol]3.9 mmol/LNormal3.5-5.[address] [facility] Hospitalodium [Moles/Vol]138 mmol/MCpjsak469-534Ekwbq [facility] CampusUrea nitrogen (BldV) [Mass/Vol]21 mg/dLHigh7.0-18.0[facility] CampusUrea nitrogen/Creatinine [Mass ratio]22 mg/mgNormalMount [facility] CampusCBC W Auto Differential panel (Bld)on 06-87-3097Uetbdelbh (Bld) [#/Vol]0.1 thou/mcLNormal0.0-0.2[facility] CampusBasophils/100 WBC (Bld)0.4 %Normal0-3[facility] CampusDifferential cell count method Nom (Bld)AUTOMATED DIFFERENTIALNormalMount [facility] CampusEosinophils (Bld) [#/Vol]0.0 thou/mcLNormal0.0-0.4[facility] CampusEosinophils/100 WBC (Bld)0.2 %Normal0-7[facility] CampusErythrocyte distribution width (RBC) [Entitic vol]13.8 %Cxxidk03.7-15.0[facility] CampusHematocrit (Bld) [Volume fraction]33.1 %Low34.0-50.0[facility] CampusHemoglobin (Bld) [Mass/Vol]11.0 g/dLLow11.5-17.0[facility] CampusLymphocytes (Bld) [#/Vol]1.3 thou/mcLNormal0.7-4.5[facility] CampusLymphocytes/100 WBC (Bld)11.6 %Uaa95-80Gxroa [facility] CenterH (RBC) [Entitic mass]31.5 FyqptggdvWrjdda53.0-34.0[facility] CenterHC (RBC) [Mass/Vol]33.3 g/dL Jpwkdz80.0-36.0[facility] CampusMCV (RBC) [Entitic vol]94.8 fLNormal 80-98[facility] CampusMonocytes (Bld) [#/Vol]1.4 thou/mcLHigh0.1-1.0 [facility] CenterMonocytes/100 WBC (Bld)12.3 %Normal4-13[facility] CampusNeutrophils (Bld) [#/Vol]8.6 thou/mcLHigh1.5-7.8[facility] CampusNeutrophils/100 WBC (Bld)75.5 %Vgej94-09Pposw [facility] Platelet mean volume (Bld) [Entitic vol]8.1 fLNormal7.5-11.2[facility] CampusPlatelets (Bld) [#/Vol]183 thou/ffYMyxddw026-546Ikyuo [facility] RBC (Bld) [#/Vol]3.50 x(10)6/mcLLow3.80-5.60[facility] CampusWBC (Bld) [#/Vol]11.4 thou/mcLHigh4.0-10.5[facility] CampusMagnesium Levelon 23-64-5729Zfquksliw [Mass/Vol]1.9 mg/dLNormal1.8-2.4[facility] CampusXR Abdomen 1 Viewon 91-26-6560DB Abdomen Single viewEXAMINATION TYPE: XR Abdomen 1 [...] ileocecal valve; 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 [place] thanks you for the opportunity to care for your patient. Workstation ID: [id number] - [id number] FINAL REPORT Dictated By: Gary Calderón MD 08/16/2020 08:13 Assigned Physician: Gary Calderón MD Reviewed and Electronically Signed By: Gary Calderón MD 08/16/2020 08:16 Transcribed by: SINDI 08/16/2020 08:13 Technologist: Carmelo [facility] CampusBasic metabolic 2000 panelon 44-22-1785Nutpxvm [Mass/Vol]8.9 mg/dLNormal8.5-10.6[facility] Chloride [Moles/Vol]100 mmol/SKkuxte30-525Yhybm [facility] CampusCO2 [Moles/Vol]23 mmol/XRtsnov63-31Tpash [facility] CampusCreatinine [Mass/Vol] 1.01 mg/dLNormal0.70-1.30[facility] CampusGlucose [Mass/Vol]160 mg/dL Auym28-68Ugscj [facility] CampusPotassium [Moles/Vol]4.7 mmol/LNormal3.5-5.[address] Charles Hospitalodium [Moles/Vol]132 mmol/COmn016-087Bughs [facility] CampusUrea nitrogen (BldV) [Mass/Vol]21 mg/dLHigh7.0-18.0[facility] CampusUrea nitrogen/Creatinine [Mass ratio]21 mg/mgNormalMount [facility] W Auto Differential panel (Bld)on 75-72-3779Eomsywpqa (Bld) [#/Vol]0.0 thou/mcLNormal0.0-0.2[facility] CampusBasophils/100 WBC (Bld)0.4 %Normal0-3[facility] CampusDifferential cell count method Nom (Bld)AUTOMATED DIFFERENTIALNormalMoCorey HospitalEosinophils (Bld) [#/Vol]0.0 thou/mcLNormal0.0-0.4[facility] CampusEosinophils/100 WBC (Bld)0.0 %Normal0-7Mount [facility] CampusErythrocyte distribution width (RBC) [Entitic vol]13.2 %Jpbtsy52.7-15.0[facility] CampusHematocrit (Bld) [Volume fraction]37.2 %Yjzquj46.0-50.0[facility] CampusHemoglobin (Bld) [Mass/Vol]12.5 g/eTSsndue00.5-17.0[facility] CampusLymphocytes (Bld) [#/Vol]0.7 thou/mcLNormal0.7-4.5[facility] CampusLymphocytes/100 WBC (Bld)6.4 %Cnc06-29Jbfkn [facility] CenterH (RBC) [Entitic mass]31.4 GatoywuiiYebupk78.0-34.0[facility] CenterHC (RBC) [Mass/Vol]33.5 g/dL Oauuow32.0-36.0[facility] CampusMCV (RBC) [Entitic vol]93.7 fLNormal 80-98Mount [facility] CampusMonocytes (Bld) [#/Vol]0.7 thou/mcLNormal0.1-1.0 [place] JunctionKettering Health Main CampusMonocytes/100 WBC (Bld)6.6 %Normal4-13Mount [facility] CampusNeutrophils (Bld) [#/Vol]9.8 thou/mcLHigh1.5-7.8Mount [facility] CampusNeutrophils/100 WBC (Bld)86.6 %Mooq75-22Kpupk [facility] Platelet mean volume (Bld) [Entitic vol]8.3 fLNormal7.5-11.2Mount [facility] CampusPlatelets (Bld) [#/Vol]220 thou/yjQXyvznk281-114Zoumh [facility] RBC (Bld) [#/Vol]3.97 x(10)6/mcLNormal3.80-5.60Mount [facility] CampusWBC (Bld) [#/Vol]11.3 thou/mcLHigh4.0-10.5Mount [facility] CampusOR Nursingon 38-11-3213FV NursingCO NA OR Nursing Record Summary Primary Physician: Norman Michelle MD Finalized Date/Time: 08/15/20 08:39:15 Pt. Name: BRET YAP/Sex: 1940 Male Med Rec #: [id number] Physician: Norman Michelle MD Financial #: [id number] Pt. 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 Time In 08/14/20 11:15:00 08/14/20 11:34:00 Time Out 08/14/20 14:02:00 08/14/20 14:02:00 Procedure Fusion Lumbar Fusion Lumbar Posterior(Lumbar) Posterior(Lumbar) Attendee Comment Relief Reason Last Modified By: Geraldo Edmond RN, RN, Andrew M 08/14/20 14:02:15 08/14/20 14:02:15 CO NA OR General Case 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 No 5ML BALLOON LUBRI-DIANE LF [id number] Location URETHRA / BLADDER Inserted By Geraldo Edmond RN, DC'gabriel at End of Case? No Last Modified [...] N/A = 0 Procedu (more content not included)...[facility] I Nursingon 23-73-8439HYHU I NursingCO NA PACU I Nursing Record Summary Primary Physician: Norman Michelle MD Finalized Date/Time: 08/15/20 08:37:13 Pt. Name: MARELYBRET/Sex: 1940 Male Med Rec #: [id number] Physician: Norman Michelle MD Financial #: [id number] Pt. Type: I Room/Bed: Admit/Disch: 08/14/20 08:28:00 - Institution: [place] NA OR Main PACU I Case Times [...] Signatures Signed By: Emily Bear RN 08/15/20 08:37[facility] CenterXR Abdomen 1 Viewon 97-23-4753BP Abdomen Single viewEXAMINATION TYPE: XR Abdomen 1 [...] finding communication initiated and documented in the [employer] system on 08/15/2020 4:47 PM, Message ID [id number]. [place] thanks you for the opportunity to care for your patient. Workstation ID: [id number] - [id number] FINAL REPORT Dictated By: Emir Reeves MD 08/15/2020 16:45 Assigned Physician: Emir Reeves MD Reviewed and Electronically Signed By: Emir Reeves MD 08/15/2020 16:47 Transcribed by: SINDI 08/15/2020 16:45 Technologist: NIMAMetroHealth Cleveland Heights Medical CenterComment on above:Order Comment: Call GEN Med Doc with Results of KUB\.br\Attention to Cecal DiameterBasic metabolic 2000 panelon 26-16-0801Xiazudi [Mass/Vol]9.7 mg/dLNormal8.5-10.6Mount [facility] Main CampusChloride [Moles/Vol]104 mmol/RDoxmnm95-385Yufeo [facility] CampusCO2 [Moles/Vol]26 mmol/MPfpmpd76-40Pzsqq [facility] Creatinine [Mass/Vol]1.03 mg/dLNormal0.70-1.30Mount [facility] CampusGlucose [Mass/Vol]87 mg/qILfkjjb11-60Glnes [facility] CampusPotassium [Moles/Vol]4.2 mmol/LNormal3.5-5.1[facility] Ohioodium [Moles/Vol]139 mmol/LNormal 136-145Mount [facility] CampusUrea nitrogen (BldV) [Mass/Vol]24 mg/dLHigh 7.0-18.0Mount [facility] CampusUrea nitrogen/Creatinine [Mass ratio]23 mg/mg NormalMount [facility] CampusBlood type and Indirect antibody screen panel (Bld)on 91-69-4852Qnrtn group antibody screen QlNegativeNormalNEGMoCorey HospitalRh Nom (Bld)NegativeNormalMoCorey HospitalPreOp Nursingon 86-77-4148ZdhOf NursingCO NA PreOp Nursing Record Summary Primary Physician: Norman Michelle MD Finalized Date/Time: 08/14/20 11:16:44 Pt. Name: BRET YAP RONNELL /Sex: 1940 Male Med Rec #: [id number] Physician: Norman Michelle MD Financial #: [id number] Pt. Type: I Room/Bed: / Admit/Disch: 08/14/20 [...] Signatures Signed By: Geraldo Edmond RN 08/14/20 11:16NormalAdams County Regional Medical CenterCOVID-19, RapidOrdered By: Faizan Bragg on 30-52-9748KXFT-CoV-2 (COVID-19) RNA NAY+probe Ql (Unsp spec)Not detectedNot DetectedThe [facility] HospitalMir [facility]en Phone: comment on above: Rapid NAAT: The [...] management decisions. Fact sheet for Healthcare Providers: https://www.fda.gov/media/998081/download Fact sheet for Patients: https://www.fda.gov/media/669622/download Methodology: Isothermal Nucleic Acid Amplification Specimen Description.NASOPHARYNGEAL SWABThe [facility] HospitalMir [facility] Phone: basic Metabolic PanelOrdered By: Torrey Griggs on 87-66-3215Omrle gap [Moles/Vol]9 mmol/L9 - 17 mmol/LMercy [employer] Work Phone: calcium [Mass/Vol]9.2 mg/dL8.6 - 10.4 mg/dLThe [facility]Mir [facility] Phone: chloride [Moles/Vol]104 mmol/L98 - 107 mmol/LMercy [employer] Work Phone: TO2 [Moles/Vol]24 mmol/L20 - 31 mmol/LMGonnaBey [employer] Work Phone: creatinine [Mass/Vol]1.13 mg/dL0.70 - 1.20 mg/dLThe [facility]Mir [facility] Phone: GFR >60>60 mL/minThe [facility] HospitalMir [facility] Phone: GFR Non->60>60 mL/minThe [facility] HospitalMir [facility] Phone: GFR/1.73 sq M.predicted MDRD (S/P/Bld) [Vol rate/Area] Peer5 Phone: comment on above:Average GFR for 70 or more years old: 75 mL/min/1.73sq m Chronic Kidney Disease: <60 mL/min/1.73sq m Kidney failure: <15 mL/min/1.73sq m eGFR calculated using average adult body mass. Additional eGFR calculator available at: http://www.[employer] [place]/Quoteroller_crcl_2012.htm GFR/1.73 sq M.predicted MDRD (S/P/Bld) [Vol rate/Area]NOT REPORTEDThe [facility]Mir [facility] Phone: Glucose [Mass/Vol]96 mg/dL70 - 99 mg/dLThe [facility] HospitalMir [facility] Phone: potassium [Moles/Vol]4.3 mmol/L3.7 - 5.3 mmol/LMRock Control Phone: sodium [Moles/Vol]137 mmol/L135 - 144 mmol/LMRock Control Phone: Urea nitrogen (BldV) [Mass/Vol]23 mg/dL8 - 23 mg/dL Peer5 Phone: Urea nitrogen/Creatinine (Bld) [Mass ratio]20The [facility] Phone: XR CHEST (2 VW)Ordered By: Wing Álvarez on 07-27-2020 Chronic changes. Hiatal hernia. Review of the prior report from 12/21/[address] [facility] [address] chest notes a recommendation to followup an 8 mm nodule in the right middle lobe with a CT chest in 3 months from that original study.Peer5 Phone: eXAM: XR CHEST (2 VW) HISTORY: Reason for exam:- >abnormal ekg COMPARISON: CT chest [facility] 12/20/2009. TECHNIQUE: Two views chest. FINDINGS: Granulomatous changes and scarring are similaralong with likely chronic blunting of the costophrenic angles. Heart size upper normal. Moderate-sized hiatal hernia. Chronic compression upper thoracic vertebral body. Peer5 Phone: edi, [facility] Incoming Radiant Results From [employer] - 07/27/2020 10:49 AM EDT EXAM: XR CHEST (2 VW) HISTORY: Reason for exam:->abnormal ekg COMPARISON: CT chest [facility] 12/20/2009. TECHNIQUE: Two views chest. FINDINGS: Granulomatous changes and scarring are similar along with likely chronic blunting of the costophrenic angles. Heart size upper normal. Moderate-sized hiatal hernia. Chronic compression upper thoracic vertebral body. IMPRESSION: Chronic changes. Hiatal hernia. Review of the prior report from 12/21/[address] [facility] [address] chest notes a recommendation to followup an 8 mm nodule in the right middle lobe with a CT chest in 3 months from that original study. Peer5 Phone: blood type and Indirect antibody screen panel (Bld)on 00-44-1919Hjbzd group antibody screen QlNegativeNormalNEGMount [facility] Main CampusRh Nom (Bld)NegativeNormalMount [facility] CampusCBC W Auto Differential panel (Bld)on 50-67-5150Tvzrxzrtm (Bld) [#/Vol]0.1 thou/mcLNormal 0.0-0.2Mount [facility] CampusBasophils/100 WBC (Bld)1.1 %Normal0-3Mount [facility] CampusDifferential cell count method Nom (Bld)AUTOMATED DIFFERENTIALNormalMount [facility] CampusEosinophils (Bld) [#/Vol]0.1 thou/mcLNormal0.0-0.4Mount [facility] CampusEosinophils/100 WBC (Bld)1.3 % Normal0-7Mount [facility] CampusErythrocyte distribution width (RBC) [Entitic vol]13.9 %Evtxum80.7-15.0[facility] CampusHematocrit (Bld) [Volume fraction]39.5 %Yfjlkn86.0-50.0[facility] CampusHemoglobin (Bld) [Mass/Vol]13.2 g/pBDrzznx27.5-17.0[facility] CampusLymphocytes (Bld) [#/Vol]1.2 thou/mcLNormal0.7-4.5Mount [facility] CampusLymphocytes/100 WBC (Bld)17.6 %Ycgejj58-61Axxck [facility] CampusMCH (RBC) [Entitic mass]31.6 GjgpenbynVilrfb70.0-34.0[facility] Main CampusMCHC (RBC) [Mass/Vol]33.3 g/dL Safgvj44.0-36.0[facility] CampusMCV (RBC) [Entitic vol]94.8 fLNormal 80-98Mount [facility] CampusMonocytes (Bld) [#/Vol]0.8 thou/mcLNormal0.1-1.0 [facility] CenterMonocytes/100 WBC (Bld)12.4 %Normal4-13Mount [facility] CampusNeutrophils (Bld) [#/Vol]4.6 thou/mcLNormal1.5-7.8Mount [facility] CampusNeutrophils/100 WBC (Bld)67.6 %Lbxxxr17-46Uxoat [facility] CampusPlatelet mean volume (Bld) [Entitic vol]8.4 fLNormal7.5-11.2Mount [facility] CampusPlatelets (Bld) [#/Vol]261 thou/stJXkfpag465-725Imqze [facility] CampusRBC (Bld) [#/Vol]4.16 x(10)6/mcLNormal3.80-5.60[facility] WBC (Bld) [#/Vol]6.8 thou/mcLNormal4.0-10.5[facility] CampusMRI lumbar spine without contraston 53-50-7426Fdkzdfcaxa degenerative disc disease and multilevel degenerative facet/ligamentous hypertrophy withcanal stenosis at L3-4 and L4-5. Bilateral foraminal narrowing throughout the lumbar spine as descri bed above. Lateral recess narrowing at L2-3, L3-4, and L4-5.[employer] Phone: eXAMINATION: MRI OF THE LUMBAR SPINE [...] There is moderate to severe right foraminal narrowing.[employer] Phone: eepifanio, [facility] Incoming Radiant Results From [employer] - 06/28/2020 10:35 AM EDT EXAMINATION: MRI [...] recess narrowing at L2-3, L3-4, and L4-5. [employer] Work Phone: MR BRAIN/ORBIT WITH AND WITHOUT CONTRASTon [...] KUNZ on FriNov 03, 2019 1:02:13 PM EDTSoutheast Georgia Health System CamdenComment on above:Order Comment: PT/FAX Injury/Trauma or Illness?:Illness/Other [...] in the mastoid air cells are seen. [employer]FS ([employer] Workstation ID: [id number]: MR BRAIN/ORBIT WITH AND [...] involving the suprasellar cistern/position of the optic chiasm.[facility]HealthInterface, Rad In Dilan Speechq - 11/03/2019 1:04 [...] air cells are seen. PRR/pji Workstation ID: [id number] Head WO Contraston [id number] acute intracranial abnormality. Generalized involution changes chronic small ischemic disease.[facility] HospitalERVINEXAMINATION: CT OF THE HEAD WITHOUT CONTRAST 09/18/2019 [...] of the visualized skull or soft tissues. [facility] HospitalLakshmi, Jhon Incoming Radiant Results From [employer] - 09/18/2019 6:32 PM EDT EXAMINATION: CT [...] Generalized involution changes chronic small ischemic disease. [facility], [facility] [id number] acute fracture traumatic malalignment of the cervical spine. Minimal acute superior endplate compression fractures T3 and T5 and indeterminate compression fractures T1-T2 and T4.[facility], [place] EXAMINATION: CT OF THE CERVICAL SPINE WITHOUT [...] visualized. Right lung calcified granuloma. Trace pleural effusions.[facility], Latashai, Mhpn Incoming Radiant Results From [employer] - 09/18/2019 6:42 PM EDT EXAMINATION: CT [...] and indeterminate compression fractures T1-T2 and T4. [facility], [place] Vital Signs Date TimeVital SignValuePerforming FreeypxaoUygyxvfc31-93-3351 15:01-0500Body oveunx138.96 cmFaizan Bragg MD Work Phone: [facility]11-10-2025 15:01-0500 Body mass index (BMI) [Ratio]37.8 kg/x1FgrtusFaizan Bragg MD Work Phone: [facility]11-10-2025 15:01-0500 Body .3 [degF]Faizan Bragg MD Work Phone: [phone]11-10-2025 15:01-0500 Body jpqudq229.8 kgFaizan Bragg MD Work Phone: [phone]11-10-2025 15:01-0500 Diastolic blood xiezexir21 mm[Hg]Faizan Bragg MD Work Phone: [phone]11-10-2025 15:01-0500 Heart rate76 /minFaizan Bragg MD Work Phone: [phone]11-10-2025 15:01-0500 SaO2% (BldA) [Mass fraction]99 %Faizan Bragg MD Work Phone: [phone]11-10-2025 15:01-0500 Systolic blood fpzxmzox949 mm[Hg]Faizan Bragg MD Work Phone: [phone]10-30-2025 08:53-0400 Body ogrhbj348.9 cmChriststeffanie Gusman DPM Work Phone: [facility] CenterKzkpuzkgpi61-19-8614 08:53-0400Body mass index (BMI) [Ratio]26.45 kg/t4Fhojlaunqjx Bohach DPM Work Phone: [facility] CenterImhijsiczp81-14-5601 08:53-0400Body ekkuwt53.45 kgChtravis Gusman DPM Work Phone: [facility] CenterKojmatddhc80-26-6716 08:53-0400Diastolic blood auhbvdcd99 mm[Hg]Carol Gusman DPM Work Phone: [facility] CenterUlcxwikbew02-47-3355 08:53-0400Heart rate62 /min Carol Gusman DPM Work Phone: [facility] CenterBktunyhzai76-92-2497 08:53-0400Systolic blood zzakmeup984 mm[Hg]Carol Gusman DPM Work Phone: [facility] CenterHfcgyosrvt68-28-6826 16:34-0400Body cm [address]10-20-2025 16:34-0400Body mass index (BMI) [Ratio] 25.04 kg/m[address]10-20-2025 16:34-0400Body jenwlr89.[address]09-24-2025 10:28-0400Body hfmtox684.8 cmFaizan Bragg MD Work Phone: [phone]09-24-2025 10:28-0400 Body mass index (BMI) [Ratio]29.2 kg/b0WjenbvFaizan Bragg MD Work Phone: [phone]09-24-2025 10:28-0400 Body zqquaajwgrf74.5 [degF]Faizan Bragg MD Work Phone: [phone]09-24-2025 10:28-0400 Body .53 kgFaizan Bragg MD Work Phone: [phone] [place], [place] 9364609-24-2025 10:28-0400 Diastolic blood pyajtgdg27 mm[Hg]Faizan Bragg MD Work Phone: [phone]09-24-2025 10:28-0400 Heart rate71 /minFaizan Bragg MD Work Phone: [phone] [address]09-24-2025 10:28-0400 SaO2% (BldA) [Mass fraction]94 %Faizan Bragg MD Work Phone: [phone]09-24-2025 10:28-0400 Systolic blood difnlytm964 mm[Hg]Faizan Bragg MD Work Phone: [phone] [place], [place] 9364609-10-2025 09:28-0400 Body pgknmy358.8 cmFaizan Bragg MD Work Phone: [phone])035[address]09-10-2025 09:28-0400 Body mass index (BMI) [Ratio]29.2 kg/v4GfainlFaizan Bragg MD Work Phone: [phone]09-10-2025 09:28-0400 Body fevgfg15.64 kgFaizan Bragg MD Work Phone: [phone]09-10-2025 09:28-0400 Diastolic blood mbbuoedy73 mm[Hg]Faizan Bragg MD Work Phone: [phone]09-10-2025 09:28-0400 Heart rate61 /minFaizan Bragg MD Work Phone: [phone])[address]09-10-2025 09:28-0400 Respiratory rate12 /minFaizan Bragg MD Work Phone: [phone]09-10-2025 09:28-0400 SaO2% (BldA) [Mass fraction]97 %Faizan Bragg MD Work Phone: [phone]09-10-2025 09:28-0400 Systolic blood lddqloww127 mm[Hg]Faizan Bragg MD Work Phone: [phone]08-21-2025 14:15-0400 Body fytdsp188.9 cmChriststeffanie Gusman DPM Work Phone: [facility] CenterXuygyzbpbp48-74-7120 14:15-0400Body mass index (BMI) [Ratio]26.45 kg/a3Exccotznydz Bohach DPM Work Phone: [facility] CenterVpndoesdbc64-30-9563 14:15-0400Body jlcxuh71.45 kgChtravis Gusman DPM Work Phone: [facility] CenterLeklalywsp87-40-3742 14:15-0400Diastolic blood bypllsha32 mm[Hg]Carol Gusman DPM Work Phone: [facility] CenterSbeliwlsvm42-83-6544 14:15-0400Heart rate63 /min Carol Gusman DPM Work Phone: [facility] CenterXqrrjsnzee73-45-4501 14:15-0400Systolic blood mm[Hg]Carol Gusman DPM Work Phone: [facility] CenterEvdkwusvva49-29-4826 14:04-0400Body mass index (BMI) [Ratio]26.32 kg/m2Sreedhar Zayas MD Work Phone: [phone]xsqrw81-21-9827 14:04-0400Body wcmkiufrhqj41.01 [degF]Sreedhar Zayas MD Work Phone: [phone]bLehqww58-57-7473 14:04-0400Body .99 kgSreedhar Zayas MD Work Phone: [phone]) 553-9769719-8900GjfeZoxoll01-884849QhhwEeohai75-16-2284 15:33-0400Diastolic blood oaehboko07 mm[Hg]Carol Gusman DPM Work Phone: [facility] CenterNhsfmqmvpf74-46-3857 15:33-0400Heart rate70 /min Carol Gusman DPM Work Phone: [facility] CenterObimpnbkff56-90-9146 15:33-0400Systolic blood mm[Hg]Carol Gusman DPM Work Phone: [facility] CenterIbghonqsvk95-37-8289 09:54-0400Body .8 cmFaizan Bragg MD Work Phone: [facility]06-12-2025 09:54-0400 Body mass index (BMI) [Ratio]28.2 kg/k8OzmlkeFaizan Bragg MD Work Phone: [facility]06-12-2025 09:54-0400 Body oiifab35.13 kgFaizan Bragg MD Work Phone: [facility]06-12-2025 09:54-0400 Diastolic blood llnnukvi95 mm[Hg]Faizan Bragg MD Work Phone: [facility]06-12-2025 09:54-0400 Heart rate53 /minFaizan Bragg MD Work Phone: [facility]06-12-2025 09:54-0400 Systolic blood ziiifrqz807 mm[Hg]Faizan Bragg MD Work Phone: [facility]05-01-2025 14:05-0400 Body ohbhrz571.9 cmChristophana Bohach DPM Work Phone: [facility] CenterDwryotfcff52-20-9295 14:05-0400Body mass index (BMI) [Ratio]26.45 kg/m2Hmgmefjndwl Bohach DPM Work Phone: [facility] CenterIbhpxllfzy21-09-9426 14:05-0400Body mwtyxz67.45 kgChristopher Bohach DPM Work Phone: [facility] CenterAegdlmwbvm89-75-1124 14:05-0400Diastolic blood novkzywf87 mm[Hg]Christsteffanie Gusman DPM Work Phone: [facility] CenterPsaanfbzjj16-10-1671 14:05-0400Heart rate57 /min Carol Gusman DPM Work Phone: [facility] CenterJinbbrdzok40-13-3963 14:05-0400Respiratory rate18 /minChristop Bohach DPM Work Phone: [facility] CenterIrwyfnakbu18-97-4954 14:05-0400Systolic blood mm[Hg]Carol Gusman DPM Work Phone: [facility] CenterGkizqjfzpc63-31-3027 10:50-0400Body xtqoia315.9 cmCistbuzzer Bohach DPM Work Phone: [facility] CenterYpyfluyrcj39-97-7425 10:50-0400Body mass index (BMI) [Ratio]26.45 kg/z1Ovrdpjmbhkx Bohach DPM Work Phone: [facility] CenterRzldxaivrg11-30-4636 10:50-0400Body rlebfh44.45 kgChristopher Bohach DPM Work Phone: [facility] CenterJlfmiznizk33-47-7675 10:50-0400Diastolic blood helxijmz50 mm[Hg]Carol Gusman DPM Work Phone: [facility] CenterHslkyrfbnu31-88-4907 10:50-0400Heart rate77 /min Mohsensteffanie Naseem DPM Work Phone: [facility] CenterJmydmmpzgi24-95-6571 10:50-0400Systolic blood nyiczmit457 mm[Hg]Mohsensteffanie Naseem DPM Work Phone: [facility] CenterClybjxjriz49-21-9053 14:43-0400Body ebhacd846.8 cmOhio[facility]03-24-2025 14:43-0400Body mass index (BMI) [Ratio]27.7 kg/u6RsvhpxtizOhiohealth Mansfield Hospital03-24-2025 14:43-0400Body tdkkfqyujth28.9 [degF][facility]03-24-2025 14:43-0400Body jweztt01.77 kgOhiohealth Mansfield Hospital03-24-2025 14:43-0400Diastolic blood hvgeatns69 mm[Hg][facility]03-24-2025 14:43-0400 Heart rate84 /[facility]03-24-2025 14:43-1613WsR3% (BldA) [Mass fraction]98 %[facility]03-24-2025 14:43-0400 Systolic blood drqzlyfk269 mm[Hg][facility]02-26-2025 11:20-0500Body unmigg772.8 cmOhiohealth [facility]field Hospital02-26-2025 11:20-0500Body mass index (BMI) [Ratio]29.2 kg/u8PajrcgumjOhiohealth Mansfield Hospital02-26-2025 11:20-0500Body haxdza02.53 kgOhiohealth Mansfield Hospital 05-26-2024 11:20-0500Diastolic blood squvtapo78 mm[Hg][facility]02-26-2025 11:20-0500Heart rate61 /[facility] 05-26-2024 11:20-9280HtQ8% (BldA) [Mass fraction]97 %[facility]02-26-2025 11:20-0500Systolic blood ycrotjao185 mm[Hg][facility]02-13-2025 11:11-0500Body xplasq675.9 cmChrnoemi Naseem DPM Work Phone: [phone] [place], [place] [address]Lhnwzgetva62-57-3917 11:11-0500Body mass index (BMI) [Ratio]26.45 kg/m6Cafrzjblyvm Bohglo DPM Work Phone: [phone] [place], [place] [address]Libaxoakgz81-00-6325 11:11-0500Body csviuz64.45 kgChkoffitreyher Devlinach DPM Work Phone: [phone] [place], [place] [address]Iwhrxaahld64-27-2966 11:11-0500Diastolic blood cghhyghh14 mm[Hg]Mohsensteffanie Clausglo DPM Work Phone: [phone] [place], [place] [address]Fenonoijwh61-35-3820 11:11-0500Heart rate72 /min Mohsensteffanie Gusman DPM Work Phone: [phone] [place], [place] [address]Oiwgzuuwoy29-85-0683 11:11-0500Systolic blood yylqfvay040 mm[Hg]Mohsensteffanie Gusman DPM Work Phone: [phone] [place], [place] [address]Nrzkzmxhyt40-10-2015 09:00-0500Body xbpeki458.8 cmOhiohealth [facility] Hospital02-07-2025 09:00-0500Body mass index (BMI) [Ratio]29.1 kg/o5KjezdchduOhiohealth Mansfield Hospital02-07-2025 09:00-0500Body gsixif65.07 kgOhiohealth Mansfield Hospital02-07-2025 09:00-0500Diastolic blood otasekwy16 mm[Hg][facility]02-07-2025 09:00-0500 Heart rate73 /minOhiohealth Mansfield Hospital02-07-2025 09:00-0500Systolic blood jkcnlmiv088 mm[Hg][facility]01-31-2025 10:53-0500 Body yatnan215.8 cmOhiohealth [facility]field Hospital01-31-2025 10:53-0500Body mass index (BMI) [Ratio]29 kg/b9DpgifkkdaOhiohealth Mansfield Hospital01-31-2025 10:53-0500Body .85 [facility]01-31-2025 10:53-0500Diastolic blood oacnzzol22 mm[Hg][facility] 04-30-2024 10:53-0500Heart rate71 /[facility] 04-30-2024 10:53-0500Respiratory rate12 /[facility] 04-30-2024 10:53-0500Systolic blood apwamfpb646 mm[Hg][facility]12-17-2024 10:09-0500Body luguwq958.8 cmOhiohealth [facility]field Hospital 03-16-2024 10:09-0500Body mass index (BMI) [Ratio]29.5 kg/g0ToaspbjpyOhiohealth Mansfield Hospital12-17-2024 10:09-0500Body yjpvqcmfyea29.4 [degF][facility]12-17-2024 10:09-0500Body ghreyj90.55 kgOhiohealth Mansfield Hospital12-17-2024 10:09-0500Diastolic blood licboijy97 mm[Hg][facility]12-17-2024 10:09-0500Heart rate84 /[facility]12-17-2024 10:09-2400TeE4% (BldA) [Mass fraction]96 %[facility]12-17-2024 10:09-0500Systolic blood cfksqoyq740 mm[Hg] [facility]12-11-2024 11:46-0500Body ipfqnv371.9 cm Carol Gusman DPM Work Phone: [facility] CenterRsxuvviaee10-76-0289 11:46-0500Body mass index (BMI) [Ratio]26.45 kg/t3Xiglafywknt Clausach DPM Work Phone: [facility] CenterRnrewbtuxd19-50-5707 11:46-0500Body lvyocs94.45 kgChtravis Gusman DPM Work Phone: [facility] CenterGzzassksvg94-84-5875 11:46-0500Diastolic blood yhmqudpb60 mm[Hg]Carol Gusman DPM Work Phone: [facility] CenterKfmfzltnxi93-79-0558 11:46-0500Heart rate74 /min Carol Gusman DPM Work Phone: [facility] CenterYiuoerxqjd51-97-9497 11:46-0500Respiratory rate18 /minChristopher Gusman DPM Work Phone: noK[facility] CenterTyqqehwmmp47-12-1540 11:46-0500Systolic blood mm[Hg]Carol Gusman DPM Work Phone: [facility] CenterScckjkzfqy15-54-0533 13:35-0500Diastolic blood iaacoqih94 mm[Hg]Daniel Hair [facility]12-04-2024 13:35-0500Heart rate58 /minDaniel Hair [facility]12-04-2024 13:35-0500Mean blood bnfpiris35 mm[Hg]Daniel Hair [address] [place], [place] [address]752112-04-2024 13:35-0500 Respiratory rate14 /minBrapatricia Hair [address] [place], [place] 8752112-04-2024 13:35-0500 Systolic blood fyzclkzm740 mm[Hg]Daniel Hair [facility]11-26-2024 13:33-0500Heart rate70 /minBrapatricia Hair [facility]11-26-2024 13:33-3931ZsG7% (BldA) [Mass fraction]99 %Daniel Hair [facility]11-26-2024 13:33-0500 Diastolic blood kfjntleh58 mm[Hg]Daniel Hair [facility]11-26-2024 13:33-0500Mean blood mm[Hg]Daniel Hair [facility]11-26-2024 13:33-0500 Systolic blood venppztq512 mm[Hg]Daniel Hair [facility]11-26-2024 13:32-0500 Respiratory rate16 /minBradfmando Hair [facility]11-26-2024 13:25-0500 Diastolic blood xqdmwbyu75 mm[Hg]Daniel Hair [facility]11-26-2024 13:25-0500Heart rate57 /minBradfmando Hair [facility]11-26-2024 13:25-0500 Respiratory rate16 /minBradfmando Hair [address] [place], [place] 8752111-26-2024 13:25-6240YrM2% (BldA) [Mass fraction]98 %Daniel Hair [address] [place], [place] 8752111-26-2024 13:25-0500 Systolic blood yxodkour259 mm[Hg]Daniel Hair [address] [place], [place] 8[address]111-26-2024 12:35-0500Heart rate61 /minBrapatricia Hair [facility]11-26-2024 12:35-8273WnI6% (BldA) [Mass fraction]99 %Daniel Hair [address] [place], [place] 8752111-26-2024 12:34-0500Body vlkuqpngryr26.34 [degF]Daniel Hair [address] [place], [place] 8752111-26-2024 12:32-0500 Diastolic blood lztpwyzv22 mm[Hg]Daniel Hair [facility]11-26-2024 12:32-0500Mean blood cfcsenlp10 mm[Hg]Daniel Hair [facility]11-26-2024 12:32-0500 Systolic blood numztsee737 mm[Hg]Daniel Hair [address] [place], [place] 8752111-26-2024 12:28-0500 Respiratory rate14 /minBrapatricia Hair [facility]10-30-2024 11:43-0400Body yvfita961.07 cmOhiohealth [facility]field Hospital10-30-2024 11:43-0400Body mass index (BMI) [Ratio]28.4 kg/x4UuubqypdoOhiohealth Mansfield Hospital10-30-2024 11:43-0400Body ryosqrkjpgd73.1 [degF][facility]10-30-2024 11:43-0400Body .17 kgOhiohealth Mansfield Hospital10-30-2024 11:43-0400Diastolic blood yiokhhxm18 mm[Hg][facility] 01-28-2024 11:43-0400Heart rate68 /minOhiohealth Mansfield Hospital 01-28-2024 11:43-3102JkT4% (BldA) [Mass fraction]94 %[facility]10-30-2024 11:43-0400Systolic blood uawryhzb038 mm[Hg][facility]10-24-2024 10:30-0400Diastolic blood qyqgrtev14 mm[Hg]Daniel Hair [facility]10-24-2024 10:30-0400Heart rate89 /minBrapatricia Hair [facility]10-24-2024 10:30-0400Mean blood dipgfpwc45 mm[Hg]Daniel Hair [facility]10-24-2024 10:30-0400 Respiratory rate16 /minDaniel Hair [facility]10-24-2024 10:30-0400 Systolic blood idahwxzk99 mm[Hg]Daniel Hair [facility]10-22-2024 10:22-0400Heart rate51 /minBrapatricia Hair [facility]10-22-2024 10:22-4935BtC5% (BldA) [Mass fraction]99 %Daniel Hair [facility]10-22-2024 10:22-0400 Diastolic blood zdhrqyhq29 mm[Hg]Daniel Hair [facility]10-22-2024 10:22-0400Mean blood boarxtcw11 mm[Hg]Daniel Hair [facility]10-22-2024 10:22-0400 Systolic blood smjbudrf056 mm[Hg]Daniel Reginaldo [facility]10-22-2024 10:22-0400 Respiratory rate16 /minBradfmando Hair [facility]10-22-2024 10:13-0400 Diastolic blood cihjcfym81 mm[Hg]Daniel Hair [facility]10-22-2024 10:13-0400Heart rate51 /minBradford Reginaldo [facility]10-22-2024 10:13-0400 Respiratory rate16 /minBradfmando Reginaldo [facility]10-22-2024 10:13-6390ViV6% (BldA) [Mass fraction]99 %Daniel Hair [facility]10-22-2024 10:13-0400 Systolic blood crzrgluy114 mm[Hg]Daniel Hair [facility]10-22-2024 09:43-0400Heart rate54 /minBradfmando Hair [facility]10-22-2024 09:43-4584VcA1% (BldA) [Mass fraction]98 %Daniel Hair [facility]10-22-2024 09:42-0400 Diastolic blood jjtqneng99 mm[Hg]Daniel Hair [facility]10-22-2024 09:42-0400Mean blood ctijteew56 mm[Hg]Daniel Hair [facility]10-22-2024 09:42-0400 Systolic blood hvigjjlt260 mm[Hg]Daniel Hair [facility]10-22-2024 09:42-0400Body sulflxczcoj24.7 [degF]Daniel Hair [facility]10-22-2024 09:41-0400 Respiratory rate16 /minBradfmando Reginaldo [address] [place], [place] 8[address]109-18-2024 09:52-0400 Diastolic blood txhzanmj30 mm[Hg]Daniel Hair [facility]09-18-2024 09:52-0400Heart rate58 /minBrapatricia Reginaldo [address] [place], [place] 8[address]109-18-2024 09:52-0400Mean blood kyvdfbdj42 mm[Hg]Daniel Hair [facility]09-18-2024 09:52-0400 Respiratory rate20 /minBrapatricia Reginaldo [facility]09-18-2024 09:52-0400 Systolic blood qjucladm949 mm[Hg]Daniel Hair [facility]09-03-2024 10:130400Body .9 cmChristophana Gusman DPM Work Phone: [facility] CenterFihffhtalw40-95-2385 10:130400Body mass index (BMI) [Ratio]26.45 kg/q4Prehcxzmflx Bohach DPM Work Phone: [facility] CenterYqeayryhhh13-32-0899 10:13040Body .45 kgChristopher Bohach DPM Work Phone: [facility] CenterBzurwgzfbm01-88-0843 10:13-0400Diastolic blood uxnctkww70 mm[Hg]Mohsensteffanie Naseem DPM Work Phone: [facility] CenterWtvwfewppc66-18-8827 10:13-0400Heart rate62 /min Carol Naseem DPM Work Phone: [facility] CenterQgssrtchbq12-75-5748 10:13-0400Systolic blood uyrispwl06 mm[Hg]Mohsensteffanie Gusman DPM Work Phone: [facility] CenterSrvghslfcz28-27-2261 14:22-0400Heart rate64 /min Daniel Hair [facility]08-26-2024 14:22-1999ApE9% (BldA) [Mass fraction]99 %Daniel Hair [facility]08-26-2024 14:22-0400 Diastolic blood mm[Hg]Daniel Hair [facility]08-26-2024 14:22-0400Mean blood xnriwwvh73 mm[Hg]Daniel Reginaldo [facility]08-26-2024 14:22-0400 Systolic blood mm[Hg]Daniel Reginaldo [facility]08-26-2024 14:22-0400 Respiratory rate16 /minBrapatricia Hair [facility]08-26-2024 14:05-0400 Diastolic blood mm[Hg]Daniel Reginaldo [facility]08-26-2024 14:05-0400Heart rate67 /minBrapatricia Hair [facility]08-26-2024 14:05-0400 Respiratory rate16 /minBrapatricia Hair [facility]08-26-2024 14:05-5771UgL9% (BldA) [Mass fraction]98 %Daniel Hair [facility]08-26-2024 14:05-0400 Systolic blood yhipnkhf364 mm[Hg]Daniel Hair [facility]08-26-2024 12:41-0400Heart rate64 /minBrapatricia Hair [facility]08-26-2024 12:41-3653GuT0% (BldA) [Mass fraction]98 %Daniel Hair [facility]08-26-2024 12:40-0400 Respiratory rate14 /minBrapatricia Hair [facility]08-26-2024 12:40-0400 Diastolic blood ffowefcr54 mm[Hg]Daniel Hair [facility]08-26-2024 12:40-0400Mean blood fgfcfhpa97 mm[Hg]Daniel Hair [facility]08-26-2024 12:40-0400 Systolic blood qnkapixw238 mm[Hg]Daniel Hair [facility]08-26-2024 12:40-0400Body yuxtlyfcztv32.88 [degF]Daniel Hair [facility]08-21-2024 10:45-0400Body ypxvtv463.07 cmOhiohealth [facility] Hospital08-21-2024 10:45-0400Body mass index (BMI) [Ratio]29.1 kg/n2OpagmccwrOhiohealth Mansfield Hospital08-21-2024 10:45-0400Body sexvyw57.44 kgOhiohealth Mansfield Hospital08-21-2024 10:45-0400Diastolic blood fislcayr36 mm[Hg][facility] 11-19-2023 10:45-0400Heart rate80 /minOhiohealth Mansfield Hospital 11-19-2023 10:45-0400Systolic blood npgylmce614 mm[Hg][facility]07-30-2024 14:02-0400Heart rate71 /minBradford Reginaldo [facility] [place]07-30-2024 14:02-7065HiM7% (BldA) [Mass fraction]99 %Daniel Hair [facility] [place]07-30-2024 14:02-0400 Diastolic blood itkuvyzc74 mm[Hg]Daniel Hair [facility] [place]07-30-2024 14:02-0400Mean blood cczzycta09 mm[Hg]Daniel Hair [facility] [place]07-30-2024 14:02-0400 Systolic blood vhsnluto160 mm[Hg]Sanchez Reginaldo [facility] [place]07-30-2024 14:02-0400 Respiratory rate16 /minBradfmando Reginaldo [facility] [place]07-30-2024 13:48-0400 Diastolic blood iyfmpwkp87 mm[Hg]Daniel Hair [facility] [place]07-30-2024 13:48-0400Heart rate59 /minBradfmando Reginaldo [facility] [place]07-30-2024 13:48-3078XmG7% (BldA) [Mass fraction]98 %Daniel Reginaldo [facility] [place]07-30-2024 13:48-0400 Systolic blood lruvuvyb904 mm[Hg]Sanchez Reginaldo [facility] [place]07-30-2024 12:54-0400Heart rate64 /minBrapatricia Hair [facility] [place]07-30-2024 12:54-8725ZcV9% (BldA) [Mass fraction]98 %Daniel Hair [facility] [place]07-30-2024 12:54-0400 Diastolic blood whbppwec84 mm[Hg]Daniel Hair [facility] [place]07-30-2024 12:54-0400Mean blood wuyzonnn13 mm[Hg]Daniel Hair [facility] [place]07-30-2024 12:54-0400 Systolic blood mm[Hg]Daniel Hair [facility] [place]07-30-2024 12:53-0400 Respiratory rate14 /minBradfmando Hair [facility] [place]07-30-2024 12:53-0400Body wthasdcwktl14.06 [degF]Daniel Hair [facility] [place]06-19-2024 11:10-0400 Diastolic blood osgqamdh64 mm[Hg]Heavenly Mahoney [address] [place], [place] [id number] 11:10-0400Heart rate60 /minAmanda Mahoney [address] [place], [place] [id number] 11:10-0400Mean blood yohouaqq65 mm[Hg]Heavenly Mahoney [address] [place], [place] [id number] 11:10-0400 Respiratory rate14 /minAmanda Mahoney [facility] [place]06-19-2024 11:10-0400 Systolic blood wzaiujdw589 mm[Hg]Heavenly Mahoney [facility] [place]06-10-2024 14:29-0400Heart rate55 /minBradfmando Hair [facility] [place]06-10-2024 14:29-4193TeH7% (BldA) [Mass fraction]100 %Daniel Hair [facility] [place]06-10-2024 14:29-0400 Respiratory rate16 /minBradford Reginaldo [facility] [place]06-10-2024 14:28-0400 Diastolic blood ujzrlaog34 mm[Hg]Daniel Hair [facility] [place]06-10-2024 14:28-0400Mean blood sgonwqfy98 mm[Hg]Sanchez Reginaldo [facility] [place]06-10-2024 14:28-0400 Systolic blood mm[Hg]Daniel Hair [facility] [place]06-10-2024 14:12-0400 Diastolic blood niuiipvy98 mm[Hg]Daniel Hair [facility] [place]06-10-2024 14:12-0400Heart rate74 /minBradfmando Hair [facility] [place]06-10-2024 14:12-0400 Respiratory rate14 /minBradford Reginaldo [facility] [place]06-10-2024 14:12-3804JpS7% (BldA) [Mass fraction]97 %Daniel Hair [facility] [place]06-10-2024 14:12-0400 Systolic blood yhbdehxp680 mm[Hg]Sanchez Reginaldo [facility] [place]06-10-2024 13:30-0400Heart rate76 /minBradfmando Hair [facility] [place]06-10-2024 13:30-7257CeR2% (BldA) [Mass fraction]98 %Daniel Reginaldo [facility] [place]06-10-2024 13:30-0400Body znwxnlkqtje90.88 [degF]Daniel Hair [facility] [place]06-10-2024 13:29-0400 Diastolic blood utcmrjgl54 mm[Hg]Daniel Hair [facility] [place]06-10-2024 13:29-0400Mean blood fjzdwecu89 mm[Hg]Daniel Hair [address] [place], [place] 8752106-10-2024 13:29-0400 Systolic blood mm[Hg]Daniel Hair [address]06-10-2024 13:24-0400 Respiratory rate14 /minBradford Hair [address] [place], [place] [id number] 08:13-0400 Diastolic blood urckozxm54 mm[Hg]Heavenly Mahoney [address] [place], [place] [id number] 08:13-0400Heart rate68 /minAmanda Denzel [address]05-13-2024 08:13-0400Mean blood mm[Hg]Heavenly Mahoney [address]05-13-2024 08:13-0400 Respiratory rate14 /minAmanda Denzel [address] [place], [place] [id number] 08:13-0400 Systolic blood nfscjliq649 mm[Hg]Heavenly Mahoney [address]05-06-2024 09:21-0400Heart rate53 /minBradford Reginaldo [address] [place], [place] [id number] 09:21-6534ClD0% (BldA) [Mass fraction]98 %Daniel Hair [address] [place], [place] [id number] 09:21-0400 Diastolic blood yivtttox76 mm[Hg]Daniel Hair [facility] [place]05-06-2024 09:21-0400Mean blood sijnsjzs308 mm[Hg]Daniel Hair [facility] [place]05-06-2024 09:21-0400 Systolic blood labddawz248 mm[Hg]Daniel Hair [facility] [place]05-06-2024 09:21-0400 Respiratory rate16 /minBradford Reginaldo [facility] [place]05-06-2024 09:07-0400 Diastolic blood lnzpxzob44 mm[Hg]Sanchez Reginaldo [facility] [place]05-06-2024 09:07-0400Heart rate69 /minBrapatricia Reginaldo [facility] [place]05-06-2024 09:07-6810AyR0% (BldA) [Mass fraction]98 %Daniel Hair [facility] [place]05-06-2024 09:07-0400 Systolic blood mm[Hg]Daniel Hair [facility] [place]05-06-2024 08:12-0400Heart rate56 /minBrapatricia Reginaldo [facility] [place]05-06-2024 08:12-3496FqC1% (BldA) [Mass fraction]100 %Daniel Reginaldo [facility] [place]05-06-2024 08:12-0400Body eqgrovgiinc26.34 [degF]Daniel Hair [facility] [place]05-06-2024 08:11-0400 Diastolic blood dtuworhb14 mm[Hg]Daniel Hair [facility] [place]05-06-2024 08:11-0400Mean blood exxrqgcd31 mm[Hg]Daniel Hair [facility] [place]05-06-2024 08:11-0400 Systolic blood lpiqpqpx409 mm[Hg]Daniel Hair [facility] [place]05-06-2024 08:11-0400 Respiratory rate18 /minBrapatricia Hair [facility] [place]04-04-2024 14:08-0400 Diastolic blood mnwbyfun62 mm[Hg]Daniel Hair [facility] [place]04-04-2024 14:08-0400Heart rate53 /minDaniel Hair [facility] [place]04-04-2024 14:08-0400Mean blood ulipbahr84 mm[Hg]Daniel Hair [facility] [place]04-04-2024 14:08-0400 Respiratory rate16 /minBrakevinmando Hair [facility] [place]04-04-2024 14:08-0400 Systolic blood firfiais492 mm[Hg]Daniel Hair [facility] [place]01-09-2024 14:00-0500Body .07 cmFaizan Bragg Other [employer] Other 01-09-2024 14:00-0500Body mass index (BMI) [Ratio] 29.14 kg/u1TojdocFaizan Bragg Other [employer] Other 01-09-2024 14:00-0500Body gyqelb37.44 kgFaizan Bragg Other [employer] Other 01-09-2024 14:00-0500Diastolic blood yshqvbye93 mm[Hg] Faizan Bragg Other [employer] Other 01-09-2024 14:00-0500Systolic blood lwftaped082 mm[Hg] Faizan Bragg Other [employer] Other 04-11-2023 11:45-0400Body kvngut813.07 cmFaizan Bragg Other [employer] Other 04-11-2023 11:45-0400Body mass index (BMI) [Ratio] 28.15 kg/z6ZtzstsFaizan Bragg Other [employer] Other 04-11-2023 11:45-0400Body fsjachskmaa145.2 [degF] Faizan Bragg Other [employer] Other 04-11-2023 11:45-0400Body .27 kgGilliannancy Bragg Other [employer] Other 04-11-2023 11:45-0400Diastolic blood uihdgart57 mm[Hg] Faizan Bragg Other [employer] Other 04-11-2023 11:45-7325BaR4% (BldA) [Mass fraction]96 % Faizan Bragg Other [employer] Other 04-11-2023 11:45-0400Systolic blood fyjudpgp099 mm[Hg] Faizan Bragg Other [employer] Other 02-22-2023 09:30-0500Body uyqqdu496.07 cmFaizan Bragg Other [employer] Other 02-22-2023 09:30-0500Body mass index (BMI) [Ratio] 28.15 kg/t3VlslpvFaizan Bragg Other [employer] Other 02-22-2023 09:30-0500Body wshqty83.27 kgFaizan Bragg Other [employer] Other 02-22-2023 09:30-0500Diastolic blood mm[Hg] Faizan Bragg Other [employer] Other 02-22-2023 09:30-3888UoK4% (BldA) [Mass fraction]97 % Faizan Bragg Other [place] [employer] Other 02-22-2023 09:30-0500Systolic blood mpojspco748 mm[Hg] Faizan Bragg Other [place] [employer] Other 07-26-2022 13:35-0400Diastolic blood vaujdidr18 mm[Hg] MD Faizan Bragg Work Phone: [facility]07-26-2022 13:35-0400 Heart rate55 /minMD Faizan Bragg Work Phone: [facility]07-26-2022 13:35-0400 Respiratory rate18 /minMD Faizan Bragg Work Phone: [facility]07-26-2022 13:35-0400 SaO2% (BldA) [Mass fraction]98 %MD Faizan Bragg Work Phone: [facility]07-26-2022 13:35-0400 Systolic blood xpzjwurp841 mm[Hg]MD Faizan Bragg Work Phone: [facility]07-26-2022 11:52-0400 Body espbmc027.96 cmMD Faizan Bragg Work Phone: [phone]07-26-2022 11:52-0400 Body dqsyuz66.45 kgMD Faizan Bragg Work Phone: [facility]07-07-2022 14:30-0400 Body heightCameroradha Amaya Other [place] [employer] Other 07-07-2022 14:30-0400Body mass index (BMI) [Ratio] 25.68 kg/i3Yhdftpf Epifaniottnaheed Other [place] [employer] Other 07-07-2022 14:30-0400Body qllidx10.72 kgCameroradha EpifanioVocollectnaheed Other [place] [employer] Other 07-07-2022 14:30-0400Diastolic blood hutkiugo91 mm[Hg] Mik [facility] [employer] Other 07-07-2022 14:30-0400Systolic blood xhtvjizt622 mm[Hg] Mik Amaya Other [facility] [employer] Other 04-04-2022 10:53-0400Body cuofxs979 cmSkaterine Manzanares MD Work Phone: [facility]04-04-2022 10:53-0400Body temperature 97.2 [degF]Ketan Manzanares MD Work Phone: [facility]04-04-2022 10:53-0400Body pxqumx13.71 kgSitaylor Manzanares MD Work Phone: [facility]04-04-2022 10:53-0400Diastolic blood heofuzhr01 mm[Hg]Ketan Manzanares MD Work Phone: [facility]04-04-2022 10:53-0400Heart rate65 /min Ketan Manzanares MD Work Phone: [facility]04-04-2022 10:53-0400Respiratory rate 16 /minSkaterine Manzanares MD Work Phone: [facility]04-04-2022 10:53-0096XbC5% (BldA) [Mass fraction]99 %Ketan Manzanares MD Work Phone: [facility]04-04-2022 10:53-0400Systolic blood tgfotxvt598 mm[Hg]Ketan Manzanares MD Work Phone: [facility]07-23-2021 16:11-0400Body guvfon829.4 cmPamela Montoya MD Work Phone: [facility] Work Phone: [phone] 301-271107-23-2021 16:11-0400Body mass index (BMI) [Ratio] 28.76 kg/m8GiivlPamela Montoya MD Work Phone: [facility] Work Phone: [phone]) 954-363407-23-2021 16:11-0400Body ncjfbmpinxl88.71 [degF]Pamela Montoya MD Work Phone: [facility] Work Phone: 1(204) 441-669407-23-2021 16:11-0400Body rasrpy79.88 kgPamela Montoya MD Work Phone: [facility] [employer] Work Phone: [phone] 16:11-0400Diastolic blood vtarynbv09 mm[Hg] Pamela Montoya MD Work Phone: [facility] Work Phone: [phone]) [phone] 16:11-0400Heart rate99 /Don Montoya MD Work Phone: [facility] [employer] Work Phone: 1([phone]) 114-910207-23-2021 16:11-0400Respiratory rate20 /Don Montoya MD Work Phone: [facility] [employer] Work Phone: 1([phone]) [phone] 16:11-4805AvX7% (BldA) [Mass fraction]96 % Pamela Montoya MD Work Phone: [facility] [employer] Work Phone: [phone] 16:11-0400Systolic blood gaqncavc045 mm[Hg] Pamela Montoya MD Work Phone: [facility] Work Phone: 1([phone]) 121-915206-20-2020 17:43-0400Body Syazgdlhnab67.4 [degF][place] [facility], XH00-11-2528 17:40-0400BP Kbtelxbid09 mm[Hg][facility], YG17-58-7227 17:40-0400BP Bfabaowq145 mm[Hg][facility] [place], OF79-06-0198 17:40-0400Pulse (Heart Rate)89 /minGurdeep [facility], AQ38-28-6414 17:40-0400Pulse Abehzala81 %Gurdeep [facility], MP46-05-3057 17:40-0400Respiratory Rate18 /minTyler [facility], [place] Encounters Encounter DateEncounter TypeCare ProviderFacilityStart: 02-07-2025 End: 20-85-6870etlfwrasczWxvgac E Braun MD Work Phone: -[facility]Start: 02-07-2025 End: 28-56-0845Gjurvdg encounter procedureRigoberto Mckinney MD-[facility] [place] Work Phone: Start: 01-27-2025 End: 29-99-1920Oywcpn flowslexisChtravis Gusman DPSteffany Work Phone: [facility] [place] [facility]ryStart: 01-27-2025 End: 94-63-1084Eecxwr Brittney Gusman DPM Work Phone: [facility] [place] [facility]iatryStart: 01-27-2025 End: 86-46-6548aklfavavdsVLKG W BURKETThe [facility] Hospitalroger [place] HospitalStart: 01-27-2025 End: 39-44-4684Tzcqdvxzow hospital visit by Adam Palma MD Work Phone: [facility] LabComment on above: 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); Varicose veins of bilateral lower extremities with painStart: 01-27-2025 End: 92-23-5453Znuwqb outpatient visit 15 minutesChristopher Fortino Gusman DPSteffany Work Phone: [facility] [place] PodiatryComment on above:Idiopathic progressive polyneuropathy (Primary Dx); Onychomycosis; Pain of toe of left foot; Hammer toe of left foot; Ulcer of left foot, limited to breakdown of skin (HCC)Start: 01-27-2025 End: 30-76-2524moizkselgcJXKGQHKFBQP J BOHACHNot AvailableStart: 01-19-2025 End: 60-87-8594ttdpanwnbxEFVHCAMetroHealth [facility] Medical Centertart: 01-19-2025 End: 10-23-8768Swbdbzydrm hospital visit by physicianKaren Laboratory Schedule [facility] LaboratoryComment on above:Shortness of breath; Edema of right lower leg; Edema of left footStart: 01-17-2025 End: 82-80-0792rrxunkmfexIMSOMWPeoples Hospitaltart: 01-17-2025 End: 05-88-7774Ojxhvstugc hospital visit by physicianZulma Rodriguez [address] [place] [address] Non-Invasive CardiologyComment on above:Chronic atrial fibrillation (HCC)Start: 01-06-2025 End: 63-33-3006tjeqnrsmjeJslkwugg A. JonesFacility:FTMCStart: 12-22-2024 End: 70-69-0155sadeapqikiNdkjot E Braun MD Work Phone: [facility] Work Phone: Start: 12-22-2024 End: 08-61-1751Ifnpquf encounter procedurePrabha Marmolejo APRN [facility] Work Phone: Start: 12-08-2024 End: 31-12-3208qjetqiegkwSkercf E Braun MD Work Phone: [facility] Work Phone: Start: 12-08-2024 End: 66-01-9933Ohkezfo encounter procedureFaizan Bragg MD-[facility] Work Phone: Start: 12-03-2024 End: 95-21-7043vqadpyxwknYauxltpg A. JonesFacility:FTMCStart: 11-18-2024 End: 88-46-6616Zqygpl outpatient visit 15 minutesChrisjarrod Gusman DPSteffany Work Phone: [facility] PodiatryComment on above:Corns and callosities (Primary Dx); Idiopathic progressive polyneuropathy; Hammer toe of left foot; Hallux valgus of left foot; Pain of toe of left footStart: 11-18-2024 End: 89-93-1856yssbepgaymHBOMGFQJMLE J BOHACHNot AvailableStart: 11-18-2024 End: 58-85-4747Tybrau flowsheetChristopher Fortino Gusman DPM Work Phone: [facility]iatryStart: 11-18-2024 End: 29-16-3065Ywkrwe flowsheetChristopher J Bohglo DPM Work Phone: [facility]iatryStart: 11-10-2024 End: 16-40-5165Zfgbnf flowsheetAlison Brian Marks PA Work Phone: [facility] [place] [facility]ermatologyStart: 11-10-2024 End: 77-51-3594Wbxudi flowsheetAlison Brian Marks PA Work Phone: [facility] [place] [facility]ermatologyStart: 11-10-2024 End: 81-03-6977Smhlmlg encounter procedureAlison Brian Marks PA Work Phone: [facility] [place] DermatologyComment on above:Actinic keratosis (Primary Dx); Inflamed seborrheic keratosisStart: 11-10-2024 End: 17-34-3983ygkopsxumvPHWAWV Brian Garcia AvailableStart: 10-05-2024 End: 90-71-5682Mjqlcalz SupportMechelle Ferguson Work Phone: [facility] AudiologyComment on above: Sensorineural hearing loss, bilateral (Primary Dx)Start: 10-05-2024 End: 73-49-8648Dkafsn outpatient new 30 minutesEric Joaquin Zayas MD Work Phone: [facility], Nose and Throat PhysiciansComment on above:Sensorineural hearing loss, bilateral (Primary Dx); Impaired auditory discrimination, bilateralStart: 09-27-2024 End: 07-66-7898Wwlnwh flowsFranciscotopher Fortino Gusman DPM Work Phone: [facility] PODIATRYStart: 09-27-2024 End: 02-02-7263Zfyjfi flowsheetChtravis Gusman DPM Work Phone: [facility] PODIATRYStart: 09-27-2024 End: 27-09-7987Pdnqbei encounter procedureChtravis Gusman DPM Work Phone: noms [facility] PODIATRYComment on above:Idiopathic progressive polyneuropathy (Primary Dx); OnychomycosisStart: 09-27-2024 End: 99-13-8497wrlthitnmgRCFDYNIHKWS J BOHACHNot AvailableStart: 09-09-2024 End: 76-16-0199Dbcqofk encounter procedureFaizan Bragg MD-[facility] Work Phone: Start: 08-06-2024 End: 46-53-7088lgppsfycqtDIFTQG [facility] HospitalStart: 08-06-2024 End: 89-56-1568Seupqmdyfc hospital visit by physicianFaizan Bragg MD Work Phone: [facility] LABComment on above:Elevated PSA Start: 07-29-2024 End: 28-26-0014Vvjlmg outpatient visit 15 minutesChtravis Gusman DPM Work Phone: noms [facility] PODIATRYComment on above:Ulcer of right heel and midfoot, limited to breakdown of skin (CMS/HCC) (Primary Dx); Abrasion of right heel with infectionStart: 07-29-2024 End: 64-39-7797sjhelhlvkqJNKBZPFMBUS J BOHACHNot AvailableStart: 07-29-2024 End: 05-42-9407Jgrwsl flowsheetChtravis Gusman DPM Work Phone: [facility] PODIATRYStart: 07-29-2024 End: 51-82-3830Nfnpfa flowsheetChkoffitopher Fortino Gusman DPM Work Phone: n[facility] PODIATRYStart: 07-15-2024 End: 01-96-3739Xohfwk flowsheetChtravis Gusman DPM Work Phone: n[facility] PODIATRYStart: 07-15-2024 End: 98-38-2734Kggxqy flowsGregg Gusman DPM Work Phone: n[facility] PODIATRYStart: 07-15-2024 End: 74-62-3804Pdwubb outpatient visit 15 minutesChrisjarrod Gusman DPM Work Phone: noms WWW PODIATRYComment on above:Ulcer of right heel and midfoot, limited to breakdown of skin (CMS/HCC) (Primary Dx); Idiopathic progressive polyneuropathy; Onychomycosis; Abrasion of right heel with infectionStart: 07-15-2024 End: 30-16-4143uqlkjueqydGHYZNMTLOUE J BOHACHNot AvailableStart: 06-23-2024 End: 31-19-0587fjthmtrugfXYBDNC [facility] Centertart: 06-23-2024 End: 63-74-5406Ilxkdyvblv hospital visit by physicianSteffanywh Additional Xray At [facility] RadiologyComment on above:Chest pain, unspecified type; Shortness of breath; Atrial flutter, unspecified type (HCC); Encounter for lipid screening for cardiovascular disease; Aortic valve stenosis, etiology of cardiac valve disease unspecified; Vitamin D deficiency disease; Other fatigueStart: 06-21-2024 End: 01-43-7947nvwtahvylwVthnkorcyWyandot Memorial Hospital Work Phone: Start: 06-21-2024 End: 00-73-0501Tsjnqwg encounter procedureCommunity Health Physician Group-[facility] Work Phone: Start: 06-14-2024 End: 15-99-1233Wcxutw flowsAnanth RIOS Work Phone: noms [facility] DERMStart: 06-14-2024 End: 79-55-4314Uoarju Alicia RIOS Work Phone: noms [facility]ZZ[facility] DERMStart: 06-14-2024 End: 99-95-8331Bjnkms outpatient visit 15 minutesAlison Brian RIOS Work Phone: noms TSR DERMComment on above:Other specified dermatitis (Primary Dx); Actinic keratosisStart: 06-14-2024 End: 26-45-4528cwbrdfjbzwUTWPUX Brian Garcia AvailableStart: 05-26-2024 End: 20-75-7470gniaeaxzlaNcmgucazjRegency Hospital [facility] Work Phone: Start: 05-26-2024 End: 92-41-3704Zkbxnlm encounter procedureCommunity Health Physician GroupParma [facility] Work Phone: Start: 05-13-2024 End: 40-03-7285Arixat flowsheetChkoffitopher Fortino Gusman DPM Work Phone: noms WWW PODIATRYStart: 05-13-2024 End: 50-89-3101Cjijga flowsheetChristopher Fortino Gusman DPM Work Phone: noms WWW PODIATRYStart: 05-13-2024 End: 72-34-2322Hfrslfc encounter procedureChristopher Fortino Gusman DPM Work Phone: noms WW[facility] PODIATRYComment on above:Idiopathic progressive polyneuropathy (Primary Dx); OnychomycosisStart: 05-13-2024 End: 85-97-8758ggacdbqmzwNQDDWQDFQWZ J BOHACHNot AvailableStart: 05-07-2024 End: 11-80-5591bnlfvapbewRkwixsbziRegency Hospital [facility] Work Phone: Start: 05-07-2024 End: 34-62-0625Kqrvpet encounter procedureCommunity Health Physician GroupParma [facility] Work Phone: Start: 05-04-2024 End: 21-68-3097hhcxcmihajWAVQFJ [facility] Centertart: 05-04-2024 End: 96-62-2172Cmvggdzqzr hospital [facility] Re[facility]ist 4 [facility] CARDIAC REHABComment on above:ArrivedStart: 05-03-2024 End: 31-91-8062ofjyhcfizdIFRYXJ AARONThe Bellevue Hospitalrgoer Rameshard HospitalStart: 05-03-2024 End: 02-57-9473Qvmhglfvar hospital [facility] 4 [facility] CARDIAC REHABComment on above:ArrivedStart: 45-41-8375kjozbjcbfxMAAJWR BRAUNMercy Manny HospitalStart: 04-30-2024 End: 38-02-5312rsofvdcyihJpyxcnpzuWyandot Memorial Hospital Work Phone: Start: 04-30-2024 End: 87-08-2654Vlaxiku encounter procedureWVUMedicine [facility] Work Phone: Start: 04-29-2024 End: 30-59-2383tsnwkfyfpnZYDAON [facility]ro[facility] HospitalStart: 04-29-2024 End: 30-39-8148Vubhdskdst hospital visit by physicianE[facility] Therapist 4 [facility] CARDIAC REHABComment on above:ArrivedShortness of breathStart: 04-27-2024 End: 92-07-4611adaavkkeyfIBDJKD BRAUNMerroger [facility] HospitalStart: 04-27-2024 End: 32-17-4004Rtirtshnon hospital visit by physicianE.[facility] Therapist 4 [facility] CARDIAC REHABComment on above:ArrivedStart: 04-26-2024 End: 38-51-6492qvsjesbzxjSJESBR [facility] HospitalStart: 04-26-2024 End: 88-34-5228Tqnnkardrf hospital visit by Bernardo Bragg MD Work Phone: m[facility]Z LaboratoryComment on above:Atrial flutter, unspecified type (HCC); Vitamin D deficiency; Encounter for lipid screening for cardiovascular disease; Aortic valve stenosis, etiology of cardiac valve disease unspecified; Fatigue, unspecified typeStart: 04-26-2024 End: 76-69-4486dgdwkidcqeUXJKAL AARONIdaliaroger Rameshard HospitalStart: 04-26-2024 End: 49-26-4059Hhucmzkgtq hospital visit by physicianE[facility] Therapist 4 [facility] CARDIAC REHABComment on above:ArrivedStart: 04-22-2024 End: 09-45-1023wmnmpbwrbcLDCHFJ BRAUNMercy Willard HospitalStart: 04-22-2024 End: 50-09-0745Pmdmuxowmp hospital visit by physicianE[facility] Therapist 4 [facility] CARDIAC REHABComment on above:ArrivedStart: 04-20-2024 End: 12-67-1834qozmugdsfrUPOGQBMemorial Hospital of Stilwell [facility] HospitalStart: 04-20-2024 End: 66-86-9594Zkpbpytvle hospital visit by physicianE.[facility] Therapist 4 [facility] CARDIAC REHABComment on above:ArrivedStart: 04-19-2024 End: 89-87-2456pcjbnwtsyxQIFBTW BRAUNMercy Willard HospitalStart: 04-19-2024 End: 42-93-0520Zvqampaujt hospital visit by physicianE[facility] Therapist 4 [facility] CARDIAC REHABComment on above:ArrivedStart: 04-15-2024 End: 23-42-7284dvzgpmqxftGTDZPN BRAUNMercy Willard HospitalStart: 04-15-2024 End: 14-98-4205Zqosssncpf hospital visit by physicianE.[facility] Re[facility] Therapist 4 [facility] CARDIAC REHABComment on above:ArrivedStart: 04-13-2024 End: 21-78-4746gyaysczdnqHXVQWS BRAUNMercy Willard HospitalStart: 04-13-2024 End: 03-97-8460Thomsxpskt hospital visit by physicianE.[facility] Therapist 4 [facility] CARDIAC REHABComment on above:ArrivedStart: 04-12-2024 End: 46-28-8119yxlqyspvheBAPWGY BRAUNMercy Willard HospitalStart: 04-12-2024 End: 53-76-7127Tifycxeerd hospital visit by physicianE.[facility] Therapist 4 [facility] CARDIAC REHABComment on above:ArrivedStart: 04-08-2024 End: 80-08-5365ftqochlrbtQOAZSJMemorial Hospital of [facility]ilwell – [facility] HospitalStart: 04-08-2024 End: 89-72-6298Noebanoxrp hospital visit by physicianE[facility] Therapist 4 [facility] CARDIAC REHABComment on above:ArrivedStart: 04-06-2024 End: 06-18-8884ljnoopegqyRJMRVF [facility] HospitalStart: 04-06-2024 End: 14-45-8908Peeuzncdbw hospital visit by physicianE[facility] 4 M[facility] CARDIAC REHABComment on above:ArrivedStart: 04-05-2024 End: 05-11-8612moixvwqlkbKAMKMY BRAUNMercy Willard HospitalStart: 04-05-2024 End: 14-26-5435Afzjhwxkkq [facility] 4 M[facility] CARDIAC REHABComment on above:ArrivedStart: 04-01-2024 End: 12-73-8259akwruiwbsbNSCUEK BRAUNMercy Willard HospitalStart: 04-01-2024 End: 14-09-0449Dhdfxbpayn hospital [facility] 4 M[facility] CARDIAC REHABComment on above:ArrivedStart: 96-13-6690vahnkmqgtbOWRHDV BRAUNMercy Willard HospitalStart: 03-30-2024 End: 66-12-4996lkvpbfyraoQIFAJQ BRAUNMercy Willard HospitalStart: 03-30-2024 End: 30-92-5419Ymhmgxiiad hospital [facility] physicianE[facility] 4 M[facility] CARDIAC REHABComment on above:ArrivedStart: 03-29-2024 End: 10-32-0295czljcbqetoRCBVYM [facility] Centertart: 03-29-2024 End: 04-92-0415Ayivwdojuv [facility] 4 M[facility] CARDIAC REHABComment on above:ArrivedStart: 03-25-2024 End: 33-61-3412srckvzdwmlXOHWMS BRAUNMercy Willard HospitalStart: 03-25-2024 End: 71-05-3367Xmbrxmciaf hospital [facility] Therapist 3 MWHZ CARDIAC REHABComment on above:ArrivedStart: 03-23-2024 End: 25-35-6443igqjahcsdtHTYPJKMetroHealth Cleveland Heights Medical Centertart: 03-23-2024 End: 99-86-6583Blvbykyich hospital visit by physicianE[facility] Therapist 4 MWHZ CARDIAC REHABComment on above:ArrivedStart: 03-22-2024 End: 39-66-8530gcpxkausxqCPLZJXTrinity Health System West Campustart: 03-22-2024 End: 68-50-7149Sfoxhdkdsb hospital visit by physicianE[facility] Card Re[facility] Therapist 4 MWHZ CARDIAC REHABComment on above:ArrivedStart: 03-16-2024 End: 91-55-3977Pagsxvx encounter procedureFirelands Physician GroupParma Community General Hospital Work Phone: Start: 03-14-2024 End: 59-05-3832Gqgxeauew department patient visitNEA Medical Center HospitalStart: 03-11-2024 End: 71-30-3402klyionhabgQTSPWRTrinity Health System West Campustart: 03-11-2024 End: 87-63-6859Vdffqlyxzy hospital visit by physicianE[facility] Therapist 4 MWHZ CARDIAC REHABComment on above:ArrivedStart: 03-10-2024 End: 34-61-3440Osnmlk flowsheetChristopher Fortino Gusman DPM Work Phone: noms WWW PODIATRYStart: 03-10-2024 End: 28-59-1181Wisppr flowsheetChristopher Fortino Gusman DPM Work Phone: noms WWW PODIATRYStart: 03-10-2024 End: 01-36-6182Cvwgxfz encounter procedureChristopher Fortino Gusman DPM Work Phone: noms WWW PODIATRYComment on above:Idiopathic progressive polyneuropathy (Primary Dx); OnychomycosisStart: 03-10-2024 End: 26-02-0892loxjdcnbnqLCNVDTNVELX J BOHACHNot AvailableStart: 03-09-2024 End: 79-68-0539llwipthlfmPWHMVMMetroHealth Cleveland Heights Medical Centertart: 03-09-2024 End: 39-47-6641Nqvgkrrmxm hospital visit by physicianE[facility] Card Re[facility] Therapist 4 MWHZ CARDIAC REHABComment on above:ArrivedStart: 03-08-2024 End: 14-10-5288Gswslg flowsheetNatalie Marks PA Work Phone: noms TSR DERMStart: 03-08-2024 End: 62-12-7304Hcfmpm flowsheetNatalie Marks PA Work Phone: noms TSR DERMStart: 03-08-2024 End: 10-52-4145fcuetgrergZVZMWR Brian MARKSNot AvailableStart: 03-08-2024 End: 70-53-2623Hdnizg outpatient visit 15 minutesAlison Brian Marks PA Work Phone: noms TSR DERMComment on above:Other specified dermatitis (Primary Dx); History of basal cell carcinoma; Personal history of squamous cell carcinoma of skin; Seborrheic keratosis; Actinic keratosis; Neoplasm of unspecified behavior of bone, soft tissue, and skinStart: 03-08-2024 End: 80-73-6209zksftwtizzAXOIRDMetroHealth Cleveland Heights Medical Centertart: 03-08-2024 End: 02-89-0154Tcmrsqhwno hospital visit by physicianE[facility] Re[facility] Therapist 4 MWHZ CARDIAC REHABComment on above:ArrivedStart: 03-04-2024 End: 08-61-2718yorgwfmlkeXPLCLLMetroHealth Cleveland Heights Medical Centertart: 03-04-2024 End: 33-33-8512Jofamjwrtg hospital visit by physicianE[facility] Card Rehab Therapist 4 MWHZ CARDIAC REHABComment on above:ArrivedStart: 03-03-2024 End: 80-47-4117esandxdnimUwrvthpu A. JonesFacility:FTMCStart: 03-03-2024 End: 11-54-0493Ftfvqpo encounter procedureDaniel Hair [facility] [place] Start: 03-02-2024 End: 67-21-3203sjpjfhioryRHVIHW [facility] Centertart: 03-02-2024 End: 17-94-5491Gdcsmjvscb hospital visit by physicianE[facility] Card Rehab Therapist 4 MWHZ CARDIAC REHABComment on above:ArrivedStart: 03-01-2024 End: 43-55-0780lzqkmpzxauYVDUZAMemorial Hospital of Stilwell – [facility]il[facility] HospitalStart: 03-01-2024 End: 15-14-1274Nhovlpcxdz hospital visit by physicianMwh Card Rehab Therapist 4 MWHZ CARDIAC REHABComment on above:ArrivedStart: 76-88-0955quadfbdkgcLOVGLPAllianceHealth Ponca City – [facility] HospitalStart: 02-24-2024 End: 46-60-4236Rgdo Maria Fernanda Hair [facility] [place] Start: 02-24-2024 End: 13-53-7266vpuejfdvhbMdupexip A. JonesFacility:FTMCStart: 02-24-2024 End: 60-52-3184Qllfoooxcc hospital visit by physicianMwh Card Rehab Therapist 4 MWHZ CARDIAC REHABComment on above:ArrivedStart: 02-23-2024 End: 24-13-5027vulmrunmadFIRSASMemorial Hospital of Stilwell – [facility]il[facility] HospitalStart: 02-23-2024 End: 04-14-4222Goimdpclur hospital visit by physicianMwh Card Rehab Therapist 4 MWHZ CARDIAC REHABComment on above:ArrivedStart: 02-19-2024 End: 20-25-1245wfgqocadugUMGWMCAllianceHealth [facility] City – [facility] HospitalStart: 02-19-2024 End: 85-81-6182Fdpzfftpdm hospital visit by physicianMwh Card Rehab Therapist 4 MWHZ CARDIAC REHABComment on above:ArrivedStart: 02-16-2024 End: 86-94-1243zgsuqwlibgNNOFXJMemorial Hospital of Stilwell – [facility] HospitalStart: 02-16-2024 End: 44-75-3197Nqvggabcji hospital visit by physicianMwh Card Rehab Therapist 4 MWHZ CARDIAC REHABComment on above:ArrivedStart: 02-12-2024 End: 76-53-1490azsxxjxqzjXQVMQLAllianceHealth [facility] – [facility] HospitalStart: 02-12-2024 End: 05-46-4142Gvgwsvkesr hospital visit by physicianMwh Card Rehab Therapist 4 MWHZ CARDIAC REHABComment on above:ArrivedStart: 02-10-2024 End: 95-64-6506paowipxzpdFDZMNO BRAUNThe Bellevue Hospitalroger Bryant HospitalStart: 02-10-2024 End: 25-40-6664Bbvxlnvybi hospital visit by physicianE[facility] Card Rehab Therapist 4 MWHZ CARDIAC REHABComment on above:ArrivedStart: 02-09-2024 End: 09-21-2646mebnykpamfTEHKLA BRAUNThe Belle[facility] Hospitalroger [facility] HospitalStart: 02-09-2024 End: 44-02-0602Fucpnojeog hospital visit by physicianE[facility] Card Rehab Therapist 3 MWHZ CARDIAC REHABComment on above:ArrivedStart: 02-05-2024 End: 37-79-5161ihufeopewaSHQXNK BRAUNThe [facility] Hospitalroger [facility] HospitalStart: 02-05-2024 End: 33-15-3562Vcmyrnrgle hospital visit by physicianE[facility] Card Rehab Therapist 3 MWHZ CARDIAC REHABComment on above:ArrivedStart: 02-03-2024 End: 93-17-8503elbumpmpbsNMIYPU BRAUNThe [facility] Hospitalroger [facility] HospitalStart: 02-03-2024 End: 59-30-8296Mbaqoldwja hospital visit by physicianE[facility] Card Rehab Therapist 1 MWHZ CARDIAC REHABComment on above:ArrivedStart: 02-02-2024 End: 51-89-0144fcunhsmuhbVRSKGO BRAUNThe [facility] Hospitalroger [facility] HospitalStart: 02-02-2024 End: 15-66-0303Rmbrxhthjv hospital visit by physicianE[facility] Card Rehab Therapist 3 MWHZ CARDIAC REHABComment on above:ArrivedStart: 01-28-2024 End: 52-21-8289cqvkqqibgoApucqmfaxRegency Hospital [facility] Work Phone: Start: 01-28-2024 End: 36-08-3927Qzpfglv encounter procedureCommunity Health Physician GroupParma Community General Hospital Work Phone: Start: 01-23-2024 End: 30-57-6136vlekkntpyrORATPQZ SCOTT [facility] HospitalStart: 01-22-2024 End: 42-56-1655dggepuxhhpIpigorsr A. JonesFacility:FTMCStart: 01-22-2024 End: 00-95-8642Gvckkmy encounter procedureDaneil Hair [facility] [place] Start: 01-20-2024 End: 73-79-3158rziqwvpqcaJmshkzit A. JonesFacility:FTMCStart: 01-20-2024 End: 52-18-0236Hsdi ManagementDaniel Hair [facility] Start: 12-23-2023 End: 78-29-3509Xzdcecdrye hospital visit by physicianWing Álvarez MD Work Phone: [facility] Nuclear MedicineComment on above: ArrivedStart: 12-22-2023 End: 97-45-1296Hoapqoicxv hospital visit by Bernardo Bragg MD Work Phone: mwhz LaboratoryComment on above:Atrial flutter, unspecified type (HCC); Vitamin D deficiency; Encounter for lipid screening for cardiovascular disease; Fatigue, unspecified typeStart: 12-17-2023 End: 05-26-4236Kmcqqwv encounter procedureDaniel Hair [facility] Start: 12-12-2023 End: 26-99-1595Jpgeejtjwp hospital visit by physicianWing Álvarez MD Work Phone: [facility] Non-Invasive CardiologyComment on above:Shortness of breathStart: 12-02-2023 End: 64-54-5988Yhzugp flowsheetChtravis Gusman DPSteffany Work Phone: noms WWW PODIATRYStart: 12-02-2023 End: 95-85-5724Ddlkdt flowsheetChtravis uGsman DPSteffany Work Phone: noms WWW PODIATRYStart: 12-02-2023 End: 65-72-1995Cgicuug encounter procedureChtravis Gusman DPM Work Phone: [facility] PODIATRYComment on above:Idiopathic progressive polyneuropathy (Primary Dx); OnychomycosisStart: 11-24-2023 End: 67-70-4385Euns ManagementDaniel Hair [facility] Start: 76-82-4407Atqgoku encounter procedurePremier Health Miami Valley Hospital Northtart: 11-19-2023 End: 80-58-2737wbnrhiwvhhNtrewgouw [facility] Work Phone: Start: 11-19-2023 End: 97-98-7502Ojaunan encounter procedureCommunity Health Physician GroupParma Community General Hospital Work Phone: Start: 10-28-2023 End: 98-55-4559Iqsz ManagementDaniel Hair [facility] Start: 09-17-2023 End: 59-80-7059Nvsx ManagementHeavenly Mahoney [facility] [place] Start: 09-08-2023 End: 13-09-7246Cdth ManagementDaniel Hair [facility] Start: 08-11-2023 End: 59-67-8566Sxwl Adam Mahoney [facility] Start: 08-04-2023 End: 74-39-0324Zxbg ManagementDaniel Hair [facility] Start: 07-03-2023 End: 59-39-1905Chwgcnr encounter Whit Hair [facility] Start: 07-03-2023 End: 07-63-4055Cjqm ManagementFidenciomando Hair [facility] Start: 04-11-2023 End: 25-00-1778saorvmifopYtmtai Braun Other [employer] Other Start: 05-28-2708Fbqhijk encounter procedureFaizan [facility] ClinicStart: 04-08-2023 End: 65-25-0025rrueujnnirLbdrqs Braun Other [employer] Other Start: 12-51-6127Gqtiqx outpatient visit 15 minutes Faizan [facility] Hospitaltart: 11-14-2022 End: 02-33-6052znzoqruwkiXajvhb Braun Other [employer] Other Start: 57-35-2678Yucqafhcf encounterMarnancy [facility] ClinicStart: 10-29-2022 End: 72-43-8339sblphzdzktWmdftz Braun Other [employer] Other Start: 58-08-1218Jzigrxgkf encounterMarnancy [facility] ClinicStart: 08-30-2022 End: 75-17-7507Pdwkwothah hospital visit by physicianMwh Additional Xray At [...] type (HCC); Vitamin D deficiencyStart: 07-12-2022 End: 21-65-6380egbszkudreRT FAIZAN BRAGGFacility:C4Sgxxx: 07-11-2022 End: 42-55-2541ixxmpflttlTY FAIZAN BRAGGFacility:H8Vjcho: 27-58-1234Nfezay outpatient visit 15 minutesMarcigalo [facility] ClinicStart: 07-09-2022 Telephone encounterMarcia AaronOskar [facility] Brownwoodtart: 07-09-2022 End: 02-05-0961jgpwaniwngZO FAIZAN Hernandez Trend[employer] Other Start: 07-01-2022(Televisit) TelevisitMarcia [facility] Hospitaltart: 07-01-2022 End: 58-67-9798yzemxhajcwLaqejo Bragg Other [employer] Other Start: 05-29-2022 End: 05-57-3480fjxaadbtbjPnssji Bragg Other [employer] Other Start: 49-00-1953Yjegztpsz encounterMarcia [facility] Hospitaltart: 05-27-2022 End: 65-44-5893iiuidwlhmmZbwpuy Bragg Other [employer] Other Start: 82-56-3337Qcxjezhel encounterMarcia [facility] Hospitaltart: 85-35-1656Fmfditn encounter procedureMarcia [facility] Hospitaltart: 05-22-2022 End: 25-35-6011oqccfizssgMV FAIZAN Hernandez Trendabl [employer] Other Start: 04-19-2022 End: 56-96-9495zelntoaxrcFuxwku Bragg Other [employer] Other Start: 53-85-3129Ekxyaxnvy encounterMarcia [facility] Hospitaltart: 12-06-2021 End: 96-47-0236Jnaflxbfdw hospital visit by physicianE[facility] Covid19 Pat Screening ScheduleMWHZ PRE ADMITComment on above:Suspected COVID-19 virus infection; Cough; Runny noseStart: 11-14-2021 End: 61-87-6465Xaiswswpmd hospital visit by Dominic BLACK Work Phone: MWHZ Occupational TherapyComment on above:Arrived Start: 11-12-2021 End: 51-88-7765Cuuwioffjz hospital visit by Joann BLACKGUTHRIE CORTLAND MEDICAL CENTERLiborio Occupational TherapyComment on above:ArrivedStart: 11-09-2021 End: 63-06-2400Xtlbprlqgx hospital visit by Raya GONZALEZLiborio Occupational TherapyComment on above:ArrivedStart: 11-07-2021 End: 50-66-0225Mnuarvgbyd hospital visit by Shara GONZALEZLiborio Occupational TherapyComment on above:ArrivedStart: 11-05-2021 End: 61-34-0755Rrfrusorgj hospital visit by Shara GONZALEZLiborio Occupational TherapyComment on above:ArrivedStart: 11-02-2021 End: 21-64-7079Oomgnbvegw hospital visit by Shara GONZALEZLiborio Occupational TherapyComment on above:ArrivedStart: 10-30-2021 End: 05-42-4536Ndlrjpfyts hospital visit by Shara OTERO Occupational TherapyComment on above:ArrivedStart: 10-29-2021 End: 66-15-4046Xuillmunbz hospital visit by Shara GONZALEZLiborio Occupational TherapyComment on above:ArrivedStart: 10-24-2021 End: 33-30-3937Btkhqvawne hospital visit by Shara OTERO Occupational TherapyComment on above:ArrivedStart: 10-23-2021 End: 35-06-9489Htanndqxp to same day surgery centerMD Faizan Bragg Work Phone: [facility]-Digestive HealthStart: 10-22-2021 End: 20-79-4665Nxrwkqhrns hospital visit by Joann SULiborio Occupational TherapyComment on above:ArrivedStart: 10-19-2021 End: 58-64-0180Alcqhox encounter procedureMD Faizan Aaron Work Phone: [facility]-Pre-S[facility] Start: 10-19-2021 End: 86-94-6194Pmufecyjqt hospital visit by Shara OTERO Occupational TherapyComment on above:ArrivedStart: 10-17-2021 End: 78-20-9785Pgenkcyhws hospital visit by Shara OTERO Occupational TherapyComment on above:ArrivedStart: 10-16-2021 End: 79-26-2648Wknzyshxij hospital visit by Shara OTERO Occupational TherapyComment on above:ArrivedStart: 10-12-2021 End: 82-43-0154Urctrfmdvb hospital visit by Shara OTERO Occupational TherapyComment on above:ArrivedStart: 10-08-2021 End: 60-36-0238Ofqpjnduxc hospital visit by Dominic BLACK Work Phone: mWHZ Occupational TherapyComment on above:Arrived Start: 10-05-2021 End: 28-66-4925Uurciqhdtf hospital visit by Shara OTERO Occupational TherapyComment on above:ArrivedStart: 10-04-2021 End: 52-21-4685dbfsolakltXaimexu Ditty Other [place] [employer] Other Start: 79-88-8267ARWF visit new patientMik Chandlernaheed [facility] GastroenterologyStart: 10-02-2021 End: 12-77-8129Dmponyagzd hospital visit by Shara OTERO Occupational TherapyComment on above:ArrivedStart: 09-26-2021 End: 77-38-0203Uwbbjdxbsh hospital visit by Shara OTERO Occupational TherapyComment on above:ArrivedStart: 09-25-2021 End: 75-73-1330Cldgskhqpe hospital visit by Shara GONZALEZLiborio Occupational TherapyComment on above:ArrivedStart: 09-21-2021 End: 93-14-1810Exzznlgpeo hospital visit by Shara OTERO Occupational TherapyComment on above:ArrivedStart: 09-19-2021 End: 41-77-1896Psqfnizotl hospital visit by Shara OTERO Occupational TherapyComment on above:ArrivedStart: 09-14-2021 End: 06-58-1123Mpdczkpewe hospital visit by Dominic BLACK Work Phone: mWHO Occupational TherapyComment on above:Arrived Start: 09-12-2021 End: 92-98-0509Hsmuoejilv hospital visit by Shara OTERO Occupational TherapyComment on above:ArrivedStart: 09-10-2021 End: 35-75-8951Xnslnzwmur hospital visit by Shara OTERO Occupational TherapyComment on above:ArrivedStart: 09-07-2021 End: 23-70-8571Jftpyyqstm hospital visit by Shara GONZALEZLiborio Occupational TherapyComment on above:ArrivedStart: 09-05-2021 End: 67-03-4442Olzotqngil hospital visit by Shara OTERO Occupational TherapyComment on above:ArrivedStart: 09-04-2021 End: 35-89-2135Yknysqrpui hospital visit by Shara GONZALEZLiborio Occupational TherapyComment on above:ArrivedStart: 09-03-2021 End: 46-00-3804Zutyazgqke hospital visit by Bernardo Bragg MD Work Phone: mWHL RESPIRATORY THERAPYComment on above:Vitamin D deficiency; Encounter for lipid screening for cardiovascular disease; Atrial flutter, unspecified type (HCC)Start: 75-27-4951Tiinu health examination Faizan Bragg Other [facility] [employer] Other Start: 08-22-2021 End: 14-25-2686iyfiykldqwGN MARCIA E BRAUNFacility:L7Kzqqg: 07-16-2021 End: 58-20-2690xmpmcnpyvfAoywbx SkieFacility:UTMCStart: 40-79-8550Wqsmfejjg encounterSkaterine Manzanares MD Work Phone: Hematology/OncologyComment on above:Care Coordination (appointment question)Start: 84-69-4677Gcsvtmgay encounterRuben Tellez RN Hematology/OncologyComment on above:ResultsStart: 57-00-5609Tzwfocdij encounter Ketan Manzanares MD Work Phone: Cancer Appts MCComment on above:Referral Information (GI)Start: 07-02-2021 End: 42-17-2156iouxpggxvjLelftcfzg Kunte MD Work Phone: Hematology/OncologyComment on above:Normocytic anemia (Primary Dx); MGUS (monoclonal gammopathy of unknown significance)Start: 07-02-2021 End: 04-54-8123Pgmrqlv encounter procedureSkaterine Manzanares MD Work Phone: SANDUSKYStart: 12-14-2020 End: 34-29-8659Gnqzlgwyxc hospital visit by Bernardo Bragg MD Work Phone: mwhz LaboratoryComment on above:Fatigue, unspecified type; Leg edema; Discoloration of skin of lower legStart: 12-14-2020 End: 11-72-5763Bpuctidpzq hospital visit by Bernardo Bragg MD Work Phone: mwhz LaboratoryComment on above:Abnormal EKGStart: 10-23-2020 End: 41-97-0363Dgxcxtlmno hospital visit by Bernardo Bragg MD Work Phone: mwhz RESPIRATORY THERAPYComment on above:Abnormal EKG Start: 10-23-2020 End: 81-29-9890Ckcslwxurr hospital visit by Bernardo Bragg MD Work Phone: mwhz LaboratoryComment on above:Atrioventricular septal defect (AVSD); Aortic valve stenosis, etiology of cardiac valve disease unspecified; Atrial flutter, unspecified type (HCC); Abnormal EKG; Encounter for lipid screening for cardiovascular disease; Vitamin D deficiency; Fatigue, unspecified typeStart: 10-20-2020 End: 74-05-8263Sawmpxlka department patient visitPamela Montoya MD Work Phone: [facility] EDComment on above:Vasculitis (HCC) (Primary Dx); Essential hypertension; Peripheral edema; Chronic obstructive pulmonary disease, unspecified COPD type (HCC)Start: 08-11-2020 End: 63-51-2827Wscfbukqqc hospital [facility] physicianE[facility] Adam19 Pat Screening ScheduleMWHZ PRE ADMITComment on above:ArrivedStart: 08-08-2020 End: 46-54-7876Eoxotaytxb hospital visit by physicianE[facility] Echo Room [facility] Hospitalnaheed [facility] ECHOComment on above:Atrioventricular septal defect (AVSD); Aortic valve stenosis, etiology of cardiac valve disease unspecifiedStart: 07-27-2020 End: 70-81-3073Ybbjyrbzgkrvo examination done[address] Radiology Start: 07-27-2020 End: 60-79-9012Badokixzfv hospital visit by physicianE[facility] Tejal Zimmerman 1MZ RESPIRATORY THERAPYComment on above:Atrioventricular septal defect (AVSD); Aortic valve stenosis, etiology of cardiac valve disease unspecified; Atrial flutter, unspecified type (HCC); Abnormal EKG; Encounter for lipid screening for cardiovascular disease; Vitamin D deficiencyAbnormal EKG; Pre-op evaluation; Encounter for lipid screening for cardiovascular disease; Fatigue, unspecified typeStart: 06-28-2020 End: 51-65-1239Iftczndjzb hospital visit by [facility] Mri [facility] MRIComment on above:ArrivedStart: 04-25-2020 End: 89-15-7712DxkmzkChidi Banuelos Work Phone: [facility] Start: 12-24-2019 End: 18-87-0484Nizeykdmcg hospital visit by Soniya Fisher Physical TherapyStart: 12-22-2019 End: 30-67-5721Ffbebqyilx hospital visit by Kathleen Choi Physical TherapyComment on above:No ShowStart: 12-21-2019 End: 83-40-9768Moxcqmkdsh hospital visit by physicianGary North Physical TherapyComment on above:Canceled (Error)Start: 12-16-2019 End: 23-12-4981Ajdvxufagj hospital visit by physicianKate Choi Physical TherapyComment on above:ArrivedStart: 12-15-2019 End: 08-85-5911Bufijmglif hospital visit by physicianKate Choi Physical TherapyComment on above:ArrivedStart: 12-13-2019 End: 95-25-6790Oqaahwwlvh hospital visit by physicianGary North Physical TherapyComment on above:ArrivedStart: 12-10-2019 End: 07-50-7924Ejtnwphrbb hospital visit by physicianGary North Physical TherapyComment on above:ArrivedStart: 12-08-2019 End: 60-28-6730Vsuchvshby hospital visit by physicianGary North Physical TherapyComment on above:ArrivedStart: 12-03-2019 End: 95-85-3448Rsighgdrun hospital visit by physicianGary North Physical TherapyComment on above:ArrivedStart: 12-01-2019 End: 07-24-1881Uuddgrvhte hospital visit by physicianGary North Physical TherapyComment on above:ArrivedStart: 11-29-2019 End: 73-24-8248Qeprlhmiza hospital visit by physicianKate Choi Physical TherapyComment on above:ArrivedStart: 11-03-2019 End: 15-38-4093Fjohuax encounter procedureSUNIVERSITY [facility] MATI [facility] HospitalStart: 11-03-2019 End: 40-09-1303Ezkxqzzhyf hospital visit by Tato Hernandez Work Phone: [facility] MRIComment on above: Bilateral optic atrophyStart: 10-18-2019 End: 46-76-6982Mkprjrl encounter procedureSUNIVERSITY HOSPITALS GEAU[facility] MATI BushSt. Vincent Fishers Hospitaltart: 09-18-2019 End: 01-24-6126Bmvtosgab department patient visitGurdeep Velasquez Work Phone: [facility] EDComment on above:Compression fracture of thoracic vertebra, initial encounter, unspecified thoracic vertebral level (HCC) (Primary Dx); Closed head injury, initial encounterStart: 25-28-9919YjgdjilaepKEKDOK LYNN BRUNATFacility:[facility] Procedures DateProcedureProcedure DetailPerforming ClinicianStart: 89-51-7939Zsg-scan xtr veins complete bilateral studyArturo Palma MD Work Phone: start: 36-53-8556Tbx-scan xtr veins complete bilateral studyPanaaa Juan Jose Clark EDUCATIONAL ASSISTANT - LINE PULLER Work Phone: Start: 98-70-6492Gfxmi metabolic panel calcium total Miesha Juan Jose Clark EDUCATIONAL ASSISTANT - LINE P[employer]ER Work Phone: Start: 46-64-5567UFW w or wo fol wcon,DopplerPanaaa Juan Jose Shaw EDUCATIONAL ASSISTANT - LINE PULLER Work Phone: Start: 11-10-2024 End: 11-76-8789WLWIJMTMZDN SKIN LESIONAlison Brian RIOS Work Phone: Start: 68-62-3215Fxgph of prostate specific antigen totalThomas Nathan DE LA PAZ Work Phone: Start: 43-70-0042Gaojpaizbz exam chest 2 viewsPanaaa Juan Jose Clark EDUCATIONAL ASSISTANT - LINE PULLER Work Phone: Start: 78-90-0517XHRPAQEZUGR SKIN LESIONAlison L Brooke PA Work Phone: Start: 57-29-2919Xeaqiaqvld exam chest 2 viewsPanaaa Juan Jose Clark EDUCATIONAL ASSISTANT - LINE PULLER Work Phone: Start: 09-50-3556Dcujactmfhydf metabolic panelWing Álvarez MD Work Phone: Start: 29-01-9625Taxez panelGreg Juan Jose Álvarez MD Work Phone: Start: 46-83-2084NVPN / NAIL BIOPSYAlison Brian RIOS Work Phone: Start: 31-64-5890VQLUCQSKFBB SKIN LESIONAlison L Brooke RIOS Work Phone: Start: 55-08-5143Puxkeknwr into facet joint of cervical spine using fluoroscopic guidanceDaniel Hair start: 51-18-0249Bvgrjview of facet joint using fluoroscopic guidanceDaniel Hair comment on above:C5-7Start: 23-79-7589Hjnbusbrav spect multiple studiesGreg Juan Jose Álvarez MD Work Phone: Start: 84-75-5437Elbhbyjkuxpvi metabolic panelGreg Juan Jose Álvarez MD Work Phone: Start: 68-82-7765Dpxzh panelGreg Juan Jose Álvarez MD Work Phone: Start: 46-87-1713Qgfw tthrc r-t 2d w/wom-mode compl spec&colr dGreg Juan Jose Álvarez MD Work Phone: Start: 49-84-8021Rzqqimpvhgvadk ablation of medial branch of cervical nerve using fluoroscopic guidanceDaniel Hair comment on above:50% relief to currentStart: 10-28-2023 Radiofrequency ablation of medial branch of cervical nerve using fluoroscopic guidanceDaniel Hair comment on above:50% relief to currentStart: 09-08-2023 Injection into facet joint of cervical spine using fluoroscopic guidanceHeavenly Mahoney comment on above:80% reliefStart: 61-55-9433Idumrmqrd into facet joint of cervical spine using fluoroscopic guidanceHeavenly Mahoney comment on above:80% reliefStart: 91-81-5714Nki routine ecg w/least 12 lds w/i&rGreg Juan Jose Álvarez MD Work Phone: Start: 20-19-9906Gyahizstlp exam chest 2 viewsGreg Juan Jose Álvarez MD Work Phone: Start: 08-18-0653Yfmywhupipbte metabolic panelGreg Juan Jose Álvarez MD Work Phone: Start: 01-27-7398Atlja panelGreg Juan Jose Álvarez MD Work Phone: Start: 87-84-0392QRMSMVU FASTING?Wing Álvarez MD Work Phone: Start: 68-76-5443AHQ screeningDR FAIZAN BRAGGComment on above:Performed By: #### PSASC #### [facility] 76 [place] [address] Dr. Carolina NamStart: 19-00-1217RDQDR-19, Samanta Bauman EDUCATIONAL ASSISTANT - LINE PULLER Work Phone: Start: 36-76-9752LonlpdphcshchgfmuancatfxhpBM Faizan Bragg Work Phone: Start: 48-38-1104Vst routine ecg w/least 12 lds w/i&r iWng Álvarez MD Work Phone: Start: 60-83-9424Pmjie of ferritinGreg Juan Jose Álvarez MD Work Phone: Start: 86-51-6000C-reactive proteinGreg Juan Jose Álvarez MD Work Phone: Start: 90-83-1972Ywjyd dip stick/tablet rgnt auto w/o microscopyGreg Juan Jose Álvarez MD Work Phone: Start: 07-68-5879EZKNRTL B12 & FOLATEGreg Juan Jose Álvarez MD Work Phone: Start: 35-12-2286Ewt routine ecg w/least 12 lds w/i&r Wing Álvarez MD Work Phone: Start: 23-94-6337Pdxkkqwoaegxe metabolic panelWing Álvarez MD Work Phone: Start: 84-01-8598Ewu routine ecg w/least 12 lds w/i&r Wing Álvarez MD Work Phone: Start: 30-12-4592Xoathbjhtw exam chest 2 viewsPamela Montoya MD Work Phone: Start: 39-04-4963Rbn routine ecg w/least 12 lds w/i&r Pamela Montoya MD Work Phone: Start: 09-65-3624Nvertipejwp peptidePamela Montoya MD Work Phone: Start: 92-34-8918UQGRU-19, Jia Bragg MD Work Phone: Start: 54-98-9214Ihm routine ecg w/least 12 lds w/i&r Wing Álvarez MD Work Phone: Start: 44-07-2451Sgirxnghal exam chest 2 viewsWing Álvarez MD Work Phone: Start: 15-36-5087Zwdma metabolic panel calcium total Torrey Griggs MD Work Phone: Start: 16-34-4350Jan spinal canal lumbar w/o contrast materialDerek L [place] Work Phone: start: 04-04-3389Azc brain brain stem w/o w/contrast materialSteven Mati Hernandez Work Phone: start: 15-67-6519Oy thoracic spine w/o contrast materialTyler Ron Work Phone: Start: 06-54-5690Qw cervical spine w/o contrast materialTyler Ron Work Phone: Start: 38-12-4069Vn head/brain w/o contrast material Gurdeep Ron Work Phone: Start: 17-33-7345Vqabagm and physical examination, Lilly Bragg Other Start: 10-39-3945Mtlqltwxt for malignant neoplasm of prostateGilliancia Aaron Other Screening for malignant neoplasm of prostateGilliancia Aaron Other Plan of Treatment DateCare ActivityDetailAuthorStart: 85-21-4779NNbD/Tdap/Td vaccine (2 - Td or Tdap)DTaP/Tdap/Td vaccine (2 - Td or Tdap)MARYAM [facility]: 56-65-2061LVkS/Tdap/Td vaccine (2 - Td)DTaP/Tdap/Td vaccine (2 - Td)[facility]: 29-11-5827Hzcqwfd vaccinationTetanus: Every 10yrsOhioHealth Start: 08-16-2025 End: 94-11-6764Tvirxuf encounter gpocdexos72/19/2026 10:00 AM EDT Office Visit [facility] [address] [place] [address] Chente Lyons, PAEdwniaC [address] [facility] [address] [place] [address] 1 year [facility] Part [facility] HospitalComment on above:1 year PSAStart: 04-28-2025 End: 09-70-8700Klnkjxd encounter hqsjmckdo58/29/2026 9:30 AM EST Office Visit [facility] Artist [address] [place] [phone] Miesha Clark, EDUCATIONAL ASSISTANT - LINE PULLER [address] [place] [address] 1 year follow up labs ekg cxrMercy Cardiology SpecialistComment on above:1 year follow up labs ekg cxrStart: 37-29-9719Srkul panelLipidsBon [facility] CenterStart: 04-04-2025 End: 84-34-9794Axwiczd encounter /05/2026 9:45 AM EST Procedure Visit [facility] [address] [place] [address] Carol Gusman, DPSteffany [address] [place] [address] MARUJuan Jose RameshSaint Louis PodiatryStart: 03-11-2025 End: 38-49-1534Vieltfn encounter vcldehjrt70/12/2025 11:30 AM EST Office Visit [facility] [address] [place] [address] Natalie Marks, PA [address] [place] [address] [facility] TSR DERMStart: 03-11-2025 End: 63-82-0204Pvjvgym encounter procedureNOMS TSR DERMStart: 02-28-2025 End: 89-26-8050Dapyfsm encounter wckctuazk85/01/2025 10:30 AM EST Office Visit [facility] [address] [place] [address] Carol Gusman DPM [address] [place] [address] MARUJuan Jose [facility] PodiatryStart: 02-16-2025 End: 77-41-0785Fnftdud encounter fvbixlxxc16/19/2025 1:45 PM EST Office Visit [address] [place] [address] Arturo Palma MD [address] [place] [address] [address] [place] [address] 3 week follow up after Vascular studyThe Jewish HospitalComment on above:3 week follow up after Vascular studyStart: 02-09-2025 End: 62-12-1943Tvmeqem encounter pdkcseiea24/12/2025 9:45 AM EST Office Visit [address] [place] [address] Arturo Palma MD [address] [place] [address] Dr [address] [place] [address] Edema [facility] right [facility]ULAR Part of [place] HospitalComment on above:Edema of right lower legStart: 02-02-2025 End: 20-64-1505Zosjxcl encounter idydfqjdq56/05/2025 10:30 AM EST Office Visit [facility] Story[facility] Artist [address] [facility] [place] [address] Miesha Clark, EDUCATIONAL ASSISTANT - LINE PULLER [address] [facility] [place] [address] 2 week follow up [facility] Cardiology SpecialistComment on above:2 week follow up bmpStart: 01-27-2025 End: 44-09-8174Qbweakq encounter procedureNOMS [facility] PODIATRYComment on above: ArrivedStart: 05-72-4822Gymip panelLipidsBon [facility] CenterStart: 66-03-8159EDDQN-19 Vaccine ( season)COVID-19 Vaccine ( season)Bon [facility] CenterStart: 87-49-5278Zsjzkvxnh vaccinationInfluenza Vaccine (#1)[facility]Start: 11-18-2024 End: 84-28-9076Mgrmeox encounter pvncwicxy17/21/2025 2:15 PM EDT Office Visit [facility] [address] [place] [address] Carol Gusman DPSteffany [address] [place] [address] ArrivedFOUZIA Bryant PodiatryComment on above:Arrived Start: 11-10-2024 End: 56-96-6118Mfibfmb encounter qvphjkxox08/13/2025 10:50 AM EDT Office Visit [facility] [address] [place] [address] Natalie Marks, PA [address] [address] ArrivedGUZMANUniversity of Michigan Health DermatologyComment on above:ArrivedStart: 09-27-2024 End: 98-40-2593Wecurrg encounter procedureNOMS WWW PODIATRYComment on above: ArrivedStart: 08-31-2024 End: 58-97-8696Mzdsktm encounter procedureCleveland Clinic Foundation Cardiology SpecialistComment on above:1 year follow up labs ekg cxrStart: 08-16-2024 End: 11-59-8774Viiyfvg encounter /19/2025 9:30 AM EDT Office Visit [facility] [address] [place] [address] Sharee Evans MD [address] [facility], [address] [place] [address] 6 month [facility] Medical CenterComment on above:6 month psaStart: 07-29-2024 End: 08-49-1924Arkgrcm encounter procedureNOMS WWW PODIATRYComment on above: ArrivedStart: 07-15-2024 End: 18-85-6404Hgogouc encounter procedureNOMS WWW PODIATRYComment on above: ArrivedStart: 49-56-0395FURZQCYY SCREENDIABETES SCREENSelect Medical Specialty Hospital - Akronveland ClinicStart: 06-14-2024 End: 00-24-8236Rkxmbsb encounter procedureNOMS TSR DERMComment on above:Arrived Start: 96-13-7740Xbkvnana vaccine (2 of 2)Shingles vaccine (2 of 2)Bon [facility]inaours [facility] HospitalStart: 05-17-2024 End: 76-50-5759Zvnamnv encounter fosfdzzet99/17/2025 9:00 AM EST Appointment [facility] [address] [place] [address] EGYE CARDIAC REHABStart: 05-13-2024 End: 06-25-7388Zdbccoy encounter procedureMWHZ CARDIAC REHABComment on above: ArrivedStart: 05-11-2024 End: 78-30-7052Hvwkqej encounter axbqddget82/11/2025 9:00 AM EST Appointment [facility] [address] [place] [address] VSJW CARDIAC REHABStart: 05-10-2024 End: 85-20-8053Wnvkxwd encounter koeoddsnj14/10/2025 9:00 AM EST Appointment [facility] [address] [place] [address] ZFBY CARDIAC REHABStart: 05-06-2024 End: 23-91-2324Cwnolew encounter hnjneslks09/06/2025 9:00 AM EST Appointment [facility] [address] [place] [address] ZLIT CARDIAC REHABStart: 05-04-2024 End: 62-88-9230Woginvo encounter xjuggtxph35/04/2025 9:00 AM EST Appointment [facility] [address] [place] [address] VTME CARDIAC REHABStart: 05-03-2024 End: 90-66-9191Ehdwhmh encounter qjwaxlfzg97/03/2025 9:00 AM EST Appointment [facility] [address] [place] [address] REJI CARDIAC REHABStart: 04-29-2024 End: 42-48-8612Archzmi encounter procedureMercy Cardiology SpecialistComment on above:3 mth follow up labsStart: 04-27-2024 End: 60-07-6142Wwjqdve encounter ftddamnqv06/28/2025 9:00 AM EST Appointment [facility] [address] [place] [address] WRQU CARDIAC REHABStart: 04-26-2024 End: 96-78-4226Bqqavic encounter ahepmrmvb41/27/2025 9:00 AM EST Appointment [facility] [address] [place] [address] RQZE CARDIAC REHABStart: 04-22-2024 End: 02-76-5800Yjrfbmk encounter purcuiwwq50/23/2025 9:00 AM EST Appointment [facility] [address] [place] [address] VPCH CARDIAC REHABStart: 04-20-2024 End: 56-55-5841Hdfndxq encounter ufxbzwcjg95/21/2025 9:00 AM EST Appointment [facility] [address] [place] [address] BGIW CARDIAC REHABStart: 04-19-2024 End: 74-41-5872Bhxdwqz encounter uixbosnpv55/20/2025 9:00 AM EST Appointment [facility] [address] [facility] [place] [address] JERE CARDIAC REHABStart: 04-15-2024 End: 74-59-8886Admganl encounter bxqnermjx73/16/2025 9:00 AM EST Appointment [facility] [address] [facility] [place] [address] UUFW CARDIAC REHABStart: 04-13-2024 End: 82-37-1178Txxsnmd encounter yypdzxslj55/14/2025 9:00 AM EST Appointment [facility] [address] [facility] [place] [address] CMCQ CARDIAC REHABStart: 04-12-2024 End: 88-26-7815Nmbzbew encounter kqhyqlkut67/13/2025 9:00 AM EST Appointment [facility] [address] [facility] [place] [address] FZFC CARDIAC REHABStart: 04-08-2024 End: 40-11-0902Jfdrwvg encounter bosmuqbln54/09/2025 9:00 AM EST Appointment [facility] [address] [facility] [place] [address] AZJI CARDIAC REHABStart: 04-06-2024 End: 73-27-7215Ogmmupx encounter qiellcqxi63/07/2025 9:00 AM EST Appointment [facility] [address] [facility] [place] [address] YAJZ CARDIAC REHABStart: 04-05-2024 End: 76-71-8863Gnqnvsm encounter pbkhkenbc45/06/2025 9:00 AM EST Appointment [facility] [address] [facility] [place] [address] PRNG CARDIAC REHABStart: 04-01-2024 End: 21-97-5347Szpgwxm encounter gzhaabpke73/02/2025 9:00 AM EST Appointment [facility] [address] [place] [address] LENW CARDIAC REHABStart: 03-30-2024 End: 49-50-7774Obmzywv encounter humghlwvp47/31/2024 9:00 AM EST Appointment [facility] [address] [place] [address] VAVS CARDIAC REHABStart: 03-29-2024 End: 08-53-2760Jlajeas encounter hqzeuuvfx21/30/2024 9:00 AM EST Appointment [facility] [address] [place] [address] VTXG CARDIAC REHABStart: 03-25-2024 End: 47-47-1236Vwdbfjx encounter /26/2024 9:00 AM EST Appointment [facility] [address] [place] [address] PCLG CARDIAC REHABStart: 03-23-2024 End: 19-53-6497Wfyymju encounter frrcegzyd52/24/2024 9:00 AM EST Appointment [facility] [address] [place] [address] ZOIV CARDIAC REHABStart: 03-22-2024 End: 41-82-4464Lbdppwl encounter niyvfgcnk74/23/2024 9:00 AM EST Appointment [facility] [address] [place] [address] GRAC CARDIAC REHABStart: 03-18-2024 End: 91-43-7611Gjrlkgx encounter hgpxcsaou78/19/2024 9:00 AM EST Appointment [facility] [address] [place] [address] OBNN CARDIAC REHABStart: 03-16-2024 End: 50-71-6053Iaxmwov encounter zxqatqrxc55/17/2024 9:00 AM EST Appointment [facility] [address] [place] [address] VFRL CARDIAC REHABStart: 03-15-2024 End: 13-64-3706Vcxnwuf encounter dizeuwbwy81/16/2024 9:00 AM EST Appointment [facility] [address] [place] [address] GJYO CARDIAC REHABStart: 03-11-2024 End: 68-77-0818Yjegsto encounter sheukkxfe36/12/2024 9:00 AM EST Appointment [facility] [address] [place] [address] UREK CARDIAC REHABStart: 03-10-2024 End: 19-42-6516Oradbhv encounter procedureNOMS [facility] PODIATRYComment on above: ArrivedStart: 03-09-2024 End: 85-77-6863Ymbphfq encounter fdanczkpc30/10/2024 9:00 AM EST Appointment [facility] [address] [place] [address] VPKC CARDIAC REHABStart: 03-08-2024 End: 06-02-5622Tcyqawb encounter procedureMWHZ CARDIAC REHABStart: 03-04-2024 End: 14-28-5720Pbfvdxo encounter iydrqtlug62/05/2024 9:00 AM EST Appointment [facility] [address] [place] [address] NELM CARDIAC REHABStart: 03-02-2024 End: 84-78-2090Ocxvllo encounter procedureMWHZ CARDIAC REHABStart: 03-01-2024 End: 14-78-0194Delhubs encounter procedureMWHZ CARDIAC REHABStart: 02-24-2024 End: 45-62-6444Oyuvbph encounter zasuvfoew35/26/2024 9:00 AM EST Appointment [facility] [address] [place] [address] XWOH CARDIAC REHABStart: 02-23-2024 End: 71-73-4659Ozyyaje encounter rsqujnmvm25/25/2024 9:00 AM EST Appointment [facility] [address] [place] [address] TFDK CARDIAC REHABStart: 02-19-2024 End: 59-88-1566Qpmlskb encounter /21/2024 9:00 AM EST Appointment [facility] [address] [place] [address] PVMK CARDIAC REHABStart: 02-17-2024 End: 48-44-1470Spciyow encounter yzpfcfopw63/19/2024 9:00 AM EST Appointment [facility] [address] [facility] [place] [address] MCIC CARDIAC REHABStart: 02-16-2024 End: 29-22-5415Ptjtkvn encounter procedureHENRY COUNTY HOSPITALY Part of [place] HospitalComment on above:elevated psaStart: 02-12-2024 End: 28-44-0266Pqjrtpf encounter fharrgdky12/14/2024 9:00 AM EST Appointment [facility] [address] [facility] [place] [address] OFEJ CARDIAC REHABStart: 02-10-2024 End: 15-93-5361Yjajbth encounter ypinxpvgn56/12/2024 9:00 AM EST Appointment [facility] [address] [facility] [place] [address] OERO CARDIAC REHABStart: 02-09-2024 End: 35-87-0039Fxmxuih encounter izrpkmfcg24/11/2024 9:00 AM EST Appointment [facility] [address] [place] [address] IHXW CARDIAC REHABStart: 02-05-2024 End: 25-44-5538Oljemjn encounter ijdazzndc25/07/2024 9:00 AM EST Appointment [facility] [address] [place] [address] OLLO CARDIAC REHABStart: 01-23-2024 End: 91-30-4397Zvrgnef encounter svofteuqj30/25/2024 10:00 AM EDT Procedure visit [facility] Story[facility] Artist [address] [place] [address] Wing Álvarez MD [address] [place] [address] Left heart cath--Dr. Álvarez @ [facility]--Not scheduled with Kelli--No pre cert needed MEDICAREMercy Cardiology SpecialistComment on above:Left heart cath--Dr. Álvarez @ [facility]--Not scheduled with Kelli--No pre cert needed MEDICAREStart: 12-24-2023 End: 46-79-9843Kyzjucu encounter ymescgrqd05/25/2024 10:00 AM EDT Office Visit [facility] Story[facility] Artist [address] [place] [address] Wing Álvarez MD [address] [place] [address] c/o sob this date per [facility] Cardiology SpecialistComment on above:c/o sob this date per drStart: 57-96-7783Qpwzulwixa hospital visit by ftevumxfw37/24/2024 8:00 AM EDT Hospital Encounter [facility] [address] [place] [address] Wing Álvarez MD [address] [place] [address] [facility] Non-Invasive CardiologyStart: 12-23-2023 End: 39-58-8289Nxdsmnr encounter procedureUk [facility] Nuclear Medicine Comment on above:EPIC // PATIENTLexiscan....EPIC // PATIENTStart: 12-02-2023 End: 83-01-4346Dbdomsn encounter gndcfnyok98/03/2024 10:15 AM EDT Procedure Visit [facility] [address] [place] [address] Carol Gusman, DPSteffany [address] [place] [address] ArrivedNOMS WWW PODIATRYComment on above: ArrivedStart: 38-50-1028BIEIS-19 Vaccine ( season)COVID-19 Vaccine ( season)[facility]: 83-26-1202UPTXF-19 Vaccine ( season)COVID-19 Vaccine ( season)Bon [facility] Start: 69-59-1483Vrtjtsdur vaccinationInfluenza Vaccine (#1)[facility] Healthcare Start: 97-99-9456Lqltwmbud vaccinationFlu vaccine (#1)[facility] Start: 45-04-9490Gurxfb Wellness Visit (Medicare)Annual Wellness Visit (Medicare)[facility]: [facility]-15-2022 End: 83-93-6874Gxugiwttp to same day surgery ltassr8711/15/2022 Surgery IP Unit Janey Rivera I, DO [address] [place] [address] [address] [place] [address] COLORECTAL CANCER SCREENING, HIGH RISK-DIAGNOSTICMTHZ ORComment on above:COLORECTAL CANCER SCREENING, HIGH RISK-DIAGNOSTICStart: 11-15-2022 End: 70-23-6899Bobrjmtifen flx dx w/collj spec when pfrmdCOLORECTAL CANCER SCREENING, HIGH RISK Colon wall thickening 11/15/2022 9:00 AM [facility] HospitalStart: 27-33-4359Aejyvousba hospital visit by oqwdfqexu84/18/2023 Hospital Encounter IP Unit Janey Rivera I, DO [address] [facility] [address] [place] [address] [facility] ORStart: 09-03-2022 End: 19-88-6350Zppguyc encounter bdptxsrfe98/06/2023 Office Visit Cardiology Wing Álvarez MD [address] [place] [address] [facility] Cardiology SpecialistStart: 85-04-6859Nrrkajsptdjm 65+ years Vaccine (2 - PCV)Pneumococcal 65+ years Vaccine (2 - PCV)[facility]: 89-94-0566Dxcyrlximlzo Vaccine: 65+ Years (2 of 2 - PCV) Pneumococcal Vaccine: 65+ Years (2 of 2 - PCV)[facility] HealthcareStart: 12-14-2021 Creatinine measurementCreatinine monitoringCleveland Clinic Foundation Health Work Phone: start: 76-20-2654Qlpaacyrq monitoringPotassium monitoringMercy Health Work Phone: start: 28-30-1304Oytrnedmr vaccinationWood [facility] Start: 74-74-4312Ryxfdyalfk hospital visit by ljyhthgwy84/25/2022 Hospital Encounter Occupational Therapy Irene Cordero OTA [address] [place], [facility] [address] [facility] Occupational TherapyStart: 11-21-2021 End: 96-15-7454Irlewte encounter iqsnsidzy23/24/2022 Appointment Occupational Therapy Irene Cordero OTA [address] [place] [address] MW Occupational TherapyStart: 11-19-2021 End: 55-60-1525Pggpnwi encounter oavxvcqkk95/22/2022 Appointment Occupational Therapy Irene Cordero OTA [address] [facility] [place] [address] MW Occupational TherapyStart: 11-16-2021 End: 90-64-1826Ttyljjv encounter uhlpkiahh23/19/2022 Appointment Occupational Therapy Mary Brizuela OTMWHZ Occupational TherapyStart: 11-16-2021 Subsequent hospital visit by uirhraeig84/19/2022 Hospital Encounter Occupational Therapy Irene Cordero OTA [address] [place] [address] MW Occupational TherapyStart: 11-14-2021 End: 44-94-9950Nkrbslk encounter procedureMBHARAT Occupational TherapyStart: 11-12-2021 End: 18-56-3601Gmvvadp encounter procedureMBHARAT Occupational TherapyStart: 11-09-2021 End: 39-89-3328Ogggxud encounter jnkcjwuhc14/12/2022 Appointment Occupational Therapy Mary Brizuela OTMWHZ Occupational TherapyStart: 11-09-2021 Subsequent hospital visit by huzavoohg08/12/2022 Hospital Encounter Occupational Therapy Nelly Trevizo OTMWHZ Occupational TherapyStart: 11-07-2021 End: 69-64-2732Fqtoyhu encounter hzarrueij87/10/2022 Appointment Occupational Therapy Mary Brizuela OTMWHZ Occupational TherapyStart: 11-05-2021 End: 97-52-7936Ixyqtxl encounter oblvqoyyf91/08/2022 Appointment Occupational Therapy Mary Brizuela OTMWHZ Occupational TherapyStart: 11-02-2021 End: 16-70-0499Pklzfzg encounter /05/2022 Appointment Occupational Therapy Mary Brizuela OTMWHZ Occupational TherapyStart: 10-30-2021 End: 34-72-5058Aehufap encounter zekqicous08/02/2022 Appointment Occupational Therapy Mary Brizuela OTMWHZ Occupational TherapyStart: 10-29-2021 End: 97-17-1983Weriwhq encounter nnisszkuj45/01/2022 Appointment Occupational Therapy Mary Brizuela OTMWHZ Occupational TherapyStart: 10-26-2021 End: 01-65-3233Hmmtkvb encounter /29/2022 Appointment Occupational Therapy Irene Cordero OTA [address] [place] [address] MW Occupational TherapyStart: 10-24-2021 End: 01-07-1883Cqsnhzu encounter kyetvcaci89/27/2022 Appointment Occupational Therapy Mary Brizuela OTMWHZ Occupational TherapyStart: 43-05-7642YlmrxksjuOhiohealth Berger Hospital Work Phone: Start: 10-23-2021 End: 46-72-4105Jwsiaui encounter uuqrbezqg57/26/2022 Appointment Occupational Therapy Taya Carnes OTAMWHZ Occupational TherapyStart: 10-22-2021 End: 85-96-9990Olzgvvt encounter cqajjhglv30/25/2022 Appointment Occupational Therapy Taya Carnes OTAMWHZ Occupational TherapyStart: 10-20-2021 Creatinine measurementCreatinine monitoringMercy Health Work Phone: start: 03-87-5359Allfxhfja monitoringPotassium monitoringMercy Health Work Phone: start: 10-19-2021 End: 53-63-3198Ympovuu encounter czpljdpof57/22/2022 Appointment Occupational Therapy Mary Brizuela OTMWHZ Occupational TherapyStart: 10-17-2021 End: 24-04-9972Vtiiuiv encounter ftxzaoozf35/20/2022 Appointment Occupational Therapy Mary Brizuela OTMWHZ Occupational TherapyStart: 10-16-2021 End: 35-33-8559Lkvfsoc encounter efabelzlk91/19/2022 Appointment Occupational Therapy Mary Brizuela OTMWHZ Occupational TherapyStart: 10-12-2021 End: 93-71-0728Hejjuqi encounter ynspfapiw11/15/2022 Appointment Occupational Therapy Mary Brizuela OTMWHZ Occupational TherapyStart: 10-09-2021 End: 35-82-0026Wryhehp encounter jcnnvmhiy35/12/2022 Appointment Occupational Therapy Mary Brizuela OTMWHZ Occupational TherapyStart: 10-08-2021 End: 41-21-2793Reyuxvc encounter csqhfgfyv68/11/2022 Appointment Occupational Therapy Irene Cordero OTA [address] [place] [address] [facility] Occupational TherapyStart: 10-05-2021 End: 99-75-9691Zotevqm encounter lsitiuwtj18/08/2022 Appointment Occupational Therapy Mary Brizuela OTMWHZ Occupational TherapyStart: 10-02-2021 End: 42-25-0598Diwpdwh encounter neprsiapi31/05/2022 Appointment Occupational Therapy Mary Brizueal OTMWHZ Occupational TherapyStart: 09-28-2021 End: 51-89-9915Bwpcxza encounter mhprveprx34/01/2022 Appointment Occupational Therapy Irene Cordero OTA [address] [place] [address] [facility] Occupational TherapyStart: 09-26-2021 End: 02-38-1115Xuyxfju encounter fgyhfepdt98/29/2022 Appointment Occupational Therapy Mary Brizuela O[facility] Occupational TherapyStart: 09-25-2021 End: 70-31-7930Vzydwwv encounter bhrjuvlan94/28/2022 Appointment Occupational Therapy Mary Brizuela [facility] Occupational TherapyStart: 09-21-2021 End: 95-30-6853Qrwtbdt encounter kjelbwtus97/24/2022 Appointment Occupational Therapy Mary Brizuela [facility] Occupational TherapyStart: 09-19-2021 End: 67-49-8726Tpuvled encounter xyjsrclwn27/22/2022 Appointment Occupational Therapy Mary Brizuela [facility] Occupational TherapyStart: 09-18-2021 End: 97-45-4752Ychzwiz encounter swfsjealv82/21/2022 Appointment Occupational Therapy Mary Brizuela [facility] Occupational TherapyStart: 09-14-2021 End: 82-57-7715Xkpxgzw encounter procedureMBHARAT Occupational TherapyStart: 09-12-2021 End: 76-09-2843Sranota encounter zortxgpyv75/15/2022 Appointment Occupational Therapy Mary Brizuela [facility] Occupational TherapyStart: 09-10-2021 End: 62-69-6542Wnognfk encounter btentfjjj64/13/2022 Appointment Occupational Therapy Mary Brizuela [facility] Occupational TherapyStart: 09-07-2021 End: 30-10-0264Dqhxeni encounter ogpyfnpfy95/10/2022 Appointment Occupational Therapy Mary Brizuela O[facility] Occupational TherapyStart: 09-05-2021 End: 18-71-4575Fnfeosp encounter lcunmmzzi90/08/2022 Appointment Occupational Therapy Mary Brizuela O[facility] Occupational TherapyStart: 09-04-2021 End: 67-14-6860Hestqbh encounter procedureMercy Cardiology SpecialistStart: 07-02-2021 End: 07-02-2022 reactive protein [Mass/volume] in Serum or PlasmaC[facility] Clinic [facility] Work Phone: Comment on above:Expected: 07/02/2021, Expires: 07/02/2022Start: 07-02-2021 End: 66-08-3418Xpxkibxnbgz sedimentation rateCleveland Clinic Children'S Hospital For [facility] Work Phone: Comment on above:Expected: 07/02/2021, Expires: 07/02/2022Start: 07-02-2021 End: 62-68-5361Bupefvkufmzfog (EPO) [Units/volume] in Serum or PlasmaW[facility] Work Phone: Comment on above:Expected: 07/02/2021, Expires: 07/02/2022Start: 07-02-2021 End: 48-01-8861Ufjgstswanp [Mass/volume] in Serum or [facility] Work Phone: Comjxnp on above:Expected: 07/02/2021, Expires: 07/02/2022Start: 07-02-2021 End: 29-73-2755MEAXALCFFG PROTEIN, SERUM (BLOOD)[facility] Work Phone: Comxdoz on above:Expected: 07/02/2021, Expires: 07/02/2022Start: 07-02-2021 End: 58-32-9650YLNTDOB ELECTROPHORESIS SERUM W/INTEROhioHealth Grady Memorial Hospital Work Phone: Comegab on above:Expected: 07/02/2021, Expires: 09/01/2021tart: 07-02-2021 End: 09-53-8728Uschwapbxlu [Units/volume] in Serum or [facility] Work Phone: Comment on above:Expected: 07/02/2021, Expires: 09/01/2021tart: 07-02-2021 End: 57-11-1755LXZUXRO B12 [facility] Work Phone: Comment on above:Expected: 07/02/2021, Expires: 07/02/2022Start: 96-30-9567PTOEF-19 Vaccine (4 - Booster for Pfizer series) COVID-19 Vaccine (4 - Booster for Pfizer series)[facility]: 11-24-1597TRWWTOX DIRECTIVE DISCUSSIONADVANCE DIRECTIVE DISCUSSIONPremier Health Upper Valley Medical Centertart: 49-13-1213CYARQ-19 Vaccine (4 - Booster for Pfizer series)COVID-19 Vaccine (4 - Booster for Pfizer series)[facility]: 02-14-2021 End: 69-88-4104Nzpczgx encounter zxipgbiqg84/17/2021 Office Visit Cardiology Wing Álvarez MD [address] [place] [address] [phone] [facility] Cardiology SpecialistStart: 12-14-2020 End: 76-65-3911Ivwnykx encounter votpfobkf41/16/2021 Office Visit Cardiology Wing Álvarez MD [address] [place] [address] [phone] [facility] Cardiology SpecialistStart: 96-41-2963LuabdgtfjHendry [facility] [employer] Work Phone: start: 10-30-2020 End: 68-98-1736Telflsc encounter uxtygyqin36/02/2021 Office Visit Cardiology Wing Álvarez MD [address] [place] [address] [phone] [facility] Cardiology SpecialistStart: 12-24-2019 End: 70-75-0782Fsgkaiyffqv02/25/2020 Appointment Physical Therapy Maribel Villegas PTAMWHZ Physical TherapyStart: 12-22-2019 End: 75-09-5453Doubvrlatqv31/23/2020 Appointment Physical Therapy Kate Rivera PTMWHZ Physical TherapyStart: 12-21-2019 End: 06-06-7029Utoglmwlysn20/22/2020 Appointment Physical Therapy Gary Mcnamara PTAMWHZ Physical TherapyStart: 12-16-2019 End: 77-62-1151Zrcrmlrfvwm71/17/2020 Appointment Physical Therapy Kate Rivera PTMWHZ Physical TherapyStart: 12-15-2019 End: 19-34-8445Wkpvtnufsfi96/16/2020 Appointment Physical Therapy Kate Rivera PTMWHZ Physical TherapyStart: 12-13-2019 End: 02-41-9783Roqmfnjruoe17/14/2020 Appointment Physical Therapy Gary Mcnamara PTAMWHZ Physical TherapyStart: 12-10-2019 End: 99-70-4993Razifmsdpcn73/11/2020 Appointment Physical Therapy Gary Mcnamara PTAMWHZ Physical TherapyStart: 12-08-2019 End: 80-57-6165Gemdotdxrql47/09/2020 Appointment Physical Therapy Gary McnamaraVEEMWHZ Physical TherapyStart: 12-03-2019 End: 99-46-8977Xeemhxqbjra38/04/2020 Appointment Physical Therapy Gary McnamaraFABIO Physical TherapyStart: 12-01-2019 End: 29-25-6391Keyovixpwal40/02/2020 Appointment Physical Therapy Gary McnamaraFABIO Physical TherapyStart: 42-63-1440Qtxzcvrsv vaccinationCincinnati VA Medical Center: 13-00-3219Iyzojouvd vaccination givenSequential Influenza Vaccine (#1) [facility] HospitalStart: 79-21-0791Shzjyq Wellness Visit (AWV)Annual Wellness Visit (AWV)BON [facility]: 91-33-8464Wsxurinucfzw 65+ years Vaccine (2 - PCV)Pneumococcal 65+ years Vaccine (2 - PCV)[facility]: 85-93-9316Tmuyivghszp Syncytial Virus (RSV) or age 60 yrs+ (1 - 1-dose 75+ series)Respiratory Syncytial Virus (RSV) or age 60 yrs+ (1 - 1-dose 75+ series)[facility]: 43-31-4800Ccogmwzisgm Syncytial Virus Immunization: Risk, 60-74 Risk, or 75+ (1 - 1-dose 75+ series) Respiratory Syncytial Virus Immunization: Risk, 60-74 Risk, or 75+ (1 - 1-dose 75+ series)[facility]: 64-54-6930ELuY/Tdap/Td Vaccines (2 - Td or Tdap)DTaP/Tdap/Td Vaccines (2 - Td or Tdap)[facility] HealthcareStart: 53-52-4418Bmmt risk assessmentFalls Risk AssessmentWvioHealthStart: 84-15-3181Qwxpledofiyw 65+ years Vaccine (1 of 1 - PPSV23)Pneumococcal 65+ years Vaccine (1 of 1 - PPSV23) [facility]: 69-51-8238Csuibulqjyez vaccinationPneumococcal Vaccine Age 65+ (1 of 2 - PCV13)[facility] HospitalStart: 36-78-9301JUVESPMJX AGE 65 AND OVER WITH 5YR LOOKBACK (#1)PNEUMOVAX AGE 65 AND OVER WITH 5YR LOOKBACK (#1) [facility]ertart: 79-04-3658Gfgzuifmgel Syncytial Virus (RSV) or age 60 yrs+ (1 - 1-dose 60+ series)Respiratory Syncytial Virus (RSV) or age 60 yrs+ (1 - 1-dose 60+ series)[facility] Centerart: 1991 Administration of herpes zoster vaccineZoster Vaccines (1 of 2)[facility] HospitalStart: 70-60-0892Uhzwgfyf Vaccine (1 of 2)Shingles Vaccine (1 of 2)[facility] Centerart: 91-62-2859GQLRNDQN VACCINE (1 of 2)SHINGRIX VACCINE (1 of 2) [facility]ertart: 24-44-0197Mlkqf microalbumin profileDTAP,TDAP,TD (1 - Tdap)[facility]rt: 15-12-3303Kjfyvoyuv C antibody, confirmatory test Hepatitis C ScreeningOhioCherrington HospitalStart: 89-58-7413DSSTG-19 Vaccine (1 of 2)COVID- 19 Vaccine (1 of 2)[facility] HospitalStart: 72-39-4597Ufiojbxrrq depression screening assessmentClinton Memorial Hospitalrt: 22-42-6325Klhjugohwd ScreenDepression ScreenBON [facility] Hospitalart: 62-14-3819Gyfgqsmiok screening using PHQ-9 (Patient Health Questionnaire 9) scoreDepression Screening/Follow-Up (PHQ-2/9)[facility] Start: 94-41-8469AKXQT-19 VACCINE (1)COVID-19 VACCINE (1)[facility]ertart: 38-97-7115Hurzmhz and physical examination, annual for health maintenance Wellness VisitOhioHealthStart: 02-09-1945Medicare Wellness VisitMedicare Wellness VisitOhioHealthStart: 40-44-2519Opczaj Wellness Visit (AWV)Annual Wellness Visit (AWV)[facility] Centerart: 31-01-3025Mncd risk assessmentFalls Risk AssessmentOhioHealthStart: 61-12-3522Gavgtweak C screening Hepatitis C screenMer Health Work Phone: End: 28-93-0048LTJ profileANA profile Lab Routine Fatigue, unspecified type Leg edema Discoloration of skin of lower leg 1 Occurrences starting 12/14/2020 until 12/14/2020[facility] Phone: comment on above:1 Occurrences starting 12/14/2020 until 12/14/2020NA profileANA profile Lab Routine Fatigue, unspecified type Leg edema Discoloration of skin of lower leg 12/14/2020 9:40 AM [employer] Phone: End: 01-71-4913Lfli-Neutrophilic Cytoplasmic AntibodyAnti-Neutrophilic Cytoplasmic Antibody Lab Routine Fatigue, unspecified type Leg edema Discoloration of skin of lower leg 1 Occurrences starting 12/14/2020 until 12/14/2020[facility] Phone: comsgpc on above:1 Occurrences starting 12/14/2020 until 12/14/2020nti-Neutrophilic Cytoplasmic AntibodyAnti-Neutrophilic Cytoplasmic Antibody Lab Routine Fatigue, unspecified type Leg edema Discoloration of skin of lower leg 12/14/2020 9:40 AM [employer] Phone: End: 55-60-5772F-reactive proteinC-reactive protein Lab Routine One Time for 1 Occurrences starting 10/20/2020 until 10/20/2020[facility] Phone: comjhtw on above:One Time for 1 Occurrences starting 10/20/2020 until 10/20/2020-reactive proteinC-reactive protein Lab STAT 10/20/2020 4:43 PM [employer] Phone: End: 08-82-5167ZEWEIOI PHASE IICARDIAC PHASE II Card Rehab One Time for 1 Occurrences starting 02/02/2024 until 02/02/2024on [address] [facility] on above:One Time for 1 Occurrences starting 02/02/2024 until 02/02/2024 End: 81-34-6169JRWZOKZ PHASE IICARDIAC PHASE II Card Rehab One Time for 1 Occurrences starting 02/19/2024 until 4Bon [facility]Saint [facility] on above:One Time for 1 Occurrences starting 02/19/2024 until 02/19/2024 End: 55-25-9925SSCVPQW PHASE IICARDIAC PHASE II Card Rehab One Time for 1 Occurrences starting 03/04/2024 until 03/04/2024on [facility] Health[facility] on above:One Time for 1 Occurrences starting 03/04/2024 until 03/04/2024 End: 67-04-7896FTKXGCL PHASE IICARDIAC PHASE II Card Rehab One Time for 1 Occurrences starting 03/23/2024 until 03/23/2024on [facility] HealthComment on above:One Time for 1 Occurrences starting 03/23/2024 until 03/23/2024 End: 82-02-2860WRHENDH PHASE IICARDIAC PHASE II Card Rehab One Time for 1 Occurrences starting 03/29/2024 until 03/29/2024on [facility] HealthComment on above:One Time for 1 Occurrences starting 03/29/2024 until 03/29/2024 End: 25-44-5834OCTTZDV PHASE IICARDIAC PHASE II Card Rehab One Time for 1 Occurrences starting 03/30/2024 until 03/30/2024on [facility] HealthComment on above:One Time for 1 Occurrences starting 03/30/2024 until 03/30/2024 End: 29-50-7232SEKTVVA PHASE IICARDIAC PHASE II Card Rehab One Time for 1 Occurrences starting 04/08/2024 until 04/08/2024on [facility] HealthComment on above:One Time for 1 Occurrences starting 04/08/2024 until 04/08/2024 End: 94-57-3020JNLCAYP PHASE IICARDIAC PHASE II Card Rehab One Time for 1 Occurrences starting 04/22/2024 until 04/22/2024on [facility] HealthComment on above:One Time for 1 Occurrences starting 04/22/2024 until 04/22/2024 Comprehensive metabolic 2000 panel - Serum or PlasmaOhiohealth Mansfield HospitalDermatopathology examDermatopathology exam Pathology and Cytology Timed Neoplasm of unspecified behavior of bone, soft tissue, and skin Release Upon Ordering for 1 Occurrences starting 03/08/2024[facility] Healthcare Work Phone: comment on above:Release Upon Ordering for 1 Occurrences starting 03/08/2024 End: 20-88-2219TKRE Complete 2D W Doppler W ColorECHO Complete 2D W Doppler W Color Echocardiography Routine Atrioventricular septal defect (AVSD) Aortic valve stenosis, etiology of cardiac valve disease unspecified 1 Occurrences starting 08/08/2020 until 08/08/2020Peer5 Phone: comment on above:1 Occurrences starting 08/08/2020 until 1EKG 12 [employer] Work Phone: ekg 12 LeadEKG 12 Lead ECG Routine Vitamin D deficiency Encounter for lipid screening for cardiovascular disease Atrial flutter, unspecified type (HCC) 09/03/2021 7:42 AM [employer] Work Phone: ekg 12 LeadEKG 12 Lead ECG Routine Atrial flutter, unspecified type (HCC) Vitamin D deficiency Encounter for lipid screening for cardiovascular disease Aortic valve stenosis, etiology of cardiac valve disease unspecified 08/30/2022 9:39 AM [employer] Work Phone: electrophoresis Protein, Serum without Reflex to ImmunofixationElectrophoresis Protein, Serum without Reflex to Immunofixation Lab Routine Fatigue, unspecified type Leg edema Discoloration of skin of lower leg 12/14/2020 9:40 AM [employer] Phone: End: 31-13-0672Gbteeb monitor 48 hourHolter monitor 48 hour Cardiac Services Routine Atrioventricular septal defect (AVSD) Aortic valve stenosis, etiology of cardiac valve disease unspecified 1 Occurrences starting 08/08/2020 until 08/08[facility] HospitalDealised Work Phone: comment on above:1 Occurrences starting 08/08/2020 until 08/08/2020atient EducationHiatal Hernia (DC) Alvares's Esophagus (DC) [facility] Work Phone: Protein Electrophoresis, UrineProtein Electrophoresis, Urine Lab Routine Fatigue, unspecified type Leg edema Discoloration of skin of lower leg 12/14/2020 9:40 AM [employer] Work Phone: [place] Lower extremity vein - rightTahoe Pacific [facility]als Immunizations Immunization DateImmunizationNotesCare MokorzosEmfrvfxc00-21-6046bayctqrpa, high dose seasonal, preservative-freeFaizan Bragg MD Work Phone: [facility]05-05-2025zoster vaccine Patricia Bragg MD Work Phone: [phone] [place], [place] 6744401-08-2025influenza, high dose seasonal, preservative-freeFaizan Bragg MD Work Phone: [phone] [place], [place] 6744401-08-2025zoster vaccine Patricia Bragg MD Work Phone: [phone] [place], [place] 6744401-08-2025influenza virus vaccine, unspecified formulationChristopher Bohach DPM Work Phone: [facility] CenterXeqdqvahrx35-13-5010Zvwtyrk QIV High-Dose 65YR+ Faizan Bragg MD Work Phone: [facility]11-03-2023influenza virus vaccine, unspecified formulationChristopher Bohach DPM Work Phone: [facility] CenterRicdzzfbjp00-90-1592Ebamtst QIV High-Dose 65YR+ Faizan Bragg MD Work Phone: [facility]11-12-2021Fluzone QIV High-Dose 65YR+Faizan Bragg MD Work Phone: [facility]11-01-2021 pneumococcal polysaccharide vaccine, 23 valentChristopher Bohach DPM Work Phone: [facility] CenterDoyynrprnf39-26-2062QRKBC-16 Ling Gee (Pfizer)MD Faizan Bragg Work Phone: [facility]02-25-2021COVID-19 Ling Gee (Pfizer)MD Faizan Bragg Work Phone: [facility]02-04-2021COVID-19 Ling Gee (Pfizer)MD Faizan Bragg Work Phone: [facility]11-16-2020 pneumococcal polysaccharide vaccine, 23 valentGilliancia Bragg Other [facility]09-30-2020influenza virus vaccine, split virus (incl. purified surface antigen)Faizan Bragg Other [employer] Other [id number] virus vaccine, unspecified formulationOhiohealth Mansfield Hospital11-11-2019influenza virus vaccine, split virus (incl. purified surface antigen)Faizan Bragg Other [employer] Other [id number] virus vaccine, unspecified formulationOhiohealth Mansfield Hospital11-11-2019pneumococcal conjugate vaccine, 13 valentMignona Aaron Other [facility]10-29-2018influenza virus vaccine, split virus (incl. purified surface antigen)Faizan Bragg Other [employer] Other 10939937-18-2028tdjhzmtyu virus vaccine, unspecified formulationOhiohealth Mansfield Hospital10-29-2018Seasonal trivalent influenza vaccine, adjuvanted, preservative freeFaizan Bragg MD Work Phone: [facility]10-12-2017influenza virus vaccine, split virus (incl. purified surface antigen)Faizan Bragg Other [employer] Other 10949556-22-0517uamgbyedk virus vaccine, unspecified formulationOhiohealth Mansfield Hospital01-27-2017influenza, seasonal, injectableCameron Ditty Other [facility]10-01-2016diphtheria, tetanus toxoids and acellular pertussis vaccine, unspecified formulationFaizan Bragg Other [facility]10-01-2016tetanus toxoid, reduced diphtheria toxoid, and acellular pertussis vaccine, adsorbed Gurdeep Salomon [facility]ITALXENQOY29-60-1364wbopnqdxszog polysaccharide vaccine, 23 valentCameron Ditty Other [facility]11-04-2013tetanus and diphtheria toxoids, adsorbed, preservative free, for adult use (5 Lf of tetanus toxoid and 2 Lf of diphtheria toxoid)Faizan Aaron Other [facility] HospitalNEGATED: Highlighted row has not occurred!14-30-9619ttviil vaccine, liveCameron Ditty Other [employer] Other Payers DatePayer CategoryPayerPolicy [id number] Health InsuranceMEDICAL MUTUAL [id number] [employer] [id number] 2021- [address] [place] [address].2.840.145507.1.13.693.2.7.3.735081.20197-84-9411Giomgdl Care (unspecified)[facility] 1.2.840.868039.1.13.385.2.7.9.422537.485.95805-72-4294Fxpzyotcirjsnyx5175 1.2.840.738481.1.13.385.2.7.3.435796.93074-83-0560Czgpkejyjstjrmgrxej 1.2.840.306918.1.13.385.2.7.3.299715.315 [id number] Medicarexxxxxxxxxxx 1.2.840.641039.1.13.385.2.7.3.737290.315 2007Medicare [id number] 1.2.840.340281.1.13.385.2.7.3.083597.315 2007Medicare 1.2.840.598986.1.13.693.2.7.9.582274.646908.315 [id number] 1.2.840.454255.1.13.239.2.7.3.932442.315 [id number] 1960 Grkdcki08559070[id number] 2.16.840.1.653397.3.579.2.41-64-7957Ezwmgmj05012024 2.16.840.1.503641.3.579.2.68760-28-5302Cvavjix26617497 2.16.840.1.656874.3.579.2.93277-86-0772Ovrerve7003406 2.16.840.1.035615.3.579.2.35185-99-7258Vqudwxw2627210 2.16.840.1.821224.3.579.2.90240-64-8022Xzyqfhj1949362 2.16.840.1.949382.3.579.2.65564-56-9373Imieboj2078486 2.16.840.1.464204.3.579.2.90504-06-5308Yhmntjy9158549 2.16840.1.104783.3.579.2.82818-60-3687Znnxbiv087695169 2.16840.1.940465.3.579.2.20667-74-1924Ciukjvh159376375 2.840.1.174933.3.579.2.72294-15-4927Otaiogr911008399 2.840.1.762491.3.579.2.24429-36-8480Oaunwin97918037 2.16840.1.277159.3.579.2.50232-89-4990Tplgtfs63805655 2.840.1.193478.3.579.2.55079-02-8339Hhdnunk93861561 2.840.1.690517.3.579.2.82677-13-3980Vaogujx75590915 2.840.1.315049.3.579.2.08675-85-2484Xvpykqh61751994 2.16840.1.371869.3.579.2.31723-33-6854Gghetbd89559745 2.16840.1.035370.3.579.2.03792-85-1737Evyvizn07792744 2.16840.1.963275.3.579.2.94685-32-4991Bfssior27871603 2.16.840.1.233358.3.579.2.09706-55-4190Acfbhny58970809 2.16.840.1.828926.3.579.2.86828-24-5569Dstvqqt56143252 2.16.840.1.974410.3.579.2.49693-55-2349Dopuash71796981 2.16.840.1.472912.3.579.2.20765-59-3994Msrsgyn99067465 2.16.840.1.853214.3.579.2.38844-69-4993Kvqsbpq70661755 2.16.840.1.570728.3.579.2.75529-85-7224Zoohhhg93092573 2..840.1.766831.3.579.2.78285-23-4983Cmvedar16854019 2..840.1.979182.3.579.2.02138-70-8919Spitsmw28761080 2..840.1.818622.3.579.2.17359-05-2293Cwnfrja85745201 2.16.840.1.156227.3.579.2.25322-17-7660Imdureh76929686 2.16.840.1.818761.3.579.2.95113-65-2593Fxkwaan76702704 2.16.840.1.720360.3.579.2.34553-15-0576Sovjxhn87366626 2.16.840.1.705105.3.579.2.57459-77-0544Yqkemuw42898776 2.16.840.1.782062.3.579.2.44770-13-1826Ahlppsq55827777 2.16.840.1.741377.3.579.2.81504-80-3485Khqeojf20626406 2.16.840.1.897491.3.579.2.24457-72-0724Qpnvujt53809458 2.16.840.1.134146.3.579.2.56375-47-6447Trqilhw11181821 2.16.840.1.204357.3.579.2.40126-12-5558Qdsaphv42452491 2.16.840.1.519251.3.579.2.49114-05-6583Ffwxvhk52844214 2.16.840.1.055785.3.579.2.60137-32-3191Evbmolu89086708 2.16.840.1.768688.3.579.2.32180-28-6354Qrcfrpw44359233 2.16.840.1.562010.3.579.2.65920-38-2498Ruevsit02503837 2.16.840.1.195585.3.579.2.62513-69-0703Uesnqfp03103716 2.16.840.1.996687.3.579.2.65493-52-3229Fgtisqj93528252 2.16.840.1.989082.3.579.2.92633-93-0577Gatgagz10498117 2.16.840.1.545090.3.579.2.21633-12-0352Uzarecp57703016 2.16.840.1.959170.3.579.2.19965-64-1543Yheacuz05585564 2.16.840.1.293062.3.579.2.19424-51-9319Umeeeqx92576724 2.16.840.1.216480.3.579.2.41730-84-5696Ywwkrfp28576319 2.16.840.1.976905.3.579.2.68904-04-1543Fmpfzbi53370357 2.16.840.1.291792.3.579.2.97954-77-4481Phsqags28091408 2.16.840.1.462010.3.579.2.01708-19-3153Virpplz06589896 2.16.840.1.584842.3.579.2.69409-90-7628Xicsyxo34068563 2.16.840.1.181256.3.579.2.13886-92-4975Ndpxygi09723651 2..840.1.314427.3.579.2.37944-64-0528Rfpzqse44997301 2..840.1.005180.3.579.2.01778-08-7418Raqxsen47962373 2..840.1.134436.3.579.2.20564-72-2169Pvwdkcm87346436 2..840.1.527358.3.579.2.81175-56-4186Gmfrcbs44201412 2..840.1.192620.3.579.2.47240-73-6165Bpnbjqv79233091 2.16.840.1.014959.3.579.2.44169-65-2750Rdidsqn07603702 2.16.840.1.387757.3.579.2.02170-79-5156Mwmsqak58985645 2.16.840.1.352622.3.579.2.19253-66-1413Vplausv87439624 2.16.840.1.891413.3.579.2.85088-14-2306Nxcdxxi96666286 2.16.840.1.758211.3.579.2.27803-80-2193Xkbocft58390143 2.16.840.1.092820.3.579.2.79662-49-6630Dpwutzm71004290 2.16.840.1.193454.3.579.2.29601-41-4801Mrknogd44154709 2.16840.1.662266.3.579.2.88401-18-9615Pnfnqir34694511 2.16.840.1.082894.3.579.2.322404-44-1853Khktygk62002669 2.16840.1.040579.3.579.2.030814-95-2499Xlmcjfz62868635 2.0.1.153827.3.579.2.439459-90-0085Ucmmprz30752608 2.840.1.070152.3.579.2.625302-91-7514Uqshrwk9868202 2.840.1.301831.3.579.2.687375-51-3788Okyuayl1746645 2.840.1.603402.3.579.2.725336-06-1515Qdvvmxc8131265 2.840.1.544873.3.579.2.202650-67-8451Ycupqyx6643384 2.16840.1.890131.3.579.2.909754-63-8989Fyqfajn5844341 2.16840.1.659452.3.579.2.709927-16-8450Vtsyzhw4085396 2.16840.1.744044.3.579.2.845731-44-1056Qczbqmi68838601 2.16840.1.748467.3.579.2.78074-27-6277Fvgmkot64178825 2.16.840.1.405361.3.579.2.173Self-paySelf Pay [id number] Social History DateTypeDetailFacilityStart: 12-30-2015 End: 39-98-6554Qmhlkju smoking status NHISNever smokerPremier Health Upper Valley Medical Centertart: 12-30-2015 End: 11-72-4188Qamceow intakeCurrent non-drinker of alcohol (finding)[employer] [facility] ER: 57-70-1137Lub Assigned At [facility]rmcNot on [facility] Centertoo.me [facility] ER: 09-18-2019 End: 16-51-9409Fkssdzf use and exposureNever usedThe Bellevue HospitalDealisedFOSTERS, KYExposure to SARS-CoV-2 (event)Unable to assessThe Bellevue Hospitaltoo.me [facility]art: 06-22-2021 End: 35-40-5350Gzetikbw to SARS-CoV-2 (event)Not [employer] Work Phone: start: 05-72-0436Evhesox intakeEx-drinker (finding) [facility]: 11-15-2022 End: 24-52-0129Lzc Assigned At [facility] Hospitaltart: 30-19-6016Bof Assigned At [facility] HospitalTobapushm[facility] smoking statusNo Smoking Status [facility], Inctart: 11-15-2022 End: 09-00-1723Ufswmgb of Social functionBON WikiYouHow often to you have a drink containing alcohol?NeverBON WikiYouStart: 14-09-6193Xst many standard drinks containing alcohol do you have on a typical day?Patient does not drinkBON WikiYouStart: 95-13-0518Zhhmbd identityIdentifies as male gender (finding)LinekongStart: 72-63-3393Asqzid orientationHeterosexual (finding)[facility] HEALTHStart: 12-02-2023 End: 01-42-3015Tuwsqxdoc beverage intakeLifetime non-drinker (finding)FOUZ[facility] HealthcareStart: 05-10-2012 End: 51-55-1456LaoWfmm (finding)[facility] HospitalNEGATED: Highlighted rowStart: NINFHistory of tobacco usePassive smokerNOMS Healthcare Goals DatePatient GoalDesired Activity/State Functional Status QoghRcltjtqaxdXoyteiLgapgcjt07-95-7308Hjmovjpbvj StatusN/[facility]11-26-2024Functional StatusN/[facility]10-24-2024 Functional StatusN/[facility]10-22-2024Functional StatusN/A [facility]09-18-2024Functional StatusN/[facility]08-26-2024Functional StatusN/[facility] 94-66-0415Pqccjufvma StatusN/[facility]06-19-2024Functional StatusN/[facility]06-10-2024Functional StatusN/[facility]05-13-2024Functional StatusN/[facility] 30-03-1880Zxbwazadpo StatusN/[facility]04-04-2024Functional StatusN/[facility] Clinical Notes 08-08-2020 to 01-27-2025 Note Date & GznzLnuwYaapjnjl93-44-4320 History of Present illness Narrative* Carol Gusman [...] 3mm. 5Long, Thick, Crumbly, Deformed, Discolored, Brittle, Eadtwxnmmi0si. Nail Pathology: Right Foot: 1 (great toe)Long, Thick, Crumbly, Deformed, Discolored, Brittle, Dystrophic 5 mm. 2Long, Thick, Crumbly, Deformed, Discolored, Brittle, Dystrophic 4mm. 3Long, Thick, Crumbly, Deformed, Discolored, Brittle, Dystrophic, 4mm. 4Long, Thick, Crumbly, Deformed, Discolored, Brittle, Dystrophic,3mm. 5Long, Thick, Crumbly, Deformed, Discolored, Brittle, Vxiekdselx9nb. Modifier: -Q9, Parastesias. Vascular: palp pulses bilat and good color and refill digits. minimal edema. Neurologic: Vibratory sensation, shapr/dull and light touch are decreased to the plantar foot bilateral, all toes involved. Ankle / Foot: Good strength and ROM bilat, no kair or legs tenderness. neg homans sign. Orthopedic: [...] Antibiotics Unknown Trimethoprim Other documented in this encounterWashington University Medical CenterYvdnqwmqxe51-71-1465 NoteConsultation Note Patient is presenting with complaints [...] call with any questions or concerns that arise.[facility] HospitalComment on above:Result Comment: Electronically Signed By: Daniel Hair DO.br\Date and Time Signed: 01/06/25 08:36 [id number] Evaluation note* Diagnosis Onset Date Resolution Status Admit Date Dyslipidemia acuteSeptember 2024 9:25amEncounter for immunizationacuteSept2024 9:25amEssential (primary) hypertensionacuteSept2024 9:25amIron deficiency anemiaacuteSept2024 9:25amMedicare annual wellness visit, subsequentacuteSept2024 9:25amChronic atrial fibrillationchronic December 08, 2024 9:25amCellulitis of right footacuteSeptember 2024 10:27am [facility] Work Phone: 1(957) 420-531809-10-2025 Evaluation note* Diagnosis Onset Date Resolution Status Admit Date Dyslipidemia acuteSept2024 9:25amEncounter for immunizationacuteSept2024 9:25amEssential (primary) hypertensionacuteSept2024 9:25amIron deficiency anemiaacuteSept2024 9:25amMedicare annual wellness visit, subsequentacuteDecember 08, 2024 9:25amChronic atrial fibrillationchronic December 08, 2024 9:25amCellulitis of right footacuteSeptember 2024 10:27amUlcer of extremity due to chronic venous insufficiencyacuteNov2024 2:12pm [facility] Work Phone: 1(874) 312-734809-05-2025 NoteOperative Report Diagnosis: 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 Procedure: [...] The patient agrees to continue currently prescribed/recommended therapies.[facility] HospitalComment on above:Result Comment: Electronically Signed By: Daniel Hair DO.br\Date and Time Signed: 12/03/24 12:19 [id number] History of Present illness Narrative* Carol Gusman DPM - 11/18/2024 2:15 PM EDT Bret Yap [...] 3mm. 5Long, Thick, Crumbly, Deformed, Discolored, Brittle, Iituyqvwoi7zl. Nail Pathology: Right Foot: 1 (great toe)Long, Thick, Crumbly, Deformed, Discolored, Brittle, Dystrophic 5 mm. 2Long, Thick, Crumbly, Deformed, Discolored, Brittle, Dystrophic 4mm. 3Long, Thick, Crumbly, Deformed, Discolored, Brittle, Dystrophic, 4mm. 4Long, Thick, Crumbly, Deformed, Discolored, Brittle, Dystrophic,3mm. 5Long, Thick, Crumbly, Deformed, Discolored, Brittle, Pqjnepclml9bc. Modifier: -Q9, Parastesias. Vascular: palp pulses bilat [...] visit preop with XRAY documented in this encounterWashington University Medical CenterUwduugdtmj97-89-6025 History of Present illness Narrative* GABRIEL Ricketts [...] limited to risks of scarring, darker or school principal pigmentary changes, recurrence, incomplete removal and infection. [...] Nose, Right Forearm - Anterior, Right Mid [place], Right SuperiorHelix (2), Right Zygomatic Area Inflamed [...] limited to risks of scarring, darker or school principal pigmentary changes, recurrence, incomplete removal and infection. [...] Nose, Right Forearm - Anterior, Right Mid [place], Right Superior [place] (2), Right Zygomatic Area Next Visit: 4 months documented in this encounterWashington University Medical CenterBhkukbshjh13-08-7786 History of Present illness Narrative* Mechelle Aden AuD - 10/05/2024 2:17 PM EDT Images from the original note were not included. [facility] [address] [place] [address] [address]th [address] [place] [id number] Name: Bret Yap : 1940 Date: 10/05/24 [...] [] [] Cancer [] [x] Y N Sp./Vincenzo. Skills Ear Surgery R L Vertigo [] [x] Appropriate [x] [] PE Tubes [] [] Dizziness [] [x] In Therapy [] [x] Mastoidectomy [] [] Imbalance [x] [] Social Acoustic Neuroma [] [] Vestibular Rehab [] [x] Depression [] [x] Tympanoplasty [] [] Hearing aids: binaural jpicarje-as-ldr-canal hearing aids from an outside facility Other: [...] aid care. Electronically Signed by: Phyllis Niño, CCC-A 10/05/24 2:17 PM Audiogram: documented in this [id number] NoteOPG [address] [place] (11) [facility] [address] [facility] MEDICAL OFFICE [facility] [address] Dept: [phone] Loc: [phone] MD Bret Mena 84 y.o. male Patient presents with a [...] Allergies[2] Past Surgical History: Procedure Laterality Date ND CATH PLMT L HRT & ARTS W/NJX & ANGIO IMG S&I N/A 01/23/2024 Procedure: Left Heart Cath; Surgeon: Tres Álvarez MD; Location: [facility]; Service: Cardiovascular ND CATH PLMT L HRT & ARTS W/NJX & ANGIO IMG S&I N/A 01/23/2024 Procedure: Coronary Angiogram; Surgeon: Tres Álvarez MD; Location: [facility]; Service: Cardiovascular ND L HRT CATH W/NJX L VENTRICULOGRAPHY IMG S&I N/A 01/23/2024 Procedure: Left Ventriculogram; Surgeon: Tres Álvarez MD; Location: [facility]; Service: Cardiovascular ROTATOR CUFF REPAIR TONSILLECTOMY VASCULAR [...] tablet (20 mg to (more content not included)...[facility]07-08-2025 History of Present illness Narrative* Sreedhar Zayas MD - 10/05/2024 2:11 PM EDT [facility] [address] [facility] (11) [facility] [address] [place] [address] MEDICAL OFFICE [facility] [address] Dept: [phone] Loc: [phone] MD Bret Mena 84 y.o. male Patient presents with a [...] Allergies[2] Past Surgical History: Procedure Laterality Date ND CATH PLMT L HRT & ARTS W/NJX & ANGIO IMG S&I N/A 01/23/2024 Procedure: Left Heart Cath; Surgeon: Tres Álvarez MD; Location: [facility]; Service: Cardiovascular ND CATH PLMT L HRT & ARTS W/NJX & ANGIO IMG S&I N/A 01/23/2024 Procedure: Coronary Angiogram; Surgeon: Tres Álvarez MD; Location: [facility]; Service: Cardiovascular ND L HRT CATH W/NJX L VENTRICULOGRAPHY IMG S&I N/A 01/23/2024 Procedure: Left Ventriculogram; Surgeon: Tres Álvarez MD; Location: [facility]; Service: Cardiovascular ROTATOR CUFF REPAIR TONSILLECTOMY VASCULAR [...] use: No Drug use: No * Domenica Prince RN - 10/05/2024 2:02 PM EDT Review of Systems Constitutional: Negative. HENT: Positive for hearing loss. Eyes: Negative. Respiratory: Negative. Cardiovascular: Negative. Gastrointestinal: Negative. Endocrine: Negative. Genitourinary: Negative. Musculoskeletal: Positive for neck pain. Skin: Positive for wound (left knee cut - scabbed). Allergic/Immunologic: Negative. Neurological: Negative. Hematological: Bruises/bleeds easily. Psychiatric/Behavioral: Negative. documented in this [id number] History of Present illness Narrative* Carol Gusman [...] 3mm. 5Long, Thick, Crumbly, Deformed, Discolored, Brittle, Yfjfeljnqu1dr. Nail Pathology: Right Foot: 1 (great toe)Long, Thick, Crumbly, Deformed, Discolored, Brittle, Dystrophic 5 mm. 2Long, Thick, Crumbly, Deformed, Discolored, Brittle, Dystrophic 4mm. 3Long, Thick, Crumbly, Deformed, Discolored, Brittle, Dystrophic, 4mm. 4Long, Thick, Crumbly, Deformed, Discolored, Brittle, Dystrophic,3mm. 5Long, Thick, Crumbly, Deformed, Discolored, Brittle, Naxxhkhjid9ry. Modifier: -Q9, Parastesias. Vascular: palp pulses bilat [...] consult if slow progress documented in this encounterNOMS [id number] Chief complaint+Reason for visit Narrative* Chief Complaint Admit Date ear concerns, ENT referral? September 09 9:47am Wellness December 08, 2024 9:25am Reason for Visit Admit Date Perforation of right tympanic membrane J une 2024 9:47am Dyslipidemia December 08, 2024 9:25am Essential (primary) hypertension Septemb er 2024 9:25am Iron deficiency anemia December 08 9:25am [facility] Work Phone: 1(314) 437-512406-12-2025 Evaluation note* Diagnosis Onset Date Resolution Status Admit Date Perforation of right tympanic membrane acuteJune 2024 9:47amDyslipidemiaacuteSeptember 2024 9:25amEssential (primary) hypertensionacuteSept2024 9:25amIron deficiency anemia acuteSept2024 9:25am [facility] Work Phone: 1(772) 569-977505-01-2025 History of Present illness Narrative* Carol Gusman, EDILBERTO - 07/29/2024 2:15 PM EDT Subjective Patient [...] 4mm. 5Long, Thick, Crumbly, Deformed, Discolored, Brittle, Wdlbtezmwf3bw. Nail Pathology: Right Foot: 1 (great toe)Long, Thick, Crumbly, Deformed, Discolored, Brittle, Dystrophic 5 mm. 2Long, Thick, Crumbly, Deformed, Discolored, Brittle, Dystrophic 5mm. 3Long, Thick, Crumbly, Deformed, Discolored, Brittle, Dystrophic, 4mm. 4Long, Thick, Crumbly, Deformed, Discolored, Brittle, Dystrophic,3mm. 5Long, Thick, Crumbly, Deformed, Discolored, Brittle, Nwyimgproq8zb. Modifier: -Q9, Parastesias. Vascular: palp pulses bilat [...] every day x 1wk documented in this encounterWashington University Medical CenterPltarfouwq58-57-6379 History of Present illness Narrative* Carol Gusman [...] 4mm. 5Long, Thick, Crumbly, Deformed, Discolored, Brittle, Yfyonysrut2yl. Nail Pathology: Right Foot: 1 (great toe)Long, Thick, Crumbly, Deformed, Discolored, Brittle, Dystrophic 5 mm. 2Long, Thick, Crumbly, Deformed, Discolored, Brittle, Dystrophic 5mm. 3Long, Thick, Crumbly, Deformed, Discolored, Brittle, Dystrophic, 4mm. 4Long, Thick, Crumbly, Deformed, Discolored, Brittle, Dystrophic,3mm. 5Long, Thick, Crumbly, Deformed, Discolored, Brittle, Tptlwuyldx3ad. Modifier: -Q9, Parastesias. Vascular: palp pulses bilat [...] leading to amputation reviewed documented in this encounterWashington University Medical [id number] History of Present illness Narrative* GABRIEL Ricketts [...] limited to risks of scarring, darker or school principal pigmentary changes, recurrence, incomplete removal and infection. [...] Next Visit: as scheduled documented in this encounterWashington University Medical CenterXsgktdwzgr07-14-3781 History of Present illness Narrative* Carol Gusman DPM - 05/13/2024 11:15 AM EST Subjective [...] 4mm. 5Long, Thick, Crumbly, Deformed, Discolored, Brittle, Fwisukbmvq3rk. Nail Pathology: Right Foot: 1 (great toe)Long, Thick, Crumbly, Deformed, Discolored, Brittle, Dystrophic 5 mm. 2Long, Thick, Crumbly, Deformed, Discolored, Brittle, Dystrophic 5mm. 3Long, Thick, Crumbly, Deformed, Discolored, Brittle, Dystrophic, 4mm. 4Long, Thick, Crumbly, Deformed, Discolored, Brittle, Dystrophic,3mm. 5Long, Thick, Crumbly, Deformed, Discolored, Brittle, Blurblrmfy2ip. Modifier: -Q9, Parastesias. Vascular: palp pulses bilat [...] Lesion debrided left 2 documented in this encounterWashington University Medical CenterBqdysmyitz29-60-5030 History of Present illness Narrative* Randi Gunn, [...] mostly healthy lipid profile, except improve lowering PMF42-24 pts at the next lipid drawn TBD. [...] met / pt documented in this encounterBon [facility] Evaluation note* Diagnosis Onset Date Resolution Status Admit Date Acute balanitis due to infection acuteJanuary 2024 10:38amChronic nasal congestionacuteJanuary 2024 10:38amDyspneaacuteJanuary 2024 10:38amUncircumcised maleacuteJanuary 2024 10:38amAcute balanitis due to infectionacuteFebruary 2024 8:52am Chronic nasal congestionacuteFebruary 2024 8:52amDyspneaacuteFebruary 2024 8:52amElevated PSAacuteFebruary 2024 8:52amChronic atrial fibrillation chronicFebruary 2024 8:52amNasal congestionacuteFebruary 2024 11:03am Post-nasal dripacuteFebruary 2024 11:03am [facility] Work Phone: 1(804) 953-411301-27-2025 History of Present illness Narrative* Randi Gunn, [...] mostly healthy lipid profile, except improve lowering JWQ22-54 pts at the next lipid drawn TBD. [...] meeting / pt documented in this encounterBon [facility]12-30-20[facility] History of Present illness Narrative* Andrew Hubbard RCP - 03/29/2024 10:18 AM EST 03/29/24 1013 Treatment Diagnosis Treatment Diagnosis 1 Angina Referral Date 01/26/24 Significant Cardiovascular History Chronic atrial fibrillation Individual Treatment Plan ITP Visit Type Re-assessment ITP Next Review Date 04/26/24 Visit #/Total Visits EF% 50 % Risk [...] mostly healthy lipid profile, except improve lowering MTN07-99 pts at the next lipid drawn TBD. [...] meeting per pt documented in this encounterBon [facility]12-17-[facility] Evaluation note* Diagnosis Onset Date Resolution Status Admit Date Bronchitis acuteDecember 2023 10:05am [facility] Work Phone: 1(369) 589-180412-17-2024 Evaluation note* Diagnosis Onset Date Resolution Status Admit Date Bronchitis acuteDecember 2023 10:05amAcute balanitis due to infectionacuteJanuary 2024 10:38amChronic nasal congestionacuteJanuary 2024 10:38amDyspnea acuteJanuary 2024 10:38amUncircumcised maleacuteJanuary 2024 10:38am Acute balanitis due to infectionacuteFebruary 2024 8:52amChronic nasal congestionacuteFebruary 2024 8:52amDyspneaacuteFebruary 2024 8:52am Elevated PSAacuteFebruary 2024 8:52amChronic atrial fibrillationchronic May 07, 2024 8:52am [facility] Work Phone: 1(200) 903-109512-11-2024 History of Present illness Narrative* Carol Gusman, CELSOM - 03/10/2024 11:30 AM EST Subjective Patient [...] Histories Past Medical History: Diagnosis Date A-fib ([facility]) Actinic keratosis Basal cell carcinoma chin GERD [...] 4mm. 5Long, Thick, Crumbly, Deformed, Discolored, Brittle, Zsstvsdqrk0xg. Nail Pathology: Right Foot: 1 (great toe)Long, Thick, Crumbly, Deformed, Discolored, Brittle, Dystrophic 5 mm. 2Long, Thick, Crumbly, Deformed, Discolored, Brittle, Dystrophic 5mm. 3Long, Thick, Crumbly, Deformed, Discolored, Brittle, Dystrophic, 4mm. 4Long, Thick, Crumbly, Deformed, Discolored, Brittle, Dystrophic,3mm. 5Long, Thick, Crumbly, Deformed, Discolored, Brittle, Ruxrhytjpq1va. Modifier: -Q9, Parastesias. Vascular: palp pulses bilat [...] methods and offered today documented in this encounterWashington University Medical CenterSbgtkwzlcj54-11-8303 History of Present illness Narrative* GABRIEL Ricketts [...] limited to risks of scarring, darker or school principal pigmentary changes, recurrence, incomplete removal and infection. [...] 1 year skin check documented in this encounterWashington University Medical CenterUhjiolbtyl73-88-2907 NoteConsultation Note Patient is presenting with complaints [...] call with any questions or concerns that arise.[facility] HospitalComment on above:Result Comment: Electronically Signed By: Daniel Hair DO\.br\Date and Time Signed: 03/03/24 14:13 [id number] Evaluation + Plan noteExtracted from:Title:Chronic painAuthor:Daniel Hair DODate: 03/03/24 Patient is presenting with c omplaints [...] call with any questions or concerns that arise.[facility] 12-02-2024 History of Present illness Narrative* Andrew Hubbard RCP - 03/01/2024 12:40 PM EST 12/02/24 0935 Treatment Diagnosis Treatment Diagnosis 1 Angina [...] mostly healthy lipid profile, except improve lowering JZQ84-22 pts at the next lipid drawn TBD. [...] per pt discussion documented in this encounterBon [facility]11-26-2024 NoteOperative Report Diagnosis: 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 Procedure: [...] The patient agrees to continue currently prescribed/recommended therapies.[facility] HospitalComment on above: Result Comment: Electronically Signed By: Daniel Hair DO\Date and Time Signed: 02/24/24 13:31 [id number] History of Present illness Narrative* Benigno Wallace RN - 02/02/2024 9:00 AM EST Cardiac Rehab Initial History and Assessment Bret Torres [place] 1940 [id number] 02/02/2024 Pre-cert Verification: STD MCR W/ MED. MUTUAL 2ND / PT VERBALIZES UNDERSTANDING & ACCEPTANCE OFOWN FINANCIAL RESPONSIBILITY FOR OOP NOT COVERED Primary Diagnosis: STABLE ANGINA Onset: 01/23/24 Living Will: [x] Yes [] No On File: [] Yes [x] No [] N/A Durable Power of Hotel Front Desk Agent: [x] Yes [] No Medical History Past Medical History: Diagnosis Date Atrial fibrillation (HCC) CAD (coronary artery disease) Complicated varicose veins COPD (chronic obstructive pulmonary disease) (HCC) GERD (gastroesophageal reflux disease) Gout Past Surgical History: Procedure Laterality Date COLONOSCOPY COLONOSCOPY N/A 11/15/2022 COLORECTAL CANCER SCREENING, HIGH RISK-DIAGNOSTIC performed by Janey Rivera DO at [facility] OR LEG SURGERY ROTATOR CUFF REPAIR [...] carotid bruits. Monitor rhythm-AFIB RATE-CONTROLLED VR- 67 ND- INDET. QRS- 0.06 QT- 0.42 Ejection Fraction- [...] range, a [place] rating of perceived exertion ypmyuwq83 and 16, duration of >30 - 50 [...] per patient's self report, food diary, and Gnpb-bafq-Wvwiz screening survey / [x] Initial Goal [] Progressing to Goal [] Not Meeting--Needs Reinforcement [] Goal Met [] Goal Not Met To strive to eat < or = 30% of daily caloric intake of total fat and <10% of daily caloric saturated fat tracked by patient's self-report, food diary, and Uxtk-mtpt-Oikmr screening survey / [x]Initial Goal [] Progressing [...] EST Cardiac Rehabilitation Physician Order Form Bret Torres Marely 1940 [id number] 02/02/2024 [x] Phase 2 ECG Monitored Cardiac Rehabilitation [] [place] [] Percutaneous Coronary Intervention [] Other: [] [...] Cardiac Rehab Staff documented in this encounterBon [facility]10-24-[facility] Evaluation + Plan noteExtracted from:Title:chronic painAuthor:Daniel Hair [...] call with any questions or concerns that arise.[facility] 10-24-2024 NoteConsultation Note Patient is presenting as [...] call with any questions or concerns that arise.[facility] HospitalComment on above:Result Comment: Electronically Signed By: Daniel Hair DO\Date and Time Signed: 01/22/24 11:16 [id number] NoteOperative Report Diagnosis: 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 Procedure: [...] The patient agrees to continue currently prescribed/recommended therapies.[facility] HospitalComment on above: Result Comment: Electronically Signed By: Daniel Hair DO.br\Date and Time Signed: 01/20/24 10:19 [id number] Evaluation + Plan noteExtracted from: Title:chronic painAuthor:Daniel [...] call with any questions or concerns that arise.[facility] 09-03-2024 History of Present illness Narrative* Carol Gusman [...] Histories Past Medical History: Diagnosis Date A-fib ([facility]) GERD (gastroesophageal reflux disease) Gout HTN (hypertension) ([facility]) Surgical Histories Past Surgical History: Procedure Laterality [...] 4mm. 5Long, Thick, Crumbly, Deformed, Discolored, Brittle, Vqjguuxyfm8cv. Nail Pathology: Right Foot: 1 (great toe)Long, Thick, Crumbly, Deformed, Discolored, Brittle, Dystrophic 5 mm. 2Long, Thick, Crumbly, Deformed, Discolored, Brittle, Dystrophic 5mm. 3Long, Thick, Crumbly, Deformed, Discolored, Brittle, Dystrophic, 4mm. 4Long, Thick, Crumbly, Deformed, Discolored, Brittle, Dystrophic,3mm. 5Long, Thick, Crumbly, Deformed, Discolored, Brittle, Yqeeurzhdt9ms. Modifier: -Q9, Parastesias. Vascular: palp pulses bilat [...] debridement needed sub 1 documented in this encounterWashington University Medical CenterKghwjkelki07-50-0441 Evaluation + Plan note Extracted from:Title:Left cervical RFAAuthor:Daniel Hair DO.Date:11/24/23 Diagnosis: 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 Procedure: Left cervical [...] Date:12/17/2023 09:45:00 AM Scheduled Provider:Daniel Hair DO Location[facility] Appointment Type:Pain Management - Follow Up (FT) [facility] 06-19-2024 Evaluation + Plan noteExtracted from:Title: Pain Managment [...] uncomfortablenature. We will accommodate this. TON score: 31%.[facility]06-07-2024 Evaluation + Plan note Extracted from:Title:Right cervical [...] Date:03/03/2024 01:30:00 PM Scheduled Provider:Daniel Hair DO Location:.[facility] Appointment Type:Pain Management - Follow Up (FT) [facility] 05-13-2024 Evaluation + Plan noteExtracted from:Title: Pain Managment [...] follow-up as above-mentioned. OARRS reviewed TON score: 42&[facility]05-06-2024 Evaluation + Plan note Extracted from:Title:Bilateral C3-5 medial branch block #1Author:Daniel Hair DO.Date:08/04/23 Diagnosis: 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 Procedure: Bilateral diagnostic [...] 08:00:00 AM Scheduled Provider:Heavenly Mahoney PA-C Location:[facility] [place] Appointment Type:Pain Management - Follow Up (FT) [facility]05-06-2024 Evaluation + Plan noteExtracted from: Title:Right cervical [...] 10:15:00 AM Scheduled Provider:Daniel Hair DO Location:[facility] [place] Appointment Type:Pain Management - Follow Up (FT) [facility] 04-04-2024 Evaluation + Plan noteExtracted from:Title: chronic [...] call with any questions or concerns that arise.[facility]03-04-2024 Evaluation + Plan noteExtracted from:Title:Bilateral cervical medial branch block for C3/4 and C4/5 facets #2Author:Daniel Hiar DO.Date:09/08/23 Diagnosis: 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 Procedure: Bilateral diagnostic [...] AM Scheduled Provider:Heavenly Mahoney PA-C Location:.[facility] [place] Appointment Type:Pain Management - Follow Up (FT) [facility]03-04-2024 Evaluation + Plan noteExtracted from: Title:Right lumbar [...] The patient agrees to continue currently prescribed/recommended therapies.[facility] 01-12-2024 Evaluation note* Encounter Date Diagnosis Assessment Notes Treatment Notes Treatment Clinical Notes Mar, Visit for suture removal (ICD-10 - Z48.02) no charge, remainder of sutures removed. area cleaned w H202 and steristrips reapplied. [facility] Other 01-09-2024 Evaluation note* Encounter Date Diagnosis Assessment Notes Treatment Notes Treatment Clinical Notes Mar, Visit for suture removal (ICD-10 - Z48.02) Removed 3/4 of sutures from L 2nd and 3rd fingers. Steristrips applied to encourage complete closure of lacerations. Pt will return on 04/11 for remainder of sutures removed. [facility] Other 08-01-2023 Evaluation note* Encounter Date Diagnosis Assessment Notes Treatment Notes Treatment Clinical Notes Oct, PSA elevation (ICD-10 - R97.20) [facility] Other 04-11-2023 Evaluation note* Encounter Date Diagnosis [...] take laxative or prunes juice for improvement. [facility] Other 04-03-2023 Evaluation note* Encounter Date Diagnosis Assessment Notes Treatment Notes Treatment Clinical Notes Jun, Bronchitis (ICD-10 - J40) Take medications as directed. Rest and increase fluid intake. Take meds with food to prevent stomach upset. Discussed CXR if symptoms do not improve. [facility] Other 02-22-2023 Evaluation note* Encounter Date Diagnosis [...] present meds. states he is fasting now. [facility] Other 08-17-2022 History of Present illness Narrative* SOFIA Calhoun - 11/14/2021 9:00 AM EDT Images from the original note were not included. [facility] Outpatient Occupational Therapy Daily Note Date: [...] November 23. Continued with STM, PROM, resistive biology intern exercises, and FMC this sessionw/ good tolerance. Will continue to address goals and progress patient as able Modalities: Date Initiated Tx Modality [] Electrical Stim: x __ mins [] Biphasic [] Malagasy Ramp: [] 2.0 [] 1.5 [] 1.0 [...] Time Frame for Short term goals: STG=LTG Director Of Employer Services Goals Time Frame for detention goals : 18 visits (11/30/21) Director Of Employer Services Goal 1: Pt to increase R wrist extension to 45 degrees or more in order to engage in functional self care tasks LTG 1 Current Status:: 38 degrees extension (improved 2 degrees) LTG Goal 1 Status:: In progress Director Of Employer Services Goal 2: Pt to increase R RD to 20 degrees or more to engage in functional self care tasks LTG 2 Current Status:: RD 0-20 LTG Goal 2 Status:: Met Director Of Employer Services Goal 3: Pt to increase index MCP to 75 degrees or more to engage in functional self care tasks LTG 3 Current Status:: Index MCP 75 LTG Goal 3 Status:: Met Mcfp Goal 4: Pt to touch all digits to DPC of R hand in order to make a fist LTG 4 Current Status:: unable to touch DPC (ring finger 2.4cm; middle finger 3cm; pinky 1cm & index 1cm from DPC) LTG Goal 4 Status:: In progress Director Of Employer Services Goal 5: Pt to reduce R handed [...] [place] Date: 11/14/2021 [facility] [employer] Phone: [phone] History of Present illness Narrative* SOFIA Byrne - 11/12/2021 9:00 AM EDT Images from the original note were not included. [facility] Outpatient Occupational Therapy Daily Note Date: [...] mins @ 45 int [] Biphasic [] Malagasy Ramp: [] 2.0 [] 1.5 [x] 1.0 [...] Time Frame for Short term goals: STG=LTG Director Of Employer Services Goals Time Frame for detention goals : 18 visits (11/30/21) Mcfp Goal 1: Pt to increase R wrist extension to 45 degrees or more in order to engage in functional self care tasks LTG 1 Current Status:: 38 degrees extension (improved 2 degrees) Director Of Employer Services Goal 2: Pt to increase R RD to 20 degrees or more to engage in functional self care tasks LTG 2 Current Status:: RD 0-20 LTG Goal 2 Status:: Met Director Of Employer Services Goal 3: Pt to increase index MCP to 75 degrees or more to engage in functional self care tasks LTG 3 Current Status:: Index MCP 75 LTG Goal 3 Status:: Met Mcfp Goal 4: Pt to touch all digits to DPC of R hand in order to make a fist LTG 4 Current Status:: unable to touch DPC (ring finger 2.4cm; middle finger 3cm; pinky 1cm & index 1cm from DPC) LTG Goal 4 Status:: In progress Director Of Employer Services Goal 5: Pt to reduce R handed [...] Byrne Date: 11/12/2021 [facility] [employer] Phone: [phone] History of Present illness Narrative* Nelly Trevizo OT - 11/09/2021 9:00 AM EDT Images from the original note were not included. [facility] Outpatient Occupational Therapy Daily Note Date: [...] mins @ 45 intensity [] Biphasic [x] Malagasy Ramp: [] 2.0 [] 1.5 [x] 1.0 [...] reported fatigue in wrist joint after completion Una pear picker/hold/in-hand translation 3x10 Completed to address right index [...] Time Frame for Short term goals: STG=LTG Mcfp Goals Time Frame for termite control representative goals : 18 visits (11/30/21) Mcfp Goal 1: Pt to increase R wrist extension to 45 degrees or more in order to engage in functional self care tasks LTG 1 Current Status:: 38 degrees extension (improved 2 degrees) Mcfp Goal 2: Pt to increase R RD to 20 degrees or more to engage in functional self care tasks LTG 2 Current Status:: RD 0-20 LTG Goal 2 Status:: Met Mcfp Goal 3: Pt to increase index MCP to 75 degrees or more to engage in functional self care tasks LTG 3 Current Status:: Index MCP 75 LTG Goal 3 Status:: Met Director Of Employer Services Goal 4: Pt to touch all digits to DPC of R hand in order to make a fist LTG 4 Current Status:: unable to touch DPC (ring finger 2.4cm; middle finger 3cm; pinky 1cm & index 1cm from DPC) LTG Goal 4 Status:: In progress Director Of Employer Services Goal 5: Pt to reduce R handed [...] Cruz/Brian Date: 11/09/2021 documented [facility] [employer] Phone: [phone] History of Present illness Narrative* Mary Brizuela OT - 11/07/2021 9:00 AM EDT Images from the original note were not included. [facility] Outpatient Occupational Therapy Daily Note Date: [...] mins @ 39 intensity [] Biphasic [x] Malagasy Ramp: [] 2.0 [] 1.5 [x] 1.0 [] 0.5 Cont/Rest: [] Cont [] [x] 10/30 [] 10/10 Location: 2 pads [...] extend all at once Wrist jux 1x10 Una pear picker X10 beads 3x 1 drop, 0 drops [...] Time Frame for Short term goals: STG=LTG Director Of Employer Services Goals Time Frame for termite control representative goals : 18 visits (11/30/21) Mcfp Goal 1: Pt to increase R wrist extension to 45 degrees or more in order to engage in functional self care tasks LTG 1 Current Status:: 38 degrees extension (improved 2 degrees) Mcfp Goal 2: Pt to increase R RD to 20 degrees or more to engage in functional self care tasks LTG 2 Current Status:: RD 0-20 LTG Goal 2 Status:: Met Mcfp Goal 3: Pt to increase index MCP to 75 degrees or more to engage in functional self care tasks LTG 3 Current Status:: Index MCP 75 LTG Goal 3 Status:: Met Mcfp Goal 4: Pt to touch all digits to DPC of R hand in order to make a fist LTG 4 Current Status:: unable to touch DPC (ring finger 2.4cm; middle finger 3cm; pinky 1cm & index 1cm from DPC) LTG Goal 4 Status:: In progress Mcfp Goal 5: Pt to reduce R handed MCP edema to 10cm or less in order to make fist LTG 5 Current Status:: 20.6 cm at MCPs Plan: [x] Continue per current plan of care [] Hold therapy due to: [] Specific Instructions for future sessions: [] Other: Time In: 900 Time Out: 945 Timed Coded Minutes: 45 Total Treatment Time: 45 SUKHJINDER Randhawa OTR/L Date: 11/07/2021 documented in this encounterBON [employer] Phone: [phone] History of Present illness Narrative* Mary Brizuela, OT - 11/05/2021 9:00 AM EDT Images from the original note were not included. [facility] Outpatient Occupational Therapy Daily Note Date: 11/05/2021 Patient: Bret Yap : 1940 Referring Provider (secondary): Isrrael Greene MD Diagnosis: Rupture of extensor tendon of R ring & little finger OT Insurance Information: Medicare- 36 visits approved; will just need an updated POC after [id number] visits completed. 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 control representative goals : 18 visits (11/30/21) Mcfp Goal 1: Pt to increase R wrist extension to 45 degrees or more in order to engage in functional self care tasks LTG 1 Current Status:: 38 degrees extension (improved 2 degrees) LTG Goal 1 Status:: In progress Director Of Employer Services Goal 2: Pt to increase R RD to 20 degrees or more to engage in functional self care tasks LTG 2 Current Status:: RD 0-20 LTG Goal 2 Status:: Met Mcfp Goal 3: Pt to increase index MCP to 75 degrees or more to engage in functional self care tasks LTG 3 Current Status:: Index MCP 75 LTG Goal 3 Status:: Met Director Of Employer Services Goal 4: Pt to touch all digits to DPC of R hand in order to make a fist LTG 4 Current Status:: unable to touch DPC (ring finger 2.4cm; middle finger 3cm; pinky 1cm & index 1cm from DPC) LTG Goal 4 Status:: In progress Mcfp Goal 5: Pt to reduce R handed MCP edema to 10cm or less in order to make fist LTG 5 Current Status:: 20.6 cm at MCPs LTG Goal 5 Status:: In progress Time In: 900 Time Out: 945 Timed Coded Minutes: 45 Total Treatment Time: 45 SUKHJINDER Randhawa, OTR/L Date: 11/05/2021 documented in this encounterBON [employer] Phone: [phone] History of Present illness Narrative* Mary Brizuela OT - 11/02/2021 9:15 AM EDT Images from the original note were not included. [facility] Outpatient Occupational Therapy Daily Note Date: 11/02/2021 Patient: Bret Yap : 1940 Referring Provider (secondary): Isrrael Greene MD Diagnosis: Rupture of extensor tendon of R ring & little finger Onset Date: 09/04/21 OT Insurance Information: Medicare- 36 visits approved; will just need an updated POC after [id number] visits completed. 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 for detention goals : 18 visits (11/30/21) Mcfp Goal 1: Pt to increase R wrist extension to 45 degrees or more in order to engage in functional self care tasks LTG 1 Current Status:: extension 36 degrees (improved 1 degree since 10.09.21) LTG Goal 1 Status:: In progress Director Of Employer Services Goal 2: Pt to increase R RD to 20 degrees or more to engage in functional self care tasks LTG 2 Current Status:: RD 0-10 LTG Goal 2 Status:: In progress Mcfp Goal 3: Pt to increase index MCP to 75 degrees or more to engage in functional self care tasks LTG 3 Current Status:: Index MCP 74 LTG Goal 3 Status:: In progress Director Of Employer Services Goal 4: Pt to touch all digits to DPC of R hand in order to make a fist LTG 4 Current Status:: unable to touch DPC LTG Goal 4 Status:: In progress Director Of Employer Services Goal 5: Pt to reduce R handed MCP edema to 10cm or less in order to make fist LTG 5 Current Status:: 21.5 cm at MCPs LTG Goal 5 Status:: In progress Time In: 915 Time Out: 1000 Timed Coded Minutes: 45 Total Treatment Time: 45 SUKHJINDER Randhawa, OTR/L Date: 11/02/2021 documented in this encounterBON [employer] Phone: [phone] History of Present illness Narrative* Mary Brizuela OT - 10/30/2021 9:45 AM EDT Images from the original note were not included. [facility] Outpatient Occupational Therapy Daily Note Date: 10/30/2021 Patient: Bret Yap : 1940 Onset Date: 09/04/21 OT Insurance Information: Medicare- 36 visits approved; will just need an updated POC after visits completed. Per Physician Order Total # [...] Time Frame for Short term goals: STG=LTG Director Of Employer Services Goals Time Frame for detention goals : 18 visits (11/30/21) Director Of Employer Services Goal 1: Pt to increase R wrist extension to 45 degrees or more in order to engage in functional self care tasks LTG 1 Current Status:: extension 36 degrees (improved 1 degree since 10.09.21) LTG Goal 1 Status:: In progress Mcfp Goal 2: Pt to increase R RD to 20 degrees or more to engage in functional self care tasks LTG 2 Current Status:: RD 0-10 LTG Goal 2 Status:: In progress Director Of Employer Services Goal 3: Pt to increase index MCP to 75 degrees or more to engage in functional self care tasks LTG 3 Current Status:: Index MCP 74 LTG Goal 3 Status:: In progress Director Of Employer Services Goal 4: Pt to touch all digits to DPC of R hand in order to make a fist LTG 4 Current Status:: unable to touch DPC LTG Goal 4 Status:: In progress Director Of Employer Services Goal 5: Pt to reduce R handed MCP edema to 10cm or less in order to make fist LTG 5 Current Status:: 21.5 cm at MCPs LTG Goal 5 Status:: In progress Time In: 945 Time Out: 1030 Timed Coded Minutes: 45 Total Treatment Time: 45 SUKHJINDER Randhawa, OTR/L Date: 10/30/2021 [facility] [employer] Phone: [phone] History of Present illness Narrative* Mary Brizuela OT - 10/29/2021 9:15 AM EDT Images from the original note were not included. [facility] Outpatient Occupational Therapy Daily Note Date: 10/29/2021 Patient: Bret Yap : 1940 Referring Provider (secondary): Isrrael Greene MD Diagnosis: Rupture of extensor tendon of R ring & little finger Onset Date: 09/04/21 OT Insurance Information: Medicare- 36 visits approved; will just need an updated POC after [id number] visits completed. 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 : 18 visits (11/30/21) Director Of Employer Services Goal 1: Pt to increase R wrist extension to 45 degrees or more in order to engage in functional self care tasks LTG 1 Current Status:: extension 36 degrees (improved 1 degree since 10.09.21) LTG Goal 1 Status:: In progress Mcfp Goal 2: Pt to increase R RD to 20 degrees or more to engage in functional self care tasks LTG 2 Current Status:: RD 0-10 LTG Goal 2 Status:: In progress Mcfp Goal 3: Pt to increase index MCP to 75 degrees or more to engage in functional self care tasks LTG 3 Current Status:: Index MCP 74 LTG Goal 3 Status:: In progress Director Of Employer Services Goal 4: Pt to touch all digits to DPC of R hand in order to make a fist LTG 4 Current Status:: unable to touch DPC LTG Goal 4 Status:: In progress Mcfp Goal 5: Pt to reduce R handed MCP edema to 10cm or less in order to make fist LTG 5 Current Status:: 21.5 cm at MCPs LTG Goal 5 Status:: In progress Time In: 915 Time Out: 1000 Timed Coded Minutes: 45 Total Treatment Time: 45 SUKHJINDER Randhawa, OTR/L Date: 10/29/2021 documented [facility] encounter[facility] [employer] Phone: [phone] History of Present illness Narrative* Nelly Trevizo OT - 10/24/2021 2:30 PM EDT Images from the original note were not included. [facility] Outpatient Occupational Therapy Daily Note Date: [...] Time Frame for Short term goals: STG=LTG Director Of Employer Services Goals Time Frame for detention goals : 18 visits (11/30/21) Director Of Employer Services Goal 1: Pt to increase R wrist extension to 45 degrees or more in order to engage in functional self care tasks LTG 1 Current Status:: extension 36 degrees (improved 1 degree since 10.09.21) LTG Goal 1 Status:: In progress Director Of Employer Services Goal 2: Pt to increase R RD to 20 degrees or more to engage in functional self care tasks LTG 2 Current Status:: RD 0-10 LTG Goal 2 Status:: In progress Director Of Employer Services Goal 3: Pt to increase index MCP to 75 degrees or more to engage in functional self care tasks LTG 3 Current Status:: Index MCP 74 LTG Goal 3 Status:: In progress Director Of Employer Services Goal 4: Pt to touch all digits to DPC of R hand in order to make a fist LTG 4 Current Status:: unable to touch DPC LTG Goal 4 Status:: In progress Mcfp Goal 5: Pt to reduce R handed MCP edema to 10cm or less in order to make fist LTG 5 Current Status:: 21.5 cm at MCPs LTG Goal 5 Status:: In progress Time In: 1430 Time Out: 1515 Timed Coded Minutes: 45 Total Treatment Time: 45 Nelly Trevizo OTR/L Date: 10/24/2021 documented in this encounterBON [employer] Phone: [phone] [facility] History of Present illness Narrative* Nelly Trevizo OT - 10/19/2021 9:15 AM EDT Images from the original note were not included. [facility] Outpatient Occupational Therapy Daily Note Date: 10/19/2021 Patient: Bret Yap : 1940 Referring Provider (secondary): Isrrael Greene MD Diagnosis: Rupture of extensor tendon of R ring & little finger Onset Date: 09/04/21 OT Insurance Information: Medicare- 36 visits approved; will just need an updated POC after [id number] visits completed. 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 control representative goals : 4 visits 10/19/2021) Mcfp Goal 1: Pt to increase R wrist extension to 45 degrees or more in order to engage in functional self care tasks LTG 1 Current Status:: extension 36 degrees (improved 1 degree since 10.09.21) LTG Goal 1 Status:: Not Met Director Of Employer Services Goal 2: Pt to increase R RD to 20 degrees & R UD to 25 degrees or more to engage in functional self care tasks LTG 2 Current Status:: RD 0-10 and UD 0-25 (met UD goal) LTG Goal 2 Status:: Partially met Mcfp Goal 3: Pt to increase index MCP to 75 degrees or more to engage in functional self care tasks LTG 3 Current Status:: Index MCP 74 LTG Goal 3 Status:: Not Met Director Of Employer Services Goal 4: Pt to touch all digits to DPC of R hand in order to make a fist LTG 4 Current Status:: unable to touch DPC LTG Goal 4 Status:: Not Met Mcfp Goal 5: Pt to reduce R handed MCP edema to 10cm or less in order to make fist LTG 5 Current Status:: 21.5 cm at MCPs LTG Goal 5 Status:: Not Met Time In: 0915 Time Out: 1000 Timed Coded Minutes: 45 Total Treatment Time: 45 NAHUN Cruz/L Date: 10/19/2021 [facility] Phone: [phone] History of Present illness Narrative* Nelly Trevizo OT - 10/17/2021 9:15 AM EDT Images from the original note were not included. [facility] Outpatient Occupational Therapy Daily Note Date: 10/17/2021 Patient: Bret Yap : 1940 Referring Provider (secondary): Isrrael Greene MD Diagnosis: Rupture of extensor tendon of R ring & little finger Onset Date: 09/04/21 OT Insurance Information: Medicare- 36 visits approved; will just need an updated POC after [id number] visits completed. Total # of Visits Approved: [...] PROM to right digits/wrist. 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 hand and was able [...] MCP 67 LTG Goal 3 Status:: Updated Mcfp Goals Time Frame for detention goals : 4 visits 10/19/2021) Mcfp Goal 1: Pt to increase R wrist extension to 45 degrees or more in order to engage in functional self care tasks LTG 1 Current Status:: extension 35 degrees LTG Goal 1 Status:: Updated Director Of Employer Services Goal 2: Pt to increase R RD to 20 degrees & R UD to 25 degrees or more to engage in functional self care tasks LTG 2 Current Status:: RD 0-15 & UD 0-20(lost 4 degrees of UD in 2 weeks) LTG Goal 2 Status:: Updated Director Of Employer Services Goal 3: Pt to increase index MCP to 75 degrees or more to engage in functional self care tasks LTG 3 Current Status:: Index MCP 67 LTG Goal 3 Status:: Updated Director Of Employer Services Goal 4: Pt to touch all digits to DPC of R hand in order to make a fist LTG 4 Current Status:: unable to touch DPC LTG Goal 4 Status:: Updated Mcfp Goal 5: Pt to reduce R handed MCP edema to 10cm or less in order to make fist LTG 5 Current Status:: 21.2cm at MCPs LTG Goal 5 Status:: Updated Time In: 914 Time Out: 1000 Timed Coded Minutes: 45 Total Treatment Time: 45 NAHUN Cruz/Brian Date: 10/17/2021 documented in this encounterBON [employer] Phone: [phone] History of Present illness Narrative* Mary Brizuela OT - 10/16/2021 9:45 AM EDT Images from the original note were not included. [facility] Outpatient Occupational Therapy Daily Note Date: 10/16/2021 Patient: Bret Yap : 1940 Referring Provider (secondary): Isrrael Greene MD Diagnosis: Rupture of extensor tendon of R ring & little finger Onset Date: 09/04/21 OT Insurance Information: Medicare- 36 visits approved; will just need an updated POC after [id number] visits completed. 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 for detention goals : 4 visits 10/19/2021) Director Of Employer Services Goal 1: Pt to increase R wrist extension to 45 degrees or more in order to engage in functional self care tasks LTG 1 Current Status:: extension 35 degrees LTG Goal 1 Status:: Updated Director Of Employer Services Goal 2: Pt to increase R RD to 20 degrees & R UD to 25 degrees or more to engage in functional self care tasks LTG 2 Current Status:: RD 0-15 & UD 0-20(lost 4 degrees of UD in 2 weeks) LTG Goal 2 Status:: Updated Mcfp Goal 3: Pt to increase index MCP to 75 degrees or more to engage in functional self care tasks LTG 3 Current Status:: Index MCP 67 LTG Goal 3 Status:: Updated Mcfp Goal 4: Pt to touch all digits to DPC of R hand in order to make a fist LTG 4 Current Status:: unable to touch DPC LTG Goal 4 Status:: Updated Director Of Employer Services Goal 5: Pt to reduce R handed MCP edema to 10cm or less in order to make fist LTG 5 Current Status:: 21.2cm at MCPs LTG Goal 5 Status:: Updated Time In: 945 Time Out: 1030 Timed Coded Minutes: 45 Total Treatment Time: 45 SUKHJINDER Randhawa, OTR/l Date: 10/16/2021 documented in this encounterB[facility] [employer] Phone: [phone] History of Present illness Narrative* Mary Brizuela OT - 10/12/2021 9:15 AM EDT Images from the original note were not included. [facility] Outpatient Occupational Therapy Daily Note Date: 10/12/2021 Patient: Bret Yap : 1940 Referring Provider (secondary): Isrrael Greene MD Diagnosis: Rupture of extensor tendon of R ring & little finger OT Insurance Information: Medicare- 36 visits approved; will just need an updated POC after [id number] visits completed. 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 : 4 visits 10/19/2021) Mcfp Goal 1: Pt to increase R wrist extension to 45 degrees or more in order to engage in functional self care tasks LTG 1 Current Status:: extension 35 degrees LTG Goal 1 Status:: Updated Mcfp Goal 2: Pt to increase R RD to 20 degrees & R UD to 25 degrees or more to engage in functional self care tasks LTG 2 Current Status:: RD 0-15 & UD 0-20(lost 4 degrees of UD in 2 weeks) LTG Goal 2 Status:: Updated Mcfp Goal 3: Pt to increase index MCP to 75 degrees or more to engage in functional self care tasks LTG 3 Current Status:: Index MCP 67 LTG Goal 3 Status:: Updated Mcfp Goal 4: Pt to touch all digits to DPC of R hand in order to make a fist LTG 4 Current Status:: unable to touch DPC LTG Goal 4 Status:: Updated Director Of Employer Services Goal 5: Pt to reduce R handed MCP edema to 10cm or less in order to make fist LTG 5 Current Status:: 21.2cm at MCPs LTG Goal 5 Status:: Updated Time In: 918 Time Out: 1000 Timed Coded Minutes: 42 Total Treatment Time: 42 SUKHJINDER Kirkpatrick, OTR/L documented [facility] [employer] Phone: [phone] History of Present illness Narrative* Mary Brizuela OT - 10/05/2021 3:00 PM EDT Images from the original note were not included. [facility] Outpatient Occupational Therapy Daily Note Date: 10/05/2021 Patient: Bret Yap : 1940 Referring Provider (secondary): Isrrael Greene MD Diagnosis: Rupture of extensor tendon of R ring & little finger Onset Date: 09/04/21 OT Insurance Information: Medicare- 36 visits approved; will just need an updated POC after [id number] visits completed. Total # of Visits Approved: [...] fist STG Goal 4 Status:: Not Met Mcfp Goals Time Frame for termite control representative goals : 6 weeks (10/09/2021) Mcfp Goal 1: Pt to increase R wrist flexion to 25 degrees or more & R wrist extension to 45 degrees or more in order to engage in functional self care tasks LTG 1 Current Status:: flexion 0-28 & extenion 0-30- flexion met LTG Goal 1 Status:: Partially met Director Of Employer Services Goal 2: Pt to increase R RD to 20 degrees & R UD to 25 degrees or more to engage in functional self care tasks LTG 2 Current Status:: RD 0-15 & UD 0-24 LTG Goal 2 Status:: In progress Mcfp Goal 3: Pt to increase R supination to 70 degrees or more & pronation to 75 degrees or more to engage in functional self care tasks LTG 3 Current Status:: sup 0-85 & pronation 0-90 LTG Goal 3 Status:: Met Director Of Employer Services Goal 4: Pt to increase index MCP [...] met LTG Goal 4 Status:: Partially met Director Of Employer Services Goal 5: Pt to increase index PIP [...] PIP LTG Goal 5 Status:: Partially met Mcfp Goal 6: Pt to increase index DIP to 30 degrees or more; middle DIP to 35 degrees or more;ring DIP to 35 degrees or more & pinky DIP to 35 degrees or more to engage in functional self care tasks Mcfp Goal 7: Pt to complete R hand 9 hole peg test in 30 seconds or less to engage in functional fine motor tasks Time In: 1505 Time Out: 1545 Timed Coded Minutes: 40 Total Treatment Time: 40 SUKHJINDER Randhawa, Date: 10/05/2021 documented in this encounterBON [employer] Phone: [phone] Evaluation note* Encounter Date Diagnosis Assessment Notes Treatment Notes Treatment Clinical Notes Sep, Iron deficiency anemia (ICD-10 - D50.9) Sep,arretts esophagus (ICD-10 - K22.70) Sep,GERD (gastroesophageal reflux disease) (ICD-10 - K21.9) [employer] Other 07-05-2022 History of Present illness Narrative* Mary Brizuela OT - 10/02/2021 2:45 PM EDT Images from the original note were not included. [facility] Occupational Therapy Daily Note Date: 10/02/2021 Patient: Bret Yap : 1940 Referring Provider (secondary): Isrrael Greene MD Diagnosis: Rupture of extensor tendon of R ring & little finger Onset Date: 09/04/21 OT Insurance Information: Medicare- 36 visits approved; will just need an updated POC after [id number] visits completed. 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 for termite control representative goals : 6 weeks (10/09/2021) Director Of Employer Services Goal 1: Pt to increase R wrist flexion to 25 degrees or more & R wrist extension to 45 degrees or more in order to engage in functional self care tasks LTG 1 Current Status:: flexion 0-28 & extenion 0-30- flexion met LTG Goal 1 Status:: Partially met Mcfp Goal 2: Pt to increase R RD to 20 degrees & R UD to 25 degrees or more to engage in functional self care tasks LTG 2 Current Status:: RD 0-15 & UD 0-24 LTG Goal 2 Status:: In progress Mcfp Goal 3: Pt to increase R supination to 70 degrees or more & pronation to 75 degrees or more to engage in functional self care tasks LTG 3 Current Status:: sup 0-85 & pronation 0-90 LTG Goal 3 Status:: Met Director Of Employer Services Goal 4: Pt to increase index MCP [...] met LTG Goal 4 Status:: Partially met Director Of Employer Services Goal 5: Pt to increase index PIP [...] PIP LTG Goal 5 Status:: Partially met Mcfp Goal 6: Pt to increase index DIP to 30 degrees or more; middle DIP to 35 degrees or more;ring DIP to 35 degrees or more & pinky DIP to 35 degrees or more to engage in functional self care tasks Time In: 1450 Time Out: 1530 Timed Coded Minutes: 40 Total Treatment Time: 40 SUKHJINDER Randhawa, OTR/L Date: 10/02/2021 documented in this encounterBON [employer] Phone: [phone] 481-295006-29-2022 History of Present illness Narrative* Mary Brizuela OT - 09/26/2021 2:45 PM EDT Images from the original note were not included. [facility] Outpatient Occupational Therapy Daily Note Date: 09/26/2021 Patient: Bret Yap : 1940 Referring Provider (secondary): Isrrael Greene MD Diagnosis: Rupture of extensor tendon of R ring & little finger Onset Date: 09/04/21 OT Insurance Information: Medicare- 36 visits approved; will just need an updated POC after [id number] visits completed. 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 Assessment Assessment: Continued w/ paraffin/STM/scar [...] fist STG Goal 4 Status:: Not Met Director Of Employer Services Goals Time Frame for detention goals : 6 weeks (10/09/2021) Mcfp Goal 1: Pt to increase R wrist flexion to 25 degrees or more & R wrist extension to 45 degrees or more in order to engage in functional self care tasks LTG 1 Current Status:: flexion 0-28 & extenion 0-30- flexion met LTG Goal 1 Status:: Partially met Director Of Employer Services Goal 2: Pt to increase R RD to 20 degrees & R UD to 25 degrees or more to engage in functional self care tasks LTG 2 Current Status:: RD 0-15 & UD 0-24 LTG Goal 2 Status:: In progress Director Of Employer Services Goal 3: Pt to increase R supination [...] met LTG Goal 4 Status:: Partially met Mcfp Goal 5: Pt to increase index PIP [...] PIP LTG Goal 5 Status:: Partially met Director Of Employer Services Goal 6: Pt to increase index DIP to 30 degrees or more; middle DIP to 35 degrees or more;ring DIP to 35 degrees or more & pinky DIP to 35 degrees or more to engage in functional self care tasks Mcfp Goal 7: Pt to complete R hand 9 hole peg test in 30 seconds or less to engage in functional fine motor tasks Time In: 1445 Time Out: 1530 Timed Coded Minutes: 45 Total Treatment Time: 45 SUKHJINDER Randhawa, OTR/L Date: 09/26/2021 documented in this encounterBON [facility] [employer] Phone: [phone] History of Present illness Narrative* Mary Brizuela OT - 09/25/2021 9:15 AM EDT Images from the original note were not included. [facility] Outpatient Occupational Therapy Daily Note Date: [...] fist STG Goal 4 Status:: Not Met Director Of Employer Services Goals Time Frame for detention goals : 6 weeks (10/09/2021) Director Of Employer Services Goal 1: Pt to increase R wrist flexion to 25 degrees or more & R wrist extension to 45 degrees or more in order to engage in functional self care tasks LTG 1 Current Status:: flexion 0-28 & extenion 0-30- flexion met LTG Goal 1 Status:: Partially met Director Of Employer Services Goal 2: Pt to increase R RD to 20 degrees & R UD to 25 degrees or more to engage in functional self care tasks LTG 2 Current Status:: RD 0-15 & UD 0-24 LTG Goal 2 Status:: In progress Mcfp Goal 3: Pt to increase R supination to 70 degrees or more & pronation to 75 degrees or more to engage in functional self care tasks LTG 3 Current Status:: sup 0-85 & pronation 0-90 LTG Goal 3 Status:: Met Director Of Employer Services Goal 4: Pt to increase index MCP [...] met LTG Goal 4 Status:: Partially met Director Of Employer Services Goal 5: Pt to increase index PIP [...] PIP LTG Goal 5 Status:: Partially met Mcfp Goal 6: Pt to increase index DIP to 30 degrees or more; middle DIP to 35 degrees or more;ring DIP to 35 degrees or more & pinky DIP to 35 degrees or more to engage in functional self care tasks Director Of Employer Services Goal 7: Pt to complete R hand 9 hole peg test in 30 seconds or less to engage in functional fine motor tasks Time In: 920 Time Out: 1000 Timed Coded Minutes: 40 Total Treatment Time: 40 SUKHJINDER Randhawa, OTR/L Date: 09/25/2021 documented in this encounterBON [employer] Phone: [phone] 835-989306-24-2022 History of Present illness Narrative* Mary Brizuela OT - 09/21/2021 8:30 AM EDT Images from the original note were not included. [facility] Outpatient Occupational Therapy Daily Note Date: 09/21/2021 Patient: Bret Yap : 1940 Referring Provider (secondary): Isrrael Greene MD Diagnosis: Rupture of extensor tendon of R ring & little finger Onset Date: 09/04/21 OT Insurance Information: Medicare- 36 visits approved; will just need an updated POC after [id number] visits completed. 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 Time Frame for detention goals : 6 weeks (10/09/2021) Mcfp Goal 1: Pt to increase R wrist flexion to 25 degrees or more & R wrist extension to 45 degrees or more in order to engage in functional self care tasks Director Of Employer Services Goal 2: Pt to increase R RD to 20 degrees & R UD to 25 degrees or more to engage in functional self care tasks Director Of Employer Services Goal 3: Pt to increase R supination to 70 degrees or more & pronation to 75 degrees or more to engage in functional self care tasks Mcfp Goal 4: Pt to increase index MCP to 75 degrees or more; middle MCP to 65 degrees or more;Ring MCP to 45 degrees or more; & pinky MCP to 45 degrees or more to engage in functional self care tasks Director Of Employer Services Goal 5: Pt to increase index PIP to 65 degrees or more; middle PIP to 60 degrees or more;ring PIP to 70 degrees or more & pinky PIP to 55 degrees or more to engage in functional self care tasks Director Of Employer Services Goal 6: Pt to increase index DIP to 30 degrees or more; middle DIP to 35 degrees or more;ring DIP to 35 degrees or more & pinky DIP to 35 degrees or more to engage in functional self care tasks Director Of Employer Services Goal 7: Pt to complete R hand 9 hole peg test in 30 seconds or less to engage in functional fine motor tasks Time In: 835 Time Out: 915 Timed Coded Minutes: 40 Total Treatment Time: 40 SUKHJINDER Randhawa, OTR/L Date: 09/21/2021 documented in this encounterBON [employer] Phone: [phone] History of Present illness Narrative* Mary Brizuela OT - 09/19/2021 9:00 AM EDT Images from the original note were not included. [facility] Outpatient Occupational Therapy Daily Note Date: [...] fist STG Goal 4 Status:: In progress Director Of Employer Services Goals Time Frame for detention goals : 6 weeks (10/09/2021) Director Of Employer Services Goal 1: Pt to increase R wrist flexion to 25 degrees or more & R wrist extension to 45 degrees or more in order to engage in functional self care tasks Mcfp Goal 2: Pt to increase R RD to 20 degrees & R UD to 25 degrees or more to engage in functional self care tasks Mcfp Goal 3: Pt to increase R supination to 70 degrees or more & pronation to 75 degrees or more to engage in functional self care tasks Mcfp Goal 4: Pt to increase index MCP to 75 degrees or more; middle MCP to 65 degrees or more;Ring MCP to 45 degrees or more; & pinky MCP to 45 degrees or more to engage in functional self care tasks Mcfp Goal 5: Pt to increase index PIP to 65 degrees or more; middle PIP to 60 degrees or more;ring PIP to 70 degrees or more & pinky PIP to 55 degrees or more to engage in functional self care tasks Mcfp Goal 6: Pt to increase index DIP to 30 degrees or more; middle DIP to 35 degrees or more;ring DIP to 35 degrees or more & pinky DIP to 35 degrees or more to engage in functional self care tasks Mcfp Goal 7: Pt to complete R hand 9 hole peg test in 30 seconds or less to engage in functional fine motor tasks Time In: 900 Time Out: 945 Timed Coded Minutes: 45 Total Treatment Time: 45 SUKHJINDER Randhawa, OTR/L Date: 09/19/2021 documented in this encounterBON [employer] [facility] [employer] Phone: [phone] 339-884506-15-2022 History of Present illness Narrative* Mary Brizuela OT - 09/12/2021 2:00 PM EDT Images from the original note were not included. [facility] Outpatient Occupational Therapy Daily Note Date: 09/12/2021 Patient: Bret Yap : 1940 Referring Provider (secondary): Isrrael Greene MD Diagnosis: Rupture of extensor tendon of R ring & little finger Onset Date: 09/04/21 OT Insurance Information: Medicare- 36 visits approved; will just need an updated POC after [id number] visits completed. 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 : 6 weeks (10/09/2021) Director Of Employer Services Goal 1: Pt to increase R wrist flexion to 25 degrees or more & R wrist extension to 45 degrees or more in order to engage in functional self care tasks Director Of Employer Services Goal 2: Pt to increase R RD to 20 degrees & R UD to 25 degrees or more to engage in functional self care tasks Mcfp Goal 3: Pt to increase R supination to 70 degrees or more & pronation to 75 degrees or more to engage in functional self care tasks Director Of Employer Services Goal 4: Pt to increase index MCP to 75 degrees or more; middle MCP to 65 degrees or more;Ring MCP to 45 degrees or more; & pinky MCP to 45 degrees or more to engage in functional self care tasks Director Of Employer Services Goal 5: Pt to increase index PIP to 65 degrees or more; middle PIP to 60 degrees or more;ring PIP to 70 degrees or more & pinky PIP to 55 degrees or more to engage in functional self care tasks Mcfp Goal 6: Pt to increase index DIP to 30 degrees or more; middle DIP to 35 degrees or more;ring DIP to 35 degrees or more & pinky DIP to 35 degrees or more to engage in functional self care tasks Director Of Employer Services Goal 7: Pt to complete R hand 9 hole peg test in 30 seconds or less to engage in functional fine motor tasks Time In: 1400 Time Out: 1445 Timed Coded Minutes: 40 Total Treatment Time: 45 SUKHJINDER Randhawa, OTR/L Date: 09/12/2021 documented in this encounterBON [employer] Phone: [phone]) [phone] History of Present illness Narrative* Mary Brizuela OT - 09/10/2021 9:15 AM EDT Images from the original note were not included. [facility] Outpatient Occupational Therapy Daily Note Date: 09/10/2021 Patient: Bret Yap : 1940 Referring Provider (secondary): Isrrael Greene MD Diagnosis: Rupture of extensor tendon of R ring & little finger OT Insurance Information: Medicare- 36 visits approved; will just need an updated POC after [id number] visits completed. Total # of Visits Approved: [...] hand in order to make a fist Director Of Employer Services Goals Time Frame for detention goals : 6 weeks (10/09/2021) Director Of Employer Services Goal 1: Pt to increase R wrist flexion to 25 degrees or more & R wrist extension to 45 degrees or more in order to engage in functional self care tasks Mcfp Goal 2: Pt to increase R RD to 20 degrees & R UD to 25 degrees or more to engage in functional self care tasks Mcfp Goal 3: Pt to increase R supination to 70 degrees or more & pronation to 75 degrees or more to engage in functional self care tasks Mcfp Goal 4: Pt to increase index MCP to 75 degrees or more; middle MCP to 65 degrees or more;Ring MCP to 45 degrees or more; & pinky MCP to 45 degrees or more to engage in functional self care tasks Director Of Employer Services Goal 5: Pt to increase index PIP to 65 degrees or more; middle PIP to 60 degrees or more;ring PIP to 70 degrees or more & pinky PIP to 55 degrees or more to engage in functional self care tasks Mcfp Goal 6: Pt to increase index DIP to 30 degrees or more; middle DIP to 35 degrees or more;ring DIP to 35 degrees or more & pinky DIP to 35 degrees or more to engage in functional self care tasks Mcfp Goal 7: Pt to complete R hand 9 hole peg test in 30 seconds or less to engage in functional fine motor tasks Time In: 915 Time Out: 1000 Timed Coded Minutes: 40 Total Treatment Time: 45 SUKHJINDER Randhawa, OTR/L Date: 09/10/2021 documented in this encounterBON [facility] [employer] Phone: [phone] History of Present illness Narrative* Mary Brizuela OT - 09/05/2021 10:15 AM EDT Images from the original note were not included. 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 : 6 weeks (10/09/2021) Mcfp Goal 1: Pt to increase R wrist flexion to 25 degrees or more & R wrist extension to 45 degrees or more in order to engage in functional self care tasks Director Of Employer Services Goal 2: Pt to increase R RD to 20 degrees & R UD to 25 degrees or more to engage in functional self care tasks Director Of Employer Services Goal 3: Pt to increase R supination to 70 degrees or more & pronation to 75 degrees or more to engage in functional self care tasks Director Of Employer Services Goal 4: Pt to increase index MCP to 75 degrees or more; middle MCP to 65 degrees or more;Ring MCP to 45 degrees or more; & pinky MCP to 45 degrees or more to engage in functional self care tasks Mcfp Goal 5: Pt to increase index PIP to 65 degrees or more; middle PIP to 60 degrees or more;ring PIP to 70 degrees or more & pinky PIP to 55 degrees or more to engage in functional self care tasks Director Of Employer Services Goal 6: Pt to increase index DIP to 30 degrees or more; middle DIP to 35 degrees or more;ring DIP to 35 degrees or more & pinky DIP to 35 degrees or more to engage in functional self care tasks Mcfp Goal 7: Pt to complete R hand 9 hole peg test in 30 seconds or less to engage in functional fine motor tasks Time In: 1015 Time Out: 1100 Timed Coded Minutes: 40 Total Treatment Time: 45 SUKHJINDER Randhawa, OTR/L Date: 09/05/2021 documented in this encounterBON [employer] Phone: [phone] History of Present illness Narrative* Mary Brizuela OT - 09/04/2021 9:30 AM EDT Images from the original note were not included. [facility] Outpatient Occupational Therapy Evaluation Date: 09/04/2021 [...] will just need an updated POC after [id number] visits completed. Total # of Visits Approved: [...] is the preferred language of the patient/guardian?: Lao Is an power press operator required?: No How does the patient/guardian prefer [...] DIP 0-70: 0-23 Left Hand Strength - Procurement Forester (lbs) Handle Setting 2: 53, 54, 59= [...] hand in order to make a fist Mcfp Goals Time Frame for detention goals : 6 weeks (10/09/2021) Mcfp Goal 1: Pt to increase R wrist flexion to 25 degrees or more & R wrist extension to 45 degrees or more in order to engage in functional self care tasks Director Of Employer Services Goal 2: Pt to increase R RD to 20 degrees & R UD to 25 degrees or more to engage in functional self care tasks Mcfp Goal 3: Pt to increase R supination to 70 degrees or more & pronation to 75 degrees or more to engage in functional self care tasks Director Of Employer Services Goal 4: Pt to increase index MCP to 75 degrees or more; middle MCP to 65 degrees or more;Ring MCP to 45 degrees or more; & pinky MCP to 45 degrees or more to engage in functional self care tasks Director Of Employer Services Goal 5: Pt to increase index PIP to 65 degrees or more; middle PIP to 60 degrees or more;ring PIP to 70 degrees or more & pinky PIP to 55 degrees or more to engage in functional self care tasks Director Of Employer Services Goal 6: Pt to increase index DIP to 30 degrees or more; middle DIP to 35 degrees or more;ring DIP to 35 degrees or more & pinky DIP to 35 degrees or more to engage in functional self care tasks Director Of Employer Services Goal 7: Pt to complete R hand 9 hole peg test in 30 seconds or less to engage in functional fine motor tasks Time In: 937 Time Out: 1037 Timed Coded Minutes: 0 Total Treatment Time: 60 SUKHJINDER Randhawa, OTR/Brian 09/04/2021 documented in this encounterBON [facility]ENTER[facility] Phone: [phone] Miscellaneous Notes* Telephone Encounter - Miranda Holland Pss - 07/16/2021 3:03 PM EDT Called Lili Brynn spoke with Mary. She states they have [...] states they have received referral and their community service officer coordinator will be calling patient soon to schedule. Miranda Holland Pss * Telephone Encounter - Miranda Carson - 07/04/2021 10:11 AM EDT Called Lili Swain spoke with Mary. She states she has not yet gone thru all of their faxes at this time and states for me to call back to check on status of this referral. Miranda Carson * Telephone Encounter - Prabha [facility] - 07/02/2021 1:06 PM EDT Records faxed. * Telephone Encounter - Miranda Holland [facility] - 07/02/2021 12:46 PM EDT Dominique: Information ready for you. Miranda Carson * Telephone Encounter - Jatinder Krause - 07/02/2021 11:55 AM EDT See GI for scopes Patient would prefer to stay locally. Dominique/Ty: Can you please refer patient to [facility]? Thanks! Jatinder Krause documented in this encounterWood [facility]04-[facility] Miscellaneous Notes* Telephone Encounter - Aure Riddle RN - 07/13/2021 3:12 PM EDT Pt calls and leaves a voicemail stating he isn't able to get in with a local GI doctor until late August and is asking if this is okay. Reviewed previous telephone encounter and Dr Manzanares is ok with this. Pt notified. Aure Riddle RN documented in this encounterWood County Hospital04-08-2022 Miscellaneous Notes* Telephone Encounter - Ketan Manzanares MD - 07/06/2021 4:55 PM EDT End of August is fine. No worries. ThanksJESSICA * Telephone Encounter - Ruben Tellez [...] comes for a followup on 07-17-21. Thanks, JESSICA * Telephone Encounter - Ruben Tellez RN - 07/06/2021 1:33 PM EDT Received message from pt wanting to know lab results and if colonoscopy was still needed. SJK: Any message for pt regarding lab results? Proceed with GI referral? Ruben Tellez RN documented in this encounterWood County Hospital04-04-2022 NoteHNO ID: [id number] Author: Ketan Manzanares MD Service: ? Author [...] substance abuse. He lives with his in [place], [place] MEDICATIONS AND ALLERGIES: Reviewed PHYSICAL EXAM [...] which included preparing to see the patient, [id number] patient care, co (more content not included)...[facility]04-04-2022 History of Present illness Narrative* Ketan Manzanares MD - 07/02/2021 11:00 AM EDT HEMATOLOGY INITIAL CONSULTATION July 02, 2021 REFERRAL REQUESTED BY: Faizan Bragg PCP and other physicians involved in patient's care: Faizan Bragg (PCP) REASON FOR CONSULTATION: Anemia HEMATOLOGICAL HISTORY: No previous hematological evaluation. No previous transfusion history. Family history noncontributory. Previous colonoscopies in 2007, 2012 and 2017 with evidence of polyp that was removed. [...] substance abuse. He lives with his in [place], [place] MEDICATIONS AND ALLERGIES: Reviewed PHYSICAL EXAM [...] which included preparing to see the patient, difs-ti-mniy patient care, completing clinical documentation, obtaining and/or reviewing separately obtained history, performing a medically appropriate examination, counseling and educating the pat ient/family/caregiver, ordering medications, tests, or procedures, independently interpreting results (not separately reported) and communicating results to the patient/family/caregiver. documented in this encounterWood County Hospital05-20-[facility]21 Physician Hospital Discharge summaryCLINICAL SUMMARY Please take this summary document to your follow up appointments. [facility] 08/17/20 13:08 [address] [place]. [address] PATIENT INFORMATION Name: BRET YAP Address: [address] [address] Age: 80 Years Phone: [phone] : 1940 12:00 MRN: [id number] Sex: Male Race: White Ethnicity: Not Hispan/Lat Admitted From: Clinic or [facility] Medical Service: Orthopedic Surgery Nurse Unit/Bed: ([place]) 2N 0216-01 Admit Date: 08/14/2020 08:28 PCP: Aaron DE LA PAZ , Faizan Waite PHYSICIANS INVOLVED WITH CARE Attending Physicians: Viviana DE LA PAZ , Norman Torres - Orthopaedic Surg Admitting Physician: Norman Michelle MD Orthopaedic Surg Primary Care Physician:Aaron DE LA PAZ , Faizan Waite,[facility], - Consults: Logan DE LA PAZ , Abdifatah - Internal Medicine Kimmie DE LA PAZ , Kamran nIgram - Internal Medicine Josh DE LA PAZ , Torrey Hernandez - Internal Medicine [facility], TAMAR - Internal Medicine Problems Active Gout GERD [...] 30 Day(s), 08/14/20 14:39:00 EDT Last Dose: 05/20/21 06:00:00 COMMENTS and SPECIAL INSTRUCTIONS: Do Not Chew, Crush Or Cut Tablet Docusate/Senna 50 mg/8.6 mg Tab (Senokot-S (more content not included)...[facility]05-20-2021 Hospital Progress notePatient: BRET YAP Age: 80 years Sex: Male : 1940 Associated Diagnoses: None Author: Kamran Burks MD Assessment Assessment Diagnosis: DDD (degenerative disc disease), lumbar ([id number] M51.36, Working, Medical). Plan DDD, s/p PLIF [...] 95 (08/17 05:38) Oxygen Delivery: Nasal cannula (05/20 05:38) O2 Device Flow: 2 L/min Pain [...] Tenderness Neuro/Psych - A (more content not included)...[facility] 08-17-2020 Hospital Progress notePatient: BRET YAP MRN: ([facility])- [id number] Age: 80 years Sex: Male : 1940 [...] on the hallway on a couple of occasions.[facility]05-19-2021 [facility] Progress notePatient: BRET YAP MRN: ([id number] Age: 80 years Sex: Male : 1940 Associated Diagnoses: None Author: Kamran Bruks MD Comments Reviewed KUB from today. Does [...] and clear liquid diet until actual formed [facility]05-19-2021 Hospital Progress notePatient: BRET YAP MRN: ([id number] Age: 80 years Sex: Male : 1940 Associated Diagnoses: None Author: Kamran Burks MD Assessment Assessment Diagnosis: DDD (degenerative disc disease), lumbar ([id number] M51.36, Working, Medical). Plan DDD, s/p PLIF [...] Begin date: 08/15 06:47 (more content not included)...[facility]05-18-2021 [facility] Progress notePatient: BRET YAP MRN: ([id number] Age: 80 years Sex: Male : 1940 Associated Diagnoses: None Author: Kamran Burks MD Comments Notified by nursing staff the patient is somewhat of a firm distended abdomen and still reported noflatus. He did have a suppository and MOM and senna earlier. He refused MiraLAX as previously ordered day of surgery last evening. Will check KUB and [facility] Progress notePatient: BRET YAP MRN: ([id number] Age: 80 years Sex: Male : 1940 Associated Diagnoses: None Author: Kamran Burks MD Assessment Assessment Diagnosis: DDD (degenerative disc disease), lumbar ([id number] M51.36, Working, Medical). Plan DDD, s/p PLIF [...] Magnesium No result HEMATOLOGY (more content not included)...[facility]05-17-2021 Hospital Progress notePatient: BRET YAP MRN: ([id number] Age: 80 years Sex: Male : 1940 Associated Diagnoses: None Author: Kimmie DE LA PAZ , Kamran Ingram Assessment Assessment Diagnosis: DDD (degenerative disc disease), lumbar ([id number] M51.36, Working, Medical). 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 has [...] EKG - sent to Dr Vergara in [place], [place]. doctor told patient he is ok [...] % 07/25/20 11:29, Basophil (more content not included)...[facility]05-11-2021 History of Present illness Narrative* Divina Garcia, [facility] - 08/08/2020 9:30 AM EDT The patient was educated on the use of a holter monitor. The patient's comprehension was high. The patient was able to verbalize recall. The patient was instructed on how and when to return the monitor. documented in this encounterPeer5 Phone: evaluation note* Diagnosis Atrioventricular septal defect (AVSD) Ventricular septal defect Aortic valve stenosis, etiology of cardiac valve disease unspecified Atrial flutter, unspecified type (HCC) Abnormal EKG Nonspecific abnormal electrocardiogram (ECG) (EKG) Encounter for lipid screening for cardiovascular disease Vitamin D deficiency Unspecified vitamin D deficiency documented in this encounter [employer] Phone: evaluation note* Diagnosis Abnormal EKG Nonspecific abnormal electrocardiogram (ECG) (EKG) Pre-op evaluation Preoperative examination, unspecified Encounter for lipid screening for cardiovascular disease Fatigue, unspecified type documented in this encounter [employer] Phone: evaluation note* Diagnosis Atrioventricular septal defect (AVSD) Ventricular septal defect Aortic valve stenosis, etiology of cardiac valve disease unspecified documented in this encounter [employer] Phone: evaluation note* Diagnosis Vasculitis (HCC)- Primary Arteritis, unspecified Essential hypertension Unspecified essential hypertension Peripheral edema Edema Chronic obstructive pulmonary disease, unspecified COPD type (HCC) documented in this encounter [employer] Phone: evaluation note* Diagnosis Atrioventricular septal defect (AVSD) Ventricular septal defect Aortic valve stenosis, etiology of cardiac valve disease unspecified Atrial flutter, unspecified type (HCC) Abnormal EKG Nonspecific abnormal electrocardiogram (ECG) (EKG) Encounter for lipid screening for cardiovascular disease Vitamin D deficiency Unspecified vitamin D deficiency Fatigue, unspecified type documented in this encounter [employer] Phone: evaluation note* Diagnosis Abnormal EKG Nonspecific abnormal electrocardiogram (ECG) (EKG) documented in this encounter [employer] Phone: evaluation note* Diagnosis Abnormal EKG Nonspecific abnormal electrocardiogram (ECG) (EKG) documented in this encounter [employer] Phone: evaluation note* Diagnosis Fatigue, unspecified type Leg edema Edema Discoloration of skin of lower leg Other symptoms involving skin and integumentary tissues documented in this encounter [employer] Work Phone: evalhogtub note* Diagnosis Normocytic anemia- Primary Anemia, unspecified MGUS (monoclonal gammopathy of unknown significance) Monoclonal paraproteinemia [facility] Vitamin D deficiency Unspecified vitamin D deficiency Encounter for lipid screening for cardiovascular disease Atrial flutter, unspecified type (HCC) documented in this encounter [facility] [employer] Work Phone: evaluation noteNo assessment information [facility] Work Phone: Evaluation note* Diagnosis Suspected COVID-19 virus infection Cough Runny nose Other diseases of nasal cavity and sinuses documented in this encounter [facility] [employer] Work Phone: evalaanpkz noteNo InformationNometropolitan [facility] [employer] Other Evaluation note* Diagnosis Atrial flutter, unspecified type (HCC) Vitamin D deficiency Unspecified vitamin D deficiency Encounter for lipid screening for cardiovascular disease Aortic valve stenosis, etiology of cardiac valve disease unspecified Colon wall thickening Other specified disorder of intestines documented in this encounter [employer] Work Phone: evaltcqrau note* Diagnosis Atrial flutter, unspecified type (HCC) Vitamin D deficiency Unspecified vitamin D deficiency Encounter for lipid screening for cardiovascular disease Aortic valve stenosis, etiology of cardiac valve disease unspecified Fatigue, unspecified type Colon wall thickening Other specified disorder of intestines documented in this encounter [facility] [employer] Work Phone: evaluation note* Diagnosis Atrial flutter, unspecified type (HCC) Vitamin D deficiency Unspecified vitamin D deficiency Colon wall thickening Other specified disorder of intestines documented in this encounter [employer] Phone: evalvhjapb note* Diagnosis Onset Date Resolution Status Essential (primary) hypertension acuteScreening PSA (prostate specific antigen)acute [facility] Work Phone: Evaluation note* Diagnosis Shortness of breath documented in this encounter [facility] [employer]Evaluation note* Diagnosis Atrial flutter, unspecified type (HCC) Vitamin D deficiency Unspecified vitamin D deficiency Encounter for lipid screening for cardiovascular disease Fatigue, unspecified type documented in this encounter [facility] [employer] HEALTHEvaluation note* Diagnosis Onset Date Resolution Status Essential (primary) hypertension acuteMedicare annual wellness visit, subsequentacutePost-nasal dripacute Screening PSA (prostate specific antigen)acuteBronchitisacute [facility] Work Phone: Evaluation note* Diagnosis Other specified dermatitis- Primary History of basal cell carcinoma Personal history of other malignant neoplasm of skin Personal history of squamous cell carcinoma of skin Personal history of other malignant neoplasm of skin Seborrheic keratosis Actinic keratosis Neoplasm of unspecified behavior of bone, soft tissue, and skin documented in this encounter [facility] HealthcareEvaluation note* Diagnosis Idiopathic progressive polyneuropathy- Primary Onychomycosis Dermatophytosis of nail documented in this encounter [facility] HealthcareEvaluation note* Diagnosis Idiopathic progressive polyneuropathy- Primary Onychomycosis Dermatophytosis of nail documented in this encounter [facility] HealthcareEvaluation note* Diagnosis Atrial flutter, unspecified type ([facility]) Vitamin D deficiency Unspecified vitamin D deficiency Encounter for lipid screening for cardiovascular disease Aortic valve stenosis, etiology of cardiac valve disease unspecified Fatigue, unspecified type documented in this encounter [facility] HealthEvaluation note* Diagnosis Shortness of breath documented in this encounter [facility] HealthEvaluation note* Diagnosis Other specified dermatitis- Primary Actinic keratosis documented in this encounter [facility] HealthcareEvaluation note* Diagnosis Chest pain, unspecified type Shortness of breath Atrial flutter, unspecified type ([facility]) Encounter for lipid screening for cardiovascular disease Aortic valve stenosis, etiology of cardiac valve disease unspecified Vitamin D deficiency disease Unspecified vitamin D deficiency Other fatigue documented in this encounter [facility] HealthEvaluation note* Diagnosis Ulcer of right heel and midfoot, limited to breakdown of skin (CMS/HCC)- Primary Idiopathic progressive polyneuropathy Onychomycosis Dermatophytosis of nail Abrasion of right heel with infection documented in this encounter [facility] HealthcareEvaluation note* Diagnosis Ulcer of right heel and midfoot, limited to breakdown of skin (CMS/HCC)- Primary Abrasion of right heel with infection documented in this encounter [facility] HealthcareEvaluation note* Diagnosis Elevated PSA Elevated prostate specific antigen (PSA) documented in this encounter [facility] HealthEvaluation note* Diagnosis Idiopathic progressive polyneuropathy- Primary Onychomycosis Dermatophytosis of nail documented in this encounter [facility] HealthcareEvaluation note* Diagnosis Sensorineural hearing loss, bilateral- Primary [facility] Diagnosis Sensorineural hearing loss, bilateral- Primary Impaired auditory discrimination, bilateral documented in [facility] encounter [facility]* Diagnosis Actinic keratosis- Primary Inflamed seborrheic keratosis documented in this encounter [facility] HealthcareEvaluation note* Diagnosis Corns and callosities- Primary Idiopathic progressive polyneuropathy Hammer toe of left foot Hallux valgus of left foot Pain of toe of left foot documented in this encounter [facility] HealthcareEvaluation note* Diagnosis Shortness of breath Edema of right lower leg Edema of left foot documented in this encounter [facility] HealthEvaluation note* Diagnosis Chronic atrial fibrillation (HCC) Atrial fibrillation [facility] Diagnosis Shortness of breath Edema of right lower leg Edema of left foot documented in this encounter [facility] HealthEvaluation note* Diagnosis Idiopathic progressive polyneuropathy- Primary Onychomycosis Dermatophytosis of nail Pain of toe of left foot Hammer toe of left foot Ulcer of left foot, limited to breakdown of skin (HCC) [facility] Diagnosis 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) Varicose veins of bilateral lower extremities with pain [facility] HealthHistory and physical note Author Mik Amaya [facility] October 23, 2021 12:49pmNote Date/TimeJuly 2021 12:49pm[place] [address] Gastroenterology H&P Signed Patient: Bret Yap MR#: [id number] : 1940 Acct:[id number] Age/Sex: 81 / M Adm Date: 2 Loc: Room: Type: [facility] Attending Dr: Mik Amaya MD Copies to: [...] <Electronically signed by Mik Amaya MD> 10/23/21 1241 [facility] Work Phone: History general Narrative - Reported* Type Description Date Medical History venous insufficiency Surgical Historyrotator cuff tear repair bilateralSurgical Historyvein stripping and SEPS procedureSurgical HistoryEVLT Left [id number] HistorySclerotherapy Bilat [id number] HistorySclerotherapy Right LE03/2010Surgical History Sclerotherapy Right LE03/2010Surgical HistoryEVLT right leg01/05/2016Surgical HistoryEVLT-LT LE05/24/2016Hospitalization Historysee [employer] Other History general Narrative - Reported* Type Description Date Medical History venous insufficiency Surgical Historyrotator cuff tear repair bilateralSurgical Historyvein stripping and SEPS procedureSurgical HistoryEVLT Left [id number] HistorySclerotherapy Bilat [id number] HistorySclerotherapy Right LE03/2010Surgical History Sclerotherapy Right LE03/2010Surgical HistoryEVLT right leg01/05/2016Surgical HistoryEVLT-LT LE05/24/2016Surgical HistoryRight hand surgery tendon repair 07/2021Hospitalization Historysee abvoe [facility] [employer] Other Hospital course Narrative No data available for this section [facility]* Attachments The following attachments cannot be sent through Care Everywhere. * Edema: Leg and Ankle (Lao) * Vasculitis: General Info (Lao) * Hypertension: General Info (Lao) * COPD: General Info (Lao) documented in this [facility] Work Phone: Hospital Discharge instructions No data available for this section [facility] [place] No data available for this section [facility] for referral (narrative)No reason for referral information availablePromedica [facility] Work Phone: Reason for visit NarrativePATIENT HERE AT THE REQUEST OF DR SEVILLA FOR EVALUATION & TREATMENT OF NORMOCYTIC ANEMIAMulticare [facility] [employer] Other Reason for visit Narrative* (Routine) - OpenSpecialty Diagnoses / ProceduresReferred By ContactReferred To Contact Diagnoses Chest pain, unspecified type Procedures Nuclear stress test with myocardial perfusion Wing Álvarez MD [address] [place] [address] Referral IDStatusReasonStart DateExpiration DateVisits RequestedVisits [id number] MARYAM [facility] for visit Narrative* Cardiology (Routine) - Not Required - RTASpecialtyDiagnoses / ProceduresReferred By ContactReferred To ContactCardiology Diagnoses Chronic atrial fibrillation (HCC) Procedures Echo (TTE) complete (PRN contrast/bubble/strain/3D) ND ECHO TTHRC R-T 2D W/WOM-MODE COMPL SPEC&COLR D ND TTE W OR WO FOL WCON,DOPPLER Shaw Miesha Juan Jose, EDUCATIONAL ASSISTANT - LINE PULLER [address] [place] [address] Phone: tel: fax: Referral IDStatusReasonStart DateExpiration DateVisits RequestedVisits [id number] Required - RTA [facility] for visit Narrative* Imaging (Emergency) - Not Required - RTASpecialtyDiagnoses / ProceduresReferred By ContactReferred To ContactCardiology Diagnoses Shortness of breath Edema of right lower leg Edema of left foot Procedures Vascular duplex lower extremity venous bilateral Vascular duplex lower extremity venous bilateral Miesha Clark APRN - CNP [address] [place] [address] Phone: tel: fax: Referral IDStatusReasonSthailey DateExpiration DateVisits RequestedVisits [id number] Required - RTA [facility] for visit Narrative* Other (Routine) - Not Required - RTASpecialtyDiagnoses / ProceduresReferred By ContactReferred To ContactCardiology Diagnoses 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) Varicose veins of bilateral lower extremities with pain Procedures Vascular duplex reflux venous insufficiency study bilateral Arturo Palma MD [address] [place] [address] [address] [facility] [place] [address] Phone: tel: fax: Referral IDStatusReasonStart DateExpiration DateVisits RequestedVisits [id number] Required - RTA [facility] Summary Purpose Family History Relationship Condition Age at Onset Recorded Date/T loraine father Malignant neoplasm Unknown Not SpecifiedPerforation of intestineUnknownbrotherParkinson's diseaseUnknown Relationship Condition Age at Onset Recorded Date/T loraine father Malignant neoplasm Unknown motherPerforation of intestineUnknownbrotherParkinson's diseaseUnknownbrother DeceasedUnknownParkinson's diseaseUnknownfatherDeceasedUnknownmotherDeceased Unknown Advance Directives TypeDate RecordedPatient RepresentativeExplanationAdvance Directives and Living Will11/03/2019 8:51 AMTypeDate RecordedPatient RepresentativeExplanationACP- Advance DirectiveACP-Power of AttorneyTypeDate RecordedPatient Hot Kettle Tender ExplanationAdvance Directives and Living Will11/03/2019 8:51 AMTypeDate Recorded Patient RepresentativeExplanationAdvance Directives and Living WillPower of AttorneyTypeDate RecordedPatient RepresentativeExplanationACP-Advance Directive ACP-Power of Hotel Front Desk Agent Advance Directive Response Recorded Date/ Time Advance Directives No January 11:35am Advance Directive Response Recorded Date/ Time Advance Directives No January 10:35am Date ActivatedDate YkaigexkzlvZfskdzwq38/25/2024 8:15 AM01/23/2024 10:43 AMDate ActivatedDate IxlnjmokzoqYybgetaf60/25/2024 8:15 AM01/23/2024 10:43 AM Reason for Referral StatusReasonSpecialtyDiagnoses / ProceduresReferred By ContactReferred To ContactClosedRadiology Diagnoses Bilateral optic atrophy Procedures MR Brain/Orbit With And Without Contrast Nita Hernandez MD [address] [place] [address] StatusReasonSpecialtyDiagnoses / ProceduresReferred By ContactReferred To ContactPending ReviewCardiology Diagnoses Atrioventricular septal defect (AVSD) Aortic valve stenosis, etiology of cardiac valve disease unspecified Atrial flutter, unspecified type (HCC) Abnormal EKG Encounter for lipid screening for cardiovascular disease Vitamin D deficiency Procedures EKG 12 Lead Wing Álvarez MD [address] [place] [address] StatusReasonSpecialtyDiagnoses / ProceduresReferred By ContactReferred To ContactClosedCardiology Diagnoses Atrioventricular septal defect (AVSD) Aortic valve stenosis, etiology of cardiac valve disease unspecified Procedures ECHO Complete 2D W Doppler W Color Wing Álvarez MD [address] [place] [address] StatusReasonSpecialtyDiagnoses / ProceduresReferred By ContactReferred To ContactClosed Diagnoses Atrioventricular septal defect (AVSD) Aortic valve stenosis, etiology of cardiac valve disease unspecified Procedures Holter monitor 48 hour Wing Álvarez MD [address] [place] [address] StatusReasonSpecialtyDiagnoses / ProceduresReferred By ContactReferred To ContactOpenCardiology Diagnoses Abnormal EKG Procedures EKG 12 Lead Wing Álvarez MD [address] [place] [address] SpecialtyDiagnoses / ProceduresReferred By ContactReferred To Contact Gastroenterology Diagnoses Normocytic anemia Procedures CONSULT TO GASTROENTEROLOGY OFFICE/OUTPATIENT [facility] 60-74 MINUTES Ketan Manzanares MD [address] [place] [address] Dr. Ortega, [place] [address] Referral IDStatusReasonStart DateExpiration DateVisits RequestedVisits [id number] Review PCP Requested Referral /[id number] / ProceduresReferred By ContactReferred To ContactCardiology Diagnoses Vitamin D deficiency Encounter for lipid screening for cardiovascular disease Atrial flutter, unspecified type (HCC) Procedures EKG 12 Lead Wing Álvarez MD [address] [place] [address] Referral IDStatusReasonStart DateExpiration DateVisits RequestedVisits [id number] / Procedures Referred By ContactReferred To ContactCardiology Diagnoses Atrial flutter, unspecified type (HCC) Vitamin D deficiency Encounter for lipid screening for cardiovascular disease Aortic valve stenosis, etiology of cardiac valve disease unspecified Procedures EKG 12 Lead Wing Álvarez MD [address] [place] [address] Referral IDStatusReasonDecatur DateExpiration DateVisits RequestedVisits [id number] / ProceduresReferred By ContactReferred To Contact Diagnoses Shortness of breath Procedures Echo (TTE) complete (PRN contrast/bubble/strain/3D) ND ECHO TTHRC R-T 2D W/WOM-MODE COMPL SPEC&COLR D ND TTE W OR WO FOL WCON,DOPPLER Wing Álvarez MD [address] [place] [address] Referral IDStatusReasonStart DateExpiration DateVisits RequestedVisits [id number] Required - RTA/ Assessments Diagnosis Bilateral optic atrophy Unspecified optic atrophy Diagnosis Compression fracture of thoracic vertebra, initial encounter, unspecified thoracic vertebral level (HCC) Closed head injury, initial encounter History of Present Illness * Kate Rivera, PT - 11/29/2019 2:00 PM EDT [facility] Outpatient Physical Therapy Evaluation Date: 11/29/2019 Patient: Bret Yap : 1940 Referring Practitioner: Dr. Asher Wilde Referral Date : 11/22/19 Diagnosis: M16.11; Right hip primary osteoarthritis Treatment Diagnosis: Back Pain Onset Date: 11/22/19(Referral) PT Insurance Information: [facility], [place] Total # of Visits Approved: 12 Per Physician Order Total # of Visits to Date: 1 Subjective Additional Pertinent Hx: Patient c/o pain that is intermittent in right low back and radiating to right buttock. Main c/o pain with standing and walking are limited by severe pain. Sitting and layingreleive pain. 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 Objective [...] correct body mechanics with lifting following education detention goals Time Frame for detention goals : 12 termite control representative goal 1: Decrease pain right buttock 2/10 at worst x 3days detention goal 2: Patient to walk and stand for 30 minutes or longer without pain interfering termite control representative goal 3: Improve functional activities with Oswestry score <8/45 Patient's Goal: Be able to stand and walk without right buttock pain interfering Timed Code Treatment Minutes: 15 Minutes Total Treatment Time: 45 Time In: 14:05 Time Out: 14:50 Kate Rivera, PT Date: 11/29/2019 documented in this encounter* Gary Mcnamara BILL COLLECTOR - 12/08/2019 8:00 AM EDT [facility] Outpatient Physical Therapy Daily Note Date: 12/08/2019 Patient Name: Bret Yap : 1940 (79 y.o.) Referring Practitioner: Dr. Asher Wilde Referral Date : 11/22/19 Diagnosis: M16.11; Right hip primary osteoarthritis Treatment Diagnosis: Back Pain Onset Date: 11/22/19(Referral) PT Insurance Information: [employer] med [place] Total # of Visits Approved: 12 Per [...] body mechanics with lifting following education -MET Director Of Employer Services Goals - Time Frame for termite control representative goals : 12 termite control representative goal 1: Decrease pain right buttock 2/10 at worst x 3days detention goal 2: Patient to walk and stand for 30 minutes or longer without pain interfering termite control representative goal 3: Improve functional activities with Oswestry score <8/45 Post Treatment Pain: 1/10 Time In: 0800 Time Out : 0836 Timed Code Treatment Minutes: 36 Minutes Total Treatment Time: 36 Minutes Gary Mcnamara PTA Date: 12/08/2019 documented in this encounter* Anders VEE Vega - 12/10/2019 8:15 AM EDT [facility] Outpatient Physical Therapy Daily Note Date: 12/10/2019 Patient Name: Bret Yap : 1940 (79 y.o.) Referring Practitioner: Dr. Asher Wilde Referral Date : 11/22/19 Diagnosis: M16.11; Right hip primary osteoarthritis Treatment Diagnosis: Back Pain Onset Date: 11/22/19(Referral) PT Insurance Information: [employer] Total # of Visits Approved: 12 Per [...] body mechanics with lifting following education -MET Mcfp Goals - Time Frame for detention goals : 12 termite control representative goal 1: Decrease pain right buttock 2/10 at worst x 3days termite control representative goal 2: Patient to walk and stand for 30 minutes or longer without pain interfering termite control representative goal 3: Improve functional activities with Oswestry score <8/45 Post Treatment Pain: 0/10 Time In: 0817 Time Out : 0857 Timed Code Treatment Minutes: 40 Minutes Total Treatment Time: 40 Minutes Gary Mcnamara PTA Date: 12/10/2019 documented in this encounter* Gary Mcnamara PTA - 12/13/2019 8:45 AM EDT [facility] Outpatient Physical Therapy Daily Note Date: 12/13/2019 Patient Name: Bret Yap : 1940 (79 y.o.) Referring Practitioner: Dr. Asher Wilde Referral Date : 11/22/19 Diagnosis: M16.11; Right hip primary osteoarthritis Treatment Diagnosis: Back Pain Onset Date: 11/22/19(Referral) PT Insurance Information: [facility], [place] Total # of Visits Approved: 12 Per [...] body mechanics with lifting following education -MET Director Of Employer Services Goals - Time Frame for termite control representative goals : 12 detention goal 1: Decrease pain right buttock 2/10 at worst x 3days termite control representative goal 2: Patient to walk and stand for 30 minutes or longer without pain interfering termite control representative goal 3: Improve functional activities with Oswestry score <8/45 Post Treatment Pain: 0/10 Time In: 0845 Time Out : 09 Timed Code Treatment Minutes: 40 Minutes Total Treatment Time: 40 Minutes Gary Mcnamara PTA Date: 12/13/2019 documented in this encounter* Kate Rivera PT - 12/16/2019 1:45 PM EDT [facility] Outpatient Physical Therapy Daily Note Date: 12/16/2019 Patient Name: Bret Yap : 1940 (79 y.o.) Referring Practitioner: Dr. Asher Wilde Referral Date : 11/22/19 Diagnosis: M16.11; Right hip primary osteoarthritis Treatment Diagnosis: Back Pain Onset Date: 11/22/19(Referral) PT Insurance Information: [facility], [place] Total # of Visits Approved: 12 Per [...] body mechanics with lifting following education -MET Director Of Employer Services Goals - Time Frame for termite control representative goals : 12 detention goal 1: Decrease pain right buttock 2/10 at worst x 3days termite control representative goal 2: Patient to walk and stand for 30 minutes or longer without pain interfering termite control representative goal 3: Improve functional activities with Oswestry score <8/45 Post Treatment Pain: 2/10 Time In: 13:45 Time Out : 14:30 Timed Code Treatment Minutes: 45 Minutes Total Treatment Time: 45 Minutes Kate Rivera, PT Date: 12/16/2019 documented in this encounter* Altagracia Cohen - 12/22/2019 1:00 PM EDT [facility] Date: 12/22/2019 Patient Name: Bret Yap : 1940 Pt Cancelled Appt due to pain, patient states he just went to chiropractor and wants to see how treatment from chiropractor does before continuing therapy. Altagracia Cohen Date: 12/22/2019 documented in this encounter* Kate Rivera, PT - 12/15/2019 8:00 AM EDT [facility] Outpatient Physical Therapy Daily Note Date: 12/15/2019 Patient Name: Bret Yap : 1940 (79 y.o.) Referring Practitioner: Dr. Asher Wilde Referral Date : 11/22/19 Diagnosis: M16.11; Right hip primary osteoarthritis Treatment Diagnosis: Back Pain Onset Date: 11/22/19(Referral) PT Insurance Information: [facility], [place] Total # of Visits Approved: 12 Per [...] body mechanics with lifting following education -MET Mcfp Goals - Time Frame for detention goals : 12 detention goal 1: Decrease pain right buttock 2/10 at worst x 3days termite control representative goal 2: Patient to walk and stand for 30 minutes or longer without pain interfering termite control representative goal 3: Improve functional activities with Oswestry score <8/45 Post Treatment Pain: 2/10 Time In: 8:00 Time Out : 8:45 Timed Code Treatment Minutes: 45 Minutes Total Treatment Time: 45 Minutes Kate Rivera, PT Date: 12/15/2019 documented in this encounter Discharge Instructions * Attachments The following attachments cannot be sent through Care Everywhere. * Compression Fracture: Spine (Lao) * Head Injury: Closed: General Info (Lao) documented in this encounter Procedure Findings Note Patient: BRET YAP MRN: [facility])-[id number] [facility]: [id number] Age: 80 years Sex: Male : 1940 [...] immunization November 9:25am Essential (primary) hypertension Septemb er 2024 9:25am Iron deficiency anemia December 08 9:25am Medicare annual wellness visit, subseque nt December 08, 2024 9:25am Chronic atrial fibrillation December 082024 9:25am Cellulitis of right foot December 22, 2024 10:27am Reason for Visit Admit Date Dyslipidemia December 08, 2024 9:25am Encounter for immunization November 9:25am Essential (primary) hypertension Septemb er 2024 9:25am Iron deficiency anemia December 08 9:25am Medicare annual wellness visit, subseque nt December 08, 2024 9:25am Chronic atrial fibrillation December 082024 9:25am Cellulitis of right foot December 22, 2024 10:27am Ulcer of extremity due to chronic venous insufficiency February 07, 2025 2:12pm Additional Source Comments (unrecognized sect ion and content) No Status Records FoundNo Status Records FoundNo Status Records FoundNo Status Records FoundNo Status Records FoundNo Status Records FoundNo Status Records FoundNo Status Records FoundNo Status Records FoundNo Status Records FoundNo Status Records FoundNo Status Records FoundNo Status Records FoundNo Status Records Found INFORMATION SOURCE (unrecogn ized section and content) DATE CREATED AUTHOR 09/23/2017 [facility] DATE CREATED AUTHOR AUTHOR'S ORGANIZ ATION 10/23/2019 [facility] DATE CREATED AUTHOR AUTHOR'S ORGANIZ ATION 11/04/2019 [facility] DATE CREATED AUTHOR AUTHOR'S ORGANIZ ATION 08/21/2020 [facility] DATE CREATED AUTHOR AUTHOR'S ORGANIZ ATION 07/20/2021 [facility] DATE CREATED AUTHOR AUTHOR'S ORGANIZ ATION 10/20/2021 [facility] DATE CREATED AUTHOR AUTHOR'S ORGANIZ ATION 10/27/2021 [facility] DATE CREATED AUTHOR AUTHOR'S ORGANIZ ATION 07/26/2022 [facility] DATE CREATED AUTHOR AUTHOR'S ORGANIZ ATION 01/24/2024 [facility] DATE CREATED AUTHOR AUTHOR'S ORGANIZ ATION 10/09/2024 [facility] DATE CREATED AUTHOR AUTHOR'S ORGANIZ ATION 01/12/2025 [facility] DATE CREATED AUTHOR AUTHOR'S ORGANIZ ATION 01/23/2025 [facility] DATE CREATED AUTHOR AUTHOR'S ORGANIZ ATION 01/28/2025 [facility] DATE CREATED AUTHOR AUTHOR'S ORGANIZ ATION 01/30/2025 [facility] Reason for Visit (unrecogniz ed section and content) StatusReasonSpecialtyDiagnoses / ProceduresReferred By ContactReferred To ContactClosedRadiology Diagnoses Bilateral optic atrophy Procedures MR Brain/Orbit With And Without Contrast Nita Hernandez MD [address] [place] [address] ReasonCommentsHead Injurypt drove lawn tractor in a whole hitting head on knobs on control panel, abrasion on headNeck PainStatusReasonSpecialtyDiagnoses / ProceduresReferred By ContactReferred To ContactClosedRadiology Diagnoses Lumbar radiculopathy Procedures MRI lumbar spine without contrast Norman Michlele MD [address] [place] [address] StatusReasonSpecialtyDiagnoses / ProceduresReferred By ContactReferred To ContactClosedCardiology Diagnoses Atrioventricular septal defect (AVSD) Aortic valve stenosis, etiology of cardiac valve disease unspecified Procedures ECHO Complete 2D W Doppler W Color Wing Álvarez MD [address] [place] [address] StatusReasonSpecialtyDiagnoses / ProceduresReferred By ContactReferred To ContactClosed Diagnoses Atrioventricular septal defect (AVSD) Aortic valve stenosis, etiology of cardiac valve disease unspecified Procedures Holter monitor 48 hour Wing Álvarez MD [address] [place] [address] ReasonCommentsLeg SwellingStates has swelling to both feet and red spots. States left is worse than right.ReasonCommentsAnemianew patient consultationReason CommentsResultsReasonCommentsCare Coordinationappointment questionReasonComments Referral InformationGISpecialtyDiagnoses / ProceduresReferred By ContactReferred To ContactOccupational Therapy Diagnoses Extensor Tendon Repair Procedures Eval and treat Isrrael Greene MD [address] [place] [address] [facility] [address] [place] [address] Referral IDStatusReasonDecatur DateExpiration DateVisits RequestedVisits [id number] / ProceduresReferred By ContactReferred To Contact Diagnoses Shortness of breath Procedures Echo (TTE) complete (PRN contrast/bubble/strain/3D) ND ECHO TTHRC R-T 2D W/WOM-MODE COMPL SPEC&COLR D ND TTE W OR WO FOL WCON,DOPPLER Wing Álvarez MD [address] [place] [address] Referral IDStatusReasonSthailey DateExpiration DateVisits RequestedVisits [id number] Required - [id number] Check ReasonCommentsToenail VwarPyjpxzLgzqsgpzJkvjfb-ezOtxlibrkGasvziJtlxzcjfBiojbz-ru ReasonCommentsFoot UlcerRFollow-upRgt heel UlcerReasonCommentsHearing LossEAR DRUM PERFORATIONReasonCommentsSuspicious Skin LesionReasonCommentsFollow-upLt toenail pain Ordered Prescriptions (unrec ognized section and content) PrescriptionSigDispensedRefillsStart DateEnd Date furosemide (LASIX) 20 MG tablet Take 1 tablet by mouth daily for 15 days 15 tablet /09/2020 predniSONE (DELTASONE) 20 MG tablet Take 2 tablets by mouth daily for 5 days 10 tablet / Scheduled Active and Recently Administ ered Medications (unrecognized section and content) Medication Order// methylPREDNISolone sodium (SOLU-MEDROL) injection 125 mg (COMPLETED) [...] or prosecute any alcohol or drug abuse patient.[facility] HospitalIn the event this information is protected by the Federal Confidentiality of Alcohol and Drug Abuse Patient Records regulations: The Federal rules restrict any use of the information to criminally investigate or prosecute any alcohol or drug abuse patient.[facility] HospitalIn the event this information is protected by the Federal Confidentiality of Alcohol and Drug Abuse Patient Records regulations: The Federal rules restrict any use of the information to criminally investigate or prosecute any alcohol or drug abuse patient.[facility] HospitalIn the event this information is protected by the Federal Confidentiality of Alcohol and Drug Abuse Patient Records regulations: The Federal rules restrict any use of the information to criminally investigate or prosecute any alcohol or drug abuse patient.[facility] Care Teams (unrecognized sec tion and content) Team Status: Active Member Role Status Dates Faizan Bragg MD Primary Care Provider Active Team Status: Inactive Member Role Status Dates Faizan Bragg MD Primary Care Provide r, Attending Provider Active Start: November 19, 2023 End: November 19, 2023Team MemberRelationshipSpecialtyStart DateEnd Date Faizan Bragg MD [address] [place] [address] PCP - GeneralFamily Practice06/26/21Team MemberRelationshipSpecialtyStart DateEnd Date Faizan Bragg MD [address] [place] [address] PCP - GeneralFamily Practice06/26/21Team MemberRelationshipSpecialtyStart DateEnd Date Faizan Bragg MD [address] [place] [address] PCP - GeneralFamily Practice06/26/21Team MemberRelationshipSpecialtyStart [...] MD Primary Care Provider Active Mik [facility] ProviderActiveTeam MemberRelationshipSpecialty Start DateEnd Date Faizan Bragg MD PCP - GeneralFamily Medicine09/18/19Team MemberRelationshipSpecialtyStart DateEnd Date Faizan Bragg MD PCP - GeneralFamily Medicine09/18/19Team MemberRelationshipSpecialtyStart DateEnd Date Faizan Bragg MD PCP - GeneralFamily Medicine09/18/19Team MemberRelationshipSpecialtyStart DateEnd Date Faizan Bragg MD PCP - GeneralFamily Medicine09/18/19Team MemberRelationshipSpecialtyStart DateEnd Date Faizan Bragg MD PCP - Generalmily Medicine09/18/19Team MemberRelationshipSpecialtyStart DateEnd Date Faizan Bragg MD PCP - Generalmily Medicine09/18/19Team MemberRelationshipSpecialtyStart DateEnd Date Faizan Bragg MD PCP - Generalmily Medicine09/18/19Team MemberRelationshipSpecialtyStart DateEnd Date [facility]iz[facility] Bragg [facility]/19Team MemberRelationshipSpecialtyStart DateEnd Date Faizan Bragg MD [facility] - [facility]09/18/19Team MemberRelationshipSpecialtyStart DateEnd Date Faizan Bragg MD PCP - [facility] Medicine09/18/19 Team Status: Inactive Member Role Status Dates Faizan Bragg MD Primary Care Provider Active Start: January 28, 2024 End: January 28, 2024Prabha Marmolejo APRN TAN ROOM SUPERVISOR-CAttending ProviderActive Start: January 28, 2024 End: January 28, 2024Team MemberRelationshipSpecialtyStart DateEnd Date Faizan Bragg MD [facility]09/18/19Team MemberRelationshipSpecialtyStart DateEnd Date Faizan Bragg [...] DateEnd Date Faizan Bragg MD [address] [place] [facility] [address] PCP - GeneralFamily Medicine10/18/22Team MemberRelationshipSpecialtyStart DateEnd Date Faizan Bragg MD [address] [place] [facility] [id number] PCP - GeneralFamily Medicine10/18/22Team MemberRelationshipSpecialtyStart DateEnd Date Faizan Bragg MD PCP - GeneralFamily Medicine09/18/19Team MemberRelationshipSpecialtyStart DateEnd Date Faizan Bragg MD PCP - GeneralFamily Medicine09/18/19Team MemberRelationshipSpecialtyStart DateEnd Date Faizan Bragg MD [address] [place] [facility] [place] [address] PCP - GeneralFamily Medicine10/18/22Team MemberRelationshipSpecialtyStart DateEnd Date Faizan Bragg MD [address] [place] [facility] [place] [address] PCP - GeneralFamily Medicine10/18/22Team MemberRelationshipSpecialtyStart DateEnd Date Faizan Bragg MD PCP - GeneralFamily Medicine09/18/19Team MemberRelationshipSpecialtyStart DateEnd Date Faizan Bragg MD [address] [place] [facility] [place] [address] PCP - GeneralFamily Medicine10/18/22Team MemberRelationshipSpecialtyStart DateEnd Date Faizan Bragg MD [address] [place] [facility] [place] [phone] PCP - GeneralFamily Medicine10/18/22Team MemberRelationshipSpecialtyStart DateEnd Date [...] - GeneralFamily Medicine09/18/19Team MemberRelationshipSpecialtyStart DateEnd Date Faizan rBagg MD PCP - GeneralFamily Medicine09/18/19Team MemberRelationshipSpecialtyStart DateEnd [...] 2024 End: March 16, 2024Prabha Marmolejo APRN TAN ROOM SUPERVISOR-CAttending ProviderActive Start: March 16, 2024 End: March [...] 2024Team MemberRelationshipSpecialtyStart DateEnd Date Faizan Bragg MD [address] [place] [phone] PCP - [facility]10/18/22 Team Status: Inactive Member Role Status Dates Faizan Bragg MD Primary Care Provide r, Attending Provider Active Start: May 26, 2024 End: May 26, 2024 Team Status: Inactive Member Role Status Dates Faizan Bragg MD Primary Care Provide r, Attending Provider Active Start: June 21, 2024 End: June 21, 2024Team MemberRelationshipSpecialtyStart DateEnd Date Faizan Bragg MD PCP - [facility]09/18/19Team MemberRelationshipSpecialtyStart DateEnd Date Faizan Bragg MD [address] [place] [address] [facility] - [facility]07/15/24Team MemberRelationshipSpecialtyStart DateEnd Date Faizan Bragg MD [address] [place] [address] PCP - GeneralFamily Medicine07/15/24Team MemberRelationshipSpecialtyStart DateEnd Date Faizan Bragg MD PCP - GeneralFamily Medicine07/15/24Team MemberRelationshipSpecialtyStart DateEnd Date Faizan Bragg MD [address] [facility] [place] [address] PCP - GeneralFamily Medicine07/29/24Team MemberRelationshipSpecialtyStart DateEnd Date Faizan Bragg MD [address] [facility] [place] [address] PCP - GeneralFamily Medicine07/29/24Team MemberRelationshipSpecialtyStart DateEnd Date Faizan Bragg MD [address] [facility] [place] [address] PCP - GeneralFamily Medicine07/29/24Team MemberRelationshipSpecialtyStart DateEnd Date Faizan Bragg MD [address] [facility] [place] [address] PCP - GeneralFamily Vgdfaqcx34/1/16Team MemberRelationshipSpecialtyStart DateEnd Date Faizan Bragg MD [address] [facility] [place] [address] [place] [address] PCP - GeneralFamily Phnwppqo70/1/16Team MemberRelationshipSpecialtyStart DateEnd Date Faizan Bragg MD [address] [facility] [place] [address] PCP - GeneralFamily Medicine07/29/24Team MemberRelationshipSpecialtyStart DateEnd Date Faizan Bragg MD [address] [place] [address] [facility]07/29/24 Team Status: Inactive Member Role [...] 2024 End: December 22, 2024Prabha Marmolejo APRN TAN ROOM SUPERVISOR-CAttending ProviderActive Start: December 22, 2024 End: December 22, 2024Team MemberRelationshipSpecialtyStart DateEnd Date Faizan Bragg MD [facility]09/18/19Team MemberRelationshipSpecialtyStart DateEnd Date Faizan Bragg MD [facility] - [facility]09/18/19Team MemberRelationshipSpecialtyStart DateEnd Date Faizan Bragg MD [address] [place] [address] [facility] - [facility]07/29/24Team MemberRelationshipSpecialtyStart DateEnd Date Faizan Bragg MD [address] [place] [address] PCP - [facility]07/29/24Team MemberRelationshipSpecialtyStart DateEnd Date Faizan Bragg MD PCP - [facility]09/18/19 Team Status: Active Member Role/Relationship Status Dates Faizan Bragg MD Primary Care Provider Active Team Status: Inactive Member Role/Relationship Status Dates Faizan Bragg MD Primary Care Provider Active Start: December 08, 2024 End: December 08, 2024Robert Goins ProviderActiveStart: December 08, 2024 End: December 08, 2024 Team Status: Inactive Member Role/Relationship Status Dates Faizan Bragg MD Primary Care Provider Active Start: December 22, 2024 End: December 22, 2024Prabha Marmolejo APRN TAN ROOM SUPERVISOR-CAttending ProviderActive Start: December 22, 2024 End: December 22, 2024 Team Status: Inactive Member Role/Relationship Status Dates Faizan Bragg MD Primary Care Provider Active Start: February 07, 2025 End: February 07, 2025Robert Boyer ProviderActiveStart: February 07, 2025 End: February 07, 2025 Goals (unrecognized section and content) Goals may [...] BE BASED ON THE PRIMARY CLINICAL RECORDS. [employer] provides no warranty or guarantee of the accuracy or completeness of information in this document.
== END 2025-03-09 09:46 | disposition home or self-care (01) ==
LOC: WC 09:46
PROVIDERS: PCP Family Medicine; Visit Provider Physician Assistant
DX: I87.311 Chronic venous hypertension (idiopathic) with ulcer of right lower extremity (principal); L97.312 Non-pressure chronic ulcer of right ankle with fat layer exposed; R60.1 Generalized edema
CPT/HCPCS: G0463